=== PATIENT | male | born 1940 | race Caucasian/White ===

== ENCOUNTER → 2020-11-24 07:20 | Outpatient (CLI) | payer MEDICARE, OTHER, SELFPAY ==
--- NOTE | 2020-11-24 07:22 | ECHOD_ITS ---
Reason For Study: CAD/ PRE-OP Procedure This was a 2D Doppler, Color Flow transthoracic echocardiogram. Exam performed in department. Left Ventricle Normal LV size. Left ventricular systolic function is normal. The estimated ejection fraction is 55 %. No regional wall motion abnormalities noted. Right Ventricle Normal RV size. Normal systolic function. Atria Normal left atrium. Normal right atrium. Mitral Valve Normal mitral valve. Tricuspid Valve Normal tricuspid valve. Aortic Valve Normal aortic valve. Trisinus/trileaflet aortic valve. Pulmonic Valve Normal pulmonic valve. Great Vessels Normal aortic root. The pulmonary artery is normal size. Normal inferior vena cava. Pericardium/Pleural No pericardial effusion. MMode/2D Measurements & Calculations LVIDd: 3.5 cm IVSd: 1.1 cm Ao root diam: 3.2 cm LVIDs: 2.6 cm LVPWd: 0.70 cm RVDd: 2.9 cm FS: 24.0 % LAV(MOD-sp4): 35.7 ml LA A4 area: 15.5 cm2 LA dimension(2D): 4.2 cm RA A4 area: 11.2 cm2 Doppler Measurements & Calculations Lat Peak E' Lazaro: 7.9 cm/sec Med Peak E' Lazaro: 3.7 cm/sec Ao V2 max: 119.1 cm/sec Ao max P.7 mmHg LV V1 max: 124.8 cm/sec PA V2 max: 138.5 cm/sec TR max lazaro: 205.3 cm/sec LV V1 max P.2 mmHg TR max P.9 mmHg ECHO/Echo Complete Interpretation Summary Normal LV size. Left ventricular systolic function is normal. The estimated ejection fraction is 55 %. Structurally normal valves. Ordering Physician: Kp Puentes Referring Physician: Ida MOTT Performed By: Kendra Mahan, MANUELACS, RVT
--- NOTE | 2020-11-24 13:13 | STRESSREP ---
Stress Test Report Pharmacologic myocardial perfusion stress test. 80-year-old man for preoperative evaluation for bladder surgery. Stress protocol: Resting EKG demonstrates normal sinus rhythm with a rate of 84 bpm normal intervals are noted resting blood pressure is 158/72 mmHg occasional premature ventricular complexes noted. 0.4 mg of regadenoson was infused per usual protocol followed by rapid venous saline flush injection continuous EKG monitoring was performed. The maximum heart rate attained was 113 bpm which was 80% of maximum predicted heart rate the maximum workload was 1 metabolic equivalent. At rest there were no ST or T wave changes noted to suggest abnormal flow reserve and at peak infusion nonspecific ST changes were noted. The resting blood pressure was 158/72 with a final blood pressure 146/62 mmHg. Myocardial perfusion protocol. 10.3 mCi of technetium 99m sestamibi was injected at rest. 0.4 mg of regadenoson was infused per usual protocol. At peak infusion 35.7 mCi of technetium 99m sestamibi was injected stress images were obtained stress and rest images were reconstructed and compared in the short axis vertical long and horizontal long axis. Gated images were also obtained per Perfusion SPECT analysis: Review of the stress images demonstrate normal perfusion noted in the anterior wall septum with a moderate size defect noted in the mid and basal inferolateral wall. The resting images demonstrate a similar pattern with minimal improvement around the edges of the basal inferolateral wall. The above is suggestive of a previous mid and basal inferolateral infarct with minimal nichol-infarct ischemia. No significant areas of reversibility are noted. Gated SPECT analysis: The gated ejection fraction is 60%. Conclusion: Pharmacologic myocardial perfusion stress test with evidence of previous basal/mid inferolateral infarct. This is a medium size zone. Preserved ejection fraction. No significant ischemia noted.
== END ==
PROVIDERS: PCP Physician Assistant; Referring Provider Internal Medicine Cardiovascular Disease; Visit Provider Internal Medicine Cardiovascular Disease
DX: I25.10 Atherosclerotic heart disease of native coronary artery without angina pectoris (principal); I73.9 Peripheral vascular disease, unspecified; I10 Essential (primary) hypertension; Z95.5 Presence of coronary angioplasty implant and graft
CPT/HCPCS: 78452; 93017; 93306; A9500; A4216; J2785

== ENCOUNTER 2020-12-08 05:22 | Day surgery (SDC) | payer MEDICARE, OTHER, SELFPAY ==
[2020-12-02 11:36] LABS: Hematocrit 46.7 % (40-54); Hemoglobin 16.1 g/dL (13.0-16.5); Mean Corp Hgb Conc 34.5 g/dL (32-36); Mean Corpuscular Volume 89.8 fL (80-94); Platelet Count 245 K/mm3 (150-450); RBC Distribution Width CV 13.7 % (11.6-14.6); RBC Distribution Width SD 45.8 fl (35.1-43.9); White Blood Count 8.5 K/mm3 (4.4-11.0)
[2020-12-02 11:48] LABS: Prothrombin Time (Protime)PT. 12.8 SECONDS (11.7-14.9)
[2020-12-02 12:01] LABS: AST(SGOT) 15 U/L (15-37); Alanine Aminotransfer ALT/SGPT 26 U/L (16-61); Albumin, Serum 3.3 g/dL (3.2-5.0); Alkaline Phosphatase 97 U/L (45-117); Anion Gap 8 (5-15); BUN 22 mg/dL (7-18); BUN/Creat Ratio 25.1 RATIO (10-20); Calcium,Total 9.2 mg/dL (8.5-10.1); Chloride 111 mmol/L (98-107); Creatinine, Serum 0.88 mg/dL (0.70-1.30); EST Glomerular Filtration Rate 89 mL/min (>60); Est Glom Filt Rate - Afr Amer 108 mL/min (>60); Globulin 3.9 g/dL (2.2-4.2); Glucose 116 mg/dL (74-106); Potassium 3.9 mmol/L (3.5-5.1); Protein, Total 7.2 g/dL (6.4-8.2); Sodium Level 142 mmol/L (136-145)
[2020-12-08] VITALS (22 sets, daily range): BP systolic 133–185; BP diastolic 63–104; PULSE 58–79; RESP 14–20; TEMP 36.2–37.6; O2SAT 91–100; BMI 25.7
[2020-12-08] MEDS: Lactated Ringers 1,000 ML 100 ML IV ×3 (06:05→16:21)
--- NOTE | 2020-12-08 07:30 | PROST_PTH ---
PATIENT: RAMONITA EL [place] [facility] [id number] AGE/SX: 80/M ROOM: RE12/08/[address]: Dr. Justice Johnson MD : 1940 BED: DIS: 12/09/2020 SPEC #: [id number] RECD: 12/08/20 12:52 STATUS: NATHAN RENEE #: [id number] SOLOMON: 12/08/20 07:[address]: Justice Johnson DEPT: SURGICAL PATHOLOGY RECD BY: Tracy Jacitno ENTERED: 12/09/20 09:22 SP TYPE: PROSTATE OTHR DR: KRISTI Grimaldo Tissues: Prostate, NOS Procedures: Surgery Specimen Level IV HEADER OPERATION: Laparoscopic robotic simple prostatectomy, removal of bladder PRE-OP DIAGNOSIS: BPH with lower urinary symptoms, bladder calculi TISSUE SUBMITTED: Prostate tissue MICROSCOPIC DIAGNOSIS Prostate, prostatectomy: Benign nodular hyperplasia, glandular and stromal types. Chronic inflammation with focal acute inflammation. Urothelium with chronic inflammation. No evidence of malignancy. AM:adelita 12/10/2020 MICROSCOPIC DESCRIPTION Slides are reviewed. GROSS DESCRIPTION Received in fixative is one container labeled with the patient's name and designated prostate tissue. The specimen consists of a simple prostatectomy specimen weighing 10 gm and measuring 3 x 3 x 2 cm. The specimen could not be oriented. Sections do not reveal any mass lesion and reveal solid cut surfaces. Also present in the container is a detached piece of mcknight soft tissue measuring 1 x 0.5 x 0.2 cm. The prostate is inked, serially sectioned and submitted entirely in eight cassettes from one end to another end. The detached piece of tissue is present in cassette 1. / SJ:adelita 12/09/20 TC:3 CPT: 12027
[2020-12-08] MEDS: Cefazolin 2 GM in 0.9% Normal Saline 100 ML IV (07:31)
--- NOTE | 2020-12-08 09:39 | DCINST_ITS ---
Discharge Instructions Diet Discharge Diet: No restrictions Activity Discharge Activity: May Not Drive (while taking narcotic pain medications.) Dressing / Incision Call your doctor if you observe: Fever of 101 or Higher Catheter: Cuello to leg bag and Cuello to large bag Drain: Stovall Follow Up Care Please Follow Up With: Justice Johnson MD When: Call [phone] for an appointment Test Results: Test results from this visit will be discussed in further detail at your follow-up appointment, if applicable. Discharge Plan Admission Primary Reason for Your Visit: prostatectomy Attending Provider: Justice Johnson Primary Care Provider: Ida Hatfield Discharge Orders/Prescriptions Prescriptions: New ibuprofen 600 mg tablet 600 mg PO Q6H PRN (Reason: pain) Qty: 20 RF: 0 ciprofloxacin HCl [Cipro] 500 mg tablet 500 mg PO BID Qty: 14 RF: 0 Continued hydroxyzine HCl 25 mg tablet 25 mg PO DAILY PRN (Reason: rash) RF: 0 metoprolol tartrate 100 mg tablet 100 mg PO BID RF: 0 pantoprazole [Protonix] 20 mg tablet,delayed release (DR/EC) 20 mg PO DAILY RF: 0 tamsulosin [Flomax] 0.4 MG capsule 0.4 mg PO DAILY RF: 0 amlodipine 10 MG tablet 10 mg PO DAILY RF: 0 Held clopidogrel 75 MG tablet 75 mg PO DAILY RF: 0 Hold Instructions: Resume on 12/29/20. Referrals / Follow Up: Justice Johnson MD [STAFF PHYSICIAN] - Ida Hatfield PA [Primary Care Provider] - Disposition Disposition (needs filled in before D/C Order can be placed): Home, Self Care
--- NOTE | 2020-12-08 09:39 | PCM.HP.STD ---
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 Prostate disease Renal calculi Smoker Tobacco dependence Home Medications amlodipine 10 mg PO DAILY 05/02/16 [History Last Taken 12/08/20 04:00] clopidogrel 75 mg PO DAILY 05/02/16 [History Last Taken 11/30/20] tamsulosin [Flomax] 0.4 mg PO DAILY 05/02/16 [History Last Taken 12/07/20] hydroxyzine HCl 25 mg tablet 25 mg PO DAILY PRN 11/09/20 [History Last Taken Unknown] metoprolol tartrate 100 mg tablet 100 mg PO BID tab 11/09/20 [History Last Taken 12/08/20 04:00] pantoprazole 20 mg tablet,delayed release 20 mg PO DAILY 11/09/20 [History Last Taken 12/07/20] ciprofloxacin HCl [Cipro] 500 mg PO BID #14 tab 12/08/20 [Rx Last Taken Unknown] ibuprofen 600 mg PO Q6H PRN #20 tab 12/08/20 [Rx Last Taken Unknown] Allergy/AdvReac Type Severity Reaction Status Date / Time Penicillins Allergy Hives Verified 12/08/20 05:50 Surgical History (Updated 12/01/20 @ 13:03 by Maria A Roberson) History of angioplasty of peripheral vessel (09/28/09) History of coronary artery stent placement (08/10/06) Social History Smoking Status: Current some day smoker tobacco type: cigarettes Vital Signs Vital Signs Vital Signs: 12/08/20 05:51 12/08/20 05:54 Temperature 97.5 F L Temperature Source Temporal Pulse Rate 58 L Respiratory Rate 18 Respiratory Pattern Normal Blood Pressure 156/66 H Blood Pressure Mean 96 Blood Pressure Source Monitor Blood Pressure Position Semi-Fowlers Blood Pressure Location Right Arm Pulse Ox 97 Oxygen Delivery Method Room Air Weight Weight: 74.389 kg Body Mass Index (BMI) 25.7 Results Lab / Micro Data Result Diagrams: 12/02/20 10:24 12/02/20 10:24
--- NOTE | 2020-12-08 09:40 | OP.PCM_ITS ---
Report of Operation Date of Procedure: 12/08/20 Pre-Operative Diagnosis: BPH with bladder stone Post-Operative Diagnosis: same Surgery/Procedure Performed:: laparoscopic robotic assisted prostatectomy and removal of bladder stone. Description of Surgical Findings:: Patient presented to the hospital for treatment of his prostate and bladder stone with prostatectomy. We discussed the risk of the surgery including the risk of general anesthetic, risk of bleeding, risk of infection, and risk of formation of hernia either incisional hernia or inguinal hernia. After long discussion with the patient the preoperative setting and also reviewed this in the preop area patient signed the consent form and we proceeded Patient was taken back to the operating room he was identified, time out procedure was performed and he was placed supine on the table he underwent general anesthesia with intubation. The abdomen was shaved prepped and draped in usual sterile fashion as well as the penis and testicles. A 16 Indonesian catheter was placed into the bladder with clear return of urine. I then made an incision in the umbilicus and dissected down to the fascia advance a Veress needle into the peritoneal cavity and insufflated the peritoneal cavity with CO2 gas. I then placed a 12 mm trocar above the umbilicus. I then visualized the placement of the rest of the trochars, I placed a right arm robotic trocar, and air seal trocar, a suction port 5 mm trocar. And on the left side I placed 2 robotic arms. Once all the trochars were in placed the patient was put in steep Trendelenburg. And the robot was docked the arms were docked and then I placed the 0 degree camera through the robotic arm and also used a 30 degree camera during certain parts of the case. I used scissors in the right arm, prograsp in the third arm, and a bipolar in the second arm. Initial dissection was to free the sigmoid colon off the lateral wall this was done by meticulously dissecting off the peritoneum and the sigmoid colon off the left lateral wall. This then allowed the prograsp to retract the sigmoid colon out of the pelvis. I then went below the bladder and identified the vas deferens incised the peritoneum over the vas deferens and traced the vas deferens below the bladder to the prostate and identified the right and left vasa deferens. Below behind the vas deferens then the seminal vesicles were identified. I then dissected the bruce inal vesicle free using pinpoint electrocautery and then we identified the other seminal vesicle and then dissected this using pinpoint electrocautery I then elevated the vas deferens and several vesicles off the prostate and was able to sweep the Denonvilliers' fascia off the prostate posteriorly all the way up to the apex of the prostate. Working laterally I made sure I went as lateral as possible to sweep the Denonilliers' fascia off the posterior aspect of the prostate and worked my way back, I then transected the vas deferens and the left and right side the seminal vesicles were then dissected free. And then I pulled out of the pelvis. The bladder was incised in the midline and the bladder was retracted laterally both sides using the Prolene stitch with a Peter needle. Once the bladder was open then I went in and remove the very large bladder stone and put her in an Endo Catch bag the Endo Catch bag was then removed later on in the case. We then identified the prostate the lateral edges of the prostate was identified and then we enucleated the prostate from the subcapsular space prostate was completely enucleated and then the had a nice wide open channel from the bladder neck into the urethra I did not have to do a bladder neck reconstruction and no anastomosis was done since the prostate was enucleated, I then placed a new catheter into the bladder, an Indonesian platinum tip catheter flushed the bladder and there was no leakage from the anastomosis I put 10 cc in the balloon and pulled it up pulled back gently. I then ensured that there was no bleeding from the dorsal vein complex no bleeding from the neurovascular bundles FloSeal was placed as necessary once hemostasis was ensured and adequate then I placed the bladder back in position in the pelvis the prostate was exchanged to the camera port I closed the air seal port with a 10 12 Armando Lewis stitch. And the extracted the prostate through the umbilicus. The robot was undocked all the ports were removed under direct visualization then closed the extraction site with 0 Vicryl with a CT1 needle once the extraction site was closed. I then closed all the incision with subcuticular stitches with 4-0 Monocryl and then bandages were placed on the incisions catheter was flushed to make sure it was draining well there was no clots and it was crystal clear patient's anesthetic was reversed he was extubated and taken back to the PACU in stable condition all the needles and sponges and instruments were accounted for. Blood loss was minimal and the drain was a 18 Indonesian Flores catheter. No other surgical drain was left. I was present during the entire case. Type of Anesthesia: General Drains: 20 fr flores
--- NOTE | 2020-12-08 16:47 | CASEMGMT ---
Surgery scheduling form and surgery schedule indicate procedure to be SDC. Noted inpatient order placed. TC to Dr. Johnson who states SDC status was intended and plan for pt to be dc'd tomorrow. Clarification order placed.
[2020-12-08] MEDS: Tamsulosin HCl 0.4 MG Capsule PO (17:14)
[2020-12-08] MEDS: 0.9% Normal Saline 1,000 ML 150 ML IV (17:14)
[2020-12-08] MEDS: Ibuprofen 600 MG Tablet PO ×2 (17:14→23:29)
[2020-12-08] MEDS: 0.9% Saline Lock 10 ML Syringe IV (17:15)
[2020-12-08] MEDS: Pantoprazole Sodium 20 MG Tablet PO (18:27)
[2020-12-08] MEDS: Ciprofloxacin 400 MG/200 ML BAG 200 MG IV (22:33)
[2020-12-08] MEDS: Metoprolol Tartrate 100 MG Tablet PO (22:33)
[2020-12-09] MEDS: 0.9% Normal Saline 1,000 ML 150 ML IV ×2 (00:27→06:53)
[2020-12-09 02:26] VITALS: BP 128/56; PULSE 60; RESP 16; TEMP 36.8; O2SAT 93
[2020-12-09 06:05] VITALS: BP 144/58; PULSE 60; RESP 16; TEMP 37; O2SAT 92
[2020-12-09] MEDS: Ibuprofen 600 MG Tablet PO (06:20)
[2020-12-09 08:00] VITALS: BP 155/58; PULSE 67; RESP 16; TEMP 36.7; O2SAT 91
[2020-12-09] MEDS: Ciprofloxacin 400 MG/200 ML BAG 200 MG IV (09:01)
[2020-12-09 09:02] VITALS: BP 155/58; PULSE 67
[2020-12-09] MEDS: Metoprolol Tartrate 100 MG Tablet PO (09:02)
[2020-12-09] MEDS: amLODIPine 10 MG Tablet PO (09:02)
[2020-12-09] MEDS: Pantoprazole Sodium 20 MG Tablet PO (09:05)
[2020-12-09 10:00] VITALS: BP 156/66
--- NOTE | 2020-12-09 11:06 | PHA.DC.MC ---
Pharmacy Service has performed discharge medication reconciliation and counseling for this patient. The patient was counseled on the following discharge medications and changes in medications for homegoing were reviewed. 1. CIPRO 2. IBUPROFEN The Reason for Use, instructions for use, and potential side effects were reviewed for all new medications. The patient's questions regarding all of their medications were answered. The patient was able to verbally demonstrate an understanding of their discharge medications. Home Medications amlodipine 10 mg PO DAILY 05/02/16 clopidogrel 75 mg PO DAILY 05/02/16 tamsulosin [Flomax] 0.4 mg PO DAILY 05/02/16 hydroxyzine HCl 25 mg tablet 25 mg PO DAILY PRN 11/09/20 metoprolol tartrate 100 mg tablet 100 mg PO BID tab 11/09/20 pantoprazole 20 mg tablet,delayed release 20 mg PO DAILY 11/09/20 ciprofloxacin HCl [Cipro] 500 mg PO BID #14 tab 12/08/20 ibuprofen 600 mg PO Q6H PRN #20 tab 12/08/20 The patient's discharge medication list was reviewed for discrepancies and discrepancies were resolved.
== END 2020-12-09 07:28 | disposition home or self-care (01) ==
LOC: SDC 05:23 → AC 05:23 → MS3 15:37
PROVIDERS: Anesthesiology; PCP Physician Assistant; Referring Provider Urology; Visit Provider Urology
PROC: 0VT04ZZ Resection of Prostate, Percutaneous Endoscopic Approach (ICD-10-PCS; CPT 55866; principal; 2020-12-08 07:10)
DX: N21.0 Calculus in bladder (principal); N41.0 Acute prostatitis; N41.1 Chronic prostatitis; N40.1 Benign prostatic hyperplasia with lower urinary tract symptoms; I25.10 Atherosclerotic heart disease of native coronary artery without angina pectoris; J44.9 Chronic obstructive pulmonary disease, unspecified; I11.9 Hypertensive heart disease without heart failure; K21.9 Gastro-esophageal reflux disease without esophagitis; I73.9 Peripheral vascular disease, unspecified; F17.210 Nicotine dependence, cigarettes, uncomplicated; Z79.899 Other long term (current) drug therapy; Z23 Encounter for immunization
CPT/HCPCS: 00870; 51050; 55899; 36415; 80048; 80076; 85027; 85610; 85730; 88305; 88309; G0008; J7030; J7120; 90686; A4216; J0744

== ENCOUNTER 2021-05-20 13:40 | Emergency (ER) | payer MEDICARE, OTHER, SELFPAY ==
[2021-05-20 13:41] VITALS: BP 160/82; PULSE 78; RESP 16; TEMP 36.8; O2SAT 96; BMI 24.3
--- NOTE | 2021-05-20 14:32 | EX.ED.UPPERE ---
HPI History of Present Illness HPI Narrative: Patient presents with a burn to his right hand that occurred today. Patient states he was using a Rototiller and lost his balance when he was trying to start the Rototiller. Patient states he put his hand out to catch himself and put his hand on the hot motor. Patient describes his pain as burning. Patient denies any paresthesias or weakness. Patient states I seem to help with it. Patient is unsure of his last tetanus. Patient denies any other injuries. Chief Complaint: Burn Informant: patient Onset/Context/Timing Onset: Today Context: Sudden Onset Timing: Continuous Worsened by: Nothing Relieved by: Ice Associated Symptoms Associated Symptoms: Negative for Parasthesia, Weakness and Loss of Funtion Narrative Tetanus Immunization: Unknown PFSH [facility] Medical History Alcohol use Alcoholism Atherosclerosis of coronary artery without angina pectoris Chronic pancreatitis COPD (chronic obstructive pulmonary disease) Easy bruising Encounter for pre-operative cardiovascular clearance Essential hypertension Excessive bleeding Gastric reflux 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 Prostate disease Renal calculi Smoker Tobacco dependence Home Medications amlodipine 10 mg PO DAILY 05/02/16 [History Last Taken 12/08/20 04:00] clopidogrel 75 mg PO DAILY 05/02/16 [History Last Taken 11/30/20] tamsulosin [Flomax] 0.4 mg PO DAILY 05/02/16 [History Last Taken 12/07/20] hydroxyzine HCl 25 mg tablet 25 mg PO DAILY PRN 11/09/20 [History Last Taken Unknown] metoprolol tartrate 100 mg tablet 100 mg PO BID tab 11/09/20 [History Last Taken 12/08/20 04:00] pantoprazole 20 mg tablet,delayed release 20 mg PO DAILY 11/09/20 [History Last Taken 12/07/20] ciprofloxacin HCl [Cipro] 500 mg PO BID #14 tab 12/08/20 [Rx Last Taken Unknown] ibuprofen 600 mg PO Q6H PRN #20 tab 12/08/20 [Rx Last Taken Unknown] Allergy/AdvReac Type Severity Reaction Status Date / Time Penicillins Allergy Hives Verified 05/20/21 13:41 Surgical History History of angioplasty of peripheral vessel (09/28/09) History of coronary artery stent placement (08/10/06) Social History (Updated 05/20/21 @ 14:[address] Mello Briceño DO) Smoking Status: Heavy Smoker (>10/day) ROS ROS ED Constitutional Constitutional ED: Denies chills or fever(s) Eyes Eyes: Denies blurry vision or change in vision ENT ENT ED: Denies rhinorrhea or sore throat Cardiovascular Cardiovascular: Denies chest pain or palpitations Respiratory/Chest Respiratory/Chest: Denies cough or dyspnea Gastrointestinal Gastrointestinal: Denies nausea or vomiting Genitourinary Genitourinary ED: Denies dysuria or hematuria Musculoskeletal Musculoskeletal: Denies back pain or neck pain Integumentary Denies abscess or rash Neurologic Neurologic: Denies headache(s) or weakness Allergic/Immunologic Allergic/Immunologic ED: Denies mouth swelling or urticaria EXAM Physical Exam Const Vital Signs: 05/20/21 13:41 05/20/21 14:21 Temperature 98.3 F Temperature Source Temporal Pulse Rate 78 Respiratory Rate 16 Respiratory Effort Normal Non-Labored Respiratory Depth Normal Respiratory Pattern Normal Blood Pressure 160/82 H Blood Pressure Mean 108 Pulse Ox 96 Oxygen Delivery Method Room Air Positive well nourished and well developed General Appearance ED: well developed and NAD Neck full ROM and supple Extremity full ROM Neuro oriented x3, CN's II-XII intact bilaterally, moves all extremities, no focal motor deficits and no sensory deficits noted Sensorium / Orientation: alert Skin Skin Narrative: There is some erythema and tenderness over the palmar aspect of the right hand over the thenar eminence. There is no blister formation noted. Sensation was intact to light touch in all areas of the burn. There is no discharge or drainage. There is full range of motion of the right hand. Capillary refill is less than 2 seconds in all digits. MDM MDM MDM Narrative Medical decision making narrative: Patient was given a tetanus booster. Patient was given a bacitracin dressing. Patient was instructed to change dressing twice daily. Patient was instructed to follow-up with his primary care physician in 5 to 7 days. Patient was instructed return if worse in any way. Patient understood and was agreeable with the plan. All questions were answered. Discharge Plan Triage Chief Complaint: Burn ED Provider: Mello Briceño Dx/Rx/DC Orders Clinical Impression: First degree burn of palm of right hand, Tobacco dependence, Essential hypertension Instructions: ED Burn, First-Degree Prescriptions: No Action hydroxyzine HCl 25 mg tablet 25 mg PO DAILY PRN (Reason: rash) RF: 0 metoprolol tartrate 100 mg tablet 100 mg PO BID RF: 0 pantoprazole [Protonix] 20 mg tablet,delayed release (DR/EC) 20 mg PO DAILY RF: 0 clopidogrel 75 MG tablet 75 mg PO DAILY RF: 0 Hold Instructions: Resume on 12/29/20. tamsulosin [Flomax] 0.4 MG capsule 0.4 mg PO DAILY RF: 0 amlodipine 10 MG tablet 10 mg PO DAILY RF: 0 ibuprofen 600 mg tablet 600 mg PO Q6H PRN (Reason: pain) Qty: 20 RF: 0 ciprofloxacin HCl [Cipro] 500 mg tablet 500 mg PO BID Qty: 14 RF: 0 Primary Care Provider: Ida Hatfield Referrals: Ida Hatfield, PA [Primary Care Provider] - 3-5 Days Disposition Disposition: Home, Self Care
[2021-05-20] MEDS: Diphth,Pertuss(Acell),Tet Vac 0.5 ML Vial IM (14:48)
[2021-05-20 14:52] VITALS: PULSE 82; RESP 17; O2SAT 98
== END 2021-05-20 15:10 | disposition home or self-care (01) ==
PROVIDERS: Emergency Provider Emergency Medicine; PCP Physician Assistant; Visit Provider Emergency Medicine
DX: T23.151A Burn of first degree of right palm, initial encounter (principal); J44.9 Chronic obstructive pulmonary disease, unspecified; I10 Essential (primary) hypertension; F17.200 Nicotine dependence, unspecified, uncomplicated; I25.10 Atherosclerotic heart disease of native coronary artery without angina pectoris; K21.9 Gastro-esophageal reflux disease without esophagitis; X17.XXXA Contact with hot engines, machinery and tools, initial encounter; Y93.89 Activity, other specified; Y99.9 Unspecified external cause status; Y92.9 Unspecified place or not applicable; Z79.899 Other long term (current) drug therapy; I25.2 Old myocardial infarction; N40.1 Benign prostatic hyperplasia with lower urinary tract symptoms; N13.8 Other obstructive and reflux uropathy; Z79.02 Long term (current) use of antithrombotics/antiplatelets; Z23 Encounter for immunization
CPT/HCPCS: 90471; 90715; 99283

== ENCOUNTER 2021-12-31 18:38 | Emergency (ER) | payer MEDICARE, OTHER, SELFPAY ==
[2021-12-31] VITALS (10 sets, daily range): BP systolic 111–146; BP diastolic 61–82; PULSE 60–88; RESP 13–20; TEMP 36.4; O2SAT 88–93; BMI 22.1
--- NOTE | 2021-12-31 19:18 | EX.ED.SAOD ---
HPI History of Present Illness Chief Complaint: Overdose Informant: patient Limited: intoxicated Onset/Context/Timing Onset: Today Context: Gradual Onset Timing: Continuous Worsened by: Alcohol Relieved by: Nothing Associated Symptoms Associated Symptoms: Positive for vomiting* and suicidal ideation; Negative for diarrhea*, fever*, rash*, seizure, tremor, palpatations, change in mental status or homicidal ideation Narrative Narrative: Patient presents with overdose on alcohol and hydroxyzine. Patient states he took several hydroxyzine tablets. Patient does not know exactly how many. Patient states he took these because he wanted to kill himself. Patient states he no longer feels that way. Patient states his depression symptoms were worse with alcohol. Patient states he has drank a lot of alcohol tonight. Patient admits to some nausea and vomiting. Patient is unsure if he vomited the hydroxyzine tablets up. 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 Prostate disease Renal calculi Smoker Tobacco dependence Home Medications amlodipine 10 mg tablet 10 mg PO DAILY 05/02/16 [History Last Taken 12/08/20 04:00] clopidogrel 75 mg tablet 75 mg PO DAILY 05/02/16 [History Last Taken 11/30/20] tamsulosin 0.4 mg capsule (Flomax) 0.4 mg PO DAILY 05/02/16 [History Last Taken 12/07/20] hydroxyzine HCl 25 mg tablet 25 mg PO DAILY PRN rash 11/09/20 [History Last Taken Unknown] metoprolol tartrate 100 mg tablet 100 mg PO BID 11/09/20 [History Last Taken 12/08/20 04:00] pantoprazole 20 mg tablet,delayed release (Protonix) 20 mg PO DAILY 11/09/20 [History Last Taken 12/07/20] ibuprofen 600 mg tablet 600 mg PO Q6H PRN pain #20 tabs 12/08/20 [Rx Last Taken Unknown] Allergy/AdvReac Type Severity Reaction Status Date / Time Penicillins Allergy Hives Verified 12/31/21 18:46 Surgical History History of angioplasty of peripheral vessel (09/28/09) History of coronary artery stent placement (08/10/06) Social History Smoking Status: Heavy Smoker (>10/day) ROS ROS ED Review of Systems ROS Unobtainable: due to mental condition Cardiovascular Cardiovascular: Denies chest pain Respiratory/Chest Respiratory/Chest: Denies cough or dyspnea Gastrointestinal Gastrointestinal: Reports nausea and vomiting Genitourinary Genitourinary ED: Denies dysuria or urinary frequency Musculoskeletal Musculoskeletal: Denies back pain or neck pain Integumentary Denies abscess or rash Neurologic Neurologic: Denies headache(s) or weakness Psychiatric Psychiatric: Reports suicidal ideation EXAM Physical Exam Const Vital Signs: 12/31/21 18:40 12/31/21 18:49 12/31/21 19:33 Temperature 97.6 F L Temperature Source Temporal Pulse Rate 88 60 68 Respiratory Rate 20 H 16 18 Blood Pressure 146/68 H 116/82 H Blood Pressure Mean 94 93 Pulse Ox 93 92 Oxygen Delivery Method Room Air Room Air Oxygen Flow Rate (L/min) 12/31/21 19:15 12/31/21 20:15 12/31/21 21:15 Temperature Temperature Source Pulse Rate 61 63 60 Respiratory Rate 17 13 13 Blood Pressure 122/66 H 122/61 H 111/64 Blood Pressure Mean 84 81 79 Pulse Ox 92 89 91 Oxygen Delivery Method Room Air Room Air Nasal Cannula Oxygen Flow Rate (L/min) 2 12/31/21 22:58 Temperature Temperature Source Pulse Rate 71 Respiratory Rate 15 Blood Pressure Blood Pressure Mean Pulse Ox Oxygen Delivery Method Oxygen Flow Rate (L/min) Positive well nourished and well developed General Appearance ED: well developed and NAD HEENT Reports dry mucous membranes Mouth ED: Yes dry mucous membranes Mouth: dry mucous membranes Eyes PERRL and EOMs intact bilaterally Neck supple and no JVD Resp normal respiratory effort Auscultation: diminished lung sounds Cardio regular rate and regular rhythm GI soft to palpation and non-tender Neuro CN's II-XII intact bilaterally and no sensory deficits noted Sensorium / Orientation: alert Motor Exam: strength 5/5 throughout Psych Mood & Affect: depressed MDM MDM MDM Narrative Medical decision making narrative: Patient was given a DuoNeb aerosol here. Patient was given IV fluids. CBC shows a mild leukocytosis of 13.2. Comprehensive metabolic profile was within normal limits. Serum alcohol level was elevated at 136. Urine tox screen was negative. Portable 1 view chest x-ray was obtained. On my interpretation, lung dillard are clear. There is normal cardiac silhouette. Bony thorax is normal. There is no acute process noted. Radiologist also interpreted the x-ray and agrees. Patient fell asleep here in the room with sleeping, his oxygen saturation dropped to 89. Patient was placed on nasal cannula at 2 L. Patient was given a repeat albuterol aerosol. I woke the patient up. I turned patient's oxygen off. His oxygen saturation went from 94 to 91. Patient will be ambulated with a pulse oximeter. If the patient is able to maintain oxygen saturation above 90% while walking, he will be medically cleared for psychiatric evaluation. Lab Data Attestation: I reviewed the patient's lab results. Labs: Laboratory Results - last 24 hr 12/31/21 12/31/21 12/31/21 19:45 19:45 19:45 WBC 13.2 H RBC 4.96 Hgb 16.7 H Hct 45.4 MCV 91.5 MCH 33.7 H MCHC 36.8 H RDW Std Deviation 41.6 RDW Coeff of Krishna 12.5 Plt Count 213 MPV 10.9 Immature Gran % (Auto) 0.400 Neut % (Auto) 87.9 H Lymph % (Auto) 7.2 L [place] % (Auto) 3.7 Eos % (Auto) 0.3 Baso % (Auto) 0.5 Absolute Neuts (auto) 11.6 H Absolute Lymphs (auto) 0.95 Nucleated RBC % 0 Sodium 141 Potassium 3.6 Chloride 107 Carbon Dioxide 23.0 Anion Gap 11 BUN 20 H Creatinine 1.00 Estim Creat Clear Calc 63.42 Est GFR (MDRD) Af Amer 92 Est GFR (MDRD) Non-Af 76 BUN/Creatinine Ratio 20.0 Glucose 150 H Calcium 9.4 Total Bilirubin 0.40 AST 18 ALT 27 Alkaline Phosphatase 85 Total Protein 6.7 Albumin 3.4 Globulin 3.3 Albumin/Globulin Ratio 1.0 Urine Opiates Screen Urine Methadone Screen Ur Barbiturates Screen Ur Phencyclidine Scrn Ur Amphetamines Screen MDMA (Ecstasy) Screen U Benzodiazepines Scrn Urine Cocaine Screen U Cannabinoids Screen Ur Drug Screen Comment Ethyl Alcohol 136.0 12/31/21 21:32 WBC RBC Hgb Hct MCV MCH MCHC RDW Std Deviation RDW Coeff of Krishna Plt Count MPV Immature Gran % (Auto) Neut % (Auto) Lymph % (Auto) [place] % (Auto) Eos % (Auto) Baso % (Auto) Absolute Neuts (auto) Absolute Lymphs (auto) Nucleated RBC % Sodium Potassium Chloride Carbon Dioxide Anion Gap BUN Creatinine Estim Creat Clear Calc Est GFR (MDRD) Af Amer Est GFR (MDRD) Non-Af BUN/Creatinine Ratio Glucose Calcium Total Bilirubin AST ALT Alkaline Phosphatase Total Protein Albumin Globulin Albumin/Globulin Ratio Urine Opiates Screen NEGATIVE Urine Methadone Screen NEGATIVE Ur Barbiturates Screen NEGATIVE Ur Phencyclidine Scrn NEGATIVE Ur Amphetamines Screen NEGATIVE MDMA (Ecstasy) Screen NEGATIVE U Benzodiazepines Scrn NEGATIVE Urine Cocaine Screen NEGATIVE U Cannabinoids Screen NEGATIVE Ur Drug Screen Comment Ethyl Alcohol Radiography Diagnostic Testing: Clinical Impression(s) from Imaging Studies Chest X-Ray 12/31/21 19:55 IMPRESSION: No radiographic evidence of acute cardiopulmonary disease. Electronically Signed: Ashok Babin MD at 20:38 EST , Discharge Plan Triage Chief Complaint: Overdose ED Provider: Mello Briceño Dx/Rx/DC Orders Prescriptions: No Action hydroxyzine HCl 25 mg tablet 25 mg PO DAILY PRN (Reason: rash) metoprolol tartrate 100 mg tablet 100 mg PO BID Label Comments: TAKE 1 TABLET BY MOUTH TWICE DAILY. pantoprazole [Protonix] 20 mg tablet,delayed release (DR/EC) 20 mg PO DAILY clopidogrel 75 MG tablet 75 mg PO DAILY Hold Instructions: Resume on 12/29/20. tamsulosin [Flomax] 0.4 MG capsule 0.4 mg PO DAILY amlodipine 10 MG tablet 10 mg PO DAILY ibuprofen 600 mg tablet 600 mg PO Q6H PRN (Reason: pain) Qty: 20 0RF Primary Care Provider: Ida Hatfield Referrals: Ida Hatfield PA [Primary Care Provider] -
[2021-12-31] MEDS: Ipratropium/Albuterol Sulfate 3 ML AMPUL.NEB INHALATION (19:30)
[2021-12-31] MEDS: 0.9% Normal Saline 1,000 ML 1000 ML IV (19:35)
[2021-12-31 19:53] LABS: Absolute Lymphocyte Count 0.95 X10^3/uL (0.83-4.51); Absolute Neutrophil Count 11.6 X10^3/uL (2.0-7.7); Basophil# 0.06 X10^3/uL; Basophil% 0.5 % (0-1); Eosinophil# 0.04 X10^3/uL; Eosinophils% 0.3 % (0-5); Hematocrit 45.4 % (40-54); Hemoglobin 16.7 g/dL (13.0-16.5); Lymphocyte # 0.95 X10^3/ul (0.83-4.51); Lymphocyte % 7.2 % (19-41); Mean Corp Hgb Conc 36.8 g/dL (32-36); Mean Corpuscular Hgb 33.7 pg (27.0-32.0); Mean Corpuscular Volume 91.5 fL (80-94); Mean Platelet Vol. 10.9 fl (6.2-12.0); Monocyte# 0.49 X10^3/uL; Monocyte% 3.7 % (0-10); NRBC Flagged by Analyzer 0 % (0-5); Neutrophil % 87.9 % (47-70); Platelet Count 213 K/mm3 (150-450); RBC Distribution Width CV 12.5 % (11.6-14.6); RBC Distribution Width SD 41.6 fl (35.1-43.9); Red Blood Count 4.96 M/mm3 (4.6-6.2); White Blood Count 13.2 K/mm3 (4.4-11.0)
--- NOTE | 2021-12-31 19:55 | RAD_ITS ---
EXAM: XR CHEST, 1 VIEW CLINICAL INDICATION: Cough TECHNIQUE: Frontal view of the chest. This report was created using [employer] report generation technology. COMPARISON: 05/03/2013 FINDINGS: LUNGS AND PLEURAL SPACES: Unremarkable. No consolidation or edema. No pneumothorax. No effusion. HEART: Unremarkable. Cardiac silhouette not enlarged. MEDIASTINUM: Central airways and mediastinal contour are unremarkable. BONES/JOINTS: Unremarkable. SOFT TISSUES: Unremarkable. RAD/Chest 1 View (Portable) IMPRESSION: No radiographic evidence of acute cardiopulmonary disease. Electronically Signed: Ashok Babin MD at 20:38 EST ,
[2021-12-31 20:13] LABS: AST(SGOT) 18 U/L (15-37); Alanine Aminotransfer ALT/SGPT 27 U/L (16-61); Albumin, Serum 3.4 g/dL (3.2-5.0); Alkaline Phosphatase 85 U/L (45-117); Anion Gap 11 (5-15); BUN 20 mg/dL (7-18); Calcium,Total 9.4 mg/dL (8.5-10.1); Chloride 107 mmol/L (98-107); EST Glomerular Filtration Rate 76 mL/min (>60); Est Glom Filt Rate - Afr Amer 92 mL/min (>60); Estimated Creatinine Clearance 63.42 ml/min; Globulin 3.3 g/dL (2.2-4.2); Glucose 150 mg/dL (74-106); Potassium 3.6 mmol/L (3.5-5.1); Protein, Total 6.7 g/dL (6.4-8.2); Sodium Level 141 mmol/L (136-145)
--- NOTE | 2021-12-31 21:29 | CM.ED ---
SW Note SW contacted Pricilla from [facility] to report patient had not had assessment completed and was not medically clear. Bertha Kendall JBOSS DEVELOPER, [place]
[2021-12-31 22:18] LABS: Amphetamine Urine VISTA NEGATIVE (<1000 ng/mL); Barbiturate Urine VISTA NEGATIVE (< 200 ng/mL); Benzodiazepine Urine VISTA NEGATIVE (< 200 ng/mL); Cocaine Urine VISTA NEGATIVE (< 300 ng/mL); Ecstacy Urine VISTA NEGATIVE (< 500 ng/mL); Methadone Urine VISTA NEGATIVE (< 300 ng/mL); PCP Urine VISTA NEGATIVE (< 25 ng/mL); THC Urine VISTA NEGATIVE (< 50 ng/mL); Vista UDS pH Range 6
[2021-12-31] MEDS: Albuterol 2.5 MG/3 ML VIAL.NEB. INHALATION (22:57)
[2022-01-01] VITALS (8 sets, daily range): BP systolic 128–155; BP diastolic 59–67; PULSE 73–88; RESP 13–22; TEMP 36.7; O2SAT 88–93
[2022-01-01 05:25] LABS: Alcohol, Blood (Medical)-Serum < 3.0 mg/dL
--- NOTE | 2022-01-01 05:51 | ED.RN ---
[facility] CALLED FOR ASSESSMENT @ [id number]
--- NOTE | 2022-01-01 08:12 | ED.RN ---
[facility] CALLED WITH UPDATE, PT PENDING ACCEPTANCE AT [facility].
== END 2022-01-01 11:13 ==
PROVIDERS: Emergency Medicine; Emergency Provider Emergency Medicine; PCP Physician Assistant; Visit Provider Emergency Medicine
DX: T43.592A Poisoning by other antipsychotics and neuroleptics, intentional self-harm, initial encounter (principal); J44.9 Chronic obstructive pulmonary disease, unspecified; T59.892A Toxic effect of other specified gases, fumes and vapors, intentional self-harm, initial encounter; R11.2 Nausea with vomiting, unspecified; I25.10 Atherosclerotic heart disease of native coronary artery without angina pectoris; R45.851 Suicidal ideations; F17.200 Nicotine dependence, unspecified, uncomplicated; I10 Essential (primary) hypertension
CPT/HCPCS: 71045; 80053; 80307; 82077; 85025; 94640; 96360; 99283; A4216

== ENCOUNTER → 2022-09-08 | Outpatient (CLI) | payer MEDICARE, OTHER, SELFPAY ==
--- NOTE | 2022-09-08 13:29 | CT_ITS ---
HISTORY: Stricture of artery, poor circulation in bilateral legs.. TECHNIQUE: Axial CT angiography multi-detector data acquisition was obtained from the abdomen and pelvis to the bilateral lower extremities following intravenous administration of 1 mL Isovue 370. Axial images and MIP images were reconstructed from the axial data set. Post-processing of the angiographic images was performed, with multiplanar reformation and 3D reconstruction. Individualized dose optimization techniques were used for this CT. 1023 images. COMPARISON: 07/31/2014 Descriptors of Narrowing: None (0%) Mild (< 50%) Moderate (50-70%) Severe (70-90%) Subtotal/Total Occlusion (90-100%) Non-Evaluable (technically non-diagnostic) FINDINGS: LOWER CHEST: Chronic reticular scarring in the lung bases. Coronary artery disease noted. BOWEL: Bowel including appendix nondilated. Colonic diverticulosis without acute diverticulitis. PERITONEUM: No significant free fluid. LIVER: 1.5 cm cyst in the left lobe, increased in size from prior. GALLBLADDER: Gallbladder present. SPLEEN: Calcified granulomas. Nonenlarged. PANCREAS: Mild atrophy with scattered small calcifications, compatible with chronic pancreatitis. KIDNEYS: 4 cm right renal cyst with internal calcification, mildly increased in size. Small left renal cysts. No hydronephrosis. ADRENAL GLANDS: Chronic left adrenal nodularity. PELVIC ORGANS: Mildly enlarged prostate gland with calcifications. OSSEOUS STRUCTURES: Degenerative change and osteopenia. 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 No acute retroperitoneal hematoma. CELIAC AXIS/SUPERIOR MESENTERIC ARTERY: Atherosclerosis and narrowing with approximately 60% stenosis. INFERIOR MESENTERIC ARTERY: Medial thrombus with greater than 50% stenosis proximally. RENAL ARTERIES: Moderate calcified plaque bilaterally. Right common iliac artery: No significant stenosis. Mildly ectatic at 1.5 cm. Right external iliac artery: Calcified and noncalcified plaque with approximately 50% stenosis. Right internal iliac artery: Atherosclerosis and narrowing noted. Left common iliac artery: Calcified plaque with less than 50% stenosis. Left external iliac artery: Calcified plaque with patent stent distally. 11 mm ectasia distally. Left internal iliac artery: Calcified plaque without occlusion. RIGHT LOWER EXTREMITY Right common femoral artery: Calcified plaque with less than 50% stenosis. Right profundus femoris: Calcified plaque without significant stenosis. Right superficial femoral: Long occluded segment. Reconstitution of flow distally via collateral. Right popliteal artery: Calcified plaque without occlusion. Right three-vessel runoff: Calcified plaque with patent 2 vessel runoff involving the anterior tibial and peroneal arteries again seen. 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 OTHER: Small Orlando''s cyst cyst. LEFT LOWER EXTREMITY Left common femoral artery: Patent. Surgical clips in the left groin. Left profundus femoris: Patent. Left superficial femoral: Long segment occlusion with reconstitution via collateral and moderate stenosis distally. Left popliteal artery: Calcified plaque without high-grade stenosis. Left three-vessel runoff: Calcified plaque with patent 2 vessel runoff with flow in the anterior tibial and peroneal arteries followed into the foot. 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 CT/CTA Abd w/Runoff W/WO Contrast IMPRESSION: Long segment occlusions of the bilateral superficial femoral arteries with reconstitution of flow via collaterals bilaterally. Redemonstration of patent 2 vessel runoff of the bilateral lower extremities with chronic occlusion of the posterior tibial arteries. Mild infrarenal abdominal aortic aneurysm without acute rupture. Other findings as above. Electronically Signed: Marguerite De La Rosa MD at 13:13 EDT ,
--- NOTE | 2022-09-08 14:04 | ART_ITS ---
Reason For Study: Stricture of Artery Procedure A bilateral lower extremity continuous wave Doppler with analog waveform analysis and ankle brachial indexes. Left Segmental Pressures Left brachial= 150mmHg. Left posterior tibial artery = 101mmHg. Left dorsalis pedis artery = 116mmHg. Left digit = 63 mmHg. Right Segmental Pressures Right brachial= 156mmHg. Right posterior tibial artery = 56mmHg. Right dorsalis pedis artery = 89mmHg. Right digit = 52 mmHg. Indices The right ankle brachial index by the posterior tibial artery is 0.36. The right ankle brachial index by the dorsalis pedis is 0.57. The right digital-brachial index is 0.33. The left ankle brachial index by the posterior tibial artery is 0.65. The left ankle brachial index by the dorsalis pedis is 0.74. The left digital-brachial index is 0.40. VL/Ankle Brachial Index Interpretation Summary Bilateral moderate occlussive disease and monophasic flow and STACEY 0.57 and 0.65 . Digits 0.33 and 0.4. Ordering Physician: Willis Mera Referring Physician: Andreas Hatfield Performed By: Roz Fierro RDCS/RVT
[2022-09-08 14:10] LABS: CREATININE FINGERSTICK < 0.9 mg/dL (0.70-1.30); EGFR FINGERSTICK > 60.0000 mL/min (>60)
== END | disposition home or self-care (01) ==
LOC: CT 13:26
PROVIDERS: PCP Physician Assistant; Referring Provider Surgery Vascular Surgery; Visit Provider Surgery Vascular Surgery
DX: I77.1 Stricture of artery (principal)
CPT/HCPCS: 75635; 93922; Q9967

== ENCOUNTER → 2022-12-14 | Outpatient (CLI) | payer MEDICARE, OTHER, SELFPAY ==
--- NOTE | 2022-12-14 07:41 | ART_ITS ---
Reason For Study: stricture of artery Procedure A bilateral lower extremity continuous wave Doppler with analog waveform analysis and ankle brachial indexes. Left Segmental Pressures Left brachial= 148mmHg. Left posterior tibial artery = 101mmHg. Left dorsalis pedis artery = 97mmHg. Left digit = 57 mmHg. The left dorsalis pedis waveforms are monophasic. The left posterior tibial artery waveforms are monophasic. Right Segmental Pressures Right brachial= 151mmHg. Right posterior tibial artery = 75mmHg. Right dorsalis pedis artery = 90mmHg. Right digit = 53 mmHg. The right dorsalis pedis waveforms are monophasic. The right posterior tibial artery waveforms are monophasic. Indices The right ankle brachial index by the dorsalis pedis is .6. The right ankle brachial index by the posterior tibial artery is .5. The right digital-brachial index is .35. The left ankle brachial index by the dorsalis pedis is .64. The left ankle brachial index by the posterior tibial artery is .67. The left digital-brachial index is .38. VL/Ankle Brachial Index Interpretation Summary Bilateral moderate disease at rest with monophasic flow and STACEY 0.6 and 0.67. D igits -.35 and 0.38. Ordering Physician: Willis Mera Performed By: Shabbir Webb RVT
== END | disposition home or self-care (01) ==
LOC: CVS 07:39
PROVIDERS: PCP Physician Assistant; Referring Provider Surgery Vascular Surgery; Visit Provider Surgery Vascular Surgery
DX: I77.1 Stricture of artery (principal); I73.9 Peripheral vascular disease, unspecified
CPT/HCPCS: 93922

== ENCOUNTER 2023-05-03 13:14 | Emergency (ER) | payer OTHER, SELFPAY ==
[2023-05-03 13:16] VITALS: BP 173/99; PULSE 82; RESP 16; TEMP 36.4; O2SAT 97; BMI 20.1
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
[2023-05-03 14:15] VITALS: BP 128/76; PULSE 78; RESP 16; TEMP 36.4; O2SAT 99
== END 2023-05-03 14:44 | disposition home or self-care (01) ==
PROVIDERS: Emergency Provider Emergency Medicine; PCP Physician Assistant; Visit Provider Emergency Medicine
DX: S16.1XXA Strain of muscle, fascia and tendon at neck level, initial encounter (principal); J44.9 Chronic obstructive pulmonary disease, unspecified; M47.819 Spondylosis without myelopathy or radiculopathy, site unspecified; F17.200 Nicotine dependence, unspecified, uncomplicated; V89.9XXA Person injured in unspecified vehicle accident, initial encounter; I25.10 Atherosclerotic heart disease of native coronary artery without angina pectoris; I10 Essential (primary) hypertension; I25.2 Old myocardial infarction; Z95.5 Presence of coronary angioplasty implant and graft
CPT/HCPCS: 70450; 71045; 72125; 72170; 99282

== ENCOUNTER 2024-01-16 03:55 | Emergency (ER) | payer MEDICARE, OTHER, SELFPAY ==
[2024-01-16 03:56] VITALS: BP 161/68; PULSE 110; RESP 15; TEMP 36.6; O2SAT 99; BMI 25.6
--- NOTE | 2024-01-16 04:36 | EX.ED.DYSGE1 ---
HPI History of Present Illness Chief Complaint: Wound Informant: patient and EMS Narrative Narrative: Patient is an 83-year-old male with past medical history of hypertension and CAD. He is on Plavix secondary to this. He states that he has difficulty sleeping and this morning was in the shower when he looked down and saw bleeding from his right leg. He states that he try to get the bleeding to stop but was unsuccessful as he did not know what else to do called EMS. EMS states when they arrived he was awake and alert and hypertensive but overall stable however based on the persistent bleeding he was brought in for evaluation Patient denies any injury prior to the bleeding starting. 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) Encounter for pre-operative cardiovascular clearance Hypertrophy of prostate with urinary obstruction 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 Chronic pancreatitis Atherosclerosis of coronary artery without angina pectoris Essential hypertension Alcoholism Home Medications ?Medication ?Instructions ?Recorded ?Last Taken ?Type amlodipine 10 mg tablet 10 mg PO DAILY 05/02/16 12/08/20 04:00 History clopidogrel 75 mg tablet 75 mg PO DAILY 05/02/16 11/30/20 History tamsulosin 0.4 mg capsule (Flomax) 0.4 mg PO DAILY 05/02/16 12/07/20 History hydroxyzine HCl 25 mg tablet 25 mg PO DAILY PRN rash 11/09/20 Unknown History metoprolol tartrate 100 mg tablet 100 mg PO BID 11/09/20 12/08/20 04:00 History pantoprazole 20 mg tablet,delayed 20 mg PO DAILY 11/09/20 12/07/20 History release (Protonix) ibuprofen 600 mg tablet 600 mg PO Q6H PRN pain #20 tabs 12/08/20 Unknown Rx Allergy/AdvReac Type Severity Reaction Status Date / Time Penicillins Allergy Hives Verified 01/16/24 04:02 Surgical History History of angioplasty of peripheral vessel (09/28/09) History of coronary artery stent placement (08/10/06) Social History Smoking Status: Heavy Smoker (>10/day) ROS ROS ED Constitutional Constitutional ED: Denies chills or fever(s) ENT ENT ED: Denies sore throat Cardiovascular Cardiovascular: Reports other Details: Negative syncope ; Denies chest pain Respiratory/Chest Respiratory/Chest: Denies cough or dyspnea Gastrointestinal Gastrointestinal: Denies abdominal pain, diarrhea, nausea or vomiting Musculoskeletal Musculoskeletal: Reports other Details: Positive bleeding right ankle Integumentary Denies rash Neurologic Neurologic: Denies headache(s) Hematologic/Lymphatic Hematologic/Lymphatic: Reports easy bleeding and easy bruising EXAM Physical Exam Const Vital Signs: 01/16/24 03:56 01/16/24 04:46 Temperature 97.8 F 98.2 F Temperature Source Oral Pulse Rate 110 H 90 Respiratory Rate 15 18 Blood Pressure 161/68 H 145/73 H Blood Pressure Mean 99 97 Pulse Ox 99 96 Positive well nourished and well developed General Appearance ED: well developed HEENT HEENT Narrative: Normocephalic atraumatic Eyes PERRL and EOMs intact bilaterally General Eye ED: Negative for pale conjunctiva Neck supple Resp normal respiratory effort and clear to auscultation bilaterally Cardio regular rhythm Rate: tachycardic and other Other Details: Slightly tachycardic rate with regular rhythm Extremity Extremity Narrative: Patient has varicose veins bilaterally. There is a pinpoint rupture of a varicose vein along the medial aspect of the right ankle with minimal ooze of blood. No surrounding secondary findings to suggest infection. No changes to suggest long bone injury Neuro oriented x3, CN's II-XII intact bilaterally and no sensory deficits noted Sensorium / Orientation: alert Motor Exam: strength 5/5 throughout Psych mental status grossly normal Skin Skin Narrative: Varicose veins bilaterally with small varicose vein puncture/bleeding to the right ankle MDM MDM MDM Narrative Medical decision making narrative: Patient arrived to ER hypertensive but has a past medical history of this. He reported spontaneous bleeding from the right ankle and he denied any trauma/injury. Patient has no findings consistent with trauma and my concern for fracture or dislocation is low and I do not feel there is need for x-ray. The exam is consistent with a ruptured varicose vein and as the bleeding is minimal in nature and I have low concern for acute blood loss anemia and do not feel the need to check for laboratory studies at this time. The wound was cleaned with chlorhexidine and then 3 mL of 2% lidocaine with epinephrine were injected around the bleeding area for vasoconstriction. Next 2 silver nitrate sticks were placed over top the wound to provide chemical cauterization. Finally Dermabond was placed over top this to ensure that there would be no rebleeding. Patient was then watched in the ER for approximately 30 more minutes and there was no return of acute bleed and therefore is otherwise safe for discharge. History & Record Review Discussion w/independent historian: EMS personnel and Patient Discharge Plan Triage Chief Complaint: Wound ED Provider: Toribio Yeh Dx/Rx/DC Orders Clinical Impression: 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, Essential hypertension, Tobacco dependence Instructions: Spider and Varicose Veins Prescriptions: No Action hydroxyzine HCl 25 mg tablet 25 mg PO DAILY PRN (Reason: rash) metoprolol tartrate 100 mg tablet 100 mg PO BID Patient Comments: TAKE 1 TABLET BY MOUTH TWICE DAILY. pantoprazole [Protonix] 20 mg tablet,delayed release (DR/EC) 20 mg PO DAILY clopidogrel 75 MG tablet 75 mg PO DAILY tamsulosin [Flomax] 0.4 MG capsule 0.4 mg PO DAILY amlodipine 10 MG tablet 10 mg PO DAILY ibuprofen 600 mg tablet 600 mg PO Q6H PRN (Reason: pain) Qty: 20 0RF Primary Care Provider: Karla Baron NP Referrals: Ida Hatfield, KRISTI [Non-Staff] - Activity Restrictions/Additional Instructions: Your wound was stopped with silver nitrate cautery sticks and Dermabond. The Dermabond will fall off similar to a scab over the next 10 to 14 days. There is no special treatment needed. Continue all of your home medications as directed by your doctor and return to the ER should you have any further concerns Print Language: Albanian Disposition Disposition: Home, Self Care Discharge Date/Time: 01/16/24 04:49
[2024-01-16] MEDS: Silver Nitrate (BKC) 2 EACH TOPICAL (04:44)
[2024-01-16] MEDS: Lidocaine 2% /Epi 1:100 (20ml) 20 ML VIAL INFILT (04:45)
[2024-01-16 04:46] VITALS: BP 145/73; PULSE 90; RESP 18; TEMP 36.8; O2SAT 96
== END 2024-01-16 04:49 | disposition home or self-care (01) ==
PROVIDERS: Emergency Provider Emergency Medicine; PCP Registered Nurse; Visit Provider Emergency Medicine
DX: I83.891 Varicose veins of right lower extremity with other complications (principal); J44.9 Chronic obstructive pulmonary disease, unspecified; I25.10 Atherosclerotic heart disease of native coronary artery without angina pectoris; Z79.02 Long term (current) use of antithrombotics/antiplatelets; I10 Essential (primary) hypertension; K21.9 Gastro-esophageal reflux disease without esophagitis; F17.200 Nicotine dependence, unspecified, uncomplicated
CPT/HCPCS: 99283

== ENCOUNTER 2024-01-30 11:04 | Emergency (ER) | payer MEDICARE, OTHER, SELFPAY ==
[2024-01-30 11:05] VITALS: BP 156/107; PULSE 77; RESP 18; TEMP 36.6; O2SAT 98; BMI 25.2
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
[2024-01-30 11:26] LABS: Bacteria 0 SEEN /hpf (None Seen); Mucous, Urine 0 SEEN /hpf (<or=2+); Red Blood Cells-Urine 0 SEEN /hpf (0-5); Squamous Epithelial Cells - UA 0 SEEN /hpf (0-5); White Blood Cells 0 SEEN /hpf (0-5)
[2024-01-30 11:27] LABS: Absolute Lymphocyte Count 1.06 X10^3/uL (0.83-4.51); Absolute Neutrophil Count 9.6 X10^3/uL (2.0-7.7); Basophil# 0.06 X10^3/uL; Basophil% 0.5 % (0-1); Eosinophil# 0.02 X10^3/uL; Eosinophils% 0.2 % (0-5); Hematocrit 45.2 % (40-54); Hemoglobin 15.9 g/dL (13.0-16.5); Lymphocyte # 1.06 X10^3/ul (0.83-4.51); Lymphocyte % 9.3 % (19-41); Mean Corp Hgb Conc 35.2 g/dL (32-36); Mean Corpuscular Hgb 31.2 pg (27.0-32.0); Mean Corpuscular Volume 88.6 fL (80-94); Mean Platelet Vol. 10.5 fl (6.2-12.0); Monocyte% 5.3 % (0-10); NRBC Flagged by Analyzer 0 % (0-5); Neutrophil # 9.61 X10^3/uL (2.7-7.7); Neutrophil % 84.3 % (47-70); Platelet Count 274 K/mm3 (150-450); RBC Distribution Width CV 13.1 % (11.6-14.6); RBC Distribution Width SD 42.7 fl (35.1-43.9); White Blood Count 11.4 K/mm3 (4.4-11.0)
[2024-01-30 11:28] LABS: Color, Urine Yellow (Yellow); Glucose, Dipstick Normal (Normal); Ketone-Dipstick Negative (Negative); Leukocyte Esterase-Dipstick Negative /ul (Negative); Nitrite-Dipstick Negative (Negative); Occult Blood-Urine Negative /ul (Negative); Protein-Dipstick Negative (Negative); Specific Gravity, Urine 1.015 (1.002-1.030); Urine Bilirubin Dipstick Negative (Negative); Urine Clarity Clear (Clear); Urine Urobilinogen Normal (Normal)
[2024-01-30 11:40] LABS: Anion Gap 6 (5-15); BUN 18 mg/dL (7-18); BUN/Creat Ratio 18.3 RATIO (10-20); Chloride 102 mmol/L (98-107); Creatinine, Serum 0.98 mg/dL (0.70-1.30); EST Glomerular Filtration Rate 78 mL/min (>60); Est Glom Filt Rate - Afr Amer 94 mL/min (>60); Estimated Creatinine Clearance 56.22 ml/min; Glucose 141 mg/dL (74-106); Potassium 4.7 mmol/L (3.5-5.1); Sodium Level 133 mmol/L (136-145)
[2024-01-30 12:45] VITALS: BP 144/71; PULSE 64; RESP 16; TEMP 36.8; O2SAT 97
== END 2024-01-30 12:46 | disposition home or self-care (01) ==
PROVIDERS: Emergency Provider Emergency Medicine; PCP Registered Nurse; Visit Provider Emergency Medicine
DX: R33.9 Retention of urine, unspecified (principal); J44.9 Chronic obstructive pulmonary disease, unspecified; I25.10 Atherosclerotic heart disease of native coronary artery without angina pectoris; I10 Essential (primary) hypertension; Z95.5 Presence of coronary angioplasty implant and graft; F17.200 Nicotine dependence, unspecified, uncomplicated
CPT/HCPCS: 51702; 80048; 81001; 85025; 99284; A4216

== ENCOUNTER 2024-02-11 08:46 | Emergency (ER) | payer MEDICARE, OTHER, SELFPAY ==
[2024-02-11 08:48] VITALS: BP 173/68; PULSE 69; RESP 18; TEMP 36.8; O2SAT 98; BMI 24.5
--- NOTE | 2024-02-11 09:17 | EX.ED.DYSGE1 ---
HPI History of Present Illness Chief Complaint: Complaint Informant: patient Onset/Context/Timing Onset: Days (3) Context: Gradual Onset Timing: Continuous Quality: Burning Location: Suprapubic area Worsened by: Urination Relieved by: Nothing Narrative Narrative: Patient presents with dysuria that has been getting worse over the past 3 days. Patient was seen here on 01/30/2024 and had a Cuello catheter placed for urinary retention. Patient states he has been having difficulty following up with urology. Patient states that over the past 3 days he has been having some dysuria and some leaking around the catheter. Patient denies any fevers or chills. Patient denies any nausea or vomiting. Patient describes his pain as burning. 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) Encounter for pre-operative cardiovascular clearance Hypertrophy of prostate with urinary obstruction 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 Chronic pancreatitis Atherosclerosis of coronary artery without angina pectoris Essential hypertension Alcoholism Home Medications ?Medication ?Instructions ?Recorded ?Last Taken ?Type amlodipine 10 mg tablet 10 mg PO DAILY 05/02/16 12/08/20 04:00 History clopidogrel 75 mg tablet 75 mg PO DAILY 05/02/16 11/30/20 History tamsulosin 0.4 mg capsule (Flomax) 0.4 mg PO DAILY 05/02/16 12/07/20 History hydroxyzine HCl 25 mg tablet 25 mg PO DAILY PRN rash 11/09/20 Unknown History metoprolol tartrate 100 mg tablet 100 mg PO BID 11/09/20 12/08/20 04:00 History pantoprazole 20 mg tablet,delayed 20 mg PO DAILY 11/09/20 12/07/20 History release (Protonix) ibuprofen 600 mg tablet 600 mg PO Q6H PRN pain #20 tabs 12/08/20 Unknown Rx ciprofloxacin HCl 500 mg tablet 500 mg PO BID #6 TABLETS 02/11/24 Unknown Rx Allergy/AdvReac Type Severity Reaction Status Date / Time Penicillins Allergy Hives Verified 01/16/24 04:02 Surgical History History of angioplasty of peripheral vessel (09/28/09) History of coronary artery stent placement (08/10/06) Social History Smoking Status: Heavy Smoker (>10/day) ROS ROS ED Constitutional Constitutional ED: Denies chills or fever(s) Eyes Eyes: Denies blurry vision or change in vision ENT ENT ED: Denies rhinorrhea or sore throat Cardiovascular Cardiovascular: Denies chest pain or palpitations Respiratory/Chest Respiratory/Chest: Denies cough or dyspnea Gastrointestinal Gastrointestinal: Denies nausea or vomiting Genitourinary Genitourinary ED: Reports dysuria; Denies hematuria Musculoskeletal Musculoskeletal: Denies back pain or neck pain Integumentary Denies abscess or rash Neurologic Neurologic: Denies headache(s) or weakness Allergic/Immunologic Allergic/Immunologic ED: Denies mouth swelling or urticaria EXAM Physical Exam Const Vital Signs: 02/11/24 08:48 Temperature 98.2 F Temperature Source Oral Pulse Rate 69 Respiratory Rate 18 Blood Pressure 173/68 H Blood Pressure Mean 103 Pulse Ox 98 Oxygen Delivery Method Room Air Positive well nourished and well developed General Appearance ED: well developed and NAD HEENT Reports moist mucous membranes Neck supple and no JVD Resp normal respiratory effort and clear to auscultation bilaterally Cardio regular rate and regular rhythm GI non-distended Palpation: soft and tender suprapubic; Negative for guarding or rebound tenderness present Neuro oriented x3, CN's II-XII intact bilaterally and no sensory deficits noted Sensorium / Orientation: alert Motor Exam: strength 5/5 throughout Psych mental status grossly normal MDM MDM MDM Narrative Medical decision making narrative: Differential diagnosis includes urinary tract infection, urinary retention, and BPH. Urinalysis will be obtained to assess for urinary tract infection. Urine culture will be obtained to assess for urinary tract infection. CBC will be obtained to assess for leukocytosis and anemia. Basic metabolic profile will be obtained to assess for renal function and electrolyte abnormality. Lab Data Attestation: I reviewed the patient's lab results. Lab results narrative: CBC was reviewed and was within normal limits. Basic metabolic profile was reviewed. BUN was slightly elevated at 23. The remainder is essentially within normal limits. Urinalysis was reviewed. Leukocyte esterase is 500 with positive nitrites. There are 50-100 white blood cells and 2+ bacteria. There is greater than 100 red blood cells. Labs: Laboratory Results - last 24 hr 02/11/24 02/11/24 08:40 10:00 WBC 10.0 RBC 4.70 Hgb 16.1 Hct 45.0 MCV 95.7 H MCH 34.3 H MCHC 35.8 RDW Std Deviation 44.0 H RDW Coeff of Krishna 14.8 H Plt Count 350 MPV 10.7 Immature Gran % (Auto) 0.500 Neut % (Auto) 75.4 H Lymph % (Auto) 14.8 L [place] % (Auto) 7.3 Eos % (Auto) 1.2 Baso % (Auto) 0.8 Absolute Neuts (auto) 7.5 Absolute Lymphs (auto) 1.47 Nucleated RBC % 0 Sodium 140 Potassium 3.6 Chloride 109 H Carbon Dioxide 25.0 Anion Gap 6 BUN 23 H Creatinine 0.90 Estim Creat Clear Calc 61.22 Est GFR (MDRD) Af Amer 103 Est GFR (MDRD) Non-Af 85 BUN/Creatinine Ratio 25.4 H Glucose 133 H Calcium 9.4 Urine Color Yellow Urine Clarity Cloudy Urine pH 6.0 Ur Specific [place] 1.020 Urine Protein 100 H Urine Glucose (UA) Normal Urine Ketones 5 H Urine Occult Blood 250 H Urine Nitrite Positive H Urine Bilirubin 1 H Urine Urobilinogen 1 H Ur Leukocyte Esterase 500 H Urine RBC > 100 SEEN Urine WBC 50-100 SEEN Ur Squamous Epith Cells 0-5 SEEN Calcium Oxalate Crystal RARE Urine Bacteria 2+ Urine Mucus 0 SEEN Treatment and Re-Evaluation :: Patient request that the Cuello catheter be removed. This was done. However, the patient was advised that if he is unable to urinate, he may need to have the catheter replaced. Patient was given IV fluids. Patient was given a dose of Cipro here. Discharge Plan Triage Chief Complaint: Complaint ED Provider: Mello Briceño Dx/Rx/DC Orders Clinical Impression: Urinary tract infection, Essential hypertension, Tobacco dependence Instructions: ED Bladder Infection, Male (Adult) Prescriptions: New ciprofloxacin HCl 500 mg tablet 500 mg PO BID Qty: 6 0RF No Action hydroxyzine HCl 25 mg tablet 25 mg PO DAILY PRN (Reason: rash) metoprolol tartrate 100 mg tablet 100 mg PO BID Patient Comments: TAKE 1 TABLET BY MOUTH TWICE DAILY. pantoprazole [Protonix] 20 mg tablet,delayed release (DR/EC) 20 mg PO DAILY clopidogrel 75 MG tablet 75 mg PO DAILY tamsulosin [Flomax] 0.4 MG capsule 0.4 mg PO DAILY amlodipine 10 MG tablet 10 mg PO DAILY ibuprofen 600 mg tablet 600 mg PO Q6H PRN (Reason: pain) Qty: 20 0RF Primary Care Provider: Karla Baron NP Referrals: Justice Johnson MD [Med Staff - Active Staff] - 5-7 Days Karla Baron NP, BOWLING BALL FINISHER-C [Primary Care Provider] - 5-7 Days Print Language: Mongolian Disposition Disposition: Home, Self Care
[2024-02-11] MEDS: 0.9% Normal Saline (1000mL) 1,000 ML 1000 ML IV (09:26)
[2024-02-11 09:29] LABS: Absolute Lymphocyte Count 1.47 X10^3/uL (0.83-4.51); Absolute Neutrophil Count 7.5 X10^3/uL (2.0-7.7); Basophil# 0.08 X10^3/uL; Basophil% 0.8 % (0-1); Eosinophil# 0.12 X10^3/uL; Eosinophils% 1.2 % (0-5); Hemoglobin 16.1 g/dL (13.0-16.5); Lymphocyte # 1.47 X10^3/ul (0.83-4.51); Lymphocyte % 14.8 % (19-41); Mean Corp Hgb Conc 35.8 g/dL (32-36); Mean Corpuscular Hgb 34.3 pg (27.0-32.0); Mean Corpuscular Volume 95.7 fL (80-94); Mean Platelet Vol. 10.7 fl (6.2-12.0); Monocyte# 0.73 X10^3/uL; Monocyte% 7.3 % (0-10); NRBC Flagged by Analyzer 0 % (0-5); Neutrophil # 7.51 X10^3/uL (2.7-7.7); Neutrophil % 75.4 % (47-70); Platelet Count 350 K/mm3 (150-450); RBC Distribution Width CV 14.8 % (11.6-14.6)
[2024-02-11 09:52] LABS: Anion Gap 6 (5-15); BUN 23 mg/dL (7-18); BUN/Creat Ratio 25.4 RATIO (10-20); Calcium,Total 9.4 mg/dL (8.5-10.1); Chloride 109 mmol/L (98-107); EST Glomerular Filtration Rate 85 mL/min (>60); Est Glom Filt Rate - Afr Amer 103 mL/min (>60); Estimated Creatinine Clearance 61.22 ml/min; Glucose 133 mg/dL (74-106); Potassium 3.6 mmol/L (3.5-5.1); Sodium Level 140 mmol/L (136-145)
[2024-02-11 10:08] LABS: Mucous, Urine 0 SEEN /hpf (<or=2+)
[2024-02-11 10:10] LABS: Color, Urine Yellow (Yellow); Glucose, Dipstick Normal (Normal); Ketone-Dipstick 5 mg/dl (Negative); Leukocyte Esterase-Dipstick 500 /ul (Negative); Nitrite-Dipstick Positive (Negative); Occult Blood-Urine 250 /ul (Negative); Protein-Dipstick 100 mg/dl (Negative); Urine Bilirubin Dipstick 1 mg/dL (Negative); Urine Clarity Cloudy (Clear); Urine Urobilinogen 1 mg/dl (Normal)
[2024-02-11 10:16] LABS: Bacteria 2+ /hpf (None Seen); Calcium Oxalate Crystals Ur RARE /hpf (<or=2+); Red Blood Cells-Urine > 100 SEEN /hpf (0-5); Squamous Epithelial Cells - UA 0-5 SEEN /hpf (0-5); White Blood Cells 50-100 SEEN /hpf (0-5)
--- NOTE | 2024-02-11 10:21 | CM.ED ---
Social work This SW verified that patient's daughter, Yanci, is patient's HCPOA. That document is on file here; patient does not believe patient has a living will. Patient denied need for a living will or further information at this time. Taryn Romano, SANITATION WORKER CLEANING MACHINERY, ANIMAL GROOMER
--- NOTE | 2024-02-11 10:23 | CM.ED ---
Social work Reason for referral: validation of advance directives Referral source: case find This SW identified need to validate patient's advance directives. This SW entered patient's room, introducing self and role at [facility]. Patient was sitting up in bed, alert and oriented. Patient welcomed SW visit and patient stated being comfortable at this point in time. Patient stated this was patient's third time in the [facility] ED this month and patient was tired of it. Patient stated living alone and confirmed patient's daughter was patient's HCPOA. This SW asked about supports patient has and patient denied having any community supports. Patient stated having a neighbor patient could call in emergency situations, but patient stated not wanting to bother patient's neighbor. Patient discussed being independent with all ADLs and having enough food in the home. Patient stated having some difficulty with driving in the snow due to patient's car not doing well with snow. Patient stated having two daughters, one in [place] and one in [place]. Patient states patient's daughters visit patient about once a month, but patient reports just speaking with patient's daughter, Yanci, this morning to decide on whether patient should present to the ED or not. Through lengthy conversation, patient went back and forth on whether patient wanted anyone in the home to help and patient stated both of patient's daughters reportedly offering patient to live with them. Patient stated not knowing yet if patient wanted to move in with patient's daughters as patient does not want to give up independence. Patient stated not liking patient's new PCP very much due to only meeting with the new PCP once. Patient stated a desire to move to [facility] providers over [facility] providers. Much supportive listening and resources options offered during conversation. Patient denied any referrals being made, but patient did accept resources of: [facility], [facility] Provider Directory, transportation, and [facility]. Patient stated no other needs at this time and thanked this SW for the time spent talking with patient. Taryn Romano, LINE INSPECTOR, GUEST SERVICES REPRESENTATIVE
[2024-02-11] MEDS: Ciprofloxacin 500 MG Tablet PO (10:29)
== END 2024-02-11 11:09 | disposition home or self-care (01) ==
PROVIDERS: Emergency Provider Emergency Medicine; PCP Registered Nurse; Visit Provider Emergency Medicine
DX: N39.0 Urinary tract infection, site not specified (principal); J44.9 Chronic obstructive pulmonary disease, unspecified; I25.10 Atherosclerotic heart disease of native coronary artery without angina pectoris; I10 Essential (primary) hypertension; K21.9 Gastro-esophageal reflux disease without esophagitis
CPT/HCPCS: 80048; 81001; 85025; 87077; 87086; 87088; 87186; 96360; 99283

== ENCOUNTER → 2024-02-18 | Outpatient (CLI) | payer MEDICARE, OTHER, SELFPAY ==
[2024-02-18 09:40] LABS: Anion Gap 4 (5-15); BUN 16 mg/dL (7-18); BUN/Creat Ratio 17.3 RATIO (10-20); Calcium,Total 8.9 mg/dL (8.5-10.1); Chloride 108 mmol/L (98-107); Creatinine, Serum 0.92 mg/dL (0.70-1.30); EST Glomerular Filtration Rate 83 mL/min (>60); Est Glom Filt Rate - Afr Amer 101 mL/min (>60); Glucose 131 mg/dL (74-106); Potassium 4.1 mmol/L (3.5-5.1); Sodium Level 140 mmol/L (136-145)
== END | disposition home or self-care (01) ==
LOC: LAB 08:18
PROVIDERS: PCP Registered Nurse; Referring Provider Urology; Visit Provider Urology
DX: N40.1 Benign prostatic hyperplasia with lower urinary tract symptoms (principal)

== ENCOUNTER 2024-05-18 05:23 | Emergency (ER) | payer MEDICARE, OTHER, SELFPAY ==
[2024-05-18] VITALS (7 sets, daily range): BP systolic 151–213; BP diastolic 63–86; PULSE 61–102; RESP 16–22; TEMP 36.6–36.8; O2SAT 92–97; BMI 23.8
--- NOTE | 2024-05-18 05:25 | ED.VIS.DYS ---
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) Encounter for pre-operative cardiovascular clearance Hypertrophy of prostate with urinary obstruction 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 Chronic pancreatitis Atherosclerosis of coronary artery without angina pectoris Essential hypertension Alcoholism Home Medications ?Medication ?Instructions ?Recorded ?Last Taken ?Type amlodipine 10 mg tablet 10 mg PO DAILY 05/02/16 12/08/20 04:00 History clopidogrel 75 mg tablet 75 mg PO DAILY 05/02/16 11/30/20 History tamsulosin 0.4 mg capsule (Flomax) 0.4 mg PO DAILY 05/02/16 12/07/20 History hydroxyzine HCl 25 mg tablet 25 mg PO DAILY PRN rash 11/09/20 Unknown History metoprolol tartrate 100 mg tablet 100 mg PO BID 11/09/20 12/08/20 04:00 History pantoprazole 20 mg tablet,delayed 20 mg PO DAILY 11/09/20 12/07/20 History release (Protonix) ibuprofen 600 mg tablet 600 mg PO Q6H PRN pain #20 tabs 12/08/20 Unknown Rx ciprofloxacin HCl 500 mg tablet 500 mg PO BID #6 TABLETS 02/11/24 Unknown Rx levofloxacin 750 mg tablet 750 mg PO DAILY 5 days #5 tabs 05/18/24 Unknown Rx Allergy/AdvReac Type Severity Reaction Status Date / Time Penicillins Allergy Hives Verified 01/16/24 04:02 Surgical History History of angioplasty of peripheral vessel (09/28/09) History of coronary artery stent placement (08/10/06) Social History Smoking Status: Heavy Smoker (>10/day) EXAM Physical Exam Const Vital Signs: 05/18/24 05:24 05/18/24 05:30 05/18/24 05:39 Temperature 98.2 F Temperature Source Oral Pulse Rate 102 H Respiratory Rate 22 H Respiratory Effort Normal Blood Pressure 213/86 H Blood Pressure Mean 128 Pulse Ox 97 95 Oxygen Delivery Method Room Air Room Air Room Air 05/18/24 06:24 05/18/24 06:28 05/18/24 06:49 Temperature 98.1 F 98 F Temperature Source Oral Oral Pulse Rate 63 61 65 Respiratory Rate 18 18 19 H Respiratory Effort Blood Pressure 167/70 H 158/63 H 153/64 H Blood Pressure Mean 102 94 93 Pulse Ox 97 92 92 Oxygen Delivery Method Room Air Room Air Room Air [facility] MDM Narrative Medical decision making narrative: HISTORY OF PRESENT ILLNESS: Chief complaint: Shortness of breath 84-year-old male history of of COPD, CAD status post stent, peripheral artery disease, history of smoking, hypertension, alcoholism, presents with shortness of breath. The patient states he choked on his pill. He then vomited back up. He states now short of breath. When asked if he has chest pain patient says a little bit. He endorses tightness in his lower sternal area. Notes he feels better now but still feels slightly short of breath. The patient denies recent surgery in the last 4 weeks or immobilization in the last 3 days, denies previous diagnosis of DVT or PE, hemoptysis, unilateral leg swelling or malignancy with treatment the last 6 months or palliative. No estrogen use noted. REVIEW OF SYSTEMS: Pertinent positives: Shortness of breath, vomiting Pertinent negatives: Leg swelling, syncope, fever PHYSICAL EXAM: Nursing triage notes reviewed, Vital signs reviewed Constitutional: please see mdm HENT: MMM Eyes: Pupils equal round and reactive to light, Extraocular muscles intact Neck: No stridor, no JVD, full neck ROM Lungs: Clear to auscultation, No wheezing or rales. No increased work of breathing, no conversational dyspnea, no accessory muscle use, no nasal flaring. No respiratory distress noted Heart: Regular rate and rhythm, No murmurs, No rubs and No gallops, 2+ distal pulses (radial, femoral, posterior tibial) in all extremities Abdomen: Soft, there is no tenderness, rigidity, rebound or guarding, no obvious peritoneal signs, no palpable pulsatile abdominal masses, no auscultated abdominal bruit : No CVAT Extremities: No edema Neuro: No new focal neurological deficits, cranial nerves II through XII intact, 5/5 strength in all present extremities. Intact sensation to light touch in all present extremities, 2+ reflexes bilateral patella tendons. Skin: No rash or lesions noted MEDICAL DECISION MAKING: Chief Complaint: please see HPI External records reviewed: Reviewed prior medications. Reviewed past medical history. Reviewed prior cardiovascular testing. Reviewed echocardiogram from 2020. . Showed ejection fraction of 55%. No regional wall motion abnormalities Factors affecting care: As per HPI Social determinants of health: History of smoking History obtained from others: none Consults: none MDM Narrative: The patient was initially hypertensive with a blood pressure 113/86, tachycardic with a heart rate of 102, tachypneic with respiratory 22 otherwise afebrile. Saturating 97% on room air. Exam with clear lungs, no wheezing. No rales. No lower extremity edema. No stigmata of VTE. I considered the following differential diagnosis: Aspiration, pneumonia, COPD exacerbation, ACS, arrhythmia, anemia ALL IMAGES (IF OBTAINED) HAVE BEEN PERSONALLY REVIEWED AND INTERPRETED BY MYSELF. EKG with normal sinus rhythm, normal axis, prolonged OH interval, first-degree block, QTc 459, no obvious STEMI, occasional PVCs CBC without leukocytosis, severe anemia, no thrombocytopenia. I have personally reviewed the patient's chest x-ray. Chest x-ray is unremarkable for pulmonary edema, pneumothorax, pneumonia or focal cardiopulmonary abnormality. BMP without evidence of significant electrolyte abnormalities, no anion gap, no acute kidney injury. I have personally reviewed the patient's chest x-ray. Chest x-ray is unremarkable for pulmonary edema, pneumothorax, pneumonia or focal cardiopulmonary abnormality. High-sensitivity troponin is negative, no evidence of myocardial ischemia (low suspicion for ACS as such no indication to order treatment for troponin) On re-evaluation patient blood pressure improved 167/70, heart rate improved to 63, respiratory rate 18. He felt more comfortable. Suspect the patient's presentation secondary to aspiration of a pill and GI contents Will give prophylactic antibiotics (or levofloxacin) to sure. Does not develop aspiration pneumonia. The patient and/or family, caregivers express understanding. The patient and/or family, caregivers agrees with the plan. Shared decision making: I will have a discussion with the patient and or visitors regarding risk/benefits of further testing or admission. They will be made aware of of the risk/benefits inherent in this decision they will be given the opportunity to voice understanding. Total critical care time today provided was at least 0 minutes. This excludes separately billable procedures. Critical care time (if documented) is secondary to the patient having high probability of clinically significant/life threatening deterioration in the patient's condition which required my urgent intervention. Impression: 1. Shortness of breath 2. Aspiration Dispo: Signed out to a.m. physician This note was generated with [employer] dictation software. It may contain incorrect words, spelling, and punctuation that were not noted in review of the chart prior to signing. Lab Data Labs: Laboratory Results - last 24 hr 05/18/24 05:35 WBC 9.3 RBC 5.02 Hgb 16.0 Hct 44.9 MCV 89.4 MCH 31.9 MCHC 35.6 RDW Std Deviation 43.2 RDW Coeff of Krishna 13.2 Plt Count 269 MPV 10.3 Immature Gran % (Auto) 0.300 Neut % (Auto) 75.2 H Lymph % (Auto) 14.4 L [place] % (Auto) 8.5 Eos % (Auto) 0.8 Baso % (Auto) 0.8 Absolute Neuts (auto) 7.0 Absolute Lymphs (auto) 1.33 Nucleated RBC % 0 Sodium 138 Potassium 3.8 Chloride 103 Carbon Dioxide 18.4 L Anion Gap 16 H BUN 14 Creatinine 0.81 Estim Creat Clear Calc 66.85 Est GFR (MDRD) Non-Af 87 BUN/Creatinine Ratio 16.6 Glucose 131 H Calcium 9.5 Troponin T High Sens 17 Discharge Plan Triage Chief Complaint: Shortness of Breath ED Provider: Lucien Matthews Dx/Rx/DC Orders Clinical Impression: Aspiration into airway Instructions: Dysphagia Aspiration Prescriptions: New levofloxacin 750 mg tablet 750 mg PO DAILY 5 Days Qty: 5 0RF No Action hydroxyzine HCl 25 mg tablet 25 mg PO DAILY PRN (Reason: rash) metoprolol tartrate 100 mg tablet 100 mg PO BID Patient Comments: TAKE 1 TABLET BY MOUTH TWICE DAILY. pantoprazole [Protonix] 20 mg tablet,delayed release (DR/EC) 20 mg PO DAILY clopidogrel 75 MG tablet 75 mg PO DAILY tamsulosin [Flomax] 0.4 MG capsule 0.4 mg PO DAILY amlodipine 10 MG tablet 10 mg PO DAILY ibuprofen 600 mg tablet 600 mg PO Q6H PRN (Reason: pain) Qty: 20 0RF ciprofloxacin HCl 500 mg tablet 500 mg PO BID Qty: 6 0RF Primary Care Provider: Karla Baron NP Referrals: Haagen,Karla NUCLEAR WEAPONS MECHANICAL SPECIALIST, NUCLEAR WEAPONS MECHANICAL SPECIALIST-C [Primary Care Provider] - Activity Restrictions/Additional Instructions: Thank you for trusting us with your care today! Your labs and images were reassuring. Your presentation is likely secondary to aspiration. Please take Tylenol (2 pills, 650 mg), ibuprofen (2 pills, 400 mg) every 6 hours as needed for pain and fever control. Will prescribe a short course of antibiotics to cover for aspiration pneumonia. Pneumonia as result of aspirating stomach contents or vomit. Please return to the emergency department if your symptoms change or worsen. Please follow with your primary care physician for further outpatient evaluation and management. Print Language: Divehi Disposition Disposition: Home, Self Care
--- NOTE | 2024-05-18 05:28 | EKG12_ITS ---
Test Reason : SOB Blood Pressure : */* mmHG Vent. Rate : 87 BPM Atrial Rate : 87 BPM P-R Int : 210 ms QRS Dur : 94 ms QT Int : 382 ms P-R-T Axes : 52 80 61 degrees QTcB Int : 459 ms Sinus rhythm with 1st degree A-V block with occasional and consecutive Premature ventricular complexes Abnormal ECG When compared with ECG of 02-May-2016 11:22, Premature ventricular complexes are now Present FL interval has increased Confirmed by Max Morales ([id number]), material expeditor BRODY SLOAN ([id number]) on 05/21/2024 10:05:57 AM Referred By: Confirmed By: Max Morales
[2024-05-18] MEDS: 0.9% Normal Saline (500mL Bag) 500 ML 999 ML IV (05:38)
[2024-05-18] MEDS: Ondansetron 4 MG/2 ML Vial IV (05:38)
--- NOTE | 2024-05-18 05:40 | RAD_ITS ---
PROCEDURE: CHEST 1 VIEW (PORTABLE) 05/18/2024 REASON FOR EXAM: SOB TECHNIQUE: Frontal view of the chest. COMPARISON: None. FINDINGS: The cardiac silhouette is within normal limits. Streaky changes seen at the right lung base could represent subsegmental atelectasis. Pulmonary vascular congestion is noted. The lungs are some hyperlucent and hyperexpanded. RAD/Chest 1 View (Portable) IMPRESSION: Pulmonary vascular congestion/CHF. Correlate clinically. Streaky changes right lung base could represent subsegmental atelectasis. Pneu monia to be ruled out. Reading Location: [id number]
[2024-05-18 05:44] LABS: Absolute Lymphocyte Count 1.33 X10^3/uL (0.83-4.51); Basophil# 0.07 X10^3/uL; Basophil% 0.8 % (0-1); Eosinophil# 0.07 X10^3/uL; Eosinophils% 0.8 % (0-5); Hematocrit 44.9 % (40-54); Lymphocyte # 1.33 X10^3/ul (0.83-4.51); Lymphocyte % 14.4 % (19-41); Mean Corp Hgb Conc 35.6 g/dL (32-36); Mean Corpuscular Hgb 31.9 pg (27.0-32.0); Mean Corpuscular Volume 89.4 fL (80-94); Mean Platelet Vol. 10.3 fl (6.2-12.0); Monocyte# 0.79 X10^3/uL; Monocyte% 8.5 % (0-10); NRBC Flagged by Analyzer 0 % (0-5); Neutrophil # 6.97 X10^3/uL (2.7-7.7); Neutrophil % 75.2 % (47-70); Platelet Count 269 K/mm3 (150-450); RBC Distribution Width CV 13.2 % (11.6-14.6); RBC Distribution Width SD 43.2 fl (35.1-43.9); Red Blood Count 5.02 M/mm3 (4.6-6.2); White Blood Count 9.3 K/mm3 (4.4-11.0)
[2024-05-18 06:01] LABS: Anion Gap 16 (5-15); BUN 14 mg/dL (4-19); BUN/Creat Ratio 16.6 RATIO (10-20); Calcium,Total 9.5 mg/dL (7.6-11.0); Carbon Dioxide 18.4 mmol/L (21.0-32.0); Chloride 103 mmol/L (98-108); Creatinine, Serum 0.81 mg/dL (0.70-1.20); EST Glomerular Filtration Rate 87 (>60); Estimated Creatinine Clearance 66.85 ml/min (50-250); Glucose 131 mg/dL (70-99); Potassium 3.8 mmol/L (3.3-5.1); Sodium Level 138 mmol/L (133-145)
[2024-05-18 06:49] LABS: Troponin T High Sensitivity 17 ng/L (<=22)
== END 2024-05-18 07:41 | disposition home or self-care (01) ==
PROVIDERS: Emergency Provider Emergency Medicine; PCP Registered Nurse; Visit Provider Emergency Medicine
DX: T17.908A Unspecified foreign body in respiratory tract, part unspecified causing other injury, initial encounter (principal); J44.9 Chronic obstructive pulmonary disease, unspecified; I10 Essential (primary) hypertension; I25.10 Atherosclerotic heart disease of native coronary artery without angina pectoris; Z87.891 Personal history of nicotine dependence; K21.9 Gastro-esophageal reflux disease without esophagitis; Z79.890 Hormone replacement therapy; Z95.5 Presence of coronary angioplasty implant and graft; R06.02 Shortness of breath; R11.10 Vomiting, unspecified
CPT/HCPCS: 71045; 80048; 84484; 85025; 93005; 96361; 96374; 99284; A4216; J2405

== ENCOUNTER → 2024-06-05 | Outpatient (CLI) | payer MEDICARE, OTHER, SELFPAY ==
--- NOTE | 2024-06-05 13:39 | ART_ITS ---
Reason For Study Reason For Study: Claudication Procedure A bilateral lower extremity continuous wave Doppler with analog waveform analysis,segmental pressures,and ankle brachial indexes without exercise. Exercise portion of exam not completed due to severe STACEY in right leg. Left Segmental Pressures Left brachial= 162mmHg. Left high thigh = 151mmHg. Left low thigh = 136mmHg. Left calf = 109mmHg. Left posterior tibial artery = 114mmHg. Left dorsalis pedis artery = 110mmHg. Left digit = 67 mmHg. The left dorsalis pedis waveforms are monophasic. The left posterior tibial artery waveforms are monophasic. Right Segmental Pressures Right brachial= 156mmHg. Right high thigh = 94mmHg. Right low thigh = 78mmHg. Right calf = 73mmHg. Right posterior tibial artery = 43mmHg. Right dorsalis pedis artery = 66mmHg. Right digit = 32 mmHg. The right dorsalis pedis waveforms are monophasic. The right posterior tibial artery waveforms are monophasic. Indices The right ankle brachial index by the dorsalis pedis is 0.41. The right ankle brachial index by the posterior tibial artery is 0.27. The right digital-brachial index is 0.20. The left ankle brachial index by the dorsalis pedis is 0.68. The left ankle brachial index by the posterior tibial artery is 0.70. The left digital-brachial index is 0.41. . Preliminary report given to Latoya JALLOH. VL/Lower Ext Art Exam w/o Exercis Interpretation Summary Right STACEY 0.41, severe arterial insufficiency. Doppler/PVR waveforms and segmen shar pressures reveal aorto-iliac disease. Left STACEY 0.7, moderate arterial insufficiency. Doppler/PVR waveforms and segmen shar pressures reveal aorto-iliac, distal SFA/popliteal disease Ordering Physician: Sammie Strong Referring Physician: Karla Terrell Performed By: Chrissy Albrecht RVT
== END | disposition home or self-care (01) ==
LOC: CVS 13:39
PROVIDERS: PCP Registered Nurse; Referring Provider Physician Assistant; Visit Provider Physician Assistant
DX: I73.9 Peripheral vascular disease, unspecified (principal)
CPT/HCPCS: 93923

== ENCOUNTER → 2024-07-03 | Outpatient (CLI) | payer MEDICARE, OTHER, SELFPAY ==
--- NOTE | 2024-07-03 13:40 | CT_ITS ---
PROCEDURE: CTA HEAD AND NECK W/ CONTRAST 07/03/2024 REASON FOR EXAM: SEVERE R ICA STENOSIS TECHNIQUE: CTA imaging of the head and neck from the aortic arch to the skull vertex with out contrast and with intravenous contrast. Multiplanar and multisequence images were obtained. One or more dose reduction techniques were used (e.g., Automated exposure control, adjustment of the mA and/or kV according to patient size, use of iterative reconstruction technique). RADIATION DOSE SUMMARY: CTDlvol: 26 mGy DLP: 1516.65 mGycm COMPARISON: None FINDINGS: 9 mm hypodensity in the left lobe of the thyroid. Aortic Arch: Normal size and branching pattern. Mild atherosclerotic plaque. Brachiocephalic and Subclavians: Mild atherosclerotic plaque without significant stenosis. RIGHT Carotid: Right CCA: Mild calcified and soft plaque. Right ICA: Marked degree of calcific plaques. Maximum stenosis (NASCET): Greater than 90% % Right ECA: Unremarkable. LEFT Carotid: Left CCA: Mild calcified and soft plaque. Left ICA: Marked degree of calcific plaques. Maximum stenosis (NASCET): Greater than 90% % Left ECA: Unremarkable. Vertebrals: Dominant left vertebral artery. RIGHT Vertebral: Calcific plaques. LEFT Vertebral: Calcific plaques. Anatomy: [place] anatomy is normal. Aneurysm or avm: No intracranial aneurysms or large vascular malformations are identified. Anterior cerebral arteries: Unremarkable: Middle cerebral arteries: Unremarkable. Basilar artery: Unremarkable. Posterior cerebral arteries: Unremarkable. Other major branches of the posterior circulation: Unremarkable. Major venous structures: Unremarkable. Other findings: Neck: Lungs: Bones: CT/CTA Head AND Neck W/ Contrast IMPRESSION: High-grade stenosis involving both internal carotid arteries. Reading Location: [id number]
== END | disposition home or self-care (01) ==
LOC: CT 13:37
PROVIDERS: PCP Registered Nurse; Referring Provider Physician Assistant; Visit Provider Physician Assistant
DX: I65.21 Occlusion and stenosis of right carotid artery (principal)
CPT/HCPCS: 70496; 70498; Q9967

== ENCOUNTER → 2024-07-24 | Outpatient (CLI) | payer MEDICARE, OTHER, SELFPAY ==
--- NOTE | 2024-07-24 11:00 | RAD_ITS ---
PROCEDURE: LUMBAR SPINE 2 OR 3 VIEWS 07/24/2024 REASON FOR EXAM: DDD TECHNIQUE: LUMBAR SPINE 2 OR 3 VIEWS COMPARISON: None. FINDINGS: Grade 1 anterolisthesis of L5 on S1 measuring 5.8 mm secondary to bilateral pars defects. Exaggerated lumbar lordosis. Mild S shaped degenerative scoliosis. There are diffuse spondylotic changes. Findings are demonstrated to by diffuse disc space narrowing, osteophyte formation and degenerative endplate sclerosis. There is diffuse facet joint arthropathy with secondary bilateral neural foramina narrowing. No fracture or dislocation is seen. No aggressive lytic or blastic bony lesion is noted. Calcified atheromatous plaques are noted. RAD/Lumbar Spine 2 or 3 Views IMPRESSION: Diffuse spondylosis. Exaggerated lumbar lordosis. S shaped degenerative scoliosis. Reading Location: [facility]
== END | disposition home or self-care (01) ==
LOC: RAD 10:50
PROVIDERS: PCP Registered Nurse; Referring Provider Anesthesiology Pain Medicine; Visit Provider Anesthesiology Pain Medicine
DX: M51.369 Other intervertebral disc degeneration, lumbar region without mention of lumbar back pain or lower extremity pain (principal)
CPT/HCPCS: 72100

== ENCOUNTER 2024-07-29 06:14 | Emergency (ER) | payer MEDICARE, OTHER, SELFPAY ==
[2024-07-29 06:16] VITALS: BP 154/61; PULSE 62; RESP 18; TEMP 36.5; O2SAT 98; BMI 23.1
--- NOTE | 2024-07-29 06:28 | ED.VIS.LOWEX ---
HPI History of Present Illness Chief Complaint: Lower Extremity Injury Informant: patient Narrative Narrative: 84-year-old male presenting with about 3 weeks of gradual onset worsening left knee pain. He says it hurts to move and hurts to walk but he is able to do both. He denies any systemic symptoms such as fevers or chills. He denies any redness or warmth or swelling. He cannot remember any injury. He mostly feels discomfort in the popliteal space. No significant calf pain with this but he does get bilateral calf and thigh pain with exertion, maybe 100 feet or so, he states that is been going on for years and unchanged. He is scheduled for vascular surgery on his carotid with Dr. Demarco a couple weeks from now. He takes clopidogrel. No history of DVT or PE, and he has not been immobilized recently or hospitalized or had any recent surgeries. 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) Encounter for pre-operative cardiovascular clearance Hypertrophy of prostate with urinary obstruction 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 Atherosclerosis of coronary artery without angina pectoris Essential hypertension Alcoholism Home Medications ?Medication ?Instructions ?Recorded ?Last Taken ?Type amlodipine 10 mg tablet 10 mg PO DAILY 05/02/16 12/08/20 04:00 History clopidogrel 75 mg tablet 75 mg PO DAILY 05/02/16 11/30/20 History tamsulosin 0.4 mg capsule (Flomax) 0.4 mg PO DAILY 05/02/16 12/07/20 History metoprolol tartrate 100 mg tablet 100 mg PO BID 11/09/20 12/08/20 04:00 History pantoprazole 20 mg tablet,delayed 20 mg PO DAILY 11/09/20 12/07/20 History release (Protonix) gabapentin 300 mg capsule 300 mg PO TID 07/17/24 Unknown History losartan 25 mg tablet 25 mg PO QDAY 07/17/24 Unknown History finasteride 5 mg tablet 5 mg PO QDAY 07/25/24 Unknown History hydroxyzine HCl 25 mg tablet 25 mg PO TID PRN 07/25/24 Unknown History tizanidine 4 mg tablet 4 mg PO QHS PRN 07/25/24 Unknown History tramadol 50 mg tablet 50 mg PO BID PRN 07/25/24 Unknown History prednisone 20 mg tablet 40 mg (2 x 20 mg) PO DAILY 6 days 07/29/24 Unknown Rx #12 tabs Allergy/AdvReac Type Severity Reaction Status Date / Time cilostazol (From Pletal) Allergy Intermediate PT UNSURE Verified 07/29/24 06:15 OF REACTION lisinopril Allergy Intermediate PT UNSURE Verified 07/29/24 06:15 OF REACTION Penicillins Allergy Hives Verified 07/29/24 06:15 atorvastatin AdvReac Intermediate myalgia Verified 07/29/24 06:15 pravastatin AdvReac Intermediate myalgia Verified 07/29/24 06:15 Family History Mother Cancer Brother Heart disease Surgical History History of angioplasty of peripheral vessel (09/28/09) History of coronary artery stent placement (08/10/06) Social History Smoking Status: Heavy Smoker (>10/day) alcohol intake: current alcohol intake frequency: a few times a month substance use type: does not use ROS ROS ED Constitutional Constitutional ED: Denies chills or fever(s) Cardiovascular Cardiovascular: Denies leg edema or orthopnea Respiratory/Chest Respiratory/Chest: Denies orthopnea Musculoskeletal Musculoskeletal: Reports extremity pain and other Details: Claudication see HPI ; Denies neck pain Integumentary Denies Abrasions, rash or wounds Neurologic Neurologic: Denies paresthesias or weakness EXAM Physical Exam Const Vital Signs: 07/29/24 06:16 Temperature 97.7 F L Temperature Source Oral Pulse Rate 62 Respiratory Rate 18 Blood Pressure 154/61 H Blood Pressure Mean 92 Pulse Ox 98 Oxygen Delivery Method Room Air Positive well nourished and well developed General Appearance ED: well developed and NAD HEENT normocephalic and atraumatic Neck full ROM and supple Resp normal respiratory effort Back/Spine normal ROM and normal to inspection Extremity Extremity Narrative: Left knee is normal on inspection. There is no effusion. There is no bony tenderness. He can range and almost fully, limited extreme flexion but he is able to extend without difficulty. If I range passively he has less issue. Popliteal space feels normal and is nontender if he is not moving it. Negative Homans. No peripheral edema. No palpable cords. No swelling about the knee at all or erythema/increased warmth. All ligaments are stable with short endpoints, and there is no significant discomfort on stressing. Negative anterior and posterior drawer signs. Neuro oriented x3, no focal motor deficits and no sensory deficits noted Sensorium / Orientation: alert Psych mental status grossly normal and thought process normal Skin no wounds Rashes: no rashes MDM MDM MDM Narrative Medical decision making narrative: 4 view x-ray series of the left knee is obtained and on my interpretation shows no acute abnormality. Radiology adding that there is a small joint effusion. I do not detect this clinically. This is inconsistent with a septic arthritis or crystal induced arthritis, my suspicion is that this could be osteoarthritis or could be a soft tissue injury such as meniscus injury or sprain although his ligaments are not the source of his pain on exam, or a Orlando's cyst although the patient presents during a time when vascular ultrasound is not available. My suspicion for DVT is extremely low. He does not have specific risk for that, has never had 1 before, he does not have any peripheral edema or calf tenderness, and he is on clopidogrel. I am going to place him in an Jerry wrap, give him a short course of prednisone to see if that helps and refer him to orthopedics. He is comfortable with that plan. Radiography Diagnostic Testing: Clinical Impression(s) from Imaging Studies Knee X-Ray 07/29/24 06:40 IMPRESSION: There is no fracture or dislocation. There is a small visible joint effusion. Reading Location: [facility] Discharge Plan Triage Chief Complaint: Lower Extremity Injury ED Provider: Nilesh Mccullough Dx/Rx/DC Orders Clinical Impression: Acute pain of left knee Instructions: Knee Pain Prescriptions: New prednisone 20 mg tablet 40 mg PO DAILY 6 Days Qty: 12 0RF No Action metoprolol tartrate 100 mg tablet 100 mg PO BID Patient Comments: TAKE 1 TABLET BY MOUTH TWICE DAILY. pantoprazole [Protonix] 20 mg tablet,delayed release (DR/EC) 20 mg PO DAILY losartan 25 mg tablet 25 mg PO QDAY gabapentin 300 mg capsule 300 mg PO TID tramadol 50 mg tablet 50 mg PO BID PRN finasteride 5 mg tablet 5 mg PO QDAY hydroxyzine HCl 25 mg tablet 25 mg PO TID PRN tizanidine 4 mg tablet 4 mg PO QHS PRN clopidogrel 75 MG tablet 75 mg PO DAILY tamsulosin [Flomax] 0.4 MG capsule 0.4 mg PO DAILY amlodipine 10 MG tablet 10 mg PO DAILY Primary Care Provider: Karla Baron NP Referrals: Akira Negrete MD [Med Staff - Active Staff] - As soon as possible Karla Baron NP, [facility] [Primary Care Provider] - Activity Restrictions/Additional Instructions: Start the prednisone prescription tomorrow 07/30 as you received the initial dose in the emergency department. Print Language: Sami Disposition Disposition: Home, Self Care
--- NOTE | 2024-07-29 06:40 | RAD_ITS ---
PROCEDURE: KNEE 4 OR MORE VIEWS 07/29/2024 REASON FOR EXAM: PAIN TECHNIQUE: KNEE 4 OR MORE VIEWS COMPARISON: None FINDINGS: There is no fracture or dislocation. There is minimal spurring at the medial tibial plateau and superior patellar articular surface. There is a small visible joint effusion. Osteopenia is noted. Vascular calcifications are present. RAD/Knee 4 or More Views IMPRESSION: There is no fracture or dislocation. There is a small visible joint effusion. Reading Location: [facility]
--- OUTSIDE RECORDS SUMMARY | 2024-07-29 07:11 | XMS RPT_ITS | CCD ---
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 posthemorrhagic anemia] Onset: 03-02-2016 Resolved: 09-06-2017 09-06-2017 Episodic Administrative/social admission (20 sources) Patient encounter status; Translations: [Persons encountering health services in other specified circumstances] Onset: 12-12-2020 12-12-2020 Episodic Calculus of urinary tract (20 sources) Calculus of kidney; Translations: [Calculus of kidney] Onset: 06-27-2019 06-27-2019 Episodic Coronary atherosclerosis and other heart disease (20 sources) Stented coronary artery; Translations: [Presence of coronary angioplasty implant and graft] Onset: 09-06-2017 09-06-2017 Episodic Gastritis and duodenitis (2 sources) Duodenitis; Translations: [Duodenitis without bleeding] Onset: 01-02-2024 01-01-2024 Episodic Gastrointestinal hemorrhage (5 sources) Black feces; Translations: [Melena] Onset: 11-27-2023 11-27-2023 Episodic Immunizations and screening for infectious disease (3 sources) Suspected disease caused by 2019-nCoV; Translations: [Suspected COVID-19 virus infection] Onset: 11-27-2023 Episodic Mood disorders (20 sources) Depressive disorder; Translations: [Depression] Onset: 05-10-2015 Resolved: 03-30-2017 03-30-2017 Chronic Nutritional deficiencies (20 sources) Undernutrition; Translations: [Mild protein-calorie malnutrition] Onset: 04-11-2016 Resolved: 03-30-2017 03-30-2017 Chronic Other and unspecified benign neoplasm (20 sources) Adenoma of left adrenal gland; Translations: [Benign neoplasm of left adrenal gland] Onset: 10-03-2020 10-03-2020 Episodic Other and unspecified benign neoplasm (1 source) Benign neoplasm, unspecified site; Translations: [Multiple adenomatous polyps] Onset: 01-02-2024 Episodic Other circulatory disease (20 sources) Carotid bruit; Translations: [Other specified symptoms and signs involving the circulatory and respiratory systems] Onset: 11-20-2008 Resolved: 10-18-2011 10-18-2011 Episodic Other circulatory disease (1 source) Hemorrhage, not elsewhere classified; Translations: [Hemorrhage, not elsewhere classified] Onset: 02-18-2024 Episodic Other connective tissue disease (20 sources) Dupuytren contracture of left palm; Translations: [Palmar fascial fibromatosis [Dupuytren]] Onset: 01-25-2012 Resolved: 09-06-2017 05-24-2023 Episodic Other connective tissue disease (1 source) Palmar fascial fibromatosis [Dupuytren]; Translations: [Dupuytren's contracture of left hand] Onset: 08-27-2023 Episodic Other gastrointestinal disorders (20 sources) Occult blood in stools; Translations: [Other fecal abnormalities] Onset: 05-07-2015 Resolved: 03-17-2016 03-17-2016 Episodic Other gastrointestinal disorders (1 source) Other fecal abnormalities; Translations: [Positive occult stool blood test] Onset: 12-06-2023 Episodic Other gastrointestinal disorders (1 source) Abdominal distension (gaseous); Translations: [Bloating] Onset: 11-27-2023 Episodic Other lower respiratory disease (20 sources) Hypoxemia; Translations: [Hypoxemia] Onset: 03-05-2016 Resolved: 03-17-2016 03-17-2016 Episodic Other male genital disorders (1 source) Disorder of male genital organs, unspecified; Translations: [Disorder of male genital organs, unspecified] Onset: 03-04-2024 Episodic Other non-traumatic joint disorders (4 sources) Pain in right shoulder; Translations: [Pain in joint, shoulder region] Onset: 02-01-2024 02-01-2024 Episodic Other screening for suspected conditions (not mental disorders or infectious disease) (20 sources) Raised prostate specific antigen; Translations: [Elevated prostate specific antigen [PSA]] Onset: 03-09-2020 03-09-2020 Episodic Other upper respiratory disease (20 sources) Congestion of nasal sinus; Translations: [Nasal congestion] Onset: 12-12-2011 Resolved: 2016 2016 Episodic Pancreatic disorders (not diabetes) (20 sources) Disorder of pancreas; Translations: [Other specified diseases of pancreas] Onset: 10-03-2020 10-03-2020 Episodic Pneumonia (except that caused by tuberculosis or sexually transmitted disease) (20 sources) Pneumonia; Translations: [Pneumonia, unspecified organism] Onset: 03-05-2016 Resolved: 03-17-2016 03-17-2016 Episodic Residual codes; unclassified (20 sources) Tobacco user; Translations: [Tobacco use] Onset: 05-22-2013 05-22-2013 Episodic Residual codes; unclassified (20 sources) Difficulty sleeping ; Translations: [Sleep deprivation] Onset: 05-10-2015 05-10-2015 Episodic Residual codes; unclassified (20 sources) History of cardiovascular surgery; Translations: [Other specified postprocedural states] Onset: 09-23-2020 09-23-2020 Episodic Results Test Name Value Interpretation Reference Range Facility Lumbar Spine 2 or 3 Viewson 07-24-2024 Lumbar Spine 2 or 3 Views [facility] Imaging Services [address] [place] [address] Lumbar Spine 2 or 3 Views MR#: [id number] Acct: [id number] Name: RAMONITA EL Rep #: [id number] : 1940 M 84 From: Jesus chandra MD PCP: RAYO Pillai Status: REG CLI Study: Lumbar Spine 2 or 3 Views Date of Exam: Exam# [id number] Ordering Dr: Chandni Fitzgerald MD PROCEDURE: LUMBAR SPINE 2 OR 3 VIEWS 07/24/2024 REASON FOR EXAM: DDD TECHNIQUE: LUMBAR SPINE 2 OR 3 VIEWS COMPARISON: None. FINDINGS: Grade 1 anterolisthesis of L5 on S1 measuring 5.8 mm secondary to bilateral pars defects. Exaggerated lumbar lordosis. Mild S shaped degenerative scoliosis. There are diffuse spondylotic changes. Findings are demonstrated to by diffuse disc space narrowing, osteophyte formation and degenerative endplate sclerosis. There is diffuse facet joint arthropathy with secondary bilateral neural foramina narrowing. No fracture or dislocation is seen. No aggressive lytic or blastic bony lesion is noted. Calcified atheromatous plaques are noted. RAD/Lumbar Spine 2 or 3 Views IMPRESSION: Diffuse spondylosis. Exaggerated lumbar lordosis. S shaped degenerative scoliosis. [facility] CC: RAYO Baron; Dr. Chandni Fitzgerald MD Simulation Developer: Signed Normal [facility] MR/BMS.BVSon 07-17-2024 MR/BMS.BVS [facility] Vascular Surgery [address] [place] [address] OFFICE VISIT Date of Service: 07/17/24 MR#: [id number] Acct: [id number] Name: RAMONITA EL Rep #: [id number] : 1940 Provider: Dr. Mello Demarco MD Age/Sex: 84/M Location: [facility] [place] Status: Signed Intake Vital Signs 05/18/24 05:24 07/17/24 14:05 Height 5 ft 8 in Weight: 161 lb BP 122/58 H Blood Pressure Location Lt brachial Position Sitting Respiration 16 Pulse 66 Pulse Source Monitor Temp 9.4 F L Temp Source Temporal Pulse Oximetry (%) 93 Oxygen Delivery Method room air Intake Visit Reasons: Discuss CTA Is patient in pain?: Yes Allergies Penicillins Allergy (Verified 07/17/24 14:06) Hives Medications ???Medication ???Instructions ???Recorded ???Confirmed ???Type amlodipine 10 mg tablet 10 mg PO DAILY 05/02/16 07/17/24 H istory clopidogrel 75 mg tablet 75 mg PO DAILY 05/02/16 07/17/24 H istory tamsulosin 0.4 mg capsule (Flomax) 0.4 mg PO DAILY 05/02/16 5 History metoprolol tartrate 100 mg tablet 100 mg PO BID 11/09/20 07/17/24 H istory pantoprazole 20 mg tablet,delayed 20 mg PO DAILY 11/09/20 07/17/24 History release (Protonix) gabapentin 300 mg capsule 300 mg PO TID 07/17/24 07/17/24 Hi story losartan 25 mg tablet 25 mg PO QDAY 07/17/24 07/17/24 Hi story Have you fallen in the past year?: No PFSH Medical History Alcohol use Prostate disease Easy bruising Excessive bleeding Gastric reflux Smoker COPD (chronic obstructive pulmonary disease) Renal calculi Tobacco dependence 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 He has had a CTA and is here to discuss. No new concerning neurologic symptoms. He does also have a history of PAD with prior left lower extremity interventions; most recently left femoral endart and iliac stent which did not significantly improve his symptoms of leg pain with walking. He has similar pattern of symptoms in both lower legs though worse on the left, needs to sit to get relief, walks further with shopping cart. He also has occasional sharp pains in the left knee/popliteal fossa that make it difficult for him to lift his leg. ROS General General: Yes weakness; No weight change, appetite, fatigue, colon cancer or breast cancer HEENT HEENT: No difficulty swallowing, eye injury, eye surgery, swollen glands or hoarseness Endo Endocrine: No thyroid disease, diabetes mellitus, thyroid cancer, Hair loss, heat intolerance or cold intolerance Skin Skin: No rash or changing moles Musc Musculoskeletal: No back problems, arthritis, rheumatoid arthritis, gout or joint pain Cardio Cardiovascular: Yes heart disease, high blood pressure, heart attack, heart stent, shortness of breath with exertion and chest pain; No murmur, pacemaker, atrial fibrillation or palpitations Psych Psychiatric: No depression, anxiety or hearing voices Resp Respiratory: Yes shortness of breath, Yes sleep apnea, Yes cough, Yes COPD, No asthma, No emphysema and Yes wheezing Gastro Gastrointestinal: No abdominal pain, No nausea or vomiting, No diarrhea, Yes constipation, No blood in stool, Yes acid reflux, No hemorrhoids, No ulcers, No gallbladder problem and No black,tarry stools Severino Hematologic: Yes blood thinners, No blood disorders, No bleeding, No anemia and No blood clots Neuro Neurologic: No system reviewed and no additional complaints, except as documented, No as per HPI, No abnormal gait, Yes abnormal hearing, No abnormal movements, No abnormal speech, No behavioral changes, Yes burning sensations, No confusion, No convulsions, Yes disequilibrium, No dizziness, No localized weakness, No frequent falls, No headache(s), No lack of coordination, No loss of vision, No memory loss, Yes numbness, Yes other visual disturbances, Yes radicular pain, No restless legs, No sensory deficit, No syncope, Yes tingling, No tremor(s), Yes weakness and No other Exam Const General: cooperative, healthy appearing, co (more content not included)... Normal [facility] CTA Head AND Neck W/ Contras ton 07-03-2024 CTA Head AND Neck W/ Contrast [facility] Imaging Services [address] [place] [address] CTA Head AND Neck W/ Contrast MR#: [id number] Acct: [id number] Name: RAMONITA EL Rep #: [id number] : 1940 M 84 From: Parth priest MD PCP: RAYO Pillai Status: REG CLI Study: CTA Head AND Neck W/ Contrast Date of Exam: Exam# [id number] Ordering Dr: Sammie Strong PROCEDURE: CTA HEAD AND NECK W/ CONTRAST 07/03/2024 REASON FOR EXAM: SEVERE R ICA STENOSIS TECHNIQUE: CTA imaging of the head and neck from the aortic arch to the skull vertex with out contrast and with intravenous contrast. Multiplanar and multisequence images were obtained. One or more dose reduction techniques were used (e.g., Automated exposure control, adjustment of the mA and/or kV according to patient size, use of iterative reconstruction technique). RADIATION DOSE SUMMARY: CTDlvol: 26 mGy DLP: 1516.65 mGycm COMPARISON: None FINDINGS: 9 mm hypodensity in the left lobe of the thyroid. Aortic Arch: Normal size and branching pattern. Mild atherosclerotic plaque. Brachiocephalic and Subclavians: Mild atherosclerotic plaque without significant stenosis. RIGHT Carotid: Right CCA: Mild calcified and soft plaque. Right ICA: Marked degree of calcific plaques. Maximum stenosis (NASCET): Greater than 90% % Right ECA: Unremarkable. LEFT Carotid: Left CCA: Mild calcified and soft plaque. Left ICA: Marked degree of calcific plaques. Maximum stenosis (NASCET): Greater than 90% % Left ECA: Unremarkable. Vertebrals: Dominant left vertebral artery. RIGHT Vertebral: Calcific plaques. LEFT Vertebral: Calcific plaques. Anatomy: Hughes of [place] anatomy is normal. Aneurysm or avm: No intracranial aneurysms or large vascular malformations are identified. Anterior cerebral arteries: Unremarkable: Middle cerebral arteries: Unremarkable. Basilar artery: Unremarkable. Posterior cerebral arteries: Unremarkable. Other major branches of the posterior circulation: Unremarkable. Major venous structures: Unremarkable. Other findings: Neck: Lungs: Bones: CT/CTA Head AND Neck W/ Contrast IMPRESSION: High-grade stenosis involving both internal carotid arteries. Reading Location: [id number] CC: RAYO Baron; KRISTI Garza Simulation Developer: Wade Iqbal [facility] CNOVon 06-24-2024 CN Office Visit (FAMPWS ) -- RAMONITA EL ([id number]) 1940 M NFR Date Time Provider Department 06/24/24 11:00 AM KRALA BARON During your visit today, we recorded the following information about you: Pulse Respiration Blood pressure 55/minute 16/minute 148/62 Karla Baron APRN.FRETTED INSTRUMENT REPAIRER 06/24/2024 11:38 AM Signed - Continue taking gabapentin at the dose prescribed by Dr. Fitzgerald and keep your next pain management appointment in one month so they can adjust your medication as needed. - If you choose to use the prescribed pain pills, try splitting a tablet in half for your first dose to see how it affects you. Be mindful that these can cause drowsiness--avoid driving or operating machinery until you know how you respond. - To help prevent constipation from any pain medicine, drink plenty of water and include fruits and vegetables in your diet. - Attend your CT scan appointment on July 03. - Follow up with the vascular surgeon on July [address] results and discuss next steps. - Return to this clinic in three months for routine follow-up, or sooner if you have new or worsening symptoms. Karla Baron APRN.FRETTED INSTRUMENT REPAIRER 06/24/2024 10:08 PM Signed This is a 84 year old male who presents today with: Ramonita is an 84-year-old male with a history of chronic pain, presenting for follow-up after vascular testing and pain management evaluation. HISTORY OF PRESENT ILLNESS: Chronic Pain: - Pain management by Dr. Fitzgerald; increased gabapentin dosage, which is well-tolerated. - Prescribed tramadol but has not used it yet; hesitant due to potential side effects. - Severe pain in the left knee, worse than other areas; requires assistance with leg movement, especially when getting into a car. - Pain exacerbated by prolonged activity, such as woodworking for 4-5 hours or lawn work. - Scheduled to see Dr. Fitzgerald again in a month but unsure about continuing visits. Vascular Concerns: - Recent vascular testing showed moderate circulation issues in the left leg and severe issues in the right leg. - CT scan scheduled for July 03, followed by a vascular surgeon appointment on July 10. - Considering surgery but has concerns due to past experiences of friends who had complications. - Previously attempted to address vascular issues years ago without success. Appetite Changes: - Good appetite but can only eat small portions (e.g., a quarter of a hamburger or one piece of pizza) before feeling full. - No associated abdominal pain or heartburn; takes medication for heartburn. - Eats frequently, mostly snacks. 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 cruciate tear, poss. 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 PMH - PAST MEDICAL HISTORY OF 1982 laceration wrist, suicidal gesture Radius fracture 06/21/2013 See scanned documents [facility] Tobacco abuse 05/22/2013 Urinary calculus, unspecified 01/05 Renal stone right side; 3 episodes with stones altogether with extraction in 196 PAST SURGICAL HISTORY Procedure Laterality Date ATHERECTOMY, FEMORAL-POPLITEAL 09/28/2009 right COLONOSCOPY 12/26/2023 COLONOSCOPY FLX DX W/COLLJ SPEC WHEN PFRMD 06/21/2015 Colonoscopy CORONARY ENDARTERCOMY OPEN ANY METHOD 08/10/2006 Angioplasty with stent ECHOCARDIOGRAM 11/24/2020 11/25/[address] Puentes: LV size and LVSF WNL, EF 55%, structurally normal valves EGD 12/26/2023 ESOPHAGOGASTRODUODENOSCOPY TRANSORAL DIAGNOSTIC 06/21/2015 EGD PAST SURGICAL HISTORY OF 04/05/1999 Cautery and outfracture of inferior turbinates. Removal fx fragment PAST SURGICAL HISTORY OF 1960 renal stone extraction: PAST SURGICAL HISTORY OF dental extraction PICC LINE INSERT/CONSULT 04/11/2016 SLCTV CATHJ 3RD+ ORD SLCTV ABDL PEL/LXTR BRNCH 09/28/2009 VASECTOMY UNI/BI SPX W/POSTOP SEMEN EXAMS 10/1984 ALLERGIES Dust Mites, Lipitor [Atorvastatin], Lisinopril, Penicillins, Pletal [Cilostazol], and Pravastatin MEDICATIONS Current Outpatient Medications Medication Sig gabapentin (NEURONTIN) 300 mg capsule Take 300 mg by mouth two times a day. DR. FITZGERALD traMADol (ULTRAM) 50 mg tablet Take 50 mg by mouth two times a day as needed. DR. FITZGERALD finasteride (PROSCAR) 5 mg tablet Take 5 mg by mouth once daily. losartan (COZAAR) 25 mg tablet Take 1 tab (more content not included)... Normal [facility] Arterial study reportOrdered By: Mello Demarco on 06-05-2024 Noninvasive arteriosclerosis study report [facility] Cardiovascular Services [address] [place] [address] Lower Ext Art Exam w/o Exercis 06/05/24 1341 MR#: [id number] Acct: [id number] Name: RAMONITA EL Rep #:[id number] : 1940 84 From: Mello Self Attending Dr: KRISTI Garza Stat us: REG CLI Ordering Dr: Sammie Strong Date: Location: [facility] Sex: M C Admitted: Reason For Study Reason For Study: Claudication Procedure A bilateral lower extremity continuous wave Doppler with analog waveform analysis,segmental pressures,and ankle brachial indexes without exercise. Exercise portion of exam not completed due to severe STACEY in right leg. Left Segmental Pressures Left brachial= 162mmHg. Left high thigh = 151mmHg. Left low thigh = 136mmHg. Left calf = 109mmHg. Left posterior tibial artery = 114mmHg. Left dorsalis pedis artery = 110mmHg. Left digit = 67 mmHg. The left dorsalis pedis waveforms are monophasic. The left posterior tibial artery waveforms are monophasic. Right Segmental Pressures Right brachial= 156mmHg. Right high thigh = 94mmHg. Right low thigh = 78mmHg. Right calf = 73mmHg. Right posterior tibial artery = 43mmHg. Right dorsalis pedis artery = 66mmHg. Right digit = 32 mmHg. The right dorsalis pedis waveforms are monophasic. The right posterior tibial artery waveforms are monophasic. Indices The right ankle brachial index by the dorsalis pedis is 0.41. The right ankle brachial index by the posterior tibial artery is 0.27. The right digital-brachial index is 0.20. The left ankle brachial index by the dorsalis pedis is 0.68. The left ankle brachial index by the posterior tibial artery is 0.70. The left digital-brachial index is 0.41. . Preliminary report given to Latoya JALLOH. VL/Lower Ext Art Exam w/o Exercis Interpretation Summary Right STACEY 0.41, severe arterial insufficiency. Doppler/PVR waveforms and segmental pressures reveal aorto-iliac disease. Left STACEY 0.7, moderate arterial insufficiency. Doppler/PVR waveforms and segmental pressures reveal aorto-iliac, distal SFA/popliteal disease Ordering Physician: Sammie Strong Referring Physician: Karla Terrell Performed By: Chrissy Albrecht RVT 06/05/24 1723 Date _ Mello Demarco MD CC: RAYO Baron; KRISTI Garza ~ Date Dictated: 06/05/24 1341 Date Transcribed: 06/05/241722 Simulation Developer: Signed [facility] Work Phone: Lower Ext Art Exam w/o Exerc xiang 06-05-2024 Lower Ext Art Exam w/o Exercis [facility] Cardiovascular Services [address] [place] [address] Lower Ext Art Exam w/o Exercis 06/05/241340 MR#: [id number] Acct: [id number] Name: RAMONITA EL Rep #: [id number] : 1940 84 From: Mello Demarco MD Attending Dr: KRISTI Garza Status: REG CLI Ordering Dr: Sammie Strong Date: 06/05/24 Location: [facility] Sex: M C Admitted: Reason For Study Reason For Study: Claudication Procedure A bilateral lower extremity continuous wave Doppler with analog waveform analysis,segmental pressures,and ankle brachial indexes without exercise. Exercise portion of exam not completed due to severe STACEY in right leg. Left Segmental Pressures Left brachial= 162mmHg. Left high thigh = 151mmHg. Left low thigh = 136mmHg. Left calf = 109mmHg. Left posterior tibial artery = 114mmHg. Left dorsalis pedis artery = 110mmHg. Left digit = 67 mmHg. The left dorsalis pedis waveforms are monophasic. The left posterior tibial artery waveforms are monophasic. Right Segmental Pressures Right brachial= 156mmHg. Right high thigh = 94mmHg. Right low thigh = 78mmHg. Right calf = 73mmHg. Right posterior tibial artery = 43mmHg. Right dorsalis pedis artery = 66mmHg. Right digit = 32 mmHg. The right dorsalis pedis waveforms are monophasic. The right posterior tibial artery waveforms are monophasic. Indices The right ankle brachial index by the dorsalis pedis is 0.41. The right ankle brachial index by the posterior tibial artery is 0.27. The right digital-brachial index is 0.20. The left ankle brachial index by the dorsalis pedis is 0.68. The left ankle brachial index by the posterior tibial artery is 0.70. The left digital-brachial index is 0.41. . Preliminary report given to Latoya JALLOH. VL/Lower Ext Art Exam w/o Exercis Interpretation Summary Right STACEY 0.41, severe arterial insufficiency. Doppler/PVR waveforms and segmental pressures reveal aorto-iliac disease. Left STACEY 0.7, moderate arterial insufficiency. Doppler/PVR waveforms and segmental pressures reveal aorto-iliac, distal SFA/popliteal disease Ordering Physician: Sammie Strong Referring Physician: Karla Terrell Performed By: Chrissy Albrecht RVT 06/05/24 1723 Date Mello Demarco MD CC: RAYO Baron; KRISTI Garza Date Dictated: 06/05/24 1341 Date Transcribed: 06/05/24 1723 Simulation Developer: Signed [facility] MR/BMS.Jamel 06-03-2024 MR/BMS.BVS [facility] Vascular Surgery [address] [place] [address] OFFICE VISIT Date of Service: 06/03/24 MR#: [id number] Acct: [id number] Name: RAMONITA EL Rep #: [id number] : 1940 Provider: KRISTI Garza Age/Sex: 84/M Location: BMS.BVS Status: Signed Intake Vital Signs 05/18/24 05:24 06/03/24 11:05 Height 5 ft 8 in Weight: 162 lb BP 177/62 H Blood Pressure Location Lt brachial Position Sitting Respiration 16 Pulse 68 Pulse Source Monitor Temp 98.4 F Temp Source Temporal Pulse Oximetry (%) 94 Oxygen Delivery Method room air Intake Visit Reasons: Carotid Artery Stenosis Chief Complaint: Establish Care Hatch Supervisor Required: No Is patient in pain?: Yes Allergies Penicillins Allergy (Verified 01/16/24 04:02) Hives Medications ???Medication ???Instructions ???Recorded ???Confirmed ???Type amlodipine 10 mg tablet 10 mg PO DAILY 05/02/16 06/03/24 H istory clopidogrel 75 mg tablet 75 mg PO DAILY 05/02/16 06/03/24 H istory tamsulosin 0.4 mg capsule (Flomax) 0.4 mg PO DAILY 05/02/16 5 History metoprolol tartrate 100 mg tablet 100 mg PO BID 11/09/20 06/03/24 H istory pantoprazole 20 mg tablet,delayed 20 mg PO DAILY 11/09/20 06/03/24 History release (Protonix) Have you fallen in the past year?: No PFSH Medical History Alcohol use Prostate disease Easy bruising Excessive bleeding Gastric reflux Smoker COPD (chronic obstructive pulmonary disease) Renal calculi Tobacco dependence 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) Encounter for pre-operative cardiovascular clearance Hypertrophy of prostate with urinary obstruction 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 Chronic pancreatitis Atherosclerosis of coronary artery without angina pectoris Essential hypertension Alcoholism Surgical History History of angioplasty of peripheral vessel (09/28/09) History of coronary artery stent placement (08/10/06) Social History Smoking Status: Heavy Smoker (>10/day) HPI HPI HPI: RAMONITA EL, is a 84 M who presents to the office today for evaluation of carotid artery disease as referred by his PCP; he also has concerns regarding LLE pain and history of PAD. He had recent carotid duplex performed at [facility] which demonstrated R ICA stenosis >70% with highest velocity at the origin 362/40 cm/s and L ICA stenosis 50-69% with highest velocity at the proximal ICA 172/23 cm/s. He does not have any history of prior CVA or TIA. No prior carotid interventions. He denies any episodes of focal neurologic symptoms such as facial droop, dysarthria, unilateral weakness or numbness/paresthesias. He also reports a history of PAD with prior revascularization of his LLE by Dr. Kenny at [facility] though is uncertain what kind of procedure he had. I also see in our chart a history of L femoral endarterectomy and L iliac stenting which was remote in 2009. He has continued to have claudication pain in his calf and more recently has developed pain around his knee/distal thigh and reports he was told nothing more could be done for this. The calf pain will resolve after 15 minutes of rest, but the pain closer to his knee is present many times even at rest. He states he since stopped having routine surveillance imaging completed. He denies any ulcerations. ROS General General: No weight change, appetite, fatigue, colon cancer, breast cancer or weakness HEENT HEENT: No difficulty swallowing, eye injury, eye surgery, swollen glands or hoarseness Endo Endocrine: No thyroid disease, diabetes mellitus, thyroid cancer, Hair loss, heat intolerance or cold intolerance Skin Skin: No rash or changing moles Musc Musculoskeletal: No back problems, arthritis, rheumatoid arthritis, gout or joint pain Cardio Cardiovascular: Yes heart disease, high blood pressure, heart attack and heart stent; No murmur, pacemaker, atrial fibrillation, palpitations, shortness of breath with exertion or chest pain Psych Psychiatric: No depression, anxiety or hearing voices Resp Respiratory: Yes shortness of breath, Yes sleep apnea, Yes cough, Yes COPD, No asthma, No emphysema and No wheezing Gastro Gastrointestinal: No abdominal pain, No nausea or vomiting, No diarrhea, No constipation, No blood in stool, Yes acid reflux, No hemorrhoids, No ulcers, No gallbladder problem and No black,tarry stools Severino Hematologic: Yes blood thinners, No blood disorders, No bleeding, No anemia and No blood clots Neuro Neurologic: No system reviewed and no additional complaints, except as documented, No as per HPI, No abnormal gait, (more content not included)... Normal [facility] Ke 05-28-2024 [facility] Telephone (LESLIEWS) -- RAMONITA EL ([id number]) 1940 M NFR Date Time Provider Department 05/28/24 KARLA BARON During your visit today, we recorded the following information about you: Sandy Cardoza, RN 05/28/2024 2:18 PM Signed Pt calling in and states he saw Karla Tod yesterday and she sent a referral to [facility] while he was in the office. He states he spoke with them and they did not receive any referral or paperwork. Called and spoke with scheduling for vascular surgery and they state they did not receive anything. Referral order, carotid artery ultrasound results and Karla's office note faxed to [facility] vascular surgery at [phone]. Sandy Cardoza, RN 05/28/2024 2:55 PM Signed Called to confirm that fax went through. Per Smiley in scheduling, she received the paperwork and faxed it to [facility]. She gave their phone number of [phone]. Called and had to leave a [facility]. stating pt's name and and the need for referral and to confirm they had received the order. Left the pt's phone number and asked them to contact him. Allergies As of Date: 05/28/2024 Noted Allergy Reaction DUST MITES 12/13/2006 LIPITOR (ATORVASTATIN) 12/04/2007 Comments: myalgia LISINOPRIL 12/04/2007 Comments: cough PENICILLINS 10/14/2004 4 - Hives PLETAL (CILOSTAZOL) 09/04/2019 14 - Other: See Comments Comments: chest pain PRAVASTATIN 05/10/2015 17 - Myalgia Date Reviewed: 05/27/2024 Reviewed by: Heavenly Valdes LPN - Fully Assessed Reason for Visit: Consult [502] Cmt: to [facility] Prescriptions as of 05/28/2024 - gabapentin (NEURONTIN) 100 mg capsule Start one pill by mouth at bedtime X 2 nights, then increase to taking medication twice daily for 2 days, then increase medication three times daily thereafter. - finasteride (PROSCAR) 5 mg tablet Take 5 mg by mouth once daily. - losartan (COZAAR) 25 mg tablet Take 1 tablet by mouth once daily. - brimonidine 0.2 % drop, timolol maleate 0.5 % drop - hydrOXYzine HCl (ATARAX) 25 mg tablet Take 1 tablet by mouth every 8 hours as needed for anxiety. - metoprolol tartrate, short acting, (LOPRESSOR) 100 mg tablet Take 1 tablet by mouth two times a day. - tiZANidine (ZANAFLEX) 4 mg tablet Take 0.5-1 tablets by mouth at bedtime as needed (muscle spasms/insomnia). - amLODIPine (NORVASC) 10 mg tablet Take 1 tablet by mouth once daily. - clopidogrel (PLAVIX) 75 mg tablet Take 1 tablet by mouth once daily. - tamsulosin (FLOMAX) 0.4 mg Take 1 capsule by mouth once daily. - pantoprazole DR (PROTONIX) 20 mg tablet TAKE 1 TABLET BY MOUTH 1/2 HOUR BEFORE BREAKFAST ON AN EMPTY STOMACH ONCE DAILY - timolol maleate (TIMOPTIC) 0.5 % ophthalmic solution - latanoprost (XALATAN) 0.005 % ophthalmic solution Problem List As Of Date 05/28/2024 Noted Resolved Essential hypertension, benign [I10] 12/10/2006 Coronary atherosclerosis [I25.10] 12/10/2006 BPH with obstruction/lower urinary tract sympto*08/15/2007 Carotid artery bruit [R09.89] 11/20/2008 10/18/2011 Allergic Rhinitis [J30.9] 05/26/2009 S/P coronary artery stent placement [Z95.5] 08/10/2006 Hyperlipidemia LDL Goal <70 [E78.5] 08/17/2009 Sinus congestion [R09.81] 12/12/2011 2016 Dupuytren's contracture of left hand [M72.0] 01/25/2012 09/06/2017 Tobacco abuse [Z72.0] 05/22/2013 Alcohol abuse [F10.10] 05/22/2013 UTI (lower urinary tract infection) [N39.0] 09/23/2013 2014 BPH (benign prostatic hyperplasia) [N40.0] 09/23/2013 2016 Guaiac positive stools [R19.5] 05/07/2015 03/17/2016 Occult blood in stools [R19.5] 05/10/2015 03/17/2016 Gastroesophageal reflux disease [K21.9] 05/10/2015 Poor sleep [Z72.820] 05/10/2015 Depression [F32.A] 05/10/2015 03/30/2017 Peripheral arterial disease (HCC) [I73.9] 03/01/2016 Acute blood loss anemia [D62] 03/02/2016 09/06/2017 Hypoxemia [R09.02] 03/05/2016 03/17/2016 Pneumonia [J18.9] 03/05/2016 03/17/2016 Disorder of lymphatic vessel [I89.9] 04/04/2016 Malnutrition of mild degree (HCC) [E44.1] 04/11/2016 03/30/2017 Hypertension [I10] 09/06/2017 Nicotine dependence [F17.200] 09/06/2017 Stented coronary artery [Z95.5] 09/06/2017 Chronic anxiety [F41.9] 10/22/2017 Psoriasis (a type of skin inflammation) [L40.9] 08/15/2018 Calcium oxalate stones [N20.0] 06/27/2019 Proteinuria [R80.9] 06/27/2019 Microscopic hematuria [R31.29] 06/27/2019 Elevated PSA [R97.20] 03/09/2020 History of endarterectomy [Z98.890] 09/23/2020 Chronic interstitial lung disease (HCC) [J84.9] 09/23/2020 Pancreatic calcification [K86.89] 10/03/2020 Diverticulosis of colon [K57.30] 10/03/2020 Adrenal adenoma, left [D35.02] 10/03/2020 Bladder stone [N21.0] 10/03/2020 Renal calculi [N20.0] 10/03/2020 Encounter for support and coordination of trans*12/12/2020 Chronic pancreatitis (HCC) [K86.1] 10/10/2022 (more content not included)... Normal [facility] CNOVon 05-27-2024 CNOV Office Visit (FAMPWS ) -- RAMONITA EL ([id number]) 1940 M NFR Date Time Provider Department 05/27/24 11:00 AM [facility] During your visit today, we recorded the following information about you: Pulse Respiration Blood pressure Weight 64/minute 16/minute 138/64 73.5 kg Karla Baron APRN.FRETTED INSTRUMENT REPAIRER 05/27/2024 11:48 AM Signed Gabapentin 100 mg has been prescribed for your leg pain. For the first 2 nights, take one tablet at bedtime only. After that, take one tablet in the morning and one at bedtime. If you tolerate it well for 2 days, you may increase to 3 times a day (morning, afternoon, and night), but if twice daily controls your pain, you may continue with that dosing. Be aware that gabapentin may cause drowsiness initially. A referral to a vascular specialist at [facility] has been faxed along with your study notes. If you do not hear from them, please call our office. A dedicated thyroid ultrasound is ordered to evaluate the nodule on your thyroid gland. Please schedule the test. You may continue using Tylenol for pain as needed (up to 1,000 mg three times a day). A follow-up appointment is planned in one month to review how the new medication is working. If you experience any side effects or your pain worsens before then, please contact our office. If gabapentin does not adequately control your pain, we may consider a referral for pain management (e.g., Dr. Fitzgerald or Dr. Gonzalez in [facility]). Karla Baron APRN.CNP 05/27/2024 5:23 PM Signed This is a 84 year old male who presents today with: Ramonita is an 84-year-old male with a history of carotid artery stenosis and peripheral vascular disease, presenting for evaluation of bilateral leg pain and follow-up on recent emergency department visits. HISTORY OF PRESENT ILLNESS: Bilateral Leg Pain: - Chronic pain in bilateral lower extremities, from feet to knees, worsening over several years. - Describes pain as pretty bad and all over. - Left leg requires assistance for movement. - Believes pain is due to poor circulation. - Reports numbness and tingling intermittently. - Taking Tylenol 500 mg TID with minimal relief. - Has undergone two surgeries for leg pain in the past, with no relief. - Seen by two surgeons who reportedly stated there was nothing more they could do. - Has seen brake holder in the past but is reluctant to continue due to lack of improvement. Carotid Artery Stenosis: Recently found to have >70% stenosis on the right side. Advised to schedule with vascular; however patient has not done this. - Denies experiencing any symptoms related to carotid artery stenosis. Recent Emergency Department Visits: - Four visits to the emergency department since . - Most recent visit was last week at [facility] for a medication lodged in the throat. Pt reports that he vomited it out prior to ER arrival. EKG was without any signs of STEMI. CBC without leukocytosis, severe anemia, thrombocytopenia. Chest x-ray was unremarkable for pulmonary edema, pneumothorax, pneumonia, or other focal cardiopulmonary abnormality. CMP without evidence of significant electrolyte abnormalities, anion gap, acute kidney injury. Troponins were negative. He was given prophylactic antibiotics to be sure that he did not develop an aspiration pneumonia. Sleep Disturbances: - Reports interrupted sleep, waking up multiple times during the night. - Occasionally gets up to watch TV or eat a snack before returning to bed. - Feels better when able to sleep well. 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 cruciate tear, poss. 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 H - PAST MEDICAL HISTORY OF 1982 laceration wrist, suicidal gesture Radius fracture 06/21/2013 See scanned documents [facility] Tobacco abuse 05/22/2013 Urinary calculus, unspecified 01/05 Renal stone right side; 3 episodes with stones altogether with extraction in 1961 PAST SURGICAL HISTORY Procedure Laterality Date ATHERECTOMY, FEMORAL-POPLITEAL 09/28/2009 right COLONOSCOPY 12/26/2023 COLONOSCOPY FLX DX W/COLLJ SPEC WHEN PFRMD 06/21/2015 Colonoscopy CORONARY ENDARTERCOMY OPEN ANY METHOD 08/10/2006 Angioplasty with stent ECHOCARDIOGRAM 11/24/2020 11/25/[address] (more content not included)... Normal [facility] 12 Lead EKGon 05-18-2024 12 Lead EKG [facility] [address] [place] [address] 12 Lead EKG 05/18/24 0536 MR#: [id number] Acct: [id number] Name: RAMONITA EL Rep #: [id number] : 1940 84 From: Max Morales MD Attending Dr: Status: DEP ER Ordering Dr: Lucien Matthews DO Date: 05/18/24 Location: ED Sex: M C Admitted: Test Reason : SOB Blood Pressure : */* mmHG Vent. Rate : 87 BPM Atrial Rate : 87 BPM P-R Int : 210 ms QRS Dur : 94 ms QT Int : 382 ms P-R-T Axes : 52 80 61 degrees QTcB Int : 459 ms Sinus rhythm with 1st degree A-V block with occasional and consecutive Premature ventricular complexes Abnormal ECG When compared with ECG of 02-May-2016 11:22, Premature ventricular complexes are now Present GA interval has increased Confirmed by Max Morales ([id number]), associate editor KAY SLOAN ([id number]) on 05/21/2024 10:05:57 AM Referred By: Confirmed By: Max Morales 05/21/24 1005 Date Max Morales MD CC: RAYO Baron; Dr. Lucien Matthews DO Signed Normal [facility] Absolute lymphocyte countOrd ered By: Lucien Matthews on 05-18-2024 Lymphocytes Auto (Unsp spec) [#/Vol] 1.33 10*3/uL 0.83-4.51 [facility] Absolute neutrophil countOrd ered By: Lucien Matthews on 05-18-2024 Neutrophils (Bld) [#/Vol] 7.0 10*3/uL 2.0-7.7 [facility] Anion gap in Serum or Plasma Ordered By: Lucien Matthews on 05-18-2024 Anion gap [Moles/Vol] 16 mmol/L High 5-15 [facility] Automated lymphocyte count a s percentage of total leukocytesOrdered By: Lucien Matthews on 05-18-2024 Lymphocytes/100 WBC Auto (Unsp spec) 14.4 % Low 19-41 [facility] BUN/creatinine ratioOrdered By: Lucien Matthews on 05-18-2024 Urea nitrogen/Creatinine [Mass ratio] 16.6 mg/mg 10- [facility] Basic Metabolic Profile (BMP )on 05-18-2024 BUN/CRE 16.6 RATIO Normal 10-20 [facility] Comment on above: Performed By: #### L 100.0100, L500.2500 #### [facility] [address] [place], [address] Calcium [Mass/Vol] 9.5 mg/dL Normal 7.6-11.0 [facility] Comment on above: Performed By: #### L 100.0100, L500.2500 #### [facility] [address] [place], [address] Chloride [Moles/Vol] 103 mmol/L Normal 98-108 [facility] Comment on above: Performed By: #### L 100.0100, L500.2500 #### [facility] [address] [place], [address] CO2 [Moles/Vol] 18.4 mmol/L Low 21.0-32.0 [facility] Comment on above: Performed By: #### L 100.0100, L500.2500 #### [facility] [address] [place], [address] Creatinine [Mass/Vol] 0.81 mg/dL Normal 0.70-1.20 [facility] Comment on above: Performed By: #### L 100.0100, L500.2500 #### [facility] [address] [place], [address] ECRCL 66.85 ml/min Normal 50-250 [facility] Comment on above: Performed By: #### L 100.0100, L500.2500 #### [facility] [address] [place], [address] GAP 16 High 5-15 [facility] Comment on above: Performed By: #### L 100.0100, L500.2500 #### [facility] [address] [place], [address] GFR/1.73 sq M.predicted among non-blacks MDRD (S/P/Bld) [Vol rate/Area] 87 mL/min/{1.73_m2} Normal >60 [facility] Comment on above: Result Comment: mL/m in/1.73m2 CKD-EPI Creatinine Equation (2020) Performed By: #### L 100.0100, L500.2500 #### [facility] [address] [place], [address] Glucose [Mass/Vol] 131 mg/dL High 70-99 [facility] Comment on above: Performed By: #### L 100.0100, L500.2500 #### [facility] [address] [place], [address] Potassium [Moles/Vol] 3.8 mmol/L Normal 3.3-5.1 [facility] Comment on above: Performed By: #### L 100.0100, L500.2500 #### [facility] [address] [place], [address] Sodium [Moles/Vol] 138 mmol/L Normal 133-145 [facility] Comment on above: Performed By: #### L 100.0100, L500.2500 #### [facility] [address] [place], [address] Urea nitrogen [Mass/Vol] 14 mg/dL Normal 4-19 [facility] Comment on above: Performed By: #### L 100.0100, L500.2500 #### [facility] [address] [place], [address] Basophil percentageOrdered B y: Lucien Cassie on 05-18-2024 Basophils/100 WBC (Bld) 0.8 % 0-1 [facility] CBC W/Diff, Automatedon 05-06 Absolute Lymph 1.33 X10 3/uL Normal 0.83-4.51 [facility] Comment on above: Performed By: #### L 100.0100, L500.2500 #### [facility] [address] [place], [address] Absolute Neut 7.0 X10 3/uL Normal 2.0-7.7 [facility] Comment on above: Performed By: #### L 100.0100, L500.2500 #### [facility] [address] [place], [address] Basophils/100 WBC (Bld) 0.8 % Normal 0-1 [facility] Comment on above: Performed By: #### L 100.0100, L500.2500 #### [facility] [address] [place], [address] Eosinophils/100 WBC (Bld) 0.8 % Normal 0-5 [facility] Comment on above: Performed By: #### L 100.0100, L500.2500 #### [facility] [address] [place], [address] Erythrocyte distribution width (RBC) [Ratio] 13.2 % Normal 11.6-14.6 [facility] Comment on above: Performed By: #### L 100.0100, L500.2500 #### [facility] [address] [place], [address] Hematocrit (Bld) [Volume fraction] 44.9 % Normal 40-54 [facility] Comment on above: Performed By: #### L 100.0100, L500.2500 #### [facility] [address] [place], [address] Hemoglobin (Bld) [Mass/Vol] 16.0 g/dL Normal 13.0-16.5 [facility] Comment on above: Performed By: #### L 100.0100, L500.2500 #### [facility] [address] [place], [address] IG% 0.300 Normal 0.0-0.9 [facility] Comment on above: Result Comment: IG% - Immature Granulocytes (promyelocytes, myelocytes and metamyelocytes) > 1% indicates that a LEFT SHIFT is Present. Performed By: #### L 100.0100, L500.2500 #### [facility] [address] [place], [address] Lymphocytes/100 WBC (Bld) 14.4 % Low 19-41 [facility] Comment on above: Performed By: #### L 100.0100, L500.2500 #### [facility] [address] [place], [address] MCH (RBC) [Entitic mass] 31.9 pg Normal 27.0-32.0 [facility] Comment on above: Performed By: #### L 100.0100, L500.2500 #### [facility] [address] [place], [address] MCHC (RBC) [Mass/Vol] 35.6 g/dL Normal 32-36 [facility] Comment on above: Performed By: #### L 100.0100, L500.2500 #### [facility] [address] [place], [address] MCV (RBC) [Entitic vol] 89.4 fL Normal 80-94 [facility] Comment on above: Performed By: #### L 100.0100, L500.2500 #### [facility] [address] [place], [address] Monocytes/100 WBC (Bld) 8.5 % Normal 0-10 [facility] Comment on above: Performed By: #### L 100.0100, L500.2500 #### [facility] [address] [place], [address] Neutrophils/100 WBC (Bld) 75.2 % High 47-70 [facility] Comment on above: Performed By: #### L 100.0100, L500.2500 #### [facility] [address] [place], [address] Nucleated RBC (Bld) [#/Vol] 0 10*3/uL Normal 0-5 [facility] Comment on above: Performed By: #### L 100.0100, L500.2500 #### [facility] [address] [place], [address] Platelet mean volume (Bld) [Entitic vol] 10.3 fL Normal 6.2-12.0 [facility] Comment on above: Performed By: #### L 100.0100, L500.2500 #### [facility] [address] [place], [address] Platelets (Bld) [#/Vol] 269 10*3/uL Normal 150-450 [facility] Comment on above: Performed By: #### L 100.0100, L500.2500 #### [facility] [address] [place], [address] RBC (Bld) [#/Vol] 5.02 10*6/uL Normal 4.6-6.2 [facility] Comment on above: Performed By: #### L 100.0100, L500.2500 #### [facility] [address] [place], [address] RDW SD 43.2 fl Normal 35.1-43.9 [facility] Comment on above: Performed By: #### L 100.0100, L500.2500 #### [facility] [address] [place], [address] WBC (Bld) [#/Vol] 9.3 10*3/uL Normal 4.4-11.0 [facility] Comment on above: Performed By: #### L 100.0100, L500.2500 #### [facility] [address] [place], [address] Carbon dioxide, total [Moles /volume] in Central venous bloodOrdered By: Lucien Matthews on 05-18-2024 CO2 [Moles/Vol] 18.4 mmol/L Low 21.0-32.0 [facility] Chest 1 View (Portable)on Chest 1 View (Portable) [facility] Imaging Services [address] [place] [address] Chest 1 View (Portable) MR#: [id number] Acct: [id number] Name: RAMONITA EL Rep #: [id number] : 1940 M 84 From: Max Alvarez i, MD PCP: Karla Baron, [employer] Status: [facility] ER Study: Chest 1 View (Portable) Date of Exam: 05/18/24 Exam# [id number] Ordering Dr: Lucien Matthews DO PROCEDURE: CHEST 1 VIEW (PORTABLE) 05/18/2024 REASON FOR EXAM: SOB TECHNIQUE: Frontal view of the chest. COMPARISON: None. FINDINGS: The cardiac silhouette is within normal limits. Streaky changes seen at the right lung base could represent subsegmental atelectasis. Pulmonary vascular congestion is noted. The lungs are some hyperlucent and hyperexpanded. RAD/Chest 1 View (Portable) IMPRESSION: Pulmonary vascular congestion/CHF. Correlate clinically. Streaky changes right lung base could represent subsegmental atelectasis. Pneumonia to be ruled out. Reading Location: [id number] CC: [employer]-C Karla Baron; Dr. Lucien Matthews DO Simulation Developer: Signed Normal [facility] Chloride assayOrdered By: Sony Matthews on 05-18-2024 Chloride [Moles/Vol] 103 mmol/L 98-108 [facility] Emergency Department Summary on 05-18-2024 Emergency Department Summary [facility] Medical Records Department [address] [place] [address] Emergency Department Summary 05/18/24 MR#: [id number] Acct: [id number] Name: RAMONITA EL Rep #: [id number] : 1940 84 From: Lucien Matthews DO PCP: RAYO Pillai Status:REG ER Location: ED HPI History of Present Illness Chief Complaint: Shortness of Breath 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) Encounter for pre-operative cardiovascular clearance Hypertrophy of prostate with urinary obstruction 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 Chronic pancreatitis Atherosclerosis of coronary artery without angina pectoris Essential hypertension Alcoholism Home Medications ???Medication ???Instructions ???Recorded ???Last Taken ???Type amlodipine 10 mg tablet 10 mg PO DAILY 05/02/16 12/08/20 0 4:00 History clopidogrel 75 mg tablet 75 mg PO DAILY 05/02/16 11/30/20 H istory tamsulosin 0.4 mg capsule (Flomax) 0.4 mg PO DAILY 05/02/16 1 History hydroxyzine HCl 25 mg tablet 25 mg PO DAILY PRN rash 11/09/20 U nknown History metoprolol tartrate 100 mg tablet 100 mg PO BID 11/09/20 12/08/20 0 4:00 History pantoprazole 20 mg tablet,delayed 20 mg PO DAILY 11/09/20 12/07/20 History release (Protonix) ibuprofen 600 mg tablet 600 mg PO Q6H PRN pain #20 tabs Unknown Rx ciprofloxacin HCl 500 mg tablet 500 mg PO BID #6 TABLETS 02/11/24 Unknown Rx levofloxacin 750 mg tablet 750 mg PO DAILY 5 days #5 tabs Unknown Rx Allergy/AdvReac Type Severity Reaction Status Date / Time Penicillins Allergy Hives Verified 01/16/24 04:02 Surgical History History of angioplasty of peripheral vessel (09/28/09) History of coronary artery stent placement (08/10/06) Social History Smoking Status: Heavy Smoker (>10/day) EXAM Physical Exam Const Vital Signs: 05/18/24 05:24 05/18/24 05:30 05/18/24 05:39 Temperature 98.2 F Temperature Source Oral Pulse Rate 102 H Respiratory Rate 22 H Respiratory Effort Normal Blood Pressure 213/86 H Blood Pressure Mean 128 Pulse Ox 97 95 Oxygen Delivery Method Room Air Room Air Room Air 05/18/24 06:24 05/18/24 06:28 05/18/24 06:49 Temperature 98.1 F 98 F Temperature Source Oral Oral Pulse Rate 63 61 65 Respiratory Rate 18 18 19 H Respiratory Effort Blood Pressure 167/70 H 158/63 H 153/64 H Blood Pressure Mean 102 94 93 Pulse Ox 97 92 92 Oxygen Delivery Method Room Air Room Air Room Air MDM MDM MDM Narrative Medical decision making narrative: HISTORY OF PRESENT ILLNESS: Chief complaint: Shortness of breath 84-year-old male history of of COPD, CAD status post stent, peripheral artery disease, history of smoking, hypertension, alcoholism, presents with shortness of breath. The patient states he choked on his pill. He then vomited back up. He states now short of breath. When asked if he has chest pain patient says a little bit. He endorses tightness in his lower sternal area. Notes he feels better now but still feels slightly short of breath. The patient denies recent surgery in the last 4 weeks or immobilization in the last 3 days, denies previous diagnosis of DVT or PE, hemoptysis, unilateral leg swelling or malignancy with treatment the last 6 months or palliative. No estrogen use noted. REVIEW OF SYSTEMS: Pertinent positives: Shortness of breath, vomiting Pertinent negatives: Leg swelling, syncope, fever PHYSICAL EXAM: Nursing triage notes reviewed, Vital signs reviewed Constitutional: please see mdm HENT: MMM Eyes: Pupils equal round and reactive to light, Extraocular muscles intact Neck: No stridor, no JVD, full neck ROM Lungs: Clear to auscultation, No wheezing or rales. No increased work of breathing, no conversational dyspnea, no accessory muscle use, no nasal flaring. No respiratory distress noted Heart: Regular rate and rhythm, No murmurs, No rubs and No gallops, 2+ distal pulses (radial, femoral, posterior tibial) in all extremities Abdomen: Soft, there is no tenderness, rigidity, rebound or guarding, no obvious peritoneal signs, no palpable pulsatile abdominal masses, no auscultated abdominal bruit : No CVAT Extremities: No edema Neuro: No new focal neurological deficits, cranial nerves II through XII intact, 5/5 strength in all present extremities. Intact sensation to light touch in all present (more content not included)... Normal [facility] Eosinophil percentageOrdered By: Lucien Matthews on 05-18-2024 Eosinophils/100 WBC (Bld) 0.8 % 0-5 [facility] Erythrocyte distribution wid th (RBC) [Ratio]Ordered By: Lucien Matthews on 05-18-2024 Erythrocyte distribution width (RBC) [Entitic vol] 43.2 fL 35.1-43.9 [facility] Erythrocyte distribution wid th ratioOrdered By: Lucien Matthews on 05-18-2024 Erythrocyte distribution width (RBC) [Ratio] 13.2 % 11.6-14.6 [facility] Erythrocyte distribution wid th standard deviationOrdered By: Lucien Matthews on 05-18-2024 Erythrocyte distribution width (RBC) [Ratio] 43.2 fl 35.1-43.9 [facility] Estimation of creatinine john aranceOrdered By: Lucien Matthews on 05-18-2024 Estimated Creatinine Clearance Calc 66.85 ml/min 50-250 [facility] GFR/1.73 sq M.predicted cynthia g non-blacks MDRD (S/P/Bld) [Vol rate/Area]Ordered By: Lucien Matthews on 05-18-2024 Estimated GFR (MDRD) Non-Af Amer 87 >60 [facility] Comment on above: mL/min/1.73m2 CKD-EP I Creatinine Equation (2020) Glomerular filtration rate ( GFR) estimation/1.73 sq m using serum, plasma, or whole bOrdered By: Lucien Matthews on 05-18-2024 GFR/1.73 sq M.predicted among non-blacks MDRD (S/P/Bld) [Vol rate/Area] 87 mL/min/{1.73_m2} >60 [facility] Comment on above: mL/min/1.73m2 CKD-EP I Creatinine Equation (2020) Hematocrit Auto (Bld) [Volum e fraction]Ordered By: Lucien Matthews on 05-18-2024 Hematocrit (Bld) [Volume fraction] 44.9 % 40-54 [facility] Hemoglobin measurementOrdere d By: Lucien Matthews on 05-18-2024 Hemoglobin (Bld) [Mass/Vol] 16.0 g/dL 13.0-16.5 [facility] Immature granulocytes/100 WB C Auto (Bld)Ordered By: Lucien Matthews on 05-18-2024 Immature granulocytes/100 WBC (Bld) 0.300 % 0.0-0.9 [facility] Comment on above: IG% - Immature Granu locytes (promyelocytes, myelocytes and metamyelocytes) > 1% indicates that a LEFT SHIFT is Present. L501.4021on 05-18-2024 Trop T High Sen 17 ng/L Normal <=22 [facility] Comment on above: Order Comment: *PLEA SE ADD ON PER * Performed By: #### L [id number] ####[facility] [id number] [place], [address] Lymphocytes Auto (Unsp spec) [#/Vol]Ordered By: Lucien Matthews on 05-18-2024 Lymphocytes (Bld) [#/Vol] 1.33 10*3/uL 0.83-4.51 [facility] Lymphocytes/100 WBC Auto (Un sp spec)Ordered By: Lucien Matthews on 05-18-2024 Lymphocytes/100 WBC (Bld) 14.4 % Low 19-41 [facility] MCV (mean corpuscular volume ) determinationOrdered By: Lucien Matthews on 05-18-2024 MCV (RBC) [Entitic vol] 89.4 fL 80-94 [facility] Mean corpuscular hemoglobin (MCH) determinationOrdered By: Lucien Matthews on 05-18-2024 MCH (RBC) [Entitic mass] 31.9 pg 27.0-32.0 [facility] Mean corpuscular hemoglobin concentration (MCHC) determinationOrdered By: Lucien Matthews on 05-18-2024 MCHC (RBC) [Mass/Vol] 35.6 g/dL 32-36 [facility] Mean platelet volume determi nationOrdered By: Lucien Matthews on 05-18-2024 Platelet mean volume (Bld) [Entitic vol] 10.3 fL 6.2-12.0 [facility] Monocyte percentageOrdered B y: Lucien Matthews on 05-18-2024 Monocytes/100 WBC (Bld) 8.5 % 0-10 [facility] Neutrophil percentageOrdered By: Lucien Matthews on 05-18-2024 Neutrophils/100 WBC (Bld) 75.2 % High 47-70 [facility] Nucleated red blood cell per centageOrdered By: Lucien Matthews on 05-18-2024 Nucleated RBC/100 WBC (Bld) [Ratio] 0 % 0-5 [facility] Platelet countOrdered By: Sony Matthews on 05-18-2024 Platelets (Bld) [#/Vol] 269 10*3/uL 150-450 [facility] Potassium (Unsp spec) [Mass/ Vol]Ordered By: Lucien Matthews on 05-18-2024 Potassium [Moles/Vol] 3.8 mmol/L 3.3-5.1 [facility] Potassium measurement (mass/ volume)Ordered By: Lucien Matthews on 05-18-2024 Potassium (Unsp spec) [Mass/Vol] 3.8 mmol/L 3.3-5.1 [facility] RBC Auto (Bld) [#/Vol]Ordere d By: Lucien Matthews on 05-18-2024 RBC (Bld) [#/Vol] 5.02 10*6/uL 4.6-6.2 [facility] Serum creatinine measurement (mass/volume)Ordered By: Lucien Matthews on 05-18-2024 Creatinine [Mass/Vol] 0.81 mg/dL 0.70-1.20 [facility] Serum glucose measurement (m ass/volume)Ordered By: Lucien Matthews on 05-18-2024 Glucose [Mass/Vol] 131 mg/dL High 70-99 [facility] Serum or plasma calcium heather urement (mass/volume)Ordered By: Lucien Matthews on 05-18-2024 Calcium [Mass/Vol] 9.5 mg/dL 7.6-11.0 [facility] Serum or plasma urea nitroge n measurement (mass/volume)Ordered By: Lucien Matthews on 05-18-2024 Urea nitrogen [Mass/Vol] 14 mg/dL 4-19 [facility] Sodium levelOrdered By: Kd Matthews on 05-18-2024 Sodium [Moles/Vol] 138 mmol/L 133-145 [facility] Troponin T.cardiac High sens itivity method [Mass/Vol]Ordered By: Lucien Matthews on 05-18-2024 Troponin T High Sensitivity 17 ng/L <22 [facility] Troponin T.cardiac [Mass/vol ume] in Serum or Plasma by High sensitivity methodOrdered By: Lucien Matthews on 05-18-2024 Troponin T.cardiac High sensitivity method [Mass/Vol] 17 ng/L <22 [facility] White blood cell (WBC) count Ordered By: Lucien Matthews on 05-18-2024 WBC (Bld) [#/Vol] 9.3 10*3/uL 4.4-11.0 [facility] US CAROTID [facility]ERIES [facility] 04-03-2024 US [facility]ID [facility]ERIES [facility] Non-Invasive Vascular Laboratory [facility] Carotid Duplex Bilateral/Complete Date of service/time: 04/03/2024 1:30:23 PM Name: MR. RAMONITA EL Date of : 1940 Age: 84 years Gender: M Clinical Indication Follow-up study on a patient with known carotid disease. TECHNIQUE -------- A carotid duplex ultrasound examination was performed, including grayscale imaging and color Doppler and spectral Doppler examination of the below mentioned arteries. FINDINGS -------- RIGHT SIDE Common carotid artery: Origin: PSV: 117 cm/s. EDV: 0 cm/s. Proximal: PSV: 62 cm/s. EDV: 0 cm/s. Mid: PSV: 88 cm/s. EDV: 9 cm/s. Distal: PSV: 85 cm/s. EDV: 8 cm/s. Mild heterogeneous plaque at distal. Internal carotid artery: Origin: PSV: 362 cm/s. EDV: 40 cm/s. Proximal: PSV: 267 cm/s. EDV: 27 cm/s. Mid: PSV: 94 cm/s. EDV: 17 cm/s. Distal: PSV: 68 cm/s. EDV: 12 cm/s. Moderate heterogeneous plaque from origin to proximal. ICA/CCA Ratio: 4.3 External carotid artery: Origin: PSV: 364 cm/s. EDV: 0 cm/s. Proximal: PSV: 338 cm/s. EDV: 0 cm/s. Moderate heterogeneous plaque at origin. Subclavian artery: Origin: PSV: 185 cm/s. EDV: 0 cm/s. Proximal: PSV: 100 cm/s. EDV: 0 cm/s. Mild/moderate heterogeneous plaque at origin. Innominate artery: PSV: 147 cm/s. EDV: 0 cm/s. Vertebral artery: PSV: 83 cm/s. EDV: 0 cm/s. LEFT SIDE Common carotid artery: Proximal: PSV: 68 cm/s. EDV: 7 cm/s. Mid: PSV: 125 cm/s. EDV: 12 cm/s. Distal: PSV: 153 cm/s. EDV: 0 cm/s. Mild heterogeneous plaque from mid to distal. Internal carotid artery: Origin: PSV: 154 cm/s. EDV: 15 cm/s. Proximal: PSV: 172 cm/s. EDV: 23 cm/s. Mid: PSV: 104 cm/s. EDV: 11 cm/s. Distal: PSV: 72 cm/s. EDV: 14 cm/s. Mild heterogeneous plaque from origin to proximal. ICA/CCA Ratio: 1.1 External carotid artery: Origin: PSV: 279 cm/s. EDV: 0 cm/s. Mild heterogeneous plaque at origin. Subclavian artery: Proximal: PSV: 302 cm/s. EDV: 0 cm/s. Mild heterogeneous plaque at proximal. Vertebral artery: PSV: 138 cm/s. EDV: 31 cm/s. IMPRESSION Please note: the new carotid interpretation criteria are used as recommended by [facility]. When compared with the prior study, of 11/19/2015 progression of disease is noted on the right side (increase in peak systolic velocities) and no significant change is noted on the left side. RIGHT SIDE Common carotid artery: Plaque visualized without evidence of hemodynamically significant stenosis. Internal carotid artery: >70% stenosis consistent with severe carotid artery disease. Consider referral to a vascular specialist unless already implemented. External carotid artery: Elevated velocities and plaque noted. Vertebral artery: Patent and antegrade flow noted. High resistive signal suggests non-dominant vessel or more distal disease; clinical correlation is suggested. Subclavian artery: Plaque visualized without evidence of hemodynamically significant stenosis. LEFT SIDE Incidentally detected thyroid nodule measuring 1.60 cm in maximum diameter; dedicated thyroid ultrasound is recommended. Common carotid artery: Plaque visualized without evidence of hemodynamically significant stenosis. Internal carotid artery: <50% stenosis consistent with mild carotid artery disease. Subclavian artery: 50-99% stenosis. Technologist: Claire Berry RVT, RDMS Ordering physician: KARLA BARON Interpreting physician: JOSE ALFREDO Rainey DO Final CC [employer] Medical Image : [id number] See Link below for Image [facility] RAMONITA EL ([id number]) 1940 M NFR Date Time Provider Department 03/03/24 [facility] During your visit today, we recorded the following information about you: Karla Baron APRN.FRETTED INSTRUMENT REPAIRER 03/03/2024 6:52 PM Signed Can please let patient know that I received his labs. He likes his labwork explained in detail with him. Please do not leave general message. His cholesterol labwork is stable. His bad cholesterol is still elevated, but it is improved from the last time we checked it (he went from 174 to 150.). His healthy cholesterol is near his goal. In men we like it to be over 40 and he was 39. Please work on healthy diet and increasing exercise/activity. His electrolytes, kidney function, glucose and liver enzymes were all normal. His PSA (prostate enzyme was elevated). I suspect this is from all the urinary issues that he has recently been through. I would like to have him check this again in a month to see if it has normalized. The order is in and he just needs to stop in and get it completed. His blood count (red blood cells, white blood cells, and platelets) were all normal. After he left his appointment, when reviewing his chart, I noticed that is has been several years since he had an ultrasound done of the carotid arteries in the neck. I also put an order in to get this done. Kay Anguiano, ROBERT 03/03/2024 7:12 PM Signed Called and left a voicemail for the Patient to call back and ask for a nurse to receive the providers message. ROBERT Hernandez Barbara, RN 03/04/2024 8:22 AM Signed Pt returned the call and notified of results and Karla Tod's explanations. He is notified of need to repeat PSA lab in a month and transferred to [facility] in scheduling to set up carotid ultrasound. Allergies As of Date: 03/03/2024 Noted Allergy Reaction DUST MITES 12/13/2006 LIPITOR (ATORVASTATIN) 12/04/2007 Comments: myalgia LISINOPRIL 12/04/2007 Comments: cough PENICILLINS 10/14/2004 4 - Hives PLETAL (CILOSTAZOL) 09/04/2019 14 - Other: See Comments Comments: chest pain PRAVASTATIN 05/10/2015 17 - Myalgia Date Reviewed: 02/29/2024 Reviewed by: Heavenly Valdes LPN - Fully Assessed Reason for Visit: Results [95] Primary Visit Diagnosis:Elevated PSA [R97.20] Other Visit Diagnosis:Bilateral carotid artery stenosis [I65.23] Order(s):PROSTATE-SPECIFIC ANTIGEN DIAGNOSTIC [SQPSA] Order #: [id number] FUTURE CAROTID ARTERIES [facility] [[id number]] Order #: [id number] FUTURE Prescriptions as of 03/04/2024 - finasteride (PROSCAR) 5 mg tablet Take 5 mg by mouth once daily. - losartan (COZAAR) 25 mg tablet Take 1 tablet by mouth once daily. - brimonidine 0.2 % drop, timolol maleate 0.5 % drop - hydrOXYzine HCl (ATARAX) 25 mg tablet Take 1 tablet by mouth every 8 hours as needed for anxiety. - metoprolol tartrate, short acting, (LOPRESSOR) 100 mg tablet Take 1 tablet by mouth two times a day. - tiZANidine (ZANAFLEX) 4 mg tablet Take 0.5-1 tablets by mouth at bedtime as needed (muscle spasms/insomnia). - amLODIPine (NORVASC) 10 mg tablet Take 1 tablet by mouth once daily. - clopidogrel (PLAVIX) 75 mg tablet Take 1 tablet by mouth once daily. - tamsulosin (FLOMAX) 0.4 mg Take 1 capsule by mouth once daily. - pantoprazole DR (PROTONIX) 20 mg tablet TAKE 1 TABLET BY MOUTH 1/2 HOUR BEFORE BREAKFAST ON AN EMPTY STOMACH ONCE DAILY - timolol maleate (TIMOPTIC) 0.5 % ophthalmic solution - latanoprost (XALATAN) 0.005 % ophthalmic solution Problem List As Of Date 03/03/2024 Noted Resolved Essential hypertension, benign [I10] 12/10/2006 Coronary atherosclerosis [I25.10] 12/10/2006 BPH with obstruction/lower urinary tract sympto*08/15/2007 Carotid artery bruit [R09.89] 11/20/2008 10/18/2011 Allergic Rhinitis [J30.9] 05/26/2009 S/P coronary artery stent placement [Z95.5] 08/10/2006 Hyperlipidemia LDL Goal <70 [E78.5] 08/17/2009 Sinus congestion [R09.81] 12/12/2011 2016 Dupuytren's contracture of left hand [M72.0] 01/25/2012 09/06/2017 Tobacco abuse [Z72.0] 05/22/2013 Alcohol abuse [F10.10] 05/22/2013 UTI (lower urinary tract infection) [N39.0] 09/23/2013 2014 BPH (benign prostatic hyperplasia) [N40.0] 09/23/2013 2016 Guaiac positive stools [R19.5] 05/07/2015 03/17/2016 Occult blood in stools [R19.5] 05/10/2015 03/17/2016 Gastroesophageal reflux disease [K21.9] 05/10/2015 Poor sleep [Z72.820] 05/10/2015 Depression [F32.A] 05/10/2015 03/30/2017 Peripheral arterial disease (HCC) [I73.9] 03/01/2016 Acute blood loss anemia [D62] 03/02/2016 09/06/2017 Hypoxemia [R09.02] 03/05/2016 03/17/2016 Pneumonia [J18.9] 03/05/2016 03/17/2016 Disorder of lymphatic vessel [I89.9] 04/04/2016 Malnutrition of mild degree (HCC) [E44.1] 04/11/2016 03/30/2017 Hypertension [I10] 09/06/2017 Nicotine dependence [F17.200] 09/06/2017 Stented (more content not included)... Normal [facility] CBC W Auto Differential pane l (Bld)on 01-24-2025 Basophils (Bld) [#/Vol] 0.07 10*3/uL Normal <0.11 [facility] Comment on above: Order Comment: Speci men Type: BLOOD SPECIMENOrdering Facility: [facility] Address: [address] [place] [address] Performed By: #### 5 7021-8 ####[facility] LABCLIA [id number] [place] [address] [place] Basophils/100 WBC (Bld) 0.9 % Normal [facility] Comment on above: Order Comment: Speci men Type: BLOOD SPECIMENOrdering Facility: [facility] Address: [address] [place] [address] Performed By: #### 5 7021-8 ####[facility] LABCLIA [id number] [place] [address] [place] Differential cell count method Nom (Bld) Auto Normal [facility] Comment on above: Order Comment: Speci men Type: BLOOD SPECIMENOrdering Facility: [facility] Address: [address] [place] [address] Performed By: #### 5 7021-8 ####[facility] LABCLIA [id number] [place] [address] [place] Eosinophils (Bld) [#/Vol] 0.13 10*3/uL Normal <0.46 [facility] Comment on above: Order Comment: Speci men Type: BLOOD SPECIMENOrdering Facility: [facility] Address: [address] [place] [address] Performed By: #### 5 7021-8 ####[facility] LABCLIA [id number] [place] [address] [place] Eosinophils/100 WBC (Bld) 1.7 % Normal [facility] Comment on above: Order Comment: Speci men Type: BLOOD SPECIMENOrdering Facility: [facility] Address: [address] [place] [address] Performed By: #### 5 7021-8 ####[facility] LABCLIA [id number] [place] [address] [place] Erythrocyte distribution width (RBC) [Ratio] 13.3 % Normal 11.5-15.0 [facility] Comment on above: Order Comment: Speci men Type: BLOOD SPECIMENOrdering Facility: [facility] Address: [address] [place] [address] Performed By: #### 5 7021-8 ####[facility] LABCLIA [id number] [place] [address] [place] Hematocrit (Bld) [Volume fraction] 47.5 % Normal 39.0-51.0 [facility] Comment on above: Order Comment: Speci men Type: BLOOD SPECIMENOrdering Facility: [facility] Address: [address] [place] [address] Performed By: #### 5 7021-8 ####[facility] LABIA [id number] [place] [address] [place] Hemoglobin (Bld) [Mass/Vol] 15.7 g/dL Normal 13.0-17.0 [facility] Comment on above: Order Comment: Speci men Type: BLOOD SPECIMENOrdering Facility: [facility] Address: [address] [place] [address] Performed By: #### 5 7021-8 ####[facility] LABIA [id number] [place] [address] [place] Immature granulocytes (Bld) [#/Vol] 10*3/uL Normal <0.10 [facility] Comment on above: Order Comment: Speci men Type: BLOOD SPECIMENOrdering Facility: [facility] Address: [address] [place] [address] Performed By: #### 5 7021-8 ####[facility] LABIA [id number] [place] [address] [place] Immature granulocytes/100 WBC (Bld) 0.1 % Normal [facility] Comment on above: Order Comment: Speci men Type: BLOOD SPECIMENOrdering Facility: [facility] Address: [address] [place] [address] Performed By: #### 5 7021-8 ####[facility] LABCLIA [id number] [place] [address] [place] Lymphocytes (Bld) [#/Vol] 1.30 10*3/uL Normal 1.00-4.00 [facility] Comment on above: Order Comment: Speci men Type: BLOOD SPECIMENOrdering Facility: [facility] Address: [address] [place] [address] Performed By: #### 5 7021-8 ####[facility] LABCLIA [id number] [place] [address] [place] Lymphocytes/100 WBC (Bld) 17.0 % Normal [facility] Comment on above: Order Comment: Speci men Type: BLOOD SPECIMENOrdering Facility: [facility] Address: [address] [place] [address] Performed By: #### 5 7021-8 ####[facility] LABCLIA [id number] [place] [address] [place] MCH (RBC) [Entitic mass] 31.2 pg Normal 26.0-34.0 [facility] Comment on above: Order Comment: Speci men Type: BLOOD SPECIMENOrdering Facility: [facility] Address: [address] [place] [address] Performed By: #### 5 7021-8 ####[facility] LABCLIA [id number] [place] [address] [place] MCHC (RBC) [Mass/Vol] 33.1 g/dL Normal 30.5-36.0 [facility] Comment on above: Order Comment: Speci men Type: BLOOD SPECIMENOrdering Facility: [facility] Address: [address] [place] [address] Performed By: #### 5 7021-8 ####[facility] LABCLIA [id number] [place] [address] [place] MCV (RBC) [Entitic vol] 94.4 fL Normal 80.0-100.0 [facility] Comment on above: Order Comment: Speci men Type: BLOOD SPECIMENOrdering Facility: [facility] Address: [address] [place] [address] Performed By: #### 5 7021-8 ####[facility] LABCLIA [id number] [place] [address] [place] Monocytes (Bld) [#/Vol] 0.61 10*3/uL Normal <0.87 [facility] Comment on above: Order Comment: Speci men Type: BLOOD SPECIMENOrdering Facility: [facility] Address: [address] [place] [address] Performed By: #### 5 7021-8 ####[facility] LABCLIA [id number] [place] [address] [place] Monocytes/100 WBC (Bld) 8.0 % Normal [facility] Comment on above: Order Comment: Speci men Type: BLOOD SPECIMENOrdering Facility: [facility] Address: [address] [place] [address] Performed By: #### 5 7021-8 ####[facility] LABCLIA [id number] [place] [address] [place] Neutrophils (Bld) [#/Vol] 5.53 10*3/uL Normal 1.45-7.50 [facility] Comment on above: Order Comment: Speci men Type: BLOOD SPECIMENOrdering Facility: [facility] Address: [address] [place] [address] Performed By: #### 5 7021-8 ####[facility] LABCLIA [id number] [place] [address] [place] Neutrophils/100 WBC (Bld) 72.3 % Normal [facility] Comment on above: Order Comment: Speci men Type: BLOOD SPECIMENOrdering Facility: [facility] Address: [address] [place] [address] Performed By: #### 5 7021-8 ####[facility] LABCLIA [id number] [place] [address] [place] Nucleated RBC (Bld) [#/Vol] 10*3/uL Normal <0.01 [facility] Comment on above: Order Comment: Speci men Type: BLOOD SPECIMENOrdering Facility: [facility] Address: [address] [place] [address] Performed By: #### 5 7021-8 ####[facility] LABCLIA [id number] [place] [address] [place] Nucleated RBC/100 WBC (Bld) [Ratio] 0.0 /100 WBC Normal [facility] Comment on above: Order Comment: Speci men Type: BLOOD SPECIMENOrdering Facility: [facility] Address: [address] [place] [address] Performed By: #### 5 7021-8 ####[facility] LABCLIA [id number] [place] [address] [place] Platelet mean volume (Bld) [Entitic vol] 11.3 fL Normal 9.0-12.7 [facility] Comment on above: Order Comment: Speci men Type: BLOOD SPECIMENOrdering Facility: [facility] Address: [address] [place] [address] Performed By: #### 5 7021-8 ####[facility] LABCLIA [id number] [place] [address] [place] Platelets (Bld) [#/Vol] 264 10*3/uL Normal 150-400 [facility] Comment on above: Order Comment: Speci men Type: BLOOD SPECIMENOrdering Facility: [facility] Address: [address] [place] [address] Performed By: #### 5 7021-8 ####[facility] LABCLIA [id number] [place] [address] [place] RBC (Bld) [#/Vol] 5.03 10*6/uL Normal 4.20-6.00 [facility] Comment on above: Order Comment: Speci men Type: BLOOD SPECIMENOrdering Facility: [facility] Address: [address] [place] [address] Performed By: #### 5 7021-8 ####[facility] LABIA [id number] [place] [address] [place] WBC (Bld) [#/Vol] 7.65 10*3/uL Normal 3.70-11.00 [facility] Comment on above: Order Comment: Speci men Type: BLOOD SPECIMENOrdering Facility: [facility] Address: [address] [place] [address] Performed By: #### 5 7021-8 ####[facility] LABIA [id number] [address] [place] CNOVon 02-29-2024 CNOV Office Visit ([facility] ) -- RAMONITA EL ([id number]) 1940 M NFR Date Time Provider Department 02/29/24 2:00 PM KARLA BARON During your visit today, we recorded the following information about you: Pulse Respiration Blood pressure Weight 72/minute 16/minute 138/74 73 kg Karla Baron APRN.FRETTED INSTRUMENT REPAIRER 02/29/2024 3:54 PM Signed This is a 84 year old male who presents today with: Patient presents with: Recheck: 1 month BP check HISTORY OF PRESENT ILLNESS: Ramonita El is a 84 year old male. Patient presents with: Recheck: 1 month BP check Pt presents today for BP check. At last visit, his blood pressure as elevated. Refers that he is tolerating the medication well. Initially thought that he was getting a sore throat from the medication, but that is resolved. No chest pain/sob. No swelling in the feet/ankles. He was in urgent care with some right shoulder pain. This has improved. He continues to have problem sleeping. He goes to sleep anywhere from 4:00pm to 7:00 pm. Then he cannot sleep overnight. Admits that he has days/nights messed up. BPH Did see Dr. Johnson. Started on proscar. Urine stream improved. 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 cruciate tear, poss. 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 PMH - PAST MEDICAL HISTORY OF 1981 laceration wrist, suicidal gesture Radius fracture 06/21/2013 See scanned documents [facility] Tobacco abuse 05/22/2013 Urinary calculus, unspecified 01/05 Renal stone right side; 3 episodes with stones altogether with extraction in 196 PAST SURGICAL HISTORY Procedure Laterality Date ATHERECTOMY, FEMORAL-POPLITEAL 09/28/2009 right COLONOSCOPY 12/26/2023 COLONOSCOPY FLX DX W/COLLJ SPEC WHEN PFRMD 06/21/2015 Colonoscopy CORONARY ENDARTERCOMY OPEN ANY METHOD 08/10/2006 Angioplasty with stent ECHOCARDIOGRAM 11/24/2020 11/25/[address] Puentes: LV size and LVSF WNL, EF 55%, structurally normal valves EGD 12/26/2023 ESOPHAGOGASTRODUODENOSCOPY TRANSORAL DIAGNOSTIC 06/21/2015 EGD PAST SURGICAL HISTORY OF 04/05/1999 Cautery and outfracture of inferior turbinates. Removal fx fragment PAST SURGICAL HISTORY OF 1960 renal stone extraction: PAST SURGICAL HISTORY OF dental extraction PICC LINE INSERT/CONSULT 04/11/2016 SLCTV CATHJ 3RD+ ORD SLCTV ABDL PEL/LXTR BRNCH 09/28/2009 VASECTOMY UNI/BI SPX W/POSTOP SEMEN EXAMS 10/1984 ALLERGIES Dust Mites, Lipitor [Atorvastatin], Lisinopril, Penicillins, Pletal [Cilostazol], and Pravastatin MEDICATIONS Current Outpatient Medications Medication Sig losartan (COZAAR) 25 mg tablet Take 1 tablet by mouth once daily. brimonidine 0.2 % drop, timolol maleate 0.5 % drop hydrOXYzine HCl (ATARAX) 25 mg tablet Take 1 tablet by mouth every 8 hours as needed for anxiety. metoprolol tartrate, short acting, (LOPRESSOR) 100 mg tablet Take 1 tablet by mouth two times a day. tiZANidine (ZANAFLEX) 4 mg tablet Take 0.5-1 tablets by mouth at bedtime as needed (muscle spasms/insomnia). amLODIPine (NORVASC) 10 mg tablet Take 1 tablet by mouth once daily. clopidogrel (PLAVIX) 75 mg tablet Take 1 tablet by mouth once daily. tamsulosin (FLOMAX) 0.4 mg Take 1 capsule by mouth once daily. pantoprazole DR (PROTONIX) 20 mg tablet TAKE 1 TABLET BY MOUTH 1/2 HOUR BEFORE BREAKFAST ON AN EMPTY STOMACH ONCE DAILY timolol maleate (TIMOPTIC) 0.5 % ophthalmic solution latanoprost (XALATAN) 0.005 % ophthalmic solution No current facility-administered medications for this visit. FAMILY HISTORY Problem Relation Age of Onset Cancer Mother age 42 leukemia None Father father ubknown to pt. Coronary Artery Disease Brother bypass Social History Tobacco Use Smoking status: Every Day Current packs/day: 0.00 Average packs/day: 1 pack/day for 63.2 years (63.2 ttl pk-yrs) Types: Cigarettes Start date: 02/05/1959 Last attempt to quit: 04/19/2022 Years since quittin.8 Smokeless tobacco: Never Vaping Use Vaping status: Never Used Substance Use Topics Alcohol use: Yes Comment: Socially Drug use: No EXAM: BP 138/74 Pulse 72 Resp 16 Wt 73 kg (161 lb) SpO2 95% BMI 25.22 kg/m? PHYSICAL EXAM: General Appearance: Well appearing, alert, in no acute distress, well-hydrated, well nourished.. Skin: (more content not included)... Normal [facility] Comprehensive metabolic 2000 panelon 02-29-2024 Albumin [Mass/Vol] 4.1 g/dL Normal 3.9-4.9 [facility] Comment on above: Order Comment: Speci men Type: BLOOD SPECIMENOrdering Facility: [facility] Address: [address] [place] [address] Performed By: #### 2 4323-8, 26844-8, ####[facility] LABIA [id number] [place] [address] [place] ALP [Catalytic activity/Vol] 96 U/L Normal 38-113 [facility] Comment on above: Order Comment: Speci men Type: BLOOD SPECIMENOrdering Facility: [facility] Address: [address] [place] [address] Performed By: #### 2 4323-8, 89467-7, ####[facility] LABIA [id number] [place] [address] [place] ALT [Catalytic activity/Vol] 12 U/L Normal 10-54 [facility] Comment on above: Order Comment: Speci men Type: BLOOD SPECIMENOrdering Facility: [facility] Address: [address] [place] [address] Performed By: #### 2 4323-8, 83731-3, ####[facility] LABIA [id number] [address] [address] [place] Anion gap [Moles/Vol] 12 mmol/L Normal 8-15 [facility] Comment on above: Order Comment: Speci men Type: BLOOD SPECIMENOrdering Facility: [facility] Address: [address] [place] [address] Performed By: #### 2 4323-8, , ####[facility] LABCLIA [id number] [address] [address] [place] AST [Catalytic activity/Vol] 17 U/L Normal 14-40 [facility] Comment on above: Order Comment: Speci men Type: BLOOD SPECIMENOrdering Facility: [facility] Address: [address] [place], [place] [address] Performed By: #### 2 4323-8, 24678-0, ####[facility] LABCLIA [id number] [address] [address] [place] Bilirubin [Mass/Vol] 0.4 mg/dL Normal 0.2-1.3 [facility] Comment on above: Order Comment: Speci men Type: BLOOD SPECIMENOrdering Facility: [facility] Address: [address] [place] [address] Performed By: #### 2 4323-8, , ####[facility] LABCLIA [id number] [address] [address] [place] Calcium [Mass/Vol] 9.6 mg/dL Normal 8.5-10.2 [facility] Comment on above: Order Comment: Speci men Type: BLOOD SPECIMENOrdering Facility: [facility] Address: [address] [place] [address] Performed By: #### 2 4323-8, , ####[facility] LABCLIA [id number] [address] [address] [place] Chloride [Moles/Vol] 102 mmol/L Normal 98-107 [facility] Comment on above: Order Comment: Speci men Type: BLOOD SPECIMENOrdering Facility: [facility] Address: [address] [place] [address] Performed By: #### 2 4323-8, 00300-3, ####[facility] LABCLIA [id number] [place] [address] [place] CO2 [Moles/Vol] 25 mmol/L Normal 22-30 [facility] Comment on above: Order Comment: Speci men Type: BLOOD SPECIMENOrdering Facility: [facility] Address: [address] [place] [address] Performed By: #### 2 4323-8, 30457-2, ####[facility] [id number] [place] [id number] [place] Creatinine [Mass/Vol] 0.68 mg/dL Low 0.73-1.22 [facility] Comment on above: Order Comment: Speci men Type: BLOOD SPECIMENOrdering Facility: [facility] Address: [address] [place] [address] Performed By: #### 2 4323-8, 35107-7, ####[facility] [id number] [place] [address] [place] Creatinine and Glomerular filtration rate.predicted panel (S/P/Bld) 92 mL/min/1.73m??? Normal >=60 [facility] Comment on above: Order Comment: Speci men Type: BLOOD SPECIMENOrdering Facility: [facility] Address: [address] [place] [address] Result Comment: Tameka mated Glomerular Filtration Rate (eGFR) is calculated using the 2020 CKD-EPI creatinine equation. This equation utilizes serum creatinine, sex, and age as parameters. The creatinine assay has traceable calibration to isotope dilution-mass spectrometry. Refer to KDIGO guidelines for clinical interpretation. In patients with unstable renal function, e.g. those with acute kidney injury, the eGFR may not accurately reflect actual GFR. Performed By: #### 2 4323-8, 76070-7, ####[facility] LABIA [id number] [address] [address] [place] Glucose [Mass/Vol] 97 mg/dL Normal 74-99 [facility] Comment on above: Order Comment: Speci men Type: BLOOD SPECIMENOrdering Facility: [facility] Address: [address] [place] [address] Result Comment: The [place] Diabetes Association (ADA) provides guidance for cutoff values for fasting glucose and random glucose. The ADA defines fasting as no caloric intake for at least 8 hours. Fasting plasma glucose results between 100 to 125 mg/dL indicate increased risk for diabetes (prediabetes). Fasting plasma glucose results greater than or equal to 126 mg/dL meet the criteria for diagnosis of diabetes. In the absence of unequivocal hyperglycemia, results should be confirmed by repeat testing. In a patient with classic symptoms of hyperglycemia or hyperglycemic crisis, random plasma glucose results greater than or equal to 200 mg/dL meet the criteria for diagnosis of diabetes. Reference: Standards of Medical Care in Diabetes 2016, [place] [employer] Association. Diabetes Care. 2016.39(Suppl 1). Performed By: #### 2 4323-8, 90351-0, ####[facility] LABCLIA [id number] [place] [address] [place] Potassium [Moles/Vol] 4.2 mmol/L Normal 3.7-5.1 [facility] Comment on above: Order Comment: Kendricki men Type: BLOOD SPECIMENOrdering Facility: [facility] Address: [address] [place], [place] [address] Performed By: #### 2 4323-8, 53897-2, ####[facility] LABCLIA [id number] [place] [id number] [place] Protein [Mass/Vol] 7.2 g/dL Normal 6.3-8.0 [facility] Comment on above: Order Comment: Kendricki men Type: BLOOD SPECIMENOrdering Facility: [facility] Address: [address] [place] [address] Performed By: #### 2 4323-8, 76604-9, ####[facility] LABCLIA [id number] [address] [address] [id number] [address] [place] Sodium [Moles/Vol] 139 mmol/L Normal 136-144 [facility] Comment on above: Order Comment: Speci men Type: BLOOD SPECIMENOrdering Facility: [facility] Address: [address] [place] [address] Performed By: #### 2 4323-8, 42380-5, ####[facility] LABCLIA [id number] [place] [address] [place] Urea nitrogen [Mass/Vol] 12 mg/dL Normal 9-24 [facility] Comment on above: Order Comment: Speci men Type: BLOOD SPECIMENOrdering Facility: [facility] Address: [address] [place] [address] Performed By: #### 2 4323-8, 10738-0, ####[facility] LABCLIA [id number] [place] [address] [place] Lipid 1996 panelon 5 Cholesterol [Mass/Vol] 217 mg/dL High <200 [facility] Comment on above: Order Comment: Speci men Type: BLOOD SPECIMENOrdering Facility: [facility] Address: [address] [place] [address] Result Comment: <200 mg/dL, Desirable 200-239 mg/dL, Borderline high >239 mg/dL, High Performed By: #### 2 4323-8, 73768-1, ####[facility] LABCLIA [id number] [place] [address] [place] Cholesterol in HDL [Mass/Vol] 39 mg/dL Low >39 [facility] Comment on above: Order Comment: Speci men Type: BLOOD SPECIMENOrdering Facility: [facility] Address: [address] [place] [address] Result Comment: 40-5 9 mg/dL, Acceptable >59 mg/dL, High: Negative risk factor for coronary heart disease <40 mg/dL, Low: Positive risk factor for coronary heart disease Performed By: #### 2 4323-8, 02642-0, ####[facility] LABCLIA [id number] [address] [address] [place] Cholesterol in LDL [Mass/Vol] 150 mg/dL High <100 [facility] Comment on above: Order Comment: Speci men Type: BLOOD SPECIMENOrdering Facility: [facility] Address: [address] [place] [address] Result Comment: <100 mg/dL, Optimal 100-129 mg/dL, Near optimal/above optimal 130-159 mg/dL, Borderline high 160-189 mg/dL, High >189 mg/dL, Very high Secondary prevention optimal LDL Cholesterol levels are recommended to be < 70 mg/dL Performed By: #### 2 4323-8, 85460-3, ####[facility] LABCLIA [id number] [place] [address] [place] Cholesterol in LDL/Cholesterol in HDL [Mass ratio] 3.85 {ratio} High <2.54 [facility] Comment on above: Order Comment: Speci men Type: BLOOD SPECIMENOrdering Facility: [facility] Address: [address] [place] [address] Result Comment: Refmary haney: 1. National Cholesterol Education Program ATP III Guideline At-A-Glance Quick Desk Reference: National Heart, Lung, and Blood [place]. National Institutes of Health. 2001: NIH Publication No. 01-3305. 2. An International Atherosclerosis Society position paper: global recommendations for the management of dyslipidemia: executive summary, Atherosclerosis. 2014: 232(2):410-413. Performed By: #### 2 4323-8, 57744-9, ####[facility] LABCLIA [id number] [place] [id number] [place] Cholesterol in VLDL [Mass/Vol] 28 mg/dL Normal <30 [facility] Comment on above: Order Comment: Speci men Type: BLOOD SPECIMENOrdering Facility: [facility] Address: [address] [place] [address] Performed By: #### 2 4323-8, 65892-5, ####[facility] LABCLIA [id number] [address] [address] [place] Cholesterol non HDL [Mass/Vol] 178 mg/dL High <130 [facility] Comment on above: Order Comment: Speci men Type: BLOOD SPECIMENOrdering Facility: [facility] Address: [address] [place] [address] Result Comment: <130 mg/dL, Optimal 130-159 mg/dL, Near optimal/above optimal 160-189 mg/dL, Borderline high 190-219 mg/dL, High >219 mg/dL, Very high Secondary prevention optimal non HDL Cholesterol levels are recommended to be <100 mg/dL Performed By: #### 2 4323-8, 11802-1, ####[facility] LABCLIA [id number] [address] [address] [place] Cholesterol.total/Chol esterol in HDL [Mass ratio] 5.56 {ratio} High <5.10 [facility] Comment on above: Order Comment: Speci men Type: BLOOD SPECIMENOrdering Facility: [facility] Address: [address] [place] [address] Performed By: #### 2 4323-8, , ####[facility] LABCLIA [id number] [address] [address] [place] FASTING TIME 12 hrs Normal [facility] Comment on above: Order Comment: Speci men Type: BLOOD SPECIMENOrdering Facility: [facility] Address: [address] [place] [address] Performed By: #### 2 4323-8, , ####[facility] LABCLIA [id number] [address] [address] [place] Triglyceride [Mass/Vol] 142 mg/dL Normal <150 [facility] Comment on above: Order Comment: Speci men Type: BLOOD SPECIMENOrdering Facility: [facility] Address: [address] [place], [place] [address] Result Comment: <150 mg/dL, Normal 150-199 mg/dL, Borderline high 200-499 mg/dL, High >499 mg/dL, Very high Performed By: #### 2 4323-8, 22771-1, ####[facility] LABCLIA [id number] [place] [id number] [place] Magnesium SerPl-mCncon 02-28 Magnesium [Mass/Vol] 1.9 mg/dL Normal 1.7-2.3 [facility] Comment on above: Order Comment: Speci men Type: BLOOD SPECIMENOrdering Facility: [facility] Address: [address] [place] [address] Performed By: #### 2 4323-8, 36576-8, ####[facility] LABCLIA [id number] [place] [id number] [place] PSA/PROSTATE SPECIFIC ANTIGE N SCREENINGon 02-29-2024 Prostate specific Ag [Mass/Vol] 5.99 ng/mL High <2.60 [facility] Comment on above: Order Comment: Speci men Type: BLOOD SPECIMENOrdering Facility: [facility] Address: [address] [place] [address] Result Comment: Tota l PSA test methodology used is the Electrochemiluminescence Immunoassay by [employer]. Total PSA values by differing methodologies cannot be interchanged. For an individual patient, the significance of a PSA level should be interpreted in a broad clinical context, including age, race, family history, digital rectal exam, prostate size, results of prior testing (prostate biopsy, free PSA, PCA3), and use of 5-alpha reductase inhibitors. Considering the high incidence of asymptomatic cancer in the general population that may not pose an ultimate risk to a patient, the decision to recommend urological evaluation or prostate biopsy should be individualized after consideration of all these factors. REFERENCE: Allen Roque M.D., M.P.H., Sae Yan M.D., Ph.D., Aamir Granados M.D., Wendy Ervin M.P.H., Camilla Figueroa Sc.D. Effect of Verification Bias on Screening for Prostate Cancer by Measurement of Prostatic Specific Antigen. N Engl J Med 2003,349:335-42. Performed By: #### P SAS1 ####[facility] LABCLIA [id number] [place] [id number] [facility] CNPNon 02-27-2024 CNPN Telephone (FAMWS) -- RAMONITA EL ([id number]) 1940 M NFR Date Time Provider Department 02/27/24 [facility] your visit today, we recorded the following information about you: Ashley Grant RN 02/27/2024 3:30 PM Signed Patient calling in to check on status of his losartan medication refill. This nurse informed patient that script was sent to [facility] on 02/21/24. Patient states the medication has not been delivered yet and he has been out of this medication for about 10 days. Patient states he has not been checking his blood pressure but does have a home BP monitor. This nurse encouraged patient to take his BP and this nurse will call him back for result within the hour. This nurse also informed patient that [facility] would be contacted and this nurse would call patient back on status of losartan medication, as well. Patient voiced understanding. ROBERT Cheatham Sherrie, RN 02/27/2024 3:30 PM Signed This nurse called [facility] and Losartan medication is en route to patient, and is to be delivered to patient by tomorrow, by 4:50pm. This nurse attempted to contact patient to inform him of this, as well as obtain his BP reading from him. No answer. Message left for pt to call provider's office and ask for a nurse for this message. Ashley Grant RN [facility] 02/27/2024 3:49 PM Addendum Please call patient , patient did return the call, we were on hold several minutes , advised patient I will send message for nurse to call back Please call patient [phone] Sandy Cardoza RN 02/27/2024 4:37 PM Signed Pt returned the call and notified of prescription refill arriving tomorrow. Pt took a couple BP and readings were 156/71 and 142/72. 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 - brimonidine 0.2 % drop, timolol maleate 0.5 % drop - hydrOXYzine HCl (ATARAX) 25 mg tablet Take 1 tablet by mouth every 8 hours as needed for anxiety. - metoprolol tartrate, short acting, (LOPRESSOR) 100 mg tablet Take 1 tablet by mouth two times a day. - tiZANidine (ZANAFLEX) 4 mg tablet Take 0.5-1 tablets by mouth at bedtime as needed (muscle spasms/insomnia). - amLODIPine (NORVASC) 10 mg tablet Take 1 tablet by mouth once daily. - clopidogrel (PLAVIX) 75 mg tablet Take 1 tablet by mouth once daily. - tamsulosin (FLOMAX) 0.4 mg Take 1 capsule by mouth once daily. - pantoprazole DR (PROTONIX) 20 mg tablet TAKE 1 TABLET BY MOUTH 1/2 HOUR BEFORE BREAKFAST ON AN EMPTY STOMACH ONCE DAILY - timolol maleate (TIMOPTIC) 0.5 % ophthalmic solution - latanoprost (XALATAN) 0.005 % ophthalmic solution Problem List As Of Date 02/27/2024 Noted Resolved Essential hypertension, benign [I10] 12/10/2006 Coronary atherosclerosis [I25.10] 12/10/2006 BPH with obstruction/lower urinary tract sympto*08/15/2007 Carotid artery bruit [R09.89] 11/20/2008 10/18/2011 Allergic Rhinitis [J30.9] 05/26/2009 S/P coronary artery stent placement [Z95.5] 08/10/2006 Hyperlipidemia LDL Goal <70 [E78.5] 08/17/2009 Sinus congestion [R09.81] 12/12/2011 2016 Dupuytren's contracture of left hand [M72.0] 01/25/2012 09/06/2017 Tobacco abuse [Z72.0] 05/22/2013 Alcohol abuse [F10.10] 05/22/2013 UTI (lower urinary tract infection) [N39.0] 09/23/2013 2014 BPH (benign prostatic hyperplasia) [N40.0] 09/23/2013 2016 Guaiac positive stools [R19.5] 05/07/2015 03/17/2016 Occult blood in stools [R19.5] 05/10/2015 03/17/2016 Gastroesophageal reflux disease [K21.9] 05/10/2015 Poor sleep [Z72.820] 05/10/2015 Depression [F32.A] 05/10/2015 03/30/2017 Peripheral arterial disease (HCC) [I73.9] 03/01/2016 Acute blood loss anemia [D62] 03/02/2016 09/06/2017 Hypoxemia [R09.02] 03/05/2016 03/17/2016 Pneumonia [J18.9] 03/05/2016 03/17/2016 Disorder of lymphatic vessel [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 Normal [facility] Basic Metabolic Profile (BMP )on 02-18-2024 BUN/CRE 17.3 RATIO Normal 10-20 [facility] Comment on above: Performed By: #### L 500.2500, L501.9910 #### [facility] [address] [place], [address] CA,Total 8.9 mg/dL Normal 8.5-10.1 [facility] Comment on above: Performed By: #### L 500.2500, L501.9910 #### [facility] [address] [place], [address] Chloride [Moles/Vol] 108 mmol/L High 98-107 [facility] Comment on above: Performed By: #### L 500.2500, L501.9910 #### [facility] [address] [place], [address] CO2 [Moles/Vol] 27.0 mmol/L Normal 21.0-32.0 [facility] Comment on above: Performed By: #### L 500.2500, L501.9910 #### [facility] [address] [place], [address] Creatinine [Mass/Vol] 0.92 mg/dL Normal 0.70-1.30 [facility] Comment on above: Result Comment: The validity of the calculated GFR GFRAA in patients over 70 years has not been determined. Clinical correlation is essential. Performed By: #### L 500.2500, L501.9910 #### [facility] [address] [place], [address] EST GFR - AA 101 mL/min Normal >60 [facility] Comment on above: Result Comment: Afri can Bahraini GFR Calc Performed By: #### L 500.2500, L501.9910 #### [facility] [address] [place], [address] GAP 4 Low 5-15 [facility] Comment on above: Performed By: #### L 500.2500, L501.9910 #### [facility] [address] [place], [address] GFR/1.73 sq M.predicted among non-blacks MDRD (S/P/Bld) [Vol rate/Area] 83 mL/min/{1.73_m2} Normal >60 [facility] Comment on above: Result Comment: Non- GFR Calc Performed By: #### L 500.2500, L501.9910 #### [facility] [address] [place], [address] Glucose [Mass/Vol] 131 mg/dL High 74-106 [facility] Comment on above: Result Comment: Fast ing Glucose result greater than or equal to 126 mg/dL suggests DIABETES MELLITUS per A.D.A. criteria. Performed By: #### L 500.2500, L501.9910 #### [facility] [address] [place], [address] Potassium [Moles/Vol] 4.1 mmol/L Normal 3.5-5.1 [facility] Comment on above: Performed By: #### L 500.2500, L501.9910 #### [facility] [address] [place], [address] Sodium [Moles/Vol] 140 mmol/L Normal 136-145 [facility] Comment on above: Performed By: #### L 500.2500, L501.9910 #### [facility] [address] [place], [address] Urea nitrogen [Mass/Vol] 16 mg/dL Normal 7-18 [facility] Comment on above: Performed By: #### L 500.2500, L501.9910 #### [facility] [address] [place], [place], [address] Blood urea nitrogen (BUN)/cr eatinine ratioOrdered By: Justice Johnson on 02-18-2024 Urea nitrogen/Creatinine [Mass ratio] 17.3 mg/mg 10-20 [facility] Carbon dioxide measurementOr dered By: Justice Johnson on 02-18-2024 CO2 [Moles/Vol] 27.0 mmol/L 21.0-32.0 [facility] Chloride measurementOrdered By: Justice Johnson on 02-18-2024 Chloride [Moles/Vol] 108 mmol/L High 98-107 [facility] Estimated glomerular filtrat ion rate (GFR) AmericanOrdered By: Justice Johnson on 02-18-2024 Estimated GFR (MDRD) Amer 101 mL/min >60 [facility] Comment on above: GFR Calc Glomerular filtration rate ( GFR) estimationOrdered By: Justice Johnson on 02-18-2024 Estimated GFR (MDRD) Non-Af Amer 83 mL/min >60 [facility] Comment on above: Non- GFR Calc GFR/1.73 sq M.predicted among non-blacks MDRD (S/P/Bld) [Vol rate/Area] 83 mL/min/{1.73_m2} >60 [facility] Comment on above: Non- GFR Calc Glucose measurementOrdered B y: Justice Johnson on 02-18-2024 Glucose [Mass/Vol] 131 mg/dL High 74-106 [facility] Comment on above: Fasting Glucose resu lt greater than or equal to 126 mg/dL suggests DIABETES MELLITUS per A.D.A. criteria. PSA,Total - Annual Screenon 02-18-2024 PSA,TOT SCREEN 3.70 ng/mL Normal 0.00-4.00 [facility] Comment on above: Result Comment: This test was performed using the TPSA assay method for the [employer] chemistry system. Values obtained with different assay methods cannot be used interchangably. When changing PSA assays in the course of monitoring a patient, additional sequential testing should be carried out to confirm baseline values. Performed By: #### L 500.2500, L501.9910 #### [facility] [address] [place], [address] Potassium measurementOrdered By: Justice Johnson on 02-18-2024 Potassium [Moles/Vol] 4.1 mmol/L 3.5-5.1 [facility] Screening prostate specific antigen (PSA) measurementOrdered By: Justice Johnson on 02-18-2024 Prostate Specific Antigen Screen 3.70 ng/mL 0.00-4.00 [facility] Comment on above: This test was perfor med using the TPSA assay method for [employer] chemistry system. Values obtained with differentassay methods cannot be used interchangably.When changing PSA assays in the course of monitoring apatient, additional sequential testing should be carriedout to confirm baseline values. Serum anion gap measurementO rdered By: Justice Johnson on 02-18-2024 Anion gap [Moles/Vol] 4 mmol/L Low 5-15 [facility] Serum or plasma calcium heather urement (mass/volume)Ordered By: Justice Johnson on 02-18-2024 Calcium [Mass/Vol] 8.9 mg/dL 8.5-10.1 [facility] Serum or plasma creatinine m easurement (mass/volume)Ordered By: Justice Johnson on 02-18-2024 Creatinine [Mass/Vol] 0.92 mg/dL 0.70-1.30 [facility] Comment on above: The validity of the calculated GFR & GFRAA in patients over 70 years has not been determined. Clinical correlation is essential. Serum or plasma urea nitroge n measurement (mass/volume)Ordered By: Justice Johnson on 02-18-2024 Urea nitrogen [Mass/Vol] 16 mg/dL 7-18 [facility] Sodium levelOrdered By: Justice Johnson on 02-18-2024 Sodium [Moles/Vol] 140 mmol/L 136-145 [facility] Urine Cultureon 02-13-2024 [facility] Staphylococcus epide rmidis [place] Count >100,000 Staphylococcus epidermidis: REACTION cefOXitin Susc Islt Doxycycline Islt GERALD 1 S Clindamycin.induced Susc Islt NEG Gentamicin Islt GERALD <=0.5 S Linezolid Islt GERALD 2 S Nitrofurantoin Islt GERALD <=16 S Oxacillin Susc Islt >=4 R Tetracycline Islt GERALD 2 S TMP SMX Islt GERALD 80 R Vancomycin Islt GERALD 1 S Normal [facility] Comment on above: Performed By: #### M 100.2200 ####[facility] [address] [place], [address] Absolute neutrophil countOrd ered By: Mello Briceño on 02-11-2024 Neutrophils (Bld) [#/Vol] 7.5 10*3/uL 2.0-7.7 [facility] Basic Metabolic Profile (BMP )on 02-11-2024 BUN/CRE 25.4 RATIO High 10-20 [facility] Comment on above: Performed By: #### L 500.2500, L100.0100 #### [facility] [address] [place], [address] CA,Total 9.4 mg/dL Normal 8.5-10.1 [facility] Comment on above: Performed By: #### L 500.2500, L100.0100 #### [facility] [address] [place], [address] Chloride [Moles/Vol] 109 mmol/L High 98-107 [facility] Comment on above: Performed By: #### L 500.2500, L100.0100 #### [facility] [address] [place], [address] CO2 [Moles/Vol] 25.0 mmol/L Normal 21.0-32.0 [facility] Comment on above: Performed By: #### L 500.2500, L100.0100 #### [facility] [address] [place], [address] Creatinine [Mass/Vol] 0.90 mg/dL Normal 0.70-1.30 [facility] Comment on above: Result Comment: The validity of the calculated GFR GFRAA in patients over 70 years has not been determined. Clinical correlation is essential. Performed By: #### L 500.2500, L100.0100 #### [facility] [address] [place], [address] ECRCL 61.22 ml/min Normal [facility] Comment on above: Performed By: #### L 500.2500, L100.0100 #### [facility] [address] [place], [address] EST GFR - AA 103 mL/min Normal >60 [facility] Comment on above: Result Comment: Afri can Bahraini GFR Calc Performed By: #### L 500.2500, L100.0100 #### [facility] [address] [place], [address] GAP 6 Normal 5-15 [facility] Comment on above: Performed By: #### L 500.2500, L100.0100 #### [facility] [address] [place], [address] GFR/1.73 sq M.predicted among non-blacks MDRD (S/P/Bld) [Vol rate/Area] 85 mL/min/{1.73_m2} Normal >60 [facility] Comment on above: Result Comment: Non- GFR Calc Performed By: #### L 500.2500, L100.0100 #### [facility] [address] [place], [address] Glucose [Mass/Vol] 133 mg/dL High 74-106 [facility] Comment on above: Result Comment: Fast ing Glucose result greater than or equal to 126 mg/dL suggests DIABETES MELLITUS per A.D.A. criteria. Performed By: #### L 500.2500, L100.0100 #### [facility] [address] [place], [address] Potassium [Moles/Vol] 3.6 mmol/L Normal 3.5-5.1 [facility] Comment on above: Performed By: #### L 500.2500, L100.0100 #### [facility] [address] [place], [address] Sodium [Moles/Vol] 140 mmol/L Normal 136-145 [facility] Comment on above: Performed By: #### L 500.2500, L100.0100 #### [facility] [address] [place], [address] Urea nitrogen [Mass/Vol] 23 mg/dL High 7-18 [facility] Comment on above: Performed By: #### L 500.2500, L100.0100 #### [facility] [address] [place], [address] Basophil percentageOrdered B y: Mello Briceño on 02-11-2024 Basophils/100 WBC (Bld) 0.8 % 0-1 [facility] Bilirubin Test strip Ql (U)O rdered By: Mello Briceño on 02-11-2024 Bilirubin Ql (U) 1 mg/dL High Negative [facility] Comment on above: COLOR OF URINE MAY A FFECT DIPSTICK RESULTS. Blood urea nitrogen (BUN)/cr eatinine ratioOrdered By: Mello Briceño on 02-11-2024 Urea nitrogen/Creatinine [Mass ratio] 25.4 mg/mg High 10-20 [facility] CBC W/Diff, Automatedon Absolute Lymph 1.47 X10 3/uL Normal 0.83-4.51 [facility] Comment on above: Performed By: #### L 500.2500, L100.0100 #### [facility] [address] [place], [address] Absolute Neut 7.5 X10 3/uL Normal 2.0-7.7 [facility] Comment on above: Performed By: #### L 500.2500, L100.0100 #### [facility] [address] [place], [address] Basophils/100 WBC (Bld) 0.8 % Normal 0-1 [facility] Comment on above: Performed By: #### L 500.2500, L100.0100 #### [facility] [address] [place], [address] Eosinophils/100 WBC (Bld) 1.2 % Normal 0-5 [facility] Comment on above: Performed By: #### L 500.2500, L100.0100 #### [facility] [address] [place], [address] Erythrocyte distribution width (RBC) [Ratio] 14.8 % High 11.6-14.6 [facility] Comment on above: Performed By: #### L 500.2500, L100.0100 #### [facility] [address] [place], [address] Hematocrit (Bld) [Volume fraction] 45.0 % Normal 40-54 [facility] Comment on above: Performed By: #### L 500.2500, L100.0100 #### [facility] [address] [place], [address] Hemoglobin (Bld) [Mass/Vol] 16.1 g/dL Normal 13.0-16.5 [facility] Comment on above: Performed By: #### L 500.2500, L100.0100 #### [facility] [address] [place], [address] IG% 0.500 Normal 0.0-0.9 [facility] Comment on above: Result Comment: IG% - Immature Granulocytes (promyelocytes, myelocytes and metamyelocytes) > 1% indicates that a LEFT SHIFT is Present. Performed By: #### L 500.2500, L100.0100 #### [facility] [address] [place], [address] Lymphocytes/100 WBC (Bld) 14.8 % Low 19-41 [facility] Comment on above: Performed By: #### L 500.2500, L100.0100 #### [facility] [address] [place], [address] MCH (RBC) [Entitic mass] 34.3 pg High 27.0-32.0 [facility] Comment on above: Performed By: #### L 500.2500, L100.0100 #### [facility] [address] [place], [address] MCHC (RBC) [Mass/Vol] 35.8 g/dL Normal 32-36 [facility] Comment on above: Performed By: #### L 500.2500, L100.0100 #### [facility] [address] [place], [address] MCV (RBC) [Entitic vol] 95.7 fL High 80-94 [facility] Comment on above: Performed By: #### L 500.2500, L100.0100 #### [facility] [address] [place], [address] Monocytes/100 WBC (Bld) 7.3 % Normal 0-10 [facility] Comment on above: Performed By: #### L 500.2500, L100.0100 #### [facility] [address] [place], [address] Neutrophils/100 WBC (Bld) 75.4 % High 47-70 [facility] Comment on above: Performed By: #### L 500.2500, L100.0100 #### [facility] [address] [place], [address] Nucleated RBC (Bld) [#/Vol] 0 10*3/uL Normal 0-5 [facility] Comment on above: Performed By: #### L 500.2500, L100.0100 #### [facility] [address] [place], [address] Platelet mean volume (Bld) [Entitic vol] 10.7 fL Normal 6.2-12.0 [facility] Comment on above: Performed By: #### L 500.2500, L100.0100 #### [facility] [address] [place], [address] Platelets (Bld) [#/Vol] 350 10*3/uL Normal 150-450 [facility] Comment on above: Performed By: #### L 500.2500, L100.0100 #### [facility] [address] [place], [address] RBC (Bld) [#/Vol] 4.70 10*6/uL Normal 4.6-6.2 [facility] Comment on above: Performed By: #### L 500.2500, L100.0100 #### [facility] [address] [place], [address] RDW SD 44.0 fl High 35.1-43.9 [facility] Comment on above: Performed By: #### L 500.2500, L100.0100 #### [facility] [address] [place], [address] WBC (Bld) [#/Vol] 10.0 10*3/uL Normal 4.4-11.0 [facility] Comment on above: Performed By: #### L 500.2500, L100.0100 #### [facility] [address] [place], [address] Calcium oxalate crystals LM Ql (Urine sed)Ordered By: Mello Briceño on 02-11-2024 Urine Calcium Oxalate Crystals RARE /hpf [facility] Carbon dioxide measurementOr dered By: Mello Briceño on 02-11-2024 CO2 [Moles/Vol] 25.0 mmol/L 21.0-32.0 [facility] Chloride measurementOrdered By: Mello Briceño on 02-11-2024 Chloride [Moles/Vol] 109 mmol/L High 98-107 [facility] Emergency Department Summary on 02-11-2024 Emergency Department Summary [facility] Medical Records Department [address] [place] [address] Emergency Department Summary 02/11/24 MR#: [id number] Acct: [id number] Name: RAMONITA EL Rep #: [id number] : 1940 83 From: Mello Briceño DO PCP: RAYO Pillai Status:DEP ER Location: ED HPI History of Present Illness Chief Complaint: Complaint Informant: patient Onset/Context/Timing Onset: Days (3) Context: Gradual Onset Timing: Continuous Quality: Burning Location: Suprapubic area Worsened by: Urination Relieved by: Nothing Narrative Narrative: Patient presents with dysuria that has been getting worse over the past 3 days. Patient was seen here on 01/30/2024 and had a Cuello catheter placed for urinary retention. Patient states he has been having difficulty following up with urology. Patient states that over the past 3 days he has been having some dysuria and some leaking around the catheter. Patient denies any fevers or chills. Patient denies any nausea or vomiting. Patient describes his pain as burning. 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) Encounter for pre-operative cardiovascular clearance Hypertrophy of prostate with urinary obstruction 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 Chronic pancreatitis Atherosclerosis of coronary artery without angina pectoris Essential hypertension Alcoholism Home Medications ???Medication ???Instructions ???Recorded ???Last Taken ???Type amlodipine 10 mg tablet 10 mg PO DAILY 05/02/16 12/08/20 04:00 History clopidogrel 75 mg tablet 75 mg PO DAILY 05/02/16 11/30/20 History tamsulosin 0.4 mg capsule (Flomax) 0.4 mg PO DAILY 05/02/16 12/07/20 History hydroxyzine HCl 25 mg tablet 25 mg PO DAILY PRN rash 11/09/20 Unknown History metoprolol tartrate 100 mg tablet 100 mg PO BID 11/09/20 12/08/20 04:00 History pantoprazole 20 mg tablet,delayed 20 mg PO DAILY 11/09/20 12/07/20 History release (Protonix) ibuprofen 600 mg tablet 600 mg PO Q6H PRN pain #20 tabs 12/08/20 Unknown Rx ciprofloxacin HCl 500 mg tablet 500 mg PO BID #6 TABLETS 02/11/24 Unknown Rx Allergy/AdvReac Type Severity Reaction Status Date / Time Penicillins Allergy Hives Verified 01/16/24 04:02 Surgical History History of angioplasty of peripheral vessel (09/28/09) History of coronary artery stent placement (08/10/06) Social History Smoking Status: Heavy Smoker (>10/day) ROS ROS ED Constitutional Constitutional ED: Denies chills or fever(s) Eyes Eyes: Denies blurry vision or change in vision ENT ENT ED: Denies rhinorrhea or sore throat Cardiovascular Cardiovascular: Denies chest pain or palpitations Respiratory/Chest Respiratory/Chest: Denies cough or dyspnea Gastrointestinal Gastrointestinal: Denies nausea or vomiting Genitourinary Genitourinary ED: Reports dysuria; Denies hematuria Musculoskeletal Musculoskeletal: Denies back pain or neck pain Integumentary Denies abscess or rash Neurologic Neurologic: Denies headache(s) or weakness Allergic/Immunologic Allergic/Immunologic ED: Denies mouth swelling or urticaria EXAM Physical Exam Const Vital Signs: 02/11/24 08:48 Temperature 98.2 F Temperature Source Oral Pulse Rate 69 Respiratory Rate 18 Blood Pressure 173/68 H Blood Pressure Mean 103 Pulse Ox 98 Oxygen Delivery Method Room Air Positive well nourished and well developed General Appearance ED: well developed and NAD HEENT Reports moist mucous membranes Neck supple and no JVD Resp normal respiratory effort and clear to auscultation bilaterally Cardio regular rate and regular rhythm GI non-distended Palpation: soft and tender suprapubic; Negative for guarding or rebound tenderness present Neuro oriented x3, CN's II-XII intact bilaterally and no sensory deficits noted Sensorium / Orientation: alert Motor Exam: strength 5/5 throughout Psych mental status grossly normal MDM MDM MDM Narrative Medical decision making narrative: Differential diagnosis includes urinary tract infection, urinary retention, and BPH. Urinalysis will be obtained to assess for urinary tract infection. Urine culture will be obtained to assess for urinary tract infection. CBC will be obtained to assess for leukocytosis and anemia. Basic metabolic profile will be obtained to assess for renal function and electrolyte abnormality. Lab Data Attestation: I reviewed the patient's (more content not included)... Normal [facility] Eosinophil percentageOrdered By: Mello Briceño on 02-11-2024 Eosinophils/100 WBC (Bld) 1.2 % 0-5 [facility] Epithelial cells.squamous LM Ql (Urine sed)Ordered By: Mello Briceño on 02-11-2024 Epithelial cells.squamous LM.HPF (Urine sed) [#/Area] 0 /[HPF] 0-5 [facility] Erythrocyte distribution wid th (RBC) [Ratio]Ordered By: Mello Briceño on 02-11-2024 Erythrocyte distribution width (RBC) [Entitic vol] 44.0 fL High 35.1-43.9 [facility] Erythrocyte distribution wid th ratioOrdered By: Mello Briceño on 02-11-2024 Erythrocyte distribution width (RBC) [Ratio] 14.8 % High 11.6-14.6 [facility] Estimated glomerular filtrat ion rate (GFR) AmericanOrdered By: Mello Briceño on 02-11-2024 Estimated GFR (MDRD) Amer 103 mL/min >60 [facility] Comment on above: GFR Calc Estimation of creatinine john aranceOrdered By: Mello Briceño on 02-11-2024 Estimated Creatinine Clearance Calc 61.22 ml/min [facility] Glomerular filtration rate ( GFR) estimationOrdered By: Mello Briceño on 02-11-2024 Estimated GFR (MDRD) Non-Af Amer 85 mL/min >60 [facility] Comment on above: Non- GFR Calc Glucose Ql (U)Ordered By: Guille Briceño on 02-11-2024 Urine Glucose (UA) Normal mg/dl Normal [facility] Glucose measurementOrdered B y: Mello Briceño on 02-11-2024 Glucose [Mass/Vol] 133 mg/dL High 74-106 [facility] Comment on above: Fasting Glucose resu lt greater than or equal to 126 mg/dL suggests DIABETES MELLITUS per A.D.A. criteria. Hematocrit Auto (Bld) [Volum e fraction]Ordered By: Mello Briceño on 02-11-2024 Hematocrit (Bld) [Volume fraction] 45.0 % 40-54 [facility] Hemoglobin measurementOrdere d By: Mello Briceño on 02-11-2024 Hemoglobin (Bld) [Mass/Vol] 16.1 g/dL 13.0-16.5 [facility] Immature granulocytes/100 WB C Auto (Bld)Ordered By: Mello Briceño on 02-11-2024 Immature granulocytes/100 WBC (Bld) 0.500 % 0.0-0.9 [facility] Comment on above: IG% - Immature Granu locytes (promyelocytes, myelocytes and metamyelocytes) > 1% indicates that a LEFT SHIFT is Present. Ketones Test strip Ql (U)Ord ered By: Mello Briceño on 02-11-2024 Ketones Ql (U) 5 mg/dl High Negative [facility] Lymphocytes Auto (Unsp spec) [#/Vol]Ordered By: Mello Briceño on 02-11-2024 Lymphocytes (Bld) [#/Vol] 1.47 10*3/uL 0.83-4.51 [facility] Lymphocytes/100 WBC Auto (Un sp spec)Ordered By: Mello Briceño on 02-11-2024 Lymphocytes/100 WBC (Bld) 14.8 % Low 19-41 [facility] MCV (mean corpuscular volume ) determinationOrdered By: Mello Briceño on 02-11-2024 MCV (RBC) [Entitic vol] 95.7 fL High 80-94 [facility] Mean corpuscular hemoglobin (MCH) determinationOrdered By: Mello Briceño on 02-11-2024 MCH (RBC) [Entitic mass] 34.3 pg High 27.0-32.0 [facility] Mean corpuscular hemoglobin concentration (MCHC) determinationOrdered By: Mello Briceño on 02-11-2024 MCHC (RBC) [Mass/Vol] 35.8 g/dL 32-36 [facility] Mean platelet volume determi nationOrdered By: Mello Briceño on 02-11-2024 Platelet mean volume (Bld) [Entitic vol] 10.7 fL 6.2-12.0 [facility] Microscopic analysis of urin e for red blood cells (RBC)Ordered By: Mello Briceño on 02-11-2024 Urine RBC > 100 SEEN /hpf 0-5 [facility] Monocyte percentageOrdered B y: Mello Briceño on 02-11-2024 Monocytes/100 WBC (Bld) 7.3 % 0-10 [facility] Mucus LM Ql (Urine sed)Order ed By: Mello Briceño on 02-11-2024 Mucus Ql (Urine sed) 0 SEEN /hpf [facility] Neutrophil percentageOrdered By: Mello Briceño on 02-11-2024 Neutrophils/100 WBC (Bld) 75.4 % High 47-70 [facility] Nitrite Test strip Ql (U)Ord ered By: Mello Briceño on 02-11-2024 Nitrite Ql (U) Positive High Negative [facility] Nucleated red blood cell per centageOrdered By: Mello Briceño on 02-11-2024 Nucleated RBC/100 WBC (Bld) [Ratio] 0 % 0-5 [facility] Platelet countOrdered By: Guille Briceño on 02-11-2024 Platelets (Bld) [#/Vol] 350 10*3/uL 150-450 [facility] Potassium measurementOrdered By: Mello Briceño on 02-11-2024 Potassium [Moles/Vol] 3.6 mmol/L 3.5-5.1 [facility] Protein Test strip Ql (U)Ord ered By: Mello Briceño on 02-11-2024 Protein Ql (U) 100 mg/dl High Negative [facility] RBC Auto (Bld) [#/Vol]Ordere d By: Mello Briceño on 02-11-2024 RBC (Bld) [#/Vol] 4.70 10*6/uL 4.6-6.2 [facility] Serum anion gap measurementO rdered By: Mello Briceño on 02-11-2024 Anion gap [Moles/Vol] 6 mmol/L 5-15 [facility] Serum or plasma calcium heather urement (mass/volume)Ordered By: Mello Briceño on 02-11-2024 Calcium [Mass/Vol] 9.4 mg/dL 8.5-10.1 [facility] Serum or plasma creatinine m easurement (mass/volume)Ordered By: Mello Briceño on 02-11-2024 Creatinine [Mass/Vol] 0.90 mg/dL 0.70-1.30 [facility] Comment on above: The validity of the calculated GFR & GFRAA in patients over 70 years has not been determined. Clinical correlation is essential. Serum or plasma urea nitroge n measurement (mass/volume)Ordered By: Mello Briceño on 02-11-2024 Urea nitrogen [Mass/Vol] 23 mg/dL High 7-18 [facility] Sodium levelOrdered By: Mello Briceño on 02-11-2024 Sodium [Moles/Vol] 140 mmol/L 136-145 [facility] Urinalysis, Completeon 02-10 BACTERIA 2+ /hpf Normal None Seen [facility] Comment on above: Order Comment: CLEAN CATCH Performed By: #### L [id number] ####[facility] [address] [place], [address] CA OX CRYSTAL RARE Normal [facility] Comment on above: Order Comment: CLEAN CATCH Performed By: #### L [id number] ####[facility] [address] [place], [address] EPI,SQUAMOUS 0-5 SEEN Normal 0-5 [facility] Comment on above: Order Comment: CLEAN CATCH Performed By: #### L [id number] ####[facility] [address] [place], [address] RBC > 100 SEEN Normal 0-5 [facility] Comment on above: Order Comment: CLEAN CATCH Performed By: #### L [id number] ####[facility] [address] [place], [address] WBC 50-100 SEEN Normal 0-5 [facility] Comment on above: Order Comment: CLEAN CATCH Performed By: #### L [id number] ####[facility] [address] [place], [address] Mucus Ql (Urine sed) 0 SEEN Normal [facility] Comment on above: Order Comment: CLEAN CATCH Performed By: #### L [id number] ####[facility] [address] [place], [address] Urine blood detectionOrdered By: Mello Briceño on 02-11-2024 Urine Occult Blood 250 /ul High Negative [facility] Urine clarityOrdered By: Rajwinder Briceño on 02-11-2024 Clarity (U) Cloudy Clear [facility] Urine color determinationOrd ered By: Mello Briceño on 02-11-2024 Color (U) Yellow Yellow [facility] Urine cultureOrdered By: Rajwinder Briceño on 02-11-2024 Bacteria identified Cx Nom (U) Staphylococcus epidermidis Abnormal [facility] Urine leukocyte esterase det ection by dipstickOrdered By: Mello Briceño on 02-11-2024 Leukocyte esterase Test strip Ql (U) 500 /ul High Negative [facility] Urine pHOrdered By: Mello turner on 02-11-2024 pH (U) 6.0 [pH] 5.0 - 8.0 [facility] Urine sediment bacteria coun t by microscopy (number/high power field)Ordered By: Mello Briceño on 02-11-2024 Bacteria LM.HPF (Urine sed) [#/Area] 2 /[HPF] None Seen [facility] Urine specific gravity measu rementOrdered By: Mello Briceño on 02-11-2024 Specific gravity (U) [Rel density] 1.020 1.002-1.030 [facility] Urobilinogen Ql (U)Ordered B y: Mello Briceño on 02-11-2024 Urobilinogen (U) [Mass/Vol] 1 mg/dL High Normal [facility] White blood cell (WBC) count Ordered By: Mello Briceño on 02-11-2024 WBC (Bld) [#/Vol] 10.0 10*3/uL 4.4-11.0 [facility] White blood cell countOrdere d By: Mello Briceño on 02-11-2024 Urine WBC 50-100 SEEN /hpf 0-5 [facility] CNPN Telephone (FAMWS) -- RAMONITA EL Brynn ([id number]) 1940 M NFR Date Time Provider Department 02/05/24 KARLA BARON [facility] During your visit today, we recorded the following information about you: Ashley Grant RN 02/05/2024 8:16 AM Signed Patient was seen recently seen at [facility] on 02/01/24 for right shoulder pain. Pt states he was informed by provider at that appt that he would be getting Physical Therapy for his shoulder. Patient calling in now to discuss therapy scheduling. No Physical Therapy order noted. Informed patient that he has a referral order to see Orthopedics. Pt states he is not interested in seeing Orthopedics and ended call. Will send this update to provider for update. Please contact patient if other recommendations are advised. Ashley Grant RN Allergies As of Date: 02/05/2024 Noted Allergy Reaction DUST MITES 12/13/2006 LIPITOR (ATORVASTATIN) 12/04/2007 Comments: myalgia LISINOPRIL 12/04/2007 Comments: cough PENICILLINS 10/14/2004 4 - Hives PLETAL (CILOSTAZOL) 09/04/2019 14 - Other: See Comments Comments: chest pain PRAVASTATIN 05/10/2015 17 - Myalgia Date Reviewed: 02/01/2024 Reviewed by: Gus Sanchez APRN.[facility] - Fully Assessed Reason for Visit: Patient Update [1234] Prescriptions as of 02/08/2024 - brimonidine 0.2 % drop, timolol maleate 0.5 % drop - hydrOXYzine HCl (ATARAX) 25 mg tablet Take 1 tablet by mouth every 8 hours as needed for anxiety. - losartan (COZAAR) 25 mg tablet Take 1 tablet by mouth once daily. - metoprolol tartrate, short acting, (LOPRESSOR) 100 mg tablet Take 1 tablet by mouth two times a day. - tiZANidine (ZANAFLEX) 4 mg tablet Take 0.5-1 tablets by mouth at bedtime as needed (muscle spasms/insomnia). - amLODIPine (NORVASC) 10 mg tablet Take 1 tablet by mouth once daily. - clopidogrel (PLAVIX) 75 mg tablet Take 1 tablet by mouth once daily. - tamsulosin (FLOMAX) 0.4 mg Take 1 capsule by mouth once daily. - pantoprazole DR (PROTONIX) 20 mg tablet TAKE 1 TABLET BY MOUTH 1/2 HOUR BEFORE BREAKFAST ON AN EMPTY STOMACH ONCE DAILY - timolol maleate (TIMOPTIC) 0.5 % ophthalmic solution - latanoprost (XALATAN) 0.005 % ophthalmic solution Problem List As Of Date 02/05/2024 Noted Resolved Essential hypertension, benign [I10] 12/10/2006 Coronary atherosclerosis [I25.10] 12/10/2006 BPH with obstruction/lower urinary tract sympto*08/15/2007 Carotid artery bruit [R09.89] 11/20/2008 10/18/2011 Allergic Rhinitis [J30.9] 05/26/2009 S/P coronary artery stent placement [Z95.5] 08/10/2006 Hyperlipidemia LDL Goal <70 [E78.5] 08/17/2009 Sinus congestion [R09.81] 12/12/2011 2016 Dupuytren's contracture of left hand [M72.0] 01/25/2012 09/06/2017 Tobacco abuse [Z72.0] 05/22/2013 Alcohol abuse [F10.10] 05/22/2013 UTI (lower urinary tract infection) [N39.0] 09/23/2013 2014 BPH (benign prostatic hyperplasia) [N40.0] 09/23/2013 2016 Guaiac positive stools [R19.5] 05/07/2015 03/17/2016 Occult blood in stools [R19.5] 05/10/2015 03/17/2016 Gastroesophageal reflux disease [K21.9] 05/10/2015 Poor sleep [Z72.820] 05/10/2015 Depression [F32.A] 05/10/2015 03/30/2017 Peripheral arterial disease (HCC) [I73.9] 03/01/2016 Acute blood loss anemia [D62] 03/02/2016 09/06/2017 Hypoxemia [R09.02] 03/05/2016 03/17/2016 Pneumonia [J18.9] 03/05/2016 03/17/2016 Disorder of lymphatic vessel [I89.9] 04/04/2016 Malnutrition of mild degree (HCC) [E44.1] 04/11/2016 03/30/2017 Hypertension [I10] 09/06/2017 Nicotine dependence [F17.200] 09/06/2017 Stented coronary artery [Z95.5] 09/06/2017 Chronic anxiety [F41.9] 10/22/2017 Psoriasis (a type of skin inflammation) [L40.9] 08/15/2018 Calcium oxalate stones [N20.0] 06/27/2019 Proteinuria [R80.9] 06/27/2019 Microscopic hematuria [R31.29] 06/27/2019 Elevated PSA [R97.20] 03/09/2020 History of endarterectomy [Z98.890] 09/23/2020 Chronic interstitial lung disease (HCC) [J84.9] 09/23/2020 Pancreatic calcification [K86.89] 10/03/2020 Diverticulosis of colon [K57.30] 10/03/2020 Adrenal adenoma, left [D35.02] 10/03/2020 Bladder stone [N21.0] 10/03/2020 Renal calculi [N20.0] 10/03/2020 Encounter for support and coordination of trans*12/12/2020 Chronic pancreatitis (HCC) [K86.1] 10/10/2022 Diagnosed: 10/10/2022 History of acute anterolateral wall FL [I25.2] 08/10/2006 Diagnosed: 10/10/2022 Vascular disorder of extremity (HCC) [I73.9] 10/10/2022 Diagnosed: 10/10/2022 Encounter Status:Closed by ASHLEY GRANT on 02/08/24 [facility] 02-04-2024 AMBROSIO Telephone (4CQ) -- RAMONITA EL ([id number]) 1940 M NFR Date Time Provider Department 02/04/24 KARLA BARON 4CQ During your visit today, we recorded the following information about you: Ashley Stoddard 02/04/2024 9:57 AM Addendum Patient was seen at [facility] ER on 01/29 cath was placed and advised for removal in 3-5 days. I did check with urology [facility] 02[facility]15[facility]24 at [facility]. Patient called Dr Johnson and there first opening was 02/17 and that is why he was calling us for a sooner appointment , patient upset PCP would not remove sooner and declined to arrange his ER follow up Karla Baron APRN.[employer] 02/04/2024 5:40 PM Signed That is fine, as he actually needs urology follow-up and not primary care follow-up, as advised in the ER. He had a liter in his bladder when the ER put the catheter in. He needs to have an evaluation by urology before the catheter is removed, as he may not be able to urinate again once the catheter is removed. Kay Anguiano RN 02/04/2024 6:13 PM Signed Called and left a voicemail for the Patient to call back and ask for a nurse to receive the providers message. ROBERT Hernandez Sherrie, RN 02/05/2024 8:16 AM Signed Patient returned call and given provider's message below and patient verbalized understanding. Patient plans to keep appt with Dr. Johnson for 02/18/24. Amy Grant RN Allergies As of Date: 02/04/2024 Noted Allergy Reaction DUST MITES 12/13/2006 LIPITOR (ATORVASTATIN) 12/04/2007 Comments: myalgia LISINOPRIL 12/04/2007 Comments: cough PENICILLINS 10/14/2004 4 - Hives PLETAL (CILOSTAZOL) 09/04/2019 14 - Other: See Comments Comments: chest pain PRAVASTATIN 05/10/2015 17 - Myalgia Date Reviewed: 02/01/2024 Reviewed by: Gus Sanchez APRN.[employer] - Fully Assessed Reason for Visit: Patient Update [1234] Prescriptions as of 02/05/2024 - brimonidine 0.2 % drop, timolol maleate 0.5 % drop - hydrOXYzine HCl (ATARAX) 25 mg tablet Take 1 tablet by mouth every 8 hours as needed for anxiety. - losartan (COZAAR) 25 mg tablet Take 1 tablet by mouth once daily. - metoprolol tartrate, short acting, (LOPRESSOR) 100 mg tablet Take 1 tablet by mouth two times a day. - tiZANidine (ZANAFLEX) 4 mg tablet Take 0.5-1 tablets by mouth at bedtime as needed (muscle spasms/insomnia). - amLODIPine (NORVASC) 10 mg tablet Take 1 tablet by mouth once daily. - clopidogrel (PLAVIX) 75 mg tablet Take 1 tablet by mouth once daily. - tamsulosin (FLOMAX) 0.4 mg Take 1 capsule by mouth once daily. - pantoprazole DR (PROTONIX) 20 mg tablet TAKE 1 TABLET BY MOUTH 1/2 HOUR BEFORE BREAKFAST ON AN EMPTY STOMACH ONCE DAILY - timolol maleate (TIMOPTIC) 0.5 % ophthalmic solution - latanoprost (XALATAN) 0.005 % ophthalmic solution Problem List As Of Date 02/04/2024 Noted Resolved Essential hypertension, benign [I10] 12/10/2006 Coronary atherosclerosis [I25.10] 12/10/2006 BPH with obstruction/lower urinary tract sympto*08/15/2007 Carotid artery bruit [R09.89] 11/20/2008 10/18/2011 Allergic Rhinitis [J30.9] 05/26/2009 S/P coronary artery stent placement [Z95.5] 08/10/2006 Hyperlipidemia LDL Goal <70 [E78.5] 08/17/2009 Sinus congestion [R09.81] 12/12/2011 2016 Dupuytren's contracture of left hand [M72.0] 01/25/2012 09/06/2017 Tobacco abuse [Z72.0] 05/22/2013 Alcohol abuse [F10.10] 05/22/2013 UTI (lower urinary tract infection) [N39.0] 09/23/2013 2014 BPH (benign prostatic hyperplasia) [N40.0] 09/23/2013 2016 Guaiac positive stools [R19.5] 05/07/2015 03/17/2016 Occult blood in stools [R19.5] 05/10/2015 03/17/2016 Gastroesophageal reflux disease [K21.9] 05/10/2015 Poor sleep [Z72.820] 05/10/2015 Depression [F32.A] 05/10/2015 03/30/2017 Peripheral arterial disease (HCC) [I73.9] 03/01/2016 Acute blood loss anemia [D62] 03/02/2016 09/06/2017 Hypoxemia [R09.02] 03/05/2016 03/17/2016 Pneumonia [J18.9] 03/05/2016 03/17/2016 Disorder of lymphatic vessel [I89.9] 04/04/2016 Malnutrition of mild degree (HCC) [E44.1] 04/11/2016 03/30/2017 Hypertension [I10] 09/06/2017 Nicotine dependence [F17.200] 09/06/2017 Stented coronary artery [Z95.5] 09/06/2017 Chronic anxiety [F41.9] 10/22/2017 Psoriasis (a type of skin inflammation) [L40.9] 08/15/2018 Calcium oxalate stones [N20.0] 06/27/2019 Proteinuria [R80.9] 06/27/2019 Microscopic hematuria [R31.29] 06/27/2019 Elevated PSA [R97.20] 03/09/2020 History of endarterectomy [Z98.890] 09/23/2020 Chronic interstitial lung disease (HCC) [J84.9] 09/23/2020 Pancreatic calcification [K86.89] 10/03/2020 Diverticulosis of colon [K57.30] 10/03/2020 Adrenal adenoma, left [D35.02] 10/03/2020 Bladder stone [N21.0] 10/03/2020 Renal calculi [N20.0] 10/03/2020 Encounter for support and coordination of trans*12/12/2020 Chronic pancreatitis (HCC) [K86.1] 10/10/2022 D (more content not included)... Normal [facility] CNOVon 02-01-2024 CNOV Office Visit (UCWSTR ) -- RAMONITA EL ([id number]) 1940 M NFR Date Time Provider Department 02/01/24 8:30 AM GUS SANCHEZ [facility] During your visit today, we recorded the following information about you: Temperature Pulse Respiration Blood pressure 97.9 degrees 86/minute 18/minute 107/82 Weight 73.5 kg Gus Sanchez APRN.[employer] 02/01/2024 9:41 AM Signed Subjective HPI Nontoxic-appearing male presents urgent care chief complaint right shoulder pain. Duration of symptom 1 day. Associated symptoms like shoulder injury. Patient states was getting up out of his chair when he pushed with his right arm and felt a pop in his shoulder. Has decreased range of motion due to discomfort. No weakness. Denies any other injuries. No numbness or tingling. [id number]. No surgeries fractures previously. Past medical history prescription medications allergies reviewed. 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 cruciate tear, poss. meniscal tear Osteopenia 06/21/2013 Peripheral arteriosclerosis ([facility]) 08/16/2009 PMH - PAST MEDICAL HISTORY OF 1982 laceration wrist, suicidal gesture Radius fracture 06/21/2013 See scanned documents [facility] Tobacco abuse 05/22/2013 Urinary calculus, unspecified 01/05 Renal stone right side; 3 episodes with stones altogether with extraction in 196 PAST SURGICAL HISTORY Procedure Laterality Date ATHERECTOMY, FEMORAL-POPLITEAL 09/28/2009 right COLONOSCOPY 12/26/2023 COLONOSCOPY FLX DX W/COLLJ SPEC WHEN PFRMD 06/21/2015 Colonoscopy CORONARY ENDARTERCOMY OPEN ANY METHOD 08/10/2006 Angioplasty with stent ECHOCARDIOGRAM 11/24/2020 11/25/[address] Puentes: LV size and LVSF WNL, EF 55%, structurally normal valves EGD 12/26/2023 ESOPHAGOGASTRODUODENOSCOPY TRANSORAL DIAGNOSTIC 06/21/2015 EGD PAST SURGICAL HISTORY OF 04/05/1999 Cautery and outfracture of inferior turbinates. Removal fx fragment PAST SURGICAL HISTORY OF 1960 renal stone extraction: PAST SURGICAL HISTORY OF dental extraction PICC LINE INSERT/CONSULT 04/11/2016 SLCTV CATHJ 3RD+ ORD SLCTV ABDL PEL/LXTR BRNCH 09/28/2009 VASECTOMY UNI/BI SPX W/POSTOP SEMEN EXAMS 10/1984 ALLERGIES Dust Mites, Lipitor [Atorvastatin], Lisinopril, Penicillins, Pletal [Cilostazol], and Pravastatin MEDICATIONS brimonidine 0.2 % drop, timolol maleate 0.5 % drop hydrOXYzine HCl (ATARAX) 25 mg tablet Take 1 tablet by mouth every 8 hours as needed for anxiety. losartan (COZAAR) 25 mg tablet Take 1 tablet by mouth once daily. metoprolol tartrate, short acting, (LOPRESSOR) 100 mg tablet Take 1 tablet by mouth two times a day. tiZANidine (ZANAFLEX) 4 mg tablet Take 0.5-1 tablets by mouth at bedtime as needed (muscle spasms/insomnia). amLODIPine (NORVASC) 10 mg tablet Take 1 tablet by mouth once daily. clopidogrel (PLAVIX) 75 mg tablet Take 1 tablet by mouth once daily. tamsulosin (FLOMAX) 0.4 mg Take 1 capsule by mouth once daily. pantoprazole DR (PROTONIX) 20 mg tablet TAKE 1 TABLET BY MOUTH 1/2 HOUR BEFORE BREAKFAST ON AN EMPTY STOMACH ONCE DAILY timolol maleate (TIMOPTIC) 0.5 % ophthalmic solution latanoprost (XALATAN) 0.005 % ophthalmic solution FAMILY HISTORY Problem Relation Age of Onset Cancer Mother age 42 leukemia None Father father ubknown to pt. Coronary Artery Disease Brother bypass Social History Tobacco Use Smoking status: Every Day Current packs/day: 0.00 Average packs/day: 1 pack/day for 63.2 years (63.2 ttl pk-yrs) Types: Cigarettes Start date: 02/05/1959 Last attempt to quit: 04/19/2022 Years since quittin.7 Smokeless tobacco: Never Vaping Use Vaping status: Never Used Substance Use Topics Alcohol use: Yes Comment: Socially Drug use: No BP 107/82 Pulse 86 Temp 36.6 ?C (97.9 ?F) Resp 18 Wt 73.5 kg (162 lb 0.6 oz) SpO2 97% BMI 25.38 kg/m? Review of Systems Constitutional: Negative for chills, fever and malaise/fatigue. Musculoskeletal: Positive for joint pain. Negative for back pain, falls, myalgias and neck pain. Neurological: Negative for dizziness, loss of consciousness, weakness and headaches. Objective Physical Exam Constitutional: General: He is not in acute distress. Appearance: He is not (more content not included)... Normal [facility] XR SHLDR >/=3V AP/LUPE AP/OTH R RTon 02-01-2024 XR SHLDR >/=3V AP/LUPE AP/OTHR RT * * *Final Report* * * DATE OF EXAM: Feb 01 2024 9:04AM WOX [id number] - XR SHLDR >/=3V AP/LUPE AP/OTHR RT / PROCEDURE REASON: Acute pain of right shoulder * * * * Physician Interpretation * * * * EXAM TITLE: XR SHLDR >/=3V AP/LUPE AP/OTHR RT EXAM DATE/TIME: 02/01/2024 9:04 AM COMPARISON: X-ray shoulder on 11/29/2010 CLINICAL INDICATION/HISTORY: Acute shoulder pain TECHNIQUE: AP, true AP and Y views of the right shoulder are presented FINDINGS: No acute fractures or subluxations are noted. There appears be acromioclavicular joint space narrowing, with osteophyte formation. The glenohumeral joint space is grossly maintained however osteophyte formation is noted. Hypertrophic degenerative changes of the acromion. The acromiohumeral interval is maintained. The mineralization of the bones is normal. There is no significant soft tissue swelling. IMPRESSION: Degenerative changes in the right shoulder as described above. Simulation Developer: JUANCARLOS Transcribe Date/Time: Feb 01 2024 9:10A Dictated by : ELLIE JOSEPH MD This examination was interpreted and the report reviewed and electronically signed by: ELLIE JOSEPH MD on Feb 01 2024 9:14AM EST [id number] Normal [facility] XR Shoulder - right 3 Viewso n 02-01-2024 IMPRESSION: Degenera tive changes in the right shoulder as described above. Simulation Developer: [facility] Transcribe Date/Time: Feb 01 2024 9:10A Dictated by : ELLIE JOSEPH MD This examination was interpreted and the report reviewed and electronically signed by: ELLIE JOSEPH MD on Feb 01 2024 9:14AM EST DIVISION OF RADIOLOGY * * *Final Report* * * DATE OF EXAM: Feb 01 2024 9:04AM WOX [id number] - XR SHLDR >/=3V AP/LUPE AP/OTHR RT / PROCEDURE REASON: Acute pain of right shoulder * * * * Physician Interpretation * * * * EXAM TITLE: XR SHLDR >/=3V AP/LUPE AP/OTHR RT EXAM DATE/TIME: 02/01/2024 9:04 AM COMPARISON: X-ray shoulder on 11/29/2010 CLINICAL INDICATION/HISTORY: Acute shoulder pain TECHNIQUE: AP, true AP and Y views of the right shoulder are presented FINDINGS: No acute fractures or subluxations are noted. There appears be acromioclavicular joint space narrowing, with osteophyte formation. The glenohumeral joint space is grossly maintained however osteophyte formation is noted. Hypertrophic degenerative changes of the acromion. The acromiohumeral interval is maintained. The mineralization of the bones is normal. There is no significant soft tissue swelling. DIVISION OF RADIOLOGY Provider[facility]24 * * *Final Report* * * DATE OF EXAM: Feb 01 2024 9:04AM WOX [id number] - XR SHLDR >/=3V AP/LUPE AP/OTHR RT / PROCEDURE REASON: Acute pain of right shoulder * * * * Physician Interpretation * * * * EXAM TITLE: XR SHLDR >/=3V AP/LUPE AP/OTHR RT EXAM DATE/TIME: 02/01/2024 9:04 AM COMPARISON: X-ray shoulder on 11/29/2010 CLINICAL INDICATION/HISTORY: Acute shoulder pain TECHNIQUE: AP, true AP and Y views of the right shoulder are presented FINDINGS: No acute fractures or subluxations are noted. There appears be acromioclavicular joint space narrowing, with osteophyte formation. The glenohumeral joint space is grossly maintained however osteophyte formation is noted. Hypertrophic degenerative changes of the acromion. The acromiohumeral interval is maintained. The mineralization of the bones is normal. There is no significant soft tissue swelling. IMPRESSION IMPRESSION: Degenerative changes in the right shoulder as described above. Simulation Developer: JUANCARLOS Transcribe Date/Time: Feb 01 2024 9:10A Dictated by : ELLIE JOSEPH MD This examination was interpreted and the report reviewed and electronically signed by: ELLIE JOSEPH MD on Feb 01 2024 9:14AM EST [facility] Radiology Study observation (narrative) [facility] XR Shoulder - right 3 ViewsO rdered By: [facility] Provider on 02-01-2024 [facility] Absolute neutrophil countOrd ered By: Lindy Blanco on 01-30-2024 Neutrophils (Bld) [#/Vol] 9.6 10*3/uL High 2.0-7.7 [facility] Basic Metabolic Profile (BMP )on 01-30-2024 BUN/CRE 18.3 RATIO Normal 10-20 [facility] Comment on above: Performed By: #### L 500.2500, L100.0100 ####[facility] [address] [place], [address] CA,Total 9.0 mg/dL Normal 8.5-10.1 [facility] Comment on above: Performed By: #### L 500.2500, L100.0100 ####[facility] [address] [place], [address] Chloride [Moles/Vol] 102 mmol/L Normal 98-107 [facility] Comment on above: Performed By: #### L 500.2500, L100.0100 ####[facility] [address] [place], [address] CO2 [Moles/Vol] 25.0 mmol/L Normal 21.0-32.0 [facility] Comment on above: Performed By: #### L 500.2500, L100.0100 ####[facility] [address] [place], [address] Creatinine [Mass/Vol] 0.98 mg/dL Normal 0.70-1.30 [facility] Comment on above: Result Comment: The validity of the calculated GFR GFRAA in patients over 70 years has not been determined. Clinical correlation is essential. Performed By: #### L 500.2500, L100.0100 ####[facility] [address] [place], [address] ECRCL 56.22 ml/min Normal [facility] Comment on above: Performed By: #### L 500.2500, L100.0100 ####[facility] [address] [place], [address] EST GFR - AA 94 mL/min Normal >60 [facility] Comment on above: Result Comment: Afri can Bahraini GFR Calc Performed By: #### L 500.2500, L100.0100 ####[facility] [address] [place], [address] GAP 6 Normal 5-15 [facility] Comment on above: Performed By: #### L 500.2500, L100.0100 ####[facility] [address] [place], [address] GFR/1.73 sq M.predicted among non-blacks MDRD (S/P/Bld) [Vol rate/Area] 78 mL/min/{1.73_m2} Normal >60 [facility] Comment on above: Result Comment: Non- GFR Calc Performed By: #### L 500.2500, L100.0100 ####[facility] [address] [place], [address] Glucose [Mass/Vol] 141 mg/dL High 74-106 [facility] Comment on above: Result Comment: Fast ing Glucose result greater than or equal to 126 mg/dL suggests DIABETES MELLITUS per A.D.A. criteria. Performed By: #### L 500.2500, L100.0100 ####[facility] [address] [place], [address] Potassium [Moles/Vol] 4.7 mmol/L Normal 3.5-5.1 [facility] Comment on above: Performed By: #### L 500.2500, L100.0100 ####[facility] [address] [place], [address] Sodium [Moles/Vol] 133 mmol/L Low 136-145 [facility] Comment on above: Performed By: #### L 500.2500, L100.0100 ####[facility] [address] [place], [address] Urea nitrogen [Mass/Vol] 18 mg/dL Normal 7-18 [facility] Comment on above: Performed By: #### L 500.2500, L100.0100 ####[facility] [address] [place], [address] Basophil percentageOrdered B y: Remus Ungur on 01-30-2024 Basophils/100 WBC (Bld) 0.5 % 0-1 [facility] Bilirubin Test strip Ql (U)O rdered By: Remus Ungur on 01-30-2024 Bilirubin Ql (U) Negative Negative [facility] Blood urea nitrogen (BUN)/cr eatinine ratioOrdered By: Remus Ungur on 01-30-2024 Urea nitrogen/Creatinine [Mass ratio] 18.3 mg/mg 10-20 [facility] CBC W/Diff, Automatedon 12-2 Absolute Lymph 1.06 X10 3/uL Normal 0.83-4.51 [facility] Comment on above: Performed By: #### L 500.2500, L100.0100 ####[facility] [address] [place], [address] Absolute Neut 9.6 X10 3/uL High 2.0-7.7 [facility] Comment on above: Performed By: #### L 500.2500, L100.0100 ####[facility] [address] [place], [address] Basophils/100 WBC (Bld) 0.5 % Normal 0-1 [facility] Comment on above: Performed By: #### L 500.2500, L100.0100 ####[facility] [address] [place], [address] Eosinophils/100 WBC (Bld) 0.2 % Normal 0-5 [facility] Comment on above: Performed By: #### L 500.2500, L100.0100 ####[facility] [address] [place], [address] Erythrocyte distribution width (RBC) [Ratio] 13.1 % Normal 11.6-14.6 [facility] Comment on above: Performed By: #### L 500.2500, L100.0100 ####[facility] [address] [place], [address] Hematocrit (Bld) [Volume fraction] 45.2 % Normal 40-54 [facility] Comment on above: Performed By: #### L 500.2500, L100.0100 ####[facility] [address] [place], [address] Hemoglobin (Bld) [Mass/Vol] 15.9 g/dL Normal 13.0-16.5 [facility] Comment on above: Performed By: #### L 500.2500, L100.0100 ####[facility] [address] [place], [address] IG% 0.400 Normal 0.0-0.9 [facility] Comment on above: Result Comment: IG% - Immature Granulocytes (promyelocytes, myelocytes and metamyelocytes) > 1% indicates that a LEFT SHIFT is Present. Performed By: #### L 500.2500, L100.0100 ####[facility] [address] [place], [address] Lymphocytes/100 WBC (Bld) 9.3 % Low 19-41 [facility] Comment on above: Performed By: #### L 500.2500, L100.0100 ####[facility] [address] [place], [address] MCH (RBC) [Entitic mass] 31.2 pg Normal 27.0-32.0 [facility] Comment on above: Performed By: #### L 500.2500, L100.0100 ####[facility] [address] [place], [address] MCHC (RBC) [Mass/Vol] 35.2 g/dL Normal 32-36 [facility] Comment on above: Performed By: #### L 500.2500, L100.0100 ####[facility] [address] [place], [address] MCV (RBC) [Entitic vol] 88.6 fL Normal 80-94 [facility] Comment on above: Performed By: #### L 500.2500, L100.0100 ####[facility] [address] [place], [address] Monocytes/100 WBC (Bld) 5.3 % Normal 0-10 [facility] Comment on above: Performed By: #### L 500.2500, L100.0100 ####[facility] [address] [place], [address] Neutrophils/100 WBC (Bld) 84.3 % High 47-70 [facility] Comment on above: Performed By: #### L 500.2500, L100.0100 ####[facility] [address] [place], [address] Nucleated RBC (Bld) [#/Vol] 0 10*3/uL Normal 0-5 [facility] Comment on above: Performed By: #### L 500.2500, L100.0100 ####[facility] [address] [place], [address] Platelet mean volume (Bld) [Entitic vol] 10.5 fL Normal 6.2-12.0 [facility] Comment on above: Performed By: #### L 500.2500, L100.0100 ####[facility] [address] [place], [address] Platelets (Bld) [#/Vol] 274 10*3/uL Normal 150-450 [facility] Comment on above: Performed By: #### L 500.2500, L100.0100 ####[facility] [address] [place], [address] RBC (Bld) [#/Vol] 5.10 10*6/uL Normal 4.6-6.2 [facility] Comment on above: Performed By: #### L 500.2500, L100.0100 ####[facility] [address] [place], [address] RDW SD 42.7 fl Normal 35.1-43.9 [facility] Comment on above: Performed By: #### L 500.2500, L100.0100 ####[facility] [address] [place], [address] WBC (Bld) [#/Vol] 11.4 10*3/uL High 4.4-11.0 [facility] Comment on above: Performed By: #### L 500.2500, L100.0100 ####[facility] [address] [place], [address] Carbon dioxide measurementOr dered By: Lindy Blanco on 01-30-2024 CO2 [Moles/Vol] 25.0 mmol/L 21.0-32.0 [facility] Chloride measurementOrdered By: Lindy Blanco on 01-30-2024 Chloride [Moles/Vol] 102 mmol/L 98-107 [facility] Emergency Department Summary on 01-30-2024 Emergency Department Summary [facility] Medical Records Department [address] [place] [address] Emergency Department Summary 01/30/24 MR#: [id number] Acct: [id number] Name: RAMONITA EL Rep #: [id number] : 1940 83 From: Lindy Blanco DO PCP: RAYO Pillai Status:DEP ER Location: ED HPI History of Present Illness Chief Complaint: Complaint Detail of Chief Complaint: Unable to urinate Informant: patient Narrative Narrative: Patient presents with inability to urinate. He last urinated last evening. Years ago he had similar issue. Patient describes lower abdominal discomfort. Denies fever or vomiting. Patient wi th history of COPD and history of peripheral vascular disease. Patient has history of a cardiac stent. Patient on Flomax. 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) Encounter for pre-operative cardiovascular clearance Hypertrophy of prostate with urinary obstruction 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 Chronic pancreatitis Atherosclerosis of coronary artery without angina pectoris Essential hypertension Alcoholism Home Medications ???Medication ???Instructions ???Recorded ???Last Taken ???Type amlodipine 10 mg tablet 10 mg PO DAILY 05/02/16 12/08/20 04:00 History clopidogrel 75 mg tablet 75 mg PO DAILY 05/02/16 11/30/20 History tamsulosin 0.4 mg capsule (Flomax) 0.4 mg PO DAILY 05/02/16 12/07/20 History hydroxyzine HCl 25 mg tablet 25 mg PO DAILY PRN rash 11/09/20 Unknown History metoprolol tartrate 100 mg tablet 100 mg PO BID 11/09/20 12/08/20 04:00 History pantoprazole 20 mg tablet,delayed 20 mg PO DAILY 11/09/20 12/07/20 History release (Protonix) ibuprofen 600 mg tablet 600 mg PO Q6H PRN pain #20 tabs 12/08/20 Unknown Rx Allergy/AdvReac Type Severity Reaction Status Date / Time Penicillins Allergy Hives Verified 01/16/24 04:02 Surgical History History of angioplasty of peripheral vessel (09/28/09) History of coronary artery stent placement (08/10/06) Social History Smoking Status: Heavy Smoker (>10/day) ROS ROS ED Review of Systems ROS Unobtainable: other Constitutional Constitutional ED: Reports lethargy; Denies chills, fever(s), sweats or weight loss Eyes Eyes: Denies blurry vision, change in vision or diplopia ENT ENT ED: Denies rhinorrhea or sore throat Cardiovascular Cardiovascular: Denies chest pain, orthopnea or racing heartbeat Respiratory/Chest Respiratory/Chest: Denies cough, dyspnea, dyspnea on exertion, orthopnea or sputum Gastrointestinal Gastrointestinal: Reports abdominal pain; Denies diarrhea, nausea or vomiting Genitourinary Genitourinary ED: Reports other Details: Urinary retention ; Denies dysuria, hematuria or urinary frequency Musculoskeletal Musculoskeletal: Denies arthralgias, back pain, myalgias or neck pain Integumentary Denies abscess, Abrasions or rash Neurologic Neurologic: Denies headache(s) or weakness Psychiatric Psychiatric: Denies anxiety, depression or suicidal thoughts Endocrine Endocrinology: Denies polydipsia, polyphagia or polyuria Hematologic/Lymphatic Hematologic/Lymphatic: Denies easy bleeding, easy bruising or lymphadenopathy Allergic/Immunologic Allergic/Immunologic ED: Denies mouth swelling, tongue swelling or urticaria EXAM Physical Exam Const Vital Signs: 01/30/24 11:05 Temperature 98 F Temperature Source Temporal Pulse Rate 77 Respiratory Rate 18 Blood Pressure 156/107 H Blood Pressure Mean 123 Pulse Ox 98 Oxygen Delivery Method Room Air Positive well nourished and well developed General Appearance ED: well developed and NAD HEENT Reports TM's clear and moist mucous membranes normocephalic and atraumatic; Negative for trauma or tenderness Tympanic Membrane ED: Yes TM's clear Eyes PERRL and EOMs intact bilaterally General Eye ED: Negative for pale conjunctiva or scleral icterus Neck no lymphadenopathy, supple and no JVD General: Negative for tenderness Chest Wall inspection of chest normal and palpation of chest normal Chest: Negative for tenderness Resp normal respiratory effort and clear to auscultation bilaterally Effort and Inspection: Negative for respiratory distress or pain with movement Auscultation: Negative for rhonchi, wheezes or diminished lung sounds Cardio regular rate, regular rhythm, S1 normal heart sound, S2 normal heart sound and no murmurs Peripheral Pulses: pulses 2+ throughout (more content not included)... Normal [facility] Eosinophil percentageOrdered By: Lindy Blanco on 01-30-2024 Eosinophils/100 WBC (Bld) 0.2 % 0-5 [facility] Epithelial cells.squamous LM Ql (Urine sed)Ordered By: Lindy Blanco on 01-30-2024 Epithelial cells.squamous LM.HPF (Urine sed) [#/Area] 0 /[HPF] 0-5 [facility] Erythrocyte distribution wid th (RBC) [Ratio]Ordered By: Lindy Blanco on 01-30-2024 Erythrocyte distribution width (RBC) [Entitic vol] 42.7 fL 35.1-43.9 [facility] Erythrocyte distribution wid th ratioOrdered By: Lindy Blanco on 01-30-2024 Erythrocyte distribution width (RBC) [Ratio] 13.1 % 11.6-14.6 [facility] Estimated glomerular filtrat ion rate (GFR) AmericanOrdered By: Lindy Blanco on 01-30-2024 Estimated GFR (MDRD) Amer 94 mL/min >60 [facility] Comment on above: GFR Calc Estimation of creatinine john aranceOrdered By: Lindy Blanco on 01-30-2024 Estimated Creatinine Clearance Calc 56.22 ml/min [facility] Glomerular filtration rate ( GFR) estimationOrdered By: Lindy Dubonjimi on 01-30-2024 Estimated GFR (MDRD) Non-Af Amer 78 mL/min >60 [facility] Comment on above: Non- GFR Calc Glucose Ql (U)Ordered By: Krystyna lisa Bella on 01-30-2024 Urine Glucose (UA) Normal mg/dl Normal [facility] Glucose measurementOrdered B y: Lindy Dubonjimi on 01-30-2024 Glucose [Mass/Vol] 141 mg/dL High 74-106 [facility] Comment on above: Fasting Glucose resu lt greater than or equal to 126 mg/dL suggests DIABETES MELLITUS per A.D.A. criteria. Hematocrit Auto (Bld) [Volum e fraction]Ordered By: Lindy Bella on 01-30-2024 Hematocrit (Bld) [Volume fraction] 45.2 % 40-54 [facility] Hemoglobin measurementOrdere d By: Lindy Dubonjimi on 01-30-2024 Hemoglobin (Bld) [Mass/Vol] 15.9 g/dL 13.0-16.5 [facility] Immature granulocytes/100 WB C Auto (Bld)Ordered By: Lindy Bella on 01-30-2024 Immature granulocytes/100 WBC (Bld) 0.400 % 0.0-0.9 [facility] Comment on above: IG% - Immature Granu locytes (promyelocytes, myelocytes and metamyelocytes) > 1% indicates that a LEFT SHIFT is Present. Ketones Test strip Ql (U)Ord ered By: Lindy Dubonjimi on 01-30-2024 Ketones Ql (U) Negative Negative [facility] Lymphocytes Auto (Unsp spec) [#/Vol]Ordered By: Lindy Dubonjimi on 01-30-2024 Lymphocytes (Bld) [#/Vol] 1.06 10*3/uL 0.83-4.51 [facility] Lymphocytes/100 WBC Auto (Un sp spec)Ordered By: Lindy Dubonjimi on 01-30-2024 Lymphocytes/100 WBC (Bld) 9.3 % Low 19-41 [facility] MCV (mean corpuscular volume ) determinationOrdered By: Lindy Dubnojimi on 01-30-2024 MCV (RBC) [Entitic vol] 88.6 fL 80-94 [facility] Mean corpuscular hemoglobin (MCH) determinationOrdered By: Lindy Blanco on 01-30-2024 MCH (RBC) [Entitic mass] 31.2 pg 27.0-32.0 [facility] Mean corpuscular hemoglobin concentration (MCHC) determinationOrdered By: Remus Ungur on 01-30-2024 MCHC (RBC) [Mass/Vol] 35.2 g/dL 32-36 [facility] Mean platelet volume determi nationOrdered By: Remus Ungjimi on 01-30-2024 Platelet mean volume (Bld) [Entitic vol] 10.5 fL 6.2-12.0 [facility] Microscopic analysis of urin e for red blood cells (RBC)Ordered By: Lindy Blanco on 01-30-2024 Urine RBC 0 SEEN /hpf 0-5 [facility] Monocyte percentageOrdered B y: Lindy Ungjimi on 01-30-2024 Monocytes/100 WBC (Bld) 5.3 % 0-10 [facility] Mucus LM Ql (Urine sed)Order ed By: Rem Ungjimi on 01-30-2024 Mucus Ql (Urine sed) 0 SEEN /hpf [facility] Neutrophil percentageOrdered By: Lindy Ungjimi on 01-30-2024 Neutrophils/100 WBC (Bld) 84.3 % High 47-70 [facility] Nitrite Test strip Ql (U)Ord ered By: Lindy Blanco on 01-30-2024 Nitrite Ql (U) Negative Negative [facility] Nucleated red blood cell per centageOrdered By: Lindy Blanco on 01-30-2024 Nucleated RBC/100 WBC (Bld) [Ratio] 0 % 0-5 [facility] Platelet countOrdered By: Krystyna Blanco on 01-30-2024 Platelets (Bld) [#/Vol] 274 10*3/uL 150-450 [facility] Potassium measurementOrdered By: Lindy Blanco on 01-30-2024 Potassium [Moles/Vol] 4.7 mmol/L 3.5-5.1 [facility] Protein Test strip Ql (U)Ord ered By: Lindy Blanco on 01-30-2024 Protein Ql (U) Negative Negative [facility] RBC Auto (Bld) [#/Vol]Ordere d By: Remus Ungur on 01-30-2024 RBC (Bld) [#/Vol] 5.10 10*6/uL 4.6-6.2 [facility] Serum anion gap measurementO rdered By: Remus Ungur on 01-30-2024 Anion gap [Moles/Vol] 6 mmol/L 5-15 [facility] Serum or plasma calcium heather urement (mass/volume)Ordered By: Remus Ungjimi on 01-30-2024 Calcium [Mass/Vol] 9.0 mg/dL 8.5-10.1 [facility] Serum or plasma creatinine m easurement (mass/volume)Ordered By: Remus Ungjimi on 01-30-2024 Creatinine [Mass/Vol] 0.98 mg/dL 0.70-1.30 [facility] Comment on above: The validity of the calculated GFR & GFRAA in patients over 70 years has not been determined. Clinical correlation is essential. Serum or plasma urea nitroge n measurement (mass/volume)Ordered By: Remus Blanco on 01-30-2024 Urea nitrogen [Mass/Vol] 18 mg/dL 7-18 [facility] Sodium levelOrdered By: Remu s Ungjimi on 01-30-2024 Sodium [Moles/Vol] 133 mmol/L Low 136-145 [facility] Urinalysis, Completeon 01-29 BACTERIA 0 SEEN Normal None Seen [facility] Comment on above: Order Comment: BHARATH TER SPECIMEN Performed By: #### L 400.0001 ####[facility] [address] [place], [place], [id number] EPI,SQUAMOUS 0 SEEN Normal 0-5 [facility] Comment on above: Order Comment: BHARATH TER SPECIMEN Performed By: #### L 400.0001 ####[facility] [address] [place], [place], [id number] Mucus Ql (Urine sed) 0 SEEN Normal [facility] Comment on above: Order Comment: BHARATH TER SPECIMEN Performed By: #### L 400.0001 ####[facility] [address] [place], [address] RBC 0 SEEN Normal 0-5 [facility] Comment on above: Order Comment: BHARATH TER SPECIMEN Performed By: #### L 400.0001 ####[facility] [address] [place], [place], [address] WBC 0 SEEN Normal 0-5 [facility] Comment on above: Order Comment: BHARATH TER SPECIMEN Performed By: #### L 400.0001 ####[facility] [address] [place], [place], [id number] Urine blood detectionOrdered By: Remus Ungur on 01-30-2024 Urine Occult Blood Negative Negative [facility] Urine clarityOrdered By: Rem us Ungur on 01-30-2024 Clarity (U) Clear Clear [facility] Urine color determinationOrd ered By: Remus Ungjimi on 01-30-2024 Color (U) Yellow Yellow [facility] Urine leukocyte esterase det ection by dipstickOrdered By: Remus Bella on 01-30-2024 Leukocyte esterase Test strip Ql (U) Negative Negative [facility] Urine pHOrdered By: Remus Un gur on 01-30-2024 pH (U) 6.0 [pH] 5.0 - 8.0 [facility] Urine sediment bacteria coun t by microscopy (number/high power field)Ordered By: Remus Bella on 01-30-2024 Bacteria LM.HPF (Urine sed) [#/Area] 0 /[HPF] None Seen [facility] Urine specific gravity measu rementOrdered By: Remus Ungjimi on 01-30-2024 Specific gravity (U) [Rel density] 1.015 1.002-1.030 [facility] Urobilinogen Ql (U)Ordered B y: Remus Ungur on 01-30-2024 Urine Urobilinogen Normal mg/dl Normal [facility] White blood cell (WBC) count Ordered By: Remus Ungur on 01-30-2024 WBC (Bld) [#/Vol] 11.4 10*3/uL High 4.4-11.0 [facility] White blood cell countOrdere d By: Remus Ungur on 01-30-2024 Urine WBC 0 SEEN /hpf 0-5 [facility] CNOVon 01-21-2024 CNOV Office Visit (FAMPWS ) -- RAMONITA EL ([id number]) 1940 M NFR Date Time Provider Department 01/21/24 1:00 PM DAVE MCCRAYWS During your visit today, we recorded the following information about you: Pulse Respiration Blood pressure Weight 69/minute 16/minute 162/71 73.5 kg Dave Mccray APRN.CNP 01/21/2024 1:33 PM Signed Chief Complaint Patient presents with: ER F/U HPI Ramonita El is a 83 year old male who presents here today for ER Follow Up. Patient here for emergency room follow-up. Patient went to [facility] on 01/15 for complaints of bleeding. Patient was taking a shower at work, looked down and saw blood on his right leg. Was unsuccessful with getting blood to stop. He is on Plavix. Was evaluated in the emergency room. Found to have a pin size hole in a varicose vein. Bleeding was stopped at emergency room. After bleeding was stopped. 2 silver nitrate sticks were placed over the wound to provide chemical cauterization. Dermabond was placed over the area to ensure no bleeding. No trauma prior to this bleeding. Therefore no x-ray was completed. Minimal blood loss so no blood work was completed. Of note, patient's blood pressure was elevated at the time of visit 161/68, 145/73. He is on amlodipine as prescribed for hypertension. Has a history of cough with lisinopril. He is a smoker. Smoked about 30 minutes prior to her visits. Does not check blood pressure at home. He has a blood pressure cuff but he is unsure if it is accurate. Patient also has a history of primary insomnia. Taking tizanidine as prescribed by his PCP for sleep aid. Reviewing records, he previously was on trazodone at bedtime for insomnia many years ago. Has tried melatonin and doxepin. Patient mentions that he falls asleep at 3 PM every day. Wakes up around 1030 or 11 PM. Then has a difficult time falling back asleep. Feels hungry. Finally falls asleep but for very limited time. Frustrated that no one can help him sleep. Requesting refill of Atarax. Used for chronic anxiety. At this time, the patient states that he is no longer bleeding from his ankle. He denies hitting the area. Denies any redness, pain, swelling. Blood pressure was elevated. Taking amlodipine as prescribed. Without chest pain or shortness of breath. Past medical history, appointments, medications, allergies reviewed. EXAM: BP 162/71 Pulse 69 Resp 16 Wt 73.5 kg (162 lb) SpO2 98% BMI 25.37 kg/m? General Appearance: Well appearing, alert, in no acute distress, well-hydrated, well nourished.. Skin: Right ankle, lateral aspect, quarter sized scab present without redness, warmth. Lungs: Lungs clear to auscultation. No wheezing, rhonchi, rales.. Heart: RRR without murmur, gallop, or rubs. No ectopy. ASSESSMENT/PLAN: 1. Primary hypertension - ICD9: 401.9, ICD10: I10 (primary diagnosis) - Uncontrolled - Continue current medications - Start losartan, continue amlodipine - Recommend home blood pressure monitoring, to bring results to next visit - Encouraged sodium restriction, DASH or Mediterranean diet - Recommend regular aerobic exercise 2. Primary insomnia - ICD9: 307.42, ICD10: F51.01 -Lengthy discussion on sleep habits. Discussed with patient that he is getting 7 to 8 hours of sleep during the day which leads his sleep cycle to be off. I discussed that he should try to stay up as long as he can until a normal 8 or 9 PM and then fall asleep. Patient was not happy with that recommendation. I offered a referral to sleep medicine for further evaluation and recommendations. Patient frustrated, unsure if he was going to make sleep medicine appointment. - CONSULT TO SLEEP MEDICINE - ADULT 3. Bleeding from varicose vein - ICD9: 454.8, ICD10: I83.899 -Resolved. Offered referral to vascular medicine but he declined. 4. Chronic anxiety - ICD9: 300.00, ICD10: F41.9 -Chronic, refilled - HYDROXYZINE HCL 25 MG TABLET Dave Mccray APRN.FRETTED INSTRUMENT REPAIRER RTO in 1 months, sooner if needed. This note was partly generated using [employer] voice recognition dictation and may contain some misspelled or inaccurate words missed on review. Allergies As of Date: 01/21/2024 Noted Allergy Reaction DUST MITES 12/13/2006 LIPITOR (ATORVASTATIN) 12/04/2007 Comments: myalgia LISINOPRIL 12/04/2007 Comments: cough PENICILLINS 10/14/2004 4 - Hives PLETAL (CILOSTAZOL) 09/04/2019 14 - Other: See Comments Comments: chest pain PRAVASTATIN 05/10/2015 17 - Myalgia Date Reviewed: 01/21/2024 Reviewed by: Danae Alves LPN - Fully Assessed Reason for Visit: ER F/U [41] Primary Visit Diagnosis:Primary hypertension [I10] Other Visit Diagnoses:Primary insomnia [F51.01] Bleeding from varicose vein [I83.899] Chronic anxiety [F41.9] Order(s):hydrOXYzine HCl (ATARAX) 25 mg tabletTake 1 tablet by mouth every 8 hours as needed for anxiet (more content not included)... Normal [facility] Emergency Department Summary on 01-16-2024 Emergency Department Summary [facility] Medical Records Department [address] [place] [address] Emergency Department Summary 01/16/24 MR#: [id number] Acct: [id number] Name: RAMONITA EL Rep #: [id number] : 1940 83 From: Toribio Yeh DO PCP: RAYO Pillai Status:DEP ER Location: ED HPI History of Present Illness Chief Complaint: Wound Informant: patient and EMS Narrative Narrative: Patient is an 83-year-old male with past medical history of hypertension and CAD. He is on Plavix secondary to this. He states that he has difficulty sleeping and this morning was in the shower when he looked down and saw bleeding from his right leg. He states that he try to get the bleeding to stop but was unsuccessful as he did not know what else to do called EMS. EMS states when they arrived he was awake and alert and hypertensive but overall stable however based on the persistent bleeding he was brought in for evaluation Patient denies any injury prior to the bleeding starting. 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) Encounter for pre-operative cardiovascular clearance Hypertrophy of prostate with urinary obstruction 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 Chronic pancreatitis Atherosclerosis of coronary artery without angina pectoris Essential hypertension Alcoholism Home Medications ???Medication ???Instructions ???Recorded ???Last Taken ???Type amlodipine 10 mg tablet 10 mg PO DAILY 05/02/16 12/08/20 04:00 History clopidogrel 75 mg tablet 75 mg PO DAILY 05/02/16 11/30/20 History tamsulosin 0.4 mg capsule (Flomax) 0.4 mg PO DAILY 05/02/16 12/07/20 History hydroxyzine HCl 25 mg tablet 25 mg PO DAILY PRN rash 11/09/20 Unknown History metoprolol tartrate 100 mg tablet 100 mg PO BID 11/09/20 12/08/20 04:00 History pantoprazole 20 mg tablet,delayed 20 mg PO DAILY 11/09/20 12/07/20 History release (Protonix) ibuprofen 600 mg tablet 600 mg PO Q6H PRN pain #20 tabs 12/08/20 Unknown Rx Allergy/AdvReac Type Severity Reaction Status Date / Time Penicillins Allergy Hives Verified 01/16/24 04:02 Surgical History History of angioplasty of peripheral vessel (09/28/09) History of coronary artery stent placement (08/10/06) Social History Smoking Status: Heavy Smoker (>10/day) ROS ROS ED Constitutional Constitutional ED: Denies chills or fever(s) ENT ENT ED: Denies sore throat Cardiovascular Cardiovascular: Reports other Details: Negative syncope ; Denies chest pain Respiratory/Chest Respiratory/Chest: Denies cough or dyspnea Gastrointestinal Gastrointestinal: Denies abdominal pain, diarrhea, nausea or vomiting Musculoskeletal Musculoskeletal: Reports other Details: Positive bleeding right ankle Integumentary Denies rash Neurologic Neurologic: Denies headache(s) Hematologic/Lymphatic Hematologic/Lymphatic: Reports easy bleeding and easy bruising EXAM Physical Exam Const Vital Signs: 01/16/24 03:56 01/16/24 04:46 Temperature 97.8 F 98.2 F Temperature Source Oral Pulse Rate 110 H 90 Respiratory Rate 15 18 Blood Pressure 161/68 H 145/73 H Blood Pressure Mean 99 97 Pulse Ox 99 96 Positive well nourished and well developed General Appearance ED: well developed HEENT HEENT Narrative: Normocephalic atraumatic Eyes PERRL and EOMs intact bilaterally General Eye ED: Negative for pale conjunctiva Neck supple Resp normal respiratory effort and clear to auscultation bilaterally Cardio regular rhythm Rate: tachycardic and other Other Details: Slightly tachycardic rate with regular rhythm Extremity Extremity Narrative: Patient has varicose veins bilaterally. There is a pinpoint rupture of a varicose vein along the medial aspect of the right ankle with minimal ooze of blood. No surrounding secondary findings to suggest infection. No changes to suggest long bone injury Neuro oriented x3, CN's II-XII intact bilaterally and no sensory deficits noted Sensorium / Orientation: alert Motor Exam: strength 5/5 throughout Psych mental status grossly normal Skin Skin Narrative: Varicose veins bilaterally with small varicose vein puncture/bleeding to the right ankle MDM MDM MDM Narrative Medical decision making narrative: Patient arrived to ER hypertensive but has a past medical history of this. He reported (more content not included)... Normal [facility] CNOVon 01-02-2024 CNOV Office Visit (GENSWS ) -- RAMONITA EL ([id number]) 1940 M NFR Date Time Provider Department 01/02/24 11:00 AM LISSETTE, TOMEKA GENSWS During your visit today, we recorded the following information about you: Pulse Blood pressure Weight 65/minute 170/73 72.5 kg Tomeka Mclaughlin APRN.CNP 01/02/2024 11:02 AM Signed FOLLOW UP VISIT - ENDOSCOPY Ramonita El 1940 [id number] REFERRING PHYSICIAN: Star Grande [address] [facility] [address] Ramonita El is a patient I am following for + iFOBT. Dr. Grande performed upper AND lower endoscopy on 12/26/23. The patient was found to have EGD Impression: - Normal examined jejunum. - Duodenitis, characterized by congestion (edema), erosions, erythema and shallow ulcerations. Biopsied. - Gastritis, characterized by erythema. Biopsied. - Small hiatal hernia. - Normal esophagus. COLONOSCOPY Impression: - Preparation of the colon was fair. - Diverticulosis in the left colon. - Three small (4-6 mm) polyps in the ascending colon and in the cecum, removed with a cold biopsy forceps. Resected and retrieved. Clip (MR conditional) was placed. - One 13 mm polyp in the sigmoid colon, removed with a hot snare. Resected and retrieved. Clip (MR conditional) was placed. - The examination was otherwise normal on direct and retroflexion views. Pathology demonstrated: FINAL DIAGNOSIS A. Duodenum, biopsy: - Duodenal mucosa with no significant pathologic changes. B. Stomach, biopsy: - Antral mucosa with minimal chronic inflammation. - No evidence of H. pylori. C. Cecum, polypectomy: - Tubular adenoma. D. Ascending colon, polypectomy: - Fragments of tubular adenoma. E. Sigmoid, polypectomy: - Tubular adenoma. The patient notes no complaints since the procedure. Ramonita admits to smoking and eating a large amount of ice cream. He does refer that he gets gassy from this. VITALS: There were no vitals taken for this visit. General: patient is alert, cooperative, pleasant and in no acute distress On examination, the abdomen is benign. Assessment ASSESSMENT/PLAN: 1. Duodenitis without bleeding - ICD9: 535.60, ICD10: K29.80 (primary diagnosis) - Continue Protonix 20mg daily - Avoid NSAIDs, smoking AND alcohol 2. Multiple adenomatous polyps - ICD9: 229.9, ICD10: D36.9 The operative findings and pathology report were reviewed with the patient, and the patient has had the opportunity to ask questions and have questions answered. If the patient notes any problems or changes in bowel function, the patient should contact me immediately. Otherwise I recommend follow up colonoscopy in 3 years. HM updated and recall letter generated. Discussed treatment plan and patient voices understanding. Patient's questions answered appropriately. Medications and potential side effects were discussed and patient voices understanding. Return to the office as scheduled or as needed for worsening/no improvement. _ Tomeka Mclaughlin APRN.FRETTED INSTRUMENT REPAIRER Referring Provider: STAR GRANDE [[id number]] Allergies As of Date: 01/02/2024 Noted Allergy Reaction DUST MITES 12/13/2006 LIPITOR (ATORVASTATIN) 12/04/2007 Comments: myalgia LISINOPRIL 12/04/2007 Comments: cough PENICILLINS 10/14/2004 4 - Hives PLETAL (CILOSTAZOL) 09/04/2019 14 - Other: See Comments Comments: chest pain PRAVASTATIN 05/10/2015 17 - Myalgia Date Reviewed: 01/02/2024 Reviewed by: Kathy Rushing MA - Fully Assessed Reason for Visit: Follow Up [171] Primary Visit Diagnosis:Duodenitis without bleeding [K29.80] Other Visit Diagnosis:Multiple adenomatous polyps [D36.9] Prescriptions as of 01/02/2024 - metoprolol tartrate, short acting, (LOPRESSOR) 100 mg tablet Take 1 tablet by mouth two times a day. - tiZANidine (ZANAFLEX) 4 mg tablet Take 0.5-1 tablets by mouth at bedtime as needed (muscle spasms/insomnia). - amLODIPine (NORVASC) 10 mg tablet Take 1 tablet by mouth once daily. - clopidogrel (PLAVIX) 75 mg tablet Take 1 tablet by mouth once daily. - tamsulosin (FLOMAX) 0.4 mg Take 1 capsule by mouth once daily. - pantoprazole DR (PROTONIX) 20 mg tablet TAKE 1 TABLET BY MOUTH 1/2 HOUR BEFORE BREAKFAST ON AN EMPTY STOMACH ONCE DAILY - timolol maleate (TIMOPTIC) 0.5 % ophthalmic solution - latanoprost (XALATAN) 0.005 % ophthalmic solution - hydrOXYzine HCl (ATARAX) 25 mg tablet Take 1 tablet by mouth every 8 hours as needed for anxiety. Problem List As Of Date 01/02/2024 Noted Resolved Essential hypertension, benign [I10] 12/10/2006 Coronary atherosclerosis [I25.10] 12/10/2006 BPH with obstruction/lower urinary tract sympto*08/15/2007 Carotid artery bruit [R09.89] 11/20/2008 10/18/2011 Allergic Rhinitis [J30.9] 05/26/2009 S/P coronary artery stent placement [Z95.5] 08/10/2006 Hyperlipidemia LDL Goal <70 [E78.5] 08/17/2009 Sinus con (more content not included)... Normal [facility] [id number] 12-26-2023 [id number] HNO ID: [id number] Author: DARCY BENNETT RN Service: ? Author Type: Registered Nurse Type: [id number] Filed: 12/26/2023 12:54 Note Text: The patient received a copy of Colonoscopy discharge instructions that contain information for how to contact the physician who performed the procedure and when to seek medical care. Normal [facility] Colonoscopyon 12-26-2023 Colonoscopy [place] [facility] Gastrointestinal Endoscopy Patient Name: Ramonita El Procedure Date: 12/26/2023 11:39 AM Date of : 1940 Admit Type: Outpatient Age: 83 Gender: Male Note Status: Finalized Procedure: Colonoscopy Indications: Heme positive stool Providers: Star Grande MD Patient Profile: This is an 83 year old male. Refer to note in patient chart for documentation of history and physical. Last Colonoscopy: date unknown. Unable to locate last colonoscopy report. Referring Physician: Tomeka Mclaughlin (Referring ) Medicines: See the other procedure note for documentation of the administered medications Complications: No immediate complications. Requesting Provider: Procedure: Pre-Anesthesia Assessment: - Prior to the procedure, a History and Physical was performed, and patient medications and allergies were reviewed. The patient is competent. The risks and benefits of the procedure and the sedation options and risks were discussed with the patient. All questions were answered and informed consent was obtained. Patient identification and proposed procedure were verified by the physician and the nurse in the procedure room. Mental Status Examination: alert and oriented. Respiratory Examination: clear to auscultation. Prophylactic Antibiotics: The patient does not require prophylactic antibiotics. Prior Anticoagulants: The patient has taken Plavix (clopidogrel), last dose was 2 days prior to procedure. ASA Grade Assessment: III - A patient with severe systemic disease. After reviewing the risks and benefits, the patient was deemed in satisfactory condition to undergo the procedure. The anesthesia plan was to use moderate sedation / analgesia (conscious sedation). Immediately prior to administration of medications, the patient was re-assessed for adequacy to receive sedatives. The heart rate, respiratory rate, oxygen saturations, blood pressure, adequacy of pulmonary ventilation, and response to care were monitored throughout the procedure. The physical status of the patient was re-assessed after the procedure. After I obtained informed consent, the scope was passed under direct vision. Throughout the procedure, the patient's blood pressure, pulse, and oxygen saturations were monitored continuously. The Colonoscope was introduced through the anus and advanced to the cecum, identified by the appendiceal orifice, ileocecal valve and palpation. The colonoscopy was performed without difficulty. The patient tolerated the procedure well. The quality of the bowel preparation was fair. The ileocecal valve, appendiceal orifice, and rectum were photographed. Moderate Sedation: Moderate (conscious) sedation was personally administered by the endoscopist. The following parameters were monitored: oxygen saturation, heart rate, blood pressure, and response to care. Total physician intraservice time was 29 minutes. The administration of moderate sedation was initiated at 11:55. Findings: The perianal and digital rectal examinations were normal. Many medium-mouthed diverticula were found in the left colon. Three sessile polyps were found in the ascending colon and cecum. The polyps were small (4-6 mm) in size. These polyps were removed with a cold biopsy forceps. Resection and retrieval were complete. To prevent bleeding after the polypectomy, one hemostatic clip was successfully placed (MR conditional). There was no bleeding at the end of the procedure. A 13 mm polyp was found in the sigmoid colon. The polyp was semi-pedunculated. The polyp was removed with a hot snare. Resection and retrieval were complete. To prevent bleeding after the polypectomy, one hemostatic clip was successfully placed (MR conditional). There was no bleeding at the end of the procedure. The exam was otherwise without abnormality on direct and retroflexion views. Impression: - Preparation of the colon was fair. - Diverticulosis in the left colon. - Three small (4-6 mm) polyps in the ascending colon and in the cecum, removed with a cold biopsy forceps. Resected and retrieved. Clip (MR conditional) was placed. - One 13 mm polyp in the sigmoid colon, removed with a hot snare. Resected and retrieved. Clip (MR conditional) was placed. - The examination was otherwise normal on direct and retroflexion views. Recommendation: - Discharge patient to home. - Resume previous diet. - Continue present medications. - Repeat colonoscopy in 3 years for surveillance based on pathology results. - Return to nurse practitioner in 1 week. - Resume Plavix (clopidogrel) today at prior dose. - Patient has a contact number available for emergencies. The signs and symptoms of potential delayed complications were discussed with the patient. Return to normal activities tomorrow. Written discharge instructions were provided to the patient. Proce (more content not included)... Normal [facility] EGD Study observation Hans washburn 12-26-2023 [facility] Gastrointestinal Endoscopy Patient Name: Ramonita El Procedure Date: 12/26/2023 11:43 AM Date of : 1940 Admit Type: Outpatient Age: 83 Gender: Male Note Status: Finalized Procedure: Upper GI endoscopy Indications: Heme positive stool Providers: Star Grande MD Patient Profile: This is an 83 year old male. Refer to note in patient chart for documentation of history and physical. Referring Physician: Tomeka Mclaughlin (Referring MD) Medicines: Midazolam 4 mg IV, Fentanyl 100 micrograms IV Complications: No immediate complications. Requesting Provider: Procedure: Pre-Anesthesia Assessment: - Prior to the procedure, a History and Physical was performed, and patient medications and allergies were reviewed. The patient is competent. The risks and benefits of the procedure and the sedation options and risks were discussed with the patient. All questions were answered and informed consent was obtained. Patient identification and proposed procedure were verified by the physician and the nurse in the procedure room. CV Examination: normal. Prophylactic Antibiotics: The patient does not require prophylactic antibiotics. Prior Anticoagulants: The patient has taken Plavix (clopidogrel), last dose was 2 days prior to procedure. ASA Grade Assessment: III - A patient with severe systemic disease. After reviewing the risks and benefits, the patient was deemed in satisfactory condition to undergo the procedure. The anesthesia plan was to use moderate sedation / analgesia (conscious sedation). Immediately prior to administration of medications, the patient was re-assessed for adequacy to receive sedatives. The heart rate, respiratory rate, oxygen saturations, blood pressure, adequacy of pulmonary ventilation, and response to care were monitored throughout the procedure. The physical status of the patient was re-assessed after the procedure. After obtaining informed consent, the endoscope was passed under direct vision. Throughout the procedure, the patient's blood pressure, pulse, and oxygen saturations were monitored continuously. The Endoscope was introduced through the mouth, and advanced to the jejunum. The upper GI endoscopy was accomplished without difficulty. The patient tolerated the procedure well. Moderate Sedation: Moderate (conscious) sedation was personally administered by the endoscopist. The following parameters were monitored: oxygen saturation, heart rate, blood pressure, and response to care. Total physician intraservice time was 29 minutes. The administration of moderate sedation was initiated at 11:50. Findings: The examined jejunum was normal. Localized mild inflammation characterized by congestion (edema), erosions, erythema and shallow ulcerations was found in the duodenal bulb. Biopsies were taken with a cold forceps for histology. Scattered minimal inflammation characterized by erythema was found in the entire examined stomach. Biopsies were taken with a cold forceps for histology. A small hiatal hernia was present. The examined esophagus was normal. Impression: - Normal examined jejunum. - Duodenitis, characterized by congestion (edema), erosions, erythema and shallow ulcerations. Biopsied. - Gastritis, characterized by erythema. Biopsied. - Small hiatal hernia. - Normal esophagus. Recommendation: - Discharge patient to home. - Resume previous diet. - Continue present medications. - Return to nurse practitioner in 1 week. Procedure Code(s): --- Professional --- 16852, Esophagogastroduodenoscopy , flexible, transoral; with biopsy, single or multiple [id number], Moderate sedation services provided by the (more content not included)... PROVATION [facility] Flexible sigmoidoscopy study on 12-26-2023 [facility] Gastrointestinal Endoscopy Patient Name: Ramonita El Procedure Date: 12/26/2023 11:39 AM Date of : 1940 Admit Type: Outpatient Age: 83 Gender: Male Note Status: Finalized Procedure: Colonoscopy Indications: Heme positive stool Providers: Star Grande MD Patient Profile: This is an 83 year old male. Refer to note in patient chart for documentation of history and physical. Last Colonoscopy: date unknown. Unable to locate last colonoscopy report. Referring Physician: Tomeka Mclaughlin (Referring MD) Medicines: See the other procedure note for documentation of the administered medications Complications: No immediate complications. Requesting Provider: Procedure: Pre-Anesthesia Assessment: - Prior to the procedure, a History and Physical was performed, and patient medications and allergies were reviewed. The patient is competent. The risks and benefits of the procedure and the sedation options and risks were discussed with the patient. All questions were answered and informed consent was obtained. Patient identification and proposed procedure were verified by the physician and the nurse in the procedure room. Mental Status Examination: alert and oriented. Respiratory Examination: clear to auscultation. Prophylactic Antibiotics: The patient does not require prophylactic antibiotics. Prior Anticoagulants: The patient has taken Plavix (clopidogrel), last dose was 2 days prior to procedure. ASA Grade Assessment: III - A patient with severe systemic disease. After reviewing the risks and benefits, the patient was deemed in satisfactory condition to undergo the procedure. The anesthesia plan was to use moderate sedation / analgesia (conscious sedation). Immediately prior to administration of medications, the patient was re-assessed for adequacy to receive sedatives. The heart rate, respiratory rate, oxygen saturations, blood pressure, adequacy of pulmonary ventilation, and response to care were monitored throughout the procedure. The physical status of the patient was re-assessed after the procedure. After I obtained informed consent, the scope was passed under direct vision. Throughout the procedure, the patient's blood pressure, pulse, and oxygen saturations were monitored continuously. The Colonoscope was introduced through the anus and advanced to the cecum, identified by the appendiceal orifice, ileocecal valve and palpation. The colonoscopy was performed without difficulty. The patient tolerated the procedure well. The quality of the bowel preparation was fair. The ileocecal valve, appendiceal orifice, and rectum were photographed. Moderate Sedation: Moderate (conscious) sedation was personally administered by the endoscopist. The following parameters were monitored: oxygen saturation, heart rate, blood pressure, and response to care. Total physician intraservice time was 29 minutes. The administration of moderate sedation was initiated at 11:55. Findings: The perianal and digital rectal examinations were normal. Many medium-mouthed diverticula were found in the left colon. Three sessile polyps were found in the ascending colon and cecum. The polyps were small (4-6 mm) in size. These polyps were removed with a cold biopsy forceps. Resection and retrieval were complete. To prevent bleeding after the polypectomy, one hemostatic clip was successfully placed (MR conditional). There was no bleeding at the end of the procedure. A 13 mm polyp was found in the sigmoid colon. The polyp was semi-pedunculated. The polyp was removed with a hot snare. Resection and retrieval were complete. To prevent bleeding after the polypectomy, one hemostatic clip was successfully placed (MR conditional). There was no bleeding at the end of t (more content not included)... [facility]ATION [facility] HISTORY PHYSICALon HISTORY PHYSICAL HNO ID: [id number] Author: STAR GRANDE MD Service: General Surgery Author Type: Physician Type: H&P Filed: 12/26/2023 10:36 Note Text: HISTORY AND PHYSICAL Ramonita El : 1940 REFERRING PHYSICIAN: Danae Fuentes [address] [facility] [address] CHIEF COMPLAINT: No chief complaint on file. HPI: Ramonita is a 83 year old male referred for endoscopy. Ramonita notes +iFOBT. Ramonita denies abdominal pain.. Ramonita denies diarrhea. Ramonita denies constipation. Ramonita denies a change in bowel habits. Ramonita notes melena. Refers stools have been black and soft for the last 2-3 weeks. Ramonita denies bright red blood per rectum. Ramonita denies hemorrhoids. Ramonita notes a distant history of heartburn. Symptoms are well controlled with Protonix 20mg Ramonita denies dysphagia. Ramonita denies a history of ulcers/ peptic ulcer disease. Ramonita denies family history of colon issues. Ramonita has a hx of CAD with stents 2006. Last stress test 2020. EF of 60%. Doesn't follow with cardiology. Takes plavix. Denies CP, SOB, dizziness, palpitations, syncope, edema, recent hospitalizations Ramonita has undergone prior endoscopy. Last colonoscopy AND EGD 06/2015 at [facility] with Dr. Lezama. Sedation: Fentanyl 50 micrograms IV, Midazolam 5 mg IV, Diphenhydramine 50 mg IV EGD Impression: - Reflux esophagitis. Biopsied. - Normal stomach. Biopsied. - Normal examined duodenum COLONOSCOPY Impression: - Diverticulosis in the sigmoid colon and in the descending colon. - One 13 mm polyp in the descending colon. Resected and retrieved. Clips were placed. - One 6 mm polyp in the ascending colon. Resected and retrieved. CONVERTED FINAL DIAGNOSIS 1. Stomach, biopsy (A) - Oxyntic mucosa with chronic active gastritis with Helicobacter pylori organisms. 2. Distal esophagus, biopsy (B) - Ulcer. - Gastric-type mucosa with chronic inflammation and foveolar hyperplasia. - Squamous mucosa with regenerative epithelial changes. - Negative for intestinal metaplasia or dysplasia. 3. Ascending colon, biopsy (C) - Fragments of tubular adenoma. 4. Descending colon, biopsy (D) - Tubular adenoma. [facility]/06/22/15 CURRENT MEDICATIONS Current Outpatient Medications Medication Sig metoprolol tartrate, short acting, (LOPRESSOR) 100 mg tablet Take 1 tablet by mouth two times a day. tiZANidine (ZANAFLEX) 4 mg tablet Take 0.5-1 tablets by mouth at bedtime as needed (muscle spasms/insomnia). amLODIPine (NORVASC) 10 mg tablet Take 1 tablet by mouth once daily. clopidogrel (PLAVIX) 75 mg tablet Take 1 tablet by mouth once daily. tamsulosin (FLOMAX) 0.4 mg Take 1 capsule by mouth once daily. pantoprazole DR (PROTONIX) 20 mg tablet TAKE 1 TABLET BY MOUTH 1/2 HOUR BEFORE BREAKFAST ON AN EMPTY STOMACH ONCE DAILY timolol maleate (TIMOPTIC) 0.5 % ophthalmic solution latanoprost (XALATAN) 0.005 % ophthalmic solution hydrOXYzine HCl (ATARAX) 25 mg tablet Take 1 tablet by mouth every 8 hours as needed for anxiety. No current facility-administered medications for this visit. 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 cruciate tear, poss. 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 PMH - PAST MEDICAL HISTORY OF 1981 laceration wrist, suicidal gesture Radius fracture 06/21/2013 See scanned documents [facility] Tobacco abuse 05/22/2013 Urinary calculus, unspecified 01/05 Renal stone right side; 3 episodes with stones altogether with extraction in 1960 PAST SURGICAL HISTORY PAST SURGICAL HISTORY Procedure Laterality Date ATHERECTOMY, FEMORAL-POPLITEAL 09/28/2009 right COLONOSCOPY FLX DX W/COLLJ SPEC WHEN PFRMD 06/21/2015 Colonoscopy CORONARY ENDARTERCOMY OPEN ANY METHOD 08/10/2006 Angioplasty with stent ECHOCARDIOGRAM 11/24/2020 11/25/[address] Puentes: LV size and LVSF WNL, EF 55%, structurally normal valves ESOPHAGOGASTRODUODENOSCOPY TRANSORAL DIAGNOSTIC 06/21/2015 EGD PAST SURGICAL HISTORY OF 04/05/1999 Cautery and outfracture of inferior turbinates. Removal fx fragment PAST SURGICAL HISTORY OF 1960 renal stone extraction: PAST SURGICAL HISTORY OF dental extraction PICC LINE INSERT/CONSULT 04/11/2016 SLCTV CATHJ 3RD+ ORD SLCTV ABDL PEL/LXTR BRNCH 09/28/2009 VASECTOMY UNI/BI SPX W/POSTOP SE (more content not included)... Normal [facility] NURSING PROGon 12-26-2023 NURSING PROG HNO ID: [id number] Author: DARCY BENNETT RN Service: ? Author Type: Registered Nurse Type: Nursing Progress Note Filed: 12/26/2023 12:50 Note Text: Patient received in phase II via cart in left lateral position, eyes closed but open to verbal stimuli, skin warm and dry, respirations regular and unlabored, alert to self and event, abdomen soft and non distended, denies cramping or nausea. Resting on left side. No family present. Normal [facility] No Panel Informationon 12-25 Radiology Study observation (narrative) [facility] SURGICAL PATHOLOGYon 024 CASE REPORT Normal [facility] Comment on above: Order Comment: Speci men Type: TISSUE SPECIMEN Ordering Facility: [facility] Address: [address] [place] [address] Result Comment: [facility] Pathology Report Case: [id number] Authorizing Provider: Star Grande MD Collected: 12/26/2023 11:55 AM Ordering Location: Ambulatory Surgery Received: 12/26/2023 02:50 PM Pathologist: Brandon Solis MD Specimens: A) - Small Bowel, Duodenum, Biopsy B) - Stomach, Antrum, Biopsy, Antral for H/H C) - Colon, Cecum, Polyp D) - Colon, Ascending Polyp, polyps x2 E) - Colon, Sigmoid, Polyp Performed By: #### S #### [facility] CLIA [id number] [address] [place] [address] LAB CLIA [id number] [address] [place] [address] FINAL DIAGNOSIS Normal [facility] Comment on above: Order Comment: Speci men Type: TISSUE SPECIMEN Ordering Facility: [facility] Address: [address] [place] [address] Result Comment: A. D uodenum, biopsy: - Duodenal mucosa with no significant pathologic changes. B. Stomach, biopsy: - Antral mucosa with minimal chronic inflammation. - No evidence of H. pylori. C. Cecum, polypectomy: - Tubular adenoma. D. Ascending colon, polypectomy: - Fragments of tubular adenoma. E. Sigmoid, polypectomy: - Tubular adenoma. Performed By: #### S #### [facility] CLIA [id number] [address] [place] [address] OF [facility] CLIA [id number] [address] [place] [address] FINAL PERFORMING LAB Normal [facility] Comment on above: Order Comment: Speci men Type: TISSUE SPECIMEN Ordering Facility: [facility] Address: [address] [place] [address] Result Comment: Diag nostic interpretation performed at [facility], [address] [place] [address] CLIA# [id number] Gymnastic Teacher: Ca Barber M.D. Performed By: #### S #### [facility] [place] [id number] [address] [place] [address] [place] [facility] CLIA [id number] [address] [place] [address] [place] GROSS [facility] Normal [facility] Comment on above: Order Comment: Speci men Type: TISSUE SPECIMEN Ordering Facility: [facility] Address: [address] [place] [address] Result Comment: A. S mall Bowel, Duodenum, Biopsy Received in formalin is one piece of mcknight, soft tissue measuring 0.4 x 0.2 x 0.2 cm. Totally submitted in one cassette. B. Stomach, Antrum, Biopsy Received in formalin is one piece of mcknight, soft tissue measuring 0.4 x 0.3 x 0.1 cm. Totally submitted in one cassette. C. Colon, Cecum, Polyp Received in formalin is one piece of mcknight, soft tissue measuring 0.8 x 0.3 x 0.1 cm. Totally submitted in one cassette. D. Colon, Ascending Polyp Received in formalin are multiple pieces of mcknight, soft tissue aggregating to 1.8 x 0.2 x 0.1 cm. Totally submitted in one cassette. December 26, 2023 9:23 PM Gross examination performed at [facility], [address] [place] [address] E. Colon, Sigmoid, Polyp Received in formalin is one segment of red-brown polypoid tissue measuring 1.3 x 0.7 x 0.6 cm. No stalk is present. The line of resection is noted. The specimen is bisected and totally submitted in one cassette. Gross examination performed at [facility], [address] [place] [address] December 26, 2023 9:19 PM Performed By: #### S #### [facility] [place] [id number] [address] [place] [address] [place] [facility] CLIA [id number] [address] [place] [address] [place] Upper GI endoscopyon 11--2 024 Upper GI endoscopy [facility] Gastrointestinal Endoscopy Patient Name: Ramonita El Procedure Date: 12/26/2023 11:43 AM Date of : 1940 Admit Type: Outpatient Age: 83 Gender: Male Note Status: Finalized Procedure: Upper GI endoscopy Indications: Heme positive stool Providers: Star Grande MD Patient Profile: This is an 83 year old male. Refer to note in patient chart for documentation of history and physical. Referring Physician: Tomeka Mclaughlin (Referring MD) Medicines: Midazolam 4 mg IV, Fentanyl 100 micrograms IV Complications: No immediate complications. Requesting Provider: Procedure: Pre-Anesthesia Assessment: - Prior to the procedure, a History and Physical was performed, and patient medications and allergies were reviewed. The patient is competent. The risks and benefits of the procedure and the sedation options and risks were discussed with the patient. All questions were answered and informed consent was obtained. Patient identification and proposed procedure were verified by the physician and the nurse in the procedure room. CV Examination: normal. Prophylactic Antibiotics: The patient does not require prophylactic antibiotics. Prior Anticoagulants: The patient has taken Plavix (clopidogrel), last dose was 2 days prior to procedure. ASA Grade Assessment: III - A patient with severe systemic disease. After reviewing the risks and benefits, the patient was deemed in satisfactory condition to undergo the procedure. The anesthesia plan was to use moderate sedation / analgesia (conscious sedation). Immediately prior to administration of medications, the patient was re-assessed for adequacy to receive sedatives. The heart rate, respiratory rate, oxygen saturations, blood pressure, adequacy of pulmonary ventilation, and response to care were monitored throughout the procedure. The physical status of the patient was re-assessed after the procedure. After obtaining informed consent, the endoscope was passed under direct vision. Throughout the procedure, the patient's blood pressure, pulse, and oxygen saturations were monitored continuously. The Endoscope was introduced through the mouth, and advanced to the jejunum. The upper GI endoscopy was accomplished without difficulty. The patient tolerated the procedure well. Moderate Sedation: Moderate (conscious) sedation was personally administered by the endoscopist. The following parameters were monitored: oxygen saturation, heart rate, blood pressure, and response to care. Total physician intraservice time was 29 minutes. The administration of moderate sedation was initiated at 11:50. Findings: The examined jejunum was normal. Localized mild inflammation characterized by congestion (edema), erosions, erythema and shallow ulcerations was found in the duodenal bulb. Biopsies were taken with a cold forceps for histology. Scattered minimal inflammation characterized by erythema was found in the entire examined stomach. Biopsies were taken with a cold forceps for histology. A small hiatal hernia was present. The examined esophagus was normal. Impression: - Normal examined jejunum. - Duodenitis, characterized by congestion (edema), erosions, erythema and shallow ulcerations. Biopsied. - Gastritis, characterized by erythema. Biopsied. - Small hiatal hernia. - Normal esophagus. Recommendation: - Discharge patient to home. - Resume previous diet. - Continue present medications. - Return to nurse practitioner in 1 week. Procedure Code(s): --- Professional --- 55177, Esophagogastroduodenoscopy , flexible, transoral; with biopsy, single or multiple G0500, Moderate sedation services provided by the same physician or other qualified health home care manager rn performing a gastrointestinal endoscopic service that sedation supports, requiring the presence of an independent trained observer to assist in the monitoring of the patient's level of consciousness and physiological status; initial 15 minutes of intra-service time; patient age 5 years or older (additional time may be reported with 74802, as appropriate) [address]756, Moderate sedation; each additional 15 minutes intraservice time CPT copyright 2020 [employer]. All rights reserved. The codes documented in this report are preliminary and upon medical biller/coder review may be revised to meet current compliance requirements. Attending Participation: I was present and participated during the entire procedure, including non-rowe portions, and during the administration and monitoring of Moderate Sedation. Scope In: 11:52:08 AM Scope Out: 11:55:14 AM MD Star Victoria MD 12/26/2023 12:25:24 PM This report has been signed electronically by Star Grande MD Number of Addenda: 0 Note Initiated On: 12/26/2023 11:43 AM Estimated Blood Loss: Estimated blood loss: none. Normal [facility] CNOVon 12-06-2023 CNOV Office Visit (GENSWS ) -- SIENNARAMONITA WHITESIDE ([id number]) 1940 NFR Date Time Provider Department 12/06/23 1:30 PM TOMEKA MCLAUGHLIN During your visit today, we recorded the following information about you: Temperature Pulse Blood pressure Weight 97.1 degrees 69/minute 152/63 74.2 kg Height 1.702 m Tomeka Mclaughlin APRN.CNP 12/06/2023 2:19 PM Signed HISTORY AND PHYSICAL Ramonita El : 1940 REFERRING PHYSICIAN: Danae Fuentes [address] [facility] [address] CHIEF COMPLAINT: No chief complaint on file. HPI: Ramonita is a 83 year old male referred for endoscopy. Ramonita notes +iFOBT. Ramonita denies abdominal pain.. Ramonita denies diarrhea. Ramonita denies constipation. Ramonita denies a change in bowel habits. Ramonita notes melena. Refers stools have been black and soft for the last 2-3 weeks. Ramonita denies bright red blood per rectum. Ramonita denies hemorrhoids. Ramonita notes a distant history of heartburn. Symptoms are well controlled with Protonix 20mg Ramonita denies dysphagia. Ramonita denies a history of ulcers/ peptic ulcer disease. Ramonita denies family history of colon issues. Ramonita has a hx of CAD with stents 2006. Last stress test 2020. EF of 60%. Doesn't follow with cardiology. Takes plavix. Denies CP, SOB, dizziness, palpitations, syncope, edema, recent hospitalizations Ramonita has undergone prior endoscopy. Last colonoscopy AND EGD 06/2015 at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 0.5 % ophthalmic solution tiZANidine (ZANAFLEX) 2 mg tablet 1/2 -1 tab at HS as needed for pain/ sleep (Patient not taking: Reported on 08/27/2023) latanoprost (XALATAN) 0.005 % ophthalmic solution metoprolol tartrate, short acting, (LOPRESSOR) 100 mg tablet Take 1 tablet by mouth twice daily. hydrOXYzine HCl (ATARAX) 25 mg tablet Take 1 tablet by mouth every 8 hours as needed for anxiety. No current facility-administered medications for this visit. FAMILY HISTORY Problem Relation Age of Onset Cancer Mother age 42 leukemia None Father father ubknown to pt. Coronary Artery Disease Brother bypass Social History Tobacco Use Smoking status: Every Day Current packs/day: 0.00 Average packs/day: 1 pack/day for 63.2 years (63.2 ttl pk-yrs) Types: Cigarettes Start date: 02/05/1959 Last attempt to quit: 04/19/2022 Years since quittin.6 Smokeless tobacco: Never Vaping Use Vaping status: Never Used Substance Use Topics Alcohol use: Yes Comment: Socially (more content not included)... Normal [facility] CBC W Auto Differential pane l (Bld)on 11-23-2023 Basophils (Bld) [#/Vol] 0.08 10*3/uL Normal <0.11 [facility] Comment on above: Order Comment: Speci men Type: BLOOD SPECIMENOrdering Facility: [facility] Address: [address] [place] [address] Performed By: #### 5 7021-8 ####[facility] LABIA [id number] [place] [address] [place] Basophils/100 WBC (Bld) 0.9 % Normal [facility] Comment on above: Order Comment: Speci men Type: BLOOD SPECIMENOrdering Facility: [facility] Address: [address] [place] [address] Performed By: #### 5 7021-8 ####[facility] LABCLIA [id number] [place] [address] [place] Differential cell count method Nom (Bld) Auto Normal [facility] Comment on above: Order Comment: Speci men Type: BLOOD SPECIMENOrdering Facility: [facility] Address: [address] [place] [address] Performed By: #### 5 7021-8 ####[facility] LABCLIA [id number] [place] [address] [place] Eosinophils (Bld) [#/Vol] 0.09 10*3/uL Normal <0.46 [facility] Comment on above: Order Comment: Speci men Type: BLOOD SPECIMENOrdering Facility: [facility] Address: [address] [place] [address] Performed By: #### 5 7021-8 ####[facility] LABCLIA [id number] [place] [address] [place] Eosinophils/100 WBC (Bld) 1.0 % Normal [facility] Comment on above: Order Comment: Speci men Type: BLOOD SPECIMENOrdering Facility: [facility] Address: [address] [place] [address] Performed By: #### 5 7021-8 ####[facility] LABCLIA [id number] [place] [address] [place] Erythrocyte distribution width (RBC) [Ratio] 13.5 % Normal 11.5-15.0 [facility] Comment on above: Order Comment: Speci men Type: BLOOD SPECIMENOrdering Facility: [facility] Address: [address] [place] [address] Performed By: #### 5 7021-8 ####[facility] LABCLIA [id number] [place] [address] [place] Hematocrit (Bld) [Volume fraction] 48.0 % Normal 39.0-51.0 [facility] Comment on above: Order Comment: Speci men Type: BLOOD SPECIMENOrdering Facility: [facility] Address: [address] [place] [address] Performed By: #### 5 7021-8 ####[facility] LABCLIA [id number] [place] [address] [place] Hemoglobin (Bld) [Mass/Vol] 16.3 g/dL Normal 13.0-17.0 [facility] Comment on above: Order Comment: Speci men Type: BLOOD SPECIMENOrdering Facility: [facility] Address: [address] [place] [address] Performed By: #### 5 7021-8 ####[facility] LABCLIA [id number] [place] [address] [place] Immature granulocytes (Bld) [#/Vol] 10*3/uL Normal <0.10 [facility] Comment on above: Order Comment: Speci men Type: BLOOD SPECIMENOrdering Facility: [facility] Address: [address] [place] [address] Performed By: #### 5 7021-8 ####[facility] LABCLIA [id number] [place] [address] [place] Immature granulocytes/100 WBC (Bld) 0.2 % Normal [facility] Comment on above: Order Comment: Speci men Type: BLOOD SPECIMENOrdering Facility: [facility] Address: [address] [place] [address] Performed By: #### 5 7021-8 ####[facility] LABCLIA [id number] [place] [address] [place] Lymphocytes (Bld) [#/Vol] 1.62 10*3/uL Normal 1.00-4.00 [facility] Comment on above: Order Comment: Speci men Type: BLOOD SPECIMENOrdering Facility: [facility] Address: [address] [place] [address] Performed By: #### 5 7021-8 ####[facility] LABCLIA [id number] [place] [address] [place] Lymphocytes/100 WBC (Bld) 17.8 % Normal [facility] Comment on above: Order Comment: Speci men Type: BLOOD SPECIMENOrdering Facility: [facility] Address: [address] [place] [address] Performed By: #### 5 7021-8 ####[facility] LABCLIA [id number] [place] [address] [place] MCH (RBC) [Entitic mass] 31.2 pg Normal 26.0-34.0 [facility] Comment on above: Order Comment: Speci men Type: BLOOD SPECIMENOrdering Facility: [facility] Address: [address] [place] [address] Performed By: #### 5 7021-8 ####[facility] LABIA [id number] [place] [address] [place] MCHC (RBC) [Mass/Vol] 34.0 g/dL Normal 30.5-36.0 [facility] Comment on above: Order Comment: Speci men Type: BLOOD SPECIMENOrdering Facility: [facility] Address: [address] [place] [address] Performed By: #### 5 7021-8 ####[facility] LABIA [id number] [place] [address] [place] MCV (RBC) [Entitic vol] 92.0 fL Normal 80.0-100.0 [facility] Comment on above: Order Comment: Speci men Type: BLOOD SPECIMENOrdering Facility: [facility] Address: [address] [place] [address] Performed By: #### 5 7021-8 ####[facility] [id number] [place] [address] [place] Monocytes (Bld) [#/Vol] 0.84 10*3/uL Normal <0.87 [facility] Comment on above: Order Comment: Speci men Type: BLOOD SPECIMENOrdering Facility: [facility] Address: [address] [place] [address] Performed By: #### 5 7021-8 ####[facility] LABIA [id number] [place] [address] [place] Monocytes/100 WBC (Bld) 9.2 % Normal [facility] Comment on above: Order Comment: Speci men Type: BLOOD SPECIMENOrdering Facility: [facility] Address: [address] [place] [address] Performed By: #### 5 7021-8 ####[facility] LABCLIA [id number] [place] [address] [place] Neutrophils (Bld) [#/Vol] 6.45 10*3/uL Normal 1.45-7.50 [facility] Comment on above: Order Comment: Speci men Type: BLOOD SPECIMENOrdering Facility: [facility] Address: [address] [place] [address] Performed By: #### 5 7021-8 ####[facility] LABIA [id number] [place] [address] [place] Neutrophils/100 WBC (Bld) 70.9 % Normal [facility] Comment on above: Order Comment: Speci men Type: BLOOD SPECIMENOrdering Facility: [facility] Address: [address] [place] [address] Performed By: #### 5 7021-8 ####[facility] LABIA [id number] [place] [address] [place] Nucleated RBC (Bld) [#/Vol] 10*3/uL Normal <0.01 [facility] Comment on above: Order Comment: Speci men Type: BLOOD SPECIMENOrdering Facility: [facility] Address: [address] [place] [address] Performed By: #### 5 7021-8 ####[facility] LABIA [id number] [place] [address] [place] Nucleated RBC/100 WBC (Bld) [Ratio] 0.0 /100 WBC Normal [facility] Comment on above: Order Comment: Speci men Type: BLOOD SPECIMENOrdering Facility: [facility] Address: [address] [place] [address] Performed By: #### 5 7021-8 ####[facility] LABCLIA [id number] [place] [id number] [place] Platelet mean volume (Bld) [Entitic vol] 11.7 fL Normal 9.0-12.7 [facility] Comment on above: Order Comment: Speci men Type: BLOOD SPECIMENOrdering Facility: [facility] Address: [address] [place] [address] Performed By: #### 5 7021-8 ####[facility] LABCLIA [id number] [place] [address] [place] Platelets (Bld) [#/Vol] 254 10*3/uL Normal 150-400 [facility] Comment on above: Order Comment: Speci men Type: BLOOD SPECIMENOrdering Facility: [facility] Address: [address] [place] [address] Performed By: #### 5 7021-8 ####[facility] LABIA [id number] [place] [address] [place] RBC (Bld) [#/Vol] 5.22 10*6/uL Normal 4.20-6.00 [facility] Comment on above: Order Comment: Speci men Type: BLOOD SPECIMENOrdering Facility: [facility] Address: [address] [place] [address] Performed By: #### 5 7021-8 ####[facility] LABIA [id number] [place] [address] [place] WBC (Bld) [#/Vol] 9.10 10*3/uL Normal 3.70-11.00 [facility] Comment on above: Order Comment: Speci men Type: BLOOD SPECIMENOrdering Facility: [facility] Address: [address] [place] [address] Performed By: #### 5 7021-8 ####[facility] LABIA [id number] [place] [address] [place] CNOVon 08-05-2024 CNOV Office Visit (ORTHWS ) -- SIENNARAMONITA WHITESIDE ([id number]) 1940 M NFR Date Time Provider Department 09/10/23 4:15 PM NILESH MAYS During your visit today, we recorded the following information about you: Nilesh Mays MD 10/10/2023 8:33 PM Signed Patient presents with: Left Ring Finger - Established Patient Aponeurotomy left 4th finger Patient denies any pain today. We were planning to try a needle procedure for his finger, however he was not able to tolerated even getting the lidocaine, thus there is no way to accomplish this while the patient is awake. If he would like his finger/hand taken care of, it would have to be surgical and he does not want to do that at this time. 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 - latanoprost (XALATAN) 0.005 % ophthalmic solution - metoprolol tartrate, short acting, (LOPRESSOR) 100 mg tablet Take 1 tablet by mouth twice daily. - amLODIPine (NORVASC) 10 mg tablet Take 1 tablet by mouth once daily. - clopidogrel (PLAVIX) 75 mg tablet Take 1 tablet by mouth once daily. - hydrOXYzine HCl (ATARAX) 25 mg tablet Take 1 tablet by mouth every 8 hours as needed for anxiety. Problem List As Of Date 09/10/2023 Noted Resolved Essential hypertension, benign [I10] 12/10/2006 Coronary atherosclerosis [I25.10] 12/10/2006 BPH with obstruction/lower urinary tract sympto*08/15/2007 Carotid artery bruit [R09.89] 11/20/2008 10/18/2011 Allergic Rhinitis [J30.9] 05/26/2009 S/P coronary artery stent placement [Z95.5] 08/10/2006 Hyperlipidemia LDL Goal <70 [E78.5] 08/17/2009 Sinus congestion [R09.81] 12/12/2011 2016 Dupuytren's contracture of left hand [M72.0] 01/25/2012 09/06/2017 Tobacco abuse [Z72.0] 05/22/2013 Alcohol abuse [F10.10] 05/22/2013 UTI (lower urinary tract infection) [N39.0] 09/23/2013 2014 BPH (benign prostatic hyperplasia) [N40.0] 09/23/2013 2016 Guaiac positive stools [R19.5] 05/07/2015 03/17/2016 Occult blood in stools [R19.5] 05/10/2015 03/17/2016 Gastroesophageal reflux disease [K21.9] 05/10/2015 Poor sleep [Z72.820] 05/10/2015 Depression [F32.A] 05/10/2015 03/30/2017 Peripheral arterial disease (HCC) [I73.9] 03/01/2016 Acute blood loss anemia [D62] 03/02/2016 09/06/2017 Hypoxemia [R09.02] 03/05/2016 03/17/2016 Pneumonia [J18.9] 03/05/2016 03/17/2016 Disorder of lymphatic vessel [I89.9] 04/04/2016 Malnutrition of mild degree (HCC) [E44.1] 04/11/2016 03/30/2017 Hypertension [I10] 09/06/2017 Nicotine dependence [F17.200] 09/06/2017 Stented coronary artery [Z95.5] 09/06/2017 Chronic anxiety [F41.9] 10/22/2017 Psoriasis (a type of skin inflammation) [L40.9] 08/15/2018 Calcium oxalate stones [N20.0] 06/27/2019 Proteinuria [R80.9] 06/27/2019 Microscopic hematuria [R31.29] 06/27/2019 Elevated PSA [R97.20] 03/09/2020 History of endarterectomy [Z98.890] 09/23/2020 Chronic interstitial lung disease (HCC) [J84.9] 09/23/2020 Pancreatic calcification [K86.89] 10/03/2020 Diverticulosis of colon [K57.30] 10/03/2020 Adrenal adenoma, left [D35.02] 10/03/2020 Bladder stone [N21.0] 10/03/2020 Renal calculi [N20.0] 10/03/2020 Encounter for support and coordination of trans*12/12/2020 Chronic pancreatitis (HCC) [K86.1] 10/10/2022 Diagnosed: 10/10/2022 History of acute anterolateral wall FL [I25.2] 08/10/2006 Diagnosed: 10/10/2022 Vascular disorder of extremity (HCC) [I73.9] 10/10/2022 Diagnosed: 10/10/2022 Encounter Status:Closed by NILESH MAYS on 10/10/23 [facility] Yessi 08-27-2023 CNOV Office Visit (ORTHWS ) -- SIENNA,RAMONITA H ([id number]) 1940 M NFR Date Time Provider Department 08/27/23 11:00 AM NILESH MAYS During your visit today, we recorded the following information about you: Nilesh Mays MD 08/27/2023 2:54 PM Signed Nilesh Mays MD Department of Orthopaedics Orthopaedics [address] [facility] [address] Dept: [phone] Dept August 27, 2023 CHIEF COMPLAINT: New of the Left Hand and Dupuytren's contracture left hand (Referred by Dayne Hatfield/Last seen by Dr. Mays on 02/01/12 S/P needle aponeurotomy left ring finger/) HPI Patient presents with: Left Hand - New Dupuytren's contracture left hand: Referred by Dayne Hatfield Last seen by Dr. Mays on 02/01/12 S/P needle aponeurotomy left ring finger AMB ROOMING INTAKE FLOWSHEET DATA Patient states he does can some pain in his left 4th finger but is not having any today. His finger is starting to contract again. States he is having some difficulty picking up objects and occasionally has been dropping things. Patient is right hand dominant. ASSESSMENT: M72.0 Dupuytren's contracture of left hand PLAN: We discussed a few options again. He would like non-op treatment, and although he recalls having pain with the needle procedure, that will be the easiest and most straight forward way to correct his problem. OBJECTIVE: Mr. Ramonita El is a pleasant 83 year old in no apparent distress. Gen:There were no vitals taken for this visit. nl development, non obese, no deformities ENT: Normocephalic, normal hearing, moist mucosa CV: Pulses:Radial= 2+ and symmetric, capillary refill < 2 secs, no peripheral edema/varicosities Skin: no rash, bruising or lesions. Good turgor. Psych: cooperative and appropriate, alert and oriented x 3, good mood and affect. Musculoskeletal: Palmar cord in the ring ray that is causeing a MIDDLE contracture of the MCP of 50 degrees. Thick nodularity over the A1 brian area. Supporting Subjective Information Below: Past Surgical History: PAST SURGICAL HISTORY Procedure Laterality Date ATHERECTOMY, FEMORAL-POPLITEAL 09/28/2009 right COLONOSCOPY FLX DX W/COLLJ SPEC WHEN PFRMD 06/21/2015 Colonoscopy CORONARY ENDARTERCOMY OPEN ANY METHOD 08/10/2006 Angioplasty with stent ECHOCARDIOGRAM 11/24/2020 11/25/[address] Puentes: LV size and LVSF WNL, EF 55%, structurally normal valves ESOPHAGOGASTRODUODENOSCOPY TRANSORAL DIAGNOSTIC 06/21/2015 EGD PAST SURGICAL HISTORY OF 04/05/1999 Cautery and outfracture of inferior turbinates. Removal fx fragment PAST SURGICAL HISTORY OF 1960 renal stone extraction: PAST SURGICAL HISTORY OF dental extraction PICC LINE INSERT/CONSULT 04/11/2016 SLCTV CATHJ 3RD+ ORD SLCTV ABDL PEL/LXTR BRNCH 09/28/2009 VASECTOMY UNI/BI SPX W/POSTOP SEMEN EXAMS 10/1984 Medications: Current Outpatient Medications Medication Sig timolol maleate (TIMOPTIC) 0.5 % ophthalmic solution pantoprazole DR (PROTONIX) 20 mg tablet TAKE 1 TABLET BY MOUTH 1/2 HOUR BEFORE BREAKFAST ON AN EMPTY STOMACH ONCE DAILY tamsulosin (FLOMAX) 0.4 mg Take 1 capsule by mouth once daily. latanoprost (XALATAN) 0.005 % ophthalmic solution metoprolol tartrate, short acting, (LOPRESSOR) 100 mg tablet Take 1 tablet by mouth twice daily. amLODIPine (NORVASC) 10 mg tablet Take 1 tablet by mouth once daily. clopidogrel (PLAVIX) 75 mg tablet Take 1 tablet by mouth once daily. hydrOXYzine HCl (ATARAX) 25 mg tablet Take 1 tablet by mouth every 8 hours as needed for anxiety. tiZANidine (ZANAFLEX) 2 mg tablet 1/2 -1 tab at HS as needed for pain/ sleep (Patient not taking: Reported on 08/27/2023) No current facility-administered medications for this visit. Allergies: Dust Mites, Lipitor [Atorvastatin], Lisinopril, Penicillins, Pletal [Cilostazol], and Pravastatin ROS: General (negative for fatigue, malaise, weight loss/gain) HEENT (negative for headache, earache, recent vision changes, sinus pain, sore throat) Respiratory (no recent shortness of breath, hemoptysis) CV (negative for chest tightness, palpitations) Musculoskeletal (see HPI) Psych (no depression, anxiety) Nilesh Mays MD Referring Provider: Ida HATFIELD [[id number]] Allergies As of Date: 08/27/2023 Noted Allergy Reaction DUST MITES 12/13/2006 LIPITOR (ATORVASTATIN) 12/04/2007 Comments: myalgia LISINOPRIL 12/04/2007 Comments: cough PENICILLINS 10/14/2004 4 - Hives PLETAL (CILOSTAZOL) 09/04/2019 14 - Other: See Comments Comments: chest pain PRAVASTATIN 05/10/2015 17 - Myalgia Date Reviewed: 08/27/2023 Reviewed by: Nilesh Mays MD - Fully Assessed Reason for Visit: New [[id number]] Dupuytren's contracture left hand [Other] Cmt: Referred by Dayne Hatfield Last seen by Dr. Mays on 02/01/12 S/P needle aponeurotomy left ring finger Visit Diagnosis:Dupuytren's cont (more content not included)... Normal [facility] XR Chest PA and Lateralon IMPRESSION: Bibasilar atelectasis/scarring. Simulation Developer: PSCB Transcribe Date/Time: Feb 02 2023 8:43A Dictated by : ELLIE JOSEPH MD This examination was interpreted and the report reviewed and electronically signed by: ELLIE JOSEPH MD on Feb 02 2023 8:45AM [facility] [[email or web address]] DIVISION OF RADIOLOGY * * *Final Report* * * DATE OF EXAM: Feb 02 2023 8:07AM WOX [id number] - XR CHEST 2V FRONTAL/LAT / PROCEDURE REASON: Acute cough * * * * Physician Interpretation * * * * EXAMINATION: CHEST RADIOGRAPH (2 VIEW FRONTAL & LATERAL) CLINICAL HISTORY: Acute cough MQ: XC2_6 EXAM DATE/TIME: 02/02/2023 8:07 AM COMPARISON: Chest x-ray on 03/10/2016 RESULT: Lines, tubes, and devices: None. Lungs and pleura: Bibasilar atelectasis/scarring is noted. No definite consolidations. No masses. No pleural effusions or pneumothorax. There is eventration of the right hemidiaphragm. Cardiomediastinal silhouette: Stable cardiomediastinal silhouette. There are atherosclerotic calcifications in the thoracic aorta. Bones and soft tissues: The spine shows degenerative changes. DIVISION OF RADIOLOGY Provider, Janie [facility] [place] - 02/02/2023 * * *Final Report* * * DATE OF EXAM: Feb 02 2023 8:07AM WOX 5291 - XR CHEST 2V FRONTAL/LAT / PROCEDURE REASON: Acute cough * * * * Physician Interpretation * * * * EXAMINATION: CHEST RADIOGRAPH (2 VIEW FRONTAL & LATERAL) CLINICAL HISTORY: Acute cough MQ: XC2_6 EXAM DATE/TIME: 02/02/2023 8:07 AM COMPARISON: Chest x-ray on 03/10/2016 RESULT: Lines, tubes, and devices: None. Lungs and pleura: Bibasilar atelectasis/scarring is noted. No definite consolidations. No masses. No pleural effusions or pneumothorax. There is eventration of the right hemidiaphragm. Cardiomediastinal silhouette: Stable cardiomediastinal silhouette. There are atherosclerotic calcifications in the thoracic aorta. Bones and soft tissues: The spine shows degenerative changes. IMPRESSION IMPRESSION: Bibasilar atelectasis/scarring. Simulation Developer: [email or web address] Transcribe Date/Time: Feb 02 2023 8:43A Dictated by : ELLIE JOSEPH MD This examination was interpreted and the report reviewed and electronically signed by: ELLIE JOSEPH MD on Feb 02 2023 8:45AM [facility] Radiology Study observation (narrative) [facility] XR Chest PA and LateralOrder ed By: Ccf Provider on 02-02-2023 [facility] XR Lumbar spine 3 Viewson IMPRESSION: DEGENERATIVE CHANGE AND ALIGNMENT ABNORMALITIES DESCRIBED Simulation Developer: [facility] Transcribe Date/Time: Oct 11 2022 2:10P Dictated by : STACY MELLO MD This examination was interpreted and the report reviewed and electronically signed by: STACY MELLO MD on Oct 11 2022 2:13PM [facility] [[email or web address]] DIVISION OF RADIOLOGY * * *Final Report* * * DATE OF EXAM: Oct 10 2022 10:27AM WOX 5228 - XR LUMBAR 3V AP/LAT/L5-S1 / PROCEDURE REASON: multiple diagnoses * * * * Physician Interpretation * * * * Examination: XR LUMBAR 3V AP/LAT/L5-S1 History: Benign prostatic hyperplasia with weak urinary stream Benign prostatic hyperplasia with weak urinary stream Technique: XR LUMBAR 3V AP/LAT/L5-S1 Comparison: CT scans of 10/01/2020 RESULT: 5 nonrib-bearing lumbar type vertebrae. For numbering purposes, L4-5 is at the level of the iliac crest. Grade 1 spondylolisthesis of L5 on S1, with spondylolysis bilaterally. Moderate L5-S1 disc space narrowing. Mild spondylosis and osteophytosis. Normal alignment. Normal lordosis. Moderate L1-L2 disc space narrowing. No acute fracture or focal bony abnormality DIVISION OF RADIOLOGY Provider, Janie [facility] - 10/11/2022 * * *Final Report* * * DATE OF EXAM: Oct 10 2022 10:27AM WOX 5228 - XR LUMBAR 3V AP/LAT/L5-S1 / PROCEDURE REASON: multiple diagnoses * * * * Physician Interpretation * * * * Examination: XR LUMBAR 3V AP/LAT/L5-S1 History: Benign prostatic hyperplasia with weak urinary stream Benign prostatic hyperplasia with weak urinary stream Technique: XR LUMBAR 3V AP/LAT/L5-S1 Comparison: CT scans of 10/01/2020 RESULT: 5 nonrib-bearing lumbar type vertebrae. For numbering purposes, L4-5 is at the level of the iliac crest. Grade 1 spondylolisthesis of L5 on S1, with spondylolysis bilaterally. Moderate L5-S1 disc space narrowing. Mild spondylosis and osteophytosis. Normal alignment. Normal lordosis. Moderate L1-L2 disc space narrowing. No acute fracture or focal bony abnormality IMPRESSION IMPRESSION: DEGENERATIVE CHANGE AND ALIGNMENT ABNORMALITIES DESCRIBED Simulation Developer: PSCB Transcribe Date/Time: Oct 11 2022 2:10P Dictated by : STACY MELLO MD This examination was interpreted and the report reviewed and electronically signed by: STACY MELLO MD on Oct 11 2022 2:13PM EST [facility] XR Lumbar spine 3 ViewsOrder ed By: Ccf Provider on 10-11-2022 [facility] XR Lumbar spine 3 Viewson Radiology Study observation (narrative) [facility] Basophil percentageOrdered B y: Willis Mera on 09-08-2022 Basophil percentage < 0.9 mg/dL 0.70-1.30 [facility] No Panel InformationOrdered By: Willis Mera on 09-08-2022 Bedside Estimated GFR (eGFR) > 60.0000 mL/min >60 [facility] STREP A MOLECULAR (POC)on Procedural Control Valid [facility] Strep A (POCT) Negative Negative [facility] No Panel Informationon 01-01 Ethyl Alcohol Level < 3.0 mg/dL [facility] Work Phone: Comment on above: The serum:whole bloo d ethanol ratio is approximately 1.14and varies slightly with hematocrit. Medical Alcohol reference interval and critical value innon-tolerant individuals; 50 - 100 Impairment 100 Intoxication 100 - 250 Severe Poisoning 250 - 400 Deep/possible fatal coma Absolute lymphocyte counton 12-31-2021 Lymphocytes Auto (Unsp spec) [#/Vol] 0.95 10*3/uL 0.83-4.51 [facility] Work Phone: Basophil percentageon 2021 Basophils/100 WBC (Bld) 0.5 % 0-1 [facility] Work Phone: Bilirubin [Mass/Vol] 0.40 mg/dL 0.20-1.00 [facility] Work Phone: Comment on above: For patients on eltr ombopag therapy, use of Dimension [place] TBIL is not recommended. Chloride [Moles/Vol] 107 mmol/L 98-107 [facility] Work Phone: Eosinophils/100 WBC (Bld) 0.3 % 0-5 [facility] Work Phone: Glucose [Mass/Vol] 150 mg/dL 74-106 [facility] Work Phone: Comment on above: Fasting Glucose resu lt greater than or equal to 126 mg/dL suggests DIABETES MELLITUS per A.D.A. criteria. Neutrophils (Bld) [#/Vol] 11.6 10*3/uL 2.0-7.7 [facility] Work Phone: Neutrophils/100 WBC (Bld) 87.9 % 47-70 [facility] Work Phone: Potassium [Moles/Vol] 3.6 mmol/L 3.5-5.1 [facility] Work Phone: [phone] Protein [Mass/Vol] 6.7 g/dL 6.4-8.2 [facility] Work Phone: Sodium [Moles/Vol] 141 mmol/L 136-145 [facility] Work Phone: WBC (Bld) [#/Vol] 13.2 10*3/uL 4.4-11.0 [facility] Work Phone: Blood erythrocytes count (nu mber/volume)on 12-31-2021 RBC (Bld) [#/Vol] 4.96 10*6/uL 4.6-6.2 [facility] Work Phone: Blood hemoglobin measurement (mass/volume)on 12-31-2021 Hemoglobin (Bld) [Mass/Vol] 16.7 g/dL 13.0-16.5 [facility] Work Phone: Blood lymphocytes/100 leukoc yteson 12-31-2021 Lymphocytes/100 WBC (Bld) 7.2 % 19-41 [facility] Work Phone: Blood monocytes/100 leukocyt eson 12-31-2021 Monocytes/100 WBC (Bld) 3.7 % 0-10 [facility] Work Phone: Blood platelet mean volumeon 12-31-2021 Platelet mean volume (Bld) [Entitic vol] 10.9 fL 6.2-12.0 [facility] Work Phone: Determination of erythrocyte mean corpuscular volume (MCV)on 12-31-2021 MCV (RBC) [Entitic vol] 91.5 fL 80-94 [facility] Work Phone: Hematocrit Auto (Bld) [Volum e fraction]on 12-31-2021 Hematocrit (Bld) [Volume fraction] 45.4 % 40-54 [facility] Work Phone: Laboratory - Chemistry and C hemistry - challengeon 12-31-2021 ALP [Catalytic activity/Vol] 85 U/L 45-117 [facility] Work Phone: ALT [Catalytic activity/Vol] 27 U/L 16-61 [facility] Work Phone: CO2 [Moles/Vol] 23.0 mmol/L 21.0-32.0 [facility] Work Phone: Globulin (S) [Mass/Vol] 3.3 g/dL 2.2-4.2 [facility] Work Phone: Urea nitrogen/Creatinine [Mass ratio] 20.0 mg/mg 10-20 [facility] Work Phone: Laboratory - Drug toxicology on 12-31-2021 Amphetamines Ql (U) Negative <1000 ng/mL [facility] Work Phone: Benzodiazepines Ql (U) Negative < 200 ng/mL [facility] Work Phone: Cannabinoids Screen Ql (U) Negative < 50 ng/mL [facility] Work Phone: Cocaine Ql (U) Negative < 300 ng/mL [facility] Work Phone: Opiates Ql (U) Negative < 300 ng/mL [facility] Work Phone: Laboratory - Hematology and Cell countson 12-31-2021 Erythrocyte distribution width (RBC) [Entitic vol] 41.6 fL 35.1-43.9 [facility] Work Phone: Erythrocyte distribution width (RBC) [Ratio] 12.5 % 11.6-14.6 [facility] Work Phone: Immature granulocytes/100 WBC (Bld) 0.400 % 0.0-0.9 [facility] Work Phone: Comment on above: IG% - Immature Granu locytes (promyelocytes, myelocytes and metamyelocytes) > 1% indicates that a LEFT SHIFT is Present. MCH (RBC) [Entitic mass] 33.7 pg 27.0-32.0 [facility] Work Phone: Nucleated RBC/100 WBC (Bld) [Ratio] 0 % 0-5 [facility] Work Phone: MCHC Auto (RBC) [Mass/Vol]on 12-31-2021 MCHC (RBC) [Mass/Vol] 36.8 g/dL 32-36 [facility] Work Phone: No Panel Informationon 12-31 MDMA (Ecstasy) Screen Negative < 500 ng/mL [facility] Work Phone: Urine Barbiturates Screen Negative < 200 ng/mL [facility] Work Phone: Urine Drug Screen Comment [facility] Work Phone: Comment on above: CONFIRMATORY TESTING FOR ALL POSITIVE URINE DRUG SCREENRESULTS WILL ONLY BE SENT OUT UPON PHYSICIAN ORDER. VISTA Urine Drug Screen methods provide only preliminaryanalytical test results. A more specific alternate chemicalmethod must be used in order to obtain a confirmedanalytical result. Gas chromatography/mass spectrometery(GC/MS) is the preferred confirmatory method. Clinicalconsideration and professional judgement should be appliedto any drug of abuse test result, particularly whenpreliminary positive results are used. URINE TCA TESTING MUST BE ORDERED SEPARATELY. USE TESTMNEMONIC: [facility] Urine Methadone Screen Negative < 300 ng/mL [facility] Work Phone: Estimated Creatinine Clearance Calc 63.42 ml/min [facility] Work Phone: Estimated GFR (MDRD) Amer 92 mL/min >60 [facility] Work Phone: Comment on above: GFR Calc Estimated GFR (MDRD) Non-Af Amer 76 mL/min >60 [facility] Work Phone: Comment on above: Non- GFR Calc Platelets bldon 12-31-2021 Platelets (Bld) [#/Vol] 213 10*3/uL 150-450 [facility] Work Phone: Serum or plasma albumin heather urement (mass/volume)on 12-31-2021 Albumin [Mass/Vol] 3.4 g/dL 3.2-5.0 [facility] Work Phone: Serum or plasma albumin/glob ulin mass ratioon 12-31-2021 Albumin/Globulin [Mass ratio] 1.0 {ratio} 0.9-2.4 [facility] Work Phone: Serum or plasma calcium heather urement (mass/volume)on 12-31-2021 Calcium [Mass/Vol] 9.4 mg/dL 8.5-10.1 [facility] Work Phone: Serum or plasma creatinine m easurement (mass/volume)on 12-31-2021 Creatinine [Mass/Vol] 1.00 mg/dL 0.70-1.30 [facility] Work Phone: Comment on above: The validity of the calculated GFR & GFRAA in patients over 70 years has not been determined. Clinical correlation is essential. Serum or plasma urea nitroge n measurement (mass/volume)on 12-31-2021 Urea nitrogen [Mass/Vol] 20 mg/dL 7-18 [facility] Work Phone: Thin prep Papanicolaou smear with manual screeningon 12-31-2021 Thin prep Papanicolaou smear with manual screening 18 U/L 15-37 [facility] Work Phone: Thin prep Papanicolaou smear with manual screening 11 5-15 [facility] Work Phone: Urine phencyclidine (PCP) de tectionon 12-31-2021 Phencyclidine Ql (U) Negative < 25 ng/mL [facility] Work Phone: Vital Signs Date Time Vital Sign Value Performing Clinician Facility 07-17-2024 14:05-0400 Body temperature 9.4 [degF] Karla Baron [employer] Work Phone: [facility] 07-17-2024 14:05-0400 Body weight 73.02 kg Karla Baron [employer] Work Phone: [facility] 07-17-2024 14:05-0400 Diastolic blood pressure 58 mm[Hg] Karla Haagen [employer] Work Phone: 6(126)[phone] [place] [address] 07-17-2024 14:05-0400 Heart rate 66 /min Karla Haagen [employer] Work Phone: 1(081)243-637300 [place] [address] 07-17-2024 14:05-0400 Respiratory rate 16 /min Karla Haagen [employer] Work Phone: 4(138)841-225600 [place] [address] 07-17-2024 14:05-0400 SaO2% (BldA) [Mass fraction] 93 % Karla Haagen [employer] Work Phone: 7(582)980-412100 [place] [address] 07-17-2024 14:05-0400 Systolic blood pressure 122 mm[Hg] Karla Haagen [employer] Work Phone: 3(841)627-810900 [place] [address] 06-03-2024 11:05-0400 Body temperature 98.4 [degF] Karla Haagen [employer] Work Phone: 7(051)677-579600 [place] [address] 06-03-2024 11:05-0400 Body weight 73.48 kg Karla Haagen [employer] Work Phone: 5(126)[phone] [place] [address] 06-03-2024 11:05-0400 Diastolic blood pressure 62 mm[Hg] Karla Haagen [employer] Work Phone: 2(864)595-967[address] [place] [address] 06-03-2024 11:05-0400 Heart rate 68 /min Karla Haagen [employer] Work Phone: 8(621)506-726400 [place] [address] 06-03-2024 11:05-0400 Respiratory rate 16 /min Karla Haagen [employer] Work Phone: 8(215)757-112[address] [place] [address] 06-03-2024 11:05-0400 SaO2% (BldA) [Mass fraction] 94 % Karla Haagen [employer] Work Phone: 3(939)523-484600 [place] [address] 06-03-2024 11:05-0400 Systolic blood pressure 177 mm[Hg] Karla Haagen [employer] Work Phone: 9(098)570-707500 [place] [address] 05-27-2024 11:05-0400 Body mass index (BMI) [Ratio] 25.37 kg/m2 Karla Baron IN STORE REPRESENTATIVE.[employer]TTED INSTRUMENT REPAIRER Work Phone: [facility] 05-27-2024 11:05-0400 Body weight 73.48 kg Karla Baron IN STORE REPRESENTATIVE.[employer]RETTED INSTRUMENT REPAIRER Work Phone: [facility] 05-27-2024 11:05-0400 Diastolic blood pressure 64 mm[Hg] Karla Baron IN STORE REPRESENTATIVE.FRETTED INSTRUMENT REPAIRER Work Phone: [facility] 05-27-2024 11:05-0400 Heart rate 64 /min Karla Baron IN STORE REPRESENTATIVE.FRETTED INSTRUMENT REPAIRER Work Phone: [facility] 05-27-2024 11:05-0400 Respiratory rate 16 /min Karla Baron IN STORE REPRESENTATIVE.FRETTED INSTRUMENT REPAIRER Work Phone: [facility] 05-27-2024 11:05-0400 SaO2% (BldA) [Mass fraction] 94 % Karla Baron IN STORE REPRESENTATIVE.FRETTED INSTRUMENT REPAIRER Work Phone: [facility] 05-27-2024 11:05-0400 Systolic blood pressure 138 mm[Hg] Karla Baron IN STORE REPRESENTATIVE.FRETTED INSTRUMENT REPAIRER Work Phone: [facility] 05-18-2024 06:55-0400 Body temperature 98 [degF] Karla Baron [employer] Work Phone: [facility] 05-18-2024 06:55-0400 Diastolic blood pressure 64 mm[Hg] Karla Baron [employer] Work Phone: [facility] 05-18-2024 06:55-0400 Heart rate 62 /min Karla Roperagen [employer] Work Phone: [facility] 05-18-2024 06:55-0400 Respiratory rate 16 /min Karla Haagen [employer] Work Phone: [facility] 05-18-2024 06:55-0400 SaO2% (BldA) [Mass fraction] 92 % Karla Roperagen [employer] Work Phone: [facility] 05-18-2024 06:55-0400 Systolic blood pressure 151 mm[Hg] Karla Baron [employer] Work Phone: [facility] 05-18-2024 05:24-0400 Body height 172.72 cm Karla Baron [employer] Work Phone: [facility] 05-18-2024 05:24-0400 Body mass index (BMI) [Ratio] 23.8 kg/m2 Karla Baron [employer] Work Phone: [facility] 05-18-2024 05:24-0400 Body weight 71 kg Karla Roperagen [employer] Work Phone: [facility] 02-29-2024 14:01-0500 Body mass index (BMI) [Ratio] 25.22 kg/m2 Karla Baron IN STORE REPRESENTATIVE.FRETTED INSTRUMENT REPAIRER Work Phone: [facility] 02-29-2024 14:01-0500 Body weight 73.03 kg Karla Baron IN STORE REPRESENTATIVE.FRETTED INSTRUMENT REPAIRER Work Phone: [facility] 02-29-2024 14:01-0500 Diastolic blood pressure 74 mm[Hg] Karla Baron IN STORE REPRESENTATIVE.FRETTED INSTRUMENT REPAIRER Work Phone: [facility] 02-29-2024 14:01-0500 Heart rate 72 /min Karla Baron IN STORE REPRESENTATIVE.FRETTED INSTRUMENT REPAIRER Work Phone: [facility] 02-29-2024 14:01-0500 Respiratory rate 16 /min Karla Baron IN STORE REPRESENTATIVE.FRETTED INSTRUMENT REPAIRER Work Phone: [facility] 02-29-2024 14:01-0500 SaO2% (BldA) [Mass fraction] 95 % Karla Baron IN STORE REPRESENTATIVE.FRETTED INSTRUMENT REPAIRER Work Phone: [facility] 02-29-2024 14:01-0500 Systolic blood pressure 138 mm[Hg] Karla Baron IN STORE REPRESENTATIVE.FRETTED INSTRUMENT REPAIRER Work Phone: [facility] 02-11-2024 08:48-0500 Body mass index (BMI) [Ratio] 24.5 kg/m2 Karla Baron [employer] Work Phone: [facility] 02-11-2024 08:48-0500 Body temperature 98.2 [degF] Karla Haagen [employer] Work Phone: [facility] 02-11-2024 08:48-0500 Body weight 73.3 kg Karla Haagen [employer] Work Phone: [facility] 02-11-2024 08:48-0500 Diastolic blood pressure 68 mm[Hg] Karla Haagen [employer] Work Phone: [facility] 02-11-2024 08:48-0500 Heart rate 69 /min Karla Haagen [employer] Work Phone: [facility] 02-11-2024 08:48-0500 Respiratory rate 18 /min Karla Haagen [employer] Work Phone: [facility] 02-11-2024 08:48-0500 SaO2% (BldA) [Mass fraction] 98 % Karla Haagen [employer] Work Phone: [facility] 02-11-2024 08:48-0500 Systolic blood pressure 173 mm[Hg] Karla Haagen [employer] Work Phone: [facility] 02-01-2024 08:32-0500 Body mass index (BMI) [Ratio] 25.38 kg/m2 Gus Sanchez IN STORE REPRESENTATIVE.FRETTED INSTRUMENT REPAIRER Work Phone: [facility] 02-01-2024 08:32-0500 Body temperature 97.9 [degF] Gus Sanchez IN STORE REPRESENTATIVE.FRETTED INSTRUMENT REPAIRER Work Phone: [facility] 02-01-2024 08:32-0500 Body weight 73.5 kg Gus Sanchez IN STORE REPRESENTATIVE.FRETTED INSTRUMENT REPAIRER Work Phone: [facility] 02-01-2024 08:32-0500 Diastolic blood pressure 82 mm[Hg] Gus Sanchez IN STORE REPRESENTATIVE.FRETTED INSTRUMENT REPAIRER Work Phone: [facility] 02-01-2024 08:32-0500 Heart rate 86 /min Gus Sanchez APRN.FRETTED INSTRUMENT REPAIRER Work Phone: [facility] 02-01-2024 08:32-0500 Respiratory rate 18 /min Gus Fitchravinder IN STORE REPRESENTATIVE.FRETTED INSTRUMENT REPAIRER Work Phone: [facility] 02-01-2024 08:32-0500 SaO2% (BldA) [Mass fraction] 97 % Gus Fitchravinder IN STORE REPRESENTATIVE.FRETTED INSTRUMENT REPAIRER Work Phone: [facility] 02-01-2024 08:32-0500 Systolic blood pressure 107 mm[Hg] Gus Fitchravnider IN STORE REPRESENTATIVE.FRETTED INSTRUMENT REPAIRER Work Phone: [facility] 01-30-2024 12:45-0500 Body temperature 98.2 [degF] Karla Haagen [employer] Work Phone: [facility] 01-30-2024 12:45-0500 Diastolic blood pressure 71 mm[Hg] Karla Haagen [employer] Work Phone: [facility] 01-30-2024 12:45-0500 Heart rate 64 /min Karla Haagen [employer] Work Phone: [facility] 01-30-2024 12:45-0500 Respiratory rate 16 /min Karla Haagen [employer] Work Phone: [facility] 01-30-2024 12:45-0500 SaO2% (BldA) [Mass fraction] 97 % Karla Haagen [employer] Work Phone: [facility] 01-30-2024 12:45-0500 Systolic blood pressure 144 mm[Hg] Karla Haagen [employer] Work Phone: [facility] 01-30-2024 11:05-0500 Body mass index (BMI) [Ratio] 25.2 kg/m2 Karla Haagen [employer] Work Phone: [facility] 01-30-2024 11:05-0500 Body weight 75.1 kg Karla Haagen [employer] Work Phone: [facility] 01-21-2024 13:05-0500 Diastolic blood pressure 71 mm[Hg] Dave Jaylan IN STORE REPRESENTATIVE.FRETTED INSTRUMENT REPAIRER Work Phone: [facility] Comment on above: BP average 01-21-2024 13:05-0500 Heart rate 69 /min Dave Jaylan IN STORE REPRESENTATIVE.FRETTED INSTRUMENT REPAIRER Work Phone: [facility] 01-21-2024 13:05-0500 Systolic blood pressure 162 mm[Hg] Dave Jaylan IN STORE REPRESENTATIVE.FRETTED INSTRUMENT REPAIRER Work Phone: [facility] Comment on above: BP average 01-21-2024 12:51-0500 Body mass index (BMI) [Ratio] 25.37 kg/m2 Dave Jaylan IN STORE REPRESENTATIVE.FRETTED INSTRUMENT REPAIRER Work Phone: [facility] 01-21-2024 12:51-0500 Body weight 73.48 kg Dave Jaylan IN STORE REPRESENTATIVE.FRETTED INSTRUMENT REPAIRER Work Phone: [facility] 01-21-2024 12:51-0500 Respiratory rate 16 /min Dave Jaylan IN STORE REPRESENTATIVE.FRETTED INSTRUMENT REPAIRER Work Phone: [facility] 01-21-2024 12:51-0500 SaO2% (BldA) [Mass fraction] 98 % Dave Jaylan IN STORE REPRESENTATIVE.FRETTED INSTRUMENT REPAIRER Work Phone: [facility] 01-02-2024 10:35-0500 Body mass index (BMI) [Ratio] 25.03 kg/m2 Tomeka Lissette IN STORE REPRESENTATIVE.FRETTED INSTRUMENT REPAIRER Work Phone: [facility] 01-02-2024 10:35-0500 Body weight 72.48 kg Tomeka Lissette IN STORE REPRESENTATIVE.FRETTED INSTRUMENT REPAIRER Work Phone: [facility] 01-02-2024 10:35-0500 Diastolic blood pressure 73 mm[Hg] Tomeka Lissette IN STORE REPRESENTATIVE.FRETTED INSTRUMENT REPAIRER Work Phone: [facility] 01-02-2024 10:35-0500 Heart rate 65 /min Tomeka Lissette IN STORE REPRESENTATIVE.FRETTED INSTRUMENT REPAIRER Work Phone: [facility] 01-02-2024 10:35-0500 SaO2% (BldA) [Mass fraction] 98 % Tomeka Lissette IN STORE REPRESENTATIVE.FRETTED INSTRUMENT REPAIRER Work Phone: [facility] 01-02-2024 10:35-0500 Systolic blood pressure 170 mm[Hg] Tomeka Lissette IN STORE REPRESENTATIVE.FRETTED INSTRUMENT REPAIRER Work Phone: [facility] 12-26-2023 12:58-0500 Diastolic blood pressure 76 mm[Hg] Star Grande MD Work Phone: [facility] 12-26-2023 12:58-0500 Respiratory rate 16 /min Star Grande MD Work Phone: [facility] 12-26-2023 12:58-0500 Systolic blood pressure 167 mm[Hg] Star Grande MD Work Phone: [facility] 12-26-2023 12:47-0500 Heart rate 72 /min Star Grande MD Work Phone: [facility] 12-26-2023 12:47-0500 SaO2% (BldA) [Mass fraction] 93 % Star Grande MD Work Phone: [facility] 12-26-2023 10:52-0500 Body mass index (BMI) [Ratio] 25.62 kg/m2 Star Grande MD Work Phone: [facility] 12-26-2023 10:52-0500 Body temperature 97.81 [degF] Star Grande MD Work Phone: [facility] 12-26-2023 10:52-0500 Body weight 74.2 kg Star Grande MD Work Phone: [facility] 12-06-2023 13:25-0400 Body height 170.2 cm Tomeka Lissette IN STORE REPRESENTATIVE.FRETTED INSTRUMENT REPAIRER Work Phone: [facility] 12-06-2023 13:25-0400 Body mass index (BMI) [Ratio] 25.62 kg/m2 Tomeka Lissette IN STORE REPRESENTATIVE.FRETTED INSTRUMENT REPAIRER Work Phone: [facility] 12-06-2023 13:25-0400 Body temperature 97.11 [degF] Tomeka Lissette IN STORE REPRESENTATIVE.FRETTED INSTRUMENT REPAIRER Work Phone: [facility] 12-06-2023 13:25-0400 Body weight 74.21 kg Tomeka Lissette IN STORE REPRESENTATIVE.FRETTED INSTRUMENT REPAIRER Work Phone: [facility] 12-06-2023 13:25-0400 Diastolic blood pressure 63 mm[Hg] Tomeka Lissette IN STORE REPRESENTATIVE.FRETTED INSTRUMENT REPAIRER Work Phone: [facility] 12-06-2023 13:25-0400 Heart rate 69 /min Tomeka Lissette IN STORE REPRESENTATIVE.FRETTED INSTRUMENT REPAIRER Work Phone: [facility] 12-06-2023 13:25-0400 SaO2% (BldA) [Mass fraction] 96 % Tomeka Lissette IN STORE REPRESENTATIVE.FRETTED INSTRUMENT REPAIRER Work Phone: [facility] 12-06-2023 13:25-0400 Systolic blood pressure 152 mm[Hg] Tomeka Lissette IN STORE REPRESENTATIVE.FRETTED INSTRUMENT REPAIRER Work Phone: [facility] 11-27-2023 10:59-0400 Body mass index (BMI) [Ratio] 25 kg/m2 Karla Haagen IN STORE REPRESENTATIVE.FRETTED INSTRUMENT REPAIRER Work Phone: [facility] 11-27-2023 10:59-0400 Body weight 73.48 kg Karla Haagen IN STORE REPRESENTATIVE.FRETTED INSTRUMENT REPAIRER Work Phone: [facility] 11-27-2023 10:59-0400 Diastolic blood pressure 82 mm[Hg] Karla Haagen IN STORE REPRESENTATIVE.FRETTED INSTRUMENT REPAIRER Work Phone: [facility] 11-27-2023 10:59-0400 Heart rate 59 /min Karla Haagen IN STORE REPRESENTATIVE.FRETTED INSTRUMENT REPAIRER Work Phone: [facility] 11-27-2023 10:59-0400 Respiratory rate 16 /min Karla Haagen IN STORE REPRESENTATIVE.FRETTED INSTRUMENT REPAIRER Work Phone: [facility] 11-27-2023 10:59-0400 SaO2% (BldA) [Mass fraction] 95 % Karla Haagen IN STORE REPRESENTATIVE.FRETTED INSTRUMENT REPAIRER Work Phone: [facility] 11-27-2023 10:59-0400 Systolic blood pressure 136 mm[Hg] Karla Hachayo GRIFFITH Work Phone: [facility] 05-24-2023 09:21-0400 Body height 171.5 cm NA Hatfield PA-C Work Phone: [facility] 05-24-2023 09:21-0400 Body weight 76.2 kg NA Hatfield PA-C Work Phone: [facility] 05-24-2023 09:21-0400 Diastolic blood pressure 64 mm[Hg] NA Hatfield PA-C Work Phone: [facility] 05-24-2023 09:21-0400 Heart rate 61 /min NA Hatfield PA-C Work Phone: [facility] 05-24-2023 09:21-0400 SaO2% (BldA) [Mass fraction] 95 % NA Hatfield PA-C Work Phone: [facility] 05-24-2023 09:21-0400 Systolic blood pressure 136 mm[Hg] NA Hatfield PA-C Work Phone: [facility] 05-03-2023 14:15-0400 Body temperature 97.6 [degF] [facility] 05-03-2023 14:15-0400 Diastolic blood pressure 76 mm[Hg] [facility] 05-03-2023 14:15-0400 Heart rate 78 /min [facility] 05-03-2023 14:15-0400 Respiratory rate 16 /min [facility] 05-03-2023 14:15-0400 SaO2% (BldA) [Mass fraction] 99 % [facility] 05-03-2023 14:15-0400 Systolic blood pressure 128 mm[Hg] [facility] 05-03-2023 13:16-0400 Body height 185.[address] [facility] 05-03-2023 13:16-0400 Body mass index (BMI) [Ratio] 20.1 kg/m2 [facility] 05-03-2023 13:16-0400 Body weight 69.[address] [facility] 10-10-2022 08:36-0400 Body height 171.5 cm NA Hatfield PA-C Work Phone: [facility] 10-10-2022 08:36-0400 Body weight 75.48 kg NA Hatfield PA-C Work Phone: [facility] 10-10-2022 08:36-0400 Diastolic blood pressure 70 mm[Hg] NA Hatfield PA-C Work Phone: [facility] 10-10-2022 08:36-0400 Heart rate 60 /min NA Hatfield PA-C Work Phone: [facility] 10-10-2022 08:36-0400 SaO2% (BldA) [Mass fraction] 97 % NA Hatfield PA-C Work Phone: [facility] 10-10-2022 08:36-0400 Systolic blood pressure 128 mm[Hg] NA Hatfield PA-C Work Phone: [facility] 08-11-2022 10:04-0400 Body weight 74.3 kg NA Hatfield PA-C Work Phone: [facility] 08-11-2022 10:04-0400 Diastolic blood pressure 80 mm[Hg] NA Hatfield PA-C Work Phone: [facility] 08-11-2022 10:04-0400 Heart rate 58 /min NA Hatfield PA-C Work Phone: [facility] 08-11-2022 10:04-0400 Respiratory rate 18 /min NA Hatfield PA-C Work Phone: [facility] 08-11-2022 10:04-0400 SaO2% (BldA) [Mass fraction] 97 % NA Hatfield PA-C Work Phone: [facility] 08-11-2022 10:04-0400 Systolic blood pressure 138 mm[Hg] NA Hatfield PA-C Work Phone: [facility] 07-04-2022 13:06-0400 Body weight 73.85 kg Noris Perez APRN.CNP Work Phone: [facility] 07-04-2022 13:06-0400 Diastolic blood pressure 62 mm[Hg] Noris Podlogar IN STORE REPRESENTATIVE.FRETTED INSTRUMENT REPAIRER Work Phone: [facility] 07-04-2022 13:06-0400 Heart rate 77 /min Noris Podlogar IN STORE REPRESENTATIVE.FRETTED INSTRUMENT REPAIRER Work Phone: [facility] 07-04-2022 13:06-0400 Respiratory rate 16 /min Noris Podlogar IN STORE REPRESENTATIVE.FRETTED INSTRUMENT REPAIRER Work Phone: [facility] 07-04-2022 13:06-0400 SaO2% (BldA) [Mass fraction] 97 % Noris Podlogar IN STORE REPRESENTATIVE.FRETTED INSTRUMENT REPAIRER Work Phone: [facility] 07-04-2022 13:06-0400 Systolic blood pressure 124 mm[Hg] Noris Podlogar IN STORE REPRESENTATIVE.FRETTED INSTRUMENT REPAIRER Work Phone: [facility] 04-06-2022 12:33-0500 Body temperature 97.59 [degF] Thien Maximino IN STORE REPRESENTATIVE.FRETTED INSTRUMENT REPAIRER Work Phone: [facility] 04-06-2022 12:33-0500 Body weight 72.76 kg Thien Stanton IN STORE REPRESENTATIVE.FRETTED INSTRUMENT REPAIRER Work Phone: [facility] 04-06-2022 12:33-0500 Diastolic blood pressure 70 mm[Hg] Thien Maximino IN STORE REPRESENTATIVE.FRETTED INSTRUMENT REPAIRER Work Phone: [facility] 04-06-2022 12:33-0500 Heart rate 81 /min Thien Maximino IN STORE REPRESENTATIVE.FRETTED INSTRUMENT REPAIRER Work Phone: [facility] 04-06-2022 12:33-0500 Respiratory rate 16 /min Thien Maximino IN STORE REPRESENTATIVE.FRETTED INSTRUMENT REPAIRER Work Phone: [facility] 04-06-2022 12:33-0500 SaO2% (BldA) [Mass fraction] 96 % Thien Stanton IN STORE REPRESENTATIVE.FRETTED INSTRUMENT REPAIRER Work Phone: [facility] 04-06-2022 12:33-0500 Systolic blood pressure 132 mm[Hg] Thien Maximino IN STORE REPRESENTATIVE.FRETTED INSTRUMENT REPAIRER Work Phone: [facility] 01-01-2022 11:13-0500 Respiratory rate 20 /min [facility] Work Phone: 01-01-2022 11:13-0500 SaO2% (BldA) [Mass fraction] 93 % [facility] Work Phone: 01-01-2022 10:00-0500 Body temperature 98.1 [degF] [facility] Work Phone: 01-01-2022 10:00-0500 Diastolic blood pressure 64 mm[Hg] [facility] Work Phone: 01-01-2022 10:00-0500 Heart rate 86 /min [facility] Work Phone: 01-01-2022 10:00-0500 Systolic blood pressure 142 mm[Hg] [facility] Work Phone: 01-01-2022 06:00-0500 Inhaled oxygen flow rate 2 L/min [facility] Work Phone: 12-31-2021 18:40-0500 Body height 185.42 cm [facility] Work Phone: 12-31-2021 18:40-0500 Body mass index (BMI) [Ratio] 22.1 kg/m2 [facility] Work Phone: 12-31-2021 18:40-0500 Body weight 76.[address] [facility] Work Phone: 05-20-2021 14:52-0400 Heart rate 82 /min [facility] Work Phone: 05-20-2021 14:52-0400 Respiratory rate 17 /min [facility] Work Phone: 05-20-2021 14:52-0400 SaO2% (BldA) [Mass fraction] 98 % [facility] Work Phone: 05-20-2021 13:41-0400 Body height 172.[address] [facility] Work Phone: 05-20-2021 13:41-0400 Body mass index (BMI) [Ratio] 24.3 kg/m2 [facility] Work Phone: 05-20-2021 13:41-0400 Body temperature 98.3 [degF] [facility] Work Phone: 05-20-2021 13:41-0400 Body weight 72.[address] [facility] Work Phone: 05-20-2021 13:41-0400 Diastolic blood pressure 82 mm[Hg] [facility] Work Phone: 05-20-2021 13:41-0400 Systolic blood pressure 160 mm[Hg] [facility] Work Phone: Encounters Encounter Date Encounter Type Care Provider Facility Start: 08-18-2024 ambulatory [facility] Facility :[facility] Start: 07-24-2024 ambulatory [facility] Facility :[facility] Start: 07-17-2024 End: 07-17-[address] Mello Demarco MD -[facility] Work Phone: Start: 07-17-2024 End: 07-17-2024 ambulatory Karlabárbara Baron [employer] Work Phone: [facility] Work Phone: Start: 07-03-2024 End: 07-03-2024 ambulatory [facility] [employer] Work Phone: [facility] Work Phone: Start: 07-03-2024 End: 07-03-2024 Patient encounter procedure Sammie Strong PA -Cat Scan [facility] Work Phone: Start: 07-03-2024 End: 07-03-2024 ambulatory Sammie Strong Facility:[facility] Start: 06-24-2024 End: 06-24-2024 ambulatory SELF Facility:[facility] Start: 06-05-2024 Non-patient / Non-visit Dr. Mello humphreys MD -[facility] Start: 06-05-2024 End: 06-05-2024 ambulatory Karla GÓMEZC Work Phone: [facility] Work Phone: Start: 06-05-2024 End: 06-05-2024 Patient encounter procedure Sammie BERRY -Cardiovascular Services Work Phone: Start: 06-05-2024 End: 06-05-2024 ambulatory Sammie Strong Facility:[facility] Start: 06-03-2024 End: 06-03-2024 Patient encounter procedure Sammie BERRY -[facility] Work Phone: Start: 06-03-2024 End: 06-03-2024 ambulatory Karla Baron Facility[facility] Start: 05-28-2024 End: 05-28-2024 Telephone encounter Karla Baron APRN.FRETTED INSTRUMENT REPAIRER Work Phone: [facility] [place] Comment on above: Consult (to [facility] Vas ular Surgery) Start: 05-27-2024 End: 05-27-2024 Office outpatient visit 25 minutes Karla Baron APRN.FRETTED INSTRUMENT REPAIRER Work Phone: [facility] [place] Comment on above: 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); Peripheral vascular disease; Chronic pain syndrome; Thyroid nodule; Nicotine dependence, cigarettes, uncomplicated; Insomnia, unspecified type Start: 05-27-2024 End: 05-27-2024 ambulatory SELF Facility:[facility] Start: 05-18-2024 End: 05-18-2024 Emergency department patient visit Karla CADE Work Phone: -Emergency Department Work Phone: Start: 04-03-2024 End: 04-03-2024 ambulatory KARLA BARON Facility:[facility] Start: 03-03-2024 End: 03-04-2024 Telephone encounter Karla Baron APRN.FRETTED INSTRUMENT REPAIRER Work Phone: [facility] [place] Comment on above: Results Start: 02-29-2024 End: 02-29-2024 Office outpatient visit 25 minutes Karla Baron APRN.FRETTED INSTRUMENT REPAIRER Work Phone: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 acellular pertussis vaccine, adsorbed [facility] 12-09-2020 influenza, injectabl e, quadrivalent, preservative free [facility] 12-09-2020 influenza, seasonal, injectable [facility] 12-09-2020 influenza, seasonal, injectable, preservative free NA Hatfield PA-C Work Phone: [facility] 04-29-2020 Covid (Pfizer) [facility] 11-26-2019 influenza, high-dose , quadrivalent vaccine (FLUZONE HIGH DOSE QUADRIVALENT) NA Hatfield PA-C Work Phone: [facility] 11-29-2018 influenza, high dose seasonal, preservative-free NA Hatfield PA-C Work Phone: [facility] 11-16-2017 influenza, high dose seasonal, preservative-free NA Hatfield PA-C Work Phone: [facility] Work Phone: 12-04-2016 influenza, high dose seasonal, preservative-free NA Hatfield PA-C Work Phone: [facility] Work Phone: 02-24-2016 influenza, high dose seasonal, preservative-free NA Hatfield PA-C Work Phone: [facility] Work Phone: 11-06-2015 Influenza virus vaccine [facility] 11-06-2015 influenza, high dose seasonal, preservative-free NA Hatfield PA-C Work Phone: [facility] 11-06-2015 influenza, seasonal, injectable, preservative free NA Hatfield PA-C Work Phone: [facility] 05-10-2015 pneumococcal conjuga te vaccine, 13 valent NA Hatfield PA-C Work Phone: [facility] 01-20-2015 influenza, high dose seasonal, preservative-free NA Hatfield PA-C Work Phone: [facility] 2014 influenza, high dose seasonal, preservative-free NA Hatfield PA-C Work Phone: [facility] 06-21-2013 tetanus toxoid, redu melecio diphtheria toxoid, and acellular pertussis vaccine, adsorbed [facility] 12-12-2011 influenza virus vaccine, unspecified formulation NA Hatfield PA-C Work Phone: [facility] 08-23-2011 pneumococcal polysaccharide vaccine, 23 valent NA Hatfield PA-C Work Phone: [facility] 08-23-2011 Pneumococcal Vaccine [facility] Work Phone: 08-23-2011 pneumococcal vaccine , unspecified formulation [facility] 11-14-2010 influenza virus vaccine, unspecified formulation NA Hatfield PA-C Work Phone: [facility] Work Phone: 12-04-2007 influenza virus vaccine, unspecified formulation NA Hatfield PA-C Work Phone: [facility] 12-04-2007 pneumococcal polysaccharide vaccine, 23 valent NA Hatfield PA-C Work Phone: [facility] 12-04-2007 tetanus toxoid, redu melecio diphtheria toxoid, and acellular pertussis vaccine, adsorbed NA Hatfield PA-C Work Phone: [facility] Work Phone: 08-02-1978 diphtheria and tetan us toxoids, adsorbed for pediatric use NA Liu BACA Work Phone: [facility] Payers Date Payer Category Payer Self-pay [id number] 2018 Private Health Insurance [id number] 2018 Private Health Insurance [id number] 2017 Medicare [id number] 2017 Medicare [id number] MEDICARE A ONLY [id number] Unknown [id number] Unknown COMMERCIAL OTHER [id number] Unknown [id number] Unknown [id number] Unknown [id number] Unknown [id number] Unknown [id number] Unknown [id number] Unknown [id number] Unknown [id number] Unknown [id number] Unknown [id number] Unknown [id number] Unknown [id number] Social History Date Type Detail Facility Start: 05-20-2021 End: 05-03-2023 Tobacco smoking status VTIS Unknown if ever smoked [facility] Start: 05-02-2016 None [facility] Start: 05-08-2013 Spouse/ Signif icant Other [facility] Start: 05-08-2013 Cigarettes [facility] Start: 1940 Sex Assigned At Male [facility] Start: 02-05-1958 End: 11-27-2023 Tobacco smoking status VTIS Smokes tobacco daily [facility] Start: 02-05-1958 End: 04-19-2022 History of tobacco use Cigarette Smoker [facility] Start: 10-13-2021 End: 08-11-2022 Cigarettes smoked current (pack per day) - Reported 1 [facility] Start: 10-13-2021 End: 11-27-2023 Tobacco use and exposure Smokeless tobacco non-user [facility] Start: 10-13-2021 End: 05-27-2024 Alcohol intake Current drinker of alcohol (finding) [facility] Start: 10-22-2015 History SDOH Alcohol Comment Socially [facility] Start: 1940 Sex Assigned At Not on file [facility] Start: 10-03-2021 End: 10-13-2021 Exposure to SARS-CoV-2 (event) Not sure [facility] Start: 07-04-2022 Tobacco smoking stat us NHIS Ex-smoker [facility] Start: 02-05-1958 End: 04-19-2022 History of tobacco use Current smoker [facility] Start: 10-15-2020 End: 08-11-2022 Tobacco use panel [facility] Adult Depression Screening Assessment 0 [facility] Start: 05-18-2024 [facility] smoker [facility] Start: 05-18-2024 Sex Male (finding) [facility] Medical Equipment Procedure Code Equipment Code Equipment Origin al Text Equipment Identifier Dates Ligation clip, synthetic polymer, non-bioabsorbable [id number] FDA Start: 12-08-2020 Patch Vascu-Guar d Taper Bovine Pericardial 8x.8cm [facility] [place] - [id number] Start: 03-01-2016 Comment on above: Description: Vascu G uard Patch Graft Patch Vascu-Guar d Taper Bovine Pericardial 8x.8cm [facility] [place] - [id number] Start: 03-01-2016 Comment on above: Description: Vascu G uard Patch Graft Functional Status Date Assessment Result Facility 04-13-2016 Are you deaf, or do you have serious difficulty hearing No 04/13/2016 2:31 PM Kwan Diehl APRN.FRETTED INSTRUMENT REPAIRER No [facility] Work Phone: 04-13-2016 Are you blind, or do you have serious difficulty seeing, even when wearing glasses No 04/13/2016 2:31 PM Kwan Diehl, STACY.FRETTED INSTRUMENT REPAIRER No [facility] 04-13-2016 Do you have serious difficulty walking or climbing stairs No 04/13/2016 2:31 PM Kwan Diehl, IN STORE REPRESENTATIVE.FRETTED INSTRUMENT REPAIRER No [facility] 04-13-2016 Do you have difficul ty dressing or bathing Yes 04/13/2016 2:31 PM Kwan Diehl APRN.FRETTED INSTRUMENT REPAIRER Yes [facility] 04-13-2016 Because of a physica l, mental, or emotional condition, do you have difficulty doing errands alone such as visiting a physician's office or shopping Yes 04/13/2016 2:31 PM Kwan Diehl APRN.FRETTED INSTRUMENT REPAIRER Yes [facility] Mental Status Date Assessment Result Facility 05-20-2021 Cognitive function Voice/Name [facility] Work Phone: 04-13-2016 Because of a physica l, mental, or emotional condition, do you have serious difficulty concentrating, remembering, or making decisions No 04/13/2016 2:31 PM ASHLEY Richardson Kwan M, IN STORE REPRESENTATIVE.FRETTED INSTRUMENT REPAIRER No [facility] Clinical Notes 04-11-2016 to 07-03-2024 Note Date & Type Note Facility 07-03-2024 Radiology Diagnostic study note [facility] Imaging Services [address] [place] [address] CTA Head AND Neck W/ Contrast MR#: [id number] Acct: [id number] Name: RAMONITA EL Rep #: [id number] : 1940 M 84 From: Anthony Berrios MD PCP: Karla Baron, UPP[employer] BURNISHER-C Status: REG C LI Study:CTA Head AND Neck W/ Contrast Date of E xam: 07/03/24 Exam# [id number] Ordering Dr: Barney Strong PROCEDURE: CTA HEAD AND NECK W/ CONTRAST 07/03/2024 REASON FOR EXAM: SEVERE R ICA STENOSIS TECHNIQUE: CTA imaging of the head and neck from the aortic arch to the skull vertex with out contrast and with intravenous contrast. Multiplanar and multisequence images were obtained. One or more dose reduction techniques were used (e.g., Automated exposure control, adjustment of the mA and/or kV according to patient size, use of iterative reconstruction technique). RADIATION DOSE SUMMARY: CTDlvol: 26 mGy DLP: 1516.65 mGycm COMPARISON: None FINDINGS: 9 mm hypodensity in the left lobe of the thyroid. Aortic Arch: Normal size and branching pattern. Mild atherosclerotic plaque. Brachiocephalic and Subclavians: Mild atherosclerotic plaque without significantstenosis. RIGHT Carotid: Right CCA: Mild calcified and soft plaque. Right ICA: Marked degree of calcific plaques. Maximum stenosis (NASCET): Greater than 90% % Right ECA: Unremarkable. LEFT Carotid: Left CCA: Mild calcified and soft plaque. Left ICA: Marked degree of calcific plaques. Maximum stenosis (NASCET): Greater than 90% % Left ECA: Unremarkable. Vertebrals: Dominant left vertebral artery. RIGHT Vertebral: Calcific plaques. LEFT Vertebral: Calcific plaques. Anatomy: [place] anatomy is normal. Aneurysm or avm: No intracranial aneurysms or large vascular malformations are identified. Anterior cerebral arteries: Unremarkable: Middle cerebral arteries: Unremarkable. Basilar artery: Unremarkable. Posterior cerebral arteries: Unremarkable. Other major branches of the posterior circulation: Unremarkable. Major venous structures: Unremarkable. Other findings: Neck: Lungs: Bones: CT/CTA Head AND Neck W/ Contrast IMPRESSION: High-grade stenosis involving both internal carotid arteries. Reading Location: [id number] CC: RAYO Baron; KRISTI Garza ~ Simulation Developer: Signed [facility] 06-24-2024 Note HNO ID: [id number] Author: KARLA BARON APRN.FRETTED INSTRUMENT REPAIRER Service: ? Author Type: Nurse Practitioner Type: Progress Notes Filed: 06/24/2024 22:08 Note Text: This is a 84 year old male who presents today with: Ramonita is an 84-year-old male with a history of chronic pain, presenting for follow-up after vascular testing and pain management evaluation. HISTORY OF PRESENT ILLNESS: Chronic Pain: - Pain management by Dr. Fitzgerald; increased gabapentin dosage, which is well-tolerated. - Prescribed tramadol but has not used it yet; hesitant due to potential side effects. - Severe pain in the left knee, worse than other areas; requires assistance with leg movement, especially when getting into a car. - Pain exacerbated by prolonged activity, such as woodworking for 4-5 hours or lawn work. - Scheduled to see Dr. Fitzgerald again in a month but unsure about continuing visits. Vascular Concerns: - Recent vascular testing showed moderate circulation issues in the left leg and severe issues in the right leg. - CT scan scheduled for July 03, followed by a vascular surgeon appointment on July 10. - Considering surgery but has concerns due to past experiences of friends who had complications. - Previously attempted to address vascular issues years ago without success. Appetite Changes: - Good appetite but can only eat small portions (e.g., a quarter of a hamburger or one piece of pizza) before feeling full. - No associated abdominal pain or heartburn; takes medication for heartburn. - Eats frequently, mostly snacks. 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 cruciate tear, poss. 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 PM - PAST MEDICAL HISTORY OF 1981 laceration wrist, suicidal gesture Radius fracture 06/21/2013 See scanned documents [facility] Tobacco abuse 05/22/2013 Urinary calculus, unspecified 01/05 Renal stone right side; 3 episodes with stones altogether with extraction in 1960 PAST SURGICAL HISTORY Procedure Laterality Date ATHERECTOMY, FEMORAL-POPLITEAL 09/28/2009 right COLONOSCOPY 12/26/2023 COLONOSCOPY FLX DX W/COLLJ SPEC WHEN PFRMD 06/21/2015 Colonoscopy CORONARY ENDARTERCOMY OPEN ANY METHOD 08/10/2006 Angioplasty with stent ECHOCARDIOGRAM 11/24/2020 11/25/[address] Puentes: LV size and LVSF WNL, EF 55%, structurally normal valves EGD 12/26/2023 ESOPHAGOGASTRODUODENOSCOPY TRANSORAL DIAGNOSTIC 06/21/2015 EGD PAST SURGICAL HISTORY OF 04/05/1999 Cautery and outfracture of inferior turbinates. Removal fx fragment PAST SURGICAL HISTORY OF 1960 renal stone extraction: PAST SURGICAL HISTORY OF dental extraction PICC LINE INSERT/CONSULT 04/11/2016 SLCTV CATHJ 3RD+ ORD SLCTV ABDL PEL/LXTR BRNCH 09/28/2009 VASECTOMY UNI/BI SPX W/POSTOP SEMEN EXAMS 10/1984 ALLERGIES Dust Mites, Lipitor [Atorvastatin], Lisinopril, Penicillins, Pletal [Cilostazol], and Pravastatin MEDICATIONS Current Outpatient Medications Medication Sig gabapentin (NEURONTIN) 300 mg capsule Take 300 mg by mouth two times a day. DR. FITZGERALD traMADol (ULTRAM) 50 mg tablet Take 50 mg by mouth two times a day as needed. DR. FITZGERALD finasteride (PROSCAR) 5 mg tablet Take 5 mg by mouth once daily. losartan (COZAAR) 25 mg tablet Take 1 tablet by mouth once daily. brimonidine 0.2 % drop, timolol maleate 0.5 % drop hydrOXYzine HCl (ATARAX) 25 mg tablet Take 1 tablet by mouth every 8 hours as needed for anxiety. metoprolol tartrate, short acting, (LOPRESSOR) 100 mg tablet Take 1 tablet by mouth two times a day. tiZANidine (ZANAFLEX) 4 mg tablet Take 0.5-1 tablets by mouth at bedtime as needed (muscle spasms/insomnia). amLODIPine (NORVASC) 10 mg tablet Take 1 tablet by mouth once daily. clopidogrel (PLAVIX) 75 mg tablet Take 1 tablet by mouth once daily. tamsulosin (FLOMAX) 0.4 mg Take 1 capsule by mouth once daily. pantoprazole DR (PROTONIX) 20 mg tablet TAKE 1 TABLET BY MOUTH 1/2 HOUR BEFORE BREAKFAST ON AN EMPTY STOMACH ONCE DAILY timolol maleate (TIMOPTIC) 0.5 % ophthalmic solution latanoprost (XALATAN) 0.005 % ophthalmic solution No current facility-administered medications for this visit. FAMILY HISTORY Problem Relation Age of Onset Cancer Mother age 42 leukemia None Father father ubknown to pt. Coronary Artery Disease Brother bypass Social History Tobacco Use Smoking status: Every (more content not included)... [facility] 06-03-2024 Evaluation note Diagnosis Onset Date Resolution Carotid stenosis, right acute A pril 2024 10:38am 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 acute June 03 10:38am [facility] Work Phone: 1(724) 756-279604-23-2025 Miscellaneous Notes* Telephone Encounter - Sandy Cardoza RN - 05/28/2024 2:54 PM EDT Called to confirm that fax went through. Per Smiley in scheduling, she received the paperwork and faxed it to [facility]. She gave their phone number of [phone]. Called and had to leave a msg. LM stating pt's name and and the need for referral and to confirm they had received the order. Left the pt's phone number and asked them to contact him. * Telephone Encounter - Sandy Cardoza RN - 05/28/2024 2:15 PM EDT Pt calling in and states he saw Karla Baron yesterday and she sent a referral to [facility] while he was in the office. He states he spoke with them and they did not receive any referralor paperwork. Called and spoke with scheduling for vascular surgery and they state they did not receive anything. Referral order, carotid artery ultrasound results and Karla's office note faxed to [facility] vascular surgery at [phone]. [facility] Telephone encounter Note * Telephone Encounter - Sandy Cardoza RN - 05/28/2024 2:54 PM EDT Called to confirm that fax went through. Per Smiley in scheduling, she received the paperwork and faxed it to [facility]. She gave their phone number of [phone]. Called and had to leave a msg. LM stating pt's name and and the need for referral and to confirm they had received the order. Left the pt's phone number and asked them to contact him. [facility]04-23-2025 Telephone encounter Note* Telephone Encounter - Sandy Cardoza RN - 05/28/2024 2:15 PM EDT Pt calling in and states he saw Karla Baron yesterday and she sent a referral to [facility] while he was in the office. He states he spoke with them and they did not receive any referralor paperwork. Called and spoke with scheduling for vascular surgery and they state they did not receive anything. Referral order, carotid artery ultrasound results and Karla's office note faxed to [facility] vascular surgery at [phone]. [facility]04-22-2025 NoteHNO ID: [id number] Author: KARLA BARON APRN.[facility] Service: ? Author Type: Nurse Practitioner Type: Progress Notes Filed: 05/27/2024 17:23 Note Text: This is a 84 year old male who presents today with: Ramonita is an 84-year-old male with a history of carotid artery stenosis and peripheral vascular disease, presenting for evaluation of bilateral leg pain and follow-up on recent emergency department visits. HISTORY OF PRESENT ILLNESS: Bilateral Leg Pain: - Chronic pain in bilateral lower extremities, from feet to knees, worsening over several years. - Describes pain as pretty bad and all over. - Left leg requires assistance for movement. - Believes pain is due to poor circulation. - Reports numbness and tingling intermittently. - Taking Tylenol 500 mg TID with minimal relief. - Has undergone two surgeries for leg pain in the past, with no relief. - Seen by two surgeons who reportedly stated there was nothing more they could do. - Has seen brake holder in the past but is reluctant to continue due to lack of improvement. Carotid Artery Stenosis: Recently found to have >70% stenosis on the right side. Advised to schedule with vascular; however patient has not done this. - Denies experiencing any symptoms related to carotid artery stenosis. Recent Emergency Department Visits: - Four visits to the emergency department since . - Most recent visit was last week at [facility] for a medication lodged in the throat. Pt reports that he vomited it out prior to ER arrival. EKG was without any signs of STEMI. CBC without leukocytosis, severe anemia, thrombocytopenia. Chest x-ray was unremarkable for pulmonary edema, pneumothorax, pneumonia, or other focal cardiopulmonary abnormality. CMP without evidence of significant electrolyte abnormalities, anion gap, acute kidney injury. Troponins were negative. He was given prophylactic antibiotics to be sure that he did not develop an aspiration pneumonia. Sleep Disturbances: - Reports interrupted sleep, waking up multiple times during the night. - Occasionally gets up to watch TV or eat a snack before returning to bed. - Feels better when able to sleep well. 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 cruciate tear, poss. 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 PMH - PAST MEDICAL HISTORY OF 1981 laceration wrist, suicidal gesture Radius fracture 06/21/2013 See scanned documents [facility] Tobacco abuse 05/22/2013 Urinary calculus, unspecified 01/05 Renal stone right side; 3 episodes with stones altogether with extraction in 1960 PAST SURGICAL HISTORY Procedure Laterality Date ATHERECTOMY, FEMORAL-POPLITEAL 09/28/2009 right COLONOSCOPY 12/26/2023 COLONOSCOPY FLX DX W/COLLJ SPEC WHEN PFRMD 06/21/2015 Colonoscopy CORONARY ENDARTERCOMY OPEN ANY METHOD 08/10/2006 Angioplasty with stent ECHOCARDIOGRAM 11/24/2020 11/25/[address] Puentes: LV size and LVSF WNL, EF 55%, structurally normal valves EGD 12/26/2023 ESOPHAGOGASTRODUODENOSCOPY TRANSORAL DIAGNOSTIC 06/21/2015 EGD PAST SURGICAL HISTORY OF 04/05/1999 Cautery and outfracture of inferior turbinates. Removal fx fragment PAST SURGICAL HISTORY OF 1960 renal stone extraction: PAST SURGICAL HISTORY OF dental extraction PICC LINE INSERT/CONSULT 04/11/2016 SLCTV CATHJ 3RD+ ORD SLCTV ABDL PEL/LXTR BRNCH 09/28/2009 VASECTOMY UNI/BI SPX W/POSTOP SEMEN EXAMS 10/1984 ALLERGIES Dust Mites, Lipitor [Atorvastatin], Lisinopril, Penicillins, Pletal [Cilostazol], and Pravastatin MEDICATIONS Current Outpatient Medications Medication Sig gabapentin (NEURONTIN) 100 mg capsule Start one pill by mouth at bedtime X 2 nights, then increase to taking medication twice daily for 2 days, then increase medication three times daily thereafter. finasteride (PROSCAR) 5 mg tablet Take 5 mg by mouth once daily. losartan (COZAAR) 25 mg tablet Take 1 tablet by mouth once daily. brimonidine 0.2 % drop, timolol maleate 0.5 % drop hydrOXYzine HCl (ATARAX) 25 mg tablet Take 1 tablet by mouth every 8 hours as needed for anxiety. metoprolol tartrate, short acting, (LOPRESSOR) 100 mg tablet Take 1 tablet by mouth two times a day. tiZANidine (ZANAFLEX) 4 mg tablet Take 0.5-1 tablets by mouth at bedtime as needed (muscle spasms/insomnia). amLODIPine (NORVASC) 10 mg tablet Take 1 tablet (more content not included)... [facility]04-22-2025 History of Present illness Narrative* Karla Baron APRN.[employer] INSTRUMENT REPAIRER - 05/27/2024 5:16 PM EDT This is a 84 year old male who presents today with: Ramonita is an 84-year-old male with a history of carotid artery stenosis and peripheral vascular disease, presenting for evaluation of bilateral leg pain and follow-up on recent emergency department visits. HISTORY OF PRESENT ILLNESS: Bilateral Leg Pain: - Chronic pain in bilateral lower extremities, from feet to knees, worsening over several years. - Describes pain as pretty bad and all over. - Left leg requires assistance for movement. - Believes pain is due to poor circulation. - Reports numbness and tingling intermittently. - Taking Tylenol 500 mg TID with minimal relief. - Has undergone two surgeries for leg pain in the past, with no relief. - Seen by two surgeons who reportedly stated there was nothing more they could do. - Has seen brake holder in the past but is reluctant to continue due to lack of improvement. Carotid Artery Stenosis: Recently found to have >70% stenosis on the right side. Advised to schedule with vascular; however patient has not done this. - Denies experiencing any symptoms related to carotid artery stenosis. Recent Emergency Department Visits: - Four visits to the emergency department since . - Most recent visit was last week at [facility] for a medication lodged in the throat. Pt reports that he vomited it out prior to ER arrival. EKG was without any signs of STEMI. CBC without leukocytosis, severe anemia, thrombocytopenia. Chest x-ray was unremarkable for pulmonary edema, pneumothorax, pneumonia, or other focal cardiopulmonary abnormality. CMP without evidence of significant electrolyte abnormalities, anion gap, acute kidney injury. Troponins were negative. He was given prophylactic antibiotics to be sure that he did not develop an aspiration pneumonia. Sleep Disturbances: - Reports interrupted sleep, waking up multiple times during the night. - Occasionally gets up to watch TV or eat a snack before returning to bed. - Feels better when able to sleep well. 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 cruciate tear, poss. 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 PMH - PAST MEDICAL HISTORY OF 1981 laceration wrist, suicidal gesture Radius fracture 06/21/2013 See scanned documents [facility] Tobacco abuse 05/22/2013 Urinary calculus, unspecified 01/05 Renal stone right side; 3 episodes with stones altogether with extraction in 1960 PAST SURGICAL HISTORY Procedure Laterality Date ATHERECTOMY, FEMORAL-POPLITEAL 09/28/2009 right COLONOSCOPY 12/26/2023 COLONOSCOPY FLX DX W/COLLJ SPEC WHEN PFRMD 06/21/2015 Colonoscopy CORONARY ENDARTERCOMY OPEN ANY METHOD 08/10/2006 Angioplasty with stent ECHOCARDIOGRAM 11/24/2020 11/25/[address] Puentes: LV size and LVSF WNL, EF 55%, structurally normal valves EGD 12/26/2023 ESOPHAGOGASTRODUODENOSCOPY TRANSORAL DIAGNOSTIC 06/21/2015 EGD PAST SURGICAL HISTORY OF 04/05/1999 Cautery and outfracture of inferior turbinates. Removal fx fragment PAST SURGICAL HISTORY OF 1960 renal stone extraction: PAST SURGICAL HISTORY OF dental extraction PICC LINE INSERT/CONSULT 04/11/2016 SLCTV CATHJ 3RD+ ORD SLCTV ABDL PEL/LXTR BRNCH 09/28/2009 VASECTOMY UNI/BI SPX W/POSTOP SEMEN EXAMS 10/1984 ALLERGIES Dust Mites, Lipitor [Atorvastatin], Lisinopril, Penicillins, Pletal [Cilostazol], and Pravastatin MEDICATIONS Current Outpatient Medications Medication Sig gabapentin (NEURONTIN) 100 mg capsule Start one pill by mouth at bedtime X 2 nights, then increase to taking medication twice daily for 2 days, then increase medication three times daily thereafter. finasteride (PROSCAR) 5 mg tablet Take 5 mg by mouth once daily. losartan (COZAAR) 25 mg tablet Take 1 tablet by mouth once daily. brimonidine 0.2 % drop, timolol maleate 0.5 % drop hydrOXYzine HCl (ATARAX) 25 mg tablet Take 1 tablet by mouth every 8 hours as needed for anxiety. metoprolol tartrate, short acting, (LOPRESSOR) 100 mg tablet Take 1 tablet by mouth two times a day. tiZANidine (ZANAFLEX) 4 mg tablet Take 0.5-1 tablets by mouth at bedtime as needed (muscle spasms/insomnia). amLODIPine (NORVASC) 10 mg tablet Take 1 tablet by mouth once daily. clopidogrel (PLAVIX) 75 mg tablet Take 1 tablet by mouth once daily. tamsulosin (FLOMAX) 0.4 mg Take 1 capsule by mouth once daily. pantoprazole DR (PROTONIX) 20 mg tablet TAKE 1 TABLET BY MOUTH 1/2 HOUR BEFORE BREAKFAST ON AN EMPTY STOMACH ONCE DAILY timolol maleate (TIMOPTIC) 0.5 % ophthalmic solution latanoprost (XALATAN) 0.005 % ophthalmic solution No current facility-administered medications for this visit. FAMILY HISTORY Problem Relation Age of Onset Cancer Mother age 42 leukemia None Father father ubknown to pt. Coronary Artery Disease Brother bypass Social History Tobacco Use Smoking status: Every Day Current packs/day: 0.00 Average packs/day: 1 pack/day for 63.2 years (63.2 ttl pk-yrs) Types: Cigarettes Start date: 02/05/1959 Last attempt to quit: 04/19/2022 Years since quittin.1 Smokeless tobacco: Never Vaping Use Vaping status: Never Used Substance Use Topics Alcohol use: Yes Comment: Socially Drug use: No REVIEW OF SYSTEMS Constitutional: (+) sleep disturbance Musculoskeletal: (+) bilateral leg pain, (+) difficulty ambulating Neurological: (+) intermittent leg paresthesias EXAM: BP 138/64 Pulse 64 Resp 16 Wt 73.5 kg (162 lb) SpO2 94% BMI 25.37 kg/m PHYSICAL EXAM: General Appearance: Well appearing, alert, in no acute distress, well-hydrated, well nourished.. Skin: Skin color, texture, turgor normal, no suspicious rashes or lesions. Head: Normocephalic, no masses, lesions, tenderness or abnormalities. Eyes: Anicteric sclera. Extraocular movements are intact. . Neck: Positive findings: bruit on the right. Lungs: Lungs clear to auscultation. No wheezing, rhonchi, rales.. Heart: RRR without murmur, gallop, or rubs. No ectopy. Extremities: No deformities, edema. Neurologic: Gait normal. ASSESSMENT/PLAN 1. Stenosis of right carotid artery (I65.21) - Carotid artery stenosis with over 70% occlusion. - Discussed risks of stroke due to significant blockage. - Patient initially hesitant about vascular referral but agreed after discussion. - Referral to vascular surgery at [facility]; faxed referral and previous study notes. - Advised patient on the importance of timely evaluation and potential surgical intervention. 2. Peripheral vascular disease (I73.9) - Continue Tylenol 500 mg, may increase to two tablets (1000 mg) three times daily as needed. - Discussed potential referral to pain management if current treatment is insufficient. 3. Chronic pain syndrome (G89.4) - Chronic leg pain secondary to peripheral vascular disease. - Initiated gabapentin as outlined above. - Discussed potential referral to pain management specialists Dr. Fitzgerald and Dr. Gonzalez in [place] if pain persists. - Follow-up in one month to evaluate pain control and consider further management options. 4. Thyroid nodule (E04.1) - Incidental finding of thyroid nodule on previous imaging. - Ordered repeat thyroid ultrasound to further evaluate the nodule. - Scheduled ultrasound during checkout. 5. Nicotine dependence, cigarettes, uncomplicated (F17.210) - Acknowledged patient's smoking history contributing to vascular issues. - Discussed the impact of smoking on vascular health and encouraged smoking cessation. 6. Insomnia, unspecified type (G47.00) - Ongoing issues with interrupted sleep. - Monitor sleep patterns and report any changes at follow-up. Good sleep hygiene. Discussed treatment plan and patient voices understanding. Patient's questions answered appropriately. Medications and potential side effects were discussed and patient voices understanding. Return to the office as scheduled or as needed for worsening/no improvement. Karla Baron APRN.[employer] INSTRUMENT REPAIRER Recording using Passman software for draft documentation of the visit was discussed with the patient/authorized phlebotomy services representative; all questions welcomed and answered. Patient/authorized phlebotomy services representative agreed to proceed [facility] Instructions* Patient Instructions* Karla Baron APRN.CNP - 05/27/2024 11:48 AM EDT Gabapentin 100 mg has been prescribed for your leg pain. For the first 2 nights, take one tablet atbedtime only. After that, take one tablet in the morning and one at bedtime. If you tolerate it well for 2 days, you may increase to 3 times a day (morning, afternoon, and night), but if twice daily controls your pain, you may continue with that dosing. Be aware that gabapentin may cause drowsiness initially. A referral to a vascular specialist at [facility] has been faxed along with your study notes.If you do not hear from them, please call our office. A dedicated thyroid ultrasound is ordered to evaluate the nodule on your thyroid gland. Please schedule the test. You may continue using Tylenol for pain as needed (up to 1,000 mg three times a day). A follow-up appointment is planned in one month to review how the new medication is working. If youexperience any side effects or your pain worsens before then, please contact our office. If gabapentin does not adequately control your pain, we may consider a referral for pain management(e.g., Dr. Fitzgerald or Dr. Gonzalez in [facility]). documented in this encounterL[facility]04-[facility] Radiology Diagnostic study note [facility] Imaging Services [address] [place] [address] [id number] Chest 1 View (Portable) MR#: [id number] Acct: [id number] Name: RAMONITA EL Rep #: [id number] : 1940 M 84 From: Gerald Flynn MD PCP: Karla Baron, [facility] [facility] [facility] Status: REG E R Study:Chest 1 View (Portable) Date of Exam: 05/18/24 Exam# [id number] Ordering Dr: Gagan Matthews DO PROCEDURE: CHEST 1 VIEW (PORTABLE) 05/18/2024 REASON FOR EXAM: SOB TECHNIQUE: Frontal view of the chest. COMPARISON: None. FINDINGS: The cardiac silhouette is within normal limits. Streaky changes seen at the right lung base could represent subsegmental atelectasis. Pulmonary vascular congestion is noted. The lungs are some hyperlucent and hyperexpanded. RAD/Chest 1 View (Portable) IMPRESSION: Pulmonary vascular congestion/CHF. Correlate clinically. Streaky changes right lung base could represent subsegmental atelectasis. Pneumonia to be ruled out. Reading Location: [id number] CC: RAYO Baron; Dr. Lucien Matthews DO ~ Simulation Developer: Signed [facility]04-13-2025 Discharge summary [facility] Medical Records Department [address] [place] [address] Emergency Department Summary 05/18/24 MR#: [id number] Acct: [id number] Name: RAMONITA EL Rep #:[id number] : 1940 84 From: Lucien Post PCP: RAYO Pillai Status:REG E R Location: ED HPI History of Present Illness Chief Complaint: Shortness of Breath 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) Encounter for pre-operative cardiovascular clearance Hypertrophy of prostate with urinary obstruction 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 Chronic pancreatitis Atherosclerosis of coronary artery without angina pectoris Essential hypertension Alcoholism Home Medications ?Medication ?Instructions ?Recorded ?Last Taken ?Type amlodipine 10 mg tablet 10 mg PO DAILY 05/02/1604/25 04:00 History clopidogrel 75 mg tablet 75 mg PO DAILY 05/02/1611/06 History tamsulosin 0.4 mg capsule (Flomax) 0.4 mg PO DAILY 12/07/20 History hydroxyzine HCl 25 mg tablet 25 mg PO DAILY PRN rash 1 Unknown History metoprolol tartrate 100 mg tablet 100 mg PO BID 12/08/20 04:00 History pantoprazole 20 mg tablet,delayed 20 mg PO DAILY 11/0912/07/20 History release (Protonix) ibuprofen 600 mg tablet 600 mg PO Q6H PRN pain #20 t abs 12/08/20 Unknown Rx ciprofloxacin HCl 500 mg tablet 500 mg PO BID #6 TABLE TS 02/11/24 Unknown Rx levofloxacin 750 mg tablet 750 mg PO DAILY 5 days #5 t abs 05/18/24 Unknown Rx Allergy/AdvReac Type Severity Reaction Status Date / Time Penicillins Allergy Hives Verified 01/16/24 04:02 Surgical History History of angioplasty of peripheral vessel (09/28/09) History of coronary artery stent placement (08/10/06) Social History Smoking Status: Heavy Smoker (>10/day) EXAM Physical Exam Const Vital Signs: 05/18/24 05:24 05/18/24 05:30 05/18/24 05:39 Temperature 98.2 F Temperature Source Oral Pulse Rate 102 H Respiratory Rate 22 H Respiratory Effort Normal Blood Pressure 213/86 H Blood Pressure Mean 128 Pulse Ox 97 95 Oxygen Delivery Method Room Air Room Air Room Air 05/18/24 06:24 05/18/24 06:28 05/18/24 06:49 Temperature 98.1 F 98 F Temperature Source Oral Oral Pulse Rate 63 61 65 Respiratory Rate 18 18 19 H Respiratory Effort Blood Pressure 167/70 H 158/63 H 153/64 H Blood Pressure Mean 102 94 93 Pulse Ox 97 92 92 Oxygen Delivery Method Room Air Room Air Room Air MDM MDM MDM Narrative Medical decision making narrative: HISTORY OF PRESENT ILLNESS: Chief complaint: Shortness of breath 84-year-old male history of of COPD, CAD status post stent, peripheral artery disease, history of smoking, hypertension, alcoholism, presents with shortness of breath. The patient states he choked onhis pill. He then vomited back up. He states now short of breath. When asked if he has chest pain patient says a little bit. He endorses tightness in his lower sternal area. Notes he feels better now but still feels slightly short of breath. The patient denies recent surgery in the last 4 weeks or immobilization in the last 3 days, denies previous diagnosis of DVT or PE, hemoptysis, unilateral leg swelling or malignancy with treatment the last 6 months or palliative. No estrogen use noted. REVIEW OF SYSTEMS: Pertinent positives: Shortness of breath, vomiting Pertinent negatives: Leg swelling, syncope, fever PHYSICAL EXAM: Nursing triage notes reviewed, Vital signs reviewed Constitutional: please see [facility] HENT: MMM Eyes: Pupils equal round and reactive to light, Extraocular muscles intact Neck: No stridor, no JVD, full neck ROM Lungs: Clear to auscultation, No wheezing or rales. No increased work of breathing, no conversational dyspnea, no accessory muscle use, no nasal flaring. No respiratory distress noted Heart: Regular rate and rhythm, No murmurs, No rubs and No gallops, 2+ distal pulses (radial, femoral, posterior tibial) in all extremities Abdomen: Soft, there is no tenderness, rigidity, rebound or guarding, no obviousperitoneal signs, no palpable pulsatile abdominal masses, no auscultated abdominal bruit : No CVAT Extremities: No edema Neuro: No new focal neurological deficits, cranial nerves II through XII intact,5/5 strength in allpresent extremities. Intact sensation to light touch in all present extremities, 2+ reflexes bilateral patella tendons. Skin: No rash or lesions noted MEDICAL DECISION MAKING: Chief Complaint: please see [facility] External records reviewed: Reviewed prior medications. Reviewed past medical history. Reviewed prior cardiovascular testing. Reviewed echocardiogram from 2020. . Showed ejection fraction of 55%. No regional wall motion abnormalities Factors affecting care: As per HPI Social determinants of health: History of smoking History obtained from others: none Consults: none [facility] Narrative: The patient was initially hypertensive with a blood pressure 113/86, tachycardicwith a heart rate of 102, tachypneic with respiratory 22 otherwise afebrile. Saturating 97% on room air. Exam with clear lungs, no wheezing. No rales. No lower extremity edema. No stigmata of VTE. I considered the following differential diagnosis: Aspiration, pneumonia, COPD exacerbation, ACS, arrhythmia, anemia ALL IMAGES (IF OBTAINED) HAVE BEEN PERSONALLY REVIEWED AND INTERPRETED BY MYSELF. EKG with normal sinus rhythm, normal axis, prolonged GA interval, first-degree block, QTc 459, no obvious STEMI, occasional PVCs CBC without leukocytosis, severe anemia, no thrombocytopenia. I have personally reviewed the patient's chest x-ray. Chest x-ray is unremarkable for pulmonary edema, pneumothorax, pneumonia or focal cardiopulmonary abnormality. BMP without evidence of significant electrolyte abnormalities, no anion gap, no acute kidney injury. I have personally reviewed the patient's chest x-ray. Chest x-ray is unremarkable for pulmonary edema, pneumothorax, pneumonia or focal cardiopulmonary abnormality. High-sensitivity troponin is negative, no evidence of myocardial ischemia (low suspicion for ACS assuch no indication to order treatment for troponin) On re-evaluation patient blood pressure improved 167/70, heart rate improved to 63, respiratory rate 18. He felt more comfortable. Suspect the patient's presentation secondary to aspiration of a pilland GI contents Will give prophylactic antibiotics (or levofloxacin) to sure. Does not develop aspiration pneumonia. The patient and/or family, caregivers express understanding. The patient and/orfamily, caregivers agrees with the plan. Shared decision making: I will have a discussion with the patient and or visitors regarding risk/benefits of further testing or admission. They will be made aware of of the risk/benefits inherent in this decision they will be given the opportunity to voice understanding. Total critical care time today provided was at least 0 minutes. This excludes separately billable procedures. Critical care time (if documented) is secondary to the patient having high probability ofclinically significant/life threatening deterioration in the patient's condition which required my urgent intervention. Impression: 1. Shortness of breath 2. Aspiration Dispo: Signed out to a.m. physician This note was generated with MyCare dictation software. It may contain incorrectwords, spelling, and punctuation that were not noted in review of the chart prior to signing. Lab Data Labs: Laboratory Results - last 24 hr 05/18/24 05:35 WBC 9.3 RBC 5.02 Hgb 16.0 Hct 44.9 MCV 89.4 MCH 31.9 MCHC 35.6 RDW Std Deviation 43.2 RDW Coeff of Krishna 13.2 Plt Count 269 MPV 10.3 Immature Gran % (Auto) 0.300 Neut % (Auto) 75.2 H Lymph % (Auto) 14.4 L Barrow % (Auto) 8.5 Eos % (Auto) 0.8 Baso % (Auto) 0.8 Absolute Neuts (auto) 7.0 Absolute Lymphs (auto) 1.33 Nucleated RBC % 0 Sodium 138 Potassium 3.8 Chloride 103 Carbon Dioxide 18.4 L Anion Gap 16 H BUN 14 Creatinine 0.81 Estim Creat Clear Calc 66.85 Est GFR (MDRD) Non-Af 87 BUN/Creatinine Ratio 16.6 Glucose 131 H Calcium 9.5 Troponin T High Sens 17 Discharge Plan Triage Chief Complaint: Shortness of Breath ED Provider: Lucien Matthews Dx/Rx/DC Orders Clinical Impression: Aspiration into airway Instructions: Dysphagia Aspiration Prescriptions: New levofloxacin 750 mg tablet 750 mg PO DAILY 5 Days Qty: 5 0RF No Action hydroxyzine HCl 25 mg tablet 25 mg PO DAILY PRN (Reason: rash) metoprolol tartrate 100 mg tablet 100 mg PO BID Patient Comments: TAKE 1 TABLET BY MOUTH TWICE DAILY. pantoprazole [Protonix] 20 mg tablet,delayed release (DR/EC) 20 mg PO DAILY clopidogrel 75 MG tablet 75 mg PO DAILY tamsulosin [Flomax] 0.4 MG capsule 0.4 mg PO DAILY amlodipine 10 MG tablet 10 mg PO DAILY ibuprofen 600 mg tablet 600 mg PO Q6H PRN (Reason: pain) Qty: 20 0RF ciprofloxacin HCl 500 mg tablet 500 mg PO BID Qty: 6 0RF Primary Care Provider: Karla Baron NP Referrals: Karla Baron NP, [facility] [Primary Care Provider] - Activity Restrictions/Additional Instructions: Thank you for trusting us with your care today! Your labs and images were reassuring. Your presentation is likely secondary to aspiration. Please take Tylenol (2 pills, 650 mg), ibuprofen (2 pills, 400 mg) every 6 hoursas needed for pain and fever control. Will prescribe a short course of antibiotics to cover for aspiration pneumonia. Pneumonia as resultof aspirating stomach contents or vomit. Please return to the emergency department if your symptoms change or worsen. Please follow with your primary care physician for further outpatient evaluationand management. Print Language: Maltese Disposition Disposition: Home, Self Care What to do if you have Problems For any increased pain, shortness of breath, bleeding, nausea or vomiting, chestpain, or any unexpected problems, contact your Primary Care Provider. Call [facility] ([phone]) or report tothe closest Emergency Room. Call 911 if necessary. 05/18/24 [id number] Cosigner Signature (if applicable): CC: RAYO Baron ~ Signed [facility]01-28-2025 Miscellaneous Notes* Telephone Encounter - Sandy Cardoza RN - 03/04/2024 8:21 AM EST Pt returned the call and notified of results and Karla Baron's explanations. He is notified of need to repeat PSA lab in a month and transferred to [facility] in scheduling to set up carotid ultrasound. * Telephone Encounter - Kay Anguiano RN - 03/03/2024 7:12 PM EST Called and left a voicemail for the Patient to call back and ask for a nurse to receive the providers message. Kay Anguiano RN * Telephone Encounter - Karla Baron APRN.MARK - 03/03/2024 6:42 PM EST Can please let patient know that I received his labs. He likes his labwork explained in detail withhim. Please do not leave general message. His cholesterol labwork is stable. His bad cholesterol is still elevated, but it is improved from the last time we checked it (he went from 174 to 150.). His healthy cholesterol is near his goal. In men we like it to be over 40 and he was 39. Please work on healthy diet and increasing exercise/activity. His electrolytes, kidney function, glucose and liver enzymes were all normal. His PSA (prostate enzyme was elevated). I suspect this is from all the urinary issues that he has recently been through. I would like to have him check this again in a month to see if it has normalized. The order is in and he just needs to stop in and get it completed. His blood count (red blood cells, white blood cells, and platelets) were all normal. After he left his appointment, when reviewing his chart, I noticed that is has been several years since he had an ultrasound done of the carotid arteries in the neck. I also put an order in to get this done. [facility] Telephone encounter Note * Telephone Encounter - Sandy Cardoza RN - 03/04/2024 8:21 AM EST Pt returned the call and notified of results and Karla Baron's explanations. He is notified of need to repeat PSA lab in a month and transferred to [facility] in scheduling to set up carotid ultrasound. [facility]01-27[facility] Telephone encounter Note* Telephone Encounter - Kay Anguiano RN - 03/03/2024 7:12 PM EST Called and left a voicemail for the Patient to call back and ask for a nurse to receive the providers message. Kay Anguiano RN [facility]01-27-2025 Telephone encounter Note* Telephone Encounter - Karla Baron APRN.MARK - 03/03/2024 6:42 PM EST Can please let patient know that I received his labs. He likes his labwork explained in detail withhim. Please do not leave general message. His cholesterol labwork is stable. His bad cholesterol is still elevated, but it is improved from the last time we checked it (he went from 174 to 150.). His healthy cholesterol is near his goal. In men we like it to be over 40 and he was 39. Please work on healthy diet and increasing exercise/activity. His electrolytes, kidney function, glucose and liver enzymes were all normal. His PSA (prostate enzyme was elevated). I suspect this is from all the urinary issues that he has recently been through. I would like to have him check this again in a month to see if it has normalized. The order is in and he just needs to stop in and get it completed. His blood count (red blood cells, white blood cells, and platelets) were all normal. After he left his appointment, when reviewing his chart, I noticed that is has been several years since he had an ultrasound done of the carotid arteries in the neck. I also put an order in to get this done. [facility]01-24-[facility] Instructions* Patient Instructions* Karla Baron APRN.CNP - 02/29/2024 2:21 PM EST Try the CeraVe, Cetophil or Aveeno. Continue the same medication. We'll let you know when we receive the labwork results. If the shoulder starts bothering you again, there is a referral placed to ortho that you can schedule. documented in [facility]25 NoteHNO ID: [id number] Author: KARLA BARON APRN.CNP Service: ? Author Type: Nurse Practitioner Type: Progress Notes Filed: 02/29/2024 15:54 Note Text: This is a 84 year old male who presents today with: Patient presents with: Recheck: 1 month BP check HISTORY OF PRESENT ILLNESS: Ramonita El is a 84 year old male. Patient presents with: Recheck: 1 month BP check Pt presents today for BP check. At last visit, his blood pressure as elevated. Refers that he is tolerating the medication well. Initially thought that he was getting a sore throat from the medication, but that is resolved. No chest pain/sob. No swelling in the feet/ankles. He was in urgent care with some right shoulder pain. This has improved. He continues to have problem sleeping. He goes to sleep anywhere from 4:00pm to 7:00 pm. Then he cannot sleep overnight. Admits that he has days/nights messed up. BPH Did see Dr. Johnson. Started on proscar. Urine stream improved. 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 cruciate tear, poss. 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 PMH - PAST MEDICAL HISTORY OF 1981 laceration wrist, suicidal gesture Radius fracture 06/21/2013 See scanned documents [facility] Tobacco abuse 05/22/2013 Urinary calculus, unspecified 01/05 Renal stone right side; 3 episodes with stones altogether with extraction in 1960 PAST SURGICAL HISTORY Procedure Laterality Date ATHERECTOMY, FEMORAL-POPLITEAL 09/28/2009 right COLONOSCOPY 12/26/2023 COLONOSCOPY FLX DX W/COLLJ SPEC WHEN PFRMD 06/21/2015 Colonoscopy CORONARY ENDARTERCOMY OPEN ANY METHOD 08/10/2006 Angioplasty with stent ECHOCARDIOGRAM 11/24/2020 11/25/[address] Puentes: LV size and LVSF WNL, EF 55%, structurally normal valves EGD 12/26/2023 ESOPHAGOGASTRODUODENOSCOPY TRANSORAL DIAGNOSTIC 06/21/2015 EGD PAST SURGICAL HISTORY OF 04/05/1999 Cautery and outfracture of inferior turbinates. Removal fx fragment PAST SURGICAL HISTORY OF 1960 renal stone extraction: PAST SURGICAL HISTORY OF dental extraction PICC LINE INSERT/CONSULT 04/11/2016 SLCTV CATHJ 3RD+ ORD SLCTV ABDL PEL/LXTR BRNCH 09/28/2009 VASECTOMY UNI/BI SPX W/POSTOP SEMEN EXAMS 10/1984 ALLERGIES Dust Mites, Lipitor [Atorvastatin], Lisinopril, Penicillins, Pletal [Cilostazol], and Pravastatin MEDICATIONS Current Outpatient Medications Medication Sig losartan (COZAAR) 25 mg tablet Take 1 tablet by mouth once daily. brimonidine 0.2 % drop, timolol maleate 0.5 % drop hydrOXYzine HCl (ATARAX) 25 mg tablet Take 1 tablet by mouth every 8 hours as needed for anxiety. metoprolol tartrate, short acting, (LOPRESSOR) 100 mg tablet Take 1 tablet by mouth two times a day. tiZANidine (ZANAFLEX) 4 mg tablet Take 0.5-1 tablets by mouth at bedtime as needed (muscle spasms/insomnia). amLODIPine (NORVASC) 10 mg tablet Take 1 tablet by mouth once daily. clopidogrel (PLAVIX) 75 mg tablet Take 1 tablet by mouth once daily. tamsulosin (FLOMAX) 0.4 mg Take 1 capsule by mouth once daily. pantoprazole DR (PROTONIX) 20 mg tablet TAKE 1 TABLET BY MOUTH 1/2 HOUR BEFORE BREAKFAST ON AN EMPTY STOMACH ONCE DAILY timolol maleate (TIMOPTIC) 0.5 % ophthalmic solution latanoprost (XALATAN) 0.005 % ophthalmic solution No current facility-administered medications for this visit. FAMILY HISTORY Problem Relation Age of Onset Cancer Mother age 42 leukemia None Father father ubknown to pt. Coronary Artery Disease Brother bypass Social History Tobacco Use Smoking status: Every Day Current packs/day: 0.00 Average packs/day: 1 pack/day for 63.2 years (63.2 ttl pk-yrs) Types: Cigarettes Start date: 02/05/1959 Last attempt to quit: 04/19/2022 Years since quittin.8 Smokeless tobacco: Never Vaping Use Vaping status: Never Used Substance Use Topics Alcohol use: Yes Comment: Socially Drug use: No EXAM: BP 138/74 Pulse 72 Resp 16 Wt 73 kg (161 lb) SpO2 95% BMI 25.22 kg/m? PHYSICAL EXAM: General Appearance: Well appearing, alert, in no acute distress, well-hydrated, well nourished.. Skin: Skin color, texture, turgor normal, no suspicious rashes or lesions. Head: Normocephalic, no masses, lesions, tenderness or abnormalities. Eyes: Anicteric sclera. P Extraocular movements are intact. . Lungs: Lungs clear to auscultation. No wheezing, rhonch (more content not included)...[facility]01-24-2025 History of Present illness Narrative* Karla Baron APRN.FRETTED INSTRUMENT REPAIRER - 02/29/2024 2:13 PM EST This is a 84 year old male who presents today with: Patient presents with: Recheck: 1 month BP check HISTORY OF PRESENT ILLNESS: Ramonita El is a 84 year old male. Patient presents with: Recheck: 1 month BP check Pt presents today for BP check. At last visit, his blood pressure as elevated. Refers that he is tolerating the medication well. Initially thought that he was getting a sore throat from the medication, but that is resolved. No chest pain/sob. No swelling in the feet/ankles. He was in urgent care with some right shoulder pain. This has improved. He continues to have problem sleeping. He goes to sleep anywhere from 4:00pm to 7:00 pm. Then he cannot sleep overnight. Admits that he has days/nights messed up. BPH Did see Dr. Johnson. Started on proscar. Urine stream improved. 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 cruciate tear, poss. 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 PMH - PAST MEDICAL HISTORY OF 1981 laceration wrist, suicidal gesture Radius fracture 06/21/2013 See scanned documents [facility] Tobacco abuse 05/22/2013 Urinary calculus, unspecified 01/05 Renal stone right side; 3 episodes with stones altogether with extraction in 1960 PAST SURGICAL HISTORY Procedure Laterality Date ATHERECTOMY, FEMORAL-POPLITEAL 09/28/2009 right COLONOSCOPY 12/26/2023 COLONOSCOPY FLX DX W/COLLJ SPEC WHEN PFRMD 06/21/2015 Colonoscopy CORONARY ENDARTERCOMY OPEN ANY METHOD 08/10/2006 Angioplasty with stent ECHOCARDIOGRAM 11/24/2020 11/25/[address] Puentes: LV size and LVSF WNL, EF 55%, structurally normal valves EGD 12/26/2023 ESOPHAGOGASTRODUODENOSCOPY TRANSORAL DIAGNOSTIC 06/21/2015 EGD PAST SURGICAL HISTORY OF 04/05/1999 Cautery and outfracture of inferior turbinates. Removal fx fragment PAST SURGICAL HISTORY OF 1960 renal stone extraction: PAST SURGICAL HISTORY OF dental extraction PICC LINE INSERT/CONSULT 04/11/2016 SLCTV CATHJ 3RD+ ORD SLCTV ABDL PEL/LXTR BRNCH 09/28/2009 VASECTOMY UNI/BI SPX W/POSTOP SEMEN EXAMS 10/1984 ALLERGIES Dust Mites, Lipitor [Atorvastatin], Lisinopril, Penicillins, Pletal [Cilostazol], and Pravastatin MEDICATIONS Current Outpatient Medications Medication Sig losartan (COZAAR) 25 mg tablet Take 1 tablet by mouth once daily. brimonidine 0.2 % drop, timolol maleate 0.5 % drop hydrOXYzine HCl (ATARAX) 25 mg tablet Take 1 tablet by mouth every 8 hours as needed for anxiety. metoprolol tartrate, short acting, (LOPRESSOR) 100 mg tablet Take 1 tablet by mouth two times a day. tiZANidine (ZANAFLEX) 4 mg tablet Take 0.5-1 tablets by mouth at bedtime as needed (muscle spasms/insomnia). amLODIPine (NORVASC) 10 mg tablet Take 1 tablet by mouth once daily. clopidogrel (PLAVIX) 75 mg tablet Take 1 tablet by mouth once daily. tamsulosin (FLOMAX) 0.4 mg Take 1 capsule by mouth once daily. pantoprazole DR (PROTONIX) 20 mg tablet TAKE 1 TABLET BY MOUTH 1/2 HOUR BEFORE BREAKFAST ON AN EMPTY STOMACH ONCE DAILY timolol maleate (TIMOPTIC) 0.5 % ophthalmic solution latanoprost (XALATAN) 0.005 % ophthalmic solution No current facility-administered medications for this visit. FAMILY HISTORY Problem Relation Age of Onset Cancer Mother age 42 leukemia None Father father ubknown to pt. Coronary Artery Disease Brother bypass Social History Tobacco Use Smoking status: Every Day Current packs/day: 0.00 Average packs/day: 1 pack/day for 63.2 years (63.2 ttl pk-yrs) Types: Cigarettes Start date: 02/05/1959 Last attempt to quit: 04/19/2022 Years since quittin.8 Smokeless tobacco: Never Vaping Use Vaping status: Never Used Substance Use Topics Alcohol use: Yes Comment: Socially Drug use: No EXAM: BP 138/74 Pulse 72 Resp 16 Wt 73 kg (161 lb) SpO2 95% BMI 25.22 kg/m PHYSICAL EXAM: General Appearance: Well appearing, alert, in no acute distress, well-hydrated, well nourished.. Skin: Skin color, texture, turgor normal, no suspicious rashes or lesions. Head: Normocephalic, no masses, lesions, tenderness or abnormalities. Eyes: Anicteric sclera. P Extraocular movements are intact. . Lungs: Lungs clear to auscultation. No wheezing, rhonchi, rales.. Heart: RRR without murmur, gallop, or rubs. No ectopy. Neurologic: Gait normal. ASSESSMENT/PLAN: 1. Primary hypertension - ICD9: 401.9, ICD10: I10 (primary diagnosis) - Controlled - Improving control - Continue current medications - Recommend home blood pressure monitoring, to bring results to next visit - Encouraged sodium restriction, DASH or Mediterranean diet - Recommend regular aerobic exercise 2. Primary insomnia - ICD9: 307.42, ICD10: F51.01 Discussed sleep hygiene. 3. Benign prostatic hyperplasia with lower urinary tract symptoms, symptom details unspecified - ICD9: 600.01, ICD10: N40.1 Continue per urology. 4. Acute pain of right shoulder - ICD9: 719.41, ICD10: M25.511 Improved. Aware that there is a pended ortho consult if symptoms return. Discussed treatment plan and patient voices understanding. Patient's questions answered appropriately. Medications and potential side effects were discussed and patient voices understanding. Return to the office as scheduled or as needed for worsening/no improvement. Karla Baron APRN.FRETTED INSTRUMENT REPAIRER documented [facility]01-[facility] Telephone encounter Note * Telephone Encounter - Sandy Cardoza RN - 02/27/2024 4:24 PM EST Pt returned the call and notified of prescription refill arriving tomorrow. Pt took a couple BP andreadings were 156/71 and 142/72. [facility]01-22-2025 Miscellaneous Notes* Telephone Encounter - Sandy Cardoza RN - 02/27/2024 4:24 PM EST Pt returned the call and notified of prescription refill arriving tomorrow. Pt took a couple BP andreadings were 156/71 and 142/72. * Telephone Encounter - Noemy Dubon - 02/27/2024 3:46 PM EST Please call patient , patient did return the call, we were on hold several minutes , advised patient I will send message for nurse to call back Please call patient [phone] * Telephone Encounter - Ashley Grant RN - 02/27/2024 3:25 PM EST This nurse called [facility] and Losartan medication is en route to patient, and is to be delivered to patient by tomorrow, by 4:50pm. This nurse attempted to contact patient to inform him of this, as well as obtain his BP reading from him. No answer. Message left for pt to call provider's office and ask for a nurse for this message. Ashley Grant RN * Telephone Encounter - Ashlye Grant RN - 02/27/2024 3:21 PM EST Patient calling in to check on status of his losartan medication refill. This nurse informed patient that script was sent to [facility] on 02/21/24. Patient states the medication hasnot been delivered yet and he has been out of this medication for about 10 days. Patient states he has not been checking his blood pressure but does have a home BP monitor. This nurse encouraged patient to take his BP and this nurse will call him back for result within the hour. This nurse also informed patient that [facility] would be contacted and this nurse would call patientback on status of losartan medication, as well. Patient voiced understanding. Ashley Grant RN documented in this [facility]01-[facility] Telephone encounter Note * Telephone Encounter - Noemy Dubon - 02/27/2024 3:46 PM EST Please call patient , patient did return the call, we were on hold several minutes , advised patient I will send message for nurse to call back Please call patient [phone] [facility]01-22-[facility] Telephone encounter Note* Telephone Encounter - Ashley Grant RN - 02/27/2024 3:25 PM EST This nurse called [facility] and Losartan medication is en route to patient, and is to be delivered to patient by tomorrow, by 4:50pm. This nurse attempted to contact patient to inform him of this, as well as obtain his BP reading from him. No answer. Message left for pt to call provider's office and ask for a nurse for this message. Ashley Grant RN [facility]01-22-[facility] Telephone encounter Note* Telephone Encounter - Ashley Grant RN - 02/27/2024 3:21 PM EST Patient calling in to check on status of his losartan medication refill. This nurse informed patient that script was sent to [facility] on 02/21/24. Patient states the medication hasnot been delivered yet and he has been out of this medication for about 10 days. Patient states he has not been checking his blood pressure but does have a home BP monitor. This nurse encouraged patient to take his BP and this nurse will call him back for result within the hour. This nurse also informed patient that [facility] would be contacted and this nurse would call patientback on status of losartan medication, as well. Patient voiced understanding. Ashley Grant RN [facility]01-16-[facility] Telephone encounter Note* Telephone Encounter - Danae Fuentes APRN.CNP - 02/21/2024 4:47 PM EST The following approved medication requests have been transmitted electronically. Requested Prescriptions Pending Prescriptions Disp Refills losartan (COZAAR) 25 mg tablet 90 tablet 3 Sig: Take 1 tablet by mouth once daily. Danae Fuentes APRN.CNP [facility]01-16-2025 Miscellaneous Notes* Telephone Encounter - Danae Fuentes APRN.CNP - 02/21/2024 4:47 PM EST The following approved medication requests have been transmitted electronically. Requested Prescriptions Pending Prescriptions Disp Refills losartan (COZAAR) 25 mg tablet 90 tablet 3 Sig: Take 1 tablet by mouth once daily. Danae Fuentes APRN.CNP * Telephone Encounter - Marina Mathews - 02/21/2024 8:14 AM EST Prescription Refill Information The patient has been identified by name and date of : Yes Caregiver verified no other encounters exist for this prescription request: Yes Caregiver confirmed with patient/requestor that no other refills are due, in the near future, with this provider at this time: Yes The last office visit in the department: 01-21-24 Does the patient have a future office visit with this provider/department: Yes Requested Prescriptions Pending Prescriptions Disp Refills losartan (COZAAR) 25 mg tablet 30 tablet 1 Sig: Take 1 tablet by mouth once daily. Marina Mathews February 21, 2024 8:15 AM documented in this encounterL[facility]01-16-2025 Telephone encounter Note * Telephone Encounter - Marina Mathews - 02/21/2024 8:14 AM EST Prescription Refill Information The patient has been identified by name and date of : Yes Caregiver verified no other encounters exist for this prescription request: Yes Caregiver confirmed with patient/requestor that no other refills are due, in the near future, with this provider at this time: Yes The last office visit in the department: 01-21-24 Does the patient have a future office visit with this provider/department: Yes Requested Prescriptions Pending Prescriptions Disp Refills losartan (COZAAR) 25 mg tablet 30 tablet 1 Sig: Take 1 tablet by mouth once daily. Marina Mathews February 21, 2024 8:15 AM [facility]12-[facility] Telephone encounter Note* Telephone Encounter - Ashley Grant RN - 02/05/2024 8:10 AM EST Patient was seen recently seen at [facility] on 02/01/24 for right shoulder pain. Pt states he was informed by provider at that appt that he would be getting Physical Therapy for his shoulder. Patient calling in now to discuss therapy scheduling. No Physical Therapy order noted. Informed patient that he has a referral order to see Orthopedics. Pt states he is not interested in seeing Orthopedics and ended call. Will send this update to provider for update. Please contact patient if other recommendations are advised. Ashley Grant RN [facility]12-31-2024 Miscellaneous Notes* Telephone Encounter - Ashley Grant RN - 02/05/2024 8:10 AM EST Patient was seen recently seen at [facility] on 02/01/24 for right shoulder pain. Pt states he was informed by provider at that appt that he would be getting Physical Therapy for his shoulder. Patient calling in now to discuss therapy scheduling. No Physical Therapy order noted. Informed patient that he has a referral order to see Orthopedics. Pt states he is not interested in seeing Orthopedics and ended call. Will send this update to provider for update. Please contact patient if other recommendations are advised. Ashley Grant RN documented in this encounterL[facility]12-[facility]24 Telephone encounter Note * Telephone Encounter - Ashley Grant RN - 02/05/2024 8:09 AM EST Patient returned call and given provider's message below and patient verbalized understanding. Patient plans to keep appt with Dr. Johnson for 02/18/24. Amy Grant RN [facility]12-31-2024 Miscellaneous Notes* Telephone Encounter - Ashley Grant RN - 02/05/2024 8:09 AM EST Patient returned call and given provider's message below and patient verbalized understanding. Patient plans to keep appt with Dr. Johnson for 02/18/24. Amy Grant RN * Telephone Encounter - Kay Anguiano RN - 02/04/2024 6:12 PM EST Called and left a voicemail for the Patient to call back and ask for a nurse to receive the providers message. Kay Anguiano RN * Telephone Encounter - Karla Baron APRN.CNP - 02/04/2024 5:24 PM EST That is fine, as he actually needs urology follow-up and not primary care follow-up, as advised in the ER. He had a liter in his bladder when the ER put the catheter in. He needs to have an evaluation by urology before the catheter is removed, as he may not be able to urinate again once the catheter is removed. * Telephone Encounter - Ashley Stoddard - 02/04/2024 9:50 AM EST Patient was seen at [facility] ER on 01/29 cath was placed and advised for removal in 3-5 days. I did check with urology [facility] 02[facility]24 at [facility]. Patient called Dr Johnson and there first opening was 02/17 and that is why he was calling us for a sooner appointment , patient upset PCP would not remove sooner and declined to arrange his ER follow up documented in this encounterL[facility]12-30-[facility]24 Telephone encounter Note * Telephone Encounter - Kay Anguiano RN - 02/04/2024 6:12 PM EST Called and left a voicemail for the Patient to call back and ask for a nurse to receive the providers message. Kay Anguiano RN [facility]12-30-2024 Telephone encounter Note* Telephone Encounter - Karla Baron APRN.CNP - 02/04/2024 5:24 PM EST That is fine, as he actually needs urology follow-up and not primary care follow-up, as advised in the ER. He had a liter in his bladder when the ER put the catheter in. He needs to have an evaluation by urology before the catheter is removed, as he may not be able to urinate again once the catheter is removed. [facility]12-30-2024 Telephone encounter Note* Telephone Encounter - Ashley Stoddard - 02/04/2024 9:50 AM EST Patient was seen at [facility] ER on 01/29 cath was placed and advised for removal in 3-5 days. I did check with urology [facility] 02[facility]24 at [facility]. Patient called Dr Johnson and there first opening was 02/17 and that is why he was calling us for a sooner appointment , patient upset PCP would not remove sooner and declined to arrange his ER follow up [facility]12-27-2024 NoteHNO ID: [id number] Author: GUS SANCHEZ APRN.FRETTED INSTRUMENT REPAIRER Service: ? Author Type: Nurse Practitioner Type: Progress Notes Filed: 02/01/2024 09:41 Note Text: Subjective HPI Nontoxic-appearing male presents urgent care chief complaint right shoulder pain. Duration of symptom 1 day. Associated symptoms like shoulder injury. Patient states was getting up out of his chair when he pushed with his right arm and felt a pop in his shoulder. Has decreased range of motion due to discomfort. No weakness. Denies any other injuries. No numbness or tingling. [id number]. No surgeries fractures previously. Past medical history prescription medications allergies reviewed. 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 cruciate tear, poss. 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 PM - PAST MEDICAL HISTORY OF 1982 laceration wrist, suicidal gesture Radius fracture 06/21/2013 See scanned documents [facility] Tobacco abuse 05/22/2013 Urinary calculus, unspecified 01/05 Renal stone right side; 3 episodes with stones altogether with extraction in 196 PAST SURGICAL HISTORY Procedure Laterality Date ATHERECTOMY, FEMORAL-POPLITEAL 09/28/2009 right COLONOSCOPY 12/26/2023 COLONOSCOPY FLX DX W/COLLJ SPEC WHEN PFRMD 06/21/2015 Colonoscopy CORONARY ENDARTERCOMY OPEN ANY METHOD 08/10/2006 Angioplasty with stent ECHOCARDIOGRAM 11/24/2020 11/25/[address] Puentes: LV size and LVSF WNL, EF 55%, structurally normal valves EGD 12/26/2023 ESOPHAGOGASTRODUODENOSCOPY TRANSORAL DIAGNOSTIC 06/21/2015 EGD PAST SURGICAL HISTORY OF 04/05/1999 Cautery and outfracture of inferior turbinates. Removal fx fragment PAST SURGICAL HISTORY OF 1960 renal stone extraction: PAST SURGICAL HISTORY OF dental extraction PICC LINE INSERT/CONSULT 04/11/2016 SLCTV CATHJ 3RD+ ORD SLCTV ABDL PEL/LXTR BRNCH 09/28/2009 VASECTOMY UNI/BI SPX W/POSTOP SEMEN EXAMS 10/1984 ALLERGIES Dust Mites, Lipitor [Atorvastatin], Lisinopril, Penicillins, Pletal [Cilostazol], and Pravastatin MEDICATIONS brimonidine 0.2 % drop, timolol maleate 0.5 % drop hydrOXYzine HCl (ATARAX) 25 mg tablet Take 1 tablet by mouth every 8 hours as needed for anxiety. losartan (COZAAR) 25 mg tablet Take 1 tablet by mouth once daily. metoprolol tartrate, short acting, (LOPRESSOR) 100 mg tablet Take 1 tablet by mouth two times a day. tiZANidine (ZANAFLEX) 4 mg tablet Take 0.5-1 tablets by mouth at bedtime as needed (muscle spasms/insomnia). amLODIPine (NORVASC) 10 mg tablet Take 1 tablet by mouth once daily. clopidogrel (PLAVIX) 75 mg tablet Take 1 tablet by mouth once daily. tamsulosin (FLOMAX) 0.4 mg Take 1 capsule by mouth once daily. pantoprazole DR (PROTONIX) 20 mg tablet TAKE 1 TABLET BY MOUTH 1/2 HOUR BEFORE BREAKFAST ON AN EMPTY STOMACH ONCE DAILY timolol maleate (TIMOPTIC) 0.5 % ophthalmic solution latanoprost (XALATAN) 0.005 % ophthalmic solution FAMILY HISTORY Problem Relation Age of Onset Cancer Mother age 42 leukemia None Father father ubknown to pt. Coronary Artery Disease Brother bypass Social History Tobacco Use Smoking status: Every Day Current packs/day: 0.00 Average packs/day: 1 pack/day for 63.2 years (63.2 ttl pk-yrs) Types: Cigarettes Start date: 02/05/1959 Last attempt to quit: 04/19/2022 Years since quittin.7 Smokeless tobacco: Never Vaping Use Vaping status: Never Used Substance Use Topics Alcohol use: Yes Comment: Socially Drug use: No BP 107/82 Pulse 86 Temp 36.6 ?C (97.9 ?F) Resp 18 Wt 73.5 kg (162 lb 0.6 oz) SpO2 97% BMI 25.38 kg/m? Review of Systems Constitutional: Negative for chills, fever and malaise/fatigue. Musculoskeletal: Positive for joint pain. Negative for back pain, falls, myalgias and neck pain. Neurological: Negative for dizziness, loss of consciousness, weakness and headaches. Objective Physical Exam Constitutional: General: He is not in acute distress. Appearance: He is not toxic-appearing. HENT: Head: Normocephalic. Nose: Nose normal. Eyes: Pupils: Pupils are equal, round, and reactive to light. Cardiovascular: Rate and Rhythm: Normal rate. Pulmonary: Effort: Pulmonary effort is normal. No respiratory distress. Musculoskeletal: Right shoulder: No (more content not included)...[facility] 02-01-2024 History of Present illness Narrative* Gus Sanchez APRN.[facility] - 02/01/2024 9:02 AM EST Subjective HPI Nontoxic-appearing male presents urgent care chief complaint right shoulder pain. Duration of symptom 1 day. Associated symptoms like shoulder injury. Patient states was getting up out of his chair when he pushed with his right arm and felt a pop in his shoulder. Has decreased range of motion due to discomfort. No weakness. Denies any other injuries. No numbness or tingling. [id number]. No surgeries fractures previously. Past medical history prescription medications allergies reviewed. 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 cruciate tear, poss. 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 PMH - PAST MEDICAL HISTORY OF 1981 laceration wrist, suicidal gesture Radius fracture 06/21/2013 See scanned documents [facility] Tobacco abuse 05/22/2013 Urinary calculus, unspecified 01/05 Renal stone right side; 3 episodes with stones altogether with extraction in 1960 PAST SURGICAL HISTORY Procedure Laterality Date ATHERECTOMY, FEMORAL-POPLITEAL 09/28/2009 right COLONOSCOPY 12/26/2023 COLONOSCOPY FLX DX W/COLLJ SPEC WHEN PFRMD 06/21/2015 Colonoscopy CORONARY ENDARTERCOMY OPEN ANY METHOD 08/10/2006 Angioplasty with stent ECHOCARDIOGRAM 11/24/2020 11/25/[address] Puentes: LV size and LVSF WNL, EF 55%, structurally normal valves EGD 12/26/2023 ESOPHAGOGASTRODUODENOSCOPY TRANSORAL DIAGNOSTIC 06/21/2015 EGD PAST SURGICAL HISTORY OF 04/05/1999 Cautery and outfracture of inferior turbinates. Removal fx fragment PAST SURGICAL HISTORY OF 1960 renal stone extraction: PAST SURGICAL HISTORY OF dental extraction PICC LINE INSERT/CONSULT 04/11/2016 SLCTV CATHJ 3RD+ ORD SLCTV ABDL PEL/LXTR BRNCH 09/28/2009 VASECTOMY UNI/BI SPX W/POSTOP SEMEN EXAMS 10/1984 ALLERGIES Dust Mites, Lipitor [Atorvastatin], Lisinopril, Penicillins, Pletal [Cilostazol], and Pravastatin MEDICATIONS brimonidine 0.2 % drop, timolol maleate 0.5 % drop hydrOXYzine HCl (ATARAX) 25 mg tablet Take 1 tablet by mouth every 8 hours as needed for anxiety. losartan (COZAAR) 25 mg tablet Take 1 tablet by mouth once daily. metoprolol tartrate, short acting, (LOPRESSOR) 100 mg tablet Take 1 tablet by mouth two times a day. tiZANidine (ZANAFLEX) 4 mg tablet Take 0.5-1 tablets by mouth at bedtime as needed (muscle spasms/insomnia). amLODIPine (NORVASC) 10 mg tablet Take 1 tablet by mouth once daily. clopidogrel (PLAVIX) 75 mg tablet Take 1 tablet by mouth once daily. tamsulosin (FLOMAX) 0.4 mg Take 1 capsule by mouth once daily. pantoprazole DR (PROTONIX) 20 mg tablet TAKE 1 TABLET BY MOUTH 1/2 HOUR BEFORE BREAKFAST ON AN EMPTY STOMACH ONCE DAILY timolol maleate (TIMOPTIC) 0.5 % ophthalmic solution latanoprost (XALATAN) 0.005 % ophthalmic solution FAMILY HISTORY Problem Relation Age of Onset Cancer Mother age 42 leukemia None Father father ubknown to pt. Coronary Artery Disease Brother bypass Social History Tobacco Use Smoking status: Every Day Current packs/day: 0.00 Average packs/day: 1 pack/day for 63.2 years (63.2 ttl pk-yrs) Types: Cigarettes Start date: 02/05/1958 Last attempt to quit: 04/19/2022 Years since quittin.7 Smokeless tobacco: Never Vaping Use Vaping status: Never Used Substance Use Topics Alcohol use: Yes Comment: Socially Drug use: No BP 107/82 Pulse 86 Temp 36.6 C (97.9 F) Resp 18 Wt 73.5 kg (162 lb 0.6 oz) SpO2 97% BMI25.38 kg/m Review of Systems Constitutional: Negative for chills, fever and malaise/fatigue. Musculoskeletal: Positive for joint pain. Negative for back pain, falls, myalgias and neck pain. Neurological: Negative for dizziness, loss of consciousness, weakness and headaches. Objective Physical Exam Constitutional: General: He is not in acute distress. Appearance: He is not toxic-appearing. HENT: Head: Normocephalic. Nose: Nose normal. Eyes: Pupils: Pupils are equal, round, and reactive to light. Cardiovascular: Rate and Rhythm: Normal rate. Pulmonary: Effort: Pulmonary effort is normal. No respiratory distress. Musculoskeletal: Right shoulder: No swelling, deformity, effusion, tenderness or bony tenderness. Decreased range ofmotion. Normal strength. Right upper arm: Normal. Cervical back: Normal range of motion. Comments: No erythema edema noted. No point tenderness. Neurovascular intact. No rashes. Skin: General: Skin is warm and dry. Neurological: General: No focal deficit present. Mental Status: He is alert. ASSESSMENT/PLAN: 1. Acute pain of right shoulder - ICD9: 719.41, ICD10: M25.511 - XR SHOULDER GENERAL 3V OR MORE AP/TRUE AP/OTHER RIGHT - CONSULT TO ORTHOPAEDICS IMPRESSION: Degenerative changes in the right shoulder as described above. No acute findings noted on x-ray. Suspicious of rotator cuff injury. Referred to orthopedics. Patient was educated on supportive therapies. Patient will follow up with primary care provider as needed. Patient was instructed to immediately proceed to emergency room for any new, worsening, or symptoms lasting longer than anticipated. The patient's clinical presentation is otherwise unremarkable at this time. Based on exam and clinical finding, the patient is stable for discharge. Plan of care was discussed with patient. Patient verbalizes understanding and agrees to plan of care. This note was generated using MyCare software. It may contain errors in wording, punctuation, or spelling. Gus Sanchez APRN.MARK documented in [facility] encounterL[facility]12-27-[facility] History of Present illness Narrative* Clint Lucero RT([place]) - 02/01/2024 9:00 AM EST Radiology Service Progress Note PATIENT NAME: Ramonita El DATE OF SERVICE: February 01, 2024 TIME: 8:54 AM PATIENT IDENTITY VERIFICATION COMPLETED USING TWO (2) IDENTIFIERS: Name and Date of confirmedby patient verbally. FALL SCREENING: Has the patient had 2 falls in the last year or 1 fall with injury or currently using an Ambulatory Assistive Device (Walker, Cane, Wheelchair, Crutches, etc.)? No PATIENT GENDER DATA: Male PATIENT RELEVANT IMPLANT DATA REVIEWED: Not Applicable PATIENT PRESENTS WITH AN IMPLANTABLE OR ATTACHED PORT PURSER: No RADIOLOGY DEPARTMENT: General X-ray: Exam(s) Completed: Upper Extremity X- Ray(s): Shoulder, AP / TRUE AP / AXILLARY right PERIPHERAL IV DATA: Not applicable SIGNED BY: RT Fili(R) February 01, 2024 8:54 AM documented in this encounterLake[facility]12-27-2024 NoteHNO ID: [id number] Author: CLINT LUCERO RT(R) Service: Radiology Author Type: Technologist Type: Progress Notes Filed: 02/01/2024 09:04 Note Text: Radiology Service Progress Note PATIENT NAME: Ramonita El DATE OF SERVICE: February 01, 2024 TIME: 8:54 AM PATIENT IDENTITY VERIFICATION COMPLETED USING TWO (2) IDENTIFIERS: Name and Date of confirmed by patient verbally. FALL SCREENING: Has the patient had 2 falls in the last year or 1 fall with injury or currently using an Ambulatory Assistive Device (Walker, Cane, Wheelchair, Crutches, etc.)? No PATIENT GENDER DATA: Male PATIENT RELEVANT IMPLANT DATA REVIEWED: Not Applicable PATIENT PRESENTS WITH AN IMPLANTABLE OR ATTACHED PORT PURSER: No RADIOLOGY DEPARTMENT: General X-ray: Exam(s) Completed: Upper Extremity X-Ray(s): Shoulder, AP / TRUE AP / AXILLARY right PERIPHERAL IV DATA: Not applicable SIGNED BY: RT Fili(R) February 01, 2024 8:54 [facility]12-16-2024 History of Present illness Narrative* Dave Mccray APRN.FRETTED INSTRUMENT REPAIRER - 01/21/2024 1:00 PM EST Chief Complaint Patient presents with: ER F/U HPI Ramonita El is a 83 year old male who presents here today for ER Follow Up. Patient here for emergency room follow-up. Patient went to [facility] on 01/15 for complaints of bleeding. Patient was taking a shower at work, looked down and saw blood on his right leg. Was unsuccessful with getting blood to stop. He is on Plavix. Was evaluated in the emergency room. Found to have a pin size hole in a varicose vein. Bleeding was stopped at emergency room. After bleeding was stopped. 2 silver nitrate sticks were placed over the wound to provide chemical cauterization. Dermabond was placed over the area to ensure no bleeding. No trauma prior to this bleeding. Therefore no x-ray was completed. Minimal blood loss so no blood work was completed. Of note, patient's blood pressure was elevated at the time of visit 161/68, 145/73. He is on amlodipine as prescribed for hypertension. Has a history of cough with lisinopril. He is a smoker. Smoked about 30 minutesprior to her visits. Does not check blood pressure at home. He has a blood pressure cuff but he is unsure if it is accurate. Patient also has a history of primary insomnia. Taking tizanidine as prescribed by his PCP for sleep aid. Reviewing records, he previously was on trazodone at bedtime for insomnia many years ago. Hastried melatonin and doxepin. Patient mentions that he falls asleep at 3 PM every day. Wakes up around 1030 or 11 PM. Then has a difficult time falling back asleep. Feels hungry. Finally falls asleep but for very limited time. Frustrated that no one can help him sleep. Requesting refill of Atarax. Used for chronic anxiety. At this time, the patient states that he is no longer bleeding from his ankle. He denies hitting the area. Denies any redness, pain, swelling. Blood pressure was elevated. Taking amlodipine as prescribed. Without chest pain or shortness of breath. Past medical history, appointments, medications, allergies reviewed. EXAM: BP 162/71 Pulse 69 Resp 16 Wt 73.5 kg (162 lb) SpO2 98% BMI 25.37 kg/m General Appearance: Well appearing, alert, in no acute distress, well-hydrated, well nourished.. Skin: Right ankle, lateral aspect, quarter sized scab present without redness, warmth. Lungs: Lungs clear to auscultation. No wheezing, rhonchi, rales.. Heart: RRR without murmur, gallop, or rubs. No ectopy. ASSESSMENT/PLAN: 1. Primary hypertension - ICD9: 401.9, ICD10: I10 (primary diagnosis) - Uncontrolled - Continue current medications - Start losartan, continue amlodipine - Recommend home blood pressure monitoring, to bring results to next visit - Encouraged sodium restriction, DASH or Mediterranean diet - Recommend regular aerobic exercise 2. Primary insomnia - ICD9: 307.42, ICD10: F51.01 -Lengthy discussion on sleep habits. Discussed with patient that he is getting 7 to 8 hours of sleep during the day which leads his sleep cycle to be off. I discussed that he should try to stay up aslong as he can until a normal 8 or 9 PM and then fall asleep. Patient was not happy with that recommendation. I offered a referral to sleep medicine for further evaluation and recommendations. Patient frustrated, unsure if he was going to make sleep medicine appointment. - CONSULT TO SLEEP MEDICINE - ADULT 3. Bleeding from varicose vein - ICD9: 454.8, ICD10: I83.899 -Resolved. Offered referral to vascular medicine but he declined. 4. Chronic anxiety - ICD9: 300.00, ICD10: F41.9 -Chronic, refilled - HYDROXYZINE HCL 25 MG TABLET Dave Mccray APRN.CNP RTO in 1 months, sooner if needed. This note was partly generated using MyCare voice recognition dictation and may contain some misspelled or inaccurate words missed on review. documented in this encounterLakehealth [facility]12-16-2024 NoteHNO ID: [id number] Author: DAVE MCCRAY APRN.CNP Service: ? Author Type: Nurse Practitioner Type: Progress Notes Filed: 01/21/2024 13:33 Note Text: Chief Complaint Patient presents with: ER F/U HPI Ramonita El is a 83 year old male who presents here today for ER Follow Up. Patient here for emergency room follow-up. Patient went to [facility] on 01/15 for complaints of bleeding. Patient was taking a shower at work, looked down and saw blood on his right leg. Was unsuccessful with getting blood to stop. He is on Plavix. Was evaluated in the emergency room. Found to have a pin size hole in a varicose vein. Bleeding was stopped at emergency room. After bleeding was stopped. 2 silver nitrate sticks were placed over the wound to provide chemical cauterization. Dermabond was placed over the area to ensure no bleeding. No trauma prior to this bleeding. Therefore no x-ray was completed. Minimal blood loss so no blood work was completed. Of note, patient's blood pressure was elevated at the time of visit 161/68, 145/73. He is on amlodipine as prescribed for hypertension. Has a history of cough with lisinopril. He is a smoker. Smoked about 30 minutes prior to her visits. Does not check blood pressure at home. He has a blood pressure cuff but he is unsure if it is accurate. Patient also has a history of primary insomnia. Taking tizanidine as prescribed by his PCP for sleep aid. Reviewing records, he previously was on trazodone at bedtime for insomnia many years ago. Has tried melatonin and doxepin. Patient mentions that he falls asleep at 3 PM every day. Wakes up around 1030 or 11 PM. Then has a difficult time falling back asleep. Feels hungry. Finally falls asleep but for very limited time. Frustrated that no one can help him sleep. Requesting refill of Atarax. Used for chronic anxiety. At this time, the patient states that he is no longer bleeding from his ankle. He denies hitting the area. Denies any redness, pain, swelling. Blood pressure was elevated. Taking amlodipine as prescribed. Without chest pain or shortness of breath. Past medical history, appointments, medications, allergies reviewed. EXAM: BP 162/71 Pulse 69 Resp 16 Wt 73.5 kg (162 lb) SpO2 98% BMI 25.37 kg/m? General Appearance: Well appearing, alert, in no acute distress, well-hydrated, well nourished.. Skin: Right ankle, lateral aspect, quarter sized scab present without redness, warmth. Lungs: Lungs clear to auscultation. No wheezing, rhonchi, rales.. Heart: RRR without murmur, gallop, or rubs. No ectopy. ASSESSMENT/PLAN: 1. Primary hypertension - ICD9: 401.9, ICD10: I10 (primary diagnosis) - Uncontrolled - Continue current medications - Start losartan, continue amlodipine - Recommend home blood pressure monitoring, to bring results to next visit - Encouraged sodium restriction, DASH or Mediterranean diet - Recommend regular aerobic exercise 2. Primary insomnia - ICD9: 307.42, ICD10: F51.01 -Lengthy discussion on sleep habits. Discussed with patient that he is getting 7 to 8 hours of sleep during the day which leads his sleep cycle to be off. I discussed that he should try to stay up as long as he can until a normal 8 or 9 PM and then fall asleep. Patient was not happy with that recommendation. I offered a referral to sleep medicine for further evaluation and recommendations. Patient frustrated, unsure if he was going to make sleep medicine appointment. - CONSULT TO SLEEP MEDICINE - ADULT 3. Bleeding from varicose vein - ICD9: 454.8, ICD10: I83.899 -Resolved. Offered referral to vascular medicine but he declined. 4. Chronic anxiety - ICD9: 300.00, ICD10: F41.9 -Chronic, refilled - HYDROXYZINE HCL 25 MG TABLET Dave Mccray APRN.CNP RTO in 1 months, sooner if needed. This note was partly generated using [employer] voice recognition dictation and may contain some misspelled or inaccurate words missed on review.[facility]11-27-2024 History of Present illness Narrative* Tomeka Mclaughlin APRN.CNP - 01/02/2024 11:00 AM EST FOLLOW UP VISIT - ENDOSCOPY Ramonita El 1940 [id number] REFERRING PHYSICIAN: Star Grande [address] [facility] [address] Ramonita El is a patient I am following for + iFOBT. Dr. Grande performed upper & lower endoscopy on 12/26/23. The patient was found to have EGD Impression: - Normal examined jejunum. - Duodenitis, characterized by congestion (edema), erosions, erythema and shallow ulcerations. Biopsied. - Gastritis, characterized by erythema. Biopsied. - Small hiatal hernia. - Normal esophagus. COLONOSCOPY Impression: - Preparation of the colon was fair. - Diverticulosis in the left colon. - Three small (4-6 mm) polyps in the ascending colon and in the cecum, removed with a cold biopsy forceps. Resected and retrieved. Clip (MR conditional) was placed. - One 13 mm polyp in the sigmoid colon, removed with a hot snare. Resected and retrieved. Clip (MR conditional) was placed. - The examination was otherwise normal on direct and retroflexion views. Pathology demonstrated: FINAL DIAGNOSIS A. Duodenum, biopsy: - Duodenal mucosa with no significant pathologic changes. B. Stomach, biopsy: - Antral mucosa with minimal chronic inflammation. - No evidence of H. pylori. C. Cecum, polypectomy: - Tubular adenoma. D. Ascending colon, polypectomy: - Fragments of tubular adenoma. E. Sigmoid, polypectomy: - Tubular adenoma. The patient notes no complaints since the procedure. Ramonita admits to smoking and eating a large amount of ice cream. He does refer that he gets gassy from this. VITALS: There were no vitals taken for this visit. General: patient is alert, cooperative, pleasant and in no acute distress On examination, the abdomen is benign. Assessment ASSESSMENT/PLAN: 1. Duodenitis without bleeding - ICD9: 535.60, ICD10: K29.80 (primary diagnosis) - Continue Protonix 20mg daily - Avoid NSAIDs, smoking & alcohol 2. Multiple adenomatous polyps - ICD9: 229.9, ICD10: D36.9 The operative findings and pathology report were reviewed with the patient, and the patient has hadthe opportunity to ask questions and have questions answered. If the patient notes any problems or changes in bowel function, the patient should contact me immediately. Otherwise I recommend follow up colonoscopy in 3 years. HM updated and recall letter generated. Discussed treatment plan and patient voices understanding. Patient's questions answered appropriately. Medications and potential side effects were discussed and patient voices understanding. Return to the office as scheduled or as needed for worsening/no improvement. Tomeka Mclaughlin APRN.FRETTED INSTRUMENT REPAIRER documented in this encounterLake[facility]11-27-2024 NoteHNO ID: [id number] Author: TOMEKA MCLAUGHLIN APRN.FRETTED INSTRUMENT REPAIRER Service: ? Author Type: Nurse Practitioner Type: Progress Notes Filed: 01/02/2024 11:02 Note Text: FOLLOW UP VISIT - ENDOSCOPY Ramonita Swain [place] 1940 [id number] REFERRING PHYSICIAN: Star Grande [address] [facility] [address] Ramonita El is a patient I am following for + iFOBT. Dr. Grande performed upper AND lower endoscopy on 12/26/23. The patient was found to have EGD Impression: - Normal examined jejunum. - Duodenitis, characterized by congestion (edema), erosions, erythema and shallow ulcerations. Biopsied. - Gastritis, characterized by erythema. Biopsied. - Small hiatal hernia. - Normal esophagus. COLONOSCOPY Impression: - Preparation of the colon was fair. - Diverticulosis in the left colon. - Three small (4-6 mm) polyps in the ascending colon and in the cecum, removed with a cold biopsy forceps. Resected and retrieved. Clip (MR conditional) was placed. - One 13 mm polyp in the sigmoid colon, removed with a hot snare. Resected and retrieved. Clip (MR conditional) was placed. - The examination was otherwise normal on direct and retroflexion views. Pathology demonstrated: FINAL DIAGNOSIS A. Duodenum, biopsy: - Duodenal mucosa with no significant pathologic changes. B. Stomach, biopsy: - Antral mucosa with minimal chronic inflammation. - No evidence of H. pylori. C. Cecum, polypectomy: - Tubular adenoma. D. Ascending colon, polypectomy: - Fragments of tubular adenoma. E. Sigmoid, polypectomy: - Tubular adenoma. The patient notes no complaints since the procedure. Ramonita admits to smoking and eating a large amount of ice cream. He does refer that he gets gassy from this. VITALS: There were no vitals taken for this visit. General: patient is alert, cooperative, pleasant and in no acute distress On examination, the abdomen is benign. Assessment ASSESSMENT/PLAN: 1. Duodenitis without bleeding - ICD9: 535.60, ICD10: K29.80 (primary diagnosis) - Continue Protonix 20mg daily - Avoid NSAIDs, smoking AND alcohol 2. Multiple adenomatous polyps - ICD9: 229.9, ICD10: D36.9 The operative findings and pathology report were reviewed with the patient, and the patient has had the opportunity to ask questions and have questions answered. If the patient notes any problems or changes in bowel function, the patient should contact me immediately. Otherwise I recommend follow up colonoscopy in 3 years. HM updated and recall letter generated. Discussed treatment plan and patient voices understanding. Patient's questions answered appropriately. Medications and potential side effects were discussed and patient voices understanding. Return to the office as scheduled or as needed for worsening/no improvement. Tomeka Mclaughlin APRN.[facility]11-20-2024 Note* Discharge Instr - Nursing - Darcy Bennett, ROBERT - 12/26/2023 12:54 PM EST The patient received a copy of Colonoscopy discharge instructions that contain information for how to contact the physician who performed the procedure and when to seek medical care. [facility]11-20-2024 Miscellaneous Notes* Discharge Instr - Nursing - Darcy Bennett RN - 12/26/2023 12:54 PM EST The patient received a copy of Colonoscopy discharge instructions that contain information for how to contact the physician who performed the procedure and when to seek medical care. documented in this encounterLake[facility]11-20-2024 NoteHNO ID: [id number] Author: DARCY BENNETT RN Service: ? Author Type: Registered Nurse Type: Nursing Progress Note Filed: 12/26/2023 12:51 Note Text: Oxygen applied at 3L per NC for pulse ox readings in low 90's while sleeping. [facility]11-20-2024 Nurse Note* Darcy Bennett RN - 12/26/2023 12:30 PM EST Oxygen applied at 3L per NC for pulse ox readings in low 90's while sleeping. [facility]11-20-2024 Nurse Note* Darcy Bennett RN - 12/26/2023 12:30 PM EST Oxygen applied at 3L per NC for pulse ox readings in low 90's while sleeping. * Darcy Bennett RN - 12/26/2023 12:27 PM EST Patient received in phase II via cart in left lateral position, eyes closed but open to verbal stimuli, skin warm and dry, respirations regular and unlabored, alert to self and event, abdomen soft and non distended, denies cramping or nausea. Resting on left side. No family present. documented in this encounterLake[facility]11-20-2024 Nurse Note* Darcy Bennett RN - 12/26/2023 12:27 PM EST Patient received in phase II via cart in left lateral position, eyes closed but open to verbal stimuli, skin warm and dry, respirations regular and unlabored, alert to self and event, abdomen soft and non distended, denies cramping or nausea. Resting on left side. No family present. [facility]11-20-2024 Attending History and physical note* Star Grande MD - 12/26/2023 10:45 AM EST UPDATED PROCEDURAL SEDATION HISTORY AND PHYSICAL EXAMINATION SERVICE DATE: 12/26/2023 SERVICE TIME: 11:33 AM PHYSICAL EXAM MUST BE COMPLETED ON ADMISSION PROCEDURE: Procedure Indications: The History and Physical (completed in the past 30 days) has been reviewed and the patient has beenexamined. The contents accurately reflect the patient's condition with the following additions or revisions since the H&P was completed. ASA Class: ASA Class: Patient with severe systemic disease Examination indicates no changes. AIRWAY: Airway Visualization of Uvula: Yes Mouth opening greater than 2 fingerbreadths: Yes Neck Full Range of Motion: Yes LUNGS: Lungs clear to auscultation CARDIAC: Regular rhythm,Regular rate Provisional Diagnosis/Treatment Plan: heme positive stools - EGd and Colonscopy Sedation Goal: Moderate This H&P can be found in the attached. SIGNATURE: Star Grande MD PATIENT NAME: Ramonita El DATE: December 26, 2023 TIME: 11:33 AM Source Note - Star Grande MD - 12/26/2023 10:45 AM EST HISTORY AND PHYSICAL Ramonita El : 1940 REFERRING PHYSICIAN: Danae Fuentes [address] [facility] [address] CHIEF COMPLAINT: No chief complaint on file. HPI: Ramonita is a 83 year old male referred for endoscopy. Ramonita notes +iFOBT. Ramonita denies abdominal pain.. Ramonita denies diarrhea. Ramonita denies constipation. Ramonita denies a change in bowel habits. Ramonita notes melena. Refers stools have been black and soft for the last 2-3 weeks. Ramonita denies bright red blood per rectum. Ramonita denies hemorrhoids. Ramonita notes a distant history of heartburn. Symptoms are well controlled with Protonix 20mg Ramonita denies dysphagia. Ramonita denies a history of ulcers/ peptic ulcer disease. Ramonita denies family history of colon issues. Ramonita has a hx of CAD with stents 2006. Last stress test 2020. EF of 60%. Doesn't follow with cardiology. Takes plavix. Denies CP, SOB, dizziness, palpitations, syncope, edema, recent hospitalizations Ramonita has undergone prior endoscopy. Last colonoscopy & EGD 06/2015 at [facility] with Dr. Lezama. Sedation: Fentanyl 50 micrograms IV, Midazolam 5 mg IV, Diphenhydramine 50 mg IV EGD Impression: - Reflux esophagitis. Biopsied. - Normal stomach. Biopsied. - Normal examined duodenum COLONOSCOPY Impression: - Diverticulosis in the sigmoid colon and in the descending colon. - One 13 mm polyp in the descending colon. Resected and retrieved. Clips were placed. - One 6 mm polyp in the ascending colon. Resected and retrieved. CONVERTED FINAL DIAGNOSIS 1. Stomach, biopsy (A) - Oxyntic mucosa with chronic active gastritis with Helicobacter pylori organisms. 2. Distal esophagus, biopsy (B) - Ulcer. - Gastric-type mucosa with chronic inflammation and foveolar hyperplasia. - Squamous mucosa with regenerative epithelial changes. - Negative for intestinal metaplasia or dysplasia. 3. Ascending colon, biopsy (C) - Fragments of tubular adenoma. 4. Descending colon, biopsy (D) - Tubular adenoma. [facility]/06/22/15 CURRENT MEDICATIONS Current Outpatient Medications Medication Sig metoprolol tartrate, short acting, (LOPRESSOR) 100 mg tablet Take 1 tablet by mouth two times a day. tiZANidine (ZANAFLEX) 4 mg tablet Take 0.5-1 tablets by mouth at bedtime as needed (muscle spasms/insomnia). amLODIPine (NORVASC) 10 mg tablet Take 1 tablet by mouth once daily. clopidogrel (PLAVIX) 75 mg tablet Take 1 tablet by mouth once daily. tamsulosin (FLOMAX) 0.4 mg Take 1 capsule by mouth once daily. pantoprazole DR (PROTONIX) 20 mg tablet TAKE 1 TABLET BY MOUTH 1/2 HOUR BEFORE BREAKFAST ON AN EMPTY STOMACH ONCE DAILY timolol maleate (TIMOPTIC) 0.5 % ophthalmic solution latanoprost (XALATAN) 0.005 % ophthalmic solution hydrOXYzine HCl (ATARAX) 25 mg tablet Take 1 tablet by mouth every 8 hours as needed for anxiety. No current facility-administered medications for this visit. 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 cruciate tear, poss. 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 PMH - PAST MEDICAL HISTORY OF 1981 laceration wrist, suicidal gesture Radius fracture 06/21/2013 See scanned documents [facility] Tobacco abuse 05/22/2013 Urinary calculus, unspecified 01/05 Renal stone right side; 3 episodes with stones altogether with extraction in 1960 PAST SURGICAL HISTORY PAST SURGICAL HISTORY Procedure Laterality Date ATHERECTOMY, FEMORAL-POPLITEAL 09/28/2009 right COLONOSCOPY FLX DX W/COLLJ SPEC WHEN PFRMD 06/21/2015 Colonoscopy CORONARY ENDARTERCOMY OPEN ANY METHOD 08/10/2006 Angioplasty with stent ECHOCARDIOGRAM 11/24/2020 11/25/[address] Puentes: LV size and LVSF WNL, EF 55%, structurally normal valves ESOPHAGOGASTRODUODENOSCOPY TRANSORAL DIAGNOSTIC 06/21/2015 EGD PAST SURGICAL HISTORY OF 04/05/1999 Cautery and outfracture of inferior turbinates. Removal fx fragment PAST SURGICAL HISTORY OF 1960 renal stone extraction: PAST SURGICAL HISTORY OF dental extraction PICC LINE INSERT/CONSULT 04/11/2016 SLCTV CATHJ 3RD+ ORD SLCTV ABDL PEL/LXTR BRNCH 09/28/2009 VASECTOMY UNI/BI SPX W/POSTOP SEMEN EXAMS 10/1984 FAMILY HISTORY FAMILY HISTORY Problem Relation Age of Onset Cancer Mother age 42 leukemia None Father father ubknown to pt. Coronary Artery Disease Brother bypass SOCIAL HISTORY Social History Tobacco Use Smoking status: Every Day Current packs/day: 0.00 Average packs/day: 1 pack/day for 63.2 years (63.2 ttl pk-yrs) Types: Cigarettes Start date: 02/05/1959 Last attempt to quit: 04/19/2022 Years since quittin.6 Smokeless tobacco: Never Vaping Use Vaping status: Never Used Substance Use Topics Alcohol use: Yes Comment: Socially Drug use: No REVIEW OF SYMPTOMS: REVIEW OF SYSTEMS: General: The patient denies fatigue, denies weight loss, denies weight gain, denies feeling hot, and feelings of cold. Eyes: The patient denies glaucoma, denies eye injury/surgery, + glasses or contacts. Ear/Nose/Throat: The patient + allergies, denies hayfever, denies ear infections, and denies bloodynoses. Cardiovascular: The patient denies chest pain, denies heart disease, + high blood pressure, denies high cholesterol, and denies poor circulation. Respiratory: The patient denies tuberculosis, denies pneumonia, denies frequent cough, denies shortness of breath, and denies coughing up blood. Gastrointestinal: The patient denies difficulty swallowing, + acid reflux, denies ulcers, denies jaundice/hepatitis, denies gallbladder problems, denies vomiting, + black or tarry stools, denies hemorrhoids, denies bleeding from rectum, denies diverticulitis, denies constipation, denies diarrhea, denies loss of stool control, and denies hernias. Kidney/Bladder: The patient + kidney stones, denies urine infections, and denies bloody urine. Skin: The patient denies a history of skin cancer, denies bleeding/changing moles, and denies a history of skin rash. Neurologic: The patient denies a history of epilepsy/convulsions, denies headaches, denies head/spinal injuries, and denies stroke/TIA. Psychiatric: The patient denies psychiatric medications, denies depression, and denies voices. Endocrine: The patient denies thyroid disorders, denies diabetes, and denies hormonal problems. Hematologic: The patient denies a history of bruising, denies bleeding, and denies anemia. Infections: The patient denies a history of measles and mumps, denies rheumatic fever, and denies sexually transmitted diseases. Musculoskeletal: The patient denies back pain/injury, denies back problems, denies sciatica, deniesknee/foot trouble, denies arthritis, or denies gout. PHYSICAL EXAMINATION: General: The patient is 83 year old, male well nourished, well hydrated in no acute distress. The patient is oriented to time, place, and person. VITALS: There were no vitals taken for this visit. There is no height or weight on file to calculate BMI. HEENT: Normal cephalic, ataumatic, pupils are equally round, sclera are anicteric, mucous membranesare moist, oropharynx is clear. Neck has no masses, asymmetry or lymphadenopathy. Respiratory: Clear to auscultation and percussion. Normal respiratory excursion and pattern. Cardiac: Examination is regular rate and rhythm. Normal S1/S2 Abdominal exam: Soft, nontender, with no palpable masses. No hepatosplenomegaly. No palpable hernias. Extremities: no clubbing, cyanosis or edema. No adenopathy. LABORATORY VALUES: As Noted RADIOLOGIC STUDIES: As Noted Assessment IMPRESSION: +iFOBT, GERD, black stools PLAN: I have reviewed my findings with the surgeon. Will plan for upper and lower endoscopy. We discussed the risks and benefits of the planned endoscopy. I have informed the patient that complications can occur including failure to complete the endoscopy and perforation. Ramonita had the opportunity to ask questions concerning the planned endoscopy. My staff has also explained the procedure to the patient in understandable terms and has given the patient printed material concerning the procedure.Ramonita freely consents to surgery. I plan to use Golytely bowel preparation I have explained to the patient the difference between IV conscious sedation and MAC anesthesia - and I have offered either, according to the patient's wishes. I have explained that with IV conscioussedation there is no anesthesia provider available and therefore there is a limitation of the amount of IV medications that can be given and that the patient may wake up in the middle of the procedure and/or experience pain/discomfort during the procedure. Further discussion was done and the patient was given the opportunity to ask questions and all questions were answered. Ramonita chooses IV conscious sedation. Ramonita was counseled that if there are changes in his/her medical condition, to let the office know if surgery should proceed. If there are changes in patient's medical condition from time of this encounter to the day of the procedure that preclude anesthesia, patient may have procedure cancelled for patient's safety. Diagnoses: (K92.1) Black stools (primary encounter diagnosis) (R19.5) Positive occult stool blood test (K21.9) Gastroesophageal reflux disease, unspecified whether esophagitis present Consultation requested by Danae Fuentes CNP for an opinion regarding +iFOBT. My final recommendations will be communicated back to the requesting physician by way of shared Medical record or letter to requesting physician via US mail. Portions of this documentation were copied and pasted from previous office visit notes in order to provide a cohesive continuity of the history. The note has been reviewed and edited and updated as necessary. Tomeka Mclaughlin APRN.CNP [facility] Work Phone: [phone]) 151-584711-20-2024 History and physical note* Star Grande MD - 12/26/2023 10:45 AM EST HISTORY AND PHYSICAL Ramonita El : 1940 REFERRING PHYSICIAN: Danae Fuentes [address] [facility] [address] CHIEF COMPLAINT: No chief complaint on file. HPI: Ramonita is a 83 year old male referred for endoscopy. Ramonita notes +iFOBT. Ramonita denies abdominal pain.. Ramonita denies diarrhea. Ramonita denies constipation. Ramonita denies a change in bowel habits. Ramonita notes melena. Refers stools have been black and soft for the last 2-3 weeks. Ramonita denies bright red blood per rectum. Ramonita denies hemorrhoids. Ramonita notes a distant history of heartburn. Symptoms are well controlled with Protonix 20mg Ramonita denies dysphagia. Ramonita denies a history of ulcers/ peptic ulcer disease. Ramonita denies family history of colon issues. Ramonita has a hx of CAD with stents 2006. Last stress test 2020. EF of 60%. Doesn't follow with cardiology. Takes plavix. Denies CP, SOB, dizziness, palpitations, syncope, edema, recent hospitalizations Ramonita has undergone prior endoscopy. Last colonoscopy & EGD 06/2015 at [facility] with Dr. Lezama. Sedation: Fentanyl 50 micrograms IV, Midazolam 5 mg IV, Diphenhydramine 50 mg IV EGD Impression: - Reflux esophagitis. Biopsied. - Normal stomach. Biopsied. - Normal examined duodenum COLONOSCOPY Impression: - Diverticulosis in the sigmoid colon and in the descending colon. - One 13 mm polyp in the descending colon. Resected and retrieved. Clips were placed. - One 6 mm polyp in the ascending colon. Resected and retrieved. CONVERTED FINAL DIAGNOSIS 1. Stomach, biopsy (A) - Oxyntic mucosa with chronic active gastritis with Helicobacter pylori organisms. 2. Distal esophagus, biopsy (B) - Ulcer. - Gastric-type mucosa with chronic inflammation and foveolar hyperplasia. - Squamous mucosa with regenerative epithelial changes. - Negative for intestinal metaplasia or dysplasia. 3. Ascending colon, biopsy (C) - Fragments of tubular adenoma. 4. Descending colon, biopsy (D) - Tubular adenoma. [facility]/chelsie/06/22/15 CURRENT MEDICATIONS Current Outpatient Medications Medication Sig metoprolol tartrate, short acting, (LOPRESSOR) 100 mg tablet Take 1 tablet by mouth two times a day. tiZANidine (ZANAFLEX) 4 mg tablet Take 0.5-1 tablets by mouth at bedtime as needed (muscle spasms/insomnia). amLODIPine (NORVASC) 10 mg tablet Take 1 tablet by mouth once daily. clopidogrel (PLAVIX) 75 mg tablet Take 1 tablet by mouth once daily. tamsulosin (FLOMAX) 0.4 mg Take 1 capsule by mouth once daily. pantoprazole DR (PROTONIX) 20 mg tablet TAKE 1 TABLET BY MOUTH 1/2 HOUR BEFORE BREAKFAST ON AN EMPTY STOMACH ONCE DAILY timolol maleate (TIMOPTIC) 0.5 % ophthalmic solution latanoprost (XALATAN) 0.005 % ophthalmic solution hydrOXYzine HCl (ATARAX) 25 mg tablet Take 1 tablet by mouth every 8 hours as needed for anxiety. No current facility-administered medications for this visit. 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 cruciate tear, poss. 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 PMH - PAST MEDICAL HISTORY OF 1981 laceration wrist, suicidal gesture Radius fracture 06/21/2013 See scanned documents [facility] Tobacco abuse 05/22/2013 Urinary calculus, unspecified 01/05 Renal stone right side; 3 episodes with stones altogether with extraction in 1960 PAST SURGICAL HISTORY PAST SURGICAL HISTORY Procedure Laterality Date ATHERECTOMY, FEMORAL-POPLITEAL 09/28/2009 right COLONOSCOPY FLX DX W/COLLJ SPEC WHEN PFRMD 06/21/2015 Colonoscopy CORONARY ENDARTERCOMY OPEN ANY METHOD 08/10/2006 Angioplasty with stent ECHOCARDIOGRAM 11/24/2020 11/25/[address] Puentes: LV size and LVSF WNL, EF 55%, structurally normal valves ESOPHAGOGASTRODUODENOSCOPY TRANSORAL DIAGNOSTIC 06/21/2015 EGD PAST SURGICAL HISTORY OF 04/05/1999 Cautery and outfracture of inferior turbinates. Removal fx fragment PAST SURGICAL HISTORY OF 1960 renal stone extraction: PAST SURGICAL HISTORY OF dental extraction PICC LINE INSERT/CONSULT 04/11/2016 SLCTV CATHJ 3RD+ ORD SLCTV ABDL PEL/LXTR BRNCH 09/28/2009 VASECTOMY UNI/BI SPX W/POSTOP SEMEN EXAMS 10/1984 FAMILY HISTORY FAMILY HISTORY Problem Relation Age of Onset Cancer Mother age 42 leukemia None Father father ubknown to pt. Coronary Artery Disease Brother bypass SOCIAL HISTORY Social History Tobacco Use Smoking status: Every Day Current packs/day: 0.00 Average packs/day: 1 pack/day for 63.2 years (63.2 ttl pk-yrs) Types: Cigarettes Start date: 02/05/1959 Last attempt to quit: 04/19/2022 Years since quittin.6 Smokeless tobacco: Never Vaping Use Vaping status: Never Used Substance Use Topics Alcohol use: Yes Comment: Socially Drug use: No REVIEW OF SYMPTOMS: REVIEW OF SYSTEMS: General: The patient denies fatigue, denies weight loss, denies weight gain, denies feeling hot, and feelings of cold. Eyes: The patient denies glaucoma, denies eye injury/surgery, + glasses or contacts. Ear/Nose/Throat: The patient + allergies, denies hayfever, denies ear infections, and denies bloodynoses. Cardiovascular: The patient denies chest pain, denies heart disease, + high blood pressure, denies high cholesterol, and denies poor circulation. Respiratory: The patient denies tuberculosis, denies pneumonia, denies frequent cough, denies shortness of breath, and denies coughing up blood. Gastrointestinal: The patient denies difficulty swallowing, + acid reflux, denies ulcers, denies jaundice/hepatitis, denies gallbladder problems, denies vomiting, + black or tarry stools, denies hemorrhoids, denies bleeding from rectum, denies diverticulitis, denies constipation, denies diarrhea, denies loss of stool control, and denies hernias. Kidney/Bladder: The patient + kidney stones, denies urine infections, and denies bloody urine. Skin: The patient denies a history of skin cancer, denies bleeding/changing moles, and denies a history of skin rash. Neurologic: The patient denies a history of epilepsy/convulsions, denies headaches, denies head/spinal injuries, and denies stroke/TIA. Psychiatric: The patient denies psychiatric medications, denies depression, and denies voices. Endocrine: The patient denies thyroid disorders, denies diabetes, and denies hormonal problems. Hematologic: The patient denies a history of bruising, denies bleeding, and denies anemia. Infections: The patient denies a history of measles and mumps, denies rheumatic fever, and denies sexually transmitted diseases. Musculoskeletal: The patient denies back pain/injury, denies back problems, denies sciatica, deniesknee/foot trouble, denies arthritis, or denies gout. PHYSICAL EXAMINATION: General: The patient is 83 year old, male well nourished, well hydrated in no acute distress. The patient is oriented to time, place, and person. VITALS: There were no vitals taken for this visit. There is no height or weight on file to calculate BMI. HEENT: Normal cephalic, ataumatic, pupils are equally round, sclera are anicteric, mucous membranesare moist, oropharynx is clear. Neck has no masses, asymmetry or lymphadenopathy. Respiratory: Clear to auscultation and percussion. Normal respiratory excursion and pattern. Cardiac: Examination is regular rate and rhythm. Normal S1/S2 Abdominal exam: Soft, nontender, with no palpable masses. No hepatosplenomegaly. No palpable hernias. Extremities: no clubbing, cyanosis or edema. No adenopathy. LABORATORY VALUES: As Noted RADIOLOGIC STUDIES: As Noted Assessment IMPRESSION: +iFOBT, GERD, black stools PLAN: I have reviewed my findings with the surgeon. Will plan for upper and lower endoscopy. We discussed the risks and benefits of the planned endoscopy. I have informed the patient that complications can occur including failure to complete the endoscopy and perforation. Ramonita had the opportunity to ask questions concerning the planned endoscopy. My staff has also explained the procedure to the patient in understandable terms and has given the patient printed material concerning the procedure.Ramonita freely consents to surgery. I plan to use Golytely bowel preparation I have explained to the patient the difference between IV conscious sedation and MAC anesthesia - and I have offered either, according to the patient's wishes. I have explained that with IV conscioussedation there is no anesthesia provider available and therefore there is a limitation of the amount of IV medications that can be given and that the patient may wake up in the middle of the procedure and/or experience pain/discomfort during the procedure. Further discussion was done and the patient was given the opportunity to ask questions and all questions were answered. Ramonita chooses IV conscious sedation. Ramonita was counseled that if there are changes in his/her medical condition, to let the office know if surgery should proceed. If there are changes in patient's medical condition from time of this encounter to the day of the procedure that preclude anesthesia, patient may have procedure cancelled for patient's safety. Diagnoses: (K92.1) Black stools (primary encounter diagnosis) (R19.5) Positive occult stool blood test (K21.9) Gastroesophageal reflux disease, unspecified whether esophagitis present Consultation requested by Danae Fuentes CNP for an opinion regarding +iFOBT. My final recommendations will be communicated back to the requesting physician by way of shared Medical record or letter to requesting physician via US mail. Portions of this documentation were copied and pasted from previous office visit notes in order to provide a cohesive continuity of the history. The note has been reviewed and edited and updated as necessary. Tomeka Mclaughlin APRN.FRETTED INSTRUMENT REPAIRER [facility]11-20-2024 History and physical note* Star Grande MD - 12/26/2023 10:45 AM EST UPDATED PROCEDURAL SEDATION HISTORY AND PHYSICAL EXAMINATION SERVICE DATE: 12/26/2023 SERVICE TIME: 11:33 AM PHYSICAL EXAM MUST BE COMPLETED ON ADMISSION PROCEDURE: Procedure Indications: The History and Physical (completed in the past 30 days) has been reviewed and the patient has beenexamined. The contents accurately reflect the patient's condition with the following additions or revisions since the H&P was completed. ASA Class: ASA Class: Patient with severe systemic disease Examination indicates no changes. AIRWAY: Airway Visualization of Uvula: Yes Mouth opening greater than 2 fingerbreadths: Yes Neck Full Range of Motion: Yes LUNGS: Lungs clear to auscultation CARDIAC: Regular rhythm,Regular rate Provisional Diagnosis/Treatment Plan: heme positive stools - EGd and Colonscopy Sedation Goal: Moderate This H&P can be found in the attached. SIGNATURE: Star Grande MD PATIENT NAME: Ramonita El DATE: December 26, 2023 TIME: 11:33 AM Source Note - Star Grande MD - 12/26/2023 10:45 AM EST HISTORY AND PHYSICAL Ramonita El : 1940 REFERRING PHYSICIAN: Danae Fuentes [address] [facility] [id number] CHIEF COMPLAINT: No chief complaint on file. HPI: Ramonita is a 83 year old male referred for endoscopy. Ramonita notes +iFOBT. Ramonita denies abdominal pain.. Ramonita denies diarrhea. Ramonita denies constipation. Ramonita denies a change in bowel habits. Ramonita notes melena. Refers stools have been black and soft for the last 2-3 weeks. Ramonita denies bright red blood per rectum. Ramonita denies hemorrhoids. Ramonita notes a distant history of heartburn. Symptoms are well controlled with Protonix 20mg Ramonita denies dysphagia. Ramonita denies a history of ulcers/ peptic ulcer disease. Ramonita denies family history of colon issues. Ramonita has a hx of CAD with stents 2006. Last stress test 2020. EF of 60%. Doesn't follow with cardiology. Takes plavix. Denies CP, SOB, dizziness, palpitations, syncope, edema, recent hospitalizations Ramonita has undergone prior endoscopy. Last colonoscopy & EGD 06/2015 at [facility] with Dr. Lezama. Sedation: Fentanyl 50 micrograms IV, Midazolam 5 mg IV, Diphenhydramine 50 mg IV EGD Impression: - Reflux esophagitis. Biopsied. - Normal stomach. Biopsied. - Normal examined duodenum COLONOSCOPY Impression: - Diverticulosis in the sigmoid colon and in the descending colon. - One 13 mm polyp in the descending colon. Resected and retrieved. Clips were placed. - One 6 mm polyp in the ascending colon. Resected and retrieved. CONVERTED FINAL DIAGNOSIS 1. Stomach, biopsy (A) - Oxyntic mucosa with chronic active gastritis with Helicobacter pylori organisms. 2. Distal esophagus, biopsy (B) - Ulcer. - Gastric-type mucosa with chronic inflammation and foveolar hyperplasia. - Squamous mucosa with regenerative epithelial changes. - Negative for intestinal metaplasia or dysplasia. 3. Ascending colon, biopsy (C) - Fragments of tubular adenoma. 4. Descending colon, biopsy (D) - Tubular adenoma. [facility]/06/22/15 CURRENT MEDICATIONS Current Outpatient Medications Medication Sig metoprolol tartrate, short acting, (LOPRESSOR) 100 mg tablet Take 1 tablet by mouth two times a day. tiZANidine (ZANAFLEX) 4 mg tablet Take 0.5-1 tablets by mouth at bedtime as needed (muscle spasms/insomnia). amLODIPine (NORVASC) 10 mg tablet Take 1 tablet by mouth once daily. clopidogrel (PLAVIX) 75 mg tablet Take 1 tablet by mouth once daily. tamsulosin (FLOMAX) 0.4 mg Take 1 capsule by mouth once daily. pantoprazole DR (PROTONIX) 20 mg tablet TAKE 1 TABLET BY MOUTH 1/2 HOUR BEFORE BREAKFAST ON AN EMPTY STOMACH ONCE DAILY timolol maleate (TIMOPTIC) 0.5 % ophthalmic solution latanoprost (XALATAN) 0.005 % ophthalmic solution hydrOXYzine HCl (ATARAX) 25 mg tablet Take 1 tablet by mouth every 8 hours as needed for anxiety. No current facility-administered medications for this visit. 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 cruciate tear, poss. 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 PMH - PAST MEDICAL HISTORY OF 1981 laceration wrist, suicidal gesture Radius fracture 06/21/2013 See scanned documents [facility] Tobacco abuse 05/22/2013 Urinary calculus, unspecified 01/05 Renal stone right side; 3 episodes with stones altogether with extraction in 1960 PAST SURGICAL HISTORY PAST SURGICAL HISTORY Procedure Laterality Date ATHERECTOMY, FEMORAL-POPLITEAL 09/28/2009 right COLONOSCOPY FLX DX W/COLLJ SPEC WHEN PFRMD 06/21/2015 Colonoscopy CORONARY ENDARTERCOMY OPEN ANY METHOD 08/10/2006 Angioplasty with stent ECHOCARDIOGRAM 11/24/2020 11/25/[address] Puentes: LV size and LVSF WNL, EF 55%, structurally normal valves ESOPHAGOGASTRODUODENOSCOPY TRANSORAL DIAGNOSTIC 06/21/2015 EGD PAST SURGICAL HISTORY OF 04/05/1999 Cautery and outfracture of inferior turbinates. Removal fx fragment PAST SURGICAL HISTORY OF 1960 renal stone extraction: PAST SURGICAL HISTORY OF dental extraction PICC LINE INSERT/CONSULT 04/11/2016 SLCTV CATHJ 3RD+ ORD SLCTV ABDL PEL/LXTR BRNCH 09/28/2009 VASECTOMY UNI/BI SPX W/POSTOP SEMEN EXAMS 10/1984 FAMILY HISTORY FAMILY HISTORY Problem Relation Age of Onset Cancer Mother age 42 leukemia None Father father ubknown to pt. Coronary Artery Disease Brother bypass SOCIAL HISTORY Social History Tobacco Use Smoking status: Every Day Current packs/day: 0.00 Average packs/day: 1 pack/day for 63.2 years (63.2 ttl pk-yrs) Types: Cigarettes Start date: 02/05/1959 Last attempt to quit: 04/19/2022 Years since quittin.6 Smokeless tobacco: Never Vaping Use Vaping status: Never Used Substance Use Topics Alcohol use: Yes Comment: Socially Drug use: No REVIEW OF SYMPTOMS: REVIEW OF SYSTEMS: General: The patient denies fatigue, denies weight loss, denies weight gain, denies feeling hot, and feelings of cold. Eyes: The patient denies glaucoma, denies eye injury/surgery, + glasses or contacts. Ear/Nose/Throat: The patient + allergies, denies hayfever, denies ear infections, and denies bloodynoses. Cardiovascular: The patient denies chest pain, denies heart disease, + high blood pressure, denies high cholesterol, and denies poor circulation. Respiratory: The patient denies tuberculosis, denies pneumonia, denies frequent cough, denies shortness of breath, and denies coughing up blood. Gastrointestinal: The patient denies difficulty swallowing, + acid reflux, denies ulcers, denies jaundice/hepatitis, denies gallbladder problems, denies vomiting, + black or tarry stools, denies hemorrhoids, denies bleeding from rectum, denies diverticulitis, denies constipation, denies diarrhea, denies loss of stool control, and denies hernias. Kidney/Bladder: The patient + kidney stones, denies urine infections, and denies bloody urine. Skin: The patient denies a history of skin cancer, denies bleeding/changing moles, and denies a history of skin rash. Neurologic: The patient denies a history of epilepsy/convulsions, denies headaches, denies head/spinal injuries, and denies stroke/TIA. Psychiatric: The patient denies psychiatric medications, denies depression, and denies voices. Endocrine: The patient denies thyroid disorders, denies diabetes, and denies hormonal problems. Hematologic: The patient denies a history of bruising, denies bleeding, and denies anemia. Infections: The patient denies a history of measles and mumps, denies rheumatic fever, and denies sexually transmitted diseases. Musculoskeletal: The patient denies back pain/injury, denies back problems, denies sciatica, deniesknee/foot trouble, denies arthritis, or denies gout. PHYSICAL EXAMINATION: General: The patient is 83 year old, male well nourished, well hydrated in no acute distress. The patient is oriented to time, place, and person. VITALS: There were no vitals taken for this visit. There is no height or weight on file to calculate BMI. HEENT: Normal cephalic, ataumatic, pupils are equally round, sclera are anicteric, mucous membranesare moist, oropharynx is clear. Neck has no masses, asymmetry or lymphadenopathy. Respiratory: Clear to auscultation and percussion. Normal respiratory excursion and pattern. Cardiac: Examination is regular rate and rhythm. Normal S1/S2 Abdominal exam: Soft, nontender, with no palpable masses. No hepatosplenomegaly. No palpable hernias. Extremities: no clubbing, cyanosis or edema. No adenopathy. LABORATORY VALUES: As Noted RADIOLOGIC STUDIES: As Noted Assessment IMPRESSION: +iFOBT, GERD, black stools PLAN: I have reviewed my findings with the surgeon. Will plan for upper and lower endoscopy. We discussed the risks and benefits of the planned endoscopy. I have informed the patient that complications can occur including failure to complete the endoscopy and perforation. Ramonita had the opportunity to ask questions concerning the planned endoscopy. My staff has also explained the procedure to the patient in understandable terms and has given the patient printed material concerning the procedure.Ramonita freely consents to surgery. I plan to use Golytely bowel preparation I have explained to the patient the difference between IV conscious sedation and MAC anesthesia - and I have offered either, according to the patient's wishes. I have explained that with IV conscioussedation there is no anesthesia provider available and therefore there is a limitation of the amount of IV medications that can be given and that the patient may wake up in the middle of the procedure and/or experience pain/discomfort during the procedure. Further discussion was done and the patient was given the opportunity to ask questions and all questions were answered. Ramonita chooses IV conscious sedation. Ramonita was counseled that if there are changes in his/her medical condition, to let the office know if surgery should proceed. If there are changes in patient's medical condition from time of this encounter to the day of the procedure that preclude anesthesia, patient may have procedure cancelled for patient's safety. Diagnoses: (K92.1) Black stools (primary encounter diagnosis) (R19.5) Positive occult stool blood test (K21.9) Gastroesophageal reflux disease, unspecified whether esophagitis present Consultation requested by Danae Fuentes CNP for an opinion regarding +iFOBT. My final recommendations will be communicated back to the requesting physician by way of shared Medical record or letter to requesting physician via [place] mail. Portions of this documentation were copied and pasted from previous office visit notes in order to provide a cohesive continuity of the history. The note has been reviewed and edited and updated as necessary. Tomeka Mclaughlin APRN.CNP * Star Grande MD - 12/26/2023 10:45 AM EST HISTORY AND PHYSICAL Ramonita El : 1940 REFERRING PHYSICIAN: Danae Fuentes [address] [facility] [address] CHIEF COMPLAINT: No chief complaint on file. HPI: Ramonita is a 83 year old male referred for endoscopy. Ramonita notes +iFOBT. Ramonita denies abdominal pain.. Ramonita denies diarrhea. Ramonita denies constipation. Ramonita denies a change in bowel habits. Ramonita notes melena. Refers stools have been black and soft for the last 2-3 weeks. Ramonita denies bright red blood per rectum. Ramonita denies hemorrhoids. Ramonita notes a distant history of heartburn. Symptoms are well controlled with Protonix 20mg Ramonita denies dysphagia. Ramonita denies a history of ulcers/ peptic ulcer disease. Ramonita denies family history of colon issues. Ramonita has a hx of CAD with stents 2006. Last stress test 2020. EF of 60%. Doesn't follow with cardiology. Takes plavix. Denies CP, SOB, dizziness, palpitations, syncope, edema, recent hospitalizations Ramonita has undergone prior endoscopy. Last colonoscopy & EGD 06/2015 at [facility] with Dr. Lezama. Sedation: Fentanyl 50 micrograms IV, Midazolam 5 mg IV, Diphenhydramine 50 mg IV EGD Impression: - Reflux esophagitis. Biopsied. - Normal stomach. Biopsied. - Normal examined duodenum COLONOSCOPY Impression: - Diverticulosis in the sigmoid colon and in the descending colon. - One 13 mm polyp in the descending colon. Resected and retrieved. Clips were placed. - One 6 mm polyp in the ascending colon. Resected and retrieved. CONVERTED FINAL DIAGNOSIS 1. Stomach, biopsy (A) - Oxyntic mucosa with chronic active gastritis with Helicobacter pylori organisms. 2. Distal esophagus, biopsy (B) - Ulcer. - Gastric-type mucosa with chronic inflammation and foveolar hyperplasia. - Squamous mucosa with regenerative epithelial changes. - Negative for intestinal metaplasia or dysplasia. 3. Ascending colon, biopsy (C) - Fragments of tubular adenoma. 4. Descending colon, biopsy (D) - Tubular adenoma. [facility]/06/22/15 CURRENT MEDICATIONS Current Outpatient Medications Medication Sig metoprolol tartrate, short acting, (LOPRESSOR) 100 mg tablet Take 1 tablet by mouth two times a day. tiZANidine (ZANAFLEX) 4 mg tablet Take 0.5-1 tablets by mouth at bedtime as needed (muscle spasms/insomnia). amLODIPine (NORVASC) 10 mg tablet Take 1 tablet by mouth once daily. clopidogrel (PLAVIX) 75 mg tablet Take 1 tablet by mouth once daily. tamsulosin (FLOMAX) 0.4 mg Take 1 capsule by mouth once daily. pantoprazole DR (PROTONIX) 20 mg tablet TAKE 1 TABLET BY MOUTH 1/2 HOUR BEFORE BREAKFAST ON AN EMPTY STOMACH ONCE DAILY timolol maleate (TIMOPTIC) 0.5 % ophthalmic solution latanoprost (XALATAN) 0.005 % ophthalmic solution hydrOXYzine HCl (ATARAX) 25 mg tablet Take 1 tablet by mouth every 8 hours as needed for anxiety. No current facility-administered medications for this visit. 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 cruciate tear, poss. 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 PMH - PAST MEDICAL HISTORY OF 1981 laceration wrist, suicidal gesture Radius fracture 06/21/2013 See scanned documents [facility] Tobacco abuse 05/22/2013 Urinary calculus, unspecified 01/05 Renal stone right side; 3 episodes with stones altogether with extraction in 1960 PAST SURGICAL HISTORY PAST SURGICAL HISTORY Procedure Laterality Date ATHERECTOMY, FEMORAL-POPLITEAL 09/28/2009 right COLONOSCOPY FLX DX W/COLLJ SPEC WHEN PFRMD 06/21/2015 Colonoscopy CORONARY ENDARTERCOMY OPEN ANY METHOD 08/10/2006 Angioplasty with stent ECHOCARDIOGRAM 11/24/2020 11/25/[address] Puentes: LV size and LVSF WNL, EF 55%, structurally normal valves ESOPHAGOGASTRODUODENOSCOPY TRANSORAL DIAGNOSTIC 06/21/2015 EGD PAST SURGICAL HISTORY OF 04/05/1999 Cautery and outfracture of inferior turbinates. Removal fx fragment PAST SURGICAL HISTORY OF 1960 renal stone extraction: PAST SURGICAL HISTORY OF dental extraction PICC LINE INSERT/CONSULT 04/11/2016 SLCTV CATHJ 3RD+ ORD SLCTV ABDL PEL/LXTR BRNCH 09/28/2009 VASECTOMY UNI/BI SPX W/POSTOP SEMEN EXAMS 10/1984 FAMILY HISTORY FAMILY HISTORY Problem Relation Age of Onset Cancer Mother age 42 leukemia None Father father ubknown to pt. Coronary Artery Disease Brother bypass SOCIAL HISTORY Social History Tobacco Use Smoking status: Every Day Current packs/day: 0.00 Average packs/day: 1 pack/day for 63.2 years (63.2 ttl pk-yrs) Types: Cigarettes Start date: 02/05/1959 Last attempt to quit: 04/19/2022 Years since quittin.6 Smokeless tobacco: Never Vaping Use Vaping status: Never Used Substance Use Topics Alcohol use: Yes Comment: Socially Drug use: No REVIEW OF SYMPTOMS: REVIEW OF SYSTEMS: General: The patient denies fatigue, denies weight loss, denies weight gain, denies feeling hot, and feelings of cold. Eyes: The patient denies glaucoma, denies eye injury/surgery, + glasses or contacts. Ear/Nose/Throat: The patient + allergies, denies hayfever, denies ear infections, and denies bloodynoses. Cardiovascular: The patient denies chest pain, denies heart disease, + high blood pressure, denies high cholesterol, and denies poor circulation. Respiratory: The patient denies tuberculosis, denies pneumonia, denies frequent cough, denies shortness of breath, and denies coughing up blood. Gastrointestinal: The patient denies difficulty swallowing, + acid reflux, denies ulcers, denies jaundice/hepatitis, denies gallbladder problems, denies vomiting, + black or tarry stools, denies hemorrhoids, denies bleeding from rectum, denies diverticulitis, denies constipation, denies diarrhea, denies loss of stool control, and denies hernias. Kidney/Bladder: The patient + kidney stones, denies urine infections, and denies bloody urine. Skin: The patient denies a history of skin cancer, denies bleeding/changing moles, and denies a history of skin rash. Neurologic: The patient denies a history of epilepsy/convulsions, denies headaches, denies head/spinal injuries, and denies stroke/TIA. Psychiatric: The patient denies psychiatric medications, denies depression, and denies voices. Endocrine: The patient denies thyroid disorders, denies diabetes, and denies hormonal problems. Hematologic: The patient denies a history of bruising, denies bleeding, and denies anemia. Infections: The patient denies a history of measles and mumps, denies rheumatic fever, and denies sexually transmitted diseases. Musculoskeletal: The patient denies back pain/injury, denies back problems, denies sciatica, deniesknee/foot trouble, denies arthritis, or denies gout. PHYSICAL EXAMINATION: General: The patient is 83 year old, male well nourished, well hydrated in no acute distress. The patient is oriented to time, place, and person. VITALS: There were no vitals taken for this visit. There is no height or weight on file to calculate BMI. HEENT: Normal cephalic, ataumatic, pupils are equally round, sclera are anicteric, mucous membranesare moist, oropharynx is clear. Neck has no masses, asymmetry or lymphadenopathy. Respiratory: Clear to auscultation and percussion. Normal respiratory excursion and pattern. Cardiac: Examination is regular rate and rhythm. Normal S1/S2 Abdominal exam: Soft, nontender, with no palpable masses. No hepatosplenomegaly. No palpable hernias. Extremities: no clubbing, cyanosis or edema. No adenopathy. LABORATORY VALUES: As Noted RADIOLOGIC STUDIES: As Noted Assessment IMPRESSION: +iFOBT, GERD, black stools PLAN: I have reviewed my findings with the surgeon. Will plan for upper and lower endoscopy. We discussed the risks and benefits of the planned endoscopy. I have informed the patient that complications can occur including failure to complete the endoscopy and perforation. Ramonita had the opportunity to ask questions concerning the planned endoscopy. My staff has also explained the procedure to the patient in understandable terms and has given the patient printed material concerning the procedure.Ramonita freely consents to surgery. I plan to use Golytely bowel preparation I have explained to the patient the difference between IV conscious sedation and MAC anesthesia - and I have offered either, according to the patient's wishes. I have explained that with IV conscioussedation there is no anesthesia provider available and therefore there is a limitation of the amount of IV medications that can be given and that the patient may wake up in the middle of the procedure and/or experience pain/discomfort during the procedure. Further discussion was done and the patient was given the opportunity to ask questions and all questions were answered. Ramonita chooses IV conscious sedation. Ramonita was counseled that if there are changes in his/her medical condition, to let the office know if surgery should proceed. If there are changes in patient's medical condition from time of this encounter to the day of the procedure that preclude anesthesia, patient may have procedure cancelled for patient's safety. Diagnoses: (K92.1) Black stools (primary encounter diagnosis) (R19.5) Positive occult stool blood test (K21.9) Gastroesophageal reflux disease, unspecified whether esophagitis present Consultation requested by Danae Fuentes CNP for an opinion regarding +iFOBT. My final recommendations will be communicated back to the requesting physician by way of shared Medical record or letter to requesting physician via US mail. Portions of this documentation were copied and pasted from previous office visit notes in order to provide a cohesive continuity of the history. The note has been reviewed and edited and updated as necessary. Tomeka Mclaughlin APRN.FRETTED INSTRUMENT REPAIRER documented in this encounterL[facility] Telephone encounter Note * Telephone Encounter - Heavenly Perez - 12/06/2023 2:02 PM EDT 12-26-2023 Colon/EGD [facility]10-[facility] Miscellaneous Notes* Telephone Encounter - Heavenly Perez - 12/06/2023 2:02 PM EDT 12-26-2023 Colon/EGD [facility] documented in this encounterLake[facility]10-31-[facility]24 History of Present illness Narrative* Tomeka Mclaughlin APRN.FRETTED INSTRUMENT REPAIRER - 12/06/2023 1:30 PM EDT HISTORY AND PHYSICAL Ramonita El : 1940 REFERRING PHYSICIAN: Danae Fuentes [address] [facility] [id number] CHIEF COMPLAINT: No chief complaint on file. HPI: Ramonita is a 83 year old male referred for endoscopy. Ramonita notes +iFOBT. Ramonita denies abdominal pain.. Ramonita denies diarrhea. Ramonita denies constipation. Ramonita denies a change in bowel habits. Ramonita notes melena. Refers stools have been black and soft for the last 2-3 weeks. Ramonita denies bright red blood per rectum. Ramonita denies hemorrhoids. Ramonita notes a distant history of heartburn. Symptoms are well controlled with Protonix 20mg Ramonita denies dysphagia. Ramonita denies a history of ulcers/ peptic ulcer disease. Ramonita denies family history of colon issues. Ramonita has a hx of CAD with stents 2006. Last stress test 2020. EF of 60%. Doesn't follow with cardiology. Takes plavix. Denies CP, SOB, dizziness, palpitations, syncope, edema, recent hospitalizations Ramonita has undergone prior endoscopy. Last colonoscopy & EGD 06/2015 at [facility] with Dr. Lezama. Sedation: Fentanyl 50 micrograms IV, Midazolam 5 mg IV, Diphenhydramine 50 mg IV EGD Impression: - Reflux esophagitis. Biopsied. - Normal stomach. Biopsied. - Normal examined duodenum COLONOSCOPY Impression: - Diverticulosis in the sigmoid colon and in the descending colon. - One 13 mm polyp in the descending colon. Resected and retrieved. Clips were placed. - One 6 mm polyp in the ascending colon. Resected and retrieved. CONVERTED FINAL DIAGNOSIS 1. Stomach, biopsy (A) - Oxyntic mucosa with chronic active gastritis with Helicobacter pylori organisms. 2. Distal esophagus, biopsy (B) - Ulcer. - Gastric-type mucosa with chronic inflammation and foveolar hyperplasia. - Squamous mucosa with regenerative epithelial changes. - Negative for intestinal metaplasia or dysplasia. 3. Ascending colon, biopsy (C) - Fragments of tubular adenoma. 4. Descending colon, biopsy (D) - Tubular adenoma. [facility]/06/22/15 Current Outpatient Medications Medication Sig metoprolol tartrate, short acting, (LOPRESSOR) 100 mg tablet Take 1 tablet by mouth two times a day. tiZANidine (ZANAFLEX) 4 mg tablet Take 0.5-1 tablets by mouth at bedtime as needed (muscle spasms/insomnia). amLODIPine (NORVASC) 10 mg tablet Take 1 tablet by mouth once daily. clopidogrel (PLAVIX) 75 mg tablet Take 1 tablet by mouth once daily. tamsulosin (FLOMAX) 0.4 mg Take 1 capsule by mouth once daily. pantoprazole DR (PROTONIX) 20 mg tablet TAKE 1 TABLET BY MOUTH 1/2 HOUR BEFORE BREAKFAST ON AN EMPTY STOMACH ONCE DAILY timolol maleate (TIMOPTIC) 0.5 % ophthalmic solution latanoprost (XALATAN) 0.005 % ophthalmic solution hydrOXYzine HCl (ATARAX) 25 mg tablet Take 1 tablet by mouth every 8 hours as needed for anxiety. No current facility-administered medications for this visit. 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 cruciate tear, poss. 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 PMH - PAST MEDICAL HISTORY OF 1981 laceration wrist, suicidal gesture Radius fracture 06/21/2013 See scanned documents [facility] Tobacco abuse 05/22/2013 Urinary calculus, unspecified 01/05 Renal stone right side; 3 episodes with stones altogether with extraction in 1960 PAST SURGICAL HISTORY Procedure Laterality Date ATHERECTOMY, FEMORAL-POPLITEAL 09/28/2009 right COLONOSCOPY FLX DX W/COLLJ SPEC WHEN PFRMD 06/21/2015 Colonoscopy CORONARY ENDARTERCOMY OPEN ANY METHOD 08/10/2006 Angioplasty with stent ECHOCARDIOGRAM 11/24/2020 11/25/[address] Puentes: LV size and LVSF WNL, EF 55%, structurally normal valves ESOPHAGOGASTRODUODENOSCOPY TRANSORAL DIAGNOSTIC 06/21/2015 EGD PAST SURGICAL HISTORY OF 04/05/1999 Cautery and outfracture of inferior turbinates. Removal fx fragment PAST SURGICAL HISTORY OF 1960 renal stone extraction: PAST SURGICAL HISTORY OF dental extraction PICC LINE INSERT/CONSULT 04/11/2016 SLCTV CATHJ 3RD+ ORD SLCTV ABDL PEL/LXTR BRNCH 09/28/2009 VASECTOMY UNI/BI SPX W/POSTOP SEMEN EXAMS 10/1984 FAMILY HISTORY Problem Relation Age of Onset Cancer Mother age 42 leukemia None Father father ubknown to pt. Coronary Artery Disease Brother bypass Social History Tobacco Use Smoking status: Every Day Current packs/day: 0.00 Average packs/day: 1 pack/day for 63.2 years (63.2 ttl pk-yrs) Types: Cigarettes Start date: 02/05/1959 Last attempt to quit: 04/19/2022 Years since quittin.6 Smokeless tobacco: Never Vaping Use Vaping status: Never Used Substance Use Topics Alcohol use: Yes Comment: Socially Drug use: No REVIEW OF SYMPTOMS: REVIEW OF SYSTEMS: General: The patient denies fatigue, denies weight loss, denies weight gain, denies feeling hot, and feelings of cold. Eyes: The patient denies glaucoma, denies eye injury/surgery, + glasses or contacts. Ear/Nose/Throat: The patient + allergies, denies hayfever, denies ear infections, and denies bloodynoses. Cardiovascular: The patient denies chest pain, denies heart disease, + high blood pressure, denies high cholesterol, and denies poor circulation. Respiratory: The patient denies tuberculosis, denies pneumonia, denies frequent cough, denies shortness of breath, and denies coughing up blood. Gastrointestinal: The patient denies difficulty swallowing, + acid reflux, denies ulcers, denies jaundice/hepatitis, denies gallbladder problems, denies vomiting, + black or tarry stools, denies hemorrhoids, denies bleeding from rectum, denies diverticulitis, denies constipation, denies diarrhea, denies loss of stool control, and denies hernias. Kidney/Bladder: The patient + kidney stones, denies urine infections, and denies bloody urine. Skin: The patient denies a history of skin cancer, denies bleeding/changing moles, and denies a history of skin rash. Neurologic: The patient denies a history of epilepsy/convulsions, denies headaches, denies head/spinal injuries, and denies stroke/TIA. Psychiatric: The patient denies psychiatric medications, denies depression, and denies voices. Endocrine: The patient denies thyroid disorders, denies diabetes, and denies hormonal problems. Hematologic: The patient denies a history of bruising, denies bleeding, and denies anemia. Infections: The patient denies a history of measles and mumps, denies rheumatic fever, and denies sexually transmitted diseases. Musculoskeletal: The patient denies back pain/injury, denies back problems, denies sciatica, deniesknee/foot trouble, denies arthritis, or denies gout. PHYSICAL EXAMINATION: General: The patient is 83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 delivery from his Mail Order pharmacy for about another 45 days. Pt asking if provider would send one-time script to local pharmacy for 45 pills, if agreeable. Script pended. No call back needed to pt unless unable to complete request. Thank you. documented in this [facility]10-12-2023 Miscellaneous Notes* Telephone Encounter - Vandana Carreon - 11/16/2022 3:00 PM EDT Patient has been identified by name and date of : Yes Requested Prescriptions Pending Prescriptions Disp Refills pantoprazole DR (PROTONIX) 20 mg tablet 90 tablet 3 Sig: TAKE 1 TABLET BY MOUTH 1/2 HOUR BEFORE BREAKFAST ON AN EMPTY STOMACH ONCE DAILY RX INSTRUCTIONS: Patient aware RX will be sent to pharmacy. No need to notify patient. Vandana Rincon documented in this [facility]09-11-2023 Miscellaneous Notes* Telephone Encounter - Nadine Serrano Ma - 10/16/2022 10:58 AM EDT Letter mailed to pt home of results. Nadine Serrano MA * Telephone Encounter - Nadine Serrano Ma - 10/16/2022 10:56 AM EDT ----- Message from Ida Hatfield PA-C sent at 10/13/2022 5:03 PM EDT ----- Hi Mirza, Xray shows mild spurring and wear on back joints, mild disc space narrowing L1- L2. These are realtively mild findings. Ida Hernandez PA-C documented in this encounterLake[facility]09-05-2023 History of Present illness Narrative* Clint Lucero RT(R) - 10/10/2022 9:50 AM EDT Radiology Service Progress Note PATIENT NAME: Ramonita El DATE OF SERVICE: October 10, 2022 TIME: 10:17 AM PATIENT IDENTITY VERIFICATION COMPLETED USING TWO (2) IDENTIFIERS: Name and Date of confirmedby patient verbally. FALL SCREENING: Has the patient had 2 falls in the last year or 1 fall with injury or currently using an Ambulatory Assistive Device (Walker, Cane, Wheelchair, Crutches, etc.)? No PATIENT GENDER DATA: Male PATIENT RELEVANT IMPLANT DATA REVIEWED: Not Applicable RADIOLOGY DEPARTMENT: General X-ray: Exam(s) Completed: Spine X-Ray(s): Lumbar AP / LAT / L5-S1 PERIPHERAL IV DATA: Not applicable SIGNED BY: RT Fili(R) October 10, 2022 10:17 AM documented in this encounterLake[facility]09-05-2023 Instructions* Patient Instructions* Ida Hatfield PA-C - 10/10/2022 9:36 AM EDT Drink fluids through the day up about 5p and then stop. documented in this encounterLake[facility]09-05-2023 History of Present illness Narrative* Ida Hatfield PA-C - 10/10/2022 8:40 AM EDT 82 year old male presents for a 6 month follow up. Notes get tightness in neck periodically, a couple times a wee to once a month. Makes him sick to stomach and doesn't want to eat. S/p coronary artery stent placement (primary encounter diagnosis) Stented coronary artery History of endarterectomy Essential hypertension, benign Peripheral arterial disease (hcc) Cardiovascular interval hx: feels everything is going pretty well Current meds: Metoprolol 100 mg daily Amlodipine 10 mg daily Clopidogrel 75 mg daily Use of NTG: No Chest pain, arm, jaw pain, neck, or upper back pain suggestive of angina: No. SOB: No Dyspnea with exertion: No orthopnea: No Cough : A little cough now and then. racing or irregular heartbeats: No palpitations: No syncopal sx: No Headache: Yes. Continued intermittent since he quit smoking. Refers to severe shooting pain on right side of head. Unexplainable fatigue No Leg swelling: No Nausea: No diaphoresis: No Heartburn: No Claudication: gets leg cramps with walking or trying to work. Smoking: No Following Low cholesterol, high fiber diet? Yes If on statin: muscle aches? N/A If on statin: GI sx or diarrhea? N/A Additional history notes feels like looking through a tunnel when in bright sunlight. . Lab review: Component Latest Ref Rng & Units 07/01/2019 02/26/2020 09/23/2020 04/07/2022 WBC 3.70 - 11.00 k/uL 10.63 RBC 4.20 - 6.00 m/uL 4.99 Hemoglobin 13.0 - 17.0 g/dL 15.7 Hematocrit 39.0 - 51.0 % 45.1 MCV 80.0 - 100.0 fL 90.4 MCH 26.0 - 34.0 pg 31.5 MCHC 30.5 - 36.0 g/dL 34.8 RDW-CV 11.5 - 15.0 % 13.5 Platelet Count 150 - 400 k/uL 262 MPV 9.0 - 12.7 fL 11.2 Neut% % 89.3 Abs Neut (ANC) 1.45 - 7.50 k/uL 9.49 (H) Lymph% % 7.3 Abs Lymph 1.00 - 4.00 k/uL 0.78 (L) Barrow% % 2.9 Abs Barrow <0.87 k/uL 0.31 Eosin% % 0.0 Abs Eosin <0.46 k/uL <0.03 Baso% % 0.2 Abs Baso <0.11 k/uL <0.03 Immature Gran % % 0.3 IMMATURE GRANS (ABS) <0.10 k/uL 0.03 NRBC /100 WBC 0.0 Absolute nRBC <0.01 k/uL <0.01 DTYPE Auto Protein, Total 6.3 - 8.0 g/dL 7.0 7.0 7.2 Albumin 3.9 - 4.9 g/dL 4.3 4.2 4.2 Calcium 8.5 - 10.2 mg/dL 9.3 9.7 9.7 Bilirubin, Total 0.2 - 1.3 mg/dL 0.6 0.3 0.3 Alkaline Phosphatase 38 - 113 U/L 86 96 96 AST 14 - 40 U/L 25 24 14 Glucose 74 - 99 mg/dL 119 (H) 93 141 (H) BUN 9 - 24 mg/dL 16 18 17 Creatinine 0.73 - 1.22 mg/dL 0.88 0.80 0.78 Sodium 136 - 144 mmol/L 141 141 140 Potassium 3.7 - 5.1 mmol/L 3.9 4.5 4.5 Chloride 97 - 105 mmol/L 102 108 (H) 105 CO2 22 - 30 mmol/L 24 23 21 (L) Anion Gap 9 - 18 mmol/L 15 10 14 ALT 10 - 54 U/L 22 25 14 eGFR- >60 >60 eGFR-All Other Races . >60 >60 eGFR >=60 mL/min/1.73m 90 Cholesterol, Total <200 mg/dL 232 (H) 197 Triglyceride <150 mg/dL 131 145 HDL Cholesterol >39 mg/dL 39 (L) 32 (L) LDL Cholesterol <100 mg/dL 167 (H) 136 (H) Non HDL Cholesterol <130 mg/dL 193 (H) 165 (H) Fasting Time hrs 12 12 VLDL Cholesterol <30 mg/dL 26 29 TC:HDL Ratio <5.10 5.95 (H) 6.16 (H) LDL:HDL Ratio <2.54 4.28 (H) 4.25 (H) Magnesium 1.7 - 2.3 mg/dL 1.9 Chronic interstitial lung disease (hcc) Breathing is doing well. Bph with obstruction/lower urinary tract symptoms Current medications: Tamsulosin 0.4 mg 2 capsules at bedtime. Has not been taking 2 capsules. Has only been taking one. States medication is not helping. States he's getting up about 4x a night to urinate. Drinking Gastroesophageal reflux disease, unspecified whether esophagitis present Constipation Current medication: Pantoprazole DR 20mg daily PEG 3350 17g daily with 8oz water. Current symptoms: None. Last Mg level if on PPI chronically: 1.9 Heartburn is controlled: Yes. Dysphagia: No. Bloody or black stools: No. Bowel changes: No. 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 cruciate tear, poss. 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 PMH - PAST MEDICAL HISTORY OF 1981 laceration wrist, suicidal gesture Radius fracture 06/21/2013 See scanned documents [facility] Tobacco abuse 05/22/2013 Urinary calculus, unspecified 01/05 Renal stone right side; 3 episodes with stones altogether with extraction in 196 PAST SURGICAL HISTORY Procedure Laterality Date ATHERECTOMY, FEMORAL-POPLITEAL 09/28/2009 right COLONOSCOPY FLX DX W/COLLJ SPEC WHEN PFRMD 06/21/2015 Colonoscopy CORONARY ENDARTERCOMY OPEN ANY METHOD 08/10/2006 Angioplasty with stent ECHOCARDIOGRAM 11/24/2020 11/25/[address] Puentes: LV size and LVSF WNL, EF 55%, structurally normal valves ESOPHAGOGASTRODUODENOSCOPY TRANSORAL DIAGNOSTIC 06/21/2015 EGD PAST SURGICAL HISTORY OF 04/05/1999 Cautery and outfracture of inferior turbinates. Removal fx fragment PAST SURGICAL HISTORY OF 1960 renal stone extraction: PAST SURGICAL HISTORY OF dental extraction PICC LINE INSERT/CONSULT 04/11/2016 SLCTV CATHJ 3RD+ ORD SLCTV ABDL PEL/LXTR BRNCH 09/28/2009 VASECTOMY UNI/BI SPX W/POSTOP SEMEN EXAMS 10/1984 Social History Tobacco Use Smoking status: Former Packs/day: 1.00 Years: 56.00 Additional pack years: 0.00 Total pack years: 56.00 Types: Cigarettes Start date: 02/05/1959 Quit date: 04/19/2022 Years since quittin.4 Smokeless tobacco: Never Vaping Use Vaping Use: Never used Substance Use Topics Alcohol use: Yes Comment: Socially Drug use: No ACTIVE PROBLEM LIST Essential Hypertension, Benign Coronary atherosclerosis Bph With Obstruction/Lower Urinary Tract Symptoms Allergic Rhinitis S/P Coronary Artery Stent Placement Hyperlipidemia Ldl Goal <70 Tobacco Abuse Alcohol Abuse Gastroesophageal Reflux Disease Poor Sleep Peripheral Arterial Disease (Hcc) Disorder of Lymphatic Vessel Hypertension Nicotine Dependence Stented Coronary Artery Chronic Anxiety Psoriasis (A Type of Skin Inflammation) Calcium Oxalate Stones Proteinuria Microscopic Hematuria Elevated Psa History of Endarterectomy Chronic Interstitial Lung Disease (Hcc) Pancreatic Calcification Diverticulosis of Colon Adrenal Adenoma, Left Bladder Stone Renal Calculi Encounter for Support and Coordination of Transition of Care Current Outpatient Medications Medication Sig Dispense Refill latanoprost (XALATAN) 0.005 % ophthalmic solution pantoprazole DR (PROTONIX) 20 mg tablet TAKE 1 TABLET BY MOUTH 1/2 HOUR BEFORE BREAKFAST ON AN EMPTY STOMACH ONCE DAILY 90 tablet 3 metoprolol tartrate, short acting, (LOPRESSOR) 100 mg tablet Take 1 tablet by mouth twice daily. 180 tablet 3 tamsulosin (FLOMAX) 0.4 mg Take 2 capsules by mouth daily at bedtime. 180 capsule 3 amLODIPine (NORVASC) 10 mg tablet Take 1 tablet by mouth once daily. 90 tablet 3 clopidogrel (PLAVIX) 75 mg tablet Take 1 tablet by mouth once daily. 90 tablet 3 hydrOXYzine HCl (ATARAX) 25 mg tablet Take 1 tablet by mouth every 8 hours as needed for anxiety. 90 tablet 3 No current facility-administered medications for this visit. SHINGRIX VACCINE(1 of 2) Never done COVID-19 VACCINE(4 - Fish Nature series) due on 03/07/2021 LDL CHOLESTEROL due on 09/23/2021 ADVANCE DIRECTIVE DISCUSSION due on 02/05/2022 DEPRESSION ASSESSMENT Never done INFLUENZA(1) due on 10/06/2022 EXAM: BP 128/70 Pulse 60 Ht 171.5 cm (5' 7.5) Wt 75.5 kg (166 lb 6.4 oz) SpO2 97% BMI 25.68 kg/m Pleasant adult man in no acute distress. Alert and oriented all spheres. Normal affect and cognition. Speech normal. No deficits to learning or comprehension. Skin warm, dry, pink to lips and nailbeds. Normal turgor. Respirations regular and unlabored. HEENT: NCAT. No scleral icterus or conjunctival injection. TM's clear. Nose and oropharynx free from injection or lesion. Oral membranes moist and pink. No cervical lymph nodes. Thyroid non-tender, no masses, or enlargement. Carotids pulses 2+/4+ without bruits. No JVD with HOB at 30 degrees. Chest is normal shape. Lungs are clear to all dillard with good air exchange through out. HRRR without murmur or gallop. No lifts, heaves, or rubs. Extrem: no clubbing or cyanosis. Edema: none. Extremities are warm and pink with prompt capillary refill. ASSESSMENT/PLAN: 1. S/P coronary artery stent placement - ICD9: V45.82, ICD10: Z95.5 (primary diagnosis) 2. Stented coronary artery - ICD9: V45.82, ICD10: Z95.5 3. History of endarterectomy - ICD9: V15.29, ICD10: Z98.890 4. Essential hypertension, benign - ICD9: 401.1, ICD10: I10 - Controlled - Continue current medications - Recommend home blood pressure monitoring, to bring results to next visit - Encouraged sodium restriction, DASH or Mediterranean diet - Recommend regular aerobic exercise - AMLODIPINE 10 MG TABLET 5. Peripheral arterial disease (HCC) - ICD9: 443.9, ICD10: I73.9 Moderate PVD, discussed surgery not necessary at this time. Reviewed claudication which is more consistent with spinal source. 6. Chronic interstitial lung disease (HCC) - ICD9: 515, ICD10: J84.9 Stable, no inhalers 7. BPH with obstruction/lower urinary tract symptoms - ICD9: 600.01, 599.69, ICD10: N40.1, N13.8 Recommended limiting fluids after 5pm. - TAMSULOSIN 0.4 MG CAPSULE 8. Gastroesophageal reflux disease, unspecified whether esophagitis present - ICD9: 530.81, ICD10: K21.9 - Discussed lifestyle modifications including losing weight, limiting caffeine, no meals three hours before sleep, and head of bed elevation Continue pantoprazole. Chewed me out for not filling his prescription, showed him records. Still bugged, wants to know why he has to come in depsite the fact that rx was filled for 1 year. I explained requirement for prescribing. 9. Chronic anxiety - ICD9: 300.00, ICD10: F41.9 stable - HYDROXYZINE HCL 25 MG TABLET 10. Claudication (HCC) - ICD9: 443.9, ICD10: I73.9 Suspect not r/t to vascular, more consistent with neurogenic. Check LS spine. - XR LUMBAR GENERAL 3V AP/LAT/L5-S1 11. Psoriasis (a type of skin inflammation) - ICD9: 696.1, ICD10: L40.9 Stable off tx. 12. 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 13. Chronic constipation - ICD9: 564.00, ICD10: K59.09 stable 14. Neck pain - ICD9: 723.1, ICD10: M54.2 Demonstrated myofacial release which helped, self techniques reviewed. 15. Hyperlipidemia LDL goal <70 - ICD9: 272.4, ICD10: E78.5 - Controlled - Continue current medications - Counseled on healthy diet and regular exercise - CBC + DIFF - LIPID PANEL BASIC 16. Encounter for immunization - ICD9: V03.89, ICD10: Z23 - INFLUENZA VACCINE, PRSV FREE, AGE 65+ YR, HIGH DOSE, QUADRIVALENT (FLUZONE HIGH-DOSE) Ida Hatfield PA-C documented in this encounterL[facility]23 Miscellaneous Notes* Telephone Encounter - Rachel Cortez RN - 10/03/2022 5:08 PM EDT Patient is calling stating that he is out of medication. Patient is now requesting a phone call when this has been filled. * Telephone Encounter - Marina Mathews - 10/03/2022 10:01 AM EDT Patient calling to check the status of his refill. * Telephone Encounter - Marina Mathews - 10/02/2022 9:07 AM EDT Patient has been identified by name and date of : Yes Requested Prescriptions Pending Prescriptions Disp Refills pantoprazole DR (PROTONIX) 20 mg tablet 90 tablet 3 Sig: TAKE 1 TABLET BY MOUTH 1/2 HOUR BEFORE BREAKFAST ON AN EMPTY STOMACH ONCE DAILY Patient asking for a partial fill because he comes in on the and normally uses mail order to get 90 days. RX INSTRUCTIONS: Patient aware RX will be sent to pharmacy. No need to notify patient. Marina Mathews documented in this encounterL[facility]07-07-2023 Instructions* Patient Instructions* Ida Hatfield PA-C - 08/11/2022 10:33 AM EDT Images from the original note were not included. CONSTIPATION/ TIPS FOR HEALTHY BOWEL HABITS Introduction Patients with colorectal or anorectal problems are generally unaware of how their own bowel habits may vary from normal. Since their problems usually stem from childhood, representing lifelong habits, and since they have no standards for comparison, most patients assume that their function is normal. Most patients who develop colon cancer, diverticulosis, diverticulitis, hemorrhoids, fistula and fissure have had a lifelong history of difficulty with their bowels. In most instances, they suffer from chronic habit constipation. The usual cause of chronic constipation is a lack of adequate dietary fiber. Dietary fiber is generally obtained from plant foods, and consists of that portion of the plant which is not digested by man. While the sugars, starches and vitamins are broken down into nutrients and are absorbed by our intestines, the cell hoover are not digested and go on to form an important component of the stool, the bulk or roughage. An example of dietary fiber is cellulose, and a food which is high in fiber is wheat bran. Correcting the fiber inadequacy in one's diet will help one to achieve normal bowel movements and normal bowel habits. If damage has taken place, as in the development of diverticulitis, the adjustment of one's dietary fiber intake may prevent further deterioration of the damage over time. The decision as to how much fiber to use in the face of pre-existing conditions should be made in consultation with your doctor. For the bowels to work properly, a lifelong daily intake of 25-30 grams, or about one ounce of dietary fiber daily, is required. After the digestion of all proteins, fats and carbohydrates, and the absorption of water and other nutrients in the small intestine, the colon (the last five feet of the i ntestine) receives approximately one pint of liquid stool together with the undigested fiber. Under normal circumstances, the colon gradually removes the remaining water, and forms a shaped stool, which moves toward the rectum as a result of gentle pressure waves. In people who eat too littleof fiber-containing foods, the stool becomes hard, dry and small. Whereas the soft, bulky stool canmove easily along the passage of the colon, the hard, dry stool sticks to the dry wall of the colonand requires that the colon develop high-pressure waves to be moved. Years pass, and the colon is no longer capable of generating such high pressure waves. The colon now requires assistance to push along the hard, dry stool, and the abdominal muscles begin to contribute the necessary force. This wecall straining. The straining produces pressure on all of the abdominal wall, forcing the development of hernias, varicose veins (due to pressure on the long veins of the legs), hiatus hernia (upward pressure forcing the stomach into the chest), diverticulitis and diverticulosis (weakening and infection of the colon wall), hemorrhoids, anal fissures and fistulae. Colorectal cancers may also be m ore common in patients with lifelong habit constipation. This may be due to the concentrated exposure of carcinogens to the colonic surface, as a result of the hard dry stool and its slow movement orevacuation. Normal Bowel Habits It is normal for one to have one or two soft, formed easily passed bowel movements a day, without any effort or straining. The Kosovan term is a bowel action, and literally one should be able to evacuate promptly and easily. This is not the case for most Americans, some of whom have the best bathroom libraries in the world, and some of whom actually reserve this time for reading the daily newspaper-cover to cover. The habit of reading in the bathroom is simply a reflection of inadequate function. It is not normal to miss moving one's bowels on any given day. It is not normal to solve the problem by taking a laxative. If your bowels move daily, but with difficulty or straining, if your stool is dry or hard, or if you don't move your bowels daily, you need to adjust your diet for the right amount of fiber intake. Normal Physiology When there is adequate fiber in the diet, the fiber (viewed as millions of tiny water attracting particles) mixes with the stool. Each particle soaks up available liquid, and enlarges into a minute gel bead. These particles give the stool size shape and moisture, making it easy for the colon to move along easily. To work properly two other circumstances must also be right; adequate water for absorption, and adequate lubrication of the colon lining. We require 8-10 (8 or 10 ounce) large glasses of water daily.Water can be any liquid, whether it is tea, coffee, milk, fruit juices, soft drinks, or other beverages that agree with you. Milk products may be particularly gassy, due to the fermentation of milk sugar, i.e., lactose, in the colon. In order to lubricate the passage, the colon manufactures mucous. If the colon is dry, i.e., one has too little mucous, or drinks too little water, the stool will be hard and dry and will stick to the colon requiring that one strain to eliminate. A Proper Diet A proper diet is conscious of calories, balanced nutrition, vitamins, avoidance of dangerous foods such as saturated fats, and attention to all sources of fiber. A typical diet of meats, dairy products, breads made from enriched or refined flours, and other starches such as potatoes, pasta and rice are all very low in fiber. The typical [place]i diet: Breakfast Cereal ([place] flakes) Coffee Juice Eggs [place] (White) Bagel Meat Lunch [place] (Meat, Chicken, Tuna) White bread Pizza Hamburger [place] fries Dinner Fish or chicken Starch Vegetable ([place]) Virtually all such meals contain a minimum of fiber, leading to a daily total of 5-8 grams. An optimal diet would typically include: Breakfast Bran cereal (All-Bran 13 gm; Fiber One 18 gm) Lunch A large salad (Dinner Plate) Dinner Two one cup servings of vegetables (broccoli, etc) Starch 4-5 oz chicken or fish Salad Learning how to change one's eating habits takes deliberate work over many months. When shopping, one must be familiar with the calorie and fiber content of all foods, and plan and purchase with menus in mind. One must read the content information on the package. This process can take six or more months to master. Supplements and Substitutes While one is learning to eat properly, or if one is too old or too set in their ways to make a major change, one can substitute commercial sources of fiber in one's diet. Psyllium seeds are ground up water absorbing particles which substitute for dietary fiber. Products such as Metamucil, Hydrocil, Konsyl, etc. or other products such as Citrucel (methylcellulose) are perfectly good substitutesources of fiber. One tablespoon a day provides 15 grams of the recommended 25-30 grams daily. Mostpeople take such products at night, generally after completing one's meal. No matter what the labelsays, these products are not laxatives, but fiber substitutes. Taking them daily provides the fiberwhich allows the bowels to function normally. Taking them only when one is constipated means that one doesn't understand their proper role and use. Mineral oil is the best and the most consistent lubricant. Colace, a pill, is easier to take or swallow, however, its result is more erratic. Mineral oil, one tablespoon by mouth daily, from the refrigerator will serve as an excellent lubricant. Lubrication should be considered if one is taking theprescribed amounts of fiber and water, and one is still straining, or the stool remains hard. Some people, when they hear of the importance of fiber in their diet, overdo the fiber intake. Thiscan be harmful too. Fiber, especially in the absence of adequate water intake, can be so binding, as to cause severe constipation. If that happens, enemas and mineral oil may be needed to eliminate the hard, dry impassable stool before resuming a normal schedule. An occasional fiber abuser will have diarrhea. Remember, there is a necessary balance between fiber content of the diet, water intake and lubrication. Give each one some thought before figuring that reasonable bowel function is a hopeless pursuit. Do not expect immediate or day-by-day results. If you have had sluggish bowels and constipation all of your life, expect to see the effects of your new fiber intake over the weeks that follow. All changes will be gradual, and any adjustments that you make will require days to weeks before the results may be noticeable. Laxative Abuse Some people have had chronic habit constipation for as long as they can remember. It is possible that they were born with a sluggish bowel that does not function easily. Furthermore, if they were nottaught to eat properly at a young age, their underlying problem may be aggravated by a diet that lacks the correct amount of fiber. To people who are not aware of fiber's importance, years may have been spent experimenting with laxatives or natural substances that act as laxatives obtained through health food stores, such as powders, teas and other supplements. Taking laxatives (or other unknown remedies) as a lifelong solution to constipation is extremely dangerous. The fatigued colon becomes so reliant on the laxatives for emptying, that after decades of bowel abuse older people become completely dependent upon these products. It is as much an addiction as are other types of dependencies, and people become afraid to try the proper solution. Do not get hooked on products containing senna leaves, or other natural laxatives. Most laxatives come from natural sources, and all can be dangerous except when prescribed for specific uses. Sources of Fiber in One's Diet Without guidance, most people don't know where to find fiber in their diet. Reading materials are available on the diet and nutrition shelves of your local libraries. Any such book can be a good guide to getting started. On the attached pages, you will find two lists with fiber content information.Both are taken from a book called the F Plan Diet by Latosha Gongora. It was first published in the early 1980s, and is now out of print. The first table can serve as a general guide. It lists the foods that are the richest sources of dietary fiber. The second table provides more specific calorie and fiber content information for a large variety of foods. This table can help you estimate your daily and weekly fiber intake. General Guidelines For people who have developed hemorrhoids, fissures, or fistulae, benign anal conditions associatedwith straining, hard stool and chronic constipation, the above information is intended to help you get the dietary requirements that you will need for your lifetime. Fiber is not a temporary remedy, to be stopped whenever you've temporarily overcome the problem. For patients who have experienced complications of chronic fiber shortage, such as diverticulitis, getting started with a normal fiber intake can be more difficult, and may have to be very gradual. The same may be true for patients who have undergone colorectal surgery. Nevertheless, the goal remains the same. Only the steps to achieve it, or the final amounts of fiber for each person, may differ. Good luck with your lifelong adventure to normal bowel function. If after reading this information and working on your own you still have questions, please bring your concerns to the attention of your clinician. Understanding Your Own Fiber Intake As an exercise, we recommend that you list each item that you eat for breakfast, lunch, dinner and snacks. Include all phlebotomy services representative foods. Look up the calories and fiber content in the tables and see how close your daily diet comes to providing you with the daily requirement of 25-30 grams of fiber. Always ask yourself, out of a seven-day week, how many days do I really eat each item. The Top Twenty Fiber Foods This list can serve as a general guide. For specifics and measurements see: http://www.weheal[place].org/healthinfo/dietaryfiber/fibercontentchart.html 1. Dried beans, peas, and other legumes: This includes baked beans, kidney beans, split peas, driedlimas, garbanzos, hawkins beans and black beans. 2. Bran cereals: Topping this list are Bran Buds and All-Bran, but 100% Bran, Raisin Bran, Most andCracklin' Bran are also excellent sources. 3. Fresh or frozen [place] beans, both [place] and baby guera 4. Fresh or frozen green peas 5. Dried fruit, topped by figs, apricots and dates 6. Raspberries, blackberries and strawberries 7. Sweet corn, whether on the cob or cut off in kernels 8. Whole-wheat and other whole-grain cereal products.[place], oats, buckwheat and stone-ground cornmealare all high in fiber. Bread, pastas, pizzas, pancakes and muffins made with whole-grain flours. 9. Broccoli-very high in fiber! 10. Baked potato with the skin:(The skin when crisp is the best part for fiber.) Mashed and boiled potatoes are good, too-but not russian fries, which contain a high percentage of fat. 11. Green snap beans, pole beans, and broad beans:(These are packaged frozen as [place] beans, in [place] they are known as haricot or russian beans.) 12. Plums, pears, and apples:The skin is edible, and are all high in pectin. 13. Raisins and prunes:Not as high on the list as other dried fruits (see #5) but very valuable. 14. Greens:Including spinach, beet greens, kale, collards, norwegian chard and turnip greens. 15. Nuts:Especially almonds, [place] nuts, peanuts, and walnuts (Consume these sparingly, because oftheir high fat content.). 16. Cherries 17. Bananas 18. Carrots 19. Coconut: (dried or fresh-but both are high in fat content). 20. [place] sprouts OTC supplement Metamucil, Citrucil, gummies, fiber bars, All Bran cereal documented in this [facility]07-07-[facility]23 History of Present illness Narrative* Ida Hatfield PA-C - 08/11/2022 9:40 AM EDT 82 year old male with diverticulosis c/o still constipated from 07/04/2022 visit Noris Perez. This morning went pretty good. Feels like like incomplete stool, sometimes has to go again right away. Had a lot of gas pain which is why he made appointment. Went several times this morning. No rectal pain or bleeding. No black or tarry stools. No trouble urinating. If empties bladder, seems to help stools. No weight loss, normal appetite. Denies change in appetite, nausea, vomiting, rectal bleeding, hemorrhoids, urinary difficulty, painor burning, black or tarry stools. From notes 07/04/2022: Reports stopped smoking and drinking alcohol two months ago. Noticed a big improvement in his breathing. Reports has had constipation since stopped. A couple weeks ago had to take a laxative. Last BMthis past weekend. Denies abdominal pain, nausea, vomiting, diarrhea, melana or hematochezia - recommend OTC miralax, stool softener and fiber supplement - stay well hydrate with water - follow-up if symptoms fail to improve to ER with red flag symptoms HISTORIES FAMILY HISTORY Problem Relation Age of Onset Cancer Mother age 42 leukemia None Father father ubknown to pt. 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 cruciate tear, poss. 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 [facility] - PAST MEDICAL HISTORY OF 1982 laceration wrist, suicidal gesture Radius fracture 06/21/2013 See scanned documents [facility] Tobacco abuse 05/22/2013 Urinary calculus, unspecified 01/05 Renal stone right side; 3 episodes with stones altogether with extraction in 196 PAST SURGICAL HISTORY Procedure Laterality Date ATHERECTOMY, FEMORAL-POPLITEAL 09/28/2009 right COLONOSCOPY FLX DX W/COLLJ SPEC WHEN PFRMD 06/21/2015 Colonoscopy CORONARY ENDARTERCOMY OPEN ANY METHOD 08/10/2006 Angioplasty with stent ECHOCARDIOGRAM 11/24/2020 11/25/[address] Puentes: LV size and LVSF WNL, EF 55%, structurally normal valves ESOPHAGOGASTRODUODENOSCOPY TRANSORAL DIAGNOSTIC 06/21/2015 EGD PAST SURGICAL HISTORY OF 04/05/1999 Cautery and outfracture of inferior turbinates. Removal fx fragment PAST SURGICAL HISTORY OF 1960 renal stone extraction: PAST SURGICAL HISTORY OF dental extraction PICC LINE INSERT/CONSULT 04/11/2016 SLCTV CATHJ 3RD+ ORD SLCTV ABDL PEL/LXTR BRNCH 09/28/2009 VASECTOMY UNI/BI SPX W/POSTOP SEMEN EXAMS 10/1984 Social History Tobacco Use Smoking status: Former Packs/day: 1.00 Years: 56.00 Pack years: 56.00 Types: Cigarettes Start date: 02/05/1959 Quit date: 04/19/2022 Years since quittin.3 Smokeless tobacco: Never Vaping Use Vaping Use: Never used Substance Use Topics Alcohol use: Yes Comment: Socially Drug use: No ACTIVE PROBLEM LIST Essential Hypertension, Benign Coronary atherosclerosis Bph With Obstruction/Lower Urinary Tract Symptoms Allergic Rhinitis S/P Coronary Artery Stent Placement Hyperlipidemia Ldl Goal <70 Tobacco Abuse Alcohol Abuse Gastroesophageal Reflux Disease Poor Sleep Peripheral Arterial Disease (Hcc) Disorder of Lymphatic Vessel Hypertension Nicotine Dependence Stented Coronary Artery Chronic Anxiety Psoriasis (A Type of Skin Inflammation) Calcium Oxalate Stones Proteinuria Microscopic Hematuria Elevated Psa History of Endarterectomy Chronic Interstitial Lung Disease (Hcc) Pancreatic Calcification Diverticulosis of Colon Adrenal Adenoma, Left Bladder Stone Renal Calculi Encounter for Support and Coordination of Transition of Care Current Outpatient Medications Medication Sig Dispense Refill polyethylene glycol 3350 (MIRALAX) 17 gram/dose powder Take 17 g by mouth once daily. Dissolve dosein 4 - 8 ounces of liquid and take as directed. 238 g 5 metoprolol tartrate, short acting, (LOPRESSOR) 100 mg tablet Take 1 tablet by mouth twice daily. 180 tablet 3 Promethazine-DM (PHENERGAN-DM) 6.25-15 mg/5 mL syrup Take 5 mL by mouth four times daily as needed.120 mL 0 melatonin 1 mg tablet Take 1 tablet by mouth daily at bedtime. 90 tablet 3 tamsulosin (FLOMAX) 0.4 mg Take 2 capsules by mouth daily at bedtime. 180 capsule 3 benzonatate (TESSALON PERLE) 100 mg capsule Take 2 capsules by mouth three times daily as needed. 30 capsule 0 amLODIPine (NORVASC) 10 mg tablet Take 1 tablet by mouth once daily. [address] (PROTONIX) 20 mg tablet TAKE 1 TABLET BY MOUTH 1/2 HOUR BEFORE BREAKFAST ON AN EMPTY STOMACH ONCE DAILY 90 tablet 3 clopidogrel (PLAVIX) 75 mg tablet Take 1 tablet by mouth once daily. 90 tablet 3 hydrOXYzine HCl (ATARAX) 25 mg tablet Take 1 tablet by mouth every 8 hours as needed for anxiety. 90 tablet 3 No current facility-administered medications for this visit. SHINGRIX VACCINE(1 of 2) Never done COVID-19 VACCINE(4 - Booster for Pfizer series) due on 03/07/2021 LDL CHOLESTEROL due on 09/23/2021 ADVANCE DIRECTIVE DISCUSSION due on 02/05/2022 DEPRESSION ASSESSMENT Never done EXAM: BP 138/80 Pulse (!) 58 Resp 18 Wt 74.3 kg (163 lb 12.8 oz) SpO2 97% BMI 25.28 kg/m Pleasant older man in no acute distress. Alert and oriented all spheres. Normal affect and cognition. Speech normal. No deficits to learning or comprehension. Skin warm, dry, pink to lips and nailbeds. Normal turgor. Respirations regular and unlabored. HEENT: NCAT. No scleral icterus or conjunctival injection. TM's clear. Nose and oropharynx free from injection or lesion. Edentulous. Oral membranes moist and pink. No cervical lymph nodes. Thyroid non-tender, no masses, or enlargement. Carotids pulses 2+/4+ without bruits. No JVD with HOB at 30 degrees. Chest is normal shape. Lungs are clear to all dillard with good air exchange through out. HRRR without murmur or gallop. No lifts, heaves, or rubs. Abdomen: active bowel sounds throughout, soft, nontender, no masses or organomegaly. No CVAT. Extrem: no clubbing or cyanosis. Edema: none. Extremities are warm and pink with prompt capillary refill. ASSESSMENT/PLAN: 1. Acute constipation - ICD9: 564.00, ICD10: K59.00 No worrisome signs. Improved with Miralax. Discussed need for water, fiber, exercise, Reviewed options for fiber sources through food and supplements. See d/c instructions. Ida Hatfield PA-C documented in this encounterL[facility]06-22-2023 Miscellaneous Notes* Telephone Encounter - Pallavi Augustine Ma - 07/27/2022 4:11 PM EDT Call to pt and notified him that referral paperwork has been faxed to Vascular as requested. Pt notified to call to schedule appt. Most recent OV from PCP faxed. Also faxed previous vascular OV notesfrom Dr. Kenny and another Vascular Provider in previous years. Sent multiple imaging reports over the past several years in additional to facesheet and demographics. Faxed to [phone]. Pallavi Augustine Ma * Telephone Encounter - Ida Hatfield PA-C - 07/27/2022 3:41 PM EDT Telephone on 07/27/22 CONSULT TO VASCULAR SURGERY ThanksDayne PA-C * Telephone Encounter - Betty Flores LPN - 07/27/2022 1:36 PM EDT Pt [facility] referral to [facility] in [place]. Problem with veins in legs with very little blood flow. Also requesting any testing and office notes relatedto this sent to them. Pt has only has a phone number of [phone]. Pt states he saw Dr. Kenny last here in [place] but she said per pt there was nothing she could do. Asking to let him know when this is placed so he can call for appt. documented in this encounterL[facility] Instructions* Patient Instructions* Noris Perez APRN.FRETTED INSTRUMENT REPAIRER - 07/04/2022 1:25 PM EDT Start miralax once a day. May also use colace as directed on packaging. Increase fiber in diet- mayuse a supplement documented in this encounterL[facility]05-30-[facility] History of Present illness Narrative* Noris Perez APRN.CNP - 07/04/2022 1:12 PM EDT 07/04/2022 Patient presents with: Constipation: Has stopped smoking 2 months ago and since has had an increase in constipation SUBJECTIVE: This is a 82 year old that is here today for Above Complaints.. Reports stopped smoking and drinking alcohol two months ago. Noticed a big improvement in his breathing. Reports has had constipation since stopped. A couple weeks ago had to take a laxative. Last BMthis past weekend. 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 cruciate tear, poss. 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 PMH - PAST MEDICAL HISTORY OF 1982 laceration wrist, suicidal gesture Radius fracture 06/21/2013 See scanned documents [facility] Tobacco abuse 05/22/2013 Urinary calculus, unspecified 01/05 Renal stone right side; 3 episodes with stones altogether with extraction in 196 ALLERGIES Dust Mites, Lipitor [Atorvastatin], Lisinopril, Penicillins, Pletal [Cilostazol], and Pravastatin MEDICATIONS Current Outpatient Medications Medication Sig metoprolol tartrate, short acting, (LOPRESSOR) 100 mg tablet Take 1 tablet by mouth twice daily. Promethazine-DM (PHENERGAN-DM) 6.25-15 mg/5 mL syrup Take 5 mL by mouth four times daily as needed. melatonin 1 mg tablet Take 1 tablet by mouth daily at bedtime. tamsulosin (FLOMAX) 0.4 mg Take 2 capsules by mouth daily at bedtime. benzonatate (TESSALON PERLE) 100 mg capsule Take 2 capsules by mouth three times daily as needed. amLODIPine (NORVASC) 10 mg tablet Take 1 tablet by mouth once daily. pantoprazole DR (PROTONIX) 20 mg tablet TAKE 1 TABLET BY MOUTH 1/2 HOUR BEFORE BREAKFAST ON AN EMPTY STOMACH ONCE DAILY clopidogrel (PLAVIX) 75 mg tablet Take 1 tablet by mouth once daily. hydrOXYzine HCl (ATARAX) 25 mg tablet Take 1 tablet by mouth every 8 hours as needed for anxiety. No current facility-administered medications for this visit. Medications and allergies reviewed by this provider. SOCIAL HISTORY Social History Tobacco Use Smoking status: Former Packs/day: 1.00 Years: 56.00 Pack years: 56.00 Types: Cigarettes Start date: 02/05/1958 Quit date: 04/19/2022 Years since quittin.2 Smokeless tobacco: Never Vaping Use Vaping Use: Never used Substance Use Topics Alcohol use: Yes Comment: Socially Drug use: No REVIEW OF SYSTEMS All other reviewed and negative other than HPI. OBJECTIVE: BP 124/62 Pulse 77 Resp 16 Wt 73.8 kg (162 lb 12.8 oz) SpO2 97% BMI 25.12 kg/m . Vital signs reviewed by this provider. APPEARANCE Well appearing, alert, in no acute distress, well-hydrated, well nourished. HEART RRR with normal S1 and S2, no murmurs, no gallops, no JVD appreciated LUNG clear to auscultation. No wheezes, rhonchi or rales ABDOMEN bowel sounds normoactive, no bruits, soft, non-tender, non-distended. No rebound tendernessor guarding SKIN Skin color, texture, turgor normal, no suspicious rashes or lesions to exposed skin SHINGRIX VACCINE(1 of 2) Never done COVID-19 VACCINE(4 - Booster for Pfizer series) due on 03/07/2021 LDL CHOLESTEROL due on 09/23/2021 ADVANCE DIRECTIVE DISCUSSION due on 02/05/2022 DEPRESSION ASSESSMENT Never done DIABETES SCREEN due on 04/07/2025 DTAP,TDAP,TD(5 - Td or Tdap) due on 05/21/2031 INFLUENZA Completed PNEUMOCOCCAL: 65+ Completed ASSESSMENT/PLAN: 1. Acute constipation - ICD9: 564.00, ICD10: K59.00 - congratulated on alcohol and smoking cessation - no red flag symptoms or exam findings - red flag symptoms discussed, verbalizes understanding - recommend OTC miralax, stool softener and fiber supplement - stay well hydrate with water - follow-up if symptoms fail to improve to ER with red flag symptoms Noris Perez APRN.MARK Prescription instructions reviewed with patient as applicable. Patient advised if symptoms do not improve or if symptoms worsen sooner, to contact their primary care physician. Potential red flag symptoms discussed with the patient. Reviewed appropriate action plan to take if red flag symptoms occur. Patient agreeable to treatment plan. I spent a total of 25 minutes on the date of the service which included preparing to see the patient, xhth-ag-utpa patient care, completing clinical documentation, obtaining and/or reviewing separately obtained history, performing a medically appropriate examination, counseling and educating the pat ient/family/caregiver, and ordering medications, tests, or procedures. documented in this encounterL[facility]04-19-2023 Miscellaneous Notes* Telephone Encounter - Vandana Rincon - 05/24/2022 4:55 PM EDT Patient has been identified by name and date of : Yes Requested Prescriptions Pending Prescriptions Disp Refills metoprolol tartrate, short acting, (LOPRESSOR) 100 mg tablet 180 tablet 3 Sig: Take 1 tablet by mouth twice daily. RX INSTRUCTIONS: Patient aware RX will be sent to pharmacy. No need to notify patient. Vandana Rincon documented in this encounterL[facility]03-17-2023 Miscellaneous Notes* Telephone Encounter - Sarah Ernandez RN - 04/21/2022 9:21 AM EDT Patient calls and states that completely gone yet. Patient asking if provider can send in a refill prescription for cough syrup? Please review and advise, Sarah Ernandez RN documented in this encounterL[facility]03-07-2023 Miscellaneous Notes* Telephone Encounter - Ca Rincon - 04/11/2022 2:11 PM EST Patient needs these scripts sent to [facility]. Said he was seen on Sunday and they were sent to mail order. Mail order told him they won't arrive for at least another week. He would like to be call at [phone] when sent. * Telephone Encounter - Ca Rincon - 04/11/2022 2:10 PM EST Patient has been identified by name and date of : Yes Requested Prescriptions Pending Prescriptions Disp Refills Promethazine-DM (PHENERGAN-DM) 6.25-15 mg/5 mL syrup 120 mL 0 Sig: Take 5 mL by mouth four times daily as needed. melatonin 1 mg tablet 90 tablet 3 Sig: Take 1 tablet by mouth daily at bedtime. tamsulosin (FLOMAX) 0.4 mg 180 capsule 3 Sig: Take 2 capsules by mouth daily at bedtime. RX INSTRUCTIONS: Patient requesting a call when RX is approved and sent to the pharmacy. Please call patient at: [phone] Ca Rincon documented in this encounterL[facility]03-06-2023 Miscellaneous Notes* Telephone Encounter - Amarilys Angel Ma - 04/10/2022 11:47 AM EST Patient was made aware of the results. Patient verbalizes understanding. Amarilys Angel Ma * Telephone Encounter - Amarilys Angel Ma - 04/10/2022 11:45 AM EST ----- Message from Ida Hatfield PA-C sent at 04/08/2022 6:19 AM EST ----- Please let him know labs look good/ stable for non-fasting. PSA has dropped to 2.79 with pattern of BPH Dayne Childress PA-C documented in this encounterL[facility]03-04-2023 Miscellaneous Notes* Telephone Encounter - Danay Bennett LPN - 04/08/2022 9:34 AM EST Patient notified.Danay Bennett LPN * Telephone Encounter - Toyin Kurtz MA - 04/07/2022 8:38 AM EST VM left instructing patient to return call for results. Toyin Kurtz MA * Telephone Encounter - KRISTI Sommers - 04/07/2022 7:06 AM EST Please call patient and let him know negative for COVID and flu. documented in this encounterLake[facility]03-02-2023 Instructions* Patient Instructions* Thien Stanton APRN.MARK - 04/06/2022 1:07 PM EST Fact Sheet for Patients And Caregivers Emergency Use Authorization (EUA) Of Molnupiravir For Coronavirus Disease 2019 (COVID-19) What is the most important information I should know about molnupiravir? Molnupiravir may cause serious side effects, including: Molnupiravir may cause harm to your unborn baby. It is not known if molnupiravir will harm your baby if you take molnupiravir during . Molnupiravir is not recommended for use in . Molnupiravir has not been studied in . Molnupiravir was studied in animals only. When molnupiravir was given to animals, molnupiravir caused harm to their unborn babies. You and your healthcare provider may decide that you should take molnupiravir during if there are no other COVID-19 treatment options authorized by the FDA that are accessible or clinicallyappropriate for you. If you and your healthcare provider decide that you should take molnupiravir during , you and your healthcare provider should discuss the known and potential benefits and the potential risksof taking molnupiravir during . For individuals who are able to become : You should use a reliable method of control (contraception) consistently and correctly duringtreatment with molnupiravir and for 4 days after the last dose of molnupiravir. Talk to your healthcare provider about reliable control methods. Before starting treatment with molnupiravir your healthcare provider may do a test to seeif you are before starting treatment with molnupiravir. Tell your healthcare provider right away if you become or think you may be duringtreatment with molnupiravir. Surveillance Program: There is a surveillance program for individuals who take molnupiravir during . The purpose of this program is to collect information about the health of you and your baby. Talk to your healthcare provider about how to take part in this program. If you take molnupiravir during and you agree to participate in the surveillance program and allow your healthcare provider to share your information with [employer]then your healthcare provider will report your use of molnupiravir during to [employer]. by calling or Pregnancyreporting.[employer]. For individuals who are sexually active with partners who are able to become : It is not known if molnupiravir can affect sperm. While the risk is regarded as low, animal studies to fully assess the potential for molnupiravir to affect the babies of males treated with molnupiravir have not been completed. A reliable method of control (contraception) should be used consistently and correctly during treatment with molnupiravir and for at least 3 months after thelast dose. The risk to sperm beyond 3 months is not known. Studies to understand the risk to sperm beyond 3 months are ongoing. Talk to your healthcare provider about reliable control methods. Talk to your healthcare provider if you have questions or concerns about how molnupiravir may affectsperm. You are being given this fact sheet because your healthcare provider believes it is necessary to provide you with molnupiravir for the treatment of adults with orqb-hm-tjhzgjmf coronavirus disease 2019 (COVID-19) with positive results of direct SARS-CoV-2 viral testing, and who are at high risk forprogressing to severe COVID-19 including hospitalization or , and for whom other COVID-19 treatment options authorized by the FDA are not accessible or clinically appropriate. The [place]. Food and Drug Administration (FDA) has issued an Emergency Use Authorization (EUA) to makemolnupiravir available during the COVID-19 pandemic (for more details about an EUA please see What is an Emergency Use Authorization? at the end of this document). Molnupiravir is not an FDA-approved medicine in the [place]. Read this Fact Sheet for information about molnupiravir. Talk to your healthcare provider about your options if you have any questions. It is your choice to take molnupiravir. What is COVID-19? COVID-19 is caused by a virus called a coronavirus. You can get COVID-19 through close contact withanother person who has the virus. COVID-19 illnesses have ranged from very fokz-qz-iftvcm, including illness resulting in . While information so far suggests that most COVID-19 illness is mild, serious illness can happen and maycause some of your other medical conditions to become worse. Older people and people of all ages with severe, long lasting (chronic) medical conditions like heart disease, lung disease and diabetes, for example seem to be at higher risk of being hospitalized for COVID-19. What is molnupiravir? Molnupiravir is an investigational medicine used to treat yjef-re-tpgzwyui COVID-19 in adults: with positive results of direct SARS-CoV-2 viral testing, and who are at high risk for progressing to severe COVID-19 including hospitalization or , and for whom other COVID-19 treatment optionsauthorized by the FDA are not accessible or clinically appropriate. The FDA has authorized the emergency use of molnupiravir for the treatment of mild-tomoderate COVID-19 in adults under an EUA. For more information on EUA, see the What is an Emergency Use Authorization (EUA)? section at the end of this Fact Sheet. Molnupiravir is not authorized: for use in people less than 18 years of age. for prevention of COVID-19. for people needing hospitalization for COVID-19. for use for longer than 5 consecutive days. What should I tell my healthcare provider before I take molnupiravir? Tell your healthcare provider if you: Have any allergies Are or plan to breastfeed Have any serious illnesses Are taking any medicines (prescription, ttcj-isk-kagujok, vitamins, or herbal products). How do I take molnupiravir? Take molnupiravir exactly as your healthcare provider tells you to take it. Take 4 capsules of molnupiravir every 12 hours (for example, at 8 am and at 8 pm) Take molnupiravir for 5 days. It is important that you complete the full 5 days of treatment with molnupiravir. Do not stop taking molnupiravir before you complete the full 5 days of treatment, even if you feel better. Take molnupiravir with or without food. You should stay in isolation for as long as your healthcare provider tells you to. Talk to your healthcare provider if you are not sure about how to properly isolate while you have COVID-19. Swallow molnupiravir capsules whole. Do not open, break, or crush the capsules. If you cannot swallow capsules whole, tell your healthcare provider. What to do if you miss a dose: If it has been less than 10 hours since the missed dose, take it as soon as you remember If it has been more than 10 hours since the missed dose, skip the missed dose and take your dose atthe next scheduled time. Do not double the dose of molnupiravir to make up for a missed dose. What are the important possible side effects of molnupiravir? Possible side effects of molnupiravir are: See, What is the most important information I should know about molnupiravir? diarrhea nausea dizziness These are not all the possible side effects of molnupiravir. Not many people have taken molnupiravir. Serious and unexpected side effects may happen. This medicine is still being studied,so it is possible that all of the risks are not known at this time. What other treatment choices are there? Like molnupiravir, FDA may allow for the emergency use of other medicines to treat people with COVID-19. Go to https://www.fda.gov/flykwtxcb-cjktacagumgw-rpx-response/crj-irkdcflsixorjki-rvh- policy-framework/mvbwnyapb-cfj-qvplakjipvbgd for more information. It is your choice to be treated or not to be treated with molnupiravir. Should you decide not to take it, it will not change your standard medical care. What if I am ? is not recommended during treatment with molnupiravir and for 4 days after the last dose of molnupiravir. If you are or plan to breastfeed, talk to your healthcare provider about your options and specific situation before taking molnupiravir. How do I report side effects with molnupiravir? Contact your healthcare provider if you have any side effects that bother you or do not go away. Report side effects to FDA MedWatch at www.fda.gov/medwatch or call 2-463-IWG-0053 ( ). How should I store molnupiravir? Store molnupiravir capsules at room temperature between 68 F to 77 F (20 C to 25 C). Keep molnupiravir and all medicines out of the reach of children and pets. How can I learn more about COVID-19? Ask your healthcare provider. Visit www.cdc.gov/COVID19 Contact your local or state public health department. Call [employer] at (toll free in the [place] Visit www.[employer] What Is an Emergency Use Authorization (EUA)? The [place] FDA has made molnupiravir available under an emergency access mechanism called an Emergency Use Authorization (EUA) The EUA is supported by a [place] of Health and Human Service (HHS) declaration that circumstances exist to justify emergency use of drugs and biological products during the COVID-19 pandemic. Molnupiravir for the treatment of ppdm-ei-nqskcntc COVID-19 in adults with positive results of direct SARS-CoV-2 viral testing, who are at high risk for progression to severe COVID-19, including hospitalization or , and for whom alternative COVID-19 treatment options authorized by FDA are not accessible or clinically appropriate, has not undergone the same type of review as an FDA- approved product. In issuing an EUA under the COVID-19 public health emergency, the FDA has determined, among other things, that based on the total amount of scientific evidence available including data from adequate and well-controlled clinical trials, if available, it is reasonable to believe that the product may be effective for diagnosing, treating, or preventing COVID-19, or a serious or life-threatening disease or condition caused by COVID19; that the known and potential benefits of the product, when used to diagnose, treat, or prevent such disease or condition, outweigh the known and potential risks of such product; and that there are no adequate, approved, and available alternatives. All of these criteria must be met to allow for the product to be used in the treatment of patients during the COVID-19 pandemic. The EUA for molnupiravir is in effect for the duration of the COVID-19declaration justifying emergency use of molnupiravir, unless terminated or revoked (after which molnupiravir may no longer be used under the EUA). For patent information: www.[employer]/research/patent Copyright 2020 [employer] [place], [facility] and its affiliates. All rights reserved. [id number] Issued: 01/27/2021 Revised: 22 April 2021 RESPIRATORY INFECTION GENERAL INFORMATION: An upper respiratory tract infection, or cold, is a viral infection of the airway passages. It can be caused by any one of almost 200 different viruses. Common symptoms include a runny or stuffy nose, sneezing, watery eyes, sore throat, cough, and slight fever. Colds are contagious, especially during the first 3 or 4 days and cannot be cured by antibiotics. They are spread by coughs, sneezes, anddirect contact, especially hzxj-ez-ygeq. A respiratory tract infection usually clears up in a few days, but some people may be sick for a week or two. INSTRUCTIONS: 1. Be careful not to blow your nose too hard because this may cause a nosebleed. 2. Use a cool-mist humidifier (vaporizer) to increase air moisture. This will make it easier for you to breathe. Do not use hot steam. 3. Rest as much as possible and get plenty of sleep. 4. Wash your hands often, especially after you blow your nose. Cover your mouth and nose with a tissue when you sneeze or cough. 5. Drink plenty of clear fluids (8 glasses a day) such as water, fruit juice, tea, clear soups, andcarbonated beverages. CONTACT YOUR DOCTOR IF : 1. Your fever lasts more than 3 days. 2. You have a sore throat that gets worse or you see white or yellow spots in your throat. 3. Your cough gets worse or lasts more than 10 days. 4. You develop a rash anywhere on your skin. 5. You have an earache or a headache. 6. You have thick greenish or yellowish discharge from your nose. RETURN IMMEDIATELY IF: 1. You cough up thick yellow, green, [place], or bloody sputum. 2. You have difficulty breathing, pain in your chest, or your skin or nails look beckford or blue. 3. You have shaking chills or a temperature over 102 F (39 C). Fact Sheet for Patients And Caregivers Emergency Use Authorization (EUA) Of Molnupiravir For Coronavirus Disease 2019 (COVID-19) What is the most important information I should know about molnupiravir? Molnupiravir may cause serious side effects, including: Molnupiravir may cause harm to your unborn baby. It is not known if molnupiravir will harm your baby if you take molnupiravir during . Molnupiravir is not recommended for use in . Molnupiravir has not been studied in . Molnupiravir was studied in animals only. When molnupiravir was given to animals, molnupiravir caused harm to their unborn babies. You and your healthcare provider may decide that you should take molnupiravir during if there are no other COVID-19 treatment options authorized by the FDA that are accessible or clinicallyappropriate for you. If you and your healthcare provider decide that you should take molnupiravir during , you and your healthcare provider should discuss the known and potential benefits and the potential risksof taking molnupiravir during . For individuals who are able to become : You should use a reliable method of control (contraception) consistently and correctly duringtreatment with molnupiravir and for 4 days after the last dose of molnupiravir. Talk to your healthcare provider about reliable control methods. Before starting treatment with molnupiravir your healthcare provider may do a test to seeif you are before starting treatment with molnupiravir. Tell your healthcare provider right away if you become or think you may be duringtreatment with molnupiravir. Surveillance Program: There is a surveillance program for individuals who take molnupiravir during . The purpose of this program is to collect information about the health of you and your baby. Talk to your healthcare provider about how to take part in this program. If you take molnupiravir during and you agree to participate in the surveillance program and allow your healthcare provider to share your information with [employer]then your healthcare provider will report your use of molnupiravir during to [employer]. by calling or Pregnancyreporting.[employer]. For individuals who are sexually active with partners who are able to become : It is not known if molnupiravir can affect sperm. While the risk is regarded as low, animal studies to fully assess the potential for molnupiravir to affect the babies of males treated with molnupiravir have not been completed. A reliable method of control (contraception) should be used consistently and correctly during treatment with molnupiravir and for at least 3 months after thelast dose. The risk to sperm beyond 3 months is not known. Studies to understand the risk to sperm beyond 3 months are ongoing. Talk to your healthcare provider about reliable control methods. Talk to your healthcare provider if you have questions or concerns about how molnupiravir may affectsperm. You are being given this fact sheet because your healthcare provider believes it is necessary to provide you with molnupiravir for the treatment of adults with dlhy-gk-bykkphqa coronavirus disease 2019 (COVID-19) with positive results of direct SARS-CoV-2 viral testing, and who are at high risk forprogressing to severe COVID-19 including hospitalization or , and for whom other COVID-19 treatment options authorized by the FDA are not accessible or clinically appropriate. The [place] Food and Drug Administration (FDA) has issued an Emergency Use Authorization (EUA) to makemolnupiravir available during the COVID-19 pandemic (for more details about an EUA please see What is an Emergency Use Authorization? at the end of this document). Molnupiravir is not an FDA-approved medicine in the [place]. Read this Fact Sheet for information about molnupiravir. Talk to your healthcare provider about your options if you have any questions. It is your choice to take molnupiravir. What is COVID-19? COVID-19 is caused by a virus called a coronavirus. You can get COVID-19 through close contact withanother person who has the virus. COVID-19 illnesses have ranged from very rvvo-ff-xriujb, including illness resulting in . While information so far suggests that most COVID-19 illness is mild, serious illness can happen and maycause some of your other medical conditions to become worse. Older people and people of all ages with severe, long lasting (chronic) medical conditions like heart disease, lung disease and diabetes, for example seem to be at higher risk of being hospitalized for COVID-19. What is molnupiravir? Molnupiravir is an investigational medicine used to treat lmqd-br-rqrogzwz COVID-19 in adults: with positive results of direct SARS-CoV-2 viral testing, and who are at high risk for progressing to severe COVID-19 including hospitalization or , and for whom other COVID-19 treatment optionsauthorized by the FDA are not accessible or clinically appropriate. The FDA has authorized the emergency use of molnupiravir for the treatment of mild-tomoderate COVID-19 in adults under an EUA. For more information on EUA, see the What is an Emergency Use Authorization (EUA)? section at the end of this Fact Sheet. Molnupiravir is not authorized: for use in people less than 18 years of age. for prevention of COVID-19. for people needing hospitalization for COVID-19. for use for longer than 5 consecutive days. What should I tell my healthcare provider before I take molnupiravir? Tell your healthcare provider if you: Have any allergies Are or plan to breastfeed Have any serious illnesses Are taking any medicines (prescription, ygsr-bzr-haafbkv, vitamins, or herbal products). How do I take molnupiravir? Take molnupiravir exactly as your healthcare provider tells you to take it. Take 4 capsules of molnupiravir every 12 hours (for example, at 8 am and at 8 pm) Take molnupiravir for 5 days. It is important that you complete the full 5 days of treatment with molnupiravir. Do not stop taking molnupiravir before you complete the full 5 days of treatment, even if you feel better. Take molnupiravir with or without food. You should stay in isolation for as long as your healthcare provider tells you to. Talk to your healthcare provider if you are not sure about how to properly isolate while you have COVID-19. Swallow molnupiravir capsules whole. Do not open, break, or crush the capsules. If you cannot swallow capsules whole, tell your healthcare provider. What to do if you miss a dose: If it has been less than 10 hours since the missed dose, take it as soon as you remember If it has been more than 10 hours since the missed dose, skip the missed dose and take your dose atthe next scheduled time. Do not double the dose of molnupiravir to make up for a missed dose. What are the important possible side effects of molnupiravir? Possible side effects of molnupiravir are: See, What is the most important information I should know about molnupiravir? diarrhea nausea dizziness These are not all the possible side effects of molnupiravir. Not many people have taken molnupiravir. Serious and unexpected side effects may happen. This medicine is still being studied,so it is possible that all of the risks are not known at this time. What other treatment choices are there? Like molnupiravir, FDA may allow for the emergency use of other medicines to treat people with COVID-19. Go to https://www.fda.gov/ijuamxiwq-epnmsubajbpv-akt-response/uwg-aoysshovzulplxi-fzi- policy-framework/zxbnawhkb-djf-mxxnwrzxhmbhq for more information. It is your choice to be treated or not to be treated with molnupiravir. Should you decide not to take it, it will not change your standard medical care. What if I am ? is not recommended during treatment with molnupiravir and for 4 days after the last dose of molnupiravir. If you are or plan to breastfeed, talk to your healthcare provider about your options and specific situation before taking molnupiravir. How do I report side effects with molnupiravir? Contact your healthcare provider if you have any side effects that bother you or do not go away. Report side effects to FDA MedWatch at www.fda.gov/medwatch or call 9-161-CTT-6330 ( ). How should I store molnupiravir? Store molnupiravir capsules at room temperature between 68 F to 77 F (20 C to 25 C). Keep molnupiravir and all medicines out of the reach of children and pets. How can I learn more about COVID-19? Ask your healthcare provider. Visit www.cdc.gov/COVID19 Contact your local or state public health department. Call [employer] at (toll free in the [place] Visit [email or web address] What Is an Emergency Use Authorization (EUA)? The [place] FDA has made molnupiravir available under an emergency access mechanism called an Emergency Use Authorization (EUA) The EUA is supported by a [place] of Health and Human Service (HHS) declaration that circumstances exist to justify emergency use of drugs and biological products during the COVID-19 pandemic. Molnupiravir for the treatment of hlud-wx-ddrzmjcd COVID-19 in adults with positive results of direct SARS-CoV-2 viral testing, who are at high risk for progression to severe COVID-19, including hospitalization or , and for whom alternative COVID-19 treatment options authorized by FDA are not accessible or clinically appropriate, has not undergone the same type of review as an FDA- approved product. In issuing an EUA under the COVID-19 public health emergency, the FDA has determined, among other things, that based on the total amount of scientific evidence available including data from adequate and well-controlled clinical trials, if available, it is reasonable to believe that the product may be effective for diagnosing, treating, or preventing COVID-19, or a serious or life-threatening disease or condition caused by COVID19; that the known and potential benefits of the product, when used to diagnose, treat, or prevent such disease or condition, outweigh the known and potential risks of such product; and that there are no adequate, approved, and available alternatives. All of these criteria must be met to allow for the product to be used in the treatment of patients during the COVID-19 pandemic. The EUA for molnupiravir is in effect for the duration of the COVID-19declaration justifying emergency use of molnupiravir, unless terminated or revoked (after which molnupiravir may no longer be used under the EUA). For patent information: www.[employer]/research/patent Copyright 2020 [employer] [place], [place] and its affiliates. All rights reserved. [id number] Issued: 01/27/2021 [facility] History of Present illness Narrative* Thien Stanton APRN.CNP - 04/06/2022 12:39 PM EST Images from the original note were not included. Subjective HPI HPI Ramonita El is a 82 year old male who presents today for CC of cough, congestion, st. This started 3 days ago. Has tried otc medication for relief. Symptoms are worsened by nothing. Risk factors sick exposures recently. Neck pain for few days, hx of this. Denies rash. Denies injury. .Patient presents with: Cough: Pt reported throat irritation x3 days. 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 cruciate tear, poss. 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 PMH - PAST MEDICAL HISTORY OF 1982 laceration wrist, suicidal gesture Radius fracture 06/21/2013 See scanned documents [facility] Tobacco abuse 05/22/2013 Urinary calculus, unspecified 01/05 Renal stone right side; 3 episodes with stones altogether with extraction in 1960 PAST SURGICAL HISTORY Procedure Laterality Date ATHERECTOMY, FEMORAL-POPLITEAL 09/28/2009 right COLONOSCOPY FLX DX W/COLLJ SPEC WHEN PFRMD 06/21/2015 Colonoscopy CORONARY ENDARTERCOMY OPEN ANY METHOD 08/10/2006 Angioplasty with stent ECHOCARDIOGRAM 11/24/2020 11/25/[address] Puentes: LV size and LVSF WNL, EF 55%, structurally normal valves ESOPHAGOGASTRODUODENOSCOPY TRANSORAL DIAGNOSTIC 06/21/2015 EGD PAST SURGICAL HISTORY OF 04/05/1999 Cautery and outfracture of inferior turbinates. Removal fx fragment PAST SURGICAL HISTORY OF 1960 renal stone extraction: PAST SURGICAL HISTORY OF dental extraction PICC LINE INSERT/CONSULT 04/11/2016 SLCTV CATHJ 3RD+ ORD SLCTV ABDL PEL/LXTR BRNCH 09/28/2009 VASECTOMY UNI/BI SPX W/POSTOP SEMEN EXAMS 10/1984 ALLERGIES Dust Mites, Lipitor [Atorvastatin], Lisinopril, Penicillins, Pletal [Cilostazol], and Pravastatin MEDICATIONS amLODIPine (NORVASC) 10 mg tablet Take 1 tablet by mouth once daily. pantoprazole DR (PROTONIX) 20 mg tablet TAKE 1 TABLET BY MOUTH 1/2 HOUR BEFORE BREAKFAST ON AN EMPTY STOMACH ONCE DAILY clopidogrel (PLAVIX) 75 mg tablet Take 1 tablet by mouth once daily. hydrOXYzine HCl (ATARAX) 25 mg tablet Take 1 tablet by mouth every 8 hours as needed for anxiety. metoprolol tartrate, short acting, (LOPRESSOR) 100 mg tablet Take 1 tablet by mouth twice daily. tamsulosin (FLOMAX) 0.4 mg Take 1 capsule by mouth daily at bedtime. FAMILY HISTORY Problem Relation Age of Onset Cancer Mother age 42 leukemia None Father father ubknown to pt. Coronary Artery Disease Brother bypass Social History Tobacco Use Smoking status: Every Day Packs/day: 1.00 Years: 56.00 Pack years: 56.00 Types: Cigarettes Start date: 02/05/1959 Last attempt to quit: 02/09/2016 Years since quittin.1 Smokeless tobacco: Never Vaping Use Vaping Use: Never used Substance Use Topics Alcohol use: Yes Comment: Socially Drug use: No ROS Objective Blood pressure 132/70, pulse 81, temperature 36.4 C (97.6 F), temperature source Tympanic, resp. rate 16, weight 72.8 kg (160 lb 6.4 oz), SpO2 96 %. Physical Exam Constitutional: General: He is not in acute distress. Appearance: He is not toxic-appearing or diaphoretic. HENT: Head: Normocephalic and atraumatic. Right Ear: Hearing, tympanic membrane, ear canal and external ear normal. Left Ear: Hearing, tympanic membrane, ear canal and external ear normal. Nose: Nose normal. Mouth/Throat: Pharynx: Uvula midline. Posterior oropharyngeal erythema present. No pharyngeal swelling, oropharyngeal exudate or uvula swelling. Eyes: General: Lids are normal. No scleral icterus. Right eye: No discharge. Left eye: No discharge. Conjunctiva/sclera: Conjunctivae normal. Pupils: Pupils are equal, round, and reactive to light. Neck: Trachea: Trachea normal. Comments: Full rom of neck. Area of pain noted. No rash noted. Cardiovascular: Rate and Rhythm: Normal rate and regular rhythm. Heart sounds: Normal heart sounds. Pulmonary: Effort: Pulmonary effort is normal. Breath sounds: Normal breath sounds. Musculoskeletal: Cervical back: Normal range of motion and neck supple. Lymphadenopathy: Cervical: No cervical adenopathy. Right cervical: No superficial cervical adenopathy. Left cervical: No superficial cervical adenopathy. Skin: Findings: No rash. Neurological: Mental Status: He is alert and oriented to person, place, and time. Molnupiravir pre printed, will fax if positive for covid. Molnupiravir Eligibility and Patient Discussion [facility] Formulary Restriction Criteria: Adult outpatients 18 years and older with ALL of the following: [x] Patient has positive SARS-COV-2 viral test (PCR or antigen test) during current illness [x] Patient has symptoms for 5 days or less [x] Not requiring hospitalization at any time for management of COVID-19 [x] Not requiring supplemental oxygen or a change in baseline supplemental oxygen [x] Not utilized for pre-exposure or post-exposure prophylaxis for prevention of COVID-19 [x] Patient is not or lactating [x] Meeting at least one of the criteria for high risk of progression to severe COVID-19: [x] Age over 65 years [] Cancer [] Chronic kidney disease [] Chronic liver disease [] Chronic lung diseases, including cystic fibrosis [] Dementia or other neurological conditions [] Diabetes (type 1 or type 2) [] Disabilities, including Down syndrome and neurodevelopmental disorders [] Heart conditions [] HIV infection [] Immunocompromised state [] Mental health conditions [] Medical related technological dependence (tracheostomy, gastrostomy, or positive pressure ventilation (not related to COVID) [] Overweight and obesity (BMI greater or equal to 25 for adults) [] Physical inactivity [] Sickle cell disease or thalassemia [x] Smoking, current or former [] Solid organ or blood stem cell transplant [] Stroke or cerebrovascular disease [] Substance use disorders [] Tuberculosis [] People from racial and ethnic minority groups Criteria above are met: Yes Date of Positive Test: 04/07/2022 Date of Symptom Onset: 04/04/22 Patient received COVID vaccine: Yes / status reviewed: Females: [] Patient is not currently and there is no possibility the patient could be (select one of the following): [] test does not need to be confirmed in patients who have undergone permanent sterilization, are currently using an intrauterine system or contraceptive implant, or in whom is not possible. [] Patients not meeting conditions above: assess whether the patient is based on the firstday of the last menstrual period in individuals who have regular menstrual cycles, is using reliable method of contraception correctly and consistently or have had a negative test [] A test is recommended if the individual has irregular menstrual cycles, is unsure of the first day of the last menstrual period or is not using effective contraception correctly and consistently [] Patient is not currently . is not recommended during treatment and for four days after final dose of molnupiravir. [] Females have been advised to use a reliable method of contraception correctly and consistently for the duration of treatment and for four days after the last dose of molnupiravir Males: [] Sexually active male with partner(s) of childbearing potential has been advised to use a reliable method of contraception correctly and consistently for intercourse for the duration of treatment and for three months after the last dose of molnupiravir I have discussed the use of the investigational therapeutic, molnupiravir, for the treatment of mild to moderate COVID-19 and its use under Emergency Use Authorization with the patient. The patient was informed that molnupiravir is not an FDA approved drug and that it is authorized for use under this Emergency Use Authorization. The patient was also informed of the significant knownbenefits and potential risks of molnupiravir, and the extent to which such potential risks and benefits are unknown. The patient was informed that there is mandatory reporting of all medication errors and serious adverse events potentially related to molnupiravir treatment within 7 calendar days from the onset of the event and that events up to 28 days after completion of therapy need to be reported. The discussion included alternatives to receiving molnupiravir, including clinical trials, and potential the risks and benefits of those alternatives. The patient was provided electronically withthe Fact Sheet for Patients, Parents and Caregivers. The patient was also instructed that in addition to the treatment with molnupiravir, he/she should continue to self-isolate and use infection control measures (e.g., wear mask, isolate, social distance, avoid sharing personal items, clean and disinfect high touch surfaces, and frequent handwashing) according to CDC guidelines. The patient stated understanding and gave verbal consent to proceeding with molnupiravir treatment. Thien Stanton APRN.FRETTED INSTRUMENT REPAIRER April 06, 2022 2:30 PM ASSESSMENT/PLAN: 1. Suspected COVID-19 virus infection - ICD9: V01.79, ICD10: Z20.822 (primary diagnosis) Printed rx for covid treatment If positive will need to come in and bulk picker rx and fact sheet If negative for covid, treat as common virus. - MOLNUPIRAVIR 200 MG CAPSULE (EUA) 2. Sore throat - ICD9: 462, ICD10: J02.9 Negative, viral - ALERE STREP A TEST (AG) - COVID WITH FLUA+B, ROUTINE 3. URI, acute - ICD9: 465.9, ICD10: J06.9 - Discussed viral etiology and rationale for treatment. - Symptomatic treatment with prn analgesia - Supportive care with fluids and rest - COVID WITH FLUA+B, ROUTINE - PREDNISONE 20 MG TABLET - BENZONATATE 100 MG CAPSULE - MOLNUPIRAVIR 200 MG CAPSULE (EUA) 4. Neck pain - ICD9: 723.1, ICD10: M54.2 Streoid ordered - PREDNISONE 20 MG TABLET 5. Essential hypertension, benign - ICD9: 401.1, ICD10: I10 Order cmp, not obtained since 2020. - COMP METABOLIC PANEL Thien Stanton APRN.FRETTED INSTRUMENT REPAIRER documented in [facility] Miscellaneous Notes* Telephone Encounter - Mariaa Silver LPN - 11/08/2021 4:11 PM EDT Patient is calling for refill of an eye drop, realized that he gets from his eye doctor. Patient to call that office. Mariaa Silver LPN documented in [facility] History of Past illness Narrative* Problem Noted Date Resolved Date Malnutrition of mild degree 04/11/201603/09 Hypoxemia 03/05/2016 03/17/2016 Pneumonia 03/05/2016 03/17/2016 Acute blood loss anemia 03/02/2016 09/07/19 18 Occult blood in stools 05/10/2015 7 Depression 05/10/2015 03/30/2017 Guaiac positive stools 05/07/2015 7 UTI (lower urinary tract infection) 09/23/2013 2014 BPH (benign prostatic hyperplasia) 09/23/2013 2016 Dupuytren's contracture of left hand 01/25/2012 09/06/2017 Sinus congestion 12/12/2011 2016 Carotid artery bruit 11/20/2008 10/18/2011 documented as of this encounter (statuses as of 11/08/2021) [facility] History of Past illness Narrative* Problem Noted Date Resolved Date Malnutrition of mild degree 04/11/201603/09 Hypoxemia 03/05/2016 03/17/2016 Pneumonia 03/05/2016 03/17/2016 Acute blood loss anemia 03/02/2016 09/07/19 18 Occult blood in stools 05/10/2015 7 Depression 05/10/2015 03/30/2017 Guaiac positive stools 05/07/2015 7 UTI (lower urinary tract infection) 09/23/2013 2014 BPH (benign prostatic hyperplasia) 09/23/2013 2016 Dupuytren's contracture of left hand 01/25/2012 09/06/2017 Sinus congestion 12/12/2011 2016 Carotid artery bruit 11/20/2008 10/18/2011 documented as of this encounter (statuses as of 04/06/2022) [facility] of Past illness Narrative* Problem Noted Date Resolved Date Malnutrition of mild degree 04/11/201603/09 Hypoxemia 03/05/2016 03/17/2016 Pneumonia 03/05/2016 03/17/2016 Acute blood loss anemia 03/02/2016 09/07/19 18 Occult blood in stools 05/10/2015 7 Depression 05/10/2015 03/30/2017 Guaiac positive stools 05/07/2015 7 UTI (lower urinary tract infection) 09/23/2013 2014 BPH (benign prostatic hyperplasia) 09/23/2013 2016 Dupuytren's contracture of left hand 01/25/2012 09/06/2017 Sinus congestion 12/12/2011 2016 Carotid artery bruit 11/20/2008 10/18/2011 documented as of this encounter (statuses as of 04/08/2022) [facility] of Past illness Narrative* Problem Noted Date Resolved Date Malnutrition of mild degree 04/11/201603/09 Hypoxemia 03/05/2016 03/17/2016 Pneumonia 03/05/2016 03/17/2016 Acute blood loss anemia 03/02/2016 09/07/19 18 Occult blood in stools 05/10/2015 7 Depression 05/10/2015 03/30/2017 Guaiac positive stools 05/07/2015 7 UTI (lower urinary tract infection) 09/23/2013 2014 BPH (benign prostatic hyperplasia) 09/23/2013 2016 Dupuytren's contracture of left hand 01/25/2012 09/06/2017 Sinus congestion 12/12/2011 2016 Carotid artery bruit 11/20/2008 10/18/2011 documented as of this encounter (statuses as of 04/10/2022) [facility] of Past illness Narrative* Problem Noted Date Resolved Date Malnutrition of mild degree 04/11/201603/09 Hypoxemia 03/05/2016 03/17/2016 Pneumonia 03/05/2016 03/17/2016 Acute blood loss anemia 03/02/2016 09/07/19 18 Occult blood in stools 05/10/2015 7 Depression 05/10/2015 03/30/2017 Guaiac positive stools 05/07/2015 7 UTI (lower urinary tract infection) 09/23/2013 2014 BPH (benign prostatic hyperplasia) 09/23/2013 2016 Dupuytren's contracture of left hand 01/25/2012 09/06/2017 Sinus congestion 12/12/2011 2016 Carotid artery bruit 11/20/2008 10/18/2011 documented as of this encounter (statuses as of 04/12/2022) [facility] of [facility] illness Narrative* Problem Noted Date Resolved Date Malnutrition of mild degree 04/11/201603/09 Hypoxemia 03/05/2016 03/17/2016 Pneumonia 03/05/2016 03/17/2016 Acute blood loss anemia 03/02/2016 09/07/19 18 Occult blood in stools 05/10/2015 7 Depression 05/10/2015 03/30/2017 Guaiac positive stools 05/07/2015 7 UTI (lower urinary tract infection) 09/23/2013 2014 BPH (benign prostatic hyperplasia) 09/23/2013 2016 Dupuytren's contracture of left hand 01/25/2012 09/06/2017 Sinus congestion 12/12/2011 2016 Carotid artery bruit 11/20/2008 10/18/2011 documented as of this encounter (statuses as of 04/21/2022) [facility] of [facility] illness Narrative* Problem Noted Date Resolved Date Malnutrition of mild degree 04/11/201603/09 Hypoxemia 03/05/2016 03/17/2016 Pneumonia 03/05/2016 03/17/2016 Acute blood loss anemia 03/02/2016 09/07/19 18 Occult blood in stools 05/10/2015 7 Depression 05/10/2015 03/30/2017 Guaiac positive stools 05/07/2015 7 UTI (lower urinary tract infection) 09/23/2013 2014 BPH (benign prostatic hyperplasia) 09/23/2013 2016 Dupuytren's contracture of left hand 01/25/2012 09/06/2017 Sinus congestion 12/12/2011 2016 Carotid artery bruit 11/20/2008 10/18/2011 documented as of this encounter (statuses as of 05/25/2022) [facility] of [facility] illness Narrative* Problem Noted Date Resolved Date Malnutrition of mild degree 04/11/201603/09 Hypoxemia 03/05/2016 03/17/2016 Pneumonia 03/05/2016 03/17/2016 Acute blood loss anemia 03/02/2016 09/07/19 18 Occult blood in stools 05/10/2015 7 Depression 05/10/2015 03/30/2017 Guaiac positive stools 05/07/2015 7 UTI (lower urinary tract infection) 09/23/2013 2014 BPH (benign prostatic hyperplasia) 09/23/2013 2016 Dupuytren's contracture of left hand 01/25/2012 09/06/2017 Sinus congestion 12/12/2011 2016 Carotid artery bruit 11/20/2008 10/18/2011 documented as of this encounter (statuses as of 07/05/2022) [facility] of [facility] illness Narrative* Problem Noted Date Resolved Date Malnutrition of mild degree 04/11/201603/09 Hypoxemia 03/05/2016 03/17/2016 Pneumonia 03/05/2016 03/17/2016 Acute blood loss anemia 03/02/2016 09/07/19 18 Occult blood in stools 05/10/2015 7 Depression 05/10/2015 03/30/2017 Guaiac positive stools 05/07/2015 7 UTI (lower urinary tract infection) 09/23/2013 2014 BPH (benign prostatic hyperplasia) 09/23/2013 2016 Dupuytren's contracture of left hand 01/25/2012 09/06/2017 Sinus congestion 12/12/2011 2016 Carotid artery bruit 11/20/2008 10/18/2011 documented as of this encounter (statuses as of 07/28/2022) [facility] History of Past illness Narrative* Problem Noted Date Resolved Date Malnutrition of mild degree 04/11/201603/09 Hypoxemia 03/05/2016 03/17/2016 Pneumonia 03/05/2016 03/17/2016 Acute blood loss anemia 03/02/2016 09/07/19 18 Occult blood in stools 05/10/2015 7 Depression 05/10/2015 03/30/2017 Guaiac positive stools 05/07/2015 7 UTI (lower urinary tract infection) 09/23/2013 2014 BPH (benign prostatic hyperplasia) 09/23/2013 2016 Dupuytren's contracture of left hand 01/25/2012 09/06/2017 Sinus congestion 12/12/2011 2016 Carotid artery bruit 11/20/2008 10/18/2011 documented as of this encounter (statuses as of 08/11/2022) [facility] History of Past illness Narrative* Problem Noted Date Diagnosed Date Resolved Date Malnutrition of mild degree 04/11/2016 03/30/2017 Hypoxemia 03/05/2016 03/17/2016 Pneumonia 03/05/2016 03/17/2016 Acute blood loss anemia 03/02/2016 08/03/2017 Occult blood in stools 05/10/201503/17 Depression 05/10/2015 03/30/2017 Guaiac positive stools 05/07/201503/17 UTI (lower urinary tract infection) 09/23/2013 2014 BPH (benign prostatic hyperplasia) 09/23/2013 2016 Dupuytren's contracture of left hand 01/25/2012 09/06/2017 Sinus congestion 12/12/2011 2016 Carotid artery bruit 11/20/2008 012 documented as of this encounter (statuses as of 10/04/2022) [facility] History of Past illness Narrative* Problem Noted Date Diagnosed Date Resolved Date Malnutrition of mild degree 04/11/2016 03/30/2017 Hypoxemia 03/05/2016 03/17/2016 Pneumonia 03/05/2016 03/17/2016 Acute blood loss anemia 03/02/2016 080 03/2017 Occult blood in stools 05/10/201503/17 Depression 05/10/2015 03/30/2017 Guaiac positive stools 05/07/201503/17 UTI (lower urinary tract infection) 09/23/2013 2014 BPH (benign prostatic hyperplasia) 09/23/2013 2016 Dupuytren's contracture of left hand 01/25/2012 09/06/2017 Sinus congestion 12/12/2011 2016 Carotid artery bruit 11/20/2008 012 documented as of this encounter (statuses as of 10/10/2022) [facility] History of Past illness Narrative* Problem Noted Date Diagnosed Date Resolved Date Malnutrition of mild degree 04/11/2016 03/30/2017 Hypoxemia 03/05/2016 03/17/2016 Pneumonia 03/05/2016 03/17/2016 Acute blood loss anemia 03/02/2016 080 03/2017 Occult blood in stools 05/10/201503/17 Depression 05/10/2015 03/30/2017 Guaiac positive stools 05/07/201503/17 UTI (lower urinary tract infection) 09/23/2013 2014 BPH (benign prostatic hyperplasia) 09/23/2013 2016 Dupuytren's contracture of left hand 01/25/2012 09/06/2017 Sinus congestion 12/12/2011 2016 Carotid artery bruit 11/20/2008 012 documented as of this encounter (statuses as of 10/16/2022) [facility] History of Past illness Narrative* Problem Noted Date Diagnosed Date Resolved Date Malnutrition of mild degree 04/11/2016 03/30/2017 Hypoxemia 03/05/2016 03/17/2016 Pneumonia 03/05/2016 03/17/2016 Acute blood loss anemia 03/02/2016 0803/2017 Occult blood in stools 05/10/201503/17 Depression 05/10/2015 03/30/2017 Guaiac positive stools 05/07/201503/17 UTI (lower urinary tract infection) 09/23/2013 2014 BPH (benign prostatic hyperplasia) 09/23/2013 2016 Dupuytren's contracture of left hand 01/25/2012 09/06/2017 Sinus congestion 12/12/2011 2016 Carotid artery bruit 11/20/2008 012 documented as of this encounter (statuses as of 11/17/2022) [facility] History of Past illness Narrative* Problem Noted Date Diagnosed Date Resolved Date Malnutrition of mild degree 04/11/2016 03/30/2017 Hypoxemia 03/05/2016 03/17/2016 Pneumonia 03/05/2016 03/17/2016 Acute blood loss anemia 03/02/2016 0803/2017 Occult blood in stools 05/10/201503/17 Depression 05/10/2015 03/30/2017 Guaiac positive stools 05/07/201503/17 UTI (lower urinary tract infection) 09/23/2013 2014 BPH (benign prostatic hyperplasia) 09/23/2013 2016 Dupuytren's contracture of left hand 01/25/2012 09/06/2017 Sinus congestion 12/12/2011 2016 Carotid artery bruit 11/20/2008 012 documented as of this encounter (statuses as of 12/01/2022) [facility] History of Past illness Narrative* Problem Noted Date Diagnosed Date Resolved Date Malnutrition of mild degree 04/11/2016 03/30/2017 Hypoxemia 03/05/2016 03/17/2016 Pneumonia 03/05/2016 03/17/2016 Acute blood loss anemia 03/02/2016 080 03/2017 Occult blood in stools 05/10/201503/17 Depression 05/10/2015 03/30/2017 Guaiac positive stools 05/07/201503/17 UTI (lower urinary tract infection) 09/23/2013 2014 BPH (benign prostatic hyperplasia) 09/23/2013 2016 Dupuytren's contracture of left hand 01/25/2012 09/06/2017 Sinus congestion 12/12/2011 2016 Carotid artery bruit 11/20/2008 012 documented as of this encounter (statuses as of 12/12/2022) [facility] History of Past illness Narrative* Problem Noted Date Diagnosed Date Resolved Date Malnutrition of mild degree 04/11/2016 03/30/2017 Hypoxemia 03/05/2016 03/17/2016 Pneumonia 03/05/2016 03/17/2016 Acute blood loss anemia 03/02/2016 080 03/2017 Occult blood in stools 05/10/201503/17 Depression 05/10/2015 03/30/2017 Guaiac positive stools 05/07/201503/17 UTI (lower urinary tract infection) 09/23/2013 2014 BPH (benign prostatic hyperplasia) 09/23/2013 2016 Dupuytren's contracture of left hand 01/25/2012 09/06/2017 Sinus congestion 12/12/2011 2016 Carotid artery bruit 11/20/2008 012 documented as of this encounter (statuses as of 01/12/2023) [facility] History of Past illness Narrative* Problem Noted Date Diagnosed Date Resolved Date Malnutrition of mild degree 04/11/2016 03/30/2017 Hypoxemia 03/05/2016 03/17/2016 Pneumonia 03/05/2016 03/17/2016 Acute blood loss anemia 03/02/2016 080 03/2017 Occult blood in stools 05/10/201503/17 Depression 05/10/2015 03/30/2017 Guaiac positive stools 05/07/201503/17 UTI (lower urinary tract infection) 09/23/2013 2014 BPH (benign prostatic hyperplasia) 09/23/2013 2016 Dupuytren's contracture of left hand 01/25/2012 09/06/2017 Sinus congestion 12/12/2011 2016 Carotid artery bruit 11/20/2008 012 documented as of this encounter (statuses as of 01/26/2023) [facility] History of Past illness Narrative* Problem Noted Date Diagnosed Date Resolved Date Malnutrition of mild degree 04/11/2016 03/30/2017 Hypoxemia 03/05/2016 03/17/2016 Pneumonia 03/05/2016 03/17/2016 Acute blood loss anemia 03/02/2016 080 03/2017 Occult blood in stools 05/10/201503/17 Depression 05/10/2015 03/30/2017 Guaiac positive stools 05/07/201503/17 UTI (lower urinary tract infection) 09/23/2013 2014 BPH (benign prostatic hyperplasia) 09/23/2013 2016 Dupuytren's contracture of left hand 01/25/2012 09/06/2017 Sinus congestion 12/12/2011 2016 Carotid artery bruit 11/20/2008 012 documented as of this encounter (statuses as of 04/12/2023) [facility] History of Past illness Narrative* Problem Noted Date Diagnosed Date Resolved Date Malnutrition of mild degree 04/11/2016 03/30/2017 Hypoxemia 03/05/2016 03/17/2016 Pneumonia 03/05/2016 03/17/2016 Acute blood loss anemia 03/02/2016 080 03/2017 Occult blood in stools 05/10/201503/17 Depression 05/10/2015 03/30/2017 Guaiac positive stools 05/07/201503/17 UTI (lower urinary tract infection) 09/23/2013 2014 BPH (benign prostatic hyperplasia) 09/23/2013 2016 Dupuytren's contracture of left hand 01/25/2012 09/06/2017 Sinus congestion 12/12/2011 2016 Carotid artery bruit 11/20/2008 012 documented as of this encounter (statuses as of 05/25/2023) [facility] Lucien Matthews [facility] Note Date/Time May 18, 2024 6:5 8am [facility] Medical Records Department [address] [place] [address] Emergency Department Summary 05/18/24 MR#: [id number] Acct: [id number] Name: RAMONITA EL Rep #:[id number] : [id number] 84 From: Lucien Post PCP: DALIA PillaiC Status:REG E R Location: ED [facility] History of Present Illness Chief Complaint: Shortness of Breath 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) Encounter for pre-operative cardiovascular clearance Hypertrophy of prostate with urinary obstruction 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 Chronic pancreatitis Atherosclerosis of coronary artery without angina pectoris Essential hypertension Alcoholism Home Medications ?Medication ?Instructions ?Recorded ?Last Taken ?Type amlodipine 10 mg tablet 10 mg PO DAILY 05/02/1604/25 04:00 History clopidogrel 75 mg tablet 75 mg PO DAILY 05/02/1611/06 History tamsulosin 0.4 mg capsule (Flomax) 0.4 mg PO DAILY 12/07/20 History hydroxyzine HCl 25 mg tablet 25 mg PO DAILY PRN rash 1 Unknown History metoprolol tartrate 100 mg tablet 100 mg PO BID 12/08/20 04:00 History pantoprazole 20 mg tablet,delayed 20 mg PO DAILY 11/0912/07/20 History release (Protonix) ibuprofen 600 mg tablet 600 mg PO Q6H PRN pain #20 t abs 12/08/20 Unknown Rx ciprofloxacin HCl 500 mg tablet 500 mg PO BID #6 TABLE TS 02/11/24 Unknown Rx levofloxacin 750 mg tablet 750 mg PO DAILY 5 days #5 t abs 05/18/24 Unknown Rx Allergy/AdvReac Type Severity Reaction Status Date / Time Penicillins Allergy Hives Verified 01/16/24 04:02 Surgical History History of angioplasty of peripheral vessel (09/28/09) History of coronary artery stent placement (08/10/06) Social History Smoking Status: Heavy Smoker (>10/day) EXAM Physical Exam Const Vital Signs: 05/18/24 05:24 05/18/24 05:30 05/18/24 05:39 Temperature 98.2 F Temperature Source Oral Pulse Rate 102 H Respiratory Rate 22 H Respiratory Effort Normal Blood Pressure 213/86 H Blood Pressure Mean 128 Pulse Ox 97 95 Oxygen Delivery Method Room Air Room Air Room Air 05/18/24 06:24 05/18/24 06:28 05/18/24 06:49 Temperature 98.1 F 98 F Temperature Source Oral Oral Pulse Rate 63 61 65 Respiratory Rate 18 18 19 H Respiratory Effort Blood Pressure 167/70 H 158/63 H 153/64 H Blood Pressure Mean 102 94 93 Pulse Ox 97 92 92 Oxygen Delivery Method Room Air Room Air Room Air [facility] Narrative Medical decision making narrative: HISTORY OF PRESENT ILLNESS: Chief complaint: Shortness of breath 84-year-old male history of of COPD, CAD status post stent, peripheral artery disease, history of smoking, hypertension, alcoholism, presents with shortness of breath. The patient states he choked on his pill. He then vomited back up. He states now short of breath. When asked if he has chest pain patient says a little bit. He endorses tightness in his lower sternal area. Notes he feels better now but still feels slightly short of breath. The patient denies recent surgery in the last 4 weeks or immobilization in the last 3 days, denies previous diagnosis of DVT or PE, hemoptysis, unilateral leg swelling or malignancy with treatment the last 6 months or palliative. No estrogen use noted. REVIEW OF SYSTEMS: Pertinent positives: Shortness of breath, vomiting Pertinent negatives: Leg swelling, syncope, fever PHYSICAL EXAM: Nursing triage notes reviewed, Vital signs reviewed Constitutional: please see mdm HENT: MMM Eyes: Pupils equal round and reactive to light, Extraocular muscles intact Neck: No stridor, no JVD, full neck ROM Lungs: Clear to auscultation, No wheezing or rales. No increased work of breathing, no conversational dyspnea, no accessory muscle use, no nasal flaring. No respiratory distress noted Heart: Regular rate and rhythm, No murmurs, No rubs and No gallops, 2+ distal pulses (radial, femoral, posterior tibial) in all extremities Abdomen: Soft, there is no tenderness, rigidity, rebound or guarding, no obviousperitoneal signs, no palpable pulsatile abdominal masses, no auscultated abdominal bruit : No CVAT Extremities: No edema Neuro: No new focal neurological deficits, cranial nerves II through XII intact,5/5 strength in all present extremities. Intact sensation to light touch in all present extremities, 2+ reflexes bilateral patella tendons. Skin: No rash or lesions noted MEDICAL DECISION MAKING: Chief Complaint: please see HPI External records reviewed: Reviewed prior medications. Reviewed past medical history. Reviewed prior cardiovascular testing. Reviewed echocardiogram from 2020. . Showed ejection fraction of 55%. No regional wall motion abnormalities Factors affecting care: As per HPI Social determinants of health: History of smoking History obtained from others: none Consults: none [facility] Narrative: The patient was initially hypertensive with a blood pressure 113/86, tachycardicwith a heart rate of 102, tachypneic with respiratory 22 otherwise afebrile. Saturating 97% on room air. Exam with clear lungs, no wheezing. No rales. No lower extremity edema. No stigmata of VTE. I considered the following differential diagnosis: Aspiration, pneumonia, COPD exacerbation, ACS, arrhythmia, anemia ALL IMAGES (IF OBTAINED) HAVE BEEN PERSONALLY REVIEWED AND INTERPRETED BY MYSELF. EKG with normal sinus rhythm, normal axis, prolonged GA interval, first-degree block, QTc 459, no obvious STEMI, occasional PVCs CBC without leukocytosis, severe anemia, no thrombocytopenia. I have personally reviewed the patient's chest x-ray.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 Start: May 18, 2024 End: May 18, 2024 Team Status: Inactive Member Role Status Dates Karla Baron UPPERS EDGE BURNISHER, UPPERS EDGE BURNISHER-C Primary Care Provider Active Start: June 03, 2024 End: June 03, 2024 Karla Baron UPPERS EDGE BURNISHER, UPPERS EDGE BURNISHER-C Referring Provider Active Start: June 03, 2024 End: June 03, 2024 KRISTI Garza Attending Provider Active Star t: June 03, 2024 End: June 03, 2024 Team Status: Inactive Member Role Status Dates Karla Baron NP, UPPERS EDGE BURNISHER-C Primary Care Provider Active Start: June 05, 2024 End: June 05, 2024 KRISTI Garza Attending Provider Active Star t: June 05, 2024 End: June 05, 2024 KRISTI Garza Referring Provider Active Star t: June 05, 2024 End: June 05, 2024 Team Status: Active Member Role Status Dates Karla Baron NP, UPPERS EDGE BURNISHER-C Primary Care Provider Active Start: June 05, 2024 Dr. Mello Demarco MD Attending Provider Active S tart: June 05, 2024 KRISTI Garza Referring Provider Active Star t: June 05, 2024 Team Status: Inactive Member Role Status Dates Karla Baron NP, UPPERS EDGE BURNISHER-C Primary Care Provider Active Start: July 03, 2024 End: July 03, 2024 KRISTI Garza Attending Provider Active Star t: July 03, 2024 End: July 03, 2024 KRISTI Garza Referring Provider Active Star t: July 03, 2024 End: July 03, 2024 Team Status: Inactive Member Role Status Dates Karla Baron NP, UPPERS EDGE BURNISHER-C Primary Care Provider Active Start: July 17, 2024 End: July 17, 2024 Karla Baron NP, UPPERS EDGE BURNISHER-C Referring Provider Active Start: July 17, 2024 End: July 17, 2024 Dr. Mello Demarco MD Attending Provider Active S tart: July 17, 2024 End: July 17, 2024 (unrecognized sect ion and content) No Status Records FoundNo Status Records Found INFORMATION SOURCE (unrecogn ized section and content) DATE CREATED AUTHOR 07/04/2024 [facility] DATE CREATED AUTHOR AUTHOR'S ORGANIZ ATION 07/28/[address] [facility] FOR RECORDS PERTAINING TO PATIENTS WHO ARE OR HAVE BEEN ENROLLED IN A CHEMICAL DEPENDENCY/SUBSTANCEABUSE PROGRAM, SOME INFORMATION MAY BE OMITTED. This clinical summary was aggregated from multiple sources. Caution should be exercised in using it in the provision of clinical care. This summary normalizes information from multiple sources, and as a consequence, information in this document may materially change the coding, format and clinical context of patient data. In addition, data may be omitted in some cases. CLINICAL DECISIONS SHOULD BE BASED ON THE PRIMARY CLINICAL RECORDS. [facility]. provides no warranty or guarantee of the accuracy or completeness of information in this document.
[2024-07-29] MEDS: predniSONE 20 MG Tablet 40 MG PO (07:23)
[2024-07-29 07:27] VITALS: BP 149/87; PULSE 62; RESP 18; TEMP 36.7; O2SAT 98
== END 2024-07-29 07:29 | disposition home or self-care (01) ==
PROVIDERS: Emergency Provider Emergency Medicine; PCP Registered Nurse; Visit Provider Emergency Medicine
DX: M25.562 Pain in left knee (principal); J44.9 Chronic obstructive pulmonary disease, unspecified; I10 Essential (primary) hypertension; I25.10 Atherosclerotic heart disease of native coronary artery without angina pectoris; Z79.02 Long term (current) use of antithrombotics/antiplatelets; K21.9 Gastro-esophageal reflux disease without esophagitis; F17.200 Nicotine dependence, unspecified, uncomplicated
CPT/HCPCS: 73564; 99282

== ENCOUNTER → 2024-08-15 | Outpatient (CLI) | payer MEDICARE, OTHER, SELFPAY ==
--- NOTE | 2024-08-15 07:16 | ECHOD_ITS ---
Reason For Study Reason For Study: CAD/ASHD Procedure This was a 2D Doppler, Color Flow transthoracic echocardiogram. Exam performed in department. Left Ventricle Normal LV size. Moderate eccentric left ventricular hypertrophy. The left ventricular ejection fraction is 60 %. Stage 1 diastolic dysfunction. No regional wall motion abnormalities noted. Right Ventricle Normal RV size. Normal systolic function. Atria Normal left atrium. Normal right atrium. Mitral Valve Normal mitral valve. Tricuspid Valve Normal tricuspid valve. Aortic Valve Trisinus/trileaflet aortic valve. Mild focal aortic valve calcification. Pulmonic Valve Normal pulmonic valve. Great Vessels Normal aortic root. The pulmonary artery is normal size. Inferior vena cava collapse with respiration. Pericardium/Pleural No pericardial effusion. MMode/2D Measurements & Calculations LVIDd: 3.7 cm IVSd: 1.5 cm LVOT diam: 2.0 cm LVIDs: 2.4 cm LVPWd: 0.71 cm LVOT area: 3.1 cm2 FS: 36.4 % LAV(MOD-bp): 32.7 ml LVAd ap4: 29.4 cm2 SV(MOD-sp4): 47.9 ml LAV(MOD-bp) Indexed: 17.6 ml/m2 LVLd ap4: 8.9 cm SI(MOD-sp4): 25.8 ml/m2 LAV(MOD-sp2): 25.1 ml EDV(MOD-sp4): 79.9 ml LAV(MOD-sp4): 41.0 ml EDV(sp4-el): 82.5 ml LVAs ap4: 16.2 cm2 LVLs ap4: 7.0 cm ESV(MOD-sp4): 32.0 ml ESV(sp4-el): 31.9 ml EF(MOD-sp4): 60.0 % EF(sp4-el): 61.3 % SV(sp4-el): 50.6 ml LA A4 area: 16.3 cm2 RA A4 area: 11.2 cm2 Time Measurements MV dec time: 0.29 sec Doppler Measurements & Calculations MV E max lazaro: 68.9 cm/sec Lat Peak E' Lazaro: 9.6 cm/sec Med Peak E' Lazaro: 5.4 cm/sec MV A max lazaro: 103.8 cm/sec E/E' lat: 7.2 E/E' med: 12.8 MV E/A: 0.66 MV V2 max: 106.4 cm/sec LV V1 max: 100.9 cm/sec MV max P.5 mmHg MV dec slope: 235.2 cm/sec2 LV V1 max P.1 mmHg MV V2 mean: 48.6 cm/sec LV V1 mean P.3 mmHg MV mean P.2 mmHg LV V1 mean: 73.2 cm/sec MV V2 VTI: 25.5 cm LV V1 VTI: 24.5 cm MVA(VTI): 3.0 cm2 SV(LVOT): 75.5 ml PA V2 max: 111.6 cm/sec ECHO/Echo Complete Interpretation Summary Normal LV size. Moderate eccentric left ventricular hypertrophy. The left ventricular ejection fraction is 60 %. Stage 1 diastolic dysfunction. Mild focal aortic valve calcification. Ordering Physician: Kp Puentes Referring Physician: Kp Puentes Performed By: Lisa Olmedo and Student
[2024-08-15 08:15] LABS: Hematocrit 47.1 % (40-54); Hemoglobin 16.1 g/dL (13.0-16.5); Mean Corp Hgb Conc 34.2 g/dL (32-36); Mean Corpuscular Volume 92.2 fL (80-94); Mean Platelet Vol. 10.8 fl (6.2-12.0); Platelet Count 213 K/mm3 (150-450); RBC Distribution Width CV 13.0 % (11.6-14.6); RBC Distribution Width SD 43.6 fl (35.1-43.9); Red Blood Count 5.11 M/mm3 (4.6-6.2); White Blood Count 12.0 K/mm3 (4.4-11.0)
[2024-08-15 08:47] LABS: Anion Gap 11 (5-15); BUN 15 mg/dL (4-19); BUN/Creat Ratio 22.8 RATIO (10-20); Calcium,Total 9.4 mg/dL (7.6-11.0); Carbon Dioxide 23.8 mmol/L (21.0-32.0); Chloride 101 mmol/L (98-108); Glucose 99 mg/dL (70-99); Potassium 4.1 mmol/L (3.3-5.1)
--- NOTE | 2024-08-15 10:01 | STRESSREP ---
Stress Test Report Pharmacologic myocardial perfusion stress test. ? 84-year-old male with past medical history of hypertension, CAD with history of PCI to LAD, PAD, smoker and right carotid stenosis undergoing stress test as preoperative evaluation for cardiac clearance for right carotid endarterectomy Resting EKG demonstrates normal sinus with a rate of 68 bpm.??Resting blood pressure is 136/72 mmHg.??0.4 mg of regadenoson was infused per usual protocol followed by rapid intravenous saline flush injection.??Continuous EKG monitoring was performed.??The maximum heart rate was 100 bpm which was 72% of max impacted heart rate the maximum workload was 1 metabolic equivalent.??At rest there were no ST or T wave changes noted to suggest ischemia and at peak infusion nonspecific ST changes were noted which did not meet the criteria for ischemia.?No clinical angina is noted.??The final blood pressure was 142/80 mmHg. Myocardial perfusion protocol. [11.2 ] mCi of technetium 99m sestamibi was injected at rest.??0.4 mg of regadenoson was infused per usual protocol.??At peak infusion [32.1] mCi of technetium 99m sestamibi was injected stress images were obtained stress and rest images were reconstructed and compared in the short axis vertical long and horizontal long axis.??Gated images were also obtained. ? Perfusion SPECT analysis: Review of the stress images demonstrate decreased uptake of tracer noted in inferior lateral and anterior lateral areas of the myocardium.??The resting images demonstrated decreased uptake of tracer noted in anterior lateral area of the myocardium.??Reversibility are noted to suggest lateral ischemia with previous nichol infarct iscehmia is noted. Small- medium sized area of stress-induced ischemia of the inferior lateral segment of the left ventricle and small to medium size area of myocardial infarction in the anterior lateral area of the of the LV ? Gated SPECT analysis: The gated ejection fraction is 56. Conclusion: Abnormal pharmacologic myocardial perfusion stress test. Small- medium sized area of stress-induced ischemia of the inferior lateral segment of the left ventricle and small to medium size area of myocardial infarction in the anterior lateral area of the of the LV Preserved ejection fraction.
== END | disposition home or self-care (01) ==
LOC: CVS 07:00
PROVIDERS: Surgery Trauma Surgery; PCP Registered Nurse; Referring Provider Internal Medicine Cardiovascular Disease; Visit Provider Internal Medicine Cardiovascular Disease
DX: Z01.818 Encounter for other preprocedural examination (principal); Z01.810 Encounter for preprocedural cardiovascular examination; I25.10 Atherosclerotic heart disease of native coronary artery without angina pectoris
CPT/HCPCS: 36415; 78452; 80048; 85027; 86850; 86900; 86901; 93017; 93306; A9500; A4216; J2785

== ENCOUNTER 2024-08-25 09:15 | Day surgery (SDC) | payer MEDICARE, OTHER, SELFPAY ==
[2024-08-22 08:42] VITALS: BMI 23.1
--- NOTE | 2024-09-15 09:47 | CL.D_ITS ---
Patient Name: RAMONITA EL Study Date: 08/25/2024 Performing: Kp Puentes MD Ht: 68 inches 172.72 cm : 1940 Wt: 152.01 lbs 68.95 kg Age: 84 Gender: male BSA: 1.82 PROCEDURE(S) PERFORMED [id number])[facility] CLINICAL PROFILE AND INDICATIONS Indications: Suspected CAD Heart Failure: None Stress/Imaging Date: 08/15/24Stress Test with SPECT MPI: Positive Low Risk CAD Presentations: No Sxs, no angina. CONCLUSIONS Coronary calcification Severe right coronary artery stenosis with calcification and tortuosity moderate LAD disease and a subtotally old obtuse marginal vessel with preserved left ventricular systolic function. Patient with no angina. RECOMMENDATIONS Recommend continued aggressive medical therapy. No intervention is required for this asymptomatic patient prior to carotid surgery. DESCRIPTION OF PROCEDURE The patient arrived to the procedure lab. The risks and benefits of the procedure as well as a full description of our services here and current unavailability of surgical backup were fully explained to the patient and/or their significant other prior to the catheterization. The Timeout was completed, verifying the correct patient and procedure. The patient's procedural site was prepped and draped in the usual fashion. Local anesthetic was given subcutaneously to right radial region with Lidocaine 2%. Local anesthetic was given subcutaneously to right groin region with Lidocaine 2%. Local anesthetic was given subcutaneously to left groin region with Lidocaine 2%. Using a modified Seldinger technique, arterial access was obtained via the left femoral artery, a 5Fr sheath was inserted. Left Coronary Artery selective angiography was performed in multiple views using a 5 Fr. JL4 catheter. Right Coronary Artery selective angiography was then performed in multiple views using a 5 Fr. 3DRC (Lai) catheter.The arterial sheath was pulled and manual compression applied until hemostasis is achieved. CORONARY ANGIOGRAPHY DOMINANCE: Right Dominant LEFT HEART ASSESSMENT Left Ventricular Ejection Fraction: by Echo 65 % Normal LV wall motion Normal Left Ventricular systolic function LEFT MAIN: Mild calcification, Mild luminal irregularities LEFT ANTERIOR DESCENDING ARTERY: Moderate luminal irregularities up to 50% CIRCUMFLEX ARTERY: Ostial circumflex stenosis with 60% stenosis and the second obtuse marginal branch being subtotally occluded RIGHT CORONARY ARTERY: Dominant very calcified right coronary artery which is tortuous with proximal 70% stenosis mid 80% stenosis and then distal 50% stenosis COMPLICATIONS No Complications PROCEDURE MEDICATIONS Fentanyl 50 mcg IV Versed 1 mg IV Versed 1 mg IV Fentanyl 50 mcg IV Oxygen: 2 L/min via nasal cannula Aspirin (325mg) 1 Tabs PO @ 08/25/2024 09:40:16 SUMMARY OF HEMODYNAMIC DATA Time AIR REST ECG 09:42:27 AO 173/64 (103) SA 11:49:54 Signed By Kp Puentes MD On 08/25/2024 14:18:31 Kp Puentes MD
== END 2024-08-25 16:45 | disposition home or self-care (01) ==
PROVIDERS: PCP Registered Nurse; Referring Provider Internal Medicine Cardiovascular Disease; Visit Provider Internal Medicine Cardiovascular Disease
DX: I25.10 Atherosclerotic heart disease of native coronary artery without angina pectoris (principal); J44.9 Chronic obstructive pulmonary disease, unspecified; Z95.5 Presence of coronary angioplasty implant and graft; R09.89 Other specified symptoms and signs involving the circulatory and respiratory systems; I65.21 Occlusion and stenosis of right carotid artery; I73.9 Peripheral vascular disease, unspecified; Z79.899 Other long term (current) drug therapy; I10 Essential (primary) hypertension; K21.9 Gastro-esophageal reflux disease without esophagitis; I25.2 Old myocardial infarction
CPT/HCPCS: 93454; 99152; 99153; C1894; Q9967; C1769

== ENCOUNTER 2024-09-17 13:25 | Inpatient (IN) | payer MEDICARE, OTHER, SELFPAY ==
--- NOTE | 2024-08-15 14:33 | PAT.ANE_ITS ---
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 When Was Last Pacemaker Check QUESTION #4 FULL TEXT: You/Your Family Experience fever (hyperthermia) with Anesthesia Last Oral Intake Last Oral intake: Last Oral Intake NPO since Meds taken in AM with sips of water? Meds patient instructed to take am of surgery PONV PONV - marine service manager: PONV - marine service manager Female No 08/05/24 13:09 HX of Motion Sickness No 08/05/24 13:09 HX of N/V After Surgery No 08/05/24 13:09 Non-Smoker No 08/05/24 13:09 Duration of Surgery greater Yes 08/05/24 13:09 than 60 minutes Number of Risk Factors 1 08/05/24 13:09 PONV Score Low Risk 08/05/24 13:09 Height & Weight Height & Weight: Anesthesia: Height & Weight Height 5 ft 8 in 08/04/24 13:45 Respiratory Assessment Respiratory Assessment - marine service manager: Respiratory Tract Infection Hx - marine service manager Hx Respiratory Tract Infection No 08/05/24 13:09 STOP Sleep Apnea STOP Sleep Apnea - marine service manager: STOP Sleep Apnea - marine service manager Hx Hypertension Yes 08/05/24 13:09 Hx Sleep Apnea No 08/05/24 13:09 CPAP BIPAP Do you snore loudly (louder No 08/05/24 13:09 than talking or can be heard Do you often feel tired/ No 08/05/24 13:09 fatigued/ sleepy during daytime? Has anyone observed you stop No 08/05/24 13:09 breathing during sleep? STOP Results Negative 08/05/24 13:09 QUESTION #5 FULL TEXT : Do you snore loudly (louder than talking or can be heard through closed doors)? Tobacco Use History Tobacco Use History - marine service manager: Tobacco Use History - marine service manager Tobacco Use Smoking Status Current every day smoker 08/05/24 13:09 Hx Tobacco Use No 08/05/24 13:09 Years Smoking Packs Smoked per Day Smoking Cessation Date was within the last 15 years Hx Smoking Cessation Date Hx Smoking Cessation Counseling Hematologic Medial History Hematologic Hx - marine service manager: Hematologic Medical Hx - core cutter Hx of Blood Transfusion No 08/05/24 13:09 Hx of Transfusion in last 3 No 08/05/24 13:09 Months Date of Last Transfusion (if within last 3 months) Ever experience any problems No 08/05/24 13:09 with transfusion(s)? Specify any problems Hx of Preganancy in last 3 N/A 08/05/24 13:09 Months Nurse Filling Out Transfusion [facility] 08/05/24 13:09 & Questions: Date: 08/05/24 08/05/24 13:09 Time: 13:22 08/05/24 13:09 Patient unable to answer at this time (ie. confused, unrespo /Reproduction History /Reproductive History - marine service manager: /Reproductive Hx- marine service manager Hx Now No 08/05/24 13:09 Gestational Age (in weeks): EDC: Hx Hx Para Hx Section SAB No 08/05/24 13:09 Active Medications Active Medications: Current Medications Generic Name Dose Route Start Last Admin Trade Name Freq PRN Reason Stop Dose Admin Clindamycin Phosphate 900 mg in 50 mls @ 75 mls/hr 08/18/24 07:30 Cleocin IV 08/18/24 08:09 INTRAOP ONE [facility] Medical History (Updated 08/06/24 @ 00:01 by Background Dilia) Wears glasses Alcohol use Easy bruising Smoker History of steroid therapy History of echocardiogram History of stress test Cardiology follow-up encounter Osteoarthritis of left knee Stenosis of right carotid artery Anxiety Lower extremity pain Carotid stenosis, right 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 Prostate disease Gastric reflux COPD (chronic obstructive pulmonary disease) 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) Encounter for pre-operative cardiovascular clearance Hypertrophy of prostate with urinary obstruction 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 Atherosclerosis of coronary artery without angina pectoris Essential hypertension Alcoholism Home Medications ?Medication ?Instructions ?Recorded ?Last Taken ?Type amlodipine 10 mg tablet 10 mg PO DAILY HYPERTENSION 05/02/16 12/08/20 04:00 History clopidogrel 75 mg tablet 75 mg PO DAILY BLOOD THINNER 05/02/16 11/30/20 History tamsulosin 0.4 mg capsule (Flomax) 0.4 mg PO DAILY PRO STATE 05/02/16 12/07/20 History metoprolol tartrate 100 mg tablet 100 mg PO BID HTN 12/08/20 04:00 History pantoprazole 20 mg tablet,delayed 20 mg PO DAILY GERD 11/09/20 12/07/20 History release (Protonix) acetaminophen 500 mg tablet 500 mg PO Q4H PRN pain 03/01 Unknown History (Tylenol Extra Strength) Allergy/AdvReac Type Severity Reaction Status Date / Time cilostazol (From Pletal) Allergy Intermediate PT UNSURE Verified 08/05/24 13:05 OF REACTION lisinopril Allergy Intermediate PT UNSURE Verified 08/05/24 13:05 OF REACTION Penicillins Allergy Hives Verified 08/05/24 13:05 atorvastatin AdvReac Intermediate myalgia Verified 08/05/24 13:05 pravastatin AdvReac Intermediate myalgia Verified 08/05/24 13:05 Family History Mother Cancer Brother Heart disease Surgical History History of colonoscopy History of angioplasty of peripheral vessel (09/28/09) History of coronary artery stent placement (08/10/06) Social History Smoking Status: Current every day smoker tobacco type: cigarettes alcohol intake: current alcohol intake frequency: a few times a month substance use type: does not use Audit: Pertinent Findings Pertinent Findings EKG Perinent findings: 07/30/2024. Normal sinus rhythm 71 bpm right bundle branch block. Consult pertinent findings: 07/30/2024. Cardiology. Preoperative cardiovascular clearance. Recommendation is to undergo a myocardial perfusion stress test. As well as echocardiogram. Recommendation Anesthesia Recommendation Anesthesia recommendation: F/U recommended (Await stress test and echo results per cardiology. Before having carotid surgery.)
--- NOTE | 2024-09-05 13:01 | PAT.ANESEVAL ---
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 When Was Last Pacemaker Check QUESTION #4 FULL TEXT: You/Your Family Experience fever (hyperthermia) with Anesthesia Last Oral Intake Last Oral intake: Last Oral Intake NPO since Meds taken in AM with sips of water? 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 forging machine operator Female No 09/05/24 11:02 HX of Motion Sickness No 09/05/24 11:02 HX of N/V After Surgery No 09/05/24 11:02 Non-Smoker No 09/05/24 11:02 Duration of Surgery greater Yes 09/05/24 11:02 than 60 minutes Number of Risk Factors 1 09/05/24 11:02 PONV Score Low Risk 09/05/24 11:02 Height & Weight Height & Weight: Anesthesia: Height & Weight Height 5 ft 8 in 08/25/24 09:40 Respiratory Assessment Respiratory Assessment - heavy forging machine operator: Respiratory Tract Infection Hx - heavy forging machine operator Hx Respiratory Tract Infection No 09/05/24 11:02 STOP Sleep Apnea STOP Sleep Apnea - heavy forging machine operator: STOP Sleep Apnea - heavy forging machine operator Hx Hypertension Yes 09/05/24 11:02 Hx Sleep Apnea No 09/05/24 11:02 CPAP BIPAP Do you snore loudly (louder No 09/05/24 11:02 than talking or can be heard Do you often feel tired/ No 09/05/24 11:02 fatigued/ sleepy during daytime? Has anyone observed you stop No 09/05/24 11:02 breathing during sleep? STOP Results Negative 09/05/24 11:02 QUESTION #5 FULL TEXT : Do you snore loudly (louder than talking or can be heard through closed doors)? 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 Specify any problems Hx of Preganancy in last 3 N/A 09/05/24 11:02 Months Nurse Filling Out Transfusion [facility] 09/05/24 11:02 & Questions: Date: 09/05/24 09/05/24 11:02 Time: 11:02 09/05/24 11:02 Patient unable to answer at this time (ie. 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: /Reproductive Hx- heavy forging machine operator Hx Now No 09/05/24 11:02 Gestational Age (in weeks): EDC: Hx Hx Para Hx Section SAB No 09/05/24 11:02 PFSH Medical History (Updated 09/05/24 @ 11:13 by Noris Silver) Wears glasses Alcohol use Easy bruising Smoker History of steroid therapy History of echocardiogram History of stress test Cardiology follow-up encounter Osteoarthritis of left knee Stenosis of right carotid artery Anxiety Lower extremity pain Carotid stenosis, right 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 Prostate disease Gastric reflux COPD (chronic obstructive pulmonary disease) 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) Encounter for pre-operative cardiovascular clearance Hypertrophy of prostate with urinary obstruction 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 Atherosclerosis of coronary artery without angina pectoris Essential hypertension Alcoholism Home Medications ?Medication ?Instructions ?Recorded ?Last Taken ?Type amlodipine 10 mg tablet 10 mg PO DAILY HYPERTENSION 05/02/16 08/25/24 History clopidogrel 75 mg tablet 75 mg PO DAILY BLOOD THINNER 05/02/16 08/25/24 History tamsulosin 0.4 mg capsule (Flomax) 0.4 mg PO DAILY PROSTATE 05/02/16 12/07/20 History metoprolol tartrate 100 mg tablet 100 mg PO BID HTN 11/09/20 08/25/24 History pantoprazole 20 mg tablet,delayed 20 mg PO DAILY GERD 11/09/20 12/07/20 History release (Protonix) acetaminophen 500 mg tablet 500 mg PO Q4H PRN pain 08/05/24 Unknown History (Tylenol Extra Strength) losartan 25 mg tablet 25 mg PO QDAY bp 09/03/24 Unknown History brimonidine 0.2 % eye drops 1 drp ophthalmic (eye) BID pressure 09/05/24 Unknown History latanoprost 0.005 % eye drops drp ophthalmic (eye) pressure 09/05/24 Unknown History timolol maleate 0.5 % eye drops 1 drp ophthalmic (eye) BID pressure 09/05/24 Unknown History Allergy/AdvReac Type Severity Reaction Status Date / Time cilostazol (From Pletal) Allergy Intermediate PT UNSURE Verified 09/05/24 10:54 OF REACTION lisinopril Allergy Intermediate PT UNSURE Verified 09/05/24 10:54 OF REACTION Penicillins Allergy Hives Verified 09/05/24 10:54 atorvastatin AdvReac Intermediate myalgia Verified 09/05/24 10:54 pravastatin AdvReac Intermediate myalgia Verified 09/05/24 10:54 Family History Mother Cancer Brother Heart disease Surgical History (Updated 09/05/24 @ 11:13 by Noris Silver) Hx of cardiac cath History of colonoscopy History of angioplasty of peripheral vessel (09/28/09) History of coronary artery stent placement (08/10/06) Social History Smoking Status: Heavy Smoker (>10/day) alcohol intake: current alcohol intake frequency: a few times a month substance use type: does not use Audit: Pertinent Findings HISTORY of Pertinent Findings History of Pertinent Findings: EKG Pertinent Findings EKG Perinent findings 07/30/2024. Normal sinus 08/15/24 14:38 rhythm 71 bpm right bundle branch block. Consult Pertinent Findings Consult pertinent findings 07/30/2024. Cardiology. 08/15/24 14:38 Preoperative cardiovascular clearance. Recommendation is to undergo a myocardial perfusion stress test. As well as echocardiogram. Pertinent Findings Stress test pertinent findings: August 15, 2024. EF of 56%. Small to medium size area of stress-induced ischemia of the inferior lateral segment of the left ventricle and small to medium sized area of myocardial infarction in the anterior lateral area of the left ventricle. (See cath) Echo (EF%) pertinent findings: August 15, 2024. EF is 60%. No aortic stenosis noted. Heart catheterization pertinent findings: August 25, 2024. Severe right coronary artery stenosis with calcification and tortuosity. Moderate LAD disease and a subtotally old obtuse marginal vessel with preserved left ventricular systolic function. Patient has no angina. Recommendation is aggressive medical therapy. No intervention is required prior to carotid surgery. Recommendation Anesthesia Recommendation Anesthesia recommendation: OPTIMIZED for anesthesia
[2024-09-17] VITALS (28 sets, daily range): BP systolic 114–155; BP diastolic 40–84; PULSE 55–88; RESP 10–20; TEMP 36.2–36.8; O2SAT 80–98; BMI 23.1; BMI 24.0
--- OUTSIDE RECORDS SUMMARY | 2024-09-17 07:37 | XMS RPT_ITS | CCD ---
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 was given subcutaneously to right groin region with Lidocaine 2%. Local anesthetic was given subcutaneously to left groin region with Lidocaine 2%. Using a modified Seldinger technique, arterial access was obtained via the left femoral artery, a 5Fr sheath was inserted. Left Coronary Artery selective angiography was performed in multiple views using a 5 Fr. JL4 catheter. Right Coronary Artery selective angiography was then performed in multiple views using a 5 Fr. 3DRC (Lai) catheter.The arterial sheath was pulled and manual compression applied until hemostasis is achieved. CORONARY ANGIOGRAPHY DOMINANCE: Right Dominant LEFT HEART ASSESSMENT Left Ventricular Ejection Fraction: by Echo 65 % Normal LV wall motion Normal Left Ventricular systolic function LEFT MAIN: Mild calcification, Mild luminal irregularities LEFT ANTERIOR DESCENDING ARTERY: Moderate luminal irregularities up to 50% CIRCUMFLEX ARTERY: Ostial circumflex stenosis with 60% stenosis and the second obtuse marginal branch being subtotally occluded RIGHT CORONARY ARTERY: Dominant very calcified right coronary artery which is tortuous with proximal 70% stenosis mid 80% stenosis and then distal 50% stenosis COMPLICATIONS No Complications PROCEDURE MEDICATIONS Fentanyl 50 mcg IV Versed 1 mg IV Versed 1 mg IV Fentanyl 50 mcg IV Oxygen: 2 L/min via nasal cannula Aspirin (325mg) 1 Tabs PO @ 08/25/2024 09:40:16 SUMMARY OF HEMODYNAMIC DATA Time AIR REST ECG 09:42:27 AO 173/64 (103) SA 11:49:54 Signed By Kp Puentes MD On 08/25/2024 14:18:31 Kp Puentes MD 09/15/24 0947 Date Kp Puentes MD Cosigner Signature: Date (if indicated) CC: RAYO Baron; Dr. Kp Puentes MD Date Dictated: 08/25/24 1058 Date Transcribed: 08/25/24 1418 Ammonia Still Operator: CO Signed [facility] MR/Iva 09-05-2024 MR/FILIPE [facility] Medical Records Department [address] [address] PAT - Anesthesia 09/05/24 1301 MR#: [id number] Acct: [id number] Name: RAMONITA EL Rep #: [id number] : 1940 84 From: Aditya Diaz MD PCP: RAYO Pillai Status:PRE IN Y Race: C Location: [facility] Pre-Assessment Diagnosis/Proposed Procedure Planned Operative Procedure(s): (R) Right Carotid Endarterectomy Anesthesia History Anesthesia History - booking clerk: Anesthesia History - booking clerk Hx Hospitalization No 09/05/24 11:02 Any Problems With Anesthesia No 09/05/24 11:02 Cholinesterase deficiency No 09/05/24 11:02 You/Your Family Experience No 09/05/24 11:02 fever (hyperthermia) with Relationship Recent Exposure to Contagious No 12/08/20 05:51 Disease Does patient have nerve No 09/05/24 11:02 stimulator Patient instructed to have device shut off --Does patient have Pacemaker or ICD? When Was Last Pacemaker Check QUESTION #4 FULL TEXT: You/Your Family Experience fever (hyperthermia) with Anesthesia Last Oral Intake Last Oral intake: Last Oral Intake NPO since Meds taken in AM with sips of water? Meds patient instructed to take am of surgery PONV PONV - booking clerk: PONV - booking clerk Female No 09/05/24 11:02 HX of Motion Sickness No 09/05/24 11:02 HX of N/V After Surgery No 09/05/24 11:02 Non-Smoker No 09/05/24 11:02 Duration of Surgery greater Yes 09/05/24 11:02 than 60 minutes Number of Risk Factors 1 09/05/24 11:02 PONV Score Low Risk 09/05/24 11:02 Height Weight Height Weight: Anesthesia: Height Weight Height 5 ft 8 in 08/25/24 09:40 Respiratory Assessment Respiratory Assessment - booking clerk: Respiratory Tract Infection Hx - booking clerk Hx Respiratory Tract Infection No 09/05/24 11:02 STOP Sleep Apnea STOP Sleep Apnea - booking clerk: STOP Sleep Apnea - booking clerk Hx Hypertension Yes 09/05/24 11:02 Hx Sleep Apnea No 09/05/24 11:02 CPAP BIPAP Do you snore loudly (louder No 09/05/24 11:02 than talking or can be heard Do you often feel tired/ No 09/05/24 11:02 fatigued/ sleepy during daytime? Has anyone observed you stop No 09/05/24 11:02 breathing during sleep? STOP Results Negative 09/05/24 11:02 QUESTION #5 FULL TEXT : Do you snore loudly (louder than talking or can be heard through closed doors)? Tobacco Use History Tobacco Use History - booking clerk: Tobacco Use History - booking clerk Tobacco Use Smoking Status Heavy Smoker (>10/day) 09/05/24 11:02 Hx Tobacco Use No 09/05/24 11:02 Years Smoking 60 09/05/24 11:02 Packs Smoked per Day 1 09/05/24 11:02 Smoking Cessation Date was within the last 15 years Hx Smoking Cessation Date Hx Smoking Cessation No 09/05/24 11:02 Counseling Hematologic Medial History Hematologic Hx - booking clerk: Hematologic Medical Hx - spinner hand Hx of Blood Transfusion No 09/05/24 11:02 Hx of Transfusion in last 3 No 09/05/24 11:02 Months Date of Last Transfusion (if within last 3 months) Ever experience any problems No 09/05/24 11:02 with transfusion(s)? Specify any problems Hx of Preganancy in last 3 N/A 09/05/24 11:02 Months Nurse Filling Out Transfusion PazZOCORA 09/05/24 11:02 Questions: Date: 09/05/24 09/05/24 11:02 Time: 11:02 09/05/24 11:02 Patient unable to answer at this time (ie. 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 Normal [facility] MR/BMS.BVSon 09-03-2024 MR/BMS.BVS [facility] Vascular Surgery [address] [place], [place] [address] OFFICE VISIT Date of Service: 09/03/24 MR#: [id number] Acct: [id number] Name: RAMONITA EL Rep #: [id number] : 1940 Provider: Dr. Mello Demarco MD Age/Sex: 84/M Location: [facility] [place] Status: Signed Intake Vital Signs 08/25/24 09:40 09/03/24 15:40 Height 5 ft 8 in Weight: 152 lb 153 lb BP 137/67 H Blood Pressure Location Rt brachial Position Sitting Respiration 18 Pulse 75 Pulse Source Monitor Temp 98.7 F Temp Source Temporal Pulse Oximetry (%) 96 Oxygen Delivery Method room air Intake Visit Reasons: Discuss Surgery Chief Complaint: Left knee pain Is patient in pain?: Yes Allergies cilostazol (From Pletal) Allergy (Intermediate, Verified 09/03/24 15:40) PT UNSURE OF REACTION lisinopril Allergy (Intermediate, Verified 09/03/24 15:40) PT UNSURE OF REACTION Penicillins Allergy (Verified 09/03/24 15:40) Hives atorvastatin Adverse Reaction (Intermediate, Verified 09/03/24 15:40) myalgia pravastatin Adverse Reaction (Intermediate, Verified 09/03/24 15:40) myalgia Medications ???Medication ???Instructions ???Recorded ???Confirmed ???Type amlodipine 10 mg tablet 10 mg PO DAILY HYPERTENSION 09/03/24 History clopidogrel 75 mg tablet 75 mg PO DAILY BLOOD THINNER 05/0209/03/24 History tamsulosin 0.4 mg capsule (Flomax) 0.4 mg PO DAILY PROSTATE 7 09/03/24 History metoprolol tartrate 100 mg tablet 100 mg PO BID HTN 11/09/20 History pantoprazole 20 mg tablet,delayed 20 mg PO DAILY GERD 11/09/20/ History release (Protonix) acetaminophen 500 mg tablet 500 mg PO Q4H PRN pain 08/05/24 History (Tylenol Extra Strength) losartan 25 mg tablet 25 mg PO QDAY 09/03/24 09/03/24 Hi story Have you fallen in the past year?: No PFSH Medical History Wears glasses Alcohol use Easy bruising Smoker History of steroid therapy History of echocardiogram History of stress test Cardiology follow-up encounter Osteoarthritis of left knee Stenosis of right carotid artery Anxiety Lower extremity pain Carotid stenosis, right 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 Prostate disease Gastric reflux COPD (chronic obstructive pulmonary disease) 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) Encounter for pre-operative cardiovascular clearance Hypertrophy of prostate with urinary obstruction 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 Atherosclerosis of coronary artery without angina pectoris Essential hypertension Alcoholism Surgical History History of colonoscopy History of angioplasty of peripheral vessel (09/28/09) History of coronary artery stent placement (08/10/06) Family History Mother Cancer Brother Heart disease Social History Smoking Status: Heavy Smoker (>10/day) alcohol intake: current alcohol intake frequency: a few times a month substance use type: does not use HPI HPI HPI: RAMONITA EL, is a 84 M who presents to the office today for follow up discussion of asymptomatic right ICA stenosis. He has history of CAD and stress test as part of pre-op evaluation was abnormal. He underwent cardiac cath which revealed some degree of disease which was not amenable to percutaneous tx and was focal/moderate. D/W Dr. Puentes and Dr. Casiano who feel he is ad mildly increased but acceptable risk, particularly given that he is asymptomatic from cardiac standpoint. He denies numbness/weakness/vision loss/speech difficulty. ROS General General: Yes fatigue; No weight change, appetite, colon cancer, breast cancer or weakness HEENT HEENT: No difficulty swallowing, eye injury, eye surgery, swollen glands or hoarseness Endo Endocrine: No thyroid disease, diabetes mellitus, thyroid cancer, Hair loss, heat intolerance or cold intolerance Skin Skin: No rash or changing moles Musc Musculoskeletal: Yes arthritis; No back problems, rheumatoid arthritis, gout or joint pain Cardio Cardiovascular: Yes heart disease, high blood pressure, heart attack, heart stent, shortness of breath with exertion and chest pain; No murmur, pacemaker, atrial fibrillation or palpitations Psych Psychiatric: No depression, anxiety or hearing voices Resp Respiratory: Yes shortness of breath, Yes sleep apnea, No cough, Yes COPD, No asthma, No emphysema and No wheezing Gastro Gastrointestinal: No abdominal pain, No nausea or vomiting, No diarrhea, No constipation, No blood in stool, Yes acid reflux, No hemor (more content not included)... Normal [facility] Echocardiogram study reportO rdered By: Kp Puentes on 08-17-2024 Study report [facility] Cardiovascular Services [address] [place] [address] Echo Complete 08/15/24 0954 MR#: [id number] Acct: [id number] Name: RAMONITA EL Rep #:[id number] : 1940 84 From: Kp Self Attending Dr: Dr. Kp Puentes MD S tatus: REG CLI Ordering Dr: Kp Puentes MD Date: 12/30 Location: [facility] Sex: M C Admitted: Reason For Study Reason For Study: CAD/ASHD Procedure This was a 2D Doppler, Color Flow transthoracic echocardiogram. Exam performed in department. Left Ventricle Normal LV size. Moderate eccentric left ventricular hypertrophy. The left ventricular ejection fraction is 60 %. Stage 1 diastolic dysfunction. No regional wall motion abnormalities noted. Right Ventricle Normal RV size. Normal systolic function. Atria Normal left atrium. Normal right atrium. Mitral Valve Normal mitral valve. Tricuspid Valve Normal tricuspid valve. Aortic Valve Trisinus/trileaflet aortic valve. Mild focal aortic valve calcification. Pulmonic Valve Normal pulmonic valve. Great Vessels Normal aortic root. The pulmonary artery is normal size. Inferior vena cava collapse with respiration. Pericardium/Pleural No pericardial effusion. MMode/2D Measurements & Calculations LVIDd: 3.7 cm IVSd: 1.5 cm LVOT diam: 2.0 cm LVIDs: 2.4 cm LVPWd: 0.71 cm LVOT area: 3.1 cm2 FS: 36.4 % __ LAV(MOD-bp): 32.7 ml LVAd ap4: 29.4 cm2 SV(MOD-sp4): 47.9 ml LAV(MOD-bp) Indexed: 17.6 ml/m2 LVLd ap4: 8.9 cm SI(MOD-sp4): 25.8 ml/m2 LAV(MOD-sp2): 25.1 ml EDV(MOD-sp4): 79.9 ml LAV(MOD-sp4): 41.0 ml EDV(sp4-el): 82.5 ml LVAs ap4: 16.2 cm2 LVLs ap4: 7.0 cm ESV(MOD-sp4): 32.0 ml ESV(sp4-el): 31.9 ml EF(MOD-sp4): 60.0 % EF(sp4-el): 61.3 % SV(sp4-el): 50.6 ml LA A4 area: 16.3 cm2 RA A4 area: 11.2 cm2 Time Measurements MV dec time: 0.29 sec Doppler Measurements & Calculations MV E max lashonda: 68.9 cm/sec Lat Peak E' Lashonda: 9.6 cm/sec Med Peak E' Lashonda: 5.4 cm/sec MV A max lashonda: 103.8 cm/sec E/E' lat: 7.2 E/E' med: 12.8 MV E/A: 0.66 __ MV V2 max: 106.4 cm/sec LV V1 max: 100.9 cm/sec MV max P.5 mmHg MV dec slope: 235.2 cm/sec2 LV V1 max P.1 mmHg MV V2 mean: 48.6 cm/sec LV V1 mean P.3 mmHg MV mean P.2 mmHg LV V1 mean: 73.2 cm/sec MV V2 VTI: 25.5 cm LV V1 VTI: 24.5 cm MVA(VTI): 3.0 cm2 __ SV(LVOT): 75.5 ml PA V2 max: 111.6 cm/sec ECHO/Echo Complete Interpretation Summary Normal LV size. Moderate eccentric left ventricular hypertrophy. The left ventricular ejection fraction is 60 %. Stage 1 diastolic dysfunction. Mild focal aortic valve calcification. Ordering Physician: Kp Puentes Referring Physician: Kp Puentes Performed By: Lisa Olmedo and Student 08/17/24 1618 Date _ Kp Puentes MD CC: RAYO Baron; Dr. Kp Puentes MD ~ Date Dictated: 08/15/2454 Date Transcribed: 08/17/241617 Ammonia Still Operator: Signed [facility] Work Phone: Anion gap in Serum or Plasma Ordered By: Mello Demarco on 08-15-2024 Anion gap [Moles/Vol] 11 mmol/L -15 [facility] BUN/creatinine ratioOrdered By: Mello Demarco on 08-15-2024 Urea nitrogen/Creatinine [Mass ratio] 22.8 mg/mg High 10- [facility] Basic Metabolic Profile (BMP )on 08-15-2024 BUN/CRE 22.8 RATIO High 10- [facility] Comment on above: Performed By: #### L 100.0500, L500.2500, O84874-3, BTSPAT #### [facility] [address] [place], [address] Calcium [Mass/Vol] 9.4 mg/dL Normal 7.6-11.0 [facility] Comment on above: Performed By: #### L 100.0500, L500.2500, R62992-6, BTSPAT #### [facility] [address] [place], [address] Chloride [Moles/Vol] 101 mmol/L Normal 98-108 [facility] Comment on above: Performed By: #### L 100.0500, L500.2500, N57444-7, BTSPAT #### [facility] [address] [place], [address] CO2 [Moles/Vol] 23.8 mmol/L Normal 21.0-32.0 [facility] Comment on above: Performed By: #### L 100.0500, L500.2500, C26612-5, BTSPAT #### [facility] [address] [place], [address] Creatinine [Mass/Vol] 0.65 mg/dL Low 0.70-1.20 [facility] Comment on above: Performed By: #### L 100.0500, L500.2500, D92190-2, BTSPAT #### [facility] [address] [place], [address] GAP 11 Normal 5-15 [facility] Comment on above: Performed By: #### L 100.0500, L500.2500, C29342-2, BTSPAT #### [facility] [address] [place], [address] GFR/1.73 sq M.predicted among non-blacks MDRD (S/P/Bld) [Vol rate/Area] 94 mL/min/{1.73_m2} Normal >60 [facility] Comment on above: Result Comment: mL/m in/1.73m2 CKD-EPI Creatinine Equation (2020) Performed By: #### L 100.0500, L500.2500, D79797-7, BTSPAT #### [facility] [address] [place], [address] Glucose [Mass/Vol] 99 mg/dL Normal 70-99 [facility] Comment on above: Performed By: #### L 100.0500, L500.2500, S46376-9, BTSPAT #### [facility] [address] [place], [address] Potassium [Moles/Vol] 4.1 mmol/L Normal 3.3-5.1 [facility] Comment on above: Performed By: #### L 100.0500, L500.2500, H47624-5, BTSPAT #### [facility] [address] [place], [address] Sodium [Moles/Vol] 136 mmol/L Normal 133-145 [facility] Comment on above: Performed By: #### L 100.0500, L500.2500, S79803-7, BTSPAT #### [facility] [address] [place], [address] Urea nitrogen [Mass/Vol] 15 mg/dL Normal 4-19 [facility] Comment on above: Performed By: #### L 100.0500, L500.2500, O81460-0, BTSPAT #### [facility] [address] [place], [address] CBC-Complete Blood Cnt No Di ffon 08-15-2024 Erythrocyte distribution width (RBC) [Ratio] 13.0 % Normal 11.6-14.6 [facility] Comment on above: Performed By: #### L 100.0500, L500.2500, N36414-2, BTSPAT #### [facility] [address] [place], [address] Hematocrit (Bld) [Volume fraction] 47.1 % Normal 40-54 [facility] Comment on above: Performed By: #### L 100.0500, L500.2500, Y21605-3, BTSPAT #### [facility] [address] [place], [address] Hemoglobin (Bld) [Mass/Vol] 16.1 g/dL Normal 13.0-16.5 [facility] Comment on above: Performed By: #### L 100.0500, L500.2500, F88464-6, BTSPAT #### [facility] [address] [place], [address] MCH (RBC) [Entitic mass] 31.5 pg Normal 27.0-32.0 [facility] Comment on above: Performed By: #### L 100.0500, L500.2500, E51233-7, BTSPAT #### [facility] [address] [place], [address] MCHC (RBC) [Mass/Vol] 34.2 g/dL Normal 32-36 [facility] Comment on above: Performed By: #### L 100.0500, L500.2500, Z36090-2, BTSPAT #### [facility] [address] [place], [address] MCV (RBC) [Entitic vol] 92.2 fL Normal 80-94 [facility] Comment on above: Performed By: #### L 100.0500, L500.2500, B97164-8, BTSPAT #### [facility] [address] [place], [address] Platelet mean volume (Bld) [Entitic vol] 10.8 fL Normal 6.2-12.0 [facility] Comment on above: Performed By: #### L 100.0500, L500.2500, N91383-5, BTSPAT #### [facility] [address] [place], [address] Platelets (Bld) [#/Vol] 213 10*3/uL Normal 150-450 [facility] Comment on above: Performed By: #### L 100.0500, L500.2500, K85629-8, BTSPAT #### [facility] [address] [place], [address] RBC (Bld) [#/Vol] 5.11 10*6/uL Normal 4.6-6.[address] [facility] Comment on above: Performed By: #### L 100.0500, L500.2500, B20300-5, BTSPAT #### [facility] [address] [place], [address] RDW SD 43.6 fl Normal 35.1-43.9 [facility] Comment on above: Performed By: #### L 100.0500, L500.2500, R70411-4, BTSPAT #### [facility] [address] [place], [address] WBC (Bld) [#/Vol] 12.0 10*3/uL High 4.4-11.[address] [facility] Comment on above: Performed By: #### L 100.0500, L500.2500, Q34086-2, BTSPAT #### [facility] [address] [place], [address] Carbon dioxide, total [Moles /volume] in Central venous bloodOrdered By: Mello Demarco on 08-15-2024 CO2 [Moles/Vol] 23.8 mmol/L 21.0-32.0 [facility] Cardiovascular stress test r eportOrdered By: Charmaine Medina on 08-15-2024 Study report [facility] Cardi[facility] [address] [place] [address] MR#: [id number] Acct: [id number] Name: RAMONITA EL Rep #: [id number] : 1940 84 From: Charmaine Medina MD Primary Care: RAYO Pillai Status : REG CLI Referring Dr: Kp Puentes MD Sex: M C Stress Test Report Pharmacologic myocardial perfusion stress test. ? 84-year-old male with past medical history of hypertension, CAD with history of PCI to LAD, PAD, smoker and right carotid stenosis undergoing stress test as preoperative evaluation for cardiac clearance for right carotid endarterectomy Resting EKG demonstrates normal sinus with a rate of 68 bpm.??Resting blood pressure is 136/72 mmHg.??0.4 mg of regadenoson was infused per usual protocol followed by rapid intravenous saline flush injection.??Continuous EKG monitoringwas performed.??The maximum heart rate was 100 bpm which was 72% of max impactedheart rate the maximum workload was 1 metabolic equivalent.??At rest there were no ST or T wave changes noted to suggest ischemia and at peak infusion nonspecific ST changes were noted which did not meet the criteria for ischemia.?No clinical angina is noted.??The final blood pressure was 142/80 mmHg. Myocardial perfusion protocol. [11.2 ] mCi of technetium 99m sestamibi was injected at rest.??0.4 mg of regadenoson was infused per usual protocol.??At peak infusion [32.1] mCi of technetium 99m sestamibi was injected stress images were obtained stress and rest images were reconstructed and compared in the short axis vertical long and horizontal long axis.??Gated images were also obtained. ? Perfusion SPECT analysis: Review of the stress images demonstrate decreased uptake of tracer noted in inferior lateral and anterior lateral areas of the myocardium.??The resting images demonstrated decreased uptake of tracer noted in anterior lateral area of the myocardium.??Reversibility are noted to suggest lateral ischemia with previous nichol infarct iscehmia is noted. Small- medium sized area of stress-induced ischemia of the inferior lateral segment of the left ventricle and small to medium size area of myocardial infarction in the anterior lateral area of the of the LV ? Gated SPECT analysis: The gated ejection fraction is 56. Conclusion: Abnormal pharmacologic myocardial perfusion stress test. Small- medium sized area of stress-induced ischemia of the inferior lateral segment of the left ventricle and small to medium size area of myocardial infarction in the anterior lateral area of the of the LV Preserved ejection fraction. 08/15/24 1017 Date _ Charmaine Medina MD CC: RAYO Baron; Dr. Kp Puentes MD; Dr. Mello Demarco MD ~ Date Dictated: 08/15/24 1001 Date Transcribed: 08/15/24 1001 Ammonia Still Operator: JEANIE Signed [facility] Chloride assayOrdered By: Guille Demarco on 08-15-2024 Chloride [Moles/Vol] 101 mmol/L 98-108 [facility] Echo Completeon 08-15-2024 Echo Complete [facility] Services [address] [place] [address] Echo Complete 08/15/24 0954 MR#: [id number] Acct: [id number] Name: RAMONITA EL Rep #: [id number] : 1940 84 From: Kp Puentes MD Attending Dr: Dr. Kp Puentes MD Status: FELIPE COOMBS Ordering Dr: Kp Puentes MD Date: 08/15/24 Location: [facility] Sex: M C Admitted: Reason For Study Reason For Study: CAD/ASHD Procedure This was a 2D Doppler, Color Flow transthoracic echocardiogram. Exam performed in department. Left Ventricle Normal LV size. Moderate eccentric left ventricular hypertrophy. The left ventricular ejection fraction is 60 %. Stage 1 diastolic dysfunction. No regional wall motion abnormalities noted. Right Ventricle Normal RV size. Normal systolic function. Atria Normal left atrium. Normal right atrium. Mitral Valve Normal mitral valve. Tricuspid Valve Normal tricuspid valve. Aortic Valve Trisinus/trileaflet aortic valve. Mild focal aortic valve calcification. Pulmonic Valve Normal pulmonic valve. Great Vessels Normal aortic root. The pulmonary artery is normal size. Inferior vena cava collapse with respiration. Pericardium/Pleural No pericardial effusion. MMode/2D Measurements Calculations LVIDd: 3.7 cm IVSd: 1.5 cm LVOT diam: 2.0 cm LVIDs: 2.4 cm LVPWd: 0.71 cm LVOT area: 3.1 cm2 FS: 36.4 % LAV(MOD-bp): 32.7 ml LVAd ap4: 29.4 cm2 SV(MOD-sp4): 47.9 ml LAV(MOD-bp) Indexed: 17.6 ml/m2 LVLd ap4: 8.9 cm SI(MOD-sp4): 25.8 ml/m2 LAV(MOD-sp2): 25.1 ml EDV(MOD-sp4): 79.9 ml LAV(MOD-sp4): 41.0 ml EDV(sp4-el): 82.5 ml LVAs ap4: 16.2 cm2 LVLs ap4: 7.0 cm ESV(MOD-sp4): 32.0 ml ESV(sp4-el): 31.9 ml EF(MOD-sp4): 60.0 % EF(sp4-el): 61.3 % SV(sp4-el): 50.6 ml LA A4 area: 16.3 cm2 RA A4 area: 11.2 cm2 Time Measurements MV dec time: 0.29 sec Doppler Measurements Calculations MV E max lashonda: 68.9 cm/sec Lat Peak E' Lashonda: 9.6 cm/sec Med Peak E' Lashonda: 5.4 cm/sec MV A max lashonda: 103.8 cm/sec E/E' lat: 7.2 E/E' med: 12.8 MV E/A: 0.66 MV V2 max: 106.4 cm/sec LV V1 max: 100.9 cm/sec MV max P.5 mmHg MV dec slope: 235.2 cm/sec2 LV V1 max P.1 mmHg MV V2 mean: 48.6 cm/sec LV V1 mean P.3 mmHg MV mean P.2 mmHg LV V1 mean: 73.2 cm/sec MV V2 VTI: 25.5 cm LV V1 VTI: 24.5 cm MVA(VTI): 3.0 cm2 SV(LVOT): 75.5 ml PA V2 max: 111.6 cm/sec ECHO/Echo Complete Interpretation Summary Normal LV size. Moderate eccentric left ventricular hypertrophy. The left ventricular ejection fraction is 60 %. Stage 1 diastolic dysfunction. Mild focal aortic valve calcification. Ordering Physician: Kp Puentes Referring Physician: Kp Puentes Performed By: Lisa Olmedo and Student 08/17/24 1618 Date Kp Puentes MD CC: RAYO Baron; Dr. Kp Puentes MD Date Dictated: 08/15/24 0954 Date Transcribed: 08/17/241617 Ammonia Still Operator: Signed Normal [facility] Erythrocyte distribution wid th ratioOrdered By: Mello Demarco on 08-15-2024 Erythrocyte distribution width (RBC) [Ratio] 13.0 % 11.6-14.6 [facility] Erythrocyte distribution wid th standard deviationOrdered By: Mello Demarco on 08-15-2024 Erythrocyte distribution width (RBC) [Ratio] 43.6 fl 35.1-43.9 [facility] Glomerular filtration rate ( GFR) estimation/1.73 sq m using serum, plasma, or whole bOrdered By: Mello Demarco on 08-15-2024 GFR/1.73 sq M.predicted among non-blacks MDRD (S/P/Bld) [Vol rate/Area] 94 mL/min/{1.73_m2} >60 [facility] Comment on above: mL/min/1.73m2 CKD-EP I Creatinine Equation (2020) Hematocrit Auto (Bld) [Volum e fraction]Ordered By: Mello Demarco on 08-15-2024 Hematocrit (Bld) [Volume fraction] 47.1 % 40-54 [facility] Hemoglobin measurementOrdere d By: Mello Demarco on 08-15-2024 Hemoglobin (Bld) [Mass/Vol] 16.1 g/dL 13.0-16.5 [facility] MCV (mean corpuscular volume ) determinationOrdered By: Mello Demarco on 08-15-2024 MCV (RBC) [Entitic vol] 92.2 fL 80-94 [facility] MR/PAT.ANEon 08-15-2024 MR/PAT.ANE [facility] Medical Records Department [address] [place] [address] PAT - Anesthesia 08/15/24 1433 MR#: [id number] Acct: [id number] Name: RAMONITA EL Rep #: [id number] : 1940 84 From: Owen Davidson MD PCP: RAYO Pillai Status:PRE IN Y Race: C Location: [facility] Pre-Assessment Diagnosis/Proposed Procedure Planned Operative Procedure(s): RT CAROTID ENDARTERECTOMY Anesthesia History Anesthesia History - booking clerk: Anesthesia History - booking clerk Hx Hospitalization No 08/05/24 13:09 Any Problems With Anesthesia No 08/05/24 13:09 Cholinesterase deficiency No 08/05/24 13:09 You/Your Family Experience No 08/05/24 13:09 fever (hyperthermia) with Relationship Recent Exposure to Contagious No 12/08/20 05:51 Disease Does patient have nerve No 08/05/24 13:09 stimulator Patient instructed to have device shut off --Does patient have Pacemaker or ICD? When Was Last Pacemaker Check QUESTION #4 FULL TEXT: You/Your Family Experience fever (hyperthermia) with Anesthesia Last Oral Intake Last Oral intake: Last Oral Intake NPO since Meds taken in AM with sips of water? Meds patient instructed to take am of surgery PONV PONV - booking clerk: PONV - booking clerk Female No 08/05/24 13:09 HX of Motion Sickness No 08/05/24 13:09 HX of N/V After Surgery No 08/05/24 13:09 Non-Smoker No 08/05/24 13:09 Duration of Surgery greater Yes 08/05/24 13:09 than 60 minutes Number of Risk Factors 1 08/05/24 13:09 PONV Score Low Risk 08/05/24 13:09 Height Weight Height Weight: Anesthesia: Height Weight Height 5 ft 8 in 08/04/24 13:45 Respiratory Assessment Respiratory Assessment - booking clerk: Respiratory Tract Infection Hx - booking clerk Hx Respiratory Tract Infection No 08/05/24 13:09 STOP Sleep Apnea STOP Sleep Apnea - booking clerk: STOP Sleep Apnea - booking clerk Hx Hypertension Yes 08/05/24 13:09 Hx Sleep Apnea No 08/05/24 13:09 CPAP BIPAP Do you snore loudly (louder No 08/05/24 13:09 than talking or can be heard Do you often feel tired/ No 08/05/24 13:09 fatigued/ sleepy during daytime? Has anyone observed you stop No 08/05/24 13:09 breathing during sleep? STOP Results Negative 08/05/24 13:09 QUESTION #5 FULL TEXT : Do you snore loudly (louder than talking or can be heard through closed doors)? Tobacco Use History Tobacco Use History - booking clerk: Tobacco Use History - booking clerk Tobacco Use Smoking Status Current every day smoker 08/05/24 13:09 Hx Tobacco Use No 08/05/24 13:09 Years Smoking Packs Smoked per Day Smoking Cessation Date was within the last 15 years Hx Smoking Cessation Date Hx Smoking Cessation Counseling Hematologic Medial History Hematologic Hx - booking clerk: Hematologic Medical Hx - spinner hand Hx of Blood Transfusion No 08/05/24 13:09 Hx of Transfusion in last 3 No 08/05/24 13:09 Months Date of Last Transfusion (if within last 3 months) Ever experience any problems No 08/05/24 13:09 with transfusion(s)? Specify any problems Hx of Preganancy in last 3 N/A 08/05/24 13:09 Months Nurse Filling Out Transfusion CRISTAL 08/05/24 13:09 Questions: Date: 08/05/24 08/05/24 13:09 Time: 13:22 08/05/24 13:09 Patient unable to answer at this time (ie. confused, unrespo /Reproduction History /Reproductive History - booking clerk: /Reproductive Hx- booking clerk Hx Now No 08/05/24 13:09 Gestational Age (in weeks): EDC: Hx Hx Para Hx Section SAB No 08/05/24 13:09 Active Medications Active Medications: Current Medications Generic Name Dose Route Start Last Admin Trade Name Freq PRN Reason Stop Dose Admin Clindamycin Phosphate 900 mg in 50 mls @ 75 mls/hr 08/18/24 07:30 Cleocin IV 08/18/24 08:09 INTRAOP ONE [facility] Medical History (Updated 08/06/24 @ 00:01 by Background Dakarstenon) Wears glasses Alcohol use Easy bruising Smoker History of steroid therapy History of echocardiogram History of stress test Cardiology follow-up encounter Osteoarthritis of left knee Stenosis of right carotid artery Anxiety Lower extremity pain Carotid stenosis, right 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 Prostate disease Gastric reflux COPD (chronic obstructive pulmonary disease) 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 Normal [facility] Mean corpuscular hemoglobin (MCH) determinationOrdered By: Mello Demarco on 08-15-2024 MCH (RBC) [Entitic mass] 31.5 pg 27.0-32.0 [facility] Mean corpuscular hemoglobin concentration (MCHC) determinationOrdered By: Mello Demarco on 08-15-2024 MCHC (RBC) [Mass/Vol] 34.2 g/dL 32-36 [facility] Mean platelet volume determi nationOrdered By: Mello Demarco on 08-15-2024 Platelet mean volume (Bld) [Entitic vol] 10.8 fL 6.2-12.0 [facility] Platelet countOrdered By: Guille Demarco on 08-15-2024 Platelets (Bld) [#/Vol] 213 10*3/uL 150-450 [facility] Potassium measurement (mass/ volume)Ordered By: Mello Demarco on 08-15-2024 Potassium (Unsp spec) [Mass/Vol] 4.1 mmol/L 3.3-5.1 [facility] RBC Auto (Bld) [#/Vol]Ordere d By: Mello Demarco on 08-15-2024 RBC (Bld) [#/Vol] 5.11 10*6/uL 4.6-6.[address] [facility] Serum creatinine measurement (mass/volume)Ordered By: Mello Demarco on 08-15-2024 Creatinine [Mass/Vol] 0.65 mg/dL Low 0.70-1.20 [facility] Serum glucose measurement (m ass/volume)Ordered By: Mellorachael Demarco on 08-15-2024 Glucose [Mass/Vol] 99 mg/dL 70-99 [facility] Serum or plasma calcium heather urement (mass/volume)Ordered By: Mello Demarco on 08-15-2024 Calcium [Mass/Vol] 9.4 mg/dL 7.6-11.0 [facility] Serum or plasma urea nitroge n measurement (mass/volume)Ordered By: Mellorachael Demarco on 08-15-2024 Urea nitrogen [Mass/Vol] 15 mg/dL 4-19 [facility] Sodium levelOrdered By: Mellorachael Demarco on 08-15-2024 Sodium [Moles/Vol] 136 mmol/L 133-145 [facility] Stress Reporton 08-15-2024 Stress Report [facility] [address] [place] [address] MR#: [id number] Acct: [id number] Name: RAMONITA EL Rep #: [id number] : 1940 84 From: Charmaine Medina MD Primary Care: RAYO Pillai Status: REG CLI Referring Dr: Kp Puentes MD Sex: M C Stress Test Report Pharmacologic myocardial perfusion stress test. ??? 84-year-old male with past medical history of hypertension, CAD with history of PCI to LAD, PAD, smoker and right carotid stenosis undergoing stress test as preoperative evaluation for cardiac clearance for right carotid endarterectomy Resting EKG demonstrates normal sinus with a rate of 68 bpm.?Resting blood pressure is 136/72 mmHg.?0.4 mg of regadenoson was infused per usual protocol followed by rapid intravenous saline flush injection.?Continuous EKG monitoring was performed.?The maximum heart rate was 100 bpm which was 72% of max impacted heart rate the maximum workload was 1 metabolic equivalent.?At rest there were no ST or T wave changes noted to suggest ischemia and at peak infusion nonspecific ST changes were noted which did not meet the criteria for ischemia.?No clinical angina is noted.?The final blood pressure was 142/80 mmHg. Myocardial perfusion protocol. [11.2 ] mCi of technetium 99m sestamibi was injected at rest.?0.4 mg of regadenoson was infused per usual protocol.?At peak infusion [32.1] mCi of technetium 99m sestamibi was injected stress images were obtained stress and rest images were reconstructed and compared in the short axis vertical long and horizontal long axis.?Gated images were also obtained. ??? Perfusion SPECT analysis: Review of the stress images demonstrate decreased uptake of tracer noted in inferior lateral and anterior lateral areas of the myocardium.?The resting images demonstrated decreased uptake of tracer noted in anterior lateral area of the myocardium.?Reversibi lity are noted to suggest lateral ischemia with previous nichol infarct iscehmia is noted. Small- medium sized area of stress-induced ischemia of the inferior lateral segment of the left ventricle and small to medium size area of myocardial infarction in the anterior lateral area of the of the LV ??? Gated SPECT analysis: The gated ejection fraction is 56. Conclusion: Abnormal pharmacologic myocardial perfusion stress test. Small- medium sized area of stress-induced ischemia of the inferior lateral segment of the left ventricle and small to medium size area of myocardial infarction in the anterior lateral area of the of the LV Preserved ejection fraction. 08/15/24 1017 Date Charmaine Medina MD CC: RAYO Baron; Dr. Kp Puentes MD; Dr. Mello Demarco MD Date Dictated: 08/15/241000 Date Transcribed: 08/15/241000 Ammonia Still Operator: AJ Signed Normal [facility] Type AND Screen - PAT ONLYon 08-15-2024 Ab SCREEN GEL TNP Normal [facility] Comment on above: Order Comment: Surge ry Date: 08/18/24 Reason for Laboratory Test PREOP [id number] No N N S CAROTID ENARTERECTOMY Result Comment: AMENDED REPORT 08/15/24 1129: Antibody Screen previously reported as: POSITIVE Performed By: #### L 100.0500, L500.2500, Y22126-2, BTSPAT #### [facility] [address] [place], [address] White blood cell (WBC) count Ordered By: Mello Demarco on 08-15-2024 WBC (Bld) [#/Vol] 12.0 10*3/uL High 4.4-11.[address] [facility] CNPNon [facility]-05-20[facility] RAMONITA EL ([id number]) 1940 M NFR Date Time Provider Department 08/05/24 KARLA BARON During your visit today, we recorded the following information about you: Ching Mata LPN 08/05/2024 2:17 PM Signed Lolly from [facility] calling she had called the patient in preparation for his Carotid Endarterectomy for later this month. Patient told him her had his large toenails removed 08/04 by provider [facility] and he is taking tylenol for pain. She said he told her I take 500 mg one tablet every hour or two. She explained not to take that many, only could have 8 tablets in a day. She has called [facility] and left a message concerning this. She said he takes plavix so did not want him taking to much tylenol. She said he was recently see [facility] so he was cleared per that office for surgery. Asking if he needs something for pain can MANAGER FORENSIC advise, she said he lives alone and needs some guidance on his medications. Karla Baron APRN.MARK 08/05/2024 3:14 PM Signed Agree that he should only be taking no more than 8 tylenol a day. If the pain is related to the foot, then that really needs to be addressed by the accounts receivable clerk that did the procedure. He is also following with pain management Dr Fitzgerald and being prescribed gabapentin and tramadol. Heavenly Valdes LPN 08/05/2024 3:59 PM Signed Unable to return call to [place] at [facility] d/t no number listed. Phoned pt, notified of provider response. He states he stopped seeing Dr. Fitzgerald because the gabapentin and tramadol were not helpful. He states he saw Ortho and received an injection in his L knee and that has been very helpful. He plans to continue to follow up with Ortho. YEIMI Negron Christy, APRN.CNP 08/05/2024 4:40 PM Signed Noted. Karla Baron APRN.CNP Allergies As of Date: 08/05/2024 Noted Allergy Reaction DUST MITES 12/13/2006 LIPITOR (ATORVASTATIN) 12/04/2007 Comments: myalgia LISINOPRIL 12/04/2007 Comments: cough PENICILLINS 10/14/2004 4 - Hives PLETAL (CILOSTAZOL) 09/04/2019 14 - Other: See Comments Comments: chest pain PRAVASTATIN 05/10/2015 17 - Myalgia Date Reviewed: 06/24/2024 Reviewed by: Heavenly Valdes LPN - Fully Assessed Reason for Visit: Patient Update [1234] Prescriptions as of 08/05/2024 - gabapentin (NEURONTIN) 300 mg capsule Take 300 mg by mouth two times a day. DR. FITZGERALD - traMADol (ULTRAM) 50 mg tablet Take 50 mg by mouth two times a day as needed. DR. 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 Normal [facility] Orthopedic Visit Reporton Orthopedic Visit Report [facility] [address] [place] [address] OFFICE VISIT Date of Service: 08/04/24 MR#: [id number] Acct: [id number] Name: RAMONITA EL Rep #: [id number] : 1940 Provider: Dr. Akira araujo MD Age/Sex: 84/M Location: [facility] Status: Signed with Addenda ADDENDUM by NATE Mendoza on 08/04/24 at 1432 Office Procedure Documentation entered by Jeremy Mendoza MA 08/04/24 14:32: Ortho Injections Injections Yes Knee Left Is this a patient provided medication?: No Details: Obtained consent for injection. Under sterile conditions, injected the patients left knee with 2cc Kenalog, 4cc Bupivacaine. The patient tolerated the injection well without any noted complication. Patient should call our office if redness develops, pain worsens or if they have any concerns. Office Meds Kenalog 40 mg/mL suspension for injection Performing Provider: Akira Negrete MD Performing Location: [facility] Administered by: Akira Negrete MD on 08/04/24 14:30 Dose Route Admin Location Dispensed Lot Number Expiration Date WADel Griffiths ufacturer 40 mg intra-articular Left knee 1 mL [id number] 09/05/26 9891-0004-06 [employer] [facility] Date cc: * Signed Intake Vital Signs 07/29/24 06:16 07/30/24 13:20 08/04/24 13:45 Height 5 ft 8 in 5 ft 8 in 5 ft 8 in Weight: 152 lb 158 lb 6 oz BMI 23.1 24.0 BP 171/76 H Blood Pressure Location Lt brachial Position Sitting Respiration 16 Pulse 76 Pulse Source Monitor Intake Visit Reasons: LEFT KNEE PAIN Chief Complaint: Left knee pain Accompanied by: Self Is patient in pain?: Yes Pain scale (1-10): 5 Allergies cilostazol (From Pletal) Allergy (Intermediate, Verified 08/04/24 13:49) PT UNSURE OF REACTION lisinopril Allergy (Intermediate, Verified 08/04/24 13:49) PT UNSURE OF REACTION Penicillins Allergy (Verified 08/04/24 13:49) Hives atorvastatin Adverse Reaction (Intermediate, Verified 08/04/24 13:49) myalgia pravastatin Adverse Reaction (Intermediate, Verified 08/04/24 13:49) myalgia Medications ???Medication ???Instructions ???Recorded ???Confirmed ???Type amlodipine 10 mg tablet 10 mg PO DAILY 05/02/16 08/04/24 H istory clopidogrel 75 mg tablet 75 mg PO DAILY 05/02/16 08/04/24 H istory tamsulosin 0.4 mg capsule (Flomax) 0.4 mg PO DAILY 05/02/16 5 History metoprolol tartrate 100 mg tablet 100 mg PO BID 11/09/20 08/04/24 H istory pantoprazole 20 mg tablet,delayed 20 mg PO DAILY 11/09/20 08/04/24 History release (Protonix) losartan 25 mg tablet 25 mg PO QDAY 07/17/24 08/04/24 Hi story Have you fallen in the past year?: No PFSH Medical History Osteoarthritis of left knee Stenosis of right carotid artery Anxiety Lower extremity pain Carotid stenosis, right 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 Prostate disease Gastric reflux COPD (chronic obstructive pulmonary disease) 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) Encounter for pre-operative cardiovascular clearance Hypertrophy of prostate with urinary obstruction 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 Atherosclerosis of coronary artery without angina pectoris Essential hypertension Alcoholism Surgical History History of angioplasty of peripheral vessel (09/28/09) History of coronary artery stent placement (08/10/06) Family History Mother Cancer Brother Heart disease Social History Smoking Status: Heavy Smoker (>10/day) alcohol intake: current alcohol intake frequency: a few times a month substance use type: does not use HPI LEFT KNEE PAIN Details: This documentation accurately reflects the service provided and the decisions made by me, Dr. Akira Negrete MD 08/04/24 0901. Part of today???s visit was documented by [ ], acting as scribe. RAMONITA EL is a 84 year old M here today for 6 days FU L knee pain, from ED referral. spontaneous. 6 weeks. pain medication helped. 5/10 pain today. Patient has not had previous physical therapy or injections no prior surgeries on the knee. Most of the pain is posteriorly. per ED notes 3 weeks of gradual onset worsening left knee pain. He says it hurts to move and hurts to walk but he is able to do both. He denies any systemic symptoms such as fevers or chills. He denies any redness or warmth or swelling. He cannot remember any injury. He mostly feels discomfort in the popliteal space. No sig (more content not included)... Normal [facility] Cardiology Visit Reporton Cardiology Visit Report [facility] [address] [place] [address] OFFICE VISIT Date of Service: 07/30/24 MR#: [id number] Acct: [id number] Name: RAMONITA EL Rep #: [id number] : 1940 Provider: Dr. Kp Puentes MD Age/Sex: 84/M Location: [facility] Status: Signed HPI HPI History of Present Illness Details: 84-year-old man with a history of known coronary artery disease. He was last seen by me in 2020. He had had a previous anterior myocardial infarction in 2006. He had a drug-eluting stent placed to the same vessel. He also had thanks left femoral renal endarterectomy in addition to his hypertension and tobacco use. His last echocardiogram in 2015 demonstrated preserved ejection fraction of 61%. He has most recently been diagnosed with a right carotid bruit and significant stenosis with a CTA of his neck as well as an abdominal aortic aneurysm measuring 3.1 x 3.1 cm. He does have severe peripheral arterial insufficiency with a right STACEY of 0.41 and a left STACEY of 0.7. He is here for preoperative cardiac evaluation. He denies any chest pain or shortness of breath or paroxysmal nocturnal dyspnea or pedal edema he appears on decent medical therapy. His most recent lipid profile demonstrated total cholesterol 217 HDL of 39 LDL of 150. Intake Vital Signs 05/18/24 05:24 07/29/24 06:16 07/30/24 13:20 07/30/24 13:33 Height 5 ft 8 in 5 ft 8 in 5 ft 8 in Weight: 152 lb BMI 23.1 BP 171/76 H 147/75 H Blood Pressure Location Lt brachial Rt brachial Position Sitting Sitting Respiration 16 Pulse 76 Pulse Source Monitor Intake Visit Reasons: Surgical Clearance/Re-est (Nilam) Mysql Dba Required: No Accompanied by: Self Is patient in pain?: No Allergies cilostazol (From Pletal) Allergy (Intermediate, Verified 07/30/24 13:26) PT UNSURE OF REACTION lisinopril Allergy (Intermediate, Verified 07/30/24 13:26) PT UNSURE OF REACTION Penicillins Allergy (Verified 07/30/24 13:26) Hives atorvastatin Adverse Reaction (Intermediate, Verified 07/30/24 13:26) myalgia pravastatin Adverse Reaction (Intermediate, Verified 07/30/24 13:26) myalgia Medications ???Medication ???Instructions ???Recorded ???Confirmed ???Type amlodipine 10 mg tablet 10 mg PO DAILY 05/02/16 07/30/24 H istory clopidogrel 75 mg tablet 75 mg PO DAILY 05/02/16 07/30/24 H istory tamsulosin 0.4 mg capsule (Flomax) 0.4 mg PO DAILY 05/02/16 5 History metoprolol tartrate 100 mg tablet 100 mg PO BID 11/09/20 07/30/24 H istory pantoprazole 20 mg tablet,delayed 20 mg PO DAILY 11/09/20 07/30/24 History release (Protonix) losartan 25 mg tablet 25 mg PO QDAY 07/17/24 07/30/24 Hi story Have you fallen in the past year?: No PFSH Medical History Stenosis of right carotid artery Anxiety Lower extremity pain Carotid stenosis, right 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 Prostate disease Gastric reflux COPD (chronic obstructive pulmonary disease) 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) Encounter for pre-operative cardiovascular clearance Hypertrophy of prostate with urinary obstruction 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 Atherosclerosis of coronary artery without angina pectoris Essential hypertension Alcoholism Surgical History History of angioplasty of peripheral vessel (09/28/09) History of coronary artery stent placement (08/10/06) Family History Mother Cancer Brother Heart disease Social History Smoking Status: Heavy Smoker (>10/day) alcohol intake: current alcohol intake frequency: a few times a month substance use type: does not use ROS Const Const: Positive for fatigue and weakness; Negative for headache(s), daytime sleepiness or difficulty sleeping ENT ENT: Negative for headache(s), dizziness or Nosebleed/epistaxis Cardio Chest Pain: No Palpitations: No Edema: None Resp Respiratory: Positive for SOB with activity; Negative for SOB at rest, SOB orthopnea SOB lying down or Cough GI GI: Negative nausea, vomiting or heartburn Neuro Neuro: Positive for weakness; Negative for dizziness, lightheadedness, near syncope or headache(s) Endo Endo: Positive for fatigue Cardiology Exam Const Appearance: cooperative, healthy appearing, no acute distress, well developed and well groomed Nutritional Appearance: average body habitus and well nourished Orientation: alert, awake and oriented x3 Head Head: normal to inspection, normocephalic and atraumatic Ears: hearing grossly normal bilaterally and external ears normal Nose (more content not included)... Normal [facility] Emergency Department Summary on 07-29-2024 Emergency Department Summary [facility] Medical Records Department [address] [place] [address] Emergency Department Summary 07/29/24 MR#: [id number] Acct: [id number] Name: RAMONITA EL Rep #: [id number] : 1940 84 From: Nilesh Mccullough MD PCP: RAYO Pillai Status:REG ER Location: ED HPI History of Present Illness Chief Complaint: Lower Extremity Injury Informant: patient Narrative Narrative: 84-year-old male presenting with about 3 weeks of gradual onset worsening left knee pain. He says it hurts to move and hurts to walk but he is able to do both. He denies any systemic symptoms such as fevers or chills. He denies any redness or warmth or swelling. He cannot remember any injury. He mostly feels discomfort in the popliteal space. No significant calf pain with this but he does get bilateral calf and thigh pain with exertion, maybe 100 feet or so, he states that is been going on for years and unchanged. He is scheduled for vascular surgery on his carotid with Dr. Demarco a couple weeks from now. He takes clopidogrel. No history of DVT or PE, and he has not been immobilized recently or hospitalized or had any recent surgeries. 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) Encounter for pre-operative cardiovascular clearance Hypertrophy of prostate with urinary obstruction 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 Atherosclerosis of coronary artery without angina pectoris Essential hypertension Alcoholism Home Medications ???Medication ???Instructions ???Recorded ???Last Taken ???Type amlodipine 10 mg tablet 10 mg PO DAILY 05/02/16 12/08/20 0 4:00 History clopidogrel 75 mg tablet 75 mg PO DAILY 05/02/16 11/30/20 H istory tamsulosin 0.4 mg capsule (Flomax) 0.4 mg PO DAILY 05/02/16 1 History metoprolol tartrate 100 mg tablet 100 mg PO BID 11/09/20 12/08/20 0 4:00 History pantoprazole 20 mg tablet,delayed 20 mg PO DAILY 11/09/20 12/07/20 History release (Protonix) gabapentin 300 mg capsule 300 mg PO TID 07/17/24 Unknown His tory losartan 25 mg tablet 25 mg PO QDAY 07/17/24 Unknown His tory finasteride 5 mg tablet 5 mg PO QDAY 07/25/24 Unknown Hist ory hydroxyzine HCl 25 mg tablet 25 mg PO TID PRN 07/25/24 Unknown History tizanidine 4 mg tablet 4 mg PO QHS PRN 07/25/24 Unknown H istory tramadol 50 mg tablet 50 mg PO BID PRN 07/25/24 Unknown History prednisone 20 mg tablet 40 mg (2 x 20 mg) PO DAILY 6 days 07/29/24 Unknown Rx #12 tabs Allergy/AdvReac Type Severity Reaction Status Date / Time cilostazol (From Pletal) Allergy Intermediate PT UNSURE Verified 07/29/24 06:15 OF REACTION lisinopril Allergy Intermediate PT UNSURE Verified 07/29/24 06:15 OF REACTION Penicillins Allergy Hives Verified 07/29/24 06:15 atorvastatin AdvReac Intermediate myalgia Verified 07/29/24 06:15 pravastatin AdvReac Intermediate myalgia Verified 07/29/24 06:15 Family History Mother Cancer Brother Heart disease Surgical History History of angioplasty of peripheral vessel (09/28/09) History of coronary artery stent placement (08/10/06) Social History Smoking Status: Heavy Smoker (>10/day) alcohol intake: current alcohol intake frequency: a few times a month substance use type: does not use ROS ROS ED Constitutional Constitutional ED: Denies chills or fever(s) Cardiovascular Cardiovascular: Denies leg edema or orthopnea Respiratory/Chest Respiratory/Chest: Denies orthopnea Musculoskeletal Musculoskeletal: Reports extremity pain and other Details: Claudication see HPI ; Denies neck pain Integumentary Denies Abrasions, rash or wounds Neurologic Neurologic: Denies paresthesias or weakness EXAM Physical Exam Const Vital Signs: 07/29/24 06:16 Temperature 97.7 F L Temperature Source Oral Pulse Rate 62 Respiratory Rate 18 Blood Pressure 154/61 H Blood Pressure Mean 92 Pulse Ox 98 Oxygen Delivery Method Room Air Positive well nourished and well developed General Appearance ED: well developed and NAD HEENT normocephalic and atraumatic Neck full ROM and supple Resp normal respiratory effort Back/Spine normal ROM and normal to inspection Extremity Extremity Narrative: Left knee is normal on inspection. There is no effusion. There is no bony tenderness. He can range and a (more content not included)... Normal [facility] Knee 4 or More Viewson 07-29 Knee 4 or More Views [facility] Imaging Services [address] [place] [address] Knee 4 or More Views MR#: [id number] Acct: [id number] Name: RAMONITA EL Rep #: [id number] : 1940 M 84 From: Jabari Alexandra MD PCP: RAYO Pillai Status: PRE ER Study: Knee 4 or More Views Date of Exam: 07/29/24 Exam# [id number] Ordering Dr: Nilesh Mccullough MD PROCEDURE: KNEE 4 OR MORE VIEWS 07/29/2024 REASON FOR EXAM: PAIN TECHNIQUE: KNEE 4 OR MORE VIEWS COMPARISON: None FINDINGS: There is no fracture or dislocation. There is minimal spurring at the medial tibial plateau and superior patellar articular surface. There is a small visible joint effusion. Osteopenia is noted. Vascular calcifications are present. RAD/Knee 4 or More Views IMPRESSION: There is no fracture or dislocation. There is a small visible joint effusion. Reading Location: [facility] CC: RAYO Baron; Dr. Nilesh Mccullough MD Ammonia Still Operator: Signed [facility] Lumbar Spine 2 or 3 Viewson 07-24-2024 Lumbar Spine 2 or 3 Views [facility] Imaging Services [address] [place], [place] [id number] Lumbar Spine 2 or 3 Views MR#: [id number] Acct: [id number] Name: RAMONITA EL Rep #: [id number] : 1940 M 84 From: Jesus chandra MD PCP: RAYO Pillai Status: REG CLI Study: Lumbar Spine 2 or 3 Views Date of Exam: Exam# [id number] Ordering Dr: Chandni Fitzgerald MD PROCEDURE: LUMBAR [...] lordosis. S shaped degenerative scoliosis. Reading Location: [facility] CC: RAYO Baron; Dr. Chandni Fitzgerald MD Ammonia Still Operator: Signed [facility] MR/BMS.BVSon 07-17-2024 MR/BMS.BVS [facility] Vascular Surgery [address] [place] [address]. [address] [place] [address] OFFICE VISIT Date of Service: 07/17/24 MR#: [id number] Acct: [id number] Name: RAMONITA EL Rep #: [id number] : 1940 Provider: Dr. Mello Demarco MD Age/Sex: 84/M Location: [facility] Status: Signed Intake Vital Signs 05/18/24 05:24 [...] appearing, co (more content not included)... Normal [facility] CTA Head AND Neck W/ Contras ton 07-03-2024 CTA Head AND Neck W/ Contrast [facility] Imaging Services [address] [place] [address] CTA Head AND Neck W/ Contrast MR#: [id number] Acct: [id number] Name: RAMONITA EL Rep #: [id number] : 1940 M 84 From: Parth priest MD PCP: RAYO Pillai Status: REG CLI Study: CTA Head AND Neck W/ Contrast Date of Exam: Exam# [id number] Ordering Dr: Sammie Strong PROCEDURE: CTA HEAD [...] Calcific plaques. LEFT Vertebral: Calcific plaques. Anatomy: [place] anatomy is normal. Aneurysm or [...] involving both internal carotid arteries. Reading Location: [id number] CC: RAYO Baron; KRISTI Garza Ammonia Still Operator: Wade Iqbal [facility] CNOVon 06-24-2024 [facility] Office Visit (FAMPWS ) -- RAMONITA EL ([id number]) 1940 M NFR Date Time Provider Department 06/24/24 11:00 AM KARLA BARON During your visit today, we recorded the following information about you: Pulse Respiration Blood pressure 55/minute 16/minute 148/62 Karla Baron APRN.[facility] 06/24/2024 11:38 AM Signed - Continue taking [...] have new or worsening symptoms. Karla Baron APRN.[employer]EL ASSISTANT GENERAL MANAGER 06/24/2024 10:08 PM Signed This is a [...] gesture Radius fracture 06/21/[address] [facility] Tobacco abuse 05/22/2013 Urinary calculus, unspecified 01/05 [...] 1 tab (more content not included)... Normal [facility] Arterial study reportOrdered By: Mello Demarco on 06-05-2024 Noninvasive arteriosclerosis study report [facility] Cardiovascular Services [address] [place] [address] Lower Ext Art Exam w/o Exercis 06/05/24 1341 MR#: [id number] Acct: [id number] Name: RAMONITA EL Rep #:[id number] : 1940 84 From: Mello Self Attending Dr: KRISTI Garza Stat us: REG CLI Ordering Dr: Sammie Strong Date: 05 /01/25 Location: [facility] Sex: M C Admitted: Reason [...] Date Dictated: 06/05/24 1341 Date Transcribed: 06/05/241722 Ammonia Still Operator: Signed [facility] Work Phone: Lower Ext Art Exam w/o Exerc xiang 06-05-2024 Lower Ext Art Exam w/o Exercis [facility] Cardiovascular Services [address] [place] [address] Lower Ext Art Exam w/o Exercis 06/05/241340 MR#: [id number] Acct: [id number] Name: RAMONITA EL Rep #: [id number] : 1940 84 From: Mello Demarco MD Attending Dr: KRISTI Garza Status: REG CLI Ordering Dr: Sammie Strong Date: 06/05/24 Location: [facility] Sex: M C Admitted: Reason For Study [...] Dictated: 06/05/24 1341 Date Transcribed: 06/05/24 1723 Ammonia Still Operator: Signed [facility] MR/BMS.Jamel 06-03-2024 MR/BMS.JOSÉ ANTONIO [facility] Vascular Surgery [facility] [address] [place] [address] OFFICE VISIT Date of Service: 06/03/24 MR#: [id number] Acct: [id number] Name: RAMONITA EL Rep #: [id number] : 1940 Provider: KRISTI Garza Age/Sex: 84/M [...] Carotid Artery Stenosis Chief Complaint: Establish Care Mysql Dba Required: No Is patient in pain?: Yes [...] He had recent carotid duplex performed at [facility] which demonstrated R ICA stenosis >70% [...] of his LLE by Dr. Kenny at [facility] though is uncertain what kind of procedure [...] abnormal gait, (more content not included)... Normal [facility] 05-28-2024 CNPN Telephone (FAMPWS) -- RAMONITA EL ([id number]) 1940 M NFR Date Time Provider Department 05/28/24 KARLA BARON During your visit today, we recorded the following information about you: Sandy Cardoza, RN 05/28/2024 2:18 PM Signed Pt calling in and states he saw Karla Tod yesterday and she sent a referral to [facility] Vascular Surgery while he was in the office. He states he spoke with them and they did not receive any referral or paperwork. Called and spoke with scheduling for vascular surgery and they state they did not receive anything. Referral order, carotid artery ultrasound results and Karla's office note faxed to [facility] vascular surgery at [phone]. Sandy Cardoza, RN 05/28/2024 2:55 PM Signed Called to confirm that fax went through. Per Smiley in scheduling, she received the paperwork and faxed it to [facility]. She gave their phone number of [phone]. Called and had to leave a msg. stating pt's name and and the need [...] Reason for Visit: Consult [502] Cmt: to [facility] Vascular Surgery Prescriptions as of 05/28/2024 - [...] [K86.1] 10/10/2022 (more content not included)... Normal [facility] CNOVon 05-27-2024 CNOV Office Visit (FAMPWS ) -- SIENNA,RAMONITA Brynn ([id number]) 1940 M NFR Date Time Provider Department 05/27/24 11:00 AM [facility] During your visit today, we recorded the following information about you: Pulse Respiration Blood pressure Weight 64/minute 16/minute 138/64 73.5 kg Karla Baron APRN.HOTEL ASSISTANT GENERAL MANAGER 05/27/2024 11:48 AM Signed Gabapentin 100 mg [...] A referral to a vascular specialist at [facility] has been faxed along with your study [...] (e.g., Dr. Fitzgerald or Dr. Gonzalez in [facility]). Karla Baron APRN.HOTEL ASSISTANT GENERAL MANAGER 05/27/2024 5:23 PM Signed This is a [...] more they could do. - Has seen vascular manager in the past but is reluctant to [...] Most recent visit was last week at [facility] for a medication lodged in the throat. [...] episode of care unspecified 08/10/06 STENT placed [facility] Alcohol abuse 05/22/2013 Chronic anxiety 10/22/2017 [...] gesture Radius fracture 06/21/[address] [facility] Tobacco abuse 05/22/2013 Urinary calculus, unspecified 01/05 Renal stone right side; 3 episodes with stones altogether with extraction in 196 PAST SURGICAL HISTORY Procedure Laterality Date ATHERECTOMY, FEMORAL-POPLITEAL 09/28/2009 right COLONOSCOPY 12/26/2023 COLONOSCOPY FLX DX W/COLLJ SPEC WHEN PFRMD 06/21/2015 Colonoscopy CORONARY ENDARTERCOMY OPEN ANY METHOD 08/10/2006 Angioplasty with stent ECHOCARDIOGRAM 11/24/2020 11/25/[address] (more content not included)... Normal [facility] 12 Lead EKGon 05-18-2024 12 Lead EKG [facility] Cardiovascular Services [address] [place] [address] 12 Lead EKG 05/18/24 0536 MR#: [id number] Acct: [id number] Name: RAMONITA EL Rep #: [id number] : 1940 84 From: Max Morales MD [...] 11:22, Premature ventricular complexes are now Present OR interval has increased Confirmed by Max Morales ([id number]), editor sound KAY SLOAN ([id number]) on 05/21/2024 10:05:57 AM Referred By: Confirmed By: Max Morales 05/21/24 1005 Date Max Morales MD CC: RAYO Baron; Dr. Lucien Matthews DO Signed Normal [facility] Absolute lymphocyte countOrd ered By: Lucien Matthews on 05-18-2024 Lymphocytes Auto (Unsp spec) [#/Vol] 1.33 10*3/uL 0.83-4.51 [facility] Absolute neutrophil countOrd ered By: Lucien Matthews on 05-18-2024 Neutrophils (Bld) [#/Vol] 7.0 10*3/uL 2.0-7.7 [facility] Anion gap in Serum or Plasma Ordered By: Lucien Matthews on 05-18-2024 Anion gap [Moles/Vol] 16 mmol/L High 5-15 [facility] Automated lymphocyte count a s percentage of total leukocytesOrdered By: Lucien Matthews on 05-18-2024 Lymphocytes/100 WBC Auto (Unsp spec) 14.4 % Low 19-41 [facility] BUN/creatinine ratioOrdered By: Lucien Matthews on 05-18-2024 Urea nitrogen/Creatinine [Mass ratio] 16.6 mg/mg 10- [facility] Basic Metabolic Profile (BMP )on 05-18-2024 BUN/CRE 16.6 RATIO Normal 10-20 [facility] Comment on above: Performed By: #### L 100.0100, L500.2500 ####[facility] [address] [place], [address] Calcium [Mass/Vol] 9.5 mg/dL Normal 7.6-11.0 [facility] Comment on above: Performed By: #### L 100.0100, L500.2500 ####[facility] [address] [place], [address] Chloride [Moles/Vol] 103 mmol/L Normal 98-108 [facility] Comment on above: Performed By: #### L 100.0100, L500.2500 ####[facility] [address] [place], [address] CO2 [Moles/Vol] 18.4 mmol/L Low 21.0-32.0 [facility] Comment on above: Performed By: #### L 100.0100, L500.2500 ####[facility] [address] [place], [address] Creatinine [Mass/Vol] 0.81 mg/dL Normal 0.70-1.20 [facility] Comment on above: Performed By: #### L 100.0100, L500.2500 ####[facility] [address] [place], [address] ECRCL 66.85 ml/min Normal 50-250 [facility] Comment on above: Performed By: #### L 100.0100, L500.2500 ####[facility] [address] [place], [address] GAP 16 High 5-15 [facility] Comment on above: Performed By: #### L 100.0100, L500.2500 ####[facility] [address] [place], [address] GFR/1.73 sq M.predicted among non-blacks MDRD (S/P/Bld) [Vol rate/Area] 87 mL/min/{1.73_m2} Normal >60 [facility] Comment on above: Result Comment: mL/m in/1.73m2 CKD-EPI Creatinine Equation (2020) Performed By: #### L 100.0100, L500.2500 ####[facility] [address] [place], [address] Glucose [Mass/Vol] 131 mg/dL High 70-99 [facility] Comment on above: Performed By: #### L 100.0100, L500.2500 ####[facility] [address] [place], [address] Potassium [Moles/Vol] 3.8 mmol/L Normal 3.3-5.1 [facility] Comment on above: Performed By: #### L 100.0100, L500.2500 ####[facility] [address] [place], [address] Sodium [Moles/Vol] 138 mmol/L Normal 133-145 [facility] Comment on above: Performed By: #### L 100.0100, L500.2500 ####[facility] [address] [place], [address] Urea nitrogen [Mass/Vol] 14 mg/dL Normal 4-19 [facility] Comment on above: Performed By: #### L 100.0100, L500.2500 ####[facility] [address] [place], [address] Basophil percentageOrdered B y: Luciengayle Shahs on 05-18-2024 Basophils/100 WBC (Bld) 0.8 % 0-1 [facility] CBC W/Diff, Automatedon 05-06 Absolute Lymph 1.33 X10 3/uL Normal 0.83-4.51 [facility] Comment on above: Performed By: #### L 100.0100, L500.2500 ####[facility] [address] [place], [address] Absolute Neut 7.0 X10 3/uL Normal 2.0-7.7 [facility] Comment on above: Performed By: #### L 100.0100, L500.2500 ####[facility] [address] [place], [address] Basophils/100 WBC (Bld) 0.8 % Normal 0-1 [facility] Comment on above: Performed By: #### L 100.0100, L500.2500 ####[facility] [address] [place], [address] Eosinophils/100 WBC (Bld) 0.8 % Normal 0-5 [facility] Comment on above: Performed By: #### L 100.0100, L500.2500 ####[facility] [address] [place], [address] Erythrocyte distribution width (RBC) [Ratio] 13.2 % Normal 11.6-14.6 [facility] Comment on above: Performed By: #### L 100.0100, L500.2500 ####[facility] [address] [place], [address] Hematocrit (Bld) [Volume fraction] 44.9 % Normal 40-54 [facility] Comment on above: Performed By: #### L 100.0100, L500.2500 ####[facility] [address] [place], [address] Hemoglobin (Bld) [Mass/Vol] 16.0 g/dL Normal 13.0-16.5 [facility] Comment on above: Performed By: #### L 100.0100, L500.2500 ####[facility] [address] [place], [address] IG% 0.300 Normal 0.0-0.9 [facility] Comment on above: Result Comment: IG% - Immature Granulocytes (promyelocytes, myelocytes and metamyelocytes) > 1% indicates that a LEFT SHIFT is Present. Performed By: #### L 100.0100, L500.2500 ####[facility] [address] [place], [address] Lymphocytes/100 WBC (Bld) 14.4 % Low 19-41 [facility] Comment on above: Performed By: #### L 100.0100, L500.2500 ####[facility] [address] [place], [address] MCH (RBC) [Entitic mass] 31.9 pg Normal 27.0-32.0 [facility] Comment on above: Performed By: #### L 100.0100, L500.2500 ####[facility] [address] [place], [address] MCHC (RBC) [Mass/Vol] 35.6 g/dL Normal 32-36 [facility] Comment on above: Performed By: #### L 100.0100, L500.2500 ####[facility] [address] [place], [address] MCV (RBC) [Entitic vol] 89.4 fL Normal 80-94 [facility] Comment on above: Performed By: #### L 100.0100, L500.2500 ####[facility] [address] [place], [address] Monocytes/100 WBC (Bld) 8.5 % Normal 0-10 [facility] Comment on above: Performed By: #### L 100.0100, L500.2500 ####[facility] [address] [place], [address] Neutrophils/100 WBC (Bld) 75.2 % High 47-70 [facility] Comment on above: Performed By: #### L 100.0100, L500.2500 ####[facility] [address] [place], [address] Nucleated RBC (Bld) [#/Vol] 0 10*3/uL Normal 0-5 [facility] Comment on above: Performed By: #### L 100.0100, L500.2500 ####[facility] [address] [place], [address] Platelet mean volume (Bld) [Entitic vol] 10.3 fL Normal 6.2-12.0 [facility] Comment on above: Performed By: #### L 100.0100, L500.2500 ####[facility] [address] [place], [address] Platelets (Bld) [#/Vol] 269 10*3/uL Normal 150-450 [facility] Comment on above: Performed By: #### L 100.0100, L500.2500 ####[facility] [address] [place], [address] RBC (Bld) [#/Vol] 5.02 10*6/uL Normal 4.6-6.[address] [facility] Comment on above: Performed By: #### L 100.0100, L500.2500 ####[facility] [address] [place], [address] RDW SD 43.2 fl Normal 35.1-43.9 [facility] Comment on above: Performed By: #### L 100.0100, L500.2500 ####[facility] [address] [place], [address] WBC (Bld) [#/Vol] 9.3 10*3/uL Normal 4.4-11.0 [facility] Comment on above: Performed By: #### L 100.0100, L500.2500 ####[facility] [address] [place], [address] Carbon dioxide, total [Moles /volume] in Central venous bloodOrdered By: Lucien Matthews on 05-18-2024 CO2 [Moles/Vol] 18.4 mmol/L Low 21.0-32.0 [facility] Chest 1 View (Portable)on Chest 1 View (Portable) [facility] Imaging Services [address] [place] [address] Chest 1 View (Portable) MR#: [id number] Acct: [id number] Name: RAMONITA EL Rep #: [id number] : 1940 M 84 From: Max Alvarez i, MD PCP: Karla Baron NP-Del Status: [facility] ER Study: Chest 1 View (Portable) Date of Exam: 05/18/24 Exam# [id number] Ordering Dr: Lucien Matthews DO PROCEDURE: CHEST [...] Pneumonia to be ruled out. Reading Location: MDV-VKLMQJDU-IN CC: MANAGER FORENSIC-C Karla Baron; Dr. Lucien Matthews DO Ammonia Still Operator: Signed Normal [facility] Chloride assayOrdered By: Sony Matthews on 05-18-2024 Chloride [Moles/Vol] 103 mmol/L 98-108 [facility] Emergency Department Summary on 05-18-2024 Emergency Department Summary [facility] Medical Records Department [address] [place] [address] Emergency Department Summary 05/18/24 MR#: [id number] Acct: [id number] Name: RAMONITA EL Rep #: [id number] : 1940 84 From: Lucien Matthews DO PCP: RAYO Pillai Status:REG ER Location: ED HPI History of Present Illness Chief Complaint: Shortness of Breath [facility] Medical History Alcohol use Prostate disease Easy [...] capsule (Flomax) 0.4 mg PO DAILY 05/02/16 11/2 1 History hydroxyzine HCl 25 mg tablet [...] all present (more content not included)... Normal [facility] Eosinophil percentageOrdered By: Lucien Matthews on 05-18-2024 Eosinophils/100 WBC (Bld) 0.8 % 0-5 [facility] Erythrocyte distribution wid th (RBC) [Ratio]Ordered By: Lucien Matthews on 05-18-2024 Erythrocyte distribution width (RBC) [Entitic vol] 43.2 fL 35.1-43.9 [facility] Erythrocyte distribution wid th ratioOrdered By: Lucien Matthews on 05-18-2024 Erythrocyte distribution width (RBC) [Ratio] 13.2 % 11.6-14.6 [facility] Erythrocyte distribution wid th standard deviationOrdered By: Lucien Matthews on 05-18-2024 Erythrocyte distribution width (RBC) [Ratio] 43.2 fl 35.1-43.9 [facility] Estimation of creatinine john aranceOrdered By: Lucien Matthews on 05-18-2024 Estimated Creatinine Clearance Calc 66.85 ml/min 50-250 [facility] GFR/1.73 sq M.predicted cynthia g non-blacks MDRD (S/P/Bld) [Vol rate/Area]Ordered By: Lucien Matthews on 05-18-2024 Estimated GFR (MDRD) Non-Af Amer 87 >60 [facility] Comment on above: mL/min/1.73m2 CKD-EP I Creatinine Equation (2020) Glomerular filtration rate ( GFR) estimation/1.73 sq m using serum, plasma, or whole bOrdered By: Lucien Matthews on 05-18-2024 GFR/1.73 sq M.predicted among non-blacks MDRD (S/P/Bld) [Vol rate/Area] 87 mL/min/{1.73_m2} >60 [facility] Comment on above: mL/min/1.73m2 CKD-EP I Creatinine Equation (2020) Hematocrit Auto (Bld) [Volum e fraction]Ordered By: Lucien Matthews on 05-18-2024 Hematocrit (Bld) [Volume fraction] 44.9 % 40-54 [facility] Hemoglobin measurementOrdere d By: Lucien Matthews on 05-18-2024 Hemoglobin (Bld) [Mass/Vol] 16.0 g/dL 13.0-16.5 [facility] Immature granulocytes/100 WB C Auto (Bld)Ordered By: Lucien Matthews on 05-18-2024 Immature granulocytes/100 WBC (Bld) 0.300 % 0.0-0.9 [facility] Comment on above: IG% - Immature Granu locytes (promyelocytes, myelocytes and metamyelocytes) > 1% indicates that a LEFT SHIFT is Present. L501.4021on 05-18-2024 Trop T High Sen 17 ng/L Normal <=22 [facility] Comment on above: Order Comment: *PLEA SE ADD ON PER * Performed By: #### L 501.4021 #### [facility] [address] [place], [address] Lymphocytes Auto (Unsp spec) [#/Vol]Ordered By: Lucien Matthews on 05-18-2024 Lymphocytes (Bld) [#/Vol] 1.33 10*3/uL 0.83-4.51 [facility] Lymphocytes/100 WBC Auto (Un sp spec)Ordered By: Lucien Matthews on 05-18-2024 Lymphocytes/100 WBC (Bld) 14.4 % Low 19-41 [facility] MCV (mean corpuscular volume ) determinationOrdered By: Lucien Matthews on 05-18-2024 MCV (RBC) [Entitic vol] 89.4 fL 80-94 [facility] Mean corpuscular hemoglobin (MCH) determinationOrdered By: Lucien Matthews on 05-18-2024 MCH (RBC) [Entitic mass] 31.9 pg 27.0-32.0 [facility] Mean corpuscular hemoglobin concentration (MCHC) determinationOrdered By: Lucien Matthews on 05-18-2024 MCHC (RBC) [Mass/Vol] 35.6 g/dL 32-36 [facility] Mean platelet volume determi nationOrdered By: Lucien Matthews on 05-18-2024 Platelet mean volume (Bld) [Entitic vol] 10.3 fL 6.2-12.0 [facility] Monocyte percentageOrdered B y: Lucien Matthews on 05-18-2024 Monocytes/100 WBC (Bld) 8.5 % 0-10 [facility] Neutrophil percentageOrdered By: Lucien Matthews on 05-18-2024 Neutrophils/100 WBC (Bld) 75.2 % High 47-70 [facility] Nucleated red blood cell per centageOrdered By: Lucien Matthews on 05-18-2024 Nucleated RBC/100 WBC (Bld) [Ratio] 0 % 0-5 [facility] Platelet countOrdered By: Sony Matthews on 05-18-2024 Platelets (Bld) [#/Vol] 269 10*3/uL 150-450 [facility] Potassium (Unsp spec) [Mass/ Vol]Ordered By: Lucien Matthews on 05-18-2024 Potassium [Moles/Vol] 3.8 mmol/L 3.3-5.1 [facility] Potassium measurement (mass/ volume)Ordered By: Lucien Matthews on 05-18-2024 Potassium (Unsp spec) [Mass/Vol] 3.8 mmol/L 3.3-5.1 [facility] RBC Auto (Bld) [#/Vol]Ordere d By: Lucien Matthews on 05-18-2024 RBC (Bld) [#/Vol] 5.02 10*6/uL 4.6-6.[address] [facility] Serum creatinine measurement (mass/volume)Ordered By: Lucien Matthews on 05-18-2024 Creatinine [Mass/Vol] 0.81 mg/dL 0.70-1.20 [facility] Serum glucose measurement (m ass/volume)Ordered By: Lucien Matthews on 05-18-2024 Glucose [Mass/Vol] 131 mg/dL High 70-99 [facility] Serum or plasma calcium heather urement (mass/volume)Ordered By: Lucien Matthews on 05-18-2024 Calcium [Mass/Vol] 9.5 mg/dL 7.6-11.0 [facility] Serum or plasma urea nitroge n measurement (mass/volume)Ordered By: Lucien Matthews on 05-18-2024 Urea nitrogen [Mass/Vol] 14 mg/dL 4-19 [facility] Sodium levelOrdered By: Kd Matthews on 05-18-2024 Sodium [Moles/Vol] 138 mmol/L 133-145 [facility] Troponin T.cardiac High sens itivity method [Mass/Vol]Ordered By: Lucien Matthews on 05-18-2024 Troponin T High Sensitivity 17 ng/L <22 [facility] Troponin T.cardiac [Mass/vol ume] in Serum or Plasma by High sensitivity methodOrdered By: Lucien Matthews on 05-18-2024 Troponin T.cardiac High sensitivity method [Mass/Vol] 17 ng/L <22 [facility] White blood cell (WBC) count Ordered By: Lucien Matthews on 05-18-2024 WBC (Bld) [#/Vol] 9.3 10*3/uL 4.4-11.0 [facility] US [facility]OTID [facility]on 04-03-2024 [facility] Non-Invasive Vascular Laboratory [facility] Carotid Duplex Bilateral/Complete Date of service/time: 04/03/2024 [...] interpretation criteria are used as recommended by [facility]. When compared with the prior [...] physician: JOSE ALFREDO Rainey DO Final CC [place] [facility] Image : [id number] See Link below for Image [facility] (FAMWS) -- RAMONITA EL ([id number]) 1940 M NFR Date Time Provider Department 03/03/24 KARLA BARON During your visit today, we recorded the following information about you: Karla Baron APRN.HOTEL ASSISTANT GENERAL MANAGER 03/03/2024 6:52 PM Signed Can please let [...] lab in a month and transferred to [facility] in scheduling to set up carotid ultrasound. [...] [I65.23] Order(s):PROSTATE-SPECIFIC ANTIGEN DIAGNOSTIC [SQPSA] Order #: [id number] FUTURE [facility]OT[facility] [[id number]] Order #: [id number] FUTURE Prescriptions as of 03/04/2024 - finasteride [...] 09/06/2017 Stented (more content not included)... Normal [facility] CBC W Auto Differential pane l (Bld)on 02-29-2024 Basophils (Bld) [#/Vol] 0.07 10*3/uL Normal <0.11 [facility] Comment on above: Order Comment: Speci men Type: BLOOD SPECIMENOrdering Facility: [facility] Address: [address] [place] [address] Performed By: #### 5 7021-8 ####[facility] LABCLIA [id number] [facility] [place] [address] [place] Basophils/100 WBC (Bld) 0.9 % Normal [facility] Comment on above: Order Comment: Speci men Type: BLOOD SPECIMENOrdering Facility: [facility] Address: [address] [place] [address] Performed By: #### 5 7021-8 ####[facility] LABCLIA [id number] [place] [address] [place] Differential cell count method Nom (Bld) Auto Normal [facility] Comment on above: Order Comment: Speci men Type: BLOOD SPECIMENOrdering Facility: [facility] Address: [address] [place] [address] Performed By: #### 5 7021-8 ####[facility] LABCLIA [id number] [place] [address] [place] Eosinophils (Bld) [#/Vol] 0.13 10*3/uL Normal <0.46 [facility] Comment on above: Order Comment: Speci men Type: BLOOD SPECIMENOrdering Facility: [facility] Address: [address] [place] [address] Performed By: #### 5 7021-8 ####[facility] LABCLIA [id number] [place] [address] [place] Eosinophils/100 WBC (Bld) 1.7 % Normal [facility] Comment on above: Order Comment: Speci men Type: BLOOD SPECIMENOrdering Facility: [facility] Address: [address] [place] [address] Performed By: #### 5 7021-8 ####[facility] LABCLIA [id number] [place] [address] [place] Erythrocyte distribution width (RBC) [Ratio] 13.3 % Normal 11.5-15.0 [facility] Comment on above: Order Comment: Speci men Type: BLOOD SPECIMENOrdering Facility: [facility] Address: [address] [place] [address] Performed By: #### 5 7021-8 ####[facility] LABIA [id number] [place] [address] [place] Hematocrit (Bld) [Volume fraction] 47.5 % Normal 39.0-51.0 [facility] Comment on above: Order Comment: Speci men Type: BLOOD SPECIMENOrdering Facility: [facility] Address: [address] [place] [address] Performed By: #### 5 7021-8 ####[facility] LABIA [id number] [place] [address] [place] Hemoglobin (Bld) [Mass/Vol] 15.7 g/dL Normal 13.0-17.0 [facility] Comment on above: Order Comment: Speci men Type: BLOOD SPECIMENOrdering Facility: [facility] Address: [address] [place] [address] Performed By: #### 5 7021-8 ####[facility] LABIA [id number] [place] [address] [place] Immature granulocytes (Bld) [#/Vol] 10*3/uL Normal <0.10 [facility] Comment on above: Order Comment: Speci men Type: BLOOD SPECIMENOrdering Facility: [facility] Address: [address] [place] [address] Performed By: #### 5 7021-8 ####[facility] LABIA [id number] [place] [address] [place] Immature granulocytes/100 WBC (Bld) 0.1 % Normal [facility] Comment on above: Order Comment: Speci men Type: BLOOD SPECIMENOrdering Facility: [facility] Address: [address] [place] [address] Performed By: #### 5 7021-8 ####[facility] LABCLIA [id number] [place] [address] [place] Lymphocytes (Bld) [#/Vol] 1.30 10*3/uL Normal 1.00-4.00 [facility] Comment on above: Order Comment: Speci men Type: BLOOD SPECIMENOrdering Facility: [facility] Address: [address] [place] [address] Performed By: #### 5 7021-8 ####[facility] LABCLIA [id number] [place] [address] [place] Lymphocytes/100 WBC (Bld) 17.0 % Normal [facility] Comment on above: Order Comment: Speci men Type: BLOOD SPECIMENOrdering Facility: [facility] Address: [address] [place] [address] Performed By: #### 5 7021-8 ####[facility] LABCLIA [id number] [place] [address] [place] MCH (RBC) [Entitic mass] 31.2 pg Normal 26.0-34.0 [facility] Comment on above: Order Comment: Speci men Type: BLOOD SPECIMENOrdering Facility: [facility] Address: [address] [place] [address] Performed By: #### 5 7021-8 ####[facility] LABCLIA [id number] [place] [address] [place] MCHC (RBC) [Mass/Vol] 33.1 g/dL Normal 30.5-36.0 [facility] Comment on above: Order Comment: Speci men Type: BLOOD SPECIMENOrdering Facility: [facility] Address: [address] [place] [address] Performed By: #### 5 7021-8 ####[facility] LABCLIA [id number] [place] [address] [place] MCV (RBC) [Entitic vol] 94.4 fL Normal 80.0-100.0 [facility] Comment on above: Order Comment: Speci men Type: BLOOD SPECIMENOrdering Facility: [facility] Address: [address] [place] [address] Performed By: #### 5 7021-8 ####[facility] LABCLIA [id number] [place] [address] [place] Monocytes (Bld) [#/Vol] 0.61 10*3/uL Normal <0.87 [facility] Comment on above: Order Comment: Speci men Type: BLOOD SPECIMENOrdering Facility: [facility] Address: [address] [place] [address] Performed By: #### 5 7021-8 ####[facility] LABCLIA [id number] [place] [address] [place] Monocytes/100 WBC (Bld) 8.0 % Normal [facility] Comment on above: Order Comment: Speci men Type: BLOOD SPECIMENOrdering Facility: [facility] Address: [address] [place] [address] Performed By: #### 5 7021-8 ####[facility] LABCLIA [id number] [place] [address] [place] Neutrophils (Bld) [#/Vol] 5.53 10*3/uL Normal 1.45-7.50 [facility] Comment on above: Order Comment: Speci men Type: BLOOD SPECIMENOrdering Facility: [facility] Address: [address] [place] [address] Performed By: #### 5 7021-8 ####[facility] LABCLIA [id number] [place] [address] [place] Neutrophils/100 WBC (Bld) 72.3 % Normal [facility] Comment on above: Order Comment: Speci men Type: BLOOD SPECIMENOrdering Facility: [facility] Address: [address] [place] [address] Performed By: #### 5 7021-8 ####[facility] LABCLIA [id number] [place] [address] [place] Nucleated RBC (Bld) [#/Vol] 10*3/uL Normal <0.01 [facility] Comment on above: Order Comment: Speci men Type: BLOOD SPECIMENOrdering Facility: [facility] Address: [address] [place] [address] Performed By: #### 5 7021-8 ####[facility] LABCLIA [id number] [place] [address] [place] Nucleated RBC/100 WBC (Bld) [Ratio] 0.0 /100 WBC Normal [facility] Comment on above: Order Comment: Speci men Type: BLOOD SPECIMENOrdering Facility: [facility] Address: [address] [place] [address] Performed By: #### 5 7021-8 ####[facility] LABCLIA [id number] [place] [address] [place] Platelet mean volume (Bld) [Entitic vol] 11.3 fL Normal 9.0-12.7 [facility] Comment on above: Order Comment: Speci men Type: BLOOD SPECIMENOrdering Facility: [facility] Address: [address] [place] [address] Performed By: #### 5 7021-8 ####[facility] LABCLIA [id number] [place] [address] [place] Platelets (Bld) [#/Vol] 264 10*3/uL Normal 150-400 [facility] Comment on above: Order Comment: Speci men Type: BLOOD SPECIMENOrdering Facility: [facility] Address: [address] [place] [address] Performed By: #### 5 7021-8 ####[facility] LABIA [id number] [place] [id number] [place] RBC (Bld) [#/Vol] 5.03 10*6/uL Normal 4.20-6.00 [facility] Comment on above: Order Comment: Speci men Type: BLOOD SPECIMENOrdering Facility: [facility] Address: [address] [place] [address] Performed By: #### 5 7021-8 ####[facility] LABIA [id number] [place] [address] [place] WBC (Bld) [#/Vol] 7.65 10*3/uL Normal 3.70-11.00 [facility] Comment on above: Order Comment: Speci men Type: BLOOD SPECIMENOrdering Facility: [facility] Address: [address] [place] [address] Performed By: #### 5 7021-8 ####[facility] LABIA [id number] [place] [address] [place] CNOVon 02-29-2024 [facility] RAMONITA EL ([id number]) 1940 M NFR Date Time Provider Department 02/29/24 2:00 PM [facility] visit today, we recorded the following information about you: Pulse Respiration Blood pressure Weight 72/minute 16/minute 138/74 73 kg Karla Baron APRN.HOTEL ASSISTANT GENERAL MANAGER 02/29/2024 3:54 PM Signed This is a [...] episode of care unspecified 08/10/06 STENT placed [facility] Alcohol abuse 05/22/2013 Chronic anxiety 10/22/2017 [...] gesture Radius fracture 06/21/[address] [facility] Tobacco abuse 05/22/2013 Urinary calculus, unspecified 01/05 [...] nourished.. Skin: (more content not included)... Normal [facility] Comprehensive metabolic 2000 panelon 02-29-2024 Albumin [Mass/Vol] 4.1 g/dL Normal 3.9-4.9 [facility] Comment on above: Order Comment: Speci men Type: BLOOD SPECIMENOrdering Facility: [facility] Address: [address] [place] [address] Performed By: #### 2 4323-8, 51939-8, ####[facility] LABIA [id number] [place] [address] [place] ALP [Catalytic activity/Vol] 96 U/L Normal 38-113 [facility] Comment on above: Order Comment: Speci men Type: BLOOD SPECIMENOrdering Facility: [facility] Address: [address] [place] [address] Performed By: #### 2 4323-8, 50227-7, ####[facility] LABIA [id number] [place] [address] [place] ALT [Catalytic activity/Vol] 12 U/L Normal 10-54 [facility] Comment on above: Order Comment: Speci men Type: BLOOD SPECIMENOrdering Facility: [facility] Address: [address] [place] [address] Performed By: #### 2 4323-8, 41290-7, ####[facility] LABIA [id number] [place] [id number] [place] Anion gap [Moles/Vol] 12 mmol/L Normal 8-15 [facility] Comment on above: Order Comment: Speci men Type: BLOOD SPECIMENOrdering Facility: [facility] Address: [address] [place] [address] Performed By: #### 2 4323-8, , ####[facility] LABCLIA [id number] [address] [address] [place] AST [Catalytic activity/Vol] 17 U/L Normal 14-40 [facility] Comment on above: Order Comment: Speci men Type: BLOOD SPECIMENOrdering Facility: [facility] Address: [address] [place] [address] Performed By: #### 2 4323-8, , ####[facility] LABCLIA [id number] [address] [address] [place] Bilirubin [Mass/Vol] 0.4 mg/dL Normal 0.2-1.3 [facility] Comment on above: Order Comment: Speci men Type: BLOOD SPECIMENOrdering Facility: [facility] Address: [address] [place] [address] Performed By: #### 2 4323-8, , ####[facility] LABCLIA [id number] [place] [id number] [place] Calcium [Mass/Vol] 9.6 mg/dL Normal 8.5-10.2 [facility] Comment on above: Order Comment: Speci men Type: BLOOD SPECIMENOrdering Facility: [facility] Address: [address] [place] [address] Performed By: #### 2 4323-8, , ####[facility] LABCLIA [id number] [address] [address] [place] Chloride [Moles/Vol] 102 mmol/L Normal 98-107 [facility] Comment on above: Order Comment: Speci men Type: BLOOD SPECIMENOrdering Facility: [facility] Address: [address] [place], [place] [id number] Performed By: #### 2 4323-8, 85662-1, ####[facility] LABCLIA [id number] [place] [id number] [place] CO2 [Moles/Vol] 25 mmol/L Normal 22-30 [facility] Comment on above: Order Comment: Speci men Type: BLOOD SPECIMENOrdering Facility: [facility] Address: [address] [place] [address] Performed By: #### 2 4323-8, 27164-1, ####[facility] LABIA [id number] [place] [id number] [place] Creatinine [Mass/Vol] 0.68 mg/dL Low 0.73-1.22 [facility] Comment on above: Order Comment: Speci men Type: BLOOD SPECIMENOrdering Facility: [facility] Address: [address] [place] [address] Performed By: #### 2 4323-8, 89877-2, ####[facility] [id number] [place] [address] [place] Creatinine and Glomerular filtration rate.predicted panel (S/P/Bld) 92 mL/min/1.73m??? Normal >=60 [facility] Comment on above: Order Comment: Speci men Type: BLOOD SPECIMENOrdering Facility: [facility] Address: [address] [place] [address] Result Comment: Nicholas mated Glomerular Filtration Rate (eGFR) is calculated [...] actual GFR. Performed By: #### 2 4323-8, 37957-0, ####[facility] LABIA [id number] [address] [address] [place] Glucose [Mass/Vol] 97 mg/dL Normal 74-99 [facility] Comment on above: Order Comment: Speci men Type: BLOOD SPECIMENOrdering Facility: [facility] Address: [address] [place] [address] Result Comment: The [place] [employer] (ADA) provides guidance for cutoff [...] Standards of Medical Care in Diabetes 2016, [place] [employer]. Diabetes Care. 2016.39(Suppl 1). Performed By: #### 2 4323-8, 81620-4, ####[facility] LABCLIA [id number] [place] [address] [place] Potassium [Moles/Vol] 4.2 mmol/L Normal 3.7-5.1 [facility] Comment on above: Order Comment: Speci men Type: BLOOD SPECIMENOrdering Facility: [facility] Address: [address] [place] [address] Performed By: #### 2 4323-8, 81766-3, ####[facility] LABCLIA [id number] [place] [id number] [place] Protein [Mass/Vol] 7.2 g/dL Normal 6.3-8.0 [facility] Comment on above: Order Comment: Speci men Type: BLOOD SPECIMENOrdering Facility: [facility] Address: [address] [place] [address] Performed By: #### 2 4323-8, 11131-4, ####[facility] LABCLIA [id number] [place] [id number] [place] Sodium [Moles/Vol] 139 mmol/L Normal 136-144 [facility] Comment on above: Order Comment: Speci men Type: BLOOD SPECIMENOrdering Facility: [facility] Address: [address] [place] [address] Performed By: #### 2 4323-8, 66211-6, ####[facility] LABCLIA [id number] [place] [address] [place] Urea nitrogen [Mass/Vol] 12 mg/dL Normal 9-24 [facility] Comment on above: Order Comment: Speci men Type: BLOOD SPECIMENOrdering Facility: [facility] Address: [address] [place] [address] Performed By: #### 2 4323-8, 63377-3, ####[facility] LABCLIA [id number] [place] [address] [place] Lipid 1996 panelon 5 Cholesterol [Mass/Vol] 217 mg/dL High <200 [facility] Comment on above: Order Comment: Speci men Type: BLOOD SPECIMENOrdering Facility: [facility] Address: [address] [place] [address] Result Comment: <200 mg/dL, Desirable 200-239 mg/dL, Borderline high >239 mg/dL, High Performed By: #### 2 4323-8, 46189-8, ####[facility] LABCLIA [id number] [place] [address] [place] Cholesterol in HDL [Mass/Vol] 39 mg/dL Low >39 [facility] Comment on above: Order Comment: Speci men Type: BLOOD SPECIMENOrdering Facility: [facility] Address: [address] [place] [address] Result Comment: 40-5 9 mg/dL, Acceptable >59 mg/dL, High: Negative risk factor for coronary heart disease <40 mg/dL, Low: Positive risk factor for coronary heart disease Performed By: #### 2 4323-8, 14486-7, ####[facility] LABCLIA [id number] [place] [address] [place] Cholesterol in LDL [Mass/Vol] 150 mg/dL High <100 [facility] Comment on above: Order Comment: Speci men Type: BLOOD SPECIMENOrdering Facility: [facility] Address: [address] [place] [address] Result Comment: <100 mg/dL, Optimal 100-129 mg/dL, Near optimal/above optimal 130-159 mg/dL, Borderline high 160-189 mg/dL, High >189 mg/dL, Very high Secondary prevention optimal LDL Cholesterol levels are recommended to be < 70 mg/dL Performed By: #### 2 4323-8, 54585-1, ####[facility] LABCLIA [id number] [place] [address] [place] Cholesterol in LDL/Cholesterol in HDL [Mass ratio] 3.85 {ratio} High <2.54 [facility] Comment on above: Order Comment: Speci men Type: BLOOD SPECIMENOrdering Facility: [facility] Address: [address] [place] [address] Result Comment: Isela haney: 1. National Cholesterol Education Program ATP III Guideline At-A-Glance Quick Desk Reference: National Heart, Lung, and Blood [place]. National Institutes of Health. 2001: NIH Publication No. 01-3305. 2. An International Atherosclerosis Society position paper: global recommendations for the management of dyslipidemia: executive summary, Atherosclerosis. 2014: 232(2):410-413. Performed By: #### 2 4323-8, 28676-0, ####[facility] LABCLIA [id number] [place] [address] [place] Cholesterol in VLDL [Mass/Vol] 28 mg/dL Normal <30 [facility] Comment on above: Order Comment: Speci men Type: BLOOD SPECIMENOrdering Facility: [facility] Address: [address] [place] [address] Performed By: #### 2 4323-8, 85999-2, ####[facility] LABCLIA [id number] [address] [address] [place] Cholesterol non HDL [Mass/Vol] 178 mg/dL High <130 [facility] Comment on above: Order Comment: Speci men Type: BLOOD SPECIMENOrdering Facility: [facility] Address: [address] [place] [address] Result Comment: <130 mg/dL, Optimal 130-159 mg/dL, Near optimal/above optimal 160-189 mg/dL, Borderline high 190-219 mg/dL, High >219 mg/dL, Very high Secondary prevention optimal non HDL Cholesterol levels are recommended to be <100 mg/dL Performed By: #### 2 4323-8, 28620-8, ####[facility] LABCLIA [id number] [place] [address] [place] Cholesterol.total/Chol esterol in HDL [Mass ratio] 5.56 {ratio} High <5.10 [facility] Comment on above: Order Comment: Speci men Type: BLOOD SPECIMENOrdering Facility: [facility] Address: [address] [place] [address] Performed By: #### 2 4323-8, , ####[facility] LABCLIA [id number] [place] [id number] [place] FASTING TIME 12 hrs Normal [facility] Comment on above: Order Comment: Speci men Type: BLOOD SPECIMENOrdering Facility: [facility] Address: [address] [place] [id number] Performed By: #### 2 4323-8, , ####[facility] LABCLIA [id number] [address] [address] [place] Triglyceride [Mass/Vol] 142 mg/dL Normal <150 [facility] Comment on above: Order Comment: Speci men Type: BLOOD SPECIMENOrdering Facility: [facility] Address: [address] [place] [address] Result Comment: <150 mg/dL, Normal 150-199 mg/dL, Borderline high 200-499 mg/dL, High >499 mg/dL, Very high Performed By: #### 2 4323-8, 77037-0, 34105-5 ####[facility] LABCLIA [id number] [place] [id number] [place] Magnesium SerPl-mCncon 02-28 Magnesium [Mass/Vol] 1.9 mg/dL Normal 1.7-2.3 [facility] Comment on above: Order Comment: Speci men Type: BLOOD SPECIMENOrdering Facility: [facility] Address: [address] [place] [address] Performed By: #### 2 4323-8, 79876-2, ####[facility] LABCLIA [id number] [place] [address] [place] PSA/PROSTATE SPECIFIC ANTIGE N SCREENINGon 02-29-2024 Prostate specific Ag [Mass/Vol] 5.99 ng/mL High <2.60 [facility] Comment on above: Order Comment: Speci men Type: BLOOD SPECIMENOrdering Facility: [facility] Address: [address] [place] [address] Result Comment: Tota l PSA test methodology [...] Med 2003,349:335-42. Performed By: #### P SAS1 ####[facility] LABCLIA [id number] [address] [facility] CNPNon 02-27-2024 CNPN Telephone (FAMWS) -- RAMONITA EL ([id number]) 1940 M NFR Date Time Provider Department 02/27/24 KARLA BARON During your visit today, we [...] nurse for this message. [facility] 3:49 PM Addendum Please call patient , patient did return the call, we were on hold several minutes , advised patient I will send message for nurse to call back Please call patient [phone] Sandy Cardoza RN 02/27/2024 4:37 PM Signed [...] Date Reviewed: 02/01/2024 Reviewed by: Gus Sanchez APRN.HOTEL ASSISTANT GENERAL MANAGER - Fully Assessed Reason for Visit: Patient [...] Chronic interstitia (more content not included)... Normal [facility] Basic Metabolic Profile (BMP )on 02-18-2024 BUN/CRE 17.3 RATIO Normal 10-20 [facility] Comment on above: Performed By: #### L 501.9910, L500.2500 ####[facility] [address] [place], [address] CA,Total 8.9 mg/dL Normal 8.5-10.1 [facility] Comment on above: Performed By: #### L 501.9910, L500.2500 ####[facility] [address] [place], [address] Chloride [Moles/Vol] 108 mmol/L High 98-107 [facility] Comment on above: Performed By: #### L 501.9910, L500.2500 ####[facility] [address] [place], [address] CO2 [Moles/Vol] 27.0 mmol/L Normal 21.0-32.0 [facility] Comment on above: Performed By: #### L 501.9910, L500.2500 ####[facility] [address] [place], [address] Creatinine [Mass/Vol] 0.92 mg/dL Normal 0.70-1.30 [facility] Comment on above: Result Comment: The validity of the calculated GFR GFRAA in patients over 70 years has not been determined. Clinical correlation is essential. Performed By: #### L 501.9910, L500.2500 ####[facility] [address] [place], [address] EST GFR - AA 101 mL/min Normal >60 [facility] Comment on above: Result Comment: Afri can [place] GFR Calc Performed By: #### L 501.9910, L500.2500 ####[facility] [address] [place], [address] GAP 4 Low 5-15 [facility] Comment on above: Performed By: #### L 501.9910, L500.2500 ####[facility] [address] [place], [address] GFR/1.73 sq M.predicted among non-blacks MDRD (S/P/Bld) [Vol rate/Area] 83 mL/min/{1.73_m2} Normal >60 [facility] Comment on above: Result Comment: Non- GFR Calc Performed By: #### L 501.9910, L500.2500 ####[facility] [address] [place], [address] Glucose [Mass/Vol] 131 mg/dL High 74-106 [facility] Comment on above: Result Comment: Fast ing Glucose result greater than or equal to 126 mg/dL suggests DIABETES MELLITUS per A.D.A. criteria. Performed By: #### L 501.9910, L500.2500 ####[facility] [address] [place], [address] Potassium [Moles/Vol] 4.1 mmol/L Normal 3.5-5.1 [facility] Comment on above: Performed By: #### L 501.9910, L500.2500 ####[facility] [address] [place], [address] Sodium [Moles/Vol] 140 mmol/L Normal 136-145 [facility] Comment on above: Performed By: #### L 501.9910, L500.2500 ####[facility] [address] [place], [place], [address] Urea nitrogen [Mass/Vol] 16 mg/dL Normal 7-18 [facility] Comment on above: Performed By: #### L 501.9910, L500.2500 ####[facility] [address] [place], [place], [address] Blood urea nitrogen (BUN)/cr eatinine ratioOrdered By: Justice Johnson on 02-18-2024 Urea nitrogen/Creatinine [Mass ratio] 17.3 mg/mg 10-20 [facility] Carbon dioxide measurementOr dered By: Justice Johnson on 02-18-2024 CO2 [Moles/Vol] 27.0 mmol/L 21.0-32.0 [facility] Chloride measurementOrdered By: Justice Johnson on 02-18-2024 Chloride [Moles/Vol] 108 mmol/L High 98-107 [facility] Estimated glomerular filtrat ion rate (GFR) AmericanOrdered By: Justice Johnson on 02-18-2024 Estimated GFR (MDRD) Amer 101 mL/min >60 [facility] Comment on above: GFR Calc Glomerular filtration rate ( GFR) estimationOrdered By: Justice Johnson on 02-18-2024 Estimated GFR (MDRD) Non-Af Amer 83 mL/min >60 [facility] Comment on above: Non- GFR Calc GFR/1.73 sq M.predicted among non-blacks MDRD (S/P/Bld) [Vol rate/Area] 83 mL/min/{1.73_m2} >60 [facility] Comment on above: Non- GFR Calc Glucose measurementOrdered B y: Justice Johnson on 02-18-2024 Glucose [Mass/Vol] 131 mg/dL High 74-106 [facility] Comment on above: Fasting Glucose resu lt greater than or equal to 126 mg/dL suggests DIABETES MELLITUS per A.D.A. criteria. PSA,Total - Annual Screenon 02-18-2024 PSA,TOT SCREEN 3.70 ng/mL Normal 0.00-4.00 [facility] Comment on above: Result Comment: This test was performed using the TPSA assay method for the [employer] chemistry system. Values obtained with different assay methods cannot be used interchangably. When changing PSA assays in the course of monitoring a patient, additional sequential testing should be carried out to confirm baseline values. Performed By: #### L 501.9910, L500.2500 ####[facility] [address] [place], [address] Potassium measurementOrdered By: Justice Johnson on 02-18-2024 Potassium [Moles/Vol] 4.1 mmol/L 3.5-5.1 [facility] Screening prostate specific antigen (PSA) measurementOrdered By: Justice Johnson on 02-18-2024 Prostate Specific Antigen Screen 3.70 ng/mL 0.00-4.00 [facility] Comment on above: This test was perfor med using the TPSA assay method for [employer] chemistry system. Values obtained with differentassay methods cannot be used interchangably.When changing PSA assays in the course of monitoring apatient, additional sequential testing should be carriedout to confirm baseline values. Serum anion gap measurementO rdered By: Justice Johnson on 02-18-2024 Anion gap [Moles/Vol] 4 mmol/L Low 5-15 [facility] Serum or plasma calcium heather urement (mass/volume)Ordered By: Justice Johnson on 02-18-2024 Calcium [Mass/Vol] 8.9 mg/dL 8.5-10.1 [facility] Serum or plasma creatinine m easurement (mass/volume)Ordered By: Justice Johnson on 02-18-2024 Creatinine [Mass/Vol] 0.92 mg/dL 0.70-1.30 [facility] Comment on above: The validity of the calculated GFR & GFRAA in patients over 70 years has not been determined. Clinical correlation is essential. Serum or plasma urea nitroge n measurement (mass/volume)Ordered By: Justice Johnson on 02-18-2024 Urea nitrogen [Mass/Vol] 16 mg/dL 7-18 [facility] Sodium levelOrdered By: Justice Johnson on 02-18-2024 Sodium [Moles/Vol] 140 mmol/L 136-145 [facility] Urine Cultureon 01-08-2025 [facility] Staphylococcus epide rmidis [place] Count >100,000 Staphylococcus epidermidis: REACTION cefOXitin Susc Islt Doxycycline Islt GERALD 1 S Clindamycin.induced Susc Islt NEG Gentamicin Islt GERALD <=0.5 S Linezolid Islt GERALD 2 S Nitrofurantoin Islt GERALD <=16 S Oxacillin Susc Islt >=4 R Tetracycline Islt GERALD 2 S TMP SMX Islt GERALD 80 R Vancomycin Islt GERALD 1 S Normal [facility] Comment on above: Performed By: #### M 100.2200 ####[facility] [address] [place], [address] Absolute neutrophil countOrd ered By: Mello Briceño on 02-11-2024 Neutrophils (Bld) [#/Vol] 7.5 10*3/uL 2.0-7.7 [facility] Basic Metabolic Profile (BMP )on 02-11-2024 BUN/CRE 25.4 RATIO High 10-20 [facility] Comment on above: Performed By: #### L 500.2500, L100.0100 ####[facility] [address] [place], [address] CA,Total 9.4 mg/dL Normal 8.5-10.1 [facility] Comment on above: Performed By: #### L 500.2500, L100.0100 ####[facility] [address] [place], [address] Chloride [Moles/Vol] 109 mmol/L High 98-107 [facility] Comment on above: Performed By: #### L 500.2500, L100.0100 ####[facility] [address] [place], [address] CO2 [Moles/Vol] 25.0 mmol/L Normal 21.0-32.0 [facility] Comment on above: Performed By: #### L 500.2500, L100.0100 ####[facility] [address] [place], [address] Creatinine [Mass/Vol] 0.90 mg/dL Normal 0.70-1.30 [facility] Comment on above: Result Comment: The validity of the calculated GFR GFRAA in patients over 70 years has not been determined. Clinical correlation is essential. Performed By: #### L 500.2500, L100.0100 ####[facility] [address] [place], [address] ECRCL 61.22 ml/min Normal [facility] Comment on above: Performed By: #### L 500.2500, L100.0100 ####[facility] [address] [place], [address] EST GFR - AA 103 mL/min Normal >60 [facility] Comment on above: Result Comment: Afri can [place] GFR Calc Performed By: #### L 500.2500, L100.0100 ####[facility] [address] [place], [address] GAP 6 Normal 5-15 [facility] Comment on above: Performed By: #### L 500.2500, L100.0100 ####[facility] [address] [place], [address] GFR/1.73 sq M.predicted among non-blacks MDRD (S/P/Bld) [Vol rate/Area] 85 mL/min/{1.73_m2} Normal >60 [facility] Comment on above: Result Comment: Non- GFR Calc Performed By: #### L 500.2500, L100.0100 ####[facility] [address] [place], [address] Glucose [Mass/Vol] 133 mg/dL High 74-106 [facility] Comment on above: Result Comment: Fast ing Glucose result greater than or equal to 126 mg/dL suggests DIABETES MELLITUS per A.D.A. criteria. Performed By: #### L 500.2500, L100.0100 ####[facility] [address] [place], [address] Potassium [Moles/Vol] 3.6 mmol/L Normal 3.5-5.1 [facility] Comment on above: Performed By: #### L 500.2500, L100.0100 ####[facility] [address] [place], [address] Sodium [Moles/Vol] 140 mmol/L Normal 136-145 [facility] Comment on above: Performed By: #### L 500.2500, L100.0100 ####[facility] [address] [place], [address] Urea nitrogen [Mass/Vol] 23 mg/dL High -18 [facility] Comment on above: Performed By: #### L 500.2500, L100.0100 ####[facility] [address] [place], [address] Basophil percentageOrdered B y: Mello Briceño on 02-11-2024 Basophils/100 WBC (Bld) 0.8 % 0-1 [facility] Bilirubin Test strip Ql (U)O rdered By: Mello Briceño on 02-11-2024 Bilirubin Ql (U) 1 mg/dL High Negative [facility] Comment on above: COLOR OF URINE MAY A FFECT DIPSTICK RESULTS. Blood urea nitrogen (BUN)/cr eatinine ratioOrdered By: Mello Briceño on 02-11-2024 Urea nitrogen/Creatinine [Mass ratio] 25.4 mg/mg High 10-20 [facility] CBC W/Diff, Automatedon Absolute Lymph 1.47 X10 3/uL Normal 0.83-4.51 [facility] Comment on above: Performed By: #### L 500.2500, L100.0100 ####[facility] [address] [place], [address] Absolute Neut 7.5 X10 3/uL Normal 2.0-7.7 [facility] Comment on above: Performed By: #### L 500.2500, L100.0100 ####[facility] [address] [place], [address] Basophils/100 WBC (Bld) 0.8 % Normal 0-1 [facility] Comment on above: Performed By: #### L 500.2500, L100.0100 ####[facility] [address] [place], [address] Eosinophils/100 WBC (Bld) 1.2 % Normal 0-5 [facility] Comment on above: Performed By: #### L 500.2500, L100.0100 ####[facility] [address] [place], [address] Erythrocyte distribution width (RBC) [Ratio] 14.8 % High 11.6-14.6 [facility] Comment on above: Performed By: #### L 500.2500, L100.0100 ####[facility] [address] [place], [address] Hematocrit (Bld) [Volume fraction] 45.0 % Normal 40-54 [facility] Comment on above: Performed By: #### L 500.2500, L100.0100 ####[facility] [address] [place], [address] Hemoglobin (Bld) [Mass/Vol] 16.1 g/dL Normal 13.0-16.5 [facility] Comment on above: Performed By: #### L 500.2500, L100.0100 ####[facility] [address] [place], [address] IG% 0.500 Normal 0.0-0.9 [facility] Comment on above: Result Comment: IG% - Immature Granulocytes (promyelocytes, myelocytes and metamyelocytes) > 1% indicates that a LEFT SHIFT is Present. Performed By: #### L 500.2500, L100.0100 ####[facility] [address] [place], [address] Lymphocytes/100 WBC (Bld) 14.8 % Low 19-41 [facility] Comment on above: Performed By: #### L 500.2500, L100.0100 ####[facility] [address] [place], [address] MCH (RBC) [Entitic mass] 34.3 pg High 27.0-32.0 [facility] Comment on above: Performed By: #### L 500.2500, L100.0100 ####[facility] [address] [place], [address] MCHC (RBC) [Mass/Vol] 35.8 g/dL Normal 32-36 [facility] Comment on above: Performed By: #### L 500.2500, L100.0100 ####[facility] [address] [place], [address] MCV (RBC) [Entitic vol] 95.7 fL High 80-94 [facility] Comment on above: Performed By: #### L 500.2500, L100.0100 ####[facility] [address] [place], [address] Monocytes/100 WBC (Bld) 7.3 % Normal 0-10 [facility] Comment on above: Performed By: #### L 500.2500, L100.0100 ####[facility] [address] [place], [address] Neutrophils/100 WBC (Bld) 75.4 % High 47-70 [facility] Comment on above: Performed By: #### L 500.2500, L100.0100 ####[facility] [address] [place], [address] Nucleated RBC (Bld) [#/Vol] 0 10*3/uL Normal 0-5 [facility] Comment on above: Performed By: #### L 500.2500, L100.0100 ####[facility] [address] [place], [address] Platelet mean volume (Bld) [Entitic vol] 10.7 fL Normal 6.2-12.0 [facility] Comment on above: Performed By: #### L 500.2500, L100.0100 ####[facility] [address] [place], [address] Platelets (Bld) [#/Vol] 350 10*3/uL Normal 150-450 [facility] Comment on above: Performed By: #### L 500.2500, L100.0100 ####[facility] [address] [place], [address] RBC (Bld) [#/Vol] 4.70 10*6/uL Normal 4.6-6.[address] [facility] Comment on above: Performed By: #### L 500.2500, L100.0100 ####[facility] [address] [place], [address] RDW SD 44.0 fl High 35.1-43.9 [facility] Comment on above: Performed By: #### L 500.2500, L100.0100 ####[facility] [address] [place], [address] WBC (Bld) [#/Vol] 10.0 10*3/uL Normal 4.4-11.[address] [facility] Comment on above: Performed By: #### L 500.2500, L100.0100 ####[facility] [address] [place], [address] Calcium oxalate crystals LM Ql (Urine sed)Ordered By: Mello Briceño on 02-11-2024 Urine Calcium Oxalate Crystals RARE /hpf [facility] Carbon dioxide measurementOr dered By: Mello Briceño on 02-11-2024 CO2 [Moles/Vol] 25.0 mmol/L 21.0-32.0 [facility] Chloride measurementOrdered By: Mello Briceño on 02-11-2024 Chloride [Moles/Vol] 109 mmol/L High 98-107 [facility] Emergency Department Summary on 02-11-2024 Emergency Department Summary [facility] Medical Records Department [address] [place] [address] Emergency Department Summary 02/11/24 MR#: [id number] Acct: [id number] Name: RMAONITA EL Rep #: [id number] : 1940 83 From: Mello Briceño DO [...] vomiting. Patient describes his pain as burning. [facility] Medical History Alcohol use Prostate disease Easy [...] the patient's (more content not included)... Normal [facility] Eosinophil percentageOrdered By: Mello Briceño on 02-11-2024 Eosinophils/100 WBC (Bld) 1.2 % 0-5 [facility] Epithelial cells.squamous LM Ql (Urine sed)Ordered By: Mello Briceño on 02-11-2024 Epithelial cells.squamous LM.HPF (Urine sed) [#/Area] 0 /[HPF] 0-5 [facility] Erythrocyte distribution wid th (RBC) [Ratio]Ordered By: Mello Briceño on 02-11-2024 Erythrocyte distribution width (RBC) [Entitic vol] 44.0 fL High 35.1-43.9 [facility] Erythrocyte distribution wid th ratioOrdered By: Mello Briceño on 02-11-2024 Erythrocyte distribution width (RBC) [Ratio] 14.8 % High 11.6-14.6 [facility] Estimated glomerular filtrat ion rate (GFR) AmericanOrdered By: Mello Briceño on 02-11-2024 Estimated GFR (MDRD) Amer 103 mL/min >60 [facility] Comment on above: GFR Calc Estimation of creatinine john aranceOrdered By: Mello rBiceño on 02-11-2024 Estimated Creatinine Clearance Calc 61.22 ml/min [facility] Glomerular filtration rate ( GFR) estimationOrdered By: Mello Briceño on 02-11-2024 Estimated GFR (MDRD) Non-Af Amer 85 mL/min >60 [facility] Comment on above: Non- GFR Calc Glucose Ql (U)Ordered By: Guille Briceño on 02-11-2024 Urine Glucose (UA) Normal mg/dl Normal [facility] Glucose measurementOrdered B y: Mello Briceño on 02-11-2024 Glucose [Mass/Vol] 133 mg/dL High 74-106 [facility] Comment on above: Fasting Glucose resu lt greater than or equal to 126 mg/dL suggests DIABETES MELLITUS per A.D.A. criteria. Hematocrit Auto (Bld) [Volum e fraction]Ordered By: Mello Briceño on 02-11-2024 Hematocrit (Bld) [Volume fraction] 45.0 % 40-54 [facility] Hemoglobin measurementOrdere d By: Mello Briceño on 02-11-2024 Hemoglobin (Bld) [Mass/Vol] 16.1 g/dL 13.0-16.5 [facility] Immature granulocytes/100 WB C Auto (Bld)Ordered By: Mello Briceño on 02-11-2024 Immature granulocytes/100 WBC (Bld) 0.500 % 0.0-0.9 [facility] Comment on above: IG% - Immature Granu locytes (promyelocytes, myelocytes and metamyelocytes) > 1% indicates that a LEFT SHIFT is Present. Ketones Test strip Ql (U)Ord ered By: Mello Briceño on 02-11-2024 Ketones Ql (U) 5 mg/dl High Negative [facility] Lymphocytes Auto (Unsp spec) [#/Vol]Ordered By: Mello Briceño on 02-11-2024 Lymphocytes (Bld) [#/Vol] 1.47 10*3/uL 0.83-4.51 [facility] Lymphocytes/100 WBC Auto (Un sp spec)Ordered By: Mello Briceño on 02-11-2024 Lymphocytes/100 WBC (Bld) 14.8 % Low 19-41 [facility] MCV (mean corpuscular volume ) determinationOrdered By: Mello Briceño on 02-11-2024 MCV (RBC) [Entitic vol] 95.7 fL High 80-94 [facility] Mean corpuscular hemoglobin (MCH) determinationOrdered By: Mello Briceño on 02-11-2024 MCH (RBC) [Entitic mass] 34.3 pg High 27.0-32.0 [facility] Mean corpuscular hemoglobin concentration (MCHC) determinationOrdered By: Mello Briceño on 02-11-2024 MCHC (RBC) [Mass/Vol] 35.8 g/dL 32-36 [facility] Mean platelet volume determi nationOrdered By: Mello Briceño on 02-11-2024 Platelet mean volume (Bld) [Entitic vol] 10.7 fL 6.2-12.0 [facility] Microscopic analysis of urin e for red blood cells (RBC)Ordered By: Mello Briceño on 02-11-2024 Urine RBC > 100 SEEN /hpf 0-5 [facility] Monocyte percentageOrdered B y: Mello Briceño on 02-11-2024 Monocytes/100 WBC (Bld) 7.3 % 0-10 [facility] Mucus LM Ql (Urine sed)Order ed By: Mello Briceño on 02-11-2024 Mucus Ql (Urine sed) 0 SEEN /hpf [facility] Neutrophil percentageOrdered By: Mello Briceño on 02-11-2024 Neutrophils/100 WBC (Bld) 75.4 % High 47-70 [facility] Nitrite Test strip Ql (U)Ord ered By: Mello Briceño on 02-11-2024 Nitrite Ql (U) Positive High Negative [facility] Nucleated red blood cell per centageOrdered By: Mello Briceño on 02-11-2024 Nucleated RBC/100 WBC (Bld) [Ratio] 0 % 0-5 [facility] Platelet countOrdered By: Guille Briecño on 02-11-2024 Platelets (Bld) [#/Vol] 350 10*3/uL 150-450 [facility] Potassium measurementOrdered By: Mello Briceño on 02-11-2024 Potassium [Moles/Vol] 3.6 mmol/L 3.5-5.1 [facility] Protein Test strip Ql (U)Ord ered By: Mello Briceño on 02-11-2024 Protein Ql (U) 100 mg/dl High Negative [facility] RBC Auto (Bld) [#/Vol]Ordere d By: Mello Briceño on 02-11-2024 RBC (Bld) [#/Vol] 4.70 10*6/uL 4.6-6.[address] [facility] Serum anion gap measurementO rdered By: Mello Briceño on 02-11-2024 Anion gap [Moles/Vol] 6 mmol/L 5-15 [facility] Serum or plasma calcium heather urement (mass/volume)Ordered By: Mello Briceño on 02-11-2024 Calcium [Mass/Vol] 9.4 mg/dL 8.5-10.1 [facility] Serum or plasma creatinine m easurement (mass/volume)Ordered By: Mello Briceño on 02-11-2024 Creatinine [Mass/Vol] 0.90 mg/dL 0.70-1.30 [facility] Comment on above: The validity of the calculated GFR & GFRAA in patients over 70 years has not been determined. Clinical correlation is essential. Serum or plasma urea nitroge n measurement (mass/volume)Ordered By: Mello Briceño on 02-11-2024 Urea nitrogen [Mass/Vol] 23 mg/dL High 7-18 [facility] Sodium levelOrdered By: Mello Briceño on 02-11-2024 Sodium [Moles/Vol] 140 mmol/L 136-145 [facility] Urinalysis, Completeon 02-10 BACTERIA 2+ /hpf Normal None Seen [facility] Comment on above: Order Comment: CLEAN CATCH Performed By: #### L 400.0001 #### [facility] [address] [place], [address] CA OX CRYSTAL RARE Normal [facility] Comment on above: Order Comment: CLEAN CATCH Performed By: #### L 400.0001 #### [facility] [address] [place], [address] EPI,SQUAMOUS 0-5 SEEN Normal 0-5 [facility] Comment on above: Order Comment: CLEAN CATCH Performed By: #### L 400.0001 #### [facility] [address] [place], [address] RBC > 100 SEEN Normal 0-5 [facility] Comment on above: Order Comment: CLEAN CATCH Performed By: #### L 400.0001 #### [facility] [address] [place], [address] WBC 50-100 SEEN Normal 0-5 [facility] Comment on above: Order Comment: CLEAN CATCH Performed By: #### L 400.0001 #### [facility] [address] [place], [address] Mucus Ql (Urine sed) 0 SEEN Normal [facility] Comment on above: Order Comment: CLEAN CATCH Performed By: #### L 400.0001 #### [facility] [address] [place], [address] Urine blood detectionOrdered By: Mello Briceño on 02-11-2024 Urine Occult Blood 250 /ul High Negative [facility] Urine clarityOrdered By: Rajwinder Briceño on 02-11-2024 Clarity (U) Cloudy Clear [facility] Urine color determinationOrd ered By: Mello Briceño on 02-11-2024 Color (U) Yellow Yellow [facility] Urine cultureOrdered By: Rajwinder Briceño on 02-11-2024 Bacteria identified Cx Nom (U) Staphylococcus epidermidis Abnormal [facility] Urine leukocyte esterase det ection by dipstickOrdered By: Mello Briceño on 02-11-2024 Leukocyte esterase Test strip Ql (U) 500 /ul High Negative [facility] Urine pHOrdered By: Mello turner on 02-11-2024 pH (U) 6.0 [pH] 5.0 - 8.0 [facility] Urine sediment bacteria coun t by microscopy (number/high power field)Ordered By: Mello Briceño on 02-11-2024 Bacteria LM.HPF (Urine sed) [#/Area] 2 /[HPF] None Seen [facility] Urine specific gravity measu rementOrdered By: Mello Briceño on 02-11-2024 Specific gravity (U) [Rel density] 1.020 1.002-1.030 [facility] Urobilinogen Ql (U)Ordered B y: Mello Briceño on 02-11-2024 Urobilinogen (U) [Mass/Vol] 1 mg/dL High Normal [facility] White blood cell (WBC) count Ordered By: Melol Briceño on 02-11-2024 WBC (Bld) [#/Vol] 10.0 10*3/uL 4.4-11.[address] 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 ER on 01/29 cath was placed and advised for removal in 3-5 days. I did check with urology [facility]24 at [facility]. Patient called Dr Johnson and there first opening was 02/17 and that is why he was calling us for a sooner appointment , patient upset PCP would not remove sooner and declined to arrange his ER follow up Karla Baron APRN.[employer] 02/04/2024 5:40 PM Signed That is fine, [...] Date Reviewed: 02/01/2024 Reviewed by: Gus Sanchez APRN.[employer] - Fully Assessed Reason for Visit: Patient [...] 10/10/2022 D (more content not included)... Normal [facility] CNOVon 02-01-2024 CNOV Office Visit (UCWSTR ) -- RAMONITA EL ([id number]) 1940 M NFR Date Time Provider Department 02/01/24 8:30 AM GUS SANCHEZ [facility] During your visit today, we recorded the following information about you: Temperature Pulse Respiration Blood pressure 97.9 degrees 86/minute 18/minute 107/82 Weight 73.5 kg Gus Sanchez APRN.[employer] 02/01/2024 9:41 AM Signed Subjective HPI Nontoxic-appearing [...] any other injuries. No numbness or tingling. [id number]. No surgeries fractures previously. Past medical history prescription medications allergies reviewed. .Patient presents with: Pain (Shoulder Pain): R shoulder pain x1 day, pushed self out of chair and felt pop PAST MEDICAL HISTORY Diagnosis Date Acute myocardial infarction of anterolateral wall, episode of care unspecified 08/10/06 STENT placed [facility] Alcohol abuse 05/22/2013 Chronic anxiety 10/22/2017 [...] gesture Radius fracture 06/21/[address] [facility] Tobacco abuse 05/22/2013 Urinary calculus, unspecified 01/05 Renal stone right side; 3 episodes with stones altogether with extraction in 1960 PAST SURGICAL HISTORY Procedure Laterality Date ATHERECTOMY, FEMORAL-POPLITEAL 09/28/2009 right COLONOSCOPY 12/26/2023 COLONOSCOPY FLX DX W/COLLJ SPEC WHEN PFRMD 06/21/2015 Colonoscopy CORONARY ENDARTERCOMY OPEN ANY METHOD 08/10/2006 Angioplasty with stent ECHOCARDIOGRAM 11/24/2020 11/25/[address] Peuntes: LV size and LVSF WNL, EF 55%, [...] is not (more content not included)... Normal [facility] XR SHLDR >/=3V AP/LUPE AP/OTH R [...] in the right shoulder as described above. 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 Ammonia Still Operator: PSC Transcribe Date/Time: Feb 01 2024 9:10A Dictated [...] soft tissue swelling. DIVISION OF RADIOLOGY Provider, [facility] - 02/01/2024 * * *Final Report* * [...] in the right shoulder as described above. [facility] Transcribe Date/Time: Feb 01 2024 9:10A Dictated by : ELLIE JOSEPH MD This examination was interpreted and the report reviewed and electronically signed by: ELLIE JOSEPH MD on Feb 01 2024 9:14AM EST [facility] Radiology Study observation (narrative) [facility] XR Shoulder - right 3 ViewsO rdered By: [facility] Provider on 02-01-2024 [facility] Absolute neutrophil countOrd ered By: Lindy Blanco on 01-30-2024 Neutrophils (Bld) [#/Vol] 9.6 10*3/uL High 2.0-7.7 [facility] Basic Metabolic Profile (BMP )on 01-30-2024 BUN/CRE 18.3 RATIO Normal 10-20 [facility] Comment on above: Performed By: #### L 500.2500, L100.0100 ####[facility] [address] [place], [place], [address] CA,Total 9.0 mg/dL Normal 8.5-10.1 [facility] Comment on above: Performed By: #### L 500.2500, L100.0100 ####[facility] [address] [place], [address] Chloride [Moles/Vol] 102 mmol/L Normal 98-107 [facility] Comment on above: Performed By: #### L 500.2500, L100.0100 ####[facility] [address] [place], [address] CO2 [Moles/Vol] 25.0 mmol/L Normal 21.0-32.0 [facility] Comment on above: Performed By: #### L 500.2500, L100.0100 ####[facility] [address] [place], [address] Creatinine [Mass/Vol] 0.98 mg/dL Normal 0.70-1.30 [facility] Comment on above: Result Comment: The validity of the calculated GFR GFRAA in patients over 70 years has not been determined. Clinical correlation is essential. Performed By: #### L 500.2500, L100.0100 ####[facility] [address] [place], [address] ECRCL 56.22 ml/min Normal [facility] Comment on above: Performed By: #### L 500.2500, L100.0100 ####[facility] [address] [place], [address] EST GFR - AA 94 mL/min Normal >60 [facility] Comment on above: Result Comment: Afri can [place] GFR Calc Performed By: #### L 500.2500, L100.0100 ####[facility] [address] [place], [address] GAP 6 Normal 5-15 [facility] Comment on above: Performed By: #### L 500.2500, L100.0100 ####[facility] [address] [place], [address] GFR/1.73 sq M.predicted among non-blacks MDRD (S/P/Bld) [Vol rate/Area] 78 mL/min/{1.73_m2} Normal >60 [facility] Comment on above: Result Comment: Non- GFR Calc Performed By: #### L 500.2500, L100.0100 ####[facility] [address] [place], [address] Glucose [Mass/Vol] 141 mg/dL High 74-106 [facility] Comment on above: Result Comment: Fast ing Glucose result greater than or equal to 126 mg/dL suggests DIABETES MELLITUS per A.D.A. criteria. Performed By: #### L 500.2500, L100.0100 ####[facility] [address] [place], [address] Potassium [Moles/Vol] 4.7 mmol/L Normal 3.5-5.1 [facility] Comment on above: Performed By: #### L 500.2500, L100.0100 ####[facility] [address] [place], [address] Sodium [Moles/Vol] 133 mmol/L Low 136-145 [facility] Comment on above: Performed By: #### L 500.2500, L100.0100 ####[facility] [address] [place], [address] Urea nitrogen [Mass/Vol] 18 mg/dL Normal 7-18 [facility] Comment on above: Performed By: #### L 500.2500, L100.0100 ####[facility] [address] [place], [address] Basophil percentageOrdered B y: Remus Ungur on 01-30-2024 Basophils/100 WBC (Bld) 0.5 % 0-1 [facility] Bilirubin Test strip Ql (U)O rdered By: Remus Ungur on 01-30-2024 Bilirubin Ql (U) Negative Negative [facility] Blood urea nitrogen (BUN)/cr eatinine ratioOrdered By: Remus Ungur on 01-30-2024 Urea nitrogen/Creatinine [Mass ratio] 18.3 mg/mg 10-20 [facility] CBC W/Diff, Automatedon 01-06 Absolute Lymph 1.06 X10 3/uL Normal 0.83-4.51 [facility] Comment on above: Performed By: #### L 500.2500, L100.0100 ####[facility] [address] [place], [address] Absolute Neut 9.6 X10 3/uL High 2.0-7.7 [facility] Comment on above: Performed By: #### L 500.2500, L100.0100 ####[facility] [address] [place], [address] Basophils/100 WBC (Bld) 0.5 % Normal 0-1 [facility] Comment on above: Performed By: #### L 500.2500, L100.0100 ####[facility] [address] [place], [address] Eosinophils/100 WBC (Bld) 0.2 % Normal 0-5 [facility] Comment on above: Performed By: #### L 500.2500, L100.0100 ####[facility] [address] [place], [address] Erythrocyte distribution width (RBC) [Ratio] 13.1 % Normal 11.6-14.6 [facility] Comment on above: Performed By: #### L 500.2500, L100.0100 ####[facility] [address] [place], [address] Hematocrit (Bld) [Volume fraction] 45.2 % Normal 40-54 [facility] Comment on above: Performed By: #### L 500.2500, L100.0100 ####[facility] [address] [place], [address] Hemoglobin (Bld) [Mass/Vol] 15.9 g/dL Normal 13.0-16.5 [facility] Comment on above: Performed By: #### L 500.2500, L100.0100 ####[facility] [address] [place], [address] IG% 0.400 Normal 0.0-0.9 [facility] Comment on above: Result Comment: IG% - Immature Granulocytes (promyelocytes, myelocytes and metamyelocytes) > 1% indicates that a LEFT SHIFT is Present. Performed By: #### L 500.2500, L100.0100 ####[facility] [address] [place], [address] Lymphocytes/100 WBC (Bld) 9.3 % Low 19-41 [facility] Comment on above: Performed By: #### L 500.2500, L100.0100 ####[facility] [address] [place], [address] MCH (RBC) [Entitic mass] 31.2 pg Normal 27.0-32.0 [facility] Comment on above: Performed By: #### L 500.2500, L100.0100 ####[facility] [address] [place], [address] MCHC (RBC) [Mass/Vol] 35.2 g/dL Normal 32-36 [facility] Comment on above: Performed By: #### L 500.2500, L100.0100 ####[facility] [address] [place], [address] MCV (RBC) [Entitic vol] 88.6 fL Normal 80-94 [facility] Comment on above: Performed By: #### L 500.2500, L100.0100 ####[facility] [address] [place], [address] Monocytes/100 WBC (Bld) 5.3 % Normal 0-10 [facility] Comment on above: Performed By: #### L 500.2500, L100.0100 ####[facility] [address] [place], [address] Neutrophils/100 WBC (Bld) 84.3 % High 47-70 [facility] Comment on above: Performed By: #### L 500.2500, L100.0100 ####[facility] [address] [place], [address] Nucleated RBC (Bld) [#/Vol] 0 10*3/uL Normal 0-5 [facility] Comment on above: Performed By: #### L 500.2500, L100.0100 ####[facility] [address] [place], [address] Platelet mean volume (Bld) [Entitic vol] 10.5 fL Normal 6.2-12.0 [facility] Comment on above: Performed By: #### L 500.2500, L100.0100 ####[facility] [address] [place], [address] Platelets (Bld) [#/Vol] 274 10*3/uL Normal 150-450 [facility] Comment on above: Performed By: #### L 500.2500, L100.0100 ####[facility] [address] [place], [address] RBC (Bld) [#/Vol] 5.10 10*6/uL Normal 4.6-6.[address] [facility] Comment on above: Performed By: #### L 500.2500, L100.0100 ####[facility] [address] [place], [address] RDW SD 42.7 fl Normal 35.1-43.9 [facility] Comment on above: Performed By: #### L 500.2500, L100.0100 ####[facility] [address] [place], [address] WBC (Bld) [#/Vol] 11.4 10*3/uL High 4.4-11.[address] [facility] Comment on above: Performed By: #### L 500.2500, L100.0100 ####[facility] [address] [place], [address] Carbon dioxide measurementOr dered By: Lindy Blanco on 01-30-2024 CO2 [Moles/Vol] 25.0 mmol/L 21.0-32.0 [facility] Chloride measurementOrdered By: Lindy Blanco on 01-30-2024 Chloride [Moles/Vol] 102 mmol/L 98-107 [facility] Emergency Department Summary on 01-30-2024 Emergency Department Summary [facility] Medical Records Department [address] [place] [address] Emergency Department Summary 01/30/24 MR#: [id number] Acct: [id number] Name: RAMONITA EL Rep #: [id number] : 1940 83 From: Lindy Blanco DO [...] of a cardiac stent. Patient on Flomax. PFSH PFS Medical History Alcohol use Prostate disease Easy [...] 2+ throughout (more content not included)... Normal [facility] Eosinophil percentageOrdered By: Lindy Blanco on 01-30-2024 Eosinophils/100 WBC (Bld) 0.2 % 0-5 [facility] Epithelial cells.squamous LM Ql (Urine sed)Ordered By: Lindy Blanco on 01-30-2024 Epithelial cells.squamous LM.HPF (Urine sed) [#/Area] 0 /[HPF] 0-5 [facility] Erythrocyte distribution wid th (RBC) [Ratio]Ordered By: Lindy Blanco on 01-30-2024 Erythrocyte distribution width (RBC) [Entitic vol] 42.7 fL 35.1-43.9 [facility] Erythrocyte distribution wid th ratioOrdered By: Lindy Blanco on 01-30-2024 Erythrocyte distribution width (RBC) [Ratio] 13.1 % 11.6-14.6 [facility] Estimated glomerular filtrat ion rate (GFR) AmericanOrdered By: Lindy Blanco on 01-30-2024 Estimated GFR (MDRD) Amer 94 mL/min >60 [facility] Comment on above: GFR Calc Estimation of creatinine john aranceOrdered By: Lindy Blanco on 01-30-2024 Estimated Creatinine Clearance Calc 56.22 ml/min [facility] Glomerular filtration rate ( GFR) estimationOrdered By: Zuleykaus Blanco on 01-30-2024 Estimated GFR (MDRD) Non-Af Amer 78 mL/min >60 [facility] Comment on above: Non- GFR Calc Glucose Ql (U)Ordered By: Krystyna lisa Bella on 01-30-2024 Urine Glucose (UA) Normal mg/dl Normal [facility] Glucose measurementOrdered B y: Lindy Dubonjimi on 01-30-2024 Glucose [Mass/Vol] 141 mg/dL High 74-106 [facility] Comment on above: Fasting Glucose resu lt greater than or equal to 126 mg/dL suggests DIABETES MELLITUS per A.D.A. criteria. Hematocrit Auto (Bld) [Volum e fraction]Ordered By: Lindy Blanco on 01-30-2024 Hematocrit (Bld) [Volume fraction] 45.2 % 40-54 [facility] Hemoglobin measurementOrdere d By: Lindy Blanco on 01-30-2024 Hemoglobin (Bld) [Mass/Vol] 15.9 g/dL 13.0-16.5 [facility] Immature granulocytes/100 WB C Auto (Bld)Ordered By: Lindy Blanco on 01-30-2024 Immature granulocytes/100 WBC (Bld) 0.400 % 0.0-0.9 [facility] Comment on above: IG% - Immature Granu locytes (promyelocytes, myelocytes and metamyelocytes) > 1% indicates that a LEFT SHIFT is Present. Ketones Test strip Ql (U)Ord ered By: Zuleykaus Blanco on 01-30-2024 Ketones Ql (U) Negative Negative [facility] Lymphocytes Auto (Unsp spec) [#/Vol]Ordered By: Lindy Bella on 01-30-2024 Lymphocytes (Bld) [#/Vol] 1.06 10*3/uL 0.83-4.51 [facility] Lymphocytes/100 WBC Auto (Un sp spec)Ordered By: Lindy Bella on 01-30-2024 Lymphocytes/100 WBC (Bld) 9.3 % Low 19-41 [facility] MCV (mean corpuscular volume ) determinationOrdered By: Zuleyka Bella on 01-30-2024 MCV (RBC) [Entitic vol] 88.6 fL 80-94 [facility] Mean corpuscular hemoglobin (MCH) determinationOrdered By: Lindy Blanco on 01-30-2024 MCH (RBC) [Entitic mass] 31.2 pg 27.0-32.0 [facility] Mean corpuscular hemoglobin concentration (MCHC) determinationOrdered By: Lindy Ungjimi on 01-30-2024 MCHC (RBC) [Mass/Vol] 35.2 g/dL 32-36 [facility] Mean platelet volume determi nationOrdered By: Lindy Ungjimi on 01-30-2024 Platelet mean volume (Bld) [Entitic vol] 10.5 fL 6.2-12.0 [facility] Microscopic analysis of urin e for red blood cells (RBC)Ordered By: Lindy Blanco on 01-30-2024 Urine RBC 0 SEEN /hpf 0-5 [facility] Monocyte percentageOrdered B y: Lindy Blanco on 01-30-2024 Monocytes/100 WBC (Bld) 5.3 % 0-10 [facility] Mucus LM Ql (Urine sed)Order ed By: Lindy Blanco on 01-30-2024 Mucus Ql (Urine sed) 0 SEEN /hpf [facility] Neutrophil percentageOrdered By: Lindy Blanco on 01-30-2024 Neutrophils/100 WBC (Bld) 84.3 % High 47-70 [facility] Nitrite Test strip Ql (U)Ord ered By: Lindy Blanco on 01-30-2024 Nitrite Ql (U) Negative Negative [facility] Nucleated red blood cell per centageOrdered By: Lindy Blanco on 01-30-2024 Nucleated RBC/100 WBC (Bld) [Ratio] 0 % 0-5 [facility] Platelet countOrdered By: Krystyna Blanco on 01-30-2024 Platelets (Bld) [#/Vol] 274 10*3/uL 150-450 [facility] Potassium measurementOrdered By: Lindy Blanco on 01-30-2024 Potassium [Moles/Vol] 4.7 mmol/L 3.5-5.1 [facility] Protein Test strip Ql (U)Ord ered By: Lindy Blanco on 01-30-2024 Protein Ql (U) Negative Negative [facility] RBC Auto (Bld) [#/Vol]Ordere d By: Remus Ungjimi on 01-30-2024 RBC (Bld) [#/Vol] 5.10 10*6/uL 4.6-6.[address] [facility] Serum anion gap measurementO rdered By: Remus Ungur on 01-30-2024 Anion gap [Moles/Vol] 6 mmol/L 5-15 [facility] Serum or plasma calcium heather urement (mass/volume)Ordered By: Remus Ungjimi on 01-30-2024 Calcium [Mass/Vol] 9.0 mg/dL 8.5-10.1 [facility] Serum or plasma creatinine m easurement (mass/volume)Ordered By: Remus Bella on 01-30-2024 Creatinine [Mass/Vol] 0.98 mg/dL 0.70-1.30 [facility] Comment on above: The validity of the calculated GFR & GFRAA in patients over 70 years has not been determined. Clinical correlation is essential. Serum or plasma urea nitroge n measurement (mass/volume)Ordered By: Remus Blanco on 01-30-2024 Urea nitrogen [Mass/Vol] 18 mg/dL 7-18 [facility] Sodium levelOrdered By: Zuleykau s Bella on 01-30-2024 Sodium [Moles/Vol] 133 mmol/L Low 136-145 [facility] Urinalysis, Completeon 01-29 BACTERIA 0 SEEN Normal None Seen [facility] Comment on above: Order Comment: BHARATH TER SPECIMEN Performed By: #### L 400.0001 #### [facility] [address] [place], [place], [id number] EPI,SQUAMOUS 0 SEEN Normal 0-5 [facility] Comment on above: Order Comment: BHARATH TER SPECIMEN Performed By: #### L 400.0001 #### [facility] [address] [place], [place], [id number] Mucus Ql (Urine sed) 0 SEEN Normal [facility] Comment on above: Order Comment: BHARATH TER SPECIMEN Performed By: #### L 400.0001 #### [facility] [address] [place], [address] RBC 0 SEEN Normal 0-5 [facility] Comment on above: Order Comment: BHARATH TER SPECIMEN Performed By: #### L 400.0001 #### [facility] [address] [place], [place], [address] WBC 0 SEEN Normal 0-5 [facility] Comment on above: Order Comment: BHARATH TER SPECIMEN Performed By: #### L 400.0001 #### [facility] [address] [place], [place], [address] Urine blood detectionOrdered By: Remus Bella on 01-30-2024 Urine Occult Blood Negative Negative [facility] Urine clarityOrdered By: Rem us Ungjimi on 01-30-2024 Clarity (U) Clear Clear [facility] Urine color determinationOrd ered By: Remus Blanco on 01-30-2024 Color (U) Yellow Yellow [facility] Urine leukocyte esterase det ection by dipstickOrdered By: Remus Bella on 01-30-2024 Leukocyte esterase Test strip Ql (U) Negative Negative [facility] Urine pHOrdered By: Rem Un gur on 01-30-2024 pH (U) 6.0 [pH] 5.0 - 8.0 [facility] Urine sediment bacteria coun t by microscopy (number/high power field)Ordered By: Remus Blanco on 01-30-2024 Bacteria LM.HPF (Urine sed) [#/Area] 0 /[HPF] None Seen [facility] Urine specific gravity measu rementOrdered By: Remus Bella on 01-30-2024 Specific gravity (U) [Rel density] 1.015 1.002-1.030 [facility] Urobilinogen Ql (U)Ordered B y: Remus Ungjimi on 01-30-2024 Urine Urobilinogen Normal mg/dl Normal [facility] White blood cell (WBC) count Ordered By: Remus Ungjimi on 01-30-2024 WBC (Bld) [#/Vol] 11.4 10*3/uL High 4.4-11.[address] [facility] White blood cell countOrdere d By: Remus Ungjimi on 01-30-2024 Urine WBC 0 SEEN /hpf 0-5 [facility] CNOVon 01-21-2024 CNOV Office Visit (FAMPWS ) -- RAMONITA EL ([id number]) 1940 M NFR Date Time Provider Department 01/21/24 1:00 PM DAVE MCCRAY During your visit today, we recorded the following information about you: Pulse Respiration Blood pressure Weight 69/minute 16/minute 162/71 73.5 kg Dave Mccray APRN.HOTEL ASSISTANT GENERAL MANAGER 01/21/2024 1:33 PM Signed Chief Complaint Patient presents with: ER F/U HPI Ramonita El is a 83 year old male who presents here today for ER Follow Up. Patient here for emergency room follow-up. Patient went to [facility] on 01/15 for complaints of bleeding. [...] HYDROXYZINE HCL 25 MG TABLET Dave Mccray APRN.HOTEL ASSISTANT GENERAL MANAGER RTO in 1 months, sooner if needed. This note was partly generated using [employer] voice recognition dictation and may contain some [...] for anxiet (more content not included)... Normal [facility] Emergency Department Summary on 01-16-2024 Emergency Department Summary [facility] Medical Records Department [address] [place] [address] Emergency Department Summary 01/16/24 MR#: [id number] Acct: [id number] Name: RAMONITA EL Rep #: [id number] : 1940 83 From: Toribio Yeh DO [...] he looked down there was blood present [facility] Medical History Alcohol use Prostate disease Easy [...] He reported (more content not included)... Normal [facility] CNOVon 01-02-2024 CNOV Office Visit (GENSWS ) -- RAMONITA EL ([id number]) 1940 M NFR Date Time Provider Department 01/02/24 11:00 AM TOMEKA MCLAUGHLIN During your visit today, we recorded the following information about you: Pulse Blood pressure Weight 65/minute 170/73 72.5 kg Tomeka Mclaughlin APRN.CNP 01/02/2024 11:02 AM Signed FOLLOW UP VISIT - ENDOSCOPY Ramonita El 1940 [id number] REFERRING PHYSICIAN: Star Grande [address] [facility] [address] Ramonita El is a patient I am [...] needed for worsening/no improvement. _ Tomeka Mclaughlin APRN.HOTEL ASSISTANT GENERAL MANAGER Referring Provider: STAR GRANDE [[id number]] Allergies As of Date: 01/02/2024 Noted Allergy [...] Sinus con (more content not included)... Normal [facility] [id number] 12-26-2023 [id number] HNO ID: [id number] Author: DARCY BENNETT RN Service: ? Author Type: Registered Nurse Type: [id number] Filed: 12/26/2023 12:54 Note Text: The patient received a copy of Colonoscopy discharge instructions that contain information for how to contact the physician who performed the procedure and when to seek medical care. Normal [facility] Colonoscopyon 12-26-2023 Colonoscopy [place] [facility] Gastrointestinal Endoscopy Patient Name: Ramonita El Procedure [...] patient. Proce (more content not included)... Normal [facility] EGD Study observation Hans washburn 12-26-2023 [place] [facility] Gastrointestinal Endoscopy Patient Name: Ramonita El Procedure [...] 1 week. Procedure Code(s): --- Professional --- 12221, Esophagogastroduodenoscopy , flexible, transoral; with biopsy, single or multiple G0500, Moderate sedation services provided by the (more content not included)... [facility] Flexible sigmoidoscopy study on 12-26-2023 [facility] Gastrointestinal Endoscopy Patient Name: Ramonita El [...] of t (more content not included)... [facility] HISTORY PHYSICALon HISTORY PHYSICAL HNO ID: [id number] Author: STAR GRANDE MD Service: General Surgery Author Type: Physician Type: H&P Filed: 12/26/2023 10:36 Note Text: HISTORY AND PHYSICAL Ramonita El : 1940 REFERRING PHYSICIAN: Danae Willett [address] [facility] [address] CHIEF COMPLAINT: No chief complaint on file. [...] endoscopy. Last colonoscopy AND EGD 06/[address] [facility] with Dr. Lezama. Sedation: Fentanyl 50 [...] Descending colon, biopsy (D) - Tubular adenoma. [facility] CURRENT MEDICATIONS Current Outpatient Medications Medication Sig [...] gesture Radius fracture 06/21/[address] [facility] Tobacco abuse 05/22/2013 Urinary calculus, unspecified 01/05 [...] W/POSTOP SE (more content not included)... Normal [facility] NURSING PROGon 12-26-2023 NURSING PROG HNO ID: [id number] Author: DARCY BENNETT RN Service: ? Author [...] on left side. No family present. Normal [facility] No Panel Informationon 12-25 Radiology Study observation (narrative) [facility] SURGICAL PATHOLOGYon 024 CASE REPORT Normal [facility] Comment on above: Order Comment: Speci men Type: TISSUE SPECIMENOrdering Facility: [facility] Address: [address] [place] [address] Result Comment: Surg [facility] Pathology Report Case: [id number] Authorizing Provider: Star Grande MD Collected: 12/26/2023 11:55 AM Ordering Location: Ambulatory Surgery Received: 12/26/2023 02:50 PM Pathologist: Brandon Solis MD Specimens: A) - Small Bowel, Duodenum, Biopsy B) - Stomach, Antrum, Biopsy, Antral for H/H C) - Colon, Cecum, Polyp D) - Colon, Ascending Polyp, polyps x2 E) - Colon, Sigmoid, Polyp Performed By: #### S ####[facility] [id number] [address] LABCLIA [id number] [address] FINAL DIAGNOSIS Normal [facility] Comment on above: Order Comment: Speci men Type: TISSUE SPECIMENOrdering Facility: [facility] Address: [address] [place] [address] Result Comment: A. D uodenum, biopsy: - Duodenal mucosa with no significant pathologic changes. B. Stomach, biopsy: - Antral mucosa with minimal chronic inflammation. - No evidence of H. pylori. C. Cecum, polypectomy: - Tubular adenoma. D. Ascending colon, polypectomy: - Fragments of tubular adenoma. E. Sigmoid, polypectomy: - Tubular adenoma. Performed By: #### S ####[facility] LABORATORYIA [id number] [address] LABCLIA [id number] [address] FINAL PERFORMING LAB Normal [facility] Comment on above: Order Comment: Speci men Type: TISSUE SPECIMENOrdering Facility: [facility] Address: [address] [place] [address] Result Comment: Diag nostic interpretation performed at [facility], [address] [facility], [address]IA# [id number] New Media Strategist: Ca Barber M.D. Performed By: #### S ####[facility]ATORYCLIA [id number] [address] LABCLIA [id number] [address] [place] GROSS DESCRIPTION Normal [facility] Comment on above: Order Comment: Speci men Type: TISSUE SPECIMENOrdering Facility: [facility] Address: [address] [place] [address] Result Comment: A. S mall Bowel, Duodenum, [...] 2023 9:23 PM Gross examination performed at [facility], [address] [place] [address] E. Colon, Sigmoid, Polyp Received in formalin is one segment of red-brown polypoid tissue measuring 1.3 x 0.7 x 0.6 cm. No stalk is present. The line of resection is noted. The specimen is bisected and totally submitted in one cassette. Gross examination performed at [facility], [address] [place] [address] December 26, 2023 9:19 PM Performed By: #### S ####[facility]ORATORYCLIA [id number] [address] LABCLIA [id number] [address] [place] Upper GI endoscopy 12-25-2 024 Upper GI endoscopy [place] [facility] Gastrointestinal Endoscopy Patient Name: Ramonita El Procedure [...] 1 week. Procedure Code(s): --- Professional --- 40454, Esophagogastroduodenoscopy , flexible, transoral; with biopsy, single or multiple G0500, Moderate sedation services provided by the same physician or other qualified health post anesthesia care unit nurse performing a gastrointestinal endoscopic service that sedation supports, requiring the presence of an independent trained observer to assist in the monitoring of the patient's level of consciousness and physiological status; initial 15 minutes of intra-service time; patient age 5 years or older (additional time may be reported with 17041, as appropriate) [address], Moderate sedation; each additional 15 minutes intraservice time CPT copyright 202 [employer]. All rights reserved. The codes documented in this report are preliminary and upon financial sales manager review may be revised to meet current [...] Blood Loss: Estimated blood loss: none. Normal [facility] CNOVon 12-06-2023 CNOV Office Visit (GENSWS ) -- RAMONITA EL ([id number]) 1940 M NFR Date Time Provider Department 12/06/23 1:30 PM TOMEKA MCLAUGHLIN During your visit today, we recorded the following information about you: Temperature Pulse Blood pressure Weight 97.1 degrees 69/minute 152/63 74.2 kg Height 1.702 m Tomeka Mclaughlin APRN.HOTEL ASSISTANT GENERAL MANAGER 12/06/2023 2:19 PM Signed HISTORY AND PHYSICAL Ramonita El : 1940 REFERRING PHYSICIAN: Danae Willett [address] [facility] [address] CHIEF COMPLAINT: No chief complaint on file. [...] endoscopy. Last colonoscopy AND EGD 06/2015 at [facility] with Dr. Lezama. Sedation: Fentanyl 50 [...] Descending colon, biopsy (D) - Tubular adenoma. [facility] Current Outpatient Medications Medication Sig metoprolol tartrate, [...] episode of care unspecified 08/10/06 STENT placed [facility] Alcohol abuse 05/22/2013 Chronic anxiety 10/22/2017 [...] gesture Radius fracture 06/21/[address] [facility] Tobacco abuse 05/22/2013 Urinary calculus, unspecified 01/05 [...] fragment PA (more content not included)... Normal [facility] CNPNon 12-06-2023 CNPN Telephone ([employer]) -- RAMONITA EL ([id number]) 1940 M NFR Date Time Provider Department 12/06/23 STAR GRANDE GENSWS During your visit today, we recorded the following information about you: Heavenly Perez 12/06/2023 2:03 PM Signed 12-26-2023 Colon/EGD [facility] Allergies As of Date: 12/06/2023 Noted Allergy Reaction DUST MITES 12/13/2006 LIPITOR (ATORVASTATIN) 12/04/2007 Comments: myalgia LISINOPRIL 12/04/2007 Comments: cough PENICILLINS 10/14/2004 4 - Hives PLETAL (CILOSTAZOL) 09/04/2019 14 - Other: See Comments Comments: chest pain PRAVASTATIN 05/10/2015 17 - Myalgia Date Reviewed: 12/06/2023 Reviewed by: Tomeka Mclaughlin APRN.HOTEL ASSISTANT GENERAL MANAGER - Fully Assessed Reason for Visit: Outpatient [...] Diagnosed: 10/10/2022 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 Know that colon screen was positive for blood. Will need a colonoscopy. Nadine Serrano MA 12/03/2023 4:05 PM Signed Pt notified. 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 Diagnosed: 10/10/2022 Vascular disorder of extremity (HCC) [I73.9] 10/10/2022 Diagnosed: 10/10/2022 Encounter Status:Closed by NADINE SERRANO on 12/03/23 [facility] RAMON[facility] ([id number]) 1940 M NFR Date Time Provider Department 12/03/23 Ida HATFIELD During your visit today, we recorded the following information about you: Ravi RinconElas 12/03/2023 4:27 PM Wade Duran is calling Ida Hatfield PA-C today to report a Rectal Problem (Blood in stool) and FYI-No Action Needed Patient states that he has an appointment with a colon doctor on Sunday12-05-23 Patient has been identified by name and birthdate. 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 Patient reports that the tizanidine is not working. Patient has been identified by name and birthdate. Duration of symptoms: N/A Person calling: self Call patient at: at home [phone] (home) Was an appointment scheduled: No Closing [...] left [D3 (more content not included)... Normal [facility] Hemoccult Stl Ql IAon 2023 Lower GI hemoglobin IA Ql (Stl) Positive Abnormal Negative [facility] Comment on above: Order Comment: Speci men Type: STOOL SPECIMENOrdering Facility: [facility] Address: [address] [place] [address] Performed By: #### 2 9771-3 ####[facility] LABCLIA [id number] [place] [address] [place] CNOVon 11-27-2023 CNOV Office Visit (FAMPWS ) -- RAMONITA EL ([id number]) 1940 M NFR Date Time Provider Department 11/27/23 11:00 AM KARLA BARON During your visit today, we recorded the following information about you: Pulse Respiration Blood pressure Weight 59/minute 16/minute 136/82 73.5 kg Karla Baron APRN.HOTEL ASSISTANT GENERAL MANAGER 11/28/2023 8:31 AM Signed This is a [...] gesture Radius fracture 06/21/[address] [facility] Tobacco abuse 05/22/2013 Urinary calculus, unspecified 01/05 [...] Comment: Socially (more content not included)... Normal [facility] CBC W Auto Differential pane l (Bld)on 11-23-2023 Basophils (Bld) [#/Vol] 0.08 10*3/uL Normal <0.11 [facility] Comment on above: Order Comment: Speci men Type: BLOOD SPECIMENOrdering Facility: [facility] Address: [address] [place] [address] Performed By: #### 5 7021-8 ####[facility] LABCLIA [id number] [place] [address] [place] Basophils/100 WBC (Bld) 0.9 % Normal [facility] Comment on above: Order Comment: Speci men Type: BLOOD SPECIMENOrdering Facility: [facility] Address: [address] [place] [address] Performed By: #### 5 7021-8 ####[facility] LABCLIA [id number] [place] [address] [place] Differential cell count method Nom (Bld) Auto Normal [facility] Comment on above: Order Comment: Speci men Type: BLOOD SPECIMENOrdering Facility: [facility] Address: [address] [place] [address] Performed By: #### 5 7021-8 ####[facility] LABCLIA [id number] [place] [address] [place] Eosinophils (Bld) [#/Vol] 0.09 10*3/uL Normal <0.46 [facility] Comment on above: Order Comment: Speci men Type: BLOOD SPECIMENOrdering Facility: [facility] Address: [address] [place] [address] Performed By: #### 5 7021-8 ####[facility] LABCLIA [id number] [place] [address] [place] Eosinophils/100 WBC (Bld) 1.0 % Normal [facility] Comment on above: Order Comment: Speci men Type: BLOOD SPECIMENOrdering Facility: [facility] Address: [address] [place] [address] Performed By: #### 5 7021-8 ####[facility] LABCLIA [id number] [place] [address] [place] Erythrocyte distribution width (RBC) [Ratio] 13.5 % Normal 11.5-15.0 [facility] Comment on above: Order Comment: Speci men Type: BLOOD SPECIMENOrdering Facility: [facility] Address: [address] [place] [address] Performed By: #### 5 7021-8 ####[facility] LABCLIA [id number] [place] [address] [place] Hematocrit (Bld) [Volume fraction] 48.0 % Normal 39.0-51.0 [facility] Comment on above: Order Comment: Speci men Type: BLOOD SPECIMENOrdering Facility: [facility] Address: [address] [place] [address] Performed By: #### 5 7021-8 ####[facility] LABCLIA [id number] [place] [address] [place] Hemoglobin (Bld) [Mass/Vol] 16.3 g/dL Normal 13.0-17.0 [facility] Comment on above: Order Comment: Speci men Type: BLOOD SPECIMENOrdering Facility: [facility] Address: [address] [place] [address] Performed By: #### 5 7021-8 ####[facility] LABCLIA [id number] [place] [id number] [place] Immature granulocytes (Bld) [#/Vol] 10*3/uL Normal <0.10 [facility] Comment on above: Order Comment: Speci men Type: BLOOD SPECIMENOrdering Facility: [facility] Address: [address] [place] [address] Performed By: #### 5 7021-8 ####[facility] LABCLIA [id number] [place] [address] [place] Immature granulocytes/100 WBC (Bld) 0.2 % Normal [facility] Comment on above: Order Comment: Speci men Type: BLOOD SPECIMENOrdering Facility: [facility] Address: [address] [place] [address] Performed By: #### 5 7021-8 ####[facility] LABCLIA [id number] [place] [address] [place] Lymphocytes (Bld) [#/Vol] 1.62 10*3/uL Normal 1.00-4.00 [facility] Comment on above: Order Comment: Speci men Type: BLOOD SPECIMENOrdering Facility: [facility] Address: [address] [place] [address] Performed By: #### 5 7021-8 ####[facility] LABCLIA [id number] [place] [address] [place] Lymphocytes/100 WBC (Bld) 17.8 % Normal [facility] Comment on above: Order Comment: Speci men Type: BLOOD SPECIMENOrdering Facility: [facility] Address: [address] [place] [address] Performed By: #### 5 7021-8 ####[facility] LABCLIA [id number] [place] [address] [place] MCH (RBC) [Entitic mass] 31.2 pg Normal 26.0-34.0 [facility] Comment on above: Order Comment: Speci men Type: BLOOD SPECIMENOrdering Facility: [facility] Address: [address] [place] [address] Performed By: #### 5 7021-8 ####[facility] LABCLIA [id number] [place] [address] [place] MCHC (RBC) [Mass/Vol] 34.0 g/dL Normal 30.5-36.0 [facility] Comment on above: Order Comment: Speci men Type: BLOOD SPECIMENOrdering Facility: [facility] Address: [address] [place] [address] Performed By: #### 5 7021-8 ####[facility] LABIA [id number] [place] [address] [place] LAURA MCV (RBC) [Entitic vol] 92.0 fL Normal 80.0-100.0 [facility] Comment on above: Order Comment: Speci men Type: BLOOD SPECIMENOrdering Facility: [facility] Address: [address] [place] [address] Performed By: #### 5 7021-8 ####[facility] LABIA [id number] [place] [address] [place] Monocytes (Bld) [#/Vol] 0.84 10*3/uL Normal <0.87 [facility] Comment on above: Order Comment: Speci men Type: BLOOD SPECIMENOrdering Facility: [facility] Address: [address] [place] [address] Performed By: #### 5 7021-8 ####[facility] LABCLIA [id number] [place] [address] [place] Monocytes/100 WBC (Bld) 9.2 % Normal [facility] Comment on above: Order Comment: Speci men Type: BLOOD SPECIMENOrdering Facility: [facility] Address: [address] [place] [address] Performed By: #### 5 7021-8 ####[facility] LABCLIA [id number] [place] [address] [place] Neutrophils (Bld) [#/Vol] 6.45 10*3/uL Normal 1.45-7.50 [facility] Comment on above: Order Comment: Speci men Type: BLOOD SPECIMENOrdering Facility: [facility] Address: [address] [place] [address] Performed By: #### 5 7021-8 ####[facility] LABCLIA [id number] [place] [address] [place] Neutrophils/100 WBC (Bld) 70.9 % Normal [facility] Comment on above: Order Comment: Speci men Type: BLOOD SPECIMENOrdering Facility: [facility] Address: [address] [place] [address] Performed By: #### 5 7021-8 ####[facility] LABCLIA [id number] [place] [address] [place] Nucleated RBC (Bld) [#/Vol] 10*3/uL Normal <0.01 [facility] Comment on above: Order Comment: Speci men Type: BLOOD SPECIMENOrdering Facility: [facility] Address: [address] [place] [address] Performed By: #### 5 7021-8 ####[facility] LABCLIA [id number] [place] [address] [place] Nucleated RBC/100 WBC (Bld) [Ratio] 0.0 /100 WBC Normal [facility] Comment on above: Order Comment: Speci men Type: BLOOD SPECIMENOrdering Facility: [facility] Address: [address] [place] [address] Performed By: #### 5 7021-8 ####[facility] LABCLIA [id number] [address] [address] [place] Platelet mean volume (Bld) [Entitic vol] 11.7 fL Normal 9.0-12.7 [facility] Comment on above: Order Comment: Speci men Type: BLOOD SPECIMENOrdering Facility: [facility] Address: [address] [place] [address] Performed By: #### 5 7021-8 ####[facility] LABCLIA [id number] [place] [address] [place] Platelets (Bld) [#/Vol] 254 10*3/uL Normal 150-400 [facility] Comment on above: Order Comment: Speci men Type: BLOOD SPECIMENOrdering Facility: [facility] Address: [address] [place] [address] Performed By: #### 5 7021-8 ####[facility] LABCLIA [id number] [place] [address] [place] RBC (Bld) [#/Vol] 5.22 10*6/uL Normal 4.20-6.00 [facility] Comment on above: Order Comment: Speci men Type: BLOOD SPECIMENOrdering Facility: [facility] Address: [address] [place] [address] Performed By: #### 5 7021-8 ####[facility] LABIA [id number] [place] [address] [place] WBC (Bld) [#/Vol] 9.10 10*3/uL Normal 3.70-11.00 [facility] Comment on above: Order Comment: Speci men Type: BLOOD SPECIMENOrdering Facility: [facility] Address: [address] [place] [address] Performed By: #### 5 7021-8 ####[facility] LABIA [id number] [place] [address] [place] CNOVon 09-10-2023 CNOV Office Visit (ORTHWS ) -- RAMONITA EL ([id number]) 1940 M NFR Date Time Provider Department [...] Diagnosed: 10/10/2022 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 [address] Dept: [phone] Dept August 27, 2023 CHIEF COMPLAINT: New [...] Nilesh Mays MD Referring Provider: Ida HATFIELD [[id number]] Allergies As of Date: 08/27/2023 Noted Allergy Reaction DUST MITES 12/13/2006 LIPITOR (ATORVASTATIN) 12/04/2007 Comments: myalgia LISINOPRIL 12/04/2007 Comments: cough PENICILLINS 10/14/2004 4 - Hives PLETAL (CILOSTAZOL) 09/04/2019 14 - Other: See Comments Comments: chest pain PRAVASTATIN 05/10/2015 17 - Myalgia Date Reviewed: 08/27/2023 Reviewed by: Nilesh Mays MD - Fully Assessed Reason for Visit: New [[id number]] Dupuytren's contracture left hand [Other] Cmt: Referred by Dayne Hatfield Last seen by Dr. Mays on 02/01/12 S/P needle aponeurotomy left ring finger Visit Diagnosis:Dupuytren's cont (more content not included)... Normal [facility] XR Chest PA and Lateralon IMPRESSION: Bibasilar atelectasis/scarring. Ammonia Still Operator: PSCB Transcribe Date/Time: Feb 02 2023 8:43A Dictated by : ELLIE JOSEPH MD This examination was interpreted and the report reviewed and electronically signed by: ELLIE JOSEPH MD on Feb 02 2023 8:45AM [facility] DIVISION OF RADIOLOGY * * *Final Report* [...] shows degenerative changes. DIVISION OF RADIOLOGY Provider, Suyapa Betina crews [place] - 02/02/2023 * * *Final Report* * [...] shows degenerative changes. IMPRESSION IMPRESSION: Bibasilar atelectasis/scarring. Ammonia Still Operator: JUANCARLOS Transcribe Date/Time: Feb 02 2023 8:43A Dictated by : ELLIE JOSEPH MD This examination was interpreted and the report reviewed and electronically signed by: ELLIE JOSEPH MD on Feb 02 2023 8:45AM [facility] Radiology Study observation (narrative) [facility] XR Chest PA and LateralOrder ed By: Cc Provider on 02-02-2023 [facility] XR Lumbar spine 3 Viewson IMPRESSION: DEGENERATIVE CHANGE AND ALIGNMENT ABNORMALITIES DESCRIBED Ammonia Still Operator: [facility] Transcribe Date/Time: Oct 11 2022 2:10P Dictated by : STACY MELLO MD This examination was interpreted and the report reviewed and electronically signed by: STACY MELLO MD on Oct 11 2022 2:13PM [facility] DIVISION OF RADIOLOGY * * *Final Report* [...] bony abnormality [facility]OLOGY [facility] 10/11/2022 * * *Final Report* * [...] IMPRESSION: DEGENERATIVE CHANGE AND ALIGNMENT ABNORMALITIES DESCRIBED Ammonia Still Operator: PSCB Transcribe Date/Time: Oct 11 2022 2:10P Dictated by : STACY MELLO MD This examination was interpreted and the report reviewed and electronically signed by: STACY MELLO MD on Oct 11 2022 2:13PM EST [facility] XR Lumbar spine 3 ViewsOrder ed By: Ccf Provider on 10-11-2022 [facility] XR Lumbar spine 3 Viewson Radiology Study observation (narrative) [facility] Basophil percentageOrdered B y: Willis Mera on 09-08-2022 Basophil percentage < 0.9 mg/dL 0.70-1.30 [facility] No Panel InformationOrdered By: Willis Mera on 09-08-2022 Bedside Estimated GFR (eGFR) > 60.0000 mL/min >60 [facility] STREP A MOLECULAR (POC)on Procedural Control Valid [facility] Strep A (POCT) Negative Negative [facility] No Panel Informationon 01-01 Ethyl Alcohol Level < 3.0 mg/dL [facility] Work Phone: Comment on above: The serum:whole bloo d ethanol ratio is approximately 1.14and varies slightly with hematocrit. Medical Alcohol reference interval and critical value innon-tolerant individuals; 50 - 100 Impairment 100 Intoxication 100 - 250 Severe Poisoning 250 - 400 Deep/possible fatal coma Absolute lymphocyte counton 12-31-2021 Lymphocytes Auto (Unsp spec) [#/Vol] 0.95 10*3/uL 0.83-4.51 [facility] Work Phone: Basophil percentageon 2021 Basophils/100 WBC (Bld) 0.5 % 0-1 [facility] Work Phone: Bilirubin [Mass/Vol] 0.40 mg/dL 0.20-1.00 [facility] Work Phone: [phone] Comment on above: For patients on eltr ombopag therapy, use of Dimension [place] TBIL is not recommended. Chloride [Moles/Vol] 107 mmol/L 98-107 [facility] Work Phone: Eosinophils/100 WBC (Bld) 0.3 % 0-5 [facility] Work Phone: Glucose [Mass/Vol] 150 mg/dL 74-106 [facility] Work Phone: Comment on above: Fasting Glucose resu lt greater than or equal to 126 mg/dL suggests DIABETES MELLITUS per A.D.A. criteria. Neutrophils (Bld) [#/Vol] 11.6 10*3/uL 2.0-7.7 [facility] Work Phone: Neutrophils/100 WBC (Bld) 87.9 % 47-70 [facility] Work Phone: Potassium [Moles/Vol] 3.6 mmol/L 3.5-5.1 [facility] Work Phone: Protein [Mass/Vol] 6.7 g/dL 6.4-8.2 [facility] Work Phone: Sodium [Moles/Vol] 141 mmol/L 136-145 [facility] Work Phone: WBC (Bld) [#/Vol] 13.2 10*3/uL 4.4-11.[address] [facility] Work Phone: Blood erythrocytes count (nu mber/volume)on 12-31-2021 RBC (Bld) [#/Vol] 4.96 10*6/uL 4.6-6.[address] [facility] Work Phone: Blood hemoglobin measurement (mass/volume)on 12-31-2021 Hemoglobin (Bld) [Mass/Vol] 16.7 g/dL 13.0-16.5 [facility] Work Phone: Blood lymphocytes/100 leukoc yteson 12-31-2021 Lymphocytes/100 WBC (Bld) 7.2 % 19-41 [facility] Work Phone: [phone] Blood monocytes/100 leukocyt eson 12-31-2021 Monocytes/100 WBC (Bld) 3.7 % 0-10 [facility] Work Phone: Blood platelet mean volumeon 12-31-2021 Platelet mean volume (Bld) [Entitic vol] 10.9 fL 6.2-12.0 [facility] Work Phone: Determination of erythrocyte mean corpuscular volume (MCV)on 12-31-2021 MCV (RBC) [Entitic vol] 91.5 fL 80-94 [facility] Work Phone: Hematocrit Auto (Bld) [Volum e fraction]on 12-31-2021 Hematocrit (Bld) [Volume fraction] 45.4 % 40-54 [facility] Work Phone: Laboratory - Chemistry and C hemistry - challengeon 12-31-2021 ALP [Catalytic activity/Vol] 85 U/L 45-117 [facility] Work Phone: ALT [Catalytic activity/Vol] 27 U/L 16-61 [facility] Work Phone: CO2 [Moles/Vol] 23.0 mmol/L 21.0-32.0 [facility] Work Phone: Globulin (S) [Mass/Vol] 3.3 g/dL 2.2-4.2 [facility] Work Phone: Urea nitrogen/Creatinine [Mass ratio] 20.0 mg/mg 10-20 [facility] Work Phone: Laboratory - Drug toxicology on 12-31-2021 Amphetamines Ql (U) Negative <1000 ng/mL [facility] Work Phone: Benzodiazepines Ql (U) Negative < 200 ng/mL [facility] Work Phone: Cannabinoids Screen Ql (U) Negative < 50 ng/mL [facility] Work Phone: Cocaine Ql (U) Negative < 300 ng/mL [facility] Work Phone: Opiates Ql (U) Negative < 300 ng/mL [facility] Work Phone: Laboratory - Hematology and Cell countson 12-31-2021 Erythrocyte distribution width (RBC) [Entitic vol] 41.6 fL 35.1-43.9 [facility] Work Phone: Erythrocyte distribution width (RBC) [Ratio] 12.5 % 11.6-14.6 [facility] Work Phone: Immature granulocytes/100 WBC (Bld) 0.400 % 0.0-0.9 [facility] Work Phone: Comment on above: IG% - Immature Granu locytes (promyelocytes, myelocytes and metamyelocytes) > 1% indicates that a LEFT SHIFT is Present. MCH (RBC) [Entitic mass] 33.7 pg 27.0-32.0 [facility] Work Phone: Nucleated RBC/100 WBC (Bld) [Ratio] 0 % 0-5 [facility] Work Phone: MCHC Auto (RBC) [Mass/Vol]on 12-31-2021 MCHC (RBC) [Mass/Vol] 36.8 g/dL 32-36 [facility] Work Phone: No Panel Informationon 12-31 MDMA (Ecstasy) Screen Negative < 500 ng/mL [facility] Work Phone: Urine Barbiturates Screen Negative < 200 ng/mL [facility] Work Phone: Urine Drug Screen Comment [facility] Work Phone: Comment on above: CONFIRMATORY [...] Methadone Screen Negative < 300 ng/mL [facility] Work Phone: Estimated Creatinine Clearance Calc 63.42 ml/min [facility] Work Phone: Estimated GFR (MDRD) Amer 92 mL/min >60 [facility] Work Phone: Comment on above: GFR Calc Estimated GFR (MDRD) Non-Af Amer 76 mL/min >60 [facility] Work Phone: Comment on above: Non- GFR Calc Platelets bldon 12-31-2021 Platelets (Bld) [#/Vol] 213 10*3/uL 150-450 [facility] Work Phone: Serum or plasma albumin heather urement (mass/volume)on 12-31-2021 Albumin [Mass/Vol] 3.4 g/dL 3.2-5.0 [facility] Work Phone: Serum or plasma albumin/glob ulin mass ratioon 12-31-2021 Albumin/Globulin [Mass ratio] 1.0 {ratio} 0.9-2.4 [facility] Work Phone: Serum or plasma calcium heather urement (mass/volume)on 12-31-2021 Calcium [Mass/Vol] 9.4 mg/dL 8.5-10.1 [facility] Work Phone: Serum or plasma creatinine m easurement (mass/volume)on 12-31-2021 Creatinine [Mass/Vol] 1.00 mg/dL 0.70-1.30 [facility] Work Phone: Comment on above: The validity of the calculated GFR & GFRAA in patients over 70 years has not been determined. Clinical correlation is essential. Serum or plasma urea nitroge n measurement (mass/volume)on 12-31-2021 Urea nitrogen [Mass/Vol] 20 mg/dL 7-18 [facility] Work Phone: Thin prep Papanicolaou smear with manual screeningon 12-31-2021 Thin prep Papanicolaou smear with manual screening 18 U/L 15-37 [facility] Work Phone: Thin prep Papanicolaou smear with manual screening 11 5-15 [facility] Work Phone: Urine phencyclidine (PCP) de tectionon 12-31-2021 Phencyclidine Ql (U) Negative < 25 ng/mL [facility] Work Phone: Vital Signs Date Time Vital Sign Value Performing Clinician Facility 09-03-2024 15:40-0400 Body temperature 98.7 [degF] Karla GÓMEZC Work Phone: [facility] 09-03-2024 15:40-0400 Body weight 69.39 kg Karla GÓMEZC Work Phone: [facility] 09-03-2024 15:40-0400 Diastolic blood pressure 67 mm[Hg] Karla Haagen MANAGER [employer] Work Phone: 7(806)307-0579[address] [place] [address] 09-03-2024 15:40-0400 Heart rate 75 /min Karla Haagen MANAGER [employer] Work Phone: 1(240)659-308870 [place] [address] 09-03-2024 15:40-0400 Respiratory rate 18 /min Karla Haagen MANAGER [employer] Work Phone: 9(370)486-059970 [place] [address] 09-03-2024 15:40-0400 SaO2% (BldA) [Mass fraction] 96 % Karla Haagen MANAGER [employer] Work Phone: 9(819)639-830370 [place] [address] 09-03-2024 15:40-0400 Systolic blood pressure 137 mm[Hg] Karla Haagen MANAGER [employer] Work Phone: 0(965)770-227770 [place] [address] 08-25-2024 09:40-0400 Body height 172.72 cm Karla Haagen MANAGER [employer] Work Phone: 5(261)356-823570 [place] [address] 08-25-2024 09:40-0400 Body weight 68.94 kg Karla Haagen MANAGER [employer] Work Phone: 6(195)592-698670 [place] [address] 08-22-2024 08:42-0400 Body mass index (BMI) [Ratio] 23.1 kg/m2 Karla Haagen MANAGER [employer] Work Phone: 8(827)565-322770 [place] [address] 08-04-2024 13:45-0400 Body height 172.72 cm Karla Haagen MANAGER [employer] Work Phone: 3(530)172-051870 [place] [address] 08-04-2024 13:45-0400 Body mass index (BMI) [Ratio] 24 kg/m2 Karla Haagen MANAGER [employer] Work Phone: 3(873)876-007070 [place] [address] 08-04-2024 13:45-0400 Body weight 71.83 kg Karla Haagen MANAGER [employer] Work Phone: 5(548)206-553470 [place] [address] 07-30-2024 13:33-0400 Diastolic blood pressure 75 mm[Hg] Karla Haagen MANAGER [employer] Work Phone: 4(599)637-549370 [place] [address] 07-30-2024 13:33-0400 Systolic blood pressure 147 mm[Hg] Karla Haagen MANAGER [employer] Work Phone: 4(782)251-974870 [place] [address] 07-30-2024 13:20-0400 Body height 172.72 cm Karla Haagen MANAGER [employer] Work Phone: 7(802)876-255770 [place] [address] 07-30-2024 13:20-0400 Body mass index (BMI) [Ratio] 23.1 kg/m2 Karla Haagen MANAGER [employer] Work Phone: 9(778)368-337870 [place] [address] 07-30-2024 13:20-0400 Body weight 68.94 kg Karla Haagen MANAGER [employer] Work Phone: 5(486)176-386170 [place] [address] 07-30-2024 13:20-0400 Heart rate 76 /min Karla Haagen MANAGER [employer] Work Phone: 9(461)248-340570 [place] [address] 07-30-2024 13:20-0400 Respiratory rate 16 /min Karla Haagen MANAGER [employer] Work Phone: 0(935)137-131070 [place] [address] 07-29-2024 07:27-0400 Body temperature 98 [degF] Karla Haagen MANAGER [employer] Work Phone: 1(211)621-420070 [place] [address] 07-29-2024 07:27-0400 Diastolic blood pressure 87 mm[Hg] Karla Haagen MANAGER [employer] Work Phone: 4(449)625-762270 [place] [address] 07-29-2024 07:27-0400 Heart rate 62 /min Karla Haagen MANAGER [employer] Work Phone: 2(110)762-758670 [place] [address] 07-29-2024 07:27-0400 Respiratory rate 18 /min Karla Haagen MANAGER [employer] Work Phone: 1(321)757-192770 [place] [address] 07-29-2024 07:27-0400 SaO2% (BldA) [Mass fraction] 98 % Karla Haagen MANAGER [employer] Work Phone: 8(723)341-380570 [place] [address] 07-29-2024 07:27-0400 Systolic blood pressure 149 mm[Hg] Karla Haagen MANAGER [employer] Work Phone: 6(557)887-599970 [place] [address] 07-29-2024 06:16-0400 Body height 172.72 cm Karla Haagen MANAGER [employer] Work Phone: 9(697)013-547570 [place] [address] 07-29-2024 06:16-0400 Body mass index (BMI) [Ratio] 23.1 kg/m2 Karla Haagen MANAGER [employer] Work Phone: 8(220)298-680670 [place] [address] 07-29-2024 06:16-0400 Body weight 69 kg Karla Haagen MANAGER [employer] Work Phone: 7(255)121-333270 [place] [address] 07-17-2024 14:05-0400 Body temperature 9.4 [degF] Karla Haagen MANAGER [employer] Work Phone: 5(448)882-240670 [place] [address] 07-17-2024 14:05-0400 Body weight 73.02 kg Karla Haagen MANAGER [employer] Work Phone: 0(587)166-741570 [place] [address] 07-17-2024 14:05-0400 Diastolic blood pressure 58 mm[Hg] Karla Haagen MANAGER [employer] Work Phone: 0(628)697-917570 [place] [address] 07-17-2024 14:05-0400 Heart rate 66 /min Karla Haagen MANAGER [employer] Work Phone: 2(264)360-567070 [place] [address] 07-17-2024 14:05-0400 Respiratory rate 16 /min Karla Haagen MANAGER [employer] Work Phone: 5(194)276-816570 [place] [address] 07-17-2024 14:05-0400 SaO2% (BldA) [Mass fraction] 93 % Karla Haagen MANAGER [employer] Work Phone: 2(800)339-981570 [place] [address] 07-17-2024 14:05-0400 Systolic blood pressure 122 mm[Hg] Karla Haagen MANAGER [employer] Work Phone: 3(181)651-477770 [place] [address] 06-03-2024 11:05-0400 Body temperature 98.4 [degF] Karla Haagen MANAGER [employer] Work Phone: 2(071)988-585870 [place] [address] 06-03-2024 11:05-0400 Body weight 73.48 kg Karla Haagen MANAGER [employer] Work Phone: 7(207)979-213070 [place] [address] 06-03-2024 11:05-0400 Diastolic blood pressure 62 mm[Hg] Karla Roperagen MANAGER [employer] Work Phone: [facility] 06-03-2024 11:05-0400 Heart rate 68 /min Karla Haagen MANAGER [employer] Work Phone: [facility] 06-03-2024 11:05-0400 Respiratory rate 16 /min Karla Haagen MANAGER [employer] Work Phone: [facility] 06-03-2024 11:05-0400 SaO2% (BldA) [Mass fraction] 94 % Karla Haagen MANAGER [employer] Work Phone: [facility] 06-03-2024 11:05-0400 Systolic blood pressure 177 mm[Hg] Karla Haagen MANAGER [employer] Work Phone: [facility] 05-27-2024 11:05-0400 Body mass index (BMI) [Ratio] 25.37 kg/m2 Karla Baron MIXING MACHINE TENDER [employer].HOTEL ASSISTANT GENERAL MANAGER Work Phone: [facility] 05-27-2024 11:05-0400 Body weight 73.48 kg Karla Hachayo MIXING MACHINE TENDER [employer].HOTEL ASSISTANT GENERAL MANAGER Work Phone: [facility] 05-27-2024 11:05-0400 Diastolic blood pressure 64 mm[Hg] Karla Haagen MIXING MACHINE TENDER [employer].HOTEL ASSISTANT GENERAL MANAGER Work Phone: [facility] 05-27-2024 11:05-0400 Heart rate 64 /min Karla Haagen MIXING MACHINE TENDER [employer].HOTEL ASSISTANT GENERAL MANAGER Work Phone: [facility] 05-27-2024 11:05-0400 Respiratory rate 16 /min Karla Haagen MIXING MACHINE TENDER [employer].HOTEL ASSISTANT GENERAL MANAGER Work Phone: [facility] 05-27-2024 11:05-0400 SaO2% (BldA) [Mass fraction] 94 % Karla Baron MIXING MACHINE TENDER [employer].HOTEL ASSISTANT GENERAL MANAGER Work Phone: [facility] 05-27-2024 11:05-0400 Systolic blood pressure 138 mm[Hg] Karla Haagen MIXING MACHINE TENDER [employer].HOTEL ASSISTANT GENERAL MANAGER Work Phone: [facility] 05-18-2024 06:55-0400 Body temperature 98 [degF] Karla Baron MANAGER [employer] Work Phone: 6(770)633-153559 [place] [address] 05-18-2024 06:55-0400 Diastolic blood pressure 64 mm[Hg] Karla Roperagen MANAGER [employer] Work Phone: [facility] 05-18-2024 06:55-0400 Heart rate 62 /min Karla Baron MANAGER [employer] Work Phone: [facility] 05-18-2024 06:55-0400 Respiratory rate 16 /min Karla Baron MANAGER [employer] Work Phone: 4(755)404-194370 [place] [address] 05-18-2024 06:55-0400 SaO2% (BldA) [Mass fraction] 92 % Karla Baron MANAGER [employer] Work Phone: 5(922)117-788070 [place] [address] 05-18-2024 06:55-0400 Systolic blood pressure 151 mm[Hg] Karla Baron MANAGER [employer] Work Phone: 6(580)823-715459 [place] [address] 05-18-2024 05:24-0400 Body height 172.72 cm Karla Baron MANAGER [employer] Work Phone: 6(363)815-925470 [place] [address] 05-18-2024 05:24-0400 Body mass index (BMI) [Ratio] 23.8 kg/m2 Karla Baron MANAGER [employer] Work Phone: [facility] 05-18-2024 05:24-0400 Body weight 71 kg Karla Baron MANAGER [employer] Work Phone: [facility] 02-29-2024 14:01-0500 Body mass index (BMI) [Ratio] 25.22 kg/m2 Karla Baron MIXING MACHINE TENDER [employer].HOTEL ASSISTANT GENERAL MANAGER Work Phone: [facility] 02-29-2024 14:01-0500 Body weight 73.03 kg Karla Baron MIXING MACHINE TENDER [employer].HOTEL ASSISTANT GENERAL MANAGER Work Phone: [facility] 02-29-2024 14:01-0500 Diastolic blood pressure 74 mm[Hg] Karla Baron MIXING MACHINE TENDER CORK ROD.HOTEL ASSISTANT GENERAL MANAGER Work Phone: [facility] 02-29-2024 14:01-0500 Heart rate 72 /min Karla Baron MIXING MACHINE TENDER CORK ROD.HOTEL ASSISTANT GENERAL MANAGER Work Phone: [facility] 02-29-2024 14:01-0500 Respiratory rate 16 /min Karla Baron MIXING MACHINE TENDER CORK ROD.HOTEL ASSISTANT GENERAL MANAGER Work Phone: [facility] 02-29-2024 14:01-0500 SaO2% (BldA) [Mass fraction] 95 % Karla Baron MIXING MACHINE TENDER CORK ROD.HOTEL ASSISTANT GENERAL MANAGER Work Phone: [facility] 02-29-2024 14:01-0500 Systolic blood pressure 138 mm[Hg] Karla Baron MIXING MACHINE TENDER CORK ROD.HOTEL ASSISTANT GENERAL MANAGER Work Phone: [facility] 02-11-2024 08:48-0500 Body mass index (BMI) [Ratio] 24.5 kg/m2 Karla Haagen MANAGER FORENSIC-C Work Phone: [facility] 02-11-2024 08:48-0500 Body temperature 98.2 [degF] Karla Haagen MANAGER FORENSIC-C Work Phone: [phone] [place] [address] 02-11-2024 08:48-0500 Body weight 73.3 kg Karla Haagen MANAGER FORENSIC-C Work Phone: [facility] 02-11-2024 08:48-0500 Diastolic blood pressure 68 mm[Hg] Karla Haagen MANAGER FORENSIC-C Work Phone: [facility] 02-11-2024 08:48-0500 Heart rate 69 /min Karla Haagen MANAGER FORENSIC-C Work Phone: [facility] 02-11-2024 08:48-0500 Respiratory rate 18 /min Karla Haagen MANAGER FORENSIC-C Work Phone: [facility] 02-11-2024 08:48-0500 SaO2% (BldA) [Mass fraction] 98 % Karla Haagen MANAGER FORENSIC-C Work Phone: [facility] 02-11-2024 08:48-0500 Systolic blood pressure 173 mm[Hg] Karla Haagen MANAGER FORENSIC-C Work Phone: [facility] 02-01-2024 08:32-0500 Body mass index (BMI) [Ratio] 25.38 kg/m2 [facility] MIXING MACHINE TENDER CORK ROD.HOTEL ASSISTANT GENERAL MANAGER Work Phone: [facility] 02-01-2024 08:32-0500 Body temperature 97.9 [degF] [facility] MIXING MACHINE TENDER CORK ROD.HOTEL ASSISTANT GENERAL MANAGER Work Phone: [facility] 02-01-2024 08:32-0500 Body weight 73.5 kg [facility] MIXING MACHINE TENDER CORK ROD.HOTEL ASSISTANT GENERAL MANAGER Work Phone: [facility] 02-01-2024 08:32-0500 Diastolic blood pressure 82 mm[Hg] [facility] MIXING MACHINE TENDER CORK ROD.HOTEL ASSISTANT GENERAL MANAGER Work Phone: [facility] 02-01-2024 08:32-0500 Heart rate 86 /min [facility] MIXING MACHINE TENDER CORK ROD.HOTEL ASSISTANT GENERAL MANAGER Work Phone: [facility] 02-01-2024 08:32-0500 Respiratory rate 18 /min [facility] MIXING MACHINE TENDER CORK ROD.HOTEL ASSISTANT GENERAL MANAGER Work Phone: [facility] 02-01-2024 08:32-0500 SaO2% (BldA) [Mass fraction] 97 % [facility] MIXING MACHINE TENDER CORK ROD.HOTEL ASSISTANT GENERAL MANAGER Work Phone: [facility] 02-01-2024 08:32-0500 Systolic blood pressure 107 mm[Hg] [facility] MIXING MACHINE TENDER CORK ROD.HOTEL ASSISTANT GENERAL MANAGER Work Phone: [facility] 01-30-2024 12:45-0500 Body temperature 98.2 [degF] Karla Haagen MANAGER FORENSIC-C Work Phone: [facility] 01-30-2024 12:45-0500 Diastolic blood pressure 71 mm[Hg] Karla Haagen MANAGER FORENSIC-C Work Phone: [facility] 01-30-2024 12:45-0500 Heart rate 64 /min Karla Haagen MANAGER FORENSIC-C Work Phone: [facility] 01-30-2024 12:45-0500 Respiratory rate 16 /min Karla Haagen MANAGER FORENSIC-C Work Phone: [facility] 01-30-2024 12:45-0500 SaO2% (BldA) [Mass fraction] 97 % Karla Hachayo MANAGER FORENSIC-C Work Phone: [facility] 01-30-2024 12:45-0500 Systolic blood pressure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 on PA-C Work Phone: [facility] Comment on above: Refill Request Start: 04-10-2022 Telephone encounter Ida Akin Hatfield PA-C Work Phone: [facility] Comment on above: Results Start: 04-07-2022 Telephone encounter Eliseo Ordonez PA Work Phone: [facility] Comment on above: Results Start: 04-06-2022 End: 04-06-2022 Patient encounter procedure Thien Stanton MIXING MACHINE TENDER CORK ROD.HOTEL ASSISTANT GENERAL MANAGER Work Phone: [facility] Comment on above: Suspected COVID-19 v irus infection (Primary Dx); Sore throat; URI, acute; Neck pain; Essential hypertension, benign Start: 12-31-2021 End: 01-01-2022 Emergency department patient visit [facility]-Emergency Department Start: 11-08-2021 Refill Ida Montilla on PA-C Work Phone: Internal Medicine [place] Comment on above: Refill Request Start: 05-20-2021 End: 05-20-2021 Emergency department patient visit [facility]-Emergency Department Start: 11-09-2020 Patient encounter status [facility] Start: 11-09-2020 Preoperative state Karla pressley MANAGER FORENSIC-C Work Phone: [facility] Procedures Date Procedure Procedure Detail Performing Clinician Start: 08-15-2024 Antibody screen Karla Baron NP Comment on above: Order Comment: Surgery Date: 08/18/24 Reason for Laboratory Test PREOP [id number] No N N S CAROTID ENARTERECTOMY Performed By: #### L 100.0500, L500.2500, [id number], BTSPAT #### [facility] [address] [place], [address] Start: 08-15-2024 Cardiovascular stress test using pharmacologic stress agent Karla Baron MANAGER FORENSIC-C Work Phone: Start: 07-29-2024 X-ray of knee, four or more views Bradley Baron MANAGER FORENSIC-C Work Phone: Start: 07-24-2024 X-ray of lumbar spine, two or three views Karla Baron MANAGER FORENSIC-C Work Phone: Start: 07-03-2024 CT angiography of head and neck Karla Baron MANAGER FORENSIC-C Work Phone: Start: 05-18-2024 Plain chest X-ray Karla Baron MANAGER FORENSIC-C Work Phone: Start: 05-18-2024 Estimated creatinine clearance Karla lazaro MANAGER FORENSIC-C Work Phone: Start: 02-18-2024 Measurement of renal function Karla domingo MANAGER FORENSIC-C Work Phone: Comment on above: GFR Calc Start: 02-18-2024 Prostate specific antigen measurement Karla Baron MANAGER FORENSIC-C Work Phone: Comment on above: This test was performed using the TPSA a ssay method for theDimension chemistry system. Values obtained with differentassay methods cannot be used interchangably.When changing PSA assays in the course of monitoring apatient, additional sequential testing should be carriedout to confirm baseline values. Start: 02-11-2024 Urine culture Karla Baron MANAGER FORENSIC-C Work Phone: Start: 02-01-2024 Radex shoulder complete minimum 2 views Gus Sanchez APRN.HOTEL ASSISTANT GENERAL MANAGER Work Phone: Start: 12-26-2023 Colonoscopy flx dx w/collj spec when pfrmd Tomeka Aldridgeir MIXING MACHINE TENDER CORK ROD.HOTEL ASSISTANT GENERAL MANAGER Work Phone: Start: 12-26-2023 Esophagogastroduodenoscopy transoral diagnostic Tomeka Mclaughlin MIXING MACHINE TENDER CORK ROD.HOTEL ASSISTANT GENERAL MANAGER Work Phone: Start: 11-27-2023 PFIZER-BIONTECH COVID-19 VACCINE AGE 12+ YR (COMIRNATY) Karla Baron MIXING MACHINE TENDER CORK ROD.HOTEL ASSISTANT GENERAL MANAGER Work Phone: Start: 05-03-2023 Plain chest X-ray Start: 05-03-2023 CT cervical spine without contrast Start: 05-03-2023 CT of head without contrast Start: 02-02-2023 Radiologic exam chest 2 views Eliseo Ordonez PA Work Phone: Start: 12-11-2022 PFIZER-BIONTECH COVID-19 VACCINE ( SEASON) AGE 12+ YR Tyler Borrego MD Work Phone: Start: 10-10-2022 Radex spine lumbosacral 2/3 views Ida Hatfield PA-C Work Phone: Start: 10-10-2022 INFLUENZA VACCINE, PRSV FREE, AGE 65+ YR, HIGH DOSE, QUADRIVALENT (FLUZONE HIGH-DOSE) Ida Hatfield PA-C Work Phone: Start: 09-08-2022 CT of abdominal aorta with contrast Start: 04-06-2022 STREP A MOLECULAR (POC) [facility] Provider Start: 12-31-2021 Plain chest X-ray Start: 08-10-2006 History of placement of stent for coronary artery disease History of coronary artery stent placement Comment on above: 1 stent History of placement of stent for coronary artery disease S/P coronary artery stent placement Ida Hatfield PA-C Work Phone: Plan of Treatment Date Care Activity Detail Author Start: 05-21-2031 Urine microalbumin profile [facility] Start: 02-28-2027 Diabetes Screening Diabetes Screening [facility] Start: 04-08-2026 Diabetes Screening Diabetes Screening [facility] Start: 04-07-2025 DIABETES SCREEN DIABETES SCREEN [facility] Start: 04-07-2025 Diabetes Screening Diabetes Screening [facility] Start: 02-28-2025 Hepatitis B surface antibody level LDL Cholesterol [facility] Start: 10-06-2024 Influenza vaccination [facility] Start: 09-23-2024 End: 09-23-2024 Patient encounter procedure 09/23/2024 11:20 AM EDT Office Visit [facility] [address] [place] [address] Karla Baron, MIXING MACHINE TENDER CORK ROD.HOTEL ASSISTANT GENERAL MANAGER [address] [place] [address] 3 Month follow up (40 min per CH) [facility] Comment on above: 3 Month follow up (40 min per CH) Start: 08-26-2024 Patient discharge [facility] Start: 07-30-2024 Evaluation of diagnostic study results [facility] Start: 07-29-2024 [facility] Start: 06-24-2024 End: 06-24-2024 Patient encounter procedure 06/24/2024 11:00 AM EDT Office Visit [facility] [address] [place] [address] Karla Baron, MIXING MACHINE TENDER CORK ROD.HOTEL ASSISTANT GENERAL MANAGER [address] [place] [address] 1 Month follow up (40 min per CH) [facility] [place] Comment on above: 1 Month follow up (40 min per CH) Start: 05-27-2024 Covid-19 Vaccine ( season) Covid-19 Vaccine () [facility] Start: 05-27-2024 End: 05-27-2024 Patient encounter procedure [facility] [place] Comment on above: 6 Month follow up Start: 05-18-2024 [facility] Start: 05-18-2024 End: 05-18-2024 [facility] Start: 04-08-2024 Hepatitis B surface antibody level LDL Cholesterol [facility] Start: 03-27-2024 End: 03-27-2024 Patient encounter procedure 03/27/2024 2:30 PM EST Office Visit Vasculary Surgery [address] [place] [address] Bilateral carotid artery stenosis [I65.23] [facility] Comment on above: Bilateral carotid artery stenosis [I65.2 3] Start: 03-03-2024 End: 06-02-2024 Prostate specific Ag [Mass/volume] in Serum or Plasma PROSTATE-SPECIFIC ANTIGEN DIAGNOSTIC Lab Routine Elevated PSA Expected: 03/03/2024, Expires: 06/02/[address] [facility] Work Phone: Comment on above: Expected: 03/03/2024, Expires: Start: 02-29-2024 End: 02-29-2024 Patient encounter procedure 02/29/2024 2:00 PM EST Office Visit Family [facility] [address] [facility] [place] [place] [address] Karla Baron APRN.HOTEL ASSISTANT GENERAL MANAGER [address] [place] [address] 1 month follow up BP (40 min per CH) [facility] [place] Comment on above: 1 month follow up BP (40 min per CH) Start: 02-29-2024 End: 02-29-2024 ambulatory 02/29/2024 7:15 AM EST Results Only [facility] [address] [facility] [place] [place] [address] labs [facility] Comment on above: labs Start: 02-27-2024 End: 11-26-2024 CBC W Auto Differential panel - Blood COMPLETE BLOOD COUNT AND DIFFERENTIAL Lab Routine Primary hypertension Expected: 02/27/2024, Expires: 11/26/[address] [facility] Work Phone: Comment on above: Expected: 02/27/2024, Expires: Start: 02-27-2024 End: 11-26-2024 Comprehensive metabolic 2000 panel - Serum or Plasma COMPREHENSIVE METABOLIC PANEL Lab Routine Essential hypertension, benign Expected: 02/27/2024, Expires: 11/26/2024 [facility] Comment on above: Expected: 02/27/2024, Expires: Start: 02-27-2024 End: 11-26-2024 Lipid 1996 panel - Serum or Plasma LIPID PANEL BASIC Lab Routine Hyperlipidemia LDL goal <70 Expected: 02/27/2024, Expires: 11/26/2024 [facility] Comment on above: Expected: 02/27/2024, Expires: Start: 02-27-2024 End: 11-26-2024 Magnesium [Mass/volume] in Serum or Plasma MAGNESIUM Lab Routine Gastroesophageal reflux disease, unspecified whether esophagitis present Expected: 02/27/2024, Expires: 11/26/2024 [facility] Comment on above: Expected: 02/27/2024, Expires: Start: 02-27-2024 End: 11-26-2024 PSA/PROSTATE SPECIFIC ANTIGEN SCREENING PSA/PROSTATE SPECIFIC ANTIGEN SCREENING Lab Routine Elevated PSA Encounter for screening for malignant neoplasm of prostate Expected: 02/27/2024, Expires: 11/26/2024 [facility] Comment on above: Expected: 02/27/2024, Expires: Start: 02-25-2024 End: 02-25-2024 Patient encounter procedure [facility] [place] Comment on above: 1 month follow up BP 1 month follow up BP (40 min per CH) Start: 02-11-2024 [facility] Start: 02-11-2024 Removal of urinary catheter [facility] Start: 02-06-2024 Advance Directive Discussion Advance Directive Discussion [facility] Start: 01-30-2024 [facility] Start: 01-02-2024 End: 01-02-2024 Patient encounter procedure 01/02/2024 11:00 AM EST Office Visit General Surgery [address] [place], [place] [address] Tomeka Mclaughlin APRN.HOTEL ASSISTANT GENERAL MANAGER [address] [place] [address] 12-25 colonoscopy follow up General Surgery Comment on above: 12-25 colonoscopy follow up Start: 12-26-2023 End: 12-26-2023 Patient encounter procedure 12/26/2023 12:00 PM EST Appointment Ambulatory Surgery [address] [place] [address] [facility] [place] [address] Star Grande MD [address] [address] Ambulatory Surgery Start: 12-06-2023 End: 12-06-2023 Patient encounter procedure General Surgery Comment on above: Positive occult stool blood test [R19.5] Positive occult stoo l blood test 11/28/23 Start: 11-27-2023 End: 11-27-2023 Patient encounter procedure 11/27/2023 11:00 AM EDT Office Visit Family [facility] [address] [place] [address] Ida Hatfield PA-C [address] [place] [address] 6 Month follow up [facility] Comment on above: 6 Month follow up Start: 11-23-2023 End: 02-22-2024 CBC W Auto Differential panel - Blood COMPLETE BLOOD COUNT AND DIFFERENTIAL Lab Routine Essential hypertension, benign Expected: 11/23/2023, Expires: 02/22/[address] [facility] Work Phone: Comment on above: Expected: 11/23/2023, Expires: Start: 10-07-2023 Covid-19 Vaccine ( season) Covid-19 Vaccine () [facility] Start: 10-07-2023 Influenza vaccination [facility] Start: 09-24-2023 DIABETES SCREEN DIABETES SCREEN [facility] Start: 09-10-2023 End: 09-10-2023 Patient encounter procedure 09/10/2023 4:15 PM EDT Office Visit Orthopaedics [address] [place] [address] Nilesh Mays MD [address] [place] [address] Aponeurotomy left 4th finger Orthopaedics Comment on above: Aponeurotomy left 4th finger Start: 05-24-2023 End: 08-23-2023 Comprehensive metabolic 2000 panel - Serum or Plasma COMPREHENSIVE METABOLIC PANEL Lab Routine Essential hypertension, benign Hyperlipidemia LDL goal <70 Expected: 05/24/2023, Expires: 08/23/[address] [facility] Work Phone: Comment on above: Expected: 05/24/2023, Expires: Start: 05-24-2023 End: 08-23-2023 Lipid 1996 panel - Serum or Plasma LIPID PANEL BASIC Lab Routine Hyperlipidemia LDL goal <70 Expected: 05/24/2023, Expires: 08/23/[address] [facility] Work Phone: Comment on above: Expected: 05/24/2023, Expires: Start: 05-24-2023 End: 08-23-2023 PSA/PROSTATE SPECIFIC ANTIGEN SCREENING PSA/PROSTATE SPECIFIC ANTIGEN SCREENING Lab Routine BPH with obstruction/lower urinary tract symptoms Elevated PSA Encounter for screening for malignant neoplasm of prostate Expected: 05/24/2023, Expires: 08/23/[address] [facility] Work Phone: Comment on above: Expected: 05/24/2023, Expires: Start: 05-03-2023 [facility] Start: 04-10-2023 End: 06-10-2023 CBC W Auto Differential panel - Blood CBC + DIFF Lab Routine Essential hypertension, benign Hyperlipidemia LDL goal <70 Expected: 04/10/2023, Expires: 06/10/[address] [facility] Work Phone: Comment on above: Expected: 04/10/2023, Expires: Start: 04-10-2023 End: 06-10-2023 Comprehensive metabolic 2000 panel - Serum or Plasma COMP METABOLIC PANEL Lab Routine Essential hypertension, benign Expected: 04/10/2023, Expires: 06/10/[address] [facility] Work Phone: Comment on above: Expected: 04/10/2023, Expires: Start: 04-10-2023 End: 06-10-2023 Lipid 1996 panel - Serum or Plasma LIPID PANEL BASIC Lab Routine Hyperlipidemia LDL goal <70 Expected: 04/10/2023, Expires: 06/10/[address] [facility] Work Phone: Comment on above: Expected: 04/10/2023, Expires: Start: 04-08-2023 Covid-19 Vaccine () Covid-19 Vaccine () [facility] Start: 02-05-2023 Advance Directive Discussion Advance Directive Discussion [facility] Start: 02-05-2023 Behavioral Health Screening Behavioral Health Screening [facility] Start: 02-05-2023 Depression Assessment Depression Assessment [facility] Start: 10-13-2022 ANNUAL PCP TEAM CHRONIC DISEASE VISIT ANNUAL PCP TEAM CHRONIC DISEASE VISIT [facility] Start: 10-06-2022 Covid-19 Vaccine () Covid-19 Vaccine () [facility] Start: 10-06-2022 Influenza vaccination INFLUENZA (#1) [facility] Start: 04-06-2022 End: 06-06-2022 Comprehensive metabolic 2000 panel - Serum or Plasma COMP METABOLIC PANEL Lab Routine Essential hypertension, benign Expected: 04/06/2022, Expires: 06/06/[address] [facility] Work Phone: Comment on above: Expected: 04/06/2022, Expires: Start: 02-05-2022 ADVANCE DIRECTIVE DISCUSSION ADVANCE DIRECTIVE DISCUSSION [facility] Start: 02-05-2022 DEPRESSION ASSESSMENT DEPRESSION ASSESSMENT [facility] Start: 12-31-2021 Referral to service [facility] Work Phone: Start: 12-31-2021 End: 12-31-2021 Suicide precautions [facility] Work Phone: Start: 10-06-2021 Influenza vaccination INFLUENZA (#1) [facility] Start: 09-23-2021 Hepatitis B surface antibody level LDL CHOLESTEROL [facility] Start: 03-07-2021 COVID-19 VACCINE (4 - Booster for Pfizer series) COVID-19 VACCINE (4 - Booster for Pfizer series) [facility] Start: 03-07-2021 COVID-19 VACCINE (4 - Pfizer series) COVID-19 VACCINE (4 - Pfizer series) [facility] Start: 02-05-2021 DEPRESSION ASSESSMENT DEPRESSION ASSESSMENT [facility] Start: 09-06-2018 BP CONTROLLED (<130/80) BP CONTROLLED (<130/80) [facility] Start: 08-05-2017 Medicare Annual Wellness Visit Medicare Annual Wellness Visit [facility] Start: 02-17-2016 RSV Vaccine (1 - 1-dose 75+ series) RSV Vaccine (1 - 1-dose 75+ series) [facility] Start: 2001 RSV Vaccine (1 - 1-dose 60+ series) RSV Vaccine (1 - 1-dose 60+ series) [facility] Start: 1991 SHINGRIX VACCINE (1 of 2) SHINGRIX VACCINE (1 of 2) [facility] Start: 1959 Depression Screening Depression Screening [facility] ALERE STREP A TEST (AG) ALERE ST REP A TEST (AG) Lab Routine Sore throat Ordered: 04/06/[address] [facility] Work Phone: Comment on above: Ordered: 04/06/2022 Catheterization of l eft heart [facility] CTA Head vessels and Neck vessels W contrast IV [facility] End: 12-05-2024 EGD DIAGNOSTIC EGD DIAGNOSTIC Endoscopy Routine Positive occult stool blood test Black stools Gastroesophageal reflux disease, unspecified whether esophagitis present 1 Occurrences starting 12/06/2023 until 12/05/2024 [facility] Work Phone: Comment on above: 1 Occurrences starting 12/06/2023 until 12/05/2024 End: 12-05-2024 Flexible sigmoidoscopy study COLONOSCOPY DIAGNOSTIC Endoscopy Routine Positive occult stool blood test Black stools 1 Occurrences starting 12/06/2023 until 12/05/2024 [facility] Comment on above: 1 Occurrences starting 12/06/2023 until 12/05/2024 Hemoglobin.gastroint nicholas nal.lower [Presence] in Stool by Immunoassay IMMUNOCHEMICAL FECAL OCCULT BLOOD TEST Lab Routine Black stool Ordered: 11/27/2023 [facility] Comment on above: Ordered: 11/27/2023 Influenza virus A an d B RNA and SARS-CoV-2 (COVID-19) N gene panel - Respiratory specimen by JOHANNY with probe detection COVID WITH FLUA+B, ROUTINE Microbiology Routine Sore throat URI, acute 04/06/2022 2:54 PM EST [facility] Work Phone: NM Heart Views W str ess and W radionuclide IV [facility] Patient Education [facility] Work Phone: Patient referral [facility] Work Phone: End: 11-09-2023 Radex spine lumbosacral 2/3 views XR LUMBAR GENERAL 3V AP/LAT/L5-S1 Radiology Routine Claudication (HCC) 1 Occurrences starting 10/10/2022 until 11/09/[address] [facility] Work Phone: Comment on above: 1 Occurrences starting 10/10/2022 until 11/09/2023 Radex spine lumbosac ral 2/3 views XR LUMBAR GENERAL 3V AP/LAT/L5-S1 Radiology Routine Benign prostatic hyperplasia with weak urinary stream 10/10/2022 10:27 AM EDT [facility] Work Phone: SURGICAL PATHOLOGY [facility] Work Phone: Comment on above: Release Upon Ordering for 1 Occurrences starting 12/26/2023, 1 completed End: 03-03-2025 US Carotid arteries - bilateral US CAROTID ARTERIES [facility] Vascular Lab Routine Bilateral carotid artery stenosis 1 Occurrences starting 03/03/2024 until 03/03/2025 [facility] Comment on above: 1 Occurrences starting 03/03/2024 until 03/03/2025 US Heart [facility] Immunizations Immunization Date Immunization Notes Care Provider Delores lopez 11-27-2023 COVID-19 vaccine, ag e 12+ yr (DxTerity-Parking Panda COMIRNATY) Karla Baron MIXING MACHINE TENDER CORK ROD.HOTEL ASSISTANT GENERAL MANAGER Work Phone: [facility] 11-27-2023 influenza, high dose seasonal, preservative-free Karla Baron MIXING MACHINE TENDER CORK ROD.HOTEL ASSISTANT GENERAL MANAGER Work Phone: [facility] 11-27-2023 influenza virus vaccine, unspecified formulation Karla Baron HOTEL ASSISTANT GENERAL MANAGER Work Phone: [facility] 12-08-2022 COVID-19 vaccine, ag e 12+ yr, season (PFIZER-BIONTECH) Immunization [place] Work Phone: [facility] Work Phone: 10-10-2022 influenza (HD-IIV4) vaccine, age 65+ yr, high dose, quadrivalent, PF (FLUZONE HIGH-DOSE) NA Hatfield PA-C Work Phone: [facility] 10-10-2022 influenza virus vaccine, unspecified formulation Nilesh Mays MD Work Phone: [facility] 11-03-2021 influenza (HD-IIV4) vaccine, age 65+ yr, high dose, quadrivalent, PF (FLUZONE HIGH-DOSE) NA Hatfield PA-C Work Phone: [facility] 05-20-2021 tetanus toxoid, redu melecio diphtheria toxoid, and acellular pertussis vaccine, adsorbed [facility] 12-09-2020 influenza, injectabl e, quadrivalent, preservative free [facility] 12-09-2020 influenza, seasonal, injectable [facility] 12-09-2020 influenza, seasonal, injectable, preservative free NA Hatfield PA-C Work Phone: [facility] 04-29-2020 Covid (Pfizer) [facility] 11-26-2019 influenza, high-dose , quadrivalent vaccine (FLUZONE HIGH DOSE QUADRIVALENT) NA Hatfield PA-C Work Phone: [facility] 11-29-2018 influenza, high dose seasonal, preservative-free NA Hatfield PA-C Work Phone: [facility] 11-16-2017 influenza, high dose seasonal, preservative-free NA Hatfield PA-C Work Phone: [facility] Work Phone: 12-04-2016 influenza, high dose seasonal, preservative-free NA Hatfield PA-C Work Phone: [facility] Work Phone: 02-24-2016 influenza, high dose seasonal, preservative-free NA Hatfield PA-C Work Phone: [facility] Work Phone: 11-06-2015 Influenza virus vaccine [facility] 11-06-2015 influenza, high dose seasonal, preservative-free NA Hatfield PA-C Work Phone: [facility] 11-06-2015 influenza, seasonal, injectable, preservative free NA Hatfield PA-C Work Phone: [facility] 05-10-2015 pneumococcal conjuga te vaccine, 13 valent NA Hatfield PA-C Work Phone: [facility] 01-20-2015 influenza, high dose seasonal, preservative-free NA Hatfield PA-C Work Phone: [facility] 2014 influenza, high dose seasonal, preservative-free NA Hatfield PA-C Work Phone: [facility] 06-21-2013 tetanus toxoid, redu melceio diphtheria toxoid, and acellular pertussis vaccine, adsorbed [facility] 12-12-2011 influenza virus vaccine, unspecified formulation NA Hatfield PA-C Work Phone: [facility] 08-23-2011 pneumococcal polysaccharide vaccine, 23 valent NA Hatfield PA-C Work Phone: [facility] 08-23-2011 Pneumococcal Vaccine [facility] Work Phone: 08-23-2011 pneumococcal vaccine , unspecified formulation [facility] 11-14-2010 influenza virus vaccine, unspecified formulation NA Hatfield PA-C Work Phone: [facility] Work Phone: 12-04-2007 influenza virus vaccine, unspecified formulation NA Hatfield PA-C Work Phone: [facility] 12-04-2007 pneumococcal polysaccharide vaccine, 23 valent NA Hatfield PA-C Work Phone: [facility] 12-04-2007 tetanus toxoid, redu melecio diphtheria toxoid, and acellular pertussis vaccine, adsorbed NA Liu BERRY-Del Work Phone: [facility] Work Phone: 09-06-1977 diphtheria and tetan us toxoids, adsorbed for pediatric use NA Hatfield PA-C Work Phone: [facility] Payers Date Payer Category Payer Self-pay [id number] 2018 Private Health Insurance [id number] 2018 Private Health Insurance [id number] 2017 Medicare [id number] 2017 Medicare [id number] Medicare [id number] Unknown [id number] Unknown [id number] Unknown [id number] 2.16.8 [id number] Unknown [id number] 2.16.8 40.1.061070.3.579.2.462 Unknown [id number] 2.16.8 40.1.469861.3.579.2.462 Unknown [id number] 2.16.8 40.1.584683.3.579.2.462 Unknown [id number] 2.16.8 40.1.212746.3.579.2.462 Unknown [id number] 2.16.8 40.1.222960.3.579.2.462 Unknown [id number] 2.16.8 40.1.666316.3.579.2.462 Unknown [id number] 2.16.8 40.1.558385.3.579.2.462 Unknown [id number] 2.16.8 40.1.117830.3.579.2.462 Unknown [id number] 2.16.8 40.1.963984.3.579.2.462 Unknown [id number] 2.16.8 40.1.189514.3.579.2.462 Unknown [id number] 2.16.8 40.1.879491.3.579.2.462 Unknown [id number] 2.16.8 40.1.497464.3.579.2.462 Unknown [id number] 2.16.8 40.1.744480.3.579.2.462 Unknown [id number] 2.16.8 40.1.446292.3.579.2.462 Unknown [id number] 2.16.8 40.1.539828.3.579.2.462 Unknown [id number] 2.16.8 40.1.255565.3.579.2.462 Unknown [id number] 2.16.8 40.1.467145.3.579.2.462 Unknown [id number] 2.16.8 40.1.721323.3.579.2.462 Unknown [id number] 2.16.8 40.1.070705.3.579.2.462 Unknown [id number] 2.16.8 [id number] Social History Date Type Detail Facility Start: 05-20-2021 End: 05-03-2023 Tobacco smoking status ORIS Unknown if ever smoked [facility] Start: 05-02-2016 None [facility] Start: 05-08-2013 Spouse/ Signif icant Other [facility] Start: 05-08-2013 Cigarettes [facility] Start: 1940 Sex Assigned At Male W [facility] Start: 02-05-1958 End: 11-27-2023 Tobacco smoking status NHIS Smokes tobacco daily [facility] Start: 02-05-1958 End: 04-19-2022 History of tobacco use Cigarette Smoker [facility] Start: 10-13-2021 End: 08-11-2022 Cigarettes smoked current (pack per day) - Reported 1 [facility] Start: 10-13-2021 End: 11-27-2023 Tobacco use and exposure Smokeless tobacco non-user [facility] Start: 10-13-2021 End: 06-24-2024 Alcohol intake Current drinker of alcohol (finding) [facility] Start: 10-22-2015 History SDOH Alcohol Comment Socially [facility] Start: 1940 Sex Assigned At Not on file C [facility] Start: 10-03-2021 End: 10-13-2021 Exposure to SARS-CoV-2 (event) Not sure [facility] Start: 07-04-2022 Tobacco smoking stat us NHIS Ex-smoker [facility] Start: 02-05-1958 End: 04-19-2022 History of tobacco use Current smoker [facility] Start: 10-15-2020 End: 08-11-2022 Tobacco use panel [facility] Adult Depression Screening Assessment 0 [facility] Start: 05-18-2024 End: 08-25-2024 Tobacco smoking status ORIS Current Heavy tobacco smoker [facility] Start: 05-18-2024 Sex Male (finding) [facility] Medical Equipment Procedure Code Equipment Code Equipment Origin al Text Equipment Identifier Dates Ligation clip, synthetic polymer, non-bioabsorbable [id number] FDA Start: 12-08-2020 Patch Vascu-Guar d Taper Bovine Pericardial 8x.8cm [facility] [place] - [id number] Start: 03-01-2016 Comment on above: Description: Vascu G uard Patch Graft Patch Vascu-Guar d Taper Bovine Pericardial 8x.8cm [facility] [place] - [id number] Start: 03-01-2016 Comment on above: Description: Vascu G uard Patch Graft Functional Status Date Assessment Result Facility 04-13-2016 Are you deaf, or do you have serious difficulty hearing No 04/13/2016 2:31 PM Kwan Diehl APRN.MARK No [facility] Work Phone: 04-13-2016 Are you blind, or do you have serious difficulty seeing, even when wearing glasses No 04/13/2016 2:31 PM Kwan Diehl APRN.MARK No [facility] 04-13-2016 Do you have serious difficulty walking or climbing stairs No 04/13/2016 2:31 PM Kwan Diehl APRN.MARK No [facility] 04-13-2016 Do you have difficul ty dressing or bathing Yes 04/13/2016 2:31 PM Kwan Diehl, STACY.HOTEL ASSISTANT GENERAL MANAGER Yes [facility] 04-13-2016 Because of a physica l, mental, or emotional condition, do you have difficulty doing errands alone such as visiting a physician's office or shopping Yes 04/13/2016 2:31 PM Kwan Diehl, STACY.HOTEL ASSISTANT GENERAL MANAGER Yes [facility] Mental Status Date Assessment Result Facility 05-20-2021 Cognitive function Voice/Name [facility] Work Phone: 04-13-2016 Because of a physica l, mental, or emotional condition, do you have serious difficulty concentrating, remembering, or making decisions No 04/13/2016 2:31 PM Kwan Diehl APRN.MARK No [facility] Clinical Notes 04-11-2016 to 08-29-2024 Telephone Encounter - Marina Mathews - 08/29/2024 8:54 AM EDTTelephone Encounter - Marina Mathews - 08/29/2024 8:54 AM EDTTelephone Encounter - Danae Willett APRN.CNP - 08/29/2024 8:44 AM EDT Note Date & Type Note Facility 08-29-2024 Telephone encount er Note Patient asking to have 1 week of medication sent to his local pharmacy. Medication will not arrive before patient is out of medication. Local pharmacy: [facility] 08-29-2024 Miscellaneous Notes Formattin g of this note might be different from the original. Patient asking to have 1 week of medication sent to his local pharmacy. Medication will not arrive before patient is out of medication. Local pharmacy: [facility] The following approved medication requests have been transmitted electronically. Requested Prescriptions Pending Prescriptions Disp Refills losartan (COZAAR) 25 mg tablet 14 tablet 0 Sig: Take 1 tablet by mouth once daily for 14 days. Danae Willett APRN.CNP Patient calls to report he needs a refill of losartan. Patient has refills on file with [facility] but is completely out. Pended 14 day supply while patient figures out with [facility] when they are going to deliver medication. Nemo Henry RN documented in this encounter [facility] 08-29-2024 Telephone encount er Note The following approved medication requests have been transmitted electronically. Requested Prescriptions Pending Prescriptions Disp Refills losartan (COZAAR) 25 mg tablet 14 tablet 0 Sig: Take 1 tablet by mouth once daily for 14 days. Danae Willett APRN.CNP [facility] 08-29-2024 Telephone encount er Note Patient calls to report he needs a refill of losartan. Patient has refills on file with [facility] but is completely out. Pended 14 day supply while patient figures out with [facility] when they are going to deliver medication. Nemo Henry RN [facility] 08-05-2024 Telephone encount er Note Noted. Karla Baron APRN.CNP [facility] 08-05-2024 Miscellaneous Notes Formattin g of this note might be different from the original. Noted. Karla Baron APRN.CNP Unable to return call to Lolly at [facility] d/t no number listed. Phoned pt, notified of provider response. He states he stopped seeing Dr. Fitzgerald because the gabapentin and tramadol were not helpful. He states he saw Ortho and received an injection in his L knee and that has been very helpful. He plans to continue to follow up with Ortho. Heavenly Valdes LPN Agree that he should only be taking no more than 8 tylenol a day. If the pain is related to the foot, then that really needs to be addressed by the accounts receivable clerk that did the procedure. He is also following with pain management Dr Fitzgerald and being prescribed gabapentin and tramadol. Lolly from [facility] calling she had called the patient in preparation for his Carotid Endarterectomy for later this month. Patient told him her had his large toenails removed 08/04 by provider [facility] and he is taking tylenol for pain. She said he told her I take 500 mg one tablet every hour or two. She explained not to take that many, only could have 8 tablets in a day. She has [facility] and left a message concerning this. She said he takes plavix so did not want him taking to much tylenol. She said he was recently see by [facility] so he was cleared per that office for surgery. Asking if he needs something for pain can MANAGER FORENSIC advise, she said he lives alone and needs some guidance on his medications. documented in this encounter [facility] 08-05-2024 Telephone encount er Note Unable to return call to Lolly at [facility] d/t no number listed. Phoned pt, notified of provider response. He states he stopped seeing Dr. Fitzgerald because the gabapentin and tramadol were not helpful. He states he saw Ortho and received an injection in his L knee and that has been very helpful. He plans to continue to follow up with Ortho. Heavenly Valdes LPN [facility] 08-05-2024 Telephone encount er Note Agree that he should only be taking no more than 8 tylenol a day. If the pain is related to the foot, then that really needs to be addressed by the accounts receivable clerk that did the procedure. He is also following with pain management Dr Fitzgerald and being prescribed gabapentin and tramadol. [facility] 08-05-2024 Telephone encount er Note Lolly from [facility] calling she had called the patient in preparation for his Carotid Endarterectomy for later this month. Patient told him her had his large toenails removed 08/04 by provider [facility] and he is taking tylenol for pain. She said he told her I take 500 mg one tablet every hour or two. She explained not to take that many, only could have 8 tablets in a day. She has called [facility] and left a message concerning this. She said he takes plavix so did not want him taking to much tylenol. She said he was recently see by [facility] so he was cleared per that office for surgery. Asking if he needs something for pain can MANAGER FORENSIC advise, she said he lives alone and needs some guidance on his medications. [facility] 07-29-2024 Discharge summary [facility] 07-29-2024 Radiology Diagnostic study note [facility] Imaging Services [address] [place] [id number] Knee 4 or More Views MR#: [id number] Acct: [id number] Name: RAMONITA EL Rep #: [id number] : 1940 M 84 From: Karthikeyan Alexandra MD PCP: RAYO Pillai Status: PRE E R Study:Knee 4 or More Views Date of Exam: 07/29/24 Exam# [id number] Ordering Dr: Alysia Mccullough MD PROCEDURE: KNEE 4 OR MORE VIEWS 07/29/2024 REASON FOR EXAM: PAIN TECHNIQUE: KNEE 4 OR MORE VIEWS COMPARISON: None FINDINGS: There is no fracture or dislocation. There is minimal spurring at the medial tibial plateau and superior patellar articular surface. There is a small visible joint effusion. Osteopenia is noted. Vascular calcifications are present. RAD/Knee 4 or More Views IMPRESSION: There is no fracture or dislocation. There is a small visible joint effusion. Reading Location: [facility] CC: MANAGER FORENSIC-C Karla Baron; Dr. Nilesh Mccullough MD ~ Ammonia Still Operator: Signed [facility] 07-25-2024 Radiology Diagnostic study note [facility] Imaging Services [address] [place] [address] Lumbar Spine 2 or 3 Views MR#: [id number] Acct: [id number] Name: RAMONITA EL Rep #: [id number] : 1940 M 84 From: Rosangela Barger MD PCP: DALIA PillaiC Status: REG C LI Study:Lumbar Spine 2 or 3 Views Date of Exam: 07/24/24 Exam# [id number] Ordering Dr: Corrina Fitzgerald MD PROCEDURE: LUMBAR SPINE 2 OR 3 VIEWS 07/24/2024 REASON FOR EXAM: DDD TECHNIQUE: LUMBAR SPINE 2 OR 3 VIEWS COMPARISON: None. FINDINGS: Grade 1 anterolisthesis of L5 on S1 measuring 5.8 mm secondary to bilateral parsdefects. Exaggerated lumbar lordosis. Mild S shaped degenerative [...] lordosis. S shaped degenerative scoliosis. Reading Location: [place] [address] CC: RAYO Baron; Dr. Chandni Fitzgerald MD ~ Ammonia Still Operator: Signed [facility] 07-03-2024 Radiology Diagnostic study note [facility] Imaging Services [address] [place] [id number] CTA Head AND Neck W/ Contrast MR#: [id number] Acct: [id number] Name: RAMONITA EL Rep #: [id number] : 1940 M 84 From: Anthony Berrios MD PCP: RAYO Pillai Status: REG C MALVIN Study:CTA Head AND Neck W/ Contrast Date of E xam: 07/03/24 Exam# [id number] Ordering Dr: Barney Strong PROCEDURE: CTA HEAD [...] Calcific plaques. LEFT Vertebral: Calcific plaques. Anatomy: [place] anatomy is normal. Aneurysm or [...] involving both internal carotid arteries. Reading Location: [id number] CC: RAYO Baron; KRISTI Garza ~ Ammonia Still Operator: Signed [facility] 06-24-2024 Note HNO ID: [id number] Author: KARLA BARON APRN.HOTEL ASSISTANT GENERAL MANAGER Service: ? Author Type: Nurse Practitioner Type: [...] episode of care unspecified 08/10/06 STENT placed [facility] Alcohol abuse 05/22/2013 Chronic anxiety 10/22/2017 [...] gesture Radius fracture 06/21/[address] [facility] Tobacco abuse 05/22/2013 Urinary calculus, unspecified 01/05 [...] Smoking status: Every (more content not included)... [facility] 06-03-2024 Evaluation note Diagnosis Onset Date Resolution Carotid stenosis, right acute A pril 2024 10:38am 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 acute June 03 10:38am [facility] Work Phone: 1(941) 479-243104-29-2025 Evaluation note* Diagnosis Onset Date Resolution Status Admit Date 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 acute Apri l 2024 10:38am Carotid stenosis, right chronic A pril 2024 10:38am Carotid stenosis, right chronic J une 2024 1:47pm [facility] Work Phone: 1(547) 272-166704-29-2025 Evaluation note* Diagnosis Onset Date Resolution Status Admit Date 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 acute Apri l 2024 10:38am Carotid stenosis, right chronic A pril 2024 10:38am Carotid stenosis, right chronic J une 2024 1:47pm Encounter for pre-operative cardiovascular clearance acute July 302024 1:17pm [facility] Work Phone: 1(482) 259-383204-29-2025 Evaluation note* Diagnosis Onset Date Resolution Status Admit Date 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 acute Apri l 2024 10:38am Carotid stenosis, right chronic A pril 2024 10:38am Carotid stenosis, right chronic J une 2024 1:47pm Encounter for pre-operative cardiovascular clearance acute July 302024 1:17pm 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, 2006 acute July 30, 2024 1:17pm Essential hypertension chronic Ju ne 2024 1:17pm [facility] Work Phone: 1(331) 911-899704-29-2025 Evaluation note* Diagnosis Onset Date Resolution Status Admit Date 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 acute Apri l 2024 10:38am Carotid stenosis, right chronic A pril 2024 10:38am Carotid stenosis, right chronic J une 2024 1:47pm Encounter for pre-operative cardiovascular clearance acute July 302024 1:17pm 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, 2006 acute July 30, 2024 1:17pm Essential hypertension chronic Ju ne 2024 1:17pm Acute pain of left knee acute J une 2024 1:43pm Osteoarthritis of left knee acute August 04, 2024 1:43pm [facility] Work Phone: 1(949) 885-900604-29-2025 Evaluation note* Diagnosis Onset Date Resolution Status Admit Date 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 acute Apri l 2024 10:38am Carotid stenosis, right chronic A pril 2024 10:38am Carotid stenosis, right chronic J une 2024 1:47pm Encounter for pre-operative cardiovascular clearance acute July 302024 1:17pm 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 Per Smiley in scheduling, she received the paperwork and faxed it to [facility]. She gave their phone number of [phone]. Called and had to leave a msg. [...] yesterday and she sent a referral to [facility] while he was in the office. He states he spoke with them and they did not receive any referralor paperwork. Called and spoke with scheduling for vascular surgery and they state they did not receive anything. Referral order, carotid artery ultrasound results and Karla's office note faxed to [facility] vascular surgery at [phone]. [facility] Telephone encounter Note * Telephone Encounter - Sandy Cardoza RN - 05/28/2024 2:54 PM EDT Called to confirm that fax went through. Per Smiley in scheduling, she received the paperwork and faxed it to [facility]. She gave their phone number of [phone]. Called and had to leave a msg. LM stating pt's name and and the need for referral and to confirm they had received the order. Left the pt's phone number and asked them to contact him. [facility]04-23-2025 Telephone encounter Note* Telephone Encounter - Sandy Cardoza RN - 05/28/2024 2:15 PM EDT Pt calling in and states he saw Karla Baron yesterday and she sent a referral to [facility] while he was in the office. He states he spoke with them and they did not receive any referralor paperwork. Called and spoke with scheduling for vascular surgery and they state they did not receive anything. Referral order, carotid artery ultrasound results and Karla's office note faxed to [facility] vascular surgery at [phone]. [facility]04-22-2025 NoteHNO ID: [id number] Author: KARLA BARON APRN.HOTEL ASSISTANT GENERAL MANAGER Service: ? Author Type: Nurse Practitioner Type: [...] more they could do. - Has seen vascular manager in the past but is reluctant to [...] Most recent visit was last week at [facility] for a medication lodged in the throat. [...] episode of care unspecified 08/10/06 STENT placed [facility] Alcohol abuse 05/22/2013 Chronic anxiety 10/22/2017 [...] gesture Radius fracture 06/21/[address] [facility] Tobacco abuse 05/22/2013 Urinary calculus, unspecified 01/05 [...] Take 1 tablet (more content not included)... [facility]04-22-2025 History of Present illness Narrative* Karla Baron, STACY.HOTEL ASSISTANT GENERAL MANAGER - 05/27/2024 5:16 PM EDT This is [...] more they could do. - Has seen vascular manager in the past but is reluctant to [...] Most recent visit was last week at [facility] for a medication lodged in the throat. [...] episode of care unspecified 08/10/06 STENT placed [facility] Alcohol abuse 05/22/2013 Chronic anxiety 10/22/2017 [...] gesture Radius fracture 06/21/[address] [facility] Tobacco abuse 05/22/2013 Urinary calculus, unspecified 01/05 [...] discussion. - Referral to vascular surgery at [facility]; faxed referral and previous study notes. - [...] specialists Dr. Fitzgerald and Dr. Gonzalez in [place] if pain persists. - Follow-up in one [...] or as needed for worsening/no improvement. Karla Braon APRN.MARK Recording using Keniu software for draft documentation of the visit was discussed with the patient/authorized housing management representative; all questions welcomed and answered. Patient/authorized housing management representative agreed to proceed documented in this encounterReg[facility] Instructions* Patient Instructions* Karla Baron APRN.CNP - [...] A referral to a vascular specialist at [facility] has been faxed along with your study [...] management(e.g., Dr. Fitzgerald or Dr. Gonzalez in [facility]). documented in this encounterRegency [facility]04-[facility]-2025 Radiology Diagnostic study note [facility] Imaging Services [address] [place], [place] [id number] Chest 1 View (Portable) MR#: [id number] Acct: [id number] Name: RAMONITA EL Rep #: [id number] : 1940 M 84 From: Gerald Flynn MD PCP: RAYO Pillai Status: REG E R Study:Chest 1 View (Portable) Date of Exam: 05/18/24 Exam# [id number] Ordering Dr: Gagan Matthews DO PROCEDURE: CHEST [...] Pneumonia to be ruled out. Reading Location: [id number]-RK CC: MANAGER FORENSICChar Baron; Dr. Lucien Matthews DO ~ Ammonia Still Operator: Signed [facility]04-13-2025 Discharge summary [facility] Medical Records Department [address] [place] [address] Emergency Department Summary 05/18/24 MR#: [id number] Acct: [id number] Name: RAMONITA EL Rep #:[id number] : 1940 84 From: Lucien Post PCP: RAYO Pillai Status:REG E R Location: ED HPI History of Present Illness Chief Complaint: Shortness of Breath PFSH PFS Medical History Alcohol use Prostate disease Easy [...] mg tablet 75 mg PO DAILY 05/02/16 1007/26 History tamsulosin 0.4 mg capsule (Flomax) 0.4 [...] MEDICAL DECISION MAKING: Chief Complaint: please see [facility] External records reviewed: Reviewed prior medications. Reviewed past medical history. Reviewed prior cardiovascular testing. Reviewed echocardiogram from 2020. . Showed ejection fraction of 55%. No regional wall motion abnormalities Factors affecting care: As per HPI Social determinants of health: History of smoking History obtained from others: none Consults: none [facility] Narrative: The patient was initially hypertensive [...] with normal sinus rhythm, normal axis, prolonged OR interval, first-degree block, QTc 459, no obvious [...] a.m. physician This note was generated with JoySports dictation software. It may contain incorrectwords, spelling, [...] 75.2 H Lymph % (Auto) 14.4 L [place] % (Auto) 8.5 Eos % (Auto) 0.8 [...] Karla Baron NP Referrals: Karla Baron NP, MANAGER FORENSIC-C [Primary Care Provider] - Activity Restrictions/Additional Instructions: [...] for further outpatient evaluationand management. Print Language: Finnish Disposition Disposition: Home, Self Care What to do if you have Problems For any increased pain, shortness of breath, bleeding, nausea or vomiting, chestpain, or any unexpected problems, contact your Primary Care Provider. Call [facility] ([phone]) or report tothe closest Emergency Room. Call 911 if necessary. 05/18/24 0658 Cosigner Signature (if applicable): CC: RAYO Baron ~ Signed [facility]01-28-2025 Miscellaneous Notes* Telephone Encounter - Sandy Cardoza RN - 03/04/2024 8:21 AM EST Pt returned the call and notified of results and Karla Baron's explanations. He is notified of need to repeat PSA lab in a month and transferred to [facility] in scheduling to set up carotid ultrasound. [...] to get this done. documented in this encounterRegency Hospital [facility]01-28-2025 Telephone encounter Note * Telephone Encounter - Sandy Cardoza RN - 03/04/2024 8:21 AM EST Pt returned the call and notified of results and Karla Baron's explanations. He is notified of need to repeat PSA lab in a month and transferred to [facility] in scheduling to set up carotid ultrasound. [facility]01-27-2025 Telephone encounter Note* Telephone Encounter - Kay Anguiano RN - 03/03/2024 7:12 PM EST Called and left a voicemail for the Patient to call back and ask for a nurse to receive the providers message. Kay Anguiano, RN [facility]01-27-2025 Telephone encounter Note* Telephone Encounter - Karla Baron APRN.CNP - 03/03/2024 6:42 PM EST Can please [...] an order in to get this done. [facility]01-24-2025 Instructions* Patient Instructions* Karla Baron APRN.CNP - 02/29/2024 2:21 PM EST Try the CeraVe, Cetophil or Aveeno. Continue the same medication. We'll let you know when we receive the labwork results. If the shoulder starts bothering you again, there is a referral placed to ortho that you can schedule. documented in this encounterRegency Hospital [facility]01-24-2025 NoteHNO ID: [id number] Author: KARLA BARON APRN.HOTEL ASSISTANT GENERAL MANAGER Service: ? Author Type: Nurse Practitioner Type: [...] episode of care unspecified 08/10/06 STENT placed [facility] Alcohol abuse 05/22/2013 Chronic anxiety 10/22/2017 [...] gesture Radius fracture 06/21/[address] [facility] Tobacco abuse 05/22/2013 Urinary calculus, unspecified 01/05 [...] auscultation. No wheezing, rhonch (more content not included)...[facility]01-24-2025 History of Present illness Narrative* Karla Baron APRN.HOTEL ASSISTANT GENERAL MANAGER - 02/29/2024 2:13 PM EST This is [...] episode of care unspecified 08/10/06 STENT placed [facility] Alcohol abuse 05/22/2013 Chronic anxiety 10/22/2017 [...] gesture Radius fracture 06/21/[address] [facility] Tobacco abuse 05/22/2013 Urinary calculus, unspecified 01/05 [...] as needed for worsening/no improvement. Karla Baron APRN.HOTEL ASSISTANT GENERAL MANAGER documented in this encounterRegency Hospital [facility]01-22-2025 Telephone encounter Note * Telephone Encounter - Sandy Cardoza RN - 02/27/2024 4:24 PM EST Pt returned the call and notified of prescription refill arriving tomorrow. Pt took a couple BP andreadings were 156/71 and 142/72. [facility]01-22-2025 Miscellaneous Notes* Telephone Encounter - Sandy Cardoza [...] nurse to call back Please call patient [phone] * Telephone Encounter - Ashley Grnat RN - 02/27/2024 3:25 PM EST This [...] Ashley Grant RN * Telephone Encounter - Ashley Grant RN [...] understanding. Ashley Grant RN documented in this encounterRegency Hospital [facility]01-22-2025 Telephone encounter Note * Telephone Encounter - Noemy Dubon - 02/27/2024 3:46 PM EST Please call patient , patient did return the call, we were on hold several minutes , advised patient I will send message for nurse to call back Please call patient [phone] [facility]01-22-2025 Telephone encounter Note* Telephone Encounter - Ashley [...] nurse for this message. Ashley Grant RN [facility]01-22-2025 Telephone encounter Note* Telephone Encounter - Ashley [...] well. Patient voiced understanding. Ashley Grant RN [facility]01-16-2025 Telephone encounter Note* Telephone Encounter - Danae Willett APRN.CNP - 02/21/2024 4:47 PM EST The following approved medication requests have been transmitted electronically. Requested Prescriptions Pending Prescriptions Disp Refills losartan (COZAAR) 25 mg tablet 90 tablet 3 Sig: Take 1 tablet by mouth once daily. Danae Willett APRN.CNP [facility]01-16-2025 Miscellaneous Notes* Telephone Encounter - Danae Willett APRN.CNP - 02/21/2024 4:47 PM EST The following approved medication requests have been transmitted electronically. Requested Prescriptions Pending Prescriptions Disp Refills losartan (COZAAR) 25 mg tablet 90 tablet 3 Sig: Take 1 tablet by mouth once daily. Danae Willett APRN.CNP * Telephone Encounter - Marina Mathews [...] 21, 2024 8:15 AM documented in this encounterRegency Hospital [facility]01-16-2025 Telephone encounter Note * Telephone Encounter - [...] Marina Mathews February 21, 2024 8:15 AM [facility]12-31-2024 Telephone encounter Note* Telephone Encounter - Ashley [...] other recommendations are advised. Ashley Grant RN [facility]12-31-2024 Miscellaneous Notes* Telephone Encounter - Ashley Grant [...] advised. Ashley Grant RN documented in this encounterRegency Hospital [facility]12-31-2024 Telephone encounter Note * Telephone Encounter - Ashley Grant RN - 02/05/2024 8:09 AM EST Patient returned call and given provider's message below and patient verbalized understanding. Patient plans to keep appt with Dr. Johnson for 02/18/24. Amy Grant RN [facility]12-31-2024 Miscellaneous Notes* Telephone Encounter - Ashley Garnt RN - 02/05/2024 8:09 AM EST Patient [...] is removed. * Telephone Encounter - Ashley Stodadrd - 02/04/2024 9:50 AM EST Patient was seen at [facility] ER on 01/29 cath was placed and advised for removal in 3-5 days. I did check with urology [facility]24 at [facility]. Patient called Dr Johnson and there first opening was 02/17 and that is why he was calling us for a sooner appointment , patient upset PCP would not remove sooner and declined to arrange his ER follow up documented in this encounterRegency Hospital [facility]12-30-2024 Telephone encounter Note * Telephone Encounter - Kay Anguiano RN - 02/04/2024 6:12 PM EST Called and left a voicemail for the Patient to call back and ask for a nurse to receive the providers message. Kay Babulski, RN [facility]12-30-2024 Telephone encounter Note* Telephone Encounter - Karla [...] urinate again once the catheter is removed. [facility]12-30-2024 Telephone encounter Note* Telephone Encounter - Ashley Stoddard - 02/04/2024 9:50 AM EST Patient was seen at [facility] ER on 01/29 cath was placed and advised for removal in 3-5 days. I did check with urology [facility] 02/15/24 at [facility]. Patient called Dr Johnson and there first opening was 02/17 and that is why he was calling us for a sooner appointment , patient upset PCP would not remove sooner and declined to arrange his ER follow up [facility]12-27-2024 NoteHNO ID: [id number] Author: GUS SANCHEZ APRN.MARK Service: ?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 episode of care unspecified 08/10/06 STENT placed [facility] Alcohol abuse 05/22/2013 Chronic anxiety 10/22/2017 [...] gesture Radius fracture 06/21/[address] [facility] Tobacco abuse 05/22/2013 Urinary calculus, unspecified 01/05 [...] Never done COVID-19 VACCINE(4 - Booster for [employer] series) due on 03/07/2021 LDL CHOLESTEROL due [...] instructions. Ida Hatfield PA-C documented in this encounterRegency Hospital [facility] West06-22-2023 Miscellaneous Notes* Telephone Encounter - Pallavi Augustine [...] additional to facesheet and demographics. Faxed to [phone]. Pallavi Augustine Ma * Telephone Encounter - Ida Hatfield PA-C - 07/27/2022 3:41 PM EDT Telephone on 07/27/22 CONSULT TO VASCULAR SURGERY Thanks, Dayne Hatfield PA-C * Telephone Encounter - Betty Flores LPN - 07/27/2022 1:36 PM EDT Pt requesting a referral to [facility] [address] in [place]. Problem with veins in legs with very little blood flow. Also requesting any testing and office notes relatedto this sent to them. Pt has only has a phone number of [phone]. Pt states he saw Dr. Kenny last here in [place] but she said per pt there was nothing she could do. Asking to let him know when this is placed so he can call for appt. documented in this encounterRegency Hospital [facility] West05-30-2023 Instructions* Patient Instructions* Noris Perez APRN.MARK - 07/04/2022 1:25 PM EDT Start miralax once a day. May also use colace as directed on packaging. Increase fiber in diet- mayuse a supplement documented in this encounterRegency Hospital [facility] West05-30-2023 History of Present illness Narrative* Noris Perez APRN.MARK - 07/04/2022 1:12 PM EDT 07/04/2022 Patient [...] episode of care unspecified 08/10/06 STENT placed [facility] Alcohol abuse 05/22/2013 Chronic anxiety 10/22/2017 [...] gesture Radius fracture 06/21/[address] [facility] Tobacco abuse 05/22/2013 Urinary calculus, unspecified 01/05 Renal stone right side; 3 episodes with stones altogether with extraction in 1960 ALLERGIES Dust Mites, Lipitor [Atorvastatin], Lisinopril, Penicillins, [...] to ER with red flag symptoms Noris Podlogar, MIXING MACHINE TENDER [employer].HOTEL ASSISTANT GENERAL MANAGER Prescription instructions reviewed with patient as applicable. [...] which included preparing to see the patient, dgmf-es-bxxn patient care, completing clinical documentation, obtaining and/or reviewing separately obtained history, performing a medically appropriate examination, counseling and educating the pat ient/family/caregiver, and ordering medications, tests, or procedures. documented in this encounterRegency Hospital [facility]04-19-2023 Miscellaneous Notes* Telephone Encounter - Vandana Turner Pss - 05/24/2022 4:55 PM EDT Patient has been identified by name and date of : Yes Requested Prescriptions Pending Prescriptions Disp Refills metoprolol tartrate, short acting, (LOPRESSOR) 100 mg tablet 180 tablet 3 Sig: Take 1 tablet by mouth twice daily. RX INSTRUCTIONS: Patient aware RX will be sent to pharmacy. No need to notify patient. Vandana Turner Pss documented in this encounterRegency Hospital [facility]03-17-2023 Miscellaneous Notes* Telephone Encounter - Sarah Ernandez RN - 04/21/2022 9:21 AM EDT Patient calls and states that completely gone yet. Patient asking if provider can send in a refill prescription for cough syrup? Please review and advise, Sarah Ernandez RN documented in this encounterRegency Hospital [facility]03-07-2023 Miscellaneous Notes* Telephone Encounter - Ca Colby Pss - 04/11/2022 2:11 PM EST Patient needs these scripts sent to [facility]. Said he was seen on Sunday and they were sent to mail order. Mail order told him they won't arrive for at least another week. He would like to be call at [phone] when sent. * Telephone Encounter - Ca Colby Pss - 04/11/2022 2:10 PM EST Patient has [...] to the pharmacy. Please call patient at: [phone] Ca Rincon documented in this encounterRegency Hospital [facility]03-06-2023 Miscellaneous Notes* Telephone Encounter - Amarilys Angel [...] dropped to 2.79 with pattern of BPH Thanks, Dayne Hatfield PA-C documented in this encounterRegency Hospital [facility]03-04-2023 Miscellaneous Notes* Telephone Encounter - Danay Bennett [...] for COVID and flu. documented in this encounterRegency Hospital [facility] West03-02-2023 Instructions* Patient Instructions* Thien Stanton APRN.MARK - [...] healthcare provider to share your information with [employer],then your healthcare provider will report your use of molnupiravir during to [employer]. by calling or Pregnancyreporting.FirstRain. For individuals who are sexually active with [...] molnupiravir for the treatment of adults with wbwc-bo-icpaynvq coronavirus disease 2019 (COVID-19) with positive results [...] virus. COVID-19 illnesses have ranged from very cdhk-jx-voibvw, including illness resulting in . While information [...] is an investigational medicine used to treat dzja-fv-uqerukrk COVID-19 in adults: with positive results of [...] serious illnesses Are taking any medicines (prescription, tmjq-gtu-fbnjxxc, vitamins, or herbal products). How do I [...] to treat people with COVID-19. Go to https://www.fda.gov/zlryhqwic-dibvpfnnvseq-mws-response/dpl-yyocowkohcskjkn-nde- policy-framework/lygtseqtz-tbq-zkvyjgqcjnusg for more information. It is your choice [...] go away. Report side effects to FDA Beegit at www.fda.gov/medwatch or call 9-785-XMH-3310 ( ). How should I store molnupiravir? Store molnupiravir capsules at room temperature between 68 F to 77 F (20 C to 25 C). Keep molnupiravir and all medicines out of the reach of children and pets. How can I learn more about COVID-19? Ask your healthcare provider. Visit www.cdc.gov/COVID19 Contact your local or state public health department. Call [employer] at (toll free in the [place] Visit www.Ubertesters What Is an Emergency Use Authorization (EUA)? The [place] FDA has made molnupiravir available under an emergency access mechanism called an Emergency Use Authorization (EUA) The EUA is supported by a [place] of Health and Human Service (HHS) declaration that circumstances exist to justify emergency use of drugs and biological products during the COVID-19 pandemic. Molnupiravir for the treatment of drws-pj-mxzsuqir COVID-19 in adults with positive results of [...] used under the EUA). For patent information: www.Provigent.[employer]/research/patent Copyright 2020 [employer]ck & Co[employer] Inc[employer] [place], [place] and its affiliates. All rights reserved. [id number] Issued: 01/27/2021 Revised: 22 April 2021 RESPIRATORY [...] spread by coughs, sneezes, anddirect contact, especially icza-ka-joks. A respiratory tract infection usually clears up [...] healthcare provider to share your information with [employer]SpreadShout,then your healthcare provider will report your use of molnupiravir during to [employer]. by calling or Pregnancyreporting.FirstRain. For individuals who are sexually active with [...] molnupiravir for the treatment of adults with bgsv-lz-ipofryai coronavirus disease 2019 (COVID-19) with positive results [...] virus. COVID-19 illnesses have ranged from very bued-qy-nzwmfq, including illness resulting in . While information [...] is an investigational medicine used to treat nvrg-bc-nmimqwrs COVID-19 in adults: with positive results of [...] serious illnesses Are taking any medicines (prescription, vpwh-rjy-smtfbdy, vitamins, or herbal products). How do I [...] to treat people with COVID-19. Go to https://www.fda.gov/eaahasfbi-gvhthtzjimxm-tpy-response/xkw-jvrctrlmnzzrvbq-hzq- policy-framework/vahrqhpvr-dsx-rtjipptsmojmp for more information. It is your choice [...] to FDA MedWatch at www.fda.gov/medwatch or call 2-361-ESX-0280 ( ). How should I store molnupiravir? Store molnupiravir capsules at room temperature between 68 F to 77 F (20 C to 25 C). Keep molnupiravir and all medicines out of the reach of children and pets. How can I learn more about COVID-19? Ask your healthcare provider. Visit www.cdc.gov/COVID19 Contact your local or state public health department. Call [employer] at (toll free in the [place] Visit www.molnupiravir.[employer] What Is an Emergency Use Authorization (EUA)? The [place] FDA has made molnupiravir available under an emergency access mechanism called an Emergency Use Authorization (EUA) The EUA is supported by a [employer] [place] of Health and Human Service ([facility]) declaration that circumstances exist to justify emergency use of drugs and biological products during the COVID-19 pandemic. Molnupiravir for the treatment of casi-yb-yflamkoo COVID-19 in adults with positive results of [...] used under the EUA). For patent information: www.[employer]/research/patent Copyright 2020 [employer] [place], [place] and its affiliates. All rights reserved. [id number] Issued: 01/27/2021 [facility] History of Present illness Narrative* Thien Stanton, MIXING MACHINE TENDER [employer].HOTEL ASSISTANT GENERAL MANAGER - 04/06/2022 12:39 PM EST Images from [...] episode of care unspecified 08/10/06 STENT placed [facility] Alcohol abuse 05/22/2013 Chronic anxiety 10/22/2017 [...] gesture Radius fracture 06/21/[address] [facility] Tobacco abuse 05/22/2013 Urinary calculus, unspecified 01/05 [...] for covid. Molnupiravir Eligibility and Patient Discussion [facility] Formulary Restriction Criteria: Adult outpatients 18 years [...] to proceeding with molnupiravir treatment. Thien Stanton APRN.MARK April 06, 2022 2:30 PM ASSESSMENT/PLAN: 1. Suspected COVID-19 virus infection - ICD9: V01.79, ICD10: Z20.822 (primary diagnosis) Printed rx for covid treatment If positive will need to come in and sampler pickup rx and fact sheet If negative for [...] 2020. - COMP METABOLIC PANEL Thien Stanton APRN.MARK documented in this encounter[facility]22 Miscellaneous Notes* Telephone Encounter - Mariaa Silver LPN - 11/08/2021 4:11 PM EDT Patient is calling for refill of an eye drop, realized that he gets from his eye doctor. Patient to call that office. Mariaa Silver LPN documented in this encounter[facility]2017 History of Past illness Narrative* Problem Noted Date Resolved Date Malnutrition of mild degree 04/11/2016 02/2 04/2017 Hypoxemia 03/05/2016 03/17/2016 Pneumonia 03/05/2016 03/17/2016 Acute [...] of this encounter (statuses as of 11/08/2021) [facility] History of Past illness Narrative* Problem Noted [...] of this encounter (statuses as of 04/06/2022) [facility] History of Past illness Narrative* Problem Noted [...] of this encounter (statuses as of 04/08/2022) [facility] History of Past illness Narrative* Problem Noted [...] of this encounter (statuses as of 04/10/2022) [facility] History of Past illness Narrative* Problem Noted [...] of this encounter (statuses as of 04/12/2022) [facility] History of Past illness Narrative* Problem Noted [...] of this encounter (statuses as of 04/21/2022) [facility] History of Past illness Narrative* Problem Noted [...] of this encounter (statuses as of 05/25/2022) [facility] History of Past illness Narrative* Problem Noted [...] of this encounter (statuses as of 07/05/2022) [facility] History of Past illness Narrative* Problem Noted [...] of this encounter (statuses as of 07/28/2022) [facility] History of Past illness Narrative* Problem Noted [...] of this encounter (statuses as of 08/11/2022) [facility] History of Past illness Narrative* Problem Noted [...] of this encounter (statuses as of 10/04/2022) [facility] History of Past illness Narrative* Problem Noted Date Diagnosed Date Resolved Date Malnutrition of mild degree 04/11/2016 03/30/2017 Hypoxemia 03/05/2016 03/17/2016 Pneumonia 03/05/2016 03/17/2016 Acute blood loss anemia 03/02/2016 08/0 03/2017 Occult blood in stools 05/10/201503/17 Depression 05/10/2015 03/30/2017 Guaiac positive stools 05/07/201503/17 UTI (lower urinary tract infection) 09/23/2013 2014 BPH (benign prostatic hyperplasia) 09/23/2013 2016 Dupuytren's contracture of left hand 01/25/2012 09/06/2017 Sinus congestion 12/12/2011 2016 Carotid artery bruit 11/20/2008 012 documented as of this encounter (statuses as of 10/10/2022) [facility] History of Past illness Narrative* Problem Noted Date Diagnosed Date Resolved Date Malnutrition of mild degree 04/11/2016 03/30/2017 Hypoxemia 03/05/2016 03/17/2016 Pneumonia 03/05/2016 03/17/2016 Acute blood loss anemia 03/02/2016 08/0 03/2017 Occult blood in stools 05/10/201503/17 Depression 05/10/2015 03/30/2017 Guaiac positive stools 05/07/201503/17 UTI (lower urinary tract infection) 09/23/2013 2014 BPH (benign prostatic hyperplasia) 09/23/2013 2016 Dupuytren's contracture of left hand 01/25/2012 09/06/2017 Sinus congestion 12/12/2011 2016 Carotid artery bruit 11/20/2008 012 documented as of this encounter (statuses as of 10/16/2022) [facility] History of Past illness Narrative* Problem Noted [...] of this encounter (statuses as of 11/17/2022) [facility] History of Past illness Narrative* Problem Noted Date Diagnosed Date Resolved Date Malnutrition of mild degree 04/11/2016 03/30/2017 Hypoxemia 03/05/2016 03/17/2016 Pneumonia 03/05/2016 03/17/2016 Acute blood loss anemia 03/02/2016 08/0 03/2017 Occult blood in stools 05/10/201503/17 Depression 05/10/2015 03/30/2017 Guaiac positive stools 05/07/201503/17 UTI (lower urinary tract infection) 09/23/2013 2014 BPH (benign prostatic hyperplasia) 09/23/2013 2016 Dupuytren's contracture of left hand 01/25/2012 09/06/2017 Sinus congestion 12/12/2011 2016 Carotid artery bruit 11/20/2008 012 documented as of this encounter (statuses as of 12/01/2022) [facility] History of Past illness Narrative* Problem Noted [...] of this encounter (statuses as of 12/12/2022) [facility] History of Past illness Narrative* Problem Noted [...] of this encounter (statuses as of 01/12/2023) [facility] History of Past illness Narrative* Problem Noted Date Diagnosed Date Resolved Date Malnutrition of mild degree 04/11/2016 03/30/2017 Hypoxemia 03/05/2016 03/17/2016 Pneumonia 03/05/2016 03/17/2016 Acute blood loss anemia 03/02/2016 08/0 03/2017 Occult blood in stools 05/10/201503/17 Depression 05/10/2015 03/30/2017 Guaiac positive stools 05/07/201503/17 UTI (lower urinary tract infection) 09/23/2013 2014 BPH (benign prostatic hyperplasia) 09/23/2013 2016 Dupuytren's contracture of left hand 01/25/2012 09/06/2017 Sinus congestion 12/12/2011 2016 Carotid artery bruit 11/20/2008 012 documented as of this encounter (statuses as of 01/26/2023) [facility] History of Past illness Narrative* Problem Noted [...] of this encounter (statuses as of 04/12/2023) [facility] History of Past illness Narrative* Problem Noted Date Diagnosed Date Resolved Date Malnutrition of mild degree 04/11/2016 03/30/2017 Hypoxemia 03/05/2016 03/17/2016 Pneumonia 03/05/2016 03/17/2016 Acute blood loss anemia 03/02/2016 08/0 03/2017 Occult blood in stools 05/10/201503/17 Depression 05/10/2015 03/30/2017 Guaiac positive stools 05/07/201503/17 UTI (lower urinary tract infection) 09/23/2013 2014 BPH (benign prostatic hyperplasia) 09/23/2013 2016 Dupuytren's contracture of left hand 01/25/2012 09/06/2017 Sinus congestion 12/12/2011 2016 Carotid artery bruit 11/20/2008 012 documented as of this encounter (statuses as of 05/25/2023) [facility] Author Lucien Matthews [facility] Note Date/Time May 18, 2024 6:5 8am [facility] Medical Records Department [address] [place] [address] Emergency Department Summary 05/18/24 MR#: [id number] Acct: [id number] Name: RAMONITA EL Rep #:[id number] : 1940 84 From: Lucien Post PCP: RAYO Pillai Status:REG E R Location: ED HPI History of Present Illness Chief Complaint: Shortness of [facility]ath [facility] Medical History Alcohol use Prostate disease Easy [...] mg tablet 75 mg PO DAILY 05/02/16 10/07/26 History tamsulosin 0.4 mg capsule (Flomax) 0.4 [...] reviewed, Vital signs reviewed Constitutional: please see [facility] HENT: MMM Eyes: Pupils equal round and [...] History obtained from others: none Consults: none [facility] Narrative: The patient was initially hypertensive [...] with normal sinus rhythm, normal axis, prolonged OR interval, first-degree block, QTc 459, no obvious [...] a.m. physician This note was generated with [employer] dictation software. It may contain incorrectwords, spelling, [...] 75.2 H Lymph % (Auto) 14.4 L [place] % (Auto) 8.5 Eos % (Auto) 0.8 [...] Karla Baron NP Referrals: Karla Baron NP, MANAGER FORENSIC-C [Primary Care Provider] - Activity Restrictions/Additional Instructions: [...] for further outpatient evaluationand management. Print Language: Finnish Disposition Disposition: Home, Self Care What to do if you have Problems For any increased pain, shortness of breath, bleeding, nausea or vomiting, chestpain, or any unexpected problems, contact your Primary Care Provider. Call [facility] ([phone]) or report to the closest Emergency Room. Call 911 if necessary. 05/18/24 0658 <Electronically signed by Lucien Matthews DO> Cosigner Signature (if applicable): CC: RAYO Baron ~ Signed [facility] Work Phone: Discharge summary Author Nilesh Mccullough [facility] Note Date/Time July 29, 2024 7:17 am [facility] Medical Records Department [address] [place] [address] Emergency Department Summary 07/29/24 MR#: [id number] Acct: [id number] Name: RAMONITA EL Rep #:[id number] : 1940 84 From: Nilesh Mccullough MD PCP: RAYO Pillai Status:REG E R Location: ED HPI History of Present Illness Chief Complaint: Lower Extremity Injury Informant: patient Narrative Narrative: 84-year-old male presenting with about 3 weeks of gradual onset worsening left knee pain. He says it hurts to move and hurts to walk but he is able to do both. He denies any systemic symptoms such as fevers or chills. He denies any redness or warmth or swelling. He cannot remember any injury. He mostly feels discomfort in the popliteal space. No significant calf pain with this but he does get bilateral calf and thigh pain with exertion, maybe 100 feet or so, he states that is been going on for years and unchanged. He is scheduled for vascular surgery on his carotid with Dr. Demarco a couple weeks from now. He takes clopidogrel. No history of DVT or PE, and he has not been immobilized recently or hospitalized or had any recent surgeries. 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) Encounter for pre-operative cardiovascular clearance Hypertrophy of prostate with urinary obstruction 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 Atherosclerosis of coronary artery without angina pectoris Essential hypertension Alcoholism Home Medications ?Medication ?Instructions ?Recorded ?Last Taken ?Type amlodipine 10 mg tablet 10 mg PO DAILY 05/02/16 1104/25 04:00 History clopidogrel 75 mg tablet 75 mg PO DAILY 05/02/1611/06 History tamsulosin 0.4 mg capsule (Flomax) 0.4 mg PO DAILY 12/07/20 History metoprolol tartrate 100 mg tablet 100 mg PO BID 12/08/20 04:00 History pantoprazole 20 mg tablet,delayed 20 mg PO DAILY 11/0912/07/20 History release (Protonix) gabapentin 300 mg capsule 300 mg PO TID 07/17/24 Unkno wn History losartan 25 mg tablet 25 mg PO QDAY 07/17/24 Unkno wn History finasteride 5 mg tablet 5 mg PO QDAY 07/25/24 Unknow n History hydroxyzine HCl 25 mg tablet 25 mg PO TID PRN 07/25/24 Unknown History tizanidine 4 mg tablet 4 mg PO QHS PRN 07/25/24 Unk nown History tramadol 50 mg tablet 50 mg PO BID PRN 07/25/24 Un known History prednisone 20 mg tablet 40 mg (2 x 20 mg) PO DAILY 6 days 07/29/24 Unknown Rx #12 tabs Allergy/AdvReac Type Severity Reaction Status Date / Time cilostazol (From Pletal) Allergy Intermediate PT UNSURE Verified 07/29/24 06:15 OF REACTION lisinopril Allergy Intermediate PT UNSURE Verified 07/29/24 06:15 OF REACTION Penicillins Allergy Hives Verified 07/29/24 06:15 atorvastatin AdvReac Intermediate myalgia Verified 07/29/24 06:15 pravastatin AdvReac Intermediate myalgia Verified 07/29/24 06:15 Family History Mother Cancer Brother Heart disease Surgical History History of angioplasty of peripheral vessel (09/28/09) History of coronary artery stent placement (08/10/06) Social History Smoking Status: Heavy Smoker (>10/day) alcohol intake: current alcohol intake frequency: a few times a month substance use type: does not use ROS ROS ED Constitutional Constitutional ED: Denies chills or fever(s) Cardiovascular Cardiovascular: Denies leg edema or orthopnea Respiratory/Chest Respiratory/Chest: Denies orthopnea Musculoskeletal Musculoskeletal: Reports extremity pain and other Details: Claudication see HPI ; Denies neck pain Integumentary Denies Abrasions, rash or wounds Neurologic Neurologic: Denies paresthesias or weakness EXAM Physical Exam Const Vital Signs: 07/29/24 06:16 Temperature 97.7 F L Temperature Source Oral Pulse Rate 62 Respiratory Rate 18 Blood Pressure 154/61 H Blood Pressure Mean 92 Pulse Ox 98 Oxygen Delivery Method Room Air Positive well nourished and well developed General Appearance ED: well developed and NAD HEENT normocephalic and atraumatic Neck full ROM and supple Resp normal respiratory effort Back/Spine normal ROM and normal to inspection Extremity Extremity Narrative: Left knee is normal on inspection. There is no effusion. There is no bony tenderness. He can range and almost fully, limited extreme flexion but he is able to extend without difficulty. If I range passively he has less issue. Popliteal space feels normal and is nontender if he is not moving it. Negative Homans. No peripheral edema. No palpable cords. No swelling about the knee atall or erythema/increased warmth. All ligaments are stable with short endpoints, and there is no significant discomfort on stressing. Negative anterior and posterior drawer signs. Neuro oriented x3, no focal motor deficits and no sensory deficits noted Sensorium / Orientation: alert Psych mental status grossly normal and thought process normal Skin no wounds Rashes: no rashes MDM MDM MDM Narrative Medical decision making narrative: 4 view x-ray series of the left knee is obtained and on my interpretation shows no acute abnormality. Radiology adding that there is a small joint effusion. Chase not detect this clinically. This is inconsistent with a septic arthritis or crystal induced arthritis, my suspicion is that this could be osteoarthritis or could be a soft tissue injury such as meniscus injury or sprain although his ligaments are not the source of his pain on exam, or a Orlando's cyst although thepatient presents during a time when vascular ultrasound is not available. My suspicion for DVT is extremely low. He does not have specific risk for that, has never had 1 before, he does not have any peripheral edema or calf tenderness, and he is on clopidogrel. I am going to place him in an Jerry wrap, give him a short course of prednisone to see if that helps and refer him to orthopedics. He is comfortable with that plan. Radiography Diagnostic Testing: Clinical Impression(s) from Imaging Studies Knee X-Ray 07/29/24 06:40 IMPRESSION: There is no fracture or dislocation. There is a small visible joint effusion. Reading Location: [facility] Discharge Plan Triage Chief Complaint: Lower Extremity Injury ED Provider: Nilesh Mccullough Dx/Rx/DC Orders Clinical Impression: Acute pain of left knee Instructions: Knee Pain Prescriptions: New prednisone 20 mg tablet 40 mg PO DAILY 6 Days Qty: 12 0RF No Action metoprolol tartrate 100 mg tablet 100 mg PO BID Patient Comments: TAKE 1 TABLET BY MOUTH TWICE DAILY. pantoprazole [Protonix] 20 mg tablet,delayed release (DR/EC) 20 mg PO DAILY losartan 25 mg tablet 25 mg PO QDAY gabapentin 300 mg capsule 300 mg PO TID tramadol 50 mg tablet 50 mg PO BID PRN finasteride 5 mg tablet 5 mg PO QDAY hydroxyzine HCl 25 mg tablet 25 mg PO TID PRN tizanidine 4 mg tablet 4 mg PO QHS PRN clopidogrel 75 MG tablet 75 mg PO DAILY tamsulosin [Flomax] 0.4 MG capsule 0.4 mg PO DAILY amlodipine 10 MG tablet 10 mg PO DAILY Primary Care Provider: Karla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 Confidentiality of Alcohol and Drug Abuse Patient Records regulations: The Federal rules restrict any use of the information to criminally investigate or prosecute any alcohol or drug abuse patient.[facility] the event this information is protected by the Federal Confidentiality of Alcohol and Drug Abuse Patient Records regulations: The Federal rules restrict any use of the information to criminally investigate or prosecute any alcohol or drug abuse patient.[facility] the event this information is protected by the Federal Confidentiality of Alcohol and Drug Abuse Patient Records regulations: The Federal rules restrict any use of the information to criminally investigate or prosecute any alcohol or drug abuse patient.[facility] the event this information is protected by the Federal Confidentiality of Alcohol and Drug Abuse Patient Records regulations: The Federal rules restrict any use of the information to criminally investigate or prosecute any alcohol or drug abuse patient.[facility] the event this information is protected by the Federal Confidentiality of Alcohol and Drug Abuse Patient Records regulations: The Federal rules restrict any use of the information to criminally investigate or prosecute any alcohol or drug abuse patient.[facility] the event this information is protected by the Federal Confidentiality of Alcohol and Drug Abuse Patient Records regulations: The Federal rules restrict any use of the information to criminally investigate or prosecute any alcohol or drug abuse patient.[facility] the event this information is protected by the Federal Confidentiality of Alcohol and Drug Abuse Patient Records regulations: The Federal rules restrict any use of the information to criminally investigate or prosecute any alcohol or drug abuse patient.[facility] the event this information is protected by the Federal Confidentiality of Alcohol and Drug Abuse Patient Records regulations: The Federal rules restrict any use of the information to criminally investigate or prosecute any alcohol or drug abuse patient.[facility] the event this information is protected by the Federal Confidentiality of Alcohol and Drug Abuse Patient Records regulations: The Federal rules restrict any use of the information to criminally investigate or prosecute any alcohol or drug abuse patient.[facility] the event this information is protected by the Federal Confidentiality of Alcohol and Drug Abuse Patient Records regulations: The Federal rules restrict any use of the information to criminally investigate or prosecute any alcohol or drug abuse patient.[facility] the event this information is protected by the Federal Confidentiality of Alcohol and Drug Abuse Patient Records regulations: The Federal rules restrict any use of the information to criminally investigate or prosecute any alcohol or drug abuse patient.[facility] the event this information is protected by the Federal Confidentiality of Alcohol and Drug Abuse Patient Records regulations: The Federal rules restrict any use of the information to criminally investigate or prosecute any alcohol or drug abuse patient.[facility] the event this information is protected by the Federal Confidentiality of Alcohol and Drug Abuse Patient Records regulations: The Federal rules restrict any use of the information to criminally investigate or prosecute any alcohol or drug abuse patient.[facility] the event this information is protected by the Federal Confidentiality of Alcohol and Drug Abuse Patient Records regulations: The Federal rules restrict any use of the information to criminally investigate or prosecute any alcohol or drug abuse patient.[facility] the event this information is protected by the Federal Confidentiality of Alcohol and Drug Abuse Patient Records regulations: The Federal rules restrict any use of the information to criminally investigate or prosecute any alcohol or drug abuse patient.[facility] the event this information is protected by the Federal Confidentiality of Alcohol and Drug Abuse Patient Records regulations: The Federal rules restrict any use of the information to criminally investigate or prosecute any alcohol or drug abuse patient.[facility] the event this information is protected by the Federal Confidentiality of Alcohol and Drug Abuse Patient Records regulations: The Federal rules restrict any use of the information to criminally investigate or prosecute any alcohol or drug abuse patient.[facility] the event this information is protected by the Federal Confidentiality of Alcohol and Drug Abuse Patient Records regulations: The Federal rules restrict any use of the information to criminally investigate or prosecute any alcohol or drug abuse patient.[facility] West[facility] the event this information is protected by the Federal Confidentiality of Alcohol and Drug Abuse Patient Records regulations: The Federal rules restrict any use of the information to criminally investigate or prosecute any alcohol or drug abuse patient.[facility] WestIn the event this information is protected by the Federal Confidentiality of Alcohol and Drug Abuse Patient Records regulations: The Federal rules restrict any use of the information to criminally investigate or prosecute any alcohol or drug abuse patient.[facility] WestIn the event this information is protected by the Federal Confidentiality of Alcohol and Drug Abuse Patient Records regulations: The Federal rules restrict any use of the information to criminally investigate or prosecute any alcohol or drug abuse patient.[facility] West[facility] the event this information is protected by the Federal Confidentiality of Alcohol and Drug Abuse Patient Records regulations: The Federal rules restrict any use of the information to criminally investigate or prosecute any alcohol or drug abuse patient.[facility] WestIn the event this information is protected by the Federal Confidentiality of Alcohol and Drug Abuse Patient Records regulations: The Federal rules restrict any use of the information to criminally investigate or prosecute any alcohol or drug abuse patient.[facility] West[facility] the event this information is protected by the Federal Confidentiality of Alcohol and Drug Abuse Patient Records regulations: The Federal rules restrict any use of the information to criminally investigate or prosecute any alcohol or drug abuse patient.[facility] the event this information is protected by the Federal Confidentiality of Alcohol and Drug Abuse Patient Records regulations: The Federal rules restrict any use of the information to criminally investigate or prosecute any alcohol or drug abuse patient.[facility] WestIn the event this information is protected by the Federal Confidentiality of Alcohol and Drug Abuse Patient Records regulations: The Federal rules restrict any use of the information to criminally investigate or prosecute any alcohol or drug abuse patient.[facility] WestIn the event this information is protected by the Federal Confidentiality of Alcohol and Drug Abuse Patient Records regulations: The Federal rules restrict any use of the information to criminally investigate or prosecute any alcohol or drug abuse patient.[facility] the event this information is protected by the Federal Confidentiality of Alcohol and Drug Abuse Patient Records regulations: The Federal rules restrict any use of the information to criminally investigate or prosecute any alcohol or drug abuse patient.[facility] the event this information is protected by the Federal Confidentiality of Alcohol and Drug Abuse Patient Records regulations: The Federal rules restrict any use of the information to criminally investigate or prosecute any alcohol or drug abuse patient.[facility] WestIn the event this information is protected by the Federal Confidentiality of Alcohol and Drug Abuse Patient Records regulations: The Federal rules restrict any use of the information to criminally investigate or prosecute any alcohol or drug abuse patient.[facility] WestIn the event this information is protected by the Federal Confidentiality of Alcohol and Drug Abuse Patient Records regulations: The Federal rules restrict any use of the information to criminally investigate or prosecute any alcohol or drug abuse patient.[facility] WestIn the event this information is protected by the Federal Confidentiality of Alcohol and Drug Abuse Patient Records regulations: The Federal rules restrict any use of the information to criminally investigate or prosecute any alcohol or drug abuse patient.[facility] WestIn the event this information is protected by the Federal Confidentiality of Alcohol and Drug Abuse Patient Records regulations: The Federal rules restrict any use of the information to criminally investigate or prosecute any alcohol or drug abuse patient.[facility] WestIn the event this information is protected by the Federal Confidentiality of Alcohol and Drug Abuse Patient Records regulations: The Federal rules restrict any use of the information to criminally investigate or prosecute any alcohol or drug abuse patient.[facility] WestIn the event this information is protected by the Federal Confidentiality of Alcohol and Drug Abuse Patient Records regulations: The Federal rules restrict any use of the information to criminally investigate or prosecute any alcohol or drug abuse patient.[facility] Reason for Visit (unrecogniz ed section and [...] finger Specialty Diagnoses / Procedures Referred By Katy francisco Referred To Contact Orthopedics Diagnoses Dupuytren's contracture of left hand Procedures CONSULT TO ORTHOPAEDICS OFFICE/OUTPATIENT [facility] 60 MINUTES Ida Hatfield PA-C [address] [place] [address] Referral ID Status Reason Start Date Expiration Date V isits Requested Visits Authorized [id number] Closed PCP Requested Referral 05/24/2023 05/23/2024 1 1 Reason Comments Established Patient Aponeurotomy left 4th finger Reason Onset Date Comments Refill Request 10/22/2023 Reason Onset Date Comments 6 Month Exam Immunizations 11/27/2023 Flu vaccination Reason Comments Rectal Problem Blood in stool FYI-No Action Needed Reason Comments Medication Problem Reason Comments Consult Colonoscopy consulta tion, positive FOBT. Specialty Diagnoses / Procedures Referred By Katy francisco Referred To Contact General Surgery Diagnoses Positive occult stool blood test Procedures CONSULT TO GENERAL SURGERY OFFICE/OUTPATIENT [facility] 60 MINUTES Danae Willett APRN.HOTEL ASSISTANT GENERAL MANAGER [address] [place] [address] Referral ID Status Reason Start Date Expiration Date V isits Requested Visits Authorized [id number] Closed PCP Requested Referral 12/03/2023 12/02/2024 1 [...] month follow up Reason Comments Consult to [facility] Vascular Surg ren Reason Onset Date Comments Refill Request 08/29/2024 Care Teams (unrecognized sec tion and content) Plate Slitter And Inspector Relationship Specialty Start Date End Date Ida Hatfield PA-C [address] [place], [place] [id number] PCP - General Family Medicine 09/23/20 Plate Slitter And Inspector Relationship Specialty Start Date End Date Ida Hatfield PA-C [address] [place], [place] [address] PCP - General Family Medicine 09/23/20 Plate Slitter And Inspector Relationship Specialty Start Date End Date Ida Hatfield PA-C [address] [place], [place] [address] [phone] PCP - General Family Medicine 09/23/20 Plate Slitter And Inspector Relationship Specialty Start Date End Date Ida Hatfield PA-C [address] [place], [place] [address] [phone] PCP - General Family Medicine 09/23/20 Plate Slitter And Inspector Relationship Specialty Start Date End Date Ida Hatfield PA-C [address] [place] [address] PCP - General Family Medicine 09/23/20 Plate Slitter And Inspector Relationship Specialty Start Date End Date Ida Hatfield PA-C [address] [place] [address] PCP - General Family Medicine 09/23/20 Plate Slitter And Inspector Relationship Specialty Start Date End Date Ida Hatfield PA-C [address] [place] [address] PCP - General Family Medicine 09/23/20 Plate Slitter And Inspector Relationship Specialty Start Date End Date Ida Hatfield PA-C [address] [place] [address] PCP - General Family Medicine 09/23/20 Plate Slitter And Inspector Relationship Specialty Start Date End Date Ida Hatfield PA-C [address] [place] [address] PCP - General Family Medicine 09/23/20 Team Status: Active Member Role Status Dates Dr. Ismael Ruiz III, MD Family Provider Active KRISTI Harding Primary Care Provider Active Team Status: Inactive Member Role Status Dates KRISTI Harding Primary Care Provider Active Dr. Willis Mera MD Attending Provider, Referring Provider Active Plate Slitter And Inspector Relationship Specialty Start Date End Date Ida Hatfield PA-C [address] [place] [address] PCP - General Family Medicine 09/23/20 Plate Slitter And Inspector Relationship Specialty Start Date End Date Ida Hatfield PA-C [address] [place] [address] PCP - General Family Medicine 09/23/20 Plate Slitter And Inspector Relationship Specialty Start Date End Date Ida Hatfield PA-C [address] [facility] [place] [address] PCP - General Family Medicine 09/23/20 Plate Slitter And Inspector Relationship Specialty Start Date End Date Ida Hatfield PA-C [address] [facility] [place] [address] PCP - General Family Medicine 09/23/20 Plate Slitter And Inspector Relationship Specialty Start Date End Date Ida Hatfield PA-C [address] [facility] [place] [address] PCP - General Family Medicine 09/23/20 Plate Slitter And Inspector Relationship Specialty Start Date End Date Ida Hatfield PA-C [address] [place] [address] PCP - General Family Medicine 09/23/20 Plate Slitter And Inspector Relationship Specialty Start Date End Date Ida Hatfield PA-C [address] [place] [address] PCP - General Family Medicine 09/23/20 Team Status: Inactive Member Role Status KRISTI Peterson Primary Care Provider Active Dr. Lindy Blanco , DO Emergency Provider Active Plate Slitter And Inspector Relationship Specialty Start Date End Date Ida Hatfield PA-C [address] [facility] [place] [address] PCP - General Family Medicine 09/23/20 Plate Slitter And Inspector Relationship Specialty Start Date End Date Ida Hatfield PA-C [address] [facility] [place] [address] PCP - General Family Medicine 09/23/20 Plate Slitter And Inspector Relationship Specialty Start Date End Date Ida Hatfield PA-C [address] [facility] [place] [address] PCP - General Family Medicine 09/23/20 Plate Slitter And Inspector Relationship Specialty Start Date End Date Ida Hatfield PA-C [address] [facility] [place] [address] PCP - General Family Medicine 09/23/20 Plate Slitter And Inspector Relationship Specialty Start Date End Date Ida Hatfield PA-C [address] [place] [address] PCP - General Family Medicine 09/23/20 Plate Slitter And Inspector Relationship Specialty Start Date End Date Ida Hatfield PA-C [address] [place] [address] PCP - General Family Medicine 09/23/20 Plate Slitter And Inspector Relationship Specialty Start Date End Date Rina Hatfield PA-C PCP - General Family Medicine 09/23/20 Plate Slitter And Inspector Relationship Specialty Start Date End Date Karla Baron, MIXING MACHINE TENDER CORK ROD.HOTEL ASSISTANT GENERAL MANAGER [address] [place] [address] PCP - General Family Medicine 01/02/24 Plate Slitter And Inspector Relationship Specialty Start Date End Date Karla Baron, MIXING MACHINE TENDER CORK ROD.HOTEL ASSISTANT GENERAL MANAGER [address] [place] [address] PCP - General Family Medicine 01/02/24 Danae Willett, MIXING MACHINE TENDER CORK ROD.HOTEL ASSISTANT GENERAL MANAGER [address] [facility] [place] [address] Operations Controller Family Medicine 01/13/24 Aamir Meade MD [address] [place] [address] Operations Controller Family Medicine 01/13/24 Plate Slitter And Inspector Relationship Specialty Start Date End Date Karla Baron APRN.HOTEL ASSISTANT GENERAL MANAGER [address] [facility] [place] [place] [address] PCP - General Family Medicine 01/02/24 Danae Willett MIXING MACHINE TENDER CORK ROD.HOTEL ASSISTANT GENERAL MANAGER [address] [facility] [address] Operations Controller Family Medicine 01/13/24 Aamir Meade MD [address] [place] [address] Operations Controller Family Medicine 01/13/24 Plate Slitter And Inspector Relationship Specialty Start Date End Date Karla Baron APRN.HOTEL ASSISTANT GENERAL MANAGER [address] [place] [address] PCP - General Family Medicine 01/02/24 Danae Willett MIXING MACHINE TENDER CORK ROD.HOTEL ASSISTANT GENERAL MANAGER [address] [place] [address] Operations Controller Family Medicine 01/13/24 Aamir Meade MD [address] [place] [address] Operations Controller Family Medicine 01/13/24 Plate Slitter And Inspector Relationship Specialty Start Date End Date Karla Baron, MIXING MACHINE TENDER CORK ROD.HOTEL ASSISTANT GENERAL MANAGER [address] [place] [address] PCP - General Family Medicine 01/02/24 Danae Willett MIXING MACHINE TENDER CORK ROD.HOTEL ASSISTANT GENERAL MANAGER [address] [place] [address] Operations Controller Family Medicine 01/13/24 Aamir Meade MD [address] [place] [address] [facility] 01/13/24 Plate Slitter And Inspector Relationship Specialty Start Date End Date Karla Baron APRN.HOTEL ASSISTANT GENERAL MANAGER [address] [place] [address] PCP - General Family Medicine 01/02/24 Danae Willett APRN.HOTEL ASSISTANT GENERAL MANAGER [address] [facility] [place] [address] Operations [facility] 01/13/24 Aamir Meade MD [address] [facility] [place] [address] Operations [facility] 01/13/24 Plate Slitter And Inspector Relationship Specialty Start Date End Date Karla Baron APRN.HOTEL ASSISTANT GENERAL MANAGER [address] [place] [address] PCP - General Family Medicine 01/02/24 Danae Willett APRN.HOTEL ASSISTANT GENERAL MANAGER [address] [place] [address] Operations Controller Family Medicine 01/13/24 Aamir Meade MD [address] [facility] [place] [address] Operations [facility] 01/13/24 Plate Slitter And Inspector Relationship Specialty Start Date End Date Karla Baron APRN.HOTEL ASSISTANT GENERAL MANAGER [address] [place] [address] PCP - General Family Medicine 01/02/24 Danae Willett APRN.HOTEL ASSISTANT GENERAL MANAGER [address] [facility] [place] [address] Operations Controller Family Medicine 01/13/24 Aamir Meade MD [address] [facility] [place] [address] Operations Controller Family Medicine 01/13/24 Plate Slitter And Inspector Relationship Specialty Start Date End Date Karla Baron APRN.HOTEL ASSISTANT GENERAL MANAGER [address] [place] [address] PCP - General Family Medicine 01/02/24 Danae Willett APRN.HOTEL ASSISTANT GENERAL MANAGER [address] [facility] [place] [address] Operations Controller Family Medicine 01/13/24 Aamir Meade MD [address] [facility] [place] [address] Operations Controller Family Medicine 01/13/24 Plate Slitter And Inspector Relationship Specialty Start Date End Date Karla Baron APRN.HOTEL ASSISTANT GENERAL MANAGER [address] [place] [address] PCP - General Family Medicine 01/02/24 Danae Willett MIXING MACHINE TENDER CORK ROD.HOTEL ASSISTANT GENERAL MANAGER [address] [facility] [place] [address] Operations Controller Family Medicine 01/13/24 Aamir Meade MD [address] [facility] [place] [address] Operations Controller Family Medicine 01/13/24 Plate Slitter And Inspector Relationship Specialty Start Date End Date Karla Baron APRN.HOTEL ASSISTANT GENERAL MANAGER [address] [place] [address] PCP - General Family Medicine 01/02/24 Danae Willett APRN.CNP [address] [facility] [address] Operations Controller Family [facility] 01/13/24 04/28/24 Aamir Meade MD [address] [place] [address] Operations Controller [facility] 01/13/24 04/28/24 Team Status: Active Member Role Status Dates Karla Baron MANAGER FORENSIC, MANAGER FORENSIC-C Primary Care Provider Active Team Status: Inactive Member Role Status Dates Karla Baron MANAGER FORENSIC, MANAGER FORENSIC-C Primary Care Provider Active Start: January 30, 2024 End: January 30, 2024 Dr. Lindy Blanco DO Attending Provider Active S tart: January 30, 2024 End: January 30, 2024 Dr. Lindy Blanco DO Emergency Provider Active S tart: January 30, 2024 End: January 30, 2024 Team Status: Inactive Member Role Status Dates Karla Baron MANAGER FORENSIC, MANAGER FORENSIC-C Primary Care Provider Active Start: February 11, 2024 End: February 11, 2024 Dr. Mello Briceño DO Attending Provider Active Start: February 11, 2024 End: February 11, 2024 Dr. Mello Briceño DO Emergency Provider Active Start: February 11, 2024 End: February 11, 2024 Team Status: Inactive Member Role Status Dates Karla Baron MANAGER FORENSIC, MANAGER FORENSIC-C Primary Care Provider Active Start: February 18, 2024 End: February 18, 2024 Dr. Justice Johnson MD Attending Provider Active Start: February 18, 2024 End: February 18, 2024 Dr. Justice Johnson MD Referring Provider Active Start: February 18, 2024 End: February 18, 2024 Team Status: Inactive Member Role Status Dates Karla Baron MANAGER FORENSIC, MANAGER FORENSIC-C Primary Care Provider Active Start: May 18, 2024 End: May 18, 2024 Dr. Lucien Matthews DO Emergency Provider Active Start: May 18, 2024 End: May 18, 2024 Plate Slitter And Inspector Relationship Specialty Start Date End Date Karla Baron APRN.HOTEL ASSISTANT GENERAL MANAGER [address] [place], [place] [address] PCP - General Family Medicine 01/02/24 Plate Slitter And Inspector Relationship Specialty Start Date End Date Karla Baron APRN.HOTEL ASSISTANT GENERAL MANAGER [address] [place], [place] [address] PCP - General Family Medicine 01/02/24 Team Status: Inactive Member Role Status Dates Karla Baron MANAGER FORENSIC, MANAGER FORENSIC-C Primary Care Provider Active Start: May 18, 2024 End: May 18, 2024 Dr. Lucien Matthews DO Attending Provider Active Start: May 18, 2024 End: May 18, 2024 Dr. Lucien Matthews DO Emergency Provider Active Start: May 18, 2024 End: May 18, 2024 Team Status: Inactive Member Role Status Dates Karla Baron NP, MANAGER FORENSIC-C Primary Care Provider Active Start: June 03, 2024 End: June 03, 2024 Karla Baron MANAGER FORENSIC, MANAGER FORENSIC-C Referring Provider Active Start: June 03, 2024 End: June 03, 2024 KRISTI Garza Attending Provider Active Star t: June 03, 2024 End: June 03, 2024 Team Status: Inactive Member Role Status Dates Karla Baron NP, MANAGER FORENSIC-C Primary Care Provider Active Start: June 05, 2024 End: June 05, 2024 KRISTI Garza Attending Provider Active Star t: June 05, 2024 End: June 05, 2024 KRISTI Garza Referring Provider Active Star t: June 05, 2024 End: June 05, 2024 Team Status: Active Member Role Status Dates Karla Baron MANAGER FORENSIC, MANAGER FORENSIC-C Primary Care Provider Active Start: June 05, 2024 Dr. Mello Demarco MD Attending Provider Active S tart: June 05, 2024 KRISTI Garza Referring Provider Active Star t: June 05, 2024 Team Status: Inactive Member Role Status Dates Karla Baron MANAGER FORENSIC, MANAGER FORENSIC-C Primary Care Provider Active Start: July 03, 2024 End: July 03, 2024 KRISTI Garza Attending Provider Active Star t: July 03, 2024 End: July 03, 2024 KRISTI Garza Referring Provider Active Star t: July 03, 2024 End: July 03, 2024 Team Status: Inactive Member Role Status Dates Karla Haagen MANAGER FORENSIC, MANAGER FORENSIC-C Primary Care Provider Active Start: July 17, 2024 End: July 17, 2024 Karla Haagen MANAGER FORENSIC, MANAGER FORENSIC-C Referring Provider Active Start: July 17, 2024 End: July 17, 2024 Dr. Mello Demarco MD Attending Provider Active S tart: July 17, 2024 End: July 17, 2024 Team Status: Active Member Role Status Dates Karla Hachayo MANAGER FORENSIC, MANAGER FORENSIC-C Primary Care Provider Active Start: July 24, 2024 Dr. Chandni Fitzgerald MD Attending Provider Active Start: July 24, 2024 Dr. Chandni Fitzgerald MD Referring Provider Active Start: July 24, 2024 Team Status: Inactive Member Role Status Dates Karla Haagen MANAGER FORENSIC, MANAGER FORENSIC-C Primary Care Provider Active Start: July 29, 2024 End: July 29, 2024 Dr. Nilesh Mccullough MD Emergency Provider Active Start: July 29, 2024 End: July 29, 2024 Team Status: Inactive Member Role Status Dates Karla Haagen MANAGER FORENSIC, MANAGER FORENSIC-C Primary Care Provider Active Start: July 30, 2024 End: July 30, 2024 Karla Hachayo MANAGER FORENSIC, MANAGER FORENSIC-C Referring Provider Active Start: July 30, 2024 End: July 30, 2024 Dr. Kp Puentes MD Attending Provider Active S tart: July 30, 2024 End: July 30, 2024 Team Status: Active Member Role/Relationship Status Dates Karla Haagen MANAGER FORENSIC, MANAGER FORENSIC-C Primary Care Provider Active Team Status: Inactive Member Role/Relationship Status Dates Karla Haagen MANAGER FORENSIC, MANAGER FORENSIC-C Primary Care Provider Active Start: May 18, 2024 End: May 18, 2024 Dr. Lucien Matthews DO Attending Provider Active Start: May 18, 2024 End: May 18, 2024 Dr. Lucien Matthews DO Emergency Provider Active Start: May 18, 2024 End: May 18, 2024 Team Status: Inactive Member Role/Relationship Status Dates Karla Tod MANAGER FORENSIC, MANAGER FORENSIC-C Primary Care Provider Active Start: June 03, 2024 End: June 03, 2024 Karla Baron MANAGER FORENSIC, MANAGER FORENSIC-C Referring Provider Active Start: June 03, 2024 End: June 03, 2024 KRISTI Garza Attending Provider Active Star t: June 03, 2024 End: June 03, 2024 Team Status: Inactive Member Role/Relationship Status Dates Karla Baron MANAGER FORENSIC, MANAGER FORENSIC-C Primary Care Provider Active Start: June 05, 2024 End: June 05, 2024 KRISTI Garza Attending Provider Active Star t: June 05, 2024 End: June 05, 2024 KRISTI Garza Referring Provider Active Star t: June 05, 2024 End: June 05, 2024 Team Status: Active Member Role/Relationship Status Dates Karla Tod MANAGER FORENSIC, MANAGER FORENSIC-C Primary Care Provider Active Start: June 05, 2024 Dr. Mello Demarco MD Attending Provider Active S tart: June 05, 2024 KRISTI Garza Referring Provider Active Star t: June 05, 2024 Team Status: Inactive Member Role/Relationship Status Dates Karla Tod MANAGER FORENSIC, MANAGER FORENSIC-C Primary Care Provider Active Start: July 03, 2024 End: July 03, 2024 KRISTI Garza Attending Provider Active Star t: July 03, 2024 End: July 03, 2024 KRISTI Garza Referring Provider Active Star t: July 03, 2024 End: July 03, 2024 Team Status: Inactive Member Role/Relationship Status Dates Karla Baron MANAGER FORENSIC, MANAGER FORENSIC-C Primary Care Provider Active Start: July 17, 2024 End: July 17, 2024 Karla Baron MANAGER FORENSIC, MANAGER FORENSIC-C Referring Provider Active Start: July 17, 2024 End: July 17, 2024 Dr. Mello Demarco MD Attending Provider Active S tart: July 17, 2024 End: July 17, 2024 Team Status: Inactive Member Role/Relationship Status Dates Karla Hachayo MANAGER FORENSIC, MANAGER FORENSIC-C Primary Care Provider Active Start: July 24, 2024 End: July 24, 2024 Dr. Chandni Fitzgerald MD Attending Provider Active Start: July 24, 2024 End: July 24, 2024 Dr. Chandni Fitzgerald MD Referring Provider Active Start: July 24, 2024 End: July 24, 2024 Team Status: Inactive Member Role/Relationship Status Dates Karla Baron MANAGER FORENSIC, MANAGER FORENSIC-C Primary Care Provider Active Start: July 29, 2024 End: July 29, 2024 Dr. Nilesh Mccullough MD Emergency Provider Active Start: July 29, 2024 End: July 29, 2024 Team Status: Inactive Member Role/Relationship Status Dates Karla Baron MANAGER FORENSIC, MANAGER FORENSIC-C Primary Care Provider Active Start: July 30, 2024 End: July 30, 2024 Karla Baron MANAGER FORENSIC, MANAGER FORENSIC-C Referring Provider Active Start: July 30, 2024 End: July 30, 2024 Dr. Kp Puentes MD Attending Provider Active S tart: July 30, 2024 End: July 30, 2024 Team Status: Inactive Member Role/Relationship Status Dates Karla Baron MANAGER FORENSIC, MANAGER FORENSIC-C Primary Care Provider Active Start: July 29, 2024 End: July 29, 2024 Dr. Nilesh Mccullough MD Attending Provider Active Start: July 29, 2024 End: July 29, 2024 Dr. Nilesh Mccullough MD Emergency Provider Active Start: July 29, 2024 End: July 29, 2024 Team Status: Inactive Member Role/Relationship Status Dates Karla Baron MANAGER FORENSIC, MANAGER FORENSIC-C Primary Care Provider Active Start: August 04, 2024 End: August 04, 2024 Karla Baron MANAGER FORENSIC, MANAGER FORENSIC-C Referring Provider Active Start: August 04, 2024 End: August 04, 2024 Akira Negrete MD Attending Provider Active St art: August 04, 2024 End: August 04, 2024 Plate Slitter And Inspector Relationship Specialty Start Date End Date Karla Baron APRN.HOTEL ASSISTANT GENERAL MANAGER [address] [place] [address] PCP - General Family Medicine 01/02/24 Team Status: Inactive Member Role/Relationship Status Dates Karla Baron MANAGER FORENSIC, MANAGER FORENSIC-C Primary Care Provider Active Start: August 15, 2024 End: August 15, 2024 Dr. Kp Puentes MD Attending Provider Active S tart: August 15, 2024 End: August 15, 2024 Dr. Kp Puentes MD Referring Provider Active S tart: August 15, 2024 End: August 15, 2024 Dr. Mello Demarco MD Other Provider Active Start : August 15, 2024 End: August 15, 2024 Team Status: Active Member Role/Relationship Status Dates Karla Baron MANAGER FORENSIC, MANAGER FORENSIC-C Primary Care Provider Active Start: August 15, 2024 Dr. Kp Puentes MD Attending Provider Active S tart: August 15, 2024 Team Status: Active Member Role/Relationship Status Dates Karla Baron MANAGER FORENSIC, MANAGER FORENSIC-C Primary Care Provider Active Start: August 15, 2024 Manuela Bojorquez MANAGER FORENSIC, MANAGER FORENSIC-C Attending Provider Active Start: August 15, 2024 Team Status: Inactive Member Role/Relationship Status Dates Karla Baron MANAGER FORENSIC, MANAGER FORENSIC-C Primary Care Provider Active Start: August 25, 2024 End: August 25, 2024 Dr. Kp Puentes MD Attending Provider Active S tart: August 25, 2024 End: August 25, 2024 Dr. Kp Puentes MD Referring Provider Active S tart: August 25, 2024 End: August 25, 2024 Plate Slitter And Inspector Relationship Specialty Start Date End Date Karla Baron APRN.HOTEL ASSISTANT GENERAL MANAGER [address] [place] [address] PCP - General Family Medicine 01/02/24 Team Status: Inactive Member Role/Relationship Status Dates Karla Baron MANAGER FORENSIC, MANAGER FORENSIC-C Primary Care Provider Active Start: September 03, 2024 End: September 03, 2024 Karla Baron NP, MANAGER FORENSIC-C Referring Provider Active Start: September 03, 2024 End: September 03, 2024 Dr. Mello Demarco MD Attending Provider Active S tart: September 03, 2024 End: September 03, 2024 (unrecognized sect ion and content) No Status Records FoundNo Status Records Found INFORMATION SOURCE (unrecogn ized section and content) DATE CREATED AUTHOR 08/07/2024 [facility] DATE CREATED AUTHOR 'S NEO LINTON 09/16/2024 [facility] FOR RECORDS PERTAINING TO PATIENTS WHO ARE [...] BE BASED ON THE PRIMARY CLINICAL RECORDS. [facility]. provides no warranty or guarantee of the accuracy or completeness of information in this document.
[2024-09-17] MEDS: Lactated Ringers 1,000 ML 15 ML IV (08:23)
--- NOTE | 2024-09-17 09:03 | PRE.ANES_ITS ---
ASA Classification* ASA Classification ASA Classification: 3 Assessment & Plan Anesthesia* Anesthesia Assessment Anesthesia Assessment: Discussed sedation and/or anesthesia options, risks, benefits, and alternatives with patient/parents/legal guardian/POA. Questions invited. The patient/parents/legal guardian/POA seems to understand and agrees to proceed with anesthesia plan. Reviewed the physical assessment, medical history, allergy history and patient home medications list prior to surgery/procedure/anesthetic and documented any changes. Performed airway and anesthesia risk assessments. Anesthesia Type Anesthesia Type: General History Source History Obtained from:: Patient, Chart and - (Daughter present in the room spoke in detail about the risks of brain perfusion given the fact that the other side of carotid is already stenosed. All questions were answered.) Anesthesia Focused Assessment* Temperature: 97.4 F Pulse Rate: 55 Blood Pressure: 136/79 Respiratory Rate: 16 Pulse Ox: 96 Oxygen Delivery Method: Room Air Airway Assessment Mouth opens: >3 cm Mallampati Score: II Labs Anesthesia Preop lab: CBC WBC 12.0 K/mm3 (4.4-11.0) H 08/15/24 07:06 5 RBC 5.11 M/mm3 (4.6-6.2) 08/15/24 07:06 08/15/24 Hgb 16.1 g/dL (13.0-16.5) 08/15/24 07:06 08/15/24 Hct 47.1 % (40-54) 08/15/24 07:06 08/15/24 Plt Count 213 K/mm3 (150-450) 08/15/24 07:06 08/15/24 CHEMISTRY Potassium 4.1 mmol/L (3.3-5.1) 08/15/24 07:06 08/15/24 Sodium 136 mmol/L (133-145) 08/15/24 07:06 08/15/24 Magnesium 1.5 mg/dL (1.8-2.4) L 05/05/16 06:02 05/05/16 Phosphorus 2.1 mg/dL (2.5-4.9) L 05/04/16 05:20 05/04/16 BUN 15 mg/dL (4-19) 08/15/24 07:06 08/15/24 Creatinine 0.65 mg/dL (0.70-1.20) L 08/15/24 07:06 Glucose 99 mg/dL (70-99) 08/15/24 07:06 08/15/24 COAG PT 12.8 SECONDS (11.7-14.9) 12/02/20 10:24 Pre-Assessment Diagnosis/Proposed Procedure Planned Operative Procedure(s): (R) Right Carotid Endarterectomy Anesthesia History Anesthesia History - mechanical service technician: Anesthesia History - mechanical service technician Hx Hospitalization No 09/05/24 11:02 Any Problems With Anesthesia No 09/05/24 11:02 Cholinesterase deficiency No 09/05/24 11:02 You/Your Family Experience No 09/05/24 11:02 fever (hyperthermia) with Relationship Recent Exposure to Contagious No 09/17/24 08:09 Disease Does patient have nerve No 09/05/24 11:02 stimulator Patient instructed to have device shut off --Does patient have Pacemaker No 09/17/24 08:09 or ICD? When Was Last Pacemaker Check QUESTION #4 FULL TEXT: You/Your Family Experience fever (hyperthermia) with Anesthesia Last Oral Intake Last Oral intake: Last Oral Intake NPO since 21:00 09/17/24 08:09 Meds taken in AM with sips of Yes 09/17/24 08:09 water? Meds patient instructed to take am of surgery PONV PONV - mechanical service technician: PONV - mechanical service technician Female No 09/05/24 11:02 HX of Motion Sickness No 09/05/24 11:02 HX of N/V After Surgery No 09/05/24 11:02 Non-Smoker No 09/05/24 11:02 Duration of Surgery greater Yes 09/05/24 11:02 than 60 minutes Number of Risk Factors 1 09/05/24 11:02 PONV Score Low Risk 09/05/24 11:02 Height & Weight Height & Weight: Anesthesia: Height & Weight Height 5 ft 8 in 09/17/24 08:09 Weight: 69 kg 09/17/24 08:09 Body Mass Index (BMI) 23.1 09/17/24 08:09 Respiratory Assessment Respiratory Assessment - mechanical service technician: Respiratory Tract Infection Hx - mechanical service technician Hx Respiratory Tract Infection No 09/05/24 11:02 STOP Sleep Apnea STOP Sleep Apnea - mechanical service technician: STOP Sleep Apnea - mechanical service technician Hx Hypertension Yes 09/05/24 11:02 Hx Sleep Apnea No 09/05/24 11:02 CPAP BIPAP Do you snore loudly (louder No 09/05/24 11:02 than talking or can be heard Do you often feel tired/ No 09/05/24 11:02 fatigued/ sleepy during daytime? Has anyone observed you stop No 09/05/24 11:02 breathing during sleep? STOP Results Negative 09/05/24 11:02 QUESTION #5 FULL TEXT : Do you snore loudly (louder than talking or can be heard through closed doors)? 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 Specify any problems Hx of Preganancy in last 3 N/A 09/05/24 11:02 Months Nurse Filling Out Transfusion PazZOLLSALAZAR 09/05/24 11:02 & Questions: Date: 09/05/24 09/05/24 11:02 Time: 11:02 09/05/24 11:02 Patient unable to answer at this time (ie. confused, unrespo /Reproduction History /Reproductive History - mechanical service technician: /Reproductive Hx- mechanical service technician Hx Now No 09/05/24 11:02 Gestational Age (in weeks): EDC: Hx Hx Para Hx Section SAB No 09/05/24 11:02 Active Medications Active Medications: Current Medications Generic Name Dose Route Start Last Admin Trade Name Freq PRN Reason Stop Dose Admin Clindamycin Phosphate 900 mg in 50 mls @ 75 mls/hr 09/17/24 10:00 Cleocin IV 09/17/24 10:39 INTRAOP ONE Lactated Ringer's 1,000 mls @ 15 mls/hr 09/17/24 08:30 09/17/24 08:23 IV 15 mls/hr .Q48H ELLIE Administration PFSH Medical History (Updated 09/05/24 @ 11:13 by Noris Silver) Wears glasses Alcohol use Easy bruising Smoker History of steroid therapy History of echocardiogram History of stress test Cardiology follow-up encounter Osteoarthritis of left knee Stenosis of right carotid artery Anxiety Lower extremity pain Carotid stenosis, right 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 Prostate disease Gastric reflux COPD (chronic obstructive pulmonary disease) 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) Encounter for pre-operative cardiovascular clearance Hypertrophy of prostate with urinary obstruction 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 Atherosclerosis of coronary artery without angina pectoris Essential hypertension Alcoholism Home Medications ?Medication ?Instructions ?Recorded ?Last Taken ?Type amlodipine 10 mg tablet 10 mg PO DAILY HYPERTENSION 05/02/16 09/17/24 History clopidogrel 75 mg tablet 75 mg PO DAILY BLOOD THINNER 05/02/16 09/17/24 History tamsulosin 0.4 mg capsule (Flomax) 0.4 mg PO DAILY PRO STATE 05/02/16 09/17/24 History metoprolol tartrate 100 mg tablet 100 mg PO BID HTN 09/17/24 History pantoprazole 20 mg tablet,delayed 20 mg PO DAILY GERD 11/09/20 09/17/24 History release (Protonix) acetaminophen 500 mg tablet 500 mg PO Q4H PRN pain 03/01 Unknown History (Tylenol Extra Strength) losartan 25 mg tablet 25 mg PO QDAY bp 09/03/24 History brimonidine 0.2 % eye drops 1 drp ophthalmic (eye) BID pressure 09/05/24 09/17/24 History latanoprost 0.005 % eye drops drp ophthalmic (eye) pre ssure 09/05/24 09/17/24 History timolol maleate 0.5 % eye drops 1 drp ophthalmic (eye) BID pressure 09/05/24 09/17/24 History Allergy/AdvReac Type Severity Reaction Status Date / Time cilostazol (From Pletal) Allergy Intermediate PT UNSURE Verified 09/05/24 10:54 OF REACTION lisinopril Allergy Intermediate PT UNSURE Verified 09/05/24 10:54 OF REACTION Penicillins Allergy Hives Verified 09/05/24 10:54 atorvastatin AdvReac Intermediate myalgia Verified 09/05/24 10:54 pravastatin AdvReac Intermediate myalgia Verified 09/05/24 10:54 Family History Mother Cancer Brother Heart disease Surgical History (Updated 09/05/24 @ 11:13 by Noris Silver) Hx of cardiac cath History of colonoscopy History of angioplasty of peripheral vessel (09/28/09) History of coronary artery stent placement (08/10/06) Social History Smoking Status: Heavy Smoker (>10/day) alcohol intake: current alcohol intake frequency: a few times a month substance use type: does not use Review of Systems (Anesthesia) ROS Narrative System reviewed and no additional complaints, except as documented.
--- NOTE | 2024-09-17 10:00 | PLAQ_PTH ---
PATIENT: RAMONITA EL LOC: [facility] U#:[id number] AGE/SX: 84/M ROOM: [place] [address] RE09/17/[address]: Dr. Mello Demarco MD : 1940 BED: 1 DIS: 09/18/2024 SPEC #: [id number] RECD: 09/17/24 14:13 STATUS: SOUGagan REQ #: [id number] SOLOMON: 09/17/24 10:[address]: Mello Demarco DEPT: SURGICAL PATHOLOGY RECD BY: Daren Mathis ENTERED: 09/17/24 14:39 SP TYPE: PLAQUE OT DR: Karla Baron, AUTOMOBILE SERVICE STATION ATTENDANT-C Tissues: A - PLAQUE Procedures: Decalcification bone/plaque Surgery Specimen Level III HEADER OPERATION: Right carotid endarterectomy PRE-OP DIAGNOSIS: Stenosis of right carotid artery TISSUE SUBMITTED: A- Right carotid plaque MICROSCOPIC DIAGNOSIS A. Right carotid artery, plaque, endarterectomy: - Fibrointimal hyperplasia with calcification, consistent with atherosclerotic plaque. GROSS DESCRIPTION A. Received in formalin labeled with the patient's name and date of . Designated as right carotid plaque is a mcknight-yellow focally fragmented and bifurcated plaque measuring 3.5 x 1.1 x 0.6 cm. Inside Sales Agent sections are submitted in 1 cassette, following decalcification. DC 09/17/2024 CPT:22283,92951
--- NOTE | 2024-09-17 10:00 | PCM.HP.BLA ---
History and Physical Allergies cilostazol (From Pletal) Allergy (Intermediate, Verified 09/03/24 15:40) PT UNSURE OF REACTIONlisinopril Allergy (Intermediate, Verified 09/03/24 15:40) PT UNSURE OF REACTIONPenicillins Allergy (Verified 09/03/24 15:40) Hivesatorvastatin Adverse Reaction (Intermediate, Verified 09/03/24 15:40) myalgiapravastatin Adverse Reaction (Intermediate, Verified 09/03/24 15:40) myalgia Medications ?Medication ?Instructions ?Recorded ?Confirmed ?Type amlodipine 10 mg tablet 10 mg PO DAILY HYPERTENSION 05/02/16 09/03/24 History clopidogrel 75 mg tablet 75 mg PO DAILY BLOOD THINNER 05/02/16 09/03/24 History tamsulosin 0.4 mg capsule (Flomax) 0.4 mg PO DAILY PROSTATE 05/02/16 09/03/24 History metoprolol tartrate 100 mg tablet 100 mg PO BID HTN 11/09/20 09/03/24 History pantoprazole 20 mg tablet,delayed 20 mg PO DAILY GERD 11/09/20 09/03/24 History release (Protonix) acetaminophen 500 mg tablet 500 mg PO Q4H PRN pain 08/05/24 09/03/24 History (Tylenol Extra Strength) losartan 25 mg tablet 25 mg PO QDAY 09/03/24 09/03/24 History Have you fallen in the past year?: No PFSH Medical History Wears glasses Alcohol use Easy bruising Smoker History of steroid therapy History of echocardiogram History of stress test Cardiology follow-up encounter Osteoarthritis of left knee Stenosis of right carotid artery Anxiety Lower extremity pain Carotid stenosis, right 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 Prostate disease Gastric reflux COPD (chronic obstructive pulmonary disease) 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) Encounter for pre-operative cardiovascular clearance Hypertrophy of prostate with urinary obstruction 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 Atherosclerosis of coronary artery without angina pectoris Essential hypertension Alcoholism Surgical History History of colonoscopy History of angioplasty of peripheral vessel (09/28/09) History of coronary artery stent placement (08/10/06) Family History Mother CancerBrother Heart disease Social History Smoking Status: Heavy Smoker (>10/day) alcohol intake: current alcohol intake frequency: a few times a month substance use type: does not use HPI HPI HPI: RAMONITA EL, is a 84 M who presents to the office today for follow up discussion of asymptomatic right ICA stenosis. He has history of CAD and stress test as part of pre-op evaluation was abnormal. He underwent cardiac cath which revealed some degree of disease which was not amenable to percutaneous tx and was focal/moderate. D/W Dr. Puentes and Dr. Casiano who feel he is ad mildly increased but acceptable risk, particularly given that he is asymptomatic from cardiac standpoint. He denies numbness/weakness/vision loss/speech difficulty. ROS General General: Yes fatigue; No weight change, appetite, colon cancer, breast cancer or weakness HEENT HEENT: No difficulty swallowing, eye injury, eye surgery, swollen glands or hoarseness Endo Endocrine: No thyroid disease, diabetes mellitus, thyroid cancer, Hair loss, heat intolerance or cold intolerance Skin Skin: No rash or changing moles Musc Musculoskeletal: Yes arthritis; No back problems, rheumatoid arthritis, gout or joint pain Cardio Cardiovascular: Yes heart disease, high blood pressure, heart attack, heart stent, shortness of breath with exertion and chest pain; No murmur, pacemaker, atrial fibrillation or palpitations Psych Psychiatric: No depression, anxiety or hearing voices Resp Respiratory: Yes shortness of breath, Yes sleep apnea, No cough, Yes COPD, No asthma, No emphysema and No wheezing Gastro Gastrointestinal: No abdominal pain, No nausea or vomiting, No diarrhea, No constipation, No blood in stool, Yes acid reflux, No hemorrhoids, No ulcers, No gallbladder problem and No black,tarry stools Severino Hematologic: Yes blood thinners, No blood disorders, No bleeding, No anemia and No blood clots Neuro Neurologic: No system reviewed and no additional complaints, except as documented, No as per HPI, No abnormal gait, Yes abnormal hearing, No abnormal movements, No abnormal speech, No behavioral changes, Yes burning sensations, No confusion, No convulsions, No disequilibrium, No dizziness, No localized weakness, No frequent falls, No headache(s), No lack of coordination, No loss of vision, No memory loss, Yes numbness, Yes other visual disturbances, No radicular pain, No restless legs, No sensory deficit, No syncope, Yes tingling, No tremor(s), No weakness and No other Exam Const General: cooperative, healthy appearing, comfortable, no acute distress and well developed Nutritional Appearance: well nourished Orientation: alert, awake and oriented x3 HENMT Head: normocephalic and atraumatic Ears: hearing grossly normal bilaterally Nose: external nose normal Eyes General: appearance normal, both eyes and all related structures EOM: EOM intact bilaterally Neck Neck: normal visual inspection, full ROM and trachea midline Resp Effort & Inspection: normal respiratory effort, able to speak in complete sentences, symmetric chest movement, no audible wheezes, not labored, no stridor and no use of accessory muscles Cardio Rate: regular rate Rhythm: regular rhythm Pulses: brachial pulses present and radial pulses present Skin General: no rashes or lesions noted and no erythema Wounds: no wounds Neuro Cranial Nerves: CN's II-XI intact bilaterally and EOM intact bilaterally Speech: speech normal Gait: normal gait Motor: strength 5/5 throughout Sensory Exam: no sensory deficits noted Psych Appearance: grossly normal and well kempt Mental Status: mental status grossly normal Mood: congruent mood Speech and Movement: speech and movement normal Thought Content: normal Judgment: judgment good Coding Level of Care Code Off vis,est,level 3 Diagnoses Stenosis of right carotid artery I65.21 Assessment and Plan Assessment and Plan (1) Stenosis of right carotid artery: Status: Chronic Plan: -discussed risks/benefits/alternative regarding his asymptomatic stenosis -not ideal lesion for stent given calcification -discussed that he is at some increased risk for nichol-op cardiac complication though felt to still be acceptable risk to perform here -right CEA
[2024-09-17] MEDS: Lactated Ringers 1,000 ML 1000 ML IV (10:39)
[2024-09-17] MEDS: Midazolam 2 MG/2 ML Syringe IV (10:39)
[2024-09-17] MEDS: Lidocaine 1% (5 ml sdv) 5 ML Vial IV (10:47)
[2024-09-17] MEDS: Heparin Injection (Vial) 5,000 UNIT/ML VIAL 9000 UNIT IV (12:30)
[2024-09-17 13:01] LABS: ACT Activated Clotting Time 124 sec (74-137)
[2024-09-17 13:01] LABS: ACT Activated Clotting Time 239 sec (74-137)
[2024-09-17 13:01] LABS: ACT Activated Clotting Time 268 sec (74-137)
--- NOTE | 2024-09-17 13:31 | OP.PCM_ITS ---
Operative Report (Standard) Operative Information Date of Procedure: 09/17/24 Pre-Operative Diagnosis: right carotid stenosis Post-Operative Diagnosis: same Surgery/Procedure Performed: right carotid endarterectomy linoleum layer helper: Yes Elastic Attacher Overlock: Terell Schwarz Tasks completed by first leveler: Opening, Closing, Opening & closing, Hemostasis: Tie and Retracting Type of Anesthesia: General RN Documented Start/Stop Times: Operation Date: 09/17/24 10:00 Case Time Into Pre-Op 09/17/24 08:00 Anesthesia Start 09/17/24 10:39 Into Room 09/17/24 10:39 Procedure Start 09/17/24 11:15 Procedure End 09/17/24 13:38 Anesthesia End 09/17/24 13:46 Out of Room 09/17/24 13:46 Into Recovery 09/17/24 13:52 Out of Pre-Op Procedure Start Time: 11:15 Procedure Stop Time: 13:30 Select all DRAINS/GRAFTS/IMPLANTS that apply: Drains Drain details: 19 Fr ИВАН and Tissue Tissue details: bovine patch Estimated Blood Loss: 24 Specimen collected: Yes Description of specimen(s) removed: plaque Description of surgery: HPI: Patient is an 84-year-old male with severe asymptomatic right carotid artery stenosis. He is taken now for elective endarterectomy. Description of procedure: Upon obtaining informed consent and verification correct patient procedure site the patient was taken to the operating room was placed under general anesthesia. He was then positioned prepped and draped in usual sterile fashion a timeout was performed. Oblique incision was made along the anterior border the sternocleidomastoid and Bovie used to dissect down through subcutaneous tissue to the level of the platysma. This was then divided and self-retaining retractor put in position with further dissection carried down to the sternocleidomastoid. This was mobilized along the anterior border along posterolateral retraction and exposing the carotid sheath. Sharp dissection was used to dissect the jugular vein with the facial vein identified, ligated with silk ties, and divided. The jugular vein was then retracted laterally exposing the carotid vessels. Sharp dissection was used to dissect free the proximal common carotid artery circumferentially with care taken to identify and protect the adjacent vagus nerve which was in its normal anatomic position. A right angle was then used to place a vessel loop and attention turned to the internal carotid artery. Sharp dissection was used to dissect free the vessel distal to the palpable and visible plaque with care taken to identify and protect the hypoglossal nerve. A right angle was used to place a vessel loop beyond the plaque and the patient was then heparinized allowed to circulate for 3 minutes with subsequent heparin dosing based on ACT results. Finally sharp dissection was used to dissect free the external carotid artery and a right angle used to place a vessel loop. The vessel then occluded first the internal followed by the common the external. A longitudinal arteriotomy was created with 11 blade and extended with Helms scissors onto the internal carotid artery beyond the plaque. A 10 Maldivian Morrow shunt was then placed first distally in the internal carotid artery allowed to backbleed before placing proximally in the common carotid artery. The shunt was interrogated Doppler and found to be patent with low resistance signal. We then performed her endarterectomy with a freer elevator with satisfactory endpoint distally on the internal carotid artery of the external carotid artery. The lumen was flushed with heparinized saline to clear debris in the distal endpoint tacked with 7-0 Prolene interrupted suture. A bovine pericardial patch was then secured in position using a 6-0 Prolene in a running fashion. Prior to coming the suture line the shunt was withdrawn and the vessel was backbled. After completing the suture line the internal carotid artery was allowed to backbleed to the bifurcation and then reoccluded at the origin. Clamps were then removed from the external and the common carotid artery allowing 10 heartbeats of antegrade flow to flush into the external carotid artery before reestablishing flow into the internal carotid artery. After clamps released satisfactory hemostasis was observed and the vessels were interrogated with Doppler. The internal carotid artery was patent with low resistance signal in the external carotid artery patent with appropriate signal. Heparin was reversed with protamine and the incision inspected for hemostasis. Vistaseal topical hemostatic was applied and 19 Maldivian channel ИВАН placed via separate stab incision. The incision was then closed with 2-0 Vicryl, 3-0 Vicryl, 4-0 Monocryl and Dermabond for skin. At the conclusion the patient was awake from anesthesia moving extremities to command with cranial nerves intact. He was taken to the recovery room with anticipated admission to intensive care unit for hemodynamic and neurologic monitoring. Surgical Findings: see above Complications Complications: No
[2024-09-17] MEDS: SUFentanil 50 MCG/ML Ampul 15 MCG IV (13:45)
--- NOTE | 2024-09-17 13:57 | PCM.POST.ANE ---
Anesthesia: Postop Eval I Current Vital Signs Temperature: 98 F Pulse Rate: 72 Blood Pressure: 138/47 Respiratory Rate: 14 Pulse Ox: 97 Oxygen Delivery Method: Simple Mask Oxygen Flow Rate (L/min): 8 Assessment Airway patent: Yes Spontaneous unlabored respirations: Yes Mental status: Awake nausea: No Vomiting: No Anesthesia Complication: No Fluid Hydration Crystalloid volume administer (ml): 1,700 Total IV fluid infused: 1,700 Progress Note Anesthesia document: Postop Eval 1 completed: Yes
--- NOTE | 2024-09-17 13:58 | PCM.POST.ANE ---
Anesthesia: Postop Eval I Current Vital Signs Temperature: 98.0 F Pulse Rate: 72 Blood Pressure: 138/47 Respiratory Rate: 16 Pulse Ox: 98 Oxygen Delivery Method: Venturi Mask Oxygen Flow Rate (L/min): 8 Assessment Airway patent: Yes Spontaneous unlabored respirations: Yes Mental status: Awake nausea: No Vomiting: No Anesthesia Complication: No Fluid Hydration Crystalloid volume administer (ml): 1,700 Total IV fluid infused: 1,700 Progress Note Anesthesia document: Postop Eval 1 completed: Yes
[2024-09-17] MEDS: HYDROmorphone 0.5 MG/0.5 ML SYRINGE IV (16:13)
--- NOTE | 2024-09-17 16:35 | POSTOPAN2_ITS ---
Anesthesia Postop Eval I Sum Postop Eval Completion status Anesthesia document: Postop Eval 1 completed: Yes Anesthesia Postop Eval I Summary Anesthesia Postop Eval I Summary: Anesthesia Postop Eval I: Assessment Summary Airway patent Yes 09/17/24 14:00 RAILROAD SIGNAL [email or web address] Spontaneous unlabored Yes 09/17/24 14:00 RAILROAD SIGNAL [email or web address] respirations Mental status Awake 09/17/24 14:00 RAILROAD SIGNAL [email or web address] nausea No 09/17/24 14:00 RAILROAD SIGNAL [email or web address] Vomiting No 09/17/24 14:00 RAILROAD SIGNAL [email or web address] Anesthesia Postop Eval I: Fluid Summary Crystalloid volume administer 1,700 09/17/24 14:00 RAILROAD SIGNAL [email or web address] (ml) Colloids volume administered ( ml) Blood Product volume administered (ml) Total IV fluid infused 1,700 09/17/24 14:00 RAILROAD SIGNAL [email or web address] Anesthesia Postop Eval I: Summary Notes Anesthesia Complication No 09/17/24 14:00 RAILROAD SIGNAL [email or web address] Anesthesia Complication Comment: Post-operative progress note Anesthesia: Postop Eval II Evaluation Mental status: Awake Pain Level: 2 nausea: No Vomiting: No
--- NOTE | 2024-09-17 16:35 | PCM.POSTANE2 ---
Anesthesia Postop Eval I Sum Postop Eval Completion status Anesthesia document: Postop Eval 1 completed: Yes Anesthesia Postop Eval I Summary Anesthesia Postop Eval I Summary: Anesthesia Postop Eval I: Assessment Summary Airway patent Yes 09/17/24 14:00 MEDICAL OPERATIONS [email or web address] Spontaneous unlabored Yes 09/17/24 14:00 MEDICAL OPERATIONS [email or web address] respirations Mental status Awake 09/17/24 14:00 MEDICAL OPERATIONS [email or web address] nausea No 09/17/24 14:00 MEDICAL OPERATIONS [email or web address] Vomiting No 09/17/24 14:00 MEDICAL OPERATIONS [email or web address] Anesthesia Postop Eval I: Fluid Summary Crystalloid volume administer 1,700 09/17/24 14:00 MEDICAL OPERATIONS [email or web address] (ml) Colloids volume administered ( ml) Blood Product volume administered (ml) Total IV fluid infused 1,700 09/17/24 14:00 MEDICAL OPERATIONS [email or web address] Anesthesia Postop Eval I: Summary Notes Anesthesia Complication No 09/17/24 14:00 MEDICAL OPERATIONS [email or web address] Anesthesia Complication Comment: Post-operative progress note Anesthesia: Postop Eval II Evaluation Mental status: Awake Pain Level: 2 nausea: No Vomiting: No
[2024-09-17] MEDS: Clindamycin 900 MG/50 ML BAG 75 MG IV (17:21)
[2024-09-17] MEDS: Timolol 0.5% 5ML OPTH.BTL 1 DRP OPHTHALMIC (22:48)
[2024-09-17] MEDS: BRIMONIDINE 0.2% 5ML BOTTLE 1 DRP OPHTHALMIC (22:50)
[2024-09-18] VITALS (15 sets, daily range): BP systolic 134–182; BP diastolic 44–87; PULSE 61–72; RESP 13–18; TEMP 36.3–36.6; O2SAT 95–97; BMI 23.8
[2024-09-18] MEDS: Clindamycin 900 MG/50 ML BAG 75 MG IV (02:02)
[2024-09-18 04:45] LABS: Hematocrit 37.8 % (40-54); Hemoglobin 13.3 g/dL (13.0-16.5); Immature Granulocytes Count 0.030 X10^3/uL (0.0-0.0); Mean Corp Hgb Conc 35.2 g/dL (32-36); Mean Corpuscular Volume 90.2 fL (80-94); Mean Platelet Vol. 10.3 fl (6.2-12.0); NRBC Flagged by Analyzer 0 % (0-5); POSITIVE DIFFERENTIAL YES; Platelet Count 219 K/mm3 (150-450); RBC Distribution Width CV 13.7 % (11.6-14.6); RBC Distribution Width SD 44.7 fl (35.1-43.9); Red Blood Count 4.19 M/mm3 (4.6-6.2); White Blood Count 11.5 K/mm3 (4.4-11.0)
--- NOTE | 2024-09-18 08:15 | PN.SURG_ITS ---
Subjective Subjective Mr. Johnston had just gotten up to the chair this morning on my exam. He reports he is feeling better this morning. He only has pain in his neck when he turns his head. He denies any headache, vision changes, weakness/numbness. He feels he did well getting to the chair, did not note any lightheadedness. He has had urinary retention and hesitancy; he has this to some degree at baseline, takes tamsulosin for this; he states at home these symptoms are typically worse in the morning anyways. He has had mild ИВАН drain output, ~10 cc emptied recorded yesterday evening and on my exam about 20 cc in the drain this morning. He has been hypertensive, he required 2 doses of hydralazine yesterday evening, none overnight. Nursing noted some dysarthria on neuro exams postoperatively, Dr. Demarco saw patient in PACU and he was at baseline speech; this morning he is at baseline speech from when I last saw him in the office; patient does not note any speech difficulties himself. Objective Data Objective Data Vital Signs: Vital Signs Temp Pulse Resp BP Pulse Ox O2 Del Method O2 Flow Rate 97.8 F 65 14 150/50 H 95 Nasal Cannula 3 09/18/24 05:00 09/18/24 06:00 09/18/24 06:00 09/18/24 06:00 09/18/24 06:48 09/18/24 06:48 09/18/24 06:48 Oxygen Flow Rate (L/min) 3 Oxygen Delivery Method Nasal Cannula Weight: 156 lb 4.924 oz Body Mass Index (BMI) 23.8 Intake & Output: Intake and Output for Last 24 Hours 09/16/24 09/17/24 09/18/24 23:59 23:59 23:59 Intake Total 1865 / 1865 50 / 50 Output Total 534 / 534 100 / 100 Balance 1331 / 1331 -50 / -50 Lab / Micro Data 09/18/24 04:37 Labs: Laboratory Results - last 24 hr 09/17/24 08:05: Blood Type B POSITIVE, Antibody Screen NEGATIVE 09/17/24 11:11: Activated Clotting Time 124 09/17/24 11:51: Activated Clotting Time 268 H 09/17/24 12:26: Activated Clotting Time 239 H 09/18/24 04:37: WBC 11.5 H, RBC 4.19 L, Hgb 13.3, Hct 37.8 L, MCV 90.2, MCH 31.7, MCHC 35.2, RDW Std Deviation 44.7 H, RDW Coeff of Krishna 13.7, Plt Count 219, MPV 10.3, Immature Gran % (Auto) 0.300, Neut % (Auto) 90.6 H, Lymph % (Auto) 5.2 L, [place] % (Auto) 3.8, Eos % (Auto) 0.0, Baso % (Auto) 0.1, Absolute Neuts (auto) 10.4 H, Absolute Lymphs (auto) 0.60 L, Nucleated RBC % 0 Physical Exam Const alert, oriented x3 and no apparent distress General Appearance: cooperative and comfortable HEENT normocephalic, head/scalp atraumatic, hearing grossly normal bilaterally, external ears normal and external nose normal Eyes General Eye: normal appearance of both eyes Neck Neck Narrative: R CEA incision site with skin glue intact, no dehiscence, minimal edema, no ecchymosis, soft/nontender to palpation. There is ~20cc sanguineous output in the ИВАН. Resp normal respiratory effort, normal air movement, no retractions and no use of accessory muscles Effort and Inspection: able to speak in complete sentences; Negative for labored, grunting or stridor Cardio regular rate and regular rhythm Extremity normal to inspection, full ROM and no clubbing, cyanosis or edema Skin no rashes or lesions noted Trauma: no lacerations or abrasions Neuro oriented x3, CN's II-XII intact bilaterally, moves all extremities, no focal motor deficits and no sensory deficits noted Speech: speech normal Assessment & Plan Assessment/Plan (1) Carotid stenosis, right: PLAN: Plan He is POD#1 from R CEA. I removed the ИВАН drain this morning without issue, he tolerated this well. He is neurologically stable. His blood pressures have been on the higher side, his home antihypertensive medication regimen has continued, will monitor. Discontinue arterial line. He has baseline urinary retention; home tamsulosin has been continued. Will monitor. Progress to normal diet. Plan to ambulate with nursing/PT. Possible discharge this afternoon. Charges/Coding Procedures Integumentary 111xxx-113xx: [id number] Global Visit
[2024-09-18] MEDS: Timolol 0.5% 5ML OPTH.BTL 1 DRP OPHTHALMIC (08:22)
[2024-09-18] MEDS: BRIMONIDINE 0.2% 5ML BOTTLE 1 DRP OPHTHALMIC (08:22)
--- NOTE | 2024-09-18 09:54 | CASEMGMT ---
Addendum entered by Isabel Shipman 09/18/24 14:55: This RN CM collaborated with the pt's RN who states that the pt was adequately saturating (above 89%) on room air prior to DC and did not qualify for home oxygen needs. Original Note: RN TATE Assessment Face to Face with patient for initial transition planning/care coordination assessment. ROBERT YBARRA introduced self and role at [facility], pt voices understanding. Pt is A&Ox4 and is resting comfortably in bed and is calm. Pt's daughter, Annalisa, at bedside. Care providers, pharmacy, and demographics verified. Admitting dx: Right Carotid Endarterectomy LACE Strata: 2 PCP: Karla Baron Specialists: Nilam (Vascular) Preferred Pharmacy: [facility] Insurance: [facility] A/B, [facility] Prescription Benefit: Yes LNOK: Annalisa Johnston (Daughter), Juli Chamberlain (Daughter) Living Arrangements: Pt lives alone in a single story home with 2 steps to enter ADLs/IADLs: Pt states that he is indep. Current 6-Click score is 18. PT is ordered and pending. Pt to get up with nursing or PT today prior to DC. Transportation: Self, daughter, family. Pt states that he is also interested in local transportation services. Transportation resources provided to the pt at this time. DME: Denies all DME uses or needs at this time. Pt is currently requiring additional oxygen and may qualify for home oxygen use. A verbal list of local in-network DME companies were provided to the pt at this time. Pt states that he does not want to give a preference unless he qualifies for the oxygen. CM to follow. 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 Pt states that he would like to hire a fish cleaner machine tender. Pvt Duty FABRIC AND ACCESSORIES ESTIMATOR resources provided to the pt. Per ICU rounds and chart review, pt is running hypertensive and will be monitored today. Anticipate DC today vs tomorrow. Pt states that he feels safe returning home at the time of DC and states that he has plenty of family support at home and will not be home alone. Pt denies further questions or concerns at this time. CM to follow. Alysia Shipman RN, CM
--- NOTE | 2024-09-18 12:39 | PCM.DC.SUM ---
Providers Date of Admission: 09/17/24 Primary Care Physician: RAYO Pillai Reason For Visit: Right Carotid Endarterectomy Diagnosis Discharge Diagnosis (1) Carotid stenosis, right: Status: Chronic Code(s): I65.21 - Occlusion and stenosis of right carotid artery Plan He is POD#1 from R CEA. I removed the ИВАН drain this morning without issue, he tolerated this well. He is neurologically stable. His blood pressures have been on the higher side, his home antihypertensive medication regimen has continued, will monitor. Discontinue arterial line. He has baseline urinary retention; home tamsulosin has been continued. Will monitor. Progress to normal diet. Plan to ambulate with nursing/PT. Possible discharge this afternoon. Medications at Discharge Home Medications amlodipine 10 mg tablet 10 mg PO DAILY HYPERTENSION 05/02/16 clopidogrel 75 mg tablet 75 mg PO DAILY BLOOD THINNER 05/02/16 tamsulosin 0.4 mg capsule (Flomax) 0.4 mg PO DAILY PROSTATE 05/02/16 metoprolol tartrate 100 mg tablet 100 mg PO BID HTN 11/09/20 pantoprazole 20 mg tablet,delayed release (Protonix) 20 mg PO DAILY GERD 11/09/20 acetaminophen 500 mg tablet (Tylenol Extra Strength) 500 mg PO Q4H PRN pain 08/05/24 losartan 25 mg tablet 25 mg PO QDAY bp 09/03/24 brimonidine 0.2 % eye drops 1 drp ophthalmic (eye) BID pressure 09/05/24 latanoprost 0.005 % eye drops drp ophthalmic (eye) pressure 09/05/24 timolol maleate 0.5 % eye drops 1 drp ophthalmic (eye) BID pressure 09/05/24 oxycodone 5 mg tablet 5 mg PO Q8H PRN PRN Pain Score 4-10 3 days #9 tabs 09/18/24 Hospital Course Operations - (R CEA) Summary of Care Provided Hospital Course: Mr. Johnston is a 84 y/o male who underwent R CEA 09/17/2024. The procedure was without complication and he tolerated it well. Postoperatively, he was routinely admitted to the ICU for ongoing hemodynamic and neurologic monitoring. He has remained neurologically stable throughout his admission. He was initially hypertensive postoperatively but this improved with resuming his home antihypertensive regimen. He initially had significant urinary retention but this improved to his baseline stable chronic urinary retention. He tolerated normal diet, ambulated well. ИВАН drain was removed POD#1 without issue, incision site without hematoma. He is discharged home today with planned follow-up in the office 10/09/24. Physical Exam Const alert, oriented x3 and no apparent distress General Appearance: cooperative and comfortable HEENT normocephalic, head/scalp atraumatic, hearing grossly normal bilaterally, external ears normal and external nose normal Eyes General Eye: normal appearance of both eyes Neck Neck Narrative: R CEA incision site with skin glue intact, no dehiscence, minimal edema, no ecchymosis, soft/nontender to palpation. There is ~20cc sanguineous output in the ИВАН. Resp normal respiratory effort, normal air movement, no retractions and no use of accessory muscles Effort and Inspection: able to speak in complete sentences; Negative for labored, grunting or stridor Cardio regular rate and regular rhythm Extremity normal to inspection, full ROM and no clubbing, cyanosis or edema Skin no rashes or lesions noted Trauma: no lacerations or abrasions Neuro oriented x3, CN's II-XII intact bilaterally, moves all extremities, no focal motor deficits and no sensory deficits noted Speech: speech normal Weight / BMI Weight Weight: 156 lb 4.924 oz Body Mass Index (BMI) 23.8 ABG / Lab / Microbiology Data 09/18/24 04:37 Laboratory: Laboratory Results - last 24 hr 09/17/24 11:11: Activated Clotting Time 124 09/17/24 11:51: Activated Clotting Time 268 H 09/17/24 12:26: Activated Clotting Time 239 H 09/18/24 04:37: WBC 11.5 H, RBC 4.19 L, Hgb 13.3, Hct 37.8 L, MCV 90.2, MCH 31.7, MCHC 35.2, RDW Std Deviation 44.7 H, RDW Coeff of Krishna 13.7, Plt Count 219, MPV 10.3, Immature Gran % (Auto) 0.300, Neut % (Auto) 90.6 H, Lymph % (Auto) 5.2 L, [place] % (Auto) 3.8, Eos % (Auto) 0.0, Baso % (Auto) 0.1, Absolute Neuts (auto) 10.4 H, Absolute Lymphs (auto) 0.60 L, Nucleated RBC % 0 D/C Instructions Weight Bearing Status: Weight bearing as tolerated Lifting Restricted to (Lbs): 20 Lifting Restrictions: Do not lift more than 20 pounds for 3 weeks Call your doctor if your incision/area has: Sudden Increased Bleeding and Foul Smelling Discharge Call your doctor if you observe: Fever of 101 or Higher and Uncontrolled pain DC O2, CPAP, BIPAP Needs Home O2 Discharge instructions: No Additional Instructions: INCISION CARE: You have a small bandage on your neck over the site from which the surgical drain was removed. You may remove this bandage tomorrow. As long as there is no residual drainage, you may leave this open to air. If you do notice some continued drainage, you may re-cover with a Band-Aid. Your neck incision site is covered with skin glue which will continue to protect it. The skin glue will peel/flake off on its own over the next few weeks. Please do not pick at it. You may shower tomorrow. It is okay for soap and water to rinse over the incision site, pat to dry. Do not submerge the incision site in water such as to take a bath or go swimming etc. for 3 weeks. MEDICATION INSTRUCTIONS You have been prescribed oxycodone 5mg tablet to be taken by mouth every 8 hours as needed for pain. You may take this in addition to Tylenol as needed. You should not drive or operate machinery while taking this medication. Do not take this medication in combination with any other prescription pain medications. Call the office at [phone] with any questions about your medications ACTIVITY INSTRUCTIONS Do not lift greater than 20 pounds for 3 weeks. Otherwise, please continue with activity as tolerated. Do not drive until you can turn your head well enough to safely check your blind spots. FOLLOW-UP INSTRUCTIONS You are scheduled for follow-up in the office on 10/09/24. If you need to change this appointment or have any other questions/concerns, please call the office at [phone]. Please Follow Up With: Sammie Strong PA When: 10/09/24 Meaningful Use Info Meaningful Use Meaningful Use Diagnoses (Choose all that apply): None applicable Discharge Plan Admission Admit Date/Time: 09/17/24 13:25 Attending Provider: Mello Demarco Primary Care Provider: Devonte Baron NP Instructions Additional Instructions / Restrictions: INCISION CARE: You have a small bandage on your neck over the site from which the surgical drain was removed. You may remove this bandage tomorrow. As long as there is no residual drainage, you may leave this open to air. If you do notice some continued drainage, you may re-cover with a Band-Aid. Your neck incision site is covered with skin glue which will continue to protect it. The skin glue will peel/flake off on its own over the next few weeks. Please do not pick at it. You may shower tomorrow. It is okay for soap and water to rinse over the incision site, pat to dry. Do not submerge the incision site in water such as to take a bath or go swimming etc. for 3 weeks. MEDICATION INSTRUCTIONS You have been prescribed oxycodone 5mg tablet to be taken by mouth every 8 hours as needed for pain. You may take this in addition to Tylenol as needed. You should not drive or operate machinery while taking this medication. Do not take this medication in combination with any other prescription pain medications. Call the office at [phone] with any questions about your medications ACTIVITY INSTRUCTIONS Do not lift greater than 20 pounds for 3 weeks. Otherwise, please continue with activity as tolerated. Do not drive until you can turn your head well enough to safely check your blind spots. FOLLOW-UP INSTRUCTIONS You are scheduled for follow-up in the office on 10/09/24. If you need to change this appointment or have any other questions/concerns, please call the office at [phone]. Discharge Orders/Prescriptions Prescriptions: New oxycodone 5 mg Tablet 5 mg PO Q8H PRN PRN (Reason: Pain Score 4-10) 3 Days Qty: 9 0RF Continued metoprolol tartrate 100 mg tablet 100 mg PO BID Patient Comments: TAKE 1 TABLET BY MOUTH TWICE DAILY. pantoprazole [Protonix] 20 mg tablet,delayed release (DR/EC) 20 mg PO DAILY losartan 25 mg tablet 25 mg PO QDAY clopidogrel 75 MG tablet 75 mg PO DAILY tamsulosin [Flomax] 0.4 MG capsule 0.4 mg PO DAILY amlodipine 10 MG tablet 10 mg PO DAILY acetaminophen [Tylenol Extra Strength] 500 mg tablet 500 mg PO Q4H PRN (Reason: pain) Patient Comments: PT STATES TAKING FOR PAIN AFTER HAVING BIG TOE NAILS REMOVED 08/04. UNAWARE OF NEED TO LIMIT TYLENOL TO 4000MG/DAY. INSTRUCTED PT NOT TO TAKE MORE THAN 4000 MG EACH DAY. PT VERBALIZED UNDERSTANDING, BUT INTENT TO FOLLOW INSTRUCTIONS QUESTIONABLE. MESSAGE WITH [facility] FOR THEM TO CALL PT AND CLARIFY DOSAGE AND ADDRESS PAIN MNGT NEEDS. MSG WITH DEVONTE MCCOY, PT'S PCP, REGUARDING NEED FOR PAIN MED AND PT TAKING TYLENOL TOO OFTEN. brimonidine 0.2 % drops 1 drp ophthalmic (eye) BID latanoprost 0.005 % drops ophthalmic (eye) timolol maleate 0.5 % drops 1 drp ophthalmic (eye) BID Referrals / Follow Up: Devonte Baron COVERSTITCH MACHINE OPERATOR, COVERSTITCH MACHINE OPERATOR-C [Primary Care Provider] - Disposition Disposition (needs filled in before D/C Order can be placed): Home, Self Care Charges/Coding Procedures Integumentary 111xxx-113xx: [id number] Global Visit
== END 2024-09-18 13:35 | disposition home or self-care (01) | DRG 39 ==
LOC: ICU 13:52
PROVIDERS: Admitting Provider Surgery Trauma Surgery; PCP Registered Nurse; Referring Provider Surgery Trauma Surgery; Visit Provider Surgery Trauma Surgery
PROC: 03CK0ZZ Extirpation of Matter from Right Internal Carotid Artery, Open Approach (ICD-10-PCS; CPT 35301; principal; 2024-09-17 09:40)
DX: I65.21 Occlusion and stenosis of right carotid artery (principal); F17.210 Nicotine dependence, cigarettes, uncomplicated; J44.9 Chronic obstructive pulmonary disease, unspecified; I10 Essential (primary) hypertension; K21.9 Gastro-esophageal reflux disease without esophagitis; I25.10 Atherosclerotic heart disease of native coronary artery without angina pectoris; I25.2 Old myocardial infarction; Z95.5 Presence of coronary angioplasty implant and graft; R33.9 Retention of urine, unspecified
CPT/HCPCS: 85025; 85347; 86850; 86900; 86901; 88304; 88311; 94668; 94762; 99252; A4648; G0463; J2405

== ENCOUNTER → 2024-12-17 | Outpatient (CLI) | payer MEDICARE, OTHER, SELFPAY | END | disposition home or self-care (01) | LOC: LAB 15:40 | PROVIDERS: PCP Registered Nurse; Referring Provider Surgery Trauma Surgery; Visit Provider Surgery Trauma Surgery | DX: I70.211 Atherosclerosis of native arteries of extremities with intermittent claudication, right leg (principal) | CPT/HCPCS: 36415; 82565 ==

== ENCOUNTER → 2025-01-08 | Outpatient (CLI) | payer MEDICARE, OTHER, SELFPAY ==
--- NOTE | 2025-01-08 07:40 | CT_ITS ---
PROCEDURE: CTA ABD W/RUNOFF W/WO CONTRAST 01/08/2025 REASON FOR EXAM: ATHEROSCLEROSIS WITH CLAUDICATION RIGHT LEG TECHNIQUE: Procedure Code: [id number] Modality: CT Procedure: CTA ABD W/RUNOFF W/WO CONTRAST One or more dose reduction techniques were used (e.g., Automated exposure control, adjustment of the mA and/or kV according to patient size, use of iterative reconstruction technique). Multiplanar Sagittal and Coronal images were obtained. 3D and or MIPS post processing was performed CONTRAST: Isovue-300 VOLUME: 100 mL RADIATION DOSE SUMMARY: CTDlvol: 8 mGy DLP: 1050.66 mGycm COMPARISON: Prior study dated September 09, 2022. FINDINGS: Aorta: Moderate degree of atherosclerotic calcification of the abdominal aorta. 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 Mural thrombus is seen. Iliac Arteries: Atherosclerotic calcific plaque of the common iliac arteries bilaterally. Moderate to severe in degree of narrowing of the right proximal external iliac artery. Celiac: Atherosclerotic plaque formation at the origin of the celiac artery SMA: Atherosclerotic calcific plaque at the origin of the superior mesenteric artery with moderate stenosis just distal to its origin. LAITH : Not visualized. Right Renal: Moderate plaque at the origin of the right renal artery. Left Renal: Moderate plaque at the level of the left renal artery. Lower Extremity Runoff (Bilateral): Common Femoral Arteries: Patent although focal stenosis. Superficial Femoral Arteries: Severe atherosclerotic plaque formation throughout the course of the right superficial femoral artery. Severe atherosclerotic plaque formation of the left superficial femoral artery. Profunda Femoris Arteries: Poor visualization. Popliteal Arteries: The popliteal arteries are reconstituted by collateral circulation at their origin. Tibial and Peroneal Arteries: Atherosclerotic plaque formation. Distal Runoff: Distal runoff in the right leg is from a patent anterior tibial artery. There is flow in the right perineal and posterior tibial arteries although multiple stenoses are seen. There is runoff to the left lower extremity via collateral circulation of the anterior tibial artery. The peroneal artery is patent. Extravascular Findings: There is a noncalcified 1.8 cm nodule in the posterior aspect of the right lower lobe. Diffuse fatty infiltration of the liver. Stable right renal cyst. Sigmoid diverticulosis. Prostatic enlargement with calcification. Diffuse bladder wall thickening. CT/CTA Abd w/Runoff W/WO Contrast IMPRESSION: Limited runoff in both lower extremities as described with the multiple stenoti c plaques throughout both superficial femoral arteries. Noncalcified nodule in the right lower lobe. Follow-up recommended. Reading Location: [facility]
--- NOTE | 2025-01-08 07:40 | VDLE_ITS ---
Reason For Study Reason For Study: Pre op lower extremity bypass RIGHT LEFT GSV prox thigh, 0.27 x 0.25 cm. GSV prox thigh, 0.32 x 0.31 cm. GSV mid thigh, 0.25 x 0.26 cm. GSV mid thigh, 0.29 x 0.28 cm. GSV distal thigh, 0.27 x 0.28 cm. GSV distal thigh, 0.28 x 0.28 cm. GSV knee, 0.28 x 0.27 cm. GSV knee, 0.35 x 0.37 cm. GSV prox calf, 0.22 x 0.25 cm. GSV prox calf, 0.25 x 0.26 cm. GSV mid calf, 0.32 x 0.35 cm. GSV mid calf, 0.32 x 0.34 cm. GSV distal calf, 0.23 x 0.28 cm. GSV distal calf, 0.34 x 0.37 cm. SSV prox, 0.22 x 0.22 cm. SSV prox, 0.27 x 0.28 cm. SSV mid, 0.17 x 0.18 cm. SSV mid, 0.16 x 0.17 cm. SSV distal, 0.10 x 0.12 cm. SSV distal, 0.13 x 0.14 cm. GSV and SSV are compressible. GSV and SSV are compressible. Procedure This is a venous duplex using B-mode, color flow and spectral Doppler. Exam performed in department. VL/Saphenous Vein Mapping, Bilat Interpretation Summary Right great saphenous vein patent with measurements above. Left great saphenous vein patent with measurements above. Right small saphenous vein patent with measurements above. Left small saphenous vein patent with measurements above. Ordering Physician: Mello Demarco Referring Physician: Karla Baron Performed By: Chrissy Albrecht RVT
--- OUTSIDE RECORDS SUMMARY | 2025-01-08 07:58 | XMS RPT_ITS | CCD ---
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 Opioid use review [...] YR, HIGH DOSE, TRIVALENT (FLUZONE HIGH-DOSE) - [employer] COVID-19 VACCINE AGE 12+ YR (COMIRNATY) 5. [...] potential side effects were discussed and patient voic (more content not included)... Normal [facility] L/S Spine Bending Flex/[place] 11-14-2024 L/S Spine Bending Flex/Ext [facility] Imaging Services [address] [place], [place] [id number] L/S Spine Bending Flex/Ext MR#: [id number] Acct: [id number] Name: RAMONITA EL Rep #: [id number] : 1940 M 84 From: Rina Hendricks MD PCP: RAYO Pillai Status: DEP AMB Study: L/S Spine Bending Flex/Ext Date of Exam: 11/14 Exam# [id number] Ordering Dr: Siomara Ty EXAM: XR Lumbosacral Spine, 4 or 5 Views CLINICAL INDICATION: BACK PAIN TECHNIQUE: Frontal, lateral and bilateral oblique views of the lumbar spine. COMPARISON: No relevant prior studies available. FINDINGS: VERTEBRAE: Anterior spondylolisthesis of L 5 over S1 by 23 mm, which decreases to 14 mm on extension. Further evaluation with MRI is recommended. Degenerative facet arthropathy throughout the lumbar spine, most prominent in the lower lumbar spine. No acute fracture. SACRUM/COCCYX: Unremarkable as visualized. No acute fracture. DISC SPACES: Degenerative disc disease throughout the lumbar spine. SOFT TISSUES: Unremarkable. VASCULATURE: Scattered calcified atherosclerotic disease of aorta. RAD/L/S Spine Bending Flex/Ext IMPRESSION: Degenerative changes lumbar spine as described. Reading Location: [id number] CC: RAYO Baron; KRISTI Webster Instructional Technologist: Signed Normal [facility] Orthopedic Visit Reporton Orthopedic Visit Report [facility] [address] [place] [address] [address] [place] [address] OFFICE VISIT Date of Service: 11/14/24 MR#: [id number] Acct: [id number] Name: RAMONITA EL Rep #: [id number] : 1940 Provider: Dr. Yadiel Awan MD Age/Sex: 84/M Location: [facility] Status: Signed Intake Vital Signs 10/16/24 13:30 11/14/24 10:31 Height 5 ft 8 in 5 ft 8 in Weight: 156 lb 6 oz BMI 23.8 Intake Visit Reasons: LUMBAR SPINE Allergies cilostazol (From Pletal) Allergy (Intermediate, Verified 11/14/24 10:32) PT UNSURE OF REACTION lisinopril Allergy (Intermediate, Verified 11/14/24 10:32) PT UNSURE OF REACTION Penicillins Allergy (Verified 11/14/24 10:32) Hives atorvastatin Adverse Reaction (Intermediate, Verified 11/14/24 10:32) myalgia pravastatin Adverse Reaction (Intermediate, Verified 11/14/24 10:32) myalgia Medications ???Medication ???Instructions ???Recorded ???Confirmed ???Type amlodipine 10 mg tablet 10 mg PO DAILY HYPERTENSION 11/14/24 History clopidogrel 75 mg tablet 75 mg PO DAILY BLOOD THINNER 05/0211/14/24 History tamsulosin 0.4 mg capsule (Flomax) 0.4 mg PO DAILY PROSTATE 7 11/14/24 History metoprolol tartrate 100 mg tablet 100 mg PO BID HTN 11/09/20 History pantoprazole 20 mg tablet,delayed 20 mg PO DAILY GERD 11/09/2011/05 History release (Protonix) acetaminophen 500 mg tablet 500 mg PO Q4H PRN pain 08/05/24 History (Tylenol Extra Strength) losartan 25 mg tablet 25 mg PO QDAY bp 09/03/24 11/14/24 History brimonidine 0.2 % eye drops 1 drp ophthalmic (eye) BID pressur e 09/05/24 11/14/24 History latanoprost 0.005 % eye drops drp ophthalmic (eye) pressure 08/03/0111/14/24 History timolol maleate 0.5 % eye drops 1 drp ophthalmic (eye) BID pressur e 09/05/24 11/14/24 History Have you fallen in the past year?: No PFSH Medical History (Updated 11/14/24 @ 11:16 by Nia Stanton RN) Spondylolisthesis Wears glasses Alcohol use Easy bruising Smoker [...] angina pectoris Essential hypertension Alcoholism Surgical History Hx of cardiac cath History of colonoscopy History of angioplasty of peripheral vessel (09/28/09) History of coronary artery stent placement (08/10/06) Family History Mother Cancer Brother Heart disease Social History Smoking Status: Heavy Smoker (>10/day) alcohol intake: current alcohol intake frequency: a few times a month substance use type: does not use HPI LUMBAR SPINE Details: This documentation accurately reflects the service provided and the decisions made by me, Dr. Yadiel Awan MD 11/14/24 1029. Part of today???s visit was documented by Roberta OVERTON and Nia Stanton RN, acting as scribe. RAMONITA EL is a 84 year old M here today for right leg pain. He did see [facility] who he saw for a carotid artery. He states that he sees Dr. Demarco and that he thinks it is from his spine based off the xrays that were taken but the patient believes it is a blood flow issues. He states that he had similar symptoms in the left leg 6-8 years ago and had surgery for a stent placement. He states that he pain is in the posterior calf and ankle. At times he does have pain when moving his ankle. He states that his calf is tender. He denies redness or warmth over the calf. He states that when he is having pain if he sits for about 30 minutes then his pain subsides. He states that he did have a test on the leg about 2 months ago that was similar to a blood pressure cuff on the leg but denies have a doppler study. He denies having any pain in the lower back. He states he can only walk 50 feet until the pain is severe in the right calf and he has to stop. The patient is an 84-year-old male presenting with leg pain potentially related to vascular issues and to assess any contribution from the spine. The patient reports experiencing pain in the right calf, which becomes severe after walking approximately 50 feet, necessitating rest to alleviate the dis (more content not included)... Normal [facility] Surgery Visit Reporton 10-09 Surgery Visit Report [facility] [address] [place] [address] OFFICE VISIT Date of Service: 10/09/24 MR#: [id number] Acct: [id number] Name: RAMONITA EL Rep #: [id number] : 1940 Provider: KRISTI Garza Age/Sex: 84/M Location: [facility] Status: Signed Intake Vital Signs 09/17/24 16:02 10/09/24 09:36 Height 5 ft 8 in 5 ft 8 in Weight: 153 lb BMI 23.2 BP 136/66 H Blood Pressure Location Lt brachial Position Sitting Respiration 14 Pulse 62 Pulse Source Monitor Temp 97.8 F Temp Source Temporal Pulse Oximetry (%) 97 Oxygen Delivery Method room air Intake Visit Reasons: FU Is patient in pain?: No Allergies cilostazol (From Pletal) Allergy (Intermediate, Verified 10/09/24 10:02) PT UNSURE OF REACTION lisinopril Allergy (Intermediate, Verified 10/09/24 10:02) PT UNSURE OF REACTION Penicillins Allergy (Verified 10/09/24 10:02) Hives atorvastatin Adverse Reaction (Intermediate, Verified 10/09/24 10:02) myalgia pravastatin Adverse Reaction (Intermediate, Verified 10/09/24 10:02) myalgia Medications ???Medication ???Instructions ???Recorded ???Confirmed ???Type amlodipine 10 mg tablet 10 mg PO DAILY HYPERTENSION 10/09/24 History clopidogrel 75 mg tablet 75 mg PO DAILY BLOOD THINNER 05/0210/09/24 History tamsulosin 0.4 mg capsule (Flomax) 0.4 mg PO DAILY PROSTATE 7 10/09/24 History metoprolol tartrate 100 mg tablet 100 mg PO BID HTN 11/09/20 History pantoprazole 20 mg tablet,delayed 20 mg PO DAILY GERD 11/09/2005/30 History release (Protonix) acetaminophen 500 mg tablet 500 mg PO Q4H PRN pain 08/05/24 History (Tylenol Extra Strength) losartan 25 mg tablet 25 mg PO QDAY bp 09/03/24 10/09/24 History brimonidine 0.2 % eye drops 1 drp ophthalmic (eye) BID pressur e 09/05/24 10/09/24 History latanoprost 0.005 % eye drops drp ophthalmic (eye) pressure 03/0110/09/24 History timolol maleate 0.5 % eye drops 1 drp ophthalmic (eye) BID pressur e 09/05/24 10/09/24 History Have you fallen in the past year?: No Nurse's Note: c/o rt leg pain that he has given up getting help from. He stated he had to be assisted out of [facility] because of the rt leg pain. Subjective Details: Mr. Ramonita El is an 84 y/o male who returns to the office today for his scheduled postoperative visit s/p R CEA 09/17/24. He reports the swelling around the incision site has been going down; he has no pain or other concerns with the incision site today. He denies any headaches or episodes of focal neurologic symptoms. His primary concern today is actually his lower extremity pain; at prior office visit have discussed referral to ortho for consideration of neurogenic component to his claudication, but at that time primary focus was planning for carotid intervention. Objective Details: A Ox3, NAD RRR Nonlabored respirations R CEA incision site is well-healed, mild swelling remains, soft to palpation without erythema/warmth. Coding Level of Care Code Global Post Op Diagnoses Carotid stenosis, right I65.21 [facility] Medical History Wears glasses Alcohol use Easy [...] angina pectoris Essential hypertension Alcoholism Surgical History Hx of cardiac cath History of colonoscopy History of angioplasty of peripheral vessel (09/28/09) History of coronary artery stent placement (08/10/06) Family History Mother Cancer Brother Heart disease Social History Smoking Status: Heavy Smoker (>10/day) alcohol intake: current alcohol intake frequency: a few times a month substance use type: does not use Assessment and Plan (No Qualifiers) Assessment and Plan (1) Carotid stenosis, right: Status: Chronic Comment: s/p R CEA 09/17/24 Plan Will plan for repeat carotid duplex at 6 and 12 months post-operative. Continue current medical management with Plavix 75mg daily. Will clayton (more content not included)... Normal [facility] Surgery Visit Reporton 09-23 Surgery Visit Report [facility] [address] [place] [address] OFFICE VISIT Date of Service: 09/23/24 MR#: [id number] Acct: [id number] Name: RAMONITA EL Rep #: [id number] : 1940 Provider: KRISTI Garza Age/Sex: 84/M Location: [facility] Status: Signed Intake Vital Signs 08/25/24 09:40 09/17/24 16:02 09/23/24 09:35 Height 5 ft 8 in 5 ft 8 in Weight: 151 lb BP 145/69 H Blood Pressure Location Rt brachial Position Sitting Respiration 18 Pulse 65 Pulse Source Monitor Temp 98.6 F Temp Source Temporal Pulse Oximetry (%) 95 Oxygen Delivery Method room air Intake Visit Reasons: Post-Op F/U - R Carotid Endarterectomy Chief Complaint: Left knee pain Is patient in pain?: No Allergies cilostazol (From Pletal) Allergy (Intermediate, Verified 09/23/24 09:26) PT UNSURE OF REACTION lisinopril Allergy (Intermediate, Verified 09/23/24 09:26) PT UNSURE OF REACTION Penicillins Allergy (Verified 09/23/24 09:26) Hives atorvastatin Adverse Reaction (Intermediate, Verified 09/23/24 09:26) myalgia pravastatin Adverse Reaction (Intermediate, Verified 09/23/24 09:26) myalgia Medications ???Medication ???Instructions ???Recorded ???Confirmed ???Type amlodipine 10 mg tablet 10 mg PO DAILY HYPERTENSION 09/23/24 History clopidogrel 75 mg tablet 75 mg PO DAILY BLOOD THINNER 05/0209/23/24 History tamsulosin 0.4 mg capsule (Flomax) 0.4 mg PO DAILY PROSTATE 7 09/23/24 History metoprolol tartrate 100 mg tablet 100 mg PO BID HTN 11/09/20 History pantoprazole 20 mg tablet,delayed 20 mg PO DAILY GERD 11/09/2009/05 History release (Protonix) acetaminophen 500 mg tablet 500 mg PO Q4H PRN pain 08/05/24 History (Tylenol Extra Strength) losartan 25 mg tablet 25 mg PO QDAY bp 09/03/24 09/23/24 History brimonidine 0.2 % eye drops 1 drp ophthalmic (eye) BID pressur e 09/05/24 09/23/24 History latanoprost 0.005 % eye drops drp ophthalmic (eye) pressure 08/03/0109/23/24 History timolol maleate 0.5 % eye drops 1 drp ophthalmic (eye) BID pressur e 09/05/24 09/23/24 History benzonatate 100 mg capsule 100 mg PO BID PRN cough #60 caps 0 09/23/24 09/23/24 Rx Have you fallen in the past year?: No Subjective Details: Mr. Ramonita El is an 84 y/o male who presents to the office today for early follow-up s/p R CEA 09/17/24 with concerns for swelling at the surgical site. His postoperative course during his admission was uncomplicated; he'd had postoperative asymptomatic hypertension (requiring a few doses of PRNs but no nitro drip) that improved with resumption of his home antihypertensive regimen. No signs/symptoms of hematoma at the time of discharge. He reports that he has not noticed any sudden or significant increase in swelling around the incision, but rather that it simply is not going down as fast as he expected. He does not have any pain and no persistent headaches. He has not noticed any bruising, drainage, or redness. He has been scrubbing at the glue a bit. He has been coughing a bit more than usual (though does have a chronic cough) though no fevers/chills and not productive. He is not checking his BPs at home. He does complain of difficulty sleeping, this has been ongoing even prior to the procedure; he has tried to address with current PCP but feels they do not listen and would like to establish with new PCP. He reports if he tries to sleep in bed with a flat pillow then he wakes up with a sore neck all over not just at the incision site and headache near the base of his neck and essentially in hat-band distribution. If he sleeps in his recliner he does not have this problem. He has not tried a thicker pillow. He denies any vision changes, unilateral numbness/paresthesias/weak ness, dysarthria, facial droop, vertigo or other neurologic symptoms. Objective Details: A Ox3, NAD RRR Nonlabored respirations There is mild-moderate swelling around the incision site, soft and nontender to palpation. No associated ecchymosis, erythema, excess warmth. Skin glue intact, incision appears well-healing. 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 Normal [facility] Absolute lymphocyte countOrd ered By: Mello Demarco on 09-18-2024 Lymphocytes Auto (Unsp spec) [#/Vol] 0.60 10*3/uL Low 0.83-4.51 [facility] Absolute neutrophil countOrd ered By: Mello Demarco on 09-18-2024 Neutrophils (Bld) [#/Vol] 10.4 10*3/uL High 2.0-7.7 [facility] Automated lymphocyte count a s percentage of total leukocytesOrdered By: Mello Demarco on 09-18-2024 Lymphocytes/100 WBC Auto (Unsp spec) 5.2 % Low 19-41 [facility] Basophil percentageOrdered B y: Mello Demarco on 09-18-2024 Basophils/100 WBC (Bld) 0.1 % 0-1 [facility] CBC W/Diff, Automatedon 09-05 Absolute Lymph 0.60 X10 3/uL Low 0.83-4.51 [facility] Comment on above: Performed By: #### L 100.0100 #### [facility] [address] [place], [address] Absolute Neut 10.4 X10 3/uL High 2.0-7.7 [facility] Comment on above: Performed By: #### L 100.0100 #### [facility] [address] [place], [address] Basophils/100 WBC (Bld) 0.1 % Normal 0-1 [facility] Comment on above: Performed By: #### L 100.0100 #### [facility] [address] [place], [address] Eosinophils/100 WBC (Bld) 0.0 % Normal 0-5 [facility] Comment on above: Performed By: #### L 100.0100 #### [facility] [address] [place], [address] Erythrocyte distribution width (RBC) [Ratio] 13.7 % Normal 11.6-14.6 [facility] Comment on above: Performed By: #### L 100.0100 #### [facility] [address] [place], [address] Hematocrit (Bld) [Volume fraction] 37.8 % Low 40-54 [facility] Comment on above: Performed By: #### L 100.0100 #### [facility] [address] [place], [address] Hemoglobin (Bld) [Mass/Vol] 13.3 g/dL Normal 13.0-16.5 [facility] Comment on above: Performed By: #### L 100.0100 #### [facility] [address] [place], [address] IG% 0.300 Normal 0.0-0.9 [facility] Comment on above: Result Comment: IG% - Immature Granulocytes (promyelocytes, myelocytes and metamyelocytes) > 1% indicates that a LEFT SHIFT is Present. Performed By: #### L 100.0100 #### [facility] [address] [place], [address] Lymphocytes/100 WBC (Bld) 5.2 % Low 19-41 [facility] Comment on above: Performed By: #### L 100.0100 #### [facility] [address] [place], [address] MCH (RBC) [Entitic mass] 31.7 pg Normal 27.0-32.0 [facility] Comment on above: Performed By: #### L 100.0100 #### [facility] [address] [place], [address] MCHC (RBC) [Mass/Vol] 35.2 g/dL Normal 32-36 [facility] Comment on above: Performed By: #### L 100.0100 #### [facility] [address] [place], [address] MCV (RBC) [Entitic vol] 90.2 fL Normal 80-94 [facility] Comment on above: Performed By: #### L 100.0100 #### [facility] [address] [place], [address] Monocytes/100 WBC (Bld) 3.8 % Normal 0-10 [facility] Comment on above: Performed By: #### L 100.0100 #### [facility] [address] [place], [address] Neutrophils/100 WBC (Bld) 90.6 % High 47-70 [facility] Comment on above: Performed By: #### L 100.0100 #### [facility] [address] [place], [address] Nucleated RBC (Bld) [#/Vol] 0 10*3/uL Normal 0-5 [facility] Comment on above: Performed By: #### L 100.0100 #### [facility] [address] [place], [address] Platelet mean volume (Bld) [Entitic vol] 10.3 fL Normal 6.2-12.0 [facility] Comment on above: Performed By: #### L 100.0100 #### [facility] [address] [place], [address] Platelets (Bld) [#/Vol] 219 10*3/uL Normal 150-450 [facility] Comment on above: Performed By: #### L 100.0100 #### [facility] [address] [place], [address] RBC (Bld) [#/Vol] 4.19 10*6/uL Low 4.6-6.2 [facility] Comment on above: Performed By: #### L 100.0100 #### [facility] [address] [place], [address] RDW SD 44.7 fl High 35.1-43.9 [facility] Comment on above: Performed By: #### L 100.0100 #### [facility] [address] [place], [address] WBC (Bld) [#/Vol] 11.5 10*3/uL High 4.4-11.0 [facility] Comment on above: Performed By: #### L 100.0100 #### [facility] [address] [place], [address] Eosinophil percentageOrdered By: Mellorachael Demarco on 09-18-2024 Eosinophils/100 WBC (Bld) 0.0 % 0-5 [facility] Erythrocyte distribution wid th ratioOrdered By: Mellorachael Demarco on 09-18-2024 Erythrocyte distribution width (RBC) [Ratio] 13.7 % 11.6-14.6 [facility] Erythrocyte distribution wid th standard deviationOrdered By: Mellorachael Demarco on 09-18-2024 Erythrocyte distribution width (RBC) [Ratio] 44.7 fl High 35.1-43.9 [facility] Hematocrit Auto (Bld) [Volum e fraction]Ordered By: Mellorachael Demarco 09-18-2024 Hematocrit (Bld) [Volume fraction] 37.8 % Low 40-54 [facility] Hemoglobin measurementOrdere d By: Mello Demarco on 09-18-2024 Hemoglobin (Bld) [Mass/Vol] 13.3 g/dL 13.0-16.5 [facility] Immature granulocytes/100 WB C Auto (Bld)Ordered By: Mellorachael Demarco 09-18-2024 Immature granulocytes/100 WBC (Bld) 0.300 % 0.0-0.9 [facility] Comment on above: IG% - Immature Granu locytes (promyelocytes, myelocytes and metamyelocytes) > 1% indicates that a LEFT SHIFT is Present. MCV (mean corpuscular volume ) determinationOrdered By: Mello Demarco on 09-18-2024 MCV (RBC) [Entitic vol] 90.2 fL 80-94 [facility] Mean corpuscular hemoglobin (MCH) determinationOrdered By: Mellorachael Demarco 09-18-2024 MCH (RBC) [Entitic mass] 31.7 pg 27.0-32.0 [facility] Mean corpuscular hemoglobin concentration (MCHC) determinationOrdered By: Mellorachael Demarco 09-18-2024 MCHC (RBC) [Mass/Vol] 35.2 g/dL 32-36 [facility] Mean platelet volume determi nationOrdered By: Mellorachael Demarco on 09-18-2024 Platelet mean volume (Bld) [Entitic vol] 10.3 fL 6.2-12.0 [facility] Monocyte percentageOrdered B y: Mello Nilam on 09-18-2024 Monocytes/100 WBC (Bld) 3.8 % 0-10 [facility] Neutrophil percentageOrdered By: Mello Demarco on 09-18-2024 Neutrophils/100 WBC (Bld) 90.6 % High 47-70 [facility] Nucleated red blood cell per centageOrdered By: Mellorachael Demarco on 09-18-2024 Nucleated RBC/100 WBC (Bld) [Ratio] 0 % 0-5 [facility] Platelet countOrdered By: Guille rachael Demarco on 09-18-2024 Platelets (Bld) [#/Vol] 219 10*3/uL 150-450 [facility] RBC Auto (Bld) [#/Vol]Ordere d By: Mellorachael Demarco on 09-18-2024 RBC (Bld) [#/Vol] 4.19 10*6/uL Low 4.6-6.2 [facility] White blood cell (WBC) count Ordered By: Mellorachael Demarco on 09-18-2024 WBC (Bld) [#/Vol] 11.5 10*3/uL High 4.4-11.0 [facility] ACT Activated Clotting Timeo n 09-17-2024 ACTk CLOT TIME 239 sec High 74-137 [facility] Comment on above: Performed By: #### L 9100.0100 #### [facility] [address] [place], [place], [id number] (151) ACTk CLOT TIME 268 sec High 74-137 [facility] Comment on above: Performed By: #### L 9100.0100 #### [facility] [address] [place], [place], [id number] ACTk CLOT TIME 124 sec Normal 74-137 [facility] Comment on above: Performed By: #### L 9100.0100 #### [facility] [place], [address] Decalcification bone/plaqueo corazon 09-17-2024 Decalcification bone/plaque Patient Age/Sex Location Account Attending Physician RAMONITA EL /M [facility] [id number] Dr. Mello Demarco MD Specimen: [id number] Received: 09/17/24 Status: MARYGagan Zehra Num: [id number] Spec Type: PLAQUE Subm Dr: Dr. Mello Demarco MD HEADER OPERATION: Right carotid endarterectomy PRE-OP DIAGNOSIS: Stenosis of right carotid artery TISSUE SUBMITTED: A- Right carotid plaque MICROSCOPIC DIAGNOSIS A. Right carotid artery, plaque, endarterectomy: - Fibrointimal hyperplasia with calcification, consistent with atherosclerotic plaque. GROSS DESCRIPTION A. Received in formalin labeled with the patient's name and date of . Designated as right carotid plaque is a mcknight-yellow focally fragmented and bifurcated plaque measuring 3.5 x 1.1 x 0.6 cm. Video Game Designer sections are submitted in 1 cassette, following decalcification. ID 09/17/2024 [id number] Patient Age/Sex Location Account Attending Physician RAMONITA EL 84/M ICU [id number] Dr. Mello Demarco MD Signed (signature on file) Dr. Valeri Leo MD 09/21/24 [address] [place] Hospital Comment on above: Performed By: #### P DEC ####[facility] [id number] [facility] [place], [address] MR/POSTOP.[place] 09-17-2024 MR/POSTOP.[facility] Medical Records Department [address] [place] [address] Anesthesia Postop Eval I 09/17/24 1358 MR#: [id number] Acct: [id number] Name: RAMONITA EL Rep #: [id number] : 1940 84 From: Joe Clark CRNA PCP: RAYO Pillai Status:ADM IN Y Race: C Location: ICU [id number] Anesthesia: Postop Eval I Current Vital Signs Temperature: 98.0 F Pulse Rate: 72 Blood Pressure: 138/47 Respiratory Rate: 16 Pulse Ox: 98 Oxygen Delivery Method: Venturi Mask Oxygen Flow Rate (L/min): 8 Assessment Airway patent: Yes Spontaneous unlabored respirations: Yes Mental status: Awake nausea: No Vomiting: No Anesthesia Complication: No Fluid Hydration Crystalloid volume administer (ml): 1,700 Total IV fluid infused: 1,700 Progress Note Anesthesia document: Postop Eval 1 completed: Yes 09/17/24 1400 Date Joe Terrazas Signature: Date CC: Signed Normal [facility] MR/POSTOP.[facility] Medical Records Department [address] [place] [address] Anesthesia Postop Eval I 09/17/24 1357 MR#: [id number] Acct: [id number] Name: RAMONITA EL Rep #: [id number] : 1940 84 From: Joe Clark CRNA PCP: RAYO Pillai Status:DIS IN Y Race: C Location: ICU [id number] Anesthesia: Postop Eval I Current Vital Signs Temperature: 98 F Pulse Rate: 72 Blood Pressure: 138/47 Respiratory Rate: 14 Pulse Ox: 97 Oxygen Delivery Method: Simple Mask Oxygen Flow Rate (L/min): 8 Assessment Airway patent: Yes Spontaneous unlabored respirations: Yes Mental status: Awake nausea: No Vomiting: No Anesthesia Complication: No Fluid Hydration Crystalloid volume administer (ml): 1,700 Total IV fluid infused: 1,700 Progress Note Anesthesia document: Postop Eval 1 completed: Yes 10/03/24 1015 Date Joe Clark CRNA Cosigner Signature: Date CC: Signed Normal [facility] MR/LLOJQKIH0vr 09-17-2024 [facility] Medical Records Department [address] [place] [address] Anesthesia Postop Eval II 09/17/24 1635 MR#: [id number] Acct: [id number] Name: RAMONITA EL Rep #: [id number] : 1940 84 From: Sada Jacques CRNA PCP: RAYO Pillai Status:ADM IN Y Race: C Location: ICU [id number] Anesthesia Postop Eval I Sum Postop Eval Completion status Anesthesia document: Postop Eval 1 completed: Yes Anesthesia Postop Eval I Summary Anesthesia Postop Eval I Summary: Anesthesia Postop Eval I: Assessment Summary Airway patent Yes 09/17/24 14:00 CUSTOMER SERVICE ASSISTANT.PKEL Spontaneous unlabored Yes 09/17/24 14:00 CUSTOMER SERVICE ASSISTANT.PKEL respirations Mental status Awake 09/17/24 14:00 CUSTOMER SERVICE ASSISTANT.PKEL nausea No 09/17/24 14:00 CUSTOMER SERVICE ASSISTANT.PKEL Vomiting No 09/17/24 14:00 CUSTOMER SERVICE ASSISTANT.PKEL Anesthesia Postop Eval I: Fluid Summary Crystalloid volume administer 1,700 09/17/24 14:00 CUSTOMER SERVICE ASSISTANT.PKEL (ml) Colloids volume administered ( ml) Blood Product volume administered (ml) Total IV fluid infused 1,700 09/17/24 14:00 CUSTOMER SERVICE ASSISTANT.PKEL Anesthesia Postop Eval I: Summary Notes Anesthesia Complication No 09/17/24 14:00 CUSTOMER SERVICE ASSISTANT.PKEL Anesthesia Complication Comment: Post-operative progress note Anesthesia: Postop Eval II Evaluation Mental status: Awake Pain Level: 2 nausea: No Vomiting: No 09/17/24 1635 Date Sada Jacques CUSTOMER SERVICE ASSISTANT Cosigner Signature: Date CC: Signed Normal [facility] Operative Reporton 5 Operative Report [facility] Medical Records Department [address] [place] [address] Operative Report 09/17/24 1331 MR#: [id number] Acct: [id number] Name: RAMONITA EL Rep #: [id number] : 1940 84 From: Mello Demarco MD PCP: RAYO Pillai Status:ADM IN Location: ICU [id number] Operative Report (Standard) Operative Information Date of Procedure: 09/17/24 Pre-Operative Diagnosis: right carotid stenosis Post-Operative Diagnosis: same Surgery/Procedure Performed: right carotid endarterectomy operations administrative assistant: Yes Telecommunication Tower Technician: Terell Schwarz Tasks completed by car rental sales assistant: Opening, Closing, Opening closing, Hemostasis: Tie and Retracting Type of Anesthesia: General RN Documented Start/Stop Times: Operation Date: 09/17/24 10:00 Case Time Into Pre-Op 09/17/24 08:00 Anesthesia Start 09/17/24 10:39 Into Room 09/17/24 10:39 Procedure Start 09/17/24 11:15 Procedure End 09/17/24 13:38 Anesthesia End 09/17/24 13:46 Out of Room 09/17/24 13:46 Into Recovery 09/17/24 13:52 Out of Pre-Op Procedure Start Time: 11:15 Procedure Stop Time: 13:30 Select all DRAINS/GRAFTS/IMPLANTS that apply: Drains Drain details: 19 Fr ИВАН and Tissue Tissue details: bovine patch Estimated Blood Loss: 24 Specimen collected: Yes Description of specimen(s) removed: plaque Description of surgery: HPI: Patient is an 84-year-old male with severe asymptomatic right carotid artery stenosis. He is taken now for elective endarterectomy. Description of procedure: Upon obtaining informed consent and verification correct patient procedure site the patient was taken to the operating room was placed under general anesthesia. He was then positioned prepped and draped in usual sterile fashion a timeout was performed. Oblique incision was made along the anterior border the sternocleidomastoid and Bovie used to dissect down through subcutaneous tissue to the level of the platysma. This was then divided and self-retaining retractor put in position with further dissection carried down to the sternocleidomastoid. This was mobilized along the anterior border along posterolateral retraction and exposing the carotid sheath. Sharp dissection was used to dissect the jugular vein with the facial vein identified, ligated with silk ties, and divided. The jugular vein was then retracted laterally exposing the carotid vessels. Sharp dissection was used to dissect free the proximal common carotid artery circumferentially with care taken to identify and protect the adjacent vagus nerve which was in its normal anatomic position. A right angle was then used to place a vessel loop and attention turned to the internal carotid artery. Sharp dissection was used to dissect free the vessel distal to the palpable and visible plaque with care taken to identify and protect the hypoglossal nerve. A right angle was used to place a vessel loop beyond the plaque and the patient was then heparinized allowed to circulate for 3 minutes with subsequent heparin dosing based on ACT results. Finally sharp dissection was used to dissect free the external carotid artery and a right angle used to place a vessel loop. The vessel then occluded first the internal followed by the common the external. A longitudinal arteriotomy was created with 11 blade and extended with Helms scissors onto the internal carotid artery beyond the plaque. A 10 Sen[place]e [place] shunt was then placed first distally in the internal carotid artery allowed to backbleed before placing proximally in the common carotid artery. The shunt was interrogated Doppler and found to be patent with low resistance signal. We then performed her endarterectomy with a freer elevator with satisfactory endpoint distally on the internal carotid artery of the external carotid artery. The lumen was flushed with heparinized saline to clear debris in the distal endpoint tacked with 7-0 Prolene interrupted suture. A bovine pericardial patch was then secured in position using a 6-0 Prolene in a running fashion. Prior to coming the suture line the shunt was withdrawn and the vessel was backbled. After completing the suture line the internal carotid artery was allowed to backbleed to the bifurcation and then reoccluded at the origin. Clamps were then removed from the external and the common carotid artery allowing 10 heartbeats of antegrade flow to flush into the external carotid artery before reestablishing flow into the internal carotid artery. After clamps released satisfactory hemostasis was observed and the vessels were interrogated with Doppler. The internal carotid artery was patent with low resistance signal in the external carotid artery patent with appropriate signal. Heparin was reversed with protamine and the incision inspected for hemostasis. Vistaseal topical hemostatic was applied and 19 Senegalese channel ИВАН placed via (more content not included)... Normal [facility] Type AND Screenon 09-17-2024 ABO and Rh group Nom (Bld) Blood group B Rh(D) positive Normal [facility] Comment on above: Order Comment: S Performed By: #### B , [id number] ####[facility] [id number] [facility]. [place], [place], [address] Cardiac Cath Diagnosticon Cardiac Cath Diagnostic [facility] Imaging Services [address] [place] [address] Cardiac Cath Diagnostic MR#: [id number] Acct: [id number] Name: RAMONITA EL Rep #: [id number] : 1940 84 From: Kp Puentes MD PCP: RAYO Pillai Status:DEP [facility] Patient Name: RAMONITA EL Study Date: 08/25/2024 Performing: Kp Puentes MD Ht: 68 inches 172.72 cm : 1940 Wt: 152.01 lbs 68.95 kg Age: 84 Gender: male BSA: 1.82 PROCEDURE(S) PERFORMED [id number]-([id number])[facility]ICAL PROFILE AND INDICATIONS Indications: Suspected CAD [...] Dictated: 08/25/24 1058 Date Transcribed: 08/25/24 1418 Instructional Technologist: CO Signed [facility] MR/Iva 09-05-2024 MR/FILIPE [facility] Medical Records Department [address] [place] [address] PAT - Anesthesia 09/05/24 1301 MR#: [id number] Acct: [id number] Name: RAMONITA EL Rep #: [id number] : 1940 84 From: Aditya Diaz MD PCP: RAYO Pillai Status:PRE IN Y Race: C Location: [facility] Pre-Assessment Diagnosis/Proposed Procedure Planned Operative Procedure(s): (R) Right Carotid Endarterectomy Anesthesia History Anesthesia History - warehouse selector: Anesthesia History - warehouse selector Hx Hospitalization No 09/05/24 11:02 Any Problems [...] take am of surgery PONV PONV - warehouse selector: PONV - warehouse selector Female No 09/05/24 11:02 HX of Motion [...] 08/25/24 09:40 Respiratory Assessment Respiratory Assessment - warehouse selector: Respiratory Tract Infection Hx - warehouse selector Hx Respiratory Tract Infection No 09/05/24 11:02 STOP Sleep Apnea STOP Sleep Apnea - warehouse selector: STOP Sleep Apnea - warehouse selector Hx Hypertension Yes 09/05/24 11:02 Hx Sleep [...] Tobacco Use History Tobacco Use History - warehouse selector: Tobacco Use History - warehouse selector Tobacco Use Smoking Status Heavy Smoker (>10/day) 09/05/24 11:02 Hx Tobacco Use No 09/05/24 11:02 Years Smoking 60 09/05/24 11:02 Packs Smoked per Day 1 09/05/24 11:02 Smoking Cessation Date was within the last 15 years Hx Smoking Cessation Date Hx Smoking Cessation No 09/05/24 11:02 Counseling Hematologic Medial History 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 Specify any problems Hx of Preganancy in last 3 N/A 09/05/24 11:02 Months Nurse Filling Out Transfusion JZOLLSALAZAR 09/05/24 11:02 Questions: Date: 09/05/24 09/05/24 11:02 Time: 11:02 09/05/24 11:02 Patient unable to answer at this time (ie. 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: /Reproductive Hx- warehouse selector Hx Now No 09/05/24 11:02 Gestational Age (in weeks): EDC: Hx Hx Para Hx Section SAB No 09/05/24 11:02 [facility] Medical History (Updated 09/05/24 @ 11:13 by [...] mg tab (more content not included)... Normal [facility] MR/BMSKeke 09-03-2024 MR/BMS.JOSÉ ANTONIO [facility] Vascular Surgery [address] [place] [address] OFFICE VISIT Date of Service: 09/03/24 MR#: [id number] Acct: [id number] Name: RAMONITA EL Rep #: [id number] : 1940 Provider: Dr. Mello Demarco MD Age/Sex: 84/M Location: [facility] Status: Signed Intake Vital Signs 08/25/24 09:40 [...] mg tablet,delayed 20 mg PO DAILY GERD 11/09/2008/07 History release (Protonix) acetaminophen 500 mg tablet [...] No hemor (more content not included)... Normal [facility] Echocardiogram study reportO rdered By: Kp Puentes on 08-17-2024 Study report [facility] Cardiovascular Services [address] [place] [address] Echo Complete 08/15/24 0954 MR#: [id number] Acct: [id number] Name: RAMONITA EL Rep #:[id number] : 1940 84 From: Kp Self Attending Dr: Dr. Kp Puentes MD S tatus: REG CLI Ordering Dr: Kp Puentes MD Date: 12/30 Location: [facility] Sex: M C Admitted: Reason [...] Dr. Kp Puentes MD ~ Date Dictated: 08/15/24 0954 Date Transcribed: 08/17/24 1618 Instructional Technologist: Signed [facility] Work Phone: Anion gap in Serum or Plasma Ordered By: Mello Demarco on 08-15-2024 Anion gap [Moles/Vol] 11 mmol/L 5-15 [facility] BUN/creatinine ratioOrdered By: Mello Demarco on 08-15-2024 Urea nitrogen/Creatinine [Mass ratio] 22.8 mg/mg High 10-20 [facility] Basic Metabolic Profile (BMP )on 08-15-2024 BUN/CRE 22.8 RATIO High - [facility] Comment on above: Performed By: #### L 9100.0100 #### [facility] [address] [place], [address] Calcium [Mass/Vol] 9.4 mg/dL Normal 7.6-11.0 [facility] Comment on above: Performed By: #### L 9100.0100 #### [facility] [address] [place], [address] Chloride [Moles/Vol] 101 mmol/L Normal 98-108 [facility] Comment on above: Performed By: #### L 9100.0100 #### [facility] [address] [place], [address] CO2 [Moles/Vol] 23.8 mmol/L Normal 21.0-32.0 [facility] Comment on above: Performed By: #### L 9100.0100 #### [facility] [address] [place], [address] Creatinine [Mass/Vol] 0.65 mg/dL Low 0.70-1.20 [facility] Comment on above: Performed By: #### L 9100.0100 #### [facility] [address] [place], [address] GAP 11 Normal 5-15 [facility] Comment on above: Performed By: #### L 00.0100 #### [facility] [address] [place], [address] GFR/1.73 sq M.predicted among non-blacks MDRD (S/P/Bld) [Vol rate/Area] 94 mL/min/{1.73_m2} Normal >60 [facility] Comment on above: Result Comment: mL/m in/1.73m2 CKD-EPI Creatinine Equation (2020) Performed By: #### L 9099.0100 #### [facility] [address] [place], [address] Glucose [Mass/Vol] 99 mg/dL Normal 70-99 [facility] Comment on above: Performed By: #### L 9099.0100 #### [facility] [address] [place], [address] Potassium [Moles/Vol] 4.1 mmol/L Normal 3.3-5.1 [facility] Comment on above: Performed By: #### L 00.0100 #### [facility] [address] [place], [address] Sodium [Moles/Vol] 136 mmol/L Normal 133-145 [facility] Comment on above: Performed By: #### L 9099.0100 #### [facility] [address] [place], [address] Urea nitrogen [Mass/Vol] 15 mg/dL Normal 4-19 [facility] Comment on above: Performed By: #### L 9099.0100 #### [facility] [address] [place], [address] CBC-Complete Blood Cnt No Di ffon 08-15-2024 Erythrocyte distribution width (RBC) [Ratio] 13.0 % Normal 11.6-14.6 [facility] Comment on above: Performed By: #### L 9099.0100 #### [facility] [address] [place], [address] Hematocrit (Bld) [Volume fraction] 47.1 % Normal 40-54 [facility] Comment on above: Performed By: #### L 9100.0100 #### [facility] [address] [place], [address] Hemoglobin (Bld) [Mass/Vol] 16.1 g/dL Normal 13.0-16.5 [facility] Comment on above: Performed By: #### L 9100.0100 #### [facility] [address] [place], [address] MCH (RBC) [Entitic mass] 31.5 pg Normal 27.0-32.0 [facility] Comment on above: Performed By: #### L 9100.0100 #### [facility] [address] [place], [address] MCHC (RBC) [Mass/Vol] 34.2 g/dL Normal 32-36 [facility] Comment on above: Performed By: #### L 9100.0100 #### [facility] [address] [place], [address] MCV (RBC) [Entitic vol] 92.2 fL Normal 80-94 [facility] Comment on above: Performed By: #### L 9100.0100 #### [facility] [address] [place], [address] Platelet mean volume (Bld) [Entitic vol] 10.8 fL Normal 6.2-12.0 [facility] Comment on above: Performed By: #### L 9100.0100 #### [facility] [address] [place], [address] Platelets (Bld) [#/Vol] 213 10*3/uL Normal 150-450 [facility] Comment on above: Performed By: #### L 9100.0100 #### [facility] [address] [place], [address] RBC (Bld) [#/Vol] 5.11 10*6/uL Normal 4.6-6.2 [facility] Comment on above: Performed By: #### L 9100.0100 #### [facility] [address] [place], [address] RDW SD 43.6 fl Normal 35.1-43.9 [facility] Comment on above: Performed By: #### L 00.0100 #### [facility] [address] [place], [address] WBC (Bld) [#/Vol] 12.0 10*3/uL High 4.4-11.0 [facility] Comment on above: Performed By: #### L 9099.0100 #### [facility] [address] [place], [address] Carbon dioxide, total [Moles /volume] in Central venous bloodOrdered By: Mello Demarco on 08-15-2024 CO2 [Moles/Vol] 23.8 mmol/L 21.0-32.0 [facility] Cardiovascular stress test r eportOrdered By: Charmaine Medina on 08-15-2024 Study report [facility] Cardiovascular Services [address] [place] [address] MR#: [id number] Acct: [id number] Name: RAMONITA EL Rep #: [id number] : 1940 84 From: Charmaine Medina MD [...] Dictated: 08/15/24 1001 Date Transcribed: 08/15/24 1001 Instructional Technologist: AJ Signed [facility] Chloride assayOrdered By: Guille Demarco on 08-15-2024 Chloride [Moles/Vol] 101 mmol/L 98-108 [facility] Echo Completeon 08-15-2024 Echo Complete [facility] Cardiovascular Services [address] [place] [address] Echo Complete 08/15/24 0954 MR#: [id number] Acct: [id number] Name: RAMONITA EL Rep #: [id number] : 1940 84 From: Kp Puentes MD Attending Dr: Dr. Kp Puentes MD Status: REG C LI Ordering Dr: Kp Puentes MD Date: 08/15/24 [facility] Sex[facility] M C Admitted: Reason For [...] sec Doppler Measurements Calculations MV E max lasohnda: 68.9 cm/sec Lat Peak E' Lashonda: 9.6 [...] Performed By: Lisa Olmedo and Student 08/17/24 8328 Date Kp Puentes MD CC: RAYO Baron; Dr. Kp Puentes MD Date Dictated: 08/15/2454 Date Transcribed: 08/17/241617 Instructional Technologist: Signed Rasheed [facility] Erythrocyte distribution wid th ratioOrdered By: Mello Demarco on 08-15-2024 Erythrocyte distribution width (RBC) [Ratio] 13.0 % 11.6-14.6 [facility] Erythrocyte distribution wid th standard deviationOrdered By: Mello Demarco on 08-15-2024 Erythrocyte distribution width (RBC) [Ratio] 43.6 fl 35.1-43.9 [facility] Glomerular filtration rate ( GFR) estimation/1.73 sq m using serum, plasma, or whole bOrdered By: Mello Demarco on 08-15-2024 GFR/1.73 sq M.predicted among non-blacks MDRD (S/P/Bld) [Vol rate/Area] 94 mL/min/{1.73_m2} >60 [facility] Comment on above: mL/min/1.73m2 CKD-EP I Creatinine Equation (2020) Hematocrit Auto (Bld) [Volum e fraction]Ordered By: Mello Demarco on 08-15-2024 Hematocrit (Bld) [Volume fraction] 47.1 % 40-54 [facility] Hemoglobin measurementOrdere d By: Mello Demarco on 08-15-2024 Hemoglobin (Bld) [Mass/Vol] 16.1 g/dL 13.0-16.5 [facility] MCV (mean corpuscular volume ) determinationOrdered By: Mello Demarco on 08-15-2024 MCV (RBC) [Entitic vol] 92.2 fL 80-94 [facility] MR/PAT.ANEon 08-15-2024 MR/PAT.ANE [facility] Medical Records Department [address] [place] [address] PAT - Anesthesia 08/15/24 1433 MR#: [id number] Acct: [id number] Name: RAMONITA EL Rep #: [id number] : 1940 84 From: Owen Davidson MD PCP: RAYO Pillai Status:PRE IN Y Race: C Location: [facility] Pre-Assessment Diagnosis/Proposed Procedure Planned Operative Procedure(s): RT CAROTID ENDARTERECTOMY Anesthesia History 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 History - warehouse selector: Anesthesia History - warehouse selector Hx Hospitalization No 08/05/24 13:09 Any Problems [...] take am of surgery PONV PONV - warehouse selector: PONV - warehouse selector Female No 08/05/24 13:09 HX of Motion [...] 08/04/24 13:45 Respiratory Assessment Respiratory Assessment - warehouse selector: Respiratory Tract Infection Hx - warehouse selector Hx Respiratory Tract Infection No 08/05/24 13:09 STOP Sleep Apnea STOP Sleep Apnea - warehouse selector: STOP Sleep Apnea - warehouse selector Hx Hypertension Yes 08/05/24 13:09 Hx Sleep [...] Tobacco Use History Tobacco Use History - warehouse selector: Tobacco Use History - warehouse selector Tobacco Use Smoking Status Current every day smoker 08/05/24 13:09 Hx Tobacco Use No 08/05/24 13:09 Years Smoking Packs Smoked per Day Smoking Cessation Date was within the last 15 years Hx Smoking Cessation Date Hx Smoking Cessation Counseling Hematologic Medial History Hematologic Hx - warehouse selector: 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 Specify any problems Hx of Preganancy in last 3 N/A 08/05/24 13:09 Months Nurse Filling Out Transfusion [facility] 08/05/24 13:09 Questions: Date: 08/05/24 08/05/24 13:09 Time: 13:22 08/05/24 13:09 Patient unable to answer at this time (ie. 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: /Reproductive Hx- warehouse selector Hx Now No 08/05/24 13:09 Gestational Age (in weeks): EDC: Hx Hx Para Hx Section SAB No 08/05/24 13:09 Active Medications Active Medications: Current Medications Generic Name Dose Route Start Last Admin Trade Name Freq PRN Reason Stop Dose Admin Clindamycin Phosphate 900 mg in 50 mls @ 75 mls/hr 08/18/24 07:30 Cleocin IV 08/18/24 08:09 INTRAOP ONE [facility] Medical History (Updated 08/06/24 @ 00:01 by [...] with claudicatio (more content not included)... Normal [facility] Mean corpuscular hemoglobin (MCH) determinationOrdered By: Mello Demarco on 08-15-2024 MCH (RBC) [Entitic mass] 31.5 pg 27.0-32.0 [facility] Mean corpuscular hemoglobin concentration (MCHC) determinationOrdered By: Mello Demarco on 08-15-2024 MCHC (RBC) [Mass/Vol] 34.2 g/dL 32-36 [facility] Mean platelet volume determi nationOrdered By: Mello Demarco on 08-15-2024 Platelet mean volume (Bld) [Entitic vol] 10.8 fL 6.2-12.0 [facility] Platelet countOrdered By: Guille Demarco on 08-15-2024 Platelets (Bld) [#/Vol] 213 10*3/uL 150-450 [facility] Potassium measurement (mass/ volume)Ordered By: Mello Demarco on 08-15-2024 Potassium (Unsp spec) [Mass/Vol] 4.1 mmol/L 3.3-5.1 [facility] RBC Auto (Bld) [#/Vol]Ordere d By: Mello Demarco on 08-15-2024 RBC (Bld) [#/Vol] 5.11 10*6/uL 4.6-6.2 [facility] Serum creatinine measurement (mass/volume)Ordered By: Mello Demarco on 08-15-2024 Creatinine [Mass/Vol] 0.65 mg/dL Low 0.70-1.20 [facility] Serum glucose measurement (m ass/volume)Ordered By: Mello Demarco on 08-15-2024 Glucose [Mass/Vol] 99 mg/dL 70-99 [facility] Serum or plasma calcium heather urement (mass/volume)Ordered By: Mello Demarco on 08-15-2024 Calcium [Mass/Vol] 9.4 mg/dL 7.6-11.0 [facility] Serum or plasma urea nitroge n measurement (mass/volume)Ordered By: Mello Demarco on 08-15-2024 Urea nitrogen [Mass/Vol] 15 mg/dL 4-19 [facility] Sodium levelOrdered By: Mellorachael Demarco on 08-15-2024 Sodium [Moles/Vol] 136 mmol/L 133-145 [facility] Stress Reporton 08-15-2024 Stress Report [facility] Cardiovascular Services [address] [place] [address] MR#: [id number] Acct: [id number] Name: RAMONITA EL Rep #: [id number] : 1940 84 From: Charmaine Medina MD [...] MD; Dr. Mello Demarco MD Date Dictated: 08/15/24 100 Date Transcribed: 08/15/241000 Instructional Technologist: JEANIE Signed Normal [facility] Type AND Screen - PAT ONLYon 08-15-2024 Ab SCREEN GEL TNP Normal [facility] Comment on above: Order Comment: Surge ry Date: 08/18/24Reason for Laboratory Test [id number] ENARTERECTOMY Result Comment: AMENDED REPORT 08/15/24 1129: Antibody Screen previously reported as: POSITIVE Performed By: #### L 9100.0100 #### [facility] Laboratory [address] [place], [address] White blood cell (WBC) count Ordered By: Mello Demarco on 08-15-2024 WBC (Bld) [#/Vol] 12.0 10*3/uL High 4.4-11.0 [facility] CNPErendira 08-05-2024 [facility] Telephone (LESLIEWS) -- RAMONITA EL ([id number]) 1940 M NFR Date Time Provider Department 08/05/24 KARLA BARON During your visit today, we recorded the following information about you: Ching MataYEIMI 08/05/2024 2:17 PM Signed Lolly from [facility] calling she had called the [...] if he needs something for pain can VICE CHAIR advise, she said he lives alone and needs some guidance on his medications. Karla Baron APRN.CNP 08/05/2024 3:14 PM Signed Agree that he should only be taking no more than 8 tylenol a day. If the pain is related to the foot, then that really needs to be addressed by the manager web application that did the procedure. He is also following with pain management Dr Fitzgerald and being prescribed gabapentin and tramadol. Heavenly Valdes LPN 08/05/2024 3:59 PM Signed Unable to return call to Lolly at [facility] d/t no number listed. Phoned [...] [Z95.5] 0 (more content not included)... Normal [facility] Orthopedic Visit Reporton Orthopedic Visit Report [facility] [address] [place] [address] OFFICE VISIT Date of Service: 08/04/24 MR#: [id number] Acct: [id number] Name: RAMONITA EL Rep #: [id number] : 1940 Provider: Dr. Akiar araujo MD Age/Sex: 84/M Location: [facility] Status: Signed with Addenda ADDENDUM by NATE [...] Performing Provider: Akira Negrete MD Performing Location: [facility] Administered by: Akira Negrete MD on 08/04/24 14:30 Dose Route Admin Location Dispensed Lot Number Expiration Date [facility] Tunde ufacturer 40 mg intra-articular Left knee 1 mL [id number] 09/05/26 5198-6819-15 [facility] Date cc: * Signed [...] No sig (more content not included)... Normal [facility] Cardiology Visit Reporton Cardiology Visit Report [facility] [address] [place] [address] OFFICE VISIT Date of Service: 07/30/24 MR#: [id number] Acct: [id number] Name: RAMONITA EL Rep #: [id number] : 1940 Provider: Dr. Kp Puentes MD Age/Sex: 84/M Location: [facility] Status: Signed HPI HPI History of [...] Monitor Intake Visit Reasons: Surgical Clearance/Re-est (Nilam) Contract Engineer Required: No Accompanied by: Self Is patient [...] normal Nose (more content not included)... Normal [facility] Emergency Department Summary on 07-29-2024 Emergency Department Summary [facility] Medical Records Department [address] [place] [address] Emergency Department Summary 07/29/24 MR#: [id number] Acct: [id number] Name: RAMONITA EL Rep #: [id number] : 1940 84 From: Nilesh Mccullough MD [...] or hospitalized or had any recent surgeries. [facility] Medical History Stenosis of right [...] and a (more content not included)... Normal [facility] Knee 4 or More Viewson 07-29 Knee 4 or More Views [facility] Imaging Services [address] [place] [address] Knee 4 or More Views MR#: [id number] Acct: [id number] Name: RAMONITA EL Rep #: [id number] : 1940 M 84 From: Jabari Alexandra MD PCP: RAYO Pillai Status: PRE ER Study: Knee 4 or More Views Date of Exam: 07/29/24 Exam# [id number] Ordering Dr: Nilesh Mccullough MD PROCEDURE: KNEE [...] visible joint effusion. Reading Location: [facility] CC: VICE CHAIR-Del Baron; Dr. Nilesh Mccullough MD Instructional Technologist: Signed Normal [facility] Lumbar Spine 2 or 3 Viewson 07-24-2024 Lumbar Spine 2 or 3 Views [facility] Imaging Services [address] [place] [address] Lumbar Spine 2 or 3 Views MR#: [id number] Acct: [id number] Name: RAMONITA EL Rep #: [id number] : 1940 M 84 From: Jesus chandra MD PCP: RAYO Pillai Status: REG CLI Study: Lumbar Spine 2 or 3 Views Date of Exam: Exam# [id number] Ordering Dr: Chandni Fitzgerald MD PROCEDURE: LUMBAR [...] lordosis. S shaped degenerative scoliosis. Reading Location: [place] CC: RAYO Baron; Dr. Chandni Fitzgerald MD Instructional Technologist: Signed Normal [facility] MR/BMS.BVSon 07-17-2024 MR/BMS.BVS [facility] Vascular Surgery [address] [place] [address] OFFICE VISIT Date of Service: 07/17/24 MR#: [id number] Acct: [id number] Name: RAMONITA EL Rep #: [id number] : 1940 Provider: Dr. Mello Demarco MD Age/Sex: 84/M Location: [facility] Status: Signed Intake Vital Signs 05/18/24 05:24 [...] appearing, co (more content not included)... Normal [facility] CTA Head AND Neck W/ Contras ton 07-03-2024 CTA Head AND Neck W/ Contrast [facility] Imaging Services [address] [place] [address] CTA Head AND Neck W/ Contrast MR#: [id number] Acct: [id number] Name: RAMONITA EL Rep #: [id number] : 1940 M 84 From: Parth priest MD PCP: RAYO Pillai Status: REG CLI Study: CTA Head AND Neck W/ Contrast Date of Exam: Exam# [id number] Ordering Dr: Sammie Strong PROCEDURE: CTA HEAD [...] Calcific plaques. LEFT Vertebral: Calcific plaques. Anatomy: [place] of [place] anatomy is normal. Aneurysm or [...] involving both internal carotid arteries. Reading Location: [id number] CC: RAYO Baron; KRISTI Garza Instructional Technologist: Signed Normal [facility] CNOVon 06-24-2024 CNOV Office Visit (FAMPWS ) -- RAMONITA EL ([id number]) 1940 M [facility] Date Time Provider Department 06/24/24 11:00 AM KARLA BARON During your visit today, we recorded the following information about you: Pulse Respiration Blood pressure 55/minute 16/minute 148/62 Karla Baron APRN.[facility] 06/24/2024 11:38 AM Signed - Continue [...] have new or worsening symptoms. Karla Baron APRN.FURNITURE ASSEMBLER 06/24/2024 10:08 PM Signed This is a [...] gesture Radius fracture 06/21/2013 See scanned documents [facility] Tobacco abuse 05/22/2013 Urinary calculus, [...] 1 tab (more content not included)... Normal [facility] Arterial study reportOrdered By: Mello Demarco on 06-05-2024 Noninvasive arteriosclerosis study report [facility] Cardiovascular Services [address] [place] [address] Lower Ext Art Exam w/o Exercis 06/05/24 1341 MR#: [id number] Acct: [id number] Name: RAMONITA EL Rep #:[id number] : 1940 84 From: Mello Self Attending Dr: KRISTI Garza Stat us: [facility] Ordering Dr: Sammie Strong Date: [facility] Sex: M C Admitted: Reason For [...] Ordering Physician: Sammie Strong Referring Physician: Karla Mccoy Performed By: Chrissy Albrecht RVT 06/05/24 1723 Date _ Mello Demarco MD CC: RAYO Baron; KRISTI Garza ~ Date Dictated: 06/05/24 1341 Date Transcribed: 06/05/241722 Instructional Technologist: Signed [facility] Work Phone: Lower Ext Art Exam w/o Exerc xaing 06-05-2024 Lower Ext Art Exam w/o Exercis [facility] Cardiovascular Services [address] [facility] [place] [address] Lower Ext Art Exam w/o Exercis 06/05/24 1341 MR#: [id number] Acct: [id number] Name: RAMONITA EL Rep #: [id number] : 1940 84 From: Mello Demarco MD Attending Dr: KRISTI Garza Status: REG CLI Ordering Dr: Sammie Strong Date: 06/05/24 [facility] Sex: M C Admitted: Reason For [...] Ordering Physician: Sammie Strong Referring Physician: Karla Mccoy Performed By: Chrissy Albrecht RVT 06/05/24 1723 Date Mello Demarco MD CC: RAYO Baron; KRISTI Garza Date Dictated: 06/05/24 1341 Date Transcribed: 06/05/24 172 Instructional Technologist: Signed [facility] MR/BMSKeke 06-03-2024 MR/BMS.JOSÉ ANTONIO [facility] Vascular Surgery [facility] [address] [place] [address] OFFICE VISIT Date of Service: 06/03/24 MR#: [id number] Acct: [id number] Name: RAMONITA EL Rep #: [id number] : 1940 Provider: KRISTI Garza Age/Sex: 84/M Location: [facility] Status: Signed Intake Vital Signs 05/18/24 05:24 06/03/24 11:05 Height 5 ft 8 in Weight: 162 lb BP 177/62 H Blood Pressure Location Lt brachial Position Sitting Respiration 16 Pulse 68 Pulse Source Monitor Temp 98.4 F Temp Source Temporal Pulse Oximetry (%) 94 Oxygen Delivery Method room air Intake Visit Reasons: Carotid Artery Stenosis Chief Complaint: Establish Care Contract Engineer Required: No Is patient in pain?: Yes [...] He had recent carotid duplex performed at [facility] which demonstrated R ICA stenosis >70% with [...] of his LLE by Dr. Kenny at [facility] though is uncertain what kind of [...] abnormal gait, (more content not included)... Normal [facility] CNPNon 05-28-2024 CNPN Telephone (FAMPWS) -- RAMONITA EL ([id number]) 1940 M NFR Date Time Provider Department 05/28/24 KARLA BARON During your visit today, we recorded the following information about you: Sandy Cardoza RN 05/28/2024 2:18 PM Signed Pt calling in and states he saw Karla Baron yesterday and she sent a referral to [facility] Vascular Surgery while he was in the office. He states he spoke with them and they did not receive any referral or paperwork. Called and spoke with scheduling for vascular surgery and they state they did not receive anything. Referral order, carotid artery ultrasound results and Karla's office note faxed to [facility] vascular surgery at [phone]. Sandy Cardoza RN 05/28/2024 2:55 PM Signed Called to confirm that fax went through. Per Smiley in scheduling, she received the paperwork and faxed it to [facility]. She gave their phone number of [phone]. Called and had to leave a ms. stating pt's name and and the need [...] Reason for Visit: Consult [502] Cmt: to [facility] Vascular Surgery Prescriptions as of [...] [K86.1] 10/10/2022 (more content not included)... Normal [facility] CNOVon 05-27-2024 CNOV Office Visit (FAMPWS ) -- RAMONITA EL ([id number]) 1940 M NFR Date Time Provider Department 05/27/24 11:00 AM KARLA BARON During your visit today, we recorded the following information about you: Pulse Respiration Blood pressure Weight 64/minute 16/minute 138/64 73.5 kg Karla Baron APRN.FURNITURE ASSEMBLER 05/27/2024 11:48 AM Signed Gabapentin 100 mg [...] A referral to a vascular specialist at [facility] has been faxed along with your [...] (e.g., Dr. Fitzgerald or Dr[facility]). Karla Baron, STACY.FURNITURE ASSEMBLER 05/27/2024 5:23 PM Signed This is a [...] more they could do. - Has seen invasive cardiovascular technologist in the past but is reluctant to [...] Most recent visit was last week at [facility] for a medication lodged in the [...] gesture Radius fracture 06/21/2013 See scanned documents [facility] Tobacco abuse 05/22/2013 Urinary calculus, unspecified 01/05 Renal stone right side; 3 episodes with stones altogether with extraction in 196 PAST SURGICAL HISTORY Procedure Laterality Date ATHERECTOMY, FEMORAL-POPLITEAL 09/28/2009 right COLONOSCOPY 12/26/2023 COLONOSCOPY FLX DX W/COLLJ SPEC WHEN PFRMD 06/21/2015 Colonoscopy CORONARY ENDARTERCOMY OPEN ANY METHOD 08/10/2006 Angioplasty with stent ECHOCARDIOGRAM 11/24/2020 11/25/20 echo (more content not included)... Normal [facility] 12 Lead EKGon 05-18-2024 12 Lead EKG [facility] Cardiovascular Services [address] [place] [address] 12 Lead EKG 05/18/24 0536 MR#: [id number] Acct: [id number] Name: RAMONITA EL Rep #: [id number] : 1940 84 From: Max Morales MD [...] 11:22, Premature ventricular complexes are now Present [place] interval has increased Confirmed by Max Morales ([id number]), continuity editor KAY SLOAN ([id number]) on 05/21/2024 10:05:57 AM Referred By: Confirmed By: Max Morales 05/21/24 1005 Date Max Morales MD CC: RAYO Baron; Dr. Lucien Matthews, DO Signed Normal [facility] Absolute lymphocyte countOrd ered By: Lucien Matthews on 05-18-2024 Lymphocytes Auto (Unsp spec) [#/Vol] 1.33 10*3/uL 0.83-4.51 [facility] Absolute neutrophil countOrd ered By: Lucien Matthews on 05-18-2024 Neutrophils (Bld) [#/Vol] 7.0 10*3/uL 2.0-7.7 [facility] Anion gap in Serum or Plasma Ordered By: Lucien Matthews on 05-18-2024 Anion gap [Moles/Vol] 16 mmol/L High 5-15 [facility] Automated lymphocyte count a s percentage of total leukocytesOrdered By: Lucien Matthews on 05-18-2024 Lymphocytes/100 WBC Auto (Unsp spec) 14.4 % Low 19-41 [facility] BUN/creatinine ratioOrdered By: Lucien Matthews on 05-18-2024 Urea nitrogen/Creatinine [Mass ratio] 16.6 mg/mg 10-20 [facility] Basic Metabolic Profile (BMP )on 05-18-2024 BUN/CRE 16.6 RATIO Normal -20 [facility] Comment on above: Performed By: #### L 100.0100, L500.2500 #### [facility] [address] [place], [address] Calcium [Mass/Vol] 9.5 mg/dL Normal 7.6-11.0 [facility] Comment on above: Performed By: #### L 100.0100, L500.2500 #### [facility] [address] [place], [address] Chloride [Moles/Vol] 103 mmol/L Normal 98-108 [facility] Comment on above: Performed By: #### L 100.0100, L500.2500 #### [facility] [address] [place], [address] CO2 [Moles/Vol] 18.4 mmol/L Low 21.0-32.0 [facility] Comment on above: Performed By: #### L 100.0100, L500.2500 #### [facility] [address] [place], [address] Creatinine [Mass/Vol] 0.81 mg/dL Normal 0.70-1.20 [facility] Comment on above: Performed By: #### L 100.0100, L500.2500 #### [facility] [address] [place], [address] ECRCL 66.85 ml/min Normal 50-250 [facility] Comment on above: Performed By: #### L 100.0100, L500.2500 #### [facility] [address] [place], [address] GAP 16 High 5-15 [facility] Comment on above: Performed By: #### L 100.0100, L500.2500 #### [facility] [address] [place], [address] GFR/1.73 sq M.predicted among non-blacks MDRD (S/P/Bld) [Vol rate/Area] 87 mL/min/{1.73_m2} Normal >60 [facility] Comment on above: Result Comment: mL/m in/1.73m2 CKD-EPI Creatinine Equation (2020) Performed By: #### L 100.0100, L500.2500 #### [facility] [address] [place], [address] Glucose [Mass/Vol] 131 mg/dL High 70-99 [facility] Comment on above: Performed By: #### L 100.0100, L500.2500 #### [facility] [address] [place], [address] Potassium [Moles/Vol] 3.8 mmol/L Normal 3.3-5.1 [facility] Comment on above: Performed By: #### L 100.0100, L500.2500 #### [facility] [address], [address] Sodium [Moles/Vol] 138 mmol/L Normal 133-145 [facility] Comment on above: Performed By: #### L 100.0100, L500.2500 #### [facility] [address] [place], [address] Urea nitrogen [Mass/Vol] 14 mg/dL Normal 4-19 [facility] Comment on above: Performed By: #### L 100.0100, L500.2500 #### [facility] [address] [place], [address] Basophil percentageOrdered B y: Lucien Matthews on 05-18-2024 Basophils/100 WBC (Bld) 0.8 % 0-1 [facility] CBC W/Diff, Automatedon 05-06-2024 Absolute Lymph 1.33 X10 3/uL Normal 0.83-4.51 [facility] Comment on above: Performed By: #### L 100.0100, L500.2500 #### [facility] [address] [place], [address] Absolute Neut 7.0 X10 3/uL Normal 2.0-7.7 [facility] Comment on above: Performed By: #### L 100.0100, L500.2500 #### [facility] [address] [place], [address] Basophils/100 WBC (Bld) 0.8 % Normal 0-1 [facility] Comment on above: Performed By: #### L 100.0100, L500.2500 #### [facility] [address], [address] Eosinophils/100 WBC (Bld) 0.8 % Normal 0-5 [facility] Comment on above: Performed By: #### L 100.0100, L500.2500 #### [facility] [address] [place], [address] Erythrocyte distribution width (RBC) [Ratio] 13.2 % Normal 11.6-14.6 [facility] Comment on above: Performed By: #### L 100.0100, L500.2500 #### [facility] [address] [place], [address] Hematocrit (Bld) [Volume fraction] 44.9 % Normal 40-54 [facility] Comment on above: Performed By: #### L 100.0100, L500.2500 #### [facility] [address] [place], [address] Hemoglobin (Bld) [Mass/Vol] 16.0 g/dL Normal 13.0-16.5 [facility] Comment on above: Performed By: #### L 100.0100, L500.2500 #### [facility] [address] [place], [address] IG% 0.300 Normal 0.0-0.9 [facility] Comment on above: Result Comment: IG% - Immature Granulocytes (promyelocytes, myelocytes and metamyelocytes) > 1% indicates that a LEFT SHIFT is Present. Performed By: #### L 100.0100, L500.2500 #### [facility] [address] [place], [address] Lymphocytes/100 WBC (Bld) 14.4 % Low 19-41 [facility] Comment on above: Performed By: #### L 100.0100, L500.2500 #### [facility] [address] [place], [address] MCH (RBC) [Entitic mass] 31.9 pg Normal 27.0-32.0 [facility] Comment on above: Performed By: #### L 100.0100, L500.2500 #### [facility] [address] [place], [address] MCHC (RBC) [Mass/Vol] 35.6 g/dL Normal 32-36 [facility] Comment on above: Performed By: #### L 100.0100, L500.2500 #### [facility] [address] [place], [address] MCV (RBC) [Entitic vol] 89.4 fL Normal 80-94 [facility] Comment on above: Performed By: #### L 100.0100, L500.2500 #### [facility] [address] [place], [address] Monocytes/100 WBC (Bld) 8.5 % Normal 0-10 [facility] Comment on above: Performed By: #### L 100.0100, L500.2500 #### [facility] [address] [place], [address] Neutrophils/100 WBC (Bld) 75.2 % High 47-70 [facility] Comment on above: Performed By: #### L 100.0100, L500.2500 #### [facility] [address] [place], [address] Nucleated RBC (Bld) [#/Vol] 0 10*3/uL Normal 0-5 [facility] Comment on above: Performed By: #### L 100.0100, L500.2500 #### [facility] [address] [place], [address] Platelet mean volume (Bld) [Entitic vol] 10.3 fL Normal 6.2-12.0 [facility] Comment on above: Performed By: #### L 100.0100, L500.2500 #### [facility] [address] [place], [address] Platelets (Bld) [#/Vol] 269 10*3/uL Normal 150-450 [facility] Comment on above: Performed By: #### L 100.0100, L500.2500 #### [facility] [address] [place], [address] RBC (Bld) [#/Vol] 5.02 10*6/uL Normal 4.6-6.2 [facility] Comment on above: Performed By: #### L 100.0100, L500.2500 #### [facility] [address] [place], [address] RDW SD 43.2 fl Normal 35.1-43.9 [facility] Comment on above: Performed By: #### L 100.0100, L500.2500 #### [facility] [address] [place], [address] WBC (Bld) [#/Vol] 9.3 10*3/uL Normal 4.4-11.0 [facility] Comment on above: Performed By: #### L 100.0100, L500.2500 #### [facility] [address] [place], [address] Carbon dioxide, total [Moles /volume] in Central venous bloodOrdered By: Lucien Matthews on 05-18-2024 CO2 [Moles/Vol] 18.4 mmol/L Low 21.0-32.0 [facility] Chest 1 View (Portable)on Chest 1 View (Portable) [facility] Imaging Services [address] [place] [address] Chest 1 View (Portable) MR#: [id number] Acct: [id number] Name: SIENNARAMONITA Brynn Rep #: [id number] : 1940 M 84 From: Max Alvarez i, MD PCP: Karla Baron, VICE CHAIR-C Status: REG ER Study: Chest 1 View (Portable) Date of Exam: 05/18/24 Exam# [id number] Ordering Dr: Lucien Matthews DO PROCEDURE: CHEST [...] Pneumonia to be ruled out. Reading Location: [facility] CC: DALIAC Karla Baron; Dr. Lucien Matthews DO Instructional Technologist: Signed Normal [facility] Chloride assayOrdered By: Sony Matthews on 05-18-2024 Chloride [Moles/Vol] 103 mmol/L 98-108 [facility] Emergency Department Summary on 05-18-2024 Emergency Department Summary [facility] Medical Records Department [address] [place] [address] Emergency Department Summary 05/18/24 MR#: [id number] Acct: [id number] Name: RAMONITA EL Rep #: [id number] : 1940 84 From: Lucien Matthews DO PCP: RAYO Pillai Status:REG ER Location: ED HPI History of Present Illness Chief Complaint: Shortness of Breath [facility] Medical History Alcohol use Prostate [...] all present (more content not included)... Normal [facility] Eosinophil percentageOrdered By: Lucien Matthews on 05-18-2024 Eosinophils/100 WBC (Bld) 0.8 % 0-5 [facility] Erythrocyte distribution wid th (RBC) [Ratio]Ordered By: Lucien Matthews on 05-18-2024 Erythrocyte distribution width (RBC) [Entitic vol] 43.2 fL 35.1-43.9 [facility] Erythrocyte distribution wid th ratioOrdered By: Lucien Matthews on 05-18-2024 Erythrocyte distribution width (RBC) [Ratio] 13.2 % 11.6-14.6 [facility] Erythrocyte distribution wid th standard deviationOrdered By: Lucien Matthews on 05-18-2024 Erythrocyte distribution width (RBC) [Ratio] 43.2 fl 35.1-43.9 [facility] Estimation of creatinine john aranceOrdered By: Lucien Matthews on 05-18-2024 Estimated Creatinine Clearance Calc 66.85 ml/min 50-250 [facility] GFR/1.73 sq M.predicted cynthia g non-blacks MDRD (S/P/Bld) [Vol rate/Area]Ordered By: Lucien Matthews on 05-18-2024 Estimated GFR (MDRD) Non-Af Amer 87 >60 [facility] Comment on above: mL/min/1.73m2 CKD-EP I Creatinine Equation (2020) Glomerular filtration rate ( GFR) estimation/1.73 sq m using serum, plasma, or whole bOrdered By: Lucien Matthews on 05-18-2024 GFR/1.73 sq M.predicted among non-blacks MDRD (S/P/Bld) [Vol rate/Area] 87 mL/min/{1.73_m2} >60 [facility] Comment on above: mL/min/1.73m2 CKD-EP I Creatinine Equation (2020) Hematocrit Auto (Bld) [Volum e fraction]Ordered By: Lucien Matthews on 05-18-2024 Hematocrit (Bld) [Volume fraction] 44.9 % 40-54 [facility] Hemoglobin measurementOrdere d By: Lucien Matthews on 05-18-2024 Hemoglobin (Bld) [Mass/Vol] 16.0 g/dL 13.0-16.5 [facility] Immature granulocytes/100 WB C Auto (Bld)Ordered By: Lucien Matthews on 05-18-2024 Immature granulocytes/100 WBC (Bld) 0.300 % 0.0-0.9 [facility] Comment on above: IG% - Immature Granu locytes (promyelocytes, myelocytes and metamyelocytes) > 1% indicates that a LEFT SHIFT is Present. L501.4021on 05-18-2024 Trop T High Sen 17 ng/L Normal <=22 [facility] Comment on above: Order Comment: *PLEA SE ADD ON PER DR.ANIKA* Performed By: #### L 9100.0100 #### [facility] [address] [place], [address] Lymphocytes Auto (Unsp spec) [#/Vol]Ordered By: Lucien Matthews on 05-18-2024 Lymphocytes (Bld) [#/Vol] 1.33 10*3/uL 0.83-4.51 [facility] Lymphocytes/100 WBC Auto (Un sp spec)Ordered By: Lucien Matthews on 05-18-2024 Lymphocytes/100 WBC (Bld) 14.4 % Low 19-41 [facility] MCV (mean corpuscular volume ) determinationOrdered By: Lucien Matthews on 05-18-2024 MCV (RBC) [Entitic vol] 89.4 fL 80-94 [facility] Mean corpuscular hemoglobin (MCH) determinationOrdered By: Lucien Matthews on 05-18-2024 MCH (RBC) [Entitic mass] 31.9 pg 27.0-32.0 [facility] Mean corpuscular hemoglobin concentration (MCHC) determinationOrdered By: Lucien Matthews on 05-18-2024 MCHC (RBC) [Mass/Vol] 35.6 g/dL 32-36 [facility] Mean platelet volume determi nationOrdered By: Lucien Matthews on 05-18-2024 Platelet mean volume (Bld) [Entitic vol] 10.3 fL 6.2-12.0 [facility] Monocyte percentageOrdered B y: Lucien Matthews on 05-18-2024 Monocytes/100 WBC (Bld) 8.5 % 0-10 [facility] Neutrophil percentageOrdered By: Lucien Matthews on 05-18-2024 Neutrophils/100 WBC (Bld) 75.2 % High 47-70 [facility] Nucleated red blood cell per centageOrdered By: Lucien Matthews on 05-18-2024 Nucleated RBC/100 WBC (Bld) [Ratio] 0 % 0-5 [facility] Platelet countOrdered By: Sony Matthews on 05-18-2024 Platelets (Bld) [#/Vol] 269 10*3/uL 150-450 [facility] Potassium (Unsp spec) [Mass/ Vol]Ordered By: Lucien Matthews on 05-18-2024 Potassium [Moles/Vol] 3.8 mmol/L 3.3-5.1 [facility] Potassium measurement (mass/ volume)Ordered By: Lucien Matthews on 05-18-2024 Potassium (Unsp spec) [Mass/Vol] 3.8 mmol/L 3.3-5.1 [facility] RBC Auto (Bld) [#/Vol]Ordere d By: Lucien Matthews on 05-18-2024 RBC (Bld) [#/Vol] 5.02 10*6/uL 4.6-6.2 [facility] Serum creatinine measurement (mass/volume)Ordered By: Lucien Matthews on 05-18-2024 Creatinine [Mass/Vol] 0.81 mg/dL 0.70-1.20 [facility] Serum glucose measurement (m ass/volume)Ordered By: Lucien Matthews on 05-18-2024 Glucose [Mass/Vol] 131 mg/dL High 70-99 [facility] Serum or plasma calcium heather urement (mass/volume)Ordered By: Lucien Matthews on 05-18-2024 Calcium [Mass/Vol] 9.5 mg/dL 7.6-11.0 [facility] Serum or plasma urea nitroge n measurement (mass/volume)Ordered By: Lucien Matthews on 05-18-2024 Urea nitrogen [Mass/Vol] 14 mg/dL 4-19 [facility] Sodium levelOrdered By: Kd Matthews on 05-18-2024 Sodium [Moles/Vol] 138 mmol/L 133-145 [facility] Troponin T.cardiac High sens itivity method [Mass/Vol]Ordered By: Lucien Matthews on 05-18-2024 Troponin T High Sensitivity 17 ng/L <22 [facility] Troponin T.cardiac [Mass/vol ume] in Serum or Plasma by High sensitivity methodOrdered By: Lucien Matthews on 05-18-2024 Troponin T.cardiac High sensitivity method [Mass/Vol] 17 ng/L <22 [facility] White blood cell (WBC) count Ordered By: Lucien Matthews on 05-18-2024 WBC (Bld) [#/Vol] 9.3 10*3/uL 4.4-11.0 [facility] 04-[facility]2024 [facility] Non-Invasive Vascular Laboratory [facility] Carotid Duplex Bilateral/Complete Date of service/time: 04/03/2024 [...] artery: 50-99% stenosis. Technologist: Claire Berry RVT, [facility] Ordering physician: KARLA BARON Interpreting physician: JOSE ALFREDO Rainey DO Final CC [employer] Medical Image : [id number] See Link below for Image Normal [facility] 03-03-2024 CNPN Telephone (LESLIEWS) -- RAMONITA EL ([id number]) 1940 M NFR Date Time Provider Department 03/03/24 KARLA BARON During your visit today, we recorded the following information about you: Karla Baron APRN.FURNITURE ASSEMBLER 03/03/2024 6:52 PM Signed Can please let [...] order in to get this done. Kay Anguiano RN 03/03/2024 7:12 PM Signed Called and left a voicemail for the Patient to call back and ask for a nurse to receive the providers message. ROBERT Hernandez Barbara, RN 03/04/2024 8:22 AM Signed Pt returned the call and notified of results and Karla Baron's explanations. He is notified of need to repeat PSA lab in a month and transferred to [facility] in scheduling to set up [...] [I65.23] Order(s):PROSTATE-SPECIFIC ANTIGEN DIAGNOSTIC [SQPSA] Order #: [id number] FUT[facility] [[id number]] Order #: [id number] FUTURE Prescriptions as of 03/04/2024 - finasteride [...] 09/06/2017 Stented (more content not included)... Normal [facility] CBC W Auto Differential pane l (Bld)on 02-29-2024 Basophils (Bld) [#/Vol] 0.07 10*3/uL Normal <0.11 [facility] Comment on above: Order Comment: Speci men Type: BLOOD SPECIMEN Ordering Facility: [facility] Address: [address] [place] [address] Performed By: #### 5 7021-8 #### [facility] CLIA [id number] [address] [place] [address] [place] Basophils/100 WBC (Bld) 0.9 % Normal [facility] Comment on above: Order Comment: Speci men Type: BLOOD SPECIMEN Ordering Facility: [facility] Address: [address] [place] [address] Performed By: #### 5 7021-8 #### [facility] CLIA [id number] [address] [place] [address] [place] Differential cell count method Nom (Bld) Auto Normal [facility] Comment on above: Order Comment: Speci men Type: BLOOD SPECIMEN Ordering Facility: [facility] Address: [address] [place] [address] Performed By: #### 5 7021-8 #### [facility] CLIA [id number] [address] [place] [address] [place] Eosinophils (Bld) [#/Vol] 0.13 10*3/uL Normal <0.46 [facility] Comment on above: Order Comment: Speci men Type: BLOOD SPECIMEN Ordering Facility: [facility] Address: [address] [place] [address] Performed By: #### 5 7021-8 #### [facility] CLIA [id number] [address] [place] [address] [place] Eosinophils/100 WBC (Bld) 1.7 % Normal [facility] Comment on above: Order Comment: Speci men Type: BLOOD SPECIMEN Ordering Facility: [facility] Address: [address] [place] [address] Performed By: #### 5 7021-8 #### [facility] CLIA [id number] [address] [place] [address] [place] Erythrocyte distribution width (RBC) [Ratio] 13.3 % Normal 11.5-15.0 [facility] Comment on above: Order Comment: Speci men Type: BLOOD SPECIMEN Ordering Facility: [facility] Address: [address] [place] [address] Performed By: #### 5 7021-8 #### [facility] CLIA [id number] [address] [place] [address] [place] Hematocrit (Bld) [Volume fraction] 47.5 % Normal 39.0-51.0 [facility] Comment on above: Order Comment: Speci men Type: BLOOD SPECIMEN Ordering Facility: [facility] Address: [address] [place] [address] Performed By: #### 5 7021-8 #### [facility] CLIA [id number] [address] [place] [address] [place] Hemoglobin (Bld) [Mass/Vol] 15.7 g/dL Normal 13.0-17.0 [facility] Comment on above: Order Comment: Speci men Type: BLOOD SPECIMEN Ordering Facility: [facility] Address: [address] [place] [address] Performed By: #### 5 7021-8 #### [facility] CLIA [id number] [address] [place] [address] [place] Immature granulocytes (Bld) [#/Vol] 10*3/uL Normal <0.10 [facility] Comment on above: Order Comment: Speci men Type: BLOOD SPECIMEN Ordering Facility: [facility] Address: [address] [place] [address] Performed By: #### 5 7021-8 #### [facility] CLIA [id number] [address] [place] [address] [place] Immature granulocytes/100 WBC (Bld) 0.1 % Normal [facility] Comment on above: Order Comment: Speci men Type: BLOOD SPECIMEN Ordering Facility: [facility] Address: [address] [place] [address] Performed By: #### 5 7021-8 #### [facility] CLIA [id number] [address] [place] [address] [place] Lymphocytes (Bld) [#/Vol] 1.30 10*3/uL Normal 1.00-4.00 [facility] Comment on above: Order Comment: Speci men Type: BLOOD SPECIMEN Ordering Facility: [facility] Address: [address] [place] [address] Performed By: #### 5 7021-8 #### [facility] CLIA [id number] [address] [place] [address] [place] Lymphocytes/100 WBC (Bld) 17.0 % Normal [facility] Comment on above: Order Comment: Speci men Type: BLOOD SPECIMEN Ordering Facility: [facility] Address: [address] [place] [address] Performed By: #### 5 7021-8 #### [facility] CLIA [id number] [address] [place] [address] [place] MCH (RBC) [Entitic mass] 31.2 pg Normal 26.0-34.0 [facility] Comment on above: Order Comment: Speci men Type: BLOOD SPECIMEN Ordering Facility: [facility] Address: [address] [place] [address] Performed By: #### 5 7021-8 #### [facility] CLIA [id number] [address] [place] [address] [place] MCHC (RBC) [Mass/Vol] 33.1 g/dL Normal 30.5-36.0 [facility] Comment on above: Order Comment: Speci men Type: BLOOD SPECIMEN Ordering Facility: [facility] Address: [address] [place] [address] Performed By: #### 5 7021-8 #### [facility] CLIA [id number] [address] [place] [address] [place] MCV (RBC) [Entitic vol] 94.4 fL Normal 80.0-100.0 [facility] Comment on above: Order Comment: Speci men Type: BLOOD SPECIMEN Ordering Facility: [facility] Address: [address] [place] [address] Performed By: #### 5 7021-8 #### [facility] CLIA [id number] [address] [place] [address] [place] Monocytes (Bld) [#/Vol] 0.61 10*3/uL Normal <0.87 [facility] Comment on above: Order Comment: Speci men Type: BLOOD SPECIMEN Ordering Facility: [facility] Address: [address] [place] [address] Performed By: #### 5 7021-8 #### [facility] CLIA [id number] [address] [place] [address] [place] Monocytes/100 WBC (Bld) 8.0 % Normal [facility] Comment on above: Order Comment: Speci men Type: BLOOD SPECIMEN Ordering Facility: [facility] Address: [address] [place] [address] Performed By: #### 5 7021-8 #### [facility] CLIA [id number] [address] [place] [address] [place] Neutrophils (Bld) [#/Vol] 5.53 10*3/uL Normal 1.45-7.50 [facility] Comment on above: Order Comment: Speci men Type: BLOOD SPECIMEN Ordering Facility: [facility] Address: [address] [place] [address] Performed By: #### 5 7021-8 #### [facility] CLIA [id number] [address] [place] [address] [place] Neutrophils/100 WBC (Bld) 72.3 % Normal [facility] Comment on above: Order Comment: Speci men Type: BLOOD SPECIMEN Ordering Facility: [facility] Address: [address] [place] [address] Performed By: #### 5 7021-8 #### [facility] CLIA [id number] [address] [place] [address] [place] Nucleated RBC (Bld) [#/Vol] 10*3/uL Normal <0.01 [facility] Comment on above: Order Comment: Speci men Type: BLOOD SPECIMEN Ordering Facility: [facility] Address: [address] [place] [address] Performed By: #### 5 7021-8 #### [facility] CLIA [id number] [address] [place] [address] [place] Nucleated RBC/100 WBC (Bld) [Ratio] 0.0 /100 WBC Normal [facility] Comment on above: Order Comment: Speci men Type: BLOOD SPECIMEN Ordering Facility: [facility] Address: [address] [place] [address] Performed By: #### 5 7021-8 #### [facility] CLIA [id number] [address] [place] [address] [place] Platelet mean volume (Bld) [Entitic vol] 11.3 fL Normal 9.0-12.7 [facility] Comment on above: Order Comment: Speci men Type: BLOOD SPECIMEN Ordering Facility: [facility] Address: [address] [place] [address] Performed By: #### 5 7021-8 #### [facility] CLIA [id number] [address] [place] [address] [place] Platelets (Bld) [#/Vol] 264 10*3/uL Normal 150-400 [facility] Comment on above: Order Comment: Speci men Type: BLOOD SPECIMEN Ordering Facility: [facility] Address: [address] [place] [address] Performed By: #### 5 7021-8 #### [facility] CLIA [id number] [address] [place] [address] [place] RBC (Bld) [#/Vol] 5.03 10*6/uL Normal 4.20-6.[address] [facility] Comment on above: Order Comment: Speci men Type: BLOOD SPECIMEN Ordering Facility: [facility] Address: [address] [place] [address] Performed By: #### 5 7021-8 #### [facility] [place] [id number] [address] [place] [address] [place] WBC (Bld) [#/Vol] 7.65 10*3/uL Normal 3.70-11.[address] [facility] Comment on above: Order Comment: Speci men Type: BLOOD SPECIMEN Ordering Facility: [facility] Address: [address] [place] [address] Performed By: #### 5 7021-8 #### [facility] IA [id number] [address] [place] [address] [place] CNOVon 02-29-2024 CNOV Office Visit (FAMPWS ) -- RAMONITA EL ([id number]) 1940 M NFR Date Time Provider Department 02/29/24 2:00 PM KARLA BARON During your visit today, we recorded the following information about you: Pulse Respiration Blood pressure Weight 72/minute 16/minute 138/74 73 kg Karla Baron APRN.CNP 02/29/2024 3:54 PM Signed This is a [...] episode of care unspecified 08/10/06 STENT placed [facility] Alcohol abuse 05/22/2013 Chronic anxiety 10/22/2017 [...] gesture Radius fracture 06/21/2013 See scanned documents [facility] Tobacco abuse 05/22/2013 Urinary calculus, [...] nourished.. Skin: (more content not included)... Normal [facility] Comprehensive metabolic 2000 panelon 02-29-2024 Albumin [Mass/Vol] 4.1 g/dL Normal 3.9-4.[address] [facility] Comment on above: Order Comment: Speci men Type: BLOOD SPECIMEN Ordering Facility: [facility] Address: [address] [place] [address] Performed By: #### P SAS1 #### [facility] CLIA [id number] [address] [place] [address] [place] ALP [Catalytic activity/Vol] 96 U/L Normal 38-113 [facility] Comment on above: Order Comment: Speci men Type: BLOOD SPECIMEN Ordering Facility: [facility] Address: [address] [place] [address] Performed By: #### P SAS1 #### [facility] CLIA [id number] [address] [place] [address] [place] ALT [Catalytic activity/Vol] 12 U/L Normal 10-54 [facility] Comment on above: Order Comment: Speci men Type: BLOOD SPECIMEN Ordering Facility: [facility] Address: [address] [place] [address] Performed By: #### P SAS1 #### [facility] CLIA [id number] [address] [place] [address] [place] Anion gap [Moles/Vol] 12 mmol/L Normal 8-15 [facility] Comment on above: Order Comment: Speci men Type: BLOOD SPECIMEN Ordering Facility: [facility] Address: [address] [place] [address] Performed By: #### P SAS1 #### [facility] CLIA [id number] [address] [place] [address] [place] AST [Catalytic activity/Vol] 17 U/L Normal 14-40 [facility] Comment on above: Order Comment: Speci men Type: BLOOD SPECIMEN Ordering Facility: [facility] Address: [address] [place] [address] Performed By: #### P SAS1 #### [facility] CLIA [id number] [address] [place] [address] [place] Bilirubin [Mass/Vol] 0.4 mg/dL Normal 0.2-1.3 [facility] Comment on above: Order Comment: Speci men Type: BLOOD SPECIMEN Ordering Facility: [facility] Address: [address] [place] [address] Performed By: #### P SAS1 #### [facility] CLIA [id number] [address] [place] [address] [place] Calcium [Mass/Vol] 9.6 mg/dL Normal 8.5-10.[address] [facility] Comment on above: Order Comment: Speci men Type: BLOOD SPECIMEN Ordering Facility: [facility] Address: [address] [place] [address] Performed By: #### P SAS1 #### [facility] CLIA [id number] [address] [place] [address] [place] Chloride [Moles/Vol] 102 mmol/L Normal 98-107 [facility] Comment on above: Order Comment: Speci men Type: BLOOD SPECIMEN Ordering Facility: [facility] Address: [address] [place] [address] Performed By: #### P SAS1 #### [facility] CLIA [id number] [address] [place] [address] [place] CO2 [Moles/Vol] 25 mmol/L Normal 22-30 [facility] Comment on above: Order Comment: Speci men Type: BLOOD SPECIMEN Ordering Facility: [facility] Address: [address] [place] [address] Performed By: #### P SAS1 #### [facility] CLIA [id number] [address] [place] [address] [place] Creatinine [Mass/Vol] 0.68 mg/dL Low 0.73-1.22 [facility] Comment on above: Order Comment: Speci men Type: BLOOD SPECIMEN Ordering Facility: [facility] Address: [address] [place] [address] Performed By: #### P SAS1 #### [facility] CLIA [id number] [address] [place] [address] [place] Creatinine and Glomerular filtration rate.predicted panel (S/P/Bld) 92 mL/min/1.73m??? Normal >=60 [facility] Comment on above: Order Comment: Speci men Type: BLOOD SPECIMEN Ordering Facility: [facility] Address: [address] [place] [address] Result Comment: Nicholas mated Glomerular Filtration Rate [...] accurately reflect actual GFR. Performed By: #### P SAS1 #### [facility] CLIA [id number] [address] [place] [address] [place] Glucose [Mass/Vol] 97 mg/dL Normal 74-[address] [facility] Comment on above: Order Comment: Speci men Type: BLOOD SPECIMEN Ordering Facility: [facility] Address: [address] [place] [address] Result Comment: The [place] [employer] (ADA) provides guidance for cutoff [...] Standards of Medical Care in Diabetes 2016, [place] [employer]. Diabetes Care. 2016.39(Suppl 1). Performed By: #### P SAS1 #### [facility] CLIA [id number] [address] [place] [address] [place] Potassium [Moles/Vol] 4.2 mmol/L Normal 3.7-5.1 [facility] Comment on above: Order Comment: Speci men Type: BLOOD SPECIMEN Ordering Facility: [facility] Address: [address] [place] [address] Performed By: #### P SAS1 #### [facility] CLIA [id number] [address] [place] [address] [place] Protein [Mass/Vol] 7.2 g/dL Normal 6.3-8.[address] [facility] Comment on above: Order Comment: Speci men Type: BLOOD SPECIMEN Ordering Facility: [facility] Address: [address] [place] [address] Performed By: #### P SAS1 #### [facility] CLIA [id number] [address] [place] [address] [place] Sodium [Moles/Vol] 139 mmol/L Normal 136-[address] [facility] Comment on above: Order Comment: Speci men Type: BLOOD SPECIMEN Ordering Facility: [facility] Address: [address] [place] [address] Performed By: #### P SAS1 #### [facility] CLIA [id number] [address] [place] [address] [place] Urea nitrogen [Mass/Vol] 12 mg/dL Normal 9-24 [facility] Comment on above: Order Comment: Speci men Type: BLOOD SPECIMEN Ordering Facility: [facility] Address: [address] [place] [address] Performed By: #### P SAS1 #### [facility] CLIA [id number] [address] [place] [address] [place] Lipid 1996 panelon 5 Cholesterol [Mass/Vol] 217 mg/dL High <200 [facility] Comment on above: Order Comment: Speci men Type: BLOOD SPECIMEN Ordering Facility: [facility] Address: [address] [place] [address] Result Comment: <200 mg/dL, Desirable 200-239 mg/dL, Borderline high >239 mg/dL, High Performed By: #### P SAS1 #### [facility] CLIA [id number] [address] [place] [address] [place] Cholesterol in HDL [Mass/Vol] 39 mg/dL Low >39 [facility] Comment on above: Order Comment: Speci men Type: BLOOD SPECIMEN Ordering Facility: [facility] Address: [address] [place] [address] Result Comment: 40-5 9 mg/dL, Acceptable >59 mg/dL, High: Negative risk factor for coronary heart disease <40 mg/dL, Low: Positive risk factor for coronary heart disease Performed By: #### P SAS1 #### [facility] CLIA [id number] [address] [place] [address] [place] Cholesterol in LDL [Mass/Vol] 150 mg/dL High <100 [facility] Comment on above: Order Comment: Speci men Type: BLOOD SPECIMEN Ordering Facility: [facility] Address: [address] [place] [address] Result Comment: <100 mg/dL, Optimal 100-129 mg/dL, Near optimal/above optimal 130-159 mg/dL, Borderline high 160-189 mg/dL, High >189 mg/dL, Very high Secondary prevention optimal LDL Cholesterol levels are recommended to be < 70 mg/dL Performed By: #### P SAS1 #### [facility] CLIA [id number] [address] [place] [address] [place] Cholesterol in LDL/Cholesterol in HDL [Mass ratio] 3.85 {ratio} High <2.54 [facility] Comment on above: Order Comment: Jh del cid Type: BLOOD SPECIMEN Ordering Facility: [facility] Address: [address] [place] [address] Result Comment: Refe rence: 1. National Cholesterol Education Program ATP III Guideline At-A-Glance Quick Desk Reference: National Heart, Lung, and Blood [place]. National Institutes of Health. 2001: NIH Publication No. 01-3305. 2. An International Atherosclerosis Society position paper: global recommendations for the management of dyslipidemia: executive summary, Atherosclerosis. 2014: 232(2):410-413. Performed By: #### P SAS1 #### [facility] CLIA [id number] [address] [place] [address] [place] Cholesterol in VLDL [Mass/Vol] 28 mg/dL Normal <30 [facility] Comment on above: Order Comment: Jh del cid Type: BLOOD SPECIMEN Ordering Facility: [facility] Address: [address] [place] [address] Performed By: #### P SAS1 #### [facility] CLIA [id number] [address] [place] [address] [place] Cholesterol non HDL [Mass/Vol] 178 mg/dL High <130 [facility] Comment on above: Order Comment: Jh del cid Type: BLOOD SPECIMEN Ordering Facility: [facility] Address: [address] [place] [address] Result Comment: <130 mg/dL, Optimal 130-159 mg/dL, Near optimal/above optimal 160-189 mg/dL, Borderline high 190-219 mg/dL, High >219 mg/dL, Very high Secondary prevention optimal non HDL Cholesterol levels are recommended to be <100 mg/dL Performed By: #### P SAS1 #### [facility] CLIA [id number] [address] [place] [address] [place] Cholesterol.total/Chol esterol in HDL [Mass ratio] 5.56 {ratio} High <5.10 [facility] Comment on above: Order Comment: Speci men Type: BLOOD SPECIMEN Ordering Facility: [facility] Address: [address] [place] [address] Performed By: #### P SAS1 #### [facility] CLIA [id number] [address] [place] [address] [place] FASTING TIME 12 hrs Normal [facility] Comment on above: Order Comment: Speci men Type: BLOOD SPECIMEN Ordering Facility: [facility] Address: [address] [place] [address] Performed By: #### P SAS1 #### [facility] CLIA [id number] [address] [place] [address] [place] Triglyceride [Mass/Vol] 142 mg/dL Normal <150 [facility] Comment on above: Order Comment: Speci men Type: BLOOD SPECIMEN Ordering Facility: [facility] Address: [address] [place] [address] Result Comment: <150 mg/dL, Normal 150-199 mg/dL, Borderline high 200-499 mg/dL, High >499 mg/dL, Very high Performed By: #### P SAS1 #### [facility] CLIA [id number] [address] [place] [address] [place] Magnesium SerPl-mCncon 02-28 Magnesium [Mass/Vol] 1.9 mg/dL Normal 1.7-2.3 [facility] Comment on above: Order Comment: Speci men Type: BLOOD SPECIMEN Ordering Facility: [facility] Address: [address] [place] [address] Performed By: #### P SAS1 #### [facility] CLIA [id number] [address] [place] [address] [place] PSA/PROSTATE SPECIFIC ANTIGE N SCREENINGon 02-29-2024 Prostate specific Ag [Mass/Vol] 5.99 ng/mL High <2.60 [facility] Comment on above: Order Comment: Speci men Type: BLOOD SPECIMEN Ordering Facility: [facility] Address: [address] [place] [address] Result Comment: Tota l PSA test methodology [...] Yan M.D., Ph.D., Aamir Granados M.D., Wendy Ervin, M.P.H., Camilla Figueroa, Sc.D. Effect of Verification Bias on Screening for Prostate Cancer by Measurement of Prostatic Specific Antigen. N Engl J Med 2003,349:335-42. Performed By: #### P SAS1 #### [facility] CLIA [id number] [address] [place] [address] [place] CNPErendira 02-27-2024 CNPN Telephone (FAMPWS) -- RAMONITA EL ([id number]) 1940 M NFR Date Time Provider Department [...] well. Patient voiced understanding. ROBERT Cheatham Sherrie, ROBERT 02/27/2024 3:30 PM Signed This nurse called [...] nurse for this message. Ashley Grant RN [facility] 02/27/2024 3:49 PM Addendum Please call patient , patient did return the call, we were on hold several minutes , advised patient I will send message for nurse to call back Please call patient [phone] Sandy Cardoza RN 02/27/2024 4:37 PM Signed [...] Date Reviewed: 02/01/2024 Reviewed by: Gus Sanchez APRN.FURNITURE ASSEMBLER - Fully Assessed Reason for Visit: Patient [...] Chronic interstitia (more content not included)... Normal [facility] Basic Metabolic Profile (BMP )on 02-18-2024 BUN/CRE 17.3 RATIO Normal 10-20 [facility] Comment on above: Performed By: #### L 501.9910, L500.2500 #### [facility] [address] [place], [address] CA,Total 8.9 mg/dL Normal 8.5-10.1 [facility] Comment on above: Performed By: #### L 501.9910, L500.2500 #### [facility] [address] [place], [address] Chloride [Moles/Vol] 108 mmol/L High 98-107 [facility] Comment on above: Performed By: #### L 501.9910, L500.2500 #### [facility] [address] [place], [address] CO2 [Moles/Vol] 27.0 mmol/L Normal 21.0-32.0 [facility] Comment on above: Performed By: #### L 501.9910, L500.2500 #### [facility] [address] [place], [address] Creatinine [Mass/Vol] 0.92 mg/dL Normal 0.70-1.30 [facility] Comment on above: Result Comment: The validity of the calculated GFR GFRAA in patients over 70 years has not been determined. Clinical correlation is essential. Performed By: #### L 501.9910, L500.2500 #### [facility] [address] [place], [address] EST GFR - AA 101 mL/min Normal >60 [facility] Comment on above: Result Comment: Afri can Kosovan GFR Calc Performed By: #### L 501.9910, L500.2500 #### [facility] [address] [place], [address] GAP 4 Low 5-15 [facility] Comment on above: Performed By: #### L 501.9910, L500.2500 #### [facility] [address] [place], [address] GFR/1.73 sq M.predicted among non-blacks MDRD (S/P/Bld) [Vol rate/Area] 83 mL/min/{1.73_m2} Normal >60 [facility] Comment on above: Result Comment: Non- GFR Calc Performed By: #### L 501.9910, L500.2500 #### [facility] [address] [place], [address] Glucose [Mass/Vol] 131 mg/dL High 74-106 [facility] Comment on above: Result Comment: Fast ing Glucose result greater than or equal to 126 mg/dL suggests DIABETES MELLITUS per A.D.A. criteria. Performed By: #### L 501.9910, L500.2500 #### [facility] [address] [place], [address] Potassium [Moles/Vol] 4.1 mmol/L Normal 3.5-5.1 [facility] Comment on above: Performed By: #### L 501.9910, L500.2500 #### [facility] [address] [place], [address] Sodium [Moles/Vol] 140 mmol/L Normal 136-145 [facility] Comment on above: Performed By: #### L 501.9910, L500.2500 #### [facility] [address] [place], [address] Urea nitrogen [Mass/Vol] 16 mg/dL Normal 7-18 [facility] Comment on above: Performed By: #### L 501.9910, L500.2500 #### [facility] [address] [place], [address] Blood urea nitrogen (BUN)/cr eatinine ratioOrdered By: Justice Johnson on 02-18-2024 Urea nitrogen/Creatinine [Mass ratio] 17.3 mg/mg 10-20 [facility] Carbon dioxide measurementOr dered By: Justice Johnson on 02-18-2024 CO2 [Moles/Vol] 27.0 mmol/L 21.0-32.0 [facility] Chloride measurementOrdered By: Justice Johnson on 02-18-2024 Chloride [Moles/Vol] 108 mmol/L High 98-107 [facility] Estimated glomerular filtrat ion rate (GFR) AmericanOrdered By: Justice Johnson on 01-13-2025 Estimated GFR (MDRD) Amer 101 mL/min >60 [facility] Comment on above: GFR Calc Glomerular filtration rate ( GFR) estimationOrdered By: Justice Johnson on 02-18-2024 Estimated GFR (MDRD) Non-Af Amer 83 mL/min >60 [facility] Comment on above: Non- GFR Calc GFR/1.73 sq M.predicted among non-blacks MDRD (S/P/Bld) [Vol rate/Area] 83 mL/min/{1.73_m2} >60 [facility] Comment on above: Non- GFR Calc Glucose measurementOrdered B y: Justice Johnson on 02-18-2024 Glucose [Mass/Vol] 131 mg/dL High 74-106 [facility] Comment on above: Fasting Glucose resu lt greater than or equal to 126 mg/dL suggests DIABETES MELLITUS per A.D.A. criteria. PSA,Total - Annual Screenon 02-18-2024 PSA,TOT SCREEN 3.70 ng/mL Normal 0.00-4.00 [facility] Comment on above: Result Comment: This test was performed using the TPSA assay method for the [employer] chemistry system. Values obtained with different assay methods cannot be used interchangably. When changing PSA assays in the course of monitoring a patient, additional sequential testing should be carried out to confirm baseline values. Performed By: #### L 501.9910, L500.2500 #### [facility] [place], [address] Potassium measurementOrdered By: Justice Johnson on 02-18-2024 Potassium [Moles/Vol] 4.1 mmol/L 3.5-5.1 [facility] Screening prostate specific antigen (PSA) measurementOrdered By: Justice Johnson on 02-18-2024 Prostate Specific Antigen Screen 3.70 ng/mL 0.00-4.00 [facility] Comment on above: This test was perfor med using the TPSA assay method for [employer] chemistry system. Values obtained with differentassay methods cannot be used interchangably.When changing PSA assays in the course of monitoring apatient, additional sequential testing should be carriedout to confirm baseline values. Serum anion gap measurementO rdered By: Justice Johnson on 02-18-2024 Anion gap [Moles/Vol] 4 mmol/L Low 5-15 [facility] Serum or plasma calcium heather urement (mass/volume)Ordered By: Justice Johnson on 02-18-2024 Calcium [Mass/Vol] 8.9 mg/dL 8.5-10.1 [facility] Serum or plasma creatinine m easurement (mass/volume)Ordered By: Justice Johnson on 02-18-2024 Creatinine [Mass/Vol] 0.92 mg/dL 0.70-1.30 [facility] Comment on above: The validity of the calculated GFR & GFRAA in patients over 70 years has not been determined. Clinical correlation is essential. Serum or plasma urea nitroge n measurement (mass/volume)Ordered By: Justice Johnson on 02-18-2024 Urea nitrogen [Mass/Vol] 16 mg/dL 7-18 [facility] Sodium levelOrdered By: Justice Johnson on 02-18-2024 Sodium [Moles/Vol] 140 mmol/L 136-145 [facility] Urine Cultureon 02-13-2024 [facility] Staphylococcus epide rmidis [place] Count >100,000 Staphylococcus epidermidis: REACTION cefOXitin Susc Islt Doxycycline Islt GERALD 1 S Clindamycin.induced Susc Islt NEG Gentamicin Islt GERALD <=0.5 S Linezolid Islt GERALD 2 S Nitrofurantoin Islt GERALD <=16 S Oxacillin Susc Islt >=4 R Tetracycline Islt GERALD 2 S TMP SMX Islt GERALD 80 R Vancomycin Islt GERALD 1 S Normal [facility] Comment on above: Performed By: #### M 100.2200 ####[facility] [address] [place], [place], [address] Absolute neutrophil countOrd ered By: Mello Briceño on 02-11-2024 Neutrophils (Bld) [#/Vol] 7.5 10*3/uL 2.0-7.7 [facility] Basic Metabolic Profile (BMP )on 02-11-2024 BUN/CRE 25.4 RATIO High 10-20 [facility] Comment on above: Performed By: #### L 500.2500, L100.0100 ####[facility] [address] [place], [address] CA,Total 9.4 mg/dL Normal 8.5-10.1 [facility] Comment on above: Performed By: #### L 500.2500, L100.0100 ####[facility] [address] [place], [address] Chloride [Moles/Vol] 109 mmol/L High 98-107 [facility] Comment on above: Performed By: #### L 500.2500, L100.0100 ####[facility] [address] [place], [address] CO2 [Moles/Vol] 25.0 mmol/L Normal 21.0-32.0 [facility] Comment on above: Performed By: #### L 500.2500, L100.0100 ####[facility] [address] [place], [address] Creatinine [Mass/Vol] 0.90 mg/dL Normal 0.70-1.30 [facility] Comment on above: Result Comment: The validity of the calculated GFR GFRAA in patients over 70 years has not been determined. Clinical correlation is essential. Performed By: #### L 500.2500, L100.0100 ####[facility] [address] [place], [address] ECRCL 61.22 ml/min Normal [facility] Comment on above: Performed By: #### L 500.2500, L100.0100 ####[facility] [address] [place], [address] EST GFR - AA 103 mL/min Normal >60 [facility] Comment on above: Result Comment: Afri can Kosovan GFR Calc Performed By: #### L 500.2500, L100.0100 ####[facility] [address] [place], [address] GAP 6 Normal 5-15 [facility] Comment on above: Performed By: #### L 500.2500, L100.0100 ####[facility] [address] [place], [address] GFR/1.73 sq M.predicted among non-blacks MDRD (S/P/Bld) [Vol rate/Area] 85 mL/min/{1.73_m2} Normal >60 [facility] Comment on above: Result Comment: Non- GFR Calc Performed By: #### L 500.2500, L100.0100 ####[facility] [address] [place], [address] Glucose [Mass/Vol] 133 mg/dL High 74-106 [facility] Comment on above: Result Comment: Fast ing Glucose result greater than or equal to 126 mg/dL suggests DIABETES MELLITUS per A.D.A. criteria. Performed By: #### L 500.2500, L100.0100 ####[facility] [address] [place], [address] Potassium [Moles/Vol] 3.6 mmol/L Normal 3.5-5.1 [facility] Comment on above: Performed By: #### L 500.2500, L100.0100 ####[facility] [address] [place], [address] Sodium [Moles/Vol] 140 mmol/L Normal 136-145 [facility] Comment on above: Performed By: #### L 500.2500, L100.0100 ####[facility] [address] [place], [address] Urea nitrogen [Mass/Vol] 23 mg/dL High 7-18 [facility] Comment on above: Performed By: #### L 500.2500, L100.0100 ####[facility] [address] [place], [address] Basophil percentageOrdered B y: Mello Briceño on 02-11-2024 Basophils/100 WBC (Bld) 0.8 % 0-1 [facility] Bilirubin Test strip Ql (U)O rdered By: Mello Briceño on 02-11-2024 Bilirubin Ql (U) 1 mg/dL High Negative [facility] Comment on above: COLOR OF URINE MAY A FFECT DIPSTICK RESULTS. Blood urea nitrogen (BUN)/cr eatinine ratioOrdered By: Mello Briceño on 02-11-2024 Urea nitrogen/Creatinine [Mass ratio] 25.4 mg/mg High 10-20 [facility] CBC W/Diff, Automatedon Absolute Lymph 1.47 X10 3/uL Normal 0.83-4.51 [facility] Comment on above: Performed By: #### L 500.2500, L100.0100 ####[facility] [address] [place], [address] Absolute Neut 7.5 X10 3/uL Normal 2.0-7.7 [facility] Comment on above: Performed By: #### L 500.2500, L100.0100 ####[facility] [address] [place], [address] Basophils/100 WBC (Bld) 0.8 % Normal 0-1 [facility] Comment on above: Performed By: #### L 500.2500, L100.0100 ####[facility] [address] [place], [address] Eosinophils/100 WBC (Bld) 1.2 % Normal 0-5 [facility] Comment on above: Performed By: #### L 500.2500, L100.0100 ####[facility] [address] [place], [address] Erythrocyte distribution width (RBC) [Ratio] 14.8 % High 11.6-14.6 [facility] Comment on above: Performed By: #### L 500.2500, L100.0100 ####[facility] [address] [place], [address] Hematocrit (Bld) [Volume fraction] 45.0 % Normal 40-54 [facility] Comment on above: Performed By: #### L 500.2500, L100.0100 ####[facility] [address] [place], [address] Hemoglobin (Bld) [Mass/Vol] 16.1 g/dL Normal 13.0-16.5 [facility] Comment on above: Performed By: #### L 500.2500, L100.0100 ####[facility] [address] [place], [address] IG% 0.500 Normal 0.0-0.9 [facility] Comment on above: Result Comment: IG% - Immature Granulocytes (promyelocytes, myelocytes and metamyelocytes) > 1% indicates that a LEFT SHIFT is Present. Performed By: #### L 500.2500, L100.0100 ####[facility] [address] [place], [address] Lymphocytes/100 WBC (Bld) 14.8 % Low 19-41 [facility] Comment on above: Performed By: #### L 500.2500, L100.0100 ####[facility] [address] [place], [address] MCH (RBC) [Entitic mass] 34.3 pg High 27.0-32.0 [facility] Comment on above: Performed By: #### L 500.2500, L100.0100 ####[facility] [address] [place], [address] MCHC (RBC) [Mass/Vol] 35.8 g/dL Normal 32-36 [facility] Comment on above: Performed By: #### L 500.2500, L100.0100 ####[facility] [address] [place], [address] MCV (RBC) [Entitic vol] 95.7 fL High 80-94 [facility] Comment on above: Performed By: #### L 500.2500, L100.0100 ####[facility] [address] [place], [address] Monocytes/100 WBC (Bld) 7.3 % Normal 0-10 [facility] Comment on above: Performed By: #### L 500.2500, L100.0100 ####[facility] [address] [place], [address] Neutrophils/100 WBC (Bld) 75.4 % High 47-70 [facility] Comment on above: Performed By: #### L 500.2500, L100.0100 ####[facility] [address] [place], [address] Nucleated RBC (Bld) [#/Vol] 0 10*3/uL Normal 0-5 [facility] Comment on above: Performed By: #### L 500.2500, L100.0100 ####[facility] [address] [place], [address] Platelet mean volume (Bld) [Entitic vol] 10.7 fL Normal 6.2-12.0 [facility] Comment on above: Performed By: #### L 500.2500, L100.0100 ####[facility] [address] [place], [address] Platelets (Bld) [#/Vol] 350 10*3/uL Normal 150-450 [facility] Comment on above: Performed By: #### L 500.2500, L100.0100 ####[facility] [address] [place], [address] RBC (Bld) [#/Vol] 4.70 10*6/uL Normal 4.6-6.2 [facility] Comment on above: Performed By: #### L 500.2500, L100.0100 ####[facility] [address] [place], [address] RDW SD 44.0 fl High 35.1-43.9 [facility] Comment on above: Performed By: #### L 500.2500, L100.0100 ####[facility] [address] [place], [address] WBC (Bld) [#/Vol] 10.0 10*3/uL Normal 4.4-11.0 [facility] Comment on above: Performed By: #### L 500.2500, L100.0100 ####[facility] [address] [place], [address] Calcium oxalate crystals LM Ql (Urine sed)Ordered By: Mello Briceño on 02-11-2024 Urine Calcium Oxalate Crystals RARE /hpf [facility] Carbon dioxide measurementOr dered By: Mello Briceño on 02-11-2024 CO2 [Moles/Vol] 25.0 mmol/L 21.0-32.0 [facility] Chloride measurementOrdered By: Mello Briceño on 02-11-2024 Chloride [Moles/Vol] 109 mmol/L High 98-107 [facility] Emergency Department Summary on 02-11-2024 Emergency Department Summary [facility] Medical Records Department [address] [place] [address] Emergency Department Summary 02/11/24 MR#: [id number] Acct: [id number] Name: RAMONITA EL Rep #: [id number] : 1940 83 From: Mello Briceño DO [...] vomiting. Patient describes his pain as burning. [facility] Medical History Alcohol use Prostate [...] the patient's (more content not included)... Normal [facility] Eosinophil percentageOrdered By: Mello Briceño on 02-11-2024 Eosinophils/100 WBC (Bld) 1.2 % 0-5 [facility] Epithelial cells.squamous LM Ql (Urine sed)Ordered By: Mello Briceño on 02-11-2024 Epithelial cells.squamous LM.HPF (Urine sed) [#/Area] 0 /[HPF] 0-5 [facility] Erythrocyte distribution wid th (RBC) [Ratio]Ordered By: Mello Briceño on 02-11-2024 Erythrocyte distribution width (RBC) [Entitic vol] 44.0 fL High 35.1-43.9 [facility] Erythrocyte distribution wid th ratioOrdered By: Mello Briceño on 02-11-2024 Erythrocyte distribution width (RBC) [Ratio] 14.8 % High 11.6-14.6 [facility] Estimated glomerular filtrat ion rate (GFR) AmericanOrdered By: Mello Briceño on 02-11-2024 Estimated GFR (MDRD) Amer 103 mL/min >60 [facility] Comment on above: GFR Calc Estimation of creatinine john aranceOrdered By: Mello Briceño on 02-11-2024 Estimated Creatinine Clearance Calc 61.22 ml/min [facility] Glomerular filtration rate ( GFR) estimationOrdered By: Mello Briceño on 02-11-2024 Estimated GFR (MDRD) Non-Af Amer 85 mL/min >60 [facility] Comment on above: Non- GFR Calc Glucose Ql (U)Ordered By: Guille Briceño on 02-11-2024 Urine Glucose (UA) Normal mg/dl Normal [facility] Glucose measurementOrdered B y: Mello Briceño on 02-11-2024 Glucose [Mass/Vol] 133 mg/dL High 74-106 [facility] Comment on above: Fasting Glucose resu lt greater than or equal to 126 mg/dL suggests DIABETES MELLITUS per A.D.A. criteria. Hematocrit Auto (Bld) [Volum e fraction]Ordered By: Mello Briceño on 02-11-2024 Hematocrit (Bld) [Volume fraction] 45.0 % 40-54 [facility] Hemoglobin measurementOrdere d By: Mello Briceño on 02-11-2024 Hemoglobin (Bld) [Mass/Vol] 16.1 g/dL 13.0-16.5 [facility] Immature granulocytes/100 WB C Auto (Bld)Ordered By: Mello Briceño on 02-11-2024 Immature granulocytes/100 WBC (Bld) 0.500 % 0.0-0.9 [facility] Comment on above: IG% - Immature Granu locytes (promyelocytes, myelocytes and metamyelocytes) > 1% indicates that a LEFT SHIFT is Present. Ketones Test strip Ql (U)Ord ered By: Mello Briceño on 02-11-2024 Ketones Ql (U) 5 mg/dl High Negative [facility] Lymphocytes Auto (Unsp spec) [#/Vol]Ordered By: Mello Briceño on 02-11-2024 Lymphocytes (Bld) [#/Vol] 1.47 10*3/uL 0.83-4.51 [facility] Lymphocytes/100 WBC Auto (Un sp spec)Ordered By: Mello Briceño on 02-11-2024 Lymphocytes/100 WBC (Bld) 14.8 % Low 19-41 [facility] MCV (mean corpuscular volume ) determinationOrdered By: Mello Briceño on 02-11-2024 MCV (RBC) [Entitic vol] 95.7 fL High 80-94 [facility] Mean corpuscular hemoglobin (MCH) determinationOrdered By: Mello Briceño on 02-11-2024 MCH (RBC) [Entitic mass] 34.3 pg High 27.0-32.0 [facility] Mean corpuscular hemoglobin concentration (MCHC) determinationOrdered By: Mello Briceño on 02-11-2024 MCHC (RBC) [Mass/Vol] 35.8 g/dL 32-36 [facility] Mean platelet volume determi nationOrdered By: Mello Briceño on 02-11-2024 Platelet mean volume (Bld) [Entitic vol] 10.7 fL 6.2-12.0 [facility] Microscopic analysis of urin e for red blood cells (RBC)Ordered By: Mello Briceño on 02-11-2024 Urine RBC > 100 SEEN /hpf 0-5 [facility] Monocyte percentageOrdered B y: Mello Briceño on 02-11-2024 Monocytes/100 WBC (Bld) 7.3 % 0-10 [facility] Mucus LM Ql (Urine sed)Order ed By: Mello Briceño on 02-11-2024 Mucus Ql (Urine sed) 0 SEEN /hpf [facility] Neutrophil percentageOrdered By: Mello Briceño on 02-11-2024 Neutrophils/100 WBC (Bld) 75.4 % High 47-70 [facility] Nitrite Test strip Ql (U)Ord ered By: Mello Briceño on 02-11-2024 Nitrite Ql (U) Positive High Negative [facility] Nucleated red blood cell per centageOrdered By: Mello Briceño on 02-11-2024 Nucleated RBC/100 WBC (Bld) [Ratio] 0 % 0-5 [facility] Platelet countOrdered By: Guille Briceño on 02-11-2024 Platelets (Bld) [#/Vol] 350 10*3/uL 150-450 [facility] Potassium measurementOrdered By: Mello Briceño on 02-11-2024 Potassium [Moles/Vol] 3.6 mmol/L 3.5-5.1 [facility] Protein Test strip Ql (U)Ord ered By: Mello Briceño on 02-11-2024 Protein Ql (U) 100 mg/dl High Negative [facility] RBC Auto (Bld) [#/Vol]Ordere d By: Mello Briceño on 02-11-2024 RBC (Bld) [#/Vol] 4.70 10*6/uL 4.6-6.2 [facility] Serum anion gap measurementO rdered By: Mello Briceño on 02-11-2024 Anion gap [Moles/Vol] 6 mmol/L 5-15 [facility] Serum or plasma calcium heather urement (mass/volume)Ordered By: Mello Briceño on 02-11-2024 Calcium [Mass/Vol] 9.4 mg/dL 8.5-10.1 [facility] Serum or plasma creatinine m easurement (mass/volume)Ordered By: Mello Briceño on 02-11-2024 Creatinine [Mass/Vol] 0.90 mg/dL 0.70-1.30 [facility] Comment on above: The validity of the calculated GFR & GFRAA in patients over 70 years has not been determined. Clinical correlation is essential. Serum or plasma urea nitroge n measurement (mass/volume)Ordered By: Mello Briceño on 02-11-2024 Urea nitrogen [Mass/Vol] 23 mg/dL High 7-18 [facility] Sodium levelOrdered By: Mello Briceño on 02-11-2024 Sodium [Moles/Vol] 140 mmol/L 136-145 [facility] Urinalysis, Completeon 02-10 BACTERIA 2+ /hpf Normal None Seen [facility] Comment on above: Order Comment: CLEAN CATCH Performed By: #### L 100.0100 #### [facility] [address] [place], [address] CA OX CRYSTAL RARE Normal [facility] Comment on above: Order Comment: CLEAN CATCH Performed By: #### L 100.0100 #### [facility] [address] [place], [address] EPI,SQUAMOUS 0-5 SEEN Normal 0-5 [facility] Comment on above: Order Comment: CLEAN CATCH Performed By: #### L 100.0100 #### [facility] [address] [place], [address] RBC > 100 SEEN Normal 0-5 [facility] Comment on above: Order Comment: CLEAN CATCH Performed By: #### L 100.0100 #### [facility] [address] [place], [address] WBC 50-100 SEEN Normal 0-5 [facility] Comment on above: Order Comment: CLEAN CATCH Performed By: #### L 100.0100 #### [facility] [address] [place], [address] Mucus Ql (Urine sed) 0 SEEN Normal [facility] Comment on above: Order Comment: CLEAN CATCH Performed By: #### L 100.0100 #### [facility] [address] [place], [address] Urine blood detectionOrdered By: Mello Briceño on 02-11-2024 Urine Occult Blood 250 /ul High Negative [facility] Urine clarityOrdered By: Rajwinder Briceño on 02-11-2024 Clarity (U) Cloudy Clear [facility] Urine color determinationOrd ered By: Mello Briceño on 02-11-2024 Color (U) Yellow Yellow [facility] Urine cultureOrdered By: Rajwinder Briceño on 02-11-2024 Bacteria identified Cx Nom (U) Staphylococcus epidermidis Abnormal [facility] Urine leukocyte esterase det ection by dipstickOrdered By: Mello Briceño on 02-11-2024 Leukocyte esterase Test strip Ql (U) 500 /ul High Negative [facility] Urine pHOrdered By: Mello turner on 02-11-2024 pH (U) 6.0 [pH] 5.0 - 8.0 [facility] Urine sediment bacteria coun t by microscopy (number/high power field)Ordered By: Mello Briceño on 02-11-2024 Bacteria LM.HPF (Urine sed) [#/Area] 2 /[HPF] None Seen [facility] Urine specific gravity measu rementOrdered By: Mello Briceño on 02-11-2024 Specific gravity (U) [Rel density] 1.020 1.002-1.030 [facility] Urobilinogen Ql (U)Ordered B y: Mello Briceño on 02-11-2024 Urobilinogen (U) [Mass/Vol] 1 mg/dL High Normal [facility] White blood cell (WBC) count Ordered By: Mello Briceño on 02-11-2024 WBC (Bld) [#/Vol] 10.0 10*3/uL 4.4-11.0 [facility] White blood cell countOrdere d By: Mello Briceño on 02-11-2024 Urine WBC 50-100 SEEN /hpf 0-5 [facility] CNPNon 02-05-2024 CNPN Telephone (WAYNE) -- RAMONITA EL ([id number]) 1940 M R Date Time Provider Department 02/05/24 KARLA BARON During your visit today, we recorded the following information about you: Ashley Grant, ROBERT 02/05/2024 8:16 AM Signed Patient was seen recently seen at [facility] on 02/01/24 for right shoulder pain. Pt [...] ended call. Will send this update to EC provider for update. Please contact patient if other recommendations are advised. 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 I did check with urology [facility] 02[facility]24 at [facility]. Patient called Dr Johnson and there first opening was 02/17 and that is why he was calling us for a sooner appointment , patient upset PCP would not remove sooner and declined to arrange his ER follow up Karla Baron APRN.FURNITURE ASSEMBLER 02/04/2024 5:40 PM Signed That is fine, [...] Date Reviewed: 02/01/2024 Reviewed by: Gus Sanchez APRN.FURNITURE ASSEMBLER - Fully Assessed Reason for Visit: Patient [...] 10/10/2022 D (more content not included)... Normal [facility] CNOVon 02-01-2024 CNOV Office Visit (WSTR ) -- RAMONITA EL ([id number]) 1940 M NFR Date Time Provider Department 02/01/24 8:30 [facility] During your visit today, we recorded the following information about you: Temperature Pulse Respiration Blood pressure 97.9 degrees 86/minute 18/minute 107/82 Weight 73.5 kg Gus Sanchez APRN.FURNITURE ASSEMBLER 02/01/2024 9:41 AM Signed Subjective HPI Nontoxic-appearing [...] any other injuries. No numbness or tingling. [id number]. No surgeries fractures previously. Past medical history prescription medications allergies reviewed. .Patient presents with: Pain (Shoulder Pain): R shoulder pain x1 day, pushed self out of chair and felt pop PAST MEDICAL HISTORY Diagnosis Date Acute myocardial infarction of anterolateral wall, episode of care unspecified 08/10/06 STENT placed [facility] Alcohol abuse 05/22/2013 Chronic anxiety 10/22/2017 [...] gesture Radius fracture 06/21/2013 See scanned documents [facility] Tobacco abuse 05/22/2013 Urinary calculus, [...] is not (more content not included)... Normal [facility] XR SHLDR >/=3V AP/LUPE AP/OTH R RTon [...] in the right shoulder as described above. Instructional Technologist: JUANCARLOS Transcribe Date/Time: Feb 01 2024 9:10A Dictated by : ELLIE JOSEPH MD This examination was interpreted and the report reviewed and electronically signed by: ELLIE JOSEPH MD on Feb 01 2024 9:14AM EST [id number] Normal [facility] XR Shoulder - right 3 Viewso n 02-01-2024 IMPRESSION: Degenera tive changes in the right shoulder as described above. Instructional Technologist: JUANCARLOS Transcribe Date/Time: Feb 01 2024 9:10A [...] soft tissue swelling. DIVISION OF RADIOLOGY Provider, [facility] - 02/01/2024 * * *Final Report* [...] in the right shoulder as described above. Instructional Technologist: JUANCARLOS Transcribe Date/Time: Feb 01 2024 9:10A Dictated by : ELLIE JOSEPH MD This examination was interpreted and the report reviewed and electronically signed by: ELLIE JOSEPH MD on Feb 01 2024 9:14AM EST [facility] Radiology Study observation (narrative) [facility] XR Shoulder - right 3 ViewsO rdered By: [facility] Provider on 02-01-2024 [facility] Absolute neutrophil countOrd ered By: Lindy Blanco on 01-30-2024 Neutrophils (Bld) [#/Vol] 9.6 10*3/uL High 2.0-7.7 [facility] Basic Metabolic Profile (BMP )on 01-30-2024 BUN/CRE 18.3 RATIO Normal 10-20 [facility] Comment on above: Performed By: #### L 9100.0100 #### [facility] [address] [place], [address] CA,Total 9.0 mg/dL Normal 8.5-10.1 [facility] Comment on above: Performed By: #### L 9100.0100 #### [facility] [address] [place], [address] Chloride [Moles/Vol] 102 mmol/L Normal 98-107 [facility] Comment on above: Performed By: #### L 9100.0100 #### [facility] [address] [place], [address] CO2 [Moles/Vol] 25.0 mmol/L Normal 21.0-32.0 [facility] Comment on above: Performed By: #### L 9100.0100 #### [facility] [address] [place], [address] Creatinine [Mass/Vol] 0.98 mg/dL Normal 0.70-1.30 [facility] Comment on above: Result Comment: The validity of the calculated GFR GFRAA in patients over 70 years has not been determined. Clinical correlation is essential. Performed By: #### L 9100.0100 #### [facility] [address] [place], [address] ECRCL 56.22 ml/min Normal [facility] Comment on above: Performed By: #### L 9100.0100 #### [facility] [address] [place], [address] EST GFR - AA 94 mL/min Normal >60 [facility] Comment on above: Result Comment: Afri can Kosovan GFR Calc Performed By: #### L 00.0100 #### [facility] [address] [place], [address] GAP 6 Normal 5-15 [facility] Comment on above: Performed By: #### L 9100.0100 #### [facility] [address] [place], [address] GFR/1.73 sq M.predicted among non-blacks MDRD (S/P/Bld) [Vol rate/Area] 78 mL/min/{1.73_m2} Normal >60 [facility] Comment on above: Result Comment: Non- GFR Calc Performed By: #### L 9100.0100 #### [facility] [address] [place], [address] Glucose [Mass/Vol] 141 mg/dL High 74-106 [facility] Comment on above: Result Comment: Fast ing Glucose result greater than or equal to 126 mg/dL suggests DIABETES MELLITUS per A.D.A. criteria. Performed By: #### L 9100.0100 #### [facility] [address] [place], [address] Potassium [Moles/Vol] 4.7 mmol/L Normal 3.5-5.1 [facility] Comment on above: Performed By: #### L 9100.0100 #### [facility] [address] [place], [address] Sodium [Moles/Vol] 133 mmol/L Low 136-145 [facility] Comment on above: Performed By: #### L 9100.0100 #### [facility] [address] [place], [address] Urea nitrogen [Mass/Vol] 18 mg/dL Normal 7-18 [facility] Comment on above: Performed By: #### L 9100.0100 #### [facility] [address] [place], [address] Basophil percentageOrdered B y: Remus Ungur on 01-30-2024 Basophils/100 WBC (Bld) 0.5 % 0-1 [facility] Bilirubin Test strip Ql (U)O rdered By: Remus Ungur on 01-30-2024 Bilirubin Ql (U) Negative Negative [facility] Blood urea nitrogen (BUN)/cr eatinine ratioOrdered By: Remus Ungur on 01-30-2024 Urea nitrogen/Creatinine [Mass ratio] 18.3 mg/mg 10- [facility] CBC W/Diff, Automatedon 12- Absolute Lymph 1.06 X10 3/uL Normal 0.83-4.51 [facility] Comment on above: Performed By: #### L 100.0100 #### [facility] [address] [place], [address] Absolute Neut 9.6 X10 3/uL High 2.0-7.7 [facility] Comment on above: Performed By: #### L 100.0100 #### [facility] [address] [place], [address] Basophils/100 WBC (Bld) 0.5 % Normal 0-1 [facility] Comment on above: Performed By: #### L 100.0100 #### [facility] [address] [place], [address] Eosinophils/100 WBC (Bld) 0.2 % Normal 0-5 [facility] Comment on above: Performed By: #### L 100.0100 #### [facility] [address] [place], [address] Erythrocyte distribution width (RBC) [Ratio] 13.1 % Normal 11.6-14.6 [facility] Comment on above: Performed By: #### L 100.0100 #### [facility] [address] [place], [address] Hematocrit (Bld) [Volume fraction] 45.2 % Normal 40-54 [facility] Comment on above: Performed By: #### L 100.0100 #### [facility] [address] [place], [address] Hemoglobin (Bld) [Mass/Vol] 15.9 g/dL Normal 13.0-16.5 [facility] Comment on above: Performed By: #### L 100.0100 #### [facility] [address] [place], [address] IG% 0.400 Normal 0.0-0.9 [facility] Comment on above: Result Comment: IG% - Immature Granulocytes (promyelocytes, myelocytes and metamyelocytes) > 1% indicates that a LEFT SHIFT is Present. Performed By: #### L 100.0100 #### [facility] [address] [place], [address] Lymphocytes/100 WBC (Bld) 9.3 % Low 19-41 [facility] Comment on above: Performed By: #### L 100.0100 #### [facility] [address] [place], [address] MCH (RBC) [Entitic mass] 31.2 pg Normal 27.0-32.0 [facility] Comment on above: Performed By: #### L 100.0100 #### [facility] [address] [place], [address] MCHC (RBC) [Mass/Vol] 35.2 g/dL Normal 32-36 [facility] Comment on above: Performed By: #### L 100.0100 #### [facility] [address] [place], [address] MCV (RBC) [Entitic vol] 88.6 fL Normal 80-94 [facility] Comment on above: Performed By: #### L 100.0100 #### [facility] [address] [place], [address] Monocytes/100 WBC (Bld) 5.3 % Normal 0-10 [facility] Comment on above: Performed By: #### L 100.0100 #### [facility] [address] [place], [address] Neutrophils/100 WBC (Bld) 84.3 % High 47-70 [facility] Comment on above: Performed By: #### L 100.0100 #### [facility] [address] [place], [address] Nucleated RBC (Bld) [#/Vol] 0 10*3/uL Normal 0-5 [facility] Comment on above: Performed By: #### L 100.0100 #### [facility] [address] [place], [address] Platelet mean volume (Bld) [Entitic vol] 10.5 fL Normal 6.2-12.0 [facility] Comment on above: Performed By: #### L 100.0100 #### [facility] [address] [place], [address] Platelets (Bld) [#/Vol] 274 10*3/uL Normal 150-450 [facility] Comment on above: Performed By: #### L 100.0100 #### [facility] [address] [place], [address] RBC (Bld) [#/Vol] 5.10 10*6/uL Normal 4.6-6.2 [facility] Comment on above: Performed By: #### L 100.0100 #### [facility] [address] [place], [address] RDW SD 42.7 fl Normal 35.1-43.9 [facility] Comment on above: Performed By: #### L 100.0100 #### [facility] [address] [place], [address] WBC (Bld) [#/Vol] 11.4 10*3/uL High 4.4-11.0 [facility] Comment on above: Performed By: #### L 100.0100 #### [facility] [address] [place], [address] Carbon dioxide measurementOr dered By: Lindy Blanco on 01-30-2024 CO2 [Moles/Vol] 25.0 mmol/L 21.0-32.0 [facility] Chloride measurementOrdered By: Lindy Blanco on 01-30-2024 Chloride [Moles/Vol] 102 mmol/L 98-107 [facility] Emergency Department Summary on 01-30-2024 Emergency Department Summary [facility] Medical Records Department [address] [place] [address] Emergency Department Summary 01/30/24 MR#: [id number] Acct: [id number] Name: RAMONITA EL Rep #: [id number] : 1940 83 From: Lindy Blanco DO [...] of a cardiac stent. Patient on Flomax. [facility] Medical History Alcohol use Prostate [...] 2+ throughout (more content not included)... Normal [facility] Eosinophil percentageOrdered By: Lindy Blanco on 01-30-2024 Eosinophils/100 WBC (Bld) 0.2 % 0-5 [facility] Epithelial cells.squamous LM Ql (Urine sed)Ordered By: Lindy Blanco on 01-30-2024 Epithelial cells.squamous LM.HPF (Urine sed) [#/Area] 0 /[HPF] 0-5 [facility] Erythrocyte distribution wid th (RBC) [Ratio]Ordered By: Zuleykaus Bella on 01-30-2024 Erythrocyte distribution width (RBC) [Entitic vol] 42.7 fL 35.1-43.9 [facility] Erythrocyte distribution wid th ratioOrdered By: Lindy Blanco on 01-30-2024 Erythrocyte distribution width (RBC) [Ratio] 13.1 % 11.6-14.6 [facility] Estimated glomerular filtrat ion rate (GFR) AmericanOrdered By: Lindy Blanco on 01-30-2024 Estimated GFR (MDRD) Amer 94 mL/min >60 [facility] Comment on above: GFR Calc Estimation of creatinine john aranceOrdered By: Lindy Blanco on 01-30-2024 Estimated Creatinine Clearance Calc 56.22 ml/min [facility] Glomerular filtration rate ( GFR) estimationOrdered By: Lindy Blanco on 01-30-2024 Estimated GFR (MDRD) Non-Af Amer 78 mL/min >60 [facility] Comment on above: Non- GFR Calc Glucose Ql (U)Ordered By: Krystyna Blanco on 01-30-2024 Urine Glucose (UA) Normal mg/dl Normal [facility] Glucose measurementOrdered B y: Lindy Blanco on 01-30-2024 Glucose [Mass/Vol] 141 mg/dL High 74-106 [facility] Comment on above: Fasting Glucose resu lt greater than or equal to 126 mg/dL suggests DIABETES MELLITUS per A.D.A. criteria. Hematocrit Auto (Bld) [Volum e fraction]Ordered By: Lindy Blanco on 01-30-2024 Hematocrit (Bld) [Volume fraction] 45.2 % 40-54 [facility] Hemoglobin measurementOrdere d By: Lindy Blanco on 01-30-2024 Hemoglobin (Bld) [Mass/Vol] 15.9 g/dL 13.0-16.5 [facility] Immature granulocytes/100 WB C Auto (Bld)Ordered By: Lindy Blanco on 01-30-2024 Immature granulocytes/100 WBC (Bld) 0.400 % 0.0-0.9 [facility] Comment on above: IG% - Immature Granu locytes (promyelocytes, myelocytes and metamyelocytes) > 1% indicates that a LEFT SHIFT is Present. Ketones Test strip Ql (U)Ord ered By: Lindy Blanco on 01-30-2024 Ketones Ql (U) Negative Negative [facility] Lymphocytes Auto (Unsp spec) [#/Vol]Ordered By: Lindy Blanco on 01-30-2024 Lymphocytes (Bld) [#/Vol] 1.06 10*3/uL 0.83-4.51 [facility] Lymphocytes/100 WBC Auto (Un sp spec)Ordered By: Lindy Blanco on 01-30-2024 Lymphocytes/100 WBC (Bld) 9.3 % Low 19-41 [facility] MCV (mean corpuscular volume ) determinationOrdered By: Lindy Blanco on 01-30-2024 MCV (RBC) [Entitic vol] 88.6 fL 80-94 [facility] Mean corpuscular hemoglobin (MCH) determinationOrdered By: Lindy Blanco on 01-30-2024 MCH (RBC) [Entitic mass] 31.2 pg 27.0-32.0 [facility] Mean corpuscular hemoglobin concentration (MCHC) determinationOrdered By: Lindy Blanco on 01-30-2024 MCHC (RBC) [Mass/Vol] 35.2 g/dL 32-36 [facility] Mean platelet volume determi nationOrdered By: Lindy Blanco on 01-30-2024 Platelet mean volume (Bld) [Entitic vol] 10.5 fL 6.2-12.0 [facility] Microscopic analysis of urin e for red blood cells (RBC)Ordered By: Lindy Blanco on 01-30-2024 Urine RBC 0 SEEN /hpf 0-5 [facility] Monocyte percentageOrdered B y: Lindy Blanco on 01-30-2024 Monocytes/100 WBC (Bld) 5.3 % 0-10 [facility] Mucus LM Ql (Urine sed)Order ed By: Lindy Blanco on 01-30-2024 Mucus Ql (Urine sed) 0 SEEN /hpf [facility] Neutrophil percentageOrdered By: Lindy Blanco on 01-30-2024 Neutrophils/100 WBC (Bld) 84.3 % High 47-70 [facility] Nitrite Test strip Ql (U)Ord ered By: Lindy Blanco on 01-30-2024 Nitrite Ql (U) Negative Negative [facility] Nucleated red blood cell per centageOrdered By: Lindy Blanco on 01-30-2024 Nucleated RBC/100 WBC (Bld) [Ratio] 0 % 0-5 [facility] Platelet countOrdered By: Krystyna Blanco on 01-30-2024 Platelets (Bld) [#/Vol] 274 10*3/uL 150-450 [facility] Potassium measurementOrdered By: Lindy Blanco on 01-30-2024 Potassium [Moles/Vol] 4.7 mmol/L 3.5-5.1 [facility] Protein Test strip Ql (U)Ord ered By: Lindy Blanco on 01-30-2024 Protein Ql (U) Negative Negative [facility] RBC Auto (Bld) [#/Vol]Ordere d By: Lindy Blanco on 01-30-2024 RBC (Bld) [#/Vol] 5.10 10*6/uL 4.6-6.2 [facility] Serum anion gap measurementO rdered By: Lindy Blanco on 01-30-2024 Anion gap [Moles/Vol] 6 mmol/L 5-15 [facility] Serum or plasma calcium heather urement (mass/volume)Ordered By: Lindy Bella on 01-30-2024 Calcium [Mass/Vol] 9.0 mg/dL 8.5-10.1 [facility] Serum or plasma creatinine m easurement (mass/volume)Ordered By: Lindy Dubonjimi on 01-30-2024 Creatinine [Mass/Vol] 0.98 mg/dL 0.70-1.30 [facility] Comment on above: The validity of the calculated GFR & GFRAA in patients over 70 years has not been determined. Clinical correlation is essential. Serum or plasma urea nitroge n measurement (mass/volume)Ordered By: Lindy Bella on 01-30-2024 Urea nitrogen [Mass/Vol] 18 mg/dL 7-18 [facility] Sodium levelOrdered By: Zuleykakourtney debbie Bella on 01-30-2024 Sodium [Moles/Vol] 133 mmol/L Low 136-145 [facility] Urinalysis, Completeon 01-29 BACTERIA 0 SEEN Normal None Seen [facility] Comment on above: Order Comment: BHARATH TER SPECIMEN Performed By: #### L 9100.0100 #### [facility] [address] [place], [place], [id number] EPI,SQUAMOUS 0 SEEN Normal 0-5 [facility] Comment on above: Order Comment: BHARATH TER SPECIMEN Performed By: #### L 9100.0100 #### [facility] [address] [place], [address] Mucus Ql (Urine sed) 0 SEEN Normal [facility] Comment on above: Order Comment: BHARATH TER SPECIMEN Performed By: #### L 9100.0100 #### [facility] [address] [place], [address] RBC 0 SEEN Normal 0-5 [facility] Comment on above: Order Comment: BHARATH TER SPECIMEN Performed By: #### L 9100.0100 #### [facility] [address] [place], [address] WBC 0 SEEN Normal 0-5 [facility] Comment on above: Order Comment: BHARATH TER SPECIMEN Performed By: #### L 9100.0100 #### [facility] [address] [place], [address] Urine blood detectionOrdered By: Remus Blanco on 01-30-2024 Urine Occult Blood Negative Negative [facility] Urine clarityOrdered By: Rem us Bella on 01-30-2024 Clarity (U) Clear Clear [facility] Urine color determinationOrd ered By: Lindy Blanco on 01-30-2024 Color (U) Yellow Yellow [facility] Urine leukocyte esterase det ection by dipstickOrdered By: Lindy Blanco on 01-30-2024 Leukocyte esterase Test strip Ql (U) Negative Negative [facility] Urine pHOrdered By: Remus Un gur on 01-30-2024 pH (U) 6.0 [pH] 5.0 - 8.0 [facility] Urine sediment bacteria coun t by microscopy (number/high power field)Ordered By: Lindy Blanco on 01-30-2024 Bacteria LM.HPF (Urine sed) [#/Area] 0 /[HPF] None Seen [facility] Urine specific gravity measu rementOrdered By: Lindy Blanco on 12-25-2024 Specific gravity (U) [Rel density] 1.015 1.002-1.030 [facility] Urobilinogen Ql (U)Ordered B y: Lindy Blanco on 01-30-2024 Urine Urobilinogen Normal mg/dl Normal [facility] White blood cell (WBC) count Ordered By: Lindy Blanco on 01-30-2024 WBC (Bld) [#/Vol] 11.4 10*3/uL High 4.4-11.0 [facility] White blood cell countOrdere d By: Lindy Blanco on 01-30-2024 Urine WBC 0 SEEN /hpf 0-5 [facility] CNOVon 01-21-2024 CNOV Office Visit (FAMPWS ) -- RAMONITA EL ([id number]) 1940 M NFR Date Time Provider Department 01/21/24 1:00 PM DAVE MCCRAY During your visit today, we recorded the following information about you: Pulse Respiration Blood pressure Weight 69/minute 16/minute 162/71 73.5 kg Dave Mccray APRN.[employer]ER 01/21/2024 1:33 PM Signed Chief Complaint Patient presents with: ER F/U HPI Ramonita Marel is a 83 year old male who presents here today for ER Follow Up. Patient here for emergency room follow-up. Patient went to [facility] on 01/15 for complaints of bleeding. Patient [...] HYDROXYZINE HCL 25 MG TABLET Dave Mccray APRN.FURNITURE ASSEMBLER RTO in 1 months, sooner if needed. This note was partly generated using [employer] voice recognition dictation and may contain some [...] for anxiet (more content not included)... Normal [facility] Emergency Department Summary on 01-16-2024 Emergency Department Summary [facility] Medical Records Department [address] [place] [address] Emergency Department Summary 01/16/24 MR#: [id number] Acct: [id number] Name: SIENNARAMONITA Rep #: [id number] : 1940 83 From: Toribio Yeh DO [...] he looked down there was blood present [facility] Medical History Alcohol use Prostate [...] He reported (more content not included)... Normal [facility] CNOVon 01-02-2024 CNOV Office Visit (GENSWS ) -- RAMONITA EL ([id number]) 1940 M [facility] Date Time Provider Department 01/02/24 11:00 AM TOMEKA MCLAUGHLIN [facility] During your visit today, we recorded the following information about you: Pulse Blood pressure Weight 65/minute 170/73 72.5 kg Tomeka Mclaughlin APRN.[facility] 01/02/2024 11:02 AM Signed FOLLOW UP VISIT - ENDOSCOPY Ramonita El 1940 [id number] REFERRING PHYSICIAN: Star Grande [address] [facility] [address] Ramonita El is a patient I am [...] needed for worsening/no improvement. _ Tomeka Mclaughlin APRN.FURNITURE ASSEMBLER Referring Provider: STAR GRANDE [[id number]] Allergies As of Date: 01/02/2024 Noted Allergy [...] Sinus con (more content not included)... Normal [facility] [id number] 12-26-2023 [id number] HNO ID: [id number] Author: DARCY BENNETT RN Service: ? Author Type: Registered Nurse Type: [id number] Filed: 12/26/2023 12:54 Note Text: The patient received a copy of Colonoscopy discharge instructions that contain information for how to contact the physician who performed the procedure and when to seek medical care. Normal [facility] Colonoscopyon 12-26-2023 Colonoscopy Peter [facility] Gastrointestinal Endoscopy Patient Name: Ramonita El Procedure [...] patient. Proce (more content not included)... Normal [facility] EGD Study observation Hans [facility] Patient Name: Ramonita El [...] and physical. Referring Physician: Tomeka Mclaughlin (Referring ) Medicines: Midazolam 4 mg IV, Fentanyl 100 [...] 1 week. Procedure Code(s): --- Professional --- 90802, Esophagogastroduodenoscopy , flexible, transoral; with biopsy, single or multiple G0500, Moderate sedation services provided by the (more content not included)... PROVATION [facility] Flexible sigmoidoscopy study on 12-26-2023 [facility] Gastrointestinal Endoscopy Patient Name: Ramonita El [...] of t (more content not included)... PROVATION [facility] HISTORY PHYSICALon HISTORY PHYSICAL HNO ID: [id number] Author: STAR GRANDE MD Service: General Surgery Author Type: Physician Type: H&P Filed: 12/26/2023 10:36 Note Text: HISTORY AND PHYSICAL Ramonita El : 1940 REFERRING PHYSICIAN: Danae Fuentes [address] [facility] [address] CHIEF COMPLAINT: No chief complaint on file. [...] a history of ulcers/ peptic ulcer disease. Ramontia denies family history of colon issues. Ramonita has a hx of CAD with stents 2006. Last stress test 2020. EF of 60%. Doesn't follow with cardiology. Takes plavix. Denies CP, SOB, dizziness, palpitations, syncope, edema, recent hospitalizations Ramonita has undergone prior endoscopy. Last colonoscopy AND EGD 06/2015 at [facility] with Dr. Lezama. Sedation: Fentanyl 50 [...] Descending colon, biopsy (D) - Tubular adenoma. [facility]/chelsie/06/22/15 CURRENT MEDICATIONS Current Outpatient Medications Medication Sig [...] episode of care unspecified 08/10/06 STENT placed [facility] Alcohol abuse 05/22/2013 Chronic anxiety 10/22/2017 [...] gesture Radius fracture 06/21/2013 See scanned documents [facility] Tobacco abuse 05/22/2013 Urinary calculus, [...] W/POSTOP SE (more content not included)... Normal [facility] NURSING PROGon 12-26-2023 NURSING PROG HNO ID: [id number] Author: DARCY BENNETT RN Service: ? Author [...] on left side. No family present. Normal [facility] No Panel Informationon 12-25 Radiology Study observation (narrative) [facility] SURGICAL PATHOLOGYon 024 CASE REPORT Normal [facility] Comment on above: Order Comment: Jh del cid Type: BLOOD SPECIMEN Ordering Facility: [facility] Address: [address] [place] [address] Result Comment: Surg ica Pathology Report Case: [id number] Authorizing Provider: Star Grande MD Collected: 12/26/2023 11:55 AM Ordering Location: Ambulatory Surgery Received: 12/26/2023 02:50 PM Pathologist: Brandon Solis MD Specimens: A) - Small Bowel, Duodenum, Biopsy B) - Stomach, Antrum, Biopsy, Antral for H/H C) - Colon, Cecum, Polyp D) - Colon, Ascending Polyp, polyps x2 E) - Colon, Sigmoid, Polyp Performed By: #### P SAS1 #### [facility] CLIA [id number] [address] [place] [address] [place] FINAL DIAGNOSIS Normal [facility] Comment on above: Order Comment: Jh del cid Type: BLOOD SPECIMEN Ordering Facility: [facility] Address: [address] [place] [address] Result Comment: A. D uodenum, biopsy: - Duodenal mucosa with no significant pathologic changes. B. Stomach, biopsy: - Antral mucosa with minimal chronic inflammation. - No evidence of H. pylori. C. Cecum, polypectomy: - Tubular adenoma. D. Ascending colon, polypectomy: - Fragments of tubular adenoma. E. Sigmoid, polypectomy: - Tubular adenoma. Performed By: #### P SAS1 #### [facility] CLIA [id number] [address] [place] [address] [place] FINAL PERFORMING LAB Normal [facility] Comment on above: Order Comment: Speci men Type: BLOOD SPECIMEN Ordering Facility: [facility] Address: [address] [place] [address] Result Comment: Diag nostic interpretation performed at [facility], [address], [place] [address] CLIA# [id number] Pipe Coremaker: Ca Barber M.D. Performed By: #### P SAS1 #### [facility] CLIA [id number] [address] [place] [address] [id number] [place] GROSS DESCRIPTION Normal [facility] Comment on above: Order Comment: Speci men Type: BLOOD SPECIMEN Ordering Facility: [facility] Address: [address] [place] [address] Result Comment: A. S mall Bowel, Duodenum, [...] 2023 9:23 PM Gross examination performed at [facility], [address] [place] [address] E. Colon, Sigmoid, Polyp Received in formalin is one segment of red-brown polypoid tissue measuring 1.3 x 0.7 x 0.6 cm. No stalk is present. The line of resection is noted. The specimen is bisected and totally submitted in one cassette. Gross examination performed at [facility], [address] [place] [address] December 26, 2023 9:19 PM Performed By: #### P SAS1 #### [facility] CLIA [id number] [address] [place] [address] [place] Upper GI endoscopy --2 024 Upper GI endoscopy [facility] Gastrointestinal Endoscopy Patient Name: Ramonita El [...] 1 week. Procedure Code(s): --- Professional --- 70158, Esophagogastroduodenoscopy , flexible, transoral; with biopsy, single or multiple G0500, Moderate sedation services provided by the same physician or other qualified health childcare worker performing a gastrointestinal endoscopic service that sedation supports, requiring the presence of an independent trained observer to assist in the monitoring of the patient's level of consciousness and physiological status; initial 15 minutes of intra-service time; patient age 5 years or older (additional time may be reported with 86173, as appropriate) [address]655, Moderate sedation; each additional 15 minutes intraservice time CPT copyright 202 [employer]. All rights reserved. The codes documented in this report are preliminary and upon metal spraying machine operator review may be revised to meet current [...] Blood Loss: Estimated blood loss: none. Normal [facility] CNOVon 12-06-2023 CNOV Office Visit (GENSWS ) -- RAMONITA EL ([id number]) 1940 M NFR Date Time Provider Department 12/06/23 1:30 PM TOMEKA MCLAUGHLIN During your visit today, we recorded the following information about you: Temperature Pulse Blood pressure Weight 97.1 degrees 69/minute 152/63 74.2 kg Height 1.702 m Tomeka Mclaughlin APRN.FURNITURE ASSEMBLER 12/06/2023 2:19 PM Signed HISTORY AND PHYSICAL Ramonita El : 1940 REFERRING PHYSICIAN: Danae Fuentes [address] [facility] [address] CHIEF COMPLAINT: No chief complaint on file. [...] endoscopy. Last colonoscopy AND EGD 06/2015 at [facility] with Dr. Lezama. Sedation: Fentanyl 50 [...] Descending colon, biopsy (D) - Tubular adenoma. [facility]/chelsie/06/22/15 Current Outpatient Medications Medication Sig metoprolol tartrate, [...] episode of care unspecified 08/10/06 STENT placed [facility] Alcohol abuse 05/22/2013 Chronic anxiety 10/22/2017 [...] gesture Radius fracture 06/21/2013 See scanned documents [facility] Tobacco abuse 05/22/2013 Urinary calculus, [...] fragment PA (more content not included)... 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 RAM[facility] ([id number]) 1940 NF Date Time Provider Department 12/03/23 I[facility] During your visit today, we recorded the following information about you: Nadine Serrano MA 12/03/2023 4:03 PM Signed ----- Message from Danae Fuentes sent at 12/03/2023 3:24 PM EDT ----- Please let pt. Know that colon screen was positive for blood. Will need a colonoscopy. Nadine Serrano MA 12/03/2023 4:05 PM Signed Pt notified. 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] 08/10/2006 Diagnosed: 10/10/2022 Vascular disorder of extremity (HCC) [I73.9] 10/10/2022 Diagnosed: 10/10/2022 Encounter Status:Closed by NADINE SERRANO on 12/03/23 [facility] SIENNARAMONITA WHITESIDE ([id number]) 1940 M NFR Date Time Provider Department 12/03/23 Ida [facility] During your visit today, we recorded the following information about you: Ravi RinconElsa 12/03/2023 4:27 PM Signed Ramoniat is calling Ida [facility] PA-C today to report a Rectal Problem (Blood in stool) and FYI-No Action Needed Patient states that he has an appointment with a colon doctor on Sunday12-05-23 Patient has been identified by name and birthdate. 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 Patient reports that the tizanidine is not working. Patient has been identified by name and birthdate. Duration of symptoms: N/A Person calling: self Call patient at: at home [phone] (home) Was an appointment scheduled: No Closing [...] left [D3 (more content not included)... Normal [facility] XR Chest PA and Lateralon IMPRESSION: Bibasilar atelectasis/scarring. Instructional Technologist: JUANCARLOS Transcribe Date/Time: Feb 02 2023 8:43A Dictated by : ELLIE JOSEPH MD This examination was interpreted and the report reviewed and electronically signed by: ELLIE JOSEPH MD on Feb 02 2023 8:45AM [facility] DIVISION OF RADIOLOGY * * *Final Report* [...] changes. DIVISION OF RADIOLOGY Provider, Suyapa Betina [facility] - 02/02/2023 * * *Final Report* * [...] shows degenerative changes. IMPRESSION IMPRESSION: Bibasilar atelectasis/scarring. Instructional Technologist: JUANCARLOS Transcribe Date/Time: Feb 02 2023 8:43A Dictated by : ELLIE JOSEPH MD This examination was interpreted and the report reviewed and electronically signed by: ELLIE JOSEPH MD on Feb 02 2023 8:45AM EST [facility] Radiology Study observation (narrative) [facility] XR Chest PA and LateralOrder ed By: Ccf Provider on 02-02-2023 [facility] XR Lumbar spine 3 Viewson IMPRESSION: DEGENERATIVE CHANGE AND ALIGNMENT ABNORMALITIES DESCRIBED Instructional Technologist: JUANCARLOS Transcribe Date/Time: Oct 11 2022 2:10P Dictated by : STACY MELLO MD This examination was interpreted and the report reviewed and electronically signed by: STACY MELLO MD on Oct 11 2022 2:13PM [facility] DIVISION OF RADIOLOGY * * *Final Report* [...] focal bony abnormality DIVISION OF RADIOLOGY Provider, [facility] - 10/11/2022 * * *Final Report* [...] IMPRESSION: DEGENERATIVE CHANGE AND ALIGNMENT ABNORMALITIES DESCRIBED Instructional Technologist: PSCAlysia Transcribe Date/Time: Oct 11 2022 2:10P Dictated by : STACY MELLO MD This examination was interpreted and the report reviewed and electronically signed by: STACY MELLO MD on Oct 11 2022 2:13PM EST [facility] XR Lumbar spine 3 ViewsOrder ed By: Ccf Provider on 10-11-2022 [facility] XR Lumbar spine 3 Viewson Radiology Study observation (narrative) [facility] Basophil percentageOrdered B y: Willis Mera on 09-08-2022 Basophil percentage < 0.9 mg/dL 0.70-1.30 [facility] No Panel InformationOrdered By: Willis Mera on 09-08-2022 Bedside Estimated GFR (eGFR) > 60.0000 mL/min >60 [facility] STREP A MOLECULAR (POC)on Procedural Control Valid [facility] Strep A (POCT) Negative Negative [facility] No Panel Informationon 01-01 Ethyl Alcohol Level < 3.0 mg/dL [facility] Work Phone: Comment on above: The serum:whole bloo d ethanol ratio is approximately 1.14and varies slightly with hematocrit. Medical Alcohol reference interval and critical value innon-tolerant individuals; 50 - 100 Impairment 100 Intoxication 100 - 250 Severe Poisoning 250 - 400 Deep/possible fatal coma Absolute lymphocyte counton 12-31-2021 Lymphocytes Auto (Unsp spec) [#/Vol] 0.95 10*3/uL 0.83-4.51 [facility] Work Phone: Basophil percentageon 2021 Basophils/100 WBC (Bld) 0.5 % 0-1 [facility] Work Phone: Bilirubin [Mass/Vol] 0.40 mg/dL 0.20-1.00 [facility] Work Phone: Comment on above: For patients on eltr ombopag therapy, use of Dimension Cordell TBIL is not recommended. Chloride [Moles/Vol] 107 mmol/L 98-107 [facility] Work Phone: Eosinophils/100 WBC (Bld) 0.3 % 0-5 [facility] Work Phone: Glucose [Mass/Vol] 150 mg/dL 74-106 [facility] Work Phone: Comment on above: Fasting Glucose resu lt greater than or equal to 126 mg/dL suggests DIABETES MELLITUS per A.D.A. criteria. Neutrophils (Bld) [#/Vol] 11.6 10*3/uL 2.0-7.7 [facility] Work Phone: Neutrophils/100 WBC (Bld) 87.9 % 47-70 [facility] Work Phone: Potassium [Moles/Vol] 3.6 mmol/L 3.5-5.1 [facility] Work Phone: Protein [Mass/Vol] 6.7 g/dL 6.4-8.2 [facility] Work Phone: Sodium [Moles/Vol] 141 mmol/L 136-145 [facility] Work Phone: [phone] WBC (Bld) [#/Vol] 13.2 10*3/uL 4.4-11.0 [facility] Work Phone: [phone] Blood erythrocytes count (nu mber/volume)on 12-31-2021 RBC (Bld) [#/Vol] 4.96 10*6/uL 4.6-6.2 [facility] Work Phone: Blood hemoglobin measurement (mass/volume)on 12-31-2021 Hemoglobin (Bld) [Mass/Vol] 16.7 g/dL 13.0-16.5 [facility] Work Phone: Blood lymphocytes/100 leukoc yteson 12-31-2021 Lymphocytes/100 WBC (Bld) 7.2 % 19-41 [facility] Work Phone: Blood monocytes/100 leukocyt eson 12-31-2021 Monocytes/100 WBC (Bld) 3.7 % 0-10 [facility] Work Phone: Blood platelet mean volumeon 12-31-2021 Platelet mean volume (Bld) [Entitic vol] 10.9 fL 6.2-12.0 [facility] Work Phone: Determination of erythrocyte mean corpuscular volume (MCV)on 12-31-2021 MCV (RBC) [Entitic vol] 91.5 fL 80-94 [facility] Work Phone: Hematocrit Auto (Bld) [Volum e fraction]on 12-31-2021 Hematocrit (Bld) [Volume fraction] 45.4 % 40-54 [facility] Work Phone: Laboratory - Chemistry and C hemistry - challengeon 12-31-2021 ALP [Catalytic activity/Vol] 85 U/L 45-117 [facility] Work Phone: ALT [Catalytic activity/Vol] 27 U/L 16-61 [facility] Work Phone: CO2 [Moles/Vol] 23.0 mmol/L 21.0-32.0 [facility] Work Phone: Globulin (S) [Mass/Vol] 3.3 g/dL 2.2-4.2 [facility] Work Phone: Urea nitrogen/Creatinine [Mass ratio] 20.0 mg/mg 10-20 [facility] Work Phone: Laboratory - Drug toxicology on 12-31-2021 Amphetamines Ql (U) Negative <1000 ng/mL [facility] Work Phone: Benzodiazepines Ql (U) Negative < 200 ng/mL [facility] Work Phone: Cannabinoids Screen Ql (U) Negative < 50 ng/mL [facility] Work Phone: Cocaine Ql (U) Negative < 300 ng/mL [facility] Work Phone: Opiates Ql (U) Negative < 300 ng/mL [facility] Work Phone: Laboratory - Hematology and Cell countson 12-31-2021 Erythrocyte distribution width (RBC) [Entitic vol] 41.6 fL 35.1-43.9 [facility] Work Phone: Erythrocyte distribution width (RBC) [Ratio] 12.5 % 11.6-14.6 [facility] Work Phone: Immature granulocytes/100 WBC (Bld) 0.400 % 0.0-0.9 [facility] Work Phone: Comment on above: IG% - Immature Granu locytes (promyelocytes, myelocytes and metamyelocytes) > 1% indicates that a LEFT SHIFT is Present. MCH (RBC) [Entitic mass] 33.7 pg 27.0-32.0 [facility] Work Phone: Nucleated RBC/100 WBC (Bld) [Ratio] 0 % 0-5 [facility] Work Phone: MCHC Auto (RBC) [Mass/Vol]on 12-31-2021 MCHC (RBC) [Mass/Vol] 36.8 g/dL 32-36 [facility] Work Phone: No Panel Informationon 12-31 MDMA (Ecstasy) Screen Negative < 500 ng/mL [facility] Work Phone: Urine Barbiturates Screen Negative < 200 ng/mL [facility] Work Phone: Urine Drug Screen Comment [facility] Work Phone: Comment on above: CONFIRMATORY TESTING [...] Methadone Screen Negative < 300 ng/mL [facility] Work Phone: Estimated Creatinine Clearance Calc 63.42 ml/min [facility] Work Phone: Estimated GFR (MDRD) Amer 92 mL/min >60 [facility] Work Phone: Comment on above: GFR Calc Estimated GFR (MDRD) Non-Af Amer 76 mL/min >60 [facility] Work Phone: Comment on above: Non- GFR Calc Platelets bldon 12-31-2021 Platelets (Bld) [#/Vol] 213 10*3/uL 150-450 [facility] Work Phone: Serum or plasma albumin heather urement (mass/volume)on 12-31-2021 Albumin [Mass/Vol] 3.4 g/dL 3.2-5.0 [facility] Work Phone: Serum or plasma albumin/glob ulin mass ratioon 12-31-2021 Albumin/Globulin [Mass ratio] 1.0 {ratio} 0.9-2.4 [facility] Work Phone: Serum or plasma calcium heather urement (mass/volume)on 12-31-2021 Calcium [Mass/Vol] 9.4 mg/dL 8.5-10.1 [facility] Work Phone: Serum or plasma creatinine m easurement (mass/volume)on 12-31-2021 Creatinine [Mass/Vol] 1.00 mg/dL 0.70-1.30 [facility] Work Phone: Comment on above: The validity of the calculated GFR & GFRAA in patients over 70 years has not been determined. Clinical correlation is essential. Serum or plasma urea nitroge n measurement (mass/volume)on 12-31-2021 Urea nitrogen [Mass/Vol] 20 mg/dL 7-18 [facility] Work Phone: Thin prep Papanicolaou smear with manual screeningon 12-31-2021 Thin prep Papanicolaou smear with manual screening 18 U/L 15-37 [facility] Work Phone: Thin prep Papanicolaou smear with manual screening 11 5-15 [facility] Work Phone: Urine phencyclidine (PCP) de tectionon 12-31-2021 Phencyclidine Ql (U) Negative < 25 ng/mL [facility] Work Phone: Vital Signs Date Time Vital Sign Value Performing Clinician Facility 11-14-2024 10:31-0400 Body height 172.72 cm Karla Roperagen [employer]AIR[employer]C Work Phone: [facility] 11-14-2024 10:31-0400 Body mass index (BMI) [Ratio] 23.8 kg/m2 Karla Haagen VICE CHAIR-C Work Phone: [facility] 11-14-2024 10:31-0400 Body weight 70.93 kg Karla Haagen [employer]ICE CHAIR-C Work Phone: 6(019)775-699423 [place] [address] 10-09-2024 09:36-0400 Body height 172.72 cm Karla Haagen VICE CHAIR-C Work Phone: 4(377)943-991923 [place] [address] 10-09-2024 09:36-0400 Body mass index (BMI) [Ratio] 23.2 kg/m2 Karla Haagen VICE CHAIR-C Work Phone: 2(016)006-317223 [place] [address] 10-09-2024 09:36-0400 Body temperature 97.8 [degF] Karla Haagen [employer] CHAIR[employer]C Work Phone: 9(421)029-473723 [place] [address] 10-09-2024 09:36-0400 Body weight 69.39 kg Karla Haagen [employer] CHAIR-C Work Phone: 7(018)962-277623 [place] [address] 10-09-2024 09:36-0400 Diastolic blood pressure 66 mm[Hg] Karla Haagen VICE CHAIR-C Work Phone: 6(278)585-124523 [place] [address] 10-09-2024 09:36-0400 Heart rate 62 /min Karla Haagen VICE CHAIR-C Work Phone: 7(039)100-645223 [place] [address] 10-09-2024 09:36-0400 Respiratory rate 14 /min Karla Haagen VICE CHAIR-C Work Phone: 1(207)214-996723 [place] [address] 10-09-2024 09:36-0400 SaO2% (BldA) [Mass fraction] 97 % Karla Haagen VICE CHAIR-C Work Phone: 9(108)999-446723 [place] [address] 10-09-2024 09:36-0400 Systolic blood pressure 136 mm[Hg] Karla Haagen VICE CHAIR-C Work Phone: [facility] 09-23-2024 09:35-0400 Body temperature 98.6 [degF] Karla Haagen VICE CHAIR-C Work Phone: [facility] 09-23-2024 09:35-0400 Body weight 68.49 kg Karla Haagen VICE CHAIR-C Work Phone: [facility] 09-23-2024 09:35-0400 Diastolic blood pressure 69 mm[Hg] Karla Haagen VICE CHAIR-C Work Phone: 1(552)606-999523 [place] [address] 09-23-2024 09:35-0400 Heart rate 65 /min Karla Haagen VICE CHAIR-C Work Phone: 1(966)507-692023 [place] [address] 09-23-2024 09:35-0400 Respiratory rate 18 /min Karla Haagen VICE CHAIR-C Work Phone: 1(931)704-719923 [place] [address] 09-23-2024 09:35-0400 SaO2% (BldA) [Mass fraction] 95 % Karla Haagen VICE CHAIR-C Work Phone: 2(122)329-404723 [place] [address] 09-23-2024 09:35-0400 Systolic blood pressure 145 mm[Hg] Karla Haagen VICE CHAIR-C Work Phone: 7(305)666-546823 [place] [address] 09-18-2024 12:00-0400 Body temperature 97.4 [degF] Karla Haagen VICE CHAIR-C Work Phone: 3(081)210-679[address] [place] [address] 09-18-2024 12:00-0400 Diastolic blood pressure 51 mm[Hg] Karla Haagen VICE CHAIR-C Work Phone: 4(956)497-274123 [place] [address] 09-18-2024 12:00-0400 Heart rate 66 /min Karla Haagen VICE CHAIR-C Work Phone: 8(087)765-756623 [place] [address] 09-18-2024 12:00-0400 Inhaled oxygen flow rate 3 L/min Karla Haagen VICE CHAIR-C Work Phone: 9(074)444-600258 [place] [address] 09-18-2024 12:00-0400 Respiratory rate 16 /min Karla Roperagen VICE CHAIR-C Work Phone: 2(180)970-061223 [place] [address] 09-18-2024 12:00-0400 SaO2% (BldA) [Mass fraction] 96 % Karla Haagen VICE CHAIR-C Work Phone: 9(981)241-152923 [place] [address] 09-18-2024 12:00-0400 Systolic blood pressure 149 mm[Hg] Karla Haagen VICE CHAIR-C Work Phone: 3(277)811-309023 [place] [address] 09-18-2024 04:37-0400 Body mass index (BMI) [Ratio] 23.8 kg/m2 Karla Haagen VICE CHAIR-C Work Phone: 5(826)096-548023 [place] [address] 09-18-2024 04:37-0400 Body weight 70.9 kg Karla Haagen VICE CHAIR-C Work Phone: 2(189)554-782623 [place] [address] 09-17-2024 16:02-0400 Body height 172.72 cm Karla Haagen VICE CHAIR-C Work Phone: 8(833)095-738223 [place] [address] 09-03-2024 15:40-0400 Body temperature 98.7 [degF] Karla Haagen VICE CHAIR-C Work Phone: 3(802)412-520423 [place] [address] 09-03-2024 15:40-0400 Body weight 69.39 kg Karla Haagen VICE CHAIR-C Work Phone: 9(411)015-750823 [place] [address] 09-03-2024 15:40-0400 Diastolic blood pressure 67 mm[Hg] Karla Haagen VICE CHAIR-C Work Phone: 5(310)652-944823 [place] [address] 09-03-2024 15:40-0400 Heart rate 75 /min Karla Haagen VICE CHAIR-C Work Phone: 4(829)894-079923 [place] [address] 09-03-2024 15:40-0400 Respiratory rate 18 /min Karla Haagen VICE CHAIR-C Work Phone: 3(618)780-476923 [place] [address] 09-03-2024 15:40-0400 SaO2% (BldA) [Mass fraction] 96 % Karla Haagen VICE CHAIR-C Work Phone: 0(137)425-088223 [place] [address] 09-03-2024 15:40-0400 Systolic blood pressure 137 mm[Hg] Karla Haagen VICE CHAIR-C Work Phone: 9(674)721-947823 [place] [address] 08-25-2024 09:40-0400 Body height 172.72 cm Karla Haagen VICE CHAIR-C Work Phone: 5(545)580-324123 [place] [address] 08-25-2024 09:40-0400 Body weight 68.94 kg Karla Haagen VICE CHAIR-C Work Phone: 4(585)082-281223 [place] [address] 08-22-2024 08:42-0400 Body mass index (BMI) [Ratio] 23.1 kg/m2 Karla Haagen VICE CHAIR-C Work Phone: 5(537)811-799623 [place] [address] 08-04-2024 13:45-0400 Body height 172.72 cm Karla Haagen VICE CHAIR-C Work Phone: 4(932)314-832023 [place] [address] 08-04-2024 13:45-0400 Body mass index (BMI) [Ratio] 24 kg/m2 Karla Haagen VICE CHAIR-C Work Phone: 1(252)046-103323 [place] [address] 08-04-2024 13:45-0400 Body weight 71.83 kg Karla Haagen VICE CHAIR-C Work Phone: 1(593)695-159923 [place] [address] 07-30-2024 13:33-0400 Diastolic blood pressure 75 mm[Hg] Karla Haagen VICE CHAIR-C Work Phone: 8(351)029-460523 [place] [address] 07-30-2024 13:33-0400 Systolic blood pressure 147 mm[Hg] Karla Haagen VICE CHAIR-C Work Phone: 2(436)806-848523 [place] [address] 07-30-2024 13:20-0400 Body height 172.72 cm Karla Haagen VICE CHAIR-C Work Phone: 7(185)803-092623 [place] [address] 07-30-2024 13:20-0400 Body mass index (BMI) [Ratio] 23.1 kg/m2 Karla Haagen VICE CHAIR-C Work Phone: 9(113)104-493523 [place] [address] 07-30-2024 13:20-0400 Body weight 68.94 kg Karla Haagen VICE CHAIR-C Work Phone: 7(169)420-505623 [place] [address] 07-30-2024 13:20-0400 Heart rate 76 /min Karla Haagen VICE CHAIR-C Work Phone: 8(475)280-649523 [place] [address] 07-30-2024 13:20-0400 Respiratory rate 16 /min Karla Haagen VICE CHAIR-C Work Phone: 5(114)650-718223 [place] [address] 07-29-2024 07:27-0400 Body temperature 98 [degF] Karla Haagen VICE CHAIR-C Work Phone: 0(501)550-733123 [place] [address] 07-29-2024 07:27-0400 Diastolic blood pressure 87 mm[Hg] Karla Haagen VICE CHAIR-C Work Phone: 8(240)357-666623 [place] [address] 07-29-2024 07:27-0400 Heart rate 62 /min Karla Haagen VICE CHAIR-C Work Phone: 7(472)297-962223 [place] [address] 07-29-2024 07:27-0400 Respiratory rate 18 /min Karla Haagen VICE CHAIR-C Work Phone: 9(427)201-444423 [place] [address] 07-29-2024 07:27-0400 SaO2% (BldA) [Mass fraction] 98 % Karla Haagen VICE CHAIR-C Work Phone: 1(605)433-549723 [place] [address] 07-29-2024 07:27-0400 Systolic blood pressure 149 mm[Hg] Karla Haagen VICE CHAIR-C Work Phone: 7(821)990-533623 [place] [address] 07-29-2024 06:16-0400 Body height 172.72 cm Karla Haagen VICE CHAIR-C Work Phone: 2(231)686-284723 [place] [address] 07-29-2024 06:16-0400 Body mass index (BMI) [Ratio] 23.1 kg/m2 Karla Haagen VICE CHAIR-C Work Phone: 7(261)067-331623 [place] [address] 07-29-2024 06:16-0400 Body weight 69 kg Karla Haagen VICE CHAIR-C Work Phone: 7(966)289-207923 [place] [address] 07-17-2024 14:05-0400 Body temperature 9.4 [degF] Karla Haagen VICE CHAIR-C Work Phone: 2(007)770-239423 [place] [address] 07-17-2024 14:05-0400 Body weight 73.02 kg Karla Haagen VICE CHAIR-C Work Phone: 5(983)649-133223 [place] [address] 07-17-2024 14:05-0400 Diastolic blood pressure 58 mm[Hg] Karla Haagen VICE CHAIR-C Work Phone: 7(387)668-369523 [place] [address] 07-17-2024 14:05-0400 Heart rate 66 /min Karla Haagen VICE CHAIR-C Work Phone: 9(697)023-120423 [place] [address] 07-17-2024 14:05-0400 Respiratory rate 16 /min Karla Haagen VICE CHAIR-C Work Phone: 7(162)125-667223 [place] [address] 07-17-2024 14:05-0400 SaO2% (BldA) [Mass fraction] 93 % Karla Haagen VICE CHAIR-C Work Phone: 3(876)449-475123 [place] [address] 07-17-2024 14:05-0400 Systolic blood pressure 122 mm[Hg] Karla Haagen VICE CHAIR-C Work Phone: 9(365)095-149023 [place] [address] 06-03-2024 11:05-0400 Body temperature 98.4 [degF] Karla Haagen VICE CHAIR-C Work Phone: 2(711)992-670323 [place] [address] 06-03-2024 11:05-0400 Body weight 73.48 kg Karla Haagen VICE CHAIR-C Work Phone: 4(447)377-227123 [place] [address] 06-03-2024 11:05-0400 Diastolic blood pressure 62 mm[Hg] Karla Haagen VICE CHAIR-C Work Phone: 2(941)542-172523 [place] [address] 06-03-2024 11:05-0400 Heart rate 68 /min Karla Haagen VICE CHAIR-C Work Phone: 9(991)386-278223 [place] [address] 06-03-2024 11:05-0400 Respiratory rate 16 /min Karla Haagen VICE CHAIR-C Work Phone: 8(126)151-244023 [place] [address] 06-03-2024 11:05-0400 SaO2% (BldA) [Mass fraction] 94 % Karla Haagen VICE CHAIR-C Work Phone: 4(272)803-247523 [place] [address] 06-03-2024 11:05-0400 Systolic blood pressure 177 mm[Hg] Karla Baron VICE CHAIR-C Work Phone: [facility] 05-27-2024 11:05-0400 Body mass index (BMI) [Ratio] 25.37 kg/m2 Karla Baron LICENSED OPTICIAN.FURNITURE [employer]SEMBLER Work Phone: [facility] 05-27-2024 11:05-0400 Body weight 73.48 kg Karla Baron LICENSED OPTICIAN.FURNITURE ASSEMBLER Work Phone: [facility] 05-27-2024 11:05-0400 Diastolic blood pressure 64 mm[Hg] Karla Baron LICENSED OPTICIAN.FURNITURE ASSEMBLER Work Phone: [facility] 05-27-2024 11:05-0400 Heart rate 64 /min Karla Baron LICENSED OPTICIAN.FURNITURE ASSEMBLER Work Phone: [facility] 05-27-2024 11:05-0400 Respiratory rate 16 /min Karla Baron LICENSED OPTICIAN.FURNITURE ASSEMBLER Work Phone: [facility] 05-27-2024 11:05-0400 SaO2% (BldA) [Mass fraction] 94 % Karla Baron LICENSED OPTICIAN.FURNITURE ASSEMBLER Work Phone: [facility] 05-27-2024 11:05-0400 Systolic blood pressure 138 mm[Hg] Karla Baron LICENSED OPTICIAN.FURNITURE ASSEMBLER Work Phone: [facility] 05-18-2024 06:55-0400 Body temperature 98 [degF] Karla Baron VICE CHAIR-C Work Phone: [facility] 05-18-2024 06:55-0400 Diastolic blood pressure 64 mm[Hg] Karla Haagen VICE CHAIR-C Work Phone: [facility] 05-18-2024 06:55-0400 Heart rate 62 /min Karla Haagen VICE CHAIR-C Work Phone: [facility] 05-18-2024 06:55-0400 Respiratory rate 16 /min Karla Roperagen VICE CHAIR-C Work Phone: [facility] 05-18-2024 06:55-0400 SaO2% (BldA) [Mass fraction] 92 % Karla Baron VICE CHAIR-C Work Phone: [facility] 05-18-2024 06:55-0400 Systolic blood pressure 151 mm[Hg] Karla Baron VICE CHAIR-C Work Phone: [facility] 05-18-2024 05:24-0400 Body height 172.72 cm Karla Baron VICE CHAIR-C Work Phone: [facility] 05-18-2024 05:24-0400 Body mass index (BMI) [Ratio] 23.8 kg/m2 Karla Baron VICE CHAIR-C Work Phone: [facility] 05-18-2024 05:24-0400 Body weight 71 kg Karla Baron VICE CHAIR-C Work Phone: [facility] 02-29-2024 14:01-0500 Body mass index (BMI) [Ratio] 25.22 kg/m2 Karla Baron LICENSED OPTICIAN.FURNITURE ASSEMBLER Work Phone: [facility] 02-29-2024 14:01-0500 Body weight 73.03 kg Karla Baron LICENSED OPTICIAN.FURNITURE ASSEMBLER Work Phone: [facility] 02-29-2024 14:01-0500 Diastolic blood pressure 74 mm[Hg] Karla Baron LICENSED OPTICIAN.FURNITURE ASSEMBLER Work Phone: [facility] 02-29-2024 14:01-0500 Heart rate 72 /min Karla Baron LICENSED OPTICIAN.FURNITURE ASSEMBLER Work Phone: [facility] 02-29-2024 14:01-0500 Respiratory rate 16 /min Karla Baron LICENSED OPTICIAN.FURNITURE ASSEMBLER Work Phone: [facility] 02-29-2024 14:01-0500 SaO2% (BldA) [Mass fraction] 95 % Karla Baron LICENSED OPTICIAN.FURNITURE ASSEMBLER Work Phone: [facility] 02-29-2024 14:01-0500 Systolic blood pressure 138 mm[Hg] Karla Baron LICENSED OPTICIAN.FURNITURE ASSEMBLER Work Phone: [facility] 02-11-2024 08:48-0500 Body mass index (BMI) [Ratio] 24.5 kg/m2 Karla Baron VICE CHAIR-C Work Phone: [facility] 02-11-2024 08:48-0500 Body temperature 98.2 [degF] Karla Baron VICE CHAIR-C Work Phone: [facility] 02-11-2024 08:48-0500 Body weight 73.3 kg Karla Braon VICE CHAIR-C Work Phone: [facility] 02-11-2024 08:48-0500 Diastolic blood pressure 68 mm[Hg] Karla Baron VICE CHAIR-C Work Phone: [facility] 02-11-2024 08:48-0500 Heart rate 69 /min Karla Baron VICE CHAIR-C Work Phone: [facility] 02-11-2024 08:48-0500 Respiratory rate 18 /min Karla Baron VICE CHAIR-C Work Phone: [facility] 02-11-2024 08:48-0500 SaO2% (BldA) [Mass fraction] 98 % Karla Baron VICE CHAIR-C Work Phone: [facility] 02-11-2024 08:48-0500 Systolic blood pressure 173 mm[Hg] Karla Baron VICE CHAIR-C Work Phone: [facility] 02-01-2024 08:32-0500 Body mass index (BMI) [Ratio] 25.38 kg/m2 Gus Sanchez LICENSED OPTICIAN.FURNITURE ASSEMBLER Work Phone: [facility] 02-01-2024 08:32-0500 Body temperature 97.9 [degF] Gus Sanchez APRN.FURNITURE ASSEMBLER Work Phone: [facility] 02-01-2024 08:32-0500 Body weight 73.5 kg Gus Sanchez LICENSED OPTICIAN.FURNITURE ASSEMBLER Work Phone: [facility] 02-01-2024 08:32-0500 Diastolic blood pressure 82 mm[Hg] Gus [facility] LICENSED OPTICIAN.FURNITURE ASSEMBLER Work Phone: [facility] 02-01-2024 08:32-0500 Heart rate 86 /min [facility] LICENSED OPTICIAN.FURNITURE ASSEMBLER Work Phone: [facility] 02-01-2024 08:32-0500 Respiratory rate 18 /min Gus Pend[facility] LICENSED OPTICIAN.FURNITURE ASSEMBLER Work Phone: [facility] 02-01-2024 08:32-0500 SaO2% (BldA) [Mass fraction] 97 % [facility] LICENSED OPTICIAN.FURNITURE ASSEMBLER Work Phone: [facility] 02-01-2024 08:32-0500 Systolic blood pressure 107 mm[Hg] Gus [facility] LICENSED OPTICIAN.FURNITURE ASSEMBLER Work Phone: [facility] 01-30-2024 12:45-0500 Body temperature 98.2 [degF] Karla Haagen VICE CHAIR-C Work Phone: [facility] 01-30-2024 12:45-0500 Diastolic blood pressure 71 mm[Hg] Karla Haagen VICE CHAIR-C Work Phone: [facility] 01-30-2024 12:45-0500 Heart rate 64 /min Karla Haagen VICE CHAIR-C Work Phone: [facility] 01-30-2024 12:45-0500 Respiratory rate 16 /min Karla Haagen VICE CHAIR-C Work Phone: [facility] 01-30-2024 12:45-0500 SaO2% (BldA) [Mass fraction] 97 % Karla Haagen VICE CHAIR-C Work Phone: [facility] 01-30-2024 12:45-0500 Systolic blood pressure 144 mm[Hg] Karla Haagen VICE CHAIR-C Work Phone: [facility] 01-30-2024 11:05-0500 Body mass index (BMI) [Ratio] 25.2 kg/m2 Karla Haagen VICE CHAIR-C Work Phone: [facility] 01-30-2024 11:05-0500 Body weight 75.1 kg Karla Tod VICE CHAIR-C Work Phone: [facility] 01-21-2024 13:05-0500 Diastolic blood pressure 71 mm[Hg] Dave Jaylan LICENSED OPTICIAN.FURNITURE ASSEMBLER Work Phone: [facility] Comment on above: BP average 01-21-2024 13:05-0500 Heart rate 69 /min Dave Jaylan LICENSED OPTICIAN.FURNITURE ASSEMBLER Work Phone: [facility] 01-21-2024 13:05-0500 Systolic blood pressure 162 mm[Hg] Dave Jaylan LICENSED OPTICIAN.FURNITURE ASSEMBLER Work Phone: [facility] Comment on above: BP average 01-21-2024 12:51-0500 Body mass index (BMI) [Ratio] 25.37 kg/m2 Dave Jaylan LICENSED OPTICIAN.FURNITURE ASSEMBLER Work Phone: [facility] 01-21-2024 12:51-0500 Body weight 73.48 kg Dave Jaylan LICENSED OPTICIAN.FURNITURE ASSEMBLER Work Phone: [facility] 01-21-2024 12:51-0500 Respiratory rate 16 /min Dave Jaylan LICENSED OPTICIAN.FURNITURE ASSEMBLER Work Phone: [facility] 01-21-2024 12:51-0500 SaO2% (BldA) [Mass fraction] 98 % Dave Jaylan LICENSED OPTICIAN.FURNITURE ASSEMBLER Work Phone: [facility] 01-02-2024 10:35-0500 Body mass index (BMI) [Ratio] 25.03 kg/m2 Tomeka Aldridgeir LICENSED OPTICIAN.FURNITURE ASSEMBLER Work Phone: [facility] 01-02-2024 10:35-0500 Body weight 72.48 kg Tomeka Zi LICENSED OPTICIAN.FURNITURE ASSEMBLER Work Phone: [facility] 01-02-2024 10:35-0500 Diastolic blood pressure 73 mm[Hg] Tomeka Zi LICENSED OPTICIAN.FURNITURE ASSEMBLER Work Phone: [facility] 01-02-2024 10:35-0500 Heart rate 65 /min Tomeka Zi LICENSED OPTICIAN.FURNITURE ASSEMBLER Work Phone: [facility] 01-02-2024 10:35-0500 SaO2% (BldA) [Mass fraction] 98 % Tomeka Zi LICENSED OPTICIAN.FURNITURE ASSEMBLER Work Phone: [facility] 01-02-2024 10:35-0500 Systolic blood pressure 170 mm[Hg] Tomeka Zi LICENSED OPTICIAN.FURNITURE ASSEMBLER Work Phone: [facility] 12-26-2023 12:58-0500 Diastolic blood pressure 76 mm[Hg] Star Grande MD Work Phone: [facility] 12-26-2023 12:58-0500 Respiratory rate 16 /min Star Grande MD Work Phone: [facility] 12-26-2023 12:58-0500 Systolic blood pressure 167 mm[Hg] Star Grande MD Work Phone: [facility] 12-26-2023 12:47-0500 Heart rate 72 /min Star Grande MD Work Phone: [facility] 12-26-2023 12:47-0500 SaO2% (BldA) [Mass fraction] 93 % Star Grande MD Work Phone: [facility] 12-26-2023 10:52-0500 Body mass index (BMI) [Ratio] 25.62 kg/m2 Star Grande MD Work Phone: [facility] 12-26-2023 10:52-0500 Body temperature 97.81 [degF] Star Grande MD Work Phone: [facility] 12-26-2023 10:52-0500 Body weight 74.2 kg Star Grande MD Work Phone: [facility] 12-06-2023 13:25-0400 Body height 170.2 cm Tomeka Zi LICENSED OPTICIAN.FURNITURE ASSEMBLER Work Phone: [facility] 12-06-2023 13:25-0400 Body mass index (BMI) [Ratio] 25.62 kg/m2 Tomeka Zi LICENSED OPTICIAN.FURNITURE ASSEMBLER Work Phone: [facility] 12-06-2023 13:25-0400 Body temperature 97.11 [degF] Tomeka Zi LICENSED OPTICIAN.FURNITURE ASSEMBLER Work Phone: [facility] 12-06-2023 13:25-0400 Body weight 74.21 kg Tomeka Zi LICENSED OPTICIAN.FURNITURE ASSEMBLER Work Phone: [facility] 12-06-2023 13:25-0400 Diastolic blood pressure 63 mm[Hg] Tomeka Zi LICENSED OPTICIAN.FURNITURE ASSEMBLER Work Phone: [facility] 12-06-2023 13:25-0400 Heart rate 69 /min Tomeka Zi LICENSED OPTICIAN.FURNITURE ASSEMBLER Work Phone: [facility] 12-06-2023 13:25-0400 SaO2% (BldA) [Mass fraction] 96 % Tomeka Zi LICENSED OPTICIAN.FURNITURE ASSEMBLER Work Phone: [facility] 12-06-2023 13:25-0400 Systolic blood pressure 152 mm[Hg] Tomeka Zi LICENSED OPTICIAN.FURNITURE ASSEMBLER Work Phone: [facility] 11-27-2023 10:59-0400 Body mass index (BMI) [Ratio] 25 kg/m2 Karla Haagen LICENSED OPTICIAN.FURNITURE ASSEMBLER Work Phone: [facility] 11-27-2023 10:59-0400 Body weight 73.48 kg Karla Haagen LICENSED OPTICIAN.FURNITURE ASSEMBLER Work Phone: [facility] 11-27-2023 10:59-0400 Diastolic blood pressure 82 mm[Hg] Karla Haagen LICENSED OPTICIAN.FURNITURE ASSEMBLER Work Phone: [facility] 11-27-2023 10:59-0400 Heart rate 59 /min Karla Haagen LICENSED OPTICIAN.FURNITURE ASSEMBLER Work Phone: [facility] 11-27-2023 10:59-0400 Respiratory rate 16 /min Karla Haagen LICENSED OPTICIAN.FURNITURE ASSEMBLER Work Phone: [facility] 11-27-2023 10:59-0400 SaO2% (BldA) [Mass fraction] 95 % Karla Baron LICENSED OPTICIAN.FURNITURE ASSEMBLER Work Phone: [facility] 11-27-2023 10:59-0400 Systolic blood pressure 136 mm[Hg] Karla Baron APRN.FURNITURE ASSEMBLER Work Phone: [facility] 05-24-2023 09:21-0400 Body height 171.5 cm NA Hatfield PA-C Work Phone: [facility] 05-24-2023 09:21-0400 Body weight 76.2 kg NA Hatfield PA-C Work Phone: [facility] 05-24-2023 09:21-0400 Diastolic blood pressure 64 mm[Hg] NA Hatfield PA-C Work Phone: [facility] 05-24-2023 09:21-0400 Heart rate 61 /min NA Hatfield PA-C Work Phone: [facility] 05-24-2023 09:21-0400 SaO2% (BldA) [Mass fraction] 95 % NA Hatfield PA-C Work Phone: [facility] 05-24-2023 09:21-0400 Systolic blood pressure 136 mm[Hg] NA Hatfield PA-C Work Phone: [facility] 05-03-2023 14:15-0400 Body temperature 97.6 [degF] [facility] 05-03-2023 14:15-0400 Diastolic blood pressure 76 mm[Hg] [facility] 05-03-2023 14:15-0400 Heart rate 78 /min [facility] 05-03-2023 14:15-0400 Respiratory rate 16 /min [facility] 05-03-2023 14:15-0400 SaO2% (BldA) [Mass fraction] 99 % [facility] 05-03-2023 14:15-0400 Systolic blood pressure 128 mm[Hg] [facility] 05-03-2023 13:16-0400 Body height 185.42 cm [facility] 05-03-2023 13:16-0400 Body mass index (BMI) [Ratio] 20.1 kg/m2 [facility] 05-03-2023 13:16-0400 Body weight 69.26 kg [facility] 10-10-2022 08:36-0400 Body height 171.5 cm NA Hatfield PA-C Work Phone: [facility] 10-10-2022 08:36-0400 Body weight 75.48 kg NA Hatfield PA-C Work Phone: [facility] 10-10-2022 08:36-0400 Diastolic blood pressure 70 mm[Hg] NA Hatfield PA-C Work Phone: [facility] 10-10-2022 08:36-0400 Heart rate 60 /min NA Hatfield PA-C Work Phone: [facility] 10-10-2022 08:36-0400 SaO2% (BldA) [Mass fraction] 97 % NA Hatfield PA-C Work Phone: [facility] 10-10-2022 08:36-0400 Systolic blood pressure 128 mm[Hg] NA Hatfield PA-C Work Phone: [facility] 08-11-2022 10:04-0400 Body weight 74.3 kg NA Hatfield PA-C Work Phone: [facility] 08-11-2022 10:04-0400 Diastolic blood pressure 80 mm[Hg] NA Hatfield PA-C Work Phone: [facility] 08-11-2022 10:04-0400 Heart rate 58 /min NA Hatfield PA-C Work Phone: [facility] 08-11-2022 10:04-0400 Respiratory rate 18 /min NA Hatfield PA-C Work Phone: [facility] 08-11-2022 10:04-0400 SaO2% (BldA) [Mass fraction] 97 % NA Hatfield PA-C Work Phone: [facility] 08-11-2022 10:04-0400 Systolic blood pressure 138 mm[Hg] ALICIA Hatfield PA-C Work Phone: [facility] 07-04-2022 13:06-0400 Body weight 73.85 kg Noris Podlogar LICENSED OPTICIAN.FURNITURE ASSEMBLER Work Phone: [facility] 07-04-2022 13:06-0400 Diastolic blood pressure 62 mm[Hg] Noris Podlogar LICENSED OPTICIAN.FURNITURE ASSEMBLER Work Phone: [facility] 07-04-2022 13:06-0400 Heart rate 77 /min Noris Podlogar LICENSED OPTICIAN.FURNITURE ASSEMBLER Work Phone: [facility] 07-04-2022 13:06-0400 Respiratory rate 16 /min Noris Podlogar LICENSED OPTICIAN.FURNITURE ASSEMBLER Work Phone: [facility] 07-04-2022 13:06-0400 SaO2% (BldA) [Mass fraction] 97 % Noris Podlogar LICENSED OPTICIAN.FURNITURE ASSEMBLER Work Phone: [facility] 07-04-2022 13:06-0400 Systolic blood pressure 124 mm[Hg] Noris Podlogar LICENSED OPTICIAN.FURNITURE ASSEMBLER Work Phone: [facility] 04-06-2022 12:33-0500 Body temperature 97.59 [degF] Thien Stanton LICENSED OPTICIAN.FURNITURE ASSEMBLER Work Phone: [facility] 04-06-2022 12:33-0500 Body weight 72.76 kg Thien Stanton LICENSED OPTICIAN.FURNITURE ASSEMBLER Work Phone: [facility] 04-06-2022 12:33-0500 Diastolic blood pressure 70 mm[Hg] Thien Maximino LICENSED OPTICIAN.FURNITURE ASSEMBLER Work Phone: [facility] 04-06-2022 12:33-0500 Heart rate 81 /min Thien Stanton LICENSED OPTICIAN.FURNITURE ASSEMBLER Work Phone: [facility] 04-06-2022 12:33-0500 Respiratory rate 16 /min Thien Stanton LICENSED OPTICIAN.FURNITURE ASSEMBLER Work Phone: [facility] 04-06-2022 12:33-0500 SaO2% (BldA) [Mass fraction] 96 % Thien Stanton APRN.FURNITURE ASSEMBLER Work Phone: [facility] 04-06-2022 12:33-0500 Systolic blood pressure 132 mm[Hg] Thien Stanton APRN.FURNITURE ASSEMBLER Work Phone: [facility] 01-01-2022 11:13-0500 Respiratory rate 20 /min [facility] Work Phone: 01-01-2022 11:13-0500 SaO2% (BldA) [Mass fraction] 93 % [facility] Work Phone: 01-01-2022 10:00-0500 Body temperature 98.1 [degF] [facility] Work Phone: 01-01-2022 10:00-0500 Diastolic blood pressure 64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 occult stool blood test [R19.5] Positive occult stoo l blood test 11/28/23 Start: 11-27-2023 End: 11-27-2023 Patient encounter procedure 11/27/2023 11:00 AM EDT Office Visit [facility] [address] [place] [address] Ida Hatfield PA-C [address] [place] [address] 6 Month follow up [facility] Comment on above: 6 Month follow up Start: 11-23-2023 End: 02-22-2024 CBC W Auto Differential panel - Blood COMPLETE BLOOD COUNT AND DIFFERENTIAL Lab Routine Essential hypertension, benign Expected: 11/23/2023, Expires: 02/22/2024 [facility] Work Phone: Comment on above: Expected: 11/23/2023, Expires: Start: 10-07-2023 Covid-19 Vaccine ( season) Covid-19 Vaccine () [facility] Start: 10-07-2023 Influenza vaccination Influenza Vaccine (#1) [facility] Start: 09-24-2023 DIABETES SCREEN DIABETES SCREEN [facility] Start: 09-10-2023 End: 09-10-2023 Patient encounter procedure 09/10/2023 4:15 PM EDT Office Visit Orthopaedics [address] [place] [address] Nilesh Ervin MD [address] [place], [place] [id number] Aponeurotomy left 4th finger Orthopaedics Comment on above: Aponeurotomy left 4th finger Start: 05-24-2023 End: 08-23-2023 Comprehensive metabolic 2000 panel - Serum or Plasma COMPREHENSIVE METABOLIC PANEL Lab Routine Essential hypertension, benign Hyperlipidemia LDL goal <70 Expected: 05/24/2023, Expires: 08/23/2023 [facility] Work Phone: Comment on above: Expected: 05/24/2023, Expires: Start: 05-24-2023 End: 08-23-2023 Lipid 1996 panel - Serum or Plasma LIPID PANEL BASIC Lab Routine Hyperlipidemia LDL goal <70 Expected: 05/24/2023, Expires: 08/23/2023 [facility] Work Phone: Comment on above: Expected: 05/24/2023, Expires: Start: 05-24-2023 End: 08-23-2023 PSA/PROSTATE SPECIFIC ANTIGEN SCREENING PSA/PROSTATE SPECIFIC ANTIGEN SCREENING Lab Routine BPH with obstruction/lower urinary tract symptoms Elevated PSA Encounter for screening for malignant neoplasm of prostate Expected: 05/24/2023, Expires: 08/23/2023 [facility] Work Phone: Comment on above: Expected: 05/24/2023, Expires: 4 Start: 05-03-2023 [facility] Start: 04-10-2023 End: 06-10-2023 CBC W Auto Differential panel - Blood CBC + DIFF Lab Routine Essential hypertension, benign Hyperlipidemia LDL goal <70 Expected: 04/10/2023, Expires: 06/10/2023 [facility] Work Phone: Comment on above: Expected: 04/10/2023, Expires: 4 Start: 04-10-2023 End: 06-10-2023 Comprehensive metabolic 2000 panel - Serum or Plasma COMP METABOLIC PANEL Lab Routine Essential hypertension, benign Expected: 04/10/2023, Expires: 06/10/2023 [facility] Work Phone: Comment on above: Expected: 04/10/2023, Expires: Start: 04-10-2023 End: 06-10-2023 Lipid 1996 panel - Serum or Plasma LIPID PANEL BASIC Lab Routine Hyperlipidemia LDL goal <70 Expected: 04/10/2023, Expires: 06/10/2023 [facility] Work Phone: Comment on above: Expected: 04/10/2023, Expires: Start: 04-08-2023 Covid-19 Vaccine () Covid-19 Vaccine () [facility] Start: 02-05-2023 Advance Directive Discussion Advance Directive Discussion [facility] Start: 02-05-2023 Behavioral Health Screening Behavioral Health Screening [facility] Start: 02-05-2023 Depression Assessment Depression Assessment [facility] Start: 10-13-2022 ANNUAL PCP TEAM CHRONIC DISEASE VISIT ANNUAL PCP TEAM CHRONIC DISEASE VISIT [facility] Start: 10-06-2022 Covid-19 Vaccine () Covid-19 Vaccine () [facility] Start: 10-06-2022 Influenza vaccination INFLUENZA (#1) [facility] Start: 04-06-2022 End: 06-06-2022 Comprehensive metabolic 2000 panel - Serum or Plasma COMP METABOLIC PANEL Lab Routine Essential hypertension, benign Expected: 04/06/2022, Expires: 06/06/2022 [facility] Work Phone: Comment on above: Expected: 04/06/2022, Expires: 3 Start: 02-05-2022 ADVANCE DIRECTIVE DISCUSSION ADVANCE DIRECTIVE DISCUSSION [facility] Start: 02-05-2022 DEPRESSION ASSESSMENT DEPRESSION ASSESSMENT [facility] Start: 12-31-2021 Referral to service [facility] Work Phone: Start: 12-31-2021 End: 12-31-2021 Suicide precautions [facility] Work Phone: Start: 10-06-2021 Influenza vaccination INFLUENZA (#1) [facility] Start: 09-23-2021 Hepatitis B surface antibody level LDL CHOLESTEROL [facility] Start: 03-07-2021 COVID-19 VACCINE (4 - Booster for Pfizer series) COVID-19 VACCINE (4 - Booster for Pfizer series) [facility] Start: 03-07-2021 COVID-19 VACCINE (4 - Pfizer series) COVID-19 VACCINE (4 - Pfizer series) [facility] Start: 02-05-2021 DEPRESSION ASSESSMENT DEPRESSION ASSESSMENT [facility] Start: 09-06-2018 BP CONTROLLED (<130/80) BP CONTROLLED (<130/80) [facility] Start: 08-05-2017 Medicare Annual Wellness Visit Medicare Annual Wellness Visit [facility] Start: 02-17-2016 RSV Vaccine (1 - 1-dose 75+ series) RSV Vaccine (1 - 1-dose 75+ series) [facility] Start: 2001 RSV Vaccine (1 - 1-dose 60+ series) RSV Vaccine (1 - 1-dose 60+ series) [facility] Start: 1991 SHINGRIX VACCINE (1 of 2) SHINGRIX VACCINE (1 of 2) [facility] Start: 1959 Depression Screening Depression Screening [facility] ALERE STREP A TEST (AG) ALERE ST REP A TEST (AG) Lab Routine Sore throat Ordered: 04/06/2022 [facility] Work Phone: Comment on above: Ordered: 04/06/2022 Catheterization of l eft heart [facility] CTA Head vessels and Neck vessels W contrast IV [facility] End: 12-05-2024 EGD DIAGNOSTIC EGD DIAGNOSTIC Endoscopy Routine Positive occult stool blood test Black stools Gastroesophageal reflux disease, unspecified whether esophagitis present 1 Occurrences starting 12/06/2023 until 12/05/2024 [facility] Work Phone: Comment on above: 1 Occurrences starting 12/06/2023 until 12/05/2024 End: 12-05-2024 Flexible sigmoidoscopy study COLONOSCOPY DIAGNOSTIC Endoscopy Routine Positive occult stool blood test Black stools 1 Occurrences starting 12/06/2023 until 12/05/2024 [facility] Comment on above: 1 Occurrences starting 12/06/2023 until 12/05/2024 Hemoglobin.gastroint nicholas nal.lower [Presence] in Stool by Immunoassay IMMUNOCHEMICAL FECAL OCCULT BLOOD TEST Lab Routine Black stool Ordered: 11/27/2023 [facility] Comment on above: Ordered: 11/27/2023 Influenza virus A an d B RNA and SARS-CoV-2 (COVID-19) N gene panel - Respiratory specimen by JOHANNY with probe detection COVID WITH FLUA+B, ROUTINE Microbiology Routine Sore throat URI, acute 04/06/2022 2:54 PM EST [facility] Work Phone: NM Heart Views W str ess and W radionuclide IV [facility] Patient Education [facility] Work Phone: Patient referral [facility] Work Phone: End: 11-09-2023 Radex spine lumbosacral 2/3 views XR LUMBAR GENERAL 3V AP/LAT/L5-S1 Radiology Routine Claudication (HCC) 1 Occurrences starting 10/10/2022 until 11/09/2023 [facility] Work Phone: Comment on above: 1 Occurrences starting 10/10/2022 until 11/09/2023 Radex spine lumbosac ral 2/3 views XR LUMBAR GENERAL 3V AP/LAT/L5-S1 Radiology Routine Benign prostatic hyperplasia with weak urinary stream 10/10/2022 10:27 AM EDT [facility] Work Phone: SURGICAL PATHOLOGY [facility] Work Phone: Comment on above: Release Upon Ordering for 1 Occurrences starting 12/26/2023, 1 completed End: 03-03-2025 US Carotid arteries - bilateral US CAROTID ARTERIES [facility] Lab Routine Bilateral carotid artery stenosis 1 Occurrences starting 03/03/2024 until 03/03/2025 [facility] Comment on above: 1 Occurrences starting 03/03/2024 until 03/03/2025 [facility] Immunizations Immunization Date Immunization Notes Care Provider Delores lopez 11-27-2023 COVID-19 vaccine, ag e 12+ yr (PFIZER-BIONTECH COMIRNATY) Karla Baron LICENSED OPTICIAN.FURNITURE ASSEMBLER Work Phone: [facility] 11-27-2023 influenza, high dose seasonal, preservative-free Karlabárbara Baron LICENSED OPTICIAN.FURNITURE ASSEMBLER Work Phone: [facility] 11-27-2023 influenza virus vaccine, unspecified formulation Karla Baron LICENSED OPTICIAN.FURNITURE ASSEMBLER Work Phone: [facility] 12-08-2022 COVID-19 vaccine, ag e 12+ yr, season (PFIZER-BIONTECH) Immunization [place] Work Phone: [facility] Work Phone: 10-10-2022 influenza (HD-IIV4) vaccine, age 65+ yr, high dose, quadrivalent, PF (FLUZONE HIGH-DOSE) ALICIA Hatfield PA-C Work Phone: [facility] 10-10-2022 influenza virus vaccine, unspecified formulation Nilesh Ervin MD Work Phone: [facility] 11-03-2021 influenza (HD-IIV4) vaccine, age 65+ yr, high dose, quadrivalent, PF (FLUZONE HIGH-DOSE) ALICIA Hatfield PA-C Work Phone: [facility] 05-20-2021 tetanus toxoid, redu melecio diphtheria toxoid, and acellular pertussis vaccine, adsorbed [facility] 12-09-2020 influenza, injectabl e, quadrivalent, preservative free [facility] 12-09-2020 influenza, seasonal, injectable [facility] 12-09-2020 influenza, seasonal, injectable, preservative free NA Hatfield PA-C Work Phone: [facility] 04-29-2020 Covid (Pfizer) [facility] 11-26-2019 influenza, high-dose , quadrivalent vaccine (FLUZONE HIGH DOSE QUADRIVALENT) NA Hatfield PA-C Work Phone: [facility] 11-29-2018 influenza, high dose seasonal, preservative-free NA Hatfield PA-C Work Phone: [facility] 11-16-2017 influenza, high dose seasonal, preservative-free NA Hatfield PA-C Work Phone: [facility] Work Phone: 12-04-2016 influenza, high dose seasonal, preservative-free NA Hatfield PA-C Work Phone: [facility] Work Phone: 02-24-2016 influenza, high dose seasonal, preservative-free NA Hatfield PA-C Work Phone: [facility] Work Phone: 11-06-2015 Influenza virus vaccine [facility] 11-06-2015 influenza, high dose seasonal, preservative-free NA Hatfield PA-C Work Phone: [facility] 11-06-2015 influenza, seasonal, injectable, preservative free NA Hatfield PA-C Work Phone: [facility] 05-10-2015 pneumococcal conjuga te vaccine, 13 valent NA Hatfield PA-C Work Phone: [facility] 01-20-2015 influenza, high dose seasonal, preservative-free NA Hatfield PA-C Work Phone: [facility] 2014 influenza, high dose seasonal, preservative-free NA Hatfield PA-C Work Phone: [facility] 06-21-2013 tetanus toxoid, redu melecio diphtheria toxoid, and acellular pertussis vaccine, adsorbed [facility] 12-12-2011 influenza virus vaccine, unspecified formulation NA Hatfield PA-C Work Phone: [facility] 08-23-2011 pneumococcal polysaccharide vaccine, 23 valent NA Hatfield PA-C Work Phone: [facility] 08-23-2011 Pneumococcal Vaccine [facility] Work Phone: 08-23-2011 pneumococcal vaccine , unspecified formulation [facility] 11-14-2010 influenza virus vaccine, unspecified formulation NA Hatfield PA-C Work Phone: [facility] Work Phone: 12-04-2007 influenza virus vaccine, unspecified formulation NA Hatfield PA-C Work Phone: [facility] 12-04-2007 pneumococcal polysaccharide vaccine, 23 valent NA Hatfield PA-C Work Phone: [facility] 12-04-2007 tetanus toxoid, redu melecio diphtheria toxoid, and acellular pertussis vaccine, adsorbed NA Hatfield PA-C Work Phone: [facility] Work Phone: 09-06-1977 diphtheria and tetan us toxoids, adsorbed for pediatric use NA Hatfield PA-C Work Phone: [facility] Payers Date Payer Category Payer Self-pay [id number] 2018 Private Health Insurance [id number] 2018 Private Health Insurance [id number] 2017 Medicare [id number] 2017 Medicare [id number] Medicare [id number] Unknown [id number] Unknown [id number] Unknown [id number] 2.16.8 [id number] Unknown [id number] 2.16.8 40.1.958101.3.579.2.462 Unknown [id number] 2.16.8 40.1.250375.3.579.2.462 Unknown [id number] 2.16.8 40.1.847727.3.579.2.462 Unknown [id number] 2.16.8 40.1.982768.3.579.2.462 Unknown [id number] 2.16.8 40.1.439654.3.579.2.462 Unknown [id number] 2.16.8 40.1.064238.3.579.2.462 Unknown [id number] 2.16.8 40.1.255327.3.579.2.462 Unknown [id number] 2.16.8 40.1.196939.3.579.2.462 Unknown [id number] 2.16.8 40.1.723830.3.579.2.462 Unknown [id number] 2.16.8 40.1.750463.3.579.2.462 Unknown [id number] 2.16.8 40.1.085507.3.579.2.462 Unknown [id number] 2.16.8 40.1.783371.3.579.2.462 Unknown [id number] 2.16.8 40.1.184921.3.579.2.462 Unknown [id number] 2.16.8 40.1.197235.3.579.2.462 Unknown [id number] 2.16.8 40.1.197625.3.579.2.462 Unknown [id number] 2.16.8 40.1.916138.3.579.2.462 Unknown [id number] 2.16.8 40.1.200133.3.579.2.462 Unknown [id number] 2.16.8 40.1.076233.3.579.2.462 Unknown [id number] 2.16.8 40.1.953050.3.579.2.462 Unknown [id number] 2.16.8 40.1.265853.3.579.2.462 Unknown [id number] 2.16.8 40.1.276346.3.579.2.462 Unknown [id number] 2.16.8 40.1.287032.3.579.2.462 Unknown [id number] 2.16.8 40.1.054872.3.579.2.462 Unknown [id number] 2.16.8 40.1.374744.3.579.2.462 Unknown [id number] 2.16.8 40.1.569371.3.579.2.462 Unknown [id number] 2.16.8 40.1.404967.3.579.2.462 Unknown [id number] 2.16.8 40.1.338660.3.579.2.462 Social History Date Type Detail Facility Start: 05-20-2021 End: 05-03-2023 Tobacco smoking status NVIS Unknown if ever smoked [facility] Start: 05-02-2016 None [facility] Start: 05-08-2013 Spouse/ Signif icant Other [facility] Start: 05-08-2013 Cigarettes [facility] Start: 1940 Sex Assigned At Male [facility] Start: 02-05-1958 End: 11-27-2023 Tobacco smoking status NHIS Smokes tobacco daily [facility] Start: 02-05-1958 End: 04-19-2022 History of tobacco use Cigarette Smoker [facility] Start: 10-13-2021 End: 08-11-2022 Cigarettes smoked current (pack per day) - Reported 1 [facility] Start: 10-13-2021 End: 11-27-2023 Tobacco use and exposure Smokeless tobacco non-user [facility] Start: 10-13-2021 End: 09-18-2024 Alcohol intake Current drinker of alcohol (finding) [facility] Start: 10-22-2015 History SDOH Alcohol Comment Socially [facility] Start: 1940 Sex Assigned At Not on file [facility] Start: 10-03-2021 End: 10-13-2021 Exposure to SARS-CoV-2 (event) Not sure [facility] Start: 07-04-2022 Tobacco smoking stat us NVIS Ex-smoker [facility] Start: 02-05-1958 End: 04-19-2022 History of tobacco use Current smoker [facility] Start: 10-15-2020 End: 08-11-2022 Tobacco use panel [facility] Start: 01-07-2012 Adult Depression Screening Assessment 0 [facility] Start: 05-18-2024 End: 10-16-2024 Tobacco smoking status [facility] Current Heavy tobacco smoker [facility] Start: 05-18-2024 Sex Male (finding) [facility] Medical Equipment Procedure Code Equipment Code Equipment Origin al Text Equipment Identifier Dates Endarterectomy, carotid VISTASEAL, 2ML FDA Start: 09-17-2024 Endarterectomy, carotid Cardiovascular patch, animal-derived [id number] FDA Start: 09-17-2024 Endarterectomy, carotid Ligation clip, metallic [id number] FDA Start: 09-17-2024 Endarterectomy, carotid Ligation clip, metallic [id number] FDA Start: 09-17-2024 Endarterectomy, carotid VISTASEAL, 2ML FDA Start: 09-17-2024 Endarterectomy, carotid VISTASEAL, 2ML FDA Start: 09-17-2024 Endarterectomy, carotid VISTASEAL, 2ML FDA Start: 09-17-2024 Ligation clip, synthetic polymer, non-bioabsorbable ()[id number] FDA Start: 12-08-2020 Patch Vascu-Guar d Taper Bovine Pericardial 8x.8cm Cardiovascular Starke - [id number] Start: 03-01-2016 Comment on above: Description: Vascu G uard Patch Graft Patch Vascu-Guar d Taper Bovine Pericardial 8x.8cm Cardiovascular Starke - [id number] Start: 03-01-2016 Comment on above: Description: Vascu G uard Patch Graft Goals Date Patient Goal Desired Activity /State Functional Status Date Assessment Result Facility 09-18-2024 Functional status Ambulates;Chair [facility] Work Phone: 04-13-2016 Are you deaf, or do you have serious difficulty hearing No 04/13/2016 2:31 PM Kwan Diehl, LICENSED OPTICIAN.FURNITURE ASSEMBLER No [facility] Work Phone: 04-13-2016 Are you blind, or do you have serious difficulty seeing, even when wearing glasses No 04/13/2016 2:31 PM Kwan Diehl, LICENSED OPTICIAN.FURNITURE ASSEMBLER No [facility] 04-13-2016 Do you have serious difficulty walking or climbing stairs No 04/13/2016 2:31 PM Kwan Diehl, LICENSED OPTICIAN.FURNITURE ASSEMBLER No [facility] 04-13-2016 Do you have difficul ty dressing or bathing Yes 04/13/2016 2:31 PM Kwan Diehl, LICENSED OPTICIAN.FURNITURE ASSEMBLER Yes [facility] 04-13-2016 Because of a physica l, mental, or emotional condition, do you have difficulty doing errands alone such as visiting a physician's office or shopping Yes 04/13/2016 2:31 PM Kwan Diehl, LICENSED OPTICIAN.FURNITURE ASSEMBLER Yes [facility] Mental Status Date Assessment Result Facility 09-18-2024 Cognitive function Voice/Name [facility] Work Phone: 05-20-2021 Cognitive function Voice/Name [facility] Work Phone: 04-13-2016 Because of a physica l, mental, or emotional condition, do you have serious difficulty concentrating, remembering, or making decisions No 04/13/2016 2:31 PM Kwan Diehl APRN.FURNITURE ASSEMBLER No [facility] Clinical Notes 04-11-2016 to 11-24-2024 Telephone Encounter - Ida Mcgovern RN - 10/03/2024 9:38 AM EDTTelephone Encounter - Ida Mcgovern RN - 10/03/2024 9:38 AM EDT Note Date & Type Note Facility 11-24-2024 Note HNO ID: [id number] Author: KARLA BARON APRN.FURNITURE ASSEMBLER Service: ? Author Type: Nurse Practitioner Type: Progress Notes Filed: 11/24/2024 22:56 Note Text: Ramonita El is a 84 year old male here [...] YR, HIGH DOSE, TRIVALENT (FLUZONE HIGH-DOSE) - [employer] website COVID-19 VACCINE AGE 12+ YR (COMIRNATY) 5. [...] as needed for worsening/no improvement. Karla Baron APRN.[facility] 11-14-2024 Progress note [facility] 11-14-2024 Radiology Diagnostic study note [facility] Imaging Services [address] [place] [address] L/S Spine Bending Flex/Ext MR#: [id number] Acct: [id number] Name: RAMONITA EL Rep #: [id number] : 1940 84 From: Lindsay Hendricks MD PCP: RAYO Pillai Status: DEP A MB Study:L/S Spine Bending Flex/Ext Date of Exam : 11/14/24 Exam# [id number] Ordering Dr: Aditya Ty EXAM: XR Lumbosacral Spine, 4 or 5 Views CLINICAL INDICATION: BACK PAIN TECHNIQUE: Frontal, lateral and bilateral oblique views of the lumbar spine. COMPARISON: No relevant prior studies available. FINDINGS: VERTEBRAE: Anterior spondylolisthesis of L 5 over S1 by 23 mm, which decreases to 14 mm on extension. Further evaluation with MRI is recommended. Degenerative facet arthropathy throughout the lumbar spine,most prominent in the lower lumbar spine. No acute fracture. SACRUM/COCCYX: Unremarkable as visualized. No acute fracture. DISC SPACES: Degenerative disc disease throughout the lumbar spine. SOFT TISSUES: Unremarkable. VASCULATURE: Scattered calcified atherosclerotic disease of aorta. RAD/L/S Spine Bending Flex/Ext IMPRESSION: Degenerative changes lumbar spine as described. Reading Location: [id number] CC: RAYO Baron; KRISTI Webster ~ Instructional Technologist: Signed [facility] 10-03-2024 Telephone encounter Note The patient has been identified by name and date of : Yes Caregiver verified no other encounters exist for this prescription request: Yes Caregiver confirmed with patient/requestor that no other refills are due, in the near future, with this provider at this time: Yes The last office visit in the department: 06/24/2024 Does the patient have a future office visit with this provider/department: No Visit date not found Requested Prescriptions Pending Prescriptions Disp Refills amLODIPine (NORVASC) 10 mg tablet 90 tablet 3 Sig: Take 1 tablet by mouth once daily. clopidogrel (PLAVIX) 75 mg tablet 90 tablet 3 Sig: Take 1 tablet by mouth once daily. Ida Mcgovern RN October 03, 2024 9:39 AM [facility] 10-03-2024 Miscellaneous Notes The patient has been identified by name and date of : Yes Caregiver verified no other encounters exist for this prescription request: Yes Caregiver confirmed with patient/requestor that no other refills are due, in the near future, with this provider at this time: Yes The last office visit in the department: 06/24/2024 Does the patient have a future office visit with this provider/department: No Visit date not found Requested Prescriptions Pending Prescriptions Disp Refills amLODIPine (NORVASC) 10 mg tablet 90 tablet 3 Sig: Take 1 tablet by mouth once daily. clopidogrel (PLAVIX) 75 mg tablet 90 tablet 3 Sig: Take 1 tablet by mouth once daily. Ida Mcgovern RN October 03, 2024 9:39 AM documented in this encounter [facility] 09-18-2024 Discharge summary [facility] 09-18-2024 Progress note [facility] 09-18-2024 Note [facility] Medical Records Department [address] [place] [address] Discharge Summary 09/18/24 1239 MR#: [id number] Acct: [id number] Name: RAMONITA EL Rep #: [id number] : 1940 84 From: Sammie BERRY PCP: RAYO Pillai Status:ADM IN Location: ICU [id number] Providers Date of Admission: 09/17/24 Primary Care Physician: RAYO Pillai Reason For Visit: Right Carotid Endarterectomy Diagnosis Discharge Diagnosis (1) Carotid stenosis, right: Status: Chronic Code(s): I65.21 - Occlusion and stenosis of right carotid artery Plan He is POD#1 from R CEA. I removed the ИВАН drain this morning without issue, he tolerated this well. He is neurologically stable. His blood pressures have been on the higher side, his home antihypertensive medication regimen has continued, will monitor. Discontinue arterial line. He has baseline urinary retention; home tamsulosin has been continued. Will monitor. Progress to normal diet. Plan to ambulate with nursing/PT. Possible discharge this afternoon. Medications at Discharge Home Medications amlodipine 10 mg tablet 10 mg PO DAILY HYPERTENSION 05/02/16 clopidogrel 75 mg tablet 75 mg PO DAILY BLOOD THINNER 05/02/16 tamsulosin 0.4 mg capsule (Flomax) 0.4 mg PO DAILY PROSTATE 05/02/16 metoprolol tartrate 100 mg tablet 100 mg PO BID HTN 11/09/20 pantoprazole 20 mg tablet,delayed release (Protonix) 20 mg PO DAILY GERD 11/09/20 acetaminophen 500 mg tablet (Tylenol Extra Strength) 500 mg PO Q4H PRN pain 08/05/24 losartan 25 mg tablet 25 mg PO QDAY bp 09/03/24 brimonidine 0.2 % eye drops 1 drp ophthalmic (eye) BID pressure 09/05/24 latanoprost 0.005 % eye drops drp ophthalmic (eye) pressure 09/05/24 timolol maleate 0.5 % eye drops 1 drp ophthalmic (eye) BID pressure 09/05/24 oxycodone 5 mg tablet 5 mg PO Q8H PRN PRN Pain Score 4-10 3 days #9 tabs 09/18/24 Hospital Course Operations - (R CEA) Summary of Care Provided Hospital Course: Mr. El is a 84 y/o male who underwent R CEA 09/17/2024. The procedure was without complication and he tolerated it well. Postoperatively, he was routinely admitted to the ICU for ongoing hemodynamic and neurologic monitoring. He has remained neurologically stable throughout his admission. He was initially hypertensive postoperatively but this improved with resuming his home antihypertensive regimen. He initially had significant urinary retention but this improved to his baseline stable chronic urinary retention. He tolerated normal diet, ambulated well. ИВАН drain was removed POD#1 without issue, incision site without hematoma. He is discharged home today with planned follow-up in the office 10/09/24. Physical Exam Const alert, oriented x3 and no apparent distress General Appearance: cooperative and comfortable HEENT normocephalic, head/scalp atraumatic, hearing grossly normal bilaterally, external ears normal and external nose normal Eyes General Eye: normal appearance of both eyes Neck Neck Narrative: R CEA incision site with skin glue intact, no dehiscence, minimal edema, no ecchymosis, soft/nontender to palpation. There is 20cc sanguineous output in the ИВАН. Resp normal respiratory effort, normal air movement, no retractions and no use of accessory muscles Effort and Inspection: able to speak in complete sentences; Negative for labored, grunting or stridor Cardio regular rate and regular rhythm Extremity normal to inspection, full ROM and no clubbing, cyanosis or edema Skin no rashes or lesions noted Trauma: no lacerations or abrasions Neuro oriented x3, CN's II-XII intact bilaterally, moves all extremities, no focal motor deficits and no sensory deficits noted Speech: speech normal Weight / BMI Weight Weight: 156 lb 4.924 oz Body Mass Index (BMI) 23.8 ABG / Lab / Microbiology Data 09/18/24 04:37 Laboratory: Laboratory Results - last 24 hr 09/17/24 11:11: Activated Clotting Time 124 09/17/24 11:51: Activated Clotting Time 268 H 09/17/24 12:26: Activated Clotting Time 239 H 09/18/24 04:37: WBC 11.5 H, RBC 4.19 L, Hgb 13.3, Hct 37.8 L, MCV 90.2, MCH 31.7, MCHC 35.2, RDW Std Deviation 44.7 H, RDW Coeff of Krishna 13.7, Plt Count 219, MPV 10.3, Immature Gran % (Auto) 0.300, Neut % (Auto) 90.6 H, Lymph % (Auto) 5.2 L, Inyo % (Auto) 3.8, Eos % (Auto) 0.0, Baso % (Auto) 0.1, A bsolute Neuts (auto) 10.4 H, Absolute Lymphs (auto) 0.60 L, Nucleated RBC % 0 D/C Instructions Weight Bearing Status: Weight bearing as tolerated Lifting Restricted to (Lbs): 20 Lifting Restrictions: Do not lift more than 20 pounds for 3 weeks Call your doctor if your incision/area has: Sudden Increased Bleeding and Foul Smelling Discharge Call your doctor if you observe: Fever of 101 or Higher and Uncontrolled pain DC O2, CPAP, BIPAP Needs Home O2 Discharge instruc (more content not included)... [facility] 09-18-2024 Progress note Note Date/Time September 18, 2024 1:27pm [facility] Medical Records Department [address] [place] [address] Progress Note - Surgery 09/18/2415 MR#: [id number] Acct: [id number] Name: RAMONITA EL Rep #:[id number] : 1940 84 From: Sammie BERRY PCP: Karla Baron NP-C Status:ADM I N Location: ICU CVICU20 1-1 Subjective Subjective Mr. El had just gotten up to the chair this morning on my exam. He reports heis feeling better this morning. He only has pain in his neck when he turns his head. He denies any headache, vision changes, weakness/numbness. He feels he didwell getting to the chair, did not note any lightheadedness. He has had urinary retention and hesitancy; he has this to some degree at baseline, takes tamsulosin for this; he states at home these symptoms are typically worse in themorning anyways. He has had mild ИВАН drain output, ~10 cc emptied recorded yesterday evening and on my exam about 20 cc in the drain this morning. He has been hypertensive, he required 2 doses of hydralazine yesterday evening, none overnight. Nursing noted some dysarthria on neuro exams postoperatively, Dr. Demarco saw patient in PACU and he was at baseline speech; this morning he is at baseline speech from when I last saw him in the office; patient does not note any speech difficulties himself. Objective Data Objective Data Vital Signs: Vital Signs Temp Pulse Resp BP Pulse Ox O2 Del Method O2 Flow Rate 97.8 F 65 14 150/50 H 95 Nasal Cannula 3 09/18/24 05:00 09/18/24 06:00 09/18/24 06:00 09/18/24 06:00 09/18/24 06:48 09/18/24 06:48 09/18/24 06:48 Oxygen Flow Rate (L/min) 3 Oxygen Delivery Method Nasal Cannula Weight: 156 lb 4.924 oz Body Mass Index (BMI) 23.8 Intake & Output: Intake and Output for Last 24 Hours 09/16/24 09/17/24 09/18/24 23:59 23:59 23:59 Intake Total 1865 / 1865 50 / 50 Output Total 534 / 534 100 / 100 Balance 1331 / 1331 -50 / -50 Lab / Micro Data 09/18/24 04:37 Labs: Laboratory Results - last 24 hr 09/17/24 08:05: Blood Type B POSITIVE, Antibody Screen NEGATIVE 09/17/24 11:11: Activated Clotting Time 124 09/17/24 11:51: Activated Clotting Time 268 H 09/17/24 12:26: Activated Clotting Time 239 H 09/18/24 04:37: WBC 11.5 H, RBC 4.19 L, Hgb 13.3, Hct 37.8 L, MCV 90.2, MCH 31.7, MCHC 35.2, RDW Std Deviation 44.7 H, RDW Coeff of Krishna 13.7, Plt Count 219,MPV 10.3, Immature Gran % (Auto) 0.300, Neut % (Auto) 90.6 H, Lymph % (Auto) 5.2L, Inyo % (Auto) 3.8, Eos % (Auto) 0.0, Baso % (Auto) 0.1, Absolute Neuts (auto)10.4 H, Absolute Lymphs (auto) 0.60 L, Nucleated RBC % 0 Physical Exam Const alert, oriented x3 and no apparent distress General Appearance: cooperative and comfortable HEENT normocephalic, head/scalp atraumatic, hearing grossly normal bilaterally, external ears normal and external nose normal Eyes General Eye: normal appearance of both eyes Neck Neck Narrative: R CEA incision site with skin glue intact, no dehiscence, minimal edema, no ecchymosis, soft/nontender to palpation. There is ~20cc sanguineous output in the ИВАН. Resp normal respiratory effort, normal air movement, no retractions and no use of accessory muscles Effort and Inspection: able to speak in complete sentences; Negative for labored, grunting or stridor Cardio regular rate and regular rhythm Extremity normal to inspection, full ROM and no clubbing, cyanosis or edema Skin no rashes or lesions noted Trauma: no lacerations or abrasions Neuro oriented x3, CN's II-XII intact bilaterally, moves all extremities, no focal motor deficits and no sensory deficits noted Speech: speech normal Assessment & Plan Assessment/Plan (1) Carotid stenosis, right: PLAN: Plan He is POD#1 from R CEA. I removed the ИВАН drain this morning without issue, he tolerated this well. He is neurologically stable. His blood pressures have been on the higher side, his home antihypertensive medication regimen has continued, will monitor. Discontinue arterial line. He has baseline urinary retention; home tamsulosin has been continued. Will monitor. Progress to normal diet. Plan to ambulate with nursing/PT. Possible discharge this afternoon. Charges/Coding Procedures Integumentary 111xxx-113xx: [id number] Global Visit 09/18/24 0823 <Electronically signed by Sammie BERRY> Cosigner Signature (if applicable): 09/18/24 1327 <Electronically signed by Mello Deamrco MD> CC: ~ Signed [facility] Work Phone: 1(991) 196-109508-13-2025 Consult note Author Sada Jacques [facility] Note Date/Time September 17, 2024 4: 35pm [facility] Medical Records Department [address] [place] [address] Anesthesia Postop Eval II 09/17/24 1635 MR#: [id number] Acct: [id number] Name: RAMNOITA EL Rep #:[id number] : 1940 84 From: Sada Jacques CRNA PCP: RAYO Pillai Status:ADM I N Y Race: C Location: ICU CVICU 201-1 Anesthesia Postop Eval I Sum Postop Eval Completion status Anesthesia document: Postop Eval 1 completed: Yes Anesthesia Postop Eval I Summary Anesthesia Postop Eval I Summary: Anesthesia Postop Eval I: Assessment Summary 3 Airway patent Yes 09/17/24 14:00 CUSTOMER SERVICE ASSISTANT.[email or web address] Spontaneous unlabored Yes 09/17/24 14:00 CUSTOMER SERVICE ASSISTANT.PKEL respirations Mental status Awake 09/17/24 14:00 CUSTOMER SERVICE ASSISTANT.PKEL nausea No 09/17/24 14:00 CUSTOMER SERVICE ASSISTANT.PKEL Vomiting No 09/17/24 14:00 CUSTOMER SERVICE ASSISTANT.PKEL Anesthesia Postop Eval I: Fluid Summary Crystalloid volume administer 1,700 09/17/24 14:00 CUSTOMER SERVICE ASSISTANT.PKEL (ml) Colloids volume administered ( ml) Blood Product volume administered (ml) Total IV fluid infused 1,700 09/17/24 14:00 CUSTOMER SERVICE ASSISTANT.PKEL Anesthesia Postop Eval I: Summary Notes Anesthesia Complication No 09/17/24 14:00 CUSTOMER SERVICE ASSISTANT.PKEL Anesthesia Complication Comment: Post-operative progress note Anesthesia: Postop Eval II Evaluation Mental status: Awake Pain Level: 2 nausea: No Vomiting: No 09/17/24 1635 <Electronically signed by Sada rothman CRNA> Date _ Sada Jacques CRNA Cosigner Signature: Date CC: ~ Signed [facility] Work Phone: 1(131) 507-153708-13-2025 Consult note [facility] Medical Records Department [address] [facility] [address] Anesthesia Postop Eval II 09/17/24 1635 MR#: [id number] Acct: [id number] Name: RAMONITA EL Rep #:[id number] : 1940 84 From: Sada Jacques CRNA PCP: RAYO Pillai Status:ADM I N Y Race: C Location: ICU CVICU 201-1 Anesthesia Postop Eval I Sum Postop Eval Completion status Anesthesia document: Postop Eval 1 completed: Yes Anesthesia Postop Eval I Summary Anesthesia Postop Eval I Summary: Anesthesia Postop Eval I: Assessment Summary 3 Airway patent Yes 09/17/24 14:00 CUSTOMER SERVICE ASSISTANT.PKEL Spontaneous unlabored Yes 09/17/24 14:00 CUSTOMER SERVICE ASSISTANT.PKEL respirations Mental status Awake 09/17/24 14:00 CUSTOMER SERVICE ASSISTANT.PKEL nausea No 09/17/24 14:00 CUSTOMER SERVICE ASSISTANT.PKEL Vomiting No 09/17/24 14:00 CUSTOMER SERVICE ASSISTANT.PKEL Anesthesia Postop Eval I: Fluid Summary Crystalloid volume administer 1,700 09/17/24 14:00 CUSTOMER SERVICE ASSISTANT.PKEL (ml) Colloids volume administered ( ml) Blood Product volume administered (ml) Total IV fluid infused 1,700 09/17/24 14:00 CUSTOMER SERVICE ASSISTANT.PKEL Anesthesia Postop Eval I: Summary Notes Anesthesia Complication No 09/17/24 14:00 CUSTOMER SERVICE ASSISTANT.PKEL Anesthesia Complication Comment: Post-operative progress note Anesthesia: Postop Eval II Evaluation Mental status: Awake Pain Level: 2 nausea: No Vomiting: No 09/17/24 1635 a CUSTOMER SERVICE ASSISTANT> Date _ Sada Jacques CUSTOMER SERVICE ASSISTANT Cosigner Signature: Date CC: ~ Signed [facility]08-13-2025 Consult note Author Joe Clark [facility] Note Date/Time September 17, 2024 2: 00pm [facility] Medical Records Department [address] [place] [address] Anesthesia Postop Eval I 09/17/24 1358 MR#: [id number] Acct: [id number] Name: RAMONITA EL Rep #:[id number] : 1940 84 From: Joe Clark CRNA PCP: RAYO Pillai Status:ADM I N Y Race: C Location: ICU CVICU 201-1 Anesthesia: Postop Eval I Current Vital Signs Temperature: 98.0 F Pulse Rate: 72 Blood Pressure: 138/47 Respiratory Rate: 16 Pulse Ox: 98 Oxygen Delivery Method: Venturi Mask Oxygen Flow Rate (L/min): 8 Assessment Airway patent: Yes Spontaneous unlabored respirations: Yes Mental status: Awake nausea: No Vomiting: No Anesthesia Complication: No Fluid Hydration Crystalloid volume administer (ml): 1,700 Total IV fluid infused: 1,700 Progress Note Anesthesia document: Postop Eval 1 completed: Yes 09/17/24 1400 <Electronically signed by Joe granger CRNA> Date _ Joe Clark CRNA Cosigner Signature: Date CC: ~ Signed [facility] Work Phone: 1(205) 858-404408-13-2025 Procedure note [facility] Medical Records Department [address] [place] [address] Operative Report 09/17/24 1331 MR#: [id number] Acct: [id number] Name: RAMONITA EL Rep #:[id number] : 1940 84 From: Mello Demarco MD PCP: RAYO Pillai Status:ADM I N Location: ICU [place] [address] 1- Operative Report (Standard) Operative Information Date of Procedure: 09/17/24 Pre-Operative Diagnosis: right carotid stenosis Post-Operative Diagnosis: same Surgery/Procedure Performed: right carotid endarterectomy operations administrative assistant: Yes Telecommunication Tower Technician: Terell Schwarz Tasks completed by car rental sales assistant: Opening, Closing, Opening & closing, Hemostasis: Tie and Retracting Type of Anesthesia: General RN Documented Start/Stop Times: Operation Date: 09/17/24 10:00 Case Time Into Pre-Op 09/17/24 08:00 Anesthesia Start 09/17/24 10:39 Into Room 09/17/24 10:39 Procedure Start 09/17/24 11:15 Procedure End 09/17/24 13:38 Anesthesia End 09/17/24 13:46 Out of Room 09/17/24 13:46 Into Recovery 09/17/24 13:52 Out of Pre-Op Procedure Start Time: 11:15 Procedure Stop Time: 13:30 Select all DRAINS/GRAFTS/IMPLANTS that apply: Drains Drain details: 19 Fr ИВАН and Tissue Tissue details: bovine patch Estimated Blood Loss: 24 Specimen collected: Yes Description of specimen(s) removed: plaque Description of surgery: HPI: Patient is an 84-year-old male with severe asymptomatic right carotid artery stenosis. He is taken now for elective endarterectomy. Description of procedure: Upon obtaining informed consent and verification correct patient procedure site the patient was taken to the operating room was placed under general anesthesia. He was then positioned prepped and draped in usual sterile fashion a timeout was performed. Oblique incision wasmade along the anterior border the sternocleidomastoid and Bovie used to dissect down through subcutaneous tissue to the level of the platysma. This was then divided and self-retaining retractor put in position with further dissection carried down to the sternocleidomastoid. This was mobilized along the anterior border along posterolateral retraction and exposing the carotid sheath. Sharp dissecti on was used to dissect the jugular vein with the facial vein identified,ligated with silk ties, anddivided. The jugular vein was then retracted laterally exposing the carotid vessels. Sharp dissection was used to dissect free the proximal common carotid artery circumferentially with care taken to identify and protect the adjacent vagus nerve which was in its normal anatomic position. A right angle was then used to place a vessel loop and attention turned to the internal carotid artery. Sharp dissection was used to dissect free the vessel distal to the palpable and visible plaque with care taken to identify and protect the hypoglossal nerve. A right angle was used to place a vessel loop beyond the plaque and the patient was then heparinized allowed to circulate for 3 minutes with subsequent heparin dosing based on ACT results. Finally sharp dissection was used to dissect free the external carotid artery and a right angle used to place a vessel loop. The vessel then occluded first the internal followed by the common the external. A longitudinal arteriotomy was created with 11 blade and extended with Helms scissors onto the internal carotid artery beyond the plaque. A 10 [place] shunt was then placed first distally in the internal carotid artery allowed to backbleed before placing proximally in the common carotid artery. The shunt was interrogated Doppler and found to be pa tent with low resistance signal. We then performed her endarterectomy with a freer elevator with satisfactory endpoint distally on the internal carotid artery of the external carotid artery. The lumen was flushed with heparinized saline to clear debris in the distal endpoint tacked with 7-0 Proleneinterrupted suture. A bovine pericardial patch was then secured in position using a 6-0 Prolene in a running fashion. Prior to coming the suture line the shunt was withdrawn and the vessel was backbled. After completing the suture line the internal carotid artery was allowed to backbleed to the bifurcation and then reoccluded at the origin. Clamps were then removed from the external and the common carotid artery allowing 10 heartbeats of antegrade flow to flush into the external carotid artery before reestablishing flow into the internal carotid artery. After clamps released satisfactory hemostasis was observed and the vessels were interrogated with Doppler. The internal carotid artery was patent with low resistance signal in the external carotid artery patent with appropriate signal. Heparin was reversed with protamine and the incision inspected for hemostasis. Vistaseal topical hemostatic was applied and 19 Senegalese channel ИВАН placed via separate stab incision. The incision was then closed with 2-0 Vicryl, 3-0 Vicryl, 4-0 Monocryl and Dermabond for skin. At the conclusion the patient was awake from anesthesia moving extremities to command with cranial nerves intact. He was taken to the recovery room with anticipated admission to intensive care unit forhemodynamic and neurologic monitoring. Surgical Findings: see above Complications Complications: No 09/17/24 1544 Cosigner Signature (if applicable): CC: RAYO Baron; Dr. Mello Demarco MD~ Signed [facility]08-13-2025 Consult note [facility] Medical Records Department [address] [place] [address] Anesthesia Postop Eval I 09/17/24 1358 MR#: [id number] Acct: [id number] Name: RAMONITA EL Rep #:[id number] : 1940 84 From: Joe Clark CRNA PCP: RAYO Pillai Status:ADM I N Y Race: C Location: ICU CVICU 201-1 Anesthesia: Postop Eval I Current Vital Signs Temperature: 98.0 F Pulse Rate: 72 Blood Pressure: 138/47 Respiratory Rate: 16 Pulse Ox: 98 Oxygen Delivery Method: Venturi Mask Oxygen Flow Rate (L/min): 8 Assessment Airway patent: Yes Spontaneous unlabored respirations: Yes Mental status: Awake nausea: No Vomiting: No Anesthesia Complication: No Fluid Hydration Crystalloid volume administer (ml): 1,700 Total IV fluid infused: 1,700 Progress Note Anesthesia document: Postop Eval 1 completed: Yes 09/17/24 1400 y CUSTOMER SERVICE ASSISTANT> Date _ Joe Clark CUSTOMER SERVICE ASSISTANT Cosigner Signature: Date CC: ~ Signed [facility]08-13-2025 History and physical note Author Mello Demarco [facility] Note Date/Time September 17, 2024 10 :00am [facility] Medical Records Department [address] [place] [address] History & Physical Exam 09/17/24 1000 MR#: [id number] Acct: [id number] Name: RAMONITA EL Rep #:[id number] : 1940 84 From: Mello Demarco MD PCP: RAYO Pillai Status:ADM I N Location: [facility] AC-TB A-2 History and Physical Allergies cilostazol (From Pletal) Allergy (Intermediate, Verified 09/03/24 15:40) PT UNSURE OF REACTIONlisinopril Allergy (Intermediate, Verified 09/03/24 15:40) PT UNSURE OF REACTIONPenicillins Allergy (Verified 09/03/24 15:40) Hivesatorvastatin Adverse Reaction (Intermediate, Verified 09/03/24 15:40) myalgiapravastatin Adverse Reaction (Intermediate, Verified 09/03/24 15:40) myalgia Medications ?Medication ?Instructions ?Recorded ?Confirmed ?Type amlodipine 10 mg tablet 10 mg PO DAILY HYPERTENSION 05/02/16 History clopidogrel 75 mg tablet 75 mg PO DAILY BLOOD THINNER 05/02/16 History tamsulosin 0.4 mg capsule (Flomax) 0.4 mg PO DAILY PROSTATE 05/02/16 History metoprolol tartrate 100 mg tablet 100 mg PO BID HTN 11/09/20 09/03/24 Hist ory pantoprazole 20 mg tablet,delayed 20 mg PO DAILY GERD 11/09/20 09/03/24 Hi story release (Protonix) acetaminophen 500 mg tablet 500 mg PO Q4H PRN pain 08/05/24 09/03/24 History (Tylenol Extra Strength) losartan 25 mg tablet 25 mg PO QDAY 09/03/24 09/03/24 History Have you fallen in the past year?: [...] artery stent placement (08/10/06) Family History Mother CancerBrother Heart disease Social History Smoking Status: Heavy Smoker (>10/day) alcohol intake: current alcohol intake frequency: a few times a month substance use type: does not use HPI HPI HPI: RAMONITA EL, is a 84 M who presents to the office today for follow up discussionof asymptomatic right ICA stenosis. He has history of CAD and stress test as part of pre-op evaluation was abnormal. He underwent cardiac cath which revealedsome degree of disease which was not amenable [...] speech, No behavioral changes, Yes burning sensations, Noconfusion, No convulsions, No disequilibrium, No dizziness, No localized weakness, No frequent falls, No headache(s), No lack of coordination, No loss ofvision, No memory loss, Yes numbness, Yes other visual disturbances, No radicular pain, No restless legs, No sensory deficit, No syncope, Yes tingling, No tremor(s), No weakness and No other Exam Const General: cooperative, healthy appearing, comfortable, no acute distress and welldeveloped Nutritional Appearance: well nourished Orientation: alert, awake and oriented x3 HENMT Head: normocephalic and atraumatic Ears: hearing grossly normal bilaterally Nose: external nose normal Eyes General: appearance normal, both eyes and all related structures EOM: EOM intact bilaterally Neck Neck: normal visual inspection, full ROM and trachea midline Resp Effort & Inspection: normal respiratory effort, able to speak in complete sentences, symmetric chest movement, no audible wheezes, not labored, no stridorand no use of accessory muscles Cardio Rate: regular rate Rhythm: regular rhythm Pulses: brachial pulses present and radial pulses present Skin General: no rashes or lesions noted and no erythema Wounds: no wounds Neuro Cranial Nerves: CN's II-XI intact bilaterally and EOM intact bilaterally Speech: speech normal Gait: normal gait Motor: strength 5/5 throughout Sensory Exam: no sensory deficits noted Psych Appearance: grossly normal and well kempt Mental Status: mental status grossly normal Mood: congruent mood Speech and Movement: speech and movement normal Thought Content: normal Judgment: judgment good Coding Level of Care Code Off vis,est,level 3 Diagnoses Stenosis of right carotid artery I65.21 Assessment and Plan Assessment and Plan (1) Stenosis of right carotid artery: Status: Chronic Plan: -discussed risks/benefits/alternative regarding his asymptomatic stenosis -not ideal lesion for stent given calcification -discussed that he is at some increased risk for nichol-op cardiac complication though felt to still be acceptable risk to perform here -right CEA 09/17/24 1000 <Electronically signed by Mello Demarco MD> Cosigner Signature (if applicable): CC: RAYO Baron; Dr. Mello Demarco MD~ Signed [facility] Work Phone: 1(615) 946-128808-13-2025 Consult note Author Ryne Vinson [facility] Note Date/Time September 17, 2024 9: 13am [facility] Medical Records Department [address] [place] [address] Pre-Anesthesia Evaluation 09/17/24 0903 MR#: [id number] Acct: [id number] Name: RAMONITA EL Rep #:[id number] : 1940 84 From: Ryne Self PCP: RAYO Pillai Status:ADM I N Y Race: C Location: [facility]- ASA Classification* ASA Classification ASA Classification: 3 Assessment & Plan Anesthesia* Anesthesia Assessment Anesthesia Assessment: Discussed sedation and/or anesthesia options, risks, benefits, and alternatives with patient/parents/legal guardian/POA. Questions invited. The patient/parents/legal guardian/POA seems to understand and agrees to proceedwith anesthesia plan. Reviewed the physical assessment, medical history, allergy history and patient home medications list prior to surgery/procedure/anesthetic and documented any changes. Performed airway and anesthesia risk assessments. Anesthesia Type Anesthesia Type: General History Source History Obtained from:: Patient, Chart and - (Daughter present in the room spokein detail about the risks of brain perfusion given the fact that the other side of carotid is already stenosed. All questions were answered.) Anesthesia Focused Assessment* Temperature: 97.4 F Pulse Rate: 55 Blood Pressure: 136/79 Respiratory Rate: 16 Pulse Ox: 96 Oxygen Delivery Method: Room Air Airway Assessment Mouth opens: >3 cm Mallampati Score: II Labs Anesthesia Preop lab: CBC WBC 12.0 K/mm3 (4.4-11.0) H 08/15/24 07:06 5 RBC 5.11 M/mm3 (4.6-6.2) 08/15/24 07:06 08/15/24 Hgb 16.1 g/dL (13.0-16.5) 08/15/24 07:06 08/15/24 Hct 47.1 % (40-54) 08/15/24 07:06 08/15/24 Plt Count 213 K/mm3 (150-450) 08/15/24 07:06 08/15/24 CHEMISTRY Potassium 4.1 mmol/L (3.3-5.1) 08/15/24 07:06 08/15/24 Sodium 136 mmol/L (133-145) 08/15/24 07:06 08/15/24 Magnesium 1.5 mg/dL (1.8-2.4) L 05/05/16 06:02 05/05/16 Phosphorus 2.1 mg/dL (2.5-4.9) L 05/04/16 05:20 05/04/16 BUN 15 mg/dL (4-19) 08/15/24 07:06 08/15/24 Creatinine 0.65 mg/dL (0.70-1.20) L 08/15/24 07:06 Glucose 99 mg/dL (70-99) 08/15/24 07:06 08/15/24 COAG PT 12.8 SECONDS (11.7-14.9) 12/02/20 10:24 Pre-Assessment Diagnosis/Proposed Procedure Planned Operative Procedure(s): (R) Right Carotid Endarterectomy Anesthesia History 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 When Was Last Pacemaker Check QUESTION #4 FULL TEXT: You/Your Family Experience fever (hyperthermia) with Anesthesia Last Oral Intake Last Oral intake: Last Oral Intake NPO since 21:00 09/17/24 08:09 Meds taken in AM with sips of Yes 09/17/24 08:09 water? Meds patient instructed to take am of surgery PONV PONV - warehouse selector: PONV - warehouse selector Female No 09/05/24 11:02 HX of Motion Sickness No 09/05/24 11:02 HX of N/V After Surgery No 09/05/24 11:02 Non-Smoker No 09/05/24 11:02 Duration of Surgery greater Yes 09/05/24 11:02 than 60 minutes Number of Risk Factors 1 09/05/24 11:02 PONV Score Low Risk 09/05/24 11:02 Height & Weight Height & Weight: Anesthesia: Height & Weight Height 5 ft 8 in 09/17/24 08:09 Weight: 69 kg 09/17/24 08:09 Body Mass Index (BMI) 23.1 09/17/24 08:09 Respiratory Assessment Respiratory Assessment - warehouse selector: Respiratory Tract Infection Hx - warehouse selector Hx Respiratory Tract Infection No 09/05/24 11:02 STOP Sleep Apnea STOP Sleep Apnea - warehouse selector: STOP Sleep Apnea - warehouse selector Hx Hypertension Yes 09/05/24 11:02 Hx Sleep [...] Tobacco Use History Tobacco Use History - warehouse selector: Tobacco Use History - warehouse selector Tobacco Use Smoking Status Heavy Smoker (>10/day) 09/05/24 11:02 Hx Tobacco Use No 09/05/24 11:02 Years Smoking 60 09/05/24 11:02 Packs Smoked per Day 1 09/05/24 11:02 Smoking Cessation Date was within the last 15 years Hx Smoking Cessation Date Hx Smoking Cessation No 09/05/24 11:02 Counseling Hematologic Medial History 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 Specify any problems Hx of Preganancy in last 3 N/A 09/05/24 11:02 Months Nurse Filling Out Transfusion MARK 09/05/24 11:02 & Questions: Date: 09/05/24 09/05/24 11:02 Time: 11:02 09/05/24 11:02 Patient unable to answer at this time (ie. 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: /Reproductive Hx- warehouse selector Hx Now No 09/05/24 11:02 Gestational Age (in weeks): EDC: Hx Hx Para Hx Section SAB No 09/05/24 11:02 Active Medications Active Medications: Current Medications Generic Name Dose Route Start Last Admin Trade Name Freq PRN Reason Stop Dose Admin Clindamycin Phosphate 900 mg in 50 mls @ 75 mls/hr 09/17/24 10:00 Cleocin IV 09/17/24 10:39 INTRAOP ONE Lactated Ringer's 1,000 mls @ 15 mls/hr 09/17/24 08:30 09/17/24 08:23 IV 15 mls/hr .Q48H ELLIE Administration PFSH Medical History (Updated 09/05/24 @ 11:13 by [...] mg tablet 10 mg PO DAILY HYPERTENSION 05/02/16 09/17/24 History clopidogrel 75 mg tablet 75 mg PO DAILY BLOOD THINNER 05/02/16 09/17/24 History tamsulosin 0.4 mg capsule (Flomax) 0.4 mg PO DAILY PRO STATE 05/02/16 09/17/24 History metoprolol tartrate 100 mg tablet 100 mg PO BID HTN 09/17/24 History pantoprazole 20 mg tablet,delayed 20 mg PO DAILY GERD 11/09/20 09/17/24 History release (Protonix) acetaminophen 500 mg tablet 500 mg PO Q4H PRN pain 03/01 Unknown History (Tylenol Extra Strength) losartan 25 mg tablet 25 mg PO QDAY bp 09/03/24 History brimonidine 0.2 % eye drops 1 drp ophthalmic (eye) BID pressure 09/05/24 09/17/24 History latanoprost 0.005 % eye drops drp ophthalmic (eye) pre ssure 09/05/24 09/17/24 History timolol maleate 0.5 % eye drops 1 drp ophthalmic (eye) BID pressure 09/05/24 09/17/24 History Allergy/AdvReac Type Severity Reaction Status Date / Time cilostazol (From Pletal) Allergy Intermediate PT UNSURE Verified 09/05/24 10:54 OF REACTION lisinopril Allergy Intermediate PT UNSURE Verified 09/05/24 10:54 OF REACTION Penicillins Allergy Hives Verified 09/05/24 10:54 atorvastatin AdvReac Intermediate myalgia Verified 09/05/24 10:54 pravastatin AdvReac Intermediate myalgia Verified 09/05/24 10:54 Family History Mother Cancer Brother Heart disease Surgical History (Updated 09/05/24 @ 11:13 by Noris Silver) Hx of cardiac cath History of colonoscopy History of angioplasty of peripheral vessel (09/28/09) History of coronary artery stent placement (08/10/06) Social History Smoking Status: Heavy Smoker (>10/day) alcohol intake: current alcohol intake frequency: a few times a month substance use type: does not use Review of Systems (Anesthesia) ROS Narrative System reviewed and no additional complaints, except as documented. 09/17/24912 <Electronically signed by Ryne Vinson MD> Date _ Ryne Vinson MD Cosigner Signature: Date CC: ~ Signed [facility] Work Phone: [phone]) 215-965808-13-2025 History and physical note [facility] Medical Records Department [address] [place] [id number] History & Physical Exam 09/17/24 1000 MR#: [id number] Acct: [id number] Name: RAMONITA EL Rep #:[id number] : 1940 84 From: Mello Demarco MD PCP: Karla Baron VICE CHAIRChar Status:ADM I N Location: [facility] AC-TB A-2 History and Physical Allergies cilostazol (From Pletal) Allergy (Intermediate, Verified 09/03/24 15:40) PT UNSURE OF REACTIONlisinopril Allergy (Intermediate, Verified 09/03/24 15:40) PT UNSURE OF REACTIONPenicillins Allergy (Verified 09/03/24 15:40) Hivesatorvastatin Adverse Reaction (Intermediate, Verified 09/03/24 15:40) myalgiapravastatin Adverse Reaction (Intermediate, Verified 09/03/24 15:40) myalgia Medications ?Medication ?Instructions ?Recorded ?Confirmed ?Type amlodipine 10 mg tablet 10 mg PO DAILY HYPERTENSION 05/02/16 History clopidogrel 75 mg tablet 75 mg PO DAILY BLOOD THINNER 05/02/16 History tamsulosin 0.4 mg capsule (Flomax) 0.4 mg PO DAILY PROSTATE 05/02/16 History metoprolol tartrate 100 mg tablet 100 mg PO BID HTN 11/09/20 09/03/24 Hist ory pantoprazole 20 mg tablet,delayed 20 mg PO DAILY GERD 11/09/20 09/03/24 Hi story release (Protonix) acetaminophen 500 mg tablet 500 mg PO Q4H PRN pain 08/05/24 09/03/24 History (Tylenol Extra Strength) losartan 25 mg tablet 25 mg PO QDAY 09/03/24 09/03/24 History Have you fallen in the past year?: [...] artery stent placement (08/10/06) Family History Mother CancerBrother Heart disease Social History Smoking Status: Heavy Smoker (>10/day) alcohol intake: current alcohol intake frequency: a few times a month substance use type: does not use HPI HPI HPI: RAMONITA EL, is a 84 M who presents to the office today for follow up discussionof asymptomatic right ICA stenosis. He has history of CAD and stress test as part of pre-op evaluation was abnormal. Heunderwent cardiac cath which revealedsome degree of disease which was not amenable [...] speech, No behavioral changes, Yes burning sensations, Noconfusion, No convulsions, No disequilibrium, No dizziness, No localized weakness, No frequent falls, No headache(s), No lack of coordination, No loss ofvision, No memory loss, Yes numbness, Yes other visual disturbances, No radicular pain, No restless legs, No sensorydeficit, No syncope, Yes tingling, No tremor(s), No weakness and No other Exam Const General: cooperative, healthy appearing, comfortable, no acute distress and welldeveloped Nutritional Appearance: well nourished Orientation: alert, awake and oriented x3 HENMT Head: normocephalic and atraumatic Ears: hearing grossly normal bilaterally Nose: external nose normal Eyes General: appearance normal, both eyes and all related structures EOM: EOM intact bilaterally Neck Neck: normal visual inspection, full ROM and trachea midline Resp Effort & Inspection: normal respiratory effort, able to speak in complete sentences, symmetric chest movement, no audible wheezes, not labored, no stridorand no use of accessory muscles Cardio Rate: regular rate Rhythm: regular rhythm Pulses: brachial pulses present and radial pulses present Skin General: no rashes or lesions noted and no erythema Wounds: no wounds Neuro Cranial Nerves: CN's II-XI intact bilaterally and EOM intact bilaterally Speech: speech normal Gait: normal gait Motor: strength 5/5 throughout Sensory Exam: no sensory deficits noted Psych Appearance: grossly normal and well kempt Mental Status: mental status grossly normal Mood: congruent mood Speech and Movement: speech and movement normal Thought Content: normal Judgment: judgment good Coding Level of Care Code Off vis,est,level 3 Diagnoses Stenosis of right carotid artery I65.21 Assessment and Plan Assessment and Plan (1) Stenosis of right carotid artery: Status: Chronic Plan: -discussed risks/benefits/alternative regarding his asymptomatic stenosis -not ideal lesion for stent given calcification -discussed that he is at some increased risk for nichol-op cardiac complication though felt to still be acceptable risk to perform here -right CEA 09/17/24 1000 Cosigner Signature (if applicable): CC: VICE CHAIR-C Karla Baron; Dr. Mello Demarco MD~ Signed [facility]08-13-2025 [facility] Medical Records Department [address] [place] [address] History Physical Exam 09/17/24 1000 MR#: [id number] Acct: [id number] Name: RAMONITA EL Rep #: [id number] : 1940 84 From: Mello Demarco MD PCP: RAYO Pillai Status:ADM IN Location: [facility] AC-TBA-2 History and Physical Allergies cilostazol (From Pletal) Allergy (Intermediate, Verified 09/03/24 15:40) PT UNSURE OF REACTIONlisinopril Allergy (Intermediate, Verified 09/03/24 15:40) PT UNSURE OF REACTIONPenicillins Allergy (Verified 09/03/24 15:40) Hivesatorvastatin Adverse Reaction (Intermediate, Verified 09/03/24 15:40) myalgiapravastatin Adverse Reaction (Intermediate, Verified 09/03/24 15:40) myalgia Medications ???Medication ???Instructions ???Recorded ???Confirmed ???Type amlodipine 10 mg tablet 10 mg PO DAILY HYPERTENSION 05/02/16 09/03/24 Hist ory clopidogrel 75 mg tablet 75 mg PO DAILY BLOOD THINNER 05/02/16 09/03/24 His tory tamsulosin 0.4 mg capsule (Flomax) 0.4 mg PO DAILY PROSTATE 05/02/16 09/03/24 History metoprolol tartrate 100 mg tablet 100 mg PO BID HTN 11/09/20 09/03/24 History pantoprazole 20 mg tablet,delayed 20 mg PO DAILY GERD 11/09/20 09/03/24 History release (Protonix) acetaminophen 500 mg tablet 500 mg PO Q4H PRN pain 08/05/24 09/03/24 History (Tylenol Extra Strength) losartan 25 mg tablet 25 mg PO QDAY 09/03/24 09/03/24 History Have you fallen in the past year?: [...] artery stent placement (08/10/06) Family History Mother CancerBrother Heart disease Social History Smoking Status: Heavy [...] Yes burning sensations, No confusion, No convulsions, No disequilibrium, No dizziness, No (more content not included)...[facility]08-13-2025 Consult note [facility] Medical Records Department [address] [place] [address] Pre-Anesthesia Evaluation 09/17/24902 MR#: [id number] Acct: [id number] Name: RAMONITA EL Rep #:[id number] : 1940 84 From: Ryne Self PCP: RAYO Pillai Status:ADM I N Y Race: C Location: [facility]- ASA Classification* ASA Classification ASA Classification: 3 Assessment & Plan Anesthesia* Anesthesia Assessment Anesthesia Assessment: Discussed sedation and/or anesthesia options, risks, benefits, and alternatives with patient/parents/legal guardian/POA. Questions invited. The patient/parents/legal guardian/POA seems to understand and agrees to proceedwith anesthesia plan. Reviewed the physical assessment, medical history, allergy history and patient home medications list prior to surgery/procedure/anesthetic and documented any changes. Performed airway and anesthesia risk assessments. Anesthesia Type Anesthesia Type: General History Source History Obtained from:: Patient, Chart and - (Daughter present in the room spokein detail about therisks of brain perfusion given the fact that the other side of carotid is already stenosed. All questions were answered.) Anesthesia Focused Assessment* Temperature: 97.4 F Pulse Rate: 55 Blood Pressure: 136/79 Respiratory Rate: 16 Pulse Ox: 96 Oxygen Delivery Method: Room Air Airway Assessment Mouth opens: >3 cm Mallampati Score: II Labs Anesthesia Preop lab: CBC WBC 12.0 K/mm3 (4.4-11.0) H 08/15/24 07: 5 RBC 5.11 M/mm3 (4.6-6.2) 08/15/24 07:08/15/24 Hgb 16.1 g/dL (13.0-16.5) 08/15/24 07:08/15/24 Hct 47.1 % (40-54) 08/15/24 07:06 08/15/24 Plt Count 213 K/mm3 (150-450) 08/15/24 07:06 08/15/24 CHEMISTRY Potassium 4.1 mmol/L (3.3-5.1) 08/15/24 07:06 08/15/24 Sodium 136 mmol/L (133-145) 08/15/24 07:06 08/15/24 Magnesium 1.5 mg/dL (1.8-2.4) L 05/05/16 06:02 05/05/16 Phosphorus 2.1 mg/dL (2.5-4.9) L 05/04/16 05:20 05/04/16 BUN 15 mg/dL (4-19) 08/15/24 07:06 08/15/24 Creatinine 0.65 mg/dL (0.70-1.20) L 08/15/24 07:06 Glucose 99 mg/dL (70-99) 08/15/24 07:06 08/15/24 COAG PT 12.8 SECONDS (11.7-14.9) 12/02/20 10:24 Pre-Assessment Diagnosis/Proposed Procedure Planned Operative Procedure(s): (R) Right Carotid Endarterectomy Anesthesia History 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 When Was Last Pacemaker Check QUESTION #4 FULL TEXT: You/Your Family Experience fever (hyperthermia) with Anesthesia Last Oral Intake Last Oral intake: Last Oral Intake NPO since 21:00 09/17/24 08:09 Meds taken in AM with sips of Yes 09/17/24 08:09 water? Meds patient instructed to take am of surgery PONV PONV - warehouse selector: PONV - warehouse selector Female No 09/05/24 11:02 HX of Motion Sickness No 09/05/24 11:02 HX of N/V After Surgery No 09/05/24 11:02 Non-Smoker No 09/05/24 11:02 Duration of Surgery greater Yes 09/05/24 11:02 than 60 minutes Number of Risk Factors 1 09/05/24 11:02 PONV Score Low Risk 09/05/24 11:02 Height & Weight Height & Weight: Anesthesia: Height & Weight Height 5 ft 8 in 09/17/24 08:09 Weight: 69 kg 09/17/24 08:09 Body Mass Index (BMI) 23.1 09/17/24 08:09 Respiratory Assessment Respiratory Assessment - warehouse selector: Respiratory Tract Infection Hx - warehouse selector Hx Respiratory Tract Infection No 09/05/24 11:02 STOP Sleep Apnea STOP Sleep Apnea - warehouse selector: STOP Sleep Apnea - warehouse selector Hx Hypertension Yes 09/05/24 11:02 Hx Sleep [...] than talking or can be heard through closeddoors)? 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 Specify any problems Hx of Preganancy in last 3 N/A 09/05/24 11:02 Months Nurse Filling Out Transfusion JZOLLINGE 09/05/24 11:02 & Questions: Date: 09/05/24 09/05/24 11:02 Time: 11:02 09/05/24 11:02 Patient unable to answer at this time (ie. 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: /Reproductive Hx- warehouse selector Hx Now No 09/05/24 11:02 Gestational Age (in weeks): EDC: Hx Hx Para Hx Section SAB No 09/05/24 11:02 Active Medications Active Medications: Current Medications Generic Name Dose Route Start Last Admin Trade Name Freq PRN Reason Stop Dose Admin Clindamycin Phosphate 900 mg in 50 mls @ 75 mls/hr 09/17/24 10:00 Cleocin IV 09/17/24 10:39 INTRAOP ONE Lactated Ringer's 1,000 mls @ 15 mls/hr 09/17/24 08:30 09/17/24 08:23 IV 15 mls/hr .Q48H ELLIE Administration PFSH Medical History (Updated 09/05/24 @ 11:13 by [...] mg tablet 10 mg PO DAILY HYPERTENSION 05/02/16 09/17/24 History clopidogrel 75 mg tablet 75 mg PO DAILY BLOOD THINNER 05/02/16 09/17/24 History tamsulosin 0.4 mg capsule (Flomax) 0.4 mg PO DAILY PRO STATE 05/02/16 09/17/24 History metoprolol tartrate 100 mg tablet 100 mg PO BID HTN 09/17/24 History pantoprazole 20 mg tablet,delayed 20 mg PO DAILY GERD 11/09/20 09/17/24 History release (Protonix) acetaminophen 500 mg tablet 500 mg PO Q4H PRN pain 03/01 Unknown History (Tylenol Extra Strength) losartan 25 mg tablet 25 mg PO QDAY bp 09/03/24 History brimonidine 0.2 % eye drops 1 drp ophthalmic (eye) BID pressure 09/05/24 09/17/24 History latanoprost 0.005 % eye drops drp ophthalmic (eye) pre ssure 09/05/24 09/17/24 History timolol maleate 0.5 % eye drops 1 drp ophthalmic (eye) BID pressure 09/05/24 09/17/24 History Allergy/AdvReac Type Severity Reaction Status Date / Time cilostazol (From Pletal) Allergy Intermediate PT UNSURE Verified 09/05/24 10:54 OF REACTION lisinopril Allergy Intermediate PT UNSURE Verified 09/05/24 10:54 OF REACTION Penicillins Allergy Hives Verified 09/05/24 10:54 atorvastatin AdvReac Intermediate myalgia Verified 09/05/24 10:54 pravastatin AdvReac Intermediate myalgia Verified 09/05/24 10:54 Family History Mother Cancer Brother Heart disease Surgical History (Updated 09/05/24 @ 11:13 by Noris Silver) Hx of cardiac cath History of colonoscopy History of angioplasty of peripheral vessel (09/28/09) History of coronary artery stent placement (08/10/06) Social History Smoking Status: Heavy Smoker (>10/day) alcohol intake: current alcohol intake frequency: a few times a month substance use type: does not use Review of Systems (Anesthesia) ROS Narrative System reviewed and no additional complaints, except as documented. 09/17/24 0913 > Date _ Ryne Abdiignguille Signature: Date CC: ~ Signed [place] [id number] Telephone encounter Note* Telephone Encounter - Marina Mathews - 08/29/2024 8:54 AM EDT Patient asking to have 1 week of medication sent to his local pharmacy. Medication will not arrive before patient is out of medication. Local pharmacy: [facility]07-25-2025 Miscellaneous Notes* Telephone Encounter - Marina Mathews - 08/29/2024 8:54 AM EDT Patient asking to have 1 week of medication sent to his local pharmacy. Medication will not arrive before patient is out of medication. Local pharmacy: [facility] * Telephone Encounter - Danae Fuentes APRN.CNP - 08/29/2024 8:44 AM EDT The following approved medication requests have been transmitted electronically. Requested Prescriptions Pending Prescriptions Disp Refills losartan (COZAAR) 25 mg tablet 14 tablet 0 Sig: Take 1 tablet by mouth once daily for 14 days. Danae Fuentes APRN.CNP * Telephone Encounter - Nemo Henry RN - 08/29/2024 8:32 AM EDT Patient calls to report he needs a refill of losartan. Patient has refills on file with [facility] but is completely out. Pended 14 day supply while patient figures out with [facility] when they are going to deliver medication. Nemo Henry RN documented [facility] Telephone encounter Note * Telephone Encounter - Danae Fuentes APRN.CNP - 08/29/2024 8:44 AM EDT The following approved medication requests have been transmitted electronically. Requested Prescriptions Pending Prescriptions Disp Refills losartan (COZAAR) 25 mg tablet 14 tablet 0 Sig: Take 1 tablet by mouth once daily for 14 days. Danae Fuentes APRN.CNP [facility]07-25-2025 Telephone encounter Note* Telephone Encounter - Nemo Henry RN - 08/29/2024 8:32 AM EDT Patient calls to report he needs a refill of losartan. Patient has refills on file with [facility] but is completely out. Pended 14 day supply while patient figures out with [facility] when they are going to deliver medication. Nemo Henry RN [facility]07-01-2025 Telephone encounter Note* Telephone Encounter - Karla Baron APRN.CNP - 08/05/2024 4:40 PM EDT Noted. Karla Baron APRN.CNP [facility]07-01-2025 Miscellaneous Notes* Telephone Encounter - Karla Baron APRN.CNP - 08/05/2024 4:40 PM EDT Noted. Karla Baron APRN.CNP * Telephone Encounter - Heavenly Valdes LPN - 08/05/2024 3:51 PM EDT Unable to return call to Lolly at [facility] d/t no number listed. Phoned pt, notified of provider response. He states he stopped seeing Dr. Fitzgerald because the gabapentin and tramadol were not helpful. He states he saw Ortho and received an injection in his L knee and that has been very helpful. He plans to continue to follow up with Ortho. Heavenly Valdes LPN * Telephone Encounter - Karla Baron APRN.MARK - 08/05/2024 3:10 PM EDT Agree that he should only be taking no more than 8 tylenol a day. If the pain is related to the foot, then that really needs to be addressed by the manager web application that did the procedure. He is also following with pain management Dr Fitzgerald and being prescribed gabapentin and tramadol. * Telephone Encounter - Ching Mata LPN - 08/05/2024 2:07 PM EDT Lolly from [facility] calling she had called the patient in preparation for his Carotid Endarterectomy for later this month. Patient told him her had his large toenails removed 08/04 by provider [facility] and he is taking tylenol for pain. She said he told her I take 500 mg one tabletevery hour or two. She explained not to take that many, only could have 8 tablets in a day. [facility] and [facility] concerning this. She said he takes plavix so did not want him taking to much tylenol. She said he was recently see [facility] so he was [facility] for surgery. Asking if he needs something for pain can VICE CHAIR advise, she said he lives alone and needs some guidance on his medications. documented in this encounter[facility] Telephone encounter Note * Telephone Encounter - Heavenly Valdes LPN - 08/05/2024 3:51 PM EDT Unable to return call to Lolly at [facility] d/t no number listed. Phoned pt, notified of provider response. He states he stopped seeing Dr. Fitzgerald because the gabapentin and tramadol were not helpful. He states he saw Ortho and received an injection in his L knee and that has been very helpful. He plans to continue to follow up with Ortho. Heavenly Valdes LPN [facility]07-01-2025 Telephone encounter Note* Telephone Encounter - Karla Baron APRN.MARK - 08/05/2024 3:10 PM EDT Agree that he should only be taking no more than 8 tylenol a day. If the pain is related to the foot, then that really needs to be addressed by the manager web application that did the procedure. He is also following with pain management Dr Fitzgerald and being prescribed gabapentin and tramadol. [facility]07-01-2025 Telephone encounter Note* Telephone Encounter - Ching Mata LPN - 08/05/2024 2:07 PM EDT Lolly from [facility] calling she had called the patient in preparation for his Carotid Endarterectomy for later this month. Patient told him her had his large toenails removed 08/04 by provider [facility] and he is taking tylenol for pain. She said he told her I take 500 mg one tabletevery hour or two. She explained not to take that many, only could have 8 tablets in a day. [facility] and [facility] concerning this. She said he takes plavix so did not want him taking to much tylenol. She said he was recently see [facility] so [facility] was [facility]. Asking if he needs something for pain can VICE CHAIR advise, she said he lives alone and needs some guidance on his medications. [facility]06-30-2025 Evaluation note* Diagnosis Onset Date Resolution Status Admit Date Osteoarthritis of left knee acute August 04, 2024 1:43pm Acute pain of left knee inactive J une 2024 1:43pm Stenosis of right carotid artery chronic September 03, 2024 3:21pm Carotid stenosis, right chronic A ugust 2024 1:25pm Carotid stenosis, right chronic A ugust 2024 9:13am Carotid stenosis, right chronic S eptember 2024 9:44am Spondylolisthesis acute November 14, 2024 10:04am [facility] Work Phone: 1(134) 302-131206-24-2025 Discharge summary [facility] Medical Records Department [address] [place] [address] Emergency Department Summary 07/29/24 MR#: [id number] Acct: [id number] Name: RAMONITA EL Rep #:[id number] : 1940 84 From: Nilesh Mccullough MD [...] both. He denies any systemic symptoms such asfevers or chills. He denies any redness or warmth or swelling. He cannot remember any injury. He mostly feels discomfort in the popliteal space. No significant calf pain with this but he does get bila teral calf and thigh pain with exertion, maybe 100 feet or so, he states that is been going on for years and unchanged. He is scheduled for vascular surgery on his carotid with Dr. Demarco a couple weeks from now. He takes clopidogrel. No history of DVT or PE, and he has not been immobilized recently or hospitalized or had any recent surgeries. [facility] Medical History Stenosis of right [...] a Orlando's cyst although thepatient presents during atime when vascular ultrasound is not available. My suspicion for DVT is extremely low. He does not have specific risk for that, has never had 1 before, he does not have any peripheral edema or calf tenderness, and he is on clopidogrel. I am going to place him in an Jerry wrap, give him a short courseof prednisone to see if that helps and refer him to orthopedics. He is comfortable with that plan. Radiography Diagnostic Testing: Clinical Impression(s) from Imaging Studies Knee X-Ray 07/29/24 06:40 IMPRESSION: There is no fracture or dislocation. There is a small visible joint effusion. Reading Location: [facility] Discharge Plan Triage Chief Complaint: Lower Extremity [...] As soon as possible Karla Baron NP, VICE CHAIR-C [Primary Care Provider] - Activity Restrictions/Additional Instructions: Start the prednisone prescription tomorrow 07/30 as you received the initial dosein the emergency department. Print Language: Maltese Disposition Disposition: Home, Self Care What to do if you have Problems For any increased pain, shortness of breath, bleeding, nausea or vomiting, chestpain, or any unexpected problems, contact your Primary Care Provider. Call [facility] ([phone]) or report tothe closest Emergency Room. Call 911 if necessary. 07/29/24 [id number] Cosigner Signature (if applicable): CC: RAYO Baron ~ Signed [facility]06-24-2025 Radiology Diagnostic study note [facility] Imaging Services [address] [place], [place] [address] Knee 4 or More Views MR#: [id number] Acct: [id number] Name: RAMONITA EL Rep #: [id number] : 1940 M 84 From: Karthikeyan Alexandra MD PCP: RAYO Pillai Status: PRE E R Study:Knee 4 or More Views Date of Exam: 07/29/24 Exam# [id number] Ordering Dr: Alysia Mccullough MD PROCEDURE: KNEE [...] visible joint effusion. Reading Location: [facility] CC: VICE CHAIR-C Karla Baron; Dr. Nilesh Mccullough MD ~ Instructional Technologist: Signed [facility]06-20-2025 Radiology Diagnostic study note [facility] Imaging Services [address] [place], [place] [address] Lumbar Spine 2 or 3 Views MR#: [id number] Acct: [id number] Name: RAMONITA EL Rep #: [id number] : 1940 M 84 From: Rosangela Barger MD PCP: Karla Baron, ECTOR-C Status: REG C LI Study:Lumbar Spine 2 or 3 Views Date of Exam: 07/24/24 Exam# [id number] Ordering Dr: Corrina Fitzgerald MD PROCEDURE: LUMBAR [...] lordosis. S shaped degenerative scoliosis. Reading Location: [place] [address] CC: VICE CHAIR-C Karla Baron; Dr. 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 Imaging Services [address] [place], [place] [address] CTA Head AND Neck W/ Contrast MR#: [id number] Acct: [id number] Name: RAMONITA EL Rep #: [id number] : 1940 M 84 From: Anthony Berrios MD PCP: Karla Baron, ECTOR-C Status: REG C MALVIN Study:CTA Head AND Neck W/ Contrast Date of E xam: 07/03/24 Exam# [id number] Ordering Dr: Barney Strong PROCEDURE: CTA HEAD [...] Calcific plaques. LEFT Vertebral: Calcific plaques. Anatomy: In[place] of [place] anatomy is normal. Aneurysm or [...] involving both internal carotid arteries. Reading Location: [id number] CC: RAYO Baron; KRISTI Garza ~ Instructional Technologist: Signed [facility]05-20-2025 NoteHNO ID: [id number] Author: KARLA BARON APRN.FURNITURE ASSEMBLER Service: ? Author Type: Nurse Practitioner Type: [...] episode of care unspecified 08/10/06 STENT placed [facility] Alcohol abuse 05/22/2013 Chronic anxiety 10/22/2017 [...] gesture Radius fracture 06/21/2013 See scanned documents [facility] Tobacco abuse 05/22/2013 Urinary calculus, [...] Use Smoking status: Every (more content not included)...[facility] 06-03-2024 Evaluation note* Diagnosis Onset Date Resolution Status Admit Date Carotid stenosis, right acute A pril 2024 10:38am 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 acute Apri l 2024 10:38am [facility] Work Phone: 1(846) 691-557204-29-2025 Evaluation note* Diagnosis Onset Date Resolution Status Admit Date 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 acute Apri l 2024 10:38am Carotid stenosis, right chronic A pril 2024 10:38am Carotid stenosis, right chronic J une 2024 1:47pm [facility] Work Phone: 1(541) 198-823204-29-2025 Evaluation note* Diagnosis Onset Date Resolution Status Admit Date 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 acute Apri l 2024 10:38am Carotid stenosis, right chronic A pril 2024 10:38am Carotid stenosis, right chronic J une 2024 1:47pm Encounter for pre-operative cardiovascular clearance acute July 302024 1:17pm [facility] Work Phone: 1(567) 237-380004-29-2025 Evaluation note* Diagnosis Onset Date Resolution Status Admit Date 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 acute Apri l 2024 10:38am Carotid stenosis, right chronic A pril 2024 10:38am Carotid stenosis, right chronic J une 2024 1:47pm Encounter for pre-operative cardiovascular clearance acute July 302024 1:17pm 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, 2006 acute July 30, 2024 1:17pm Essential hypertension chronic Ju 2024 1:17pm [facility] Work Phone: 1(391) 831-396004-29-2025 Evaluation note* Diagnosis Onset Date Resolution Status [...] left knee acute August 04, 2024 1:43pm [facility] Work Phone: 1(362) 765-895004-29-2025 Evaluation note* Diagnosis Onset Date Resolution Status Admit Date 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 acute Apr l 2024 10:38am Carotid stenosis, right chronic [...] left knee inactive J une 2024 1:43pm [facility] Work Phone: 1(826) 275-594404-29-2025 Evaluation note* Diagnosis Onset Date Resolution Status Admit Date 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 acute June 03, 2024 10:38am Carotid stenosis, right chronic A [...] left knee inactive J une 2024 1:43pm Stenosis of right carotid artery chronic September 03, 2024 3:21pm Carotid stenosis, right chronic A ugust 2024 1:25pm [facility] Work Phone: 1(260) 534-213304-23-2025 Miscellaneous Notes* Telephone Encounter - Sandy Cardoza RN - 05/28/2024 2:54 PM EDT Called to confirm that fax went through. Per Smiley in scheduling, she received the paperwork and faxed it to [facility]. She gave their phone number of [phone]. Called and had to leave a msg. [...] yesterday and she sent a referral to [facility] while he was in the office. He states he spoke with them and they did not receive any referralor paperwork. Called and spoke with scheduling for vascular surgery and they state they did not receive anything. Referral order, carotid artery ultrasound results and Karla's office note faxed to [facility] vascular surgery at [phone]. documented in this [facility] Telephone encounter Note * Telephone Encounter - Sandy Cardoza RN - 05/28/2024 2:54 PM EDT Called to confirm that fax went through. Per Smiley in scheduling, she received the paperwork and faxed it to [facility]. She gave their phone number of [phone]. Called and had to leave a msg. LM stating pt's name and and the need for referral and to confirm they had received the order. Left the pt's phone number and asked them to contact him. [facility]04-23-2025 Telephone encounter Note* Telephone Encounter - Sandy Cardoza RN - 05/28/2024 2:15 PM EDT Pt calling in and states he saw Karla Tod yesterday and she sent a referral to [facility] Vascular Surgery while he was in the office. He states he spoke with them and they did not receive any referralor paperwork. Called and spoke with scheduling for vascular surgery and they state they did not receive anything. Referral order, carotid artery ultrasound results and Karla's office note faxed to [facility] vascular surgery at [phone]. [facility]04-22-2025 NoteHNO ID: [id number] Author: KARLA BARON APRN.FURNITURE ASSEMBLER Service: ? Author Type: Nurse Practitioner Type: [...] more they could do. 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 [facility]04-22-2025 History of Present illness Narrative* Karla Baron APRN.FURNITURE ASSEMBLER - 05/27/2024 5:16 PM EDT This is [...] more they could do. - Has seen invasive cardiovascular technologist in the past but is reluctant to [...] Most recent visit was last week at [facility] for a medication lodged in the [...] episode of care unspecified 08/10/06 STENT placed [facility] Alcohol abuse 05/22/2013 Chronic anxiety 10/22/2017 [...] gesture Radius fracture 06/21/2013 See scanned documents [facility] Tobacco abuse 05/22/2013 Urinary calculus, [...] discussion. - Referral to vascular surgery at [facility]; faxed referral and previous study notes. [...] specialists Dr. Fitzgerald and Dr. Gonzalez in [place] if pain persists. - Follow-up in one [...] as needed for worsening/no improvement. Karla Baron APRN.CNP Recording using Whyteboard software for draft documentation of the visit was discussed with the patient/authorized agency sales representative; all questions welcomed and answered. Patient/authorized agency sales representative agreed to proceed documented in this encounterAv[facility]04[facility] Instructions* Patient Instructions* Karla Baron APRN.CNP - [...] A referral to a vascular specialist at [facility] has been faxed along with your [...] management(e.g., Dr. Fitzgerald or Dr. [facility] documented in this encounterAv[facility]04-[facility]-2025 Radiology Diagnostic study note [facility] Imaging Services [address] [place] [address] Chest 1 View (Portable) MR#: [id number] Acct: [id number] Name: RAMONITA EL Rep #: [id number] : 1940 M 84 From: Gerald Flynn MD PCP: RAYO Pillai Status: REG E R Study:Chest 1 View (Portable) Date of Exam: 05/18/24 Exam# [id number] Ordering Dr: Gagan Matthews DO PROCEDURE: CHEST [...] Pneumonia to be ruled out. Reading Location: [id number] CC: RAYO Baron; Dr. Lucien Matthews DO ~ Instructional Technologist: Signed [facility]04-13-2025 Discharge summary [facility] Medical Records Department [address] [place] [address] Emergency Department Summary 05/18/24 MR#: [id number] Acct: [id number] Name: RAMONITA EL Rep #:[id number] : 1940 84 From: [facility] PCP: [...] Method Room Air Room Air Room Air [facility] Narrative Medical decision making [...] reviewed, Vital signs reviewed Constitutional: please see [facility] HENT: MMM Eyes: Pupils equal [...] History obtained from others: none Consults: none [facility] Narrative: The patient was initially hypertensive [...] with normal sinus rhythm, normal axis, prolonged NJ interval, first-degree block, QTc 459, no obvious [...] a.m. physician This note was generated with Pretty Simpleation software. It may contain incorrectwords, spelling, and [...] 75.2 H Lymph % (Auto) 14.4 L Inyo % (Auto) 8.5 Eos % (Auto) 0.8 [...] Karla Baron NP Referrals: Karla Baron NP, VICE CHAIR-C [Primary Care Provider] - Activity Restrictions/Additional Instructions: [...] your Primary Care Provider. Call [facility] ([phone]) or report tothe closest Emergency Room. Call 911 if necessary. 05/18/24 0658 Cosigner Signature (if applicable): CC: RAYO Baron ~ Signed [facility]01-28-2025 Miscellaneous Notes* Telephone Encounter - Sandy Cardoza RN - 03/04/2024 8:21 AM EST Pt returned the call and notified of results and Karla Baron's explanations. He is notified of need to repeat PSA lab in a month and transferred to [facility] in scheduling to set up [...] to get this done. documented in this encounter[facility] Telephone encounter Note * Telephone Encounter - Sandy Cardoza RN - 03/04/2024 8:21 AM EST Pt returned the call and notified of results and Karla Baron's explanations. He is notified of need to repeat PSA lab in a month and transferred to [facility] in scheduling to set up carotid ultrasound. [facility]01-27-[facility]25 Telephone encounter Note* Telephone Encounter - Kay Anguiano RN - 03/03/2024 7:12 PM EST Called and left a voicemail for the Patient to call back and ask for a nurse to receive the providers message. Kay Anguiano RN [facility]01-27-2025 Telephone encounter Note* Telephone Encounter - Karla [...] an order in to get this done. [facility]01-24-2025 Instructions* Patient Instructions* Karla Baron APRN.MARK - 02/29/2024 2:21 PM EST Try the CeraVe, Cetophil or Aveeno. Continue the same medication. We'll let you know when we receive the labwork results. If the shoulder starts bothering you again, there is a referral placed to ortho that you can schedule. documented in this encounterAvita [facility]01-24-2025 NoteHNO ID: [id number] Author: KARLA BARON APRN.MARK Service: ? Author Type: Nurse Practitioner [...] episode of care unspecified 08/10/06 STENT placed Highspire General Alcohol abuse 05/22/2013 Chronic anxiety 10/22/2017 [...] gesture Radius fracture 06/21/2013 See scanned documents [facility] Tobacco abuse 05/22/2013 Urinary calculus, [...] auscultation. No wheezing, rhonch (more content not included)...[facility]01-24-2025 History of Present illness Narrative* Karla Baron APRN.FURNITURE ASSEMBLER - 02/29/2024 2:13 PM EST This is [...] episode of care unspecified 08/10/06 STENT placed Highspire General Alcohol abuse 05/22/2013 Chronic anxiety 10/22/2017 [...] gesture Radius fracture 06/21/2013 See scanned documents [facility] Tobacco abuse 05/22/2013 Urinary calculus, [...] as needed for worsening/no improvement. Karla Baron APRN.FURNITURE ASSEMBLER documented in this encounterAvita [facility]01-22-2025 Telephone encounter Note * Telephone Encounter - Sandy Cardoza RN - 02/27/2024 4:24 PM EST Pt returned the call and notified of prescription refill arriving tomorrow. Pt took a couple BP andreadings were 156/71 and 142/72. [facility]01-22-2025 Miscellaneous Notes* Telephone Encounter - Sandy Cardoza [...] nurse to call back Please call patient [phone] * Telephone Encounter - Ashley Grant RN [...] understanding. Ashley Grant RN documented in this encounterAvita [facility]01-22-2025 Telephone encounter Note * Telephone Encounter - Noemy Dubon - 02/27/2024 3:46 PM EST Please call patient , patient did return the call, we were on hold several minutes , advised patient I will send message for nurse to call back Please call patient [phone] [facility]01-22-2025 Telephone encounter Note* Telephone Encounter - Ashley [...] nurse for this message. Ashley Grant RN [facility]01-22-2025 Telephone encounter Note* Telephone Encounter - Ashley [...] well. Patient voiced understanding. Ashley Grant RN [facility]01-16-2025 Telephone encounter Note* Telephone Encounter - Danae Fuentes APRN.CNP - 02/21/2024 4:47 PM EST The following approved medication requests have been transmitted electronically. Requested Prescriptions Pending Prescriptions Disp Refills losartan (COZAAR) 25 mg tablet 90 tablet 3 Sig: Take 1 tablet by mouth once daily. Danae Fuentes APRN.CNP [facility]01-16-2025 Miscellaneous Notes* Telephone Encounter - Danae Fuentes [...] 21, 2024 8:15 AM documented in this encounterAvita [facility]01-16-2025 Telephone encounter Note * Telephone Encounter - [...] Marina Mathews February 21, 2024 8:15 AM [facility]12-31-2024 Telephone encounter Note* Telephone Encounter - Ashley Grant RN - 02/05/2024 8:10 AM EST Patient was seen recently seen at [facility] on 02/01/24 for right shoulder pain. Pt [...] other recommendations are advised. Ashley Grant RN [facility]12-31-2024 Miscellaneous Notes* Telephone Encounter - Ashley Grant RN - 02/05/2024 8:10 AM EST Patient was seen recently seen at [facility] on 02/01/24 for right shoulder pain. Pt [...] ended call. Will send this update to EC provider for update. Please contact patient if other recommendations are advised. Ashley Grant RN documented in this encounterAvita [facility]12-31-2024 Telephone encounter Note * Telephone Encounter - Ashley Grant RN - 02/05/2024 8:09 AM EST Patient returned call and given provider's message below and patient verbalized understanding. Patient plans to keep appt with Dr. Johnson for 02/18/24. Amy Grant RN [facility]12-31-2024 Miscellaneous Notes* Telephone Encounter - Ashley Grant [...] 9:50 AM EST Patient was seen at [facility] ER on 01/29 cath was placed and advised for removal in 3-5 days. I did check with urology [facility]24 at [facility]. Patient called Dr Johnson and there first opening was 02/17 and that is why he was calling us for a sooner appointment , patient upset PCP would not remove sooner and declined to arrange his ER follow up documented in this encounterAvita [facility]12-30-2024 Telephone encounter Note * Telephone Encounter - Kay Anguiano RN - 02/04/2024 6:12 PM EST Called and left a voicemail for the Patient to call back and ask for a nurse to receive the providers message. Kay Anguiano RN [facility]12-30-2024 Telephone encounter Note* Telephone Encounter - Karla [...] urinate again once the catheter is removed. [facility]12-30-2024 Telephone encounter Note* Telephone Encounter - Ashley Stoddard - 02/04/2024 9:50 AM EST Patient was seen at [facility] ER on 01/29 cath was placed and advised for removal in 3-5 days. I did check with urology [facility] is 02[facility]15/24 at [facility]. Patient called Dr Johnson and there first opening was 02/17 and that is why he was calling us for a sooner appointment , patient upset PCP would not remove sooner and declined to arrange his ER follow up [facility]12-27-2024 NoteHNO ID: [id number] Author: GUS SANCHEZ APRN.FURNITURE ASSEMBLER Service: ? Author Type: Nurse Practitioner Type: [...] any other injuries. No numbness or tingling. Wghjj-wbbx-kvetcqky. No surgeries fractures previously. Past medical history prescription medications allergies reviewed. .Patient presents with: Pain (Shoulder Pain): R shoulder pain x1 day, pushed self out of chair and felt pop PAST MEDICAL HISTORY Diagnosis Date Acute myocardial infarction of anterolateral wall, episode of care unspecified 08/10/06 STENT placed Highspire General Alcohol abuse 05/22/2013 Chronic anxiety 10/22/2017 [...] gesture Radius fracture 06/21/2013 See scanned documents [facility] Tobacco abuse 05/22/2013 Urinary calculus, [...] Musculoskeletal: Right shoulder: No (more content not included)...[facility] 02-01-2024 History of Present illness Narrative* Gus Sanchez, STACY.FURNITURE ASSEMBLER - 02/01/2024 9:02 AM EST Subjective HPI [...] any other injuries. No numbness or tingling. Kzngy-hyfu-oagonctz. No surgeries fractures previously. Past medical history prescription medications allergies reviewed. .Patient presents with: Pain (Shoulder Pain): R shoulder pain x1 day, pushed self out of chair and felt pop PAST MEDICAL HISTORY Diagnosis Date Acute myocardial infarction of anterolateral wall, episode of care unspecified 08/10/06 STENT placed Highspire General Alcohol abuse 05/22/2013 Chronic anxiety 10/22/2017 [...] gesture Radius fracture 06/21/2013 See scanned documents [facility] Tobacco abuse 05/22/2013 Urinary calculus, [...] of care. This note was generated using Lendsquare software. It may contain errors in wording, punctuation, or spelling. Gus Sanchez APRN.FURNITURE ASSEMBLER documented in this encounterAvita Health [facility]12-27-2024 History of Present illness Narrative* Clint Lucero [...] PATIENT PRESENTS WITH AN IMPLANTABLE OR ATTACHED PORTER BAGGAGE: No RADIOLOGY DEPARTMENT: General X-ray: Exam(s) Completed: Upper Extremity X- Ray(s): Shoulder, AP / TRUE AP / AXILLARY right PERIPHERAL IV DATA: Not applicable SIGNED BY: RT Fili(Odilia) February 01, 2024 8:54 AM documented in this encounterAvita Health [facility]12-27-2024 NoteHNO ID: [id number] Author: CLINT LUCERO RT(R) Service: Radiology Author [...] PATIENT PRESENTS WITH AN IMPLANTABLE OR ATTACHED PORTER BAGGAGE: No RADIOLOGY DEPARTMENT: General X-ray: Exam(s) Completed: Upper Extremity X-Ray(s): Shoulder, AP / TRUE AP / AXILLARY right PERIPHERAL IV DATA: Not applicable SIGNED BY: RT Fili(Odilia) February 01, 2024 8:54 [facility]12-16-2024 History of Present illness Narrative* Dave Mccray APRN.FURNITURE ASSEMBLER - 01/21/2024 1:00 PM EST Chief Complaint Patient presents with: ER F/U HPI Ramonita El is a 83 year old male who presents here today for ER Follow Up. Patient here for emergency room follow-up. Patient went to [facility] on 01/15 for complaints of bleeding. Patient [...] needed. This note was partly generated using Lendsquare voice recognition dictation and may contain some misspelled or inaccurate words missed on review. documented in this encounterAvita Health [facility]12-16-2024 NoteHNO ID: [id number] Author: DAVE MCCRAY APRN.CNP Service: ? Author Type: Nurse Practitioner Type: Progress Notes Filed: 01/21/2024 13:33 Note Text: Chief Complaint Patient presents with: ER F/U HPI Ramonita El is a 83 year old male who presents here today for ER Follow Up. Patient here for emergency room follow-up. Patient went to [facility] on 01/15 for complaints of bleeding. Patient [...] HYDROXYZINE HCL 25 MG TABLET Dave Mccray APRN.FURNITURE ASSEMBLER RTO in 1 months, sooner if needed. This note was partly generated using Lendsquare voice recognition dictation and may contain some misspelled or inaccurate words missed on review.[facility]11-27-2024 History of Present illness Narrative* Tomeka Mclaughlin APRN.FURNITURE ASSEMBLER - 01/02/2024 11:00 AM EST FOLLOW UP VISIT - ENDOSCOPY Ramonita El 1940 [id number] REFERRING PHYSICIAN: Star Grande [address] [facility] [address] Ramonita El is a patient I am [...] as needed for worsening/no improvement. Tomeka Mclaughlin APRN.MARK documented in this encounterAvita Health [facility]11-27-2024 NoteHNO ID: [id number] Author: TOMEKA MCLAUGHLIN APRN.CNP Service: ? Author Type: Nurse Practitioner Type: Progress Notes Filed: 01/02/2024 11:02 Note Text: FOLLOW UP VISIT - ENDOSCOPY Ramonita Swain S[place] 1940 [id number] REFERRING PHYSICIAN: Star Grande [address] [facility] [address] Ramonita El is a patient I am [...] as needed for worsening/no improvement. Tomeka Mclaughlin APRN.CNPSalem [facility] Center11-20-2024 Note* Discharge Instr - Nursing - Darcy Bennett RN - 12/26/2023 12:54 PM EST The patient received a copy of Colonoscopy discharge instructions that contain information for how to contact the physician who performed the procedure and when to seek medical care. [facility]11-20-2024 Miscellaneous Notes* Discharge Instr - Nursing - Darcy Bennett RN - 12/26/2023 12:54 PM EST The patient received a copy of Colonoscopy discharge instructions that contain information for how to contact the physician who performed the procedure and when to seek medical care. documented in this encounterAvita Health [facility]11-20-2024 NoteHNO ID: [id number] Author: DARCY BENNETT RN Service: ? Author Type: Registered Nurse Type: Nursing Progress Note Filed: 12/26/2023 12:51 Note Text: Oxygen applied at 3L per NC for pulse ox readings in low 90's while sleeping. [facility]11-20-2024 Nurse Note* Darcy Bennett RN - 12/26/2023 12:30 PM EST Oxygen applied at 3L per NC for pulse ox readings in low 90's while sleeping. [facility]11-20-2024 Nurse Note* Darcy Bennett RN - [...] side. No family present. documented in this encounterAvita Health System [facility]11-20-2024 Nurse Note* Darcy Bennett RN - 12/26/2023 12:27 PM EST Patient received in phase II via cart in left lateral position, eyes closed but open to verbal stimuli, skin warm and dry, respirations regular and unlabored, alert to self and event, abdomen soft and non distended, denies cramping or nausea. Resting on left side. No family present. [facility]11-20-2024 Attending History and physical note* Star Grande [...] : 1940 REFERRING PHYSICIAN: Danae Fuentes [address] [facility] [address] CHIEF COMPLAINT: No chief complaint on file. [...] endoscopy. Last colonoscopy & EGD 06/2015 at [facility] with Dr. Lezama. Sedation: Fentanyl 50 [...] Descending colon, biopsy (D) - Tubular adenoma. [facility]/06/22/15 CURRENT MEDICATIONS Current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 documentation accurately reflects the service provided and the decisions made by me, Dr. Yadiel Awan MD 11/14/24 1029. Part of today?s visit was documented by Roberta OVERTON and Nia Stanton RN, acting as scribe. RAMONITA EL is a 84 year old M here today for right leg pain. He did see [facility] who he saw for a carotid artery. He states that he sees and that he thinks it is from his spine based off the xrays that were taken but the patient believes it is a blood flow issues. He states that he had similar symptoms in the left leg 6-8 years ago and had surgery for a stent placement. He states that he pain is in the posterior calf and ankle. At times he does have pain when moving his ankle. He states that his calf is tender. He denies redness or warmth over the calf. He states that when he is having pain ifhe sits for about 30 minutes then his pain subsides. He states that he did have a test on the leg about 2 months ago that was similar to a blood pressure cuff on the leg but denies have a doppler study. He denies having any pain in the lower back. He states he can only walk 50 feet until the pain is severe in the right calf and he has to stop. The patient is an 84-year-old male presenting with leg pain potentially related to vascular issues and to assess any contribution from the spine. The patient reports experiencing pain in the right calf, which becomes severe after walking approximately 50 feet, necessitating rest to alleviate the discomfort. The patient has a history of vascular intervention on the left leg, including vein cleaning and stent placement approximately seven years ago, whichresolved similar symptoms on that side. The patient denies any history of back pain, hip pain, or buttock pain and reports no surgeries on the back. However, imaging reveals mild spondylolisthesis at the L5-S1 level, which has likely been present for years without causing symptoms. The patient expresses a preference to address the vascular issue before considering further spinal evaluation, as the leg pain is significantly impacting mobility. - Musculoskeletal: Denies back pain, hip pain, or buttock pain. - Cardiovascular: Reports severe pain in the right calf after walking 50 feet. Attestation: Documentation on this patient encounter was supported using ambient scribe technology/ voice AI technology. The patient consented to recording for the purpose of documenting the encounter. Provider reviewed content of the generatednote prior to signature. Ortho Exam General General: Yes no acute distress Neurologic: Yes alert and Yes oriented x3 Psychologic: Yes reasonable and appropriate Exam Narrative - Musculoskeletal: Strength testing of lower extremities showed ability to hold and push against resistance bilaterally. - Neurological: No pain reported upon palpation of the back. - Musculoskeletal: Examination of lower back showed mild instability at L5-S1 with spondylolisthesis noted on x-ray. Lower extremity shows 5 x 5 strength. There is no hyperreflexia. No tendernessin lumbar spine. Coding Level of Care Code Off vis,new,level 4 Diagnoses Spondylolisthesis of lumbar region M43.16 Spinal region: lumbar Time Spent (min) 45 Assessment and Plan Assessment and Plan (1) Spondylolisthesis: Status: Acute Qualifiers: Spinal region: lumbar Qualified Code(s): M43.16 - Spondylolisthesis, lumbar region Orders: Orders L/S Spine Bending Flex/Ext Today M54.9 - Dorsalgia, unspecified Plan Obtained and reviewed lumbar x-rays today in the clinic. Independent interpretation of the x-rays was performed. - Imaging: X-ray of the lower back shows spondylolisthesis at L5-S1 with slight instability noted on flexion and extension views. No MRI available 1. Peripheral artery disease - The patient experiences significant leg pain after walking short distances, likely due to vascular insufficiency. - The plan is to prioritize vascular intervention to improve blood flow and alleviate symptoms. 2. Spondylolisthesis - Although imaging shows mild spondylolisthesis at L5-S1, it is not currently symptomatic. - Further evaluation with MRI is deferred until after vascular issues are addressed. - Follow up with Dr. Lopez for vascular intervention to address leg pain. - Consider MRI of the lower back if symptoms persist after vascular treatment. Explained imaging findings in detail. We discussed ordering a lumbar MRI at thistime the patient does not wish to proceed with this. His concern is the blood flow to the leg not his back. We discussed there are findings in the low back that an MRI could further evaluate. If he changes his mind or his symptoms change he can call our office and we will order this. I recommend that he followback up with vacular surgery as this is his primary concern. Follow up as neededor sooner if pain, swelling, numbness or associated symptoms, or concerns develop. All questions answered. Patient in agreement of plan. Clinical Quality Measures Falls Risk Screening/Assistive Devices Have you fallen in the past year?: No 11/14/24 1559 <Electronically signed by Yadiel Awan MD> Date _ Yadiel Awan MD Cosigner Signature: Date (if applicable) CC: RAYO Baron; KRISTI Garza ~ [employer] Work Phone: [employer] for referral (narrative)* Diagnostic Procedure Only (Routine) - Closed Specialty Diagnoses / Procedures Referred By Contac t Referred To Contact XR IMAGING Diagnoses Claudication (HCC) Procedures XR LUMBAR GENERAL 3V AP/LAT/L5-S1 RADEX SPINE LUMBOSACRAL 2/3 VIEWS Ida Hatfield PA-C [address] [place] [address] [place] [address] Referral ID Status Reason Start Date Expiration Date V isits Requested Visits Authorized [id number] Closed Auto-Generate d Referral 10/10/2022 11/09/2023 1 1 [facility] for referral (narrative)* Diagnostic Procedure Only (Routine) - Closed Specialty Diagnoses / Procedures Referred By Contac t Referred To Contact XR IMAGING Diagnoses Claudication (HCC) Procedures XR LUMBAR GENERAL 3V AP/LAT/L5-S1 RADEX SPINE LUMBOSACRAL 2/3 VIEWS Ida Hatfield PA-C [address] [place] [address] [place] [id number] Referral ID Status Reason Start Date Expiration Date V isits Requested Visits Authorized [id number] Closed Auto-Generate d Referral 10/10/2022 11/09/2023 1 1 [facility] for referral (narrative)* Outpatient Procedure (Routine) - Authorized Specialty Diagnoses / Procedures Referred By Contac t Referred To Contact [facility] Diagnoses Positive occult stool blood test Black stools Procedures COLONOSCOPY DIAGNOSTIC COLONOSCOPY FLX DX W/COLLJ SPEC WHEN PFTomeka Kruse APRN.FURNITURE ASSEMBLER [address] [facility] [place] [address] [facility] [place] [address] [place], [place] [id number] Referral ID Status Reason Start Date Expiration Date Visits Requested Visits Authorized [id number] Authorized Auto-Generat ed Referral 12/05/2024 1 1 * Outpatient Procedure (Routine) - Authorized Specialty Diagnoses / Procedures [facility] Diagnoses Positive occult stool blood test Black stools Gastroesophageal reflux disease, unspecified whether esophagitis present Procedures EGD DIAGNOSTIC ESOPHAGOGASTRODUODENOSC OPY TRANSORAL DIAGNOSTIC Tomeka Mclaughlin APRN.FURNITURE ASSEMBLER [address] [place] [address] [facility] [place] [address] [place] [address] Referral ID Status Reason Start Date Expiration Date Visits Requested Visits Authorized [id number] Authorized Auto-Generat ed Referral 4 12/05/2024 1 1 [facility] for referral (narrative)* Outpatient Procedure (Routine) - Closed Specialty Diagnoses / Procedures Referred By Contac t Referred To Contact [facility] Diagnoses Positive occult stool blood test Black stools Procedures COLONOSCOPY DIAGNOSTIC COLONOSCOPY FLX DX W/COLLJ SPEC WHEN Tomeka Hall APRN.FURNITURE ASSEMBLER [address] [place] [address] [facility] [place] [address] [place] [address] Referral ID Status Reason Start Date Expiration Date V isits Requested Visits Authorized [id number] Closed Auto-Generate d Referral 12/06/2023 12/05/2024 1 1 * Outpatient Procedure (Routine) - Closed Specialty Diagnoses / Procedures [facility] Referred To Contact [facility] Diagnoses Positive occult stool blood test Black stools Gastroesophageal reflux disease, unspecified whether esophagitis present Procedures EGD DIAGNOSTIC ESOPHAGOGASTRODUODENOSC OPY TRANSORAL DIAGNOSTIC Tomeka Mclaughlin APRN.FURNITURE ASSEMBLER [address] [place] [address] [facility] Disease [place] [id number] [place] [address] Referral ID Status Reason Start Date Expiration Date V isits Requested Visits Authorized [id number] Closed Auto-Generate d Referral 12/06/2023 12/05/2024 1 1 [facility] for referral (narrative)* Diagnostic Procedure Only (Urgent) - Closed Specialty Diagnoses / Procedures [facility] Referred To Contact XR IMAGING Diagnoses Acute pain of right shoulder Procedures XR SHOULDER GENERAL 3V OR MORE AP/TRUE AP/OTHER RIGHT RADEX SHOULDER COMPLETE MINIMUM 2 VIEWS Gus Sanchez APRN.FURNITURE ASSEMBLER [address] [place] [address] [place] [address] Referral ID Status Reason Start Date Expiration Date V isits Requested Visits Authorized [id number] Closed Auto-Generate d Referral 02/01/2024 03/02/2025 1 1 [facility] for referral (narrative)* Outpatient Procedure (Routine) - Authorized Specialty Diagnoses / Procedures [facility] Diagnoses Bilateral carotid artery stenosis Procedures US CAROTID ARTERIES [facility] DUPLEX SCAN EXTRACRANIAL ART COMPL BI STUDY Karla Baron, STACY.FURNITURE ASSEMBLER [address] [place] [address] [facility] [place] [address] [place], [place] [id number] Referral ID Status Reason Start Date Expiration Date Visits Requested Visits Authorized [id number] Authorized Auto-Generat ed Referral 03/03/2024 03/03/2025 1 1 [facility] for referral (narrative)No reason for referral information [facility]WAs[facility] Work Phone: Reason for visit Narrative* Diagnostic Procedure Only (Routine) - Closed Specialty Diagnoses / Procedures [facility] Referred To Contact XR IMAGING Diagnoses Claudication (HCC) Procedures XR LUMBAR GENERAL 3V AP/LAT/L5-S1 RADEX SPINE LUMBOSACRAL 2/3 VIEWS Ida Hatfield PA-C [address] [place] [address] [place] [address] Referral ID Status Reason Start Date Expiration Date V isits Requested Visits Authorized [id number] Closed Auto-Generate d Referral 10/10/2022 11/09/2023 1 1 [facility] for visit Narrative* Outpatient Procedure (Routine) - Closed Specialty Diagnoses / Procedures [facility] Ref[facility] To Contact [facility] Diagnoses Positive occult stool blood test Black stools Procedures COLONOSCOPY DIAGNOSTIC COLONOSCOPY FLX DX W/COLLJ SPEC WHEN Tomeka Hall APRN.FURNITURE ASSEMBLER [address] [place] [address] [facility] [place] [address] [place] [address] Referral ID Status Reason Start Date Expiration Date V isits Requested Visits Authorized [id number] Closed Auto-Generate d Referral 12/06/2023 12/05/2024 1 1 [facility]* Diagnostic Procedure Only (Urgent) - Closed Specialty Diagnoses / Procedures Referred By Contac t Referred To Contact XR IMAGING Diagnoses Acute pain of right shoulder Procedures XR SHOULDER GENERAL 3V OR MORE AP/TRUE AP/OTHER RIGHT RADEX SHOULDER COMPLETE MINIMUM 2 VIEWS Gus Sanchez APRN.FURNITURE ASSEMBLER [address] [place] [address] [place] [address] Referral ID Status Reason Start Date Expiration Date V isits Requested Visits Authorized [id number] Closed Auto-Generate d Referral 02/01/2024 03/02/2025 1 1 [facility] Chief Complaint and Reason for Visit Chief [...] 1:43pm Osteoarthritis of left knee August 04 025 1:43pm Chief Complaint Admit Date shortness of [...] 1 :17pm Osteoarthritis of left knee August 04 025 1:43pm Acute pain of left knee [...] July 29, 2024 6:14 am Surgical Clearance/Re-est ([place]) July 30, 2024 1:17pm LEFT KNEE PAIN [...] Discuss Surgery September 03, 2024 3:21 pm Chief Complaint Admit Date Carotid Artery Stenosis June 03, 2024 10:38am [...] Discuss Surgery September 03, 2024 3:21 pm Right Carotid Endarterectomy September 10:00am Right Carotid Endarterectomy September 1:25pm Right Carotid Endarterectomy September 8:15am Reason for Visit Admit Date 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 June 03, 2024 10:38am Carotid stenosis, right June 03, 2024 10:38am Carotid stenosis, right July 17, 2024 1:47pm Encounter for pre-operative cardiovascul ar clearance July 30, 2024 1:17pm 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 July 30, 2024 1:17pm Essential hypertension July 30, 2024 1 :17pm Osteoarthritis of left knee August 04, 2 025 1:43pm Acute pain of left knee August 04, 2024 1:43pm Stenosis of right carotid artery September 032024 3:21pm Carotid stenosis, right September 17 1:25pm Chief Complaint Admit Date Occlusion and stenosis of right carotid artery [...] Discuss Surgery September 03, 2024 3:21 pm Right Carotid Endarterectomy September 10:00am Right Carotid Endarterectomy September 1:25pm Right Carotid Endarterectomy September 8:15am Post-Op F/U - R Carotid Endarterectomy A ugust 2024 9:13am FU October 09, 2024 9:44am Reason for Visit Admit Date Carotid stenosis, right July 17, 2024 1:47pm Encounter for pre-operative cardiovascul ar clearance July 30, 2024 1:17pm 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 July 30, 2024 1:17pm Essential hypertension July 30, 2024 1 :17pm Osteoarthritis of left knee August 04, 2 025 1:43pm Acute pain of left knee August 04, 2024 1:43pm Stenosis of right carotid artery September 032024 3:21pm Carotid stenosis, right September 17 1:25pm Carotid stenosis, right September 23 9:13am Chief Complaint Admit Date LEFT KNEE PAIN August 04, 2024 1:43 pm CAD PREOP August 15, 2024 6:58 am Amb Documentation August 15, 2024 2:28 pm ABN STRESS August 25, 2024 9:15 am Discuss Surgery September 03, 2024 3:21 pm Right Carotid Endarterectomy September 10:00am Right Carotid Endarterectomy September 1:25pm Right Carotid Endarterectomy September 8:15am Post-Op F/U - R Carotid Endarterectomy A ugust 2024 9:13am FU October 09, 2024 9:44am LUMBAR SPINE November 14, 2024 1 0:04am RM 2 November 14, 2024 1 0:44am Reason for Visit Admit Date Osteoarthritis of left knee August 04, 2 025 1:43pm Acute pain of left knee August 04, 2024 1:43pm Stenosis of right carotid artery September 032024 3:21pm Carotid stenosis, right September 17 1:25pm Carotid stenosis, right September 23 9:13am Carotid stenosis, right October 09, 2 025 9:44am Spondylolisthesis November 14, 2024 1 0:04am Family History No Family History Records Found [...] No May 20, 2021 2:21pm Power of Truck Guard No May 20 2:21pm Advance Directive Response Recorded Date/ Time Advance Directives No May 03 11:27pm Living Will Yes December 31 6:49pm Power of Truck Guard Yes December 31, 2021 6:49pm Name of Medical Power of Truck Guard JEAN PAUL AUSTIN December 31, 2021 6:49pm Advance Directive Response Recorded Date/ Time Advance Directives No May 04 12:27am Living Will Yes December 31 7:49pm Power of Truck Guard Yes December 31, 2021 7:49pm Advance Directive Response Recorded Date/ Time Advance Directives No May 03 11:27pm Living Will Yes December 31 6:49pm Power of Truck Guard Yes December 31, 2021 6:49pm Advance Directive Response Recorded Date/ Time Advance Directives No May 04 12:27am Living Will No May 03, 2023 1:15pm Power of Truck Guard No May 02 1:15pm Advance Directive Response Recorded Date/ Time Living Will No January 29 12:37pm Do you have a Healthcare Pow er of Truck Guard? No January 30, 2024 12:37pm Living Will Yes February 10 9:51am Do you have a Healthcare Pow er of Truck Guard? Yes February 11, 2024 9:51am Name of Medical Power of Truck Guard DAUGHTER SANDY Mcgowan February 11, 2024 9:51am Living Will Yes May 18, 2024 5:29am Do you have a Healthcare Pow er of Truck Guard? Yes May 18, 2024 5:29am Name of Medical Power of Truck Guard daughter May 18, 2024 5:29am Advance Directives No May 04 12:27am Advance Directive Response Recorded Date/ Time Living Will Yes May 18, 2024 5:29am Do you have a Healthcare Power of Truck Guard? Yes May 18, 2024 5:29am Name of Medical Power of Truck Guard daughter May 18, 2024 5:29am Advance Directives No May 04, 2 014 12:27am Advance Directive Response Recorded Date/ Time Do you have a Healthcare Power of Truck Guard? Yes July 29, 2024 6:16am Living Will Yes May 18, 2024 5:29am Do you have a Healthcare Power of Truck Guard? Yes May 18, 2024 5:29am Name of Medical Power of Truck Guard daughter May 18, 2024 5:29am Advance Directives No May 04 014 12:27am Advance Directive Response Recorded Date/ Time Do you have a Healthcare Pow er of Truck Guard? Yes July 29, 2024 6:16am Living Will Yes May 18, 2024 5:29am Do you have a Healthcare Pow er of Truck Guard? Yes May 18, 2024 5:29am Name of Medical Power of Truck Guard daughter May 18, 2024 5:29am Advance Directives on File Yes August 25, 2024 9:40am Living Will Yes August 25, 2024 9:40am Do you have a Healthcare Pow er of Truck Guard? Yes August 25, 2024 9:40am Name of Medical Power of Truck Guard Annalisa Sienna-d aughter August 25, 2024 9:40am Advance Directives Yes August 25 9:40am Advance Directive Response Recorded Date/ Time Do you have a Healthcare Pow er of Truck Guard? Yes July 29, 2024 6:16am Do you have a Healthcare Pow er of Truck Guard? Yes September 17, 2024 4:02pm Name of Medical Power of Truck Guard daughter September 17, 2024 4:02pm Advance Directives on File Yes August 25, 2024 9:40am Living Will Yes August 25, 2024 9:40am Do you have a Healthcare Pow er of Truck Guard? Yes August 25, 2024 9:40am Name of Medical Power of Truck Guard Annalisa Sienna-d aughter August 25, 2024 9:40am Advance Directives Yes August 25 9:40am Advance Directive Response Recorded Date/ Time Advance Directives Yes October 9:36am Do you have a Healthcare Pow er of Truck Guard? Yes Shani 24th, 2025 6:16am Do you have a Healthcare Pow er of Truck Guard? Yes September 17, 2024 4:02pm Name of Medical Power of Truck Guard daughter September 17, 2024 4:02pm Advance Directives on File Yes August 25, 2024 9:40am Living Will Yes August 25, 2024 9:40am Do you have a Healthcare Pow er of Truck Guard? Yes August 25, 2024 9:40am Name of Medical Power of Truck Guard Annalisa Marel-d chiquitakaveh August 25, 2024 9:40am Advance Directive Response Recorded Date/ Time Advance Directives Yes October 1:30pm Do you have a Healthcare Pow er of Truck Guard? Yes September 17, 2024 4:02pm Name of Medical Power of Truck Guard daughter September 17, 2024 4:02pm Advance Directives on File Yes August 25, 2024 9:40am Living Will Yes August 25, 2024 9:40am Do you have a Healthcare Pow er of Truck Guard? Yes August 25, 2024 9:40am Name of Medical Power of Truck Guard Annalisa El-juan francisco porrasguille August 25, 2024 9:40am Reason for Referral Specialty Diagnoses / Procedures Referred By Contac t Referred To Contact Vascular Surgery Diagnoses PVD (peripheral vascular disease) ([facility]) Procedures CONSULT TO VASCULAR SURGERY OFFICE/OUTPATIENT [facility] 60-74 MINUTES Ida Hatfield PA-C [address] [place] [address] Referral ID Status Reason Start Date Expiration Date Visits Requested Visits Authorized [id number] Authorized PCP Requested Referral 07/27/2022 07/27/2023 1 1 Specialty Diagnoses / Procedures Referred By Contac t Referred To Contact Orthopedics Diagnoses Dupuytren's contracture of left hand Procedures CONSULT TO ORTHOPAEDICS OFFICE/OUTPATIENT [facility] 60 MINUTES Ida Hatfield PA-C [address] [place] [address] Referral ID Status Reason Start Date Expiration Date Visits Requested Visits Authorized [id number] Authorized PCP Requested Referral 05/24/2023 05/23/2024 1 1 Specialty Diagnoses / Procedures Referred By Contac t Referred To Contact Diagnoses Primary insomnia Procedures CONSULT TO SLEEP MEDICINE - ADULT OFFICE/OUTPATIENT [facility] MDM 60 MINUTES Dave Mccray, LICENSED OPTICIAN.FURNITURE ASSEMBLER [address] [place] [address] Referral ID Status Reason Start Date Expiration Date Visits Requested Visits Authorized [id number] Authorized PCP Requested Referral 4 01/20/2025 1 1 Specialty Diagnoses / Procedures Referred By Contac t Referred To Contact Orthopedics Diagnoses Acute pain of right shoulder Procedures CONSULT TO ORTHOPAEDICS OFFICE/OUTPATIENT [facility] MDM 60 MINUTES Gus Sanchez, LICENSED OPTICIAN.FURNITURE ASSEMBLER [address] [address] Referral ID Status Reason Start Date Expiration Date Visits Requested Visits Authorized [id number] Authorized PCP Requested Referral 4 01/31/2025 1 1 Specialty Diagnoses / Procedures Referred By Contac t Referred To Contact XR IMAGING Diagnoses Acute pain of right shoulder Procedures XR SHOULDER GENERAL 3V OR MORE AP/TRUE AP/OTHER RIGHT RADEX SHOULDER COMPLETE MINIMUM 2 VIEWS Gus Sanchez, LICENSED OPTICIAN.FURNITURE ASSEMBLER [address] [place] [address] [place] [address] Referral ID Status Reason Start Date Expiration Date V isits Requested Visits Authorized [id number] Closed Auto-Generate d Referral 02/01/2024 03/02/2025 1 [...] or prosecute any alcohol or drug abuse patient.[facility] the event this information is protected by the Federal Confidentiality of Alcohol and Drug Abuse Patient Records regulations: The Federal rules restrict any use of the information to criminally investigate or prosecute any alcohol or drug abuse patient.[facility] Hospital[facility] the event this information is protected by the Federal Confidentiality of Alcohol and Drug Abuse Patient Records regulations: The Federal rules restrict any use of the information to criminally investigate or prosecute any alcohol or drug abuse patient.[facility] Hospital[facility] the event this information is protected by the Federal Confidentiality of Alcohol and Drug Abuse Patient Records regulations: The Federal rules restrict any use of the information to criminally investigate or prosecute any alcohol or drug abuse patient.[facility] Hospital[facility] the event this information is protected by the Federal Confidentiality of Alcohol and Drug Abuse Patient Records regulations: The Federal rules restrict any use of the information to criminally investigate or prosecute any alcohol or drug abuse patient.[facility] Hospital[facility] the event this information is protected by the Federal Confidentiality of Alcohol and Drug Abuse Patient Records regulations: The Federal rules restrict any use of the information to criminally investigate or prosecute any alcohol or drug abuse patient.[facility] Hospital[facility] the event this information is protected by the Federal Confidentiality of Alcohol and Drug Abuse Patient Records regulations: The Federal rules restrict any use of the information to criminally investigate or prosecute any alcohol or drug abuse patient.[facility] Hospital[facility] the event this information is protected by the Federal Confidentiality of Alcohol and Drug Abuse Patient Records regulations: The Federal rules restrict any use of the information to criminally investigate or prosecute any alcohol or drug abuse patient.[facility] Hospital[facility] the event this information is protected by the Federal Confidentiality of Alcohol and Drug Abuse Patient Records regulations: The Federal rules restrict any use of the information to criminally investigate or prosecute any alcohol or drug abuse patient.[facility] Hospital[facility] the event this information is protected by the Federal Confidentiality of Alcohol and Drug Abuse Patient Records regulations: The Federal rules restrict any use of the information to criminally investigate or prosecute any alcohol or drug abuse patient.[facility] Hospital[facility] the event this information is protected by the Federal Confidentiality of Alcohol and Drug Abuse Patient Records regulations: The Federal rules restrict any use of the information to criminally investigate or prosecute any alcohol or drug abuse patient.[facility] Hospital[facility] the event this information is protected by the Federal Confidentiality of Alcohol and Drug Abuse Patient Records regulations: The Federal rules restrict any use of the information to criminally investigate or prosecute any alcohol or drug abuse patient.[facility] Hospital[facility] the event this information is protected by the Federal Confidentiality of Alcohol and Drug Abuse Patient Records regulations: The Federal rules restrict any use of the information to criminally investigate or prosecute any alcohol or drug abuse patient.[facility] HospitalIn the event this information is protected by the Federal Confidentiality of Alcohol and Drug Abuse Patient Records regulations: The Federal rules restrict any use of the information to criminally investigate or prosecute any alcohol or drug abuse patient.[facility] HospitalIn the event this information is protected by the Federal Confidentiality of Alcohol and Drug Abuse Patient Records regulations: The Federal rules restrict any use of the information to criminally investigate or prosecute any alcohol or drug abuse patient.[facility] Hospital[facility] the event this information is protected by the Federal Confidentiality of Alcohol and Drug Abuse Patient Records regulations: The Federal rules restrict any use of the information to criminally investigate or prosecute any alcohol or drug abuse patient.[facility] Hospital[facility] the event this information is protected by the Federal Confidentiality of Alcohol and Drug Abuse Patient Records regulations: The Federal rules restrict any use of the information to criminally investigate or prosecute any alcohol or drug abuse patient.[facility] HospitalIn the event this information is protected by the Federal Confidentiality of Alcohol and Drug Abuse Patient Records regulations: The Federal rules restrict any use of the information to criminally investigate or prosecute any alcohol or drug abuse patient.[facility] HospitalIn the event this information is protected by the Federal Confidentiality of Alcohol and Drug Abuse Patient Records regulations: The Federal rules restrict any use of the information to criminally investigate or prosecute any alcohol or drug abuse patient.[facility] HospitalIn the event this information is protected by the Federal Confidentiality of Alcohol and Drug Abuse Patient Records regulations: The Federal rules restrict any use of the information to criminally investigate or prosecute any alcohol or drug abuse patient.[facility] HospitalIn the event this information is protected by the Federal Confidentiality of Alcohol and Drug Abuse Patient Records regulations: The Federal rules restrict any use of the information to criminally investigate or prosecute any alcohol or drug abuse patient.[facility] Hospital[facility] the event this information is protected by the Federal Confidentiality of Alcohol and Drug Abuse Patient Records regulations: The Federal rules restrict any use of the information to criminally investigate or prosecute any alcohol or drug abuse patient.[facility] HospitalIn the event this information is protected by the Federal Confidentiality of Alcohol and Drug Abuse Patient Records regulations: The Federal rules restrict any use of the information to criminally investigate or prosecute any alcohol or drug abuse patient.[facility] HospitalIn the event this information is protected by the Federal Confidentiality of Alcohol and Drug Abuse Patient Records regulations: The Federal rules restrict any use of the information to criminally investigate or prosecute any alcohol or drug abuse patient.[facility] HospitalIn the event this information is protected by the Federal Confidentiality of Alcohol and Drug Abuse Patient Records regulations: The Federal rules restrict any use of the information to criminally investigate or prosecute any alcohol or drug abuse patient.[facility] HospitalIn the event this information is protected by the Federal Confidentiality of Alcohol and Drug Abuse Patient Records regulations: The Federal rules restrict any use of the information to criminally investigate or prosecute any alcohol or drug abuse patient.[facility] HospitalIn the event this information is protected by the Federal Confidentiality of Alcohol and Drug Abuse Patient Records regulations: The Federal rules restrict any use of the information to criminally investigate or prosecute any alcohol or drug abuse patient.[facility] HospitalIn the event this information is protected by the Federal Confidentiality of Alcohol and Drug Abuse Patient Records regulations: The Federal rules restrict any use of the information to criminally investigate or prosecute any alcohol or drug abuse patient.[facility] HospitalIn the event this information is protected by the Federal Confidentiality of Alcohol and Drug Abuse Patient Records regulations: The Federal rules restrict any use of the information to criminally investigate or prosecute any alcohol or drug abuse patient.[facility] HospitalIn the event this information is protected by the Federal Confidentiality of Alcohol and Drug Abuse Patient Records regulations: The Federal rules restrict any use of the information to criminally investigate or prosecute any alcohol or drug abuse patient.[facility] HospitalIn the event this information is protected by the Federal Confidentiality of Alcohol and Drug Abuse Patient Records regulations: The Federal rules restrict any use of the information to criminally investigate or prosecute any alcohol or drug abuse patient.[facility] HospitalIn the event this information is protected by the Federal Confidentiality of Alcohol and Drug Abuse Patient Records regulations: The Federal rules restrict any use of the information to criminally investigate or prosecute any alcohol or drug abuse patient.[facility] HospitalIn the event this information is protected by the Federal Confidentiality of Alcohol and Drug Abuse Patient Records regulations: The Federal rules restrict any use of the information to criminally investigate or prosecute any alcohol or drug abuse patient.[facility] HospitalIn the event this information is protected by the Federal Confidentiality of Alcohol and Drug Abuse Patient Records regulations: The Federal rules restrict any use of the information to criminally investigate or prosecute any alcohol or drug abuse patient.[facility] HospitalIn the event this information is protected by the Federal Confidentiality of Alcohol and Drug Abuse Patient Records regulations: The Federal rules restrict any use of the information to criminally investigate or prosecute any alcohol or drug abuse patient.[facility] HospitalIn the event this information is protected by the Federal Confidentiality of Alcohol and Drug Abuse Patient Records regulations: The Federal rules restrict any use of the information to criminally investigate or prosecute any alcohol or drug abuse patient.[facility] HospitalIn the event this information is protected by the Federal Confidentiality of Alcohol and Drug Abuse Patient Records regulations: The Federal rules restrict any use of the information to criminally investigate or prosecute any alcohol or drug abuse patient.[facility] HospitalIn the event this information is protected by the Federal Confidentiality of Alcohol and Drug Abuse Patient Records regulations: The Federal rules restrict any use of the information to criminally investigate or prosecute any alcohol or drug abuse patient.[facility] HospitalIn the event this information is protected by the Federal Confidentiality of Alcohol and Drug Abuse Patient Records regulations: The Federal rules restrict any use of the information to criminally investigate or prosecute any alcohol or drug abuse patient.[facility] the event this information is protected by the Federal Confidentiality of Alcohol and Drug Abuse Patient Records regulations: The Federal rules restrict any use of the information to criminally investigate or prosecute any alcohol or drug abuse patient.[facility] HospitalIn the event this information is protected by the Federal Confidentiality of Alcohol and Drug Abuse Patient Records regulations: The Federal rules restrict any use of the information to criminally investigate or prosecute any alcohol or drug abuse patient.[facility] HospitalIn the event this information is protected by the Federal Confidentiality of Alcohol and Drug Abuse Patient Records regulations: The Federal rules restrict any use of the information to criminally investigate or prosecute any alcohol or drug abuse patient.[facility] HospitalIn the event this information is protected by the Federal Confidentiality of Alcohol and Drug Abuse Patient Records regulations: The Federal rules restrict any use of the information to criminally investigate or prosecute any alcohol or drug abuse patient.[facility] HospitalIn the event this information is protected by the Federal Confidentiality of Alcohol and Drug Abuse Patient Records regulations: The Federal rules restrict any use of the information to criminally investigate or prosecute any alcohol or drug abuse patient.[facility] HospitalIn the event this information is protected by the Federal Confidentiality of Alcohol and Drug Abuse Patient Records regulations: The Federal rules restrict any use of the information to criminally investigate or prosecute any alcohol or drug abuse patient.[facility] HospitalIn the event this information is protected by the Federal Confidentiality of Alcohol and Drug Abuse Patient Records regulations: The Federal rules restrict any use of the information to criminally investigate or prosecute any alcohol or drug abuse patient.[facility] HospitalIn the event this information is protected by the Federal Confidentiality of Alcohol and Drug Abuse Patient Records regulations: The Federal rules restrict any use of the information to criminally investigate or prosecute any alcohol or drug abuse patient.[facility] Reason for Visit (unrecogniz ed section and [...] ed by Dayne Sauer seen by Dr. Ervin on 02/01/12 S/P needle aponeurotomy left ring finger Specialty Diagnoses / Procedures Referred By Katy francisco Referred To Contact Orthopedics Diagnoses Dupuytren's contracture of left hand Procedures CONSULT TO ORTHOPAEDICS OFFICE/OUTPATIENT NEW HIGH [facility] 60 MINUTES Ida Hatfield PA-C [address] [place] [address] Referral ID Status Reason Start Date Expiration Date V isits Requested Visits Authorized [id number] Closed PCP Requested Referral 05/24/2023 05/23/2024 1 [...] test Procedures CONSULT TO GENERAL SURGERY OFFICE/OUTPATIENT NEW HIGH [facility] 60 MINUTES Danae Fuentes APRN.CNP [address] [place] [address] Referral ID Status Reason Start Date Expiration Date V isits Requested Visits Authorized [id number] Closed PCP Requested Referral 12/03/2023 12/02/2024 1 [...] month follow up Reason Comments Consult to [facility] Vascular Surg ren Reason Onset Date Comments Refill Request 08/29/2024 Reason Onset Date Comments Refill Request 10/03/2024 Care Teams (unrecognized sec tion and content) Section Crews Activities Clerk Relationship Specialty Start Date End Date Ida Hatfield PA-C [address] [place] [address] PCP - General Family Medicine 09/23/20 Section Crews Activities Clerk Relationship Specialty Start Date End Date Ida Hatfield PA-C [address] [place] [address] PCP - General Family Medicine 09/23/20 Section Crews Activities Clerk Relationship Specialty Start Date End Date Ida Hatfield PA-C [address] [place] [address] PCP - General Family Medicine 09/23/20 Section Crews Activities Clerk Relationship Specialty Start Date End Date Ida Hatfield PA-C [address] [place] [address] PCP - General Family Medicine 09/23/20 Section Crews Activities Clerk Relationship Specialty Start Date End Date Ida Hatfield PA-C [address] [place] [address] PCP - General Family Medicine 09/23/20 Section Crews Activities Clerk Relationship Specialty Start Date End Date Ida Hatfield PA-C [address] [place] [address] PCP - General Family Medicine 09/23/20 Section Crews Activities Clerk Relationship Specialty Start Date End Date Ida Hatfield PA-C [address] [place] [address] PCP - General Family Medicine 09/23/20 Section Crews Activities Clerk Relationship Specialty Start Date End Date Ida Hatfield PA-C [address] [place] [address] PCP - General Family Medicine 09/23/20 Section Crews Activities Clerk Relationship Specialty Start Date End Date Ida Hatfield PA-C [address] [place] [address] PCP - General Family Medicine 09/23/20 Team Status: Active Member Role Status Dates Dr. Ismael Ruiz III, MD Family Provider Active KRISTI Harding Primary Care Provider Active Team Status: Inactive Member Role Status Dates KRISTI Harding Primary Care Provider Active Dr. Willis Mera MD Attending Provider, Referring Provider Active Section Crews Activities Clerk Relationship Specialty Start Date End Date Ida Hatfield PA-C [address] [place] [address] PCP - General Family Medicine 09/23/20 Section Crews Activities Clerk Relationship Specialty Start Date End Date Ida Hatfield PA-C [address] [place] [address] PCP - General Family Medicine 09/23/20 Section Crews Activities Clerk Relationship Specialty Start Date End Date Ida Hatfield PA-C [address] [place] [address] PCP - General Family Medicine 09/23/20 Section Crews Activities Clerk Relationship Specialty Start Date End Date Ida Hatfield PA-C [address] [place] [address] PCP - General Family Medicine 09/23/20 Section Crews Activities Clerk Relationship Specialty Start Date End Date Ida Hatfield PA-C [address] [place] [address] PCP - General Family Medicine 09/23/20 Section Crews Activities Clerk Relationship Specialty Start Date End Date Ida Hatfield PA-C [address] [place] [address] PCP - General Family Medicine 09/23/20 Section Crews Activities Clerk Relationship Specialty Start Date End Date Ida Hatfield PA-C [address] [place] [address] PCP - General Family Medicine 09/23/20 Team Status: Inactive Member Role Status KRISTI Petersno Primary Care Provider Active Dr. Lindy Blanco , DO Emergency Provider Active Section Crews Activities Clerk Relationship Specialty Start Date End Date Ida Hatfield PA-C [address] [place] [address] PCP - General Family Medicine 09/23/20 Section Crews Activities Clerk Relationship Specialty Start Date End Date Ida Hatfield PA-C [address] [place] [address] PCP - General Family Medicine 09/23/20 Section Crews Activities Clerk Relationship Specialty Start Date End Date Ida Hatfield PA-C [address] [place] [address] PCP - General Family Medicine 09/23/20 Section Crews Activities Clerk Relationship Specialty Start Date End Date Ida Hatfield PA-C [address] [place] [address] PCP - General Family Medicine 09/23/20 Section Crews Activities Clerk Relationship Specialty Start Date End Date Ida Hatfield PA-C [address] [place] [address] PCP - General Family Medicine 09/23/20 Section Crews Activities Clerk Relationship Specialty Start Date End Date Ida Hatfield PA-C [address] [place] [address] PCP - General Family Medicine 09/23/20 Section Crews Activities Clerk Relationship Specialty Start Date End Date Rina Hatfield PA-C PCP - General Family Medicine 09/23/20 Section Crews Activities Clerk Relationship Specialty Start Date End Date Karla Baron, LICENSED OPTICIAN.FURNITURE ASSEMBLER [address] [place] [address] PCP - General Family Medicine 01/02/24 Section Crews Activities Clerk Relationship Specialty Start Date End Date Karla Baron, LICENSED OPTICIAN.FURNITURE ASSEMBLER [address] [place] [address] PCP - General Family Medicine 01/02/24 Danae Fuentes, LICENSED OPTICIAN.FURNITURE ASSEMBLER [address] [place] [address] Hearing Screener Family Medicine 01/13/24 Aamir Meade MD [address] [place] [address] Hearing Screener Family Medicine 01/13/24 Section Crews Activities Clerk Relationship Specialty Start Date End Date Karla Baron, LICENSED OPTICIAN.FURNITURE ASSEMBLER [address] [facility] [place] [address] PCP - General Family Medicine 01/02/24 Danae Fuentes, LICENSED OPTICIAN.FURNITURE ASSEMBLER [address] [facility] [place] [address] Hearing Screener Family Medicine 01/13/24 Aamir Meade MD [address] [place] [address] [facility] 01/13/24 Section Crews Activities Clerk Relationship Specialty Start Date End Date Karla Baron, LICENSED OPTICIAN.FURNITURE ASSEMBLER [address] [facility] [place] [address] PCP - General Family Medicine 01/02/24 Danae Fuentes, LICENSED OPTICIAN.FURNITURE ASSEMBLER [address] [facility] [place] [address] Hearing Screener Family Medicine 01/13/24 Aamir Meade MD [address] [facility] [place] [address] [facility] 01/13/24 Section Crews Activities Clerk Relationship Specialty Start Date End Date Karla Baron, LICENSED OPTICIAN.FURNITURE ASSEMBLER [address] [facility] [place] [address] PCP - General Family Medicine 01/02/24 Danae Fuentes, LICENSED OPTICIAN.FURNITURE ASSEMBLER [address] [facility] [place] [address] Hearing Screener Family Medicine 01/13/24 Aamir Meade MD [address] [facility] [address] Hearing Screener Family Medicine 01/13/24 Section Crews Activities Clerk Relationship Specialty Start Date End Date Karla Baron APRN.FURNITURE ASSEMBLER [address] [facility] [place] [address] PCP - General Family Medicine 01/02/24 Danae Fuentes APRN.FURNITURE ASSEMBLER [address] [place] [address] Hearing Screener Family Medicine 01/13/24 Aamir Meade MD [address] [place] [address] Hearing Screener Family Medicine 01/13/24 Section Crews Activities Clerk Relationship Specialty Start Date End Date Karla Baron APRN.FURNITURE ASSEMBLER [address] [facility] [place] [address] PCP - General Family Medicine 01/02/24 Danae Fuentes APRN.FURNITURE ASSEMBLER [address] [place] [address] Hearing Screener Family Medicine 01/13/24 Aamir Meade MD [address] [place] [address] Hearing Screener Family Medicine 01/13/24 Section Crews Activities Clerk Relationship Specialty Start Date End Date Karla Baron APRN.FURNITURE ASSEMBLER [address] [facility] [place] [address] PCP - General Family Medicine 01/02/24 Danae Fuentes APRN.FURNITURE ASSEMBLER [address] [place] [address] Hearing Screener Family Medicine 01/13/24 Aamir Meade MD [address] [place] [place] [address] Hearing Screener Family Medicine 01/13/24 Section Crews Activities Clerk Relationship Specialty Start Date End Date Karla Baron APRN.FURNITURE ASSEMBLER [address] [facility] [place] [address] PCP - General Family Medicine 01/02/24 Danae Fuentes APRN.FURNITURE ASSEMBLER [address] [place] [address] Hearing Screener Family Medicine 01/13/24 Aamir Meade MD [address] [place] [address] Hearing Screener Family Medicine 01/13/24 Section Crews Activities Clerk Relationship Specialty Start Date End Date Karla Baron APRN.FURNITURE ASSEMBLER [address] [place] [address] PCP - General Family Medicine 01/02/24 Danae Fuentes LICENSED OPTICIAN.FURNITURE ASSEMBLER [address] [place] [address] Hearing Screener Family Medicine 01/13/24 Aamir Meade MD [address] [place] [address] Hearing Screener Family Medicine 01/13/24 Section Crews Activities Clerk Relationship Specialty Start Date End Date Karal Baron APRN.FURNITURE ASSEMBLER [address] [place] [address] PCP - General Family Medicine 01/02/24 Danae Fuentes APRN.CNP [address] [place], [place] [address] [facility] 01/13/24 04/28/24 Aamir Meade MD [address] [place], [place] [address] [facility] 01/13/24 04/28/24 Team Status: Active Member Role Status Dates Karla Baron VICE CHAIR, VICE CHAIR-C Primary Care Provider Active Team Status: Inactive Member Role Status Dates Karla Baron VICE CHAIR, VICE CHAIR-C Primary Care Provider Active Start: January 30, 2024 End: January 30, 2024 Dr. Lindy Blanco DO Attending Provider Active S tart: January 30, 2024 End: January 30, 2024 Dr. Lindy Blanco DO Emergency Provider Active S tart: January 30, 2024 End: January 30, 2024 Team Status: Inactive Member Role Status Dates Karla Baron NP, VICE CHAIR-C Primary Care Provider Active Start: February 11, 2024 End: February 11, 2024 Dr. Mello Briceño DO Attending Provider Active Start: February 11, 2024 End: February 11, 2024 Dr. Mello Briceño DO Emergency Provider Active Start: February 11, 2024 End: February 11, 2024 Team Status: Inactive Member Role Status Dates Karla Baron NP, VICE CHAIR-C Primary Care Provider Active Start: February 18, 2024 End: February 18, 2024 Dr. Justice Johnson MD Attending Provider Active Start: February 18, 2024 End: February 18, 2024 Dr. Justice Johnson MD Referring Provider Active Start: February 18, 2024 End: February 18, 2024 Team Status: Inactive Member Role Status Dates Karla Baron VICE CHAIR, VICE CHAIR-C Primary Care Provider Active Start: May 18, 2024 End: May 18, 2024 Dr. Lucien Matthews , Emergency Provider Active Start: May 18, 2024 End: May 18, 2024 Section Crews Activities Clerk Relationship Specialty Start Date End Date Karla Baron APRN.FURNITURE ASSEMBLER [address] [place] [address] PCP - General Family Medicine 01/02/24 Section Crews Activities Clerk Relationship Specialty Start Date End Date Karla Baron APRN.FURNITURE ASSEMBLER [address] [place] [address] PCP - General Family Medicine 01/02/24 Team Status: Inactive Member Role Status Dates Karla Baron VICE CHAIR, VICE CHAIR-C Primary Care Provider Active Start: May 18, 2024 End: May 18, 2024 Dr. Lucien Matthews DO Attending Provider Active Start: May 18, 2024 End: May 18, 2024 Dr. Lucien Matthews DO Emergency Provider Active Start: May 18, 2024 End: May 18, 2024 Team Status: Inactive Member Role Status Dates Karla Baron VICE CHAIR, VICE CHAIR-C Primary Care Provider Active Start: June 03, 2024 End: June 03, 2024 Karla Baron NP, VICE CHAIR-C Referring Provider Active Start: June 03, 2024 End: June 03, 2024 KRISTI Garza Attending Provider Active Star t: June 03, 2024 End: June 03, 2024 Team Status: Inactive Member Role Status Dates Karla Baron VICE CHAIR, VICE CHAIR-C Primary Care Provider Active Start: June 05, 2024 End: June 05, 2024 KRISTI Garza Attending Provider Active Star t: June 05, 2024 End: June 05, 2024 KRISTI Garza Referring Provider Active Star t: June 05, 2024 End: June 05, 2024 Team Status: Active Member Role Status Dates Karla Baron VICE CHAIR, VICE CHAIR-C Primary Care Provider Active Start: June 05, 2024 Dr. Mello Demarco MD Attending Provider Active S tart: June 05, 2024 KRISTI Garza Referring Provider Active Star t: June 05, 2024 Team Status: Inactive Member Role Status Dates Karla Baron VICE CHAIR, VICE CHAIR-C Primary Care Provider Active Start: July 03, 2024 End: July 03, 2024 KRISTI Garza Attending Provider Active Star t: July 03, 2024 End: July 03, 2024 KRISTI Garza Referring Provider Active Star t: July 03, 2024 End: July 03, 2024 Team Status: Inactive Member Role Status Dates Karla Haagen VICE CHAIR, VICE CHAIR-C Primary Care Provider Active Start: July 17, 2024 End: July 17, 2024 Karla Haagen VICE CHAIR, VICE CHAIR-C Referring Provider Active Start: July 17, 2024 End: July 17, 2024 Dr. Mello Demarco MD Attending Provider Active S tart: July 17, 2024 End: July 17, 2024 Team Status: Active Member Role Status Dates Karla Hachayo VICE CHAIR, VICE CHAIR-C Primary Care Provider Active Start: July 24, 2024 Dr. Chandni Fitzgerald MD Attending Provider Active Start: July 24, 2024 Dr. Chandni Fitzgerald MD Referring Provider Active Start: July 24, 2024 Team Status: Inactive Member Role Status Dates Karla Hachayo VICE CHAIR, VICE CHAIR-C Primary Care Provider Active Start: July 29, 2024 End: July 29, 2024 Dr. Nilesh Mccullough MD Emergency Provider Active Start: July 29, 2024 End: July 29, 2024 Team Status: Inactive Member Role Status Dates Karla Haagen VICE CHAIR, VICE CHAIR-C Primary Care Provider Active Start: July 30, 2024 End: July 30, 2024 Karla Haagen VICE CHAIR, VICE CHAIR-C Referring Provider Active Start: July 30, 2024 End: July 30, 2024 Dr. Kp Puentes MD Attending Provider Active S tart: July 30, 2024 End: July 30, 2024 Team Status: Active Member Role/Relationship Status Dates Karla Haagen VICE CHAIR, VICE CHAIR-C Primary Care Provider Active Team Status: Inactive Member Role/Relationship Status Dates Karla Haagen VICE CHAIR, VICE CHAIR-C Primary Care Provider Active Start: May 18, 2024 End: May 18, 2024 Dr. Lucien Matthews DO Attending Provider Active Start: May 18, 2024 End: May 18, 2024 Dr. Lucien Matthews DO Emergency Provider Active Start: May 18, 2024 End: May 18, 2024 Team Status: Inactive Member Role/Relationship Status Dates Karla Haagen VICE CHAIR, VICE CHAIR-C Primary Care Provider Active Start: June 03, 2024 End: June 03, 2024 Karla Baron NP, VICE CHAIR-C Referring Provider Active Start: June 03, 2024 End: June 03, 2024 KRISTI Garza Attending Provider Active Star t: June 03, 2024 End: June 03, 2024 Team Status: Inactive Member Role/Relationship Status Dates Karla Baron VICE CHAIR, VICE CHAIR-C Primary Care Provider Active Start: June 05, 2024 End: June 05, 2024 KRISTI Garza Attending Provider Active Star t: June 05, 2024 End: June 05, 2024 KRISTI Garza Referring Provider Active Star t: June 05, 2024 End: June 05, 2024 Team Status: Active Member Role/Relationship Status Dates Karla Baron VICE CHAIR, VICE CHAIR-C Primary Care Provider Active Start: June 05, 2024 Dr. Mello Demarco MD Attending Provider Active S tart: June 05, 2024 KRISTI Garza Referring Provider Active Star t: June 05, 2024 Team Status: Inactive Member Role/Relationship Status Dates Karla Baron VICE CHAIR, VICE CHAIR-C Primary Care Provider Active Start: July 03, 2024 End: July 03, 2024 KRISTI Garza Attending Provider Active Star t: July 03, 2024 End: July 03, 2024 KRISTI Garza Referring Provider Active Star t: July 03, 2024 End: July 03, 2024 Team Status: Inactive Member Role/Relationship Status Dates Karla Baron VICE CHAIR, VICE CHAIR-C Primary Care Provider Active Start: July 17, 2024 End: July 17, 2024 Karla Baron VICE CHAIR, VICE CHAIR-C Referring Provider Active Start: July 17, 2024 End: July 17, 2024 Dr. Mello Demarco MD Attending Provider Active S tart: July 17, 2024 End: July 17, 2024 Team Status: Inactive Member Role/Relationship Status Dates Karla Baron VICE CHAIR, VICE CHAIR-C Primary Care Provider Active Start: July 24, 2024 End: July 24, 2024 Dr. Chandni Fitzgerald MD Attending Provider Active Start: July 24, 2024 End: July 24, 2024 Dr. Chandni Fitzgerald MD Referring Provider Active Start: July 24, 2024 End: July 24, 2024 Team Status: Inactive Member Role/Relationship Status Dates Karla Baron VICE CHAIR, VICE CHAIR-C Primary Care Provider Active Start: July 29, 2024 End: July 29, 2024 Dr. Nilesh Mccullough MD Emergency Provider Active Start: July 29, 2024 End: July 29, 2024 Team Status: Inactive Member Role/Relationship Status Dates Karla Baron VICE CHAIR, VICE CHAIR-C Primary Care Provider Active Start: July 30, 2024 End: July 30, 2024 Karla Baron VICE CHAIR, VICE CHAIR-C Referring Provider Active Start: July 30, 2024 End: July 30, 2024 Dr. Kp Puentes MD Attending Provider Active S tart: July 30, 2024 End: July 30, 2024 Team Status: Inactive Member Role/Relationship Status Dates Karla Baron VICE CHAIR, VICE CHAIR-C Primary Care Provider Active Start: July 29, 2024 End: July 29, 2024 Dr. Nilesh Mccullough MD Attending Provider Active Start: July 29, 2024 End: July 29, 2024 Dr. 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 Kp Puentes MD Attending Provider Active S tart: August 15, 2024 Team Status: Active Member Role/Relationship Status Dates Karla Baron VICE CHAIR, VICE CHAIR-C Primary Care Provider Active Start: August 15, 2024 Manuela Bojorquez VICE CHAIR, VICE CHAIR-C Attending Provider Active Start: August 15, 2024 Team Status: Inactive Member Role/Relationship Status Dates Karla Baron VICE CHAIR, VICE CHAIR-C Primary Care Provider Active Start: August 25, 2024 End: August 25, 2024 Dr. Kp Puentes MD Attending Provider Active S tart: August 25, 2024 End: August 25, 2024 Dr. 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 Mello Demarco MD Attending Provider Active S tart: September 03, 2024 End: September 03, 2024 Team Status: Inactive Member Role/Relationship Status Dates Karla Baron VICE CHAIR, VICE CHAIR-C Primary Care Provider Active Start: June 03, 2024 End: June 03, 2024 Karla Baron VICE CHAIR, VICE CHAIR-C Referring Provider Active Start: June 03, 2024 End: June 03, 2024 KRISTI Garza Attending Provider Active Star t: June 03, 2024 End: June 03, 2024 Team Status: Inactive Member Role/Relationship Status Dates Karla Baron VICE CHAIR, VICE CHAIR-C Primary Care Provider Active Start: June 05, 2024 End: June 05, 2024 KRISTI Garza Attending Provider Active Star t: June 05, 2024 End: June 05, 2024 KRISTI Garza Referring Provider Active Star t: June 05, 2024 End: June 05, 2024 Team Status: Active Member Role/Relationship Status Dates Karla Baron VICE CHAIR, VICE CHAIR-C Primary Care Provider Active Start: June 05, 2024 Dr. Mello Demarco MD Attending Provider Active S tart: June 05, 2024 KRISTI Garza Referring Provider Active Star t: June 05, 2024 Team Status: Inactive Member Role/Relationship Status Dates Karla Baron VICE CHAIR, VICE CHAIR-C Primary Care Provider Active Start: July 03, 2024 End: July 03, 2024 KRISTI Garza Attending Provider Active Star t: July 03, 2024 End: July 03, 2024 KRISTI Garza Referring Provider Active Star t: July 03, 2024 End: July 03, 2024 Team Status: Inactive Member Role/Relationship Status Dates Karla Baron VICE CHAIR, VICE CHAIR-C Primary Care Provider Active Start: July 17, 2024 End: July 17, 2024 Karla Baron VICE CHAIR, VICE CHAIR-C Referring Provider Active Start: July 17, 2024 End: July 17, 2024 Dr. Mello Demarco MD Attending Provider Active S tart: July 17, 2024 End: July 17, 2024 Team Status: Inactive Member Role/Relationship Status Dates Karla Baron VICE CHAIR, VICE CHAIR-C Primary Care Provider Active Start: July 24, 2024 End: July 24, 2024 Dr. Chandni Fitzgerald MD Attending Provider Active Start: July 24, 2024 End: July 24, 2024 Dr. Chandni Fitzgerald MD Referring Provider Active Start: July 24, 2024 End: July 24, 2024 Team Status: Inactive Member Role/Relationship Status Dates Karla Baron VICE CHAIR, VICE CHAIR-C Primary Care Provider Active Start: July 29, 2024 End: July 29, 2024 Dr. Nilesh Mccullough MD Attending Provider Active Start: July 29, 2024 End: July 29, 2024 Dr. Nilesh Mccullough MD Emergency Provider Active Start: July 29, 2024 End: July 29, 2024 Team Status: Inactive Member Role/Relationship Status Dates Karla Tod VICE CHAIR, VICE CHAIR-C Primary Care Provider Active Start: July 30, 2024 End: July 30, 2024 Karla Baron VICE CHAIR, VICE CHAIR-C Referring Provider Active Start: July 30, 2024 End: July 30, 2024 Dr. Kp Puentes MD Attending Provider Active S tart: July 30, 2024 End: July 30, 2024 Team Status: Inactive Member Role/Relationship Status Dates Karla Haagen VICE CHAIR, VICE CHAIR-C Primary Care Provider Active Start: August 04, 2024 End: August 04, 2024 Karla Baron VICE CHAIR, VICE CHAIR-C Referring Provider Active Start: August 04, 2024 End: August 04, 2024 Akira Negrete MD Attending Provider Active St art: August 04, 2024 End: August 04, 2024 Team Status: Inactive Member Role/Relationship Status Dates Karla Hachayo VICE CHAIR, VICE CHAIR-C Primary Care Provider Active Start: August 15, [...] Active Member Role/Relationship Status Dates Karla Baron VICE CHAIR, VICE CHAIR-C Primary Care Provider Active Start: August 15, 2024 Dr. Kp Puentes MD Attending Provider Active S tart: August 15, 2024 Team Status: Active Member Role/Relationship Status Dates Karla Baron VICE CHAIR, VICE CHAIR-C Primary Care Provider Active Start: August 15, 2024 Manuela Bojorquez VICE CHAIR, VICE CHAIR-C Attending Provider Active Start: August 15, 2024 Team Status: Inactive Member Role/Relationship Status Dates Karla Hachayo VICE CHAIR, VICE CHAIR-C Primary Care Provider Active Start: August 25, 2024 End: August 25, 2024 Dr. Kp Puentes MD Attending Provider Active S tart: August 25, 2024 End: August 25, 2024 Dr. Kp Puentes MD Referring Provider Active S tart: August 25, 2024 End: August 25, 2024 Team Status: Inactive Member Role/Relationship Status Dates Karla Baron VICE CHAIR, VICE CHAIR-C Primary Care Provider Active Start: September 03, 2024 End: September 03, 2024 Karla Baron VICE CHAIR, VICE CHAIR-C Referring Provider Active Start: September 03, 2024 End: September 03, 2024 Dr. Mello Demarco MD Attending Provider Active S tart: September 03, 2024 End: September 03, 2024 Team Status: Active Member Role/Relationship Status Dates Karla Baron VICE CHAIR, VICE CHAIR-C Primary Care Provider Active Start: September 17, 2024 Dr. Mello Demarco MD Admit Provider Active Start : September 17, 2024 Dr. Mello Demarco MD Attending Provider Active S tart: September 17, 2024 Dr. Mello Demarco MD Referring Provider Active S tart: September 17, 2024 Dr. Mello Demarco MD Other Provider Active Start : September 17, 2024 Team Status: Inactive Member Role/Relationship Status Dates Karla Baron VICE CHAIR, VICE CHAIR-C Primary Care Provider Active Start: September 17, 2024 End: September 18, 2024 Dr. Mello Demarco MD Admit Provider Active Start : September 17, 2024 End: September 18, 2024 Dr. Mello Demarco MD Attending Provider Active S tart: September 17, 2024 End: September 18, 2024 Dr. Mello Demarco MD Referring Provider Active S tart: September 17, 2024 End: September 18, 2024 Team Status: Active Member Role/Relationship Status Dates Karla Baron VICE CHAIR, VICE CHAIR-C Primary Care Provider Active Start: September 18, 2024 Dr. Mello Demarco MD Admit Provider Active Start : September 18, 2024 Dr. Mello Demarco MD Referring Provider Active S tart: September 18, 2024 Dr. 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 [address] [place] [address] PCP - General Family Medicine 01/02/24 Team Status: Inactive Member Role/Relationship Status Dates Karla Baron VICE CHAIR, VICE CHAIR-C Primary Care Provider Active Start: July 03, 2024 End: July 03, 2024 KRISTI Garza Attending Provider Active Star t: July 03, 2024 End: July 03, 2024 KRISTI Garza Referring Provider Active Star t: July 03, 2024 End: July 03, 2024 Team Status: Inactive Member Role/Relationship Status Dates Karla Hachayo VICE CHAIR, VICE CHAIR-C Primary Care Provider Active Start: July 17, 2024 End: July 17, 2024 Karla Baron VICE CHAIR, VICE CHAIR-C Referring Provider Active Start: July 17, 2024 End: July 17, 2024 Dr. Mello Demarco MD Attending Provider Active S tart: July 17, 2024 End: July 17, 2024 Team Status: Inactive Member Role/Relationship Status Dates Karla Baron VICE CHAIR, VICE CHAIR-C Primary Care Provider Active Start: July 24, 2024 End: July 24, 2024 Dr. Chandni Fitzgerald MD Attending Provider Active Start: July 24, 2024 End: July 24, 2024 Dr. Chandni Fitzgerald MD Referring Provider Active Start: July 24, 2024 End: July 24, 2024 Team Status: Inactive Member Role/Relationship Status Dates Karla Baron VICE CHAIR, VICE CHAIR-C Primary Care Provider Active Start: July 29, 2024 End: July 29, 2024 Dr. Nilesh Mccullough MD Attending Provider Active Start: July 29, 2024 End: July 29, 2024 Dr. Nilesh Mccullough MD Emergency Provider Active Start: July 29, 2024 End: July 29, 2024 Team Status: Inactive Member Role/Relationship Status Dates Karla Baron VICE CHAIR, VICE CHAIR-C Primary Care Provider Active Start: July 30, 2024 End: July 30, 2024 Karla Baron VICE CHAIR, VICE CHAIR-C Referring Provider Active Start: July 30, 2024 End: July 30, 2024 Dr. Kp Puentes MD Attending Provider Active S tart: July 30, 2024 End: July 30, 2024 Team Status: Inactive Member Role/Relationship Status Dates Karla Haagen VICE CHAIR, VICE CHAIR-C Primary Care Provider Active Start: August 04, 2024 End: August 04, 2024 Karla Baron VICE CHAIR, VICE CHAIR-C Referring Provider Active Start: August 04, 2024 End: August 04, 2024 Akira Negrete MD Attending Provider Active St art: August 04, 2024 End: August 04, 2024 Team Status: Inactive Member Role/Relationship Status Dates Karla Baron VICE CHAIR, VICE CHAIR-C Primary Care Provider Active Start: August 15, [...] Active Member Role/Relationship Status Dates Karla Baron VICE CHAIR, VICE CHAIR-C Primary Care Provider Active Start: August 15, 2024 Dr. Kp Puentes MD Attending Provider Active S tart: August 15, 2024 Team Status: Active Member Role/Relationship Status Dates Karla Baron VICE CHAIR, VICE CHAIR-C Primary Care Provider Active Start: August 15, 2024 Manuela Bojorquez VICE CHAIR, VICE CHAIR-C Attending Provider Active Start: August 15, 2024 Team Status: Inactive Member Role/Relationship Status Dates Karla Hachayo VICE CHAIR, VICE CHAIR-C Primary Care Provider Active Start: August 25, 2024 End: August 25, 2024 Dr. Kp Puentes MD Attending Provider Active S tart: August 25, 2024 End: August 25, 2024 Dr. Kp Puentes MD Referring Provider Active S tart: August 25, 2024 End: August 25, 2024 Team Status: Inactive Member Role/Relationship Status Dates Karla Hachayo VICE CHAIR, VICE CHAIR-C Primary Care Provider Active Start: September 03, 2024 End: September 03, 2024 Karla Baron VICE CHAIR, VICE CHAIR-C Referring Provider Active Start: September 03, 2024 End: September 03, 2024 Dr. Mello Demarco MD Attending Provider Active S tart: September 03, 2024 End: September 03, 2024 Team Status: Active Member Role/Relationship Status Dates Karla Baron VICE CHAIR, VICE CHAIR-C Primary Care Provider Active Start: September 17, 2024 Dr. Mello Demarco MD Admit Provider Active Start : September 17, 2024 Dr. Mello Demarco MD Attending Provider Active S tart: September 17, 2024 Dr. Mello Demarco MD Referring Provider Active S tart: September 17, 2024 Dr. Mello Demarco MD Other Provider Active Start : September 17, 2024 Team Status: Inactive Member Role/Relationship Status Dates Karla Baron VICE CHAIR, VICE CHAIR-C Primary Care Provider Active Start: September 17, 2024 End: September 18, 2024 Dr. Mello Demarco MD Admit Provider Active Start : September 17, 2024 End: September 18, 2024 Dr. Mello Demarco MD Attending Provider Active S tart: September 17, 2024 End: September 18, 2024 Dr. Mello Demarco MD Referring Provider Active S tart: September 17, 2024 End: September 18, 2024 Team Status: Active Member Role/Relationship Status Dates Karla Baron VICE CHAIR, VICE CHAIR-C Primary Care Provider Active Start: September 18, 2024 Dr. Mello Demarco MD Admit Provider Active Start : September 18, 2024 Dr. Mello Demarco MD Referring Provider Active S tart: September 18, 2024 Dr. Mello Demarco MD Other Provider Active Start : September 18, 2024 KRISTI Garza Attending Provider Active Star t: September 18, 2024 Team Status: Inactive Member Role/Relationship Status Dates Karla Baron VICE CHAIR, VICE CHAIR-C Primary Care Provider Active Start: September 23, 2024 End: September 23, 2024 Karla Baron VICE CHAIR, VICE CHAIR-C Referring Provider Active Start: September 23, 2024 End: September 23, 2024 KRISTI Garza Attending Provider Active Star t: September 23, 2024 End: September 23, 2024 Team Status: Inactive Member Role/Relationship Status Dates Karla Haagen VICE CHAIR, VICE CHAIR-C Primary Care Provider Active Start: October 09, 2024 End: October 09, 2024 Karla Baron VICE CHAIR, VICE CHAIR-C Referring Provider Active Start: October 09, 2024 End: October 09, 2024 KRISTI Garza Attending Provider Active Star t: October 09, 2024 End: October 09, 2024 Team Status: Active Member Role/Relationship Status Dates Karla Baron VICE CHAIR, VICE CHAIR-C Primary care physician Active Team Status: Inactive Member Role/Relationship Status Dates Karla Baron VICE CHAIR, VICE CHAIR-C Primary care physician Active Start: August 04, 2024 End: August 04, 2024 Karla Baron VICE CHAIR, VICE CHAIR-C Referring Provider Active Start: August 04, 2024 End: August 04, 2024 Akira Negrete MD Attending physician Active S tart: August 04, 2024 End: August 04, 2024 Team Status: Inactive Member Role/Relationship Status Dates Karla Baron VICE CHAIR, VICE CHAIR-C Primary care physician Active Start: August 15, 2024 End: August 15, 2024 Dr. Kp Puentes MD Attending physician Active Start: August 15, 2024 End: August 15, 2024 Dr. Kp Puentes MD Referring Provider Active S tart: August 15, 2024 End: August 15, 2024 Dr. Mello eDmarco MD Nurse Practitioner Active S tart: August 15, 2024 End: August 15, 2024 Team Status: Active Member Role/Relationship Status Dates Karla Baron VICE CHAIR, VICE CHAIR-C Primary care physician Active Start: August 15, 2024 Dr. Kp Puentes MD Attending physician Active Start: August 15, 2024 Team Status: Active Member Role/Relationship Status Dates Karla Baron VICE CHAIR, VICE CHAIR-C Primary care physician Active Start: August 15, 2024 Manuela Bojorquez VICE CHAIR, VICE CHAIR-C Attending physician Active Start: August 15, 2024 Team Status: Inactive Member Role/Relationship Status Dates Karla Baron VICE CHAIR, VICE CHAIR-C Primary care physician Active Start: August 25, 2024 End: August 25, 2024 Dr. Kp Puentes MD Attending physician Active Start: August 25, 2024 End: August 25, 2024 Dr. Kp Puentes MD Referring Provider Active S tart: August 25, 2024 End: August 25, 2024 Team Status: Inactive Member Role/Relationship Status Dates Karla Baron VICE CHAIR, VICE CHAIR-C Primary care physician Active Start: September 03, 2024 End: September 03, 2024 Karla Baron VICE CHAIR, VICE CHAIR-C Referring Provider Active Start: September 03, 2024 End: September 03, 2024 Dr. Mello Demarco MD Attending physician Active Start: September 03, 2024 End: September 03, 2024 Team Status: Active Member Role/Relationship Status Dates Karla Baron VICE CHAIR, VICE CHAIR-C Primary care physician Active Start: September 17, 2024 Dr. Mello Demarco MD Admitting physician Active Start: September 17, 2024 Dr. Mello Demarco MD Attending physician Active Start: September 17, 2024 Dr. Mello Demarco MD Referring Provider Active S tart: September 17, 2024 Dr. Mello Demarco MD Nurse Practitioner Active S tart: September 17, 2024 Team Status: Inactive Member Role/Relationship Status Dates Karla Baron VICE CHAIR, VICE CHAIR-C Primary care physician Active Start: September 17, 2024 End: September 18, 2024 Dr. Mello Demarco MD Admitting physician Active Start: September 17, 2024 End: September 18, 2024 Dr. Mello Demarco MD Attending physician Active Start: September 17, 2024 End: September 18, 2024 Dr. Mello Demarco MD Referring Provider Active S tart: September 17, 2024 End: September 18, 2024 Team Status: Active Member Role/Relationship Status Dates Karla Baron VICE CHAIR, VICE CHAIR-C Primary care physician Active Start: September 18, 2024 Dr. Mello Demarco MD Admitting physician Active Start: September 18, 2024 Dr. Mello Demarco MD Referring Provider Active S tart: September 18, 2024 Dr. Mello Demarco MD Nurse Practitioner Active S tart: September 18, 2024 KRISIT Garza Attending physician Active Sta rt: September 18, 2024 Team Status: Inactive Member Role/Relationship Status Dates Karla Baron VICE CHAIR, VICE CHAIR-C Primary care physician Active Start: September 23, 2024 End: September 23, 2024 Karla Baron VICE CHAIR, VICE CHAIR-C Referring Provider Active Start: September 23, 2024 End: September 23, 2024 KRISTI Garza Attending physician Active Sta rt: September 23, 2024 End: September 23, 2024 Team Status: Inactive Member Role/Relationship Status Dates Karla Baron VICE CHAIR, VICE CHAIR-C Primary care physician Active Start: October 09, 2024 End: October 09, 2024 Karla Baron NP, VICE CHAIR-C Referring Provider Active Start: October 09, 2024 End: October 09, 2024 KRISTI Garza Attending physician Active Sta rt: October 09, 2024 End: October 09, 2024 Team Status: Inactive Member Role/Relationship Status Dates Karla Baron NP, VICE CHAIR-C Primary care physician Active Start: November 14, 2024 End: November 14, 2024 Karla Baron NP, NP-C Referring Provider Active Start: November 14, 2024 End: November 14, 2024 Dr. Yadiel Awan MD Attending physician Active Start: November 14, 2024 End: November 14, 2024 Team Status: Inactive Member Role/Relationship Status Dates Karla Baron NP, ECTOR-C Primary care physician Active Start: November 14, 2024 End: November 14, 2024 Dr. Kp Puentes MD Attending physician Active Start: November 14, 2024 End: November 14, 2024 (unrecognized sect ion and content) No Status Records FoundNo Status Records Found INFORMATION SOURCE (unrecogn ized section and content) DATE CREATED AUTHOR 11/29/2024 [facility] DATE CREATED AUTHOR AUTHOR'S ORGANIZ ATION 12/15/2024 [facility] FOR RECORDS PERTAINING TO PATIENTS WHO [...] BE BASED ON THE PRIMARY CLINICAL RECORDS. [employer] provides no warranty or guarantee of the accuracy or completeness of information in this document.
== END | disposition home or self-care (01) ==
PROVIDERS: PCP Registered Nurse; Referring Provider Surgery Trauma Surgery; Visit Provider Surgery Trauma Surgery
DX: Z01.818 Encounter for other preprocedural examination (principal); I70.211 Atherosclerosis of native arteries of extremities with intermittent claudication, right leg
CPT/HCPCS: 75635; 93970; Q9967

== ENCOUNTER → 2025-01-13 | Outpatient (CLI) | payer MEDICARE, OTHER, SELFPAY ==
--- OUTSIDE RECORDS SUMMARY | 2024-11-24 08:16 | XMS RPT_ITS ---
Author Name Auto Generated Organization OHIP Care Team Providers Care Light Bulb Replacer Name Role Phone KARLA BARON Attending Physician Unavailable KARLA BARON Primary Care Physician Unavailab le KARLA BARON Attending Physician Unavailable KARLA BRAON Primary Care Physician Unavailab le SELF Unavailable Unavailable KARLA BARON Primary Care Physician Unavailab le SELF Unavailable Unavailable KARLA BARON Attending Physician Unavailable KARLA BARON Primary Care Physician Unavailab KARLA Duong Unavailable Unavailable PROBLEMS DATE TYPE CONDITION / CODE ATTENDING STATUS [facility] 10/10/2022 Active Chronic pancreat itis, unspecified pancreatitis type (HCC) / K86.1(ICD-10) TOD [facility] 10/05/2020 Active Peripheral arter ial disease / I73.9(ICD-10) ROB [facility] 09/23/2020 Active Chronic intersti tial lung disease (HCC) / J84.9(ICD-10) TOD [facility] 09/06/2017 Active Primary hyperten polo / I10(ICD-10) TOD [facility] 08/17/2009 Active Hyperlipidemia L DL goal <70 / E78.5(ICD-10) TOD [facility] 11/24/2024 Active Encounter for immunization / Z23(ICD-10) TOD [facility] 11/24/2024 Active Nicotine depende nce, cigarettes, uncomplicated / F17.210(ICD-10) TOD [facility] 11/24/2024 Active Medicare annual wellness visit, subsequent / Z00.00(ICD-10) TOD [facility] 06/24/2024 Active Stenosis of righ t carotid artery / I65.21(ICD-10) KARLA BARON Active [facility] 06/24/2024 Active Peripheral vascu lar disease / I73.9(ICD-10) KARLA BARON Active [facility] 06/24/2024 Active Chronic pain syn drome / G89.4(ICD-10) KARLA BARON Active [facility] 05/27/2024 Active Thyroid nodule / E04.1(ICD-10) TOD KARLA Active [facility] 05/27/2024 Active Insomnia, unspec ified type / G47.00(ICD-10) KARLA BARON Active [facility] 03/03/2024 Active Bilateral caroti d artery stenosis / I65.23(ICD-10) NA Active [facility] [place] RESULTS PROGRESS Observed: 11/24/2024 1:45 PM Status: COMPLETED Source: [facility] HNO ID: [id number] Author: KARLA BARON APRN.FLAT [employer] JEWEL Service: ? Author Type: Nurse Practitioner Type: Progress Notes Filed: 11/24/2024 22:56 Note Text: Ramonita Johnston is a 84 year old male here for a Medicare wellness visit. Medicare Health Risk Assessment General Health Poor Exercise: Minutes/Day 0 min Exercise: Days/Week 0 days Alcohol: Daily Use Monthly or less Alcohol: Drinks/Day 5 or 6 Alcohol: 6 or more drinks Monthly Feel off balance Yes (now and then will bump into the wall.) Concerns: Teeth/Dentures No Concerns: Sexual function No Troubled by feelings Denies Frequency: Eating healthy diet Some days. ADLs requiring help None of the above Safety precautions in home/vehicle Yes Smoke, vape, chews tobacco Yes, but I'm not ready to quit Difficulty hearing Yes Difficulty seeing Yes Current Providers Specialists: I have reviewed specialist-related care of the patient in the medical record. Outside specialists seen: Dr. Demarco (vascular) Medical/Family history review Reviewed and updated problem list, medical/surgical/family/social history, medications, and allergies. Opioid use review Prescribed: No opioid use on file in the last 90 days Patient-reported: TRAMADOL 50 MG TABLET Does patient have risk factors for opioid abuse? Yes Pain overview Current pain concerns and treatment plan reviewed. Patient under the care of a specialist. Depression screening PHQ-2 Score: 1 Anxiety screening Cognitive screening Mini Cog Score: 3 Cognitive screening reviewed and No further action needed (score 3-5). Functional Observation Was the patient's Timed Up AND Go test unsteady or >= 12 seconds? No Advance Directives Surrogate decision maker and/or advance care plan documented Daughter Measurements BP 138/76 Pulse 68 Resp 16 Wt 73.5 kg (162 lb) SpO2 96% BMI 25.37 kg/m? Vision Screening: Follows with optometry/ophthalmology Assessment/Plan Medicare annual wellness visit, subsequent (Z.) - Counseled on healthy diet and regular exercise - Fall avoidance information provided - Personalized prevention plan provided Additional Concerns The following concerns were also discussed with the patient: PAD: Intermittent claudication. Will get progressive leg pain that improves after rest. Has appt w/ vascular later this week. Hyperlipidemia. Reportedly unable to tolerate statins. Does not follow a special diet. CAD Reportedly unable to tolerate statins. No CP/Shortness of Breath/palpitations. Carotid stenosis: S/p endarterectomy. Tobacco abuse. Restarted smoking. Declines cessation. HTN: Stable. Compliant with medications. PHYSICAL EXAM BP 138/76 Pulse 68 Resp 16 Wt 73.5 kg (162 lb) SpO2 96% BMI 25.37 kg/m? GENERAL: well appearing, alert, in no acute distress CARDIOVASCULAR: regular rate and rhythm. No murmur, rubs or gallops. PULMONARY: clear to auscultation, no wheezing, rhonchi, or crackles Neuro: alert and oriented. Gait steady. EXTREMITY: no lower extremity edema. No skin discoloration. ASSESSMENT/PLAN: 1. Primary hypertension - ICD9: 401.9, ICD10: I10 (primary diagnosis) - Controlled - Continue current medications - Recommend home blood pressure monitoring, to bring results to next visit - Encouraged sodium restriction, DASH or Mediterranean diet - Recommend regular aerobic exercise - METOPROLOL TARTRATE 100 MG TABLET 2. Chronic pancreatitis, unspecified pancreatitis type (HCC) - ICD9: 577.1, ICD10: K86.1 Stable. 3. Chronic interstitial lung disease (HCC) - ICD9: 515, ICD10: J84.9 Stable. 4. Encounter for immunization - ICD9: V03.89, ICD10: Z23 - INFLUENZA VACCINE, PRSV FREE, AGE 65+ YR, HIGH DOSE, TRIVALENT (FLUZONE HIGH-DOSE) - [employer] COVID-19 VACCINE AGE 12+ YR (COMIRNATY) 5. Nicotine dependence, cigarettes, uncomplicated - ICD9: 305.1, ICD10: F17.210 - Cessation encouraged. - Physiologic and physical aspects of tobacco addiction as well as strategies for quitting were discussed. - Counseling was given focusing on the harmful effects of this addiction especially given the patient's medical condition(s) which will be worsened because of the chemicals in tobacco. 6. Hyperlipidemia LDL goal <70 - ICD9: 272.4, ICD10: E78.5 - Barriers to control: diet adherence, lack of exercise, and statin intolerance. - Counseled on healthy diet and regular exercise 7. Peripheral arterial disease - ICD9: 443.9, ICD10: I73.9 Continue per vascular. Discussed treatment plan and patient voices understanding. Patient's questions answered appropriately. Medications and potential side effects were discussed and patient voices understanding. Recheck in 6 months. Return to the office as scheduled or as needed for worsening/no improvement. NACHO Pillai Observed: 11/24/2024 1:40 PM Status: COMPLETED Source: [facility] RAMONITA JOHNSTON ([id number]) 1940 M [facility] Date Time Provider Department 11/24/24 1:40 PM KARLA BARON During your visit today, we recorded the following information about you: Pulse Respiration Blood pressure Weight 68/minute 16/minute 138/76 73.5 kg Karla Baron APRN.CNP 11/24/2024 10:56 PM Signed Ramonita Johnston is a 84 year old male here for a Medicare wellness visit. Medicare Health Risk Assessment General Health Poor Exercise: Minutes/Day 0 min Exercise: Days/Week 0 days Alcohol: Daily Use Monthly or less Alcohol: Drinks/Day 5 or 6 Alcohol: 6 or more drinks Monthly Feel off balance Yes (now and then will bump into the wall.) Concerns: Teeth/Dentures No Concerns: Sexual function No Troubled by feelings Denies Frequency: Eating healthy diet Some days. ADLs requiring help None of the above Safety precautions in home/vehicle Yes Smoke, vape, chews tobacco Yes, but I'm not ready to quit Difficulty hearing Yes Difficulty seeing Yes Current Providers Specialists: I have reviewed specialist-related care of the patient in the medical record. Outside specialists seen: Dr. Demarco (vascular) Medical/Family history review Reviewed and updated problem list, medical/surgical/family/social history, medications, and allergies. Opioid use review Prescribed: No opioid use on file in the last 90 days Patient-reported: TRAMADOL 50 MG TABLET Does patient have risk factors for opioid abuse? Yes Pain overview Current pain concerns and treatment plan reviewed. Patient under the care of a specialist. Depression screening PHQ-2 Score: 1 Anxiety screening Cognitive screening Mini Cog Score: 3 Cognitive screening reviewed and No further action needed (score 3-5). Functional Observation Was the patient's Timed Up AND Go test unsteady or >= 12 seconds? No Advance Directives Surrogate decision maker and/or advance care plan documented Daughter Measurements BP 138/76 Pulse 68 Resp 16 Wt 73.5 kg (162 lb) SpO2 96% BMI 25.37 kg/m? Vision Screening: Follows with optometry/ophthalmology Assessment/Plan Medicare annual wellness visit, subsequent (Z00.00) - Counseled on healthy diet and regular exercise - Fall avoidance information provided - Personalized prevention plan provided Additional Concerns The following concerns were also discussed with the patient: PAD: Intermittent claudication. Will get progressive leg pain that improves after rest. Has appt w/ vascular later this week. Hyperlipidemia. Reportedly unable to tolerate statins. Does not follow a special diet. CAD Reportedly unable to tolerate statins. No CP/Shortness of Breath/palpitations. Carotid stenosis: S/p endarterectomy. Tobacco abuse. Restarted smoking. Declines cessation. HTN: Stable. Compliant with medications. PHYSICAL EXAM BP 138/76 Pulse 68 Resp 16 Wt 73.5 kg (162 lb) SpO2 96% BMI 25.37 kg/m? GENERAL: well appearing, alert, in no acute distress CARDIOVASCULAR: regular rate and rhythm. No murmur, rubs or gallops. PULMONARY: clear to auscultation, no wheezing, rhonchi, or crackles Neuro: alert and oriented. Gait steady. EXTREMITY: no lower extremity edema. No skin discoloration. ASSESSMENT/PLAN: 1. Primary hypertension - ICD9: 401.9, ICD10: I10 (primary diagnosis) - Controlled - Continue current medications - Recommend home blood pressure monitoring, to bring results to next visit - Encouraged sodium restriction, DASH or Mediterranean diet - Recommend regular aerobic exercise - METOPROLOL TARTRATE 100 MG TABLET 2. Chronic pancreatitis, unspecified pancreatitis type (HCC) - ICD9: 577.1, ICD10: K86.1 Stable. 3. Chronic interstitial lung disease (HCC) - ICD9: 515, ICD10: J84.9 Stable. 4. Encounter for immunization - ICD9: V03.89, ICD10: Z23 - INFLUENZA VACCINE, PRSV FREE, AGE 65+ YR, HIGH DOSE, TRIVALENT (FLUZONE HIGH-DOSE) - [employer] COVID-19 VACCINE AGE 12+ YR (COMIRNATY) 5. Nicotine dependence, cigarettes, uncomplicated - ICD9: 305.1, ICD10: F17.210 - Cessation encouraged. - Physiologic and physical aspects of tobacco addiction as well as strategies for quitting were discussed. - Counseling was given focusing on the harmful effects of this addiction especially given the patient's medical condition(s) which will be worsened because of the chemicals in tobacco. 6. Hyperlipidemia LDL goal <70 - ICD9: 272.4, ICD10: E78.5 - Barriers to control: diet adherence, lack of exercise, and statin intolerance. - Counseled on healthy diet and regular exercise 7. Peripheral arterial disease - ICD9: 443.9, ICD10: I73.9 Continue per vascular. Discussed treatment plan and patient voices understanding. Patient's questions answered appropriately. Medications and potential side effects were discussed and patient voices understanding. Recheck in 6 months. Return to the office as scheduled or as needed for worsening/no improvement. Karla Baron APRN.Karla Lyon APRN.MARK 11/24/2024 2:12 PM Addendum Same medications. Recheck in 6 months. Screening schedule The following prevention plan is recommended: Depression Screening Never done Shingrix Vaccine(1 of 2) Never done RSV Vaccine(1 - 1-dose 75+ series) Never done Medicare Annual Wellness Visit Never done Advance Directive Discussion due on 02/06/2024 Influenza Vaccine(1) due on 10/06/2024 Covid-19 Vaccine( season) due on 10/06/2024 WHAT YOU CAN DO TO PREVENT FALLS Many falls can be prevented. By making some changes, you can lower your chances of falling. Four things YOU can do to prevent falls for you* and your caregiver 1. Begin a regular exercise program Exercise is one of the most important ways to lower your chances of falling. It makes you stronger and helps you feel better. Exercises that improve balance and coordination (like Antoine Chi) are the most helpful. Lack of exercise leads to weakness and increases your chances of falling. Ask your doctor or health care provider about the best type of exercise program for you. 2. Have your health care provider review your medicines Have your doctor or pharmacist review all the medicines you take, even zsxi-wjw-giclefi medicines. As you get older, the way medicines work in your body can change. Some medicines, or combinations of medicines, can make you sleepy or dizzy and can cause you to fall. 3. Have your vision checked Have your eyes checked by an eye doctor at least once a year. You may be wearing the wrong glasses or have a condition like glaucoma or cataracts that limits your vision. Poor vision can increase your chances of falling. 4. Make your home safer About half of all falls happen at home. To make your home safer: Remove things you can trip over (like papers, books, clothes, and shoes) from stairs and places where you walk. Remove small throw rugs or use double-sided tape to keep the rugs from slipping. Keep items you use often in cabinets you can reach easily without using a step stool. Have grab bars put in next to your toilet and in the tub or shower. Use non-slip mats in the bathtub and on shower floors. Improve the lighting in your home. As you get older, you need brighter lights to see well. Hang light-weight curtains or shades to reduce glare. Have handrails and lights put in on all staircases. Wear shoes both inside and outside the house. Avoid going barefoot or wearing slippers. For more information, contact: Centers for Disease Control and Prevention www.cdc.gov/injury * This information may not apply if you have certain medical conditions. Karla Baron APRN.CNP 11/24/2024 10:46 PM Written Stable based upon symptoms and exam. Continue current treatment plan and follow up at least yearly. Karla Baron APRN.CNP 11/24/2024 10:46 PM Written Stable based upon symptoms and exam. Continue current treatment plan and follow up at least yearly. Allergies As of Date: 11/24/2024 Noted Allergy Reaction DUST MITES 12/13/2006 LIPITOR (ATORVASTATIN) 12/04/2007 Comments: myalgia LISINOPRIL 12/04/2007 Comments: cough PENICILLINS 10/14/2004 4 - Hives PLETAL (CILOSTAZOL) 09/04/2019 14 - Other: See Comments Comments: chest pain PRAVASTATIN 05/10/2015 17 - Myalgia Date Reviewed: 11/24/2024 Reviewed by: Alex Valdes LPN - Fully Assessed Reason for Visit: 6 Month Exam [189] Medicare Wellness Exam [4060] Primary Visit Diagnosis:Primary hypertension [I10] Other Visit Diagnoses:Chronic pancreatitis, unspecified pancreatitis type (HCC) [K86.1] Chronic interstitial lung disease (HCC) [J84.9] Encounter for immunization [Z23] Nicotine dependence, cigarettes, uncomplicated [F17.210] Hyperlipidemia LDL goal <70 [E78.5] Peripheral arterial disease [I73.9] Medicare annual wellness visit, subsequent [Z00.00] Order(s):metoprolol tartrate, short acting, (LOPRESSOR) 100 mg tabletTake 1 tablet by mouth two times a day.Disp: 180 tabletRfl: [address] (PROTONIX) 20 mg tabletTAKE 1 TABLET BY MOUTH 1/2 HOUR BEFORE BREAKFAST ON AN EMPTY STOMACH ONCE DAILYDisp: 90 tabletRfl: 3 INFLUENZA VACCINE, PRSV FREE, AGE 65+ YR, HIGH DOSE, TRIVALENT (FLUZONE HIGH-DOSE) [15513BIN] Order #: [id number] [employer] COVID-19 VACCINE AGE 12+ YR (COMIRNATY) [92409CQW] Order #: [id number] FOLLOW UP IN PRIMARY CARE (FAMILY AND INTERNAL MEDICINE) [[id number]] Order #: [id number]: 1 FUTURE Prescriptions as of 11/24/2024 - metoprolol tartrate, short acting, (LOPRESSOR) 100 mg tablet Take 1 tablet by mouth two times a day. - pantoprazole DR (PROTONIX) 20 mg tablet TAKE 1 TABLET BY MOUTH 1/2 HOUR BEFORE BREAKFAST ON AN EMPTY STOMACH ONCE DAILY - tamsulosin (FLOMAX) 0.4 mg Take 1 capsule by mouth once daily. - amLODIPine (NORVASC) 10 mg tablet Take 1 tablet by mouth once daily. - clopidogrel (PLAVIX) 75 mg tablet Take 1 tablet by mouth once daily. - polyethylene glycol 3350 (MIRALAX) 17 gram/dose powder (ONE SCOOP) IN 8 OZ OF WATER DAILY UNTIL STOOLS ARE REGULAR UP TO TWO(2) WEEKS - gabapentin (NEURONTIN) 300 mg capsule Take [...] 8 hours as needed for anxiety. - tiZANidine (ZANAFLEX) 4 mg tablet Take 0.5-1 tablets by mouth at bedtime as needed (muscle spasms/insomnia). - timolol maleate (TIMOPTIC) 0.5 % ophthalmic solution - latanoprost (XALATAN) 0.005 % ophthalmic solution Problem List As Of Date 11/24/2024 Noted Resolved Essential hypertension, benign [I10] 12/10/2006 [...] Diagnosed: 10/10/2022 History of acute anterolateral wall MN [I25.2] 08/10/2006 Diagnosed: 10/10/2022 Vascular disorder of extremity (HCC) [I73.9] 10/10/2022 Diagnosed: 10/10/2022 Bilateral carotid artery stenosis [I65.23] 03/03/2024 Other instructions from your clinician: Same medications. Recheck in 6 months. Screening schedule The following prevention plan is recommended: Depression Screening Never done Shingrix Vaccine(1 of 2) Never done RSV Vaccine(1 - 1-dose 75+ series) Never done Medicare Annual Wellness Visit Never done Advance Directive Discussion due on 02/06/2024 Influenza Vaccine(1) due on 10/06/2024 Covid-19 Vaccine( season) due on 10/06/2024 WHAT YOU CAN DO TO PREVENT FALLS Many falls can be prevented. By making some changes, you can lower your chances of falling. Four things YOU can do to prevent falls for you* and your caregiver 1. Begin a regular exercise program Exercise is one of the most important ways to lower your chances of falling. It makes you stronger and helps you feel better. Exercises that improve balance and coordination (like Antoine Chi) are the most helpful. Lack of exercise leads to weakness and increases your chances of falling. Ask your doctor or health care provider about the best type of exercise program for you. 2. Have your health care provider review your medicines Have your doctor or pharmacist review all the medicines you take, even fmdv-lbh-gpmnikg medicines. As you get older, the way medicines work in your body can change. Some medicines, or combinations of medicines, can make you sleepy or dizzy and can cause you to fall. 3. Have your vision checked Have your eyes checked by an eye doctor at least once a year. You may be wearing the wrong glasses or have a condition like glaucoma or cataracts that limits your vision. Poor vision can increase your chances of falling. 4. Make your home safer About half of all falls happen at home. To make your home safer: Remove things you can trip over (like papers, books, clothes, and shoes) from stairs and places where you walk. Remove small throw rugs or use double-sided tape to keep the rugs from slipping. Keep items you use often in cabinets you can reach easily without using a step stool. Have grab bars put in next to your toilet and in the tub or shower. Use non-slip mats in the bathtub and on shower floors. Improve the lighting in your home. As you get older, you need brighter lights to see well. Hang light-weight curtains or shades to reduce glare. Have handrails and lights put in on all staircases. Wear shoes both inside and outside the house. Avoid going barefoot or wearing slippers. For more information, contact: Centers for Disease Control and Prevention www.cdc.gov/injury * This information may not apply if you have certain medical conditions. Prescriptions ordered this encounter Disp Refills Start End METOPROLOL TARTRATE 100 MG TABLET 180 * 3 11/24/2024 11/24/2025 Route: PO Sig: Take 1 tablet by mouth two times a day. PANTOPRAZOLE 20 MG TABLET,DELAYED RE* 90 t* 3 11/24/2024 Sig: TAKE 1 TABLET BY MOUTH 1/2 HOUR BEFORE BREAKFAST ON AN EMPTY STOMACH ONCE DAILY Medications Discontinued During This Encounter Prescriptions - losartan (COZAAR) 25 mg tablet (Discontinued) Take 1 tablet by mouth once daily for 14 days. - pantoprazole DR (PROTONIX) 20 mg tablet (Discontinued) TAKE 1 TABLET BY MOUTH 1/2 HOUR BEFORE BREAKFAST ON AN EMPTY STOMACH ONCE DAILY - metoprolol tartrate, short acting, (LOPRESSOR) 100 mg tablet (Discontinued) Take 1 tablet by mouth two times a day. Encounter Status:Closed by KARLA BARON on 11/24/24 AMBROSIO Observed: 08/05/2024 12:00 AM Status: COMPLETED Source: [facility] Telephone ([facility]) RAMONITA JOHNSTON ([id number]) 1940 M NFR Date Time Provider Department 08/05/24 KARLA BARON During your visit today, we recorded the following information about you: StarrgennyChing [email or web address] 08/05/2024 2:17 PM Signed Lolly from [facility] calling she had called the patient in [...] if he needs something for pain can [facility]TER advise, she said he lives alone and needs some guidance on his medications. Karla Baron APRN.CNP 08/05/2024 3:14 PM Signed Agree that he should only be taking no more than 8 tylenol a day. If the pain is related to the foot, then that really needs to be addressed by the pain medicine physician that did the procedure. He is also following with pain management Dr Fitzgerald and being prescribed gabapentin and tramadol. Alex Valdes LPN 08/05/2024 3:59 PM Signed Unable to return call to Lolly at [facility] d/t no number listed. 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 Author Type: Nurse Practitioner Type: [...] episode of care unspecified 08/10/06 STENT placed [place] [facility] Alcohol abuse 05/22/2013 Chronic anxiety 10/22/2017 [...] gesture Radius fracture 06/21/2013 See scanned documents [facility] Tobacco abuse 05/22/2013 Urinary calculus, unspecified 01/05 [...] Drug use: No REVIEW OF SYSTEMS Constitutional: (-) poor appetite Cardiovascular: (-) chest pain Respiratory: (+) cough, (-) shortness of breath Gastrointestinal: (-) abdominal pain, (-) heartburn, (+) difficulty swallowing Musculoskeletal: (+) bilateral leg pain (left worse than right), (+) knee pain (left) EXAM: BP 148/62 Pulse (!) 55 Resp 16 SpO2 95% PHYSICAL EXAM: General Appearance: Well appearing, alert, in no acute distress, well-hydrated, well nourished.. Skin: Skin color, texture, turgor normal, no suspicious rashes or lesions. Head: Normocephalic, no masses, lesions, tenderness or abnormalities. Eyes: Anicteric sclera. Extraocular movements are intact. . Lungs: Lungs clear to auscultation. No wheezing, rhonchi, rales.. Heart: RRR without murmur, gallop, or rubs. No ectopy. Neurologic: Gait normal. ASSESSMENT/PLAN 1. Peripheral vascular disease (I73.9) - Recent vascular studies indicate moderate circulation issues in the left leg and severe issues in the right leg. - CT scan scheduled for July 03 to further evaluate vascular status. - Follow-up appointment with vascular surgeon on July [address] results and potential surgical interventions. 2. Stenosis of right carotid artery (I65.21) - completing work-up. - follow-up w/ vascular, as scheduled. 3. Chronic pain syndrome (G89.4) - Currently managed by Dr. Fitzgerald in pain management. - Gabapentin dosage increased; patient tolerating well. - Prescribed additional pain medication but has not used it; advised on potential side effects including drowsiness and constipation. - Recommended continuing follow-up with pain management to optimize pain control. - Follow-up with pain management as scheduled. Discussed treatment plan and patient voices understanding. Patient's questions answered appropriately. Medications and potential side effects were discussed and patient voices understanding. Return to the office as scheduled or as needed for worsening/no improvement. Karla Baron APRN.FLAT SURFACER JEWEL Recording using Nymirum software for draft documentation of the visit was discussed with the patient/authorized circulation representative; all questions welcomed and answered. Patient/authorized circulation representative agreed to proceed CNOV Observed: 06/24/2024 11:00 AM Status: COMPLETED Source: [facility] RAM[facility]ST[facility] ([id number]) 1940 M NFR Date Time Provider Department 06/24/24 11:00 AM KARLA BARON During your visit today, we recorded the following information about you: Pulse Respiration Blood pressure 55/minute 16/minute 148/62 Karla Baron APRN.FLAT SURFACER JEWEL 06/24/2024 11:38 AM Signed - Continue taking [...] have new or worsening symptoms. Karla Baron APRN.FLAT SURF[employer]ER JEWEL 06/24/2024 10:08 PM Signed This is a [...] episode of care unspecified 08/10/06 STENT placed [place] [facility] Alcohol abuse 05/22/2013 Chronic anxiety 10/22/2017 [...] gesture Radius fracture 06/21/2013 See scanned documents [facility] Tobacco abuse 05/22/2013 Urinary calculus, unspecified 01/05 [...] Drug use: No REVIEW OF SYSTEMS Constitutional: (-) poor appetite Cardiovascular: (-) chest pain Respiratory: (+) cough, (-) shortness of breath Gastrointestinal: (-) abdominal pain, (-) heartburn, (+) difficulty swallowing Musculoskeletal: (+) bilateral leg pain (left worse than right), (+) knee pain (left) EXAM: BP 148/62 Pulse (!) 55 Resp 16 SpO2 95% PHYSICAL EXAM: General Appearance: Well appearing, alert, in no acute distress, well-hydrated, well nourished.. Skin: Skin color, texture, turgor normal, no suspicious rashes or lesions. Head: Normocephalic, no masses, lesions, tenderness or abnormalities. Eyes: Anicteric sclera. Extraocular movements are intact. . Lungs: Lungs clear to auscultation. No wheezing, rhonchi, rales.. Heart: RRR without murmur, gallop, or rubs. No ectopy. Neurologic: Gait normal. ASSESSMENT/PLAN 1. Peripheral vascular disease (I73.9) - Recent vascular studies indicate moderate circulation issues in the left leg and severe issues in the right leg. - CT scan scheduled for July 03 to further evaluate vascular status. - Follow-up appointment with vascular surgeon on July [address] results and potential surgical interventions. 2. Stenosis of right carotid artery (I65.21) - completing work-up. - follow-up w/ vascular, as scheduled. 3. Chronic pain syndrome (G89.4) - Currently managed by Dr. Fitzgerald in pain management. - Gabapentin dosage increased; patient tolerating well. - Prescribed additional pain medication but has not used it; advised on potential side effects including drowsiness and constipation. - Recommended continuing follow-up with pain management to optimize pain control. - Follow-up with pain management as scheduled. Discussed treatment plan and patient voices understanding. Patient's questions answered appropriately. Medications and potential side effects were discussed and patient voices understanding. Return to the office as scheduled or as needed for worsening/no improvement. Karla Baron APRN.FLAT SURF[employer]ER JEWEL Recording using Nymirum software for draft documentation of the visit was discussed with the patient/authorized circulation representative; all questions welcomed and answered. Patient/authorized circulation representative agreed to proceed Referring Provider: SELF [200] Allergies As of Date: 06/24/2024 Noted Allergy Reaction DUST MITES 12/13/2006 LIPITOR (ATORVASTATIN) 12/04/2007 Comments: myalgia LISINOPRIL 12/04/2007 Comments: cough PENICILLINS 10/14/2004 4 - Hives PLETAL (CILOSTAZOL) 09/04/2019 14 - Other: See Comments Comments: chest pain PRAVASTATIN 05/10/2015 17 - Myalgia Date Reviewed: 06/24/2024 Reviewed by: Alex Valdes LPN - Fully Assessed Reason for Visit: Recheck [92] Cmt: 1 month follow up Primary Visit Diagnosis:Stenosis of right carotid artery [I65.21] Other Visit Diagnoses:Peripheral vascular disease [I73.9] Chronic pain syndrome [G89.4] Prescriptions as of 06/24/2024 - gabapentin (NEURONTIN) 300 mg capsule Take [...] ophthalmic solution Problem List As Of Date 06/24/2024 Noted Resolved Essential hypertension, benign [I10] 12/10/2006 [...] Diagnosed: 10/10/2022 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 Medications Discontinued During This Encounter Prescriptions - gabapentin (NEURONTIN) 100 mg capsule (Discontinued) Start one pill by mouth at bedtime X 2 nights, then increase to taking medication twice daily for 2 days, then increase medication three times daily thereafter. Level of Service: OFFICE/OUTPATIENT ESTABLISHED LOW MDM 20 MIN [18778] Additional E/M codes: VISIT X INHERENT LONNIE ASSOC WITH MED * Encounter Status:Closed by KARLA BARON on 06/24/24 AMBROSIO Observed: 05/28/2024 12:00 AM Status: COMPLETED Source: [facility] Telephone ([facility]) RAMONITA JOHNSTON ([id number]) 1940 M NFR Date Time Provider Department 05/28/24 KARLA BARON During your visit today, we recorded the following information about you: Jolie Cardoza, RN 05/28/2024 2:18 PM Signed Pt calling in and states he saw Karla Tod yesterday and she sent a referral to [facility] while he was in the office. He states he spoke with them and they did not receive any referral or paperwork. Called and spoke with scheduling for vascular surgery and they state they did not receive anything. Referral order, carotid artery ultrasound results and Karla's office note faxed to [facility] vascular surgery at [phone]. Jolie Cardoza, RN 05/28/2024 2:55 PM Signed Called to confirm that fax went through. Per Smiley in scheduling, she received the paperwork and faxed it to [facility]. She gave their phone number of [phone]. Called and had to leave a [facility] 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 Author Type: Nurse Practitioner Type: [...] more they could do. - Has seen employer relations representative in the past but is reluctant to [...] Most recent visit was last week at [facility] for a medication lodged in the [...] episode of care unspecified 08/10/06 STENT placed [place] [facility] Alcohol abuse 05/22/2013 Chronic anxiety 10/22/2017 [...] gesture Radius fracture 06/21/2013 See scanned documents [facility] Tobacco abuse 05/22/2013 Urinary calculus, unspecified 01/05 [...] kg (162 lb) SpO2 94% BMI 25.37 kg/m? PHYSICAL EXAM: General Appearance: Well appearing, [...] discussion. - Referral to vascular surgery at [facility]; faxed referral and previous study notes. [...] specialists Dr. Fitzgerald and Dr. Gonzalez in [place] if pain persists. - Follow-up in one [...] as needed for worsening/no improvement. Karla Baron APRN.FLAT SURFACER JEWEL Recording using Nymirum software for draft documentation of the visit was discussed with the patient/authorized circulation representative; all questions welcomed and answered. Patient/authorized circulation representative agreed to proceed CNOV Observed: 05/27/2024 11:00 AM Status: COMPLETED Source: [facility] RAM[facility] ([id number]) 1940 M NFR Date Time Provider Department 05/27/24 11:00 AM [facility] During your visit today, we recorded the following information about you: Pulse Respiration Blood pressure Weight 64/minute 16/minute 138/64 73.5 kg Karla Baron APRN.CNP 05/27/2024 11:48 AM Signed Gabapentin 100 mg [...] A referral to a vascular specialist at [facility] has been faxed along with your [...] (e.g., Dr. Fitzgerald or Dr. Gonzalez in [facility]). Karla Baron APRN.CNP 05/27/2024 5:23 PM Signed [...] more they could do. - Has seen employer relations representative in the past but is reluctant to [...] Most recent visit was last week at [facility] for a medication lodged in the [...] episode of care unspecified 08/10/06 STENT placed [place] [facility] Alcohol abuse 05/22/2013 Chronic anxiety 10/22/2017 [...] gesture Radius fracture 06/21/2013 See scanned documents [facility] Tobacco abuse 05/22/2013 Urinary calculus, unspecified 01/05 [...] kg (162 lb) SpO2 94% BMI 25.37 kg/m? PHYSICAL EXAM: General Appearance: Well appearing, [...] discussion. - Referral to vascular surgery at [facility]; faxed referral and previous study notes. [...] specialists Dr. Fitzgerald and Dr. Gonzalez in [place] if pain persists. - Follow-up in one [...] as needed for worsening/no improvement. Karla Baron APRN.FLAT SURFACER JEWEL Recording using Nymirum software for draft documentation of the visit was discussed with the patient/authorized circulation representative; all questions welcomed and answered. Patient/authorized circulation representative agreed to proceed Referring Provider: SELF [200] Allergies As of Date: 05/27/2024 Noted Allergy Reaction DUST MITES 12/13/2006 LIPITOR (ATORVASTATIN) 12/04/2007 Comments: myalgia LISINOPRIL 12/04/2007 Comments: cough PENICILLINS 10/14/2004 4 - Hives PLETAL (CILOSTAZOL) 09/04/2019 14 - Other: See Comments Comments: chest pain PRAVASTATIN 05/10/2015 17 - Myalgia Date Reviewed: 05/27/2024 Reviewed by: Alex Valdes LPN - Fully Assessed Reason for Visit: Recheck [92] Cmt: 6 month follow up Primary Visit Diagnosis:Stenosis of right carotid artery [I65.21] Other Visit Diagnoses:Peripheral vascular disease [I73.9] Chronic pain syndrome [G89.4] Thyroid nodule [E04.1] Nicotine dependence, cigarettes, uncomplicated [F17.210] Insomnia, unspecified type [G47.00] Order(s):CONSULT TO VASCULAR SURGERY [9042] Order #: [id number]: 1 FUTURE gabapentin (NEURONTIN) 100 mg capsuleStart one pill by mouth at bedtime X 2 nights, then increase to taking medication twice daily for 2 days, then increase medication three times daily thereafter.Disp: 90 capsuleRfl: 1 Prescriptions as of 05/27/2024 - gabapentin (NEURONTIN) 100 mg capsule Start [...] ophthalmic solution Problem List As Of Date 05/27/2024 Noted Resolved Essential hypertension, benign [I10] 12/10/2006 [...] Diagnosed: 10/10/2022 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 Fitzgerald or Dr. Gonzalez in [facility]). Prescriptions ordered this encounter Disp Refills Start End GABAPENTIN 100 MG CAPSULE 90 c* 1 05/27/2024 07/27/2024 Sig: Start one pill by mouth at bedtime X 2 nights, then increase to taking medication twice daily for 2 days, then increase medication three times daily thereafter. Level of Service: OFFICE/OUTPATIENT ESTABLISHED MOD [facility] 30 MIN [15016] Additional E/M codes: VISIT CPLX INHERENT EANDM ASSOC WITH MED * Encounter Status:Closed by KARLA BARON on 05/27/24 CAROTID ARTERIES [facility] Observed: 04/03/2024 1:30 PM Status: F Source: [facility] Carotid Duplex Bilateral/Complete Date of service/time: 04/03/2024 1:30:23 PM Name: MR. RAMONITA JOHNSTON Date of : 1940 Age: 84 years [...] interpretation criteria are used as recommended by [employer] Commission. When compared with the prior [...] Subclavian artery: 50-99% stenosis. Technologist: Claire Berry RVT [facility] Ordering physician: KARLA BARON Interpreting physician: JOSE ALFREDO Rainey DO Final CC [employer] Image : [id number] See Link below for Image ALLERGIES DATE TYPE / CODE NAME / CODE REACTION SEVERITY SOURCE 09/04/2019 DRUG INGREDI/[id number] (SNOMED CT) CILOSTAZOL OTHER: SEE C [facility] 05/10/2015 DRUG INGREDI/[id number] (SNOMED CT) PRAVASTATIN Myalgia [facility] 12/04/2007 DRUG INGREDI/[id number] (SNOMED CT) ATORVASTATIN [facility] 12/04/2007 DRUG INGREDI/[id number] (SNOMED CT) LISINOPRIL [facility] 12/13/2006 Environ/[id number] (SNOMED CT) DUST MITES [facility] 10/14/2004 Drug Class/124716382(S NOMED CT) PENICILLINS HIVES [facility] ENCOUNTERS ADMIT/DISCHARGE ACCOUNT NUMBER ADMITTING ENCOUNTER CLASS LOC ATION SOURCE 11/24/2024/ 5 [id number] [facility] 06/24/2024/ 5 [id number] [facility] 05/27/2024/ 5 [id number] [facility] 04/03/2024/ 5 [id number] [facility] [facility] PAYERS ENCOUNTER GUARANTOR PAYER SUBSCRIBER SOURCE 11/24/2024 Primary Insurance:MEDICARE A AND BPolicy Number: [id number] Date:8393-60-74Sdzj Name:Chilo ADAIROB: [id number] [place], [place] [id number] [place] [address] 11/24/2024 Secondary Insurance:[facility] CHOICE PLUSPolicy Number: [id number] Date:2916-20-66Joga Name:Poli ADAIROB: [id number] [place], [place] [address] [place] [address] 06/24/2024 Primary Insurance:MEDICARE A AND BPolicy Number: [id number] Date:9864-61-11Vhvh Name:Chilo ADAIROB: [id number] [place], [place] [address] [place] [address] 06/24/2024 Secondary Insurance:[facility] CHOICE PLUSPolicy Number: [id number] Date:1070-54-50Mxxa Name:Poli ADAIROB: [id number] [place], [place] [address] [place] [address] 05/27/2024 Primary Insurance:MEDICARE A AND BPolicy Number: [id number] Date:2725-80-39Gyfc Name:Chilo ADAIROB: [id number] [place], [place] [address] [place] [address] 05/27/2024 Secondary Insurance:[facility] CHOICE PLUSPolicy Number: [id number] Date:4389-09-00Mwws Name:Poli ADAIROB: [id number] [place], [place] [address] [place] [address] 04/03/2024 Primary Insurance:MEDICARE A AND BPolicy Number: [id number] Date:4650-12-33Kxiw Name:Chilo ADAIROB: [id number] [place], [place] [address] [place] [address] 04/03/2024 Secondary Insurance:[facility] CHOICE PLUSPolicy Number: [id number] Date:3817-00-06Uzie Name:Poli Swain MANAOB: [id number] [place] [address] [facility]
[2025-01-13 11:15] LABS: Hematocrit 47.3 % (40-54); Hemoglobin 16.1 g/dL (13.0-16.5); Mean Corp Hgb Conc 34.0 g/dL (32-36); Mean Corpuscular Volume 92.0 fL (80-94); Mean Platelet Vol. 10.7 fl (6.2-12.0); Platelet Count 295 K/mm3 (150-450); RBC Distribution Width CV 13.0 % (11.6-14.6); RBC Distribution Width SD 44.1 fl (35.1-43.9); Red Blood Count 5.14 M/mm3 (4.6-6.2); White Blood Count 8.5 K/mm3 (4.4-11.0)
[2025-01-13 11:44] LABS: Anion Gap 11 (5-15); BUN 18 mg/dL (4-19); BUN/Creat Ratio 20.4 RATIO (10-20); Calcium,Total 9.4 mg/dL (7.6-11.0); Carbon Dioxide 24.8 mmol/L (21.0-32.0); Chloride 104 mmol/L (98-108); Glucose 134 mg/dL (70-99); Potassium 4.2 mmol/L (3.3-5.1)
--- NOTE | 2025-01-13 14:25 | PAT.ANE_ITS ---
Pre-Assessment Diagnosis/Proposed Procedure Planned Operative Procedure(s): right fem-pop bypass right sartouous flap Anesthesia History Anesthesia History - account development executive: Anesthesia History - account development executive Hx Hospitalization No 01/13/25 09:35 Any Problems With Anesthesia No 01/13/25 09:35 Cholinesterase deficiency No 01/13/25 09:35 You/Your Family Experience No 01/13/25 09:35 fever (hyperthermia) with Relationship Recent Exposure to Contagious No 10/16/24 13:30 Disease Does patient have nerve No 01/13/25 09:35 stimulator Patient instructed to have device shut off --Does patient have Pacemaker or ICD? When Was Last Pacemaker Check QUESTION #4 FULL TEXT: You/Your Family Experience fever (hyperthermia) with Anesthesia Last Oral Intake Last Oral intake: Last Oral Intake NPO since Meds taken in AM with sips of water? Meds patient instructed to take am of surgery PONV PONV - account development executive: PONV - account development executive Female No 01/13/25 09:35 HX of Motion Sickness No 01/13/25 09:35 HX of N/V After Surgery No 01/13/25 09:35 Non-Smoker No 01/13/25 09:35 Duration of Surgery greater Yes 01/13/25 09:35 than 60 minutes Number of Risk Factors 1 01/13/25 09:35 PONV Score Low Risk 01/13/25 09:35 Height & Weight Height & Weight: Anesthesia: Height & Weight Height 5 ft 8 in 11/14/24 10:31 Respiratory Assessment Respiratory Assessment - account development executive: Respiratory Tract Infection Hx - account development executive Hx Respiratory Tract Infection No 01/13/25 09:35 STOP Sleep Apnea STOP Sleep Apnea - account development executive: STOP Sleep Apnea - account development executive Hx Hypertension Yes: CONTROLLED WITH MEDS 01/13/25 09:35 Hx Sleep Apnea No 01/13/25 09:35 CPAP BIPAP Do you snore loudly (louder No 01/13/25 09:35 than talking or can be heard Do you often feel tired/ Yes 01/13/25 09:35 fatigued/ sleepy during daytime? Has anyone observed you stop No 01/13/25 09:35 breathing during sleep? STOP Results Positive 01/13/25 09:35 QUESTION #5 FULL TEXT : Do you snore loudly (louder than talking or can be heard through closed doors)? Tobacco Use History Tobacco Use History - account development executive: Tobacco Use History - account development executive Tobacco Use Smoking Status Heavy Smoker (>10/day) 01/13/25 09:35 Hx Tobacco Use Yes 01/13/25 09:35 Years Smoking Packs Smoked per Day Smoking Cessation Date was within the last 15 years Hx Smoking Cessation Date Hx Smoking Cessation No 01/13/25 09:35 Counseling Hematologic Medial History Hematologic Hx - account development executive: Hematologic Medical Hx - dyno technician Hx of Blood Transfusion No 01/13/25 09:35 Hx of Transfusion in last 3 No 01/13/25 09:35 Months Date of Last Transfusion (if within last 3 months) Ever experience any problems No 01/13/25 09:35 with transfusion(s)? 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 confused, unrespo /Reproduction History /Reproductive History - account development executive: /Reproductive Hx- account development executive Hx Now No 01/13/25 09:35 Gestational Age (in weeks): EDC: Hx Hx Para Hx Section SAB No 01/13/25 09:35 Does the father of the baby or his family experience fever w Father of the baby Malignant Hypertension history comment [facility] Medical History (Updated 01/13/25 @ 09:48 by Madeline Khan) Loss of hearing Complete edentulism, class III Arthritis Restless legs Migraine headache Dietary restriction Difficulty swallowing Shortness of breath on exertion History of pain when walking Wears glasses Alcohol use Smoker History of echocardiogram History of stress test Cardiology follow-up encounter Stenosis of right carotid artery 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 Prostate disease Gastric reflux COPD (chronic obstructive pulmonary disease) 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) 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 Atherosclerosis of coronary artery without angina pectoris Essential hypertension Home Medications ?Medication ?Instructions ?Recorded ?Last Taken ?Type amlodipine 10 mg tablet 10 mg PO DAILY HYPERTENSION 05/02/16 09/17/24 History clopidogrel 75 mg tablet 75 mg PO DAILY BLOOD THINNER 05/02/16 09/17/24 History tamsulosin 0.4 mg capsule (Flomax) 0.4 mg PO QHS PROST ATE 05/02/16 09/17/24 History metoprolol tartrate 100 mg tablet 100 mg PO BID HTN 09/17/24 History pantoprazole 20 mg tablet,delayed 20 mg PO DAILY GERD 11/09/20 09/17/24 History release (Protonix) acetaminophen 500 mg tablet 500 mg PO Q4H PRN pain 03/01 Unknown History (Tylenol Extra Strength) losartan 25 mg tablet 25 mg PO QDAY bp 09/03/24 History brimonidine 0.2 % eye drops 1 drp ophthalmic (eye) BID pressure 09/05/24 09/17/24 History latanoprost 0.005 % eye drops 1 drp ophthalmic (eye) D AILY 09/05/24 09/17/24 History pressure timolol maleate 0.5 % eye drops 1 drp ophthalmic (eye) BID pressure 09/05/24 09/17/24 History Allergy/AdvReac Type Severity Reaction Status Date / Time cilostazol (From Pletal) Allergy Intermediate PT UNSURE Verified 01/13/25 09:30 OF REACTION lisinopril Allergy Intermediate PT UNSURE Verified 01/13/25 09:30 OF REACTION Penicillins Allergy Hives Verified 01/13/25 09:30 atorvastatin AdvReac Intermediate myalgia Verified 01/13/25 09:30 pravastatin AdvReac Intermediate myalgia Verified 01/13/25 09:30 Family History Mother Cancer Brother Heart disease Surgical History (Updated 01/13/25 @ 09:48 by Madeline Khan) History of cystoscopy History of carotid endarterectomy Hx of cardiac cath History of colonoscopy History of angioplasty of peripheral vessel (09/28/09) History of coronary artery stent placement (08/10/06) Social History Smoking Status: Heavy Smoker (>10/day) alcohol intake: current alcohol intake frequency: a few times a month substance use type: does not use Audit: Pertinent Findings Pertinent Findings Stress test pertinent findings: Stress test 08/15/2024. Conclusion. The gated ejection fraction is 56. Abnormal pharmacologic myocardial perfusion stress test. Small?medium sized area of stress?induced ischemia of the and inferior lateral segment of the left ventricle and a small to medium sized area myocardial infarction in the anterior lateral area of the LV. Preserved ejection fraction. Echo (EF%) pertinent findings: Echo 08/15/2024. Normal LV size. Moderate eccentric left ventricular hypertrophy. The left ventricular ejection fraction is 60%. Stage I diastolic dysfunction. Mild focal aortic valve calcification. Heart catheterization pertinent findings: Heart cath 08/25/2024. Coronary calcification. Severe right coronary artery stenosis with calcification and tortuosity moderate LAD disease and a subtotally old obtuse marginal vessel with preserved left ventricular systolic function. Patient with no angina. Recommendations. Recommend continued aggressive medical therapy. No intervention is required for this asymptomatic patient prior to carotid surgery. Recommendation Anesthesia Recommendation Anesthesia recommendation: OPTIMIZED for anesthesia
== END | disposition home or self-care (01) ==
LOC: SDC 03-17 11:22
PROVIDERS: PCP Registered Nurse; Referring Provider Surgery Trauma Surgery; Visit Provider Surgery Trauma Surgery
DX: Z01.818 Encounter for other preprocedural examination (principal); J44.9 Chronic obstructive pulmonary disease, unspecified; Z87.891 Personal history of nicotine dependence; K21.9 Gastro-esophageal reflux disease without esophagitis; I25.10 Atherosclerotic heart disease of native coronary artery without angina pectoris; I10 Essential (primary) hypertension; Z53.9 Procedure and treatment not carried out, unspecified reason
CPT/HCPCS: 36415; 80048; 85027; 86850; 86900; 86901

== ENCOUNTER → 2025-01-21 | Outpatient (CLI) | payer MEDICARE, OTHER, SELFPAY ==
[2025-01-21 13:43] LABS: AST(SGOT) 16 U/L (<=37); Alanine Aminotransfer ALT/SGPT 15 U/L (<=46); Albumin, Serum 4.1 g/dL (3.4-4.8); Alkaline Phosphatase 88 U/L (40-129); Bilirubin, Direct 0.10 mg/dL (0.00-0.30); Cholesterol 221 mg/dL (<=200); Globulin 2.7 g/dL (2.2-4.2); Low Density Lipoprotein Calc. 157 mg/dL; Triglycerides 150 mg/dL; Very Low Density Lipoprotein 30 mg/dL (5-40); cholesterol:hdl ratio screen 6.01
== END | disposition home or self-care (01) ==
PROVIDERS: PCP Registered Nurse; Referring Provider Student in an Organized Health Care Education/Training Program; Visit Provider Student in an Organized Health Care Education/Training Program
DX: I25.10 Atherosclerotic heart disease of native coronary artery without angina pectoris (principal)
CPT/HCPCS: 80061; 80076

== ENCOUNTER 2025-01-27 06:47 | Day surgery (SDC) | payer MEDICARE, OTHER, SELFPAY ==
[2025-01-21 12:48] LABS: Hematocrit 45.0 % (40-54); Hemoglobin 15.5 g/dL (13.0-16.5); Mean Corp Hgb Conc 34.4 g/dL (32-36); Mean Corpuscular Volume 90.9 fL (80-94); Mean Platelet Vol. 11.2 fl (6.2-12.0); Platelet Count 260 K/mm3 (150-450); RBC Distribution Width CV 13.2 % (11.6-14.6); RBC Distribution Width SD 44.3 fl (35.1-43.9); Red Blood Count 4.95 M/mm3 (4.6-6.2); White Blood Count 10.2 K/mm3 (4.4-11.0)
[2025-01-21 13:23] LABS: Anion Gap 12 (5-15); BUN 22 mg/dL (4-19); BUN/Creat Ratio 24.8 RATIO (10-20); Calcium,Total 9.6 mg/dL (7.6-11.0); Carbon Dioxide 22.3 mmol/L (21.0-32.0); Chloride 106 mmol/L (98-108); Glucose 105 mg/dL (70-99); Potassium 4.3 mmol/L (3.3-5.1)
[2025-01-26 08:23] VITALS: BMI 24.0
--- OUTSIDE RECORDS SUMMARY | 2025-01-27 06:53 | XMS RPT_ITS | CCD ---
Author Organization [facility] CliniSyak Care Team Providers Care Geodetic Technician Name Role Phone Ida Hatfield PA-C Primary Care Provider Rina Hatfield PA-C Primary Care Provider Unavailable Haagen CORRECTIONS IDENTIFICATION TECHNICIAN.HOTEL RESERVATIONIST, Karla Primary Care Provider Suppan CORRECTIONS IDENTIFICATION TECHNICIAN.MARK, Danae A Unavailable [phone] Aamir Meade MD Unavailable Suppan CORRECTIONS IDENTIFICATION TECHNICIAN.HOTEL RESERVATIONIST, Danae A Unavailable Suppan CORRECTIONS IDENTIFICATION TECHNICIAN.HOTEL RESERVATIONIST Danae A Unavailable Suppan CORRECTIONS IDENTIFICATION TECHNICIAN.HOTEL RESERVATIONIST, Danae A Unavailable Aamir Meade MD Unavailable Haagen STAGE MANAGER-C, Karla Primary Care Provider Dr. Lindy Blanco DO Attending Provider [phone] Lindy Blanco DO Emergency Provider Dr. Mello Briceño DO Attending Provider [phone] Dr. Mello Briceño DO Emergency Provider Dr. Justice Johnson MD Attending Provider Dr. Justice Johnson MD Referring Provider Dr. Lucien Matthews DO Emergency Provider Hachayo STAGE MANAGER-C, Karla Primary Care Provider [phone] Dr. Lucien Matthews DO Attending Provider Hachayo STAGE MANAGER-C, Karla Referring Provider Sammie Rodriguez Attending Provider Strong PA, Sammie Referring Provider [phone] Nilam KATZ, Dr. Sarkar Attending Provider [phone] Haagen STAGE MANAGER-C, [facility] Primary Care Provider Charleen KATZ, Dr. Tariq Attending Provider Charleen KATZ, Dr. Tariq Referring Provider Jamel KATZ, Dr. Galloway Emergency Provider Deloris KATZ, Dr. Goodrich Attending Provider Jamel KATZ, Dr. Galloway Attending Provider Caden KATZ, Akira Attending Provider [phone] Deloris KATZ, Dr. Goodrich Referring Provider [phone] Nilam KATZ, Dr. Sarkar Other Provider [phone] [place] STAGE MANAGER-C, Manuela Attending Provider [phone] Tod STAGE MANAGER-C, [facility] Primary Care Provider Nilam KATZ, Dr. Sarkar Admit Provider [phone] Nilam KATZ, Dr. Sarkar Referring Provider [phone] Tod STAGE MANAGER-C, [facility] Primary Care Provider Ligia PA, Sammie Attending Provider [phone] Strong PA, Sammie Referring Provider [phone] Tod STAGE MANAGER-C, Karla Referring Provider Nilam KATZ, Dr. Sarkar Attending Provider [phone] Unavailable HAAGEN, KARLA Primary Care Unavailable Haagen STAGE MANAGER-C, Karla Primary Care Physician Haagen STAGE MANAGER-C, Karla Referring Provider Akira Negrete MD Attending Physician Deloris KATZ, Dr. Goodrich Attending Physician Nilam KATZ, Dr. Sarkar Nurse Practitioner [place] STAGE MANAGER-C, Manuela Attending Physician Nilam KATZ, Dr. Sarkar Attending Physician Nilam KATZ, Dr. Sarkar Admitting Physician Sammie Rodriguez Attending Physician Lv KATZ, Dr. Cotto Attending Physician Haagen STAGE MANAGER, Karla Primary Care Unavailable Angyiger, Mello Attending Unavailable Haagen STAGE MANAGER, Karla Primary Care Unavailable Lindy Blanco Attending Unavailable Haagen STAGE MANAGER, Karla Primary Care Unavailable Toribio Yeh Attending Unavailable Kp Puentes Attending Unavailable Jt Puentesril Referring Unavailable Haagen STAGE MANAGER, Karla Primary Care Unavailable Nilam, Mello Attending Unavailable Strong, Sammie Referring Unavailable Haagen STAGE MANAGER, Karla Primary Care Unavailable Weeping Water, Mello Attending Unavailable Weeping Water, Mello Referring Unavailable Nilam, Mello Admitting Unavailable Nilam, Mello Consulting Unavailable Haagen STAGE MANAGER, Karla Primary Care Unavailable Nilam, Mello Referring Unavailable Weeping Water, Mello Admitting Unavailable Weeping Water, Mello Consulting Unavailable Haagen STAGE MANAGER, Karla Primary Care Unavailable Strong, Sammie Attending Unavailable Weeping Water, Mello Attending Unavailable Haagen STAGE MANAGER, Karla Referring Unavailable Haagen STAGE MANAGER, Karla Primary Care Unavailable Nilesh Mccullough Attending Unavailable Haagen STAGE MANAGER, Karla Primary Care Unavailable Lucien Matthews Attending Unavailable Haagen STAGE MANAGER, Karla Primary Care Unavailable Weeping Water, Mello Referring Unavailable Nilam, Mello Admitting Unavailable Nilam, Mello Attending Unavailable Haagen STAGE MANAGER, Karla Primary Care Unavailable Strong, Sammie Attending Unavailable Strong, Sammie Referring Unavailable Haagen STAGE MANAGER, Karla Primary Care Unavailable Yadiel Awan Attending Unavailable Haagen STAGE MANAGER, Karla Referring Unavailable Haagen STAGE MANAGER, Karla Primary Care Unavailable Haagen STAGE MANAGER, Karla Referring Unavailable Haagen STAGE MANAGER, Karla Primary Care Unavailable Strong, Sammie Attending Unavailable Haagen STAGE MANAGER, Karla Referring Unavailable Haagen STAGE MANAGER, Karla Primary Care Unavailable Strong, Sammie Attending Unavailable Weeping Water Mello Attending Unavailable Haagen STAGE MANAGER, Karla Primary Care Unavailable Haagen STAGE MANAGER, Karla Referring Unavailable Strong, Sammie Referring Unavailable Strong, Sammie Attending Unavailable Haagen STAGE MANAGER, Karla Primary Care Unavailable Haagen STAGE MANAGER, Karla Primary Care Unavailable Justice Johnson Attending Unavailable ElizabethJusticeLuciano Referring Unavailable Mello Demarco Consulting Unavailable Deloris, [place] Referring Unavailable Deloris, Kp Attending Unavailable Haagen STAGE MANAGER, Karla Primary Care Unavailable Chandni Fitzgerald Attending Unavailable Basali, Ayman Referring Unavailable Haagen STAGE MANAGER, Karla Primary Care Unavailable Akira Negrete Attending Unavailable Haagen STAGE MANAGER, Karla Referring Unavailable Haagen STAGE MANAGER, Karla Primary Care Unavailable Haagen STAGE MANAGER, Karla Referring Unavailable Deloris, Kp Attending Unavailable Haagen STAGE MANAGER, Karla Primary Care Unavailable Deloris, [place] Attending Unavailable Haagen STAGE MANAGER, Karla Primary Care Unavailable Mello Demarco Attending Unavailable Haagen STAGE MANAGER, Karla Referring Unavailable Haagen STAGE MANAGER, Karla Primary Care Unavailable [place] STAGE MANAGER, Manuela Attending Unavailable Haagen STAGE MANAGER, Karla Primary Care Unavailable Haagen STAGE MANAGER, Karla Referring Unavailable Strong, Sammie Attending Unavailable Haagen STAGE MANAGER, Karla Primary Care Unavailable Deloris, Kp Attending Unavailable Haagen STAGE MANAGER, Karla Primary Care Unavailable Allergies Allergy Classification Reported Allergen(s) Allergy Type Date of Onset Reaction(s) Facility (20 sources) Penicillins; Translations: [PENICILLINS] Allergy to substance 5 Hives [facility] Work Phone: (20 sources) atorvastatin; Translations: [ATORVASTATIN] Drug Allergy 8 myalgia [facility] (20 sources) cilostazol; Translations: [CILOSTAZOL] Drug Allergy 0 Other: See Comments [facility] (20 sources) House dust mite; Translations: [DUST MITES] Propensity to adverse reactions 7 [facility] (20 sources) Lisinopril; Translations: [LISINOPRIL] Drug Allergy 8 PT UNSURE OF REACTION [facility] (20 sources) Pravastatin; Translations: [PRAVASTATIN] Drug Allergy 6 Myalgia [facility] (1 source) atorvastatin Drug Allergy 5 [facility] (1 source) cilostazol Drug Allergy 5 [facility] (1 source) Lisinopril Drug Allergy 5 [facility] (1 source) Pravastatin Drug Allergy 5 [facility] Medications Current Medications Medication Drug [...] Comment on above: Take 4 capsules by [facility] twice daily for 5 days. pantoprazole 20 mg delayed release oral tablet (20 sources) Proton Pump Inhibitor Start: End: 4 take 1 tablet by mouth once daily Start: 05-02-2016 End: 11-09-2020 take 1 tablet by mouth once daily Pantoprazole 40 MG tablet Discontinued 40 mg PO DAILY May 02, 2016 12:00am November 09, 2020 8:43pm Comment on above: TAKE 1 TABLET BY [facility] 1/2 HOUR BEFORE BREAKFAST ON AN EMPTY STOMACH ONCE DAILY polyethylene glycol 3350 93289 mg powder for oral solution (9 sources) Osmotic Laxative Start: 08-29-2024 polyethylene glycol 3350 (MIRALAX) 17 gram/dose powder Indications: Diverticulosis of colon (ONE SCOOP) IN 8 OZ OF WATER DAILY UNTIL STOOLS ARE REGULAR UP TO TWO(2) WEEKS 225 g 3 08/29/2024 Active Start: 08-11-2022 End: 10-10-2022 polyethylene glycol 3350 (OK RALAX) 17 gram/dose powder (ONE SCOOP) IN 8 OZ OF WATER DAILY UNTIL STOOLS ARE REGULAR UP TO TWO(2) WEEKS 225 g 3 08/11/2022 10/10/2022 Discontinued Start: 07-04-2022 End: 10-10-2022 polyethylene glycol 3350 (OK RALAX) 17 gram/dose powder Take 17 g [...] UP TO TWO(2) WEEKS polyethylene glycol 3350 823147 mg / potassium chloride 2970 mg / sodium bicarbonate 6740 mg / sodium chloride 5860 mg / sodium sulfate 62806 mg powder for oral solution (1 source) [...] Chemical Allergen Start: 12-26-2023 End: 12-26-2023 1 [place], TOPICAL, DIRECTED, Starting on Sun12/26/23 at 1200, [...] mg/ml oral solution (15 sources) Phenothiazine, Uncompetitive S-ecqpkw-W-aspartate Receptor Antagonist, Sigma-1 Agonist Start: 01-25-2023 End: [...] 1:27pm Start: 06-11-2024 take 1 capsule by [facility] twice daily gabapentin (NEURONTIN) 300 mg capsule [...] Comment on above: Take 2 tablets by [facility] once daily for 5 days. tiZANidine 4 [...] Test Name Value Interpretation Reference Range Facility [facility] 11-24-2024 [facility] Office Visit (FAMPWS ) -- RAMONITA EL ([id number]) 1940 M NFR Date Time Provider Department 11/24/24 1:40 PM [facility] During [facility] [...] YR, HIGH DOSE, TRIVALENT (FLUZONE HIGH-DOSE) - [employer] COVID-19 VACCINE AGE 12+ YR (COMIRNATY) 5. [...] patient voic (more content not included)... Normal [facility] L/S Spine Bending Flex/[place] 11-14-2024 L/S Spine Bending Flex/Ext [facility] Services [address] [place], [place] [id number] L/S Spine Bending Flex/Ext MR#: [id number] Acct: [id number] Name: RAMONITA EL Rep #: [id number] : 1940 M 84 From: Rina Hendricks MD PCP: RAYO Pillai Status: DEP AMB Study: L/S Spine Bending Flex/Ext Date of Exam: 11/14 Exam# [id number] Ordering Dr: Siomara Ty EXAM: XR Lumbosacral [...] changes lumbar spine as described. Reading Location: [facility] CC: RAYO Baron; KRISTI Webster Instructor Looping: Signed Normal [facility] Orthopedic Visit Reporton Orthopedic Visit Report [facility] [address] [place] [address] [address] [place] [address] OFFICE VISIT Date of Service: 11/14/24 MR#: [id number] Acct: [id number] Name: RAMONITA EL Rep #: [id number] : 1940 Provider: Dr. Yadiel Awan MD Age/Sex: 84/M Location: [facility] Status: Signed Intake Vital Signs 10/16/24 13:30 [...] Part of today???s visit was documented by Robreta OVERTON and Nia Stanton RN, acting as scribe. RAMONITA EL is a 84 year old M here today for right leg pain. He did see [facility] who he saw for a carotid [...] the dis (more content not included)... Normal [facility] Surgery Visit Reporton 10-09 Surgery Visit Report [facility] [address] [place] [address] OFFICE VISIT Date of Service: 10/09/24 MR#: [id number] Acct: [id number] Name: RAMONITA EL Rep #: [id number] : 1940 Provider: KRISTI Garza Age/Sex: 84/M Location: [facility] Status: Signed Intake Vital Signs 09/17/24 16:02 [...] Post Op Diagnoses Carotid stenosis, right I65.21 [facility] Medical History Wears glasses Alcohol use Easy [...] Will clayton (more content not included)... Normal [facility] Surgery Visit Reporton 09-23 Surgery Visit Report [facility] [address] [place] [address] OFFICE VISIT Date of Service: 09/23/24 MR#: [id number] Acct: [id number] Name: RAMONITA EL Rep #: [id number] : 1940 Provider: KRISTI Garza Age/Sex: 84/M Location: [facility] Status: Signed Intake Vital Signs 08/25/24 09:40 [...] Post Op Diagnoses Carotid stenosis, right I65.21 [facility] Medical History Wears glasses Alcohol use Easy [...] infarction (08/10/06 (more content not included)... Normal [facility] Absolute lymphocyte countOrd ered By: Mello Demarco on 09-18-2024 Lymphocytes Auto (Unsp spec) [#/Vol] 0.60 10*3/uL Low 0.83-4.51 [facility] Absolute neutrophil countOrd ered By: Mello Demarco on 09-18-2024 Neutrophils (Bld) [#/Vol] 10.4 10*3/uL High 2.0-7.7 [facility] Automated lymphocyte count a s percentage of total leukocytesOrdered By: Mello Demarco on 09-18-2024 Lymphocytes/100 WBC Auto (Unsp spec) 5.2 % Low 19-41 [facility] Basophil percentageOrdered B y: Mello Demarco on 09-18-2024 Basophils/100 WBC (Bld) 0.1 % 0-1 [facility] CBC W/Diff, Automatedon 09-05 Absolute Lymph 0.60 X10 3/uL Low 0.83-4.51 [facility] Comment on above: Performed By: #### L 100.0100 #### [facility] [address] [place], [address] Absolute Neut 10.4 X10 3/uL High 2.0-7.7 [facility] Comment on above: Performed By: #### L 100.0100 #### [facility] [address] [place], [address] Basophils/100 WBC (Bld) 0.1 % Normal 0-1 [facility] Comment on above: Performed By: #### L 100.0100 #### [facility] [address] [place], [address] Eosinophils/100 WBC (Bld) 0.0 % Normal 0-5 [facility] Comment on above: Performed By: #### L 100.0100 #### [facility] [address] [place], [address] Erythrocyte distribution width (RBC) [Ratio] 13.7 % Normal 11.6-14.6 [facility] Comment on above: Performed By: #### L 100.0100 #### [facility] [address] [place], [address] Hematocrit (Bld) [Volume fraction] 37.8 % Low 40-54 [facility] Comment on above: Performed By: #### L 100.0100 #### [facility] [address] [place], [address] Hemoglobin (Bld) [Mass/Vol] 13.3 g/dL Normal 13.0-16.5 [facility] Comment on above: Performed By: #### L 100.0100 #### [facility] [address] [place], [address] IG% 0.300 Normal 0.0-0.9 [facility] Comment on above: Result Comment: IG% - Immature Granulocytes (promyelocytes, myelocytes and metamyelocytes) > 1% indicates that a LEFT SHIFT is Present. Performed By: #### L 100.0100 #### [facility] [address] [place], [address] Lymphocytes/100 WBC (Bld) 5.2 % Low 19-41 [facility] Comment on above: Performed By: #### L 100.0100 #### [facility] [address] [place], [address] MCH (RBC) [Entitic mass] 31.7 pg Normal 27.0-32.0 [facility] Comment on above: Performed By: #### L 100.0100 #### [facility] [address] [place], [address] MCHC (RBC) [Mass/Vol] 35.2 g/dL Normal 32-36 [facility] Comment on above: Performed By: #### L 100.0100 #### [facility] [address] [place], [address] MCV (RBC) [Entitic vol] 90.2 fL Normal 80-94 [facility] Comment on above: Performed By: #### L 100.0100 #### [facility] [address] [place], [address] Monocytes/100 WBC (Bld) 3.8 % Normal 0-10 [facility] Comment on above: Performed By: #### L 100.0100 #### [facility] [address] [place], [address] Neutrophils/100 WBC (Bld) 90.6 % High 47-70 [facility] Comment on above: Performed By: #### L 100.0100 #### [facility] [address] [place], [address] Nucleated RBC (Bld) [#/Vol] 0 10*3/uL Normal 0-5 [facility] Comment on above: Performed By: #### L 100.0100 #### [facility] [address] [place], [address] Platelet mean volume (Bld) [Entitic vol] 10.3 fL Normal 6.2-12.0 [facility] Comment on above: Performed By: #### L 100.0100 #### [facility] [address] [place], [address] Platelets (Bld) [#/Vol] 219 10*3/uL Normal 150-450 [facility] Comment on above: Performed By: #### L 100.0100 #### [facility] [address] [place], [address] RBC (Bld) [#/Vol] 4.19 10*6/uL Low 4.6-6.2 [facility] Comment on above: Performed By: #### L 100.0100 #### [facility] [address] [place], [address] RDW SD 44.7 fl High 35.1-43.9 [facility] Comment on above: Performed By: #### L 100.0100 #### [facility] [address] [place], [address] WBC (Bld) [#/Vol] 11.5 10*3/uL High 4.4-11.0 [facility] Comment on above: Performed By: #### L 100.0100 #### [facility] [address] [place], [address] Eosinophil percentageOrdered By: Mellorachael Demarco on 09-18-2024 Eosinophils/100 WBC (Bld) 0.0 % 0-5 [facility] Erythrocyte distribution wid th ratioOrdered By: Mellorachael Demarco on 09-18-2024 Erythrocyte distribution width (RBC) [Ratio] 13.7 % 11.6-14.6 [facility] Erythrocyte distribution wid th standard deviationOrdered By: Mellorachael Demarco on 09-18-2024 Erythrocyte distribution width (RBC) [Ratio] 44.7 fl High 35.1-43.9 [facility] Hematocrit Auto (Bld) [Volum e fraction]Ordered By: Mellorachael Demarco 09-18-2024 Hematocrit (Bld) [Volume fraction] 37.8 % Low 40-54 [facility] Hemoglobin measurementOrdere d By: Mello Demarco on 09-18-2024 Hemoglobin (Bld) [Mass/Vol] 13.3 g/dL 13.0-16.5 [facility] Immature granulocytes/100 WB C Auto (Bld)Ordered By: Mellorachael Demarco 09-18-2024 Immature granulocytes/100 WBC (Bld) 0.300 % 0.0-0.9 [facility] Comment on above: IG% - Immature Granu locytes (promyelocytes, myelocytes and metamyelocytes) > 1% indicates that a LEFT SHIFT is Present. MCV (mean corpuscular volume ) determinationOrdered By: Mello Demarco on 09-18-2024 MCV (RBC) [Entitic vol] 90.2 fL 80-94 [facility] Mean corpuscular hemoglobin (MCH) determinationOrdered By: Mellorachael Demarco 09-18-2024 MCH (RBC) [Entitic mass] 31.7 pg 27.0-32.0 [facility] Mean corpuscular hemoglobin concentration (MCHC) determinationOrdered By: Mellorachael Demarco 09-18-2024 MCHC (RBC) [Mass/Vol] 35.2 g/dL 32-36 [facility] Mean platelet volume determi nationOrdered By: Mellorachael Demarco on 09-18-2024 Platelet mean volume (Bld) [Entitic vol] 10.3 fL 6.2-12.0 [facility] Monocyte percentageOrdered B y: Mello Nilam on 09-18-2024 Monocytes/100 WBC (Bld) 3.8 % 0-10 [facility] Neutrophil percentageOrdered By: Mello Demarco on 09-18-2024 Neutrophils/100 WBC (Bld) 90.6 % High 47-70 [facility] Nucleated red blood cell per centageOrdered By: Mellorachael Demarco on 09-18-2024 Nucleated RBC/100 WBC (Bld) [Ratio] 0 % 0-5 [facility] Platelet countOrdered By: Guille rachael Demarco on 09-18-2024 Platelets (Bld) [#/Vol] 219 10*3/uL 150-450 [facility] RBC Auto (Bld) [#/Vol]Ordere d By: Mellorachael Demarco on 09-18-2024 RBC (Bld) [#/Vol] 4.19 10*6/uL Low 4.6-6.2 [facility] White blood cell (WBC) count Ordered By: Mellorachael Demarco on 09-18-2024 WBC (Bld) [#/Vol] 11.5 10*3/uL High 4.4-11.0 [facility] ACT Activated Clotting Timeo n 09-17-2024 ACTk CLOT TIME 239 sec High 74-137 [facility] Comment on above: Performed By: #### L 9100.0100 #### [facility] [address] [place], [place], [id number] (151) ACTk CLOT TIME 268 sec High 74-137 [facility] Comment on above: Performed By: #### L 9100.0100 #### [facility] [address] [place], [place], [id number] ACTk CLOT TIME 124 sec Normal 74-137 [facility] Comment on above: Performed By: #### L 9100.0100 #### [facility] [place], [address] Decalcification bone/plaqueo corazon 09-17-2024 Decalcification bone/plaque Patient Age/Sex Location Account Attending Physician RAMONITA EL /M [facility] [id number] Dr. Mello Demarco MD Specimen: [id number] Received: 09/17/24 Status: MARYGagan Zehra Num: [id number] Spec Type: PLAQUE Subm Dr: Dr. Mello [...] measuring 3.5 x 1.1 x 0.6 cm. Vp Home Health sections are submitted in 1 cassette, following decalcification. CA 09/17/2024 CPT:65016,23994 Patient Age/Sex Location Account Attending Physician RAMONITA EL 84/M ICU [id number] Dr. Mello Demarco MD Signed (signature on file) Dr. Valeri Leo MD 09/21/24 1252 [facility] Comment on above: Performed By: #### P DEC ####[facility] [id number] [place], [address] MR/POSTOP.[place] 09-17-2024 MR/POSTOP.[facility] Medical Records Department [address] [place] [address] Anesthesia Postop Eval I 09/17/24 1358 MR#: [id number] Acct: [id number] Name: RAMONITA EL Rep #: [id number] : 1940 84 From: Joe Clark CRNA PCP: RAYO Pillai Status:ADM IN Y Race: C Location: ICU [id number] Anesthesia: Postop Eval I Current Vital Signs [...] Joe Terrazas Signature: Date CC: Signed Normal [facility] MR/POSTOP.[facility] Medical Records Department [address] [place] [address] Anesthesia Postop Eval I 09/17/24 1357 MR#: [id number] Acct: [id number] Name: RAMONITA EL Rep #: [id number] : 1940 84 From: Joe Clark CRNA PCP: RAYO Pillai Status:DIS IN Y Race: C Location: ICU [id number] Anesthesia: Postop Eval I Current Vital Signs [...] CRNA Cosigner Signature: Date CC: Signed Normal [facility] MR/[id number] 09-17-2024 [facility] Medical Records Department [address] [place] [address] Anesthesia Postop Eval II 09/17/24 1635 MR#: [id number] Acct: [id number] Name: RAMONITA EL Rep #: [id number] : 1940 84 From: Sada Jaqcues CRNA PCP: RAYO Pillai Status:ADM IN Y Race: C Location: ICU [id number] Anesthesia Postop Eval I Sum Postop Eval Completion status Anesthesia document: Postop Eval 1 completed: Yes Anesthesia Postop Eval I Summary Anesthesia Postop Eval I Summary: Anesthesia Postop Eval I: Assessment Summary Airway patent Yes 09/17/24 14:00 IMPRESSION [email or web address] Spontaneous unlabored Yes 09/17/24 14:00 IMPRESSION [email or web address] respirations Mental status Awake 09/17/24 14:00 IMPRESSION [email or web address] nausea No 09/17/24 14:00 IMPRESSION PRINTER.PKEL Vomiting No 09/17/24 14:00 IMPRESSION PRINTER.PKEL Anesthesia Postop Eval I: Fluid Summary Crystalloid volume administer 1,700 09/17/24 14:00 IMPRESSION [email or web address].PKEL (ml) Colloids volume administered ( ml) Blood Product volume administered (ml) Total IV fluid infused 1,700 09/17/24 14:00 IMPRESSION [email or web address] Anesthesia Postop Eval I: Summary Notes Anesthesia Complication No 09/17/24 14:00 IMPRESSION [email or web address] Anesthesia Complication Comment: Post-operative progress note Anesthesia: Postop Eval II Evaluation Mental status: Awake Pain Level: 2 nausea: No Vomiting: No 09/17/24 1635 Date Sada Jacques IMPRESSION PRINTER Cosigner Signature: Date CC: Signed Normal [facility] Operative Reporton 5 Operative Report [facility] Medical Records Department [address] [place] [address] Operative Report 09/17/24 1331 MR#: [id number] Acct: [id number] Name: RAMONITA EL Rep #: [id number] : 1940 84 From: Mello Demarco MD PCP: RAYO Pillai Status:ADM IN Location: ICU [id number] Operative Report (Standard) Operative Information Date of Procedure: 09/17/24 Pre-Operative Diagnosis: right carotid stenosis Post-Operative Diagnosis: same Surgery/Procedure Performed: right carotid endarterectomy performing arts road manager: Yes Queen Producer: Terell Schwarz Tasks completed by medical receptionist assistant: Opening, Closing, Opening closing, Hemostasis: Tie [...] carotid artery beyond the plaque. A 10 [place] shunt was then placed first distally in [...] Vistaseal topical hemostatic was applied and 19 Maltese channel ИВАН placed via (more content not included)... Normal [facility] Type AND Screenon 09-17-2024 ABO and Rh group Nom (Bld) Blood group B Rh(D) positive Normal [facility] Comment on above: Order Comment: S Performed By: #### B , [id number] ####[facility] [address] [facility] [place], [place], [address] Cardiac Cath Diagnosticon Cardiac Cath Diagnostic [facility] Imaging Services [address] [place] [address] Cardiac Cath Diagnostic MR#: [id number] Acct: [id number] Name: RAMONITA EL Rep #: [id number] : 1940 84 From: Kp Puentes MD PCP: RAYO Pillai Status:DEP [facility] Patient Name: RAMONITA EL Study Date: 08/25/2024 Performing: Kp Puentes MD Ht: 68 inches 172.72 cm : 1940 Wt: 152.01 lbs 68.95 kg Age: 84 Gender: male BSA: 1.82 PROCEDURE(S) PERFORMED [id number])[facility] CL[facility]ICAL PROFILE AND INDICATIONS Indications: Suspected CAD [...] Dictated: 08/25/24 1058 Date Transcribed: 08/25/24 1418 Instructor Looping: CO Signed [facility] MR/Iva 09-05-2024 MR/FILIPE [facility] Medical Records Department [address] [place] [address] PAT - Anesthesia 09/05/24 1301 MR#: [id number] Acct: [id number] Name: RAMONITA EL Rep #: [id number] : 1940 84 From: Aditya Diaz MD PCP: RAYO Pillai Status:PRE IN Y Race: C Location: [facility] Pre-Assessment Diagnosis/Proposed Procedure Planned Operative Procedure(s): (R) Right Carotid Endarterectomy Anesthesia History Anesthesia History - application development project manager: Anesthesia History - application development project manager Hx Hospitalization No 09/05/24 11:02 Any Problems [...] take am of surgery PONV PONV - application development project manager: PONV - application development project manager Female No 09/05/24 11:02 HX of Motion [...] 08/25/24 09:40 Respiratory Assessment Respiratory Assessment - application development project manager: Respiratory Tract Infection Hx - application development project manager Hx Respiratory Tract Infection No 09/05/24 11:02 STOP Sleep Apnea STOP Sleep Apnea - application development project manager: STOP Sleep Apnea - application development project manager Hx Hypertension Yes 09/05/24 11:02 Hx Sleep [...] Tobacco Use History Tobacco Use History - application development project manager: Tobacco Use History - application development project manager Tobacco Use Smoking Status Heavy Smoker (>10/day) 09/05/24 11:02 Hx Tobacco Use No 09/05/24 11:02 Years Smoking 60 09/05/24 11:02 Packs Smoked per Day 1 09/05/24 11:02 Smoking Cessation Date was within the last 15 years Hx Smoking Cessation Date Hx Smoking Cessation No 09/05/24 11:02 Counseling Hematologic Medial History Hematologic Hx - application development project manager: 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 Normal [facility] MR/BMSKeke 09-03-2024 MR/BMS.JOSÉ ANTONIO [facility] Vascular Surgery [address] [place] [address] OFFICE VISIT Date of Service: 09/03/24 MR#: [id number] Acct: [id number] Name: RAMONITA EL Rep #: [id number] : 1940 Provider: Dr. Mello Demarco MD Age/Sex: 84/M Location: [facility] Status: Signed Intake Vital Signs 08/25/24 09:40 [...] No hemor (more content not included)... Normal [facility] Echocardiogram study reportO rdered By: Kp Puentes on 08-17-2024 Study report [facility] Cardiovascular Services [address] [place] [address] Echo Complete 08/15/24 0954 MR#: [id number] Acct: [id number] Name: RAMONITA EL Rep #:[id number] : 1940 84 From: Kp Self Attending [...] Kp Puentes MD CC: RAYO Baron; Dr. pK Puentes MD ~ Date Dictated: 08/15/24 0954 Date Transcribed: 08/17/24 1618 Instructor Looping: Signed [facility] Work Phone: Anion gap in Serum or Plasma Ordered By: Mello Demarco on 08-15-2024 Anion gap [Moles/Vol] 11 mmol/L 5-15 [facility] BUN/creatinine ratioOrdered By: Mello Demarco on 08-15-2024 Urea nitrogen/Creatinine [Mass ratio] 22.8 mg/mg High 10-20 [facility] Basic Metabolic Profile (BMP )on 08-15-2024 BUN/CRE 22.8 RATIO High - [facility] Comment on above: Performed By: #### L 9100.0100 #### [facility] [address] [place], [address] Calcium [Mass/Vol] 9.4 mg/dL Normal 7.6-11.0 [facility] Comment on above: Performed By: #### L 9100.0100 #### [facility] [address] [place], [address] Chloride [Moles/Vol] 101 mmol/L Normal 98-108 [facility] Comment on above: Performed By: #### L 9100.0100 #### [facility] [address] [place], [address] CO2 [Moles/Vol] 23.8 mmol/L Normal 21.0-32.0 [facility] Comment on above: Performed By: #### L 9100.0100 #### [facility] [address] [place], [address] Creatinine [Mass/Vol] 0.65 mg/dL Low 0.70-1.20 [facility] Comment on above: Performed By: #### L 9100.0100 #### [facility] [address] [place], [address] GAP 11 Normal 5-15 [facility] Comment on above: Performed By: #### L 00.0100 #### [facility] [address] [place], [address] GFR/1.73 sq M.predicted among non-blacks MDRD (S/P/Bld) [Vol rate/Area] 94 mL/min/{1.73_m2} Normal >60 [facility] Comment on above: Result Comment: mL/m in/1.73m2 CKD-EPI Creatinine Equation (2020) Performed By: #### L 9099.0100 #### [facility] [address] [place], [address] Glucose [Mass/Vol] 99 mg/dL Normal 70-99 [facility] Comment on above: Performed By: #### L 9099.0100 #### [facility] [address] [place], [address] Potassium [Moles/Vol] 4.1 mmol/L Normal 3.3-5.1 [facility] Comment on above: Performed By: #### L 00.0100 #### [facility] [address] [place], [address] Sodium [Moles/Vol] 136 mmol/L Normal 133-145 [facility] Comment on above: Performed By: #### L 9099.0100 #### [facility] [address] [place], [address] Urea nitrogen [Mass/Vol] 15 mg/dL Normal 4-19 [facility] Comment on above: Performed By: #### L 9099.0100 #### [facility] [address] [place], [address] CBC-Complete Blood Cnt No Di ffon 08-15-2024 Erythrocyte distribution width (RBC) [Ratio] 13.0 % Normal 11.6-14.6 [facility] Comment on above: Performed By: #### L 9099.0100 #### [facility] [address] [place], [address] Hematocrit (Bld) [Volume fraction] 47.1 % Normal 40-54 [facility] Comment on above: Performed By: #### L 9100.0100 #### [facility] [address] [place], [address] Hemoglobin (Bld) [Mass/Vol] 16.1 g/dL Normal 13.0-16.5 [facility] Comment on above: Performed By: #### L 9100.0100 #### [facility] [address] [place], [address] MCH (RBC) [Entitic mass] 31.5 pg Normal 27.0-32.0 [facility] Comment on above: Performed By: #### L 9100.0100 #### [facility] [address] [place], [address] MCHC (RBC) [Mass/Vol] 34.2 g/dL Normal 32-36 [facility] Comment on above: Performed By: #### L 9100.0100 #### [facility] [address] [place], [address] MCV (RBC) [Entitic vol] 92.2 fL Normal 80-94 [facility] Comment on above: Performed By: #### L 9100.0100 #### [facility] [address] [place], [address] Platelet mean volume (Bld) [Entitic vol] 10.8 fL Normal 6.2-12.0 [facility] Comment on above: Performed By: #### L 9100.0100 #### [facility] [address] [place], [address] Platelets (Bld) [#/Vol] 213 10*3/uL Normal 150-450 [facility] Comment on above: Performed By: #### L 9100.0100 #### [facility] [address] [place], [address] RBC (Bld) [#/Vol] 5.11 10*6/uL Normal 4.6-6.2 [facility] Comment on above: Performed By: #### L 9100.0100 #### [facility] [address] [place], [address] RDW SD 43.6 fl Normal 35.1-43.9 [facility] Comment on above: Performed By: #### L 00.0100 #### [facility] [address] [place], [address] WBC (Bld) [#/Vol] 12.0 10*3/uL High 4.4-11.0 [facility] Comment on above: Performed By: #### L 9099.0100 #### [facility] [address] [place], [address] Carbon dioxide, total [Moles /volume] in Central venous bloodOrdered By: Mello Demarco on 08-15-2024 CO2 [Moles/Vol] 23.8 mmol/L 21.0-32.0 [facility] Cardiovascular stress test r eportOrdered By: Charmaine Medina on 08-15-2024 Study report [facility] Cardiovascular Services [address] [place] [address] MR#: [id number] Acct: [id number] Name: RAMONITA EL Rep #: [id number] : 1940 84 From: Charmaine Medina MD [...] Dictated: 08/15/24 1001 Date Transcribed: 08/15/24 1001 Instructor Looping: AJ Signed [facility] Chloride assayOrdered By: Guille Demarco on 08-15-2024 Chloride [Moles/Vol] 101 mmol/L 98-108 [facility] Echo Completeon 08-15-2024 Echo Complete [facility] Cardiovascular Services [address] [place] [address] Echo Complete 08/15/24 0954 MR#: [id number] Acct: [id number] Name: RAMONITA EL Rep #: [id number] : 1940 84 From: Kp Puentes MD Attending Dr: Dr. Kp Puentes MD Status: REG C LI Ordering Dr: Kp Puentes MD Date: 08/15/24 Location: [facility] Sex: M C Admitted: Reason For Study [...] Performed By: Lisa Olmedo and Student 08/17/24 5148 Date Kp Puentes MD CC: RAYO Baron; Dr. Kp Puentes MD Date Dictated: 08/15/2454 Date Transcribed: 08/17/241617 Instructor Looping: Signed Rasheed [facility] Erythrocyte distribution wid th ratioOrdered By: Mello Demarco on 08-15-2024 Erythrocyte distribution width (RBC) [Ratio] 13.0 % 11.6-14.6 [facility] Erythrocyte distribution wid th standard deviationOrdered By: Mello Demarco on 08-15-2024 Erythrocyte distribution width (RBC) [Ratio] 43.6 fl 35.1-43.9 [facility] Glomerular filtration rate ( GFR) estimation/1.73 sq m using serum, plasma, or whole bOrdered By: Mello Demarco on 08-15-2024 GFR/1.73 sq M.predicted among non-blacks MDRD (S/P/Bld) [Vol rate/Area] 94 mL/min/{1.73_m2} >60 [facility] Comment on above: mL/min/1.73m2 CKD-EP I Creatinine Equation (2020) Hematocrit Auto (Bld) [Volum e fraction]Ordered By: Mello Demarco on 08-15-2024 Hematocrit (Bld) [Volume fraction] 47.1 % 40-54 [facility] Hemoglobin measurementOrdere d By: Mello Demarco on 08-15-2024 Hemoglobin (Bld) [Mass/Vol] 16.1 g/dL 13.0-16.5 [facility] MCV (mean corpuscular volume ) determinationOrdered By: Mello Demarco on 08-15-2024 MCV (RBC) [Entitic vol] 92.2 fL 80-94 [facility] MR/PAT.ANEon 08-15-2024 MR/PAT.ANE [facility] Medical Records Department [address] [place] [address] PAT - Anesthesia 08/15/24 1433 MR#: [id number] Acct: [id number] Name: RAMONITA EL Rep #: [id number] : 1940 84 From: Owen Davidson MD PCP: RAYO Pillai Status:PRE IN Y Race: C Location: [facility] Pre-Assessment Diagnosis/Proposed Procedure Planned Operative Procedure(s): RT CAROTID ENDARTERECTOMY Anesthesia History Anesthesia History - application development project 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: Anesthesia History - application development project manager Hx Hospitalization No 08/05/24 13:09 Any Problems [...] take am of surgery PONV PONV - application development project manager: PONV - application development project manager Female No 08/05/24 13:09 HX of Motion [...] 08/04/24 13:45 Respiratory Assessment Respiratory Assessment - application development project manager: Respiratory Tract Infection Hx - application development project manager Hx Respiratory Tract Infection No 08/05/24 13:09 STOP Sleep Apnea STOP Sleep Apnea - application development project manager: STOP Sleep Apnea - application development project manager Hx Hypertension Yes 08/05/24 13:09 Hx Sleep [...] Tobacco Use History Tobacco Use History - application development project manager: Tobacco Use History - application development project manager Tobacco Use Smoking Status Current every day smoker 08/05/24 13:09 Hx Tobacco Use No 08/05/24 13:09 Years Smoking Packs Smoked per Day Smoking Cessation Date was within the last 15 years Hx Smoking Cessation Date Hx Smoking Cessation Counseling Hematologic Medial History Hematologic Hx - application development project manager: 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 Specify any problems Hx of Preganancy in last 3 N/A 08/05/24 13:09 Months Nurse Filling Out Transfusion [facility] 08/05/24 13:09 Questions: Date: 08/05/24 08/05/24 13:09 Time: 13:22 08/05/24 13:09 Patient unable to answer at this time (ie. confused, unrespo /Reproduction History /Reproductive History - application development project manager: /Reproductive Hx- application development project manager Hx Now No 08/05/24 13:09 Gestational Age (in weeks): EDC: Hx Hx Para Hx Section SAB No 08/05/24 13:09 Active Medications Active Medications: Current Medications Generic Name Dose Route Start Last Admin Trade Name Freq PRN Reason Stop Dose Admin Clindamycin Phosphate 900 mg in 50 mls @ 75 mls/hr 08/18/24 07:30 Cleocin IV 08/18/24 08:09 INTRAOP ONE [facility] Medical History (Updated 08/06/24 @ 00:01 by [...] with claudicatio (more content not included)... Normal [facility] Mean corpuscular hemoglobin (MCH) determinationOrdered By: Mello Demarco on 08-15-2024 MCH (RBC) [Entitic mass] 31.5 pg 27.0-32.0 [facility] Mean corpuscular hemoglobin concentration (MCHC) determinationOrdered By: Mello Demarco on 08-15-2024 MCHC (RBC) [Mass/Vol] 34.2 g/dL 32-36 [facility] Mean platelet volume determi nationOrdered By: Mello Demarco on 08-15-2024 Platelet mean volume (Bld) [Entitic vol] 10.8 fL 6.2-12.0 [facility] Platelet countOrdered By: Guille Demarco on 08-15-2024 Platelets (Bld) [#/Vol] 213 10*3/uL 150-450 [facility] Potassium measurement (mass/ volume)Ordered By: Mello Demarco on 08-15-2024 Potassium (Unsp spec) [Mass/Vol] 4.1 mmol/L 3.3-5.1 [facility] RBC Auto (Bld) [#/Vol]Ordere d By: Mello Demarco on 08-15-2024 RBC (Bld) [#/Vol] 5.11 10*6/uL 4.6-6.2 [facility] Serum creatinine measurement (mass/volume)Ordered By: Mello Demarco on 08-15-2024 Creatinine [Mass/Vol] 0.65 mg/dL Low 0.70-1.20 [facility] Serum glucose measurement (m ass/volume)Ordered By: Mello Demarco on 08-15-2024 Glucose [Mass/Vol] 99 mg/dL 70-99 [facility] Serum or plasma calcium heather urement (mass/volume)Ordered By: Mello Demarco on 08-15-2024 Calcium [Mass/Vol] 9.4 mg/dL 7.6-11.0 [facility] Serum or plasma urea nitroge n measurement (mass/volume)Ordered By: Mello Demarco on 08-15-2024 Urea nitrogen [Mass/Vol] 15 mg/dL 4-19 [facility] Sodium levelOrdered By: Mellorachael Demarco on 08-15-2024 Sodium [Moles/Vol] 136 mmol/L 133-145 [facility] Stress Reporton 08-15-2024 Stress Report [facility] Cardiovascular Services [address] [place] [address] MR#: [id number] Acct: [id number] Name: RAMONITA EL Rep #: [id number] : 1940 84 From: Charmaine Medina MD Primary Care: RAYO Pillai Status: REG CLI Referring Dr: Kp Puetnes MD Sex: M C Stress Test Report [...] Date Dictated: 08/15/24 100 Date Transcribed: 08/15/241000 Instructor Looping: JEANIE Signed Normal [facility] Type AND Screen - PAT ONLYon 08-15-2024 Ab SCREEN GEL TNP Normal [facility] Comment on above: Order Comment: Surge ry Date: 08/18/24Reason for Laboratory Test [id number] ENARTERECTOMY Result Comment: AMENDED REPORT 08/15/24 1129: Antibody Screen previously reported as: POSITIVE Performed By: #### L 9100.0100 #### [facility] [address] [place], [address] White blood cell (WBC) count Ordered By: Mello Demarco on 08-15-2024 WBC (Bld) [#/Vol] 12.0 10*3/uL High 4.4-11.0 [facility] CNPErendira 08-05-2024 [facility] Telephone (LESLIEWS) -- RAMONITA EL ([id number]) 1940 M NFR Date Time Provider Department 08/05/24 KARLA BARON During your visit today, we recorded the following information about you: Ching MataYEIMI 08/05/2024 2:17 PM Signed oLlly from [facility] calling she had called the patient in [...] if he needs something for pain can STAGE MANAGER advise, she said he lives alone and needs some guidance on his medications. Karla Baron APRN.CNP 08/05/2024 3:14 PM Signed Agree that he should only be taking no more than 8 tylenol a day. If the pain is related to the foot, then that really needs to be addressed by the aquatics specialist that did the procedure. He is also following with pain management Dr Fitzgerald and being prescribed gabapentin and tramadol. Heavenly Valdes LPN 08/05/2024 3:59 PM Signed Unable to return call to Lolly at [facility] d/t no number listed. Phoned pt, notified [...] [Z95.5] 0 (more content not included)... Normal [facility] Orthopedic Visit Reporton Orthopedic Visit Report [facility] [address] [place] [address] OFFICE VISIT Date of Service: 08/04/24 MR#: [id number] Acct: [id number] Name: RAMONITA EL Rep #: [id number] : 1940 Provider: Dr. Akira araujo MD Age/Sex: 84/M Location: [facility].MONIQUE Status: Signed with Addenda [...] Performing Provider: Akira Negrete MD Performing Location: [facility] Administered by: Akira Negrete MD on 08/04/24 14:30 Dose Route Admin Location Dispensed Lot Number Expiration Date [facility] Tunde ufacturer 40 mg intra-articular Left knee 1 mL [id number] 09/05/26 7012-8719-12 [facility] Date cc: * Signed [...] No sig (more content not included)... Normal [facility] Cardiology Visit Reporton Cardiology Visit Report [facility] [address] [place] [address] OFFICE VISIT Date of Service: 07/30/24 MR#: [id number] Acct: [id number] Name: RAMONITA EL Rep #: [id number] : 1940 Provider: Dr. 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 Normal [facility] Emergency Department Summary on 07-29-2024 Emergency Department Summary [facility] Medical Records Department [address] [place] [address] Emergency Department Summary 07/29/24 MR#: [id number] Acct: [id number] Name: RAMONITA EL Rep #: [id number] : 1940 84 From: Nilesh Mccullough MD [...] or hospitalized or had any recent surgeries. [facility] Medical History Stenosis of right carotid artery [...] and a (more content not included)... Normal [facility] Knee 4 or More Viewson 07-29 Knee 4 or More Views [facility] Imaging Services [address] [place] [address] Knee 4 or More Views MR#: [id number] Acct: [id number] Name: RAMONITA EL Rep #: [id number] : 1940 M 84 From: Jabari Alexandra MD PCP: RAYO Pillai Status: PRE ER Study: Knee 4 or More Views Date of Exam: 07/29/24 Exam# [id number] Ordering Dr: Nilesh Mccullough MD PROCEDURE: KNEE [...] visible joint effusion. Reading Location: [facility] CC: STAGE MANAGER-Del Baron; Dr. Nilesh Mccullough MD Instructor Looping: Signed Normal [facility] Lumbar Spine 2 or 3 Viewson 07-24-2024 Lumbar Spine 2 or 3 Views [facility] Imaging Services [address] [place] [address] Lumbar Spine 2 or 3 Views MR#: [id number] Acct: [id number] Name: RAMONITA EL Rep #: [id number] : 1940 M 84 From: Jesus chandra MD PCP: RAYO Pillai Status: REG CLI Study: Lumbar Spine 2 or 3 Views Date of Exam: Exam# [id number] Ordering Dr: Chandni Fitzgerald MD PROCEDURE: LUMBAR [...] CC: RAYO Baron; Dr. Chandni Fitzgerald MD Instructor Looping: Signed Normal [facility] MR/BMS.BVSon 07-17-2024 MR/BMS.[facility] Vascular Surgery [address] [place] [address] OFFICE VISIT Date of Service: 07/17/24 MR#: [id number] Acct: [id number] Name: RAMONITA EL Rep #: [id number] : 1940 Provider: Dr. Mello Demarco MD Age/Sex: 84/M Location: [facility] Status: Signed Intake Vital Signs 05/18/24 05:24 [...] appearing, co (more content not included)... Normal [facility] CTA Head AND Neck W/ Contras ton 07-03-2024 CTA Head AND Neck W/ Contrast [facility] Imaging Services [address] [place] [address] CTA Head AND Neck W/ Contrast MR#: [id number] Acct: [id number] Name: RAMONITA EL Rep #: [id number] : 1940 M 84 From: Parth priest MD PCP: RAYO Pillai Status: REG CLI Study: CTA Head AND Neck W/ Contrast Date of Exam: Exam# [id number] Ordering Dr: Sammie Strong PROCEDURE: CTA HEAD [...] Calcific plaques. LEFT Vertebral: Calcific plaques. Anatomy: [place] anatomy is normal. Aneurysm or [...] involving both internal carotid arteries. Reading Location: [id number] CC: RAYO Baron; KRISTI Garza Instructor Looping: Signed Normal [facility] CNOVon 06-24-2024 CNOV Office Visit (FAMPWS ) -- RAMONITA EL ([id number]) 1940 M [facility] Date Time Provider Department 06/24/24 11:00 AM KARLA BARON During your visit today, we recorded the following information about you: Pulse Respiration Blood pressure 55/minute 16/minute 148/62 Karla Baron APRN.[facility] 06/24/2024 11:38 AM Signed - Continue taking [...] new or worsening symptoms. Karla Baron APRN.HOTEL RESERVATIONIST 06/24/2024 10:08 PM Signed This is a [...] gesture Radius fracture 06/21/2013 See scanned documents [facility] Tobacco abuse 05/22/2013 Urinary calculus, unspecified [...] 1 tab (more content not included)... Normal [facility] Arterial study reportOrdered By: Mello Demarco on 06-05-2024 Noninvasive arteriosclerosis study report [facility] Cardiovascular Services [address] [place] [address] Lower Ext Art Exam w/o Exercis 06/05/24 1341 MR#: [id number] Acct: [id number] Name: RAMONITA EL Rep #:[id number] : 1940 84 From: Mello Self Attending Dr: KRISTI Garza Stat us: [facility] Ordering Dr: Sammie Strong Date: Location: [facility] Sex: M C Admitted: Reason For Study [...] Date Dictated: 06/05/24 1341 Date Transcribed: 06/05/241722 Instructor Looping: Signed [facility] Work Phone: Lower Ext Art Exam w/o Exerc xaing 06-05-2024 Lower Ext Art Exam w/o Exercis [facility] Cardiovascular Services [address] [place] [address] Lower Ext Art Exam w/o Exercis 06/05/24 1341 MR#: [id number] Acct: [id number] Name: RAMONITA EL Rep #: [id number] : 1940 84 From: Mello Demarco MD Attending Dr: KRISTI Garza Status: REG CLI Ordering Dr: Sammie Strong Date: 06/05/24 Location: [facility] Sex: M C Admitted: Reason For Study [...] Dictated: 06/05/24 1341 Date Transcribed: 06/05/24 172 Instructor Looping: Signed [facility] MR/BMSKeke 06-03-2024 MR/BMS.JOSÉ ANTONIO [facility] Vascular Surgery [facility] [address] [place] [address] OFFICE VISIT Date of Service: 06/03/24 MR#: [id number] Acct: [id number] Name: RAMONITA EL Rep #: [id number] : 1940 Provider: KRISTI Garza Age/Sex: 84/M Location: [facility] Status: Signed Intake Vital Signs 05/18/24 05:24 06/03/24 11:05 Height 5 ft 8 in Weight: 162 lb BP 177/62 H Blood Pressure Location Lt brachial Position Sitting Respiration 16 Pulse 68 Pulse Source Monitor Temp 98.4 F Temp Source Temporal Pulse Oximetry (%) 94 Oxygen Delivery Method room air Intake Visit Reasons: Carotid Artery Stenosis Chief Complaint: Establish Care 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 Kenny at [facility] though is uncertain what kind of [...] abnormal gait, (more content not included)... Normal [facility] CNPNon 05-28-2024 CNPN Telephone (FAMPWS) -- RAMONITA EL ([id number]) 1940 M NFR Date Time Provider Department 05/28/24 KARLA BARON During your visit today, we recorded the following information about you: Sandy Cardoza RN 05/28/2024 2:18 PM Signed Pt calling in and states he saw Karla Baron yesterday and she sent a referral to [facility] Vascular Surgery while he was in the office. He states he spoke with them and they did not receive any referral or paperwork. Called and spoke with scheduling for vascular surgery and they state they did not receive anything. Referral order, carotid artery ultrasound results and Karla's office note faxed to [facility] vascular surgery at [phone]. Sandy Cardoza RN 05/28/2024 2:55 PM Signed Called to confirm that fax went through. Per Smiley in scheduling, she received the paperwork and faxed it to [facility]. She gave their phone number of [phone]. Called and had to leave a ms. [...] Reason for Visit: Consult [502] Cmt: to [facility] Vascular Surgery Prescriptions as of 05/28/2024 [...] [K86.1] 10/10/2022 (more content not included)... Normal [facility] CNOVon 05-27-2024 CNOV Office Visit (FAMPWS ) -- RAMONITA EL ([id number]) 1940 M NFR Date Time Provider Department 05/27/24 11:00 AM KARAL BARON During your visit today, we recorded the following information about you: Pulse Respiration Blood pressure Weight 64/minute 16/minute 138/64 73.5 kg Karla Baron APRN.HOTEL RESERVATIONIST 05/27/2024 11:48 AM Signed Gabapentin 100 mg [...] A referral to a vascular specialist at [facility] has been faxed along with your study [...] (e.g., Dr. Fitzgerald or Dr. Gonzalez in [facility]). Karla Baron, SATCY.HOTEL RESERVATIONIST 05/27/2024 5:23 PM Signed This is a [...] more they could do. - Has seen radiologic electronic specialist in the past but is reluctant to [...] Most recent visit was last week at [facility] for a medication lodged in the throat. [...] gesture Radius fracture 06/21/2013 See scanned documents [facility] Tobacco abuse 05/22/2013 Urinary calculus, unspecified 01/05 Renal stone right side; 3 episodes with stones altogether with extraction in 196 PAST SURGICAL HISTORY Procedure Laterality Date ATHERECTOMY, FEMORAL-POPLITEAL 09/28/2009 right COLONOSCOPY 12/26/2023 COLONOSCOPY FLX DX W/COLLJ SPEC WHEN PFRMD 06/21/2015 Colonoscopy CORONARY ENDARTERCOMY OPEN ANY METHOD 08/10/2006 Angioplasty with stent ECHOCARDIOGRAM 11/24/2020 11/25/20 echo (more content not included)... Normal [facility] 12 Lead EKGon 05-18-2024 12 Lead EKG [facility] Cardiovascular Services [address] [place] [address] 12 Lead EKG 05/18/24 0536 MR#: [id number] Acct: [id number] Name: RAMONITA EL Rep #: [id number] : 1940 84 From: Max Morales MD [...] 11:22, Premature ventricular complexes are now Present MN interval has increased Confirmed by Max Morales ([id number]), publishing editor KAY SLOAN ([id number]) on 05/21/2024 10:05:57 AM Referred By: Confirmed By: Max Morales 05/21/24 1005 Date Max Morales MD CC: RAYO Baron; Dr. Lucien Matthews, DO Signed Normal [facility] Absolute lymphocyte countOrd ered By: Lucien Matthews on 05-18-2024 Lymphocytes Auto (Unsp spec) [#/Vol] 1.33 10*3/uL 0.83-4.51 [facility] Absolute neutrophil countOrd ered By: Lucien Matthews on 05-18-2024 Neutrophils (Bld) [#/Vol] 7.0 10*3/uL 2.0-7.7 [facility] Anion gap in Serum or Plasma Ordered By: Lucien Matthews on 05-18-2024 Anion gap [Moles/Vol] 16 mmol/L High 5-15 [facility] Automated lymphocyte count a s percentage of total leukocytesOrdered By: Lucien Matthews on 05-18-2024 Lymphocytes/100 WBC Auto (Unsp spec) 14.4 % Low 19-41 [facility] BUN/creatinine ratioOrdered By: Lucien Matthews on 05-18-2024 Urea nitrogen/Creatinine [Mass ratio] 16.6 mg/mg 10-20 [facility] Basic Metabolic Profile (BMP )on 05-18-2024 BUN/CRE 16.6 RATIO Normal -20 [facility] Comment on above: Performed By: #### L 100.0100, L500.2500 #### [facility] [address] [place], [address] Calcium [Mass/Vol] 9.5 mg/dL Normal 7.6-11.0 [facility] Comment on above: Performed By: #### L 100.0100, L500.2500 #### [facility] [address] [place], [address] Chloride [Moles/Vol] 103 mmol/L Normal 98-108 [facility] Comment on above: Performed By: #### L 100.0100, L500.2500 #### [facility] [address] [place], [address] CO2 [Moles/Vol] 18.4 mmol/L Low 21.0-32.0 [facility] Comment on above: Performed By: #### L 100.0100, L500.2500 #### [facility] [address] [place], [address] Creatinine [Mass/Vol] 0.81 mg/dL Normal 0.70-1.20 [facility] Comment on above: Performed By: #### L 100.0100, L500.2500 #### [facility] [address] [place], [address] ECRCL 66.85 ml/min Normal 50-250 [facility] Comment on above: Performed By: #### L 100.0100, L500.2500 #### [facility] [address] [place], [address] GAP 16 High 5-15 [facility] Comment on above: Performed By: #### L 100.0100, L500.2500 #### [facility] [address] [place], [address] GFR/1.73 sq M.predicted among non-blacks MDRD (S/P/Bld) [Vol rate/Area] 87 mL/min/{1.73_m2} Normal >60 [facility] Comment on above: Result Comment: mL/m in/1.73m2 CKD-EPI Creatinine Equation (2020) Performed By: #### L 100.0100, L500.2500 #### [facility] [address] [place], [address] Glucose [Mass/Vol] 131 mg/dL High 70-99 [facility] Comment on above: Performed By: #### L 100.0100, L500.2500 #### [facility] [address] [place], [address] Potassium [Moles/Vol] 3.8 mmol/L Normal 3.3-5.1 [facility] Comment on above: Performed By: #### L 100.0100, L500.2500 #### [facility] [address] [place], [address] Sodium [Moles/Vol] 138 mmol/L Normal 133-145 [facility] Comment on above: Performed By: #### L 100.0100, L500.2500 #### [facility] [address] [place], [address] Urea nitrogen [Mass/Vol] 14 mg/dL Normal 4-19 [facility] Comment on above: Performed By: #### L 100.0100, L500.2500 #### [facility] [address] [place], [address] Basophil percentageOrdered B y: Lucien Matthews on 05-18-2024 Basophils/100 WBC (Bld) 0.8 % 0-1 [facility] CBC W/Diff, Automatedon 05-06-2024 Absolute Lymph 1.33 X10 3/uL Normal 0.83-4.51 [facility] Comment on above: Performed By: #### L 100.0100, L500.2500 #### [facility] [address] [place], [address] Absolute Neut 7.0 X10 3/uL Normal 2.0-7.7 [facility] Comment on above: Performed By: #### L 100.0100, L500.2500 #### [facility] [address] [place], [address] Basophils/100 WBC (Bld) 0.8 % Normal 0-1 [facility] Comment on above: Performed By: #### L 100.0100, L500.2500 #### [facility] [address] [place], [address] Eosinophils/100 WBC (Bld) 0.8 % Normal 0-5 [facility] Comment on above: Performed By: #### L 100.0100, L500.2500 #### [facility] [address] [place], [address] Erythrocyte distribution width (RBC) [Ratio] 13.2 % Normal 11.6-14.6 [facility] Comment on above: Performed By: #### L 100.0100, L500.2500 #### [facility] [address] [place], [address] Hematocrit (Bld) [Volume fraction] 44.9 % Normal 40-54 [facility] Comment on above: Performed By: #### L 100.0100, L500.2500 #### [facility] [address] [place], [address] Hemoglobin (Bld) [Mass/Vol] 16.0 g/dL Normal 13.0-16.5 [facility] Comment on above: Performed By: #### L 100.0100, L500.2500 #### [facility] [address] [place], [address] IG% 0.300 Normal 0.0-0.9 [facility] Comment on above: Result Comment: IG% - Immature Granulocytes (promyelocytes, myelocytes and metamyelocytes) > 1% indicates that a LEFT SHIFT is Present. Performed By: #### L 100.0100, L500.2500 #### [facility] [address] [place], [address] Lymphocytes/100 WBC (Bld) 14.4 % Low 19-41 [facility] Comment on above: Performed By: #### L 100.0100, L500.2500 #### [facility] [address] [place], [address] MCH (RBC) [Entitic mass] 31.9 pg Normal 27.0-32.0 [facility] Comment on above: Performed By: #### L 100.0100, L500.2500 #### [facility] [address] [place], [address] MCHC (RBC) [Mass/Vol] 35.6 g/dL Normal 32-36 [facility] Comment on above: Performed By: #### L 100.0100, L500.2500 #### [facility] [address] [place], [address] MCV (RBC) [Entitic vol] 89.4 fL Normal 80-94 [facility] Comment on above: Performed By: #### L 100.0100, L500.2500 #### [facility] [address] [place], [address] Monocytes/100 WBC (Bld) 8.5 % Normal 0-10 [facility] Comment on above: Performed By: #### L 100.0100, L500.2500 #### [facility] [address] [place], [address] Neutrophils/100 WBC (Bld) 75.2 % High 47-70 [facility] Comment on above: Performed By: #### L 100.0100, L500.2500 #### [facility] [address] [place], [address] Nucleated RBC (Bld) [#/Vol] 0 10*3/uL Normal 0-5 [facility] Comment on above: Performed By: #### L 100.0100, L500.2500 #### [facility] [address] [place], [address] Platelet mean volume (Bld) [Entitic vol] 10.3 fL Normal 6.2-12.0 [facility] Comment on above: Performed By: #### L 100.0100, L500.2500 #### [facility] [address] [place], [address] Platelets (Bld) [#/Vol] 269 10*3/uL Normal 150-450 [facility] Comment on above: Performed By: #### L 100.0100, L500.2500 #### [facility] [address] [place], [address] RBC (Bld) [#/Vol] 5.02 10*6/uL Normal 4.6-6.2 [facility] Comment on above: Performed By: #### L 100.0100, L500.2500 #### [facility] [address] [place], [address] RDW SD 43.2 fl Normal 35.1-43.9 [facility] Comment on above: Performed By: #### L 100.0100, L500.2500 #### [facility] [address] [place], [address] WBC (Bld) [#/Vol] 9.3 10*3/uL Normal 4.4-11.0 [facility] Comment on above: Performed By: #### L 100.0100, L500.2500 #### [facility] [address] [place], [address] Carbon dioxide, total [Moles /volume] in Central venous bloodOrdered By: Lucien Matthews on 05-18-2024 CO2 [Moles/Vol] 18.4 mmol/L Low 21.0-32.0 [facility] Chest 1 View (Portable)on Chest 1 View (Portable) [facility] Imaging Services [address] [place] [address] Chest 1 View (Portable) MR#: [id number] Acct: [id number] Name: SIENNARAMONITA Brynn Rep #: [id number] : 1940 M 84 From: Max Alvarez i, MD PCP: Karla Baron, STAGE MANAGER-C Status: REG ER Study: Chest 1 View (Portable) Date of Exam: 05/18/24 Exam# [id number] Ordering Dr: Lucien Matthews DO PROCEDURE: CHEST [...] Pneumonia to be ruled out. Reading Location: [id number] CC: DALIAC Karla Baron; Dr. Luicen Matthews DO Instructor Looping: Signed Normal [facility] Chloride assayOrdered By: Sony Matthews on 05-18-2024 Chloride [Moles/Vol] 103 mmol/L 98-108 [facility] Emergency Department Summary on 05-18-2024 Emergency Department Summary [facility] Medical Records Department [address] [place] [address] Emergency Department Summary 05/18/24 MR#: [id number] Acct: [id number] Name: RAMONITA EL Rep #: [id number] : 1940 84 From: Lucien Matthews DO PCP: RAYO Pillai Status:REG ER Location: ED HPI History of Present Illness Chief Complaint: Shortness of Breath [facility] Medical History Alcohol use Prostate disease Easy [...] all present (more content not included)... Normal [facility] Eosinophil percentageOrdered By: Lucien Matthews on 05-18-2024 Eosinophils/100 WBC (Bld) 0.8 % 0-5 [facility] Erythrocyte distribution wid th (RBC) [Ratio]Ordered By: Lucien Matthews on 05-18-2024 Erythrocyte distribution width (RBC) [Entitic vol] 43.2 fL 35.1-43.9 [facility] Erythrocyte distribution wid th ratioOrdered By: Lucien Matthews on 05-18-2024 Erythrocyte distribution width (RBC) [Ratio] 13.2 % 11.6-14.6 [facility] Erythrocyte distribution wid th standard deviationOrdered By: Lucien Matthews on 05-18-2024 Erythrocyte distribution width (RBC) [Ratio] 43.2 fl 35.1-43.9 [facility] Estimation of creatinine john aranceOrdered By: Lucien Matthews on 05-18-2024 Estimated Creatinine Clearance Calc 66.85 ml/min 50-250 [facility] GFR/1.73 sq M.predicted cynthia g non-blacks MDRD (S/P/Bld) [Vol rate/Area]Ordered By: Lucien Matthews on 05-18-2024 Estimated GFR (MDRD) Non-Af Amer 87 >60 [facility] Comment on above: mL/min/1.73m2 CKD-EP I Creatinine Equation (2020) Glomerular filtration rate ( GFR) estimation/1.73 sq m using serum, plasma, or whole bOrdered By: Lucien Matthews on 05-18-2024 GFR/1.73 sq M.predicted among non-blacks MDRD (S/P/Bld) [Vol rate/Area] 87 mL/min/{1.73_m2} >60 [facility] Comment on above: mL/min/1.73m2 CKD-EP I Creatinine Equation (2020) Hematocrit Auto (Bld) [Volum e fraction]Ordered By: Lucien Matthews on 05-18-2024 Hematocrit (Bld) [Volume fraction] 44.9 % 40-54 [facility] Hemoglobin measurementOrdere d By: Lucien Matthews on 05-18-2024 Hemoglobin (Bld) [Mass/Vol] 16.0 g/dL 13.0-16.5 [facility] Immature granulocytes/100 WB C Auto (Bld)Ordered By: Lucien Matthews on 05-18-2024 Immature granulocytes/100 WBC (Bld) 0.300 % 0.0-0.9 [facility] Comment on above: IG% - Immature Granu locytes (promyelocytes, myelocytes and metamyelocytes) > 1% indicates that a LEFT SHIFT is Present. L501.4021on 05-18-2024 Trop T High Sen 17 ng/L Normal <=22 [facility] Comment on above: Order Comment: *PLEA SE ADD ON PER DR.ANIKA* Performed By: #### L 9100.0100 #### [facility] [address] [place], [address] Lymphocytes Auto (Unsp spec) [#/Vol]Ordered By: Lucien Matthews on 05-18-2024 Lymphocytes (Bld) [#/Vol] 1.33 10*3/uL 0.83-4.51 [facility] Lymphocytes/100 WBC Auto (Un sp spec)Ordered By: Lucien Matthews on 05-18-2024 Lymphocytes/100 WBC (Bld) 14.4 % Low 19-41 [facility] MCV (mean corpuscular volume ) determinationOrdered By: Lucien Matthews on 05-18-2024 MCV (RBC) [Entitic vol] 89.4 fL 80-94 [facility] Mean corpuscular hemoglobin (MCH) determinationOrdered By: Lucien Matthews on 05-18-2024 MCH (RBC) [Entitic mass] 31.9 pg 27.0-32.0 [facility] Mean corpuscular hemoglobin concentration (MCHC) determinationOrdered By: Lucien Matthews on 05-18-2024 MCHC (RBC) [Mass/Vol] 35.6 g/dL 32-36 [facility] Mean platelet volume determi nationOrdered By: Lucien Matthews on 05-18-2024 Platelet mean volume (Bld) [Entitic vol] 10.3 fL 6.2-12.0 [facility] Monocyte percentageOrdered B y: Lucien Matthews on 05-18-2024 Monocytes/100 WBC (Bld) 8.5 % 0-10 [facility] Neutrophil percentageOrdered By: Lucien Matthews on 05-18-2024 Neutrophils/100 WBC (Bld) 75.2 % High 47-70 [facility] Nucleated red blood cell per centageOrdered By: Lucien Matthews on 05-18-2024 Nucleated RBC/100 WBC (Bld) [Ratio] 0 % 0-5 [facility] Platelet countOrdered By: Sony Matthews on 05-18-2024 Platelets (Bld) [#/Vol] 269 10*3/uL 150-450 [facility] Potassium (Unsp spec) [Mass/ Vol]Ordered By: Lucien Matthews on 05-18-2024 Potassium [Moles/Vol] 3.8 mmol/L 3.3-5.1 [facility] Potassium measurement (mass/ volume)Ordered By: Lucien Matthews on 05-18-2024 Potassium (Unsp spec) [Mass/Vol] 3.8 mmol/L 3.3-5.1 [facility] RBC Auto (Bld) [#/Vol]Ordere d By: Lucien Matthews on 05-18-2024 RBC (Bld) [#/Vol] 5.02 10*6/uL 4.6-6.2 [facility] Serum creatinine measurement (mass/volume)Ordered By: Lucien Matthews on 05-18-2024 Creatinine [Mass/Vol] 0.81 mg/dL 0.70-1.20 [facility] Serum glucose measurement (m ass/volume)Ordered By: Lucien Matthews on 05-18-2024 Glucose [Mass/Vol] 131 mg/dL High 70-99 [facility] Serum or plasma calcium heather urement (mass/volume)Ordered By: Lucien Matthews on 05-18-2024 Calcium [Mass/Vol] 9.5 mg/dL 7.6-11.0 [facility] Serum or plasma urea nitroge n measurement (mass/volume)Ordered By: Lucien Matthews on 05-18-2024 Urea nitrogen [Mass/Vol] 14 mg/dL 4-19 [facility] Sodium levelOrdered By: Kd Matthews on 05-18-2024 Sodium [Moles/Vol] 138 mmol/L 133-145 [facility] Troponin T.cardiac High sens itivity method [Mass/Vol]Ordered By: Lucien Matthews on 05-18-2024 Troponin T High Sensitivity 17 ng/L <22 [facility] Troponin T.cardiac [Mass/vol ume] in Serum or Plasma by High sensitivity methodOrdered By: Lucien Matthews on 05-18-2024 Troponin T.cardiac High sensitivity method [Mass/Vol] 17 ng/L <22 [facility] White blood cell (WBC) count Ordered By: Lucien Matthews on 05-18-2024 WBC (Bld) [#/Vol] 9.3 10*3/uL 4.4-11.0 [facility] 04-03-2024 [facility] Non-Invasive Vascular Laboratory [facility] Carotid Duplex Bilateral/Complete Date of service/time: [...] artery: 50-99% stenosis. Technologist: Claire Berry RVT, [facility] Ordering physician: KARLA BARON Interpreting physician: JOSE ALFREDO Rainey DO Final CC [facility] : [id number] See Link below for Image Normal [facility] 03-03-2024 CNPN Telephone (LESLIEWS) -- RAMONITA EL ([id number]) 1940 M NFR Date Time Provider Department 03/03/24 KARLA BARON During your visit today, we recorded the following information about you: Karla Baron APRN.HOTEL RESERVATIONIST 03/03/2024 6:52 PM Signed Can please let [...] lab in a month and transferred to [facility] in scheduling to set up [...] [I65.23] Order(s):PROSTATE-SPECIFIC ANTIGEN DIAGNOSTIC [SQPSA] Order #: [id number] FUTURE CAROTID [facility] [[id number]] Order #: [id number] FUTURE Prescriptions as of 03/04/2024 - finasteride [...] 09/06/2017 Stented (more content not included)... Normal [facility] CBC W Auto Differential pane l (Bld)on 02-29-2024 Basophils (Bld) [#/Vol] 0.07 10*3/uL Normal <0.11 [facility] Comment on above: Order Comment: Speci men Type: BLOOD SPECIMEN Ordering Facility: [facility] Address: [address] [place] [address] Performed By: #### 5 7021-8 #### [facility] CLIA [id number] [address] [place] [address] [place] Basophils/100 WBC (Bld) 0.9 % Normal [facility] Comment on above: Order Comment: Speci men Type: BLOOD SPECIMEN Ordering Facility: [facility] Address: [address] [place] [address] Performed By: #### 5 7021-8 #### [facility] CLIA [id number] [address] [place] [address] [place] Differential cell count method Nom (Bld) Auto Normal [facility] Comment on above: Order Comment: Speci men Type: BLOOD SPECIMEN Ordering Facility: [facility] Address: [address] [place] [address] Performed By: #### 5 7021-8 #### [facility] CLIA [id number] [address] [place] [address] [place] Eosinophils (Bld) [#/Vol] 0.13 10*3/uL Normal <0.46 [facility] Comment on above: Order Comment: Speci men Type: BLOOD SPECIMEN Ordering Facility: [facility] Address: [address] [place] [address] Performed By: #### 5 7021-8 #### [facility] CLIA [id number] [address] [place] [address] [place] Eosinophils/100 WBC (Bld) 1.7 % Normal [facility] Comment on above: Order Comment: Speci men Type: BLOOD SPECIMEN Ordering Facility: [facility] Address: [address] [place] [address] Performed By: #### 5 7021-8 #### [facility] CLIA [id number] [address] [place] [address] [place] Erythrocyte distribution width (RBC) [Ratio] 13.3 % Normal 11.5-15.0 [facility] Comment on above: Order Comment: Speci men Type: BLOOD SPECIMEN Ordering Facility: [facility] Address: [address] [place] [address] Performed By: #### 5 7021-8 #### [facility] CLIA [id number] [address] [place] [address] [place] Hematocrit (Bld) [Volume fraction] 47.5 % Normal 39.0-51.0 [facility] Comment on above: Order Comment: Speci men Type: BLOOD SPECIMEN Ordering Facility: [facility] Address: [address] [place] [address] Performed By: #### 5 7021-8 #### [facility] CLIA [id number] [address] [place] [address] [place] Hemoglobin (Bld) [Mass/Vol] 15.7 g/dL Normal 13.0-17.0 [facility] Comment on above: Order Comment: Speci men Type: BLOOD SPECIMEN Ordering Facility: [facility] Address: [address] [place] [address] Performed By: #### 5 7021-8 #### [facility] CLIA [id number] [address] [place] [address] [place] Immature granulocytes (Bld) [#/Vol] 10*3/uL Normal <0.10 [facility] Comment on above: Order Comment: Speci men Type: BLOOD SPECIMEN Ordering Facility: [facility] Address: [address] [place] [address] Performed By: #### 5 7021-8 #### [facility] CLIA [id number] [address] [place] [address] [place] Immature granulocytes/100 WBC (Bld) 0.1 % Normal [facility] Comment on above: Order Comment: Speci men Type: BLOOD SPECIMEN Ordering Facility: [facility] Address: [address] [place] [address] Performed By: #### 5 7021-8 #### [facility] CLIA [id number] [address] [place] [address] [place] Lymphocytes (Bld) [#/Vol] 1.30 10*3/uL Normal 1.00-4.00 [facility] Comment on above: Order Comment: Speci men Type: BLOOD SPECIMEN Ordering Facility: [facility] Address: [address] [place] [address] Performed By: #### 5 7021-8 #### [facility] CLIA [id number] [address] [place] [address] [place] Lymphocytes/100 WBC (Bld) 17.0 % Normal [facility] Comment on above: Order Comment: Speci men Type: BLOOD SPECIMEN Ordering Facility: [facility] Address: [address] [place] [address] Performed By: #### 5 7021-8 #### [facility] CLIA [id number] [address] [place] [address] [place] MCH (RBC) [Entitic mass] 31.2 pg Normal 26.0-34.0 [facility] Comment on above: Order Comment: Speci men Type: BLOOD SPECIMEN Ordering Facility: [facility] Address: [address] [place] [address] Performed By: #### 5 7021-8 #### [facility] CLIA [id number] [address] [place] [address] [place] MCHC (RBC) [Mass/Vol] 33.1 g/dL Normal 30.5-36.0 [facility] Comment on above: Order Comment: Speci men Type: BLOOD SPECIMEN Ordering Facility: [facility] Address: [address] [place] [address] Performed By: #### 5 7021-8 #### [facility] CLIA [id number] [address] [place] [address] [place] MCV (RBC) [Entitic vol] 94.4 fL Normal 80.0-100.0 [facility] Comment on above: Order Comment: Speci men Type: BLOOD SPECIMEN Ordering Facility: [facility] Address: [address] [place] [address] Performed By: #### 5 7021-8 #### [facility] CLIA [id number] [address] [place] [address] [place] Monocytes (Bld) [#/Vol] 0.61 10*3/uL Normal <0.87 [facility] Comment on above: Order Comment: Speci men Type: BLOOD SPECIMEN Ordering Facility: [facility] Address: [address] [place] [address] Performed By: #### 5 7021-8 #### [facility] CLIA [id number] [address] [place] [address] [place] Monocytes/100 WBC (Bld) 8.0 % Normal [facility] Comment on above: Order Comment: Speci men Type: BLOOD SPECIMEN Ordering Facility: [facility] Address: [address] [place] [address] Performed By: #### 5 7021-8 #### [facility] CLIA [id number] [address] [place] [address] [place] Neutrophils (Bld) [#/Vol] 5.53 10*3/uL Normal 1.45-7.50 [facility] Comment on above: Order Comment: Speci men Type: BLOOD SPECIMEN Ordering Facility: [facility] Address: [address] [place] [address] Performed By: #### 5 7021-8 #### [facility] CLIA [id number] [address] [place] [address] [place] Neutrophils/100 WBC (Bld) 72.3 % Normal [facility] Comment on above: Order Comment: Speci men Type: BLOOD SPECIMEN Ordering Facility: [facility] Address: [address] [place] [address] Performed By: #### 5 7021-8 #### [facility] CLIA [id number] [address] [place] [address] [place] Nucleated RBC (Bld) [#/Vol] 10*3/uL Normal <0.01 [facility] Comment on above: Order Comment: Speci men Type: BLOOD SPECIMEN Ordering Facility: [facility] Address: [address] [place] [address] Performed By: #### 5 7021-8 #### [facility] CLIA [id number] [address] [place] [address] [place] Nucleated RBC/100 WBC (Bld) [Ratio] 0.0 /100 WBC Normal [facility] Comment on above: Order Comment: Speci men Type: BLOOD SPECIMEN Ordering Facility: [facility] Address: [address] [place] [address] Performed By: #### 5 7021-8 #### [facility] CLIA [id number] [address] [place] [address] [place] Platelet mean volume (Bld) [Entitic vol] 11.3 fL Normal 9.0-12.7 [facility] Comment on above: Order Comment: Speci men Type: BLOOD SPECIMEN Ordering Facility: [facility] Address: [address] [place] [address] Performed By: #### 5 7021-8 #### [facility] CLIA [id number] [address] [place] [address] [place] Platelets (Bld) [#/Vol] 264 10*3/uL Normal 150-400 [facility] Comment on above: Order Comment: Speci men Type: BLOOD SPECIMEN Ordering Facility: [facility] Address: [address] [place] [address] Performed By: #### 5 7021-8 #### [facility] CLIA [id number] [address] [place] [address] [place] RBC (Bld) [#/Vol] 5.03 10*6/uL Normal 4.20-6.00 [facility] Comment on above: Order Comment: Speci men Type: BLOOD SPECIMEN Ordering Facility: [facility] Address: [address] [place] [address] Performed By: #### 5 7021-8 #### [facility] [place] [id number] [address] [place] [address] [place] WBC (Bld) [#/Vol] 7.65 10*3/uL Normal 3.70-11.00 [facility] Comment on above: Order Comment: Speci men Type: BLOOD SPECIMEN Ordering Facility: [facility] Address: [address] [place] [address] Performed By: #### 5 7021-8 #### [facility] [place] [id number] [address] [place] [address] [place] CNOVon 02-29-2024 CNOV Office Visit (FAMPWS ) -- RAMONITA EL ([id number]) 1940 M NFR Date Time Provider Department [...] episode of care unspecified 08/10/06 STENT placed [facility] Alcohol abuse 05/22/2013 Chronic anxiety 10/22/2017 [...] gesture Radius fracture 06/21/2013 See scanned documents [facility] Tobacco abuse 05/22/2013 Urinary calculus, unspecified [...] nourished.. Skin: (more content not included)... Normal [facility] Comprehensive metabolic 2000 panelon 02-29-2024 Albumin [Mass/Vol] 4.1 g/dL Normal 3.9-4.9 [facility] Comment on above: Order Comment: Speci men Type: BLOOD SPECIMEN Ordering Facility: [facility] Address: [address] [place] [address] Performed By: #### P SAS1 #### [facility] CLIA [id number] [address] [place] [address] [place] ALP [Catalytic activity/Vol] 96 U/L Normal 38-113 [facility] Comment on above: Order Comment: Speci men Type: BLOOD SPECIMEN Ordering Facility: [facility] Address: [address] [place] [address] Performed By: #### P SAS1 #### [facility] CLIA [id number] [address] [place] [address] [place] ALT [Catalytic activity/Vol] 12 U/L Normal 10-54 [facility] Comment on above: Order Comment: Speci men Type: BLOOD SPECIMEN Ordering Facility: [facility] Address: [address] [place] [address] Performed By: #### P SAS1 #### [facility] CLIA [id number] [address] [place] [address] [place] Anion gap [Moles/Vol] 12 mmol/L Normal 8-15 [facility] Comment on above: Order Comment: Speci men Type: BLOOD SPECIMEN Ordering Facility: [facility] Address: [address] [place] [address] Performed By: #### P SAS1 #### [facility] CLIA [id number] [address] [place] [address] [place] AST [Catalytic activity/Vol] 17 U/L Normal 14-40 [facility] Comment on above: Order Comment: Speci men Type: BLOOD SPECIMEN Ordering Facility: [facility] Address: [address] [place] [address] Performed By: #### P SAS1 #### [facility] CLIA [id number] [address] [place] [address] [place] Bilirubin [Mass/Vol] 0.4 mg/dL Normal 0.2-1.3 [facility] Comment on above: Order Comment: Speci men Type: BLOOD SPECIMEN Ordering Facility: [facility] Address: [address] [place] [address] Performed By: #### P SAS1 #### [facility] CLIA [id number] [address] [place] [address] [place] Calcium [Mass/Vol] 9.6 mg/dL Normal 8.5-10.2 [facility] Comment on above: Order Comment: Speci men Type: BLOOD SPECIMEN Ordering Facility: [facility] Address: [address] [place] [address] Performed By: #### P SAS1 #### [facility] CLIA [id number] [address] [place] [address] [place] Chloride [Moles/Vol] 102 mmol/L Normal 98-107 [facility] Comment on above: Order Comment: Speci men Type: BLOOD SPECIMEN Ordering Facility: [facility] Address: [address] [place] [address] Performed By: #### P SAS1 #### [facility] CLIA [id number] [address] [place] [address] [place] CO2 [Moles/Vol] 25 mmol/L Normal 22-30 [facility] Comment on above: Order Comment: Speci men Type: BLOOD SPECIMEN Ordering Facility: [facility] Address: [address] [place] [address] Performed By: #### P SAS1 #### [facility] CLIA [id number] [address] [place] [address] [place] Creatinine [Mass/Vol] 0.68 mg/dL Low 0.73-1.22 [facility] Comment on above: Order Comment: Speci men Type: BLOOD SPECIMEN Ordering Facility: [facility] Address: [address] [place] [address] Performed By: #### P SAS1 #### [facility] CLIA [id number] [address] [place] [address] [place] Creatinine and Glomerular filtration rate.predicted panel (S/P/Bld) 92 mL/min/1.73m??? Normal >=60 [facility] Comment on above: Order Comment: Speci men Type: BLOOD SPECIMEN Ordering Facility: [facility] Address: [address] [place] [address] Result Comment: Nicholas mated Glomerular Filtration Rate [...] GFR. Performed By: #### P SAS1 #### [facility] CLIA [id number] [address] [place] [address] [place] Glucose [Mass/Vol] 97 mg/dL Normal 74-99 [facility] Comment on above: Order Comment: Speci men Type: BLOOD SPECIMEN Ordering Facility: [facility] Address: [address] [place] [address] Result Comment: The [place] Diabetes Association (ADA) provides guidance for cutoff [...] Standards of Medical Care in Diabetes 2016, [place] Diabetes Association. Diabetes Care. 2016.39(Suppl 1). Performed By: #### P SAS1 #### [facility] CLIA [id number] [address] [place] [address] [place] Potassium [Moles/Vol] 4.2 mmol/L Normal 3.7-5.1 [facility] Comment on above: Order Comment: Speci men Type: BLOOD SPECIMEN Ordering Facility: [facility] Address: [address] [place] [address] Performed By: #### P SAS1 #### [facility] CLIA [id number] [address] [place] [address] [place] Protein [Mass/Vol] 7.2 g/dL Normal 6.3-8.0 [facility] Comment on above: Order Comment: Speci men Type: BLOOD SPECIMEN Ordering Facility: [facility] Address: [address] [place] [address] Performed By: #### P SAS1 #### [facility] CLIA [id number] [address] [place] [address] [place] Sodium [Moles/Vol] 139 mmol/L Normal 136-144 [facility] Comment on above: Order Comment: Speci men Type: BLOOD SPECIMEN Ordering Facility: [facility] Address: [address] [place] [address] Performed By: #### P SAS1 #### [facility] CLIA [id number] [address] [place] [address] [place] Urea nitrogen [Mass/Vol] 12 mg/dL Normal 9-24 [facility] Comment on above: Order Comment: Speci men Type: BLOOD SPECIMEN Ordering Facility: [facility] Address: [address] [place] [address] Performed By: #### P SAS1 #### [facility] CLIA [id number] [address] [place] [address] [place] Lipid 1996 panelon 5 Cholesterol [Mass/Vol] 217 mg/dL High <200 [facility] Comment on above: Order Comment: Speci men Type: BLOOD SPECIMEN Ordering Facility: [facility] Address: [address] [place] [address] Result Comment: <200 mg/dL, Desirable 200-239 mg/dL, Borderline high >239 mg/dL, High Performed By: #### P SAS1 #### [facility] CLIA [id number] [address] [place] [address] [place] Cholesterol in HDL [Mass/Vol] 39 mg/dL Low >39 [facility] Comment on above: Order Comment: Speci men Type: BLOOD SPECIMEN Ordering Facility: [facility] Address: [address] [place] [address] Result Comment: 40-5 9 mg/dL, Acceptable >59 mg/dL, High: Negative risk factor for coronary heart disease <40 mg/dL, Low: Positive risk factor for coronary heart disease Performed By: #### P SAS1 #### [facility] CLIA [id number] [address] [place] [address] [place] Cholesterol in LDL [Mass/Vol] 150 mg/dL High <100 [facility] Comment on above: Order Comment: Speci men Type: BLOOD SPECIMEN Ordering Facility: [facility] Address: [address] [place] [address] Result Comment: <100 mg/dL, Optimal 100-129 mg/dL, Near optimal/above optimal 130-159 mg/dL, Borderline high 160-189 mg/dL, High >189 mg/dL, Very high Secondary prevention optimal LDL Cholesterol levels are recommended to be < 70 mg/dL Performed By: #### P SAS1 #### [facility] CLIA [id number] [address] [place] [address] [place] Cholesterol in LDL/Cholesterol in HDL [Mass ratio] 3.85 {ratio} High <2.54 [facility] Comment on above: Order Comment: Jh del cid Type: BLOOD SPECIMEN Ordering Facility: [facility] Address: [address] [place] [address] Result Comment: Refe rence: 1. National Cholesterol Education Program ATP III Guideline At-A-Glance Quick Desk Reference: National Heart, Lung, and Blood [place]. National Institutes of Health. 2001: NIH Publication No. 01-3305. 2. An International Atherosclerosis Society position paper: global recommendations for the management of dyslipidemia: executive summary, Atherosclerosis. 2014: 232(2):410-413. Performed By: #### P SAS1 #### [facility] CLIA [id number] [address] [place] [address] [place] Cholesterol in VLDL [Mass/Vol] 28 mg/dL Normal <30 [facility] Comment on above: Order Comment: Jh del cid Type: BLOOD SPECIMEN Ordering Facility: [facility] Address: [address] [place] [address] Performed By: #### P SAS1 #### [facility] CLIA [id number] [address] [place] [address] [place] Cholesterol non HDL [Mass/Vol] 178 mg/dL High <130 [facility] Comment on above: Order Comment: Jh del cid Type: BLOOD SPECIMEN Ordering Facility: [facility] Address: [address] [place] [address] Result Comment: <130 mg/dL, Optimal 130-159 mg/dL, Near optimal/above optimal 160-189 mg/dL, Borderline high 190-219 mg/dL, High >219 mg/dL, Very high Secondary prevention optimal non HDL Cholesterol levels are recommended to be <100 mg/dL Performed By: #### P SAS1 #### [facility] CLIA [id number] [address] [place] [address] [place] Cholesterol.total/Chol esterol in HDL [Mass ratio] 5.56 {ratio} High <5.10 [facility] Comment on above: Order Comment: Speci men Type: BLOOD SPECIMEN Ordering Facility: [facility] Address: [address] [place] [address] Performed By: #### P SAS1 #### [facility] CLIA [id number] [address] [place] [address] [place] FASTING TIME 12 hrs Normal [facility] Comment on above: Order Comment: Speci men Type: BLOOD SPECIMEN Ordering Facility: [facility] Address: [address] [place] [address] Performed By: #### P SAS1 #### [facility] CLIA [id number] [address] [place] [address] [place] Triglyceride [Mass/Vol] 142 mg/dL Normal <150 [facility] Comment on above: Order Comment: Speci men Type: BLOOD SPECIMEN Ordering Facility: [facility] Address: [address] [place] [address] Result Comment: <150 mg/dL, Normal 150-199 mg/dL, Borderline high 200-499 mg/dL, High >499 mg/dL, Very high Performed By: #### P SAS1 #### [facility] CLIA [id number] [address] [place] [address] [place] Magnesium SerPl-mCncon 02-28 Magnesium [Mass/Vol] 1.9 mg/dL Normal 1.7-2.3 [facility] Comment on above: Order Comment: Speci men Type: BLOOD SPECIMEN Ordering Facility: [facility] Address: [address] [place] [address] Performed By: #### P SAS1 #### [facility] CLIA [id number] [address] [place] [address] [place] PSA/PROSTATE SPECIFIC ANTIGE N SCREENINGon 02-29-2024 Prostate specific Ag [Mass/Vol] 5.99 ng/mL High <2.60 [facility] Comment on above: Order Comment: Speci men Type: BLOOD SPECIMEN Ordering Facility: [facility] Address: [address] [place] [address] Result Comment: Tota l PSA test methodology [...] 2003,349:335-42. Performed By: #### P SAS1 #### [facility] CLIA [id number] [address] [place] [address] [place] CNPErendira 02-27-2024 CNPN Telephone (FAMPWS) -- RAMONITA EL ([id number]) 1940 M NFR Date Time Provider Department [...] nurse for this message. Ashley Grant RN [facility] 02/27/2024 3:49 PM Addendum Please call patient , patient did return the call, we were on hold several minutes , advised patient I will send message for nurse to call back Please call patient [phone] Sandy Cardoza RN 02/27/2024 4:37 PM Signed [...] Reviewed: 02/01/2024 Reviewed by: Gus Sanchez APRN.HOTEL RESERVATIONIST - Fully Assessed Reason for Visit: Patient [...] Chronic interstitia (more content not included)... Normal [facility] Basic Metabolic Profile (BMP )on 02-18-2024 BUN/CRE 17.3 RATIO Normal 10-20 [facility] Comment on above: Performed By: #### L 501.9910, L500.2500 #### [facility] [address] [place], [address] CA,Total 8.9 mg/dL Normal 8.5-10.1 [facility] Comment on above: Performed By: #### L 501.9910, L500.2500 #### [facility] [address] [place], [address] Chloride [Moles/Vol] 108 mmol/L High 98-107 [facility] Comment on above: Performed By: #### L 501.9910, L500.2500 #### [facility] [address] [place], [address] CO2 [Moles/Vol] 27.0 mmol/L Normal 21.0-32.0 [facility] Comment on above: Performed By: #### L 501.9910, L500.2500 #### [facility] [address] [place], [address] Creatinine [Mass/Vol] 0.92 mg/dL Normal 0.70-1.30 [facility] Comment on above: Result Comment: The validity of the calculated GFR GFRAA in patients over 70 years has not been determined. Clinical correlation is essential. Performed By: #### L 501.9910, L500.2500 #### [facility] [address] [place], [address] EST GFR - AA 101 mL/min Normal >60 [facility] Comment on above: Result Comment: Afri can [place] GFR Calc Performed By: #### L 501.9910, L500.2500 #### [facility] [address] [place], [address] GAP 4 Low 5-15 [facility] Comment on above: Performed By: #### L 501.9910, L500.2500 #### [facility] [address] [place], [address] GFR/1.73 sq M.predicted among non-blacks MDRD (S/P/Bld) [Vol rate/Area] 83 mL/min/{1.73_m2} Normal >60 [facility] Comment on above: Result Comment: Non- GFR Calc Performed By: #### L 501.9910, L500.2500 #### [facility] [address] [place], [address] Glucose [Mass/Vol] 131 mg/dL High 74-106 [facility] Comment on above: Result Comment: Fast ing Glucose result greater than or equal to 126 mg/dL suggests DIABETES MELLITUS per A.D.A. criteria. Performed By: #### L 501.9910, L500.2500 #### [facility] [address] [place], [address] Potassium [Moles/Vol] 4.1 mmol/L Normal 3.5-5.1 [facility] Comment on above: Performed By: #### L 501.9910, L500.2500 #### [facility] [address] [place], [address] Sodium [Moles/Vol] 140 mmol/L Normal 136-145 [facility] Comment on above: Performed By: #### L 501.9910, L500.2500 #### [facility] [address] [place], [address] Urea nitrogen [Mass/Vol] 16 mg/dL Normal 7-18 [facility] Comment on above: Performed By: #### L 501.9910, L500.2500 #### [facility] [address] [place], [address] Blood urea nitrogen (BUN)/cr eatinine ratioOrdered By: Justice Johnson on 02-18-2024 Urea nitrogen/Creatinine [Mass ratio] 17.3 mg/mg 10-20 [facility] Carbon dioxide measurementOr dered By: Justice Johnson on 02-18-2024 CO2 [Moles/Vol] 27.0 mmol/L 21.0-32.0 [facility] Chloride measurementOrdered By: Justice Johnson on 02-18-2024 Chloride [Moles/Vol] 108 mmol/L High 98-107 [facility] Estimated glomerular filtrat ion rate (GFR) AmericanOrdered By: Justice Johnson on 01-13-2025 Estimated GFR (MDRD) Amer 101 mL/min >60 [facility] Comment on above: GFR Calc Glomerular filtration rate ( GFR) estimationOrdered By: Justice Johnson on 02-18-2024 Estimated GFR (MDRD) Non-Af Amer 83 mL/min >60 [facility] Comment on above: Non- GFR Calc GFR/1.73 sq M.predicted among non-blacks MDRD (S/P/Bld) [Vol rate/Area] 83 mL/min/{1.73_m2} >60 [facility] Comment on above: Non- GFR Calc Glucose measurementOrdered B y: Justice Johnson on 02-18-2024 Glucose [Mass/Vol] 131 mg/dL High 74-106 [facility] Comment on above: Fasting Glucose resu lt greater than or equal to 126 mg/dL suggests DIABETES MELLITUS per A.D.A. criteria. PSA,Total - Annual Screenon 02-18-2024 PSA,TOT SCREEN 3.70 ng/mL Normal 0.00-4.00 [facility] Comment on above: Result Comment: This test was performed using the TPSA assay method for the [employer] chemistry system. Values obtained with different assay methods cannot be used interchangably. When changing PSA assays in the course of monitoring a patient, additional sequential testing should be carried out to confirm baseline values. Performed By: #### L 501.9910, L500.2500 #### [facility] [place], [address] Potassium measurementOrdered By: Justice Johnson on 02-18-2024 Potassium [Moles/Vol] 4.1 mmol/L 3.5-5.1 [facility] Screening prostate specific antigen (PSA) measurementOrdered By: Justice Johnson on 02-18-2024 Prostate Specific Antigen Screen 3.70 ng/mL 0.00-4.00 [facility] Comment on above: This test was perfor med using the TPSA assay method for [employer] chemistry system. Values obtained with differentassay methods cannot be used interchangably.When changing PSA assays in the course of monitoring apatient, additional sequential testing should be carriedout to confirm baseline values. Serum anion gap measurementO rdered By: Justice Johnson on 02-18-2024 Anion gap [Moles/Vol] 4 mmol/L Low 5-15 [facility] Serum or plasma calcium heather urement (mass/volume)Ordered By: Justice Johnson on 02-18-2024 Calcium [Mass/Vol] 8.9 mg/dL 8.5-10.1 [facility] Serum or plasma creatinine m easurement (mass/volume)Ordered By: Justice Johnson on 02-18-2024 Creatinine [Mass/Vol] 0.92 mg/dL 0.70-1.30 [facility] Comment on above: The validity of the calculated GFR & GFRAA in patients over 70 years has not been determined. Clinical correlation is essential. Serum or plasma urea nitroge n measurement (mass/volume)Ordered By: Justice Johnson on 02-18-2024 Urea nitrogen [Mass/Vol] 16 mg/dL 7-18 [facility] Sodium levelOrdered By: Justcie Johnson on 02-18-2024 Sodium [Moles/Vol] 140 mmol/L 136-145 [facility] Urine Cultureon 02-13-2024 [facility] Staphylococcus epide rmidis [place] Count >100,000 Staphylococcus epidermidis: REACTION cefOXitin Susc Islt Doxycycline Islt GERALD 1 S Clindamycin.induced Susc Islt NEG Gentamicin Islt GERALD <=0.5 S Linezolid Islt GERALD 2 S Nitrofurantoin Islt GERALD <=16 S Oxacillin Susc Islt >=4 R Tetracycline Islt GERALD 2 S TMP SMX Islt GERALD 80 R Vancomycin Islt GERALD 1 S Normal [facility] Comment on above: Performed By: #### M 100.2200 ####[facility] [address] [place], [place], [id number] Absolute neutrophil countOrd ered By: Mello Briceño on 02-11-2024 Neutrophils (Bld) [#/Vol] 7.5 10*3/uL 2.0-7.7 [facility] Basic Metabolic Profile (BMP )on 02-11-2024 BUN/CRE 25.4 RATIO High 10-20 [facility] Comment on above: Performed By: #### L 500.2500, L100.0100 ####[facility] [address] [place], [address] CA,Total 9.4 mg/dL Normal 8.5-10.1 [facility] Comment on above: Performed By: #### L 500.2500, L100.0100 ####[facility] [address] [place], [address] Chloride [Moles/Vol] 109 mmol/L High 98-107 [facility] Comment on above: Performed By: #### L 500.2500, L100.0100 ####[facility] [address] [place], [address] CO2 [Moles/Vol] 25.0 mmol/L Normal 21.0-32.0 [facility] Comment on above: Performed By: #### L 500.2500, L100.0100 ####[facility] [address] [place], [address] Creatinine [Mass/Vol] 0.90 mg/dL Normal 0.70-1.30 [facility] Comment on above: Result Comment: The validity of the calculated GFR GFRAA in patients over 70 years has not been determined. Clinical correlation is essential. Performed By: #### L 500.2500, L100.0100 ####[facility] [address] [place], [address] ECRCL 61.22 ml/min Normal [facility] Comment on above: Performed By: #### L 500.2500, L100.0100 ####[facility] [address] [place], [address] EST GFR - AA 103 mL/min Normal >60 [facility] Comment on above: Result Comment: Afri can Belgian GFR Calc Performed By: #### L 500.2500, L100.0100 ####[facility] [address] [place], [address] GAP 6 Normal 5-15 [facility] Comment on above: Performed By: #### L 500.2500, L100.0100 ####[facility] [address] [place], [address] GFR/1.73 sq M.predicted among non-blacks MDRD (S/P/Bld) [Vol rate/Area] 85 mL/min/{1.73_m2} Normal >60 [facility] Comment on above: Result Comment: Non- GFR Calc Performed By: #### L 500.2500, L100.0100 ####[facility] [address] [place], [address] Glucose [Mass/Vol] 133 mg/dL High 74-106 [facility] Comment on above: Result Comment: Fast ing Glucose result greater than or equal to 126 mg/dL suggests DIABETES MELLITUS per A.D.A. criteria. Performed By: #### L 500.2500, L100.0100 ####[facility] [address] [place], [address] Potassium [Moles/Vol] 3.6 mmol/L Normal 3.5-5.1 [facility] Comment on above: Performed By: #### L 500.2500, L100.0100 ####[facility] [address] [place], [address] Sodium [Moles/Vol] 140 mmol/L Normal 136-145 [facility] Comment on above: Performed By: #### L 500.2500, L100.0100 ####[facility] [address] [place], [address] Urea nitrogen [Mass/Vol] 23 mg/dL High 7-18 [facility] Comment on above: Performed By: #### L 500.2500, L100.0100 ####[facility] [address] [place], [address] Basophil percentageOrdered B y: Mello Briceño on 02-11-2024 Basophils/100 WBC (Bld) 0.8 % 0-1 [facility] Bilirubin Test strip Ql (U)O rdered By: Mello Briceño on 02-11-2024 Bilirubin Ql (U) 1 mg/dL High Negative [facility] Comment on above: COLOR OF URINE MAY A FFECT DIPSTICK RESULTS. Blood urea nitrogen (BUN)/cr eatinine ratioOrdered By: Mello Briceño on 02-11-2024 Urea nitrogen/Creatinine [Mass ratio] 25.4 mg/mg High 10-20 [facility] CBC W/Diff, Automatedon Absolute Lymph 1.47 X10 3/uL Normal 0.83-4.51 [facility] Comment on above: Performed By: #### L 500.2500, L100.0100 ####[facility] [address] [place], [address] Absolute Neut 7.5 X10 3/uL Normal 2.0-7.7 [facility] Comment on above: Performed By: #### L 500.2500, L100.0100 ####[facility] [address] [place], [address] Basophils/100 WBC (Bld) 0.8 % Normal 0-1 [facility] Comment on above: Performed By: #### L 500.2500, L100.0100 ####[facility] [address] [place], [address] Eosinophils/100 WBC (Bld) 1.2 % Normal 0-5 [facility] Comment on above: Performed By: #### L 500.2500, L100.0100 ####[facility] [address] [place], [address] Erythrocyte distribution width (RBC) [Ratio] 14.8 % High 11.6-14.6 [facility] Comment on above: Performed By: #### L 500.2500, L100.0100 ####[facility] [address] [place], [address] Hematocrit (Bld) [Volume fraction] 45.0 % Normal 40-54 [facility] Comment on above: Performed By: #### L 500.2500, L100.0100 ####[facility] [address] [place], [address] Hemoglobin (Bld) [Mass/Vol] 16.1 g/dL Normal 13.0-16.5 [facility] Comment on above: Performed By: #### L 500.2500, L100.0100 ####[facility] [address] [place], [address] IG% 0.500 Normal 0.0-0.9 [facility] Comment on above: Result Comment: IG% - Immature Granulocytes (promyelocytes, myelocytes and metamyelocytes) > 1% indicates that a LEFT SHIFT is Present. Performed By: #### L 500.2500, L100.0100 ####[facility] [address] [place], [address] Lymphocytes/100 WBC (Bld) 14.8 % Low 19-41 [facility] Comment on above: Performed By: #### L 500.2500, L100.0100 ####[facility] [address] [place], [address] MCH (RBC) [Entitic mass] 34.3 pg High 27.0-32.0 [facility] Comment on above: Performed By: #### L 500.2500, L100.0100 ####[facility] [address] [place], [address] MCHC (RBC) [Mass/Vol] 35.8 g/dL Normal 32-36 [facility] Comment on above: Performed By: #### L 500.2500, L100.0100 ####[facility] [address] [place], [address] MCV (RBC) [Entitic vol] 95.7 fL High 80-94 [facility] Comment on above: Performed By: #### L 500.2500, L100.0100 ####[facility] [address] [place], [address] Monocytes/100 WBC (Bld) 7.3 % Normal 0-10 [facility] Comment on above: Performed By: #### L 500.2500, L100.0100 ####[facility] [address] [place], [address] Neutrophils/100 WBC (Bld) 75.4 % High 47-70 [facility] Comment on above: Performed By: #### L 500.2500, L100.0100 ####[facility] [address] [place], [address] Nucleated RBC (Bld) [#/Vol] 0 10*3/uL Normal 0-5 [facility] Comment on above: Performed By: #### L 500.2500, L100.0100 ####[facility] [address] [place], [address] Platelet mean volume (Bld) [Entitic vol] 10.7 fL Normal 6.2-12.0 [facility] Comment on above: Performed By: #### L 500.2500, L100.0100 ####[facility] [address] [place], [address] Platelets (Bld) [#/Vol] 350 10*3/uL Normal 150-450 [facility] Comment on above: Performed By: #### L 500.2500, L100.0100 ####[facility] [address] [place], [address] RBC (Bld) [#/Vol] 4.70 10*6/uL Normal 4.6-6.2 [facility] Comment on above: Performed By: #### L 500.2500, L100.0100 ####[facility] [address] [place], [address] RDW SD 44.0 fl High 35.1-43.9 [facility] Comment on above: Performed By: #### L 500.2500, L100.0100 ####[facility] [address] [place], [address] WBC (Bld) [#/Vol] 10.0 10*3/uL Normal 4.4-11.0 [facility] Comment on above: Performed By: #### L 500.2500, L100.0100 ####[facility] [address], [address] Calcium oxalate crystals LM Ql (Urine sed)Ordered By: Mello Briceño on 02-11-2024 Urine Calcium Oxalate Crystals RARE /hpf [facility] Carbon dioxide measurementOr dered By: Mello Briceño on 02-11-2024 CO2 [Moles/Vol] 25.0 mmol/L 21.0-32.0 [facility] Chloride measurementOrdered By: Mello Briceño on 02-11-2024 Chloride [Moles/Vol] 109 mmol/L High 98-107 [facility] Emergency Department Summary on 02-11-2024 Emergency Department Summary [facility] Medical Records Department [address] [place] [address] Emergency Department Summary 02/11/24 MR#: [id number] Acct: [id number] Name: RAMONITA EL Rep #: [id number] : 1940 83 From: Mello Briceño DO [...] vomiting. Patient describes his pain as burning. [facility] Medical History Alcohol use Prostate disease Easy [...] the patient's (more content not included)... Normal [facility] Eosinophil percentageOrdered By: Mello Briceño on 02-11-2024 Eosinophils/100 WBC (Bld) 1.2 % 0-5 [facility] Epithelial cells.squamous LM Ql (Urine sed)Ordered By: Mello Briceño on 02-11-2024 Epithelial cells.squamous LM.HPF (Urine sed) [#/Area] 0 /[HPF] 0-5 [facility] Erythrocyte distribution wid th (RBC) [Ratio]Ordered By: Mello Briceño on 02-11-2024 Erythrocyte distribution width (RBC) [Entitic vol] 44.0 fL High 35.1-43.9 [facility] Erythrocyte distribution wid th ratioOrdered By: Mello Briceño on 02-11-2024 Erythrocyte distribution width (RBC) [Ratio] 14.8 % High 11.6-14.6 [facility] Estimated glomerular filtrat ion rate (GFR) AmericanOrdered By: Mello Briceño on 02-11-2024 Estimated GFR (MDRD) Amer 103 mL/min >60 [facility] Comment on above: GFR Calc Estimation of creatinine john aranceOrdered By: Mello Briceño on 02-11-2024 Estimated Creatinine Clearance Calc 61.22 ml/min [facility] Glomerular filtration rate ( GFR) estimationOrdered By: Mello Briceño on 02-11-2024 Estimated GFR (MDRD) Non-Af Amer 85 mL/min >60 [facility] Comment on above: Non- GFR Calc Glucose Ql (U)Ordered By: Guille Briceño on 02-11-2024 Urine Glucose (UA) Normal mg/dl Normal [facility] Glucose measurementOrdered B y: Mello Briceño on 02-11-2024 Glucose [Mass/Vol] 133 mg/dL High 74-106 [facility] Comment on above: Fasting Glucose resu lt greater than or equal to 126 mg/dL suggests DIABETES MELLITUS per A.D.A. criteria. Hematocrit Auto (Bld) [Volum e fraction]Ordered By: Mello Briceño on 02-11-2024 Hematocrit (Bld) [Volume fraction] 45.0 % 40-54 [facility] Hemoglobin measurementOrdere d By: Mello Briceño on 02-11-2024 Hemoglobin (Bld) [Mass/Vol] 16.1 g/dL 13.0-16.5 [facility] Immature granulocytes/100 WB C Auto (Bld)Ordered By: Mello Briceño on 02-11-2024 Immature granulocytes/100 WBC (Bld) 0.500 % 0.0-0.9 [facility] Comment on above: IG% - Immature Granu locytes (promyelocytes, myelocytes and metamyelocytes) > 1% indicates that a LEFT SHIFT is Present. Ketones Test strip Ql (U)Ord ered By: Mello Briceño on 02-11-2024 Ketones Ql (U) 5 mg/dl High Negative [facility] Lymphocytes Auto (Unsp spec) [#/Vol]Ordered By: Mello Briceño on 02-11-2024 Lymphocytes (Bld) [#/Vol] 1.47 10*3/uL 0.83-4.51 [facility] Lymphocytes/100 WBC Auto (Un sp spec)Ordered By: Mello Briceño on 02-11-2024 Lymphocytes/100 WBC (Bld) 14.8 % Low 19-41 [facility] MCV (mean corpuscular volume ) determinationOrdered By: Mello Briceño on 02-11-2024 MCV (RBC) [Entitic vol] 95.7 fL High 80-94 [facility] Mean corpuscular hemoglobin (MCH) determinationOrdered By: Mello Briceño on 02-11-2024 MCH (RBC) [Entitic mass] 34.3 pg High 27.0-32.0 [facility] Mean corpuscular hemoglobin concentration (MCHC) determinationOrdered By: Mello Briceño on 02-11-2024 MCHC (RBC) [Mass/Vol] 35.8 g/dL 32-36 [facility] Mean platelet volume determi nationOrdered By: Mello Briceño on 02-11-2024 Platelet mean volume (Bld) [Entitic vol] 10.7 fL 6.2-12.0 [facility] Microscopic analysis of urin e for red blood cells (RBC)Ordered By: Mello Briceño on 02-11-2024 Urine RBC > 100 SEEN /hpf 0-5 [facility] Monocyte percentageOrdered B y: Mello Briceño on 02-11-2024 Monocytes/100 WBC (Bld) 7.3 % 0-10 [facility] Mucus LM Ql (Urine sed)Order ed By: Mello Briceño on 02-11-2024 Mucus Ql (Urine sed) 0 SEEN /hpf [facility] Neutrophil percentageOrdered By: Mello Briceño on 02-11-2024 Neutrophils/100 WBC (Bld) 75.4 % High 47-70 [facility] Nitrite Test strip Ql (U)Ord ered By: Mello Briceño on 02-11-2024 Nitrite Ql (U) Positive High Negative [facility] Nucleated red blood cell per centageOrdered By: Mello Briceño on 02-11-2024 Nucleated RBC/100 WBC (Bld) [Ratio] 0 % 0-5 [facility] Platelet countOrdered By: Guille Briceño on 02-11-2024 Platelets (Bld) [#/Vol] 350 10*3/uL 150-450 [facility] Potassium measurementOrdered By: Mello Briceño on 02-11-2024 Potassium [Moles/Vol] 3.6 mmol/L 3.5-5.1 [facility] Protein Test strip Ql (U)Ord ered By: Mello Briceño on 02-11-2024 Protein Ql (U) 100 mg/dl High Negative [facility] RBC Auto (Bld) [#/Vol]Ordere d By: Mello Briceño on 02-11-2024 RBC (Bld) [#/Vol] 4.70 10*6/uL 4.6-6.2 [facility] Serum anion gap measurementO rdered By: Mello Briceño on 02-11-2024 Anion gap [Moles/Vol] 6 mmol/L 5-15 [facility] Serum or plasma calcium heather urement (mass/volume)Ordered By: Mello Briceño on 02-11-2024 Calcium [Mass/Vol] 9.4 mg/dL 8.5-10.1 [facility] Serum or plasma creatinine m easurement (mass/volume)Ordered By: Mello Briceño on 02-11-2024 Creatinine [Mass/Vol] 0.90 mg/dL 0.70-1.30 [facility] Comment on above: The validity of the calculated GFR & GFRAA in patients over 70 years has not been determined. Clinical correlation is essential. Serum or plasma urea nitroge n measurement (mass/volume)Ordered By: Mello Briceño on 02-11-2024 Urea nitrogen [Mass/Vol] 23 mg/dL High 7-18 [facility] Sodium levelOrdered By: Mello Briceño on 02-11-2024 Sodium [Moles/Vol] 140 mmol/L 136-145 [facility] Urinalysis, Completeon 02-10 BACTERIA 2+ /hpf Normal None Seen [facility] Comment on above: Order Comment: CLEAN CATCH Performed By: #### L 100.0100 #### [facility] [address] [place], [address] CA OX CRYSTAL RARE Normal [facility] Comment on above: Order Comment: CLEAN CATCH Performed By: #### L 100.0100 #### [facility] [address] [place], [address] EPI,SQUAMOUS 0-5 SEEN Normal 0-5 [facility] Comment on above: Order Comment: CLEAN CATCH Performed By: #### L 100.0100 #### [facility] [address] [place], [address] RBC > 100 SEEN Normal 0-5 [facility] Comment on above: Order Comment: CLEAN CATCH Performed By: #### L 100.0100 #### [facility] [address] [place], [address] WBC 50-100 SEEN Normal 0-5 [facility] Comment on above: Order Comment: CLEAN CATCH Performed By: #### L 100.0100 #### [facility] [address] [place], [address] Mucus Ql (Urine sed) 0 SEEN Normal [facility] Comment on above: Order Comment: CLEAN CATCH Performed By: #### L 100.0100 #### [facility] [address] [place], [address] Urine blood detectionOrdered By: Mello Briceño on 02-11-2024 Urine Occult Blood 250 /ul High Negative [facility] Urine clarityOrdered By: Rajwinder Briceño on 02-11-2024 Clarity (U) Cloudy Clear [facility] Urine color determinationOrd ered By: Mello Briceño on 02-11-2024 Color (U) Yellow Yellow [facility] Urine cultureOrdered By: Rajwinder Briceño on 02-11-2024 Bacteria identified Cx Nom (U) Staphylococcus epidermidis Abnormal [facility] Urine leukocyte esterase det ection by dipstickOrdered By: Mello Briceño on 02-11-2024 Leukocyte esterase Test strip Ql (U) 500 /ul High Negative [facility] Urine pHOrdered By: Mello turner on 02-11-2024 pH (U) 6.0 [pH] 5.0 - 8.0 [facility] Urine sediment bacteria coun t by microscopy (number/high power field)Ordered By: Mello Briceño on 02-11-2024 Bacteria LM.HPF (Urine sed) [#/Area] 2 /[HPF] None Seen [facility] Urine specific gravity measu rementOrdered By: Mello Briceño on 02-11-2024 Specific gravity (U) [Rel density] 1.020 1.002-1.030 [facility] Urobilinogen Ql (U)Ordered B y: Mello Briceño on 02-11-2024 Urobilinogen (U) [Mass/Vol] 1 mg/dL High Normal [facility] White blood cell (WBC) count Ordered By: Mello Briceño on 02-11-2024 WBC (Bld) [#/Vol] 10.0 10*3/uL 4.4-11.0 [facility] White blood cell countOrdere d By: Mello Briceño on 02-11-2024 Urine WBC 50-100 SEEN /hpf 0-5 [facility] CNPNon 02-05-2024 CNPN Telephone (WAYNE) -- RAMONITA EL ([id number]) 1940 M R Date Time Provider Department 02/05/24 KARLA BARON During your visit today, we recorded the following information about you: Ashley Grant, ROBERT 02/05/2024 8:16 AM Signed [facility] for right shoulder pain. Pt [...] Reviewed: 02/01/2024 Reviewed by: Gus Sanchez APRN.HOTEL RESERVATIONIST - Fully Assessed Reason for Visit: Patient [...] Diagnosed: 10/10/2022 History of acute anterolateral wall OK [I25.2] 08/10/2006 Diagnosed: 10/10/2022 Vascular disorder of extremity (HCC) [I73.9] 10/10/2022 Diagnosed: 10/10/2022 Encounter Status:Closed by ASHLEY GRANT on 02/08/24 [facility] Ke 02-04-2024 CNPN Telephone (4CQ) -- RAMONITA EL ([id number]) 1940 M NFR Date Time Provider Department 02/04/24 KARLA BARON 4CQ During your visit today, we recorded the following information about you: Ashley Stoddard 02/04/2024 9:57 AM Addendum Patient was seen at [facility] ER on 01/29 cath was placed and advised for removal in 3-5 days. I did check with urology [facility] 02[facility]15[facility]24 at [facility]. Patient called Dr Johnson and there first opening was 02/17 and that is why he was calling us for a sooner appointment , patient upset PCP would not remove sooner and declined to arrange his ER follow up Karla Baron APRN.HOTEL RESERVATIONIST 02/04/2024 5:40 PM Signed That is fine, [...] Reviewed: 02/01/2024 Reviewed by: Gus Sanchez APRN.HOTEL RESERVATIONIST - Fully Assessed Reason for Visit: Patient [...] 10/10/2022 D (more content not included)... Normal [facility] CNOVon 02-01-2024 CNOV Office Visit (WSTR ) -- RAMONITA EL ([id number]) 1940 M NFR Date Time Provider Department 02/01/24 8:30 [facility] During your visit today, we recorded the following information about you: Temperature Pulse Respiration Blood pressure 97.9 degrees 86/minute 18/minute 107/82 Weight 73.5 kg Gus Sanchez APRN.HOTEL RESERVATIONIST 02/01/2024 9:41 AM Signed Subjective HPI Nontoxic-appearing [...] any other injuries. No numbness or tingling. Vnqmr-nlhd-oowmrlnn. No surgeries fractures previously. Past medical history prescription medications allergies reviewed. .Patient presents with: Pain (Shoulder Pain): R shoulder pain x1 day, pushed self out of chair and felt pop PAST MEDICAL HISTORY Diagnosis Date Acute myocardial infarction of anterolateral wall, episode of care unspecified 08/10/06 STENT placed [facility] Alcohol abuse 05/22/2013 Chronic anxiety 10/22/2017 [...] gesture Radius fracture 06/21/2013 See scanned documents [facility] Tobacco abuse 05/22/2013 Urinary calculus, unspecified [...] is not (more content not included)... Normal [facility] XR SHLDR >/=3V AP/LUPE AP/OTH R [...] in the right shoulder as described above. Instructor Looping: JUANCARLOS Transcribe Date/Time: Feb 01 2024 9:10A Dictated by : ELLIE JOSEPH MD This examination was interpreted and the report reviewed and electronically signed by: ELLIE JOSEPH MD on Feb 01 2024 9:14AM EST [id number] Normal [facility] XR Shoulder - right 3 Viewso n 02-01-2024 IMPRESSION: Degenera tive changes in the right shoulder as described above. Instructor Looping: JUANCARLOS Transcribe Date/Time: Feb 01 2024 9:10A [...] soft tissue swelling. DIVISION OF RADIOLOGY Provider, [facility] - 02/01/2024 * * *Final Report* [...] in the right shoulder as described above. Instructor Looping: JUANCARLOS Transcribe Date/Time: Feb 01 2024 9:10A Dictated by : ELLIE JOSEPH MD This examination was interpreted and the report reviewed and electronically signed by: ELLIE JOSEPH MD on Feb 01 2024 9:14AM EST [facility] Radiology Study observation (narrative) [facility] XR Shoulder - right 3 ViewsO rdered By: [facility] Provider on 02-01-2024 [facility] Absolute neutrophil countOrd ered By: Lindy Blanco on 01-30-2024 Neutrophils (Bld) [#/Vol] 9.6 10*3/uL High 2.0-7.7 [facility] Basic Metabolic Profile (BMP )on 01-30-2024 BUN/CRE 18.3 RATIO Normal 10-20 [facility] Comment on above: Performed By: #### L 9100.0100 #### [facility] [address] [place], [address] CA,Total 9.0 mg/dL Normal 8.5-10.1 [facility] Comment on above: Performed By: #### L 9100.0100 #### [facility] [address] [place], [address] Chloride [Moles/Vol] 102 mmol/L Normal 98-107 [facility] Comment on above: Performed By: #### L 9100.0100 #### [facility] [address] [place], [address] CO2 [Moles/Vol] 25.0 mmol/L Normal 21.0-32.0 [facility] Comment on above: Performed By: #### L 9100.0100 #### [facility] [address] [place], [address] Creatinine [Mass/Vol] 0.98 mg/dL Normal 0.70-1.30 [facility] Comment on above: Result Comment: The validity of the calculated GFR GFRAA in patients over 70 years has not been determined. Clinical correlation is essential. Performed By: #### L 9100.0100 #### [facility] [address] [place], [address] ECRCL 56.22 ml/min Normal [facility] Comment on above: Performed By: #### L 9100.0100 #### [facility] [address] [place], [address] EST GFR - AA 94 mL/min Normal >60 [facility] Comment on above: Result Comment: Afri can Belgian GFR Calc Performed By: #### L 00.0100 #### [facility] [address] [place], [address] GAP 6 Normal 5-15 [facility] Comment on above: Performed By: #### L 9100.0100 #### [facility] [address] [place], [address] GFR/1.73 sq M.predicted among non-blacks MDRD (S/P/Bld) [Vol rate/Area] 78 mL/min/{1.73_m2} Normal >60 [facility] Comment on above: Result Comment: Non- GFR Calc Performed By: #### L 9100.0100 #### [facility] [address], [address] Glucose [Mass/Vol] 141 mg/dL High 74-106 [facility] Comment on above: Result Comment: Fast ing Glucose result greater than or equal to 126 mg/dL suggests DIABETES MELLITUS per A.D.A. criteria. Performed By: #### L 9100.0100 #### [facility] [address] [place], [address] Potassium [Moles/Vol] 4.7 mmol/L Normal 3.5-5.1 [facility] Comment on above: Performed By: #### L 9100.0100 #### [facility] [address] [place], [address] Sodium [Moles/Vol] 133 mmol/L Low 136-145 [facility] Comment on above: Performed By: #### L 9100.0100 #### [facility] [address] [place], [address] Urea nitrogen [Mass/Vol] 18 mg/dL Normal 7-18 [facility] Comment on above: Performed By: #### L 9100.0100 #### [facility] [address] [place], [address] Basophil percentageOrdered B y: Remus Ungur on 01-30-2024 Basophils/100 WBC (Bld) 0.5 % 0-1 [facility] Bilirubin Test strip Ql (U)O rdered By: Remus Ungur on 01-30-2024 Bilirubin Ql (U) Negative Negative [facility] Blood urea nitrogen (BUN)/cr eatinine ratioOrdered By: Remus Ungur on 01-30-2024 Urea nitrogen/Creatinine [Mass ratio] 18.3 mg/mg 10- [facility] CBC W/Diff, Automatedon 12- Absolute Lymph 1.06 X10 3/uL Normal 0.83-4.51 [facility] Comment on above: Performed By: #### L 100.0100 #### [facility] [address] [place], [address] Absolute Neut 9.6 X10 3/uL High 2.0-7.7 [facility] Comment on above: Performed By: #### L 100.0100 #### [facility] [address] [place], [address] Basophils/100 WBC (Bld) 0.5 % Normal 0-1 [facility] Comment on above: Performed By: #### L 100.0100 #### [facility] [address] [place], [address] Eosinophils/100 WBC (Bld) 0.2 % Normal 0-5 [facility] Comment on above: Performed By: #### L 100.0100 #### [facility] [address] [place], [address] Erythrocyte distribution width (RBC) [Ratio] 13.1 % Normal 11.6-14.6 [facility] Comment on above: Performed By: #### L 100.0100 #### [facility] [address] [place], [address] Hematocrit (Bld) [Volume fraction] 45.2 % Normal 40-54 [facility] Comment on above: Performed By: #### L 100.0100 #### [facility] [address] [place], [address] Hemoglobin (Bld) [Mass/Vol] 15.9 g/dL Normal 13.0-16.5 [facility] Comment on above: Performed By: #### L 100.0100 #### [facility] [address] [place], [address] IG% 0.400 Normal 0.0-0.9 [facility] Comment on above: Result Comment: IG% - Immature Granulocytes (promyelocytes, myelocytes and metamyelocytes) > 1% indicates that a LEFT SHIFT is Present. Performed By: #### L 100.0100 #### [facility] [address] [place], [address] Lymphocytes/100 WBC (Bld) 9.3 % Low 19-41 [facility] Comment on above: Performed By: #### L 100.0100 #### [facility] [address] [place], [address] MCH (RBC) [Entitic mass] 31.2 pg Normal 27.0-32.0 [facility] Comment on above: Performed By: #### L 100.0100 #### [facility] [address] [place], [address] MCHC (RBC) [Mass/Vol] 35.2 g/dL Normal 32-36 [facility] Comment on above: Performed By: #### L 100.0100 #### [facility] [address] [place], [address] MCV (RBC) [Entitic vol] 88.6 fL Normal 80-94 [facility] Comment on above: Performed By: #### L 100.0100 #### [facility] [address] [place], [address] Monocytes/100 WBC (Bld) 5.3 % Normal 0-10 [facility] Comment on above: Performed By: #### L 100.0100 #### [facility] [address] [place], [address] Neutrophils/100 WBC (Bld) 84.3 % High 47-70 [facility] Comment on above: Performed By: #### L 100.0100 #### [facility] [address] [place], [address] Nucleated RBC (Bld) [#/Vol] 0 10*3/uL Normal 0-5 [facility] Comment on above: Performed By: #### L 100.0100 #### [facility] [address] [place], [address] Platelet mean volume (Bld) [Entitic vol] 10.5 fL Normal 6.2-12.0 [facility] Comment on above: Performed By: #### L 100.0100 #### [facility] [address] [place], [address] Platelets (Bld) [#/Vol] 274 10*3/uL Normal 150-450 [facility] Comment on above: Performed By: #### L 100.0100 #### [facility] [address] [place], [address] RBC (Bld) [#/Vol] 5.10 10*6/uL Normal 4.6-6.2 [facility] Comment on above: Performed By: #### L 100.0100 #### [facility] [address] [place], [address] RDW SD 42.7 fl Normal 35.1-43.9 [facility] Comment on above: Performed By: #### L 100.0100 #### [facility] [address] [place], [address] WBC (Bld) [#/Vol] 11.4 10*3/uL High 4.4-11.0 [facility] Comment on above: Performed By: #### L 100.0100 #### [facility] [address] [place], [address] Carbon dioxide measurementOr dered By: Lindy Blanco on 01-30-2024 CO2 [Moles/Vol] 25.0 mmol/L 21.0-32.0 [facility] Chloride measurementOrdered By: Lindy Blanco on 01-30-2024 Chloride [Moles/Vol] 102 mmol/L 98-107 [facility] Emergency Department Summary on 01-30-2024 Emergency Department Summary [facility] Medical Records Department [address] [place] [address] Emergency Department Summary 01/30/24 MR#: [id number] Acct: [id number] Name: RAMONITA EL Rep #: [id number] : 1940 83 From: Lindy Blanco DO [...] of a cardiac stent. Patient on Flomax. [facility] Medical History Alcohol use Prostate disease Easy [...] 2+ throughout (more content not included)... Normal [facility] Eosinophil percentageOrdered By: Lindy Blanco on 01-30-2024 Eosinophils/100 WBC (Bld) 0.2 % 0-5 [facility] Epithelial cells.squamous LM Ql (Urine sed)Ordered By: Lindy Blanco on 01-30-2024 Epithelial cells.squamous LM.HPF (Urine sed) [#/Area] 0 /[HPF] 0-5 [facility] Erythrocyte distribution wid th (RBC) [Ratio]Ordered By: Zuleykaus Bella on 01-30-2024 Erythrocyte distribution width (RBC) [Entitic vol] 42.7 fL 35.1-43.9 [facility] Erythrocyte distribution wid th ratioOrdered By: Lindy Blanco on 01-30-2024 Erythrocyte distribution width (RBC) [Ratio] 13.1 % 11.6-14.6 [facility] Estimated glomerular filtrat ion rate (GFR) AmericanOrdered By: Lindy Blanco on 01-30-2024 Estimated GFR (MDRD) Amer 94 mL/min >60 [facility] Comment on above: GFR Calc Estimation of creatinine john aranceOrdered By: Lindy lBanco on 01-30-2024 Estimated Creatinine Clearance Calc 56.22 ml/min [facility] Glomerular filtration rate ( GFR) estimationOrdered By: Lindy Blanco on 01-30-2024 Estimated GFR (MDRD) Non-Af Amer 78 mL/min >60 [facility] Comment on above: Non- GFR Calc Glucose Ql (U)Ordered By: Krystyna Blanco on 01-30-2024 Urine Glucose (UA) Normal mg/dl Normal [facility] Glucose measurementOrdered B y: Lindy Blanco on 01-30-2024 Glucose [Mass/Vol] 141 mg/dL High 74-106 [facility] Comment on above: Fasting Glucose resu lt greater than or equal to 126 mg/dL suggests DIABETES MELLITUS per A.D.A. criteria. Hematocrit Auto (Bld) [Volum e fraction]Ordered By: Lindy Blanco on 01-30-2024 Hematocrit (Bld) [Volume fraction] 45.2 % 40-54 [facility] Hemoglobin measurementOrdere d By: Lindy Blanco on 01-30-2024 Hemoglobin (Bld) [Mass/Vol] 15.9 g/dL 13.0-16.5 [facility] Immature granulocytes/100 WB C Auto (Bld)Ordered By: Lindy Blanco on 01-30-2024 Immature granulocytes/100 WBC (Bld) 0.400 % 0.0-0.9 [facility] Comment on above: IG% - Immature Granu locytes (promyelocytes, myelocytes and metamyelocytes) > 1% indicates that a LEFT SHIFT is Present. Ketones Test strip Ql (U)Ord ered By: Lindy Blanco on 01-30-2024 Ketones Ql (U) Negative Negative [facility] Lymphocytes Auto (Unsp spec) [#/Vol]Ordered By: Lindy Blanco on 01-30-2024 Lymphocytes (Bld) [#/Vol] 1.06 10*3/uL 0.83-4.51 [facility] Lymphocytes/100 WBC Auto (Un sp spec)Ordered By: Lindy Blanco on 01-30-2024 Lymphocytes/100 WBC (Bld) 9.3 % Low 19-41 [facility] MCV (mean corpuscular volume ) determinationOrdered By: Lindy Blanco on 01-30-2024 MCV (RBC) [Entitic vol] 88.6 fL 80-94 [facility] Mean corpuscular hemoglobin (MCH) determinationOrdered By: Lindy Blanco on 01-30-2024 MCH (RBC) [Entitic mass] 31.2 pg 27.0-32.0 [facility] Mean corpuscular hemoglobin concentration (MCHC) determinationOrdered By: Lindy Blanco on 01-30-2024 MCHC (RBC) [Mass/Vol] 35.2 g/dL 32-36 [facility] Mean platelet volume determi nationOrdered By: Lindy Blanco on 01-30-2024 Platelet mean volume (Bld) [Entitic vol] 10.5 fL 6.2-12.0 [facility] Microscopic analysis of urin e for red blood cells (RBC)Ordered By: Lindy Blanco on 01-30-2024 Urine RBC 0 SEEN /hpf 0-5 [facility] Monocyte percentageOrdered B y: Lindy Blanco on 01-30-2024 Monocytes/100 WBC (Bld) 5.3 % 0-10 [facility] Mucus LM Ql (Urine sed)Order ed By: Lindy Blanco on 01-30-2024 Mucus Ql (Urine sed) 0 SEEN /hpf [facility] Neutrophil percentageOrdered By: Lindy Blanco on 01-30-2024 Neutrophils/100 WBC (Bld) 84.3 % High 47-70 [facility] Nitrite Test strip Ql (U)Ord ered By: Lindy Blanco on 01-30-2024 Nitrite Ql (U) Negative Negative [facility] Nucleated red blood cell per centageOrdered By: Lindy Blanco on 01-30-2024 Nucleated RBC/100 WBC (Bld) [Ratio] 0 % 0-5 [facility] Platelet countOrdered By: Krystyna Blanco on 01-30-2024 Platelets (Bld) [#/Vol] 274 10*3/uL 150-450 [facility] Potassium measurementOrdered By: Lindy Blanco on 01-30-2024 Potassium [Moles/Vol] 4.7 mmol/L 3.5-5.1 [facility] Protein Test strip Ql (U)Ord ered By: Lindy Blanco on 01-30-2024 Protein Ql (U) Negative Negative [facility] RBC Auto (Bld) [#/Vol]Ordere d By: Lindy Blanco on 01-30-2024 RBC (Bld) [#/Vol] 5.10 10*6/uL 4.6-6.2 [facility] Serum anion gap measurementO rdered By: Lindy Blanco on 01-30-2024 Anion gap [Moles/Vol] 6 mmol/L 5-15 [facility] Serum or plasma calcium heather urement (mass/volume)Ordered By: Lindy Bella on 01-30-2024 Calcium [Mass/Vol] 9.0 mg/dL 8.5-10.1 [facility] Serum or plasma creatinine m easurement (mass/volume)Ordered By: Lindy Dubonjimi on 01-30-2024 Creatinine [Mass/Vol] 0.98 mg/dL 0.70-1.30 [facility] Comment on above: The validity of the calculated GFR & GFRAA in patients over 70 years has not been determined. Clinical correlation is essential. Serum or plasma urea nitroge n measurement (mass/volume)Ordered By: Lindy Bella on 01-30-2024 Urea nitrogen [Mass/Vol] 18 mg/dL 7-18 [facility] Sodium levelOrdered By: Zuleykakourtney debbie Bella on 01-30-2024 Sodium [Moles/Vol] 133 mmol/L Low 136-145 [facility] Urinalysis, Completeon 01-29 BACTERIA 0 SEEN Normal None Seen [facility] Comment on above: Order Comment: BHARATH TER SPECIMEN Performed By: #### L 9100.0100 #### [facility] [address] [place], [place], [id number] EPI,SQUAMOUS 0 SEEN Normal 0-5 [facility] Comment on above: Order Comment: BHARATH TER SPECIMEN Performed By: #### L 9100.0100 #### [facility] [address] [place], [address] Mucus Ql (Urine sed) 0 SEEN Normal [facility] Comment on above: Order Comment: BHARATH TER SPECIMEN Performed By: #### L 9100.0100 #### [facility] [address] [place], [address] RBC 0 SEEN Normal 0-5 [facility] Comment on above: Order Comment: BHARATH TER SPECIMEN Performed By: #### L 9100.0100 #### [facility] [address] [place], [address] WBC 0 SEEN Normal 0-5 [facility] Comment on above: Order Comment: BHARATH TER SPECIMEN Performed By: #### L 9100.0100 #### [facility] [address] [place], [address] Urine blood detectionOrdered By: Remus Blanco on 01-30-2024 Urine Occult Blood Negative Negative [facility] Urine clarityOrdered By: Rem us Bella on 01-30-2024 Clarity (U) Clear Clear [facility] Urine color determinationOrd ered By: Lindy Blanco on 01-30-2024 Color (U) Yellow Yellow [facility] Urine leukocyte esterase det ection by dipstickOrdered By: Lindy Blanco on 01-30-2024 Leukocyte esterase Test strip Ql (U) Negative Negative [facility] Urine pHOrdered By: Remus Un gur on 01-30-2024 pH (U) 6.0 [pH] 5.0 - 8.0 [facility] Urine sediment bacteria coun t by microscopy (number/high power field)Ordered By: Lindy Blanco on 01-30-2024 Bacteria LM.HPF (Urine sed) [#/Area] 0 /[HPF] None Seen [facility] Urine specific gravity measu rementOrdered By: Lindy Blanco on 12-25-2024 Specific gravity (U) [Rel density] 1.015 1.002-1.030 [facility] Urobilinogen Ql (U)Ordered B y: Lindy Blanco on 01-30-2024 Urine Urobilinogen Normal mg/dl Normal [facility] White blood cell (WBC) count Ordered By: Lindy Blanco on 01-30-2024 WBC (Bld) [#/Vol] 11.4 10*3/uL High 4.4-11.0 [facility] White blood cell countOrdere d By: Lindy Blanco on 01-30-2024 Urine WBC 0 SEEN /hpf 0-5 [facility] CNOVon 01-21-2024 CNOV Office Visit (FAMPWS ) -- RAMONITA EL ([id number]) 1940 M NFR Date Time Provider Department 01/21/24 1:00 PM DAVE MCCRAY During your visit today, we recorded the following information about you: Pulse Respiration Blood pressure Weight 69/minute 16/minute 162/71 73.5 kg Dave Mccray APRN.HOTEL RESERVATIONIST 01/21/2024 1:33 PM Signed Chief Complaint Patient presents with: ER F/U HPI Ramonita Marel is a 83 year old male who presents here today for ER Follow Up. Patient here for emergency room follow-up. Patient went to [facility] on 01/15 for complaints of bleeding. [...] HCL 25 MG TABLET Dave Mccray APRN.HOTEL RESERVATIONIST RTO in 1 months, sooner if needed. This note was partly generated using [employer] voice recognition dictation and may contain some [...] for anxiet (more content not included)... Normal [facility] Emergency Department Summary on 01-16-2024 Emergency Department Summary [facility] Medical Records Department [address] [place] [address] Emergency Department Summary 01/16/24 MR#: [id number] Acct: [id number] Name: SIENNARAMONITA Rep #: [id number] : 1940 83 From: Toribio Yeh DO [...] he looked down there was blood present [facility] Medical History Alcohol use Prostate disease Easy [...] He reported (more content not included)... Normal [facility] CNOVon 01-02-2024 CNOV Office Visit (GENSWS ) -- RAMONITA EL ([id number]) 1940 M [facility] Date Time Provider Department 01/02/24 11:00 AM TOMEKA MCLAUGHLIN [facility] During your visit today, we recorded the following information about you: Pulse Blood pressure Weight 65/minute 170/73 72.5 kg Tomeka Mclaughlin APRN.[facility] 01/02/2024 11:02 AM Signed FOLLOW UP VISIT - ENDOSCOPY Ramonita El 1940 [id number] REFERRING PHYSICIAN: Star Grande [address] [facility] [address] Ramonita El is a patient I am [...] for worsening/no improvement. _ Tomeka Mclaughlin APRN.HOTEL RESERVATIONIST Referring Provider: STAR GRANDE [[id number]] Allergies As of Date: 01/02/2024 Noted Allergy [...] Sinus con (more content not included)... Normal [facility] [id number] 12-26-2023 [id number] HNO ID: [id number] Author: DARCY BENNETT RN Service: ? Author Type: Registered Nurse Type: [id number] Filed: 12/26/2023 12:54 Note Text: The patient received a copy of Colonoscopy discharge instructions that contain information for how to contact the physician who performed the procedure and when to seek medical care. Normal [facility] Colonoscopyon 12-26-2023 Colonoscopy [place] [facility] Gastrointestinal Endoscopy Patient Name: Ramonita [...] patient. Proce (more content not included)... Normal [facility]GD Study [facility] Name: Ramonita El [...] 1 week. Procedure Code(s): --- Professional --- 10338, Esophagogastroduodenoscopy , flexible, transoral; with biopsy, single or multiple G0500, Moderate sedation services provided by the (more content not included)... [facility] Flexible sigmoidoscopy study on 12-26-2023 [facility] Gastrointestinal Endoscopy Patient Name: Ramonita El Procedure [...] of t (more content not included)... [facility] HISTORY PHYSICALon HISTORY PHYSICAL HNO ID: [id number] Author: STAR GRANDE MD Service: General Surgery Author Type: Physician Type: H&P Filed: 12/26/2023 10:36 Note Text: HISTORY AND PHYSICAL Ramonita El : 1940 REFERRING PHYSICIAN: Danae Fuentes [address] [facility] [address] CHIEF COMPLAINT: No chief complaint on file. [...] endoscopy. Last colonoscopy AND EGD 06/2015 at [facility] with Dr. Lezama. Sedation: Fentanyl 50 micrograms [...] Descending colon, biopsy (D) - Tubular adenoma. [facility]/chelsie/06/22/15 CURRENT MEDICATIONS Current Outpatient Medications Medication [...] episode of care unspecified 08/10/06 STENT placed [facility] Alcohol abuse 05/22/2013 Chronic anxiety 10/22/2017 [...] gesture Radius fracture 06/21/2013 See scanned documents [facility] Tobacco abuse 05/22/2013 Urinary calculus, unspecified [...] W/POSTOP SE (more content not included)... Normal [facility] NURSING PROGon 12-26-2023 NURSING PROG HNO ID: [id number] Author: DARCY BENNETT RN Service: ? Author [...] on left side. No family present. Normal [facility] No Panel Informationon 12-25 Radiology Study observation (narrative) [facility] SURGICAL PATHOLOGYon 024 CASE REPORT Normal [facility] Comment on above: Order Comment: Jh del cid Type: BLOOD SPECIMEN Ordering Facility: [facility] Address: [address] [place] [address] Result Comment: Surg ica Pathology Report Case: [id number] Authorizing Provider: Star Grande MD Collected: 12/26/2023 11:55 AM Ordering Location: Ambulatory Surgery Received: 12/26/2023 02:50 PM Pathologist: Brandon Solis MD Specimens: A) - Small Bowel, Duodenum, Biopsy B) - Stomach, Antrum, Biopsy, Antral for H/H C) - Colon, Cecum, Polyp D) - Colon, Ascending Polyp, polyps x2 E) - Colon, Sigmoid, Polyp Performed By: #### P SAS1 #### [facility] CLIA [id number] [address] [place] [address] [place] FINAL DIAGNOSIS Normal [facility] Comment on above: Order Comment: Jh del cid Type: BLOOD SPECIMEN Ordering Facility: [facility] Address: [address] [place] [address] Result Comment: A. D uodenum, biopsy: - Duodenal mucosa with no significant pathologic changes. B. Stomach, biopsy: - Antral mucosa with minimal chronic inflammation. - No evidence of H. pylori. C. Cecum, polypectomy: - Tubular adenoma. D. Ascending colon, polypectomy: - Fragments of tubular adenoma. E. Sigmoid, polypectomy: - Tubular adenoma. Performed By: #### P SAS1 #### [facility] CLIA [id number] [address] [place] [address] [place] FINAL PERFORMING LAB Normal [facility] Comment on above: Order Comment: Speci men Type: BLOOD SPECIMEN Ordering Facility: [facility] Address: [address] [place] [address] Result Comment: Diag nostic interpretation performed at [facility], [address], [place] [address] CLIA# [id number] [facility] Laboratory Worker: Ca Barber M.D. Performed By: #### P SAS1 #### [facility] CLIA [id number] [address] [place] [id number] [place] GROSS DESCRIPTION Normal [facility] Comment on above: Order Comment: Speci men Type: BLOOD SPECIMEN Ordering Facility: [facility] Address: [address] [place] [address] Result Comment: A. S mall Bowel, Duodenum, [...] 2023 9:23 PM Gross examination performed at [facility], [address] [place] [address] E. Colon, Sigmoid, Polyp Received in formalin is one segment of red-brown polypoid tissue measuring 1.3 x 0.7 x 0.6 cm. No stalk is present. The line of resection is noted. The specimen is bisected and totally submitted in one cassette. Gross examination performed at [facility], [address] [place] [address] December 26, 2023 9:19 PM Performed By: #### P SAS1 #### [facility] CLIA [id number] [address] [place] [address] [place] Upper GI endoscopy --2 024 Upper GI endoscopy [facility] Gastrointestinal Endoscopy Patient Name: Ramonita El Procedure [...] 1 week. Procedure Code(s): --- Professional --- 67576, Esophagogastroduodenoscopy , flexible, transoral; with biopsy, single or multiple G0500, Moderate sedation services provided by the same physician or other qualified health prompt care rn performing a gastrointestinal endoscopic service that sedation supports, requiring the presence of an independent trained observer to assist in the monitoring of the patient's level of consciousness and physiological status; initial 15 minutes of intra-service time; patient age 5 years or older (additional time may be reported with 47660, as appropriate) [address]654, Moderate sedation; each additional 15 minutes intraservice time CPT copyright 202 [employer]. All rights reserved. The codes documented in this report are preliminary and upon accuracy expert review may be revised to meet current [...] Blood Loss: Estimated blood loss: none. Normal [facility] CNOVon 12-06-2023 CNOV Office Visit (GENSWS ) -- RAMONITA EL ([id number]) 1940 M NFR Date Time Provider Department 12/06/23 1:30 PM TOMEKA MCLAUGHLIN During your visit today, we recorded the following information about you: Temperature Pulse Blood pressure Weight 97.1 degrees 69/minute 152/63 74.2 kg Height 1.702 m Tomeka Mclaughlin APRN.HOTEL RESERVATIONIST 12/06/2023 2:19 PM Signed HISTORY AND PHYSICAL Ramonita El : 1940 REFERRING PHYSICIAN: Danae Fuentes [address] [facility] [address] CHIEF COMPLAINT: No chief complaint on file. [...] endoscopy. Last colonoscopy AND EGD 06/2015 at [facility] with Dr. Lezama. Sedation: Fentanyl 50 micrograms [...] Descending colon, biopsy (D) - Tubular adenoma. [facility]/chelsie/06/22/15 Current Outpatient Medications Medication Sig metoprolol [...] episode of care unspecified 08/10/06 STENT placed [facility] Alcohol abuse 05/22/2013 Chronic anxiety 10/22/2017 [...] gesture Radius fracture 06/21/2013 See scanned documents [facility] Tobacco abuse 05/22/2013 Urinary calculus, unspecified [...] fragment PA (more content not included)... Normal [facility] CNPNon 12-06-2023 CNPN Telephone (GENSWS) -- RAMONITA EL ([id number]) 1940 M NFR Date Time Provider Department [...] Reviewed: 12/06/2023 Reviewed by: Tomeka Mclaughlin APRN.HOTEL RESERVATIONIST - Fully Assessed Reason for Visit: Outpatient [...] Diagnosed: 10/10/2022 History of acute anterolateral wall OK [I25.2] 08/10/2006 Diagnosed: 10/10/2022 Vascular disorder of extremity (HCC) [I73.9] 10/10/2022 Diagnosed: 10/10/2022 Encounter Status:Closed by HEAVENLY PEREZ on 05/06/24 [facility] -- RAMONITA EL ([id number]) 1940 NF Date Time Provider Department 12/03/23 Ida [facility] During your visit today, we recorded the following information about you: Nadine Serrano MA 12/03/2023 4:03 PM Signed ----- Message from Danae Fuentes sent at 12/03/2023 3:24 PM EDT ----- Please let pt. Know that colon screen was positive for blood. Will need a colonoscopy. Nadine Serrano MA 12/03/2023 4:05 PM Signed Pt notified. Transferred to [facility] to set up appt Nadine Serrano MA [...] Diagnosed: 10/10/2022 History of acute anterolateral wall OK [I25.2] 08/10/2006 Diagnosed: 10/10/2022 Vascular disorder of extremity (HCC) [I73.9] 10/10/2022 Diagnosed: 10/10/2022 Encounter Status:Closed by NADINE SERRANO on 12/03/23 [facility] SIENNARAMONITA WHITESIDE ([id number]) 1940 M NFR Date Time Provider Department 12/03/23 Ida HATFIELD During your visit today, we recorded the following information about you: Ravi RinconElsa 12/03/2023 4:27 PM Signed Ramonita is calling Ida Hatfield PA-C today to report a Rectal Problem (Blood in stool) and FYI-No Action Needed Patient states that he has an appointment with a colon doctor on Sunday12-05-23 Patient has been identified by name and birthdate. Duration of symptoms: N/A Person calling: self Call patient at: at home [phone] (home) Was an appointment scheduled: No Closing [...] Diagnosed: 10/10/2022 History of acute anterolateral wall OK [I25.2] 08/10/2006 Diagnosed: 10/10/2022 Vascular disorder of extremity (HCC) [I73.9] 10/10/2022 Diagnosed: 10/10/2022 Encounter Status:Closed by AAMIR MEADE [facility]03[facility] RAMON[facility] EL ([id number]) 1940 Ida NFR Date Time Provider Department 12/03/23 [facility] During your visit today, we recorded the following information about you: Elsa George 12/03/2023 4:25 PM Wade Duran is calling Ida Hatfield PA-C today with concern regarding Medication Problem for the tizanidine. Patient reports that the tizanidine is not working. Patient has been identified by name and birthdate. Duration of symptoms: N/A Person calling: self Call patient at: at home [phone] (home) Was an appointment scheduled: No Closing statement: Aamir Cook MD 12/03/2023 5:00 PM Addendum He was using It more for insomnia if I am reading note correctly. Would come in to see one of us to discuss. See other te. If rectal bleeding is new or severe, or abd pain etc, let us know Soyna Guerra LPN 12/05/2023 12:00 PM Signed Left [...] left [D3 (more content not included)... Normal [facility] XR Chest PA and Lateralon IMPRESSION: Bibasilar atelectasis/scarring. Instructor Looping: JUANCARLOS Transcribe Date/Time: Feb 02 2023 8:43A Dictated by : ELLIE JOSEPH MD This examination was interpreted and the report reviewed and electronically signed by: ELLIE JOSEPH MD on Feb 02 2023 8:45AM [facility] DIVISION OF RADIOLOGY * * *Final [...] changes. DIVISION OF RADIOLOGY Provider, Suyapa Betina [facility] - 02/02/2023 * * *Final Report* [...] shows degenerative changes. IMPRESSION IMPRESSION: Bibasilar atelectasis/scarring. Instructor Looping: JUANCARLOS Transcribe Date/Time: Feb 02 2023 8:43A Dictated by : ELLIE JOSEPH MD This examination was interpreted and the report reviewed and electronically signed by: ELLIE JOSEPH MD on Feb 02 2023 8:45AM EST [facility] Radiology Study observation (narrative) [facility] XR Chest PA and LateralOrder ed By: Ccf Provider on 02-02-2023 [facility] XR Lumbar spine 3 Viewson IMPRESSION: DEGENERATIVE CHANGE AND ALIGNMENT ABNORMALITIES DESCRIBED Instructor Looping: JUANCARLOS Transcribe Date/Time: Oct 11 2022 2:10P Dictated by : STACY MELLO MD This examination was interpreted and the report reviewed and electronically signed by: STACY MELLO MD on Oct 11 2022 2:13PM [facility] DIVISION OF RADIOLOGY * * *Final [...] focal bony abnormality DIVISION OF RADIOLOGY Provider, [facility] - 10/11/2022 * * *Final Report* [...] IMPRESSION: DEGENERATIVE CHANGE AND ALIGNMENT ABNORMALITIES DESCRIBED Instructor Looping: PSCAlysia Transcribe Date/Time: Oct 11 2022 2:10P Dictated by : STACY MELLO MD This examination was interpreted and the report reviewed and electronically signed by: STACY MELLO MD on Oct 11 2022 2:13PM EST [facility] XR Lumbar spine 3 ViewsOrder ed By: Ccf Provider on 10-11-2022 [facility] XR Lumbar spine 3 Viewson Radiology Study observation (narrative) [facility] Basophil percentageOrdered B y: Willis Mera on 09-08-2022 Basophil percentage < 0.9 mg/dL 0.70-1.30 [facility] No Panel InformationOrdered By: Willis Mera on 09-08-2022 Bedside Estimated GFR (eGFR) > 60.0000 mL/min >60 [facility] STREP A MOLECULAR (POC)on Procedural Control Valid [facility] Strep A (POCT) Negative Negative [facility] No Panel Informationon 01-01 Ethyl Alcohol Level < 3.0 mg/dL [facility] Work Phone: Comment on above: The serum:whole bloo d ethanol ratio is approximately 1.14and varies slightly with hematocrit. Medical Alcohol reference interval and critical value innon-tolerant individuals; 50 - 100 Impairment 100 Intoxication 100 - 250 Severe Poisoning 250 - 400 Deep/possible fatal coma Absolute lymphocyte counton 12-31-2021 Lymphocytes Auto (Unsp spec) [#/Vol] 0.95 10*3/uL 0.83-4.51 [facility] Work Phone: Basophil percentageon 2021 Basophils/100 WBC (Bld) 0.5 % 0-1 [facility] Work Phone: Bilirubin [Mass/Vol] 0.40 mg/dL 0.20-1.00 [facility] Work Phone: Comment on above: For patients on eltr ombopag therapy, use of Dimension Evart TBIL is not recommended. Chloride [Moles/Vol] 107 mmol/L 98-107 [facility] Work Phone: [phone] Eosinophils/100 WBC (Bld) 0.3 % 0-5 [facility] Work Phone: Glucose [Mass/Vol] 150 mg/dL 74-106 [facility] Work Phone: Comment on above: Fasting Glucose resu lt greater than or equal to 126 mg/dL suggests DIABETES MELLITUS per A.D.A. criteria. Neutrophils (Bld) [#/Vol] 11.6 10*3/uL 2.0-7.7 [facility] Work Phone: Neutrophils/100 WBC (Bld) 87.9 % 47-70 [facility] Work Phone: Potassium [Moles/Vol] 3.6 mmol/L 3.5-5.1 [facility] Work Phone: Protein [Mass/Vol] 6.7 g/dL 6.4-8.2 [facility] Work Phone: Sodium [Moles/Vol] 141 mmol/L 136-145 [facility] Work Phone: [phone] WBC (Bld) [#/Vol] 13.2 10*3/uL 4.4-11.0 [facility] Work Phone: [phone] Blood erythrocytes count (nu mber/volume)on 12-31-2021 RBC (Bld) [#/Vol] 4.96 10*6/uL 4.6-6.2 [facility] Work Phone: Blood hemoglobin measurement (mass/volume)on 12-31-2021 Hemoglobin (Bld) [Mass/Vol] 16.7 g/dL 13.0-16.5 [facility] Work Phone: Blood lymphocytes/100 leukoc yteson 12-31-2021 Lymphocytes/100 WBC (Bld) 7.2 % 19-41 [facility] Work Phone: Blood monocytes/100 leukocyt eson 12-31-2021 Monocytes/100 WBC (Bld) 3.7 % 0-10 [facility] Work Phone: Blood platelet mean volumeon 12-31-2021 Platelet mean volume (Bld) [Entitic vol] 10.9 fL 6.2-12.0 [facility] Work Phone: Determination of erythrocyte mean corpuscular volume (MCV)on 12-31-2021 MCV (RBC) [Entitic vol] 91.5 fL 80-94 [facility] Work Phone: Hematocrit Auto (Bld) [Volum e fraction]on 12-31-2021 Hematocrit (Bld) [Volume fraction] 45.4 % 40-54 [facility] Work Phone: Laboratory - Chemistry and C hemistry - challengeon 12-31-2021 ALP [Catalytic activity/Vol] 85 U/L 45-117 [facility] Work Phone: ALT [Catalytic activity/Vol] 27 U/L 16-61 [facility] Work Phone: CO2 [Moles/Vol] 23.0 mmol/L 21.0-32.0 [facility] Work Phone: Globulin (S) [Mass/Vol] 3.3 g/dL 2.2-4.2 [facility] Work Phone: Urea nitrogen/Creatinine [Mass ratio] 20.0 mg/mg 10-20 [facility] Work Phone: Laboratory - Drug toxicology on 12-31-2021 Amphetamines Ql (U) Negative <1000 ng/mL [facility] Work Phone: Benzodiazepines Ql (U) Negative < 200 ng/mL [facility] Work Phone: Cannabinoids Screen Ql (U) Negative < 50 ng/mL [facility] Work Phone: Cocaine Ql (U) Negative < 300 ng/mL [facility] Work Phone: Opiates Ql (U) Negative < 300 ng/mL [facility] Work Phone: Laboratory - Hematology and Cell countson 12-31-2021 Erythrocyte distribution width (RBC) [Entitic vol] 41.6 fL 35.1-43.9 [facility] Work Phone: Erythrocyte distribution width (RBC) [Ratio] 12.5 % 11.6-14.6 [facility] Work Phone: Immature granulocytes/100 WBC (Bld) 0.400 % 0.0-0.9 [facility] Work Phone: Comment on above: IG% - Immature Granu locytes (promyelocytes, myelocytes and metamyelocytes) > 1% indicates that a LEFT SHIFT is Present. MCH (RBC) [Entitic mass] 33.7 pg 27.0-32.0 [facility] Work Phone: Nucleated RBC/100 WBC (Bld) [Ratio] 0 % 0-5 [facility] Work Phone: MCHC Auto (RBC) [Mass/Vol]on 12-31-2021 MCHC (RBC) [Mass/Vol] 36.8 g/dL 32-36 [facility] Work Phone: No Panel Informationon 12-31 MDMA (Ecstasy) Screen Negative < 500 ng/mL [facility] Work Phone: Urine Barbiturates Screen Negative < 200 ng/mL [facility] Work Phone: Urine Drug Screen Comment [facility] Work Phone: Comment on above: CONFIRMATORY [...] Methadone Screen Negative < 300 ng/mL [facility] Work Phone: Estimated Creatinine Clearance Calc 63.42 ml/min [facility] Work Phone: Estimated GFR (MDRD) Amer 92 mL/min >60 [facility] Work Phone: Comment on above: GFR Calc Estimated GFR (MDRD) Non-Af Amer 76 mL/min >60 [facility] Work Phone: Comment on above: Non- GFR Calc Platelets bldon 12-31-2021 Platelets (Bld) [#/Vol] 213 10*3/uL 150-450 [facility] Work Phone: Serum or plasma albumin heather urement (mass/volume)on 12-31-2021 Albumin [Mass/Vol] 3.4 g/dL 3.2-5.0 [facility] Work Phone: Serum or plasma albumin/glob ulin mass ratioon 12-31-2021 Albumin/Globulin [Mass ratio] 1.0 {ratio} 0.9-2.4 [facility] Work Phone: Serum or plasma calcium heather urement (mass/volume)on 12-31-2021 Calcium [Mass/Vol] 9.4 mg/dL 8.5-10.1 [facility] Work Phone: Serum or plasma creatinine m easurement (mass/volume)on 12-31-2021 Creatinine [Mass/Vol] 1.00 mg/dL 0.70-1.30 [facility] Work Phone: Comment on above: The validity of the calculated GFR & GFRAA in patients over 70 years has not been determined. Clinical correlation is essential. Serum or plasma urea nitroge n measurement (mass/volume)on 12-31-2021 Urea nitrogen [Mass/Vol] 20 mg/dL 7-18 [facility] Work Phone: Thin prep Papanicolaou smear with manual screeningon 12-31-2021 Thin prep Papanicolaou smear with manual screening 18 U/L 15-37 [facility] Work Phone: Thin prep Papanicolaou smear with manual screening 11 5-15 [facility] Work Phone: Urine phencyclidine (PCP) de tectionon 12-31-2021 Phencyclidine Ql (U) Negative < 25 ng/mL [facility] Work Phone: Vital Signs Date Time Vital Sign Value Performing Clinician Facility 11-14-2024 10:31-0400 Body height 172.72 cm Karla Roperagen STAGE MANAGER-C Work Phone: [facility] 11-14-2024 10:31-0400 Body mass index (BMI) [Ratio] 23.8 kg/m2 Karla Haagen STAGE MANAGER-C Work Phone: [facility] 11-14-2024 10:31-0400 Body weight 70.93 kg Karla Haagen STAGE MANAGER-C Work Phone: 8(424)512-848456 [place] [address] 10-09-2024 09:36-0400 Body height 172.72 cm Karla Haagen STAGE MANAGER-C Work Phone: 3(280)076-770756 [place] [address] 10-09-2024 09:36-0400 Body mass index (BMI) [Ratio] 23.2 kg/m2 Karla Haagen STAGE MANAGER-C Work Phone: 8(622)466-159356 [place] [address] 10-09-2024 09:36-0400 Body temperature 97.8 [degF] Karla Haagen STAGE MANAGER-C Work Phone: 3(500)374-549256 [place] [address] 10-09-2024 09:36-0400 Body weight 69.39 kg Karla Haagen STAGE MANAGER-C Work Phone: 4(132)554-515756 [place] [address] 10-09-2024 09:36-0400 Diastolic blood pressure 66 mm[Hg] Karla Haagen STAGE MANAGER-C Work Phone: 0(048)081-001356 [place] [address] 10-09-2024 09:36-0400 Heart rate 62 /min Karla Haagen STAGE MANAGER-C Work Phone: 3(227)103-769756 [place] [address] 10-09-2024 09:36-0400 Respiratory rate 14 /min Karla Haagen STAGE MANAGER-C Work Phone: 7(999)164-455456 [place] [address] 10-09-2024 09:36-0400 SaO2% (BldA) [Mass fraction] 97 % Karla Haagen STAGE MANAGER-C Work Phone: 5(457)619-821656 [place] [address] 10-09-2024 09:36-0400 Systolic blood pressure 136 mm[Hg] Karla Haagen STAGE MANAGER-C Work Phone: [facility] 09-23-2024 09:35-0400 Body temperature 98.6 [degF] Karla Haagen STAGE MANAGER-C Work Phone: [facility] 09-23-2024 09:35-0400 Body weight 68.49 kg Karla Haagen STAGE MANAGER-C Work Phone: [facility] 09-23-2024 09:35-0400 Diastolic blood pressure 69 mm[Hg] Karla Haagen STAGE MANAGER-C Work Phone: 4(438)868-890656 [place] [address] 09-23-2024 09:35-0400 Heart rate 65 /min Karla Haagen STAGE MANAGER-C Work Phone: 5(198)731-427456 [place] [address] 09-23-2024 09:35-0400 Respiratory rate 18 /min Karla Haagen STAGE MANAGER-C Work Phone: 8(834)659-217156 [place] [address] 09-23-2024 09:35-0400 SaO2% (BldA) [Mass fraction] 95 % Karla Haagen STAGE MANAGER-C Work Phone: 6(798)568-525156 [place] [address] 09-23-2024 09:35-0400 Systolic blood pressure 145 mm[Hg] Karla Haagen STAGE MANAGER-C Work Phone: 5(623)739-483756 [place] [address] 09-18-2024 12:00-0400 Body temperature 97.4 [degF] Karla Haagen STAGE MANAGER-C Work Phone: 0(214)955-674561 [place] [address] 09-18-2024 12:00-0400 Diastolic blood pressure 51 mm[Hg] Karla Haagen STAGE MANAGER-C Work Phone: 8(378)715-659356 [place] [address] 09-18-2024 12:00-0400 Heart rate 66 /min Karla Haagen STAGE MANAGER-C Work Phone: 0(848)878-607056 [place] [address] 09-18-2024 12:00-0400 Inhaled oxygen flow rate 3 L/min Karla Haagen STAGE MANAGER-C Work Phone: 2(203)560-55[address] [place] [address] 09-18-2024 12:00-0400 Respiratory rate 16 /min Karla Roperagen STAGE MANAGER-C Work Phone: 7(122)883-978256 [place] [address] 09-18-2024 12:00-0400 SaO2% (BldA) [Mass fraction] 96 % Karla Haagen STAGE MANAGER-C Work Phone: 1(388)918-135656 [place] [address] 09-18-2024 12:00-0400 Systolic blood pressure 149 mm[Hg] Karla Haagen STAGE MANAGER-C Work Phone: 0(604)902-173156 [place] [address] 09-18-2024 04:37-0400 Body mass index (BMI) [Ratio] 23.8 kg/m2 Karla Haagen STAGE MANAGER-C Work Phone: 6(312)744-883756 [place] [address] 09-18-2024 04:37-0400 Body weight 70.9 kg Karla Haagen STAGE MANAGER-C Work Phone: 8(188)061-788756 [place] [address] 09-17-2024 16:02-0400 Body height 172.72 cm Karla Haagen STAGE MANAGER-C Work Phone: 1(632)450-453256 [place] [address] 09-03-2024 15:40-0400 Body temperature 98.7 [degF] Karla Haagen STAGE MANAGER-C Work Phone: 1(946)504-278656 [place] [address] 09-03-2024 15:40-0400 Body weight 69.39 kg Karla Haagen STAGE MANAGER-C Work Phone: 2(715)774-559756 [place] [address] 09-03-2024 15:40-0400 Diastolic blood pressure 67 mm[Hg] Karla Haagen STAGE MANAGER-C Work Phone: 9(371)270-154556 [place] [address] 09-03-2024 15:40-0400 Heart rate 75 /min Karla Haagen STAGE MANAGER-C Work Phone: 0(493)834-610056 [place] [address] 09-03-2024 15:40-0400 Respiratory rate 18 /min Karla Haagen STAGE MANAGER-C Work Phone: 2(988)463-511356 [place] [address] 09-03-2024 15:40-0400 SaO2% (BldA) [Mass fraction] 96 % Karla Haagen STAGE MANAGER-C Work Phone: 7(484)791-573356 [place] [address] 09-03-2024 15:40-0400 Systolic blood pressure 137 mm[Hg] Karla Haagen STAGE MANAGER-C Work Phone: 7(504)702-492656 [place] [address] 08-25-2024 09:40-0400 Body height 172.72 cm Karla Haagen STAGE MANAGER-C Work Phone: 0(574)116-709156 [place] [address] 08-25-2024 09:40-0400 Body weight 68.94 kg Karla Haagen STAGE MANAGER-C Work Phone: 6(888)822-210556 [place] [address] 08-22-2024 08:42-0400 Body mass index (BMI) [Ratio] 23.1 kg/m2 Karla Haagen STAGE MANAGER-C Work Phone: 2(914)023-516956 [place] [address] 08-04-2024 13:45-0400 Body height 172.72 cm Karla Haagen STAGE MANAGER-C Work Phone: 3(366)320-831056 [place] [address] 08-04-2024 13:45-0400 Body mass index (BMI) [Ratio] 24 kg/m2 Karla Haagen STAGE MANAGER-C Work Phone: 2(982)547-256156 [place] [address] 08-04-2024 13:45-0400 Body weight 71.83 kg Karla Haagen STAGE MANAGER-C Work Phone: 1(410)685-087456 [place] [address] 07-30-2024 13:33-0400 Diastolic blood pressure 75 mm[Hg] Karla Haagen STAGE MANAGER-C Work Phone: 7(071)795-995856 [place] [address] 07-30-2024 13:33-0400 Systolic blood pressure 147 mm[Hg] Karla Haagen STAGE MANAGER-C Work Phone: 6(170)573-790656 [place] [address] 07-30-2024 13:20-0400 Body height 172.72 cm Karla Haagen STAGE MANAGER-C Work Phone: 9(624)226-741556 [place] [address] 07-30-2024 13:20-0400 Body mass index (BMI) [Ratio] 23.1 kg/m2 Karla Haagen STAGE MANAGER-C Work Phone: 5(161)487-682656 [place] [address] 07-30-2024 13:20-0400 Body weight 68.94 kg Karla Haagen STAGE MANAGER-C Work Phone: 2(025)662-661056 [place] [address] 07-30-2024 13:20-0400 Heart rate 76 /min Karla Haagen STAGE MANAGER-C Work Phone: 2(626)435-240256 [place] [address] 07-30-2024 13:20-0400 Respiratory rate 16 /min Karla Haagen STAGE MANAGER-C Work Phone: 6(912)510-669356 [place] [address] 07-29-2024 07:27-0400 Body temperature 98 [degF] Karla Haagen STAGE MANAGER-C Work Phone: 1(431)178-556756 [place] [address] 07-29-2024 07:27-0400 Diastolic blood pressure 87 mm[Hg] Karla Haagen STAGE MANAGER-C Work Phone: 8(128)932-104256 [place] [address] 07-29-2024 07:27-0400 Heart rate 62 /min Karla Haagen STAGE MANAGER-C Work Phone: 4(665)819-702156 [place] [address] 07-29-2024 07:27-0400 Respiratory rate 18 /min Karla Haagen STAGE MANAGER-C Work Phone: 9(339)265-364156 [place] [address] 07-29-2024 07:27-0400 SaO2% (BldA) [Mass fraction] 98 % Karla Haagen STAGE MANAGER-C Work Phone: 3(333)528-593456 [place] [address] 07-29-2024 07:27-0400 Systolic blood pressure 149 mm[Hg] Karla Haagen STAGE MANAGER-C Work Phone: 8(283)217-668856 [place] [address] 07-29-2024 06:16-0400 Body height 172.72 cm Karla Haagen STAGE MANAGER-C Work Phone: 1(111)398-094456 [place] [address] 07-29-2024 06:16-0400 Body mass index (BMI) [Ratio] 23.1 kg/m2 Karla Haagen STAGE MANAGER-C Work Phone: 6(342)746-814256 [place] [address] 07-29-2024 06:16-0400 Body weight 69 kg Karla Haagen STAGE MANAGER-C Work Phone: 4(527)443-958056 [place] [address] 07-17-2024 14:05-0400 Body temperature 9.4 [degF] Karla Haagen STAGE MANAGER-C Work Phone: 4(579)808-487656 [place] [address] 07-17-2024 14:05-0400 Body weight 73.02 kg Karla Haagen STAGE MANAGER-C Work Phone: 7(786)484-150156 [place] [address] 07-17-2024 14:05-0400 Diastolic blood pressure 58 mm[Hg] Karla Haagen STAGE MANAGER-C Work Phone: 0(290)659-501956 [place] [address] 07-17-2024 14:05-0400 Heart rate 66 /min Karla Haagen STAGE MANAGER-C Work Phone: 7(979)414-768256 [place] [address] 07-17-2024 14:05-0400 Respiratory rate 16 /min Karla Haagen STAGE MANAGER-C Work Phone: 7(526)208-351556 [place] [address] 07-17-2024 14:05-0400 SaO2% (BldA) [Mass fraction] 93 % Karla Haagen STAGE MANAGER-C Work Phone: 6(543)155-498356 [place] [address] 07-17-2024 14:05-0400 Systolic blood pressure 122 mm[Hg] Karla Haagen STAGE MANAGER-C Work Phone: 8(935)574-597056 [place] [address] 06-03-2024 11:05-0400 Body temperature 98.4 [degF] Karla Haagen STAGE MANAGER-C Work Phone: 1(666)714-063656 [place] [address] 06-03-2024 11:05-0400 Body weight 73.48 kg Karla Haagen STAGE MANAGER-C Work Phone: 7(004)124-821656 [place] [address] 06-03-2024 11:05-0400 Diastolic blood pressure 62 mm[Hg] Karla Haagen STAGE MANAGER-C Work Phone: 8(281)866-591656 [place] [address] 06-03-2024 11:05-0400 Heart rate 68 /min Karla Haagen STAGE MANAGER-C Work Phone: 3(069)396-421756 [place] [address] 06-03-2024 11:05-0400 Respiratory rate 16 /min Karla Haagen STAGE MANAGER-C Work Phone: 9(505)954-909156 [place] [address] 06-03-2024 11:05-0400 SaO2% (BldA) [Mass fraction] 94 % Karla Haagen STAGE MANAGER-C Work Phone: 0(570)308-129556 [place] [address] 06-03-2024 11:05-0400 Systolic blood pressure 177 mm[Hg] Karla Baron STAGE MANAGER-C Work Phone: [facility] 05-27-2024 11:05-0400 Body mass index (BMI) [Ratio] 25.37 kg/m2 Karla Baron CORRECTIONS IDENTIFICATION TECHNICIAN.HOTEL RESERVATIONIST Work Phone: [facility] 05-27-2024 11:05-0400 Body weight 73.48 kg Karla Baron CORRECTIONS IDENTIFICATION TECHNICIAN.HOTEL RESERVATIONIST Work Phone: [facility] 05-27-2024 11:05-0400 Diastolic blood pressure 64 mm[Hg] Karla Baron CORRECTIONS IDENTIFICATION TECHNICIAN.HOTEL RESERVATIONIST Work Phone: [facility] 05-27-2024 11:05-0400 Heart rate 64 /min Karla Baron CORRECTIONS IDENTIFICATION TECHNICIAN.HOTEL RESERVATIONIST Work Phone: [facility] 05-27-2024 11:05-0400 Respiratory rate 16 /min Karla Baron CORRECTIONS IDENTIFICATION TECHNICIAN.HOTEL RESERVATIONIST Work Phone: [facility] 05-27-2024 11:05-0400 SaO2% (BldA) [Mass fraction] 94 % Karla Baron CORRECTIONS IDENTIFICATION TECHNICIAN.HOTEL RESERVATIONIST Work Phone: [facility] 05-27-2024 11:05-0400 Systolic blood pressure 138 mm[Hg] Karla Baron CORRECTIONS IDENTIFICATION TECHNICIAN.HOTEL RESERVATIONIST Work Phone: [facility] 05-18-2024 06:55-0400 Body temperature 98 [degF] Karla Baron STAGE MANAGER-C Work Phone: [facility] 05-18-2024 06:55-0400 Diastolic blood pressure 64 mm[Hg] Karla Haagen STAGE MANAGER-C Work Phone: [facility] 05-18-2024 06:55-0400 Heart rate 62 /min Karla Haagen STAGE MANAGER-C Work Phone: [facility] 05-18-2024 06:55-0400 Respiratory rate 16 /min Karla Roperagen STAGE MANAGER-C Work Phone: [facility] 05-18-2024 06:55-0400 SaO2% (BldA) [Mass fraction] 92 % Karla Baron STAGE MANAGER-C Work Phone: [facility] 05-18-2024 06:55-0400 Systolic blood pressure 151 mm[Hg] Karla Baron STAGE MANAGER-C Work Phone: [facility] 05-18-2024 05:24-0400 Body height 172.72 cm Karla Baron STAGE MANAGER-C Work Phone: [facility] 05-18-2024 05:24-0400 Body mass index (BMI) [Ratio] 23.8 kg/m2 Karla Baron STAGE MANAGER-C Work Phone: [facility] 05-18-2024 05:24-0400 Body weight 71 kg Karla Baron STAGE MANAGER-C Work Phone: [facility] 02-29-2024 14:01-0500 Body mass index (BMI) [Ratio] 25.22 kg/m2 Karla Baron CORRECTIONS IDENTIFICATION TECHNICIAN.HOTEL RESERVATIONIST Work Phone: [facility] 02-29-2024 14:01-0500 Body weight 73.03 kg Karla Baron CORRECTIONS IDENTIFICATION TECHNICIAN.HOTEL RESERVATIONIST Work Phone: [facility] 02-29-2024 14:01-0500 Diastolic blood pressure 74 mm[Hg] Karla Baron CORRECTIONS IDENTIFICATION TECHNICIAN.HOTEL RESERVATIONIST Work Phone: [facility] 02-29-2024 14:01-0500 Heart rate 72 /min Karla Baron CORRECTIONS IDENTIFICATION TECHNICIAN.HOTEL RESERVATIONIST Work Phone: [facility] 02-29-2024 14:01-0500 Respiratory rate 16 /min Karla Baron CORRECTIONS IDENTIFICATION TECHNICIAN.HOTEL RESERVATIONIST Work Phone: [facility] 02-29-2024 14:01-0500 SaO2% (BldA) [Mass fraction] 95 % Karla Baron CORRECTIONS IDENTIFICATION TECHNICIAN.HOTEL RESERVATIONIST Work Phone: [facility] 02-29-2024 14:01-0500 Systolic blood pressure 138 mm[Hg] Karla Baron CORRECTIONS IDENTIFICATION TECHNICIAN.HOTEL RESERVATIONIST Work Phone: [facility] 02-11-2024 08:48-0500 Body mass index (BMI) [Ratio] 24.5 kg/m2 Karla Baron STAGE MANAGER-C Work Phone: [facility] 02-11-2024 08:48-0500 Body temperature 98.2 [degF] Karla Baron STAGE MANAGER-C Work Phone: [facility] 02-11-2024 08:48-0500 Body weight 73.3 kg Karla Baron STAGE MANAGER-C Work Phone: [facility] 02-11-2024 08:48-0500 Diastolic blood pressure 68 mm[Hg] Karla Baron STAGE MANAGER-C Work Phone: [facility] 02-11-2024 08:48-0500 Heart rate 69 /min Karla Baron STAGE MANAGER-C Work Phone: [facility] 02-11-2024 08:48-0500 Respiratory rate 18 /min Karla Baron STAGE MANAGER-C Work Phone: [facility] 02-11-2024 08:48-0500 SaO2% (BldA) [Mass fraction] 98 % Karla Baron STAGE MANAGER-C Work Phone: [facility] 02-11-2024 08:48-0500 Systolic blood pressure 173 mm[Hg] Karla Baron STAGE MANAGER-C Work Phone: [facility] 02-01-2024 08:32-0500 Body mass index (BMI) [Ratio] 25.38 kg/m2 Gus Sanchez CORRECTIONS IDENTIFICATION TECHNICIAN.HOTEL RESERVATIONIST Work Phone: [facility] 02-01-2024 08:32-0500 Body temperature 97.9 [degF] Gus Sanchez APRN.HOTEL RESERVATIONIST Work Phone: [facility] 02-01-2024 08:32-0500 Body weight 73.5 kg Gus Sanchez CORRECTIONS IDENTIFICATION TECHNICIAN.HOTEL RESERVATIONIST Work Phone: [facility] 02-01-2024 08:32-0500 Diastolic blood pressure 82 mm[Hg] [facility] CORRECTIONS IDENTIFICATION TECHNICIAN.HOTEL RESERVATIONIST Work Phone: [facility] 02-01-2024 08:32-0500 Heart rate 86 /min [facility] CORRECTIONS IDENTIFICATION TECHNICIAN.HOTEL RESERVATIONIST Work Phone: [facility] 02-01-2024 08:32-0500 Respiratory rate 18 /min [facility] CORRECTIONS IDENTIFICATION TECHNICIAN.HOTEL RESERVATIONIST Work Phone: [facility] 02-01-2024 08:32-0500 SaO2% (BldA) [Mass fraction] 97 % [facility] CORRECTIONS IDENTIFICATION TECHNICIAN.HOTEL RESERVATIONIST Work Phone: [facility] 02-01-2024 08:32-0500 Systolic blood pressure 107 mm[Hg] [facility] CORRECTIONS IDENTIFICATION TECHNICIAN.HOTEL RESERVATIONIST Work Phone: [facility] 01-30-2024 12:45-0500 Body temperature 98.2 [degF] Karla Haagen STAGE MANAGER-C Work Phone: [facility] 01-30-2024 12:45-0500 Diastolic blood pressure 71 mm[Hg] Karla Haagen STAGE MANAGER-C Work Phone: [facility] 01-30-2024 12:45-0500 Heart rate 64 /min Karla Haagen STAGE MANAGER-C Work Phone: [facility] 01-30-2024 12:45-0500 Respiratory rate 16 /min Karla Haagen STAGE MANAGER-C Work Phone: [facility] 01-30-2024 12:45-0500 SaO2% (BldA) [Mass fraction] 97 % Karla Haagen STAGE MANAGER-C Work Phone: [facility] 01-30-2024 12:45-0500 Systolic blood pressure 144 mm[Hg] Karla Haagen STAGE MANAGER-C Work Phone: [facility] 01-30-2024 11:05-0500 Body mass index (BMI) [Ratio] 25.2 kg/m2 Karla Haagen STAGE MANAGER-C Work Phone: [facility] 01-30-2024 11:05-0500 Body weight 75.1 kg Karla Tod STAGE MANAGER-C Work Phone: [facility] 01-21-2024 13:05-0500 Diastolic blood pressure 71 mm[Hg] Dave Jaylan CORRECTIONS IDENTIFICATION TECHNICIAN.HOTEL RESERVATIONIST Work Phone: [facility] Comment on above: BP average 01-21-2024 13:05-0500 Heart rate 69 /min Dave Jaylan CORRECTIONS IDENTIFICATION TECHNICIAN.HOTEL RESERVATIONIST Work Phone: [facility] 01-21-2024 13:05-0500 Systolic blood pressure 162 mm[Hg] Dave Jaylan CORRECTIONS IDENTIFICATION TECHNICIAN.HOTEL RESERVATIONIST Work Phone: [facility] Comment on above: BP average 01-21-2024 12:51-0500 Body mass index (BMI) [Ratio] 25.37 kg/m2 Dave Jaylan CORRECTIONS IDENTIFICATION TECHNICIAN.HOTEL RESERVATIONIST Work Phone: [facility] 01-21-2024 12:51-0500 Body weight 73.48 kg Dave Jaylan CORRECTIONS IDENTIFICATION TECHNICIAN.HOTEL RESERVATIONIST Work Phone: [facility] 01-21-2024 12:51-0500 Respiratory rate 16 /min Dave Jaylan CORRECTIONS IDENTIFICATION TECHNICIAN.HOTEL RESERVATIONIST Work Phone: [facility] 01-21-2024 12:51-0500 SaO2% (BldA) [Mass fraction] 98 % Dave Jaylan CORRECTIONS IDENTIFICATION TECHNICIAN.HOTEL RESERVATIONIST Work Phone: [facility] 01-02-2024 10:35-0500 Body mass index (BMI) [Ratio] 25.03 kg/m2 Tomeka Aldridgeir CORRECTIONS IDENTIFICATION TECHNICIAN.HOTEL RESERVATIONIST Work Phone: [facility] 01-02-2024 10:35-0500 Body weight 72.48 kg Tomeka Zi CORRECTIONS IDENTIFICATION TECHNICIAN.HOTEL RESERVATIONIST Work Phone: [facility] 01-02-2024 10:35-0500 Diastolic blood pressure 73 mm[Hg] Tomeka Zi CORRECTIONS IDENTIFICATION TECHNICIAN.HOTEL RESERVATIONIST Work Phone: [facility] 01-02-2024 10:35-0500 Heart rate 65 /min Tomeka Zi CORRECTIONS IDENTIFICATION TECHNICIAN.HOTEL RESERVATIONIST Work Phone: [facility] 01-02-2024 10:35-0500 SaO2% (BldA) [Mass fraction] 98 % Tomeka Zi CORRECTIONS IDENTIFICATION TECHNICIAN.HOTEL RESERVATIONIST Work Phone: [facility] 01-02-2024 10:35-0500 Systolic blood pressure 170 mm[Hg] Tomeka Zi CORRECTIONS IDENTIFICATION TECHNICIAN.HOTEL RESERVATIONIST Work Phone: [facility] 12-26-2023 12:58-0500 Diastolic blood pressure 76 mm[Hg] Star Grande MD Work Phone: [facility] 12-26-2023 12:58-0500 Respiratory rate 16 /min Star Grande MD Work Phone: [facility] 12-26-2023 12:58-0500 Systolic blood pressure 167 mm[Hg] Star Grande MD Work Phone: [facility] 12-26-2023 12:47-0500 Heart rate 72 /min Star Grande MD Work Phone: [facility] 12-26-2023 12:47-0500 SaO2% (BldA) [Mass fraction] 93 % Star Grande MD Work Phone: [facility] 12-26-2023 10:52-0500 Body mass index (BMI) [Ratio] 25.62 kg/m2 Star Grande MD Work Phone: [facility] 12-26-2023 10:52-0500 Body temperature 97.81 [degF] Star Grande MD Work Phone: [facility] 12-26-2023 10:52-0500 Body weight 74.2 kg Star Grande MD Work Phone: [facility] 12-06-2023 13:25-0400 Body height 170.2 cm Tomeka Zi CORRECTIONS IDENTIFICATION TECHNICIAN.HOTEL RESERVATIONIST Work Phone: [facility] 12-06-2023 13:25-0400 Body mass index (BMI) [Ratio] 25.62 kg/m2 Tomeka Zi CORRECTIONS IDENTIFICATION TECHNICIAN.HOTEL RESERVATIONIST Work Phone: [facility] 12-06-2023 13:25-0400 Body temperature 97.11 [degF] Tomeka Zi CORRECTIONS IDENTIFICATION TECHNICIAN.HOTEL RESERVATIONIST Work Phone: [facility] 12-06-2023 13:25-0400 Body weight 74.21 kg Tomeka Zi CORRECTIONS IDENTIFICATION TECHNICIAN.HOTEL RESERVATIONIST Work Phone: [facility] 12-06-2023 13:25-0400 Diastolic blood pressure 63 mm[Hg] Tomeka Zi CORRECTIONS IDENTIFICATION TECHNICIAN.HOTEL RESERVATIONIST Work Phone: [facility] 12-06-2023 13:25-0400 Heart rate 69 /min Tomeka Zi CORRECTIONS IDENTIFICATION TECHNICIAN.HOTEL RESERVATIONIST Work Phone: [facility] 12-06-2023 13:25-0400 SaO2% (BldA) [Mass fraction] 96 % Tomeka Zi CORRECTIONS IDENTIFICATION TECHNICIAN.HOTEL RESERVATIONIST Work Phone: [facility] 12-06-2023 13:25-0400 Systolic blood pressure 152 mm[Hg] Tomeka Zi CORRECTIONS IDENTIFICATION TECHNICIAN.HOTEL RESERVATIONIST Work Phone: [facility] 11-27-2023 10:59-0400 Body mass index (BMI) [Ratio] 25 kg/m2 Karla Haagen CORRECTIONS IDENTIFICATION TECHNICIAN.HOTEL RESERVATIONIST Work Phone: [facility] 11-27-2023 10:59-0400 Body weight 73.48 kg Karla Haagen CORRECTIONS IDENTIFICATION TECHNICIAN.HOTEL RESERVATIONIST Work Phone: [facility] 11-27-2023 10:59-0400 Diastolic blood pressure 82 mm[Hg] Karla Haagen CORRECTIONS IDENTIFICATION TECHNICIAN.HOTEL RESERVATIONIST Work Phone: [facility] 11-27-2023 10:59-0400 Heart rate 59 /min Karla Haagen CORRECTIONS IDENTIFICATION TECHNICIAN.HOTEL RESERVATIONIST Work Phone: [facility] 11-27-2023 10:59-0400 Respiratory rate 16 /min Karla Haagen CORRECTIONS IDENTIFICATION TECHNICIAN.HOTEL RESERVATIONIST Work Phone: [facility] 11-27-2023 10:59-0400 SaO2% (BldA) [Mass fraction] 95 % Karla Baron CORRECTIONS IDENTIFICATION TECHNICIAN.HOTEL RESERVATIONIST Work Phone: [facility] 11-27-2023 10:59-0400 Systolic blood pressure 136 mm[Hg] Karla Baron APRN.HOTEL RESERVATIONIST Work Phone: [facility] 05-24-2023 09:21-0400 Body height 171.5 cm NA Hatfield PA-C Work Phone: [facility] 05-24-2023 09:21-0400 Body weight 76.2 kg NA Hatfield PA-C Work Phone: [facility] 05-24-2023 09:21-0400 Diastolic blood pressure 64 mm[Hg] NA Hatfield PA-C Work Phone: [facility] 05-24-2023 09:21-0400 Heart rate 61 /min NA Hatfield PA-C Work Phone: [facility] 05-24-2023 09:21-0400 SaO2% (BldA) [Mass fraction] 95 % NA Hatfield PA-C Work Phone: [facility] 05-24-2023 09:21-0400 Systolic blood pressure 136 mm[Hg] NA Hatfield PA-C Work Phone: [facility] 05-03-2023 14:15-0400 Body temperature 97.6 [degF] [facility] 05-03-2023 14:15-0400 Diastolic blood pressure 76 mm[Hg] [facility] 05-03-2023 14:15-0400 Heart rate 78 /min [facility] 05-03-2023 14:15-0400 Respiratory rate 16 /min [facility] 05-03-2023 14:15-0400 SaO2% (BldA) [Mass fraction] 99 % [facility] 05-03-2023 14:15-0400 Systolic blood pressure 128 mm[Hg] [facility] 05-03-2023 13:16-0400 Body height 185.42 cm [facility] 05-03-2023 13:16-0400 Body mass index (BMI) [Ratio] 20.1 kg/m2 [facility] 05-03-2023 13:16-0400 Body weight 69.26 kg [facility] 10-10-2022 08:36-0400 Body height 171.5 cm NA Hatfield PA-C Work Phone: [facility] 10-10-2022 08:36-0400 Body weight 75.48 kg NA Hatfield PA-C Work Phone: [facility] 10-10-2022 08:36-0400 Diastolic blood pressure 70 mm[Hg] NA Hatfield PA-C Work Phone: [facility] 10-10-2022 08:36-0400 Heart rate 60 /min NA Hatfield PA-C Work Phone: [facility] 10-10-2022 08:36-0400 SaO2% (BldA) [Mass fraction] 97 % NA Hatfield PA-C Work Phone: [facility] 10-10-2022 08:36-0400 Systolic blood pressure 128 mm[Hg] NA Hatfield PA-C Work Phone: [facility] 08-11-2022 10:04-0400 Body weight 74.3 kg NA Hatfield PA-C Work Phone: [facility] 08-11-2022 10:04-0400 Diastolic blood pressure 80 mm[Hg] NA Hatfield PA-C Work Phone: [facility] 08-11-2022 10:04-0400 Heart rate 58 /min NA Hatfield PA-C Work Phone: [facility] 08-11-2022 10:04-0400 Respiratory rate 18 /min NA Hatfield PA-C Work Phone: [facility] 08-11-2022 10:04-0400 SaO2% (BldA) [Mass fraction] 97 % NA Hatfield PA-C Work Phone: [facility] 08-11-2022 10:04-0400 Systolic blood pressure 138 mm[Hg] ALICIA Hatfield PA-C Work Phone: [facility] 07-04-2022 13:06-0400 Body weight 73.85 kg Noris Podlogar CORRECTIONS IDENTIFICATION TECHNICIAN.HOTEL RESERVATIONIST Work Phone: [facility] 07-04-2022 13:06-0400 Diastolic blood pressure 62 mm[Hg] Noris Podlogar CORRECTIONS IDENTIFICATION TECHNICIAN.HOTEL RESERVATIONIST Work Phone: [facility] 07-04-2022 13:06-0400 Heart rate 77 /min Noris Podlogar CORRECTIONS IDENTIFICATION TECHNICIAN.HOTEL RESERVATIONIST Work Phone: [facility] 07-04-2022 13:06-0400 Respiratory rate 16 /min Noris Podlogar CORRECTIONS IDENTIFICATION TECHNICIAN.HOTEL RESERVATIONIST Work Phone: [facility] 07-04-2022 13:06-0400 SaO2% (BldA) [Mass fraction] 97 % Noris Podlogar CORRECTIONS IDENTIFICATION TECHNICIAN.HOTEL RESERVATIONIST Work Phone: [facility] 07-04-2022 13:06-0400 Systolic blood pressure 124 mm[Hg] Noris Podlogar CORRECTIONS IDENTIFICATION TECHNICIAN.HOTEL RESERVATIONIST Work Phone: [facility] 04-06-2022 12:33-0500 Body temperature 97.59 [degF] Thien Stanton CORRECTIONS IDENTIFICATION TECHNICIAN.HOTEL RESERVATIONIST Work Phone: [facility] 04-06-2022 12:33-0500 Body weight 72.76 kg Thien Stanton CORRECTIONS IDENTIFICATION TECHNICIAN.HOTEL RESERVATIONIST Work Phone: [facility] 04-06-2022 12:33-0500 Diastolic blood pressure 70 mm[Hg] Thien Maximion CORRECTIONS IDENTIFICATION TECHNICIAN.HOTEL RESERVATIONIST Work Phone: [facility] 04-06-2022 12:33-0500 Heart rate 81 /min Thien Stanton CORRECTIONS IDENTIFICATION TECHNICIAN.HOTEL RESERVATIONIST Work Phone: [facility] 04-06-2022 12:33-0500 Respiratory rate 16 /min Thien Stanton CORRECTIONS IDENTIFICATION TECHNICIAN.HOTEL RESERVATIONIST Work Phone: [facility] 04-06-2022 12:33-0500 SaO2% (BldA) [Mass fraction] 96 % Thien Stanton APRN.HOTEL RESERVATIONIST Work Phone: [facility] 04-06-2022 12:33-0500 Systolic blood pressure 132 mm[Hg] Thien Stanton APRN.HOTEL RESERVATIONIST Work Phone: [facility] 01-01-2022 11:13-0500 Respiratory rate 20 /min [facility] Work Phone: 01-01-2022 11:13-0500 SaO2% (BldA) [Mass fraction] 93 % [facility] Work Phone: 01-01-2022 10:00-0500 Body temperature 98.1 [degF] [facility] Work Phone: 01-01-2022 10:00-0500 Diastolic blood pressure 64 mm[Hg] [facility] Work Phone: 01-01-2022 10:00-0500 Heart rate 86 /min [facility] Work Phone: 01-01-2022 10:00-0500 Systolic blood pressure 142 mm[Hg] [facility] Work Phone: 01-01-2022 06:00-0500 Inhaled oxygen flow rate 2 L/min [facility] Work Phone: 12-31-2021 18:40-0500 Body height 185.42 cm [facility] Work Phone: 12-31-2021 18:40-0500 Body mass index (BMI) [Ratio] 22.1 kg/m2 [facility] Work Phone: 12-31-2021 18:40-0500 Body weight 76.1 kg [facility] Work Phone: 05-20-2021 14:52-0400 Heart rate 82 /min [facility] Work Phone: 05-20-2021 14:52-0400 Respiratory rate 17 /min [facility] Work Phone: 05-20-2021 14:52-0400 SaO2% (BldA) [Mass fraction] 98 % [facility] Work Phone: 05-20-2021 13:41-0400 Body height 172.72 cm [facility] Work Phone: 05-20-2021 13:41-0400 Body mass index (BMI) [Ratio] 24.3 kg/m2 [facility] Work Phone: 05-20-2021 13:41-0400 Body temperature 98.3 [degF] [facility] Work Phone: 05-20-2021 13:41-0400 Body weight 72.57 kg [facility] Work Phone: 05-20-2021 13:41-0400 Diastolic blood pressure 82 mm[Hg] [facility] Work Phone: 05-20-2021 13:41-0400 Systolic blood pressure 160 mm[Hg] [facility] Work Phone: Encounters Encounter Date Encounter Type Care Provider Facility Start: 12-17-2024 ambulatory Mello Kimballey Facility:[facility] Start: 11-24-2024 End: 11-24-2024 ambulatory KARLA CHAYO Facility:[facility] Start: 11-24-2024 Patient encounter procedure KARLA BARON [facility] Start: 11-14-2024 End: 11-14-[address] Yadiel Awan MD -[facility] Work Phone: Start: 11-14-2024 End: 11-14-2024 ambulatory Karla Baron STAGE MANAGER-C Work Phone: -[facility] Start: 10-15-2024 Encounter for other preprocedural examination Sammie Strong [facility] Start: 10-09-2024 End: 10-09-2024 Patient encounter procedure Sammie BERRY -[facility] Work Phone: Start: 10-09-2024 End: 10-09-2024 ambulatory Karla Baron STAGE MANAGER-C Work Phone: -[facility] Start: 10-03-2024 End: 10-03-2024 Refill Karla Baron CORRECTIONS IDENTIFICATION TECHNICIAN.HOTEL RESERVATIONIST Work Phone: [facility] Comment on above: Refill Request Start: 09-23-2024 End: 09-23-2024 Patient encounter procedure Sammie BERRY -[facility] Work Phone: Start: 09-23-2024 End: 09-23-2024 ambulatory Karla Baron STAGE MANAGER Facility:[facility] Start: 09-18-2024 Non-patient / Non-visit Sammie BERRY -[facility] Start: 09-17-2024 ambulatory Mello Demarco Facility:[facility] Start: 09-17-2024 End: 09-18-2024 Evaluation and management of inpatient Dr. Mello Demarco MD -Intensive Care Unit Work Phone: Start: 09-17-2024 Non-patient / Non-visit Dr. Mello humphreys MD -[facility] Start: 09-17-2024 ambulatory Mello Demarco Facility:[facility] Start: 09-03-2024 End: 09-03-[address] Mello Demarco MD -[facility] Work Phone: Start: 09-03-2024 End: 09-03-2024 ambulatory Karla Baron STAGE MANAGER-C Work Phone: -[facility] Start: 08-29-2024 End: 08-29-2024 Refill Karla Baron CORRECTIONS IDENTIFICATION TECHNICIAN.HOTEL RESERVATIONIST Work Phone: [facility] Comment on above: Refill Request Start: 08-25-2024 End: 08-25-2024 Admission to same day surgery center Dr. Kp Puentes MD -[facility]/Special Procedures Work Phone: Start: 08-25-2024 End: 08-25-2024 ambulatory Karla Baron STAGE MANAGER-C Work Phone: -[facility]Special Procedures Start: 08-20-2024 Encounter for other preprocedural examination [facility] Start: 08-15-2024 Non-patient / Non-visit Manuela lewis STAGE MANAGER-C -[facility] Work Phone: Start: 08-15-2024 ambulatory Manuela Bojorquez STAGE MANAGER Facili ty:[facility] Start: 08-15-2024 ambulatory Kp Navarreteori Facility:[facility] Start: 08-15-2024 Non-patient / Non-visit Dr. Jevon KATZ -[facility] Start: 08-15-2024 End: 08-15-2024 ambulatory Karla Baron STAGE MANAGER-C Work Phone: -Cardiovascular Services Start: 08-15-2024 End: 08-15-[address] Kp Puentes MD -[facility] Services Work Phone: Start: 08-15-2024 End: 08-15-2024 ambulatory Mello Demarco Facility:[facility] Start: 08-05-2024 End: 08-05-2024 Telephone encounter Karla Baron APRN.HOTEL RESERVATIONIST Work Phone: [facility] Comment on above: Patient Update Start: 08-04-2024 End: 08-04-[address] Akira Negrete MD -[facility] Work Phone: Start: 08-04-2024 End: 08-04-2024 ambulatory Karla Baron STAGE MANAGER-C Work Phone: -[facility] Start: 07-30-2024 Encounter for preprocedural cardiovascular examination [facility] Start: 07-30-2024 End: 07-30-[address] Kp Puentes MD -[facility] Work Phone: Start: 07-30-2024 End: 07-30-[address] Kp Puentes [facility] Start: 07-30-2024 End: 07-30-2024 ambulatory Karla Baron STAGE MANAGER-C Work Phone: [facility] Work Phone: Start: 07-29-2024 End: 07-29-2024 Emergency department patient visit Kalra Haagen STAGE MANAGER-C Work Phone: -Emergency Department Work Phone: Start: 07-24-2024 End: 07-24-2024 ambulatory Karla Haagen STAGE MANAGER-C Work Phone: -Radiology [facility] Start: 07-24-2024 End: 07-24-[address] Chandni Fitzgerald MD -Radiology [facility] Work Phone: Start: 07-24-2024 End: 07-24-2024 ambulatory Chandni Fitzgerald Facility:[facility] Start: 07-17-2024 End: 07-17-[address] Mello Demarco MD -[facility] Work Phone: Start: 07-17-2024 End: 07-17-2024 ambulatory Karla Haagen STAGE MANAGER-C Work Phone: [facility] Work Phone: Start: 07-03-2024 End: 07-03-2024 ambulatory Karla Haagen STAGE MANAGER-C Work Phone: [facility] Work Phone: Start: 07-03-2024 End: 07-03-2024 Patient encounter procedure Sammie BERRY -Cat Scan [facility] Work Phone: Start: 07-03-2024 End: 07-03-2024 ambulatory Sammie Strong Facility:[facility] Start: 06-24-2024 End: 06-24-2024 ambulatory KARLA HAAGEN Facility:[facility] Start: 06-05-2024 Non-patient / Non-visit Dr. Mello humphreys MD -[facility] Start: 06-05-2024 End: 06-05-2024 ambulatory Karla Haagen STAGE MANAGER-C Work Phone: [facility] Work Phone: Start: 06-05-2024 End: 06-05-2024 Patient encounter procedure Sammie BERRY -Cardiovascular Services Work Phone: Start: 06-05-2024 End: 06-05-2024 ambulatory Sammie Strong Facility:[facility] Start: 06-03-2024 End: 06-03-2024 Patient encounter procedure Sammie BERRY -[facility] Work Phone: Start: 06-03-2024 End: 06-03-2024 ambulatory Karla Baron NP Facility:[facility] Start: 05-28-2024 End: 05-28-2024 Telephone encounter Karla Baron APRN.CNP Work Phone: [facility] Comment on above: Consult (to [facility] ular Surgery) Start: 05-27-2024 End: 05-27-2024 Office outpatient visit 25 minutes Karla Baron CORRECTIONS IDENTIFICATION TECHNICIAN.HOTEL RESERVATIONIST Work Phone: [facility] Comment on above: 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); Peripheral vascular disease; Chronic pain syndrome; Thyroid nodule; Nicotine dependence, cigarettes, uncomplicated; Insomnia, unspecified type Start: 05-27-2024 End: 05-27-2024 ambulatory [facility] Facility:[facility] Start: 05-18-2024 End: 05-18-2024 Emergency department patient visit Karla CADE Work Phone: -Emergency Department Work Phone: Start: 04-03-2024 End: 04-03-2024 ambulatory [facility]CHAYO Facility:[facility] Start: 03-03-2024 End: 03-04-2024 Telephone encounter Karla Baron APRN.CNP Work Phone: [facility] Comment on above: Results Start: 02-29-2024 End: 02-29-2024 Office outpatient visit 25 minutes Karla Baron CORRECTIONS IDENTIFICATION TECHNICIANKassyHOTEL RESERVATIONIST Work Phone: [facility] Comment on above: Primary hypertension (Primary Dx); Primary insomnia; Benign prostatic hyperplasia with lower urinary tract symptoms, symptom details unspecified; Acute pain of right shoulder Start: 02-29-2024 End: 02-29-2024 ambulatory [facility]CHAYO Facility:[facility] Start: 02-29-2024 End: 02-29-2024 ambulatory [facility] Facility:[facility] Start: 02-27-2024 End: 02-27-2024 Telephone encounter Karla Baron APRN.HOTEL RESERVATIONIST Work Phone: [facility] Comment on above: Patient Update Start: 02-21-2024 End: 02-21-2024 Refill Karla Baron APRN.HOTEL RESERVATIONIST Work Phone: [facility] Comment on above: Refill Request Start: 02-18-2024 End: 02-18-[address] Justice Johnson MD -Laboratory Work Phone: Start: 02-18-2024 End: 02-18-[facility] Start: 02-11-2024 End: 02-11-2024 Emergency department patient visit Dr. Mello Briceño DO -Emergency Department Work Phone: Start: 02-05-2024 End: 02-08-2024 Telephone encounter Karla Baron APRN.HOTEL RESERVATIONIST Work Phone: [facility] Comment on above: Patient Update Start: 02-04-2024 End: 02-05-2024 Telephone encounter Karla Baron APRN.HOTEL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 Phone: [facility] 10-10-2022 influenza virus vaccine, unspecified formulation Nilesh Ervin MD Work Phone: [facility] 11-03-2021 influenza (HD-IIV4) vaccine, age 65+ yr, high dose, quadrivalent, PF (FLUZONE HIGH-DOSE) ALICIA Hatfield PA-C Work Phone: [facility] 05-20-2021 tetanus toxoid, redu melecio diphtheria toxoid, and acellular pertussis vaccine, adsorbed [facility] 12-09-2020 influenza, injectabl e, quadrivalent, preservative free [facility] 12-09-2020 influenza, seasonal, injectable [facility] 12-09-2020 influenza, seasonal, injectable, preservative free NA Hatfield PA-C Work Phone: [facility] 04-29-2020 Covid (Pfizer) [facility] 11-26-2019 influenza, high-dose , quadrivalent vaccine (FLUZONE HIGH DOSE QUADRIVALENT) NA Hatfield PA-C Work Phone: [facility] 11-29-2018 influenza, high dose seasonal, preservative-free NA Hatfield PA-C Work Phone: [facility] 11-16-2017 influenza, high dose seasonal, preservative-free NA Hatfield PA-C Work Phone: [facility] Work Phone: 12-04-2016 influenza, high dose seasonal, preservative-free NA Hatfield PA-C Work Phone: [facility] Work Phone: 02-24-2016 influenza, high dose seasonal, preservative-free NA Hatfield PA-C Work Phone: [facility] Work Phone: 11-06-2015 Influenza virus vaccine [facility] 11-06-2015 influenza, high dose seasonal, preservative-free NA Hatfield PA-C Work Phone: [facility] 11-06-2015 influenza, seasonal, injectable, preservative free NA Hatfield PA-C Work Phone: [facility] 05-10-2015 pneumococcal conjuga te vaccine, 13 valent NA Hatfield PA-C Work Phone: [facility] 01-20-2015 influenza, high dose seasonal, preservative-free NA Hatfield PA-C Work Phone: [facility] 2014 influenza, high dose seasonal, preservative-free NA Hatfield PA-C Work Phone: [facility] 06-21-2013 tetanus toxoid, redu melecio diphtheria toxoid, and acellular pertussis vaccine, adsorbed [facility] 12-12-2011 influenza virus vaccine, unspecified formulation NA Hatfield PA-C Work Phone: [facility] 08-23-2011 pneumococcal polysaccharide vaccine, 23 valent NA Hatfield PA-C Work Phone: [facility] 08-23-2011 Pneumococcal Vaccine [facility] Work Phone: 08-23-2011 pneumococcal vaccine , unspecified formulation [facility] 11-14-2010 influenza virus vaccine, unspecified formulation NA Hatfield PA-C Work Phone: [facility] Work Phone: 12-04-2007 influenza virus vaccine, unspecified formulation NA Hatfield PA-C Work Phone: [facility] 12-04-2007 pneumococcal polysaccharide vaccine, 23 valent NA Hatfield PA-C Work Phone: [facility] 12-04-2007 tetanus toxoid, redu emlecio diphtheria toxoid, and acellular pertussis vaccine, adsorbed NA Hatfield PA-C Work Phone: [facility] Work Phone: 09-06-1977 diphtheria and tetan us toxoids, adsorbed for pediatric use NA Hatfield PA-C Work Phone: [facility] Payers Date Payer Category Payer Self-pay [id number] 2018 Private Health Insurance [id number] 2018 Private Health Insurance [id number] 2017 Medicare [id number] 2017 Medicare [id number] Medicare [id number] Unknown [id number] Unknown [id number] Unknown [id number] 2.16.8 40.1.842593.3.579.2.462 Unknown [id number] 2.16.8 40.1.960028.3.579.2.462 Unknown [id number] 2.16.8 40.1.704551.3.579.2.462 Unknown [id number] 2.16.8 40.1.313455.3.579.2.462 Unknown [id number] 2.16.8 40.1.146762.3.579.2.462 Unknown [id number] 2.16.8 40.1.952833.3.579.2.462 Unknown [id number] 2.16.8 40.1.498391.3.579.2.462 Unknown [id number] 2.16.8 40.1.381258.3.579.2.462 Unknown [id number] 2.16.8 40.1.805835.3.579.2.462 Unknown [id number] 2.16.8 40.1.356471.3.579.2.462 Unknown [id number] 2.16.8 40.1.720923.3.579.2.462 Unknown [id number] 2.16.8 40.1.171132.3.579.2.462 Unknown [id number] 2.16.8 40.1.345370.3.579.2.462 Unknown [id number] 2.16.8 40.1.732903.3.579.2.462 Unknown [id number] 2.16.8 40.1.876872.3.579.2.462 Unknown [id number] 2.16.8 40.1.717532.3.579.2.462 Unknown [id number] 2.16.8 40.1.401094.3.579.2.462 Unknown [id number] 2.16.8 40.1.761258.3.579.2.462 Unknown [id number] 2.16.8 40.1.213558.3.579.2.462 Unknown [id number] 2.16.8 40.1.917495.3.579.2.462 Unknown [id number] 2.16.8 40.1.785984.3.579.2.462 Unknown [id number] 2.16.8 40.1.240837.3.579.2.462 Unknown [id number] 2.16.8 40.1.689754.3.579.2.462 Unknown [id number] 2.16.8 40.1.377051.3.579.2.462 Unknown [id number] 2.16.8 40.1.576280.3.579.2.462 Unknown [id number] 2.16.8 40.1.691686.3.579.2.462 Unknown [id number] 2.16.8 40.1.710086.3.579.2.462 Unknown [id number] 2.16.8 40.1.378780.3.579.2.462 Social History Date Type Detail Facility Start: 05-20-2021 End: 05-03-2023 Tobacco smoking status AKIS Unknown if ever smoked [facility] Start: 05-02-2016 None [facility] Start: 05-08-2013 Spouse/ Signif icant Other [facility] Start: 05-08-2013 Cigarettes [facility] Start: 1940 Sex Assigned At Male [facility] Start: 02-05-1958 End: 11-27-2023 Tobacco smoking status NHIS Smokes tobacco daily [facility] Start: 02-05-1958 End: 04-19-2022 History of tobacco use Cigarette Smoker [facility] Start: 10-13-2021 End: 08-11-2022 Cigarettes smoked current (pack per day) - Reported 1 [facility] Start: 10-13-2021 End: 11-27-2023 Tobacco use and exposure Smokeless tobacco non-user [facility] Start: 10-13-2021 End: 09-18-2024 Alcohol intake Current drinker of alcohol (finding) [facility] Start: 10-22-2015 History SDOH Alcohol Comment Socially [facility] Start: 1940 Sex Assigned At Not on file C [facility] Start: 10-03-2021 End: 10-13-2021 Exposure to SARS-CoV-2 (event) Not sure [facility] Start: 07-04-2022 Tobacco smoking stat us AKIS Ex-smoker [facility] Start: 02-05-1958 End: 04-19-2022 History of tobacco use Current smoker [facility] Start: 10-15-2020 End: 08-11-2022 Tobacco use panel [facility] Start: 01-07-2012 Adult Depression Screening Assessment 0 [facility] Start: 05-18-2024 End: 10-16-2024 Tobacco smoking status [facility] Current Heavy tobacco smoker [facility] Start: 05-18-2024 Sex Male (finding) [facility] Medical Equipment Procedure Code Equipment Code Equipment Origin al Text Equipment Identifier Dates Endarterectomy, carotid VISTASEAL, 2ML FDA Start: 09-17-2024 Endarterectomy, carotid Cardiovascular patch, animal-derived ()[id number] FDA Start: 09-17-2024 Endarterectomy, carotid Ligation clip, metallic [id number] FDA Start: 09-17-2024 Endarterectomy, carotid Ligation clip, metallic ()[id number] FDA Start: 09-17-2024 Endarterectomy, carotid VISTASEAL, 2ML FDA Start: 09-17-2024 Endarterectomy, carotid VISTASEAL, 2ML FDA Start: 09-17-2024 Endarterectomy, carotid VISTASEAL, 2ML FDA Start: 09-17-2024 Ligation clip, synthetic polymer, non-bioabsorbable ()[id number] FDA Start: 12-08-2020 Patch Vascu-Guar d Taper Bovine Pericardial 8x.8cm Cardiovascular [place] - [id number]_[facility] Start: 03-01-2016 Comment on above: Description: Vascu G uard Patch Graft Patch Vascu-Guar d Taper Bovine Pericardial 8x.8cm Cardiovascular [place] - [id number]_[facility] Start: 03-01-2016 Comment on above: Description: Vascu G uard Patch Graft Goals Date Patient Goal Desired Activity /State Functional Status Date Assessment Result Facility 09-18-2024 Functional status Ambulates;Chair [facility] Work Phone: 04-13-2016 Are you deaf, or do you have serious difficulty hearing No 04/13/2016 2:31 PM Kwan Diehl, CORRECTIONS IDENTIFICATION TECHNICIAN.HOTEL RESERVATIONIST No [facility] Work Phone: 04-13-2016 Are you blind, or do you have serious difficulty seeing, even when wearing glasses No 04/13/2016 2:31 PM Kwan Diehl, CORRECTIONS IDENTIFICATION TECHNICIAN.HOTEL RESERVATIONIST No [facility] 04-13-2016 Do you have serious difficulty walking or climbing stairs No 04/13/2016 2:31 PM Kwan Diehl, CORRECTIONS IDENTIFICATION TECHNICIAN.HOTEL RESERVATIONIST No [facility] 04-13-2016 Do you have difficul ty dressing or bathing Yes 04/13/2016 2:31 PM Kwan Diehl, CORRECTIONS IDENTIFICATION TECHNICIAN.HOTEL RESERVATIONIST Yes [facility] 04-13-2016 Because of a physica l, mental, or emotional condition, do you have difficulty doing errands alone such as visiting a physician's office or shopping Yes 04/13/2016 2:31 PM Kwan Diehl, CORRECTIONS IDENTIFICATION TECHNICIAN.HOTEL RESERVATIONIST Yes [facility] Mental Status Date Assessment Result Facility 09-18-2024 Cognitive function Voice/Name [facility] Work Phone: 05-20-2021 Cognitive function Voice/Name [facility] Work Phone: 04-13-2016 Because of a physica l, mental, or emotional condition, do you have serious difficulty concentrating, remembering, or making decisions No 04/13/2016 2:31 PM Kwan Diehl APRN.HOTEL RESERVATIONIST No [facility] Clinical Notes 04-11-2016 to 11-24-2024 Telephone Encounter - Ida Mcgovern RN - 10/03/2024 9:38 AM EDTTelephone Encounter - Ida Mcgovern RN - 10/03/2024 9:38 AM EDT Note Date & Type Note Facility 11-24-2024 Note HNO ID: [id number] Author: KARLA BARON APRN.HOTEL RESERVATIONIST Service: ? Author Type: Nurse Practitioner Type: [...] YR, HIGH DOSE, TRIVALENT (FLUZONE HIGH-DOSE) - [facility] COVID-19 VACCINE AGE 12+ YR (COMIRNATY) 5. [...] as needed for worsening/no improvement. Karla Baron APRN.[facility] 11-14-2024 Progress note [facility] 11-14-2024 Radiology Diagnostic study note [facility] Imaging Services [address] [place] [address] L/S Spine Bending Flex/Ext MR#: [id number] Acct: [id number] Name: RAMONITA EL Rep #: [id number] : 1940 84 From: Lindsay Hendricks MD PCP: RAYO Pillai Status: DEP A MB Study:L/S Spine Bending Flex/Ext Date of Exam : 11/14/24 Exam# [id number] Ordering Dr: Aditya Ty EXAM: XR Lumbosacral [...] changes lumbar spine as described. Reading Location: [facility] CC: RAYO Baron; KRISTI Webster ~ Instructor Looping: Signed [facility] 10-03-2024 Telephone encounter Note The patient has [...] Mcgovern RN October 03, 2024 9:39 AM [facility] 10-03-2024 Miscellaneous Notes The patient has been [...] 2024 9:39 AM documented in this encounter [facility] 09-18-2024 Discharge summary [facility] 09-18-2024 Progress note [facility] 09-18-2024 Note [facility] Medical Records Department [address] [place] [address] Discharge Summary 09/18/24 1239 MR#: [id number] Acct: [id number] Name: RAMONITA EL Rep #: [id number] : 1940 84 From: Sammie BERRY PCP: RAYO Pillai Status:ADM IN Location: ICU [id number] Providers Date of Admission: 09/17/24 Primary Care [...] 90.6 H, Lymph % (Auto) 5.2 L, [place] % (Auto) 3.8, Eos % (Auto) 0.0, [...] O2 Discharge instruc (more content not included)... [facility] 09-18-2024 Progress note Note Date/Time September 18, 2024 1:27pm [facility] Medical Records Department [address] [place] [address] Progress Note - Surgery 09/18/2415 MR#: [id number] Acct: [id number] Name: RAMONITA EL Rep #:[id number] : 1940 84 From: Sammie BERRY PCP: [...] (Auto) 90.6 H, Lymph % (Auto) 5.2L, [place] % (Auto) 3.8, Eos % (Auto) 0.0, [...] discharge this afternoon. Charges/Coding Procedures Integumentary 111xxx-113xx: 61310 Global Visit 09/18/24 0823 <Electronically signed by Sammie BERRY> Cosigner Signature (if applicable): 09/18/24 1327 <Electronically signed by Mello Demarco MD> CC: ~ Signed [facility] Work Phone: 1(179) 962-246408-13-2025 Consult note Author Sada Jacques [facility] Note Date/Time September 17, 2024 4: 35pm [facility] Medical Records Department [address] [place] [address] Anesthesia Postop Eval II 09/17/24 1635 MR#: [id number] Acct: [id number] Name: RAMONITA EL Rep #:[id number] : 1940 84 From: Sada Jacques CRNA PCP: RAYO Pillai Status:ADM I N Y Race: C Location: ICU CVICU 201-1 Anesthesia Postop Eval I Sum Postop Eval Completion status Anesthesia document: Postop Eval 1 completed: Yes Anesthesia Postop Eval I Summary Anesthesia Postop Eval I Summary: Anesthesia Postop Eval I: Assessment Summary 3 Airway patent Yes 09/17/24 14:00 IMPRESSION [email or web address].[email or web address] Spontaneous unlabored Yes 09/17/24 14:00 IMPRESSION PRINTER.PKEL respirations Mental status Awake 09/17/24 14:00 IMPRESSION PRINTER.PKEL nausea No 09/17/24 14:00 IMPRESSION PRINTER.PKEL Vomiting No 09/17/24 14:00 IMPRESSION PRINTER.PKEL Anesthesia Postop Eval I: Fluid Summary Crystalloid volume administer 1,700 09/17/24 14:00 IMPRESSION PRINTER.PKEL (ml) Colloids volume administered ( ml) Blood Product volume administered (ml) Total IV fluid infused 1,700 09/17/24 14:00 IMPRESSION PRINTER.PKEL Anesthesia Postop Eval I: Summary Notes Anesthesia Complication No 09/17/24 14:00 IMPRESSION PRINTER.PKEL Anesthesia Complication Comment: Post-operative progress note Anesthesia: Postop Eval II Evaluation Mental status: Awake Pain Level: 2 nausea: No Vomiting: No 09/17/24 1635 <Electronically signed by Sada rothman CRNA> Date _ Sada Jacques CRNA Cosigner Signature: Date CC: ~ Signed [facility] Work Phone: 1(453) 867-349008-13-2025 Consult note [facility] Medical Records Department [address] [facility] [place] [address] Anesthesia Postop Eval II 09/17/24 1635 MR#: [id number] Acct: [id number] Name: RAMONITA EL Rep #:[id number] : 1940 84 From: Sada Jacques CRNA PCP: RAYO Pillai Status:ADM I N Y Race: C Location: ICU CVICU 201-1 Anesthesia Postop Eval I Sum Postop Eval Completion status Anesthesia document: Postop Eval 1 completed: Yes Anesthesia Postop Eval I Summary Anesthesia Postop Eval I Summary: Anesthesia Postop Eval I: Assessment Summary 3 Airway patent Yes 09/17/24 14:00 IMPRESSION [email or web address] Spontaneous unlabored Yes 09/17/24 14:00 IMPRESSION PRINTER.PKEL respirations Mental status Awake 09/17/24 14:00 IMPRESSION PRINTER.PKEL nausea No 09/17/24 14:00 IMPRESSION PRINTER.PKEL Vomiting No 09/17/24 14:00 IMPRESSION PRINTER.PKEL Anesthesia Postop Eval I: Fluid Summary Crystalloid volume administer 1,700 09/17/24 14:00 IMPRESSION PRINTER.PKEL (ml) Colloids volume administered ( ml) Blood Product volume administered (ml) Total IV fluid infused 1,700 09/17/24 14:00 IMPRESSION PRINTER.PKEL Anesthesia Postop Eval I: Summary Notes Anesthesia Complication No 09/17/24 14:00 IMPRESSION PRINTER.PKEL Anesthesia Complication Comment: Post-operative progress note Anesthesia: Postop Eval II Evaluation Mental status: Awake Pain Level: 2 nausea: No Vomiting: No 09/17/24 1635 a IMPRESSION PRINTER> Date _ Sada Jacques IMPRESSION PRINTER Cosigner Signature: Date CC: ~ Signed [facility]08-13-2025 Consult note Author Joe Clark [facility] Note Date/Time September 17, 2024 2: 00pm [facility] Medical Records Department [address] [place] [address] Anesthesia Postop Eval I 09/17/24 1358 MR#: [id number] Acct: [id number] Name: RAMONITA EL Rep #:[id number] : 1940 84 From: Joe Clark CRNA [...] CRNA Cosigner Signature: Date CC: ~ Signed [facility] Work Phone: 1(527) 308-343408-13-2025 Procedure note [facility] Medical Records Department [address] [place] [address] Operative Report 09/17/24 1331 MR#: [id number] Acct: [id number] Name: RAMONITA EL Rep #:[id number] : 1940 84 From: Mello Demarco MD PCP: RAYO Pillai Status:ADM I N Location: ICU [place] [address] 1- Operative Report (Standard) Operative Information Date of Procedure: 09/17/24 Pre-Operative Diagnosis: right carotid stenosis Post-Operative Diagnosis: same Surgery/Procedure Performed: right carotid endarterectomy performing arts road manager: Yes Queen Producer: Terell Schwarz Tasks completed by medical receptionist assistant: Opening, Closing, Opening & closing, Hemostasis: [...] carotid artery beyond the plaque. A 10 M[place]ese [place] shunt was then placed first distally in [...] Vistaseal topical hemostatic was applied and 19 M[address] channel ИВАН placed via separate stab incision. [...] RAYO Baron; Dr. Mello Demarco MD~ Signed [facility]08-13-2025 Consult note [facility] Medical Records Department [address] [place] [address] Anesthesia Postop Eval I 09/17/24 1358 MR#: [id number] Acct: [id number] Name: RAMONITA EL Rep #:[id number] : 1940 84 From: Joe Clark CRNA [...] Eval 1 completed: Yes 09/17/24 1400 y IMPRESSION PRINTER> Date _ Joe Clark IMPRESSION PRINTER Cosigner Signature: Date CC: ~ Signed [facility]08-13-2025 History and physical note Author Mello Demarco [facility] Note Date/Time September 17, 2024 10 :00am [facility] Medical Records Department [address] [place] [address] History & Physical Exam 09/17/24 1000 MR#: [id number] Acct: [id number] Name: RAMONITA EL Rep #:[id number] : 1940 84 From: Mello Demarco MD PCP: RAYO Pillai Status:ADM I N Location: [facility] AC-TB A-2 History and Physical Allergies [...] RAYO Baron; Dr. Mello Demarco MD~ Signed [facility] Work Phone: 1(963) 289-885108-13-2025 Consult note Author Ryne Vinson [facility] Note Date/Time September 17, 2024 9: 13am [facility] Medical Records Department [address] [place] [address] Pre-Anesthesia Evaluation 09/17/24 0903 MR#: [id number] Acct: [id number] Name: RAMONITA EL Rep #:[id number] : 1940 84 From: Ryne Self PCP: RAYO Pillai Status:ADM I N Y Race: C Location: [facility]- ASA Classification* ASA Classification ASA Classification: 3 [...] Carotid Endarterectomy Anesthesia History Anesthesia History - application development project manager: Anesthesia History - application development project manager Hx Hospitalization No 09/05/24 11:02 Any Problems [...] take am of surgery PONV PONV - application development project manager: PONV - application development project manager Female No 09/05/24 11:02 HX of Motion [...] 09/17/24 08:09 Respiratory Assessment Respiratory Assessment - application development project manager: Respiratory Tract Infection Hx - application development project manager Hx Respiratory Tract Infection No 09/05/24 11:02 STOP Sleep Apnea STOP Sleep Apnea - application development project manager: STOP Sleep Apnea - application development project manager Hx Hypertension Yes 09/05/24 11:02 Hx Sleep [...] Tobacco Use History Tobacco Use History - application development project manager: Tobacco Use History - application development project manager Tobacco Use Smoking Status Heavy Smoker (>10/day) 09/05/24 11:02 Hx Tobacco Use No 09/05/24 11:02 Years Smoking 60 09/05/24 11:02 Packs Smoked per Day 1 09/05/24 11:02 Smoking Cessation Date was within the last 15 years Hx Smoking Cessation Date Hx Smoking Cessation No 09/05/24 11:02 Counseling Hematologic Medial History Hematologic Hx - application development project manager: Hematologic Medical Hx - optical fabrication technician Hx of Blood Transfusion No 09/05/24 11:02 [...] confused, unrespo /Reproduction History /Reproductive History - application development project manager: /Reproductive Hx- application development project manager Hx Now No 09/05/24 11:02 Gestational Age [...] MD Cosigner Signature: Date CC: ~ Signed [facility] Work Phone: 1(985) 805-117208-13-2025 History and physical note [facility] Medical Records Department [address] [place] [address] History & Physical Exam 09/17/24 1000 MR#: [id number] Acct: [id number] Name: RAMONITA EL Rep #:[id number] : 1940 84 From: Mello Demarco MD PCP: Karla Baron STAGE MANAGERChar Status:ADM I N Location: [facility] AC-TB A-2 History and Physical Allergies [...] 09/17/24 1000 Cosigner Signature (if applicable): CC: STAGE MANAGER-C Karla Baron; Dr. Mello Demarco MD~ Signed [facility]08-13-2025 [facility] Medical Records Department [address] [place] [address] History Physical Exam 09/17/24 1000 MR#: [id number] Acct: [id number] Name: RAMONITA EL Rep #: [id number] : 1940 84 From: Mello Demarco MD [...] disequilibrium, No dizziness, No (more content not included)...[facility]08-13-2025 Consult note [facility] Medical Records Department [address] [place] [address] Pre-Anesthesia Evaluation 09/17/24902 MR#: [id number] Acct: [id number] Name: RAMONITA EL Rep #:[id number] : 1940 84 From: Ryne Self PCP: RAYO Pillai Status:ADM I N Y Race: C Location: [facility]- ASA Classification* ASA Classification ASA Classification: 3 [...] Carotid Endarterectomy Anesthesia History Anesthesia History - application development project manager: Anesthesia History - application development project manager Hx Hospitalization No 09/05/24 11:02 Any Problems [...] take am of surgery PONV PONV - application development project manager: PONV - application development project manager Female No 09/05/24 11:02 HX of Motion [...] 09/17/24 08:09 Respiratory Assessment Respiratory Assessment - application development project manager: Respiratory Tract Infection Hx - application development project manager Hx Respiratory Tract Infection No 09/05/24 11:02 STOP Sleep Apnea STOP Sleep Apnea - application development project manager: STOP Sleep Apnea - application development project manager Hx Hypertension Yes 09/05/24 11:02 Hx Sleep [...] Tobacco Use History Tobacco Use History - application development project manager: Tobacco Use History - application development project manager Tobacco Use Smoking Status Heavy Smoker (>10/day) 09/05/24 11:02 Hx Tobacco Use No 09/05/24 11:02 Years Smoking 60 09/05/24 11:02 Packs Smoked per Day 1 09/05/24 11:02 Smoking Cessation Date was within the last 15 years Hx Smoking Cessation Date Hx Smoking Cessation No 09/05/24 11:02 Counseling Hematologic Medial History Hematologic Hx - application development project manager: Hematologic Medical Hx - optical fabrication technician Hx of Blood Transfusion No 09/05/24 11:02 [...] confused, unrespo /Reproduction History /Reproductive History - application development project manager: /Reproductive Hx- application development project manager Hx Now No 09/05/24 11:02 Gestational Age [...] Ryne Abdiignguille Signature: Date CC: ~ Signed [place] [address]-25-2025 Telephone encounter Note* Telephone Encounter - Marina Mathews - 08/29/2024 8:54 AM EDT Patient asking to have 1 week of medication sent to his local pharmacy. Medication will not arrive before patient is out of medication. Local pharmacy: [facility]07-25-2025 Miscellaneous Notes* Telephone Encounter - Marina Mathews - 08/29/2024 8:54 AM EDT Patient asking to have 1 week of medication sent to his local pharmacy. Medication will not arrive before patient is out of medication. Local pharmacy: [facility] * Telephone Encounter - Danae Fuentes APRN.CNP [...] medication. Nemo Henry RN documented in this encounterOhiohealth [facility] Center07-25-2025 Telephone encounter Note * Telephone Encounter - Danae Fuentes APRN.CNP - 08/29/2024 8:44 AM EDT The following approved medication requests have been transmitted electronically. Requested Prescriptions Pending Prescriptions Disp Refills losartan (COZAAR) 25 mg tablet 14 tablet 0 Sig: Take 1 tablet by mouth once daily for 14 days. Danae Fuentes APRN.CNP [facility]07-25-2025 Telephone encounter Note* Telephone Encounter - Nemo Henry RN - 08/29/2024 8:32 AM EDT Patient calls to report he needs a refill of losartan. Patient has refills on file with [facility] but is completely out. Pended 14 day supply while patient figures out with [facility] when they are going to deliver medication. Nemo Henry RN [facility]07-01-2025 Telephone encounter Note* Telephone Encounter - Karla Baron APRN.CNP - 08/05/2024 4:40 PM EDT Noted. Karla Baron APRN.CNP [facility]07-01-2025 Miscellaneous Notes* Telephone Encounter - Karla Baron APRN.CNP - 08/05/2024 4:40 PM EDT Noted. Karla Baron APRN.CNP * Telephone Encounter - Heavenly Valdes LPN - 08/05/2024 3:51 PM EDT Unable to return call to Lloly at [facility] d/t no number listed. Phoned pt, notified [...] really needs to be addressed by the aquatics specialist that did the procedure. He is also following with pain management Dr Fitzgerald and being prescribed gabapentin and tramadol. * Telephone Encounter - Ching Mata LPN - 08/05/2024 2:07 PM EDT Lolly from [facility] calling she had called the patient in [...] by [facility] so he was cleared [facility] for surgery. Asking if he needs something for pain can STAGE MANAGER advise, she said he lives alone and needs some guidance on his medications. documented in this encounterOhiohealth [facility] Medical Center07-01-2025 Telephone encounter Note * Telephone Encounter - Heavenly Valdes LPN - 08/05/2024 3:51 PM EDT Unable to return call to Lolly at [facility] d/t no number listed. Phoned pt, notified of provider response. He states he stopped seeing Dr. Fitzgerald because the gabapentin and tramadol were not helpful. He states he saw Ortho and received an injection in his L knee and that has been very helpful. He plans to continue to follow up with Ortho. Heavenly Valdes LPN [facility]07-01-2025 Telephone encounter Note* Telephone Encounter - Karla Baron APRN.MARK - 08/05/2024 3:10 PM EDT Agree that he should only be taking no more than 8 tylenol a day. If the pain is related to the foot, then that really needs to be addressed by the aquatics specialist that did the procedure. He is also following with pain management Dr Fitzgerald and being prescribed gabapentin and tramadol. [facility]07-01-2025 Telephone encounter Note* Telephone Encounter - Ching Mata LPN - 08/05/2024 2:07 PM EDT Lolly from [facility] calling she had called the patient in [...] by [facility] so he was cleared [facility] for surgery. Asking if he needs something for pain can STAGE MANAGER advise, she said he lives alone and needs some guidance on his medications. [facility]06-30-2025 Evaluation note* Diagnosis Onset Date Resolution Status [...] 9:44am Spondylolisthesis acute November 14, 2024 10:04am [facility] Work Phone: 1(790) 822-147206-24-2025 Discharge summary [facility] Medical Records Department [address] [place] [address] Emergency Department Summary 07/29/24 MR#: [id number] Acct: [id number] Name: RAMONITA EL Rep #:[id number] : 1940 84 From: Nilesh Mccullough MD [...] or hospitalized or had any recent surgeries. [facility] Medical History Stenosis of right carotid artery [...] a small visible joint effusion. Reading Location: [facility] Discharge Plan Triage Chief Complaint: Lower Extremity [...] As soon as possible Karla Baron NP, STAGE MANAGER-C [Primary Care Provider] - Activity Restrictions/Additional Instructions: Start the prednisone prescription tomorrow 07/30 as you received the initial dosein the emergency department. Print Language: Bhutanese Disposition Disposition: Home, Self Care What to do if you have Problems For any increased pain, shortness of breath, bleeding, nausea or vomiting, chestpain, or any unexpected problems, contact your Primary Care Provider. Call [facility] ([phone]) or report tothe closest Emergency Room. Call 911 if necessary. 07/29/24 1642 Cosigner Signature (if applicable): CC: RAYO Baron ~ Signed [facility]06-24-2025 Radiology Diagnostic study note [facility] Imaging Services [address] [place], [place] [address] Knee 4 or More Views MR#: [id number] Acct: [id number] Name: RAMONITA EL Rep #: [id number] : 1940 M 84 From: Karthikeyan Alexandra MD PCP: RAYO Pillai Status: PRE E R Study:Knee 4 or More Views Date of Exam: 07/29/24 Exam# [id number] Ordering Dr: Alysia Mccullough MD PROCEDURE: KNEE [...] visible joint effusion. Reading Location: [facility] CC: STAGE MANAGER-C Karla Baron; Dr. Nilesh Mccullough MD ~ Instructor Looping: Signed [facility]06-20-2025 Radiology Diagnostic study note [facility] Imaging Services [address] [place], [place] [address] Lumbar Spine 2 or 3 Views MR#: [id number] Acct: [id number] Name: RAMONITA EL Rep #: [id number] : 1940 M 84 From: Rosangela Barger MD PCP: Karla Baron, ECTOR-C Status: REG C LI Study:Lumbar Spine 2 or 3 Views Date of Exam: 07/24/24 Exam# [id number] Ordering Dr: Corrina Fitzgerald MD PROCEDURE: LUMBAR [...] lordosis. S shaped degenerative scoliosis. Reading Location: [place] [address] CC: STAGE MANAGER-C Karla Baron; Dr. Chandni Fitzgerald MD ~ Instructor Looping: Signed [facility]06-12-2025 Evaluation note* Diagnosis Onset Date Resolution Status [...] stenosis, right chronic A ugust 2024 9:13am [facility] Work Phone: 1(815) 287-252105-29-2025 Radiology Diagnostic study note [facility] Imaging Services [address] [place], [place] [address] CTA Head AND Neck W/ Contrast MR#: [id number] Acct: [id number] Name: RAMONITA EL Rep #: [id number] : 1940 M 84 From: Anthony Berrios MD PCP: Karla Baron, ECTOR-C Status: REG C MALVIN Study:CTA Head AND Neck W/ Contrast Date of E xam: 07/03/24 Exam# [id number] Ordering Dr: Barney Strong PROCEDURE: CTA HEAD [...] Calcific plaques. LEFT Vertebral: Calcific plaques. Anatomy: [place] anatomy is normal. Aneurysm or [...] involving both internal carotid arteries. Reading Location: [id number] CC: RAYO Baron; KRISTI Garza ~ Instructor Looping: Signed [facility]05-20-2025 NoteHNO ID: [id number] Author: KARLA BARON APRN.HOTEL RESERVATIONIST Service: ? 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 acute Apri l 2024 10:38am [facility] Work Phone: 1(931) 643-840204-29-2025 Evaluation note* Diagnosis Onset Date Resolution Status Admit Date 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 acute Apri l 2024 10:38am Carotid stenosis, right chronic A pril 2024 10:38am Carotid stenosis, right chronic J une 2024 1:47pm [facility] Work Phone: 1(589) 202-578704-29-2025 Evaluation note* Diagnosis Onset Date Resolution Status Admit Date 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 acute Apri l 2024 10:38am Carotid stenosis, right chronic A pril 2024 10:38am Carotid stenosis, right chronic J une 2024 1:47pm Encounter for pre-operative cardiovascular clearance acute July 302024 1:17pm [facility] Work Phone: 1(931) 462-193804-29-2025 Evaluation note* Diagnosis Onset Date Resolution Status [...] 1:17pm Essential hypertension chronic Ju 2024 1:17pm [facility] Work Phone: 1(793) 575-820804-29-2025 Evaluation note* Diagnosis Onset Date Resolution Status [...] left knee acute August 04, 2024 1:43pm [facility] Work Phone: 1(823) 997-398004-29-2025 Evaluation note* Diagnosis Onset Date Resolution Status [...] left knee inactive J une 2024 1:43pm [facility] Work Phone: 1(900) 916-463404-29-2025 Evaluation note* Diagnosis Onset Date Resolution Status [...] stenosis, right chronic A ugust 2024 1:25pm [facility] Work Phone: 1(135) 802-359504-23-2025 Miscellaneous Notes* Telephone Encounter - Sandy Cardoza RN - 05/28/2024 2:54 PM EDT Called to confirm that fax went through. Per Smiley in scheduling, she received the paperwork and faxed it to [facility]. She gave their phone number of [phone]. Called and had to leave a msg. [...] yesterday and she sent a referral to [facility] V[facility] Surgery while he was in the office. He states he spoke with them and they did not receive any referralor paperwork. Called and spoke with scheduling for vascular surgery and they state they did not receive anything. Referral order, carotid artery ultrasound results and Karla's office note faxed to [facility] vascular surgery at [phone]. documented in this encounterOhio[facility] Center04-23-2025 Telephone encounter Note * Telephone Encounter - Sandy Cardoza RN - 05/28/2024 2:54 PM EDT Called to confirm that fax went through. Per Smiley in scheduling, she received the paperwork and faxed it to [facility]. She gave their phone number of [phone]. Called and had to leave a msg. LM stating pt's name and and the need for referral and to confirm they had received the order. Left the pt's phone number and asked them to contact him. [facility]04-23-2025 Telephone encounter Note* Telephone Encounter - Sandy Cardoza RN - 05/28/2024 2:15 PM EDT Pt calling in and states he saw Karla Tod yesterday and she sent a referral to [facility] V[facility] Surgery while he was in the office. He states he spoke with them and they did not receive any referralor paperwork. Called and spoke with scheduling for vascular surgery and they state they did not receive anything. Referral order, carotid artery ultrasound results and Karla's office note faxed to [facility] vascular surgery at [phone]. [facility]04-22-2025 NoteHNO ID: [id number] Author: KARLA BARON APRN.HOTEL RESERVATIONIST Service: ? Author Type: Nurse Practitioner Type: [...] more they could do. - Has seen radiologic electronic specialist in the past but is reluctant to [...] Most recent visit was last week at [facility] for a medication lodged in the throat. 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 [facility]04-22-2025 History of Present illness Narrative* Karla Baron APRN.HOTEL RESERVATIONIST - 05/27/2024 5:16 PM EDT This is [...] more they could do. - Has seen radiologic electronic specialist in the past but is reluctant to [...] Most recent visit was last week at [facility] for a medication lodged in the throat. [...] episode of care unspecified 08/10/06 STENT placed [facility] Alcohol abuse 05/22/2013 Chronic anxiety 10/22/2017 [...] gesture Radius fracture 06/21/2013 See scanned documents [facility] Tobacco abuse 05/22/2013 Urinary calculus, unspecified [...] discussion. - Referral to vascular surgery at [facility]; faxed referral and previous study notes. - [...] specialists Dr. Fitzgerald and Dr. Gonzalez in [place] if pain persists. - Follow-up in one [...] worsening/no improvement. Karla Baron APRN.CNP Recording using [employer] software for draft documentation of the visit was discussed with the patient/authorized financial service representative; all questions welcomed and answered. Patient/authorized financial service representative agreed to proceed documented in this encounterOhiohealth [facility] Medical Center04-22-2025 Instructions* Patient Instructions* Karla Baron [...] A referral to a vascular specialist at [facility] has been faxed along with your study [...] management(e.g., Dr. Fitzgerald or Dr. Gonzalez in [facility]). documented in this encounterOhiohealth [facility] Center04-13-2025 Radiology Diagnostic study note [facility] Imaging Services [address] [place] [address] Chest 1 View (Portable) MR#: [id number] Acct: [id number] Name: RAMONITA EL Rep #: [id number] : 1940 M 84 From: Gerald Flynn MD PCP: RAYO Pillai Status: REG E R Study:Chest 1 View (Portable) Date of Exam: 05/18/24 Exam# [id number] Ordering Dr: Gagan Matthews DO PROCEDURE: CHEST [...] Pneumonia to be ruled out. Reading Location: [id number] CC: RAYO Baron; Dr. Lucien Matthews DO ~ Instructor Looping: Signed [facility]04-13-2025 Discharge summary [facility] Medical Records Department [address] [place] [address] Emergency Department Summary 05/18/24 MR#: [id number] Acct: [id number] Name: RAMONITA EL Rep #:[id number] : 1940 84 From: Lucien Post PCP: [...] Method Room Air Room Air Room Air [facility] Narrative Medical decision making narrative: HISTORY OF [...] reviewed, Vital signs reviewed Constitutional: please see [facility] HENT: MMM Eyes: Pupils equal round [...] History obtained from others: none Consults: none [facility] Narrative: The patient was initially hypertensive [...] with normal sinus rhythm, normal axis, prolonged MN interval, first-degree block, QTc 459, no obvious [...] a.m. physician This note was generated with GLOBALBASED TECHNOLOG[employer]ation software. It may contain incorrectwords, spelling, and [...] 75.2 H Lymph % (Auto) 14.4 L [place] % (Auto) 8.5 Eos % (Auto) 0.8 [...] Karla Baron NP Referrals: Karla Baron NP, STAGE MANAGER-C [Primary Care Provider] - Activity Restrictions/Additional Instructions: [...] for further outpatient evaluationand management. Print Language: Bhutanese Disposition Disposition: Home, Self Care What to do if you have Problems For any increased pain, shortness of breath, bleeding, nausea or vomiting, chestpain, or any unexpected problems, contact your Primary Care Provider. Call [facility] ([phone]) or report tothe closest Emergency Room. Call 911 if necessary. 05/18/24 0658 Cosigner Signature (if applicable): CC: RAYO Baron ~ Signed [facility]01-28-2025 Miscellaneous Notes* Telephone Encounter - Sandy Cardoza RN - 03/04/2024 8:21 AM EST Pt returned the call and notified of results and Karla Baron's explanations. He is notified of need to repeat PSA lab in a month and transferred to [facility] in scheduling to set up [...] to get this done. documented in this encounterOhiohealth [facility] Center01-28-2025 Telephone encounter Note * Telephone Encounter - Sandy Cardoza RN - 03/04/2024 8:21 AM EST Pt returned the call and notified of results and Karla Baron's explanations. He is notified of need to repeat PSA lab in a month and transferred to [facility] in scheduling to set up carotid ultrasound. [facility]01-27-2025 Telephone encounter Note* Telephone Encounter - Kay Anguiano RN - 03/03/2024 7:12 PM EST Called and left a voicemail for the Patient to call back and ask for a nurse to receive the providers message. Kay Anguiano RN [facility]01-27-2025 Telephone encounter Note* Telephone Encounter [...] an order in to get this done. [facility]01-24-2025 Instructions* Patient Instructions* Karla Baron APRN.MARK - 02/29/2024 2:21 PM EST Try the CeraVe, Cetophil or Aveeno. Continue the same medication. We'll let you know when we receive the labwork results. If the shoulder starts bothering you again, there is a referral placed to ortho that you can schedule. documented in this encounterOhiohealth [facility] Medical Center01-24-2025 NoteHNO ID: [id number] Author: KARLA BARON APRN.MARK Service: ? Author [...] episode of care unspecified 08/10/06 STENT placed [facility] Alcohol abuse 05/22/2013 Chronic anxiety 10/22/2017 [...] gesture Radius fracture 06/21/2013 See scanned documents [facility] Tobacco abuse 05/22/2013 Urinary calculus, unspecified [...] auscultation. No wheezing, rhonch (more content not included)...[facility]01-24-2025 History of Present illness Narrative* Karla Baron APRN.HOTEL RESERVATIONIST - 02/29/2024 2:13 PM EST This is [...] episode of care unspecified 08/10/06 STENT placed [facility] Alcohol abuse 05/22/2013 Chronic anxiety 10/22/2017 [...] gesture Radius fracture 06/21/2013 See scanned documents [facility] Tobacco abuse 05/22/2013 Urinary calculus, unspecified [...] needed for worsening/no improvement. Karla Baron APRN.HOTEL RESERVATIONIST documented in this encounterOhiohealth Grant Medical Center01-22-2025 Telephone encounter Note * Telephone Encounter - Sandy Cardoza RN - 02/27/2024 4:24 PM EST Pt returned the call and notified of prescription refill arriving tomorrow. Pt took a couple BP andreadings were 156/71 and 142/72. [facility]01-22-2025 Miscellaneous Notes* Telephone Encounter - [...] nurse to call back Please call patient [phone] * Telephone Encounter - Ashley Grant RN [...] understanding. Ashley Grant RN documented in this encounterOhiohealth Grant Medical Center01-22-2025 Telephone encounter Note * Telephone Encounter - Noemy Dubon - 02/27/2024 3:46 PM EST Please call patient , patient did return the call, we were on hold several minutes , advised patient I will send message for nurse to call back Please call patient [phone] [facility]01-22-2025 Telephone encounter Note* Telephone Encounter [...] nurse for this message. Ashley Grant RN [facility]01-22-2025 Telephone encounter Note* Telephone Encounter [...] well. Patient voiced understanding. Ashley Grant RN [facility]01-16-2025 Telephone encounter Note* Telephone Encounter - Danae Fuentes APRN.CNP - 02/21/2024 4:47 PM EST The following approved medication requests have been transmitted electronically. Requested Prescriptions Pending Prescriptions Disp Refills losartan (COZAAR) 25 mg tablet 90 tablet 3 Sig: Take 1 tablet by mouth once daily. Danae Fuentes APRN.CNP [facility]01-16-2025 Miscellaneous Notes* Telephone Encounter - [...] 21, 2024 8:15 AM documented in this encounterOhiohealth Grant Medical Center01-16-2025 Telephone encounter Note * Telephone [...] Marina Mathews February 21, 2024 8:15 AM [facility]12-31-2024 Telephone encounter Note* Telephone Encounter - Ashley Grant RN - 02/05/2024 8:10 AM EST [facility]. Pt [...] other recommendations are advised. Ashley Grant RN [facility]12-31-2024 Miscellaneous Notes* Telephone Encounter - Ashley Grant RN - 02/05/2024 8:10 AM EST [facility] pain. Pt [...] advised. Ashley Grant RN documented in this encounterOhiohealth [facility] Medical Center12-31-2024 Telephone encounter Note * Telephone Encounter - Ashley Grant RN - 02/05/2024 8:09 AM EST Patient returned call and given provider's message below and patient verbalized understanding. Patient plans to keep appt with Dr. Johnson for 02/18/24. Amy Grant RN [facility]12-31-2024 Miscellaneous Notes* Telephone Encounter - [...] 9:50 AM EST Patient was seen at [facility] ER on 01/29 cath was placed and advised for removal in 3-5 days. I did check with urology [facility]24 [facility]. Patient called Dr Johnson and there first opening was 02/17 and that is why he was calling us for a sooner appointment , patient upset PCP would not remove sooner and declined to arrange his ER follow up documented in this encounterOhiohealth Grant Medical Center12-30-2024 Telephone encounter Note * Telephone Encounter - Kay Anguiano RN - 02/04/2024 6:12 PM EST Called and left a voicemail for the Patient to call back and ask for a nurse to receive the providers message. Kay Anguiano RN [facility] [facility] Telephone encounter Note* Telephone Encounter [...] urinate again once the catheter is removed. [facility]12-30-2024 Telephone encounter Note* Telephone Encounter - Ashley Stoddard - 02/04/2024 9:50 AM EST Patient was seen at [facility] ER on 01/29 cath was placed and advised for removal in 3-5 days. I did check with urology [facility]24 at [facility]. Patient called Dr Johnson and there first opening was 02/17 and that is why he was calling us for a sooner appointment , patient upset PCP would not remove sooner and declined to arrange his ER follow up [facility]12-27-2024 NoteHNO ID: [id number] Author: GUS SANCHEZ APRN.HOTEL RESERVATIONIST Service: ? Author Type: Nurse Practitioner Type: [...] any other injuries. No numbness or tingling. [id number]. No surgeries fractures previously. Past medical history prescription medications allergies reviewed. .Patient presents with: Pain (Shoulder Pain): R shoulder pain x1 day, pushed self out of chair and felt pop PAST MEDICAL HISTORY Diagnosis Date Acute myocardial infarction of anterolateral wall, episode of care unspecified 08/10/06 STENT placed [facility] Alcohol abuse 05/22/2013 Chronic anxiety 10/22/2017 [...] gesture Radius fracture 06/21/2013 See scanned documents [facility] Tobacco abuse 05/22/2013 Urinary calculus, unspecified [...] Musculoskeletal: Right shoulder: No (more content not included)...[facility] 02-01-2024 History of Present illness Narrative* Gus Sanchez, STACY.HOTEL RESERVATIONIST - 02/01/2024 9:02 AM EST Subjective HPI [...] any other injuries. No numbness or tingling. [id number]. No surgeries fractures previously. Past medical history prescription medications allergies reviewed. .Patient presents with: Pain (Shoulder Pain): R shoulder pain x1 day, pushed self out of chair and felt pop PAST MEDICAL HISTORY Diagnosis Date Acute myocardial infarction of anterolateral wall, episode of care unspecified 08/10/06 STENT placed [facility] Alcohol abuse 05/22/2013 Chronic anxiety 10/22/2017 [...] gesture Radius fracture 06/21/2013 See scanned documents [facility] Tobacco abuse 05/22/2013 Urinary calculus, unspecified [...] of care. This note was generated using [employer] software. It may contain errors in wording, punctuation, or spelling. Gus Sanchez APRN.HOTEL RESERVATIONIST documented in this encounterOhiohealth Grant Medical Center12-27-2024 History of Present illness Narrative* [...] PATIENT PRESENTS WITH AN IMPLANTABLE OR ATTACHED CALL CENTER SUPPORT REPRESENTATIVE: No RADIOLOGY DEPARTMENT: General X-ray: Exam(s) Completed: Upper Extremity X- Ray(s): Shoulder, AP / TRUE AP / AXILLARY right PERIPHERAL IV DATA: Not applicable SIGNED BY: RT Fili(Odilia) February 01, 2024 8:54 AM documented in this encounterOhiohealth Grant Medical Center12-27-2024 NoteHNO ID: [id number] Author: CLINT LUCERO RT(R) Service: Radiology Author [...] PATIENT PRESENTS WITH AN IMPLANTABLE OR ATTACHED CALL CENTER SUPPORT REPRESENTATIVE: No RADIOLOGY DEPARTMENT: General X-ray: Exam(s) Completed: Upper Extremity X-Ray(s): Shoulder, AP / TRUE AP / AXILLARY right PERIPHERAL IV DATA: Not applicable SIGNED BY: RT Fili(Odilia) February 01, 2024 8:[address] [facility]12-16-2024 History of Present illness Narrative* Dave Mccray APRN.HOTEL RESERVATIONIST - 01/21/2024 1:00 PM EST Chief Complaint Patient presents with: ER F/U HPI Ramonita El is a 83 year old male who presents here today for ER Follow Up. Patient here for emergency room follow-up. Patient went to [facility] on 01/15 for complaints of bleeding. [...] needed. This note was partly generated using [employer] voice recognition dictation and may contain some misspelled or inaccurate words missed on review. documented in this encounterOhiohealth Grant Medical Center12-16-2024 NoteHNO ID: [id number] Author: DAVE MCCRAY APRN.CNP Service: ? Author Type: Nurse Practitioner Type: Progress Notes Filed: 01/21/2024 13:33 Note Text: Chief Complaint Patient presents with: ER F/U HPI Ramonita El is a 83 year old male who presents here today for ER Follow Up. Patient here for emergency room follow-up. Patient went to [facility] on 01/15 for complaints of bleeding. [...] HCL 25 MG TABLET Dave Mccray APRN.HOTEL RESERVATIONIST RTO in 1 months, sooner if needed. This note was partly generated using [employer] voice recognition dictation and may contain some misspelled or inaccurate words missed on review.[facility]11-27-2024 History of Present illness Narrative* Tomeka Mclaughlin APRN.HOTEL RESERVATIONIST - 01/02/2024 11:00 AM EST FOLLOW UP VISIT - ENDOSCOPY Ramonita El 1940 [id number] REFERRING PHYSICIAN: Star Grande [address] [facility] [address] Ramonita El is a patient I am [...] improvement. Tomeka Mclaughlin APRN.MARK documented in this encounterOhiohealth Grant Medical Center11-27-2024 NoteHNO ID: [id number] Author: TOMEKA MCLAUGHLIN APRN.CNP Service: ? Author Type: Nurse Practitioner Type: Progress Notes Filed: 01/02/2024 11:02 Note Text: FOLLOW UP VISIT - ENDOSCOPY Ramonita Swain Sienna 1940 [id number] REFERRING PHYSICIAN: Star Grande [address] [facility] [address] Ramonita El is a patient I am [...] as needed for worsening/no improvement. Tomeka Mclaughlin APRN.CNPLima [facility]11-[facility]24 Note* Discharge Instr - Nursing - Darcy Bennett RN - 12/26/2023 12:54 PM EST The patient received a copy of Colonoscopy discharge instructions that contain information for how to contact the physician who performed the procedure and when to seek medical care. [facility]11-20-2024 Miscellaneous Notes* Discharge Instr - Nursing - Darcy Bennett RN - 12/26/2023 12:54 PM EST The patient received a copy of Colonoscopy discharge instructions that contain information for how to contact the physician who performed the procedure and when to seek medical care. documented in this encounterOhiohealth Grant Medical Center11-20-2024 NoteHNO ID: [id number] Author: DARCY BENNETT RN Service: ? Author Type: Registered Nurse Type: Nursing Progress Note Filed: 12/26/2023 12:51 Note Text: Oxygen applied at 3L per NC for pulse ox readings in low 90's while sleeping. [facility]11-20-2024 Nurse Note* Darcy Bennett RN - 12/26/2023 12:30 PM EST Oxygen applied at 3L per NC for pulse ox readings in low 90's while sleeping. [facility]11-20-2024 Nurse Note* Darcy Bennett RN [...] side. No family present. documented in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 SURGERY OFFICE/OUTPATIENT [facility] 60-74 MINUTES Ida Hatfield PA-C [address] [place] [address] Referral ID Status Reason Start Date Expiration Date Visits Requested Visits Authorized [id number] Authorized PCP Requested Referral 07/27/2022 07/27/2023 1 1 Specialty Diagnoses / Procedures Referred By Contac t Referred To Contact Orthopedics Diagnoses Dupuytren's contracture of left hand Procedures CONSULT TO ORTHOPAEDICS OFFICE/OUTPATIENT [facility] 60 MINUTES Ida Hatfield PA-C [address] [place] [address] Referral ID Status Reason Start Date Expiration Date Visits Requested Visits Authorized [id number] Authorized PCP Requested Referral 05/24/2023 05/23/2024 1 1 Specialty Diagnoses / Procedures Referred By Contac t Referred To Contact Diagnoses Primary insomnia Procedures CONSULT TO SLEEP MEDICINE - ADULT OFFICE/OUTPATIENT [facility] MDM 60 MINUTES Dave Mccray, CORRECTIONS IDENTIFICATION TECHNICIAN.HOTEL RESERVATIONIST [address] [place] [address] Referral ID Status Reason Start Date Expiration Date Visits Requested Visits Authorized [id number] Authorized PCP Requested Referral 4 01/20/2025 1 1 Specialty Diagnoses / Procedures Referred By Contac t Referred To Contact Orthopedics Diagnoses Acute pain of right shoulder Procedures CONSULT TO ORTHOPAEDICS OFFICE/OUTPATIENT [facility] MDM 60 MINUTES Gus Sanchez, CORRECTIONS IDENTIFICATION TECHNICIAN.HOTEL RESERVATIONIST [address] [place] [address] Referral ID Status Reason Start Date Expiration Date Visits Requested Visits Authorized [id number] Authorized PCP Requested Referral 4 01/31/2025 1 1 Specialty Diagnoses / Procedures Referred By Contac t Referred To Contact XR IMAGING Diagnoses Acute pain of right shoulder Procedures XR SHOULDER GENERAL 3V OR MORE AP/TRUE AP/OTHER RIGHT RADEX SHOULDER COMPLETE MINIMUM 2 VIEWS Gus Sanchez, CORRECTIONS IDENTIFICATION TECHNICIAN.HOTEL RESERVATIONIST [address] [place] [address] [place] [address] Referral ID Status Reason Start Date Expiration Date V isits Requested Visits Authorized [id number] Closed Auto-Generate d Referral 02/01/2024 03/02/2025 1 [...] or prosecute any alcohol or drug abuse patient.[facility] CenterIn the event this information is protected by the Federal Confidentiality of Alcohol and Drug Abuse Patient Records regulations: The Federal rules restrict any use of the information to criminally investigate or prosecute any alcohol or drug abuse patient.[facility] CenterIn the event this information is protected by the Federal Confidentiality of Alcohol and Drug Abuse Patient Records regulations: The Federal rules restrict any use of the information to criminally investigate or prosecute any alcohol or drug abuse patient.[facility] CenterIn the event this information is protected by the Federal Confidentiality of Alcohol and Drug Abuse Patient Records regulations: The Federal rules restrict any use of the information to criminally investigate or prosecute any alcohol or drug abuse patient.[facility] CenterIn the event this information is protected by the Federal Confidentiality of Alcohol and Drug Abuse Patient Records regulations: The Federal rules restrict any use of the information to criminally investigate or prosecute any alcohol or drug abuse patient.[facility] CenterIn the event this information is protected by the Federal Confidentiality of Alcohol and Drug Abuse Patient Records regulations: The Federal rules restrict any use of the information to criminally investigate or prosecute any alcohol or drug abuse patient.[facility] CenterIn the event this information is protected by the Federal Confidentiality of Alcohol and Drug Abuse Patient Records regulations: The Federal rules restrict any use of the information to criminally investigate or prosecute any alcohol or drug abuse patient.[facility] CenterIn the event this information is protected by the Federal Confidentiality of Alcohol and Drug Abuse Patient Records regulations: The Federal rules restrict any use of the information to criminally investigate or prosecute any alcohol or drug abuse patient.[facility] CenterIn the event this information is protected by the Federal Confidentiality of Alcohol and Drug Abuse Patient Records regulations: The Federal rules restrict any use of the information to criminally investigate or prosecute any alcohol or drug abuse patient.[facility] CenterIn the event this information is protected by the Federal Confidentiality of Alcohol and Drug Abuse Patient Records regulations: The Federal rules restrict any use of the information to criminally investigate or prosecute any alcohol or drug abuse patient.[facility] CenterIn the event this information is protected by the Federal Confidentiality of Alcohol and Drug Abuse Patient Records regulations: The Federal rules restrict any use of the information to criminally investigate or prosecute any alcohol or drug abuse patient.[facility] CenterIn the event this information is protected by the Federal Confidentiality of Alcohol and Drug Abuse Patient Records regulations: The Federal rules restrict any use of the information to criminally investigate or prosecute any alcohol or drug abuse patient.[facility] CenterIn the event this information is protected by the Federal Confidentiality of Alcohol and Drug Abuse Patient Records regulations: The Federal rules restrict any use of the information to criminally investigate or prosecute any alcohol or drug abuse patient.[facility] CenterIn the event this information is protected by the Federal Confidentiality of Alcohol and Drug Abuse Patient Records regulations: The Federal rules restrict any use of the information to criminally investigate or prosecute any alcohol or drug abuse patient.[facility] CenterIn the event this information is protected by the Federal Confidentiality of Alcohol and Drug Abuse Patient Records regulations: The Federal rules restrict any use of the information to criminally investigate or prosecute any alcohol or drug abuse patient.[facility] CenterIn the event this information is protected by the Federal Confidentiality of Alcohol and Drug Abuse Patient Records regulations: The Federal rules restrict any use of the information to criminally investigate or prosecute any alcohol or drug abuse patient.[facility] CenterIn the event this information is protected by the Federal Confidentiality of Alcohol and Drug Abuse Patient Records regulations: The Federal rules restrict any use of the information to criminally investigate or prosecute any alcohol or drug abuse patient.[facility] CenterIn the event this information is protected by the Federal Confidentiality of Alcohol and Drug Abuse Patient Records regulations: The Federal rules restrict any use of the information to criminally investigate or prosecute any alcohol or drug abuse patient.[facility] CenterIn the event this information is protected by the Federal Confidentiality of Alcohol and Drug Abuse Patient Records regulations: The Federal rules restrict any use of the information to criminally investigate or prosecute any alcohol or drug abuse patient.[facility] CenterIn the event this information is protected by the Federal Confidentiality of Alcohol and Drug Abuse Patient Records regulations: The Federal rules restrict any use of the information to criminally investigate or prosecute any alcohol or drug abuse patient.[facility] CenterIn the event this information is protected by the Federal Confidentiality of Alcohol and Drug Abuse Patient Records regulations: The Federal rules restrict any use of the information to criminally investigate or prosecute any alcohol or drug abuse patient.[facility] CenterIn the event this information is protected by the Federal Confidentiality of Alcohol and Drug Abuse Patient Records regulations: The Federal rules restrict any use of the information to criminally investigate or prosecute any alcohol or drug abuse patient.[facility] CenterIn the event this information is protected by the Federal Confidentiality of Alcohol and Drug Abuse Patient Records regulations: The Federal rules restrict any use of the information to criminally investigate or prosecute any alcohol or drug abuse patient.[facility] CenterIn the event this information is protected by the Federal Confidentiality of Alcohol and Drug Abuse Patient Records regulations: The Federal rules restrict any use of the information to criminally investigate or prosecute any alcohol or drug abuse patient.[facility] CenterIn the event this information is protected by the Federal Confidentiality of Alcohol and Drug Abuse Patient Records regulations: The Federal rules restrict any use of the information to criminally investigate or prosecute any alcohol or drug abuse patient.[facility] CenterIn the event this information is protected by the Federal Confidentiality of Alcohol and Drug Abuse Patient Records regulations: The Federal rules restrict any use of the information to criminally investigate or prosecute any alcohol or drug abuse patient.[facility] CenterIn the event this information is protected by the Federal Confidentiality of Alcohol and Drug Abuse Patient Records regulations: The Federal rules restrict any use of the information to criminally investigate or prosecute any alcohol or drug abuse patient.[facility] CenterIn the event this information is protected by the Federal Confidentiality of Alcohol and Drug Abuse Patient Records regulations: The Federal rules restrict any use of the information to criminally investigate or prosecute any alcohol or drug abuse patient.[facility] CenterIn the event this information is protected by the Federal Confidentiality of Alcohol and Drug Abuse Patient Records regulations: The Federal rules restrict any use of the information to criminally investigate or prosecute any alcohol or drug abuse patient.[facility] CenterIn the event this information is protected by the Federal Confidentiality of Alcohol and Drug Abuse Patient Records regulations: The Federal rules restrict any use of the information to criminally investigate or prosecute any alcohol or drug abuse patient.[facility] CenterIn the event this information is protected by the Federal Confidentiality of Alcohol and Drug Abuse Patient Records regulations: The Federal rules restrict any use of the information to criminally investigate or prosecute any alcohol or drug abuse patient.[facility] CenterIn the event this information is protected by the Federal Confidentiality of Alcohol and Drug Abuse Patient Records regulations: The Federal rules restrict any use of the information to criminally investigate or prosecute any alcohol or drug abuse patient.[facility] CenterIn the event this information is protected by the Federal Confidentiality of Alcohol and Drug Abuse Patient Records regulations: The Federal rules restrict any use of the information to criminally investigate or prosecute any alcohol or drug abuse patient.[facility] CenterIn the event this information is protected by the Federal Confidentiality of Alcohol and Drug Abuse Patient Records regulations: The Federal rules restrict any use of the information to criminally investigate or prosecute any alcohol or drug abuse patient.[facility] CenterIn the event this information is protected by the Federal Confidentiality of Alcohol and Drug Abuse Patient Records regulations: The Federal rules restrict any use of the information to criminally investigate or prosecute any alcohol or drug abuse patient.[facility] CenterIn the event this information is protected by the Federal Confidentiality of Alcohol and Drug Abuse Patient Records regulations: The Federal rules restrict any use of the information to criminally investigate or prosecute any alcohol or drug abuse patient.[facility] CenterIn the event this information is protected by the Federal Confidentiality of Alcohol and Drug Abuse Patient Records regulations: The Federal rules restrict any use of the information to criminally investigate or prosecute any alcohol or drug abuse patient.[facility] CenterIn the event this information is protected by the Federal Confidentiality of Alcohol and Drug Abuse Patient Records regulations: The Federal rules restrict any use of the information to criminally investigate or prosecute any alcohol or drug abuse patient.[facility] CenterIn the event this information is protected by the Federal Confidentiality of Alcohol and Drug Abuse Patient Records regulations: The Federal rules restrict any use of the information to criminally investigate or prosecute any alcohol or drug abuse patient.[facility] the event this information is protected by the Federal Confidentiality of Alcohol and Drug Abuse Patient Records regulations: The Federal rules restrict any use of the information to criminally investigate or prosecute any alcohol or drug abuse patient.[facility] CenterIn the event this information is protected by the Federal Confidentiality of Alcohol and Drug Abuse Patient Records regulations: The Federal rules restrict any use of the information to criminally investigate or prosecute any alcohol or drug abuse patient.[facility] CenterIn the event this information is protected by the Federal Confidentiality of Alcohol and Drug Abuse Patient Records regulations: The Federal rules restrict any use of the information to criminally investigate or prosecute any alcohol or drug abuse patient.[facility] CenterIn the event this information is protected by the Federal Confidentiality of Alcohol and Drug Abuse Patient Records regulations: The Federal rules restrict any use of the information to criminally investigate or prosecute any alcohol or drug abuse patient.[facility] CenterIn the event this information is protected by the Federal Confidentiality of Alcohol and Drug Abuse Patient Records regulations: The Federal rules restrict any use of the information to criminally investigate or prosecute any alcohol or drug abuse patient.[facility] CenterIn the event this information is protected by the Federal Confidentiality of Alcohol and Drug Abuse Patient Records regulations: The Federal rules restrict any use of the information to criminally investigate or prosecute any alcohol or drug abuse patient.[facility] CenterIn the event this information is protected by the Federal Confidentiality of Alcohol and Drug Abuse Patient Records regulations: The Federal rules restrict any use of the information to criminally investigate or prosecute any alcohol or drug abuse patient.[facility] CenterIn the event this information is protected by the Federal Confidentiality of Alcohol and Drug Abuse Patient Records regulations: The Federal rules restrict any use of the information to criminally investigate or prosecute any alcohol or drug abuse patient.[facility] Reason for Visit (unrecogniz ed [...] Procedures CONSULT TO ORTHOPAEDICS OFFICE/[facility] Ida Hatfield PA-C [address] [place] [address] Referral ID Status Reason Start Date Expiration Date V isits Requested Visits Authorized [id number] Closed PCP Requested Referral 05/24/2023 05/23/2024 1 [...] HIGH MDM 60 MINUTES Danae Fuentes APRN.CNP [address] [place] [address] Referral ID Status Reason Start Date Expiration Date V isits Requested Visits Authorized [id number] Closed PCP Requested Referral 12/03/2023 12/02/2024 1 [...] month follow up Reason Comments Consult to [facility] Vascular Surg ren Reason Onset Date Comments Refill Request 08/29/2024 Reason Onset Date Comments Refill Request 10/03/2024 Care Teams (unrecognized sec tion and content) Geodetic Technician Relationship Specialty Start Date End Date Ida Hatfield PA-C [address] [place] [address] PCP - General Family Medicine 09/23/20 Geodetic Technician Relationship Specialty Start Date End Date Ida Hatfield PA-C [address] [place] [address] PCP - General Family Medicine 09/23/20 Geodetic Technician Relationship Specialty Start Date End Date Ida Hatfield PA-C [address] [place] [address] PCP - General Family Medicine 09/23/20 Geodetic Technician Relationship Specialty Start Date End Date Ida Hatfield PA-C [address] [place] [address] PCP - General Family Medicine 09/23/20 Geodetic Technician Relationship Specialty Start Date End Date Ida Hatfield PA-C [address] [place] [address] PCP - General Family Medicine 09/23/20 Geodetic Technician Relationship Specialty Start Date End Date Ida Hatfield PA-C [address] [place] [address] PCP - General Family Medicine 09/23/20 Geodetic Technician Relationship Specialty Start Date End Date Ida Hatfield PA-C [address] [place] [address] PCP - General Family Medicine 09/23/20 Geodetic Technician Relationship Specialty Start Date End Date Ida Hatfield PA-C [address] [place] [address] PCP - General Family Medicine 09/23/20 Geodetic Technician Relationship Specialty Start Date End Date Ida Hatfield PA-C [address] [place] [address] PCP - General Family Medicine 09/23/20 Team Status: Active Member Role Status Dates Dr. Ismael Ruiz III, MD Family Provider Active KRISTI Harding Primary Care Provider Active Team Status: Inactive Member Role Status Dates KRISTI Harding Primary Care Provider Active Dr. Willis Mera MD Attending Provider, Referring Provider Active Geodetic Technician Relationship Specialty Start Date End Date Ida Hatfield PA-C [address] [place] [address] PCP - General Family Medicine 09/23/20 Geodetic Technician Relationship Specialty Start Date End Date Ida Hatfield PA-C [address] [place] [address] PCP - General Family Medicine 09/23/20 Geodetic Technician Relationship Specialty Start Date End Date Ida Hatfield PA-C [address] [place] [address] PCP - General Family Medicine 09/23/20 Geodetic Technician Relationship Specialty Start Date End Date Ida Htafield PA-C [address] [facility] [place] [address] PCP - General Family Medicine 09/23/20 Geodetic Technician Relationship Specialty Start Date End Date Ida Hatfield PA-C [address] [facility] [place] [place] [address] PCP - General Family Medicine 09/23/20 Geodetic Technician Relationship Specialty Start Date End Date Ida Hatfield PA-C [address] [place] [address] PCP - General Family Medicine 09/23/20 Geodetic Technician Relationship Specialty Start Date End Date Ida Hatfield PA-C [address] [place] [address] PCP - General Family Medicine 09/23/20 Team Status: Inactive Member Role Status KRISTI Peterson Primary Care Provider Active Dr. Lindy Blanco , DO Emergency Provider Active Geodetic Technician Relationship Specialty Start Date End Date Ida Hatfield PA-C [address] [place] [address] PCP - General Family Medicine 09/23/20 Geodetic Technician Relationship Specialty Start Date End Date Ida Hatfield PA-C [address] [place] [address] PCP - General Family Medicine 09/23/20 Geodetic Technician Relationship Specialty Start Date End Date Ida Hatfield PA-C [address] [place] [address] PCP - General Family Medicine 09/23/20 Geodetic Technician Relationship Specialty Start Date End Date Ida Hatfield PA-C [address] [place] [address] PCP - General Family Medicine 09/23/20 Geodetic Technician Relationship Specialty Start Date End Date Ida Hatfield PA-C [address] [place] [address] PCP - General Family Medicine 09/23/20 Geodetic Technician Relationship Specialty Start Date End Date Ida Hatfield PA-C [address] [place] [address] PCP - General Family Medicine 09/23/20 Geodetic Technician Relationship Specialty Start Date End Date Rina Hatfield PA-C PCP - General Family Medicine 09/23/20 Geodetic Technician Relationship Specialty Start Date End Date Karla Baron, CORRECTIONS IDENTIFICATION TECHNICIAN.HOTEL RESERVATIONIST [address] [place] [address] PCP - General Family Medicine 01/02/24 Geodetic Technician Relationship Specialty Start Date End Date Karla Baron, CORRECTIONS IDENTIFICATION TECHNICIAN.HOTEL RESERVATIONIST [address] [place] [address] PCP - General Family Medicine 01/02/24 Danae Fuentes, CORRECTIONS IDENTIFICATION TECHNICIAN.HOTEL RESERVATIONIST [address] [place] [address] Stock Saw Operator Family Medicine 01/13/24 Aamir Meade MD [address] [place] [address] Stock Saw Operator Family Medicine 01/13/24 Geodetic Technician Relationship Specialty Start Date End Date Karla Baron, CORRECTIONS IDENTIFICATION TECHNICIAN.HOTEL RESERVATIONIST [address] [facility] [place] [address] PCP - General Family Medicine 01/02/24 Danae Fuentes, CORRECTIONS IDENTIFICATION TECHNICIAN.HOTEL RESERVATIONIST [address] [place] [place] [address] Stock Saw Operator Family Medicine 01/13/24 Aamir Meade MD [address] [facility] [place] [address] [facility] 01/13/24 Geodetic Technician Relationship Specialty Start Date End Date Karla Baron, CORRECTIONS IDENTIFICATION TECHNICIAN.HOTEL RESERVATIONIST [address] [facility] [place] [address] PCP - General Family Medicine 01/02/24 Danae Fuentes, CORRECTIONS IDENTIFICATION TECHNICIAN.HOTEL RESERVATIONIST [address] [place] [place] [address] Stock Saw Operator Family Medicine 01/13/24 Aamir Meade MD [address] [facility] [place] [address] [facility] 01/13/24 Geodetic Technician Relationship Specialty Start Date End Date Karla Baron, CORRECTIONS IDENTIFICATION TECHNICIAN.HOTEL RESERVATIONIST [address] [place] [address] PCP - General Family Medicine 01/02/24 Danae Fuentes, CORRECTIONS IDENTIFICATION TECHNICIAN.HOTEL RESERVATIONIST [address] [place] [place] [address] Stock Saw Operator Family Medicine 01/13/24 Aamir Meade MD [address] [facility] [place] [address] Stock Saw Operator Family Medicine 01/13/24 Geodetic Technician Relationship Specialty Start Date End Date Karla Baron APRN.HOTEL RESERVATIONIST [address] [facility] [place] [address] PCP - General Family Medicine 01/02/24 Danae Fuentes APRN.HOTEL RESERVATIONIST [address] [facility] [place] [place] [address] Stock Saw Operator Family Medicine 01/13/24 Aamir Meade MD [address] [facility] [place] [address] Stock Saw Operator Family Medicine 01/13/24 Geodetic Technician Relationship Specialty Start Date End Date Karla Baron APRN.HOTEL RESERVATIONIST [address] [facility] [place] [address] PCP - General Family Medicine 01/02/24 Danae Fuentes APRN.HOTEL RESERVATIONIST [address] [facility] [place] [address] Stock Saw Operator Family Medicine 01/13/24 Aamir Meade MD [address] [facility] [place] [address] Stock Saw Operator Family Medicine 01/13/24 Geodetic Technician Relationship Specialty Start Date End Date Karla Baron APRN.HOTEL RESERVATIONIST [address] [facility] [place] [address] PCP - General Family Medicine 01/02/24 Danae Fuentes APRN.HOTEL RESERVATIONIST [address] [place] [address] Stock Saw Operator Family Medicine 01/13/24 Aamir Meade MD [address] [facility] [place] [address] Stock Saw Operator Family Medicine 01/13/24 Geodetic Technician Relationship Specialty Start Date End Date Karla Baron APRN.HOTEL RESERVATIONIST [address] [facility] [place] [address] PCP - General Family Medicine 01/02/24 Danae Fuentes APRN.HOTEL RESERVATIONIST [address] [place] [address] Stock Saw Operator Family Medicine 01/13/24 Aamir Meade MD [address] [place] [address] Stock Saw Operator Family Medicine 01/13/24 Geodetic Technician Relationship Specialty Start Date End Date Karla Baron APRN.HOTEL RESERVATIONIST [address] [place] [address] PCP - General Family Medicine 01/02/24 Danae Fuentes CORRECTIONS IDENTIFICATION TECHNICIAN.HOTEL RESERVATIONIST [address] [place] [address] Stock Saw Operator Family Medicine 01/13/24 Aamir Meade MD [address] [place] [address] Stock Saw Operator Family Medicine 01/13/24 Geodetic Technician Relationship Specialty Start Date End Date Karla Baron APRN.HOTEL RESERVATIONIST [address] [place] [address] PCP - General Family Medicine 01/02/24 Danae Fuentes APRN.CNP [address] [place], [place] [address] [facility] 01/13/24 04/28/24 Aamir Meade MD [address] [place], [place] [address] [facility] 01/13/24 04/28/24 Team Status: Active Member Role Status Dates Karla Baron STAGE MANAGER, STAGE MANAGER-C Primary Care Provider Active Team Status: Inactive Member Role Status Dates Karla Baron STAGE MANAGER, STAGE MANAGER-C Primary Care Provider Active Start: January 30, 2024 End: January 30, 2024 Dr. Lindy Blanco DO Attending Provider Active S tart: January 30, 2024 End: January 30, 2024 Dr. Lindy Blanco DO Emergency Provider Active S tart: January 30, 2024 End: January 30, 2024 Team Status: Inactive Member Role Status Dates Karla Baron NP, STAGE MANAGER-C Primary Care Provider Active Start: February 11, 2024 End: February 11, 2024 Dr. Mello Briceño DO Attending Provider Active Start: February 11, 2024 End: February 11, 2024 Dr. Mello Briceño DO Emergency Provider Active Start: February 11, 2024 End: February 11, 2024 Team Status: Inactive Member Role Status Dates Karla Baron NP, STAGE MANAGER-C Primary Care Provider Active Start: February 18, 2024 End: February 18, 2024 Dr. Justice Johnson MD Attending Provider Active Start: February 18, 2024 End: February 18, 2024 Dr. Justice Johnson MD Referring Provider Active Start: February 18, 2024 End: February 18, 2024 Team Status: Inactive Member Role Status Dates Karla Baron STAGE MANAGER, STAGE MANAGER-C Primary Care Provider Active Start: May 18, 2024 End: May 18, 2024 Dr. Lucien Matthews , Emergency Provider Active Start: May 18, 2024 End: May 18, 2024 Geodetic Technician Relationship Specialty Start Date End Date Karla Baron APRN.HOTEL RESERVATIONIST [address] [place] [address] PCP - General Family Medicine 01/02/24 Geodetic Technician Relationship Specialty Start Date End Date Karla Baron APRN.HOTEL RESERVATIONIST [address] [place] [address] PCP - General Family Medicine 01/02/24 Team Status: Inactive Member Role Status Dates Karla Baron STAGE MANAGER, STAGE MANAGER-C Primary Care Provider Active Start: May 18, 2024 End: May 18, 2024 Dr. Lucien Matthews DO Attending Provider Active Start: May 18, 2024 End: May 18, 2024 Dr. Lucien Matthews DO Emergency Provider Active Start: May 18, 2024 End: May 18, 2024 Team Status: Inactive Member Role Status Dates Karla Baron STAGE MANAGER, STAGE MANAGER-C Primary Care Provider Active Start: June 03, 2024 End: June 03, 2024 Karla Baron NP, STAGE MANAGER-C Referring Provider Active Start: June 03, 2024 End: June 03, 2024 KRISTI Garza Attending Provider Active Star t: June 03, 2024 End: June 03, 2024 Team Status: Inactive Member Role Status Dates Karla Baron STAGE MANAGER, STAGE MANAGER-C Primary Care Provider Active Start: June 05, 2024 End: June 05, 2024 KRISTI Garza Attending Provider Active Star t: June 05, 2024 End: June 05, 2024 KRISTI Garza Referring Provider Active Star t: June 05, 2024 End: June 05, 2024 Team Status: Active Member Role Status Dates Karla Baron STAGE MANAGER, STAGE MANAGER-C Primary Care Provider Active Start: June 05, 2024 Dr. Mello Demarco MD Attending Provider Active S tart: June 05, 2024 KRISTI Garza Referring Provider Active Star t: June 05, 2024 Team Status: Inactive Member Role Status Dates Karla Baron STAGE MANAGER, STAGE MANAGER-C Primary Care Provider Active Start: July 03, 2024 End: July 03, 2024 KRISTI Garza Attending Provider Active Star t: July 03, 2024 End: July 03, 2024 KRISTI Garza Referring Provider Active Star t: July 03, 2024 End: July 03, 2024 Team Status: Inactive Member Role Status Dates Karla Haagen STAGE MANAGER, STAGE MANAGER-C Primary Care Provider Active Start: July 17, 2024 End: July 17, 2024 Karla Haagen STAGE MANAGER, STAGE MANAGER-C Referring Provider Active Start: July 17, 2024 End: July 17, 2024 Dr. Mello Demarco MD Attending Provider Active S tart: July 17, 2024 End: July 17, 2024 Team Status: Active Member Role Status Dates Karla Hachayo STAGE MANAGER, STAGE MANAGER-C Primary Care Provider Active Start: July 24, 2024 Dr. Chandni Fitzgerald MD Attending Provider Active Start: July 24, 2024 Dr. Chandni Fitzgerald MD Referring Provider Active Start: July 24, 2024 Team Status: Inactive Member Role Status Dates Karla Hachayo STAGE MANAGER, STAGE MANAGER-C Primary Care Provider Active Start: July 29, 2024 End: July 29, 2024 Dr. Nilesh Mccullough MD Emergency Provider Active Start: July 29, 2024 End: July 29, 2024 Team Status: Inactive Member Role Status Dates Karla Haagen STAGE MANAGER, STAGE MANAGER-C Primary Care Provider Active Start: July 30, 2024 End: July 30, 2024 Karla Haagen STAGE MANAGER, STAGE MANAGER-C Referring Provider Active Start: July 30, 2024 End: July 30, 2024 Dr. Kp Puentes MD Attending Provider Active S tart: July 30, 2024 End: July 30, 2024 Team Status: Active Member Role/Relationship Status Dates Karla Haagen STAGE MANAGER, STAGE MANAGER-C Primary Care Provider Active Team Status: Inactive Member Role/Relationship Status Dates Karla Haagen STAGE MANAGER, STAGE MANAGER-C Primary Care Provider Active Start: May 18, 2024 End: May 18, 2024 Dr. Lucien Matthews DO Attending Provider Active Start: May 18, 2024 End: May 18, 2024 Dr. Lucien Matthews DO Emergency Provider Active Start: May 18, 2024 End: May 18, 2024 Team Status: Inactive Member Role/Relationship Status Dates Karla Haagen STAGE MANAGER, STAGE MANAGER-C Primary Care Provider Active Start: June 03, 2024 End: June 03, 2024 Karla Baron NP, STAGE MANAGER-C Referring Provider Active Start: June 03, 2024 End: June 03, 2024 KRISTI Garza Attending Provider Active Star t: June 03, 2024 End: June 03, 2024 Team Status: Inactive Member Role/Relationship Status Dates Karla Baron STAGE MANAGER, STAGE MANAGER-C Primary Care Provider Active Start: June 05, 2024 End: June 05, 2024 KRISTI Garza Attending Provider Active Star t: June 05, 2024 End: June 05, 2024 KRISTI Garza Referring Provider Active Star t: June 05, 2024 End: June 05, 2024 Team Status: Active Member Role/Relationship Status Dates Karla Baron STAGE MANAGER, STAGE MANAGER-C Primary Care Provider Active Start: June 05, 2024 Dr. Mello Demarco MD Attending Provider Active S tart: June 05, 2024 KRISTI Garza Referring Provider Active Star t: June 05, 2024 Team Status: Inactive Member Role/Relationship Status Dates Karla Baron STAGE MANAGER, STAGE MANAGER-C Primary Care Provider Active Start: July 03, 2024 End: July 03, 2024 KRISTI Garza Attending Provider Active Star t: July 03, 2024 End: July 03, 2024 KRISTI Garza Referring Provider Active Star t: July 03, 2024 End: July 03, 2024 Team Status: Inactive Member Role/Relationship Status Dates Karla Baron STAGE MANAGER, STAGE MANAGER-C Primary Care Provider Active Start: July 17, 2024 End: July 17, 2024 Karla Baron STAGE MANAGER, STAGE MANAGER-C Referring Provider Active Start: July 17, 2024 End: July 17, 2024 Dr. Mello Demarco MD Attending Provider Active S tart: July 17, 2024 End: July 17, 2024 Team Status: Inactive Member Role/Relationship Status Dates Karla Baron STAGE MANAGER, STAGE MANAGER-C Primary Care Provider Active Start: July 24, 2024 End: July 24, 2024 Dr. Chandni Fitzgerald MD Attending Provider Active Start: July 24, 2024 End: July 24, 2024 Dr. Chandni Fitzgerald MD Referring Provider Active Start: July 24, 2024 End: July 24, 2024 Team Status: Inactive Member Role/Relationship Status Dates Karla Baron STAGE MANAGER, STAGE MANAGER-C Primary Care Provider Active Start: July 29, 2024 End: July 29, 2024 Dr. Nilesh Mccullough MD Emergency Provider Active Start: July 29, 2024 End: July 29, 2024 Team Status: Inactive Member Role/Relationship Status Dates Karla Baron STAGE MANAGER, STAGE MANAGER-C Primary Care Provider Active Start: July 30, 2024 End: July 30, 2024 Karla Baron STAGE MANAGER, STAGE MANAGER-C Referring Provider Active Start: July 30, 2024 End: July 30, 2024 Dr. Kp Puentes MD Attending Provider Active S tart: July 30, 2024 End: July 30, 2024 Team Status: Inactive Member Role/Relationship Status Dates Karla Baron STAGE MANAGER, STAGE MANAGER-C Primary Care Provider Active Start: July 29, 2024 End: July 29, 2024 Dr. Nilesh Mccullough MD Attending Provider Active Start: July 29, 2024 End: July 29, 2024 Dr. Nilesh Mccullough MD Emergency Provider Active Start: July 29, 2024 End: July 29, 2024 Team Status: Inactive Member Role/Relationship Status Dates Karla Baron STAGE MANAGER, STAGE MANAGER-C Primary Care Provider Active Start: August 04, 2024 End: August 04, 2024 Karla Baron STAGE MANAGER, STAGE MANAGER-C Referring Provider Active Start: August 04, 2024 End: August 04, 2024 Akira Negrete MD Attending Provider Active St art: August 04, 2024 End: August 04, 2024 Geodetic Technician Relationship Specialty Start Date End Date Karla Baron APRN.HOTEL RESERVATIONIST [address] [place] [address] PCP - General Family Medicine 01/02/24 Team Status: Inactive Member Role/Relationship Status Dates Karla Baron STAGE MANAGER, STAGE MANAGER-C Primary Care Provider Active Start: August 15, [...] Active Member Role/Relationship Status Dates Karla Baron STAGE MANAGER, STAGE MANAGER-C Primary Care Provider Active Start: August 15, 2024 Dr. Kp Puentes MD Attending Provider Active S tart: August 15, 2024 Team Status: Active Member Role/Relationship Status Dates Karla Baron STAGE MANAGER, STAGE MANAGER-C Primary Care Provider Active Start: August 15, 2024 Manuela Bojorquez STAGE MANAGER, STAGE MANAGER-C Attending Provider Active Start: August 15, 2024 Team Status: Inactive Member Role/Relationship Status Dates Karla Baron STAGE MANAGER, STAGE MANAGER-C Primary Care Provider Active Start: August 25, 2024 End: August 25, 2024 Dr. Kp Puentes MD Attending Provider Active S tart: August 25, 2024 End: August 25, 2024 Dr. Kp Puentes MD Referring Provider Active S tart: August 25, 2024 End: August 25, 2024 Geodetic Technician Relationship Specialty Start Date End Date Karla Baron APRN.HOTEL RESERVATIONIST [address] [place] [address] PCP - General Family Medicine 01/02/24 Team Status: Inactive Member Role/Relationship Status Dates Karla Baron STAGE MANAGER, STAGE MANAGER-C Primary Care Provider Active Start: September 03, 2024 End: September 03, 2024 Karla Baron STAGE MANAGER, STAGE MANAGER-C Referring Provider Active Start: September 03, 2024 End: September 03, 2024 Dr. Mello Demarco MD Attending Provider Active S tart: September 03, 2024 End: September 03, 2024 Team Status: Inactive Member Role/Relationship Status Dates Karla Baron STAGE MANAGER, STAGE MANAGER-C Primary Care Provider Active Start: June 03, 2024 End: June 03, 2024 Karla Baron STAGE MANAGER, STAGE MANAGER-C Referring Provider Active Start: June 03, 2024 End: June 03, 2024 KRISTI Garza Attending Provider Active Star t: June 03, 2024 End: June 03, 2024 Team Status: Inactive Member Role/Relationship Status Dates Karla Baron STAGE MANAGER, STAGE MANAGER-C Primary Care Provider Active Start: June 05, 2024 End: June 05, 2024 KRISTI Garza Attending Provider Active Star t: June 05, 2024 End: June 05, 2024 KRISTI Garza Referring Provider Active Star t: June 05, 2024 End: June 05, 2024 Team Status: Active Member Role/Relationship Status Dates Karla Baron STAGE MANAGER, STAGE MANAGER-C Primary Care Provider Active Start: June 05, 2024 Dr. Mello Demarco MD Attending Provider Active S tart: June 05, 2024 KRISTI Garza Referring Provider Active Star t: June 05, 2024 Team Status: Inactive Member Role/Relationship Status Dates Karla Baron STAGE MANAGER, STAGE MANAGER-C Primary Care Provider Active Start: July 03, 2024 End: July 03, 2024 KRISTI Garza Attending Provider Active Star t: July 03, 2024 End: July 03, 2024 KRISTI aGrza Referring Provider Active Star t: July 03, 2024 End: July 03, 2024 Team Status: Inactive Member Role/Relationship Status Dates Karla Baron STAGE MANAGER, STAGE MANAGER-C Primary Care Provider Active Start: July 17, 2024 End: July 17, 2024 Karla Baron STAGE MANAGER, STAGE MANAGER-C Referring Provider Active Start: July 17, 2024 End: July 17, 2024 Dr. Mello Demarco MD Attending Provider Active S tart: July 17, 2024 End: July 17, 2024 Team Status: Inactive Member Role/Relationship Status Dates Karla Baron STAGE MANAGER, STAGE MANAGER-C Primary Care Provider Active Start: July 24, 2024 End: July 24, 2024 Dr. Chandni Fitzgerald MD Attending Provider Active Start: July 24, 2024 End: July 24, 2024 Dr. Chandni Fitzgerald MD Referring Provider Active Start: July 24, 2024 End: July 24, 2024 Team Status: Inactive Member Role/Relationship Status Dates Karla Baron STAGE MANAGER, STAGE MANAGER-C Primary Care Provider Active Start: July 29, 2024 End: July 29, 2024 Dr. Nilesh Mccullough MD Attending Provider Active Start: July 29, 2024 End: July 29, 2024 Dr. Nilesh Mccullough MD Emergency Provider Active Start: July 29, 2024 End: July 29, 2024 Team Status: Inactive Member Role/Relationship Status Dates Karla Tod STAGE MANAGER, STAGE MANAGER-C Primary Care Provider Active Start: July 30, 2024 End: July 30, 2024 Karla Baron STAGE MANAGER, STAGE MANAGER-C Referring Provider Active Start: July 30, 2024 End: July 30, 2024 Dr. Kp Puentes MD Attending Provider Active S tart: July 30, 2024 End: July 30, 2024 Team Status: Inactive Member Role/Relationship Status Dates Karla Haagen STAGE MANAGER, STAGE MANAGER-C Primary Care Provider Active Start: August 04, 2024 End: August 04, 2024 Karla Baron STAGE MANAGER, STAGE MANAGER-C Referring Provider Active Start: August 04, 2024 End: August 04, 2024 Akira Negrete MD Attending Provider Active St art: August 04, 2024 End: August 04, 2024 Team Status: Inactive Member Role/Relationship Status Dates Karla Hachayo STAGE MANAGER, STAGE MANAGER-C Primary Care Provider Active Start: August 15, [...] Active Member Role/Relationship Status Dates Karla Baron STAGE MANAGER, STAGE MANAGER-C Primary Care Provider Active Start: August 15, 2024 Dr. Kp Puentes MD Attending Provider Active S tart: August 15, 2024 Team Status: Active Member Role/Relationship Status Dates Karla Baron STAGE MANAGER, STAGE MANAGER-C Primary Care Provider Active Start: August 15, 2024 Manuela Bojorquez STAGE MANAGER, STAGE MANAGER-C Attending Provider Active Start: August 15, 2024 Team Status: Inactive Member Role/Relationship Status Dates Karla Hachayo STAGE MANAGER, STAGE MANAGER-C Primary Care Provider Active Start: August 25, 2024 End: August 25, 2024 Dr. Kp Puentes MD Attending Provider Active S tart: August 25, 2024 End: August 25, 2024 Dr. Kp Puentes MD Referring Provider Active S tart: August 25, 2024 End: August 25, 2024 Team Status: Inactive Member Role/Relationship Status Dates Karla Baron STAGE MANAGER, STAGE MANAGER-C Primary Care Provider Active Start: September 03, 2024 End: September 03, 2024 Karla Baron STAGE MANAGER, STAGE MANAGER-C Referring Provider Active Start: September 03, 2024 End: September 03, 2024 Dr. Mello Demarco MD Attending Provider Active S tart: September 03, 2024 End: September 03, 2024 Team Status: Active Member Role/Relationship Status Dates Karla Baron STAGE MANAGER, STAGE MANAGER-C Primary Care Provider Active Start: September 17, [...] Inactive Member Role/Relationship Status Dates Karla Baron STAGE MANAGER, STAGE MANAGER-C Primary Care Provider Active Start: September 17, [...] Active Member Role/Relationship Status Dates Karla Baron STAGE MANAGER, STAGE MANAGER-C Primary Care Provider Active Start: September 18, 2024 Dr. Mello Demarco MD Admit Provider Active Start : September 18, 2024 Dr. Mello Demarco MD Referring Provider Active S tart: September 18, 2024 Dr. Mello Demarco MD Other Provider Active Start : September 18, 2024 KRISTI Garza Attending Provider Active Star t: September 18, 2024 Geodetic Technician Relationship Specialty Start Date End Date Karla Baron APRN.HOTEL RESERVATIONIST [address] [place] [address] PCP - General Family Medicine 01/02/24 Team Status: Inactive Member Role/Relationship Status Dates Karla Baron STAGE MANAGER, STAGE MANAGER-C Primary Care Provider Active Start: July 03, 2024 End: July 03, 2024 KRISTI Garza Attending Provider Active Star t: July 03, 2024 End: July 03, 2024 KRISTI Garza Referring Provider Active Star t: July 03, 2024 End: July 03, 2024 Team Status: Inactive Member Role/Relationship Status Dates Karla Hachayo STAGE MANAGER, STAGE MANAGER-C Primary Care Provider Active Start: July 17, 2024 End: July 17, 2024 Karla Baron STAGE MANAGER, STAGE MANAGER-C Referring Provider Active Start: July 17, 2024 End: July 17, 2024 Dr. Mello Demarco MD Attending Provider Active S tart: July 17, 2024 End: July 17, 2024 Team Status: Inactive Member Role/Relationship Status Dates Karla Baron STAGE MANAGER, STAGE MANAGER-C Primary Care Provider Active Start: July 24, 2024 End: July 24, 2024 Dr. Chandni Fitzgerald MD Attending Provider Active Start: July 24, 2024 End: July 24, 2024 Dr. Chandni Fitzgerald MD Referring Provider Active Start: July 24, 2024 End: July 24, 2024 Team Status: Inactive Member Role/Relationship Status Dates Karla Baron STAGE MANAGER, STAGE MANAGER-C Primary Care Provider Active Start: July 29, 2024 End: July 29, 2024 Dr. Nilesh Mccullough MD Attending Provider Active Start: July 29, 2024 End: July 29, 2024 Dr. Nilesh Mccullough MD Emergency Provider Active Start: July 29, 2024 End: July 29, 2024 Team Status: Inactive Member Role/Relationship Status Dates Karla Baron STAGE MANAGER, STAGE MANAGER-C Primary Care Provider Active Start: July 30, 2024 End: July 30, 2024 Karla Baron STAGE MANAGER, STAGE MANAGER-C Referring Provider Active Start: July 30, 2024 End: July 30, 2024 Dr. Kp Puentes MD Attending Provider Active S tart: July 30, 2024 End: July 30, 2024 Team Status: Inactive Member Role/Relationship Status Dates Karla Haagen STAGE MANAGER, STAGE MANAGER-C Primary Care Provider Active Start: August 04, 2024 End: August 04, 2024 Karla Baron STAGE MANAGER, STAGE MANAGER-C Referring Provider Active Start: August 04, 2024 End: August 04, 2024 Akira Negrete MD Attending Provider Active St art: August 04, 2024 End: August 04, 2024 Team Status: Inactive Member Role/Relationship Status Dates Karla Baron STAGE MANAGER, STAGE MANAGER-C Primary Care Provider Active Start: August 15, [...] Active Member Role/Relationship Status Dates Karla Baron STAGE MANAGER, STAGE MANAGER-C Primary Care Provider Active Start: August 15, 2024 Dr. Kp Puentes MD Attending Provider Active S tart: August 15, 2024 Team Status: Active Member Role/Relationship Status Dates Karla Baron STAGE MANAGER, STAGE MANAGER-C Primary Care Provider Active Start: August 15, 2024 Manuela Bojorquez STAGE MANAGER, STAGE MANAGER-C Attending Provider Active Start: August 15, 2024 Team Status: Inactive Member Role/Relationship Status Dates Karla Hachayo STAGE MANAGER, STAGE MANAGER-C Primary Care Provider Active Start: August 25, 2024 End: August 25, 2024 Dr. Kp Puentes MD Attending Provider Active S tart: August 25, 2024 End: August 25, 2024 Dr. Kp Puentes MD Referring Provider Active S tart: August 25, 2024 End: August 25, 2024 Team Status: Inactive Member Role/Relationship Status Dates Karla Hachayo STAGE MANAGER, STAGE MANAGER-C Primary Care Provider Active Start: September 03, 2024 End: September 03, 2024 Karla Baron STAGE MANAGER, STAGE MANAGER-C Referring Provider Active Start: September 03, 2024 End: September 03, 2024 Dr. Mello Demarco MD Attending Provider Active S tart: September 03, 2024 End: September 03, 2024 Team Status: Active Member Role/Relationship Status Dates Karla Baron STAGE MANAGER, STAGE MANAGER-C Primary Care Provider Active Start: September 17, [...] Inactive Member Role/Relationship Status Dates Karla Baron STAGE MANAGER, STAGE MANAGER-C Primary Care Provider Active Start: September 17, [...] Active Member Role/Relationship Status Dates Karla Baron STAGE MANAGER, STAGE MANAGER-C Primary Care Provider Active Start: September 18, 2024 Dr. Mello Demarco MD Admit Provider Active Start : September 18, 2024 Dr. Mello Demarco MD Referring Provider Active S tart: September 18, 2024 Dr. Mello Demarco MD Other Provider Active Start : September 18, 2024 KRISTI Garza Attending Provider Active Star t: September 18, 2024 Team Status: Inactive Member Role/Relationship Status Dates Karla Baron STAGE MANAGER, STAGE MANAGER-C Primary Care Provider Active Start: September 23, 2024 End: September 23, 2024 Karla Baron STAGE MANAGER, STAGE MANAGER-C Referring Provider Active Start: September 23, 2024 End: September 23, 2024 KRISTI Garza Attending Provider Active Star t: September 23, 2024 End: September 23, 2024 Team Status: Inactive Member Role/Relationship Status Dates Karla Haagen STAGE MANAGER, STAGE MANAGER-C Primary Care Provider Active Start: October 09, 2024 End: October 09, 2024 Karla Baron STAGE MANAGER, STAGE MANAGER-C Referring Provider Active Start: October 09, 2024 End: October 09, 2024 KRISTI Garza Attending Provider Active Star t: October 09, 2024 End: October 09, 2024 Team Status: Active Member Role/Relationship Status Dates Karla Baron STAGE MANAGER, STAGE MANAGER-C Primary care physician Active Team Status: Inactive Member Role/Relationship Status Dates Karla Baron STAGE MANAGER, STAGE MANAGER-C Primary care physician Active Start: August 04, 2024 End: August 04, 2024 Karla Baron STAGE MANAGER, STAGE MANAGER-C Referring Provider Active Start: August 04, 2024 End: August 04, 2024 Akira Negrete MD Attending physician Active S tart: August 04, 2024 End: August 04, 2024 Team Status: Inactive Member Role/Relationship Status Dates Karla Baron STAGE MANAGER, STAGE MANAGER-C Primary care physician Active Start: August 15, 2024 End: August 15, 2024 Dr. Kp Puentes MD Attending physician Active Start: August 15, 2024 End: August 15, 2024 Dr. Kp Puentes MD Referring Provider Active S tart: August 15, 2024 End: August 15, 2024 Dr. Mello Demarco MD Nurse Practitioner Active S tart: August 15, 2024 End: August 15, 2024 Team Status: Active Member Role/Relationship Status Dates Karla Baron STAGE MANAGER, STAGE MANAGER-C Primary care physician Active Start: August 15, 2024 Dr. Kp Puentes MD Attending physician Active Start: August 15, 2024 Team Status: Active Member Role/Relationship Status Dates Karla Baron STAGE MANAGER, STAGE MANAGER-C Primary care physician Active Start: August 15, 2024 Manuela Bojorquez STAGE MANAGER, STAGE MANAGER-C Attending physician Active Start: August 15, 2024 Team Status: Inactive Member Role/Relationship Status Dates Karla Baron STAGE MANAGER, STAGE MANAGER-C Primary care physician Active Start: August 25, 2024 End: August 25, 2024 Dr. Kp Puentes MD Attending physician Active Start: August 25, 2024 End: August 25, 2024 Dr. Kp Puentes MD Referring Provider Active S tart: August 25, 2024 End: August 25, 2024 Team Status: Inactive Member Role/Relationship Status Dates Karla Baron STAGE MANAGER, STAGE MANAGER-C Primary care physician Active Start: September 03, 2024 End: September 03, 2024 Karla Baron STAGE MANAGER, STAGE MANAGER-C Referring Provider Active Start: September 03, 2024 End: September 03, 2024 Dr. Mello Demarco MD Attending physician Active Start: September 03, 2024 End: September 03, 2024 Team Status: Active Member Role/Relationship Status Dates Karla Baron STAGE MANAGER, STAGE MANAGER-C Primary care physician Active Start: September 17, 2024 Dr. Mello Demarco MD Admitting physician Active Start: September 17, 2024 Dr. Mello Demarco MD Attending physician Active Start: September 17, 2024 Dr. Mello Demarco MD Referring Provider Active S tart: September 17, 2024 Dr. Mello Demarco MD Nurse Practitioner Active S tart: September 17, 2024 Team Status: Inactive Member Role/Relationship Status Dates Karla Baron STAGE MANAGER, STAGE MANAGER-C Primary care physician Active Start: September 17, [...] Active Member Role/Relationship Status Dates Karla Baron STAGE MANAGER, STAGE MANAGER-C Primary care physician Active Start: September 18, 2024 Dr. Mello Demarco MD Admitting physician Active Start: September 18, 2024 Dr. Mello Demarco MD Referring Provider Active S tart: September 18, 2024 Dr. Mello Demarco MD Nurse Practitioner Active S tart: September 18, 2024 KRISTI Garza Attending physician Active Sta rt: September 18, 2024 Team Status: Inactive Member Role/Relationship Status Dates Karla Baron STAGE MANAGER, STAGE MANAGER-C Primary care physician Active Start: September 23, 2024 End: September 23, 2024 Karla Baron STAGE MANAGER, STAGE MANAGER-C Referring Provider Active Start: September 23, 2024 End: September 23, 2024 KRISTI Garza Attending physician Active Sta rt: September 23, 2024 End: September 23, 2024 Team Status: Inactive Member Role/Relationship Status Dates Karla Baron STAGE MANAGER, STAGE MANAGER-C Primary care physician Active Start: October 09, 2024 End: October 09, 2024 Karla Baron NP, STAGE MANAGER-C Referring Provider Active Start: October 09, 2024 End: October 09, 2024 KRISTI Garza Attending physician Active Sta rt: October 09, 2024 End: October 09, 2024 Team Status: Inactive Member Role/Relationship Status Dates Karla Baron NP, STAGE MANAGER-C Primary care physician Active Start: November 14, [...] section and content) DATE CREATED AUTHOR 11/29/2024 [facility] DATE CREATED AUTHOR AUTHOR'S ORGANIZ ATION 12/15/2024 [facility] FOR RECORDS PERTAINING TO PATIENTS WHO [...] BE BASED ON THE PRIMARY CLINICAL RECORDS. [employer] provides no warranty or guarantee of the accuracy or completeness of information in this document.
--- NOTE | 2025-01-27 08:16 | HP.PCM_ITS ---
HPI - General HPI Narrative RAMONITA EL, is a 84 M who presents with RLE claudication. External iliac stenosis, SFA/pop occlusion. He has prior LLE iliac stent and femoral endart with sfa/pop occlusion and minimal symptoms. 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) 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 Atherosclerosis of coronary artery without angina pectoris Essential hypertension (~02/2022) Home Medications ?Medication ?Instructions ?Recorded ?Last Taken ?Type amlodipine 10 mg tablet 10 mg PO DAILY HYPERTENSION 05/02/16 01/27/25 History clopidogrel 75 mg tablet 75 mg PO DAILY BLOOD THINNER 05/02/16 01/27/25 History tamsulosin 0.4 mg capsule (Flomax) 0.4 mg PO QHS PROST ATE 05/02/16 09/17/24 History metoprolol tartrate 100 mg tablet 100 mg PO BID HTN 01/27/25 History pantoprazole 20 mg tablet,delayed 20 mg PO DAILY GERD 11/09/20 01/27/25 History release (Protonix) acetaminophen 500 mg tablet 500 mg PO Q4H PRN pain 03/01 Unknown History (Tylenol Extra Strength) losartan 25 mg tablet 25 mg PO QDAY bp 09/03/24 History brimonidine 0.2 % eye drops 1 drp ophthalmic (eye) BID pressure 09/05/24 09/17/24 History latanoprost 0.005 % eye drops 1 drp ophthalmic (eye) D AILY 09/05/24 09/17/24 History pressure timolol maleate 0.5 % eye drops 1 drp ophthalmic (eye) BID pressure 09/05/24 09/17/24 History Allergy/AdvReac Type Severity Reaction Status Date / Time cilostazol (From Pletal) Allergy Intermediate PT UNSURE Verified 01/21/25 11:07 OF REACTION lisinopril Allergy Intermediate PT UNSURE Verified 01/21/25 11:07 OF REACTION Penicillins Allergy Hives Verified 01/21/25 11:07 atorvastatin AdvReac Intermediate myalgia Verified 01/21/25 11:07 pravastatin AdvReac Intermediate myalgia Verified 01/21/25 11:07 Family History Mother Cancer Brother Heart disease Surgical History History of cystoscopy History of carotid endarterectomy Hx of cardiac cath History of colonoscopy History of angioplasty of peripheral vessel (09/28/09) History of coronary artery stent placement (08/10/06) Social History Smoking Status: Heavy Smoker (>10/day) alcohol intake: current alcohol intake frequency: a few times a month substance use type: does not use ROS Constitutional Constitutional: Denies chills, fever(s), frequent falls, lethargy or weakness Eyes Eyes: Denies blind spots, change in vision or loss of vision ENT HEENT: Denies bleeding gums, hoarseness or sore throat Cardiovascular Cardiovascular: Denies abdominal pain, bluish discoloration of hand/feet, chest pain with activity, claudication, cold extremities, cyanosis, dyspnea on exertion, erythema on extremities, irregular heart rhythm, leg edema, leg ulcers, numbness in extremities or weakness in extremities Respiratory/Chest Respiratory/Chest: Denies cough, excessive phlegm production, shortness of breath at rest, shortness of breath with exertion or wheezing Gastrointestinal Gastrointestinal: Denies anorexia, change in stool character, constipation, diarrhea, melena or rectal bleeding Genitourinary Genitourinary: Denies dysuria or hematuria Musculoskeletal Musculoskeletal: Denies abnormal gait Integumentary Integumentary: Reports other Details: ; Denies erythema, non-healing lesions or wounds Neurologic Neurologic: Denies abnormal speech, focal weakness, headache(s), loss of vision, numbness, paresthesias or sensory deficit Hematologic/Lymphatic Hematologic/Lymphatic: Denies easy bleeding, easy bruising or lymphadenopathy Patient's Goals Of Care . What would you like to achieve or improve as a result of your hospital stay?: w tf Vital Signs Vital Signs Vital Signs: Weight Weight: 158 lb Body Mass Index (BMI) 24.0 Physical Exam Const alert, oriented x3, no apparent distress and healthy appearing General Appearance: cooperative; Negative for combative or lethargic Orientation / Consciousness: awake Exam Limitations: no limitations HEENT Head and Scalp: normocephalic and atraumatic Eyes EOMs intact bilaterally General Eye: normal appearance of both eyes Neck full ROM General: trachea midline Resp normal respiratory effort and no use of accessory muscles Effort and Inspection: Negative for labored, stridor or audible wheezes Cardio regular rate and regular rhythm Back/Spine Cervical Spine: cervical ROM normal Extremity full ROM, normal capillary refill and no clubbing, cyanosis or edema Skin no rashes or lesions noted and no wounds Neuro oriented x3, CN's II-XII intact bilaterally, no focal motor deficits and no sensory deficits noted Psych thought process normal, cooperative, affect normal, speech normal and activity/motor behavior normal Results Lab / Micro Data 01/21/25 12:28 01/21/25 12:28 Assessment & Plan Assessment/Plan (1) Atheroscler of [place] artery of right leg with intermit claudication: PLAN: -angio possible intervention; stent iliac, attempt to cross sfa/pop
--- NOTE | 2025-01-27 14:48 | PCM.OPRPT ---
Operative Report (Standard) Operative Information Date of Procedure: 01/27/25 Pre-Operative Diagnosis: Atherosclerosis with claudication of the right lower extremity Post-Operative Diagnosis: Same Surgery/Procedure Performed: Aortogram, right lower extremity angiogram Intravascular ultrasound right common femoral artery, external iliac artery, common iliac artery Angioplasty and stent right external iliac artery assisted living manager: No Type of Anesthesia: Local and Sedation,Conscious Procedure Start Time: 08:30 Procedure Stop Time: 09:55 Select all DRAINS/GRAFTS/IMPLANTS that apply: Implanted device Implanted device details: [place] Viabahn 8 x 100 Estimated Blood Loss: 4 Specimen collected: No Description of surgery: HPI: The patient is an 84-year-old male with lifestyle-limiting claudication of the right lower extremity. He has failed conservative management and presents now for angiogram with possible intervention to treat his inflow iliac artery stenosis in an effort to optimize perfusion and potentially avoid infrainguinal bypass procedure. He has long segment SFA popliteal occlusion with poorly visualized tibial arteries on CT angiography so in addition we will be evaluating distal targets for a potential bypass if necessary. Description of procedure: Upon obtaining informed consent and verification correct patient procedure and site the patient was taken to the [facility] where he was positioned prepped and draped in usual sterile fashion. A timeout was performed and conscious sedation administered with Versed and fentanyl. Skin overlying the left artery was anesthetized 1% lidocaine the vessel accessed under ultrasound guidance with a micropuncture needle wire. This was then exchanged for micropuncture sheath through which injection iliofemoral angiograms performed revealing satisfactory position with no extravasation or dissection. Through the micropuncture sheath a J-wire was advanced and the micropuncture sheath exchanged for a short 7 Taiwanese sheath which did not track through the scar of his prior endarterectomy. This was then withdrawn and the tract dilated serially with 6 Taiwanese and 7 Taiwanese hydrophilic dilators. There continued to be difficulty advancing the 7 Taiwanese sheath so the 7 Taiwanese dilator was then readvanced and the J-wire exchanged for a glide advantage wire. The dilator was then withdrawn and the 7 Taiwanese sheath finally was successful tracking through the subcutaneous scar tissue and into the access vessel. Through this an Omni Flush catheter was advanced into the abdominal aorta and a digital subtraction aortogram pelvic angiograms performed. This revealed a small aortic aneurysm with minimal mural thrombus and moderate diffuse calcified atherosclerosis but no stenosis. The left common iliac artery was patent and ectatic with no significant stenosis. A previously placed left external leg artery stent had mild in-stent restenosis of with what appeared to be less than 30% and otherwise mild diffuse atherosclerosis. the right common iliac artery was patent and ectatic with scattered calcified atherosclerosis. The internal iliac artery was patent to large caliber vessel with scattered atherosclerosis. The external iliac artery had a long segment atherosclerosis which appeared to have severe stenosis at the distal one third of the vessel. The common femoral artery was patent normal caliber with calcified atherosclerosis but no stenosis. The Omni Flush catheter and glide advantage wire were then navigate into the contralateral leg system advancing to the distal external iliac artery. From this position sequential subtraction angiography the right lower extremity was performed. The profunda artery was patent proximally and had 2 dominant branches with the main profunda outflow vessel totally occluded approximately 5 cm distal to the origin with immediate reconstitution via large collaterals. The superficial femoral artery had a very small proximal component that was patent which appeared to be less than 1 cm in length. Beyond this there was total occlusion of the superficial femoral artery popliteal artery with reconstitution of the P2 segment. There was scattered atherosclerosis with no stenosis of the distal popliteal artery. The anterior tibial artery was the dominant outflow and was a large caliber vessel that had mild stenosis at its origin followed by a long segment relatively free of disease with just above the ankle vessel more irregular with stenosis and what appeared to be occlusion of the vessel at the ankle. The foot was perfused via multiple collateral vessels both from the anterior tibial artery as well as from collaterals originating higher in the lower leg. The peroneal artery and posterior tibial artery occluded proximally and the lower leg and did not have significant reconstitution distally. Given the appearance of the superficial femoral artery proximal It was felt that this was not a good candidate for attempted endovascular treatment. In addition with the artery disease profunda there was concern that if we manipulated the SFA origin we could compromise the profunda and put the patient in higher severity of arterial insufficiency. The external iliac artery lesion appeared amenable to endovascular treatment and had moderate calcification so the patient was then heparinized allowed to circulate for 3 minutes. The glide advantage wire was then readvanced to the catheter and the catheter withdrawn followed by exchange of the short 7 Taiwanese sheath for a 7 Taiwanese 40 Balkan sheath which is advanced over the aortic bifurcation to the distal aspect of the common iliac artery. From this position further subtraction angiography was performed confirming position relative to the internal iliac artery origin. Utilizing a quick cross catheter and the glide and wire we traverse the stenosis advancing her catheter into the distal common femoral artery. The glide advantage wire was exchanged for an 018 wire and the catheter withdrawn. Intravascular ultrasound probe was then advanced and recorded pullback performed of the common femoral artery, right external leg artery, right common iliac artery. This confirmed 81% stenosis of the distal external iliac artery and revealed length of surrounding atherosclerotic lesion with adjacent reference vessel sizing. An 8 mm x 40 Hale AngioSculpt balloon was then advanced to the distal aspect of the lesion and inflated to just less than nominal with adequate balloon expansion and no residual waist. Patient had significant discomfort with inflation so we did not further inflate to reach nominal. Given the patient's discomfort upon deflation of the balloon we performed subtraction angiography which did not reveal any extravasation or dissection and the patient's discomfort resolved. We then withdrew the balloon more proximally and treated the more proximal half of the diseased segment again inflated to subnominal due to patient discomfort and then deflating and withdrawn. Repeat angiography revealed dissection of the proximal aspect of the lesion with no extravasation and no significant residual stenosis. Given the appearance of the proximal vessel and the patient's significant discomfort it was felt that a covered stent was the safest option so a [place] Viabahn 8 mm x 10 Sub expanding covered stent was then advanced in the position and deployed. This was then postdilated with an 8 mm x 80 angioplasty balloon inflated to nominal, repositioned with repeat inflation, and then deflation withdrawn. Completion angiography revealed satisfactory result with no extravasation or residual stenosis or dissection. There is brisk contrast transit into the common femoral artery with no evidence of distal embolization. The long 7 Taiwanese sheath was exchanged for a short 7 Taiwanese sheath and a minx closure device deployed followed by 5 minutes of manual pressure until hemostasis was observed. The patient was then taken to the recovery area with plan discharge home after bed rest. Surgical Findings: See above Complications Complications: No
== END 2025-01-27 14:10 | disposition home or self-care (01) ==
PROVIDERS: PCP Registered Nurse; Referring Provider Surgery Trauma Surgery; Visit Provider Surgery Trauma Surgery
DX: T82.856A Stenosis of peripheral vascular stent, initial encounter (principal); J44.9 Chronic obstructive pulmonary disease, unspecified; K21.9 Gastro-esophageal reflux disease without esophagitis; I10 Essential (primary) hypertension; I25.10 Atherosclerotic heart disease of native coronary artery without angina pectoris; I71.9 Aortic aneurysm of unspecified site, without rupture; Z79.899 Other long term (current) drug therapy; F17.200 Nicotine dependence, unspecified, uncomplicated; I70.211 Atherosclerosis of native arteries of extremities with intermittent claudication, right leg; Z98.890 Other specified postprocedural states; Y71.8 Miscellaneous cardiovascular devices associated with adverse incidents, not elsewhere classified
CPT/HCPCS: 36200; 36245; 36415; 37221; 37252; 37253; 75625; 75710; 76937; 80048; 85027; 99152; 99153; C1725; C1753; C1760; C1769; C1874; Q9967; C1887; C1894